=== PATIENT | female | born 1970 | race Caucasian/White ===

== ENCOUNTER 2023-02-16 10:48 | Outpatient (OUT) | payer OTHER, SELFPAY ==
--- NOTE | 2023-02-16 | XR_ITS ---
The [address] [address] Patient Name: MEGHANA KEY MRN: [id number] date: 1970 Sex: F Assigned Patient Location: [facility] Current Patient Location: [facility] Accession/Order Number: [id number] Exam Date: 02/16/2023 10:50 Report Date: 02/16/2023 23:48 At the request of: TAMI HODGE Procedure: XR foot LT min 3V PROCEDURE: XR foot LT min 3V HISTORY: LEFT FOOT PAIN COMPARISON: None. FINDINGS: BONES:Mild bone hypertrophy along medial aspect of head of first metatarsal. Mild narrowing of the first metatarsophalangeal joint. SOFT TISSUES:No visible soft tissue swelling. EFFUSION:None visible. OTHER: Negative. XR/XR foot LT min 3V IMPRESSION: 1. Mild bunion formation consistent with patient history. 2. Mild degenerative changes of the first metatarsophalangeal joint. Electronically authenticated by: MASOOD COOK Date: 02/16/2023 23:48
== END 2023-02-16 10:49 | disposition home or self-care (01) ==
PROVIDERS: PCP Personal Emergency Response Attendant; Visit Provider Podiatrist Foot & Ankle Surgery
DX: M21.612 Bunion of left foot (principal)
CPT/HCPCS: 73630

== ENCOUNTER 2023-02-18 07:13 | Outpatient (OUT) | payer OTHER, SELFPAY ==
--- NOTE | 2023-02-18 08:20 | CA_ITS ---
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 (Right MYLENE 1.22, Left MYLENE 1.07) Electronically Signed On 02-19-2023 7:06:57 EST by EVI GRIFFIN
== END 2023-02-18 07:14 | disposition home or self-care (01) ==
LOC: CARD 07:16
PROVIDERS: PCP Personal Emergency Response Attendant; Visit Provider Podiatrist Foot & Ankle Surgery
DX: R09.89 Other specified symptoms and signs involving the circulatory and respiratory systems (principal)
CPT/HCPCS: 93923

== ENCOUNTER 2023-03-05 13:24 | Outpatient (OUT) | payer OTHER, SELFPAY ==
--- NOTE | 2023-03-05 13:25 | XR_ITS ---
The [address] [address] Patient Name: MEGHANA KEY MRN: [id number] date: 1970 Sex: F Assigned Patient Location: [facility] Current Patient Location: [facility] Accession/Order Number: [id number] Exam Date: 03/05/2023 14:22 Report Date: 03/05/2023 15:58 At the request of: TAMI HODGE Procedure: XR chest 2V EXAM: XR chest 2V HISTORY: Preop exam COMPARISON: 06/17/2022 TECHNIQUE: Upright PA and lateral chest x-ray FINDINGS: Pleural] changes are seen at the right apex secondary to prior surgery. [place] or sutures are present. A small amount of pleural and parenchymal scarring is also seen at the right lung base. No acute infiltrate, effusion or pneumothorax is identified. The osseous structures are grossly intact. XR/XR chest 2V IMPRESSION: Remote postsurgical changes are seen at the right apex and chronic changes are noted at the right lung base. There is no evidence of a focal infiltrate or cardiac decompensation, and the overall appearance of the chest is essentially unchanged. Electronically authenticated by: TAMI CHIRINOS Date: 03/05/2023 15:58
--- NOTE | 2023-03-05 13:25 | ECG_ITS ---
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
--- NOTE | 2023-03-05 14:16 | P.GSHP_ITS ---
History of Present Illness History of Present Illness Chief complaint: halux valgus left foot, halux rigidous Narrative: Patient presents for preadmission testing. Please see HPI from Dr. Lopez dated 02/16/2023. Review of Systems ROS Narrative Please see ROS from Dr. Lopez dated 02/16/2023. [facility] Medical History (Updated 03/05/23 @ 13:50 by Harleen Holden NP) Admission for pleural drainage tube placement ?Z46.82 - Encounter for fitting and adjustment of non-vascular catheter (ICD- 10) Anemia ?D64.9 - Anemia, unspecified (ICD-10) Anxiety ?F41.9 - Anxiety disorder, unspecified (ICD-10) Arthritis ?M19.90 - Unspecified osteoarthritis, unspecified site (ICD-10) Back pain ?M54.9 - Dorsalgia, unspecified (ICD-10) Chronic obstructive pulmonary disease ?J44.9 - Chronic obstructive pulmonary disease, unspecified (ICD-10) Coronary artery disease ?I25.10 - Atherosclerotic heart disease of [place] coronary artery without angina pectoris (ICD-10) Coronary vasospasm ?I20.1 - Angina pectoris with documented spasm (ICD-10) Costochondritis ?M94.0 - Chondrocostal junction syndrome [[place]] (ICD-10) COVID-19 ?U07.1 - COVID-19 (ICD-10) Depression ?F32.A - Depression, unspecified (ICD-10) Dyspnea on exertion ?R06.09 - Other forms of dyspnea (ICD-10) Electronic cigarette use ?Z78.9 - Other specified health status (ICD-10) GERD (gastroesophageal reflux disease) ?K21.9 - Gastro-esophageal reflux disease without esophagitis (ICD-10) Hallux rigidus ?M20.20 - Hallux rigidus, unspecified foot (ICD-10) Hallux valgus ?M20.10 - Hallux valgus (acquired), unspecified foot (ICD-10) Hypertension ?I10 - Essential (primary) hypertension (ICD-10) Irregular heart beat ?I49.9 - Cardiac arrhythmia, unspecified (ICD-10) Palpitation ?R00.2 - Palpitations (ICD-10) Spontaneous pneumothorax (03/2021) ?J93.83 - Other pneumothorax (ICD-10) Surgical History (Updated 03/05/23 @ 13:50 by Harleen Holden NP) History of cardiac catheterization ?Z98.890 - Other specified postprocedural states (ICD-10) History of foot surgery ?Z98.890 - Other specified postprocedural states (ICD-10) History of hysterectomy ?Z90.710 - Acquired absence of both cervix and uterus (ICD-10) History of spinal surgery ?Z98.890 - Other specified postprocedural states (ICD-10) Family History (Updated 03/05/23 @ 13:50 by Harleen Holden NP) Other Family history of DVT Family history of hypertension Family history of liver cancer Family history of myocardial infarction Family history of stroke Social History (Updated 03/05/23 @ 13:43 by Harleen Holden NP) Within the past year, how often did you have a drink containing alcohol: 2-3 times a week Smoking status: Current every day smoker What tobacco products do you use: cigarettes Pack-years instructions: Please document either packs per day or cigarettes per day in order for pack years to calculate correctly. If using both packs per day and cigarettes per day, please make sure that they denote the same thing. If they differ, pack- years will calculate based on packs per day. Packs Per Day Cigarettes Per Day 1/4 of a pack 5 1/2 a pack 10 3/4 of a pack 15 1 pack 20 1.5 pack 30 2 packs 40 2.5 packs 50 3 packs 60 Packs per day: 1 Years smoked: 18 Smoking pack-years: 18.00 Do you use any of these nicotine containing products: e-cigarettes and vaping products Non-prescribed substance use: cannabis (any form) Highest level of school completed/degree received: high school graduate Meds Home Medications and Allergies Home Medications Medication Instructions Recorded Confirmed Type clonazepam 0.5 mg tablet (Klonopin) 0.5 mg PO BID 03/05/23 03/05/23 History sertraline 25 mg tablet (Zoloft) 25 mg PO DAILY 03/05/23 03/05/23 History Allergies Allergy/AdvReac Type Severity Reaction Status Date / Time codeine Allergy Hives Verified 03/05/23 13:41 Exam Narrative Exam Narrative: Constitutional: Awake, alert, comfortable, well-appearing, nontoxic, interactive, vital signs as charted Head: Normocephalic, atraumatic Neck: Supple, normal appearance, normal range of motion, no meningeal signs, no lymphadenopathy Respiratory: No respiratory distress, breath sounds clear Cardiovascular: Regular rate and rhythm, strong and regular heart tones Neuro: No neurological deficits, normal sensation Psychiatric: Oriented ?3, normal affect Assessment and Plan Assessment and Plan (1) Hallux rigidus: (2) Hallux valgus: Plan Left 1st MPJ fusion, bone graft scheduled with Dr. Lopez 03/15/2023.
[2023-03-05 14:29] LABS: BUN Creatinine Ratio 16.7; Carbon Dioxide 26.7 mmol/L (21.0-32.0); Chloride 101 mmol/L (98-107); Estimated GFR (African America >60 (>=60); Estimated GFR (Non-African Ame >60 (>=60); Glucose 100 mg/dL (74-106); Potassium 3.7 mmol/L (3.5-5.1); Sodium 137 mmol/L (136-145)
[2023-03-05 14:34] LABS: Basophils Absolute Auto 0.1 10^3/uL (0.0-0.1); Basophils Percent Auto 0.7 % (0.2-2.0); Eosinophils Absolute Auto 0.1 10^3/uL (0.0-0.7); Eosinophils Percent Auto 1.3 % (0.9-7.0); Immature Granulocytes Abs Auto 0.03 10^3/uL (0.00-0.03); Immature Granulocytes Pct Auto 0.4 % (0.0-0.5); Lymphocytes Absolute Auto 2.5 10^3/uL (1.2-3.8); Lymphocytes Percent Auto 29.7 % (20.5-60.0); Mean Corpuscular HGB Conc 33.3 g/dL (29.9-35.2); Mean Corpuscular Hemoglobin 32.7 pg (26.7-34.0); Mean Corpuscular Volume 98.1 fL (81.0-99.0); Mean Platelet Volume 9.8 fL (9.5-13.5); Monocytes Percent Auto 11.7 % (1.7-12.0); Neutrophils Absolute Auto 4.7 10^3/uL (1.4-6.5); Neutrophils Percent Auto 56.2 % (43.0-75.0); Platelet Count 337 10^3/uL (150-450); Red Blood Count 4.28 10^6/uL (4.20-5.40); Red Cell Distribution Width 13.7 % (11.0-15.0); White Blood Count 8.4 10^3/uL (4.0-11.0)
[2023-03-05 14:42] LABS: INR 0.93; Partial Thromboplastin Time 29.5 sec (22.3-36.2); Prothrombin Time 9.9 sec (9.0-11.6)
== END 2023-03-05 13:25 | disposition home or self-care (01) ==
LOC: PST 13:24
PROVIDERS: Visit Provider Podiatrist Foot & Ankle Surgery
DX: Z01.810 Encounter for preprocedural cardiovascular examination (principal); Z01.812 Encounter for preprocedural laboratory examination; M20.12 Hallux valgus (acquired), left foot; M20.22 Hallux rigidus, left foot
CPT/HCPCS: 71046; 80048; 85025; 85610; 85730; 93005; G0463

== ENCOUNTER 2023-03-16 09:58 | Emergency (ER) | payer OTHER, SELFPAY ==
[2023-03-16 10:01] VITALS: BP 145/95; PULSE 100; RESP 18; TEMP 36.9; O2SAT 100; BMI 23.3
--- NOTE | 2023-03-16 10:46 | ED.EYEPROB1 ---
HPI - Eye Problem General Chief complaint: Eye Problems Stated complaint: EYE PAIN Time Seen by Provider: 03/16/23 10:01 Source: patient Mode of arrival: walk-in Limitations: no limitations History of Present Illness HPI Narrative: developed pain, redness and tearing in both eyes yesterday. No URI symptoms such as ear pain, nasal congestion or sore throat. No fever or chills. She wears glasses but does not wear contact lenses. Related Data Home Medications Medication Instructions Recorded Confirmed clonazepam 0.5 mg tablet (Klonopin) 0.5 mg PO BID 03/05/23 03/05/23 sertraline 25 mg tablet (Zoloft) 25 mg PO DAILY 03/05/23 03/05/23 Previous Rx's Medication Instructions Recorded tobramycin 0.3 %-dexamethasone 0.1 1 drp ophthalmic (eye) Q4H 7 days 03/16/23 % eye drops,suspension #5 mL Allergies Allergy/AdvReac Type Severity Reaction Status Date / Time codeine Allergy Hives Verified 03/16/23 10:01 [facility] Medical History (Updated 03/16/23 @ 10:45 by Demetrio Chris) Arthritis ?M19.90 - Unspecified osteoarthritis, unspecified site (ICD-10) Back pain ?M54.9 - Dorsalgia, unspecified (ICD-10) Anemia ?D64.9 - Anemia, unspecified (ICD-10) Depression ?F32.A - Depression, unspecified (ICD-10) Anxiety ?F41.9 - Anxiety disorder, unspecified (ICD-10) COVID-19 ?U07.1 - COVID-19 (ICD-10) Electronic cigarette use ?Z78.9 - Other specified health status (ICD-10) Chronic obstructive pulmonary disease ?J44.9 - Chronic obstructive pulmonary disease, unspecified (ICD-10) GERD (gastroesophageal reflux disease) ?K21.9 - Gastro-esophageal reflux disease without esophagitis (ICD-10) Dyspnea on exertion ?R06.09 - Other forms of dyspnea (ICD-10) Irregular heart beat ?I49.9 - Cardiac arrhythmia, unspecified (ICD-10) Coronary artery disease ?I25.10 - Atherosclerotic heart disease of [place] coronary artery without angina pectoris (ICD-10) Hypertension ?I10 - Essential (primary) hypertension (ICD-10) Hallux rigidus ?M20.20 - Hallux rigidus, unspecified foot (ICD-10) Hallux valgus ?M20.10 - Hallux valgus (acquired), unspecified foot (ICD-10) Palpitation ?R00.2 - Palpitations (ICD-10) Costochondritis ?M94.0 - Chondrocostal junction syndrome [[place]] (ICD-10) Coronary vasospasm ?I20.1 - Angina pectoris with documented spasm (ICD-10) Spontaneous pneumothorax (03/2021) ?J93.83 - Other pneumothorax (ICD-10) Admission for pleural drainage tube placement ?Z46.82 - Encounter for fitting and adjustment of non-vascular catheter (ICD-10) Surgical History (Updated 03/05/23 @ 13:50 by Harleen Holden NP) History of cardiac catheterization ?Z98.890 - Other specified postprocedural states (ICD-10) History of foot surgery ?Z98.890 - Other specified postprocedural states (ICD-10) History of spinal surgery ?Z98.890 - Other specified postprocedural states (ICD-10) History of hysterectomy ?Z90.710 - Acquired absence of both cervix and uterus (ICD-10) Family History (Updated 03/05/23 @ 13:50 by Harleen Holden NP) Other Family history of DVT Family history of hypertension Family history of liver cancer Family history of myocardial infarction Family history of stroke Social History (Updated 03/05/23 @ 13:43 by Harleen Holden NP) Within the past year, how often did you have a drink containing alcohol: 2-3 times a week Smoking status: Current every day smoker What tobacco products do you use: cigarettes Packs per day: 1 Years smoked: 18 Smoking pack-years: 18.00 Do you use any of these nicotine containing products: e-cigarettes and vaping products Non-prescribed substance use: cannabis (any form) Highest level of school completed/degree received: high school graduate Exam Narrative Exam Narrative: General: The patient appears well and in no apparent distress. Patient is resting comfortably on cart. Skin: Warm, dry, no pallor noted. Head: Normocephalic, atraumatic Neck: Supple, trachea mid-line, no tenderness, no lymphadenopathy Eye: Normal extraocular motion without associated pain. Pupils equal, round and reactive to light. Conjunctival injection noted bilaterally. No swelling of the upper/lower eyelid. tearing is clear - non-purulent. No evidence of hyphema, preseptal cellulitis or orbital cellulitis. Ears, Nose, Mouth, and Throat: oral mucosa is moist, ears clear, no nasal mucosal hyperthrophy Respiratory: Patient is in no distress Neurological: A&O x4, normal speech Psychiatric: Cooperative and interactive. Constitutional Vital Signs, click to edit/add: Last Vital Signs Temp 98.5 F 03/16/23 10:01 Pulse 100 H 03/16/23 10:01 Resp 18 03/16/23 10:01 BP 145/95 H 03/16/23 10:01 Pulse Ox 100 03/16/23 10:01 Course Vital Signs Vital signs: Vital Signs Temperature 98.5 F 03/16/23 10:01 Pulse Rate 100 H 03/16/23 10:01 Respiratory Rate 18 03/16/23 10:01 Blood Pressure 145/95 H 03/16/23 10:01 Pulse Oximetry 100 03/16/23 10:01 Temperature 98.5 F 03/16/23 10:01 Pulse Rate 100 H 03/16/23 10:01 Respiratory Rate 18 03/16/23 10:01 Blood Pressure 145/95 H 03/16/23 10:01 Pulse Oximetry 100 03/16/23 10:01 MDM - Eye Problem MDM Narrative Medical decision making narrative: Patient discharged home with prescription for tobradex solution - instructed to see her eye physician for follow up Discharge Plan Discharge Chief Complaint: Eye Problems Clinical Impression: Bacterial conjunctivitis Patient Disposition: Home, Self-Care Time of Disposition Decision: 10:45 Prescriptions / Home Meds: New tobramycin-dexamethasone 0.3-0.1 % drops,suspension 1 drp ophthalmic (eye) Q4H 7 Days Qty: 5 0RF Rx Instructions: apply to both eyes No Action clonazepam [Klonopin] 0.5 mg tablet 0.5 mg PO BID sertraline [Zoloft] 25 mg tablet 25 mg PO DAILY Instructions: Conjunctivitis (ED) Stand Alone Forms: Portal Instructions Referrals: BJORN CALDWELL [Physician] - As soon as possible BJORN GRAFF [Physician] - As soon as possible
== END 2023-03-16 10:55 | disposition home or self-care (01) ==
PROVIDERS: Emergency Provider Emergency Medicine
DX: H10.9 Unspecified conjunctivitis (principal); Z79.899 Other long term (current) drug therapy; M19.90 Unspecified osteoarthritis, unspecified site; F32.A Depression, unspecified; F41.9 Anxiety disorder, unspecified; Z86.16 Personal history of COVID-19; F17.290 Nicotine dependence, other tobacco product, uncomplicated; J44.9 Chronic obstructive pulmonary disease, unspecified; K21.9 Gastro-esophageal reflux disease without esophagitis; I25.10 Atherosclerotic heart disease of native coronary artery without angina pectoris; I10 Essential (primary) hypertension; Z90.710 Acquired absence of both cervix and uterus; Z98.890 Other specified postprocedural states; F12.90 Cannabis use, unspecified, uncomplicated
CPT/HCPCS: 99283

== ENCOUNTER 2023-04-28 08:59 | Outpatient (OUT) | payer OTHER, SELFPAY ==
--- OUTSIDE RECORDS SUMMARY | 2023-04-28 09:05 | XMS_ITS | CCD ---
Author Name Unknown Address [address] [facility] [address] [place] [address] Organization [facility] Care Team Providers Care Residential Specialist Name Role Phone None, No PCP Unavailable Unavailable Unavailable Unavailable NO FAMILY, PHYSICIAN Primary Care Provider RADHA YuenC Jes Kaur Attending Pr ovider RIVER GIMENEZ Admitting Unavailable RIVER GIMENEZ Attending Unavailable DR ROCÍO NONE LISTED Primary Care UnavailRIVER Cason Consulting Unavailable NICK MARIE Consulting Unavailable [place], MsShyanne Lainez Attending Curtis Peter, Ms. Nadia Lainez Referring Curtis Vasquez, Ms. Jes Kaur Primary Care Unavailable Rome, Ms. Nadia Lainez Attending Curtis Vasquez, Ms. Jes Kaur Primary Care Unavailable [place], Nadia Tanvi Lainez Attending Tanya Colby Unavailable Loretta Javier Unavailable JES VASQUEZ Primary Care Physician Ramone Garcia Attending UnavailRamone Mendez Admitting Unavaila JES Ramesh Referring Unavailab le Jes Vasquez Admitting U Jes Belcher Attending U navashlie NO FAMILY, PHYSICIAN Primary Care Unavailable Jes Vasquez Attending U navailmadeleine NO FAMILY, PHYSICIAN Primary Care Unavailable Jes Vasquez Admitting U navailmadeleine Unavailable Unavailable Unavailable Allergies Allergy Classification Reported Allergen(s) Allergy Type Date of Onset Reaction(s) Facility (14 sources) Norm; Translations: [codeine] Drug Allergy 09-16-2012 hives, Eruption of skin present [facility] Medications Current Medications Medication Drug Class(es) Dates Sig (Normalized) Sig (Original) aspirin 81 mg delayed release oral tablet (10 sources) Platelet Aggregation Inhibitor, Nonsteroidal Anti-inflammatory Drug Start: 03-22-2023 take 1 tablet by mouth once daily aspirin 81 mg Oral EC Tab 81 mg = 1 tab(s), Oral, Daily, Refills(s) 0 Start Date: 03/22/23 Status: Ordered Start: 04-04-2021 take 81 mg by mouth once daily Aspirin Active 81 MG PO Daily April 04, 2021 1:00am take 1 tablet by mouth once brandi y Aspirin Low Dose 81 MG CHEW ONE TABLET BY MOUTH ONCE DAILY Oral for 30 Days Not-Taking atorvastatin 40 mg oral tablet (10 sources) HMG-CoA Reductase Inhibitor Start: 03-22-2023 take 1 tablet by mouth once daily atorvastatin 40 mg Tab 40 mg = 1 tab(s), Oral, Daily, # 30 tab(s), Refills(s) 3, Pharmacy: [facility] 1155, 164, cm, 03/22/23 13:24:00 EST, Height/Length Dosing, 64.7, kg, 03/22/23 13:24:00 EST, Weight Dosing Start Date: 03/22/23 Status: Ordered Start: 04-04-2021 take 20 mg by mouth once daily in the evening Atorvastatin Active 20 MG PO Every evening April 04, 2021 1:00am busPIRone hydrochloride 15 mg oral tablet (6 sources) Start: 01-17-2020 take 1 mg by mouth twice daily busPIRone 15 mg Tab mg tab(s), Oral, BID, Refills(s) 0 Start Date: 01/17/20 Status: Ordered Start: 10-19-2019 End: 03-24-2021 take 15 mg by mouth three times daily Buspirone Discontinued 15 MG PO Three times daily October 19, 2019 12:57pm March 24, 2021 4:09pm Start: 01-09-2019 End: 10-19-2019 take 10 mg by mouth three times daily Buspirone Discontinued 10 MG PO Three times daily January 09, 2019 12:00am October 19, 2019 12:57pm Travon gracia clonazePAM 0.5 mg oral tablet (2 sources) Benzodiazepine Start: 03-22-2023 take 0.25 mg by mouth twice daily Klonopin 0.5 mg Tab 0.25 mg = 0.5 tab(s), Oral, BID, Refills(s) 0 Start Date: 03/22/23 Status: Ordered cyclobenzaprine hydrochloride 5 mg oral tablet (5 sources) Muscle Relaxant Start: 10-19-2019 End: 03-24-2021 take 1 mg by mouth three times daily cyclobenzaprine 5 mg Tab mg tab(s), Oral, TID, Refills(s) 0 Start Date: 01/17/20 Status: Ordered Flexeril Not-Aguila ing dicyclomine hydrochloride 20 mg oral tablet (2 sources) Anticholinergic Start: 01-30-2020 take 1 tablet by mouth every eight hours Dicyclomine HCl 20 MG 1 tablet Orally Three times a day for 30 day(s) Jan, Active doxycycline monohydrate 100 mg oral capsule (1 source) Tetracycline-class Drug Start: 12-15-2022 take 1 capsule by mouth every twelve hours Doxycycline Monohydrate 100 MG 1 capsule Orally every 12 hrs for 10 days Dec, Active ferrous sulfate 324 mg delayed release oral tablet (1 source) Start: 04-04-2021 take 324 mg by mouth twice daily Ferrous Sulfate Active 324 MG PO Twice daily 60 April 04, 2021 1:00am gabapentin 300 mg oral capsule (8 sources) Anti-epileptic Agent Start: 05-26-2021 take 1 capsule by mouth once daily Gabapentin (Neurontin) 300 mg capsule Active 300 MG PO Daily 1 May 26, 2021 1:00am Day one of therapy Start: 05-26-2021 take 2 capsules by m outh twice daily Gabapentin (Neurontin) 300 mg capsule Active 300 MG PO Twice daily 2 May 26, 2021 1:00am Day two of therapy Start: 05-26-2021 take 3 capsules by m outh three times daily Gabapentin (Neurontin) 300 mg capsule Active 300 MG PO Three times daily 60 May 26, 2021 1:00am Start TID dosing on day three Start: 06-24-2020 take 1 capsule by mo uth three times daily Gabapentin 300 MG Oral Capsule TAKE 1 CAPSULE BY ORAL ROUTE 3 TIMES EVERY DAY Quantity: 60 Refills: 0 Ordered: 02-Aug-2020 DO Start : 24-Jun-2020 Active Start: 01-17-2020 take 1 mg by mouth t hree times daily gabapentin 100 mg Cap mg cap(s), Oral, TID, Refills(s) 0 Start Date: 01/17/20 Status: Ordered Start: 01-09-2019 End: 10-19-2019 take 300 mg by mouth three times daily Gabapentin Discontinued 300 MG PO Three times daily 90 January 09, 2019 12:00am October 19, 2019 12:57pm Motrin (5 sources) Nonsteroidal Anti-inflammatory Drug Start: 01-17-2020 take 1 mg by mouth every six hours Motrin IB mg, Oral, q6hr, Refills(s) 0 Start Date: 01/17/20 Status: Ordered Start: 10-19-2019 End: 03-24-2021 take 800 mg by mouth every six hours Ibuprofen Discontinued 800 MG PO Q6H October 19, 2019 12:00am March 24, 2021 4:09pm Motrin Not-Takin g 24 hr isosorbide mononitrate 30 mg extended release oral tablet (10 sources) Nitrate Vasodilator Start: 03-22-2023 take 1 tablet by mouth once daily in the morning isosorbide mononitrate 30 mg ER Tab 30 mg = 1 tab(s), Oral, qAM, # 30 tab(s), Refills(s) 3, Pharmacy: [facility] 115[facility], 164, cm, 03/22/23 13:24:00 EST, Height/Length Dosing, 64.7, kg, 03/22/23 13:24:00 EST, Weight Dosing Start Date: 03/22/23 Status: Ordered Start: 04-04-2021 take 60 mg by mouth once daily Isosorbide Mononitrate Active 60 MG PO Daily April 04, 2021 1:00am lamoTRIgine 25 mg chewable tablet (5 sources) Mood Stabilizer, Anti-epileptic Agent Start: 01-17-2020 take 1 mg by mouth twice daily lamotrigine 25 mg oral tablet, dispersible mg tab(s), Oral, BID, Refills(s) 0 Start Date: 01/17/20 Status: Ordered Start: 10-19-2019 End: 03-24-2021 take 1 tablet by mouth once daily Lamotrigine (Lamictal) 100 mg Tablet Discontinued 100 MG PO Daily October 19, 2019 12:00am March 24, 2021 4:09pm LaMICtal Not-Aguila ing methylPREDNISolone 4 mg oral tablet (1 source) Corticosteroid Start: 12-15-2022 methylPREDNISolone 4 MG as directed Orally for daily dose take half with breakfast, half with dinner for 6 days Dec, Active nitroglycerin 0.4 mg sublingual tablet (6 sources) Nitrate Vasodilator Start: 04-04-2021 Nitroglycerin (Nitrostat) 0.4 mg tablet, sublingual Active 0.4 MG SUBLINGUAL Q5M April 04, 2021 1:00am do not exceed 3 doses per episode olanzapine (5 sources) Atypical Antipsychotic Start: 01-17-2020 olanzapine Refills(s) 0 Start Date: 01/17/20 Status: Ordered Start: 01-09-2019 End: 03-24-2021 take 10 mg by mouth once daily at bedtime Olanzapine Discontinued 10 MG PO Daily at bedtime January 09, 2019 12:00am March 24, 2021 4:09pm OLANZapine Not-T aking oxybutynin chloride 5 mg oral tablet (2 sources) Cholinergic Muscarinic Antagonist Start: 02-08-2020 take 2 tablets by mouth at bedtime as needed oxybutynin 5 mg Tab 10 mg = 2 tab(s), Oral, Bedtime, PRN Other (see comment), Nocturia, # 60 tab(s), Refills(s) 3, Pharmacy: [facility] 1155, 165, cm, 01/17/20 11:18:00 EDT, Height/Length Dosing, 88, kg, 01/17/20 11:18:00 EDT, Weight Dosing Start Date: 02/08/20 Status: Ordered pantoprazole 40 mg extended release oral tablet (2 sources) Proton Pump Inhibitor Start: 01-17-2020 take 1 mg by mouth once daily pantoprazole 40 mg Oral EC Tab mg tab(s), Oral, Daily, Refills(s) 0 Start Date: 01/17/20 Status: Ordered Prazosin (3 sources) alpha-Adrenergic Malinda Start: 01-17-2020 prazosin Oral, TID, Refills(s) 0 Start Date: 01/17/20 Status: Ordered Start: 10-19-2019 End: 12-20-2021 Prazosin Discontinued 1 MG P O As Directed October 19, 2019 12:00am March 24, 2021 4:09pm sertraline 100 mg oral tablet (2 sources) Serotonin Reuptake Inhibitor Start: 03-22-2023 take 1 tablet by mouth once daily Zoloft 100 mg Tab 100 mg = 1 tab(s), Oral, Daily, # 30 tab(s), Refills(s) 0 Start Date: 03/22/23 Status: Ordered Completed/Discontinued Medications Medication Drug Class(es) Dates Sig (Normalized) Sig (Original) [id number] actuat albuterol 0.09 mg/actuat metered dose inhaler (4 sources) beta2-Adrenergic Agonist Start: 10-14-2022 take 2 puff(s) by inhalation four times daily as needed Albuterol Sulfate HFA 108 (90 Base) MCG/ACT 2 puffs Inhalation 4 times a day prn Oct, Not-Taking Start: 06-24-2020 take 2 puff(s) by in halation every four to six hours as needed Albuterol Sulfate HFA 108 (90 Base) MCG/ACT Inhalation Aerosol Solution INHALE 2 PUFF BY INHALATION ROUTE EVERY 4 - 6 HOURS NEEDED Quantity: 18 Refills: 0 Ordered: 24-Jun-2020 DO Start : 24-Jun-2020 Active Start: 06-24-2020 take 2 puff(s) by in halation every four to six hours as needed Albuterol Sulfate HFA 108 (90 Base) MCG/ACT Inhalation Aerosol Solution INHALE 2 PUFF BY INHALATION ROUTE EVERY 4 - 6 HOURS NEEDED Quantity: 18 Refills: 0 Ordered: 24-Jun-2020 DO Start : 24-Jun-2020 Active amoxicillin 875 mg / clavulanate 125 mg oral tablet (2 sources) Penicillin-class Antibacterial Start: 10-14-2022 take 1 tablet by mouth every twelve hours Amoxicillin-Pot Clavulanate 875-125 MG 1 tablet Orally every 12 hrs for 10 day(s) Oct, Not-Taking 24 hr dilTIAZem hydrochloride 180 mg extended release oral capsule (5 sources) Calcium Channel Malinda Start: 06-24-2022 take 1 capsule by mouth once daily dilTIAZem HCl ER 180 MG Oral Capsule Extended Release 24 Hour TAKE 1 CAPSULE ONCE DAILY. Quantity: 90 Refills: 3 Ordered: 24-Jun-2022 Nadia Mancuso Start : 24-Jun-2022 Active Start: 06-02-2021 take 1 capsule by [facility] once daily dilTIAZem HCl ER Coated Beads 120 MG Oral Capsule Extended Release 24 Hour TAKE 1 CAPSULE ONCE DAILY. Quantity: 30 Refills: 3 Ordered: 02-Jun-2021 LainezNadia Desai Start : 02-Jun-2021 Active esomeprazole 40 mg delayed release oral capsule (4 sources) Proton Pump Inhibitor Start: 06-24-2022 take 1 capsule by mouth once daily Esomeprazole Magnesium 40 MG Oral Capsule Delayed Release Take one capsule daily Quantity: 30 Refills: 0 Ordered: 13-Aug-2022 Nadia Mancuso Start : 24-Jun-2022 Active lisinopril 10 mg oral tablet (4 sources) Angiotensin Converting Enzyme Inhibitor Lisinopril 10 MG Oral for 30 Days Not-Taking loratadine 10 mg oral tablet (1 source) Start: 01-09-2019 End: 10-19-2019 take 10 mg by mouth once daily in the morning Loratadine Discontinued 10 MG PO Every morning January 09, 2019 12:00am October 19, 2019 12:57pm 24 hr nicotine 0.875 mg/hr transdermal system (3 sources) Cholinergic Nicotinic Agonist Start: 06-02-2021 apply 1 dose transdermal route once daily EQ Nicotine 21 MG/24HR Transdermal Patch 24 Hour APPLY 1 PATCH DAILY DIRECTED. Quantity: 30 Refills: 1 Ordered: 02-Jun-2021 LainezNadia Desai Start : 02-Jun-2021 Active Start: 01-09-2019 End: 10-19-2019 Nicotine Discontinued 1 EACH TRANSDERML Daily 10 09January 09, 2019 12:00am October 19, 2019 12:57pm predniSONE 20 mg oral tablet (2 sources) Start: 10-14-2022 take 1 tablet by mouth every twelve hours predniSONE 20 MG 1 tablet Orally bid for 5 day(s) Oct, Not-Taking Problems Active Problems Problem Classification Problem Date Documented Da te Episodic/Chronic Abdominal pain (4 sources) Abdominal pain; Translations: [Unspecified abdominal pain] 01-17-2020 Episodic Adjustment disorders (1 source) Complicated grieving; Translations: [Adjustment disorder with depressed mood] 01-06-2019 Chronic Adjustment disorders (1 source) Complicated grieving; Translations: [Complicated bereavement] Episodic Anxiety disorders (2 sources) Anxiety 03-18-2023 Chronic Cardiac dysrhythmias (5 sources) Palpitations; Translations: [Palpitations] Episodic Chronic obstructive pulmonary disease and bronchiectasis (1 source) Chronic obstructive lung disease; Translations: [Chronic obstructive pulmonary disease, unspecified] 03-25-2021 Chronic Chronic obstructive pulmonary disease and bronchiectasis (1 source) Bronchitis, not specified as acute or chronic Episodic Complications of surgical procedures or medical care (1 source) Subcutaneous emphysema resulting from a procedure; Translations: [Emphysema (subcutaneous) resulting from a procedure, initial encounter] 03-25-2021 Episodic Coronary atherosclerosis and other heart disease (9 sources) Coronary atherosclerosis; Translations: [Coronary atherosclerosis of [place] coronary artery] 04-03-2021 Chronic Disorders of lipid metabolism (5 sources) Mixed hyperlipidemia; Translations: [Mixed hyperlipidemia] Chronic Essential hypertension (8 sources) Benign hypertension; Translations: [Benign essential hypertension] Onset: 06-19-2022 03-18-2023 Chronic Genitourinary symptoms and ill-defined conditions (4 sources) Incontinence; Translations: [Urge incontinence of urine] 01-17-2020 Chronic Genitourinary symptoms and ill-defined conditions (11 sources) Blood in urine; Translations: [Microscopic hematuria] Onset: 04-01-2023 01-17-2020 Episodic Mood disorders (5 sources) Major depressive disorder; Translations: [Major depressive disorder, single episode, unspecified] 01-06-2019 Chronic Other bone disease and musculoskeletal deformities (3 sources) Costal chondritis; Translations: [Tietze's disease] Episodic Other circulatory disease (5 sources) Cardiac function test normal; Translations: [Normal cardiac ejection fraction] Episodic Other gastrointestinal disorders (2 sources) Diarrhea; Translations: [Diarrhea, unspecified] Episodic Other nutritional; endocrine; and metabolic disorders (5 sources) Overweight in adulthood with body mass index of 25 or more but less than 30; Translations: [Overweight] Episodic Other upper respiratory infections (1 source) Sinusitis; Translations: [Chronic sinusitis, unspecified] 01-06-2019 Chronic Other upper respiratory infections (5 sources) Sinusitis; Translations: [Acute pharyngitis, unspecified] Episodic Pleurisy; pneumothorax; pulmonary collapse (6 sources) Pneumothorax; Translations: [Other pneumothorax] 03-24-2021 Episodic Residual codes; unclassified (1 source) Tobacco user; Translations: [Tobacco use] 03-24-2021 Episodic Residual codes; unclassified (3 sources) Body mass index 20-24 - normal; Translations: [Body Mass Index between 19-24, adult] Episodic Residual codes; unclassified (1 source) Acquired absence of both cervix and uterus; Translations: [ACQUIRED ABSENCE BOTH CERVIX AND UTERUS] Onset: 06-19-2022 Episodic Spondylosis; intervertebral disc disorders; other back problems (2 sources) Low back pain 02-08-2020 Episodic Substance-related disorders (11 sources) Polysubstance abuse ; Translations: [Smoker] 01-06-2019 Chronic Comment on above: 1 pack per daily.; Added secondary to d ocumentation in Social History. Suicide and intentional self-inflicted injury (2 sources) Suicidal thoughts; Translations: [Suicidal ideations] 01-05-2019 Episodic Unclassified (2 sources) Finding of sensation of bladder 02-08-2020 Urinary tract infections (2 sources) Chronic interstitial cystitis 02-08-2020 Chronic Past or Other Problems Problem Classification Problem Date Documented Date Episodic/Chronic Chronic obstructive pulmonary disease and bronchiectasis (2 sources) Chronic obstructive pulmonary disease and bronchiectasis 03-18-2023 Nonspecific chest pain (6 sources) Chest wall pain; Translations: [Other chest pain] Onset: 06-17-2022 05-26-2021 Episodic Unclassified (1 source) Contact with and (suspected) exposure to covid-19 Z20.822 Unclassified (2 sources) Bipolar (qualifier value) 03-18-2023 Results Test Name Value Interpretation Reference Range Facility Heart and Vascular Office/Cl inic Noteon 04-11-2023 Heart and Vascular Office/Clinic Note Chief Complaint new pt est care - cardiac clearance History of Present Illness Meghana Craig is a 52-year-old female who presents today for a preoperative evaluation. The patient is scheduled for foot surgery on 03/15/2023 and is seeking medical clearance due to a history of a collapsed lung and cardiac issues. She was prescribed nitroglycerin but discontinued it in 2021. She denies experiencing chest pain but does report occasional dyspnea, which she attributes to her COPD. This episode of dyspnea is noticeable even during short walks, such as from the office to the mailbox. She is a smoker. She has a significant family history of CAD. Her mother from a heart attack at the age of 51, and her father five years later. Her recently in 11/2022. Review of Systems PHQ Score Initial Depression Screen Score: 0 SCORE Constitutional: no fever, no sweats, no weakness Skin: no rash, no lesions, no bruising/petechiae ENMT: no sore throat, no congestion, no hoarseness Respiratory: positive for shortness of breath, no cough, no orthopnea, no wheezing Cardiovascular: no chest pain, no palpitations, no edema Gastrointestinal: no nausea, no vomiting, no diarrhea, no GI bleeding Genitourinary: no anuria/oliguria no hematuria Musculoskeletal: no back pain, no trauma Neurologic: no headache, no dizziness, no numbness, no weakness Psychiatric: no sleeping problems, no irritability, no anxiety/depression. Heme/Lymph: no bleeding tendency, no bruising tendency Allergy/Immunologic: no recurrent infections, no impaired immunity Additional ROS info: Except as noted in the above Review of Systems and in the History of Present Illness all other systems have been reviewed and are negative or noncontributory Physical Exam Vitals & Measurements HR: 90(Peripheral) BP: 126/85 SpO2: 99% HT: 65 in HT: 164 cm WT: 64.7 kg WT: 142.34 lb BMI: 24.06 General: alert, no acute distress Skin: warm, dry intact Head: atraumatic, normocephalic Neck: trachea midline, no JVD, no bruit Eye: normal conjunctiva, sclera clear ENMT: oral mucosa moist Cardiovascular: regular rate and rhythm, no murmur, normal peripheral perfusion Respiratory: lungs CTA, respirations non labored Chest wall: no deformity. Gastrointestinal: soft, non-distended, no tenderness, no guarding. Back: no tenderness, normal ROM, normal alignment. Extremities: no edema, no deformity, no trauma Neurological: oriented x 4, LOC appropriate for age, sensation equal & normal bilaterally, speech normal Psychiatric: cooperative, affect appropriate for age, normal judgement, normal psychiatric thoughts. Assessment/Plan Meghana Craig is a 52-year-old female with significant family history of CAD, also with personal history of CAD, moderate right coronary artery stenosis, history of coronary artery spasm, hypertension, and hyperlipidemia. Pre-op exam (Z01.818: Encounter for other preprocedural examination) She has surgery coming up. She has been having some shortness of breath with exertion which she relates to COPD. I am going to add back statin and Imdur for now. We will get a nuclear stress test on the treadmill and a transthoracic echocardiogram. Follow Up: We will see her back in follow-up. Portions of this record may have been created with voice recognition artificial intelligence software, specifically [employer]is, [employer] and or [employer]. Substitutions may have occurred with voice recognition and artificial intelligence software. Documentation services were performed after patient or guardian consented to allow [employer] to record this visit. ANDERSON manpower development specialist and provider reviewed before signing. ANDERSON: Janie Villarreal. Follow-up No qualifying data available Problem List/Past Medical History Ongoing Bipolar depression Feeling of incomplete bladder emptying Flank pain Hematuria Interstitial cystitis Lower back pain Microscopic hematuria Mixed incontinence Nocturia Poor urinary stream Smoker Urge incontinence Urgency of urination Historical Anxiety Bipolar COPD (Chronic Obstructive Pulmonary Disease) Assessment Test scale Coronary spasm Hypertension Substance abuse Procedure/Surgical History Cardiac catheter, Colonoscopy, Hysterectomy, Procedure on back. Medications aspirin 81 mg Oral EC Tab, 81 mg= 1 tab(s), Oral, Daily atorvastatin 40 mg Tab, 40 mg= 1 tab(s), Oral, Daily, 3 refills busPIRone 15 mg Tab, Oral, BID, Not taking cyclobenzaprine 5 mg Tab, Oral, TID, Not taking gabapentin 100 mg Cap, Oral, TID, Not taking isosorbide mononitrate 30 mg ER Tab, 30 mg= 1 tab(s), Oral, qAM, 3 refills Klonopin 0.5 mg Tab, 0.25 mg= 0.5 tab(s), Oral, BID lamotrigine 25 mg oral tablet, dispersible, Oral, BID, Not taking Motrin IB, Oral, q6hr, Not taking olanzapine, Not taking oxybutynin 5 mg Tab, 10 mg= 2 tab(s), Oral, Bedtime, PRN, 3 refi (more content not included)... 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 Bilateral flank pain. COMPARISON: None Estimation of renal size is approximately 9.03 cm on the right and 9.02 cm on the left. No contour deforming mass, shadowing stone or hydronephrosis. Small cyst left kidney. The urinary bladder is partially distended with a volume of 73.24 ml. No shadowing stone or focal lesion. No significant postvoid residual. US/US renal BI IMPRESSION: No acute findings. 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 Supine views of the abdomen and pelvis were obtained. A small amount of air is present within the stomach. There is air and stool at the ascending and rectosigmoid colon. There are nondistended air-containing small bowel loops on the left. The kidneys are partially obscured, greater on the left. No obvious radiopaque renal or ureteral stones are identified. No soft tissue masses are seen. There are postoperative and degenerative changes at the spine. XR/XR KUB IMPRESSION: NO DEFINITE RADIOPAQUE STONES. Impression dictated by: Shae Guzman M.D.04/01/2023 3:38 PM Dictation Location: [facility]- Transcribed By: [facility] 04/01/23 1538 Dictated By: Shae Guzman MD 04/01/23 1536 Signed By: 04/01/23 1538 [facility] Insurance Correspondenceon 05-24-2022 Insurance Correspondence [id number] [id number] [facility] Consent for Treatmenton 03-05 Consent for Treatment [id number]#1 .00TIFF [facility] Physician Orderon 03-22-2023 Physician Order [id number] #1.00TIFF [facility] Referrals Officeon Referrals Office [id number] #1.00TIFF [facility] COVID Quick Testingon 2022 Result Negative [employer] Other Quick Strepon 12-15-2022 S. pyogenes Org specific cx Ql (Throat) Negative MMIS Other Quick Strep [employer] Other COVID + FLU Quick Testingon 10-14-2022 SARS-CoV-2 (COVID-19) RNA AISSATOU+probe Ql (Unsp spec) Negative [employer] Other COVID + FLU Quick Testing Negative [employer] Other Quick Strepon 10-14-2022 S. pyogenes Org specific cx Ql (Throat) Negative MMIS Other Quick Strep [employer] Other Office Visit (Cardiology)on 06-24-2022 Follow-up visit Diagnoses/Problems Assessed Costochondritis (733.6) (M94.0) Palpitations (785.1) (R00.2) For the most part brief and fleeting, seem most consistent with PVC. Coronary artery disease involving [place] coronary artery of [place] heart without angina pectoris (414.01) (I25.10) Mar 2021 Cardiac Cath mRCA (IFR neg @ 0.94) 50% MLAD 20% Cx 10% Hypertension, benign (401.1) (I10) optimal in office Reports elevated at home In ER systolic blood pressure greater than 140 Mixed hyperlipidemia (272.2) (E78.2) Low intensity statin Normal cardiac ejection fraction 03/2021 Cath LVEF 60% Current smoker (305.1) (F17.200) 1 pack per daily. 1/2 pack per day No benefit from patches Body mass index (BMI) of 24.0 to 24.9 in adult (V85.1) (Z68.24) Orders Costochondritis Start: Esomeprazole Magnesium 40 MG Oral Capsule Delayed Release (NexIUM); TAKE 1 CAPSULE ONCE DAILY Hypertension, benign, Palpitations Start: dilTIAZem HCl ER 180 MG Oral Capsule Extended Release 24 Hour; TAKE 1 CAPSULE ONCE DAILY SocHx: Current smoker Tobacco Use Screening; Status:Complete; Done: 24Jun2022 Patient Instructions Please bring all medicines, vitamins, and herbal supplements with you when you come to the office. Prescriptions will not be filled unless you are compliant with your follow up appointments or have a follow up appointment scheduled as per instruction of your physician. Refills should be requested at the time of your visit. PLAN: Through informed decision making process incorporating patients unique circumstances, the following treatment plan will be initiated: 1. Prescription drug management of cardiovascular medication for efficacy, adherence to treatment, side effect assessment and polypharmacy. Current treatment clinically warranted and to continue with following modifications: - Try to use motrin around the clock - Nexium 40mg po daily for one month - Diltiazem 180mg daily (palpitations and blood pressure) 2. Return for follow-up; in the interim, contact the office if new symptoms arise. [employer] 6 weeks Chief Complaint Add on d/t chest pain: 'more chest pain and fluttering' MEGHANA CRAIG is being seen for chest pain and palpitations. Patient presents to the office ambulatory with steady gait. Last evaluated in clinic by myself May 2021. She has been no-show for subsequent follow-up. She is seen today at the request of PCP due to recent emergency department evaluation. Last week she presented to [facility] due to chest pain and dizziness. Initial troponins negative, EKG unremarkable. Patient reports a 1 week history of constant left-sided chest pain that is clearly worse with palpation and movement. It is consistent with costochondritis, she denies any muscle overuse. Not consistent with unstable angina. When I saw her in the office in May 2021 I added diltiazem due to atypical palpitations and blood pressure control. She has now been off of the medication and reports elevated blood pressures at home and fluttering . 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 She has been under increased psychosocial stress due to recent diagnosis of lung cancer and her , her cousin was accidentally killed in a car accident 2 nights ago. She feels like the stress is contributing to her concerns. Reviewed in detail that presenting chest pain symptoms are not consistent with unstable angina. Most consistent with costochondritis versus musculoskeletal discomfort. We will add PPI and short course of [id number] Motrin. Due to blood pressure and palpitations will resume prior dose of diltiazem, symptoms have been quiescent with that treatment. She is in agreement to proceed with treatment plan as outlined. Surgical History Problems History of Back surgery History of Cardiac catheterization History of Foot surgery Current Meds Medication NameInstruction Aspirin EC 81 MG Oral Tablet Delayed ReleaseTake 1 tablet daily Atorvastatin Calcium 20 MG Oral TabletTAKE 1 TABLET AT BEDTIME Isosorbide Mononitrate ER 60 MG Oral Tablet Extended Release 24 HourTake 1 tablet daily Nitrostat 0.4 MG Sublingual Tablet SublingualPLACE 1 TABLET UNDER THE TONGUE EVERY 5 MINUTES FOR UP TO 3 DOSES NEEDED FOR CHEST PAIN.CALL 911 IF PAIN PERSISTS. Patient did not bring medication list or bottles. Updated verbally with patient Allergies Medication codeine Adverse Reaction; Rash; Recorded By: Yasemin Saeed; 05/30/2021 1:05:52 PM Social History Problems Current smoker (305.1) (F17.200) 1 pack per daily. 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 Cardiovascular: chest pain and palpitations, but no lower extremity edema. Respiratory: no shortness of breath during exertion, no orthopnea and no PND. Vitals Vital Signs Recorded: 24Jun2022 09:32AM Heart Rate88, R Radial [id number], RUE, Si (more content not included)... Normal [employer] Tobacco Screening.on 023 Adult depression screening assessment No -[facility] [employer] DO Work Phone: Tobacco use status CPHS a) Yes M -[facility] [employer] DO Work Phone: Tobacco Screening. Yes [facility] [employer] DO Work Phone: Alanine aminotransferase [En zymatic activity/volume] in Serum or PlasmaOrdered By: Jes Vasquez on 06-19-2022 ALT [Catalytic activity/Vol] 11 U/L 7-52 [facility] Albumin [Mass/volume] in Ser um or Plasma by Bromocresol green (BCG) dye binding methoOrdered By: Jes Vasquez on 06-19-2022 Albumin BCG dye [Mass/Vol] 4.0 g/dL 3.5-5.7 [facility] Alkaline phosphatase [Enzyma tic activity/volume] in Serum or PlasmaOrdered By: Jes Vasquez on 06-19-2022 ALP [Catalytic activity/Vol] 70 U/L 34-104 [facility] Aspartate aminotransferase [ Enzymatic activity/volume] in Serum or PlasmaOrdered By: Jes Vaqsuez on 06-19-2022 AST [Catalytic activity/Vol] 11 U/L 13-39 [facility] B-Type Natriuretic Peptideon 06-19-2022 Natriuretic peptide B (Bld) [Mass/Vol] 87.0 pg/mL Normal 5-100 [facility] Comment on above: Order Comment: Reaso n for Exam Other chest pain;Primary hypertension Result Comment: PERF ORMED BY: [place] [address] PATHOLOGIST [employer] PAL[employer]O WESLEY M.D. Performed By: #### T HYROID SC, BNP, HSCRP, CK, CMP, LIPID, CKMB, CBC #### [address] Basophils Auto (Bld) [#/Vol] Ordered By: Jes Vasquez on 06-19-2022 Basophils (Bld) [#/Vol] 0.1 10*3/uL 0.0-0.2 [facility] Basophils/100 WBC Auto (Bld) Ordered By: Jes Vasquez on 06-19-2022 Basophils/100 WBC (Bld) 1.2 % . [facility] Bilirubin.total [Mass/volume ] in Serum or PlasmaOrdered By: Jes Vasquez on 06-19-2022 Bilirubin [Mass/Vol] 0.2 mg/dL 0.3-1.0 [facility] C reactive protein [Mass/vol ume] in Serum or Plasma by High sensitivity methodOrdered By: Jes Vasquez on 06-19-2022 CRP High sensitivity method [Mass/Vol] 0.4 mg/L 0.0-0.9 [facility] Comment on above: Cardiovascular Risk Classification (AHA/CDC)hsCRP < 1.0 mg/l low relative risk for CVDhsCRP 1.0-3.0 mg/l average relative risk for CVDhsCRP > 3.0 mg/l high relative risk for CVDhsCRP > 7.5 mg/l active inflammation*Two results two weeks apart and averaged provide a morestable estimate of hsCRP level.*hsCRP levels > 7.5 mg/l may suggest infection that canlimit the use of this marker for estimation of CVD risk. Calcium [Mass/volume] in Ser um or PlasmaOrdered By: Jes Vasquez on 06-19-2022 Calcium [Mass/Vol] 9.1 mg/dL 8.6-10.3 [facility] Carbon dioxide, total [Moles /volume] in Serum or PlasmaOrdered By: Jes Vasquez on 06-19-2022 CO2 [Moles/Vol] 24.4 mmol/L 21.0-31.0 [facility] Chloride [Moles/volume] in S shanna or PlasmaOrdered By: Jes Vasquez on 06-19-2022 Chloride [Moles/Vol] 108 mmol/L 98-107 [facility] Cholesterol [Mass/volume] in Serum or PlasmaOrdered By: Jes Vasquez on 06-19-2022 Cholesterol [Mass/Vol] 190 mg/dL 140-200 [facility] Comment on above: Chol less than 200 m g/dl low riskChol 201-239 mg/dl borderline riskChol 240 mg/dl and greater high risk Cholesterol in LDL Calc [Mas s/Vol]Ordered By: Jes Vasquez on 06-19-2022 Cholesterol in LDL [Mass/Vol] 74 mg/dL 0-100 [facility] Comment on above: LDL ATP III CLASSIFI CATIONLDL less than 100 mg/dL OptimalLDL 100-129 mg/dL Near or above optimalLDL 130-159 mg/dL Borderline highLDL 160-189 mg/dL HighLDL greater than 189 mg/dL Very high Cholesterol in VLDL Calc [Ma ss/Vol]Ordered By: Jes Vasquez on 06-19-2022 Cholesterol in VLDL [Mass/Vol] 48 mg/dL [facility] Complete Blood Count Auto Di ffon 06-19-2022 Basophils (Bld) [#/Vol] 0.1 10*3/uL Normal 0.0-0.2 [facility] Comment on above: Order Comment: Reaso n for Exam Other chest pain;Primary hypertension Result Comment: PERF ORMED BY: [place] [address] PATHOLOGIST [employer] WESLEY M.D. Performed By: #### T HYROID SC, BNP, HSCRP, CK, CMP, LIPID, CKMB, CBC #### [facility] [address] Basophils/100 WBC (Bld) 1.2 % Normal . [facility] Comment on above: Order Comment: Reaso n for Exam Other chest pain;Primary hypertension Performed By: #### T HYROID SC, BNP, HSCRP, CK, CMP, LIPID, CKMB, CBC #### [facility] [address] Eosinophils (Bld) [#/Vol] 0.2 10*3/uL Normal 0.0-0.45 [facility] Comment on above: Order Comment: Reaso n for Exam Other chest pain;Primary hypertension Performed By: #### T HYROID SC, BNP, HSCRP, CK, CMP, LIPID, CKMB, CBC #### [facility] [address] Eosinophils/100 WBC (Bld) 2.5 % Normal . [facility] Comment on above: Order Comment: Reaso n for Exam Other chest pain;Primary hypertension Performed By: #### T HYROID SC, BNP, HSCRP, CK, CMP, LIPID, CKMB, CBC #### [facility] [address] [place] [address] Erythrocyte distribution width (RBC) [Ratio] 13.2 % Normal 11.9-15.3 [facility] Comment on above: Order Comment: Reaso n for Exam Other chest pain;Primary hypertension Performed By: #### T HYROID SC, BNP, HSCRP, CK, CMP, LIPID, CKMB, CBC #### [facility] [address] Hematocrit (Bld) [Volume fraction] 39.3 % Normal 34.0-46.4 [facility] Comment on above: Order Comment: Reaso n for Exam Other chest pain;Primary hypertension Performed By: #### T HYROID SC, BNP, HSCRP, CK, CMP, LIPID, CKMB, CBC #### [address] Hemoglobin (Bld) [Mass/Vol] 13.1 g/dL Normal 11.8-15.4 [facility] Comment on above: Order Comment: Reaso n for Exam Other chest pain;Primary hypertension Performed By: #### T HYROID SC, BNP, HSCRP, CK, CMP, LIPID, CKMB, CBC #### [address] Lymphocytes (Bld) [#/Vol] 2.5 10*3/uL Normal 1.00-4.8 [facility] Comment on above: Order Comment: Reaso n for Exam Other chest pain;Primary hypertension Performed By: #### T HYROID SC, BNP, HSCRP, CK, CMP, LIPID, CKMB, CBC #### [address] Lymphocytes/100 WBC (Bld) 30.3 % Normal . [facility] Comment on above: Order Comment: Reaso n for Exam Other chest pain;Primary hypertension Performed By: #### T HYROID SC, BNP, HSCRP, CK, CMP, LIPID, CKMB, CBC #### [address] MCH (RBC) [Entitic mass] 33.2 pg Normal 24.7-34.3 [facility] Comment on above: Order Comment: Reaso n for Exam Other chest pain;Primary hypertension Performed By: #### T HYROID SC, BNP, HSCRP, CK, CMP, LIPID, CKMB, CBC #### [address] MCV (RBC) [Entitic vol] 99.5 fL Normal 80-100 [facility] Comment on above: Order Comment: Reaso n for Exam Other chest pain;Primary hypertension Performed By: #### T HYROID SC, BNP, HSCRP, CK, CMP, LIPID, CKMB, CBC #### [address] Mean Corpuscular HGB Conc 33.4 g/dL Normal 32.0-35.0 [facility] Comment on above: Order Comment: Reaso n for Exam Other chest pain;Primary hypertension Performed By: #### T HYROID SC, BNP, HSCRP, CK, CMP, LIPID, CKMB, CBC #### [facility] [address] Monocytes (Bld) [#/Vol] 1.0 10*3/uL High 0.0-0.8 [facility] Comment on above: Order Comment: Reaso n for Exam Other chest pain;Primary hypertension Performed By: #### T HYROID SC, BNP, HSCRP, CK, CMP, LIPID, CKMB, CBC #### [facility] [address] [place] [address] [place] Monocytes/100 WBC (Bld) 11.6 % Normal . [facility] Comment on above: Order Comment: Reaso n for Exam Other chest pain;Primary hypertension Performed By: #### T HYROID SC, BNP, HSCRP, CK, CMP, LIPID, CKMB, CBC #### [facility] [address] [place] [address] [place] Neutrophils (Bld) [#/Vol] 4.5 10*3/uL Normal 1.8-7.7 [facility] Comment on above: Order Comment: Reaso n for Exam Other chest pain;Primary hypertension Performed By: #### T HYROID SC, BNP, HSCRP, CK, CMP, LIPID, CKMB, CBC #### [facility] [address] [place] [address] [place] Neutrophils/100 WBC (Bld) 54.4 % Normal . [facility] Comment on above: Order Comment: Reaso n for Exam Other chest pain;Primary hypertension Performed By: #### T HYROID SC, BNP, HSCRP, CK, CMP, LIPID, CKMB, CBC #### [facility] [address] [place] [address] [place] NRBC% 0.2 /100{WBC} Normal 0-0.5 [facility] Comment on above: Order Comment: Reaso n for Exam Other chest pain;Primary hypertension Performed By: #### T HYROID SC, BNP, HSCRP, CK, CMP, LIPID, CKMB, CBC #### [facility] [address] Platelet mean volume (Bld) [Entitic vol] 10.2 fL Normal 6.3-10.7 [facility] Comment on above: Order Comment: Reaso n for Exam Other chest pain;Primary hypertension Performed By: #### T HYROID SC, BNP, HSCRP, CK, CMP, LIPID, CKMB, CBC #### [facility] [address] Platelets (Bld) [#/Vol] 297 10*3/uL Normal 150-450 [facility] Comment on above: Order Comment: Reaso n for Exam Other chest pain;Primary hypertension Performed By: #### T HYROID SC, BNP, HSCRP, CK, CMP, LIPID, CKMB, CBC #### [address] RBC (Bld) [#/Vol] 3.95 10*6/uL Normal 3.60-5.00 [facility] Comment on above: Order Comment: Reaso n for Exam Other chest pain;Primary hypertension Performed By: #### T HYROID SC, BNP, HSCRP, CK, CMP, LIPID, CKMB, CBC #### [address] WBC (Bld) [#/Vol] 8.2 10*3/uL Normal 3.8-11.6 [facility] Comment on above: Order Comment: Reaso n for Exam Other chest pain;Primary hypertension Performed By: #### T HYROID SC, BNP, HSCRP, CK, CMP, LIPID, CKMB, CBC #### [facility] [address] Comprehensive Metabolic Pane bryon 06-19-2022 Albumin [Mass/Vol] 4.0 g/dL Normal 3.5-5.7 [facility] Comment on above: Order Comment: Reaso n for Exam Other chest pain;Primary hypertension Performed By: #### T HYROID SC, BNP, HSCRP, CK, CMP, LIPID, CKMB, CBC #### [facility] [address] Albumin/Globulin [Mass ratio] 1.7 {ratio} Normal [facility] Comment on above: Order Comment: Reaso n for Exam Other chest pain;Primary hypertension Performed By: #### T HYROID SC, BNP, HSCRP, CK, CMP, LIPID, CKMB, CBC #### [facility] [address] ALP [Catalytic activity/Vol] 70 U/L Normal 34-104 [facility] Comment on above: Order Comment: Reaso n for Exam Other chest pain;Primary hypertension Performed By: #### T HYROID SC, BNP, HSCRP, CK, CMP, LIPID, CKMB, CBC #### [facility] [address] ALT [Catalytic activity/Vol] 11 U/L Normal 7-52 [facility] Comment on above: Order Comment: Reaso n for Exam Other chest pain;Primary hypertension Performed By: #### T HYROID SC, BNP, HSCRP, CK, CMP, LIPID, CKMB, CBC #### [facility] [address] [place] [address] Anion gap [Moles/Vol] 10.9 mmol/L Normal 6.0-15.0 [facility] Comment on above: Order Comment: Reaso n for Exam Other chest pain;Primary hypertension Performed By: #### T HYROID SC, BNP, HSCRP, CK, CMP, LIPID, CKMB, CBC #### [facility] [address] [place] [address] AST [Catalytic activity/Vol] 11 U/L Low 13-39 [facility] Comment on above: Order Comment: Reaso n for Exam Other chest pain;Primary hypertension Performed By: #### T HYROID SC, BNP, HSCRP, CK, CMP, LIPID, CKMB, CBC #### [facility] [address] [place] [address] Bilirubin [Mass/Vol] 0.2 mg/dL Low 0.3-1.0 [facility] Comment on above: Order Comment: Reaso n for Exam Other chest pain;Primary hypertension Performed By: #### T HYROID SC, BNP, HSCRP, CK, CMP, LIPID, CKMB, CBC #### [facility] [address] Calcium [Mass/Vol] 9.1 mg/dL Normal 8.6-10.3 [facility] Comment on above: Order Comment: Reaso n for Exam Other chest pain;Primary hypertension Performed By: #### T HYROID SC, BNP, HSCRP, CK, CMP, LIPID, CKMB, CBC #### [facility] [address] Chloride [Moles/Vol] 108 mmol/L High 98-107 [facility] Comment on above: Order Comment: Reaso n for Exam Other chest pain;Primary hypertension Performed By: #### T HYROID SC, BNP, HSCRP, CK, CMP, LIPID, CKMB, CBC #### [facility] [address] CO2 [Moles/Vol] 24.4 mmol/L Normal 21.0-31.0 [facility] Comment on above: Order Comment: Reaso n for Exam Other chest pain;Primary hypertension Performed By: #### T HYROID SC, BNP, HSCRP, CK, CMP, LIPID, CKMB, CBC #### [facility] [address] [place] [address] Creatinine [Mass/Vol] 0.79 mg/dL Normal 0.60-1.20 [facility] Comment on above: Order Comment: Reaso n for Exam Other chest pain;Primary hypertension Performed By: #### T HYROID SC, BNP, HSCRP, CK, CMP, LIPID, CKMB, CBC #### [facility] [address] [place] [address] [place] GFR/1.73 sq M.predicted MDRD (S/P/Bld) [Vol rate/Area] mL/min/{1.73_m2} [facility] Comment on above: Order Comment: Reaso n for Exam Other chest pain;Primary hypertension Performed By: #### T HYROID SC, BNP, HSCRP, CK, CMP, LIPID, CKMB, CBC #### [facility] [address] Globulin (S) [Mass/Vol] 2.3 g/dL Normal F [facility] Comment on above: Order Comment: Reaso n for Exam Other chest pain;Primary hypertension Performed By: #### T HYROID SC, BNP, HSCRP, CK, CMP, LIPID, CKMB, CBC #### [facility] [address] Glucose [Mass/Vol] 94 mg/dL Normal 74-109 [facility] Comment on above: Order Comment: Reaso n for Exam Other chest pain;Primary hypertension Result Comment: [facility] Glucose Reference Range is dependent on time and content of last meal. Glucose of more than 200 mg/dL in a nonstressed, ambulatory subject supports the diagnosis of Diabetes Mellitus. ADA recommended reference range Performed By: #### T HYROID SC, BNP, HSCRP, CK, CMP, LIPID, CKMB, CBC #### [facility] [address] Potassium [Moles/Vol] 4.3 mmol/L Normal 3.5-5.1 [facility] Comment on above: Order Comment: Reaso n for Exam Other chest pain;Primary hypertension Performed By: #### T HYROID SC, BNP, HSCRP, CK, CMP, LIPID, CKMB, CBC #### [facility] [address] Protein [Mass/Vol] 6.3 g/dL Low 6.4-8.9 [facility] Comment on above: Order Comment: Reaso n for Exam Other chest pain;Primary hypertension Performed By: #### T HYROID SC, BNP, HSCRP, CK, CMP, LIPID, CKMB, CBC #### [facility] [address] [place] [address] [place] Sodium [Moles/Vol] 139 mmol/L Normal 136-145 [facility] Comment on above: Order Comment: Reaso n for Exam Other chest pain;Primary hypertension Performed By: #### T HYROID SC, BNP, HSCRP, CK, CMP, LIPID, CKMB, CBC #### [facility] [address] [place] [address] [place] Urea nitrogen [Mass/Vol] 9 mg/dL Normal 7-25 [facility] Comment on above: Order Comment: Reaso n for Exam Other chest pain;Primary hypertension Performed By: #### T HYROID SC, BNP, HSCRP, CK, CMP, LIPID, CKMB, CBC #### [facility] [address] [place] [id number] [place] Creatine Kinaseon 06-19-2022 CK [Catalytic activity/Vol] 35 U/L Normal 30-223 [facility] Comment on above: Order Comment: Reaso n for Exam Other chest pain Performed By: #### T HYROID SC, BNP, HSCRP, CK, CMP, LIPID, CKMB, CBC #### [facility] [address] Creatine kinase [Enzymatic a ctivity/volume] in Serum or PlasmaOrdered By: Jes Vasquez on 06-19-2022 CK [Catalytic activity/Vol] 35 U/L 30-223 [facility] Creatine kinase.MB [Mass/vol ume] in Serum or PlasmaOrdered By: Jes Vasquez on 06-19-2022 CK.MB [Mass/Vol] 2.3 ng/mL 0.6-6.3 [facility] Creatinine Kinase MBon 06-19 CK.MB [Mass/Vol] 2.3 ng/mL Normal 0.6-6.3 [facility] Comment on above: Order Comment: Reaso n for Exam Other chest pain Performed By: #### T HYROID SC, BNP, HSCRP, CK, CMP, LIPID, CKMB, CBC #### [facility] [address] CKMB Relative Index 6.5 % High 0.00-2.50 [facility] Comment on above: Order Comment: Reaso n for Exam Other chest pain Result Comment: PERF ORMED BY: [place] [address] PATHOLOGIST [employer] WESLEY M.D. Performed By: #### T HYROID SC, BNP, HSCRP, CK, CMP, LIPID, CKMB, CBC #### [facility] [address] [place] [address] [place] Creatinine [Mass/volume] in Serum or PlasmaOrdered By: Jes Vasquez on 06-19-2022 Creatinine [Mass/Vol] 0.79 mg/dL 0.60-1.20 [facility] Eosinophils Auto (Bld) [#/Vo l]Ordered By: Jes Vasquez on 06-19-2022 Eosinophils (Bld) [#/Vol] 0.2 10*3/uL 0.0-0.45 [facility] Eosinophils/100 WBC Auto (Bl d)Ordered By: Jes Vasquez on 06-19-2022 Eosinophils/100 WBC (Bld) 2.5 % . [facility] Erythrocyte distribution wid th Auto (RBC) [Ratio]Ordered By: Jes Vasquez on 06-19-2022 Erythrocyte distribution width (RBC) [Ratio] 13.2 % 11.9-15.3 [facility] Globulin Calc (S) [Mass/Vol] Ordered By: Jes Vasquez on 06-19-2022 Globulin (S) [Mass/Vol] 2.3 g/dL [facility] Glucose [Mass/volume] in Ser um or PlasmaOrdered By: Jes Vasquez on 06-19-2022 Glucose [Mass/Vol] 94 mg/dL 74-109 [facility] Comment on above: ADA recommended refe rence rangeRandom Glucose Reference Range is dependent on time and content of last meal. Glucose of more than 200 mg/dL in a nonstressed, ambulatory subject supports the diagnosis of Diabetes Mellitus. Hematocrit Auto (Bld) [Volum e fraction]Ordered By: Jes Vasquez on 06-19-2022 Hematocrit (Bld) [Volume fraction] 39.3 % 34.0-46.4 [facility] Hemoglobin [Mass/volume] in BloodOrdered By: Jes Vasquez on 06-19-2022 Hemoglobin (Bld) [Mass/Vol] 13.1 g/dL 11.8-15.4 [facility] High Sensitive CRPon 023 High Sensitive CRP 0.4 mg/L Normal 0.0-0.9 [facility] Comment on above: Order Comment: Reaso n for Exam Other chest pain;Primary hypertension Result Comment: Card iovascular Risk Classification (AHA/CDC) hsCRP < 1.0 mg/l low relative risk for CVD hsCRP 1.0-3.0 mg/l average relative risk for CVD hsCRP > 3.0 mg/l high relative risk for CVD hsCRP > 7.5 mg/l active inflammation* Two results two weeks apart and averaged provide a more stable estimate of hsCRP level. *hsCRP levels > 7.5 mg/l may suggest infection that can limit the use of this marker for estimation of CVD risk. PERFORMED BY: [place] [address] PATHOLOGIST [employer] WESLEY M.D. Performed By: #### T HYROID SC, BNP, HSCRP, CK, CMP, LIPID, CKMB, CBC #### [facility] [address] [place] [address] Laboratory - Chemistry and C hemistry - challengeOrdered By: Jes Vasquez on 06-19-2022 GFR/1.73 sq M.predicted MDRD (S/P/Bld) [Vol rate/Area] mL/min/{1.73_m2} [facility] Leukocytes [#/volume] correc ricardo for nucleated erythrocytes in Blood by Automated counOrdered By: Jes Vasquez on 06-19-2022 WBC corrected for nucl RBC Auto (Bld) [#/Vol] 8.2 10*3/uL 3.8-11.6 [facility] Lipid Panelon 06-19-2022 Cholesterol [Mass/Vol] 190 mg/dL Normal 140-200 [facility] Comment on above: Order Comment: Reaso n for Exam Other chest pain;Primary hypertension Result Comment: Chol less than 200 mg/dl low risk Chol 201-239 mg/dl borderline risk Chol 240 mg/dl and greater high risk Performed By: #### T HYROID SC, BNP, HSCRP, CK, CMP, LIPID, CKMB, CBC #### [facility] [address] [place] [address] Cholesterol in HDL [Mass/Vol] 68 mg/dL Normal 35-85 [facility] Comment on above: Order Comment: Reaso n for Exam Other chest pain;Primary hypertension Result Comment: HDL CHOL ATP-III CLASSIFICATION Cardiovascular Risk HDL > or equal to 60 mg/dL LOW HDL < 40 mg/dL HIGH Performed By: #### T HYROID SC, BNP, HSCRP, CK, CMP, LIPID, CKMB, CBC #### [facility] [address] Cholesterol.total/Adela sterol in HDL [Mass ratio] 2.8 {ratio} Normal <5.0 [facility] Comment on above: Order Comment: Reaso n for Exam Other chest pain;Primary hypertension Performed By: #### T HYROID SC, BNP, HSCRP, CK, CMP, LIPID, CKMB, CBC #### [facility] [address] LDL Cholesterol,Calculated 74 mg/dL Normal 0-100 [facility] Comment on above: Order Comment: Reaso n for Exam Other chest pain;Primary hypertension Result Comment: LDL ATP III CLASSIFICATION LDL less than 100 mg/dL Optimal LDL 100-129 mg/dL Near or above optimal LDL 130-159 mg/dL Borderline high LDL 160-189 mg/dL High LDL greater than 189 mg/dL Very high Performed By: #### T HYROID SC, BNP, HSCRP, CK, CMP, LIPID, CKMB, CBC #### [facility] [address] Triglyceride w/Reflex 241 mg/dL High 0-149 [facility] Comment on above: Order Comment: Reaso n for Exam Other chest pain;Primary hypertension Result Comment: TRIG ATP III CLASSIFICATION TRIG less than 150 mg/dL Normal TRIG 150-199 mg/dL Borderline high TRIG 200-500 mg/dL High TRIG greater than 500 mg/dL Very high Standard traceable to the Center for Disease Conrtrol and Prevention (CDC) test method. Performed By: #### T HYROID SC, BNP, HSCRP, CK, CMP, LIPID, CKMB, CBC #### [facility] [address] VLDL CHOLESTEROL 48 mg/dL Normal [facility] Comment on above: Order Comment: Reaso n for Exam Other chest pain;Primary hypertension Performed By: #### T HYROID SC, BNP, HSCRP, CK, CMP, LIPID, CKMB, CBC #### [facility] [address] [id number] [facility] Lymphocytes Auto (Bld) [#/Vo l]Ordered By: Jes Vasquez on 06-19-2022 Lymphocytes (Bld) [#/Vol] 2.5 10*3/uL 1.00-4.8 [facility] Lymphocytes/100 WBC Auto (Bl d)Ordered By: Jes Vasquez on 06-19-2022 Lymphocytes/100 WBC (Bld) 30.3 % . [facility] MCH Auto (RBC) [Entitic mass ]Ordered By: Jes Vasquez on 06-19-2022 MCH (RBC) [Entitic mass] 33.2 pg 24.7-34.3 [facility] MCHC Auto (RBC) [Mass/Vol]Or dered By: Jes Vasquez on 06-19-2022 MCHC (RBC) [Mass/Vol] 33.4 g/dL 32.0-35.0 [facility] MCV Auto (RBC) [Entitic vol] Ordered By: Jes Vasquez on 06-19-2022 MCV (RBC) [Entitic vol] 99.5 fL 80-100 [facility] Monocytes Auto (Bld) [#/Vol] Ordered By: Jes Vasquez on 06-19-2022 Monocytes (Bld) [#/Vol] 1.0 10*3/uL 0.0-0.8 [facility] Monocytes/100 WBC Auto (Bld) Ordered By: Jes Vasquez on 06-19-2022 Monocytes/100 WBC (Bld) 11.6 % . [facility] Natriuretic peptide B [Mass/ Vol]Ordered By: Jes Vasquez on 06-19-2022 Natriuretic peptide B (Bld) [Mass/Vol] 87.0 pg/mL 5-100 [facility] Neutrophils Auto (Bld) [#/Vo l]Ordered By: Jes Vasquez on 06-19-2022 Neutrophils (Bld) [#/Vol] 4.5 10*3/uL 1.8-7.7 [facility] Neutrophils/100 WBC Auto (Bl d)Ordered By: Jes Vasquez on 03-17-2023 Neutrophils/100 WBC (Bld) 54.4 % . [facility] No Panel InformationOrdered By: Jes Vasquez on 06-19-2022 Pharmacy Creatinine Clearance (Chem N/A [facility] Nucleated erythrocytes [Pres ence] in Blood by Automated countOrdered By: Jes Vasquez on 06-19-2022 Nucleated RBC Auto Ql (Bld) 0.2 /100{WBC} 0-0.5 [facility] Platelet mean volume Auto (B ld) [Entitic vol]Ordered By: Jes Vasquez on 06-19-2022 Platelet mean volume (Bld) [Entitic vol] 10.2 fL 6.3-10.7 [facility] Platelets Auto (Bld) [#/Vol] Ordered By: Jes Vasquez on 06-19-2022 Platelets (Bld) [#/Vol] 297 10*3/uL 150-450 [facility] Potassium [Moles/volume] in Serum or PlasmaOrdered By: Jes Vasquez on 06-19-2022 Potassium [Moles/Vol] 4.3 mmol/L 3.5-5.1 [facility] Protein [Mass/volume] in Ser um or PlasmaOrdered By: Jes Vasquez on 06-19-2022 Protein [Mass/Vol] 6.3 g/dL 6.4-8.9 [facility] RBC Auto (Bld) [#/Vol]Ordere d By: Jes Vasquez on 06-19-2022 RBC (Bld) [#/Vol] 3.95 10*6/uL 3.60-5.00 [facility] Serum or plasma albumin/glob ulin mass ratioOrdered By: Jes Vasquez on 06-19-2022 Albumin/Globulin [Mass ratio] 1.7 {ratio} [facility] Serum or plasma anion gap de terminationOrdered By: Jes Vasquez on 06-19-2022 Anion gap [Moles/Vol] 10.9 mmol/L 6.0-15.0 [facility] Serum or plasma creatine kin ase MB (CKMB)/total creatine kinase (CK) ratio by calculaOrdered By: Jes Vasquez on 06-19-2022 CK.MB Calc [Catalytic fraction] 6.5 % 0.00-2.50 [facility] Serum or plasma high density lipoprotein (HDL) cholesterol measurementOrdered By: Jes Vasquez on 06-19-2022 Cholesterol in HDL [Mass/Vol] 68 mg/dL 35-85 [facility] Comment on above: HDL CHOL ATP-III CLA SSIFICATION Cardiovascular RiskHDL > or equal to 60 mg/dL LOWHDL < 40 mg/dL HIGH Serum or plasma total choles terol/high density lipoprotein (HDL) cholesterol mass ratOrdered By: Jes Vasquez on 06-19-2022 Cholesterol.total/Adela sterol in HDL [Mass ratio] 2.8 {ratio} <5.0 [facility] Sodium [Moles/volume] in Ser um or PlasmaOrdered By: Jes Vasquez on 06-19-2022 Sodium [Moles/Vol] 139 mmol/L 136-145 [facility] THYROID SCREENon 06-19-2022 Free T4 [Mass/Vol] 0.63 ng/dL Normal 0.61-1.12 [facility] Comment on above: Order Comment: Reaso n for Exam Other chest pain;Primary hypertension Performed By: #### T HYROID SC, BNP, HSCRP, CK, CMP, LIPID, CKMB, CBC #### [facility] [address] TSH Qn 2.33 m[IU]/L Normal 0.45-5.33 [facility] Comment on above: Order Comment: Reaso n for Exam Other chest pain;Primary hypertension Result Comment: PERF ORMED BY: [place] [address] PATHOLOGIST [employer] WESLEY M.D. Performed By: #### T HYROID SC, BNP, HSCRP, CK, CMP, LIPID, CKMB, CBC #### [facility] [address] Thyrotropin [Units/volume] i n Serum or PlasmaOrdered By: Jes Vasquez on 06-19-2022 TSH Qn 2.33 m[IU]/L 0.45-5.33 [facility] Thyroxine (T4) free [Mass/vo lume] in Serum or PlasmaOrdered By: Jes Vasquez on 06-19-2022 Free T4 [Mass/Vol] 0.63 ng/dL 0.61-1.12 [facility] Triglyceride [Mass/volume] i n Serum or PlasmaOrdered By: Jes Vasquez on 06-19-2022 Triglyceride [Mass/Vol] 241 mg/dL 0-149 [facility] Comment on above: TRIG ATP III CLASSIF ICATIONTRIG less than 150 mg/dL NormalTRIG 150-199 mg/dL Borderline highTRIG 200-500 mg/dL High TRIG greater than 500 mg/dL Very highStandard traceable to the Center for Disease Conrtrol and Prevention (CDC) test method. Urea nitrogen [Mass/volume] in Serum or PlasmaOrdered By: Jes Vasquez on 06-19-2022 Urea nitrogen [Mass/Vol] 9 mg/dL 7-25 [facility] WBC Auto (Bld) [#/Vol]Ordere d By: Jes Vasquez on 06-19-2022 WBC (Bld) [#/Vol] 8.2 10*3/uL 3.8-11.6 [facility] CARDIAC BJORN ADMITon 023 CK [Catalytic activity/Vol] 54 U/L Normal 26-192 [facility] Comment on above: Performed By: #### C MADM, CMP #### [facility] [address] [address] [address] Howard Guthrie CK.MB [Mass/Vol] 1.70 ng/mL Normal <=3.60 [facility] Comment on above: Performed By: #### C MADM, CMP #### [facility] [address] [address] [address] Howard Guthrie HSTROP <4.0 Normal 4.0-51.3 [facility] Comment on above: Result Comment: CUT- OFF POINTS HAVE BEEN ESTABLISHED BASED ON THE FOURTH UNIVERSAL DEFINITIONS OF MYOCARDIAL INFARCTION. THE UPPER REFERENCE LIMIT (URL) OF TROPONIN, DEFINED THE 99TH PERCENTILE OF cTnI DISTRIBUTION IN A REFERENCE POPULATION, HAS BEEN CONFIRMED THE DECISION THRESHOLD FOR [place] DIAGNOSIS. Performed By: #### C MADM, CMP #### [facility] [address] [address] [address] Howard Guthrie NYA 23 ng/mL Normal 9-82 [facility] Comment on above: Performed By: #### C MADM, CMP #### [facility] [address] [address] [address] Howard Guthrie CBC AUTO DIFFon 06-17-2022 BASO # 0.1 103/ul Normal 0.0-0.1 [facility] Comment on above: Performed By: #### C BC #### [facility] [address] [address] [address] Howard Guthrie Basophils/100 WBC (Bld) 1.0 % Normal 0.2-2.0 [facility] Comment on above: Performed By: #### C BC #### [facility] [address] [place] [address] Dr. Howard Guthrie EO # 0.2 103/ul Normal 0.0-0.7 [facility] Comment on above: Performed By: #### C BC #### [facility] [address] [address] [address] Howard Guthrie Eosinophils/100 WBC (Bld) 2.9 % Normal 0.9-7.0 [facility] Comment on above: Performed By: #### C BC #### [facility] [address] [place] [address] Dr. Howard Guthrie Erythrocyte distribution width (RBC) [Ratio] 12.7 % Normal 11.0-15.0 [facility] Comment on above: Performed By: #### C BC #### [facility] [address] [place] [address] Dr. Howard Guthrie Hematocrit (Bld) [Volume fraction] 42.5 % Normal 36.0-48.0 [facility] Comment on above: Performed By: #### C BC #### [facility] [address] [place] [address] Dr. Howard Guthrie Hemoglobin (Bld) [Mass/Vol] 14.7 g/dL Normal 12.0-16.0 [facility] Comment on above: Performed By: #### C BC #### [facility] [address] [place] [address] Dr. Howard Guthrie IG # 0.02 10e3/ul Normal 0.00-0.03 [facility] Comment on above: Performed By: #### C BC #### [facility] [address] [place] [address] Dr. Howard Guthrie IG % 0.3 % Normal 0.0-0.5 [facility] Comment on above: Performed By: #### C BC #### [facility] [address] [place] [address] Dr. Howard Guthrie LYMPH # 2.1 103/ul Normal 1.2-3.8 [facility] Comment on above: Performed By: #### C BC #### [facility] [address] [place] [address] Dr. Howard Guthrie Lymphocytes/100 WBC (Bld) 28.4 % Normal 20.5-60.0 [facility] Comment on above: Performed By: #### C BC #### [facility] [address] [place] [address] Dr. Howard Guthrie MANUAL DIFF REQ NO Normal [facility] Comment on above: Performed By: #### C BC #### [facility] [address] [place] [address] Dr. Howard Guthrie MCH (RBC) [Entitic mass] 33.1 pg Normal 26.7-34.0 [facility] Comment on above: Performed By: #### C BC #### [facility] [address] [place] [address] Dr. Howard Guthrie MCHC (RBC) [Mass/Vol] 34.6 g/dL Normal 29.9-35.2 [facility] Comment on above: Performed By: #### C BC #### [facility] [address] [place] [address] Dr. Howard Guthrie MCV (RBC) [Entitic vol] 95.7 fL Normal 81.0-99.0 [facility] Comment on above: Performed By: #### C BC #### [facility] [address] [place] [address] Dr. Howard Guthrie MONO # 1.0 103/ul Critically high 0.3-0.8 [facility] Comment on above: Performed By: #### C BC #### [facility] [address] [place] [address] Dr. Howard Guthrie Monocytes/100 WBC (Bld) 13.1 % Critically high 1.7-12. 0 [facility] Comment on above: Performed By: #### C BC #### [facility] [address] [place] [address] Dr. Howard Guthrie NEUT # 4.0 103/ul Normal 1.4-6.5 [facility] Comment on above: Performed By: #### C BC #### [facility] [address] [place] [address] Dr. Howard Guthrie Neutrophils/100 WBC (Bld) 54.3 % Normal 43.0-75.0 [facility] Comment on above: Performed By: #### C BC #### [facility] [address] [place] [address] Dr. Howard Guthrie Platelet mean volume (Bld) [Entitic vol] 10.0 fL Normal 9.5-13.5 [facility] Comment on above: Performed By: #### C BC #### [facility] [address] [place] [address] Dr. Howard Guthrie PLT 343 103/ul Normal 150-450 [facility] Comment on above: Performed By: #### C BC #### [facility] [address] [place] [address] Dr. Howard Guthrie RBC 4.44 106/ul Normal 4.20-5.40 [facility] Comment on above: Performed By: #### C BC #### [facility] [address] [place] [address] Dr. Howard Guthrie WBC 7.4 103/ul Normal 4.0-11.0 [facility] Comment on above: Performed By: #### C BC #### [facility] [address] [place] [address] Dr. Howard Guthrie D-DIMERon 06-17-2022 D-DIMER 0.43 mg/L FEU Normal <=0.59 [facility] Comment on above: Performed By: #### D DIM #### [facility] [address] [place] [address] Dr. Howard Guthrie D-DIMER COMMENTS SEE BELOW Normal [facility] Comment on above: Result Comment: Incr eases in D-Dimer concentration observed with thromboembolic events can be variable due to localization, size, and age of the thrombus. Therefore, a thromboembolic event cannot be diagnosed with certainty on the basis of the reference range. D-Dimers may also be elevated for a variety of disorders including: advanced age, , coronary disease, cancer, liver disease, infection, inflammation, hematoma, DIC, trauma, post-surgery, diabetes, thrombolytic or anticoagulant therapy, stress, and generalized hospitalization. Performed By: #### D DIM #### [facility] [address] [place] [address] Dr. Howard Guthrie ER URINE PROFILEon 3 Bilirubin Ql (U) Negative Normal NEGATIVE [facility] Comment on above: Performed By: #### U MICRO, ERUR #### [facility] [address] [place] [address] Dr. Howard Guthrie Clarity (U) CLEAR Normal CLEAR [facility] Comment on above: Performed By: #### U MICRO, ERUR #### [facility] [address] [place] [address] Dr. Howard Guthrie Color (U) LT. YELLOW Normal YELLOW [facility] Comment on above: Performed By: #### U MICRO, ERUR #### [facility] [address] [place] [address] Dr. Howard Guthrie ERUAHD A micrscopic examination will be performed if indicated. Normal [facility] Comment on above: Performed By: #### U MICRO, ERUR #### [facility] [address] [place] [address] Dr. Howard Guthrie Glucose Ql (U) Negative Normal NEGATIVE [facility] Comment on above: Performed By: #### U MICRO, ERUR #### [facility] [address] [address] [address] Howard Guthrie Hemoglobin Ql (U) SMALL Abnormal NEGATIVE [facility] Comment on above: Performed By: #### U MICRO, ERUR #### [facility] [address] [place] [address] Dr. Howard Guthrie Ketones Ql (U) Negative Normal NEGATIVE [facility] Comment on above: Performed By: #### U MICRO, ERUR #### [facility] [address] [address] [address] Howard Guthrie LEUKOCYTES Negative Normal NEGATIVE [facility] Comment on above: Performed By: #### U MICRO, ERUR #### [facility] [address] [place] [address] Dr. Howard Guthrie Nitrite Ql (U) Negative Normal NEGATIVE [facility] Comment on above: Performed By: #### U MICRO, ERUR #### [facility] [address] [place] [address] Dr. Howard Guthrie pH (U) 7.0 [pH] Normal 5-9 [facility] Comment on above: Performed By: #### U MICRO, ERUR #### [facility] [address] [place] [address] Dr. Howard Guthrie SPEC GRAVITY 1.015 Normal 1.005-<=1.0 25 [facility] Comment on above: Performed By: #### U MICRO, ERUR #### [facility] [address] [address] [address] Howard Guthrie UA PROTEIN Negative Normal NEGATIVE/ TRACE [facility] Comment on above: Performed By: #### U MICRO, ERUR #### [facility] [address] [address] [address] Howard Guthrie UR MICRO IND INDICATED Normal [facility] Comment on above: Performed By: #### U MICRO, ERUR #### [facility] [address] [place] [address] Dr. Howard Guthrie Urobilinogen Qn (U) 0.2 {Abdiaziz'U}/dL Normal 0.2 - 1. 0 [facility] Comment on above: Performed By: #### U MICRO, ERUR #### [facility] [address] [address] [address] Howard Guthrie PROF 14(COMP METB)on 023 Albumin [Mass/Vol] 3.8 g/dL Normal 3.4-5.0 [facility] Comment on above: Performed By: #### C MADM, CMP #### [facility] [address] [address] [address] Howard Guthrie Albumin/Globulin [Mass ratio] 1.1 {ratio} Normal [facility] Comment on above: Performed By: #### C MADM, CMP #### [facility] [address] [address] [address] Howard Guthrie ALP [Catalytic activity/Vol] 96 U/L Normal 46-116 [facility] Comment on above: Performed By: #### C MADM, CMP #### [facility] [address] [address] [address] Howard Guthrie ALT [Catalytic activity/Vol] 19 U/L Normal 14-59 [facility] Comment on above: Performed By: #### C MADM, CMP #### [facility] [address] [address] [address] Howard Guthrie Anion gap [Moles/Vol] 11.2 mmol/L Normal [facility] Comment on above: Performed By: #### C MADM, CMP #### [facility] [address] [address] [address] Howard Guthrie AST [Catalytic activity/Vol] 19 U/L Normal 15-37 [facility] Comment on above: Performed By: #### C MADM, CMP #### [facility] [address] [address] [address] Howard Guthrie Bilirubin [Mass/Vol] 0.5 mg/dL Normal 0.2-1.0 [facility] Comment on above: Performed By: #### C MADM, CMP #### [facility] [address] [address] [address] Howard Guthrie Calcium [Mass/Vol] 8.8 mg/dL Normal 8.5-10.1 [facility] Comment on above: Performed By: #### C MICHAELM, CMP #### [facility] [address] [place] [address] Dr. Howard Guthrie Chloride [Moles/Vol] 104 mmol/L Normal 98-107 [facility] Comment on above: Performed By: #### C MICHAELM, CMP #### [facility] [address] [place] [address] Dr. Howard Guthrie CO2 [Moles/Vol] 24.1 mmol/L Normal 21.0-32.0 [facility] Comment on above: Performed By: #### C JORDAN, CMP #### [facility] [address] [place] [address] Dr. Howard Guthrie Creatinine [Mass/Vol] 0.73 mg/dL Normal 0.55-1.02 [facility] Comment on above: Performed By: #### C JORDAN, CMP #### [facility] [address] [place] [address] Dr. Howard Guthrie EGFR-AF BENINESE >60 Normal >=60 [facility] Comment on above: Performed By: #### C JORDAN, CMP #### [facility] [address] [place] [address] Dr. Howard Gtuhrie EGFR-NON AF BENINESE >60 Normal >=60 [facility] Comment on above: Performed By: #### C JORDAN, CMP #### [facility] [address] [place] [address] Dr. Howard Guthrie Globulin (S) [Mass/Vol] 3.6 g/dL Normal [facility] Comment on above: Performed By: #### C MICHAELM, CMP #### [facility] [address] [place] [address] Dr. Howard Guthrie Glucose [Mass/Vol] 112 mg/dL Critically high 74-106 [facility] Comment on above: Performed By: #### C MICHAELM, CMP #### [facility] [address] [place] [address] Dr. Howard Guthrie Potassium [Moles/Vol] 3.3 mmol/L Critically low 3.5-5.1 [facility] Comment on above: Performed By: #### C JORDAN, CMP #### [facility] [address] [place] [address] Dr. Howard Guthrie Protein [Mass/Vol] 7.4 g/dL Normal 6.4-8.2 [facility] Comment on above: Performed By: #### C JORDAN, CMP #### [facility] [address] [place] [address] Dr. Howard Guthrie Sodium [Moles/Vol] 136 mmol/L Normal 136-145 [facility] Comment on above: Performed By: #### C JORDAN, CMP #### [facility] [address] [place] [address] Dr. Howard Guthrie Urea nitrogen [Mass/Vol] 6.0 mg/dL Critically low 7.0-18.0 [facility] Comment on above: Performed By: #### Terrie ORTEGA, CMP #### [facility] [address] [place] [address] Dr. Howard Guthrie Urea nitrogen/Creatinine [Mass ratio] 8.2 mg/mg Normal [facility] Comment on above: Performed By: #### C JORDAN, CMP #### [facility] [address] [place] [address] Dr. Howard Guthrie TROPONIN, HIGH SENSITIVITYon 06-17-2022 HSTROP 4.6 pg/mL Normal 4.0-51.3 [facility] Comment on above: Result Comment: CUT- OFF POINTS HAVE BEEN ESTABLISHED BASED ON THE FOURTH UNIVERSAL DEFINITIONS OF MYOCARDIAL INFARCTION. THE UPPER REFERENCE LIMIT (URL) OF TROPONIN, DEFINED THE 99TH PERCENTILE OF cTnI DISTRIBUTION IN A REFERENCE POPULATION, HAS BEEN CONFIRMED THE DECISION THRESHOLD FOR [place] DIAGNOSIS. Performed By: #### H STROPN #### [facility] [address] [place] [address] Dr. Howard Guthrie URINE MICROSCOPIC ONLYon BACTERIA TRACE Abnormal NONE SEEN The [facility] Comment on above: Performed By: #### U MICRO, ERUR #### [facility] [address] [place] [address] Dr. Howard Guthrie Bacteria identified Cx Nom (U) NOT INDICATED Normal [facility] Comment on above: Performed By: #### U MICRO, ERUR #### [facility] [address] [place] [address] Dr. Howard Guthrie CAST NONE SEEN Normal NONE SEEN [facility] Comment on above: Performed By: #### U MICRO, ERUR #### [facility] [address] [place] [address] Dr. Howard Guthrie Crystals LM Nom (Urine sed) NONE SEEN Normal NONE SEEN The [facility] Comment on above: Performed By: #### U MICRO, ERUR #### [facility] [address] [place] [address] Dr. Howard Guthrie Epithelial cells LM Ql (Urine sed) FEW Abnormal NONE SEEN /RARE The [facility] Comment on above: Performed By: #### U MICRO, ERUR #### [facility] [address] [place] [address] Dr. Howard Guthrie MUCOUS TRACE Abnormal NONE SEEN The [facility] Comment on above: Performed By: #### U MICRO, ERUR #### [facility] [address] [place] [address] Dr. Howard Guthrie RBC 2-5 Abnormal 0-2 [facility] Comment on above: Performed By: #### U MICRO, ERUR #### [facility] [address] [place] [address] Dr. Howard Guthrie WBC NONE SEEN Normal NONE SEEN The [facility] Comment on above: Performed By: #### U MICRO, ERUR #### [facility] [address] [place] [address] Dr. Howard Guthrie XR CHEST 1 Von 06-17-2022 XR CHEST 1 V EXAM: XR CHEST 1 V HISTORY: SHORTNESS OF BREATH chest pain. Congestion. Dizziness. COMPARISON: 03/24/2021. TECHNIQUE: Chest X-ray AP, 1 view FINDINGS: Support devices: None. Lungs/pleura: Lungs again appear hyperexpanded. Findings of the right upper lung which are new since prior examination have appearance most suggestive of postsurgical change-please correlate with surgical history. There is new blunting of the right costophrenic angle. No focal infiltrate. No evidence of pneumothorax. Heart and mediastinum: Normal contours. Bones: No acute abnormality identified. IMPRESSION: 1. Blunting of the right costophrenic angle may represent postsurgical changes/scarring. Small effusion is possible. 2. No evidence of edema or consolidation. Electronically authenticated by: NICK MARIE Date: 2022-06-17 12:26 Normal The [facility] Tobacco Screening.on 022 Adult depression screening assessment No -[facility] 250 DO Work Phone: Tobacco use status CPHS a) Yes M -[facility] 250 DO Work Phone: Tobacco Screening. Yes [facility] 250 DO Work Phone: Vital Signs Date Time Vital Sign Value Performing Clinician Faci lity 03-22-2023 13:16-0500 Blood Pressure [facility] 03-22-2023 13:16-0500 Diastolic blood pressure 85 mm[Hg] [facility] 03-22-2023 13:16-0500 Heart rate 90 /min [facility] 03-22-2023 13:16-0500 SaO2% (BldA) [Mass fraction] 99 % [facility] 03-22-2023 13:16-0500 Systolic blood pressure 126 mm[Hg] [facility] 12-15-2022 13:20-0400 Body height 165.1 cm Loretta Javier Other [facility] Other 12-15-2022 13:20-0400 Body mass index (BMI) [Ratio] 23.13 kg/m2 Loretta Javier Other [facility] Other 12-15-2022 13:20-0400 Body temperature 98.1 [degF] Loretta Yaya Other [facility] Other 12-15-2022 13:20-0400 Body weight 63.05 kg Loretta Javier Other [facility] Other 12-15-2022 13:20-0400 Diastolic blood pressure 76 mm[Hg] Loretta Javier Other [facility] Other 12-15-2022 13:20-0400 Respiratory rate 18 /min Loretta Javier Other [facility] Other 12-15-2022 13:20-0400 SaO2% (BldA) [Mass fraction] 98 % Loretta Javier Other [facility] Other 12-15-2022 13:20-0400 Systolic blood pressure 128 mm[Hg] Loretta Yaya Other [facility] Other 10-14-2022 11:10-0400 Body height 165.1 cm Tanya Belen Other [facility] Other 10-14-2022 11:10-0400 Body mass index (BMI) [Ratio] 23.39 kg/m2 Tanya Belen Other [facility] Other 10-14-2022 11:10-0400 Body temperature 97.8 [degF] Tanya Belen Other [facility] Other 10-14-2022 11:10-0400 Body weight 63.78 kg Tanya Belen Other [facility] Other 10-14-2022 11:10-0400 Diastolic blood pressure 85 mm[Hg] Tanya lGover Other [facility] Other 10-14-2022 11:10-0400 Respiratory rate 18 /min Tanya Glover Other [facility] Other 10-14-2022 11:10-0400 SaO2% (BldA) [Mass fraction] 99 % Tanya Glover Other [facility] Other 10-14-2022 11:10-0400 Systolic blood pressure 143 mm[Hg] Tanya Glover Other [facility] Other 06-24-2022 09:32-0400 Body height 165.1 cm No PCP None [facility] 250 DO Work Phone: 06-24-2022 09:32-0400 Body mass index (BMI) [Ratio] 24.63 kg/m2 No PCP None [facility] 250 DO Work Phone: 06-24-2022 09:32-0400 Body surface area Derived from formula 1.74 m2 No PCP None [facility] [place] 250 DO Work Phone: 06-24-2022 09:32-0400 Body weight 67.13 kg No PCP [facility] DO Work Phone: 06-24-2022 09:32-0400 Diastolic blood pressure 82 mm[Hg] No PCP [facility] DO Work Phone: 06-24-2022 09:32-0400 Heart rate 88 /min No PCP None [facility] 250 DO Work Phone: 06-24-2022 09:32-0400 Systolic blood pressure 124 mm[Hg] No PCP None [facility] 250 DO Work Phone: 06-02-2021 15:09-0500 Diastolic blood pressure 98 mm[Hg] No PCP None [facility] 250 DO Work Phone: 06-02-2021 15:09-0500 Systolic blood pressure 142 mm[Hg] No PCP None [facility] 250 DO Work Phone: 06-02-2021 15:03-0500 Body height 165.1 cm No PCP None [facility] 250 DO Work Phone: 06-02-2021 15:03-0500 Body mass index (BMI) [Ratio] 28.29 kg/m2 No PCP None [facility] 250 DO Work Phone: 06-02-2021 15:03-0500 Body surface area Derived from formula 1.85 m2 No PCP None [facility] 250 DO Work Phone: 06-02-2021 15:03-0500 Body weight 77.11 kg No PCP None [facility] 250 DO Work Phone: 06-02-2021 15:03-0500 Diastolic blood pressure 90 mm[Hg] No PCP None [facility] 250 DO Work Phone: 06-02-2021 15:03-0500 Heart rate 92 /min No PCP None [facility] 250 DO Work Phone: 06-02-2021 15:03-0500 Systolic blood pressure 142 mm[Hg] No PCP None [facility] 250 DO Work Phone: Encounters Encounter Date Encounter Type Care Provider Facility Start: 04-16-2023 End: 04-16-2023 Patient encounter procedure Ramone Garcia [facility] Start: 04-01-2023 End: 04-01-2023 ambulatory Jes Vasquez Facility:[facility] Start: 03-22-2023 End: 03-23-2023 ambulatory Ramone Garcia Facility:[facility] Start: 03-22-2023 End: 03-22-2023 Patient encounter procedure Ramone Garcia [facility] Start: 12-15-2022 End: 12-15-2022 ambulatory Loretta Javier Other [facility] Other Start: 12-15-2022 Office outpatient visit 25 minutes Loretta Javier [facility] Start: 10-14-2022 End: 10-14-2022 ambulatory Tanya Glover Other [facility] Other Start: 10-14-2022 Office outpatient visit 15 minutes Tanyahai Glover [facility] Start: 08-14-2022 ambulatory Ms. Jes Vasquez Facility: Start: 08-14-2022 FUV, Provider: Nadia Franks, Status: Pen, Time: 1:00 PM No PCP None [facility] 250 DO Work Phone: Start: 08-06-2022 Rx Renewal No PCP None [facility] 250 DO Work Phone: Start: 06-24-2022 Office outpatient visit 15 minutes No PCP None [facility] 250 DO Work Phone: Start: 06-24-2022 ambulatory Ms. Nadia Tinajero Migel mendoza Facility: Start: 06-19-2022 End: 06-19-2022 ambulatory Jes Natasha Vasquez Facility:[facility] Start: 06-19-2022 End: 06-19-2022 ambulatory PHYSICIAN NO [facility] Work Phone: Start: 06-19-2022 End: 06-19-2022 Departed Referred PHYSICIAN NO [facility] Start: 06-17-2022 End: 06-17-2022 ambulatory RIVER MARTE . Facility:[facility] Start: 11-10-2021 ambulatory Ms. Nadia mendoza Facility: Start: 10-27-2021 Rx Renewal No PCP None [facility] 250 DO Work Phone: Start: 06-02-2021 Office outpatient visit 25 minutes No PCP None [facility] 250 DO Work Phone: Procedures Date Procedure Procedure Detail Performing Clinician Cardiac catheter (physical object) Ramone Garcia Cardiac catheterization No P CP None Colonoscopy Ramone Chase rson Hysterectomy Ramone Chase rson Operative procedure on foot No PCP None Procedure on back No PCP Non e Procedure on back Ramone salomon Plan of Treatment Date Care Activity Detail Author Start: 08-14-2022 FUV, Provider: Nadia Franks, Status: Pen, Time: 1:00 PM FUV, Provider: Nadia Franks, Status: Pen, Time: 1:00 PM [facility] 250 DO Work Phone: Start: 11-10-2021 FUV, Provider: Nadia Franks, Status: Pen, Time: 3:00 PM FUV, Provider: Nadia Franks, Status: Pen, Time: 3:00 PM [facility] 250 DO Work Phone: Start: 06-30-2021 FUV, Provider: Nadia Franks, Status: Pen, Time: 8:00 AM [facility]UV, Provider: Nadia Franks, Status: Pen, Time: 8:00 AM [facility] 250 DO Work Phone: Immunizations Immunization Date Immunization Notes Care Provider [facility] 03-25-2021 influenza, injectabl e, quadrivalent, preservative free No PCP None [facility] 01-05-2020 influenza, injectabl e, quadrivalent, preservative free No PCP None -[facility] 250 DO Work Phone: 01-06-2019 influenza, injectabl e, quadrivalent, preservative free [facility] Payers Date Payer Category Payer Self-pay [id number] 1970 Unknown [id number] 1970 Unknown [id number] 1971 Unknown [id number] 1971 Unknown [id number] 1971 Unknown [id number] 1959 Medicaid [id number] Private Health Insurance [id number] Unknown [id number] Unknown [facility] Unknown [id number] Unknown [id number] Unknown [id number] Social History Date Type Detail Facility [facility] Start: 1970 Sex Assigned At Female F [facility] Illicit drug use Illicit drug use [facility] DO Work Phone: Comment on above: 1 pack per daily.; Start: 05-26-2021 Tobacco smoking stat us NHIS Ex-smoker (finding) [facility] Sex Assigned At [facility] Start: 03-22-2023 Tobacco smoking status Light t obacco smoker (finding) [facility] Tobacco smoking status Never [facility] Medical Equipment Procedure Code Equipment Code Equipment Origin al Text Equipment Identifier Dates Thoracotomy Staple line-reinforcement strip [id number] FDA Start: 03-26-2021 Thoracotomy Surgical adhesive/sealant, human-derived [id number] FDA Start: 03-26-2021 Goals Date Patient Goal Desired Activity /State Functional Status Date Assessment Result Facility 03-22-2023 Functional Status No [facility] Evaluation note 12-15-2022 Note Date & Type Note Facility 12-15-2022 Evaluation note Encounter Date Diagnosis Assessment Notes Dec, Sore throat (ICD-10 - J02.9) Dec, Acute maxillary sinusitis, recurrence not specified (ICD-10 - J01.00) Advised patient that rapid COVID and rapid strep test were negative today in office. Discussed diagnosis with patient. Will today for bacterial sinusitis based on physical exam and duration of symptoms. Take antibiotic as prescribed, complete entire course of therapy even if symptoms resolve. Reviewed allergies and recent antibiotic use with patient. Advised patient to take rx of prednisone as directed, reviewed side effects of medication. Supportive care as directed, push fluids and rest, Tylenol as directed for discomfort/fev er, warm moist compress over sinuses several times a day, cool mist humidification , nasal saline spray as directed. Symptoms should improve in the next 3 days, if symptoms persist follow up with PCP. Immediate eval for warning s/sx as discussed. Patient verbalizes understanding and is agreeable to treatment plan [facility] Other Evaluation note 10-14-2022 Note Date & Type Note Facility 10-14-2022 Evaluation note Encounter Date Diagnosis Assessment Notes Oct, Sore throat (ICD-10 - J02.9) Oct, Acute sinusitis, recurrence not specified, unspecified location (ICD-10 - J01.90) Sinusitis home care material was printed Drink plenty fluids, get plenty of rest. Take the amoxicillin with clavulanate and prednisone as prescribed until gone. Use the albuterol inhaler as prescribed as needed for cough or shortness of breath. Take Tylenol or Motrin for aches pains or fevers. Follow-up with your family physician if no improvement in 2 to 3 days Oct, Contact with and (suspected) exposure to covid-19 (ICD-10 - Z20.822) Oct, Bronchitis (ICD-10 - J40) [facility] Other Evaluation + Plan note Radiology Note Date & Type Note Facility Evaluation + Plan note Future Appointments Appointment Date:05/13/2023 03:45:00 PM Scheduled Provider:Ramone Garcia MD Location:[facility]iology [facility] Appointment Type:Cardiology Follow Up ([facility]) Future Scheduled TestsNM Myocardial Spect Rest/Stress 1 Day 03/22/23Echo Transthoracic Complete 03/22/23 [facility] Evaluation + Plan note Note Date & Type Note Facility Evaluation + Plan note Future Appointments Appointment Date:05/13/2023 03:45:00 PM Scheduled Provider:Ramone Garcia MD Location:[facility]Cardiology Clinic Appointment Type:Cardiology Follow Up ([facility]) [facility] Evaluation note Note Date & Type Note Facility Evaluation note [facility]: History general Narrative - Reported Note Date & Type Note Facility History general Narrative - Reported Type Surgical History hysterectomy Surgical History lumbar [facility] Other History of Present illness Narrative Note Date & Type Note Facility History of Present illness Narrative The patient states she has been generally doing well since the last visit. Comorbid Illnesses: hyperlipidemia.Symptoms: denies chest pain at rest, denies exertional chest pain, improved dyspnea, denies fatigue, denies exercise intolerance, stable palpitations, denies edema, denies orthopnea, denies dizziness and denies orthostatic dizziness.Associated symptoms: no syncope.Her symptoms do not limit her activities.Disease Monitoring:Medications: the patient is adherent with her medication regimen. She denies medication side effects. -[facility] Lopez DO Work Phone: Hospital course Narrative Note Date & Type Note Facility Hospital course Narrative No data available for this section [facility] Discharge instructions Note Date & Type Note Facility Hospital Discharge instructions No data available for this section [facility] Progress note Note Date & Type Note Facility Progress note No data available for this section [facility] Assessments No Assessments Information Available Family History Relationship Condition Age at Onset Recorded Date/T kari father Hepatic cirrhosis Unknown Posttraumatic stress disorder Unknown Not Specified Myocardial infarction Unknown Unknown Family Member Name Dates Details Family history of hepatic ci rrhosis: Father(V18.59, Z83.79) Status:Active Family history of myocardial infarction: Mother(V17.3, Z82.49) Status:Active Unknown Family Member Name Dates Details Family history of myocardial infarction: Mother(V17.3, Z82.49) Status:Active Family history of hepatic ci rrhosis: Father(V18.59, Z83.79) Status:Active Unknown Family Member Name Dates Details Family history of myocardial infarction: Mother(V17.3, Z82.49) Status:Active Family history of hepatic ci rrhosis: Father(V18.59, Z83.79) Status:Active Unknown Family Member Name Dates Details Family history of myocardial infarction: Mother(V17.3, Z82.49) Status:Active Family history of hepatic ci rrhosis: Father(V18.59, Z83.79) Status:Active Unknown Family Member Name Dates Details Family history of myocardial infarction: Mother(V17.3, Z82.49) Status:Active Family history of hepatic ci rrhosis: Father(V18.59, Z83.79) Status:Active Chief Complaint * I am doing ok * MEGHANA CRAIG is being seen for follow-up of a hospitalization for dyspnea. * Patient was recently hospitalized at [facility]. The patient was seen in Cardiology consult with subsequent cardiovascular management by [facility]. Hospitalization records have been reviewed. * Reason for Cardiology Consultation: chest pain (presented with spontaneous PTX) * Consulting Right Of Way Worker: Dr. Lopez * Cardiovascular testing: cardiac cath * Changes to cardiovascular medical regimen at time of discharge: ASA, lipitor, imdur * Discharge disposition: Home. Has returned to work. * Right radial cath site healed. * 'Flutter ' sometimes (similar to how she felt in the hospital) ?if r/t palpitations, is always in the same spot. * Add on d/t chest pain: 'more chest pain and fluttering' * MEGHANA CRAIG is being seen for chest pain and palpitations. * Patient presents to the office ambulatory with steady gait. Last evaluated in clinic by myself May 2021. She has been no-show for subsequent follow-up. * She is seen today at the request of PCP due to recent emergency department evaluation. * Last week she presented to [facility] due to chest pain and dizziness. Initial troponins negative, EKG unremarkable. * Patient reports a 1 week history of constant left-sided chest pain that is clearly worse with palpation and movement. It is consistent with costochondritis, she denies any muscle overuse. Not consistent with unstable angina. When I saw her in the office in May 2021 I added diltiazem due to atypical palpitations and blood pressure control. She has now been off of the medication and reports elevated blood pressures at home and fluttering . 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 * She has been under increased psychosocial stress due to recent diagnosis of lung cancer and her , her cousin was accidentally killed in a car accident 2 nights ago. She feels like the stress is contributing to her concerns. * Reviewed in detail that presenting chest pain symptoms are not consistent with unstable angina. Most consistent with costochondritis versus musculoskeletal discomfort. We will add PPI and short course of [id number] Motrin. Due to blood pressure and palpitations will resume prior dose of diltiazem, symptoms have been quiescent with that treatment. She is in agreement to proceed with treatment plan as outlined. Chief Complaint and Reason for Visit Chief Complaint Other chest pain Oth er chest pain;Primary hyperten Advance Directives Advance Directive Response Recorded Date/ Time Advance Directives No January 05, 2019 3:54pm Summary Purpose Additional Source Comments Care Teams (unrecognized sec tion and content) Personnel Name: JES VASQUEZ CNP Address: Address: [address] [place] [id number] Team Status: Active Member Role Status Dates PHYSICIAN NO FAMILY Primary Care Provider Active Team Status: Inactive Member Role Status Dates PHYSICIAN NO FAMILY Primary Care Provider Active Jes Vasquez , [employer]TER-C Attending Provide r Active Goals (unrecognized section and content) Goals may be documented in a n alternate sectionNo InformationNo Information No data available for this section No data available for this section INFORMATION SOURCE (unrecogn ized section and content) DATE CREATED AUTHOR 06/24/2022 [employer] DATE CREATED AUTHOR AUTHOR'S ORGANIZ ATION 07/29/2022 [facility] DATE CREATED AUTHOR AUTHOR'S ORGANIZ ATION 08/16/2022 [facility] DATE CREATED AUTHOR AUTHOR'S ORGANIZ ATION 04/12/2023 [facility] DATE CREATED AUTHOR AUTHOR'S ORGANIZ ATION 04/15/2023 [facility] REASON FOR VISIT (unrecogniz ed section and content) EARACHE BOTH, SORE THROAT, N OSE BLISTERSSINUS INFECTION FOR RECORDS PERTAINING TO PATIENTS WHO ARE OR HAVE BEEN ENROLLED IN A CHEMICAL DEPENDENCY/SUBSTANCEABUSE PROGRAM, SOME INFORMATION MAY BE OMITTED. This clinical summary was aggregated from multiple sources. Caution should be exercised in using it in the provision of clinical care. This summary normalizes information from multiple sources, and as a consequence, information in this document may materially change the coding, format and clinical context of patient data. In addition, data may be omitted in some cases. CLINICAL DECISIONS SHOULD BE BASED ON THE PRIMARY CLINICAL RECORDS. [facility]. provides no warranty or guarantee of the accuracy or completeness of information in this document.
[2023-04-28 09:47] LABS: Basophils Absolute Auto 0.1 10^3/uL (0.0-0.1); Basophils Percent Auto 0.9 % (0.2-2.0); Eosinophils Absolute Auto 0.1 10^3/uL (0.0-0.7); Eosinophils Percent Auto 1.5 % (0.9-7.0); Hematocrit 37.9 % (36.0-48.0); Hemoglobin 12.7 g/dL (12.0-16.0); Immature Granulocytes Abs Auto 0.03 10^3/uL (0.00-0.03); Immature Granulocytes Pct Auto 0.4 % (0.0-0.5); Lymphocytes Absolute Auto 2.1 10^3/uL (1.2-3.8); Lymphocytes Percent Auto 28.7 % (20.5-60.0); Mean Corpuscular HGB Conc 33.5 g/dL (29.9-35.2); Mean Corpuscular Hemoglobin 33.6 pg (26.7-34.0); Mean Corpuscular Volume 100.3 fL (81.0-99.0); Mean Platelet Volume 9.8 fL (9.5-13.5); Monocytes Absolute Auto 0.9 10^3/uL (0.3-0.8); Monocytes Percent Auto 12.4 % (1.7-12.0); Neutrophils Absolute Auto 4.1 10^3/uL (1.4-6.5); Neutrophils Percent Auto 56.1 % (43.0-75.0); Platelet Count 300 10^3/uL (150-450); Red Blood Count 3.78 10^6/uL (4.20-5.40); Red Cell Distribution Width 14.4 % (11.0-15.0); White Blood Count 7.4 10^3/uL (4.0-11.0)
--- NOTE | 2023-04-28 09:48 | P.GSHP_ITS ---
History of Present Illness History of Present Illness Chief complaint: left hallux valgus Narrative: Patient presents for preadmission testing. The patient is scheduled for left foot surgery for a bunion deformity and foot pain that she's had for more than one year, she previously had surgery on this foot for the same. The patient's surgery was postponed due to the need for cardiac clearance which we have now received. The patient denies any new trauma or injury, numbness, tingling, weakness, or any other complaints. Review of Systems ROS Narrative REVIEW OF SYSTEMS: Negative except as stated in HPI, ten or more systems reviewed. Constitutional: No fever , chills, weakness ENT: No sore throat or epistaxis Cardiovascular: No edema, chest pain, palpitations, or activity intolerance Respiratory: Chronic shortness of breath And wheezing, No acute cough Gastrointestinal: No abdominal pain, constipation, diarrhea, or vomiting Genitourinary: No dysuria or hematuria Neurological: No numbness, tingling, weakness, or headache Psychiatric: No mood changes PFSH PFS Medical History (Updated 03/16/23 @ 10:45 by Demetrio Chris) Arthritis ?M19.90 - Unspecified osteoarthritis, unspecified site (ICD-10) Back pain ?M54.9 - Dorsalgia, unspecified (ICD-10) Anemia ?D64.9 - Anemia, unspecified (ICD-10) Depression ?F32.A - Depression, unspecified (ICD-10) Anxiety ?F41.9 - Anxiety disorder, unspecified (ICD-10) COVID-19 ?U07.1 - COVID-19 (ICD-10) Electronic cigarette use ?Z78.9 - Other specified health status (ICD-10) Chronic obstructive pulmonary disease ?J44.9 - Chronic obstructive pulmonary disease, unspecified (ICD-10) GERD (gastroesophageal reflux disease) ?K21.9 - Gastro-esophageal reflux disease without esophagitis (ICD-10) Dyspnea on exertion ?R06.09 - Other forms of dyspnea (ICD-10) Irregular heart beat ?I49.9 - Cardiac arrhythmia, unspecified (ICD-10) Coronary artery disease ?I25.10 - Atherosclerotic heart disease of [place] coronary artery without angina pectoris (ICD-10) Hypertension ?I10 - Essential (primary) hypertension (ICD-10) Hallux rigidus ?M20.20 - Hallux rigidus, unspecified foot (ICD-10) Hallux valgus ?M20.10 - Hallux valgus (acquired), unspecified foot (ICD-10) Palpitation ?R00.2 - Palpitations (ICD-10) Costochondritis ?M94.0 - Chondrocostal junction syndrome [[place]] (ICD-10) Coronary vasospasm ?I20.1 - Angina pectoris with documented spasm (ICD-10) Spontaneous pneumothorax (03/2021) ?J93.83 - Other pneumothorax (ICD-10) Admission for pleural drainage tube placement ?Z46.82 - Encounter for fitting and adjustment of non-vascular catheter (ICD-10) Surgical History (Updated 03/05/23 @ 13:50 by Harleen Holden NP) History of cardiac catheterization ?Z98.890 - Other specified postprocedural states (ICD-10) History of foot surgery ?Z98.890 - Other specified postprocedural states (ICD-10) History of spinal surgery ?Z98.890 - Other specified postprocedural states (ICD-10) History of hysterectomy ?Z90.710 - Acquired absence of both cervix and uterus (ICD-10) Family History (Updated 03/05/23 @ 13:50 by Harleen Holden NP) Other Family history of DVT Family history of hypertension Family history of liver cancer Family history of myocardial infarction Family history of stroke Social History (Updated 03/05/23 @ 13:43 by Harleen Holden NP) Within the past year, how often did you have a drink containing alcohol: 2-3 times a week Smoking status: Current every day smoker What tobacco products do you use: cigarettes Packs per day: 1 Years smoked: 18 Smoking pack-years: 18.00 Do you use any of these nicotine containing products: e-cigarettes and vaping products Non-prescribed substance use: cannabis (any form) Highest level of school completed/degree received: high school graduate Meds Home Medications and Allergies Home Medications Medication Instructions Recorded Confirmed Type clonazepam 0.5 mg tablet (Klonopin) 0.5 mg PO BID 03/05/23 04/28/23 History albuterol sulfate 90 mcg/actuation 2 inh inhalation Q4H PRN 04/28/23 04/28/23 History aerosol inhaler bronchospasm atorvastatin 20 mg tablet 20 mg PO DAILY 04/28/23 04/28/23 History isosorbide mononitrate 30 mg 30 mg PO DAILY 04/28/23 04/28/23 History tablet,extended release 24 hr quetiapine 50 mg tablet 50 mg PO QPM 04/28/23 04/28/23 History sertraline 100 mg tablet 100 mg PO DAILY 04/28/23 04/28/23 History Allergies Allergy/AdvReac Type Severity Reaction Status Date / Time codeine Allergy Hives Verified 03/16/23 10:01 Exam Narrative Exam Narrative: Constitutional: Awake, alert, comfortable, well-appearing, nontoxic, interactive, vital signs as charted Head: Normocephalic, atraumatic Neck: Supple, normal appearance, normal range of motion, no meningeal signs, no lymphadenopathy Respiratory: No respiratory distress, breath sounds Diminished throughout Cardiovascular: Regular rate and rhythm, strong and regular heart tones Musculoskeletal: Left foot with obvious hallux valgus deformity, limited range of motion of the 1st MPJ, good capillary refill, sensation intact Skin: No rashes or induration, no lesions, only visible skin inspected Neuro: No neurological deficits, normal sensation Psychiatric: Oriented ?3, normal affect Assessment and Plan Assessment and Plan (1) Hallux rigidus: (2) Hallux valgus: Plan Left 1st MPJ fusion, bone graft scheduled with Dr. Lopez 05/03/2023.
[2023-04-28 10:06] LABS: Partial Thromboplastin Time 26.1 sec (22.3-36.2); Prothrombin Time 9.6 sec (9.0-11.6)
[2023-04-28 10:11] LABS: Anion Gap 14.4; BUN Creatinine Ratio 18.1; Calcium 8.6 mg/dL (8.5-10.1); Carbon Dioxide 24.9 mmol/L (21.0-32.0); Chloride 105 mmol/L (98-107); Estimated GFR (African America >60 (>=60); Estimated GFR (Non-African Ame >60 (>=60); Glucose 104 mg/dL (74-106); Potassium 3.3 mmol/L (3.5-5.1); Sodium 141 mmol/L (136-145)
[2023-04-28 10:55] LABS: INR <0.93
== END 2023-04-28 09:00 | disposition home or self-care (01) ==
LOC: PST 09:00
PROVIDERS: Visit Provider Podiatrist Foot & Ankle Surgery
DX: Z01.812 Encounter for preprocedural laboratory examination (principal); M20.12 Hallux valgus (acquired), left foot; M20.22 Hallux rigidus, left foot; I25.10 Atherosclerotic heart disease of native coronary artery without angina pectoris
CPT/HCPCS: 80048; 85025; 85610; 85730; G0463

== ENCOUNTER 2023-05-03 07:09 | Day surgery (SDC) | payer OTHER, SELFPAY ==
[2023-04-28 09:41] VITALS: BP 148/83; PULSE 88; RESP 20; TEMP 36.2; O2SAT 97; BMI 22.9
[2023-05-03] VITALS (10 sets, daily range): BP systolic 124–154; BP diastolic 76–100; PULSE 77–85; RESP 15–20; TEMP 36.2–36.6; O2SAT 94–99; BMI 23.4
--- NOTE | 2023-05-03 | FL_ITS ---
[address] [address] Patient Name: MEGHANA KEY MRN: [id number] date: 1970 Sex: F Assigned Patient Location: [facility] Current Patient Location: [facility] Accession/Order Number: [id number] Exam Date: 05/03/2023 10:00 Report Date: 05/03/2023 13:57 At the request of: TAMI HOGDE Procedure: FL fluoroscopy <1hr NON-READ EXAM: FL fluoroscopy <1hr NON-READ HISTORY: TECHNIQUE: FINDINGS: Please see Operative Report. Electronically authenticated by: RADIOLOGIST NO Date: 05/03/2023 13:57
--- OUTSIDE RECORDS SUMMARY | 2023-05-03 07:12 | XMS_ITS | CCD ---
Author Name Unknown Address [address] [facility] [address] [place] [address] Organization [facility] Care Team Providers Care Rn Transitional Care Name Role Phone None, No PCP Unavailable [...] Javier Unavailable JES VASQUEZ Primary Care Physician [phone] Ramone Garcia Attending UnavailRamone Mendez Admitting Unavaila [...] Allergy 09-16-2012 hives, Eruption of skin present [facility] Medications Current Medications Medication Drug Class(es) [...] Daily, # 30 tab(s), Refills(s) 3, Pharmacy: [facility], 164, cm, 03/22/23 13:24:00 EST, [...] qAM, # 30 tab(s), Refills(s) 3, Pharmacy: [facility]5, 164, cm, 03/22/23 13:24:00 EST, [...] Nocturia, # 60 tab(s), Refills(s) 3, Pharmacy: [facility], 165, cm, 01/17/20 11:18:00 EDT, [...] Drug Class(es) Dates Sig (Normalized) Sig (Original) [id number] 200 actuat albuterol 0.09 mg/actuat metered dose [...] Active Start: 06-02-2021 [facility] dilTIAZem HCl ER Coated Beads [...] sources) Coronary atherosclerosis; Translations: [Coronary atherosclerosis of [place] coronary artery] 04-03-2021 Chronic Disorders of lipid [...] with voice recognition artificial intelligence software, specifically [employer], [employer] and or Telik. Substitutions may have occurred with voice recognition and artificial intelligence software. Documentation services were performed after patient or guardian consented to allow [facility] to record this visit. ANDERSON rfid specialist and provider reviewed before signing. ANDERSON: [...] 3 refi (more content not included)... Normal [facility] Comment on above: Result Comment: Elec tronically Signed By: Ramone Garcia MD\.br\Date and Time Signed: 04/11/23 19:52 EST\.br\Electronically Co-Signed By: Janie Villarreal\.br\Date and Time Co-Signed: 03/22/23 14:46 EST US renal BIon 04-01-2023 US renal BI [facility] [address] [address] Ultrasound Report Signed Patient: Meghana Craig MR#: [id number] : 1970 Acct:[id number] Age/Sex: 52 / F ADM Date: 04/01/23 Loc: Room: Type: [facility] Attending Dr: Jes Vasquez SLACKMAN-C Ordering Provider: Jes Vasquez Date of Service: 04/01/23 US/US renal BI: R31.9 ([id number]) US/US bladder: R31.9 Copies to: Jes Vasquez [...] Johns Jr., D.OShyanne04/01/2023 3:16 PM Dictation Location: [place] [address] Tech: Chloe Delcid Transcribed By: FLORES 04/01/23 151 Dictated By: Freddy Johns Jr, DO 04/01/23 151 Signed By: 04/01/23 151 Normal [facility] XR KUBon 04-01-2023 XR KUB [facility] [address] [address] XRay Report Signed Patient: Meghana Craig MR#: [id number] : 1970 Acct:[id number] Age/Sex: 52 / F ADM Date: 04/01/23 Loc: Room: Type: [facility] Attending Dr: Jes Vasquez SLACKMAN-C Copies to: Jes Vasquez Ordering Provider: Jes [...] Shae Guzman M.D.04/01/2023 3:38 PM Dictation Location: [facility]- Transcribed By: [facility] 04/01/23 1538 Dictated By: Shae Guzman MD 04/01/23 1536 Signed By: 04/01/23 1538 [facility] Insurance Correspondenceon 05-24-2022 Insurance Correspondence [id number]#1 .00TIFF [facility] Consent for Treatmenton 03-05 Consent for Treatment [id number]#1 .00TIFF [facility] Physician Orderon 03-22-2023 Physician Order [id number] #1.00TIFF [facility] Referrals Officeon Referrals Office [id number] #1.00TIFF [facility] COVID Quick Testingon 2022 Result Negative [facility] Other Quick Strepon 12-15-2022 S. pyogenes Org specific cx Ql (Throat) Negative [employer] Other Quick Strep [facility] Other COVID + FLU Quick Testingon 10-14-2022 SARS-CoV-2 (COVID-19) RNA AISSATOU+probe Ql (Unsp spec) Negative [facility] Other COVID + FLU Quick Testing Negative [facility] Other Quick Strepon 10-14-2022 S. pyogenes Org specific cx Ql (Throat) Negative [employer] Other Quick Strep [facility] Other Office Visit (Cardiology)on 06-24-2022 Follow-up visit Diagnoses/Problems Assessed Costochondritis (733.6) (M94.0) Palpitations (785.1) (R00.2) For the most part brief and fleeting, seem most consistent with PVC. Coronary artery disease involving [place] coronary artery of [place] heart without angina pectoris (414.01) (I25.10) Mar [...] contact the office if new symptoms arise. SLACKMAN 6 weeks Chief Complaint Add on d/t [...] department evaluation. Last week she presented to [facility] due to chest pain and dizziness. [...] and fluttering . 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 Due to blood pressure and palpitations [...] Recorded: 24Jun2022 09:32AM Heart Rate88, R Radial Cysyjhhj113, RUE, Si (more content not included)... Normal [facility] Tobacco Screening.on 023 Adult depression screening assessment No -[facility] MD-IT 250 DO Work Phone: Tobacco use status CPHS a) Yes M -[facility] MD-IT 250 DO Work Phone: Tobacco Screening. Yes [facility] [employer] 250 DO Work Phone: Alanine aminotransferase [En zymatic activity/volume] in Serum or PlasmaOrdered By: Jes Vasquez on 06-19-2022 ALT [Catalytic activity/Vol] 11 U/L 7-52 [facility] Albumin [Mass/volume] in Ser um or Plasma by Bromocresol green (BCG) dye binding methoOrdered By: Jes Vasquez on 06-19-2022 Albumin BCG dye [Mass/Vol] 4.0 g/dL 3.5-5.7 [facility] Alkaline phosphatase [Enzyma tic activity/volume] in Serum or PlasmaOrdered By: Jes Vasquez on 06-19-2022 ALP [Catalytic activity/Vol] 70 U/L 34-104 [facility] Aspartate aminotransferase [ Enzymatic activity/volume] in Serum or PlasmaOrdered By: Jes Vasquez on 06-19-2022 AST [Catalytic activity/Vol] 11 U/L 13-39 [facility] B-Type Natriuretic Peptideon 06-19-2022 Natriuretic peptide B (Bld) [Mass/Vol] 87.0 pg/mL Normal 5-100 [facility] Comment on above: Order Comment: Reaso n for Exam Other chest pain;Primary hypertension Result Comment: PERF ORMED BY: [place] [address] PATHOLOGIST SENIOR NET DEVELOPER PALOMO WESLEY M.D. Performed By: #### T HYROID SC, BNP, HSCRP, CK, CMP, LIPID, CKMB, CBC #### [address] Basophils Auto (Bld) [#/Vol] Ordered By: Jes Vasquez on 06-19-2022 Basophils (Bld) [#/Vol] 0.1 10*3/uL 0.0-0.2 [facility] Basophils/100 WBC Auto (Bld) Ordered By: Jes Vasquez on 06-19-2022 Basophils/100 WBC (Bld) 1.2 % . [facility] Bilirubin.total [Mass/volume ] in Serum or PlasmaOrdered By: Jes Vasquez on 06-19-2022 Bilirubin [Mass/Vol] 0.2 mg/dL 0.3-1.0 [facility] C reactive protein [Mass/vol ume] in Serum or Plasma by High sensitivity methodOrdered By: Jes Vasquez on 06-19-2022 CRP High sensitivity method [Mass/Vol] 0.4 mg/L 0.0-0.9 [facility] Comment on above: Cardiovascular Risk Classification [...] on 06-19-2022 Calcium [Mass/Vol] 9.1 mg/dL 8.6-10.3 [facility] Carbon dioxide, total [Moles /volume] in Serum or PlasmaOrdered By: Jes Vasquez on 06-19-2022 CO2 [Moles/Vol] 24.4 mmol/L 21.0-31.0 [facility] Chloride [Moles/volume] in S shanna or PlasmaOrdered By: Jes Vasquez on 06-19-2022 Chloride [Moles/Vol] 108 mmol/L 98-107 [facility] Cholesterol [Mass/volume] in Serum or PlasmaOrdered By: Jes Vasquez on 06-19-2022 Cholesterol [Mass/Vol] 190 mg/dL 140-200 [facility] Comment on above: Chol less than 200 m g/dl low riskChol 201-239 mg/dl borderline riskChol 240 mg/dl and greater high risk Cholesterol in LDL Calc [Mas s/Vol]Ordered By: Jes Vasquez on 06-19-2022 Cholesterol in LDL [Mass/Vol] 74 mg/dL 0-100 [facility] Comment on above: LDL ATP III CLASSIFI CATIONLDL less than 100 mg/dL OptimalLDL 100-129 mg/dL Near or above optimalLDL 130-159 mg/dL Borderline highLDL 160-189 mg/dL HighLDL greater than 189 mg/dL Very high Cholesterol in VLDL Calc [Ma ss/Vol]Ordered By: Jes Vasquez on 06-19-2022 Cholesterol in VLDL [Mass/Vol] 48 mg/dL [facility] Complete Blood Count Auto Di ffon 06-19-2022 Basophils (Bld) [#/Vol] 0.1 10*3/uL Normal 0.0-0.2 [facility] Comment on above: Order Comment: Reaso n for Exam Other chest pain;Primary hypertension Result Comment: PERF ORMED BY: [place] [address] PATHOLOGIST SENIOR NET DEVELOPER PALOMO WESLEY M.D. Performed By: #### T HYROID SC, BNP, HSCRP, CK, CMP, LIPID, CKMB, CBC #### [facility] [address] Basophils/100 WBC (Bld) 1.2 % Normal . [facility] Comment on above: Order Comment: Reaso n for Exam Other chest pain;Primary hypertension Performed By: #### T HYROID SC, BNP, HSCRP, CK, CMP, LIPID, CKMB, CBC #### [facility] [address] Eosinophils (Bld) [#/Vol] 0.2 10*3/uL Normal 0.0-0.45 [facility] Comment on above: Order Comment: Reaso n for Exam Other chest pain;Primary hypertension Performed By: #### T HYROID SC, BNP, HSCRP, CK, CMP, LIPID, CKMB, CBC #### [facility] [address] Eosinophils/100 WBC (Bld) 2.5 % Normal . [facility] Comment on above: Order Comment: Reaso n for Exam Other chest pain;Primary hypertension Performed By: #### T HYROID SC, BNP, HSCRP, CK, CMP, LIPID, CKMB, CBC #### [facility] [address] [place] [address] Erythrocyte distribution width (RBC) [Ratio] 13.2 % Normal 11.9-15.3 [facility] Comment on above: Order Comment: Reaso n for Exam Other chest pain;Primary hypertension Performed By: #### T HYROID SC, BNP, HSCRP, CK, CMP, LIPID, CKMB, CBC #### [facility] [address] Hematocrit (Bld) [Volume fraction] 39.3 % Normal 34.0-46.4 [facility] Comment on above: Order Comment: Reaso n for Exam Other chest pain;Primary hypertension Performed By: #### T HYROID SC, BNP, HSCRP, CK, CMP, LIPID, CKMB, CBC #### [address] Hemoglobin (Bld) [Mass/Vol] 13.1 g/dL Normal 11.8-15.4 [facility] Comment on above: Order Comment: Reaso n for Exam Other chest pain;Primary hypertension Performed By: #### T HYROID SC, BNP, HSCRP, CK, CMP, LIPID, CKMB, CBC #### [address] Lymphocytes (Bld) [#/Vol] 2.5 10*3/uL Normal 1.00-4.8 [facility] Comment on above: Order Comment: Reaso n for Exam Other chest pain;Primary hypertension Performed By: #### T HYROID SC, BNP, HSCRP, CK, CMP, LIPID, CKMB, CBC #### [address] Lymphocytes/100 WBC (Bld) 30.3 % Normal . [facility] Comment on above: Order Comment: Reaso n for Exam Other chest pain;Primary hypertension Performed By: #### T HYROID SC, BNP, HSCRP, CK, CMP, LIPID, CKMB, CBC #### [address] MCH (RBC) [Entitic mass] 33.2 pg Normal 24.7-34.3 [facility] Comment on above: Order Comment: Reaso n for Exam Other chest pain;Primary hypertension Performed By: #### T HYROID SC, BNP, HSCRP, CK, CMP, LIPID, CKMB, CBC #### [address] MCV (RBC) [Entitic vol] 99.5 fL Normal 80-100 [facility] Comment on above: Order Comment: Reaso n for Exam Other chest pain;Primary hypertension Performed By: #### T HYROID SC, BNP, HSCRP, CK, CMP, LIPID, CKMB, CBC #### [address] Mean Corpuscular HGB Conc 33.4 g/dL Normal 32.0-35.0 [facility] Comment on above: Order Comment: Reaso n for Exam Other chest pain;Primary hypertension Performed By: #### T HYROID SC, BNP, HSCRP, CK, CMP, LIPID, CKMB, CBC #### [facility] [address] Monocytes (Bld) [#/Vol] 1.0 10*3/uL High 0.0-0.8 [facility] Comment on above: Order Comment: Reaso n for Exam Other chest pain;Primary hypertension Performed By: #### T HYROID SC, BNP, HSCRP, CK, CMP, LIPID, CKMB, CBC #### [facility] [address] [place] [address] [place] Monocytes/100 WBC (Bld) 11.6 % Normal . [facility] Comment on above: Order Comment: Reaso n for Exam Other chest pain;Primary hypertension Performed By: #### T HYROID SC, BNP, HSCRP, CK, CMP, LIPID, CKMB, CBC #### [facility] [address] [place] [address] [place] Neutrophils (Bld) [#/Vol] 4.5 10*3/uL Normal 1.8-7.7 [facility] Comment on above: Order Comment: Reaso n for Exam Other chest pain;Primary hypertension Performed By: #### T HYROID SC, BNP, HSCRP, CK, CMP, LIPID, CKMB, CBC #### [facility] [address] [place] [address] [place] Neutrophils/100 WBC (Bld) 54.4 % Normal . [facility] Comment on above: Order Comment: Reaso n for Exam Other chest pain;Primary hypertension Performed By: #### T HYROID SC, BNP, HSCRP, CK, CMP, LIPID, CKMB, CBC #### [facility] [address] [place] [address] [place] NRBC% 0.2 /100{WBC} Normal 0-0.5 [facility] Comment on above: Order Comment: Reaso n for Exam Other chest pain;Primary hypertension Performed By: #### T HYROID SC, BNP, HSCRP, CK, CMP, LIPID, CKMB, CBC #### [facility] [address] Platelet mean volume (Bld) [Entitic vol] 10.2 fL Normal 6.3-10.7 [facility] Comment on above: Order Comment: Reaso n for Exam Other chest pain;Primary hypertension Performed By: #### T HYROID SC, BNP, HSCRP, CK, CMP, LIPID, CKMB, CBC #### [facility] [address] Platelets (Bld) [#/Vol] 297 10*3/uL Normal 150-450 [facility] Comment on above: Order Comment: Reaso n for Exam Other chest pain;Primary hypertension Performed By: #### T HYROID SC, BNP, HSCRP, CK, CMP, LIPID, CKMB, CBC #### [address] RBC (Bld) [#/Vol] 3.95 10*6/uL Normal 3.60-5.00 [facility] Comment on above: Order Comment: Reaso n for Exam Other chest pain;Primary hypertension Performed By: #### T HYROID SC, BNP, HSCRP, CK, CMP, LIPID, CKMB, CBC #### [address] WBC (Bld) [#/Vol] 8.2 10*3/uL Normal 3.8-11.6 [facility] Comment on above: Order Comment: Reaso n for Exam Other chest pain;Primary hypertension Performed By: #### T HYROID SC, BNP, HSCRP, CK, CMP, LIPID, CKMB, CBC #### [facility] [address] Comprehensive Metabolic Pane bryno 06-19-2022 Albumin [Mass/Vol] 4.0 g/dL Normal 3.5-5.7 [facility] Comment on above: Order Comment: Reaso n for Exam Other chest pain;Primary hypertension Performed By: #### T HYROID SC, BNP, HSCRP, CK, CMP, LIPID, CKMB, CBC #### [facility] [address] Albumin/Globulin [Mass ratio] 1.7 {ratio} Normal [facility] Comment on above: Order Comment: Reaso n for Exam Other chest pain;Primary hypertension Performed By: #### T HYROID SC, BNP, HSCRP, CK, CMP, LIPID, CKMB, CBC #### [facility] [address] ALP [Catalytic activity/Vol] 70 U/L Normal 34-104 [facility] Comment on above: Order Comment: Reaso n for Exam Other chest pain;Primary hypertension Performed By: #### T HYROID SC, BNP, HSCRP, CK, CMP, LIPID, CKMB, CBC #### [facility] [address] ALT [Catalytic activity/Vol] 11 U/L Normal 7-52 [facility] Comment on above: Order Comment: Reaso n for Exam Other chest pain;Primary hypertension Performed By: #### T HYROID SC, BNP, HSCRP, CK, CMP, LIPID, CKMB, CBC #### [facility] [address] [place] [address] Anion gap [Moles/Vol] 10.9 mmol/L Normal 6.0-15.0 [facility] Comment on above: Order Comment: Reaso n for Exam Other chest pain;Primary hypertension Performed By: #### T HYROID SC, BNP, HSCRP, CK, CMP, LIPID, CKMB, CBC #### [facility] [address] [place] [address] AST [Catalytic activity/Vol] 11 U/L Low 13-39 [facility] Comment on above: Order Comment: Reaso n for Exam Other chest pain;Primary hypertension Performed By: #### T HYROID SC, BNP, HSCRP, CK, CMP, LIPID, CKMB, CBC #### [facility] [address] [place] [address] Bilirubin [Mass/Vol] 0.2 mg/dL Low 0.3-1.0 [facility] Comment on above: Order Comment: Reaso n for Exam Other chest pain;Primary hypertension Performed By: #### T HYROID SC, BNP, HSCRP, CK, CMP, LIPID, CKMB, CBC #### [facility] [address] Calcium [Mass/Vol] 9.1 mg/dL Normal 8.6-10.3 [facility] Comment on above: Order Comment: Reaso n for Exam Other chest pain;Primary hypertension Performed By: #### T HYROID SC, BNP, HSCRP, CK, CMP, LIPID, CKMB, CBC #### [facility] [address] Chloride [Moles/Vol] 108 mmol/L High 98-107 [facility] Comment on above: Order Comment: Reaso n for Exam Other chest pain;Primary hypertension Performed By: #### T HYROID SC, BNP, HSCRP, CK, CMP, LIPID, CKMB, CBC #### [facility] [address] CO2 [Moles/Vol] 24.4 mmol/L Normal 21.0-31.0 [facility] Comment on above: Order Comment: Reaso n for Exam Other chest pain;Primary hypertension Performed By: #### T HYROID SC, BNP, HSCRP, CK, CMP, LIPID, CKMB, CBC #### [facility] [address] [place] [address] Creatinine [Mass/Vol] 0.79 mg/dL Normal 0.60-1.20 [facility] Comment on above: Order Comment: Reaso n for Exam Other chest pain;Primary hypertension Performed By: #### T HYROID SC, BNP, HSCRP, CK, CMP, LIPID, CKMB, CBC #### [facility] [address] [place] [address] [place] GFR/1.73 sq M.predicted MDRD (S/P/Bld) [Vol rate/Area] mL/min/{1.73_m2} [facility] Comment on above: Order Comment: Reaso n for Exam Other chest pain;Primary hypertension Performed By: #### T HYROID SC, BNP, HSCRP, CK, CMP, LIPID, CKMB, CBC #### [facility] [address] Globulin (S) [Mass/Vol] 2.3 g/dL Normal [facility] Comment on above: Order Comment: Reaso n for Exam Other chest pain;Primary hypertension Performed By: #### T HYROID SC, BNP, HSCRP, CK, CMP, LIPID, CKMB, CBC #### [facility] [address] Glucose [Mass/Vol] 94 mg/dL Normal 74-109 [facility] Comment on above: Order Comment: Reaso n for Exam Other chest pain;Primary hypertension Result Comment: [facility] Glucose Reference Range is dependent on time and content of last meal. Glucose of more than 200 mg/dL in a nonstressed, ambulatory subject supports the diagnosis of Diabetes Mellitus. ADA recommended reference range Performed By: #### T HYROID SC, BNP, HSCRP, CK, CMP, LIPID, CKMB, CBC #### [facility] [address] Potassium [Moles/Vol] 4.3 mmol/L Normal 3.5-5.1 [facility] Comment on above: Order Comment: Reaso n for Exam Other chest pain;Primary hypertension Performed By: #### T HYROID SC, BNP, HSCRP, CK, CMP, LIPID, CKMB, CBC #### [facility] [address] Protein [Mass/Vol] 6.3 g/dL Low 6.4-8.9 [facility] Comment on above: Order Comment: Reaso n for Exam Other chest pain;Primary hypertension Performed By: #### T HYROID SC, BNP, HSCRP, CK, CMP, LIPID, CKMB, CBC #### [facility] [address] [place] [address] [place] Sodium [Moles/Vol] 139 mmol/L Normal 136-145 [facility] Comment on above: Order Comment: Reaso n for Exam Other chest pain;Primary hypertension Performed By: #### T HYROID SC, BNP, HSCRP, CK, CMP, LIPID, CKMB, CBC #### [facility] [address] [place] [address] [place] Urea nitrogen [Mass/Vol] 9 mg/dL Normal 7-25 [facility] Comment on above: Order Comment: Reaso n for Exam Other chest pain;Primary hypertension Performed By: #### T HYROID SC, BNP, HSCRP, CK, CMP, LIPID, CKMB, CBC #### [facility] [address] [place] [id number] [place] Creatine Kinaseon 06-19-2022 CK [Catalytic activity/Vol] 35 U/L Normal 30-223 [facility] Comment on above: Order Comment: Reaso n for Exam Other chest pain Performed By: #### T HYROID SC, BNP, HSCRP, CK, CMP, LIPID, CKMB, CBC #### [facility] [address] Creatine kinase [Enzymatic a ctivity/volume] in Serum or PlasmaOrdered By: Jes Vasquez on 06-19-2022 CK [Catalytic activity/Vol] 35 U/L 30-223 [facility] Creatine kinase.MB [Mass/vol ume] in Serum or PlasmaOrdered By: Jes Vasquez on 06-19-2022 CK.MB [Mass/Vol] 2.3 ng/mL 0.6-6.3 [facility] Creatinine Kinase MBon 06-19 CK.MB [Mass/Vol] 2.3 ng/mL Normal 0.6-6.3 [facility] Comment on above: Order Comment: Reaso n for Exam Other chest pain Performed By: #### T HYROID SC, BNP, HSCRP, CK, CMP, LIPID, CKMB, CBC #### [facility] [address] CKMB Relative Index 6.5 % High 0.00-2.50 [facility] Comment on above: Order Comment: Reaso n for Exam Other chest pain Result Comment: PERF ORMED BY: [place] [address] PATHOLOGIST SENIOR NET DEVELOPER PALOMO WESLEY M.D. Performed By: #### T HYROID SC, BNP, HSCRP, CK, CMP, LIPID, CKMB, CBC #### [facility] [address] [place] [address] [place] Creatinine [Mass/volume] in Serum or PlasmaOrdered By: Jes Vasquez on 06-19-2022 Creatinine [Mass/Vol] 0.79 mg/dL 0.60-1.20 [facility] Eosinophils Auto (Bld) [#/Vo l]Ordered By: Jes Vasquez on 06-19-2022 Eosinophils (Bld) [#/Vol] 0.2 10*3/uL 0.0-0.45 [facility] Eosinophils/100 WBC Auto (Bl d)Ordered By: Jes Vasquez on 06-19-2022 Eosinophils/100 WBC (Bld) 2.5 % . [facility] Erythrocyte distribution wid th Auto (RBC) [Ratio]Ordered By: Jes Vasquez on 06-19-2022 Erythrocyte distribution width (RBC) [Ratio] 13.2 % 11.9-15.3 [facility] Globulin Calc (S) [Mass/Vol] Ordered By: Jes Vasquez on 06-19-2022 Globulin (S) [Mass/Vol] 2.3 g/dL [facility] Glucose [Mass/volume] in Ser um or PlasmaOrdered By: Jes Vasquez on 06-19-2022 Glucose [Mass/Vol] 94 mg/dL 74-109 [facility] Comment on above: ADA recommended refe rence rangeRandom Glucose Reference Range is dependent on time and content of last meal. Glucose of more than 200 mg/dL in a nonstressed, ambulatory subject supports the diagnosis of Diabetes Mellitus. Hematocrit Auto (Bld) [Volum e fraction]Ordered By: Jes Vasquez on 06-19-2022 Hematocrit (Bld) [Volume fraction] 39.3 % 34.0-46.4 [facility] Hemoglobin [Mass/volume] in BloodOrdered By: Jes Vasquez on 06-19-2022 Hemoglobin (Bld) [Mass/Vol] 13.1 g/dL 11.8-15.4 [facility] High Sensitive CRPon 023 High Sensitive CRP 0.4 mg/L Normal 0.0-0.9 [facility] Comment on above: Order Comment: Reaso n [...] for estimation of CVD risk. PERFORMED BY: [place] [address] PATHOLOGIST SENIOR NET DEVELOPER PAOLMO WESLEY M.D. Performed By: #### T HYROID SC, BNP, HSCRP, CK, CMP, LIPID, CKMB, CBC #### [facility] [address] [place] [address] Laboratory - Chemistry and C hemistry - challengeOrdered By: Jes Vasquez on 06-19-2022 GFR/1.73 sq M.predicted MDRD (S/P/Bld) [Vol rate/Area] mL/min/{1.73_m2} [facility] Leukocytes [#/volume] correc ricardo for nucleated erythrocytes in Blood by Automated counOrdered By: Jes Vasquez on 06-19-2022 WBC corrected for nucl RBC Auto (Bld) [#/Vol] 8.2 10*3/uL 3.8-11.6 [facility] Lipid Panelon 06-19-2022 Cholesterol [Mass/Vol] 190 mg/dL Normal 140-200 [facility] Comment on above: Order Comment: Reaso n for Exam Other chest pain;Primary hypertension Result Comment: Chol less than 200 mg/dl low risk Chol 201-239 mg/dl borderline risk Chol 240 mg/dl and greater high risk Performed By: #### T HYROID SC, BNP, HSCRP, CK, CMP, LIPID, CKMB, CBC #### [facility] [address] [place] [address] Cholesterol in HDL [Mass/Vol] 68 mg/dL Normal 35-85 [facility] Comment on above: Order Comment: Reaso n for Exam Other chest pain;Primary hypertension Result Comment: HDL CHOL ATP-III CLASSIFICATION Cardiovascular Risk HDL > or equal to 60 mg/dL LOW HDL < 40 mg/dL HIGH Performed By: #### T HYROID SC, BNP, HSCRP, CK, CMP, LIPID, CKMB, CBC #### [facility] [address] Cholesterol.total/Adela sterol in HDL [Mass ratio] 2.8 {ratio} Normal <5.0 [facility] Comment on above: Order Comment: Reaso n for Exam Other chest pain;Primary hypertension Performed By: #### T HYROID SC, BNP, HSCRP, CK, CMP, LIPID, CKMB, CBC #### [facility] [address] LDL Cholesterol,Calculated 74 mg/dL Normal 0-100 [facility] Comment on above: Order Comment: Reaso n for Exam Other chest pain;Primary hypertension Result Comment: LDL ATP III CLASSIFICATION LDL less than 100 mg/dL Optimal LDL 100-129 mg/dL Near or above optimal LDL 130-159 mg/dL Borderline high LDL 160-189 mg/dL High LDL greater than 189 mg/dL Very high Performed By: #### T HYROID SC, BNP, HSCRP, CK, CMP, LIPID, CKMB, CBC #### [facility] [address] Triglyceride w/Reflex 241 mg/dL High 0-149 [facility] Comment on above: Order Comment: Reaso n [...] HSCRP, CK, CMP, LIPID, CKMB, CBC #### [facility] [address] VLDL CHOLESTEROL 48 mg/dL Normal [facility] Comment on above: Order Comment: Reaso n for Exam Other chest pain;Primary hypertension Performed By: #### T HYROID SC, BNP, HSCRP, CK, CMP, LIPID, CKMB, CBC #### [facility] [address] [id number] [facility] Lymphocytes Auto (Bld) [#/Vo l]Ordered By: Jes Vasquez on 06-19-2022 Lymphocytes (Bld) [#/Vol] 2.5 10*3/uL 1.00-4.8 [facility] Lymphocytes/100 WBC Auto (Bl d)Ordered By: Jes Vasquez on 06-19-2022 Lymphocytes/100 WBC (Bld) 30.3 % . [facility] MCH Auto (RBC) [Entitic mass ]Ordered By: Jes Vasquez on 06-19-2022 MCH (RBC) [Entitic mass] 33.2 pg 24.7-34.3 [facility] MCHC Auto (RBC) [Mass/Vol]Or dered By: Jes Vasquez on 06-19-2022 MCHC (RBC) [Mass/Vol] 33.4 g/dL 32.0-35.0 [facility] MCV Auto (RBC) [Entitic vol] Ordered By: Jes Vasquez on 06-19-2022 MCV (RBC) [Entitic vol] 99.5 fL 80-100 [facility] Monocytes Auto (Bld) [#/Vol] Ordered By: Jes Vasquez on 06-19-2022 Monocytes (Bld) [#/Vol] 1.0 10*3/uL 0.0-0.8 [facility] Monocytes/100 WBC Auto (Bld) Ordered By: Jes Vasquez on 06-19-2022 Monocytes/100 WBC (Bld) 11.6 % . [facility] Natriuretic peptide B [Mass/ Vol]Ordered By: Jes Vasquez on 06-19-2022 Natriuretic peptide B (Bld) [Mass/Vol] 87.0 pg/mL 5-100 [facility] Neutrophils Auto (Bld) [#/Vo l]Ordered By: Jes Vasquez on 06-19-2022 Neutrophils (Bld) [#/Vol] 4.5 10*3/uL 1.8-7.7 [facility] Neutrophils/100 WBC Auto (Bl d)Ordered By: Jes Vasquez on 03-17-2023 Neutrophils/100 WBC (Bld) 54.4 % . [facility] No Panel InformationOrdered By: Jes Vasquez on 06-19-2022 Pharmacy Creatinine Clearance (Chem N/A [facility] Nucleated erythrocytes [Pres ence] in Blood by Automated countOrdered By: Jes Vasquez on 06-19-2022 Nucleated RBC Auto Ql (Bld) 0.2 /100{WBC} 0-0.5 [facility] Platelet mean volume Auto (B ld) [Entitic vol]Ordered By: Jes Vasquez on 06-19-2022 Platelet mean volume (Bld) [Entitic vol] 10.2 fL 6.3-10.7 [facility] Platelets Auto (Bld) [#/Vol] Ordered By: Jes Vasquez on 06-19-2022 Platelets (Bld) [#/Vol] 297 10*3/uL 150-450 [facility] Potassium [Moles/volume] in Serum or PlasmaOrdered By: Jes Vasquez on 06-19-2022 Potassium [Moles/Vol] 4.3 mmol/L 3.5-5.1 [facility] Protein [Mass/volume] in Ser um or PlasmaOrdered By: Jes Vasquez on 06-19-2022 Protein [Mass/Vol] 6.3 g/dL 6.4-8.9 [facility] RBC Auto (Bld) [#/Vol]Ordere d By: Jes Vasquez on 06-19-2022 RBC (Bld) [#/Vol] 3.95 10*6/uL 3.60-5.00 [facility] Serum or plasma albumin/glob ulin mass ratioOrdered By: Jes Vasquez on 06-19-2022 Albumin/Globulin [Mass ratio] 1.7 {ratio} [facility] Serum or plasma anion gap de terminationOrdered By: Jes Vasquez on 06-19-2022 Anion gap [Moles/Vol] 10.9 mmol/L 6.0-15.0 [facility] Serum or plasma creatine kin ase MB (CKMB)/total creatine kinase (CK) ratio by calculaOrdered By: Jes Vasquez on 06-19-2022 CK.MB Calc [Catalytic fraction] 6.5 % 0.00-2.50 [facility] Serum or plasma high density lipoprotein (HDL) cholesterol measurementOrdered By: Jes Vasquez on 06-19-2022 Cholesterol in HDL [Mass/Vol] 68 mg/dL 35-85 [facility] Comment on above: HDL CHOL ATP-III CLA SSIFICATION Cardiovascular RiskHDL > or equal to 60 mg/dL LOWHDL < 40 mg/dL HIGH Serum or plasma total choles terol/high density lipoprotein (HDL) cholesterol mass ratOrdered By: Jes Vasquez on 06-19-2022 Cholesterol.total/Adela sterol in HDL [Mass ratio] 2.8 {ratio} <5.0 [facility] Sodium [Moles/volume] in Ser um or PlasmaOrdered By: Jes Vasquez on 06-19-2022 Sodium [Moles/Vol] 139 mmol/L 136-145 [facility] THYROID SCREENon 06-19-2022 Free T4 [Mass/Vol] 0.63 ng/dL Normal 0.61-1.12 [facility] Comment on above: Order Comment: Reaso n for Exam Other chest pain;Primary hypertension Performed By: #### T HYROID SC, BNP, HSCRP, CK, CMP, LIPID, CKMB, CBC #### [facility] [address] TSH Qn 2.33 m[IU]/L Normal 0.45-5.33 [facility] Comment on above: Order Comment: Reaso n for Exam Other chest pain;Primary hypertension Result Comment: PERF ORMED BY: [place] [address] PATHOLOGIST [employer] PALOMO WESLEY M.D. Performed By: #### T HYROID SC, BNP, HSCRP, CK, CMP, LIPID, CKMB, CBC #### [facility] [address] Thyrotropin [Units/volume] i n Serum or PlasmaOrdered By: Jes Vasquez on 06-19-2022 TSH Qn 2.33 m[IU]/L 0.45-5.33 [facility] Thyroxine (T4) free [Mass/vo lume] in Serum or PlasmaOrdered By: Jes Vasquez on 06-19-2022 Free T4 [Mass/Vol] 0.63 ng/dL 0.61-1.12 [facility] Triglyceride [Mass/volume] i n Serum or PlasmaOrdered By: Jes Vasquez on 06-19-2022 Triglyceride [Mass/Vol] 241 mg/dL 0-149 [facility] Comment on above: TRIG ATP III CLASSIF ICATIONTRIG less than 150 mg/dL NormalTRIG 150-199 mg/dL Borderline highTRIG 200-500 mg/dL High TRIG greater than 500 mg/dL Very highStandard traceable to the Center for Disease Conrtrol and Prevention (CDC) test method. Urea nitrogen [Mass/volume] in Serum or PlasmaOrdered By: Jes Vasquez on 06-19-2022 Urea nitrogen [Mass/Vol] 9 mg/dL 7-25 [facility] WBC Auto (Bld) [#/Vol]Ordere d By: Jes Vasquez on 06-19-2022 WBC (Bld) [#/Vol] 8.2 10*3/uL 3.8-11.6 [facility] CARDIAC BJORN ADMITon 023 CK [Catalytic activity/Vol] 54 U/L Normal 26-192 [facility] Comment on above: Performed By: #### C MADM, CMP #### [facility] [address] [address] [address] Howard Guthrie CK.MB [Mass/Vol] 1.70 ng/mL Normal <=3.60 [facility] Comment on above: Performed By: #### C MADM, CMP #### [facility] [address] [address] [address] Howard Guthrie HSTROP <4.0 Normal 4.0-51.3 [facility] Comment on above: Result Comment: CUT- OFF POINTS HAVE BEEN ESTABLISHED BASED ON THE FOURTH UNIVERSAL DEFINITIONS OF MYOCARDIAL INFARCTION. THE UPPER REFERENCE LIMIT (URL) OF TROPONIN, DEFINED THE 99TH PERCENTILE OF cTnI DISTRIBUTION IN A REFERENCE POPULATION, HAS BEEN CONFIRMED THE DECISION THRESHOLD FOR NM DIAGNOSIS. Performed By: #### C MADM, CMP #### [facility] [address] [address] [address] Howard Guthrie NYA 23 ng/mL Normal 9-82 [facility] Comment on above: Performed By: #### C MADM, CMP #### [facility] [address] [address] [address] Howard Guthrie CBC AUTO DIFFon 06-17-2022 BASO # 0.1 103/ul Normal 0.0-0.1 [facility] Comment on above: Performed By: #### C BC #### [facility] [address] [address] [address] Howard Guthrie Basophils/100 WBC (Bld) 1.0 % Normal 0.2-2.0 [facility] Comment on above: Performed By: #### C BC #### [facility] [address] [place] [address] Dr. Howard Guthrie EO # 0.2 103/ul Normal 0.0-0.7 [facility] Comment on above: Performed By: #### C BC #### [facility] [address] [address] [address] Howard Guthrie Eosinophils/100 WBC (Bld) 2.9 % Normal 0.9-7.0 [facility] Comment on above: Performed By: #### C BC #### [facility] [address] [place] [address] Dr. Howard Guthrie Erythrocyte distribution width (RBC) [Ratio] 12.7 % Normal 11.0-15.0 [facility] Comment on above: Performed By: #### C BC #### [facility] [address] [place] [address] Dr. Howard Guthrie Hematocrit (Bld) [Volume fraction] 42.5 % Normal 36.0-48.0 [facility] Comment on above: Performed By: #### C BC #### [facility] [address] [place] [address] Dr. Howard Guthrie Hemoglobin (Bld) [Mass/Vol] 14.7 g/dL Normal 12.0-16.0 [facility] Comment on above: Performed By: #### C BC #### [facility] [address] [place] [address] Dr. Howard Guthrie IG # 0.02 10e3/ul Normal 0.00-0.03 [facility] Comment on above: Performed By: #### C BC #### [facility] [address] [place] [address] Dr. Howard Guthrie IG % 0.3 % Normal 0.0-0.5 [facility] Comment on above: Performed By: #### C BC #### [facility] [address] [place] [address] Dr. Howard Guthrie LYMPH # 2.1 103/ul Normal 1.2-3.8 [facility] Comment on above: Performed By: #### C BC #### [facility] [address] [place] [address] Dr. Howard Guthrie Lymphocytes/100 WBC (Bld) 28.4 % Normal 20.5-60.0 [facility] Comment on above: Performed By: #### C BC #### [facility] [address] [place] [address] Dr. Howard Guthrie MANUAL DIFF REQ NO Normal [facility] Comment on above: Performed By: #### C BC #### [facility] [address] [place] [address] Dr. Howard Guthrie MCH (RBC) [Entitic mass] 33.1 pg Normal 26.7-34.0 [facility] Comment on above: Performed By: #### C BC #### [facility] [address] [place] [address] Dr. Howard Guthrie MCHC (RBC) [Mass/Vol] 34.6 g/dL Normal 29.9-35.2 [facility] Comment on above: Performed By: #### C BC #### [facility] [address] [place] [address] Dr. Howard Guthrie MCV (RBC) [Entitic vol] 95.7 fL Normal 81.0-99.0 [facility] Comment on above: Performed By: #### C BC #### [facility] [address] [place] [address] Dr. Howard Guthrie MONO # 1.0 103/ul Critically high 0.3-0.8 [facility] Comment on above: Performed By: #### C BC #### [facility] [address] [place] [address] Dr. Howard Guthrie Monocytes/100 WBC (Bld) 13.1 % Critically high 1.7-12. 0 [facility] Comment on above: Performed By: #### C BC #### [facility] [address] [place] [address] Dr. Howard Guthrie NEUT # 4.0 103/ul Normal 1.4-6.5 [facility] Comment on above: Performed By: #### C BC #### [facility] [address] [place] [address] Dr. Howard Guthrie Neutrophils/100 WBC (Bld) 54.3 % Normal 43.0-75.0 [facility] Comment on above: Performed By: #### C BC #### [facility] [address] [place] [address] Dr. Howard Guthrie Platelet mean volume (Bld) [Entitic vol] 10.0 fL Normal 9.5-13.5 [facility] Comment on above: Performed By: #### C BC #### [facility] [address] [place] [address] Dr. Howard Guthrie PLT 343 103/ul Normal 150-450 [facility] Comment on above: Performed By: #### C BC #### [facility] [address] [place] [address] Dr. Howard Guthrie RBC 4.44 106/ul Normal 4.20-5.40 [facility] Comment on above: Performed By: #### C BC #### [facility] [address] [place] [address] Dr. Howard Guthrie WBC 7.4 103/ul Normal 4.0-11.0 [facility] Comment on above: Performed By: #### C BC #### [facility] [address] [place] [address] Dr. Howard Guthrie D-DIMERon 06-17-2022 D-DIMER 0.43 mg/L FEU Normal <=0.59 [facility] Comment on above: Performed By: #### D DIM #### [facility] [address] [place] [address] Dr. Howard Guthrie D-DIMER COMMENTS SEE BELOW Normal [facility] Comment on above: Result Comment: Incr [...] By: #### D DIM #### [facility] [address] [place] [address] Dr. Howard Guthrie ER URINE PROFILEon 3 Bilirubin Ql (U) Negative Normal NEGATIVE [facility] Comment on above: Performed By: #### U MICRO, ERUR #### [facility] [address] [place] [address] Dr. Howard Guthrie Clarity (U) CLEAR Normal CLEAR [facility] Comment on above: Performed By: #### U MICRO, ERUR #### [facility] [address] [place] [address] Dr. Howard Guthrie Color (U) LT. YELLOW Normal YELLOW [facility] Comment on above: Performed By: #### U MICRO, ERUR #### [facility] [address] [place] [address] Dr. Howard Guthrie ERUAHD A micrscopic examination will be performed if indicated. Normal [facility] Comment on above: Performed By: #### U MICRO, ERUR #### [facility] [address] [place] [address] Dr. Howard Guthrie Glucose Ql (U) Negative Normal NEGATIVE [facility] Comment on above: Performed By: #### U MICRO, ERUR #### [facility] [address] [address] [address] Howard Guthrie Hemoglobin Ql (U) SMALL Abnormal NEGATIVE [facility] Comment on above: Performed By: #### U MICRO, ERUR #### [facility] [address] [place] [address] Dr. Howard Guthrie Ketones Ql (U) Negative Normal NEGATIVE [facility] Comment on above: Performed By: #### U MICRO, ERUR #### [facility] [address] [address] [address] Howard Guthrie LEUKOCYTES Negative Normal NEGATIVE [facility] Comment on above: Performed By: #### U MICRO, ERUR #### [facility] [address] [place] [address] Dr. Howard Guthrie Nitrite Ql (U) Negative Normal NEGATIVE [facility] Comment on above: Performed By: #### U MICRO, ERUR #### [facility] [address] [place] [address] Dr. Howard Guthrie pH (U) 7.0 [pH] Normal 5-9 [facility] Comment on above: Performed By: #### U MICRO, ERUR #### [facility] [address] [place] [address] Dr. Howard Guthrie SPEC GRAVITY 1.015 Normal 1.005-<=1.0 25 [facility] Comment on above: Performed By: #### U MICRO, ERUR #### [facility] [address] [address] [address] Howard Guthrie UA PROTEIN Negative Normal NEGATIVE/ TRACE [facility] Comment on above: Performed By: #### U MICRO, ERUR #### [facility] [address] [address] [address] Howard Guthrie UR MICRO IND INDICATED Normal [facility] Comment on above: Performed By: #### U MICRO, ERUR #### [facility] [address] [place] [address] Dr. Howard Guthrie Urobilinogen Qn (U) 0.2 {Abdiaziz'U}/dL Normal 0.2 - 1. 0 [facility] Comment on above: Performed By: #### U MICRO, ERUR #### [facility] [address] [address] [address] Howard Guthrie PROF 14(COMP METB)on 023 Albumin [Mass/Vol] 3.8 g/dL Normal 3.4-5.0 [facility] Comment on above: Performed By: #### C MADM, CMP #### [facility] [address] [address] [address] Howard Guthrie Albumin/Globulin [Mass ratio] 1.1 {ratio} Normal [facility] Comment on above: Performed By: #### C MADM, CMP #### [facility] [address] [address] [address] Howard Guthrie ALP [Catalytic activity/Vol] 96 U/L Normal 46-116 [facility] Comment on above: Performed By: #### C MADM, CMP #### [facility] [address] [address] [address] Howard Guthrie ALT [Catalytic activity/Vol] 19 U/L Normal 14-59 [facility] Comment on above: Performed By: #### C MADM, CMP #### [facility] [address] [address] [address] Howard Guthrie Anion gap [Moles/Vol] 11.2 mmol/L Normal [facility] Comment on above: Performed By: #### C MADM, CMP #### [facility] [address] [address] [address] Howard Guthrie AST [Catalytic activity/Vol] 19 U/L Normal 15-37 [facility] Comment on above: Performed By: #### C MADM, CMP #### [facility] [address] [address] [address] Howard Guthrie Bilirubin [Mass/Vol] 0.5 mg/dL Normal 0.2-1.0 [facility] Comment on above: Performed By: #### C MADM, CMP #### [facility] [address] [address] [address] Howard Guthrie Calcium [Mass/Vol] 8.8 mg/dL Normal 8.5-10.1 [facility] Comment on above: Performed By: #### C MICHAELM, CMP #### [facility] [address] [place] [address] Dr. Howard Guthrie Chloride [Moles/Vol] 104 mmol/L Normal 98-107 [facility] Comment on above: Performed By: #### C MICHAELM, CMP #### [facility] [address] [place] [address] Dr. Howard Guthrie CO2 [Moles/Vol] 24.1 mmol/L Normal 21.0-32.0 [facility] Comment on above: Performed By: #### C JORDAN, CMP #### [facility] [address] [place] [address] Dr. Howard Guthrie Creatinine [Mass/Vol] 0.73 mg/dL Normal 0.55-1.02 [facility] Comment on above: Performed By: #### C JORDAN, CMP #### [facility] [address] [place] [address] Dr. Howard Guthrie EGFR-AF SAMOAN >60 Normal >=60 [facility] Comment on above: Performed By: #### C JORDAN, CMP #### [facility] [address] [place] [address] Dr. Howard Guthrie EGFR-NON AF SAMOAN >60 Normal >=60 [facility] Comment on above: Performed By: #### C JORDAN, CMP #### [facility] [address] [place] [address] Dr. Howard Guthrie Globulin (S) [Mass/Vol] 3.6 g/dL Normal [facility] Comment on above: Performed By: #### C MICHAELM, CMP #### [facility] [address] [place] [address] Dr. Howard Guthrie Glucose [Mass/Vol] 112 mg/dL Critically high 74-106 [facility] Comment on above: Performed By: #### C MICHAELM, CMP #### [facility] [address] [place] [address] Dr. Howard Guthrie Potassium [Moles/Vol] 3.3 mmol/L Critically low 3.5-5.1 [facility] Comment on above: Performed By: #### C JORDAN, CMP #### [facility] [address] [place] [address] Dr. Howard Guthrie Protein [Mass/Vol] 7.4 g/dL Normal 6.4-8.2 [facility] Comment on above: Performed By: #### C JORDAN, CMP #### [facility] [address] [place] [address] Dr. Howard Guthrie Sodium [Moles/Vol] 136 mmol/L Normal 136-145 [facility] Comment on above: Performed By: #### C JORDAN, CMP #### [facility] [address] [place] [address] Dr. Howard Guthrie Urea nitrogen [Mass/Vol] 6.0 mg/dL Critically low 7.0-18.0 [facility] Comment on above: Performed By: #### Terrie ORTEGA, CMP #### [facility] [address] [place] [address] Dr. Howard Guthrie Urea nitrogen/Creatinine [Mass ratio] 8.2 mg/mg Normal [facility] Comment on above: Performed By: #### C JORDAN, CMP #### [facility] [address] [place] [address] Dr. Howard Guthrie TROPONIN, HIGH SENSITIVITYon 06-17-2022 HSTROP 4.6 pg/mL Normal 4.0-51.3 [facility] Comment on above: Result Comment: CUT- OFF POINTS HAVE BEEN ESTABLISHED BASED ON THE FOURTH UNIVERSAL DEFINITIONS OF MYOCARDIAL INFARCTION. THE UPPER REFERENCE LIMIT (URL) OF TROPONIN, DEFINED THE 99TH PERCENTILE OF cTnI DISTRIBUTION IN A REFERENCE POPULATION, HAS BEEN CONFIRMED THE DECISION THRESHOLD FOR NM DIAGNOSIS. Performed By: #### H STROPN #### [facility] [address] [place] [address] Dr. Howard Guthrie URINE MICROSCOPIC ONLYon BACTERIA TRACE Abnormal NONE SEEN The [facility] Comment on above: Performed By: #### U MICRO, ERUR #### [facility] [address] [place] [address] Dr. Howard Guthrie Bacteria identified Cx Nom (U) NOT INDICATED Normal The [facility] Comment on above: Performed By: #### U MICRO, ERUR #### [facility] [address] [place] [address] Dr. Howard Guthrie CAST NONE SEEN Normal NONE SEEN [facility] Comment on above: Performed By: #### U MICRO, ERUR #### [facility] [address] [place] [address] Dr. Howard Guthrie Crystals LM Nom (Urine sed) NONE SEEN Normal NONE SEEN The [facility] Comment on above: Performed By: #### U MICRO, ERUR #### [facility] [address] [place] [address] Dr. Howard Guthrie Epithelial cells LM Ql (Urine sed) FEW Abnormal NONE SEEN /RARE The [facility] Comment on above: Performed By: #### U MICRO, ERUR #### [facility] [address] [place] [address] Dr. Howard Guthrie MUCOUS TRACE Abnormal NONE SEEN The [facility] Comment on above: Performed By: #### U MICRO, ERUR #### [facility] [address] [place] [address] Dr. Howard Guthrie RBC 2-5 Abnormal 0-2 The [facility] Comment on above: Performed By: #### U MICRO, ERUR #### [facility] [address] [place] [address] Dr. Howard Guthrie WBC NONE SEEN Normal NONE SEEN The [facility] Comment on above: Performed By: #### U MICRO, ERUR #### [facility] [address] [place] [address] Dr. Howard Guthrie XR CHEST 1 Von [...] Date: 2022-06-17 12:26 Normal The [facility] Tobacco Screening.on 022 Adult depression screening assessment No -[facility] 250 DO Work Phone: Tobacco use status [facility]PHS a) Yes M -[facility] 250 DO Work Phone: Tobacco Screening. Yes [facility] DO Work Phone: Vital Signs Date Time Vital Sign Value Performing Clinician Faci lity 03-22-2023 13:16-0500 Blood Pressure Location [facility] 03-22-2023 13:16-0500 Diastolic blood pressure 85 mm[Hg] [facility] 03-22-2023 13:16-0500 Heart rate 90 /min [facility] 03-22-2023 13:16-0500 SaO2% (BldA) [Mass fraction] 99 % Ram[facility] 03-22-2023 13:16-0500 Systolic blood pressure 126 mm[Hg] [facility] 12-15-2022 13:20-0400 Body height 165.1 cm Loretta Javier Other [facility] Other 12-15-2022 13:20-0400 Body mass index (BMI) [Ratio] 23.13 kg/m2 Loretta Javier Other [facility] Other 12-15-2022 13:20-0400 Body temperature 98.1 [degF] Loretta Yaya Other [facility] Other 12-15-2022 13:20-0400 Body weight 63.05 kg Loretta Javier Other [facility] Other 12-15-2022 13:20-0400 Diastolic blood pressure 76 mm[Hg] Loretta Javier Other [facility] Other 12-15-2022 13:20-0400 Respiratory rate 18 /min Loretta Javier Other [facility] Other 12-15-2022 13:20-0400 SaO2% (BldA) [Mass fraction] 98 % Loretta Javier Other [facility] Other 12-15-2022 13:20-0400 Systolic blood pressure 128 mm[Hg] Loretta Yaya Other [facility] Other 10-14-2022 11:10-0400 Body height 165.1 cm Tanya Belen Other [facility] Other 10-14-2022 11:10-0400 Body mass index (BMI) [Ratio] 23.39 kg/m2 Tanya Belen Other [facility] Other 10-14-2022 11:10-0400 Body temperature 97.8 [degF] Tanya Belen Other [facility] Other 10-14-2022 11:10-0400 Body weight 63.78 kg Tanya Belen Other [facility] Other 10-14-2022 11:10-0400 Diastolic blood pressure 85 mm[Hg] Tanya Glover Other [facility] Other 10-14-2022 11:10-0400 Respiratory rate 18 /min Tanya Glover Other [facility] Other 10-14-2022 11:10-0400 SaO2% (BldA) [Mass fraction] 99 % Tanya Glover Other [facility] Other 10-14-2022 11:10-0400 Systolic blood pressure 143 mm[Hg] Tanya Glover Other [facility] Other 06-24-2022 09:32-0400 Body height 165.1 cm No PCP None [facility] [employer] 250 DO Work Phone: 06-24-2022 09:32-0400 Body mass index (BMI) [Ratio] 24.63 kg/m2 No PCP None [facility] [employer] 250 DO Work Phone: 06-24-2022 09:32-0400 Body surface area Derived from formula 1.74 m2 No PCP None [facility] [employer] 250 DO Work Phone: 06-24-2022 09:32-0400 Body weight 67.13 kg No PCP None [facility] [employer] 250 DO Work Phone: 06-24-2022 09:32-0400 Diastolic blood pressure 82 mm[Hg] No PCP None [employer] [facility] [employer] 250 DO Work Phone: 06-24-2022 09:32-0400 Heart rate 88 /min No PCP None [facility] 250 DO Work Phone: 06-24-2022 09:32-0400 Systolic blood pressure 124 mm[Hg] No PCP None [facility] 250 DO Work Phone: 06-02-2021 15:09-0500 Diastolic blood pressure 98 mm[Hg] No PCP None [facility] 250 DO Work Phone: 06-02-2021 15:09-0500 Systolic blood pressure 142 mm[Hg] No PCP None [facility] 250 DO Work Phone: 06-02-2021 15:03-0500 Body height 165.1 cm No PCP None [facility] 250 DO Work Phone: 06-02-2021 15:03-0500 Body mass index (BMI) [Ratio] 28.29 kg/m2 No PCP None [facility] 250 DO Work Phone: 06-02-2021 15:03-0500 Body surface area Derived from formula 1.85 m2 No PCP None [facility] 250 DO Work Phone: 06-02-2021 15:03-0500 Body weight 77.11 kg No PCP None [facility] 250 DO Work Phone: 06-02-2021 15:03-0500 Diastolic blood pressure 90 mm[Hg] No PCP None [facility] 250 DO Work Phone: 06-02-2021 15:03-0500 Heart rate 92 /min No PCP None [facility] 250 DO Work Phone: 06-02-2021 15:03-0500 Systolic blood pressure 142 mm[Hg] No PCP None [facility] 250 DO Work Phone: Encounters Encounter Date Encounter Type Care Provider Facility Start: 04-16-2023 End: 04-16-2023 Patient encounter procedure Ramone Garcia [facility] Start: 04-01-2023 End: 04-01-2023 ambulatory Jes Vasquez Facility:[facility] Start: 03-22-2023 End: 03-23-2023 ambulatory Ramone Garcia Facility:[facility] Start: 03-22-2023 End: 03-22-2023 Patient encounter procedure Ramone Garcia [facility] Start: 12-15-2022 End: 12-15-2022 ambulatory Loretta Javier Other [facility] Other Start: 12-15-2022 Office outpatient visit 25 minutes Loretta Javier [facility] Start: 10-14-2022 End: 10-14-2022 ambulatory Tanya Glover Other [facility] Other Start: 10-14-2022 Office outpatient visit 15 minutes Tanyahai Glover [facility] Start: 08-14-2022 ambulatory Ms. Jes Vasquez Facility: Start: 08-14-2022 [facility]UV, Provider: Nadia Franks, Status: Pen, Time: 1:00 PM No PCP None [facility] 250 DO Work Phone: Start: 08-06-2022 Rx Renewal No PCP None [employer] [facility] 250 DO Work Phone: Start: 06-24-2022 Office outpatient visit 15 minutes No PCP None [facility] 250 DO Work Phone: Start: 06-24-2022 ambulatory Ms. Nadia Tinajero Migel mendoza Facility: Start: 06-19-2022 End: 06-19-2022 ambulatory Jes Natasha Vasquez Facility:[facility] Start: 06-19-2022 End: 06-19-2022 ambulatory PHYSICIAN NO [facility] Work Phone: Start: 06-19-2022 End: 06-19-2022 Departed Referred PHYSICIAN NO [facility] Start: 06-17-2022 End: 06-17-2022 ambulatory RIVER MARTE . Facility:[facility] Start: 11-10-2021 ambulatory Ms. Nadia mendoza Facility: Start: 10-27-2021 Rx Renewal No PCP None [employer] [facility] 250 DO Work Phone: Start: 06-02-2021 Office outpatient visit 25 minutes No PCP None [facility] 250 DO Work Phone: Procedures Date Procedure Procedure Detail Performing Clinician Cardiac catheter (physical object) Ramone Garica Cardiac catheterization No P CP None Colonoscopy Ramone Chase rson Hysterectomy Ramone Chase rson Operative procedure on foot No PCP None Procedure on back No PCP Non e Procedure on back Ramone salomon Plan of Treatment Date Care Activity Detail Author Start: 08-14-2022 FUV, Provider: Nadia Franks, Status: Pen, Time: 1:00 PM [facility]UV, Provider: Nadia Franks, Status: Pen, Time: 1:00 PM [facility] 250 DO Work Phone: Start: 11-10-2021 FUV, Provider: Nadia Franks, Status: Pen, Time: 3:00 PM [facility]UV, Provider: Nadia Franks, Status: Pen, Time: 3:00 PM [facility] 250 DO Work Phone: Start: 06-30-2021 FUV, Provider: Nadia Franks, Status: Pen, Time: 8:00 AM [facility]UV, Provider: Nadia Franks, Status: Pen, Time: 8:00 AM [facility] 250 DO Work Phone: Immunizations Immunization Date Immunization Notes Care Provider Fa [facility] 03-25-2021 influenza, injectabl e, quadrivalent, preservative free No PCP None [facility] 01-05-2020 influenza, injectabl e, quadrivalent, preservative free No PCP None -[facility] 250 DO Work Phone: 01-06-2019 influenza, injectabl e, quadrivalent, preservative free [facility] Payers Date Payer Category Payer Self-pay [id number] 1970 Unknown [id number] 1970 Unknown [id number] 1970 Unknown [id number] 1970 Unknown [id number] 1970 Unknown [id number] 1958 Medicaid [id number] Private Health Insurance [id number] Unknown [id number] Unknown [facility] [employer] [facility] Unknown [id number] Unknown [id number] Unknown [id number] Social History Date Type Detail Facility [facility] Start: 1970 Sex Assigned At Female [facility] Illicit drug use Illicit drug use [facility] 250 DO Work Phone: Comment on above: 1 pack per daily.; Start: 05-26-2021 Tobacco smoking stat us NHIS Ex-smoker (finding) [facility] Sex Assigned At [facility] Start: 03-22-2023 Tobacco smoking status Light t obacco smoker (finding) [facility] Tobacco smoking status Never [facility] Medical Equipment Procedure Code Equipment Code Equipment Origin al Text Equipment Identifier Dates Thoracotomy Staple line-reinforcement strip [id number] FDA Start: 03-26-2021 Thoracotomy Surgical adhesive/sealant, human-derived ()[id number] FDA Start: 03-26-2021 Goals Date Patient Goal Desired Activity /State Functional Status Date Assessment Result Facility 03-22-2023 Functional Status No [facility] Evaluation note 12-15-2022 Note Date & Type [...] understanding and is agreeable to treatment plan [facility] Other Evaluation note 10-14-2022 Note Date & [...] - Z20.822) Oct, Bronchitis (ICD-10 - J40) [facility] Other Evaluation + Plan note Radiology Note Date & Type Note Facility Evaluation + Plan note Future Appointments Appointment Date:05/13/2023 03:45:00 PM Scheduled Provider:Ramone Garcia MD Location:[facility] Appointment Type:Cardiology Follow Up ([facility]) Future Scheduled TestsNM Myocardial Spect Rest/Stress 1 Day 03/22/23Echo Transthoracic Complete 03/22/23 [facility] Evaluation + Plan note Note Date & Type Note Facility Evaluation + Plan note Future Appointments Appointment Date:05/13/2023 03:45:00 PM Scheduled Provider:Ramone Garcia MD Location:[facility] Appointment Type:Cardiology Follow Up ([facility]) [facility] Evaluation note Note Date & Type Note Facility [facility] History general Narrative - Reported Note Date & Type Note Facility History general Narrative - Reported Type Surgical History hysterectomy Surgical History lumbar [facility] Other History of Present illness Narrative Note [...] medication regimen. She denies medication side effects. -[facility] Lopez DO Work Phone: Hospital course Narrative Note Date & Type Note Facility Hospital course Narrative No data available for this section [facility] Hospital Discharge instructions Note Date & Type Note Facility Hospital Discharge instructions No data available for this section [facility] Progress note Note Date & Type Note Facility Progress note No data available for this section [facility] Assessments No Assessments Information Available Family History [...] dyspnea. * Patient was recently hospitalized at [facility]. The patient was seen in Cardiology consult with subsequent cardiovascular management by [facility]. Hospitalization records have been reviewed. * Reason for Cardiology Consultation: chest pain (presented with spontaneous PTX) * Consulting Motor Operator: Dr. Lopez * Cardiovascular testing: cardiac cath [...] evaluation. * Last week she presented to [facility] due to chest pain and dizziness. [...] and fluttering . 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 Due to blood pressure and palpitations [...] Personnel Name: JES VASQUEZ CNP Address: Address: [address] [place] [id number] Team Status: Active Member Role Status Dates PHYSICIAN NO FAMILY Primary Care Provider Active Team Status: Inactive Member Role Status Dates PHYSICIAN NO FAMILY Primary Care Provider Active Jes Vasquez , SLACKMAN-C Attending Provide r Active Goals (unrecognized section and content) Goals may be documented in a n alternate sectionNo InformationNo Information No data available for this section No data available for this section INFORMATION SOURCE (unrecogn ized section and content) DATE CREATED AUTHOR 06/24/2022 [employer] DATE CREATED AUTHOR AUTHOR'S ORGANIZ ATION 07/29/2022 [facility] DATE CREATED AUTHOR AUTHOR'S ORGANIZ ATION 08/16/2022 [facility] DATE CREATED AUTHOR AUTHOR'S ORGANIZ ATION 04/12/2023 [facility] DATE CREATED AUTHOR AUTHOR'S ORGANIZ ATION 04/15/2023 [facility] REASON FOR VISIT (unrecogniz ed section and [...] BE BASED ON THE PRIMARY CLINICAL RECORDS. [facility]. provides no warranty or guarantee of the accuracy or completeness of information in this document.
[2023-05-03 07:17] LABS: Basophils Absolute Auto 0.1 10^3/uL (0.0-0.1); Basophils Percent Auto 0.6 % (0.2-2.0); Eosinophils Absolute Auto 0.2 10^3/uL (0.0-0.7); Eosinophils Percent Auto 2.1 % (0.9-7.0); Hematocrit 40.2 % (36.0-48.0); Hemoglobin 13.3 g/dL (12.0-16.0); Immature Granulocytes Abs Auto 0.04 10^3/uL (0.00-0.03); Immature Granulocytes Pct Auto 0.4 % (0.0-0.5); Lymphocytes Absolute Auto 2.8 10^3/uL (1.2-3.8); Mean Corpuscular HGB Conc 33.1 g/dL (29.9-35.2); Mean Corpuscular Hemoglobin 33.6 pg (26.7-34.0); Mean Corpuscular Volume 101.5 fL (81.0-99.0); Mean Platelet Volume 9.1 fL (9.5-13.5); Monocytes Absolute Auto 1.2 10^3/uL (0.3-0.8); Monocytes Percent Auto 12.9 % (1.7-12.0); Neutrophils Absolute Auto 5.1 10^3/uL (1.4-6.5); Platelet Count 336 10^3/uL (150-450); Red Blood Count 3.96 10^6/uL (4.20-5.40); Red Cell Distribution Width 13.9 % (11.0-15.0); White Blood Count 9.5 10^3/uL (4.0-11.0)
[2023-05-03 07:38] LABS: Glucometer 126 mg/dL (74-106)
[2023-05-03] MEDS: PREGABALIN 75 MG CAPSULE PO (07:45)
[2023-05-03] MEDS: FAMOTIDINE 20 MG TABLET PO (07:45)
[2023-05-03] MEDS: ACETAMINOPHEN 500 MG TABLET 1000 MG PO (07:45)
[2023-05-03] MEDS: CELECOXIB 200 MG CAPSULE PO (07:46)
[2023-05-03] MEDS: LACTATED RINGER'S SOLUTION 1,000 ML 50 ML IV ×2 (07:46→10:13)
[2023-05-03] MEDS: CEFAZOLIN SODIUM/DEXTROSE,ISO 2 GM/50 ML PIGGYBACK IV (09:27)
--- NOTE | 2023-05-03 09:37 | PC.NURSE ---
Patient was consented at [address] Rosenberg for Block in the presence of this senior medical writer. Patient voiced no concerns or questions. O2 cannula with 2 lpm flow applied to patient as well as monitors. Patient was positioned in a side-lying fashion. Dr. Rosenberg medicated patient with Versed and Zofran at this time. Dr. Rosenberg used the bedside ultrasound to locate area for block. Block procedure started at 912 and was complete at 920. Patient tolerated the procedure well. Patient remained on the monitors and O2 until [employer] Daquan Solis RN retrieved patient to go to the OR.
--- NOTE | 2023-05-03 09:57 | PM.ORONB ---
Brief Operative Note Date of procedure: 05/03/23 Pre-op diagnosis: left hallux valgus/rigidus Post-op diagnosis: same as pre-op Procedure: PROCEDURE(S) PERFORMED: 1. First metatarsal phalangeal joint fusion 2. Application of short leg splint 3. Intraoperative fluoroscopy examination *All procedures were performed on the left foot INDICATION FOR PROCEDURE: patient is a 52-year-old female who underwent bunion surgery approximately twenty years ago but over the last year she has noticed increasing pain in her left 1st MPJ as well as recurrence of her bunion. Despite OTC pain medicine including Tylenol and ibuprofen, shoe and activity modification her symptoms of only worsened. I discussed potential risks and benefits of surgical intervention and recommended 1st MPJ fusion for revision bunionectomy. In addition I believe this is the procedure of choice due to asymmetrically narrowed 1st MPJ joint space with cystic formation. All questions were answered to her satisfaction and consent was obtained to undergo the above procedure INTRAOPERATIVE FINDINGS: full-thickness cartilage erosion noted on the lateral aspect of the 1st met head. Residual hallux valgus with the great toe abutting the 2nd toe. Bone quality was soft consistent with osteopenia PROCEDURE IN DETAIL: Patient was identified in pre op and consent was reviewed. Correct side and site were identified and marked. Pre-op antibiotics were started. Patient was brought to OR suite and place on table in a supine position. General anesthesia was administered. A tourniquet was applied. Operative extremity was prepped and draped in usual sterile fashion. Formal time-out was performed and the foot/ankle were exsanguinated and tourniquet inflated. Incision created over dorsal aspect of the 1st MPJ. Bleeders coagulated. EHL protected throughout the procedure. Capsulotomy performed and McGlammry elevator inserted into 1st MPJ. Guide Pin place in 1st metatarsal head. Conical reamers used on 1st metatarsal head to remove cartilage and subchondral bone. Guide pin removed. Conical reamers used on proximal phalanx in a similar manner. 2.0 mm drill used to on each side of the joint. The site was irrigated. 1cc of sparc bone allograft was then packed into the fusion site. A stab incision was placed on the medial aspect of the hallux and blunt dissection down to the proximal phalanx base was performed. A guide wire was then used to pin the MPJ in a rectus position under fluoroscopic guidance. Position was checked both on the table and under fluoroscopy. A saw was used to contour the dorsal aspect of the 1st metatarsal and proximal phalanx to accommodate plate fixation. A 3.[address] over the fusion site and temporarily fixed. Then bar pilot holes were drilled for locking 3.5 mm screws which were measured and placed according to the manufactor's standard directions. Again position was checked under fluoroscopy as well as on the table. Temporary fixation was removed and additional screws were placed. A 4.0 mm cannulated headed screw was inserted over the previously placed guide wire accordingly. Again position of the great toe and hardware placement were checked on the table and under fluoroscopy. The surgical site was irrigated with copious amounts of sterile saline. The incision was then closed in layers. The tourniquet was deflated and a prompt hyperemic response was noted. A dry sterile dressing consisting of Xeroform on the incisions followed by 4 x 4 gauze, ABDs, and Kerlix were applied. Multiple layers of cast padding were then applied to ensure all bony prominences were well-padded. A plaster posterior splint was then applied which was held in place by Darion wraps. Capillary refill time to all digits was evaluated and had appropriate response. POSTOPERATIVE PLAN: Discharge home under family's care Post op instructions provided verbally and written prescription(s) were placed in chart NWB operative foot/ankle x1 wk Follow-up in 1 week Implants: Vilex 3.5 mm plate with 4.0 mm cannulated screw Anesthesia: regional and General-LMA Surgeon: Alok Lopez Mat Cleaning Machine Operator: Samuel Rossi Estimated blood loss (mL): 10 Pathology: none sent Condition: stable Disposition: PACU
[2023-05-03] MEDS: BUPIVACAINE HCL 0.5% PF 50 MG/10 ML VIAL INJ (11:02)
[2023-05-03 11:22] LABS: Glucometer 110 mg/dL (74-106)
--- NOTE | 2023-05-03 11:23 | XR_ITS ---
The [address] [address] Patient Name: MEGHANA KEY MRN: [id number] date: 1970 Sex: F Assigned Patient Location: [facility] Current Patient Location: [facility] Accession/Order Number: [id number] Exam Date: 05/03/2023 11:35 Report Date: 05/03/2023 11:58 At the request of: JUSTINO BHATIA Procedure: XR foot LT min 3V PROCEDURE: XR foot LT min 3V COMPARISON: 02/16/2023 HISTORY: Postop.xr PACU FINDINGS: BONES:Interval fusion of the first metatarsal-phalangeal joint with dorsal plate and screws. No acute fracture, dislocation or mechanical failure. SOFT TISSUES:Forefoot soft tissue swelling and subcutaneous emphysema, postsurgical EFFUSION:None visible. OTHER: Negative. XR/XR foot LT min 3V IMPRESSION: Fusion first metatarsal-phalangeal joint Electronically authenticated by: TYE SUBRAMANIAN Date: 05/03/2023 11:58
== END 2023-05-03 12:30 | disposition home or self-care (01) ==
PROVIDERS: Visit Provider Podiatrist Foot & Ankle Surgery
PROC: (CPT 1480; principal; 2023-05-03 09:00)
DX: M20.12 Hallux valgus (acquired), left foot (principal); M20.22 Hallux rigidus, left foot; I25.10 Atherosclerotic heart disease of native coronary artery without angina pectoris; M85.872 Other specified disorders of bone density and structure, left ankle and foot; Z86.16 Personal history of COVID-19; F32.A Depression, unspecified; F41.9 Anxiety disorder, unspecified; J44.9 Chronic obstructive pulmonary disease, unspecified; K21.9 Gastro-esophageal reflux disease without esophagitis; I10 Essential (primary) hypertension; Z90.710 Acquired absence of both cervix and uterus; F17.290 Nicotine dependence, other tobacco product, uncomplicated
CPT/HCPCS: 28750; 36415; 64445; 73630; 76000; 82948; 85025; C1713; J0665; J0690; J1100; J1885; J2250; J2371; J2704; J2795; J3010

== ENCOUNTER 2023-05-13 11:32 | Outpatient (OUT) | payer OTHER, SELFPAY ==
--- NOTE | 2023-05-13 | XR_ITS ---
The [address] [address] Patient Name: MEGHANA KEY MRN: [id number] date: 1970 Sex: F Assigned Patient Location: [facility] Current Patient Location: [facility] Accession/Order Number: [id number] Exam Date: 05/13/2023 11:34 Report Date: 05/13/2023 13:57 At the request of: KY GRAHAM Procedure: XR foot LT min 3V PROCEDURE: XR foot LT min 3V COMPARISON: 05/03/2023 HISTORY: LEFT FOOT PAIN FINDINGS: BONES:Stable fusion the first metatarsal-phalangeal joint with a dorsal plate and multiple screws. No acute fracture or dislocation or mechanical failure. SOFT TISSUES:Negative. No visible soft tissue swelling. EFFUSION:None visible. OTHER: Negative. XR/XR foot LT min 3V IMPRESSION: Stable first metatarsal-phalangeal joint fusion Electronically authenticated by: TYE SUBRAMANIAN Date: 05/13/2023 13:57
--- OUTSIDE RECORDS SUMMARY | 2023-05-13 11:48 | XMS_ITS | CCD ---
Author Name Unknown Address [address] [place] [address] Organization [facility] Care Team Providers Care Energy Analyst Name Role Phone None, No PCP Unavailable [...] Allergy 09-16-2012 hives, Eruption of skin present [facility] Medications Current Medications Medication Drug Class(es) Dates [...] Daily, # 30 tab(s), Refills(s) 3, Pharmacy: [facility] 1155, 164, cm, 03/22/23 13:24:00 EST, Height/Length [...] qAM, # 30 tab(s), Refills(s) 3, Pharmacy: [facility] 1155, 164, cm, 03/22/23 13:24:00 EST, Height/Length [...] Nocturia, # 60 tab(s), Refills(s) 3, Pharmacy: [facility] 1155, 165, cm, 01/17/20 11:18:00 EDT, Height/Length [...] Drug Class(es) Dates Sig (Normalized) Sig (Original) [id number] 200 actuat albuterol 0.09 mg/actuat metered dose [...] Active Start: 06-02-2021 take 1 capsule by [facility] once daily dilTIAZem HCl ER Coated [...] sources) Coronary atherosclerosis; Translations: [Coronary atherosclerosis of [place] coronary artery] 04-03-2021 Chronic Disorders of lipid [...] with voice recognition artificial intelligence software, specifically [employer], [employer] and or M[employer]. Substitutions may have occurred with voice recognition and artificial intelligence software. Documentation services were performed after patient or guardian consented to allow [employer] to record this visit. ANDERSON speech and language specialist and provider reviewed before signing. ANDERSON: [...] 3 refi (more content not included)... 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 Ordering Provider: Jes Vasquez Date of Service: 04/01/23 US/US renal BI: R31.9 ([id number]) US/US bladder: R31.9 Copies to: Jes Vasquez [...] Johns Jr., D.OShyanne04/01/2023 3:16 PM Dictation Location: [place] [address] Tech: Chloe Delcid Transcribed By: FLORES 04/01/23 151 Dictated By: Freddy Johns Jr, DO 04/01/23 151 Signed By: 04/01/23 151 Normal [facility] XR KUBon 04-01-2023 XR KUB [facility] [address] [address] XRay Report Signed Patient: Meghana Craig MR#: [id number] : 1970 Acct:[id number] Age/Sex: 52 / F ADM Date: 04/01/23 Loc: Room: Type: [facility] Attending 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#1 .00TIFF [facility] Physician Orderon 03-22-2023 Physician Order [id number] #1.00TIFF [facility] Referrals Officeon Referrals Office [id number] #1.00TIFF [facility] COVID Quick Testingon 2022 Result Negative Mundi Other Quick Strepon 12-15-2022 S. pyogenes Org specific cx Ql (Throat) Negative [employer] Other Quick Strep Mundi Other COVID + FLU Quick Testingon 10-14-2022 SARS-CoV-2 (COVID-19) RNA AISSATOU+probe Ql (Unsp spec) Negative Mundi Other COVID + FLU Quick Testing Negative Mundi Other Quick Strepon 10-14-2022 S. pyogenes Org specific cx Ql (Throat) Negative [employer] Other Quick Strep Mundi Other Office Visit (Cardiology)on 06-24-2022 Follow-up visit Diagnoses/Problems Assessed Costochondritis (733.6) (M94.0) Palpitations (785.1) (R00.2) For the most part brief and fleeting, seem most consistent with PVC. Coronary artery disease involving [place] coronary artery of [place] heart without angina pectoris (414.01) (I25.10) Mar [...] contact the office if new symptoms arise. 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 Last week she presented to [facility] due to chest pain and dizziness. [...] and fluttering . 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 Due to blood pressure and palpitations [...] Recorded: 24Jun2022 09:32AM Heart Rate88, R Radial Exoptmhy841, RUE, Si (more content not included)... Normal [employer] Tobacco Screening.on 023 Adult depression screening assessment No -[facility] [employer] 250 DO Work Phone: Tobacco use status CPHS a) Yes M -[facility] [employer] 250 DO Work Phone: Tobacco Screening. Yes [facility] [employer] 250 DO Work Phone: Alanine aminotransferase [En zymatic activity/volume] in Serum or PlasmaOrdered By: Jes Vasquez on 06-19-2022 ALT [Catalytic activity/Vol] 11 U/L 7-52 [facility] Albumin [Mass/volume] in Ser um or Plasma by Bromocresol green (BCG) dye binding methoOrdered By: Jes Vasquez on 06-19-2022 Albumin BCG dye [Mass/Vol] 4.0 g/dL 3.5-5.7 [facility] Alkaline phosphatase [Enzyma tic activity/volume] in Serum or PlasmaOrdered By: Jes Vasquez on 06-19-2022 ALP [Catalytic activity/Vol] 70 U/L 34-104 [facility] Aspartate aminotransferase [ Enzymatic activity/volume] in Serum or PlasmaOrdered By: Jes Vasquez on 06-19-2022 AST [Catalytic activity/Vol] 11 U/L 13-39 [facility] B-Type Natriuretic Peptideon 06-19-2022 Natriuretic peptide B (Bld) [Mass/Vol] 87.0 pg/mL Normal 5-100 [facility] Comment on above: Order Comment: Reaso n for Exam Other chest pain;Primary hypertension Result Comment: PERF ORMED BY: [place] [address] PATHOLOGIST HEPATOLOGIST PALOMO WESLEY M.D. Performed By: #### T HYROID SC, BNP, HSCRP, CK, CMP, LIPID, CKMB, CBC #### [address] Basophils Auto (Bld) [#/Vol] Ordered By: Jes Vasquez on 06-19-2022 Basophils (Bld) [#/Vol] 0.1 10*3/uL 0.0-0.2 [facility] Basophils/100 WBC Auto (Bld) Ordered By: Jes Vasquez on 06-19-2022 Basophils/100 WBC (Bld) 1.2 % . [facility] Bilirubin.total [Mass/volume ] in Serum or PlasmaOrdered By: Jes Vasquez on 06-19-2022 Bilirubin [Mass/Vol] 0.2 mg/dL 0.3-1.0 [facility] C reactive protein [Mass/vol ume] in Serum or Plasma by High sensitivity methodOrdered By: Jes Vasquez on 06-19-2022 CRP High sensitivity method [Mass/Vol] 0.4 mg/L 0.0-0.9 [facility] Comment on above: Cardiovascular Risk Classification (AHA/CDC)hsCRP [...] on 06-19-2022 Calcium [Mass/Vol] 9.1 mg/dL 8.6-10.3 [facility] Carbon dioxide, total [Moles /volume] in Serum or PlasmaOrdered By: Jes Vasquez on 06-19-2022 CO2 [Moles/Vol] 24.4 mmol/L 21.0-31.0 [facility] Chloride [Moles/volume] in S shanna or PlasmaOrdered By: Jes Vasquez on 06-19-2022 Chloride [Moles/Vol] 108 mmol/L 98-107 [facility] Cholesterol [Mass/volume] in Serum or PlasmaOrdered By: Jes Vasuqez on 06-19-2022 Cholesterol [Mass/Vol] 190 mg/dL 140-200 [facility] Comment on above: Chol less than 200 m g/dl low riskChol 201-239 mg/dl borderline riskChol 240 mg/dl and greater high risk Cholesterol in LDL Calc [Mas s/Vol]Ordered By: Jes Vasquez on 06-19-2022 Cholesterol in LDL [Mass/Vol] 74 mg/dL 0-100 [facility] Comment on above: LDL ATP III CLASSIFI CATIONLDL less than 100 mg/dL OptimalLDL 100-129 mg/dL Near or above optimalLDL 130-159 mg/dL Borderline highLDL 160-189 mg/dL HighLDL greater than 189 mg/dL Very high Cholesterol in VLDL Calc [Ma ss/Vol]Ordered By: Jes Vasquez on 06-19-2022 Cholesterol in VLDL [Mass/Vol] 48 mg/dL [facility] Complete Blood Count Auto Di ffon 06-19-2022 Basophils (Bld) [#/Vol] 0.1 10*3/uL Normal 0.0-0.2 [facility] Comment on above: Order Comment: Reaso n for Exam Other chest pain;Primary hypertension Result Comment: PERF ORMED BY: [place] [address] PATHOLOGIST HEPATOLOGIST PALOMO WESLEY M.D. Performed By: #### T HYROID SC, BNP, HSCRP, CK, CMP, LIPID, CKMB, CBC #### [facility] [address] Basophils/100 WBC (Bld) 1.2 % Normal . [facility] Comment on above: Order Comment: Reaso n for Exam Other chest pain;Primary hypertension Performed By: #### T HYROID SC, BNP, HSCRP, CK, CMP, LIPID, CKMB, CBC #### [facility] [address] Eosinophils (Bld) [#/Vol] 0.2 10*3/uL Normal 0.0-0.45 [facility] Comment on above: Order Comment: Reaso n for Exam Other chest pain;Primary hypertension Performed By: #### T HYROID SC, BNP, HSCRP, CK, CMP, LIPID, CKMB, CBC #### [facility] [address] Eosinophils/100 WBC (Bld) 2.5 % Normal . [facility] Comment on above: Order Comment: Reaso n for Exam Other chest pain;Primary hypertension Performed By: #### T HYROID SC, BNP, HSCRP, CK, CMP, LIPID, CKMB, CBC #### [facility] [address] [place] [address] Erythrocyte distribution width (RBC) [Ratio] 13.2 % Normal 11.9-15.3 [facility] Comment on above: Order Comment: Reaso n for Exam Other chest pain;Primary hypertension Performed By: #### T HYROID SC, BNP, HSCRP, CK, CMP, LIPID, CKMB, CBC #### [facility] [address] Hematocrit (Bld) [Volume fraction] 39.3 % Normal 34.0-46.4 [facility] Comment on above: Order Comment: Reaso n for Exam Other chest pain;Primary hypertension Performed By: #### T HYROID SC, BNP, HSCRP, CK, CMP, LIPID, CKMB, CBC #### [address] Hemoglobin (Bld) [Mass/Vol] 13.1 g/dL Normal 11.8-15.4 [facility] Comment on above: Order Comment: Reaso n for Exam Other chest pain;Primary hypertension Performed By: #### T HYROID SC, BNP, HSCRP, CK, CMP, LIPID, CKMB, CBC #### [address] Lymphocytes (Bld) [#/Vol] 2.5 10*3/uL Normal 1.00-4.8 [facility] Comment on above: Order Comment: Reaso n for Exam Other chest pain;Primary hypertension Performed By: #### T HYROID SC, BNP, HSCRP, CK, CMP, LIPID, CKMB, CBC #### [address] Lymphocytes/100 WBC (Bld) 30.3 % Normal . [facility] Comment on above: Order Comment: Reaso n for Exam Other chest pain;Primary hypertension Performed By: #### T HYROID SC, BNP, HSCRP, CK, CMP, LIPID, CKMB, CBC #### [address] MCH (RBC) [Entitic mass] 33.2 pg Normal 24.7-34.3 [facility] Comment on above: Order Comment: Reaso n for Exam Other chest pain;Primary hypertension Performed By: #### T HYROID SC, BNP, HSCRP, CK, CMP, LIPID, CKMB, CBC #### [address] MCV (RBC) [Entitic vol] 99.5 fL Normal 80-100 [facility] Comment on above: Order Comment: Reaso n for Exam Other chest pain;Primary hypertension Performed By: #### T HYROID SC, BNP, HSCRP, CK, CMP, LIPID, CKMB, CBC #### [address] Mean Corpuscular HGB Conc 33.4 g/dL Normal 32.0-35.0 [facility] Comment on above: Order Comment: Reaso n for Exam Other chest pain;Primary hypertension Performed By: #### T HYROID SC, BNP, HSCRP, CK, CMP, LIPID, CKMB, CBC #### [facility] [address] Monocytes (Bld) [#/Vol] 1.0 10*3/uL High 0.0-0.8 [facility] Comment on above: Order Comment: Reaso n for Exam Other chest pain;Primary hypertension Performed By: #### T HYROID SC, BNP, HSCRP, CK, CMP, LIPID, CKMB, CBC #### [facility] [address] [place] [address] [place] Monocytes/100 WBC (Bld) 11.6 % Normal . [facility] Comment on above: Order Comment: Reaso n for Exam Other chest pain;Primary hypertension Performed By: #### T HYROID SC, BNP, HSCRP, CK, CMP, LIPID, CKMB, CBC #### [facility] [address] [place] [address] [place] Neutrophils (Bld) [#/Vol] 4.5 10*3/uL Normal 1.8-7.7 [facility] Comment on above: Order Comment: Reaso n for Exam Other chest pain;Primary hypertension Performed By: #### T HYROID SC, BNP, HSCRP, CK, CMP, LIPID, CKMB, CBC #### [facility] [address] [place] [address] [place] Neutrophils/100 WBC (Bld) 54.4 % Normal . [facility] Comment on above: Order Comment: Reaso n for Exam Other chest pain;Primary hypertension Performed By: #### T HYROID SC, BNP, HSCRP, CK, CMP, LIPID, CKMB, CBC #### [facility] [address] [place] [address] [place] NRBC% 0.2 /100{WBC} Normal 0-0.5 [facility] Comment on above: Order Comment: Reaso n for Exam Other chest pain;Primary hypertension Performed By: #### T HYROID SC, BNP, HSCRP, CK, CMP, LIPID, CKMB, CBC #### [facility] [address] Platelet mean volume (Bld) [Entitic vol] 10.2 fL Normal 6.3-10.7 [facility] Comment on above: Order Comment: Reaso n for Exam Other chest pain;Primary hypertension Performed By: #### T HYROID SC, BNP, HSCRP, CK, CMP, LIPID, CKMB, CBC #### [facility] [address] Platelets (Bld) [#/Vol] 297 10*3/uL Normal 150-450 [facility] Comment on above: Order Comment: Reaso n for Exam Other chest pain;Primary hypertension Performed By: #### T HYROID SC, BNP, HSCRP, CK, CMP, LIPID, CKMB, CBC #### [address] RBC (Bld) [#/Vol] 3.95 10*6/uL Normal 3.60-5.00 [facility] Comment on above: Order Comment: Reaso n for Exam Other chest pain;Primary hypertension Performed By: #### T HYROID SC, BNP, HSCRP, CK, CMP, LIPID, CKMB, CBC #### [address] WBC (Bld) [#/Vol] 8.2 10*3/uL Normal 3.8-11.6 [facility] Comment on above: Order Comment: Reaso n for Exam Other chest pain;Primary hypertension Performed By: #### T HYROID SC, BNP, HSCRP, CK, CMP, LIPID, CKMB, CBC #### [facility] [address] Comprehensive Metabolic Pane bryon 06-19-2022 Albumin [Mass/Vol] 4.0 g/dL Normal 3.5-5.7 [facility] Comment on above: Order Comment: Reaso n for Exam Other chest pain;Primary hypertension Performed By: #### T HYROID SC, BNP, HSCRP, CK, CMP, LIPID, CKMB, CBC #### [facility] [address] Albumin/Globulin [Mass ratio] 1.7 {ratio} Normal [facility] Comment on above: Order Comment: Reaso n for Exam Other chest pain;Primary hypertension Performed By: #### T HYROID SC, BNP, HSCRP, CK, CMP, LIPID, CKMB, CBC #### [facility] [address] ALP [Catalytic activity/Vol] 70 U/L Normal 34-104 [facility] Comment on above: Order Comment: Reaso n for Exam Other chest pain;Primary hypertension Performed By: #### T HYROID SC, BNP, HSCRP, CK, CMP, LIPID, CKMB, CBC #### [facility] [address] ALT [Catalytic activity/Vol] 11 U/L Normal 7-52 [facility] Comment on above: Order Comment: Reaso n for Exam Other chest pain;Primary hypertension Performed By: #### T HYROID SC, BNP, HSCRP, CK, CMP, LIPID, CKMB, CBC #### [facility] [address] [place] [address] Anion gap [Moles/Vol] 10.9 mmol/L Normal 6.0-15.0 [facility] Comment on above: Order Comment: Reaso n for Exam Other chest pain;Primary hypertension Performed By: #### T HYROID SC, BNP, HSCRP, CK, CMP, LIPID, CKMB, CBC #### [facility] [address] [place] [address] AST [Catalytic activity/Vol] 11 U/L Low 13-39 [facility] Comment on above: Order Comment: Reaso n for Exam Other chest pain;Primary hypertension Performed By: #### T HYROID SC, BNP, HSCRP, CK, CMP, LIPID, CKMB, CBC #### [facility] [address] [place] [address] Bilirubin [Mass/Vol] 0.2 mg/dL Low 0.3-1.0 [facility] Comment on above: Order Comment: Reaso n for Exam Other chest pain;Primary hypertension Performed By: #### T HYROID SC, BNP, HSCRP, CK, CMP, LIPID, CKMB, CBC #### [facility] [address] Calcium [Mass/Vol] 9.1 mg/dL Normal 8.6-10.3 [facility] Comment on above: Order Comment: Reaso n for Exam Other chest pain;Primary hypertension Performed By: #### T HYROID SC, BNP, HSCRP, CK, CMP, LIPID, CKMB, CBC #### [facility] [address] Chloride [Moles/Vol] 108 mmol/L High 98-107 [facility] Comment on above: Order Comment: Reaso n for Exam Other chest pain;Primary hypertension Performed By: #### T HYROID SC, BNP, HSCRP, CK, CMP, LIPID, CKMB, CBC #### [facility] [address] CO2 [Moles/Vol] 24.4 mmol/L Normal 21.0-31.0 [facility] Comment on above: Order Comment: Reaso n for Exam Other chest pain;Primary hypertension Performed By: #### T HYROID SC, BNP, HSCRP, CK, CMP, LIPID, CKMB, CBC #### [facility] [address] [place] [address] Creatinine [Mass/Vol] 0.79 mg/dL Normal 0.60-1.20 [facility] Comment on above: Order Comment: Reaso n for Exam Other chest pain;Primary hypertension Performed By: #### T HYROID SC, BNP, HSCRP, CK, CMP, LIPID, CKMB, CBC #### [facility] [address] [place] [address] [place] GFR/1.73 sq M.predicted MDRD (S/P/Bld) [Vol rate/Area] mL/min/{1.73_m2} [facility] Comment on above: Order Comment: Reaso n for Exam Other chest pain;Primary hypertension Performed By: #### T HYROID SC, BNP, HSCRP, CK, CMP, LIPID, CKMB, CBC #### [facility] [address] Globulin (S) [Mass/Vol] 2.3 g/dL Normal F [facility] Comment on above: Order Comment: Reaso n for Exam Other chest pain;Primary hypertension Performed By: #### T HYROID SC, BNP, HSCRP, CK, CMP, LIPID, CKMB, CBC #### [facility] [address] Glucose [Mass/Vol] 94 mg/dL Normal 74-109 [facility] Comment on above: Order Comment: Reaso n for Exam Other chest pain;Primary hypertension Result Comment: [facility] Glucose Reference Range is dependent on time and content of last meal. Glucose of more than 200 mg/dL in a nonstressed, ambulatory subject supports the diagnosis of Diabetes Mellitus. ADA recommended reference range Performed By: #### T HYROID SC, BNP, HSCRP, CK, CMP, LIPID, CKMB, CBC #### [facility] [address] Potassium [Moles/Vol] 4.3 mmol/L Normal 3.5-5.1 [facility] Comment on above: Order Comment: Reaso n for Exam Other chest pain;Primary hypertension Performed By: #### T HYROID SC, BNP, HSCRP, CK, CMP, LIPID, CKMB, CBC #### [facility] [address] Protein [Mass/Vol] 6.3 g/dL Low 6.4-8.9 [facility] Comment on above: Order Comment: Reaso n for Exam Other chest pain;Primary hypertension Performed By: #### T HYROID SC, BNP, HSCRP, CK, CMP, LIPID, CKMB, CBC #### [facility] [address] [place] [address] [place] Sodium [Moles/Vol] 139 mmol/L Normal 136-145 [facility] Comment on above: Order Comment: Reaso n for Exam Other chest pain;Primary hypertension Performed By: #### T HYROID SC, BNP, HSCRP, CK, CMP, LIPID, CKMB, CBC #### [facility] [address] [place] [address] [place] Urea nitrogen [Mass/Vol] 9 mg/dL Normal 7-25 [facility] Comment on above: Order Comment: Reaso n for Exam Other chest pain;Primary hypertension Performed By: #### T HYROID SC, BNP, HSCRP, CK, CMP, LIPID, CKMB, CBC #### [facility] [address] [place] [id number] [place] Creatine Kinaseon 06-19-2022 CK [Catalytic activity/Vol] 35 U/L Normal 30-223 [facility] Comment on above: Order Comment: Reaso n for Exam Other chest pain Performed By: #### T HYROID SC, BNP, HSCRP, CK, CMP, LIPID, CKMB, CBC #### [facility] [address] Creatine kinase [Enzymatic a ctivity/volume] in Serum or PlasmaOrdered By: Jes Vasquez on 06-19-2022 CK [Catalytic activity/Vol] 35 U/L 30-223 [facility] Creatine kinase.MB [Mass/vol ume] in Serum or PlasmaOrdered By: Jes Vasquez on 06-19-2022 CK.MB [Mass/Vol] 2.3 ng/mL 0.6-6.3 [facility] Creatinine Kinase MBon 06-19 CK.MB [Mass/Vol] 2.3 ng/mL Normal 0.6-6.3 [facility] Comment on above: Order Comment: Reaso n for Exam Other chest pain Performed By: #### T HYROID SC, BNP, HSCRP, CK, CMP, LIPID, CKMB, CBC #### [facility] [address] CKMB Relative Index 6.5 % High 0.00-2.50 [facility] Comment on above: Order Comment: Reaso n for Exam Other chest pain Result Comment: PERF ORMED BY: [place] [address] PATHOLOGIST HEPATOLOGIST PALOMO WESLEY M.D. Performed By: #### T HYROID SC, BNP, HSCRP, CK, CMP, LIPID, CKMB, CBC #### [facility] [address] [place] [address] [place] Creatinine [Mass/volume] in Serum or PlasmaOrdered By: Jes Vasquez on 06-19-2022 Creatinine [Mass/Vol] 0.79 mg/dL 0.60-1.20 [facility] Eosinophils Auto (Bld) [#/Vo l]Ordered By: Jes Vasquez on 06-19-2022 Eosinophils (Bld) [#/Vol] 0.2 10*3/uL 0.0-0.45 [facility] Eosinophils/100 WBC Auto (Bl d)Ordered By: Jes Vasquez on 06-19-2022 Eosinophils/100 WBC (Bld) 2.5 % . [facility] Erythrocyte distribution wid th Auto (RBC) [Ratio]Ordered By: Jes Vasquez on 06-19-2022 Erythrocyte distribution width (RBC) [Ratio] 13.2 % 11.9-15.3 [facility] Globulin Calc (S) [Mass/Vol] Ordered By: Jes Vasquez on 06-19-2022 Globulin (S) [Mass/Vol] 2.3 g/dL [facility] Glucose [Mass/volume] in Ser um or PlasmaOrdered By: Jes Vasquez on 06-19-2022 Glucose [Mass/Vol] 94 mg/dL 74-109 [facility] Comment on above: ADA recommended refe rence rangeRandom Glucose Reference Range is dependent on time and content of last meal. Glucose of more than 200 mg/dL in a nonstressed, ambulatory subject supports the diagnosis of Diabetes Mellitus. Hematocrit Auto (Bld) [Volum e fraction]Ordered By: Jes Vasquez on 06-19-2022 Hematocrit (Bld) [Volume fraction] 39.3 % 34.0-46.4 [facility] Hemoglobin [Mass/volume] in BloodOrdered By: Jes Vasquez on 06-19-2022 Hemoglobin (Bld) [Mass/Vol] 13.1 g/dL 11.8-15.4 [facility] High Sensitive CRPon 023 High Sensitive CRP 0.4 mg/L Normal 0.0-0.9 [facility] Comment on above: [...] for estimation of CVD risk. PERFORMED BY: [place] [address] PATHOLOGIST HEPATOLOGIST PALOMO WESLEY M.D. Performed By: #### T HYROID SC, BNP, HSCRP, CK, CMP, LIPID, CKMB, CBC #### [facility] [address] [place] [address] Laboratory - Chemistry and C hemistry - challengeOrdered By: Jes Vasquez on 06-19-2022 GFR/1.73 sq M.predicted MDRD (S/P/Bld) [Vol rate/Area] mL/min/{1.73_m2} [facility] Leukocytes [#/volume] correc ricardo for nucleated erythrocytes in Blood by Automated counOrdered By: Jes Vasquez on 06-19-2022 WBC corrected for nucl RBC Auto (Bld) [#/Vol] 8.2 10*3/uL 3.8-11.6 [facility] Lipid Panelon 06-19-2022 Cholesterol [Mass/Vol] 190 mg/dL Normal 140-200 [facility] Comment on above: Order Comment: Reaso n for Exam Other chest pain;Primary hypertension Result Comment: Chol less than 200 mg/dl low risk Chol 201-239 mg/dl borderline risk Chol 240 mg/dl and greater high risk Performed By: #### T HYROID SC, BNP, HSCRP, CK, CMP, LIPID, CKMB, CBC #### [facility] [address] [place] [address] Cholesterol in HDL [Mass/Vol] 68 mg/dL Normal 35-85 [facility] Comment on above: Order Comment: Reaso n for Exam Other chest pain;Primary hypertension Result Comment: HDL CHOL ATP-III CLASSIFICATION Cardiovascular Risk HDL > or equal to 60 mg/dL LOW HDL < 40 mg/dL HIGH Performed By: #### T HYROID SC, BNP, HSCRP, CK, CMP, LIPID, CKMB, CBC #### [facility] [address] Cholesterol.total/Adela sterol in HDL [Mass ratio] 2.8 {ratio} Normal <5.0 [facility] Comment on above: Order Comment: Reaso n for Exam Other chest pain;Primary hypertension Performed By: #### T HYROID SC, BNP, HSCRP, CK, CMP, LIPID, CKMB, CBC #### [facility] [address] LDL Cholesterol,Calculated 74 mg/dL Normal 0-100 [facility] Comment on above: Order Comment: Reaso n for Exam Other chest pain;Primary hypertension Result Comment: LDL ATP III CLASSIFICATION LDL less than 100 mg/dL Optimal LDL 100-129 mg/dL Near or above optimal LDL 130-159 mg/dL Borderline high LDL 160-189 mg/dL High LDL greater than 189 mg/dL Very high Performed By: #### T HYROID SC, BNP, HSCRP, CK, CMP, LIPID, CKMB, CBC #### [facility] [address] Triglyceride w/Reflex 241 mg/dL High 0-149 [facility] Comment on above: Order Comment: Reaso [...] HSCRP, CK, CMP, LIPID, CKMB, CBC #### [facility] [address] VLDL CHOLESTEROL 48 mg/dL Normal [facility] Comment on above: Order Comment: Reaso n for Exam Other chest pain;Primary hypertension Performed By: #### T HYROID SC, BNP, HSCRP, CK, CMP, LIPID, CKMB, CBC #### [facility] [address] [id number] [facility] Lymphocytes Auto (Bld) [#/Vo l]Ordered By: Jes Vasquez on 06-19-2022 Lymphocytes (Bld) [#/Vol] 2.5 10*3/uL 1.00-4.8 [facility] Lymphocytes/100 WBC Auto (Bl d)Ordered By: Jes Vasquez on 06-19-2022 Lymphocytes/100 WBC (Bld) 30.3 % . [facility] MCH Auto (RBC) [Entitic mass ]Ordered By: Jes Vasquez on 06-19-2022 MCH (RBC) [Entitic mass] 33.2 pg 24.7-34.3 [facility] MCHC Auto (RBC) [Mass/Vol]Or dered By: Jes Vasquez on 06-19-2022 MCHC (RBC) [Mass/Vol] 33.4 g/dL 32.0-35.0 [facility] MCV Auto (RBC) [Entitic vol] Ordered By: Jes Vasquez on 06-19-2022 MCV (RBC) [Entitic vol] 99.5 fL 80-100 [facility] Monocytes Auto (Bld) [#/Vol] Ordered By: Jes Vasquez on 06-19-2022 Monocytes (Bld) [#/Vol] 1.0 10*3/uL 0.0-0.8 [facility] Monocytes/100 WBC Auto (Bld) Ordered By: Jes Vasquez on 06-19-2022 Monocytes/100 WBC (Bld) 11.6 % . [facility] Natriuretic peptide B [Mass/ Vol]Ordered By: Jes Vasquez on 06-19-2022 Natriuretic peptide B (Bld) [Mass/Vol] 87.0 pg/mL 5-100 [facility] Neutrophils Auto (Bld) [#/Vo l]Ordered By: Jes Vasquez on 06-19-2022 Neutrophils (Bld) [#/Vol] 4.5 10*3/uL 1.8-7.7 [facility] Neutrophils/100 WBC Auto (Bl d)Ordered By: Jes Vasquez on 03-17-2023 Neutrophils/100 WBC (Bld) 54.4 % . [facility] No Panel InformationOrdered By: Jes Vasquez on 06-19-2022 Pharmacy Creatinine Clearance (Chem N/A [facility] Nucleated erythrocytes [Pres ence] in Blood by Automated countOrdered By: Jes Vasquez on 06-19-2022 Nucleated RBC Auto Ql (Bld) 0.2 /100{WBC} 0-0.5 [facility] Platelet mean volume Auto (B ld) [Entitic vol]Ordered By: Jes Vasquez on 06-19-2022 Platelet mean volume (Bld) [Entitic vol] 10.2 fL 6.3-10.7 [facility] Platelets Auto (Bld) [#/Vol] Ordered By: Jes Vasquez on 06-19-2022 Platelets (Bld) [#/Vol] 297 10*3/uL 150-450 [facility] Potassium [Moles/volume] in Serum or PlasmaOrdered By: Jes Vasquez on 06-19-2022 Potassium [Moles/Vol] 4.3 mmol/L 3.5-5.1 [facility] Protein [Mass/volume] in Ser um or PlasmaOrdered By: Jes Vasquez on 06-19-2022 Protein [Mass/Vol] 6.3 g/dL 6.4-8.9 [facility] RBC Auto (Bld) [#/Vol]Ordere d By: Jes Vasquez on 06-19-2022 RBC (Bld) [#/Vol] 3.95 10*6/uL 3.60-5.00 [facility] Serum or plasma albumin/glob ulin mass ratioOrdered By: Jes Vasquez on 06-19-2022 Albumin/Globulin [Mass ratio] 1.7 {ratio} [facility] Serum or plasma anion gap de terminationOrdered By: Jes Vasquez on 06-19-2022 Anion gap [Moles/Vol] 10.9 mmol/L 6.0-15.0 [facility] Serum or plasma creatine kin ase MB (CKMB)/total creatine kinase (CK) ratio by calculaOrdered By: Jes Vasquez on 06-19-2022 CK.MB Calc [Catalytic fraction] 6.5 % 0.00-2.50 [facility] Serum or plasma high density lipoprotein (HDL) cholesterol measurementOrdered By: Jes Vasquez on 06-19-2022 Cholesterol in HDL [Mass/Vol] 68 mg/dL 35-85 [facility] Comment on above: HDL CHOL ATP-III CLA SSIFICATION Cardiovascular RiskHDL > or equal to 60 mg/dL LOWHDL < 40 mg/dL HIGH Serum or plasma total choles terol/high density lipoprotein (HDL) cholesterol mass ratOrdered By: Jes Vasquez on 06-19-2022 Cholesterol.total/Adela sterol in HDL [Mass ratio] 2.8 {ratio} <5.0 [facility] Sodium [Moles/volume] in Ser um or PlasmaOrdered By: Jes Vasquez on 06-19-2022 Sodium [Moles/Vol] 139 mmol/L 136-145 [facility] THYROID SCREENon 06-19-2022 Free T4 [Mass/Vol] 0.63 ng/dL Normal 0.61-1.12 [facility] Comment on above: Order Comment: Reaso n for Exam Other chest pain;Primary hypertension Performed By: #### T HYROID SC, BNP, HSCRP, CK, CMP, LIPID, CKMB, CBC #### [facility] [address] TSH Qn 2.33 m[IU]/L Normal 0.45-5.33 [facility] Comment on above: Order Comment: Reaso n for Exam Other chest pain;Primary hypertension Result Comment: PERF ORMED BY: [place] [address] PATHOLOGIST HEPATOLOGIST PALOMO WESLEY M.D. Performed By: #### T HYROID SC, BNP, HSCRP, CK, CMP, LIPID, CKMB, CBC #### [facility] [address] Thyrotropin [Units/volume] i n Serum or PlasmaOrdered By: Jes Vasquez on 06-19-2022 TSH Qn 2.33 m[IU]/L 0.45-5.33 [facility] Thyroxine (T4) free [Mass/vo lume] in Serum or PlasmaOrdered By: Jes Vasquez on 06-19-2022 Free T4 [Mass/Vol] 0.63 ng/dL 0.61-1.12 [facility] Triglyceride [Mass/volume] i n Serum or PlasmaOrdered By: Jes Vasquez on 06-19-2022 Triglyceride [Mass/Vol] 241 mg/dL 0-149 [facility] Comment on above: TRIG ATP III CLASSIF ICATIONTRIG less than 150 mg/dL NormalTRIG 150-199 mg/dL Borderline highTRIG 200-500 mg/dL High TRIG greater than 500 mg/dL Very highStandard traceable to the Center for Disease Conrtrol and Prevention (CDC) test method. Urea nitrogen [Mass/volume] in Serum or PlasmaOrdered By: Jes Vasquez on 06-19-2022 Urea nitrogen [Mass/Vol] 9 mg/dL 7-25 [facility] WBC Auto (Bld) [#/Vol]Ordere d By: Jes Vasquez on 06-19-2022 WBC (Bld) [#/Vol] 8.2 10*3/uL 3.8-11.6 [facility] CARDIAC BJORN ADMITon 023 CK [Catalytic activity/Vol] 54 U/L Normal 26-192 [facility] Comment on above: Performed By: #### C MADM, CMP #### [facility] [address] [address] [address] Howard Guthrie CK.MB [Mass/Vol] 1.70 ng/mL Normal <=3.60 [facility] Comment on above: Performed By: #### C MADM, CMP #### [facility] [address] [address] [address] Howard Guthrie HSTROP <4.0 Normal 4.0-51.3 [facility] Comment on above: Result Comment: CUT- OFF POINTS HAVE BEEN ESTABLISHED BASED ON THE FOURTH UNIVERSAL DEFINITIONS OF MYOCARDIAL INFARCTION. THE UPPER REFERENCE LIMIT (URL) OF TROPONIN, DEFINED THE 99TH PERCENTILE OF cTnI DISTRIBUTION IN A REFERENCE POPULATION, HAS BEEN CONFIRMED THE DECISION THRESHOLD FOR ND DIAGNOSIS. Performed By: #### C MADM, CMP #### [facility] [address] [address] [address] Howard Guthrie NYA 23 ng/mL Normal 9-82 [facility] Comment on above: Performed By: #### C MADM, CMP #### [facility] [address] [address] [address] Howard Guthrie CBC AUTO DIFFon 06-17-2022 BASO # 0.1 103/ul Normal 0.0-0.1 [facility] Comment on above: Performed By: #### C BC #### [facility] [address] [address] [address] Howard Guthrie Basophils/100 WBC (Bld) 1.0 % Normal 0.2-2.0 [facility] Comment on above: Performed By: #### C BC #### [facility] [address] [place] [address] Dr. Howard Guthrie EO # 0.2 103/ul Normal 0.0-0.7 [facility] Comment on above: Performed By: #### C BC #### [facility] [address] [address] [address] Howard Guthrie Eosinophils/100 WBC (Bld) 2.9 % Normal 0.9-7.0 [facility] Comment on above: Performed By: #### C BC #### [facility] [address] [place] [address] Dr. Howard Guthrie Erythrocyte distribution width (RBC) [Ratio] 12.7 % Normal 11.0-15.0 [facility] Comment on above: Performed By: #### C BC #### [facility] [address] [place] [address] Dr. Howard Guthrie Hematocrit (Bld) [Volume fraction] 42.5 % Normal 36.0-48.0 [facility] Comment on above: Performed By: #### C BC #### [facility] [address] [place] [address] Dr. Howard Guthrie Hemoglobin (Bld) [Mass/Vol] 14.7 g/dL Normal 12.0-16.0 [facility] Comment on above: Performed By: #### C BC #### [facility] [address] [place] [address] Dr. Howard Guthrie IG # 0.02 10e3/ul Normal 0.00-0.03 [facility] Comment on above: Performed By: #### C BC #### [facility] [address] [place] [address] Dr. Howard Guthrie IG % 0.3 % Normal 0.0-0.5 [facility] Comment on above: Performed By: #### C BC #### [facility] [address] [place] [address] Dr. Howard Guthrie LYMPH # 2.1 103/ul Normal 1.2-3.8 [facility] Comment on above: Performed By: #### C BC #### [facility] [address] [place] [address] Dr. Howard Guthrie Lymphocytes/100 WBC (Bld) 28.4 % Normal 20.5-60.0 [facility] Comment on above: Performed By: #### C BC #### [facility] [address] [place] [address] Dr. Howard Guthrie MANUAL DIFF REQ NO Normal [facility] Comment on above: Performed By: #### C BC #### [facility] [address] [place] [address] Dr. Howard Guthrie MCH (RBC) [Entitic mass] 33.1 pg Normal 26.7-34.0 [facility] Comment on above: Performed By: #### C BC #### [facility] [address] [place] [address] Dr. Howard Guthrie MCHC (RBC) [Mass/Vol] 34.6 g/dL Normal 29.9-35.2 [facility] Comment on above: Performed By: #### C BC #### [facility] [address] [place] [address] Dr. Howard Guthrie MCV (RBC) [Entitic vol] 95.7 fL Normal 81.0-99.0 [facility] Comment on above: Performed By: #### C BC #### [facility] [address] [place] [address] Dr. Howard Guthrie MONO # 1.0 103/ul Critically high 0.3-0.8 [facility] Comment on above: Performed By: #### C BC #### [facility] [address] [place] [address] Dr. Howard Guthrie Monocytes/100 WBC (Bld) 13.1 % Critically high 1.7-12. 0 [facility] Comment on above: Performed By: #### C BC #### [facility] [address] [place] [address] Dr. Howard Guthrie NEUT # 4.0 103/ul Normal 1.4-6.5 [facility] Comment on above: Performed By: #### C BC #### [facility] [address] [place] [address] Dr. Howard Guthrie Neutrophils/100 WBC (Bld) 54.3 % Normal 43.0-75.0 [facility] Comment on above: Performed By: #### C BC #### [facility] [address] [place] [address] Dr. Howard Guthrie Platelet mean volume (Bld) [Entitic vol] 10.0 fL Normal 9.5-13.5 [facility] Comment on above: Performed By: #### C BC #### [facility] [address] [place] [address] Dr. Howard Guthrie PLT 343 103/ul Normal 150-450 [facility] Comment on above: Performed By: #### C BC #### [facility] [address] [place] [address] Dr. Howard Guthrie RBC 4.44 106/ul Normal 4.20-5.40 [facility] Comment on above: Performed By: #### C BC #### [facility] [address] [place] [address] Dr. Howard Guthrie WBC 7.4 103/ul Normal 4.0-11.0 [facility] Comment on above: Performed By: #### C BC #### [facility] [address] [place] [address] Dr. Howard Guthrie D-DIMERon 06-17-2022 D-DIMER 0.43 mg/L FEU Normal <=0.59 [facility] Comment on above: Performed By: #### D DIM #### [facility] [address] [place] [address] Dr. Howard Guthrie D-DIMER COMMENTS SEE BELOW Normal [facility] Comment on above: Result Comment: Incr eases [...] hospitalization. Performed By: #### D DIM #### [facility] [address] [place] [address] Dr. Howard Guthrie ER URINE PROFILEon 3 Bilirubin Ql (U) Negative Normal NEGATIVE [facility] Comment on above: Performed By: #### U MICRO, ERUR #### [facility] [address] [place] [address] Dr. Howard Guthrie Clarity (U) CLEAR Normal CLEAR [facility] Comment on above: Performed By: #### U MICRO, ERUR #### [facility] [address] [place] [address] Dr. Howard Guthrie Color (U) LT. YELLOW Normal YELLOW [facility] Comment on above: Performed By: #### U MICRO, ERUR #### [facility] [address] [place] [address] Dr. Howard Guthrie ERUAHD A micrscopic examination will be performed if indicated. Normal [facility] Comment on above: Performed By: #### U MICRO, ERUR #### [facility] [address] [place] [address] Dr. Howard Guthrie Glucose Ql (U) Negative Normal NEGATIVE [facility] Comment on above: Performed By: #### U MICRO, ERUR #### [facility] [address] [address] [address] Howard Guthrie Hemoglobin Ql (U) SMALL Abnormal NEGATIVE [facility] Comment on above: Performed By: #### U MICRO, ERUR #### [facility] [address] [place] [address] Dr. Howard Guthrie Ketones Ql (U) Negative Normal NEGATIVE [facility] Comment on above: Performed By: #### U MICRO, ERUR #### [facility] [address] [address] [address] Howard Guthrie LEUKOCYTES Negative Normal NEGATIVE [facility] Comment on above: Performed By: #### U MICRO, ERUR #### [facility] [address] [place] [address] Dr. Howard Guthrie Nitrite Ql (U) Negative Normal NEGATIVE [facility] Comment on above: Performed By: #### U MICRO, ERUR #### [facility] [address] [place] [address] Dr. Howard Guthrie pH (U) 7.0 [pH] Normal 5-9 [facility] Comment on above: Performed By: #### U MICRO, ERUR #### [facility] [address] [place] [address] Dr. Howard Guthrie SPEC GRAVITY 1.015 Normal 1.005-<=1.0 25 [facility] Comment on above: Performed By: #### U MICRO, ERUR #### [facility] [address] [address] [address] Howard Guthrie UA PROTEIN Negative Normal NEGATIVE/ TRACE [facility] Comment on above: Performed By: #### U MICRO, ERUR #### [facility] [address] [address] [address] oHward Guthrie UR MICRO IND INDICATED Normal [facility] Comment on above: Performed By: #### U MICRO, ERUR #### [facility] [address] [place] [address] Dr. Howard Guthrie Urobilinogen Qn (U) 0.2 {Abdiaziz'U}/dL Normal 0.2 - 1. 0 [facility] Comment on above: Performed By: #### U MICRO, ERUR #### [facility] [address] [address] [address] Howard Guthrie PROF 14(COMP METB)on 023 Albumin [Mass/Vol] 3.8 g/dL Normal 3.4-5.0 [facility] Comment on above: Performed By: #### C MADM, CMP #### [facility] [address] [address] [address] Howard Guthrie Albumin/Globulin [Mass ratio] 1.1 {ratio} Normal [facility] Comment on above: Performed By: #### C MADM, CMP #### [facility] [address] [address] [address] Howard Guthrie ALP [Catalytic activity/Vol] 96 U/L Normal 46-116 [facility] Comment on above: Performed By: #### C MADM, CMP #### [facility] [address] [address] [address] Howard Guthrie ALT [Catalytic activity/Vol] 19 U/L Normal 14-59 [facility] Comment on above: Performed By: #### C MADM, CMP #### [facility] [address] [address] [address] Howard Guthrie Anion gap [Moles/Vol] 11.2 mmol/L Normal [facility] Comment on above: Performed By: #### C MADM, CMP #### [facility] [address] [address] [address] Howard Guthrie AST [Catalytic activity/Vol] 19 U/L Normal 15-37 [facility] Comment on above: Performed By: #### C MADM, CMP #### [facility] [address] [address] [address] Howard Guthrie Bilirubin [Mass/Vol] 0.5 mg/dL Normal 0.2-1.0 [facility] Comment on above: Performed By: #### C MADM, CMP #### [facility] [address] [address] [address] Howard Guthrie Calcium [Mass/Vol] 8.8 mg/dL Normal 8.5-10.1 [facility] Comment on above: Performed By: #### C MICHAELM, CMP #### [facility] [address] [place] [address] Dr. Howard Guthrie Chloride [Moles/Vol] 104 mmol/L Normal 98-107 [facility] Comment on above: Performed By: #### C MICHAELM, CMP #### [facility] [address] [place] [address] Dr. Howard Guthrie CO2 [Moles/Vol] 24.1 mmol/L Normal 21.0-32.0 [facility] Comment on above: Performed By: #### C JORDAN, CMP #### [facility] [address] [place] [address] Dr. Howard Guthrie Creatinine [Mass/Vol] 0.73 mg/dL Normal 0.55-1.02 [facility] Comment on above: Performed By: #### C JORDAN, CMP #### [facility] [address] [place] [address] Dr. Howard Guthrie EGFR-AF BARBADIAN >60 Normal >=60 [facility] Comment on above: Performed By: #### C JORDAN, CMP #### [facility] [address] [place] [address] Dr. Howard Guthrie EGFR-NON AF BARBADIAN >60 Normal >=60 [facility] Comment on above: Performed By: #### C JORDAN, CMP #### [facility] [address] [place] [address] Dr. Howard Guthrie Globulin (S) [Mass/Vol] 3.6 g/dL Normal [facility] Comment on above: Performed By: #### C MICHAELM, CMP #### [facility] [address] [place] [address] Dr. Howard Guthrie Glucose [Mass/Vol] 112 mg/dL Critically high 74-106 [facility] Comment on above: Performed By: #### C MICHAELM, CMP #### [facility] [address] [place] [address] Dr. Howard Guthrie Potassium [Moles/Vol] 3.3 mmol/L Critically low 3.5-5.1 [facility] Comment on above: Performed By: #### C JORDAN, CMP #### [facility] [address] [place] [address] Dr. Howard Guthrie Protein [Mass/Vol] 7.4 g/dL Normal 6.4-8.2 [facility] Comment on above: Performed By: #### C JORDAN, CMP #### [facility] [address] [place] [address] Dr. Howard Guthrie Sodium [Moles/Vol] 136 mmol/L Normal 136-145 [facility] Comment on above: Performed By: #### C JORDAN, CMP #### [facility] [address] [place] [address] Dr. Howard Guthrie Urea nitrogen [Mass/Vol] 6.0 mg/dL Critically low 7.0-18.0 [facility] Comment on above: Performed By: #### Terrie ORTEGA, CMP #### [facility] [address] [place] [address] Dr. Howard Guthrie Urea nitrogen/Creatinine [Mass ratio] 8.2 mg/mg Normal [facility] Comment on above: Performed By: #### C JORDAN, CMP #### [facility] [address] [place] [address] Dr. Howard Guthrie TROPONIN, HIGH SENSITIVITYon 06-17-2022 HSTROP 4.6 pg/mL Normal 4.0-51.3 [facility] Comment on above: Result Comment: CUT- OFF POINTS HAVE BEEN ESTABLISHED BASED ON THE FOURTH UNIVERSAL DEFINITIONS OF MYOCARDIAL INFARCTION. THE UPPER REFERENCE LIMIT (URL) OF TROPONIN, DEFINED THE 99TH PERCENTILE OF cTnI DISTRIBUTION IN A REFERENCE POPULATION, HAS BEEN CONFIRMED THE DECISION THRESHOLD FOR ND DIAGNOSIS. Performed By: #### H STROPN #### [facility] [address] [place] [address] Dr. Howard Guthrie URINE MICROSCOPIC ONLYon BACTERIA TRACE Abnormal NONE SEEN [facility] Comment on above: Performed By: #### U MICRO, ERUR #### [facility] [address] [place] [address] Dr. Howard Guthrie Bacteria identified Cx Nom (U) NOT INDICATED Normal [facility] Comment on above: Performed By: #### U MICRO, ERUR #### [facility] [address] [place] [address] Dr. Howard Guthrie CAST NONE SEEN Normal NONE SEEN [facility] Comment on above: Performed By: #### U MICRO, ERUR #### [facility] [address] [place] [address] Dr. Howard Guthrie Crystals LM Nom (Urine sed) NONE SEEN Normal NONE SEEN [facility] Comment on above: Performed By: #### U MICRO, ERUR #### [facility] [address] [place] [address] Dr. Howard Guthrie Epithelial cells LM Ql (Urine sed) FEW Abnormal NONE SEEN /RARE [facility] Comment on above: Performed By: #### U MICRO, ERUR #### [facility] [address] [place] [address] Dr. Howard Guthrie MUCOUS TRACE Abnormal NONE SEEN [facility] Comment on above: Performed By: #### U MICRO, ERUR #### [facility] [address] [place] [address] Dr. Howard Guthrie RBC 2-5 Abnormal 0-2 [facility] Comment on above: Performed By: #### U MICRO, ERUR #### [facility] [address] [place] [address] Dr. Howard Guthrie WBC NONE SEEN Normal NONE SEEN [facility] Comment on above: Performed By: #### U MICRO, ERUR #### [facility] [address] [place] [address] Dr. Howard Guthrie XR CHEST 1 Von [...] NICK MARIE Date: 2022-06-17 12:26 Normal [facility] Tobacco Screening.on 022 Adult depression screening assessment No -[facility] 250 DO Work Phone: Tobacco use status CPHS a) Yes M -[facility] 250 DO Work Phone: Tobacco Screening. Yes [facility] 250 DO Work Phone: Vital Signs Date Time Vital Sign Value Performing Clinician Faci lity 03-22-2023 13:16-0500 [facility] 03-22-2023 13:16-0500 Diastolic blood pressure 85 mm[Hg] [facility] 03-22-2023 13:16-0500 Heart rate 90 /min [facility] 03-22-2023 13:16-0500 SaO2% (BldA) [Mass fraction] 99 % [facility] 03-22-2023 13:16-0500 Systolic blood pressure 126 mm[Hg] [facility] 12-15-2022 13:20-0400 Body height 165.1 cm Loretta Javier Other [facility] 12-15-2022 13:20-0400 Body mass index (BMI) [Ratio] 23.13 kg/m2 Loretta Javier Other [facility] 12-15-2022 13:20-0400 Body temperature 98.1 [degF] Loretta Yaya Other [facility] Other 12-15-2022 13:20-0400 Body weight 63.05 kg Loretta Javier Other [facility] Other 12-15-2022 13:20-0400 Diastolic blood pressure 76 mm[Hg] Loretta Javier Other [facility] Other 12-15-2022 13:20-0400 Respiratory rate 18 /min Loretta Javier Other [facility] Other 12-15-2022 13:20-0400 SaO2% (BldA) [Mass fraction] 98 % Loretta Javier Other [facility] Other 12-15-2022 13:20-0400 Systolic blood pressure 128 mm[Hg] Loretta Yaya Other [facility] Other 10-14-2022 11:10-0400 Body height 165.1 cm Tanya Belen Other [facility] Other 10-14-2022 11:10-0400 Body mass index (BMI) [Ratio] 23.39 kg/m2 Tanya Belen Other [facility] 10-14-2022 11:10-0400 Body temperature 97.8 [degF] Tanya Belen Other [facility] Other 10-14-2022 11:10-0400 Body weight 63.78 kg Tanya Belen Other [facility] Other 10-14-2022 11:10-0400 Diastolic blood pressure 85 mm[Hg] Tanya Glover Other [facility] Other 10-14-2022 11:10-0400 Respiratory rate 18 /min Tanya Glover Other [facility] Other 10-14-2022 11:10-0400 SaO2% (BldA) [Mass fraction] 99 % Tanya Glover Other [facility] Other 10-14-2022 11:10-0400 Systolic blood pressure 143 mm[Hg] Tanya Glover Other [facility] Other 06-24-2022 09:32-0400 Body height 165.1 cm No PCP None [facility] 250 DO Work Phone: 06-24-2022 09:32-0400 Body mass index (BMI) [Ratio] 24.63 kg/m2 No PCP None [facility] 250 DO Work Phone: 06-24-2022 09:32-0400 Body surface area Derived from formula 1.74 m2 No PCP None [facility] 250 DO Work Phone: 06-24-2022 09:32-0400 Body weight 67.13 kg No PCP [facility] DO Work Phone: 06-24-2022 09:32-0400 Diastolic blood pressure 82 mm[Hg] No PCP [facility] 250 DO Work Phone: 06-24-2022 09:32-0400 Heart rate 88 /min No PCP None [facility] 250 DO Work Phone: 06-24-2022 09:32-0400 Systolic blood pressure 124 mm[Hg] No PCP None [facility] 250 DO Work Phone: 06-02-2021 15:09-0500 Diastolic blood pressure 98 mm[Hg] No PCP None [facility] 250 DO Work Phone: 06-02-2021 15:09-0500 Systolic blood pressure 142 mm[Hg] No PCP None [facility] 250 DO Work Phone: 06-02-2021 15:03-0500 Body height 165.1 cm No PCP None [facility] 250 DO Work Phone: 06-02-2021 15:03-0500 Body mass index (BMI) [Ratio] 28.29 kg/m2 No PCP None [facility] 250 DO Work Phone: 06-02-2021 15:03-0500 Body surface area Derived from formula 1.85 m2 No PCP None [facility] 250 DO Work Phone: 06-02-2021 15:03-0500 Body weight 77.11 kg No PCP None [facility] 250 DO Work Phone: 06-02-2021 15:03-0500 Diastolic blood pressure 90 mm[Hg] No PCP None [facility] 250 DO Work Phone: 06-02-2021 15:03-0500 Heart rate 92 /min No PCP None [facility] 250 DO Work Phone: 06-02-2021 15:03-0500 Systolic blood pressure 142 mm[Hg] No PCP None [facility] 250 DO Work Phone: Encounters Encounter Date Encounter Type Care Provider Facility Start: 04-16-2023 End: 04-16-2023 Patient encounter procedure Ramone Garcia [facility] Start: 04-01-2023 End: 04-01-2023 ambulatory Jes Vasquez Facility:[facility] Start: 03-22-2023 End: 03-23-2023 ambulatory Ramone Garcia Facility:[facility] Start: 03-22-2023 End: 03-22-2023 Patient encounter procedure Ramone Garcia [facility] Start: 12-15-2022 End: 12-15-2022 ambulatory Loretta Javier Other [facility] Start: 12-15-2022 Office outpatient visit 25 minutes Loretta Javier [facility] Start: 10-14-2022 End: 10-14-2022 ambulatory Tanya Glover Other [facility] Other Start: 10-14-2022 Office outpatient visit 15 minutes Tanyahai Glover [facility] Start: 08-14-2022 ambulatory Ms. Jes Vasquez Facility: Start: 08-14-2022 [facility]UV, Provider: Nadia Franks, Status: Pen, Time: 1:00 PM No PCP None [facility] 250 DO Work Phone: Start: 08-06-2022 Rx Renewal No PCP None [facility] 250 DO Work Phone: Start: 06-24-2022 Office outpatient visit 15 minutes No PCP None [facility] 250 DO Work Phone: Start: 06-24-2022 ambulatory Ms. Nadia Tinajero Migel mendoza Facility: Start: 06-19-2022 End: 06-19-2022 ambulatory Jes Natasha Vasquez Facility:[facility] Start: 06-19-2022 End: 06-19-2022 ambulatory PHYSICIAN NO [facility] Work Phone: Start: 06-19-2022 End: 06-19-2022 Departed Referred PHYSICIAN NO [facility] Start: 06-17-2022 End: 06-17-2022 ambulatory RIVER MARTE . Facility:[facility] Start: 11-10-2021 ambulatory Ms. Nadia mendoza Facility: Start: 10-27-2021 Rx Renewal No PCP None [facility] 250 DO Work Phone: Start: 06-02-2021 Office outpatient visit 25 minutes No PCP None [facility] 250 DO Work Phone: Procedures Date [...] Nadia Franks, Status: Pen, Time: 1:00 PM [facility] 250 DO Work Phone: Start: 11-10-2021 FUV, Provider: Nadia Franks, Status: Pen, Time: 3:00 PM [facility], Provider: Nadia Franks, Status: Pen, Time: 3:00 PM [facility] 250 DO Work Phone: Start: 06-30-2021 [facility]UV, Provider: Nadia Franks, Status: Pen, Time: 8:00 AM [facility], Provider: Nadia Franks, Status: Pen, Time: 8:00 AM [facility] 250 DO Work Phone: Immunizations Immunization Date Immunization Notes Care Provider [facility] 03-25-2021 influenza, injectabl e, quadrivalent, preservative free No PCP None [facility] 01-05-2020 influenza, injectabl e, quadrivalent, preservative free No PCP None -[facility] 250 DO Work Phone: 01-06-2019 influenza, injectabl e, quadrivalent, preservative free [facility] Payers Date Payer Category Payer Self-pay [id number] 1970 Unknown [id number] 1970 Unknown [id number] 1971 Unknown [id number] 1971 Unknown [id number] 1970 Unknown [id number] 1958 Medicaid [id number] Private Health Insurance [id number] Unknown [id number] Unknown [facility] [employer] [facility] Unknown [id number] Unknown [id number] Unknown [id number] Social History Date Type Detail [facility] Start: 1970 Sex Assigned At Female F [facility] Illicit drug use Illicit drug use [facility] 250 DO Work Phone: Comment on above: 1 pack per daily.; Start: 05-26-2021 Tobacco smoking stat us NHIS Ex-smoker (finding) [facility] Sex Assigned At [facility] Start: 03-22-2023 Tobacco smoking status Light t obacco smoker (finding) [facility] Tobacco smoking status Never [facility] Medical Equipment Procedure Code Equipment Code Equipment Origin al Text Equipment Identifier Dates Thoracotomy Staple line-reinforcement strip [id number] FDA Start: 03-26-2021 Thoracotomy Surgical adhesive/sealant, human-derived ()[id number] FDA Start: 03-26-2021 Goals Date Patient Goal Desired Activity /State Functional Status Date Assessment Result Facility 03-22-2023 Functional Status No [facility] Evaluation note 12-15-2022 Note Date & [...] understanding and is agreeable to treatment plan [facility] Other Evaluation note 10-14-2022 Note Date & [...] - Z20.822) Oct, Bronchitis (ICD-10 - J40) [facility] Other Evaluation + Plan note Radiology Note Date & Type Note Facility Evaluation + Plan note Future Appointments Appointment Date:05/13/2023 03:45:00 PM Scheduled Provider:Ramone Garcia MD Location:[facility] Appointment Type:Cardiology Follow Up ([facility]) Future Scheduled TestsNM Myocardial Spect Rest/Stress 1 Day 03/22/23Echo Transthoracic Complete 03/22/23 [facility] Evaluation + Plan note Note Date & Type Note Facility Evaluation + Plan note Future Appointments Appointment Date:05/13/2023 03:45:00 PM Scheduled Provider:Ramone Garcia MD Location:[facility] Appointment Type:Cardiology Follow Up ([facility]) [facility] Evaluation note Note Date & Type Note Facility Evaluation note No assessment [facility] Work Phone: History general Narrative - Reported Note Date & Type Note Facility History general Narrative - Reported Type Surgical History hysterectomy Surgical History lumbar [facility] Other History of Present illness Narrative Note [...] medication regimen. She denies medication side effects. -[facility] Lopez DO Work Phone: Hospital course Narrative Note Date & Type Note Facility Hospital course Narrative No data available for this section [facility] Hospital Discharge instructions Note Date & Type Note Facility Hospital Discharge instructions No data available for this section [facility] Progress note Note Date & Type Note Facility Progress note No data available for this section [facility] Assessments No Assessments Information Available Family [...] dyspnea. * Patient was recently hospitalized at [facility]. The patient was seen in Cardiology consult with subsequent cardiovascular management by [facility]. Hospitalization records have been reviewed. * Reason for Cardiology Consultation: chest pain (presented with spontaneous PTX) * Consulting Wire Turning Machine Operator: Dr. Lopez * Cardiovascular testing: cardiac [...] evaluation. * Last week she presented to [facility] due to chest pain and dizziness. [...] and fluttering . 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 Attending Provide r Active Goals (unrecognized section and content) Goals may be documented in a n alternate sectionNo InformationNo Information No data available for this section No data available for this section INFORMATION SOURCE (unrecogn ized section and content) DATE CREATED AUTHOR 06/24/2022 [employer] DATE CREATED AUTHOR AUTHOR'S ORGANIZ ATION 07/29/2022 [facility] DATE CREATED AUTHOR AUTHOR'S ORGANIZ ATION 08/16/2022 [facility] DATE CREATED AUTHOR AUTHOR'S ORGANIZ ATION 04/12/2023 [facility] DATE CREATED AUTHOR AUTHOR'S ORGANIZ ATION 04/15/2023 [facility] REASON FOR VISIT (unrecogniz ed section [...] BE BASED ON THE PRIMARY CLINICAL RECORDS. [employer] [facility]. provides no warranty or guarantee of the accuracy or completeness of information in this document.
== END 2023-05-13 11:33 | disposition home or self-care (01) ==
LOC: RAD 11:33
PROVIDERS: Visit Provider Physician Assistant
DX: M20.22 Hallux rigidus, left foot (principal)
CPT/HCPCS: 73630

== ENCOUNTER 2023-05-27 13:10 | Outpatient (OUT) | payer OTHER, SELFPAY ==
--- NOTE | 2023-05-27 | XR_ITS ---
The [address] [address] Patient Name: MEGHANA KEY MRN: [id number] date: 1970 Sex: F Assigned Patient Location: Current Patient Location: Accession/Order Number: [id number] Exam Date: 05/27/2023 13:15 Report Date: 05/29/2023 07:24 At the request of: KY GRAHAM Procedure: XR ankle LT min 3V PROCEDURE: XR foot LT min 3V, XR ankle LT min 3V HISTORY: LEFT FOOT PAIN , left ankle pain, twisting injury while falling COMPARISON: XR foot left 05/13/2023 FINDINGS: BONES: Normal appearance of the ankle joint. Prior fusion of first metatarsophalangeal joint via dorsal plate and screws; no hardware fracture loosening. No bone fracture dislocation. SOFT TISSUES:No visible soft tissue swelling. EFFUSION:None visible. OTHER: Negative. XR/XR ankle LT min 3V IMPRESSION: 1. No acute bone abnormality. 2. Stable surgical changes Electronically authenticated by: MASOOD COOK Date: 05/29/2023 07:24
--- NOTE | 2023-05-27 | XR_ITS ---
The [address] [address] Patient Name: MEGHANA KEY MRN: [id number] date: 1970 Sex: F Assigned Patient Location: Current Patient Location: Accession/Order Number: [id number] Exam Date: 05/27/2023 13:15 Report Date: 05/29/2023 07:24 At the request of: KY GRAHAM Procedure: XR foot LT min 3V PROCEDURE: XR foot LT min 3V, XR ankle LT min 3V HISTORY: LEFT FOOT PAIN , left ankle pain, twisting injury while falling COMPARISON: XR foot left 05/13/2023 FINDINGS: BONES: Normal appearance of the ankle joint. Prior fusion of first metatarsophalangeal joint via dorsal plate and screws; no hardware fracture loosening. No bone fracture dislocation. SOFT TISSUES:No visible soft tissue swelling. EFFUSION:None visible. OTHER: Negative. XR/XR foot LT min 3V IMPRESSION: 1. No acute bone abnormality. 2. Stable surgical changes Electronically authenticated by: MASOOD COOK Date: 05/29/2023 07:24
== END 2023-05-27 13:11 | disposition home or self-care (01) ==
LOC: EC 13:10
PROVIDERS: Visit Provider Physician Assistant
DX: M20.22 Hallux rigidus, left foot (principal); M25.572 Pain in left ankle and joints of left foot; Z98.890 Other specified postprocedural states
CPT/HCPCS: 73610; 73630

== ENCOUNTER 2023-06-17 13:04 | Outpatient (OUT) | payer OTHER, SELFPAY ==
--- NOTE | 2023-06-17 | XR_ITS ---
The [address] [address] Patient Name: MEGHANA KEY MRN: [id number] date: 1970 Sex: F Assigned Patient Location: Current Patient Location: Accession/Order Number: [id number] Exam Date: 06/17/2023 13:09 Report Date: 06/19/2023 09:01 At the request of: KY GRAHAM Procedure: XR foot LT min 3V PROCEDURE: XR foot LT min 3V HISTORY: LEFT FOOT PAIN COMPARISON: XR foot left 05/27/2023 FINDINGS: BONES:Mechanical fusion of first metatarsophalangeal joint via dorsal plate and screws; no hardware fracture or loosening. No bone fracture or dislocation. SOFT TISSUES:No visible soft tissue swelling. EFFUSION:None visible. OTHER: Negative. XR/XR foot LT min 3V IMPRESSION: 1. Stable surgical changes without hardware failure or change in alignment. Electronically authenticated by: MASOOD COOK Date: 06/19/2023 09:01
== END 2023-06-17 13:05 | disposition home or self-care (01) ==
LOC: EC 13:04
PROVIDERS: Visit Provider Physician Assistant
DX: M20.22 Hallux rigidus, left foot (principal); Z98.890 Other specified postprocedural states
CPT/HCPCS: 73630

== ENCOUNTER 2023-07-20 09:01 | Outpatient (OUT) | payer OTHER, SELFPAY ==
--- NOTE | 2023-07-20 | XR_ITS ---
The [address] [address] Patient Name: MEGHANA KEY MRN: [id number] date: 1970 Sex: F Assigned Patient Location: Current Patient Location: Accession/Order Number: [id number] Exam Date: 07/20/2023 09:03 Report Date: 07/20/2023 09:25 At the request of: TAMI HODGE Procedure: XR foot LT min 3V PROCEDURE: XR foot LT min 3V COMPARISON: 06/17/2023 HISTORY: LEFT FOOT PAIN FINDINGS: BONES:Stable fusion first metatarsal-phalangeal joint with a dorsal plate and screws. No acute fracture, dislocation or mechanical failure. No significant degenerative changes SOFT TISSUES:Negative. No visible soft tissue swelling. EFFUSION:None visible. OTHER: Negative. XR/XR foot LT min 3V IMPRESSION: Stable fusion first metatarsal-phalangeal joint Electronically authenticated by: TYE SUBRAMANIAN Date: 07/20/2023 09:25
--- OUTSIDE RECORDS SUMMARY | 2023-07-20 09:22 | XMS_ITS | CCD ---
Author Organization [facility] Care Team Providers Care Band Salvager Name Role Phone None, No PCP Unavailable Unavailable Unavailable Unavailable NO FAMILY, PHYSICIAN Primary Care Provider LEIGHANN Yuen Attending Pr emily RIVER GIMENEZ Admitting Unavailable RIVER GIMENEZ Attending Unavailable REQUEST, NONE LISTED Primary Care UnavailRIVER Cason Consulting Unavailable NICK MARIE Consulting Unavailable [place], Ms. Nadia Tanvi Lainez Attending Curtis Peter, Shyanne Nadiaindra Lainez Referring Curtis Vasquez, MsShyanne Kaur Primary Care Unavailable [place], Shyanne Nadia Tanvi Lainez Attending Curtis Vasquez, MsShyanne Jes Natasha Primary Care Unavailable [place], Shyanne Nadia Liconamelony Lainez Attending Tanya Colby Unavailable Loretta Javier Unavailable JES VASQUEZ Primary Care Physician Ramone Garcia Attending Unavaila Ramone Hart Admitting Unavaila JES Ramesh Referring Unavailab le PRETTY FAMILY, PHYSICIAN Primary Care Unavailable Jes Vasquez Admitting U navJes Rolon Attending U Jes Belcher Admitting U Jes Belcher Primary Care U Jes Belcher Attending U navailable PRETTY FAMILY, PHYSICIAN Primary Care Unavailable Jes Vasquez Admitting Jes Buck Attending U bharti Unavailable Unavailable Unavailable Allergies Allergy Classification Reported Allergen(s) Allergy Type Date of Onset Reaction(s) Facility (14 sources) Norm; Translations: [codeine] Drug Allergy 09-16-2012 hives, Eruption of skin present [facility] Medications Current Medications Medication Drug Class(es) Dates [...] Daily, # 30 tab(s), Refills(s) 3, Pharmacy: [facility] 1155, 164, cm, 03/22/23 13:24:00 [...] 09, 2019 12:00am October 19, 2019 12:57pm BuSpar Not-Takin g clonazePAM 0.5 mg oral tablet (2 sources) [...] qAM, # 30 tab(s), Refills(s) 3, Pharmacy: [facility] 1155, 164, cm, 03/22/23 13:24:00 [...] Nocturia, # 60 tab(s), Refills(s) 3, Pharmacy: [facility] 1155, 165, cm, 01/17/20 11:18:00 [...] 01/17/20 Status: Ordered Start: 10-19-2019 End: 03-24-2021 Prazosin Discontinued 1 MG P O As [...] Drug Class(es) Dates Sig (Normalized) Sig (Original) [id number] 200 actuat albuterol 0.09 mg/actuat metered dose [...] Active Start: 06-02-2021 take 1 capsule by mo [facility] once daily dilTIAZem HCl ER Coated Beads 120 MG Oral Capsule Extended Release 24 Hour TAKE 1 CAPSULE ONCE DAILY. Quantity: 30 Refills: 3 Ordered: 02-Jun-2021 Nadia Mancuso Start : 02-Jun-2021 Active esomeprazole 40 mg [...] DIRECTED. Quantity: 30 Refills: 1 Ordered: 02-Jun-2021 Nadia Mancuso Start : 02-Jun-2021 Active Start: 01-09-2019 End: [...] grieving; Translations: [Complicated bereavement] Episodic Anxiety disorders (3 sources) Anxiety; Translations: [Anxiety disorder, unspecified] Onset: 06-09-2023 03-18-2023 Chronic Cardiac dysrhythmias (5 sources) Palpitations; [...] sources) Coronary atherosclerosis; Translations: [Coronary atherosclerosis of [place] coronary artery] 04-03-2021 Chronic Disorders of lipid metabolism (5 sources) Mixed hyperlipidemia; Translations: [Mixed hyperlipidemia] Chronic Essential hypertension (8 sources) Benign hypertension; Translations: [Benign essential hypertension] Onset: 06-19-2022 03-18-2023 Chronic Genitourinary symptoms and ill-defined conditions (4 sources) Incontinence; Translations: [Urge incontinence of urine] 01-17-2020 Chronic Genitourinary symptoms and ill-defined conditions (13 sources) Blood in urine; Translations: [Microscopic hematuria] Onset: 04-01-2023 01-17-2020 Episodic Mood disorders (6 sources) Major depressive disorder; Translations: [Major depressive disorder, single episode, unspecified] Onset: 06-09-2023 01-06-2019 Chronic Nutritional deficiencies (1 source) Vitamin D deficiency, unspecified; Translations: [Vitamin D deficiency, unspecified] Onset: 06-09-2023 Chronic Nutritional deficiencies (1 source) Iron deficiency; Translations: [Iron deficiency] Onset: 06-09-2023 Episodic Other aftercare (1 source) Other skilled nursing (current) drug therapy; Translations: [Other skilled nursing (current) drug therapy] Onset: 06-09-2023 Episodic Other bone disease and musculoskeletal deformities (3 [...] Low back pain 02-08-2020 Episodic Substance-related disorders (12 sources) Polysubstance abuse ; Translations: [Smoker] Onset: 06-09-2023 01-06-2019 Chronic Comment on above: 1 pack [...] Test Name Value Interpretation Reference Range Facility Complete Blood Count Auto Di ffon 06-09-2023 Basophils (Bld) [#/Vol] 0.0 10*3/uL Normal 0.0-0.2 [facility] Comment on above: Order Comment: Reaso n for Exam Other chest pain;Primary hypertension Result Comment: PERF ORMED BY: [place] [address] PATHOLOGIST DRIER PALOMO WESLEY M.D. Performed By: #### C KMB, LIPID, CMP, CK, HSCRP, BNP, THYROID SC, CBC #### [address] Basophils/100 WBC (Bld) 0.3 % Normal . [facility] Comment on above: Order Comment: Reaso n for Exam Other chest pain;Primary hypertension Performed By: #### C KMB, LIPID, CMP, CK, HSCRP, BNP, THYROID SC, CBC #### [place] [address] [place] Eosinophils (Bld) [#/Vol] 0.1 10*3/uL Normal 0.0-0.45 [facility] Comment on above: Order Comment: Reaso n for Exam Other chest pain;Primary hypertension Performed By: #### C KMB, LIPID, CMP, CK, HSCRP, BNP, THYROID SC, CBC #### [place] [address] [place] Eosinophils/100 WBC (Bld) 1.7 % Normal . [facility] Comment on above: Order Comment: Reaso n for Exam Other chest pain;Primary hypertension Performed By: #### C KMB, LIPID, CMP, CK, HSCRP, BNP, THYROID SC, CBC #### [address] Erythrocyte distribution width (RBC) [Ratio] 13.2 % Normal 11.9-15.3 [facility] Comment on above: Order Comment: Reaso n for Exam Other chest pain;Primary hypertension Performed By: #### C KMB, LIPID, CMP, CK, HSCRP, BNP, THYROID SC, CBC #### [address] Hematocrit (Bld) [Volume fraction] 41.9 % Normal 34.0-46.4 [facility] Comment on above: Order Comment: Reaso n for Exam Other chest pain;Primary hypertension Performed By: #### C KMB, LIPID, CMP, CK, HSCRP, BNP, THYROID SC, CBC #### [address] Hemoglobin (Bld) [Mass/Vol] 14.0 g/dL Normal 11.8-15.4 [facility] Comment on above: Order Comment: Reaso n for Exam Other chest pain;Primary hypertension Performed By: #### C KMB, LIPID, CMP, CK, HSCRP, BNP, THYROID SC, CBC #### [address] Lymphocytes (Bld) [#/Vol] 2.2 10*3/uL Normal 1.00-4.8 [facility] Comment on above: Order Comment: Reaso n for Exam Other chest pain;Primary hypertension Performed By: #### C KMB, LIPID, CMP, CK, HSCRP, BNP, THYROID SC, CBC #### [address] Lymphocytes/100 WBC (Bld) 30.2 % Normal . [facility] Comment on above: Order Comment: Reaso n for Exam Other chest pain;Primary hypertension Performed By: #### C KMB, LIPID, CMP, CK, HSCRP, BNP, THYROID SC, CBC #### [address] MCH (RBC) [Entitic mass] 32.8 pg Normal 24.7-34.3 [facility] Comment on above: Order Comment: Reaso n for Exam Other chest pain;Primary hypertension Performed By: #### C KMB, LIPID, CMP, CK, HSCRP, BNP, THYROID SC, CBC #### [facility] [address] MCV (RBC) [Entitic vol] 98.5 fL Normal 80-100 [facility] Comment on above: Order Comment: Reaso n for Exam Other chest pain;Primary hypertension Performed By: #### C KMB, LIPID, CMP, CK, HSCRP, BNP, THYROID SC, CBC #### [facility] [address] Mean Corpuscular HGB Conc 33.3 g/dL Normal 32.0-35.0 [facility] Comment on above: Order Comment: Reaso n for Exam Other chest pain;Primary hypertension Performed By: #### C KMB, LIPID, CMP, CK, HSCRP, BNP, THYROID SC, CBC #### [address] Monocytes (Bld) [#/Vol] 0.8 10*3/uL Normal 0.0-0.8 [facility] Comment on above: Order Comment: Reaso n for Exam Other chest pain;Primary hypertension Performed By: #### C KMB, LIPID, CMP, CK, HSCRP, BNP, THYROID SC, CBC #### [address] Monocytes/100 WBC (Bld) 10.9 % Normal . [facility] Comment on above: Order Comment: Reaso n for Exam Other chest pain;Primary hypertension Performed By: #### C KMB, LIPID, CMP, CK, HSCRP, BNP, THYROID SC, CBC #### [place] [address] [place] Neutrophils (Bld) [#/Vol] 4.1 10*3/uL Normal 1.8-7.7 [facility] Comment on above: Order Comment: Reaso n for Exam Other chest pain;Primary hypertension Performed By: #### C KMB, LIPID, CMP, CK, HSCRP, BNP, THYROID SC, CBC #### [address] Neutrophils/100 WBC (Bld) 56.9 % Normal . [facility] Comment on above: Order Comment: Reaso n for Exam Other chest pain;Primary hypertension Performed By: #### C KMB, LIPID, CMP, CK, HSCRP, BNP, THYROID SC, CBC #### [facility] [address] [place] [address] NRBC% 0.1 /100{WBC} Normal 0-0.5 [facility] Comment on above: Order Comment: Reaso n for Exam Other chest pain;Primary hypertension Performed By: #### C KMB, LIPID, CMP, CK, HSCRP, BNP, THYROID SC, CBC #### [address] Platelet mean volume (Bld) [Entitic vol] 9.0 fL Normal 6.3-10.7 [facility] Comment on above: Order Comment: Reaso n for Exam Other chest pain;Primary hypertension Performed By: #### C KMB, LIPID, CMP, CK, HSCRP, BNP, THYROID SC, CBC #### [address] Platelets (Bld) [#/Vol] 314 10*3/uL Normal 150-450 [facility] Comment on above: Order Comment: Reaso n for Exam Other chest pain;Primary hypertension Performed By: #### C KMB, LIPID, CMP, CK, HSCRP, BNP, THYROID SC, CBC #### [address] RBC (Bld) [#/Vol] 4.26 10*6/uL Normal 3.60-5.00 [facility] Comment on above: Order Comment: Reaso n for Exam Other chest pain;Primary hypertension Performed By: #### C KMB, LIPID, CMP, CK, HSCRP, BNP, THYROID SC, CBC #### [address] WBC (Bld) [#/Vol] 7.2 10*3/uL Normal 3.8-11.6 [facility] Comment on above: Order Comment: Reaso n for Exam Other chest pain;Primary hypertension Performed By: #### C KMB, LIPID, CMP, CK, HSCRP, BNP, THYROID SC, CBC #### [address] [place] [address] [facility] Comprehensive Metabolic Pane bryon 06-09-2023 Albumin [Mass/Vol] 4.2 g/dL Normal 3.5-5.7 [facility] Comment on above: Order Comment: Reaso n for Exam Other chest pain;Primary hypertension Performed By: #### C KMB, LIPID, CMP, CK, HSCRP, BNP, THYROID SC, CBC #### [facility] [address] Albumin/Globulin [Mass ratio] 1.4 {ratio} Normal [facility] Comment on above: Order Comment: Reaso n for Exam Other chest pain;Primary hypertension Performed By: #### C KMB, LIPID, CMP, CK, HSCRP, BNP, THYROID SC, CBC #### [facility] [address] ALP [Catalytic activity/Vol] 87 U/L Normal 34-104 [facility] Comment on above: Order Comment: Reaso n for Exam Other chest pain;Primary hypertension Performed By: #### C KMB, LIPID, CMP, CK, HSCRP, BNP, THYROID SC, CBC #### [facility] [address] ALT [Catalytic activity/Vol] 10 U/L Normal 7-52 [facility] Comment on above: Order Comment: Reaso n for Exam Other chest pain;Primary hypertension Performed By: #### C KMB, LIPID, CMP, CK, HSCRP, BNP, THYROID SC, CBC #### [facility] [address] Anion gap [Moles/Vol] 12.9 mmol/L Normal 6.0-15.0 [facility] Comment on above: Order Comment: Reaso n for Exam Other chest pain;Primary hypertension Performed By: #### C KMB, LIPID, CMP, CK, HSCRP, BNP, THYROID SC, CBC #### [facility] [address] [place] [id number] [facility] AST [Catalytic activity/Vol] 12 U/L Low 13-39 [facility] Comment on above: Order Comment: Reaso n for Exam Other chest pain;Primary hypertension Performed By: #### C KMB, LIPID, CMP, CK, HSCRP, BNP, THYROID SC, CBC #### [facility] [address] Bilirubin [Mass/Vol] 0.2 mg/dL Low 0.3-1.0 [place] Comment on above: Order Comment: Reaso n for Exam Other chest pain;Primary hypertension Performed By: #### C KMB, LIPID, CMP, CK, HSCRP, BNP, THYROID SC, CBC #### [facility] [address] Calcium [Mass/Vol] 9.5 mg/dL Normal 8.6-10.3 [facility] Comment on above: Order Comment: Reaso n for Exam Other chest pain;Primary hypertension Performed By: #### C KMB, LIPID, CMP, CK, HSCRP, BNP, THYROID SC, CBC #### [facility] [address] Chloride [Moles/Vol] 105 mmol/L Normal 98-107 [place] Comment on above: Order Comment: Reaso n for Exam Other chest pain;Primary hypertension Performed By: #### C KMB, LIPID, CMP, CK, HSCRP, BNP, THYROID SC, CBC #### [facility] [address] CO2 [Moles/Vol] 25.0 mmol/L Normal 21.0-31.0 [facility] Comment on above: Order Comment: Reaso n for Exam Other chest pain;Primary hypertension Performed By: #### C KMB, LIPID, CMP, CK, HSCRP, BNP, THYROID SC, CBC #### [facility] [address] Creatinine [Mass/Vol] 0.63 mg/dL Normal 0.60-1.20 [facility] Comment on above: Order Comment: Reaso n for Exam Other chest pain;Primary hypertension Performed By: #### C KMB, LIPID, CMP, CK, HSCRP, BNP, THYROID SC, CBC #### [facility] [address] GFR/1.73 sq M.predicted MDRD (S/P/Bld) [Vol rate/Area] mL/min/{1.73_m2} [facility] Comment on above: Order Comment: Reaso n for Exam Other chest pain;Primary hypertension Performed By: #### C KMB, LIPID, CMP, CK, HSCRP, BNP, THYROID SC, CBC #### [facility] [address] Globulin (S) [Mass/Vol] 2.9 g/dL [facility] Comment on above: Order Comment: Reaso n for Exam Other chest pain;Primary hypertension Performed By: #### C KMB, LIPID, CMP, CK, HSCRP, BNP, THYROID SC, CBC #### [facility] [address] Glucose [Mass/Vol] 90 mg/dL Normal 70-100 [facility] Comment on above: Order Comment: Reaso n for Exam Other chest pain;Primary hypertension Result Comment: [facility] Glucose Reference Range is dependent on time and content of last meal. Glucose of more than 200 mg/dL in a nonstressed, ambulatory subject supports the diagnosis of Diabetes Mellitus. ADA recommended reference range Performed By: #### C KMB, LIPID, CMP, CK, HSCRP, BNP, THYROID SC, CBC #### [address] Potassium [Moles/Vol] 3.9 mmol/L Normal 3.5-5.1 [facility] Comment on above: Order Comment: Reaso n for Exam Other chest pain;Primary hypertension Performed By: #### C KMB, LIPID, CMP, CK, HSCRP, BNP, THYROID SC, CBC #### [facility] [address] Protein [Mass/Vol] 7.1 g/dL Normal 6.4-8.9 [facility] Comment on above: Order Comment: Reaso n for Exam Other chest pain;Primary hypertension Performed By: #### C KMB, LIPID, CMP, CK, HSCRP, BNP, THYROID SC, CBC #### [facility] [address] Sodium [Moles/Vol] 139 mmol/L Normal 136-145 [facility] Comment on above: Order Comment: Reaso n for Exam Other chest pain;Primary hypertension Performed By: #### C KMB, LIPID, CMP, CK, HSCRP, BNP, THYROID SC, CBC #### [facility] [address] Urea nitrogen [Mass/Vol] 14 mg/dL Normal 7-25 [facility] Comment on above: Order Comment: Reaso n for Exam Other chest pain;Primary hypertension Performed By: #### C KMB, LIPID, CMP, CK, HSCRP, BNP, THYROID SC, CBC #### [facility] [address] Ferritinon 06-09-2023 Ferritin [Mass/Vol] 78.9 ng/mL Normal 11.0-306.8 [facility] Comment on above: Order Comment: Reaso n for Exam Other chest pain;Primary hypertension Performed By: #### C KMB, LIPID, CMP, CK, HSCRP, BNP, THYROID SC, CBC #### [facility] [address] [place] [address] HIV 1/O/2 Antigen/Antibodyon 06-09-2023 HIV Screen 4th Generation Non-Reactive Normal Non Reactive [facility] Comment on above: Order Comment: Reaso n for Exam Other chest pain;Primary hypertension Result Comment: HIV Negative HIV-1/HIV-2 antibodies and HIV-1 p24 antigen were NOT detected. There is no laboratory evidence of HIV infection. Performed at: - [address] [id number] [employer] Caretaker: Kurtis Gallegos PhD, Phone: [phone] PERFORMED BY: [place] [address] PATHOLOGIST DRIER PALOMO WESLEY M.D. Performed By: #### C KMB, LIPID, CMP, CK, HSCRP, BNP, THYROID SC, CBC #### [address] Iron and TIBC Profileon % Iron Saturation 22.1 % Normal 20-50 [facility] Comment on above: Order Comment: Reaso n for Exam Other chest pain;Primary hypertension Performed By: #### C KMB, LIPID, CMP, CK, HSCRP, BNP, THYROID SC, CBC #### [facility] [address] Iron [Mass/Vol] 93 ug/dL Normal 50-212 [facility] Comment on above: Order Comment: Reaso n for Exam Other chest pain;Primary hypertension Performed By: #### C KMB, LIPID, CMP, CK, HSCRP, BNP, THYROID SC, CBC #### [facility] [address] Total Iron Binding Capacity 420 ug/dL Normal 255-450 [facility] Comment on above: Order Comment: Reaso n for Exam Other chest pain;Primary hypertension Performed By: #### C KMB, LIPID, CMP, CK, HSCRP, BNP, THYROID SC, CBC #### [facility] [address] Transferrin [Mass/Vol] 300 mg/dL Normal 203-362 [facility] Comment on above: Order Comment: Reaso n for Exam Other chest pain;Primary hypertension Performed By: #### C KMB, LIPID, CMP, CK, HSCRP, BNP, THYROID SC, CBC #### [facility] [address] LDL Cholesterol Measuredon 0 06-09-2023 LDL Cholesterol Measured 122 mg/dL High 0-100 [facility] Comment on above: Order Comment: Reaso n for Exam Other chest pain;Primary hypertension Result Comment: LDL ATP III CLASSIFICATION LDL less than 100 mg/dL Optimal LDL 100-129 mg/dL Near or above optimal LDL 130-159 mg/dL Borderline high LDL 160-189 mg/dL High LDL greater than 189 mg/dL Very high Performed By: #### C KMB, LIPID, CMP, CK, HSCRP, BNP, THYROID SC, CBC #### [facility] [address] [place] [id number] [facility] Lipid Panelon 06-09-2023 Cholesterol [Mass/Vol] 216 mg/dL High 140-200 [facility] Comment on above: Order Comment: Reaso n for Exam Other chest pain;Primary hypertension Result Comment: Chol less than 200 mg/dl low risk Chol 201-239 mg/dl borderline risk Chol 240 mg/dl and greater high risk Performed By: #### C KMB, LIPID, CMP, CK, HSCRP, BNP, THYROID SC, CBC #### [facility] [address] Cholesterol in HDL [Mass/Vol] 69 mg/dL Normal 23-92 [facility] Comment on above: Order Comment: Reaso n for Exam Other chest pain;Primary hypertension Result Comment: HDL CHOL ATP-III CLASSIFICATION Cardiovascular Risk HDL > or equal to 60 mg/dL LOW HDL < 40 mg/dL HIGH Performed By: #### C KMB, LIPID, CMP, CK, HSCRP, BNP, THYROID SC, CBC #### [facility] [address] Cholesterol.total/Chol esterol in HDL [Mass ratio] 3.1 {ratio} Normal <5.0 [facility] Comment on above: Order Comment: Reaso n for Exam Other chest pain;Primary hypertension Performed By: #### C KMB, LIPID, CMP, CK, HSCRP, BNP, THYROID SC, CBC #### [facility] [address] [place] [address] [place] LDL Cholesterol,Calculated Not performed Normal 0-100 [facility] Comment on above: Order Comment: Reaso n for Exam Other chest pain;Primary hypertension Performed By: #### C KMB, LIPID, CMP, CK, HSCRP, BNP, THYROID SC, CBC #### [facility] [address] [place] [address] [place] Triglyceride w/Reflex 443 mg/dL High 0-149 [facility] Comment on above: Order Comment: Reaso n for Exam Other chest pain;Primary hypertension Result Comment: TRIG ATP III CLASSIFICATION TRIG less than 150 mg/dL Normal TRIG 150-199 mg/dL Borderline high TRIG 200-500 mg/dL High TRIG greater than 500 mg/dL Very high Standard traceable to the Center for Disease Conrtrol and Prevention (CDC) test method. If the triglyceride result is greater than 400, LDLC and related calculations cannot be calculated and resulted. Performed By: #### C KMB, LIPID, CMP, CK, HSCRP, BNP, THYROID SC, CBC #### [facility] [address] VLDL CHOLESTEROL 88 mg/dL Normal [facility] Comment on above: Order Comment: Reaso n for Exam Other chest pain;Primary hypertension Performed By: #### C KMB, LIPID, CMP, CK, HSCRP, BNP, THYROID SC, CBC #### [facility] [address] MicroAlb Creat Ratio,Uon Albumin DL <= 20 mg/L (U) [Mass/Vol] 2.1 mg/dL High 0.0-1.8 [facility] Comment on above: Order Comment: Reaso n for Exam Other chest pain;Primary hypertension Performed By: #### C KMB, LIPID, CMP, CK, HSCRP, BNP, THYROID SC, CBC #### [address] Creatinine, Urine (Random) 66.0 mg/dL High 11.0-20.0 [facility] Comment on above: Order Comment: Reaso n for Exam Other chest pain;Primary hypertension Performed By: #### C KMB, LIPID, CMP, CK, HSCRP, BNP, THYROID SC, CBC #### [address] Microalbumin/Creatinin e Ratio 31.0 mg/g High 0.0-30.0 [facility] Comment on above: Order Comment: Reaso n for Exam Other chest pain;Primary hypertension Result Comment: 30-3 00 mg/g indicates an increased risk for diabetic nephropathy. Greater than 300 mg/g is consistent with clinical nephropathy. (Am. J. Kidney Disease 1995, 25:107) PERFORMED BY: [place] [address] PATHOLOGIST DRIER PALOMO WESLEY M.D. Performed By: #### C KMB, LIPID, CMP, CK, HSCRP, BNP, THYROID SC, CBC #### [address] THYROID SCREENon 06-09-2023 Free T4 [Mass/Vol] 0.68 ng/dL Normal 0.61-1.12 [facility] Comment on above: Order Comment: Reaso n for Exam Other chest pain;Primary hypertension Performed By: #### C KMB, LIPID, CMP, CK, HSCRP, BNP, THYROID SC, CBC #### [facility] [address] TSH Qn 2.09 m[IU]/L Normal 0.45-5.33 [facility] Comment on above: Order Comment: Reaso n for Exam Other chest pain;Primary hypertension Performed By: #### C KMB, LIPID, CMP, CK, HSCRP, BNP, THYROID SC, CBC #### [facility] [address] Toxassure, Urineon Toxassure, Urine Summary FINAL Normal . [facility] Comment on above: Order Comment: Reaso n for Exam Other chest pain;Primary hypertension Result Comment: ===== TOXASSURE COMP DRUG ANALYSIS,UR ===== Test Result Flag Units Drug Present Benzoylecgonine >7937 ng/mg creat Benzoylecgonine is a metabolite of cocaine; its presence indicates use of this drug. Source is most commonly illicit, but cocaine is present in some topical anesthetic solutions. Alcohol, Ethyl 0.070 g/dL Sources of ethyl alcohol include alcoholic beverages or as a fermentation product of glucose; glucose was not detected in this specimen. Ethyl alcohol result should be interpreted in the context of all available clinical and behavioral information. Carboxy-THC 263 ng/mg creat Carboxy-THC is a metabolite of tetrahydrocannabinol (THC). Source of THC is most commonly herbal marijuana or marijuana-based products, but THC is also present in a scheduled prescription medication. Trace amounts of THC can be present in hemp and cannabidiol (CBD) products. This test is not intended to distinguish between nausn-2-muqqjpymdktvhkkvkvso, the predominant form of THC in most herbal or marijuana-based products, and kbjup-0-rfqgzvraeqhwmglwruic. Gabapentin PRESENT Cyclobenzaprine PRESENT Desmethylcyclobenzaprine PRESENT Desmethylcyclobenzaprine is an expected metabolite of cyclobenzaprine. Naproxen PRESENT ===== Test Result Flag Units Ref Range Creatinine 63 mg/dL >=20 ===== Declared Medications: Medication list was not provided. ===== For clinical consultation, please call . ===== Performed at: [facility] [address] [id number] [employer] Animal Caretaker: Ana Martin, Phone: [phone] PERFORMED BY: [facility] [place] [address] PATHOLOGIST DRIER PALOMO WESLEY M.D. Performed By: #### C KMB, LIPID, CMP, CK, HSCRP, BNP, THYROID SC, CBC #### [facility] [address] [place] [id number] [facility] Vitamin D 25 Hydroxy Totalon 06-09-2023 Vitamin D 25 Hydroxy Total 19.8 ng/mL Low 30-100 [facility] Comment on above: Order Comment: Reaso n for Exam Other chest pain;Primary hypertension Result Comment: IDRIS MIN D STATUS 25(OH)VITAMIN D RANGE (ng/mL) Deficient <20 Insufficient 20 to <30 Sufficient 30 to 100 Reference: Baron MF,Suze DONOVAN, Abdiel MAXWELL, et al. Evaluation,treatment, and prevention of vitamin D deficiency; an Endocrine Society clinical practice guideline. JCEM. 2010; 96(7):1911-30. PERFORMED BY: [place] [address] PATHOLOGIST DRIER PALOMO WESLEY M.D. Performed By: #### C KMB, LIPID, CMP, CK, HSCRP, BNP, THYROID SC, CBC #### [facility] [address] [place] [address] [facility] Heart and Vascular Office/Cl inic Noteon 04-11-2023 Heart and Vascular Office/Clinic Note Chief Complaint new pt est care - cardiac clearance History of Present Illness Isela Craig is a 52-year-old female who presents [...] age, normal judgement, normal psychiatric thoughts. Assessment/Plan Isela Craig is a 52-year-old female with significant [...] with voice recognition artificial intelligence software, specifically Agent Ace, JJ PHARMA and or Corengi. Substitutions may have occurred with voice recognition and artificial intelligence software. Documentation services were performed after patient or guardian consented to allow [employer] to record this visit. ANDERSON mapping specialist and provider reviewed before signing. ANDERSON: [...] 3 refi (more content not included)... Normal [facility] Comment on above: Result Comment: Elec tronically Signed By: Jose PATRICK, Ramone Butt\.br\Date and Time Signed: 04/11/23 19:52 EST\.br\Electronically Co-Signed By: Janie Villarreal\.br\Date and Time Co-Signed: 03/22/23 14:46 EST US renal BIon 04-01-2023 US renal BI [facility] [place] [address] Ultrasound Report Signed Patient: Isela Craig MR#: [id number] : 1970 Acct:[id number] Age/Sex: 52 / F ADM Date: 04/01/23 Loc: Room: [facility]: Jes Vasquez FORESTRY ADVISERBethC Ordering Provider: Jes Vasquez Date of Service: 04/01/23 US/US renal BI: R31.9 ([id number]) US/US bladder: R31.9 Copies to: Jes Vasquez [...] findings. Impression dictated by: Freddy Johns Jr., D.O.04/01/2023 3:16 PM Dictation Location: [place] [address] Tech: Chloe Delcid Transcribed By: [facility] 04/01/23 151 Dictated By: Freddy Johns Jr, DO 04/01/23 151 Signed By: 04/01/23 1516 Normal [facility] XR KUBon 04-01-2023 XR KUB [facility] [place] [address] XRay Report Signed Patient: Isela Craig MR#: [id number] : 1970 Acct:[id number] Age/Sex: 52 / F ADM Date: 04/01/23 Loc: Room: Type: [facility] Attending Dr: Jes GARCIAC Copies to: Jes Vasquez Ordering Provider: Jes [...] Shae Guzman M.D.04/01/2023 3:38 PM Dictation Location: RADIO-PC-10 Transcribed By: [facility] 04/01/23 1538 Dictated By: Shae Guzman MD 04/01/23 1536 Signed By: 04/01/23 1538 [facility] Insurance Correspondenceon 1 05-24-2022 Insurance Correspondence [id number] 0TIFF [facility] Consent for Treatmenton 03-05 Consent for Treatment [id number] 0TIFF [facility] Physician Orderon 03-22-2023 Physician Order [id number]#1 .00TIFF [facility] Referrals Officeon 3 Referrals Office [id number] 20 [id number] .00TIFF [facility] COVID Quick Testingon 2022 Result Negative [employer] Other Quick Strepon 12-15-2022 S. pyogenes Org specific cx Ql (Throat) Negative [employer] Other Quick Strep [employer] Other COVID + FLU Quick Testingon 10-14-2022 SARS-CoV-2 (COVID-19) RNA AISSATOU+probe Ql (Unsp spec) Negative [employer] Other COVID + FLU Quick Testing Negative [employer] Other Quick Strepon 10-14-2022 S. pyogenes Org specific cx Ql (Throat) Negative [employer] Other Quick Strep [employer] Other Office Visit (Cardiology)on 06-24-2022 Follow-up visit Diagnoses/Problems Assessed Costochondritis (733.6) (M94.0) Palpitations (785.1) (R00.2) For the most part brief and fleeting, seem most consistent with PVC. Coronary artery disease involving [place] coronary artery of [place] heart without angina pectoris (414.01) (I25.10) Mar [...] contact the office if new symptoms arise. 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 Patient presents to the office ambulatory with steady gait. Last evaluated in clinic by myself May 2021. She has been no-show for subsequent follow-up. She is seen today at the request of PCP due to recent emergency department evaluation. Last week she presented to [facility] due to chest pain and dizziness. [...] and fluttering . 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 Due to blood pressure and palpitations [...] Recorded: 24Jun2022 09:32AM Heart Rate88, R Radial Mplluakg052, RUE, Si (more content not included)... Normal [employer] Tobacco Screening.on 023 Adult depression screening assessment No [facility] 250 DO Work Phone: Tobacco use status CPHS a) Yes [facility] 250 DO Work Phone: Tobacco Screening. Yes [facility] 250 DO Work Phone: Alanine aminotransferase [En zymatic activity/volume] in Serum or PlasmaOrdered By: Jes Vasquez on 06-19-2022 ALT [Catalytic activity/Vol] 11 U/L 7-52 [facility] Albumin [Mass/volume] in Ser um or Plasma by Bromocresol green (BCG) dye binding methoOrdered By: Jes Vasquez on 06-19-2022 Albumin BCG dye [Mass/Vol] 4.0 g/dL 3.5-5.7 [facility] Alkaline phosphatase [Enzyma tic activity/volume] in Serum or PlasmaOrdered By: Jes Vasquez on 06-19-2022 ALP [Catalytic activity/Vol] 70 U/L 34-104 [facility] Aspartate aminotransferase [ Enzymatic activity/volume] in Serum or PlasmaOrdered By: Jes Vasquez on 06-19-2022 AST [Catalytic activity/Vol] 11 U/L 13-39 [facility] B-Type Natriuretic Peptideon 06-19-2022 Natriuretic peptide B (Bld) [Mass/Vol] 87.0 pg/mL Normal 5-100 [facility] Comment on above: Order Comment: Reaso n for Exam Other chest pain;Primary hypertension Result Comment: PERF ORMED BY: [facility] [address] [place] [address] PATHOLOGIST DRIER PALOMO WESLEY M.D. Performed By: #### C KMB, LIPID, CMP, CK, HSCRP, BNP, THYROID SC, CBC #### [facility] [address] Basophils Auto (Bld) [#/Vol] Ordered By: Jes Vasquez on 06-19-2022 Basophils (Bld) [#/Vol] 0.1 10*3/uL 0.0-0.2 [facility] Basophils/100 WBC Auto (Bld) Ordered By: Jes Vasquez on 06-19-2022 Basophils/100 WBC (Bld) 1.2 % . [facility] Bilirubin.total [Mass/volume ] in Serum or PlasmaOrdered By: Jes Vasquez on 06-19-2022 Bilirubin [Mass/Vol] 0.2 mg/dL 0.3-1.0 [place] C reactive protein [Mass/vol ume] in Serum or Plasma by High sensitivity methodOrdered By: Jes Vasquez on 06-19-2022 CRP High sensitivity method [Mass/Vol] 0.4 mg/L 0.0-0.9 [facility] Comment on above: Cardiovascular Risk Classification (AHA/CDC)hsCRP [...] on 06-19-2022 Calcium [Mass/Vol] 9.1 mg/dL 8.6-10.3 [facility] Carbon dioxide, total [Moles /volume] in Serum or PlasmaOrdered By: Jes Vasquez on 06-19-2022 CO2 [Moles/Vol] 24.4 mmol/L 21.0-31.0 [facility] Chloride [Moles/volume] in S shanna or PlasmaOrdered By: Jes Vasquez on 06-19-2022 Chloride [Moles/Vol] 108 mmol/L 98-107 [place] Cholesterol [Mass/volume] in Serum or PlasmaOrdered By: Jes Vasquez on 06-19-2022 Cholesterol [Mass/Vol] 190 mg/dL 140-200 [facility] Comment on above: Chol less than 200 m g/dl low riskChol 201-239 mg/dl borderline riskChol 240 mg/dl and greater high risk Cholesterol in LDL Calc [Mas s/Vol]Ordered By: Jes Vasquez on 06-19-2022 Cholesterol in LDL [Mass/Vol] 74 mg/dL 0-100 [facility] Comment on above: LDL ATP III CLASSIFI CATIONLDL less than 100 mg/dL OptimalLDL 100-129 mg/dL Near or above optimalLDL 130-159 mg/dL Borderline highLDL 160-189 mg/dL HighLDL greater than 189 mg/dL Very high Cholesterol in VLDL Calc [Ma ss/Vol]Ordered By: Jes Vasquez on 06-19-2022 Cholesterol in VLDL [Mass/Vol] 48 mg/dL [facility] Complete Blood Count Auto Di ffon 06-19-2022 Basophils (Bld) [#/Vol] 0.1 10*3/uL Normal 0.0-0.2 [facility] Comment on above: Order Comment: Reaso n for Exam Other chest pain;Primary hypertension Result Comment: PERF ORMED BY: [place] [address] PATHOLOGIST DRIER PALOMO WESLEY M.D. Performed By: #### C KMB, LIPID, CMP, CK, HSCRP, BNP, THYROID SC, CBC #### [address] Basophils/100 WBC (Bld) 1.2 % Normal . [facility] Comment on above: Order Comment: Reaso n for Exam Other chest pain;Primary hypertension Performed By: #### C KMB, LIPID, CMP, CK, HSCRP, BNP, THYROID SC, CBC #### [address] Eosinophils (Bld) [#/Vol] 0.2 10*3/uL Normal 0.0-0.45 [facility] Comment on above: Order Comment: Reaso n for Exam Other chest pain;Primary hypertension Performed By: #### C KMB, LIPID, CMP, CK, HSCRP, BNP, THYROID SC, CBC #### [address] Eosinophils/100 WBC (Bld) 2.5 % Normal . [facility] Comment on above: Order Comment: Reaso n for Exam Other chest pain;Primary hypertension Performed By: #### C KMB, LIPID, CMP, CK, HSCRP, BNP, THYROID SC, CBC #### [address] Erythrocyte distribution width (RBC) [Ratio] 13.2 % Normal 11.9-15.3 [facility] Comment on above: Order Comment: Reaso n for Exam Other chest pain;Primary hypertension Performed By: #### C KMB, LIPID, CMP, CK, HSCRP, BNP, THYROID SC, CBC #### [address] Hematocrit (Bld) [Volume fraction] 39.3 % Normal 34.0-46.4 [facility] Comment on above: Order Comment: Reaso n for Exam Other chest pain;Primary hypertension Performed By: #### C KMB, LIPID, CMP, CK, HSCRP, BNP, THYROID SC, CBC #### [address] Hemoglobin (Bld) [Mass/Vol] 13.1 g/dL Normal 11.8-15.4 [facility] Comment on above: Order Comment: Reaso n for Exam Other chest pain;Primary hypertension Performed By: #### C KMB, LIPID, CMP, CK, HSCRP, BNP, THYROID SC, CBC #### [place] [address] [place] Lymphocytes (Bld) [#/Vol] 2.5 10*3/uL Normal 1.00-4.8 [facility] Comment on above: Order Comment: Reaso n for Exam Other chest pain;Primary hypertension Performed By: #### C KMB, LIPID, CMP, CK, HSCRP, BNP, THYROID SC, CBC #### [address] Lymphocytes/100 WBC (Bld) 30.3 % Normal . [facility] Comment on above: Order Comment: Reaso n for Exam Other chest pain;Primary hypertension Performed By: #### C KMB, LIPID, CMP, CK, HSCRP, BNP, THYROID SC, CBC #### [address] MCH (RBC) [Entitic mass] 33.2 pg Normal 24.7-34.3 [facility] Comment on above: Order Comment: Reaso n for Exam Other chest pain;Primary hypertension Performed By: #### C KMB, LIPID, CMP, CK, HSCRP, BNP, THYROID SC, CBC #### [address] MCV (RBC) [Entitic vol] 99.5 fL Normal 80-100 [facility] Comment on above: Order Comment: Reaso n for Exam Other chest pain;Primary hypertension Performed By: #### C KMB, LIPID, CMP, CK, HSCRP, BNP, THYROID SC, CBC #### [address] Mean Corpuscular HGB Conc 33.4 g/dL Normal 32.0-35.0 [facility] Comment on above: Order Comment: Reaso n for Exam Other chest pain;Primary hypertension Performed By: #### C KMB, LIPID, CMP, CK, HSCRP, BNP, THYROID SC, CBC #### [address] Monocytes (Bld) [#/Vol] 1.0 10*3/uL High 0.0-0.8 [facility] Comment on above: Order Comment: Reaso n for Exam Other chest pain;Primary hypertension Performed By: #### C KMB, LIPID, CMP, CK, HSCRP, BNP, THYROID SC, CBC #### [facility] [address] [place] [address] [place] Monocytes/100 WBC (Bld) 11.6 % Normal . [facility] Comment on above: Order Comment: Reaso n for Exam Other chest pain;Primary hypertension Performed By: #### C KMB, LIPID, CMP, CK, HSCRP, BNP, THYROID SC, CBC #### [facility] [address] Neutrophils (Bld) [#/Vol] 4.5 10*3/uL Normal 1.8-7.7 [facility] Comment on above: Order Comment: Reaso n for Exam Other chest pain;Primary hypertension Performed By: #### C KMB, LIPID, CMP, CK, HSCRP, BNP, THYROID SC, CBC #### [facility] [address] Neutrophils/100 WBC (Bld) 54.4 % Normal . [facility] Comment on above: Order Comment: Reaso n for Exam Other chest pain;Primary hypertension Performed By: #### C KMB, LIPID, CMP, CK, HSCRP, BNP, THYROID SC, CBC #### [place] [address] [place] NRBC% 0.2 /100{WBC} Normal 0-0.5 [facility] Comment on above: Order Comment: Reaso n for Exam Other chest pain;Primary hypertension Performed By: #### C KMB, LIPID, CMP, CK, HSCRP, BNP, THYROID SC, CBC #### [place] [address] [place] Platelet mean volume (Bld) [Entitic vol] 10.2 fL Normal 6.3-10.7 [facility] Comment on above: Order Comment: Reaso n for Exam Other chest pain;Primary hypertension Performed By: #### C KMB, LIPID, CMP, CK, HSCRP, BNP, THYROID SC, CBC #### [place] [address] [place] Platelets (Bld) [#/Vol] 297 10*3/uL Normal 150-450 [facility] Comment on above: Order Comment: Reaso n for Exam Other chest pain;Primary hypertension Performed By: #### C KMB, LIPID, CMP, CK, HSCRP, BNP, THYROID SC, CBC #### [facility] [address] RBC (Bld) [#/Vol] 3.95 10*6/uL Normal 3.60-5.00 [facility] Comment on above: Order Comment: Reaso n for Exam Other chest pain;Primary hypertension Performed By: #### C KMB, LIPID, CMP, CK, HSCRP, BNP, THYROID SC, CBC #### [facility] [address] WBC (Bld) [#/Vol] 8.2 10*3/uL Normal 3.8-11.6 [facility] Comment on above: Order Comment: Reaso n for Exam Other chest pain;Primary hypertension Performed By: #### C KMB, LIPID, CMP, CK, HSCRP, BNP, THYROID SC, CBC #### [facility] [address] Comprehensive Metabolic Pane bryon 06-19-2022 Albumin [Mass/Vol] 4.0 g/dL Normal 3.5-5.7 [facility] Comment on above: Order Comment: Reaso n for Exam Other chest pain;Primary hypertension Performed By: #### C KMB, LIPID, CMP, CK, HSCRP, BNP, THYROID SC, CBC #### [facility] [address] [place] [address] Albumin/Globulin [Mass ratio] 1.7 {ratio} Normal [facility] Comment on above: Order Comment: Reaso n for Exam Other chest pain;Primary hypertension Performed By: #### C KMB, LIPID, CMP, CK, HSCRP, BNP, THYROID SC, CBC #### [facility] [address] [place] [address] ALP [Catalytic activity/Vol] 70 U/L Normal 34-104 [facility] Comment on above: Order Comment: Reaso n for Exam Other chest pain;Primary hypertension Performed By: #### C KMB, LIPID, CMP, CK, HSCRP, BNP, THYROID SC, CBC #### [facility] [address] [place] [id number] [facility] ALT [Catalytic activity/Vol] 11 U/L Normal 7-52 [facility] Comment on above: Order Comment: Reaso n for Exam Other chest pain;Primary hypertension Performed By: #### C KMB, LIPID, CMP, CK, HSCRP, BNP, THYROID SC, CBC #### [facility] [address] Anion gap [Moles/Vol] 10.9 mmol/L Normal 6.0-15.0 [facility] Comment on above: Order Comment: Reaso n for Exam Other chest pain;Primary hypertension Performed By: #### C KMB, LIPID, CMP, CK, HSCRP, BNP, THYROID SC, CBC #### [facility] [address] AST [Catalytic activity/Vol] 11 U/L Low 13-39 [facility] Comment on above: Order Comment: Reaso n for Exam Other chest pain;Primary hypertension Performed By: #### C KMB, LIPID, CMP, CK, HSCRP, BNP, THYROID SC, CBC #### [address] Bilirubin [Mass/Vol] 0.2 mg/dL Low 0.3-1.0 [place] Comment on above: Order Comment: Reaso n for Exam Other chest pain;Primary hypertension Performed By: #### C KMB, LIPID, CMP, CK, HSCRP, BNP, THYROID SC, CBC #### [address] Calcium [Mass/Vol] 9.1 mg/dL Normal 8.6-10.3 [facility] Comment on above: Order Comment: Reaso n for Exam Other chest pain;Primary hypertension Performed By: #### C KMB, LIPID, CMP, CK, HSCRP, BNP, THYROID SC, CBC #### [place] [id number] [facility] Chloride [Moles/Vol] 108 mmol/L High 98-107 [place] Comment on above: Order Comment: Reaso n for Exam Other chest pain;Primary hypertension Performed By: #### C KMB, LIPID, CMP, CK, HSCRP, BNP, THYROID SC, CBC #### [facility] [address] CO2 [Moles/Vol] 24.4 mmol/L Normal 21.0-31.0 [facility] Comment on above: Order Comment: Reaso n for Exam Other chest pain;Primary hypertension Performed By: #### C KMB, LIPID, CMP, CK, HSCRP, BNP, THYROID SC, CBC #### [facility] [address] Creatinine [Mass/Vol] 0.79 mg/dL Normal 0.60-1.20 [facility] Comment on above: Order Comment: Reaso n for Exam Other chest pain;Primary hypertension Performed By: #### C KMB, LIPID, CMP, CK, HSCRP, BNP, THYROID SC, CBC #### [facility] [address] GFR/1.73 sq M.predicted MDRD (S/P/Bld) [Vol rate/Area] mL/min/{1.73_m2} [facility] Comment on above: Order Comment: Reaso n for Exam Other chest pain;Primary hypertension Performed By: #### C KMB, LIPID, CMP, CK, HSCRP, BNP, THYROID SC, CBC #### [facility] [address] Globulin (S) [Mass/Vol] 2.3 g/dL [facility] Comment on above: Order Comment: Reaso n for Exam Other chest pain;Primary hypertension Performed By: #### C KMB, LIPID, CMP, CK, HSCRP, BNP, THYROID SC, CBC #### [facility] [address] Glucose [Mass/Vol] 94 mg/dL Normal 74-109 [facility] Comment on above: Order Comment: Reaso n for Exam Other chest pain;Primary hypertension Result Comment: [facility] Glucose Reference Range is dependent on time and content of last meal. Glucose of more than 200 mg/dL in a nonstressed, ambulatory subject supports the diagnosis of Diabetes Mellitus. ADA recommended reference range Performed By: #### C KMB, LIPID, CMP, CK, HSCRP, BNP, THYROID SC, CBC #### [facility] [address] Potassium [Moles/Vol] 4.3 mmol/L Normal 3.5-5.1 [facility] Comment on above: Order Comment: Reaso n for Exam Other chest pain;Primary hypertension Performed By: #### C KMB, LIPID, CMP, CK, HSCRP, BNP, THYROID SC, CBC #### [facility] [address] Protein [Mass/Vol] 6.3 g/dL Low 6.4-8.9 [facility] Comment on above: Order Comment: Reaso n for Exam Other chest pain;Primary hypertension Performed By: #### C KMB, LIPID, CMP, CK, HSCRP, BNP, THYROID SC, CBC #### [facility] [address] Sodium [Moles/Vol] 139 mmol/L Normal 136-145 [facility] Comment on above: Order Comment: Reaso n for Exam Other chest pain;Primary hypertension Performed By: #### C KMB, LIPID, CMP, CK, HSCRP, BNP, THYROID SC, CBC #### [facility] [address] Urea nitrogen [Mass/Vol] 9 mg/dL Normal 7-25 [facility] Comment on above: Order Comment: Reaso n for Exam Other chest pain;Primary hypertension Performed By: #### C KMB, LIPID, CMP, CK, HSCRP, BNP, THYROID SC, CBC #### [facility] [address] [place] [phone] [place] Creatine Kinaseon 06-19-2022 CK [Catalytic activity/Vol] 35 U/L Normal 30-223 [facility] Comment on above: Order Comment: Reaso n for Exam Other chest pain Performed By: #### C KMB, LIPID, CMP, CK, HSCRP, BNP, THYROID SC, CBC #### [facility] [address] [place] [id number] [place] Creatine kinase [Enzymatic a ctivity/volume] in Serum or PlasmaOrdered By: Jes Vasquez on 06-19-2022 CK [Catalytic activity/Vol] 35 U/L 30-223 [facility] Creatine kinase.MB [Mass/vol ume] in Serum or PlasmaOrdered By: Jes Vasquez on 06-19-2022 CK.MB [Mass/Vol] 2.3 ng/mL 0.6-6.3 [facility] Creatinine Kinase MBon 06-19 CK.MB [Mass/Vol] 2.3 ng/mL Normal 0.6-6.3 [facility] Comment on above: Order Comment: Reaso n for Exam Other chest pain Performed By: #### C KMB, LIPID, CMP, CK, HSCRP, BNP, THYROID SC, CBC #### [facility] [address] CKMB Relative Index 6.5 % High 0.00-2.50 [facility] Comment on above: Order Comment: Reaso n for Exam Other chest pain Result Comment: PERF ORMED BY: [facility] [address] [facility] [address] PATHOLOGIST DRIER PALOMO WESLEY M.D. Performed By: #### C KMB, LIPID, CMP, CK, HSCRP, BNP, THYROID SC, CBC #### [facility] [address] Creatinine [Mass/volume] in Serum or PlasmaOrdered By: Jes Vasquez on 06-19-2022 Creatinine [Mass/Vol] 0.79 mg/dL 0.60-1.20 [facility] Eosinophils Auto (Bld) [#/Vo l]Ordered By: Jes Vasquez on 06-19-2022 Eosinophils (Bld) [#/Vol] 0.2 10*3/uL 0.0-0.45 [facility] Eosinophils/100 WBC Auto (Bl d)Ordered By: Jes Vasquez on 06-19-2022 Eosinophils/100 WBC (Bld) 2.5 % . [facility] Erythrocyte distribution wid th Auto (RBC) [Ratio]Ordered By: Jes Vasquez on 06-19-2022 Erythrocyte distribution width (RBC) [Ratio] 13.2 % 11.9-15.3 [facility] Globulin Calc (S) [Mass/Vol] Ordered By: Jes Vasquez on 06-19-2022 Globulin (S) [Mass/Vol] 2.3 g/dL [facility] Glucose [Mass/volume] in Ser um or PlasmaOrdered By: Jes Vasquez on 06-19-2022 Glucose [Mass/Vol] 94 mg/dL 74-109 [facility] Comment on above: ADA recommended refe rence rangeRandom Glucose Reference Range is dependent on time and content of last meal. Glucose of more than 200 mg/dL in a nonstressed, ambulatory subject supports the diagnosis of Diabetes Mellitus. Hematocrit Auto (Bld) [Volum e fraction]Ordered By: Jes Vasquez on 06-19-2022 Hematocrit (Bld) [Volume fraction] 39.3 % 34.0-46.4 [facility] Hemoglobin [Mass/volume] in BloodOrdered By: Jes Vasquez on 06-19-2022 Hemoglobin (Bld) [Mass/Vol] 13.1 g/dL 11.8-15.4 [facility] High Sensitive CRPon 023 High Sensitive CRP 0.4 mg/L Normal 0.0-0.9 [facility] Comment on above: Order Comment: [...] for estimation of CVD risk. PERFORMED BY: [facility] Cyndee [place] [address] PATHOLOGIST DRIER PALOMO WESLEY M.D. Performed By: #### C KMB, LIPID, CMP, CK, HSCRP, BNP, THYROID SC, CBC #### [facility] [address] Laboratory - Chemistry and C hemistry - challengeOrdered By: Jes Vasquez on 06-19-2022 GFR/1.73 sq M.predicted MDRD (S/P/Bld) [Vol rate/Area] mL/min/{1.73_m2} [facility] Leukocytes [#/volume] correc ricardo for nucleated erythrocytes in Blood by Automated counOrdered By: Jes Vasquez on 06-19-2022 WBC corrected for nucl RBC Auto (Bld) [#/Vol] 8.2 10*3/uL 3.8-11.6 [facility] Lipid Panelon 06-19-2022 Cholesterol [Mass/Vol] 190 mg/dL Normal 140-200 [facility] Comment on above: Order Comment: Reaso n for Exam Other chest pain;Primary hypertension Result Comment: Chol less than 200 mg/dl low risk Chol 201-239 mg/dl borderline risk Chol 240 mg/dl and greater high risk Performed By: #### C KMB, LIPID, CMP, CK, HSCRP, BNP, THYROID SC, CBC #### [facility] [address] [place] [address] [place] Cholesterol in HDL [Mass/Vol] 68 mg/dL Normal 35-85 [facility] Comment on above: Order Comment: Reaso n for Exam Other chest pain;Primary hypertension Result Comment: HDL CHOL ATP-III CLASSIFICATION Cardiovascular Risk HDL > or equal to 60 mg/dL LOW HDL < 40 mg/dL HIGH Performed By: #### C KMB, LIPID, CMP, CK, HSCRP, BNP, THYROID SC, CBC #### [facility] [address] [place] [address] [place] Cholesterol.total/Chol esterol in HDL [Mass ratio] 2.8 {ratio} Normal <5.0 [facility] Comment on above: Order Comment: Reaso n for Exam Other chest pain;Primary hypertension Performed By: #### C KMB, LIPID, CMP, CK, HSCRP, BNP, THYROID SC, CBC #### [facility] [address] [place] [id number] [place] LDL Cholesterol,Calculated 74 mg/dL Normal 0-100 [facility] Comment on above: Order Comment: Reaso n for Exam Other chest pain;Primary hypertension Result Comment: LDL ATP III CLASSIFICATION LDL less than 100 mg/dL Optimal LDL 100-129 mg/dL Near or above optimal LDL 130-159 mg/dL Borderline high LDL 160-189 mg/dL High LDL greater than 189 mg/dL Very high Performed By: #### C KMB, LIPID, CMP, CK, HSCRP, BNP, THYROID SC, CBC #### [facility] [address] Triglyceride w/Reflex 241 mg/dL High 0-149 [facility] Comment on above: Order Comment: Reaso n for Exam Other chest pain;Primary hypertension Result Comment: TRIG ATP III CLASSIFICATION TRIG less than 150 mg/dL Normal TRIG 150-199 mg/dL Borderline high TRIG 200-500 mg/dL High TRIG greater than 500 mg/dL Very high Standard traceable to the Center for Disease Conrtrol and Prevention (CDC) test method. Performed By: #### C KMB, LIPID, CMP, CK, HSCRP, BNP, THYROID SC, CBC #### [facility] [address] VLDL CHOLESTEROL 48 mg/dL Normal [facility] Comment on above: Order Comment: Reaso n for Exam Other chest pain;Primary hypertension Performed By: #### C KMB, LIPID, CMP, CK, HSCRP, BNP, THYROID SC, CBC #### [facility] [address] Lymphocytes Auto (Bld) [#/Vo l]Ordered By: Jes Vasquez on 06-19-2022 Lymphocytes (Bld) [#/Vol] 2.5 10*3/uL 1.00-4.8 [facility] Lymphocytes/100 WBC Auto (Bl d)Ordered By: Jes Vasquez on 06-19-2022 Lymphocytes/100 WBC (Bld) 30.3 % . [facility] MCH Auto (RBC) [Entitic mass ]Ordered By: Jes Vasquez on 06-19-2022 MCH (RBC) [Entitic mass] 33.2 pg 24.7-34.3 [facility] MCHC Auto (RBC) [Mass/Vol]Or dered By: Jes Vasquez on 06-19-2022 MCHC (RBC) [Mass/Vol] 33.4 g/dL 32.0-35.0 [facility] MCV Auto (RBC) [Entitic vol] Ordered By: Jes Vasquez on 06-19-2022 MCV (RBC) [Entitic vol] 99.5 fL 80-100 [facility] Monocytes Auto (Bld) [#/Vol] Ordered By: Jes Vasquez on 06-19-2022 Monocytes (Bld) [#/Vol] 1.0 10*3/uL 0.0-0.8 [facility] Monocytes/100 WBC Auto (Bld) Ordered By: Jes Vasquez on 06-19-2022 Monocytes/100 WBC (Bld) 11.6 % . [facility] Natriuretic peptide B [Mass/ Vol]Ordered By: Jes Vasquez on 06-19-2022 Natriuretic peptide B (Bld) [Mass/Vol] 87.0 pg/mL 5-100 [facility] Neutrophils Auto (Bld) [#/Vo l]Ordered By: Jes Vasquez on 06-19-2022 Neutrophils (Bld) [#/Vol] 4.5 10*3/uL 1.8-7.7 [facility] Neutrophils/100 WBC Auto (Bl d)Ordered By: Jes Vasquez on 06-19-2022 Neutrophils/100 WBC (Bld) 54.4 % . [facility] No Panel InformationOrdered By: Jes Vasquez on 06-19-2022 Pharmacy Creatinine Clearance (Chem N/A [facility] Nucleated erythrocytes [Pres ence] in Blood by Automated countOrdered By: Jes Vasquez on 06-19-2022 Nucleated RBC Auto Ql (Bld) 0.2 /100{WBC} 0-0.5 [facility] Platelet mean volume Auto (B ld) [Entitic vol]Ordered By: Jes Vasquez on 06-19-2022 Platelet mean volume (Bld) [Entitic vol] 10.2 fL 6.3-10.7 [facility] Platelets Auto (Bld) [#/Vol] Ordered By: Jes Vasquez on 06-19-2022 Platelets (Bld) [#/Vol] 297 10*3/uL 150-450 [facility] Potassium [Moles/volume] in Serum or PlasmaOrdered By: Jes Vasquez on 06-19-2022 Potassium [Moles/Vol] 4.3 mmol/L 3.5-5.1 [facility] Protein [Mass/volume] in Ser um or PlasmaOrdered By: Jes Vasquez on 06-19-2022 Protein [Mass/Vol] 6.3 g/dL 6.4-8.9 [facility] RBC Auto (Bld) [#/Vol]Ordere d By: Jes Vasquez on 06-19-2022 RBC (Bld) [#/Vol] 3.95 10*6/uL 3.60-5.00 [facility] Serum or plasma albumin/glob ulin mass ratioOrdered By: Jes Vasquez on 06-19-2022 Albumin/Globulin [Mass ratio] 1.7 {ratio} [facility] Serum or plasma anion gap de terminationOrdered By: Jes Vasquez on 06-19-2022 Anion gap [Moles/Vol] 10.9 mmol/L 6.0-15.0 [facility] Serum or plasma creatine kin ase MB (CKMB)/total creatine kinase (CK) ratio by calculaOrdered By: Jes Vasquez on 06-19-2022 CK.MB Calc [Catalytic fraction] 6.5 % 0.00-2.50 [facility] Serum or plasma high density lipoprotein (HDL) cholesterol measurementOrdered By: Jes Vasquez on 06-19-2022 Cholesterol in HDL [Mass/Vol] 68 mg/dL 35-85 [facility] Comment on above: HDL CHOL ATP-III CLA SSIFICATION Cardiovascular RiskHDL > or equal to 60 mg/dL LOWHDL < 40 mg/dL HIGH Serum or plasma total choles terol/high density lipoprotein (HDL) cholesterol mass ratOrdered By: Jes Vasquez on 06-19-2022 Cholesterol.total/Chol esterol in HDL [Mass ratio] 2.8 {ratio} <5.0 [facility] Sodium [Moles/volume] in Ser um or PlasmaOrdered By: Jes Vasquez on 06-19-2022 Sodium [Moles/Vol] 139 mmol/L 136-145 [facility] THYROID SCREENon 06-19-2022 Free T4 [Mass/Vol] 0.63 ng/dL Normal 0.61-1.12 [facility] Comment on above: Order Comment: Reaso n for Exam Other chest pain;Primary hypertension Performed By: #### C KMB, LIPID, CMP, CK, HSCRP, BNP, THYROID SC, CBC #### [facility] [address] TSH Qn 2.33 m[IU]/L Normal 0.45-5.33 [facility] Comment on above: Order Comment: Reaso n for Exam Other chest pain;Primary hypertension Result Comment: PERF ORMED BY: [facility] [address] [place] [address] PATHOLOGIST DRIER PALOMO WESLEY M.D. Performed By: #### C KMB, LIPID, CMP, CK, HSCRP, BNP, THYROID SC, CBC #### [facility] [address] Thyrotropin [Units/volume] i n Serum or PlasmaOrdered By: Jes Vasquez on 06-19-2022 TSH Qn 2.33 m[IU]/L 0.45-5.33 [facility] Thyroxine (T4) free [Mass/vo lume] in Serum or PlasmaOrdered By: Jes Vasquez on 06-19-2022 Free T4 [Mass/Vol] 0.63 ng/dL 0.61-1.12 [facility] Triglyceride [Mass/volume] i n Serum or PlasmaOrdered By: Jes Vasquez on 06-19-2022 Triglyceride [Mass/Vol] 241 mg/dL 0-149 [facility] Comment on above: TRIG ATP III CLASSIF ICATIONTRIG less than 150 mg/dL NormalTRIG 150-199 mg/dL Borderline highTRIG 200-500 mg/dL High TRIG greater than 500 mg/dL Very highStandard traceable to the Center for Disease Conrtrol and Prevention (CDC) test method. Urea nitrogen [Mass/volume] in Serum or PlasmaOrdered By: Jes Anthony on 06-19-2022 Urea nitrogen [Mass/Vol] 9 mg/dL 7-25 [facility] WBC Auto (Bld) [#/Vol]Ordere d By: Jes Anthony on 06-19-2022 WBC (Bld) [#/Vol] 8.2 10*3/uL 3.8-11.6 [facility] CARDIAC BJORN ADMITon 023 CK [Catalytic activity/Vol] 54 U/L Normal 26-192 [facility] Comment on above: Performed By: #### C JORDAN, CMP #### [facility] [address] [place] [address] [address] Howard Guthrie CK.MB [Mass/Vol] 1.70 ng/mL Normal <=3.60 [facility] Comment on above: Performed By: #### C MICHAELM, CMP #### [facility] [address] [place] [address] [address] Howard Guthrie HSTROP <4.0 Normal 4.0-51.3 [facility] Comment on above: Result Comment: CUT- OFF POINTS HAVE BEEN ESTABLISHED BASED ON THE FOURTH UNIVERSAL DEFINITIONS OF MYOCARDIAL INFARCTION. THE UPPER REFERENCE LIMIT (URL) OF TROPONIN, DEFINED THE 99TH PERCENTILE OF cTnI DISTRIBUTION IN A REFERENCE POPULATION, HAS BEEN CONFIRMED THE DECISION THRESHOLD FOR IA DIAGNOSIS. Performed By: #### C MICHAELM, CMP #### [facility] [address] [place] [address] [address] Howard Guthrie NYA 23 ng/mL Normal 9-82 [facility] Comment on above: Performed By: #### C MICHAELM, CMP #### [facility] [address] [place] [address] [address] Howard Guthrie CBC AUTO DIFFon 06-17-2022 BASO # 0.1 103/ul Normal 0.0-0.1 [facility] Comment on above: Performed By: #### C BC #### [facility] [address] [place] [address] [address] Howard Guthrie Basophils/100 WBC (Bld) 1.0 % Normal 0.2-2.0 [facility] Comment on above: Performed By: #### C BC #### [facility] [address] [place] [address] Dr. Howard Guthrie EO # 0.2 103/ul Normal 0.0-0.7 [facility] Comment on above: Performed By: #### C BC #### [facility] [address] [place] [address] Dr. Howard Guthrie Eosinophils/100 WBC (Bld) 2.9 % Normal 0.9-7.0 [facility] Comment on above: Performed By: #### C BC #### [facility] [address] [place] [address] Dr. Howard Guthrie Erythrocyte distribution width (RBC) [Ratio] 12.7 % Normal 11.0-15.0 [facility] Comment on above: Performed By: #### C BC #### [facility] [address] [place] [address] Dr. Howard Guthrie Hematocrit (Bld) [Volume fraction] 42.5 % Normal 36.0-48.0 [facility] Comment on above: Performed By: #### C BC #### [facility] [address] [place] [address] Dr. Howard Guthrie Hemoglobin (Bld) [Mass/Vol] 14.7 g/dL Normal 12.0-16.0 [facility] Comment on above: Performed By: #### C BC #### [facility] [address] [place] [address] Dr. Hwoard Guthrie IG # 0.02 10e3/ul Normal 0.00-0.03 [facility] Comment on above: Performed By: #### C BC #### [facility] [address] [place] [address] Dr. Howard Guthrie IG % 0.3 % Normal 0.0-0.5 [facility] Comment on above: Performed By: #### C BC #### [facility] [address] [place] [address] Dr. Howard Guthrie LYMPH # 2.1 103/ul Normal 1.2-3.8 [facility] Comment on above: Performed By: #### C BC #### [facility] [address] [place] [address] Dr. Howard Guthrie Lymphocytes/100 WBC (Bld) 28.4 % Normal 20.5-60.0 [facility] Comment on above: Performed By: #### C BC #### [facility] [address] [place] [address] Dr. Howard Guthrie MANUAL DIFF REQ NO Normal [facility] Comment on above: Performed By: #### C BC #### [facility] [address] [place] [address] Dr. Howard Guthrie MCH (RBC) [Entitic mass] 33.1 pg Normal 26.7-34.0 [facility] Comment on above: Performed By: #### C BC #### [facility] [address] [place] [address] Dr. Howard Guthrie MCHC (RBC) [Mass/Vol] 34.6 g/dL Normal 29.9-35.2 [facility] Comment on above: Performed By: #### C BC #### [facility] [address] [place] [address] Dr. Howard Guthrie MCV (RBC) [Entitic vol] 95.7 fL Normal 81.0-99.0 [facility] Comment on above: Performed By: #### C BC #### [facility] [address] [place] [address] Dr. Howard Guthrie MONO # 1.0 103/ul Critically high 0.3-0.8 [facility] Comment on above: Performed By: #### C BC #### [facility] [address] [place] [address] Dr. Howard Guthrie Monocytes/100 WBC (Bld) 13.1 % Critically high 1.7-12.0 [facility] Comment on above: Performed By: #### C BC #### [facility] [address] [place] [address] Dr. Howard Guthrie NEUT # 4.0 103/ul Normal 1.4-6.5 [facility] Comment on above: Performed By: #### C BC #### [facility] [address] [place] [address] [address] Howard Guthrie Neutrophils/100 WBC (Bld) 54.3 % Normal 43.0-75.0 [facility] Comment on above: Performed By: #### C BC #### [facility] [address] [place] [address] [address] Howard Guthrie Platelet mean volume (Bld) [Entitic vol] 10.0 fL Normal 9.5-13.5 [facility] Comment on above: Performed By: #### C BC #### [facility] [address] [place] [address] Dr. Howard Guthrie PLT 343 103/ul Normal 150-450 [facility] Comment on above: Performed By: #### C BC #### [facility] [address] [place] [address] Dr. Howard Guthrie RBC 4.44 106/ul Normal 4.20-5.40 [facility] Comment on above: Performed By: #### C BC #### [facility] [address] [place] [address] Dr. Howard Guthrie WBC 7.4 103/ul Normal 4.0-11.0 [facility] Comment on above: Performed By: #### C BC #### [facility] [address] [place] [address] Dr. Howard Guthrie D-DIMERon 06-17-2022 D-DIMER 0.43 mg/L FEU Normal <=0.59 [facility] Comment on above: Performed By: #### D DIM #### [facility] [address] [place] [address] Dr. Howard Guthrie D-DIMER COMMENTS SEE BELOW Normal [facility] Comment on above: Result Comment: Incr [...] hospitalization. Performed By: #### D DIM #### [facility] [address] [place] [address] Dr. Howard Guthrie ER URINE PROFILEon 3 Bilirubin Ql (U) Negative Normal NEGATIVE [facility] Comment on above: Performed By: #### U MICRO, ERUR #### [facility] [address] [address] [address] Howard Guthrie Clarity (U) CLEAR Normal CLEAR [facility] Comment on above: Performed By: #### U MICRO, ERUR #### [facility] [address] [place] [address] Dr. Howard Guthrie Color (U) LT. YELLOW Normal YELLOW [facility] Comment on above: Performed By: #### U MICRO, ERUR #### [facility] [address] [place] [address] Dr. Howard Guthrie ERUAHD A micrscopic examination will be performed if indicated. Normal [facility] Comment on above: Performed By: #### U MICRO, ERUR #### [facility] [address] [place] [address] Dr. Howard Guthrie Glucose Ql (U) Negative Normal NEGATIVE [facility] Comment on above: Performed By: #### U MICRO, ERUR #### [facility] [address] [place] [address] Dr. Howard Guthrie Hemoglobin Ql (U) SMALL Abnormal NEGATIVE [facility] Comment on above: Performed By: #### U MICRO, ERUR #### [facility] [address] [place] [address] Dr. Howard Guthrie Ketones Ql (U) Negative Normal NEGATIVE [facility] Comment on above: Performed By: #### U MICRO, ERUR #### [facility] [address] [place] [address] Dr. Howard Guthrie LEUKOCYTES Negative Normal NEGATIVE [facility] Comment on above: Performed By: #### U MICRO, ERUR #### [facility] [address] [address] [address] Howard Guthrie Nitrite Ql (U) Negative Normal NEGATIVE [facility] Comment on above: Performed By: #### U MICRO, ERUR #### [facility] [address] [place] [address] Dr. Howard Guthrie pH (U) 7.0 [pH] Normal 5-9 [facility] Comment on above: Performed By: #### U MICRO, ERUR #### [facility] [address] [place] [address] Dr. Howard Guthrie SPEC GRAVITY 1.015 Normal 1.005-<=1.0 25 [facility] Comment on above: Performed By: #### U MICRO, ERUR #### [facility] [address] [place] [address] Dr. Howard Guthrie UA PROTEIN Negative Normal NEGATIVE/ TRACE [facility] Comment on above: Performed By: #### U MICRO, ERUR #### [facility] [address] [place] [address] Dr. Howard Guthrie UR MICRO IND INDICATED Normal [facility] Comment on above: Performed By: #### U MICRO, ERUR #### [facility] [address] [place] [address] Dr. Howard Guthrie Urobilinogen Qn (U) 0.2 {Abdiaziz'U}/dL Normal 0.2 - 1. 0 [facility] Comment on above: Performed By: #### U MICRO, ERUR #### [facility] [address] [place] [address] Dr. Howard Guthrie PROF 14(COMP METB)on 023 Albumin [Mass/Vol] 3.8 g/dL Normal 3.4-5.0 [facility] Comment on above: Performed By: #### C JORDAN CMP #### [facility] [address] [place] [address] Dr. Howard Guthrie Albumin/Globulin [Mass ratio] 1.1 {ratio} Normal [facility] Comment on above: Performed By: #### C JORDAN, CMP #### [facility] [address] [place] [address] Dr. Howard Guthrie ALP [Catalytic activity/Vol] 96 U/L Normal 46-116 [facility] Comment on above: Performed By: #### C JORDAN, CMP #### [facility] [address] [address] [address] Howard Guthrie ALT [Catalytic activity/Vol] 19 U/L Normal 14-59 [facility] Comment on above: Performed By: #### C JORDAN, CMP #### [facility] [address] [address] [address] Howard Guthrie Anion gap [Moles/Vol] 11.2 mmol/L Normal [facility] Comment on above: Performed By: #### C JORDAN, CMP #### [facility] [address] [place] [address] Dr. Howard Guthrie AST [Catalytic activity/Vol] 19 U/L Normal 15-37 [facility] Comment on above: Performed By: #### C JORDAN, CMP #### [facility] [address] [place] [address] Dr. Howard Guthrie Bilirubin [Mass/Vol] 0.5 mg/dL Normal 0.2-1.0 [facility] Comment on above: Performed By: #### C JORDAN, CMP #### [facility] [address] [place] [address] Dr. Howard Guthrie Calcium [Mass/Vol] 8.8 mg/dL Normal 8.5-10.1 [facility] Comment on above: Performed By: #### C JORDAN, CMP #### [facility] [address] [place] [address] Dr. Howard Guthrie Chloride [Moles/Vol] 104 mmol/L Normal 98-107 [facility] Comment on above: Performed By: #### C JORDAN, CMP #### [facility] [address] [place] [address] Dr. Howard Guthrie CO2 [Moles/Vol] 24.1 mmol/L Normal 21.0-32.0 [facility] Comment on above: Performed By: #### Terrie ORTEGA, CMP #### [facility] [address] [address] [address] Howard Guthrie Creatinine [Mass/Vol] 0.73 mg/dL Normal 0.55-1.02 [facility] Comment on above: Performed By: #### C JORDAN, CMP #### [facility] [address] [address] [address] Howard Guthrie EGFR-AF MONEGASQUE >60 Normal >=60 [facility] Comment on above: Performed By: #### C JORDAN, CMP #### [facility] [address] [address] [address] Howard Guthrie EGFR-NON AF MONEGASQUE >60 Normal >=60 [facility] Comment on above: Performed By: #### C JORDAN, CMP #### [facility] [address] [address] [address] Howard Guthrie Globulin (S) [Mass/Vol] 3.6 g/dL Normal [facility] Comment on above: Performed By: #### C JORDAN, CMP #### [facility] [address] [address] [address] Howard Guthrie Glucose [Mass/Vol] 112 mg/dL Critically high 74-106 [facility] Comment on above: Performed By: #### C JORDAN, CMP #### [facility] [address] [address] [address] Howard Gtuhrie Potassium [Moles/Vol] 3.3 mmol/L Critically low 3.5-5.1 [facility] Comment on above: Performed By: #### C JORDAN, CMP #### [facility] [address] [place] [address] Dr. Howard Guthrie Protein [Mass/Vol] 7.4 g/dL Normal 6.4-8.2 [facility] Comment on above: Performed By: #### C JORDAN, CMP #### [facility] [address] [address] [address] Howard Guthrie Sodium [Moles/Vol] 136 mmol/L Normal 136-145 [facility] Comment on above: Performed By: #### C JORDAN, CMP #### [facility] [address] [address] [address] Howard Guthrie Urea nitrogen [Mass/Vol] 6.0 mg/dL Critically low 7.0-18.0 [facility] Comment on above: Performed By: #### C JORDAN, CMP #### [facility] [address] [place] [address] Dr. Howard Guthrie Urea nitrogen/Creatinine [Mass ratio] 8.2 mg/mg Normal [facility] Comment on above: Performed By: #### C JORDAN, CMP #### [facility] [address] [place] [address] Dr. Howard Guthrie TROPONIN, HIGH SENSITIVITYon 06-17-2022 HSTROP 4.6 pg/mL Normal 4.0-51.3 [facility] Comment on above: Result Comment: CUT- OFF POINTS HAVE BEEN ESTABLISHED BASED ON THE FOURTH UNIVERSAL DEFINITIONS OF MYOCARDIAL INFARCTION. THE UPPER REFERENCE LIMIT (URL) OF TROPONIN, DEFINED THE 99TH PERCENTILE OF cTnI DISTRIBUTION IN A REFERENCE POPULATION, HAS BEEN CONFIRMED THE DECISION THRESHOLD FOR IA DIAGNOSIS. Performed By: #### H STROPN #### [facility] [facility] [address] [place] [address] Dr. Howard Guthrie URINE MICROSCOPIC ONLYon BACTERIA TRACE Abnormal NONE SEEN [facility] Comment on above: Performed By: #### U MICRO, ERUR #### [facility] [address] [place] [address] Dr. Howard Guthrie Bacteria identified Cx Nom (U) NOT INDICATED Normal [facility] Comment on above: Performed By: #### U MICRO, ERUR #### [facility] [address] [place] [address] Dr. Howard Guthrie CAST NONE SEEN Normal NONE SEEN [facility] Comment on above: Performed By: #### U MICRO, ERUR #### [facility] [address] [place] [address] Dr. Howard Guthrie Crystals LM Nom (Urine sed) NONE SEEN Normal NONE SEEN [facility] Comment on above: Performed By: #### U MICRO, ERUR #### [facility] [address] [place] [address] Dr. Howard Guthrie Epithelial cells LM Ql (Urine sed) FEW Abnormal NONE SEEN /RARE [facility] Comment on above: Performed By: #### U MICRO, ERUR #### [facility] [address] [address] [address] Howard Guthrie MUCOUS TRACE Abnormal NONE SEEN [facility] Comment on above: Performed By: #### U MICRO, ERUR #### [facility] [address] [address] [address] Howard Guthrie RBC 2-5 Abnormal 0-2 [facility] Comment on above: Performed By: #### U MICRO, ERUR #### [facility] [address] [address] [address] Hoawrd Guthrie WBC NONE SEEN Normal NONE SEEN [facility] Comment on above: Performed By: #### U MICRO, ERUR #### [facility] [address] [address] [address] Howard Guthrie XR CHEST 1 Von [...] NICK MARIE Date: 2022-06-17 12:26 Normal [facility] Tobacco Screening.on 022 Adult depression screening assessment No [facility] 250 DO Work Phone: Tobacco use status [facility] a) Yes [facility] 250 DO Work Phone: Tobacco Screening. Yes [facility] 250 DO Work Phone: Vital Signs Date Time Vital Sign Value Performing Clinician Tonja figueroa 03-22-2023 13:16-0500 Blood Pressure Location Ramone Garcia [facility] 03-22-2023 13:16-0500 Diastolic blood pressure 85 mm[Hg] Ramone Garcia [facility] 03-22-2023 13:16-0500 Heart rate 90 /min Ramone Garcia [facility] 03-22-2023 13:16-0500 SaO2% (BldA) [Mass fraction] 99 % Ramone Garcia [facility] 03-22-2023 13:16-0500 Systolic blood pressure 126 mm[Hg] Ramone Garcia [facility] 12-15-2022 13:20-0400 Body height 165.1 cm Loretta Javier Other [facility] Other 12-15-2022 13:20-0400 Body mass index (BMI) [Ratio] 23.13 kg/m2 Loretta Javier Other [facility] Other 12-15-2022 13:20-0400 Body temperature 98.1 [degF] Loretta Javier Other [facility] Other 12-15-2022 13:20-0400 Body weight 63.05 kg Loretta Javier Other [facility] Other 12-15-2022 13:20-0400 Diastolic blood pressure 76 mm[Hg] Loretta Javier Other [facility] Other 12-15-2022 13:20-0400 Respiratory rate 18 /min Loretta Javier Other [facility] Other 12-15-2022 13:20-0400 SaO2% (BldA) [Mass fraction] 98 % Loretta Javier Other [facility] Other 12-15-2022 13:20-0400 Systolic blood pressure 128 mm[Hg] Loretta Javier Other [facility] Other 10-14-2022 11:10-0400 Body height 165.1 cm Tanya Pangmond Other [facility] Other 10-14-2022 11:10-0400 Body mass index (BMI) [Ratio] 23.39 kg/m2 Tanya Belen Other [facility] Other 10-14-2022 11:10-0400 Body temperature 97.8 [degF] Tanya Belen Other [facility] Other 10-14-2022 11:10-0400 Body weight 63.78 kg Tanya Belen Other [facility] Other 10-14-2022 11:10-0400 Diastolic blood pressure 85 mm[Hg] Tanya Belen Other [facility] Other 10-14-2022 11:10-0400 Respiratory rate 18 /min Tanya Belen Other [facility] Other 10-14-2022 11:10-0400 SaO2% (BldA) [Mass fraction] 99 % Tanya Belen Other [facility] Other 10-14-2022 11:10-0400 Systolic blood pressure 143 mm[Hg] Tanya Belen Other [facility] Other 06-24-2022 09:32-0400 Body height 165.1 cm No PCP None [facility] 250 DO Work Phone: 06-24-2022 09:32-0400 Body mass index (BMI) [Ratio] 24.63 kg/m2 No PCP None [facility] 250 DO Work Phone: 06-24-2022 09:32-0400 Body surface area Derived from formula 1.74 m2 No PCP None [facility] 250 DO Work Phone: 06-24-2022 09:32-0400 Body weight 67.13 kg No PCP None [facility] 250 DO Work Phone: 06-24-2022 09:32-0400 Diastolic blood pressure 82 mm[Hg] No PCP None [facility] 250 DO Work Phone: 06-24-2022 09:32-0400 Heart rate 88 /min No PCP None [facility] 250 DO Work Phone: 06-24-2022 09:32-0400 Systolic blood pressure 124 mm[Hg] No PCP None [facility] 250 DO Work Phone: 06-02-2021 15:09-0500 Diastolic blood pressure 98 mm[Hg] No PCP None [facility] 250 DO Work Phone: 06-02-2021 15:09-0500 Systolic blood pressure 142 mm[Hg] No PCP None [facility] 250 DO Work Phone: 06-02-2021 15:03-0500 Body height 165.1 cm No PCP None [facility] 250 DO Work Phone: 06-02-2021 15:03-0500 Body mass index (BMI) [Ratio] 28.29 kg/m2 No PCP None [facility] 250 DO Work Phone: 06-02-2021 15:03-0500 Body surface area Derived from formula 1.85 m2 No PCP None [facility] 250 DO Work Phone: 06-02-2021 15:03-0500 Body weight 77.11 kg No PCP None [facility] 250 DO Work Phone: 06-02-2021 15:03-0500 Diastolic blood pressure 90 mm[Hg] No PCP None [facility] 250 DO Work Phone: 06-02-2021 15:03-0500 Heart rate 92 /min No PCP None [facility] 250 DO Work Phone: 06-02-2021 15:03-0500 Systolic blood pressure 142 mm[Hg] No PCP None [facility] 250 DO Work Phone: Encounters Encounter Date Encounter Type Care Provider Facility Start: 06-09-2023 End: 06-09-2023 ambulatory Jes Vasquez Facility:[facility] Start: 04-16-2023 End: 04-16-2023 Patient encounter procedure Ramone Garcia [facility] Start: 04-01-2023 End: 04-01-2023 ambulatory PHYSICIAN NO FAMILY Facility:[facility] Start: 03-22-2023 End: 03-23-2023 ambulatory Ramone Garcia Facility:[facility] Start: 03-22-2023 End: 03-22-2023 Patient encounter procedure Ramone Garcia [facility] Start: 12-15-2022 End: 12-15-2022 ambulatory Loretta Javier Other [facility] Other Start: 12-15-2022 Office outpatient visit 25 minutes Loretta Javier [facility] Start: 10-14-2022 End: 10-14-2022 ambulatory Tanya Glover Other [facility] Other Start: 10-14-2022 Office outpatient visit 15 minutes Tanya Belen [facility] Start: 08-14-2022 ambulatory Ms. Jes Vasquez Facility: Start: 08-14-2022 FUV, Provider: Nadia Franks, Status: Pen, Time: 1:00 PM No PCP None [facility] 250 DO Work Phone: Start: 08-06-2022 Rx Renewal No PCP None [facility] 250 DO Work Phone: Start: 06-24-2022 Office outpatient visit 15 minutes No PCP None [facility] 250 DO Work Phone: Start: 06-24-2022 ambulatory Ms. Nadia Lainez Andrew h Facility: Start: 06-19-2022 End: 06-19-2022 ambulatory PHYSICIAN NO FAMILY Facility:[facility] Start: 06-19-2022 End: 06-19-2022 ambulatory PHYSICIAN NO [facility] Work Phone: Start: 06-19-2022 End: 06-19-2022 Departed Referred PHYSICIAN NO [facility] Start: 06-17-2022 End: 06-17-2022 ambulatory RIVER MARTE . Facility: Start: 11-10-2021 ambulatory Ms. Nadia Lainez Andrew h Facility: Start: 10-27-2021 Rx Renewal No PCP None [facility] 250 DO Work Phone: Start: 06-02-2021 Office outpatient visit 25 minutes No PCP None [facility] 250 DO Work Phone: Procedures Date Procedure [...] Nadia Franks, Status: Pen, Time: 1:00 PM [facility] Work Phone: Start: 11-10-2021 FUV, Provider: Nadia Franks, Status: Pen, Time: 3:00 PM [facility], Provider: Nadia Franks, Status: Pen, Time: 3:[address] [facility] 250 DO Work Phone: Start: 06-30-2021 FUV, Provider: Nadia Franks, Status: Pen, Time: 8:00 AM [facility], Provider: Nadia Franks, Status: Pen, Time: 8:00 AM [facility] 250 DO Work Phone: Immunizations Immunization Date Immunization Notes Care Provider Jennifer lacy 03-25-2021 influenza, injectabl e, quadrivalent, preservative free No PCP None [facility] 01-05-2020 influenza, injectabl e, quadrivalent, preservative free No PCP None [facility] 250 DO Work Phone: 01-06-2019 influenza, injectabl e, quadrivalent, preservative free [facility] Payers Date Payer Category Payer Self-pay [id number] 1970 Unknown [id number] 1970 Unknown [id number] 1970 Unknown [id number] 1970 Unknown [id number] 1970 Unknown [id number] 1958 Medicaid [id number] Private Health Insurance [id number] Unknown [id number] Unknown [employer] Unknown [id number] Unknown [id number] Unknown [id number] Unknown [id number] Social History Date Type Detail Facility Tobacco smoking stat [facility] Unknown if ever smoked [facility] Start: 1970 Sex Assigned At Female F [facility] Illicit drug use Illicit drug use [facility] 250 DO Work Phone: Comment on above: 1 pack per daily.; Start: 05-26-2021 [facility] Sex Assigned At [facility] Start: 03-22-2023 Tobacco smoking status Light t obacco smoker (finding) [facility] Tobacco smoking status Never [facility] Medical Equipment Procedure Code Equipment Code Equipment Origin al Text Equipment Identifier Dates Thoracotomy Staple line-reinforcement strip [id number] FDA Start: 03-26-2021 Thoracotomy Surgical adhesive/sealant, human-derived [id number] FDA Start: 03-26-2021 Goals Date Patient Goal Desired Activity /State Functional Status Date Assessment Result Facility 03-22-2023 Functional Status No [facility] Evaluation note 12-15-2022 Note Date & Type [...] understanding and is agreeable to treatment plan [facility] [facility] Other Evaluation note 10-14-2022 Note Date & [...] - Z20.822) Oct, Bronchitis (ICD-10 - J40) [facility] Other Evaluation + Plan note Radiology Note Date & Type Note Facility Evaluation + Plan note Future Appointments Appointment Date:05/13/2023 03:45:00 PM Scheduled Provider:Ramone Garcia MD Location:[facility]Cardiology Clinic Appointment Type:Cardiology Follow Up ([facility]) Future Scheduled TestsNM Myocardial Spect Rest/Stress 1 Day 03/22/23Echo Transthoracic Complete 03/22/23 [facility] Evaluation + Plan note Note Date & Type Note Facility Evaluation + Plan note Future Appointments Appointment Date:05/13/2023 03:45:00 PM Scheduled Provider:Ramone Garcia MD Location:[facility]Cardiology Clinic Appointment Type:Cardiology Follow Up (FT) [facility] Evaluation note Note Date & Type Note Facility Evaluation note [facility]: History general Narrative - Reported Note Date & Type Note Facility History general Narrative - Reported Type Surgical History hysterectomy Surgical History lumbar [facility] Other History of Present illness Narrative Note [...] medication regimen. She denies medication side effects. [facility] 250 DO Work Phone: Hospital course Narrative Note Date & Type Note Facility Hospital course Narrative No data available for this section [facility] Hospital Discharge instructions Note Date & Type Note Facility Hospital Discharge instructions No data available for this section [facility] Progress note Note Date & Type Note Facility Progress note No data available for this section [facility] Assessments No Assessments Information Available Family History No Family History Records Found Relationship Condition Age at Onset Recorded Date/T [...] Complaint * I am doing ok * ISELA CRAIG is being seen for follow-up of a hospitalization for dyspnea. * Patient was recently hospitalized at [facility]. The patient was seen in Cardiology consult with subsequent cardiovascular management by [facility]. Hospitalization records have been reviewed. * Reason for Cardiology Consultation: chest pain (presented with spontaneous PTX) * Consulting Garage Mechanic: Dr. Lopez * Cardiovascular testing: cardiac cath [...] pain: 'more chest pain and fluttering' * ISELA CRAIG is being seen for chest pain and palpitations. * Patient presents to the office ambulatory with steady gait. Last evaluated in clinic by myself May 2021. She has been no-show for subsequent follow-up. * She is seen today at the request of PCP due to recent emergency department evaluation. * Last week she presented to [facility] due to chest pain and dizziness. [...] and fluttering . 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 Due to blood pressure and palpitations will resume prior dose of diltiazem, symptoms have been quiescent with that treatment. She is in agreement to proceed with treatment plan as outlined. Chief Complaint and Reason for Visit Chief Complaint Other chest pain Oth er chest pain;Primary hyperten Advance Directives No Advanced Directives Records Found Advance Directive Response Recorded Date/ Time Advance Directives No January 05, 2019 3:54pm Summary Purpose Additional Source Comments Care Teams (unrecognized sec tion and content) Team Status: Active Member Role Status Dates PHYSICIAN NO FAMILY Primary Care Provider Active Team Status: Inactive Member Role Status Dates PHYSICIAN NO FAMILY Primary Care Provider Active Jes Vasquez , ALAYNA-C Attending Provide r Active Goals (unrecognized section and content) Goals may be documented in a n alternate sectionNo InformationNo Information No data available for this section No data available for this section INFORMATION SOURCE (unrecogn ized section and content) DATE CREATED AUTHOR 06/24/2022 [email or web address] DATE CREATED AUTHOR AUTHOR'S ORGANIZ ATION 07/29/2022 [facility] DATE CREATED AUTHOR AUTHOR'S ORGANIZ ATION 08/16/2022 [facility] DATE CREATED AUTHOR AUTHOR'S ORGANIZ ATION 04/12/2023 [facility] DATE CREATED AUTHOR AUTHOR'S ROHINI ATION 06/18/2023 [facility] REASON FOR VISIT (unrecogniz ed section and [...] BE BASED ON THE PRIMARY CLINICAL RECORDS. [employer] provides no warranty or guarantee of the accuracy or completeness of information in this document.
== END 2023-07-20 09:02 | disposition home or self-care (01) ==
LOC: EC 09:02
PROVIDERS: Visit Provider Podiatrist Foot & Ankle Surgery
DX: M20.12 Hallux valgus (acquired), left foot (principal)
CPT/HCPCS: 73630

== ENCOUNTER 2023-07-28 14:05 | Outpatient (OUT) | payer OTHER, SELFPAY ==
--- NOTE | 2023-07-28 | XR_ITS ---
The [address] [address] Patient Name: MEGHANA KEY MRN: [id number] date: 1970 Sex: F Assigned Patient Location: Current Patient Location: Accession/Order Number: [id number] Exam Date: 07/28/2023 14:10 Report Date: 07/30/2023 04:53 At the request of: TAMI HODGE Procedure: XR foot LT min 3V PROCEDURE: XR foot LT min 3V HISTORY: LEFT FOOT PAIN ; pain to first and second metatarsals. COMPARISON: XR foot left 07/20/2023 FINDINGS: BONES:Mechanical fusion of the first metatarsophalangeal joint via dorsal plate and screws; no appreciable hardware fracture or loosening. No bone fracture or dislocation. No significant degenerative joint disease of the remaining joints. SOFT TISSUES:No visible soft tissue swelling. EFFUSION:None visible. OTHER: Negative. XR/XR foot LT min 3V IMPRESSION: 1. Stable surgical changes without evidence of hardware failure or change in alignment. 2. No appreciable additional findings to account for patient's symptoms. Electronically authenticated by: MASOOD COOK Date: 07/30/2023 04:53
== END 2023-07-28 14:06 | disposition home or self-care (01) ==
LOC: EC 14:05
PROVIDERS: Visit Provider Podiatrist Foot & Ankle Surgery
DX: M20.22 Hallux rigidus, left foot (principal); Z98.890 Other specified postprocedural states
CPT/HCPCS: 73630

== ENCOUNTER 2023-08-02 10:02 | Outpatient (OUT) | payer OTHER, SELFPAY ==
--- NOTE | 2023-08-02 10:06 | XR_ITS ---
The [address] [address] Patient Name: MEGHANA KEY MRN: [id number] date: 1970 Sex: F Assigned Patient Location: Current Patient Location: Accession/Order Number: [id number] Exam Date: 08/02/2023 10:22 Report Date: 08/03/2023 06:37 At the request of: NON-STAFF PHYSICIAN Procedure: XR abdomen 1V EXAMINATION: XR abdomen 1V HISTORY: Hematuria R31.9 COMPARISON: No relevant comparison available. FINDINGS: KIDNEY/URETER - RIGHT: No visible renal or ureteral calcifications. KIDNEY/URETER - LEFT: No visible renal or ureteral calcifications. PELVIS: No visible ureteral calcifications. Any visible calcifications favor phleboliths. BOWEL: No abnormal dilation or deviation. BONES: Mechanical fusion of L4-L5-S1 via bilateral pedicle screws and rods. Posterior decompression of L5. OTHER: Negative. No abnormal gaseous collections. XR/XR abdomen 1V IMPRESSION: 1. No appreciable urinary tract calculi. Electronically authenticated by: MASOOD COOK Date: 08/03/2023 06:37
--- NOTE | 2023-08-02 10:06 | US_ITS ---
The [address] [address] Patient Name: MEGHANA KEY MRN: [id number] date: 1970 Sex: F Assigned Patient Location: US Current Patient Location: US Accession/Order Number: [id number] Exam Date: 08/02/2023 10:07 Report Date: 08/02/2023 12:37 At the request of: NON-STAFF PHYSICIAN Procedure: US renal BI US renal BI, 08/02/2023 10:07 AM EDT INDICATION: Hematuria COMPARISON: There is no appropriate prior study for comparison. FINDINGS: The kidneys measure 9.2 x 5 x 4.1 cm on the right and 10.3 x 5.2 x 5 cm on the left side. No hydronephrosis is noted. Normal vascularity of kidneys. No nephrolithiasis. The visualized portion of the urinary bladder is unremarkable. No ureteral jet is noted. The prevoid volume of urinary bladder is 72 mL. US/US renal BI IMPRESSION: No definite radiological finding to explain patient's symptoms. Electronically authenticated by: GABRIELLE ADKINS Date: 08/02/2023 12:37
== END 2023-08-02 10:03 | disposition home or self-care (01) ==
LOC: US 10:02
DX: R31.9 Hematuria, unspecified (principal)
CPT/HCPCS: 74018; 76775

== ENCOUNTER 2023-08-24 11:00 | Outpatient (OUT) | payer OTHER, SELFPAY ==
--- NOTE | 2023-08-24 | XR_ITS ---
The [address] [address] Patient Name: MEGHANA KEY MRN: [id number] date: 1970 Sex: F Assigned Patient Location: Current Patient Location: Accession/Order Number: [id number] Exam Date: 08/24/2023 11:05 Report Date: 08/25/2023 06:31 At the request of: TAMI HODGE Procedure: XR foot LT min 3V PROCEDURE: XR foot LT min 3V HISTORY: LEFT FOOT PAIN COMPARISON: XR foot left 07/28/2023 FINDINGS: BONES:Mechanical fusion of first metatarsophalangeal joint via dorsal plate and screws; no appreciable hardware fracture or bone fracture. SOFT TISSUES:No visible soft tissue swelling. EFFUSION:None visible. OTHER: Negative. XR/XR foot LT min 3V IMPRESSION: 1. Stable surgical changes without evidence of hardware failure or change in alignment. 2. No acute or suspicious bone abnormality. Electronically authenticated by: MASOOD COOK Date: 08/25/2023 06:31
== END 2023-08-24 11:01 | disposition home or self-care (01) ==
LOC: EC 11:00
PROVIDERS: Visit Provider Podiatrist Foot & Ankle Surgery
DX: M20.22 Hallux rigidus, left foot (principal); Z98.890 Other specified postprocedural states
CPT/HCPCS: 73630

== ENCOUNTER 2023-08-28 09:50 | Outpatient (OUT) | payer OTHER, SELFPAY ==
--- NOTE | 2023-08-28 | CT_ITS ---
[address] [address] Patient Name: MEGHANA KEY MRN: [id number] date: 1970 Sex: F Assigned Patient Location: CT Current Patient Location: Accession/Order Number: [id number] Exam Date: 08/28/2023 10:15 Report Date: 08/31/2023 07:57 At the request of: RACHEL HUNTER Procedure: CT abdomen pelvis wo/w con EXAMINATION: CT abdomen pelvis wo/w con HISTORY: Flank pain , hematuria COMPARISON: CT abdomen pelvis 09/28/2020 TECHNIQUE: Axial, Coronal, and Sagittal images were obtained without and/or with IV contrast as indicated by examination type. Dose reduction techniques were achieved by using automated exposure control and/or adjustment of mA and/or kV according to patient size and/or use of iterative reconstruction technique. FINDINGS: LUNG BASES: No visible pulmonary or pleural disease. LIVER: No enlargement, atrophy, suspicious density, or significant focal lesion. BILIARY: No dilatation or calcification. PANCREAS: No lesion, fluid collection, or abnormal duct dilatation. SPLEEN: No enlargement or focal lesion. ADRENALS: No mass or enlargement. KIDNEYS: Calcium deposition within the renal periods bilaterally with only a few definable tiny stones. No dilated renal pelvis, calyces, ureters. BOWEL/MESENTERY: Scattered small diverticula along the distal colon without acute inflammatory changes. No visible mass, obstruction, or bowel wall thickening. AORTA/VASCULAR: No aneurysm or dissection. RETROPERITONEUM: No mass or adenopathy. LYMPH NODES: No adenopathy. URINARY BLADDER: No visible focal wall thickening, lesion, or calculus. PELVIC ORGANS: No visible mass. Pelvic organs appropriate for patient age. ABDOMINAL WALL: No mass or hernia. BONES: Posterior mechanical fusion L4-5-S1 via bilateral pedicle screws and rods. Posterior decompression of L5. OTHER: Negative. CT/CT abdomen pelvis wo/w con IMPRESSION: 1. Bilateral nephrocalcinosis without appreciable obstructive uropathy, mass, ureteral stones, or bladder abnormality. 2. Mild colonic diverticulosis. Electronically authenticated by: MASOOD COOK Date: 08/31/2023 07:57
--- OUTSIDE RECORDS SUMMARY | 2023-08-28 09:53 | XMS_ITS | CCD ---
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 Nadia Lainez Referring Curtis Vasquez, Ms. Jes Kaur Primary Care Unavailable Rome, Ms. Nadia Lainez Attending Curtis Vasquez, Ms. Jes Kaur Primary Care Unavailable Rome, Ms. Nadia Lainez Attending Tanya Cloby Unavailable Loretta Javier Unavailable JES VASQUEZ Primary Care Physician NO FAMILY, PHYSICIAN Primary Care Unavailable Jes Vasquez Admitting U Jes Belcher Attending U Jes Belcher Admitting U Jes Belcher Primary Care U Jes Belcher Attending U bharti NO FAMILY, PHYSICIAN Primary Care Unavailable Jes Vasquez Admitting U Jes Belcher Attending U Ramone Aceves Attending Unavaila JES Ramesh Referring Ramone Kasper Admitting Ramone Xiao Attending Ramone Xiao Referring Ramone Xiao Admitting Ramone Xiao Consulting Ramone Xiao Consulting Ramone Xiao Consulting JOSUÉ Lucero Admitting JOSUÉ Gaffney Attending JOSUÉ Gaffney Attending UnavailJES Lewis Referring Unavailab le Unavailable Unavailable Unavailable Allergies Allergy Classification Reported Allergen(s) Allergy Type Date of Onset Reaction(s) Facility (16 sources) Codeine; Translations: [codeine] Drug Allergy 09-16-2012 hives, Eruption of skin present [facility] Medications Current Medications Medication Drug Class(es) Dates Sig (Normalized) Sig (Original) aspirin 81 mg delayed release oral tablet (12 sources) Platelet Aggregation Inhibitor, Nonsteroidal Anti-inflammatory Drug [...] Days Not-Taking atorvastatin 40 mg oral tablet (12 sources) HMG-CoA Reductase Inhibitor Start: 03-22-2023 take 1 tablet by mouth once daily atorvastatin 40 mg Tab 40 mg = 1 tab(s), Oral, Daily, # 30 tab(s), Refills(s) 3, Pharmacy: [id number], 164, cm, 03/22/23 13:24:00 EST, Height/Length Dosing, 64.7, kg, 03/22/23 13:24:00 EST, Weight Dosing Start Date: 03/22/23 Status: Ordered Start: 04-04-2021 take 20 mg by mouth once daily in the evening Atorvastatin Active 20 MG PO Every evening April 04, 2021 1:00am busPIRone hydrochloride 15 mg oral tablet (8 sources) Start: 01-17-2020 take 1 mg by [...] Not-Takin g clonazePAM 0.5 mg oral tablet (4 sources) Benzodiazepine Start: 03-22-2023 take 0.25 mg by mouth twice daily Klonopin 0.5 mg Tab 0.25 mg = 0.5 tab(s), Oral, BID, Refills(s) 0 Start Date: 03/22/23 Status: Ordered cyclobenzaprine hydrochloride 5 mg oral tablet (7 sources) Muscle Relaxant Start: 10-19-2019 End: 03-24-2021 [...] 2021 1:00am gabapentin 300 mg oral capsule (10 sources) Anti-epileptic Agent Start: 05-26-2021 take 1 [...] 2019 12:00am October 19, 2019 12:57pm Motrin (7 sources) Nonsteroidal Anti-inflammatory Drug Start: 01-17-2020 take [...] mononitrate 30 mg extended release oral tablet (12 sources) Nitrate Vasodilator Start: 03-22-2023 take 1 tablet by mouth once daily in the morning isosorbide mononitrate 30 mg ER Tab 30 mg = 1 tab(s), Oral, qAM, # 30 tab(s), Refills(s) 3, Pharmacy: [facility], 164, cm, 03/22/23 13:24:00 EST, Height/Length Dosing, 64.7, kg, 03/22/23 13:24:00 EST, Weight Dosing Start Date: 03/22/23 Status: Ordered Start: 04-04-2021 take 60 mg by mouth once daily Isosorbide Mononitrate Active 60 MG PO Daily April 04, 2021 1:00am lamoTRIgine 25 mg chewable tablet (7 sources) Mood Stabilizer, Anti-epileptic Agent Start: 01-17-2020 [...] not exceed 3 doses per episode olanzapine (7 sources) Atypical Antipsychotic Start: 01-17-2020 olanzapine Refills(s) 0 Start Date: 01/17/20 Status: Ordered Start: 01-09-2019 End: 03-24-2021 take 10 mg by mouth once daily at bedtime Olanzapine Discontinued 10 MG PO Daily at bedtime January 09, 2019 12:00am March 24, 2021 4:09pm OLANZapine Not-T aking oxybutynin chloride 5 mg oral tablet (4 sources) Cholinergic Muscarinic Antagonist Start: 02-08-2020 take 2 tablets by mouth at bedtime as needed oxybutynin 5 mg Tab 10 mg = 2 tab(s), Oral, Bedtime, PRN Other (see comment), Nocturia, # 60 tab(s), Refills(s) 3, Pharmacy: [facility], 165, cm, 01/17/20 11:18:00 EDT, Height/Length Dosing, 88, kg, 01/17/20 11:18:00 EDT, Weight Dosing Start Date: 02/08/20 Status: Ordered pantoprazole 40 mg extended release oral tablet (4 sources) Proton Pump Inhibitor Start: 01-17-2020 take 1 mg by mouth once daily pantoprazole 40 mg Oral EC Tab mg tab(s), Oral, Daily, Refills(s) 0 Start Date: 01/17/20 Status: Ordered Prazosin (5 sources) alpha-Adrenergic Malinda Start: 01-17-2020 prazosin Oral, TID, Refills(s) 0 Start Date: 01/17/20 Status: Ordered Start: 10-19-2019 End: 03-24-2021 Prazosin Discontinued 1 MG P O As Directed October 19, 2019 12:00am March 24, 2021 4:09pm sertraline 100 mg oral tablet (4 sources) Serotonin Reuptake Inhibitor Start: 03-22-2023 take 1 tablet by mouth once daily Zoloft 100 mg Tab 100 mg = 1 tab(s), Oral, Daily, # 30 tab(s), Refills(s) 0 Start Date: 03/22/23 Status: Ordered Vitamin D3 50,000 intl units oral capsule (2 sources) Start: 08-10-2023 Vitamin D3 50, 000 intl units oral capsule 1,250 mcg = 1 cap(s) Start Date: 08/10/23 Status: Ordered Completed/Discontinued Medications Medication Drug Class(es) Dates Sig (Normalized) Sig (Original) [id number] 200 actuat albuterol 0.09 mg/actuat metered dose [...] Active Start: 06-02-20[address] [facility] once daily dilTIAZem HCl ER Coated [...] DIRECTED. Quantity: 30 Refills: 1 Ordered: 02-Jun-2021 Migel Peter APRN-GOLD FRAME ASSEMBLERNadia Start : 02-Jun-2021 Active Start: 01-09-2019 End: [...] Date Documented Da te Episodic/Chronic Abdominal pain (7 sources) Abdominal pain; Translations: [Unspecified abdominal pain] Onset: 08-10-2023 01-17-2020 Episodic Adjustment disorders (1 source) Complicated grieving; Translations: [Adjustment disorder with depressed mood] 01-06-2019 Chronic Adjustment disorders (1 source) Complicated grieving; Translations: [Complicated bereavement] Episodic Anxiety disorders (5 sources) Anxiety; Translations: [Anxiety disorder, unspecified] Onset: 06-09-2023 03-18-2023 Chronic Calculus of urinary tract (3 sources) History of calculus of kidney; Translations: [Personal history of urinary calculi] Onset: 08-10-2023 Episodic Cardiac dysrhythmias (5 sources) Palpitations; Translations: [Palpitations] [...] Episodic Coronary atherosclerosis and other heart disease (11 sources) Coronary atherosclerosis; Translations: [Coronary atherosclerosis of jena coronary artery] 04-03-2021 Chronic Disorders of lipid metabolism (5 sources) Mixed hyperlipidemia; Translations: [Mixed hyperlipidemia] Chronic Essential hypertension (10 sources) Benign hypertension; Translations: [Benign essential hypertension] Onset: 06-19-2022 03-18-2023 Chronic Genitourinary symptoms and ill-defined conditions (9 sources) Incontinence; Translations: [Urge incontinence of urine] Onset: 08-10-2023 01-17-2020 Chronic Genitourinary symptoms and ill-defined conditions (20 sources) Blood in urine; Translations: [Microscopic hematuria] Onset: 04-01-2023 01-17-2020 Episodic Mood disorders (8 sources) Major depressive disorder; Translations: [Major depressive disorder, single episode, unspecified] Onset: 06-09-2023 01-06-2019 Chronic Nutritional deficiencies (1 source) Vitamin D deficiency, unspecified; Translations: [Vitamin D deficiency, unspecified] Onset: 06-09-2023 Chronic Nutritional deficiencies (1 source) Iron deficiency; Translations: [Iron deficiency] Onset: 06-09-2023 Episodic Other aftercare (1 source) Other care home (current) drug therapy; Translations: [Other care home (current) drug therapy] Onset: 06-09-2023 Episodic Other bone disease and musculoskeletal deformities (3 sources) Costal chondritis; Translations: [Tietze's disease] Episodic Other circulatory disease (5 sources) Cardiac function test normal; Translations: [Normal cardiac ejection fraction] Episodic Other diseases of kidney and ureters (1 source) Acquired renal cyst without neoplastic change; Translations: [Cyst of kidney, acquired] Onset: 08-10-2023 Episodic Other diseases of kidney and ureters (2 sources) Cyst of kidney 08-10-2023 Episodic Other gastrointestinal disorders (2 sources) Diarrhea; [...] Spondylosis; intervertebral disc disorders; other back problems (4 sources) Low back pain 02-08-2020 Episodic Substance-related disorders (17 sources) Polysubstance abuse ; Translations: [Smoker] Onset: 06-09-2023 01-06-2019 Chronic Comment on above: 1 pack per daily.; Added secondary to d ocumentation in Social History. Suicide and intentional self-inflicted injury (2 sources) Suicidal thoughts; Translations: [Suicidal ideations] 01-05-2019 Episodic Unclassified (4 sources) Finding of sensation of bladder 02-08-2020 Urinary tract infections (4 sources) Chronic interstitial cystitis 02-08-2020 Chronic Past or Other Problems Problem Classification Problem Date Documented Date Episodic/Chronic Chronic obstructive pulmonary disease and bronchiectasis (4 sources) Chronic obstructive pulmonary disease and bronchiectasis 03-18-2023 Nonspecific chest pain (6 sources) Chest wall pain; Translations: [Other chest pain] Onset: 06-17-2022 05-26-2021 Episodic Unclassified (1 source) Contact with and (suspected) exposure to covid-19 Z20.822 Unclassified (4 sources) Bipolar (qualifier value) 03-18-2023 Results Test Name Value Interpretation Reference Range Facility [facility] 08-17-2023 Lab Reports [id number]#1.0 0TIFF [facility] Urine Cytology ([facility])on 0 08-17-2023 Microscopic exam Cytology (U) [Interp] Diagnosis Info Invalid Interpretation Code [facility] Comment on above: Result Comment: A:Ur ine,Urine:Voided Interpretation - MicroScopic Description - Adequacy - Gross Description Site ID:A color Light Yellow fixative Alcohol Specimen designated Urine received in alcohol preservative and labeled with the patient?s name, consists of 60ml clear light yellow fluid. Electronically signed by : on: 08/17/2023 14:12:20 Performed By: #### 1 [id number] ####[facility] [address] [place] [address] [facility] 08-11-2023 Lab Reports [id number]#1.00 TIFF [facility] Physician Referralon 024 Physician Referral [id number]#1.0 0TIFF [facility] RAD - MISCon 08-11-2023 RAD - MISC [id number] 03 [id number]#1.0 0TIFF [facility] RAD - MISC [id number] 50 [id number] 0TIFF [facility] RAD - Ultrasound Reporton RAD - Ultrasound Report [id number] 0TIFF [facility] RAD - Ultrasound Report [id number]#1.0 0TIFF [facility] Screenson 08-11-2023 Screens [id number]#1.0 0TIFF [facility] Ambulatory Visit Summaryon 0 08-10-2023 Ambulatory Visit Summary MEGHANA CRAIG :1970 Visit Date:08/10/2023 Ambulatory Visit Instructions Your Diagnosis Microscopic hematuria Flank pain History of kidney stones Renal cyst Smoker Mixed incontinence Tests Performed CT Urogram -- Results Pending -- Please visit your patient portal for your results or contact your primary care physician. Your Care Team Attending Physician - JES HUNTER PA-C Primary Care Physician - JES VASQUEZ CNP Referring Physician - JES VASQUEZ CNP This Is Your Medications List Contact prescribing physician if questions or concerns aspirin (aspirin 81 mg Oral EC Tab) atorvastatin (atorvastatin 40 mg Tab) busPIRone (busPIRone 15 mg Tab) cholecalciferol (Vitamin D3 50,000 intl units oral capsule) clonazepam (Klonopin 0.5 mg Tab) cyclobenzaprine (cyclobenzaprine 5 mg Tab) gabapentin (gabapentin 100 mg Cap) ibuprofen (Motrin IB) isosorbide mononitrate (isosorbide mononitrate 30 mg ER Tab) lamotrigine (lamotrigine 25 mg oral tablet, dispersible) olanzapine oxybutynin (oxybutynin 5 mg Tab) pantoprazole (pantoprazole 40 mg Oral EC Tab) prazosin sertraline (Zoloft 100 mg Tab) Procedures Performed Cardiac catheter, Colonoscopy, Hysterectomy, Procedure on back. Discharge Vitals Temperature (Temporal Artery) 36.8 ?C Heart Rate (Peripheral) 80 Respiratory Rate 19 Blood Pressure 136/78 Height 164 cm Height 65 in Weight 66 kg Weight 145.2 lb BMI 24.54 What to do next You Need to Schedule the Following Appointments Follow Up with JES HUNTER PA-C, URL When: Where: [address] [facility] [place] [address] [id number] Medications What How Much When Instructions Unchanged aspirin (aspirin 81 mg Oral EC Tab) 1 Tablets By Mouth Every day Contact prescribing physician if questions or concerns Unchanged atorvastatin (atorvastatin 40 mg Tab) 1 Tablets By Mouth Every day Contact prescribing physician if questions or concerns Unchanged busPIRone (busPIRone 15 mg Tab) By Mouth 2 times a day Contact prescribing physician if questions or concerns Unchanged cholecalciferol (Vitamin D3 50,000 intl units oral capsule) 1 Capsules Contact prescribing physician if questions or concerns Unchanged clonazepam (Klonopin 0.5 mg Tab) 0.5 Tablets By Mouth 2 times a day Contact prescribing physician if questions or concerns Unchanged cyclobenzaprine (cyclobenzaprine 5 mg Tab) By Mouth 3 times a day Contact prescribing physician if questions or concerns Unchanged gabapentin (gabapentin 100 mg Cap) By Mouth 3 times a day Contact prescribing physician if questions or concerns Unchanged ibuprofen (Motrin IB) By Mouth Every 6 hours Contact prescribing physician if questions or concerns Unchanged isosorbide mononitrate (isosorbide mononitrate 30 mg ER Tab) 1 Tablets By Mouth Once a day (in the morning) Contact prescribing physician if questions or concerns Unchanged lamotrigine (lamotrigine 25 mg oral tablet, dispersible) By Mouth 2 times a day Contact prescribing physician if questions or concerns Unchanged olanzapine Contact prescribing physician if questions or concerns Unchanged oxybutynin (oxybutynin 5 mg Tab) 2 Tablets By Mouth At bedtime as needed for Other (see comment) Nocturia Contact prescribing physician if questions or concerns Unchanged pantoprazole (pantoprazole 40 mg Oral EC Tab) By Mouth Every day Contact prescribing physician if questions or concerns Unchanged prazosin By Mouth 3 times a day Contact prescribing physician if questions or concerns Unchanged sertraline (Zoloft 100 mg Tab) 1 Tablets By Mouth Every day Contact prescribing physician if questions or concerns Allergies codeine (Rash present) Problems Ongoing - Any problem that you are currently receiving treatment for. Bipolar depression Feeling of incomplete bladder emptying Flank pain Hematuria History of kidney stones Interstitial cystitis Lower back pain Microscopic hematuria Mixed incontinence Nocturia Poor urinary stream Renal cyst Smoker Urge incontinence Urgency of urination Historical - Any problem that you are no longer receiving treatment for. Anxiety Bipolar COPD (Chronic Obstructive Pulmonary Disease) Assessment Test scale Coronary spasm Hypertension Substance abuse Patient Survey You may receive a survey via text or e-mail asking about your office visit. Please share your experience with us by completing your survey. We appreciate your feedback and thank you for choosing us for your care. Education Materials Steps to Quit Smoking Smoking tobacco is the leading cause of preventable . It can affect almost every organ in the body. Smoking puts you and those around you at risk for developing many serious chronic diseases. Quitting smoking can be very challenging. Do not get discouraged if you are not successful the first time. Some people need to make many (more content not included)... [facility] Patient Educationon 08-10-19 24 Patient Education Pulmonary Medicine Steps to Quit Smoking Smoking tobacco is the leading cause of preventable . It can affect almost every organ in the body. Smoking puts you and those around you at risk for developing many serious chronic diseases. Quitting smoking can be very challenging. Do not get discouraged if you are not successful the first time. Some people need to make many attempts to quit before they achieve long-term success. Do your best to stick to your quit plan, and talk with your health care provider if you have any questions or concerns. How do I get ready to quit? When you decide to quit smoking, create a plan to help you succeed. Before you quit: ? Pick a date to quit. Set a date within the next 2 weeks to give you time to prepare. ? Write down the reasons why you are quitting. Keep this list in places where you will see it often. ? Tell your family, friends, and co-workers that you are quitting. Support from people you are close to can make quitting easier. ? Talk with your health care provider about your options for quitting smoking. ? Find out what treatment options are covered by your health insurance. ? Identify people, places, things, and activities that make you want to smoke (triggers). Avoid them. What first steps can I take to quit smoking? ? Throw away all cigarettes at home, at work, and in your car. ? Throw away smoking accessories, such as ashtrays and lighters. ? Clean your car. Make sure to empty the ashtray. ? Clean your home, including curtains and carpets. What strategies can I use to quit smoking? Talk with your health care provider about combining strategies, such as taking medicines while you are also receiving in-person counseling. Using these two strategies together makes you more likely to succeed in quitting than if you used either strategy on its own. If you are or , talk with your health care provider about finding counseling or other support strategies to quit smoking. Do not take medicine to help you quit smoking unless your health care provider tells you to. Quit right away ? Quit smoking completely, instead of gradually reducing how much you smoke over a period of time. Stopping smoking right away may be more successful than gradually quitting. ? Attend in-person counseling to help you build problem-solving skills. You are more likely to succeed in quitting if you attend counseling sessions regularly. Even short sessions of 10 minutes can be effective. Take medicine You may take medicines to help you quit smoking. Some medicines require a prescription. You can also purchase muhq-lam-[id number] medicines. Medicines may have nicotine in them to replace the nicotine in cigarettes. Medicines may: ? Help to stop cravings. ? Help to relieve withdrawal symptoms. Your health care provider may recommend: ? Nicotine patches, gum, or lozenges. ? Nicotine inhalers or sprays. ? Non-nicotine medicine that you take by mouth. Find resources Find resources and support systems that can help you quit smoking and remain smoke-free after you quit. These resources are most helpful when you use them often. They include: ? Online chats with a counselor. ? Telephone quitlines. ? Printed self-help materials. ? Support groups or group counseling. ? Text messaging programs. ? Mobile phone apps or applications. Use apps that can help you stick to your quit plan by providing reminders, tips, and encouragement. Examples of free services include Quit Guide from the CDC and smokefree.gov What can I do to make it easier to quit? ? Reach out to your family and friends for support and encouragement. Call telephone quitlines, such as 6-212-ACCF-NOW, reach out to support groups, or work with a counselor for support. ? Ask people who smoke to avoid smoking around you. ? Avoid places that trigger you to smoke, such as bars, parties, or smoke-break areas at work. ? Spend time with people who do not smoke. ? Lessen the stress in your life. Stress can be a smoking trigger for some people. To lessen stress, try: ? Exercising regularly. ? Doing deep-breathing exercises. ? Doing yoga. ? Meditating. What benefits will I see if I quit smoking? Over time, you should start to see positive results, such as: ? Improved sense of smell and taste. ? Decreased coughing and sore throat. ? Slower heart rate. ? Lower blood pressure. ? Clearer and healthier skin. ? The ability to breathe more easily. ? Fewer sick days. Summary ? Quitting smoking can be very challenging. Do not get discouraged if you are not successful the first time. Some people need to make many attempts to quit before they achieve long-term success. ? When you decide to quit smoking, create a plan to help you succeed. ? Quit smoking right away, not slowly over a period of time. ? Find resources and support systems that can help you quit smoki (more content not included)... Normal [facility] Urine Cytology ([facility])on 08-10-2023 Method of Extraction Voided [facility] Comment on above: Performed By: #### 1 [id number] ####[facility] [address] [place] [address] Number of Jars 1 Invalid Interpretation Code [facility] Comment on above: Performed By: #### 1 [id number] ####[facility] [address] [place] [address] UC Specimen Urine Normal [facility] Comment on above: Performed By: #### 1 [id number] ####[facility] [address] [place] [address] Type of Service Technical Only Normal [facility] Comment on above: Performed By: #### 1 [id number] ####[facility] [address] [place] [address] Complete Blood Count Auto Di ffon 06-09-2023 Basophils (Bld) [#/Vol] 0.0 10*3/uL Normal 0.0-0.2 [facility] Comment on above: Order Comment: Reaso n for Exam Other chest pain;Primary hypertension Result Comment: PERF ORMED BY: [place] [address] PATHOLOGIST LANDSCAPE SUPERVISOR PALOMO WESLEY M.D. Performed By: #### C KMB, LIPID, CMP, CK, HSCRP, BNP, THYROID SC, CBC #### [facility] [address] [place] [address] Basophils/100 WBC (Bld) 0.3 % Normal . [facility] Comment on above: Order Comment: Reaso n for Exam Other chest pain;Primary hypertension Performed By: #### C KMB, LIPID, CMP, CK, HSCRP, BNP, THYROID SC, CBC #### [facility] [address] [place] [address] [place] Eosinophils (Bld) [#/Vol] 0.1 10*3/uL Normal 0.0-0.45 [facility] Comment on above: Order Comment: Reaso n for Exam Other chest pain;Primary hypertension Performed By: #### C KMB, LIPID, CMP, CK, HSCRP, BNP, THYROID SC, CBC #### [facility] [address] [place] [address] Eosinophils/100 WBC (Bld) 1.7 % Normal . [facility] Comment on above: Order Comment: Reaso n for Exam Other chest pain;Primary hypertension Performed By: #### C KMB, LIPID, CMP, CK, HSCRP, BNP, THYROID SC, CBC #### [address] Erythrocyte distribution width (RBC) [Ratio] 13.2 % Normal 11.9-15.3 [facility] Comment on above: Order Comment: Reaso n for Exam Other chest pain;Primary hypertension Performed By: #### C KMB, LIPID, CMP, CK, HSCRP, BNP, THYROID SC, CBC #### [address] Hematocrit (Bld) [Volume fraction] 41.9 % Normal 34.0-46.4 [facility] Comment on above: Order Comment: Reaso n for Exam Other chest pain;Primary hypertension Performed By: #### C KMB, LIPID, CMP, CK, HSCRP, BNP, THYROID SC, CBC #### [address] Hemoglobin (Bld) [Mass/Vol] 14.0 g/dL Normal 11.8-15.4 [facility] Comment on above: Order Comment: Reaso n for Exam Other chest pain;Primary hypertension Performed By: #### C KMB, LIPID, CMP, CK, HSCRP, BNP, THYROID SC, CBC #### [address] Lymphocytes (Bld) [#/Vol] 2.2 10*3/uL Normal 1.00-4.8 [facility] Comment on above: Order Comment: Reaso n for Exam Other chest pain;Primary hypertension Performed By: #### C KMB, LIPID, CMP, CK, HSCRP, BNP, THYROID SC, CBC #### [address] Lymphocytes/100 WBC (Bld) 30.2 % Normal . [facility] Comment on above: Order Comment: Reaso n for Exam Other chest pain;Primary hypertension Performed By: #### C KMB, LIPID, CMP, CK, HSCRP, BNP, THYROID SC, CBC #### [address] MCH (RBC) [Entitic mass] 32.8 pg Normal 24.7-34.3 [facility] Comment on above: Order Comment: Reaso n for Exam Other chest pain;Primary hypertension Performed By: #### C KMB, LIPID, CMP, CK, HSCRP, BNP, THYROID SC, CBC #### [address] MCV (RBC) [Entitic vol] 98.5 fL Normal 80-100 [facility] Comment on above: Order Comment: Reaso n for Exam Other chest pain;Primary hypertension Performed By: #### C KMB, LIPID, CMP, CK, HSCRP, BNP, THYROID SC, CBC #### [address] Mean Corpuscular HGB Conc 33.3 g/dL Normal 32.0-35.0 [facility] Comment on above: Order Comment: Reaso n for Exam Other chest pain;Primary hypertension Performed By: #### C KMB, LIPID, CMP, CK, HSCRP, BNP, THYROID SC, CBC #### [address] Monocytes (Bld) [#/Vol] 0.8 10*3/uL Normal 0.0-0.8 [facility] Comment on above: Order Comment: Reaso n for Exam Other chest pain;Primary hypertension Performed By: #### C KMB, LIPID, CMP, CK, HSCRP, BNP, THYROID SC, CBC #### [address] Monocytes/100 WBC (Bld) 10.9 % Normal . [facility] Comment on above: Order Comment: Reaso n for Exam Other chest pain;Primary hypertension Performed By: #### C KMB, LIPID, CMP, CK, HSCRP, BNP, THYROID SC, CBC #### [address] Neutrophils (Bld) [#/Vol] 4.1 10*3/uL Normal 1.8-7.7 [facility] Comment on above: Order Comment: Reaso n for Exam Other chest pain;Primary hypertension Performed By: #### C KMB, LIPID, CMP, CK, HSCRP, BNP, THYROID SC, CBC #### [facility] [address] Neutrophils/100 WBC (Bld) 56.9 % Normal . [facility] Comment on above: Order Comment: Reaso n for Exam Other chest pain;Primary hypertension Performed By: #### C KMB, LIPID, CMP, CK, HSCRP, BNP, THYROID SC, CBC #### [facility] [address] NRBC% 0.1 /100{WBC} Normal 0-0.5 [facility] Comment on above: Order Comment: Reaso n for Exam Other chest pain;Primary hypertension Performed By: #### C KMB, LIPID, CMP, CK, HSCRP, BNP, THYROID SC, CBC #### [address] Platelet mean volume (Bld) [Entitic vol] 9.0 fL Normal 6.3-10.7 [facility] Comment on above: Order Comment: Reaso n for Exam Other chest pain;Primary hypertension Performed By: #### C KMB, LIPID, CMP, CK, HSCRP, BNP, THYROID SC, CBC #### [address] Platelets (Bld) [#/Vol] 314 10*3/uL Normal 150-450 [facility] Comment on above: Order Comment: Reaso n for Exam Other chest pain;Primary hypertension Performed By: #### C KMB, LIPID, CMP, CK, HSCRP, BNP, THYROID SC, CBC #### [address] RBC (Bld) [#/Vol] 4.26 10*6/uL Normal 3.60-5.00 [facility] Comment on above: Order Comment: Reaso n for Exam Other chest pain;Primary hypertension Performed By: #### C KMB, LIPID, CMP, CK, HSCRP, BNP, THYROID SC, CBC #### [place] [address] [place] WBC (Bld) [#/Vol] 7.2 10*3/uL Normal 3.8-11.6 [facility] Comment on above: Order Comment: Reaso n for Exam Other chest pain;Primary hypertension Performed By: #### C KMB, LIPID, CMP, CK, HSCRP, BNP, THYROID SC, CBC #### [facility] [address] Comprehensive Metabolic Pane bryon 06-09-2023 Albumin [Mass/Vol] 4.2 g/dL Normal 3.5-5.7 [facility] Comment on above: Order Comment: Reaso n for Exam Other chest pain;Primary hypertension Performed By: #### C KMB, LIPID, CMP, CK, HSCRP, BNP, THYROID SC, CBC #### [address] Albumin/Globulin [Mass ratio] 1.4 {ratio} Normal [facility] Comment on above: Order Comment: Reaso n for Exam Other chest pain;Primary hypertension Performed By: #### C KMB, LIPID, CMP, CK, HSCRP, BNP, THYROID SC, CBC #### [facility] [address] ALP [Catalytic activity/Vol] 87 U/L Normal 34-104 [facility] Comment on above: Order Comment: Reaso n for Exam Other chest pain;Primary hypertension Performed By: #### C KMB, LIPID, CMP, CK, HSCRP, BNP, THYROID SC, CBC #### [facility] [address] [place] [address] ALT [Catalytic activity/Vol] 10 U/L Normal 7-52 [facility] Comment on above: Order Comment: Reaso n for Exam Other chest pain;Primary hypertension Performed By: #### C KMB, LIPID, CMP, CK, HSCRP, BNP, THYROID SC, CBC #### [facility] [address] Anion gap [Moles/Vol] 12.9 mmol/L Normal 6.0-15.0 [facility] Comment on above: Order Comment: Reaso n for Exam Other chest pain;Primary hypertension Performed By: #### C KMB, LIPID, CMP, CK, HSCRP, BNP, THYROID SC, CBC #### [facility] [address] AST [Catalytic activity/Vol] 12 U/L Low 13-39 [facility] Comment on above: Order Comment: Reaso n for Exam Other chest pain;Primary hypertension Performed By: #### C KMB, LIPID, CMP, CK, HSCRP, BNP, THYROID SC, CBC #### [facility] [address] Bilirubin [Mass/Vol] 0.2 mg/dL Low 0.3-1.0 [facility] Comment on above: Order Comment: Reaso n for Exam Other chest pain;Primary hypertension Performed By: #### C KMB, LIPID, CMP, CK, HSCRP, BNP, THYROID SC, CBC #### [facility] [address] Calcium [Mass/Vol] 9.5 mg/dL Normal 8.6-10.3 [facility] Comment on above: Order Comment: Reaso n for Exam Other chest pain;Primary hypertension Performed By: #### C KMB, LIPID, CMP, CK, HSCRP, BNP, THYROID SC, CBC #### [facility] [address] Chloride [Moles/Vol] 105 mmol/L Normal 98-107 [facility] Comment on above: Order Comment: Reaso n for Exam Other chest pain;Primary hypertension Performed By: #### C KMB, LIPID, CMP, CK, HSCRP, BNP, THYROID SC, CBC #### [facility] [address] CO2 [Moles/Vol] 25.0 mmol/L Normal 21.0-31.0 [facility] Comment on above: Order Comment: Reaso n for Exam Other chest pain;Primary hypertension Performed By: #### C KMB, LIPID, CMP, CK, HSCRP, BNP, THYROID SC, CBC #### [facility] [address] Creatinine [Mass/Vol] 0.63 mg/dL Normal 0.60-1.20 [facility] Comment on above: Order Comment: Reaso n for Exam Other chest pain;Primary hypertension Performed By: #### C KMB, LIPID, CMP, CK, HSCRP, BNP, THYROID SC, CBC #### [facility] [address] GFR/1.73 sq M.predicted MDRD (S/P/Bld) [Vol rate/Area] mL/min/{1.73_m2} [facility] Comment on above: Order Comment: Reaso n for Exam Other chest pain;Primary hypertension Performed By: #### C KMB, LIPID, CMP, CK, HSCRP, BNP, THYROID SC, CBC #### [facility] [address] Globulin (S) [Mass/Vol] 2.9 g/dL [facility] Comment on above: Order Comment: Reaso n for Exam Other chest pain;Primary hypertension Performed By: #### C KMB, LIPID, CMP, CK, HSCRP, BNP, THYROID SC, CBC #### [facility] [address] Glucose [Mass/Vol] 90 mg/dL Normal 70-100 [facility] Comment on above: Order Comment: Reaso n for Exam Other chest pain;Primary hypertension Result Comment: [place] Glucose Reference Range is dependent on time and content of last meal. Glucose of more than 200 mg/dL in a nonstressed, ambulatory subject supports the diagnosis of Diabetes Mellitus. ADA recommended reference range Performed By: #### C KMB, LIPID, CMP, CK, HSCRP, BNP, THYROID SC, CBC #### [facility] [address] Potassium [Moles/Vol] 3.9 mmol/L Normal 3.5-5.1 [facility] Comment on above: Order Comment: Reaso n for Exam Other chest pain;Primary hypertension Performed By: #### C KMB, LIPID, CMP, CK, HSCRP, BNP, THYROID SC, CBC #### [facility] [address] Protein [Mass/Vol] 7.1 g/dL Normal 6.4-8.9 [facility] Comment on above: Order Comment: Reaso n for Exam Other chest pain;Primary hypertension Performed By: #### C KMB, LIPID, CMP, CK, HSCRP, BNP, THYROID SC, CBC #### [facility] [address] [place] [address] Sodium [Moles/Vol] 139 mmol/L Normal 136-145 [facility] Comment on above: Order Comment: Reaso n for Exam Other chest pain;Primary hypertension Performed By: #### C KMB, LIPID, CMP, CK, HSCRP, BNP, THYROID SC, CBC #### [facility] [address] [place] [address] Urea nitrogen [Mass/Vol] 14 mg/dL Normal 7-25 [facility] Comment on above: Order Comment: Reaso n for Exam Other chest pain;Primary hypertension Performed By: #### C KMB, LIPID, CMP, CK, HSCRP, BNP, THYROID SC, CBC #### [facility] [address] [place] [address] Ferritinon 06-09-2023 Ferritin [Mass/Vol] 78.9 ng/mL Normal 11.0-306.8 [facility] Comment on above: Order Comment: Reaso n for Exam Other chest pain;Primary hypertension Performed By: #### C KMB, LIPID, CMP, CK, HSCRP, BNP, THYROID SC, CBC #### [facility] [address] [place] [address] HIV 1/O/2 Antigen/Antibodyon 06-09-2023 HIV Screen 4th Generation Non-Reactive Normal Non Reactive [facility] Comment on above: Order Comment: Reaso n for Exam Other chest pain;Primary hypertension Result Comment: HIV Negative HIV-1/HIV-2 antibodies and HIV-1 p24 antigen were NOT detected. There is no laboratory evidence of HIV infection. Performed at: [facility] [id number] Proofreader: Kurtis Gallegos PhD, Phone: [phone] PERFORMED BY: [place] [address] PATHOLOGIST LANDSCAPE SUPERVISOR PALOMO WESLEY M.D. Performed By: #### C KMB, LIPID, CMP, CK, HSCRP, BNP, THYROID SC, CBC #### [facility] [address] Iron and TIBC Profileon % Iron Saturation 22.1 % Normal 20-50 [facility] Comment on above: Order Comment: Reaso n for Exam Other chest pain;Primary hypertension Performed By: #### C KMB, LIPID, CMP, CK, HSCRP, BNP, THYROID SC, CBC #### [facility] [address] Iron [Mass/Vol] 93 ug/dL Normal 50-212 [facility] Comment on above: Order Comment: Reaso n for Exam Other chest pain;Primary hypertension Performed By: #### C KMB, LIPID, CMP, CK, HSCRP, BNP, THYROID SC, CBC #### [facility] [address] Total Iron Binding Capacity 420 ug/dL Normal 255-450 [facility] Comment on above: Order Comment: Reaso n for Exam Other chest pain;Primary hypertension Performed By: #### C KMB, LIPID, CMP, CK, HSCRP, BNP, THYROID SC, CBC #### [facility] [address] Transferrin [Mass/Vol] 300 mg/dL Normal 203-362 [facility] Comment on above: Order Comment: Reaso n for Exam Other chest pain;Primary hypertension Performed By: #### C KMB, LIPID, CMP, CK, HSCRP, BNP, THYROID SC, CBC #### [facility] [address] [place] [id number] [facility] LDL Cholesterol Measuredon 0 06-09-2023 LDL Cholesterol Measured 122 mg/dL High 0-100 [facility] Comment on above: Order Comment: [...] BNP, THYROID SC, CBC #### [facility] [address] [place] [address] [facility] Lipid Panelon 06-09-2023 Cholesterol [Mass/Vol] 216 mg/dL High 140-200 [facility] Comment on above: Order Comment: Reaso n for Exam Other chest pain;Primary hypertension Result Comment: Chol less than 200 mg/dl low risk Chol 201-239 mg/dl borderline risk Chol 240 mg/dl and greater high risk Performed By: #### C KMB, LIPID, CMP, CK, HSCRP, BNP, THYROID SC, CBC #### [facility] [address] [place] [id number] [facility] Cholesterol in HDL [Mass/Vol] 69 mg/dL Normal 23-92 [facility] Comment on above: Order Comment: Reaso n for Exam Other chest pain;Primary hypertension Result Comment: HDL CHOL ATP-III CLASSIFICATION Cardiovascular Risk HDL > or equal to 60 mg/dL LOW HDL < 40 mg/dL HIGH Performed By: #### C KMB, LIPID, CMP, CK, HSCRP, BNP, THYROID SC, CBC #### [facility] [address] [place] [id number] [facility] Cholesterol.total/Chol esterol in HDL [Mass ratio] 3.1 {ratio} Normal <5.0 [facility] Comment on above: Order Comment: Reaso n for Exam Other chest pain;Primary hypertension Performed By: #### C KMB, LIPID, CMP, CK, HSCRP, BNP, THYROID SC, CBC #### [facility] [address] [place] [address] [place] LDL Cholesterol,Calculated Not performed Normal 0-100 [facility] Comment on above: Order Comment: Reaso n for Exam Other chest pain;Primary hypertension Performed By: #### C KMB, LIPID, CMP, CK, HSCRP, BNP, THYROID SC, CBC #### [facility] [address] [place] [address] [place] Triglyceride w/Reflex 443 mg/dL High 0-149 [facility] Comment on above: Order Comment: Reaso [...] CK, HSCRP, BNP, THYROID SC, CBC #### [facility] [address] VLDL CHOLESTEROL 88 mg/dL Normal [facility] Comment on above: Order Comment: Reaso n for Exam Other chest pain;Primary hypertension Performed By: #### C KMB, LIPID, CMP, CK, HSCRP, BNP, THYROID SC, CBC #### [address] MicroAlb Creat Ratio,Uon Albumin DL <= 20 mg/L (U) [Mass/Vol] 2.1 mg/dL High 0.0-1.8 [facility] Comment on above: Order Comment: Reaso n for Exam Other chest pain;Primary hypertension Performed By: #### C KMB, LIPID, CMP, CK, HSCRP, BNP, THYROID SC, CBC #### [address] Creatinine, Urine (Random) 66.0 mg/dL High 11.0-20.0 [facility] Comment on above: Order Comment: Reaso n for Exam Other chest pain;Primary hypertension Performed By: #### C KMB, LIPID, CMP, CK, HSCRP, BNP, THYROID SC, CBC #### [facility] [address] Microalbumin/Creatinin e Ratio 31.0 mg/g High 0.0-30.0 [facility] Comment on above: Order Comment: Reaso n for Exam Other chest pain;Primary hypertension Result Comment: 30-3 00 mg/g indicates an increased risk for diabetic nephropathy. Greater than 300 mg/g is consistent with clinical nephropathy. (Am. J. Kidney Disease 1995, 25:107) PERFORMED BY: [place] [address] PATHOLOGIST LANDSCAPE SUPERVISOR PALOMO WESLEY M.D. Performed By: #### C KMB, LIPID, CMP, CK, HSCRP, BNP, THYROID SC, CBC #### [facility] [address] THYROID SCREENon 06-09-2023 Free T4 [Mass/Vol] 0.68 ng/dL Normal 0.61-1.12 [facility] Comment on above: Order Comment: Reaso n for Exam Other chest pain;Primary hypertension Performed By: #### C KMB, LIPID, CMP, CK, HSCRP, BNP, THYROID SC, CBC #### [facility] [address] TSH Qn 2.09 m[IU]/L Normal 0.45-5.33 [facility] Comment on above: Order Comment: Reaso n for Exam Other chest pain;Primary hypertension Performed By: #### C KMB, LIPID, CMP, CK, HSCRP, BNP, THYROID SC, CBC #### [facility] [address] Toxassure, Urineon Toxassure, Urine Summary FINAL Normal . [facility] Comment on above: Order Comment: [...] test is not intended to distinguish between yfezt-4-tlvqudjazqocipayhrih, the predominant form of THC in most herbal or marijuana-based products, and owqrp-3-fijglsdjjdclufipsgff. Gabapentin PRESENT Cyclobenzaprine PRESENT Desmethylcyclobenzaprine PRESENT Desmethylcyclobenzaprine is an expected metabolite of cyclobenzaprine. Naproxen PRESENT ===== Test Result Flag Units Ref Range Creatinine 63 mg/dL >=20 ===== Declared Medications: Medication list was not provided. ===== For clinical consultation, please call . ===== Performed at: [facility] [address] [id number] Proofreader: Ana Munoz [facility], Phone: [phone] PERFORMED BY: [address] [place] [address] PATHOLOGIST LANDSCAPE SUPERVISOR PALOMO WESLEY M.D. Performed By: #### C KMB, LIPID, CMP, CK, HSCRP, BNP, THYROID SC, CBC #### [address] [address] [facility] Vitamin D 25 Hydroxy Totalon 06-09-2023 Vitamin D 25 Hydroxy Total 19.8 ng/mL Low 30-100 [facility] Comment on above: Order Comment: Reaso n for Exam Other chest pain;Primary hypertension Result Comment: IDRIS MIN D STATUS 25(OH)VITAMIN D RANGE (ng/mL) Deficient <20 Insufficient 20 to <30 Sufficient 30 to 100 Reference: Baron MF,Suze NC, Abdiel MAXWELL, et al. Evaluation,treatment, and prevention of vitamin D deficiency; an Endocrine Society clinical practice guideline. JCEM. 2010; 96(7):1911-30. PERFORMED BY: [address] [place] [address] PATHOLOGIST LANDSCAPE SUPERVISOR PALOMO WESLEY M.D. Performed By: #### C KMB, LIPID, CMP, CK, HSCRP, BNP, THYROID SC, CBC #### [address] [address] [facility] Formson 04-26-2023 Forms [id number]. 00TIFF Normal [facility] NM Myocardial Spect Rest/Str ess 1 Dayon 04-20-2023 NM Myocardial Spect Rest/Stress 1 Day Exam Date/Time: 04/16/2023 11:41 EST Reason for Exam: I25.10;CAD Coronary artery disease Report PROCEDURE: Treadmill nuclear stress test. INDICATION: Chest pain. PROCEDURE DETAILS: The patient was stressed according to the Savage Protocol. Exercised for 6 minutes 41 seconds achieving a heart rate of 150 beats per minute which was 88% maximal age predicted heart rate and 7.6 METS. The patient's baseline electrocardiogram was sinus rhythm with normal electrocardiogram. During deep stress there were no significant electrocardiogram changes. Page 4 had significant artifact. Recovery phase was notable for premature ventricular contractions initially. These resolved after the first minute of recovery. Heart rate and blood pressure response were normal. The patient received 9.6 millicuries of Cardiolite for rest images and 28.9 millicuries of Cardiolite for stress images. Review of raw images did not demonstrate significant motion or attenuation artifact. FINDINGS: Uptake of the tracer was homogeneous with no identifiable ischemia or infarction. The TID ratio was 0.94. The ejection fraction was 79%, end diastolic volume was 66 mL. CONCLUSIONS: Negative treadmill nuclear stress test, overall low risk stress. FINAL REPORT Signed (Electronic Signature): 04/20/2023 10:54 am Signed by: Ramone Garcia MD Transcribed by: bethany Technologist: BRITTNY Technical Comments Rest Dose (mCi Tc99m Cardiolite): 9.6 Stress Dose (mCi Tc99M Cardiolite): 28.9 Normal [facility] Stress EKG Tracingson 2023 Stress EKG Tracings [id number]. 00TIFF Normal [facility] Consent for Treatmenton 04-05 Consent for Treatment [id number]#1.0 0TIFF Normal [facility] Heart and Vascular Office/Cl inic Noteon 04-11-2023 Heart and Vascular Office/Clinic Note Chief Complaint [facility] - cardiac clearance History of Present Illness [...] with voice recognition artificial intelligence software, specifically [employer], [employer] and or [employer]. Substitutions may have occurred with voice recognition and artificial intelligence software. Documentation services were performed after patient or guardian consented to allow [employer] to record this visit. ANDERSON air cargo specialist and provider reviewed before signing. ANDERSON: [...] 3 refi (more content not included)... Normal [facility] Comment on above: Result Comment: Elec tronically Signed By: Jose PATRICK, Ramone Butt\.br\Date and Time Signed: 04/11/23 19:52 EST\.br\Electronically Co-Signed By: Guangco, Janie B\.br\Date and Time Co-Signed: 03/22/23 14:46 EST US renal BIon 04-01-2023 US renal BI [facility] Main [address] [address] Ultrasound Report Signed Patient: Meghana Craig MR#: [id number] : 1970 Acct:[id number] Age/Sex: 52 / F ADM Date: 04/01/23 Loc: UL Room: Type: [facility] CLI Attending Dr: Jes Vasquez SIMULATION SOFTWARE ENGINEER-C Ordering Provider: Jes Vasquez Date of Service: 04/01/23 US/US renal BI: R31.9 ([id number]) US/US bladder: R31.9 Copies to: Jes Vasquez [...] Johns Jr., D.O.04/01/2023 3:16 PM Dictation Location: [place] [address] Tech: Chloe Delcid Transcribed By: [facility] 04/01/23 151 Dictated By: Freddy Johns Jr, DO 04/01/23 1512 Signed By: 04/01/23 1516 Normal [facility] XR KUBon 04-01-2023 XR KUB [facility] Main [address] [address] XRay Report Signed Patient: Meghana Craig MR#: [id number] : 1970 Acct:[id number] Age/Sex: 52 / F ADM Date: 04/01/23 Loc: Room: Type: [facility] CLI Attending Dr: Jes Vasquez SIMULATION SOFTWARE ENGINEERBethC Copies to: Jes Vasquez Ordering Provider: Jes [...] Shae Guzman M.D.04/01/2023 3:38 PM Dictation Location: [place] [address] Transcribed By: [facility] 04/01/23 1538 Dictated By: Shae Guzman MD 04/01/23 1536 Signed By: 04/01/23 1538 [facility] Insurance Correspondenceon 05-24-2022 Insurance Correspondence [id number] 0TIFF [facility] Consent for Treatmenton 03-05 Consent for Treatment [id number] 0TIFF [facility] Physician Orderon 03-22-2023 Physician Order [id number] .00TIFF [facility] Referrals Officeon 3 Referrals Office [id number] .00TIFF Normal [facility] COVID Quick Testingon 2022 Result Negative [facility] Other Quick Strepon 12-15-2022 S. pyogenes Org specific cx Ql (Throat) Negative [facility] Other Quick Strep [facility] Other COVID + FLU Quick Testingon 10-14-2022 SARS-CoV-2 (COVID-19) RNA AISSATOU+probe Ql (Unsp spec) Negative [facility] Other COVID + FLU Quick Testing Negative [facility] Other Quick Strepon 10-14-2022 S. pyogenes Org specific cx Ql (Throat) Negative [facility] Other Quick Strep [facility] Other Office Visit (Cardiology)on 06-24-2022 Follow-up visit Diagnoses/Problems Assessed Costochondritis (733.6) (M94.0) Palpitations (785.1) (R00.2) For the most part brief and fleeting, seem most consistent with PVC. Coronary artery disease involving jena coronary artery of jena heart without angina pectoris (414.01) (I25.10) Mar [...] contact the office if new symptoms arise. 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 Last week she presented to [facility] due to chest pain and dizziness. [...] and fluttering . 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 Due to blood pressure and palpitations [...] Recorded: 24Jun2022 09:32AM Heart Rate88, R Radial Vfvizlis439, RUE, Si (more content not included)... Normal [facility] Tobacco Screening.on 023 Adult depression screening assessment No [facility] 250 DO Work Phone: Tobacco use status CPHS a) Yes [facility] 250 DO Work Phone: Tobacco Screening. Yes [facility] 250 DO Work Phone: Alanine aminotransferase [En zymatic activity/volume] in Serum or PlasmaOrdered By: Jes Vasquez on 06-19-2022 ALT [Catalytic activity/Vol] 11 U/L 7-52 [facility] Albumin [Mass/volume] in Ser um or Plasma by Bromocresol green (BCG) dye binding methoOrdered By: Jes Vasquez on 06-19-2022 Albumin BCG dye [Mass/Vol] 4.0 g/dL 3.5-5.7 [facility] Alkaline phosphatase [Enzyma tic activity/volume] in Serum or PlasmaOrdered By: Jes Vasquez on 06-19-2022 ALP [Catalytic activity/Vol] 70 U/L 34-104 [facility] Aspartate aminotransferase [ Enzymatic activity/volume] in Serum or PlasmaOrdered By: Jes Vasquez on 06-19-2022 AST [Catalytic activity/Vol] 11 U/L 13-39 [facility] B-Type Natriuretic Peptideon 06-19-2022 Natriuretic peptide B (Bld) [Mass/Vol] 87.0 pg/mL Normal 5-100 [facility] Comment on above: Order Comment: Reaso n for Exam Other chest pain;Primary hypertension Result Comment: PERF ORMED BY: [facility] [address] [place] [address] PATHOLOGIST LANDSCAPE SUPERVISOR PALOMO WESLEY M.D. Performed By: #### C KMB, LIPID, CMP, CK, HSCRP, BNP, THYROID SC, CBC #### [facility] [address] Basophils Auto (Bld) [#/Vol] Ordered By: Jes Vasquez on 06-19-2022 Basophils (Bld) [#/Vol] 0.1 10*3/uL 0.0-0.2 [facility] Basophils/100 WBC Auto (Bld) Ordered By: Jes Vasquez on 06-19-2022 Basophils/100 WBC (Bld) 1.2 % . [facility] Bilirubin.total [Mass/volume ] in Serum or PlasmaOrdered By: Jes Vasquez on 06-19-2022 Bilirubin [Mass/Vol] 0.2 mg/dL 0.3-1.0 [facility] C reactive protein [Mass/vol ume] in Serum or Plasma by High sensitivity methodOrdered By: Jes Vasquez on 06-19-2022 CRP High sensitivity method [Mass/Vol] 0.4 mg/L 0.0-0.9 [facility] Comment on above: Cardiovascular Risk Classification [...] on 06-19-2022 Calcium [Mass/Vol] 9.1 mg/dL 8.6-10.3 [facility] Carbon dioxide, total [Moles /volume] in Serum or PlasmaOrdered By: Jes Vasquez on 06-19-2022 CO2 [Moles/Vol] 24.4 mmol/L 21.0-31.0 [facility] Chloride [Moles/volume] in S shanna or PlasmaOrdered By: Jes Vasquez on 06-19-2022 Chloride [Moles/Vol] 108 mmol/L 98-107 [facility] Cholesterol [Mass/volume] in Serum or PlasmaOrdered By: Jes Vasquez on 06-19-2022 Cholesterol [Mass/Vol] 190 mg/dL 140-200 [facility] Comment on above: Chol less than 200 m g/dl low riskChol 201-239 mg/dl borderline riskChol 240 mg/dl and greater high risk Cholesterol in LDL Calc [Mas s/Vol]Ordered By: Jes Vasquez on 06-19-2022 Cholesterol in LDL [Mass/Vol] 74 mg/dL 0-100 [facility] Comment on above: LDL ATP III CLASSIFI CATIONLDL less than 100 mg/dL OptimalLDL 100-129 mg/dL Near or above optimalLDL 130-159 mg/dL Borderline highLDL 160-189 mg/dL HighLDL greater than 189 mg/dL Very high Cholesterol in VLDL Calc [Ma ss/Vol]Ordered By: Jes Vasquez on 06-19-2022 Cholesterol in VLDL [Mass/Vol] 48 mg/dL [facility] Complete Blood Count Auto Di ffon 06-19-2022 Basophils (Bld) [#/Vol] 0.1 10*3/uL Normal 0.0-0.2 [facility] Comment on above: Order Comment: Reaso n for Exam Other chest pain;Primary hypertension Result Comment: PERF ORMED BY: [facility] [address] [place] [address] PATHOLOGIST LANDSCAPE SUPERVISOR PALOMO WESLEY M.D. Performed By: #### C KMB, LIPID, CMP, CK, HSCRP, BNP, THYROID SC, CBC #### [facility] [address] Basophils/100 WBC (Bld) 1.2 % Normal . [facility] Comment on above: Order Comment: Reaso n for Exam Other chest pain;Primary hypertension Performed By: #### C KMB, LIPID, CMP, CK, HSCRP, BNP, THYROID SC, CBC #### [address] Eosinophils (Bld) [#/Vol] 0.2 10*3/uL Normal 0.0-0.45 [facility] Comment on above: Order Comment: Reaso n for Exam Other chest pain;Primary hypertension Performed By: #### C KMB, LIPID, CMP, CK, HSCRP, BNP, THYROID SC, CBC #### [address] Eosinophils/100 WBC (Bld) 2.5 % Normal . [facility] Comment on above: Order Comment: Reaso n for Exam Other chest pain;Primary hypertension Performed By: #### C KMB, LIPID, CMP, CK, HSCRP, BNP, THYROID SC, CBC #### [address] Erythrocyte distribution width (RBC) [Ratio] 13.2 % Normal 11.9-15.3 [facility] Comment on above: Order Comment: Reaso n for Exam Other chest pain;Primary hypertension Performed By: #### C KMB, LIPID, CMP, CK, HSCRP, BNP, THYROID SC, CBC #### [address] Hematocrit (Bld) [Volume fraction] 39.3 % Normal 34.0-46.4 [facility] Comment on above: Order Comment: Reaso n for Exam Other chest pain;Primary hypertension Performed By: #### C KMB, LIPID, CMP, CK, HSCRP, BNP, THYROID SC, CBC #### [address] Hemoglobin (Bld) [Mass/Vol] 13.1 g/dL Normal 11.8-15.4 [facility] Comment on above: Order Comment: Reaso n for Exam Other chest pain;Primary hypertension Performed By: #### C KMB, LIPID, CMP, CK, HSCRP, BNP, THYROID SC, CBC #### [address] Lymphocytes (Bld) [#/Vol] 2.5 10*3/uL Normal 1.00-4.8 [facility] Comment on above: Order Comment: Reaso n for Exam Other chest pain;Primary hypertension Performed By: #### C KMB, LIPID, CMP, CK, HSCRP, BNP, THYROID SC, CBC #### [address] Lymphocytes/100 WBC (Bld) 30.3 % Normal . [facility] Comment on above: Order Comment: Reaso n for Exam Other chest pain;Primary hypertension Performed By: #### C KMB, LIPID, CMP, CK, HSCRP, BNP, THYROID SC, CBC #### [address] MCH (RBC) [Entitic mass] 33.2 pg Normal 24.7-34.3 [facility] Comment on above: Order Comment: Reaso n for Exam Other chest pain;Primary hypertension Performed By: #### C KMB, LIPID, CMP, CK, HSCRP, BNP, THYROID SC, CBC #### [address] MCV (RBC) [Entitic vol] 99.5 fL Normal 80-100 [facility] Comment on above: Order Comment: Reaso n for Exam Other chest pain;Primary hypertension Performed By: #### C KMB, LIPID, CMP, CK, HSCRP, BNP, THYROID SC, CBC #### [address] Mean Corpuscular HGB Conc 33.4 g/dL Normal 32.0-35.0 [facility] Comment on above: Order Comment: Reaso n for Exam Other chest pain;Primary hypertension Performed By: #### C KMB, LIPID, CMP, CK, HSCRP, BNP, THYROID SC, CBC #### [address] [place] [address] [place] Monocytes (Bld) [#/Vol] 1.0 10*3/uL High 0.0-0.8 [facility] Comment on above: Order Comment: Reaso n for Exam Other chest pain;Primary hypertension Performed By: #### C KMB, LIPID, CMP, CK, HSCRP, BNP, THYROID SC, CBC #### [address] Monocytes/100 WBC (Bld) 11.6 % Normal . [facility] Comment on above: Order Comment: Reaso n for Exam Other chest pain;Primary hypertension Performed By: #### C KMB, LIPID, CMP, CK, HSCRP, BNP, THYROID SC, CBC #### [address] Neutrophils (Bld) [#/Vol] 4.5 10*3/uL Normal 1.8-7.7 [facility] Comment on above: Order Comment: Reaso n for Exam Other chest pain;Primary hypertension Performed By: #### C KMB, LIPID, CMP, CK, HSCRP, BNP, THYROID SC, CBC #### [address] Neutrophils/100 WBC (Bld) 54.4 % Normal . [facility] Comment on above: Order Comment: Reaso n for Exam Other chest pain;Primary hypertension Performed By: #### C KMB, LIPID, CMP, CK, HSCRP, BNP, THYROID SC, CBC #### [facility] [address] [place] [address] NRBC% 0.2 /100{WBC} Normal 0-0.5 [facility] Comment on above: Order Comment: Reaso n for Exam Other chest pain;Primary hypertension Performed By: #### C KMB, LIPID, CMP, CK, HSCRP, BNP, THYROID SC, CBC #### [address] Platelet mean volume (Bld) [Entitic vol] 10.2 fL Normal 6.3-10.7 [facility] Comment on above: Order Comment: Reaso n for Exam Other chest pain;Primary hypertension Performed By: #### C KMB, LIPID, CMP, CK, HSCRP, BNP, THYROID SC, CBC #### [facility] [address] Platelets (Bld) [#/Vol] 297 10*3/uL Normal 150-450 [facility] Comment on above: Order Comment: Reaso n for Exam Other chest pain;Primary hypertension Performed By: #### C KMB, LIPID, CMP, CK, HSCRP, BNP, THYROID SC, CBC #### [facility] [address] RBC (Bld) [#/Vol] 3.95 10*6/uL Normal 3.60-5.00 [facility] Comment on above: Order Comment: Reaso n for Exam Other chest pain;Primary hypertension Performed By: #### C KMB, LIPID, CMP, CK, HSCRP, BNP, THYROID SC, CBC #### [address] WBC (Bld) [#/Vol] 8.2 10*3/uL Normal 3.8-11.6 [facility] Comment on above: Order Comment: Reaso n for Exam Other chest pain;Primary hypertension Performed By: #### C KMB, LIPID, CMP, CK, HSCRP, BNP, THYROID SC, CBC #### [address] Comprehensive Metabolic Pane bryon 06-19-2022 Albumin [Mass/Vol] 4.0 g/dL Normal 3.5-5.7 [facility] Comment on above: Order Comment: Reaso n for Exam Other chest pain;Primary hypertension Performed By: #### C KMB, LIPID, CMP, CK, HSCRP, BNP, THYROID SC, CBC #### [address] Albumin/Globulin [Mass ratio] 1.7 {ratio} Normal [facility] Comment on above: Order Comment: Reaso n for Exam Other chest pain;Primary hypertension Performed By: #### C KMB, LIPID, CMP, CK, HSCRP, BNP, THYROID SC, CBC #### [facility] [address] ALP [Catalytic activity/Vol] 70 U/L Normal 34-104 [facility] Comment on above: Order Comment: Reaso n for Exam Other chest pain;Primary hypertension Performed By: #### C KMB, LIPID, CMP, CK, HSCRP, BNP, THYROID SC, CBC #### [facility] [address] [place] [id number] [facility] ALT [Catalytic activity/Vol] 11 U/L Normal 7-52 [facility] Comment on above: Order Comment: Reaso n for Exam Other chest pain;Primary hypertension Performed By: #### C KMB, LIPID, CMP, CK, HSCRP, BNP, THYROID SC, CBC #### [address] Anion gap [Moles/Vol] 10.9 mmol/L Normal 6.0-15.0 [facility] Comment on above: Order Comment: Reaso n for Exam Other chest pain;Primary hypertension Performed By: #### C KMB, LIPID, CMP, CK, HSCRP, BNP, THYROID SC, CBC #### [facility] [address] [place] [address] AST [Catalytic activity/Vol] 11 U/L Low 13-39 [facility] Comment on above: Order Comment: Reaso n for Exam Other chest pain;Primary hypertension Performed By: #### C KMB, LIPID, CMP, CK, HSCRP, BNP, THYROID SC, CBC #### [facility] [address] [place] [address] Bilirubin [Mass/Vol] 0.2 mg/dL Low 0.3-1.0 [facility] Comment on above: Order Comment: Reaso n for Exam Other chest pain;Primary hypertension Performed By: #### C KMB, LIPID, CMP, CK, HSCRP, BNP, THYROID SC, CBC #### [address] Calcium [Mass/Vol] 9.1 mg/dL Normal 8.6-10.3 [facility] Comment on above: Order Comment: Reaso n for Exam Other chest pain;Primary hypertension Performed By: #### C KMB, LIPID, CMP, CK, HSCRP, BNP, THYROID SC, CBC #### [facility] [address] Chloride [Moles/Vol] 108 mmol/L High 98-107 [facility] Comment on above: Order Comment: Reaso n for Exam Other chest pain;Primary hypertension Performed By: #### C KMB, LIPID, CMP, CK, HSCRP, BNP, THYROID SC, CBC #### [facility] [address] CO2 [Moles/Vol] 24.4 mmol/L Normal 21.0-31.0 [facility] Comment on above: Order Comment: Reaso n for Exam Other chest pain;Primary hypertension Performed By: #### C KMB, LIPID, CMP, CK, HSCRP, BNP, THYROID SC, CBC #### [address] Creatinine [Mass/Vol] 0.79 mg/dL Normal 0.60-1.20 [facility] Comment on above: Order Comment: Reaso n for Exam Other chest pain;Primary hypertension Performed By: #### C KMB, LIPID, CMP, CK, HSCRP, BNP, THYROID SC, CBC #### [address] GFR/1.73 sq M.predicted MDRD (S/P/Bld) [Vol rate/Area] mL/min/{1.73_m2} [facility] Comment on above: Order Comment: Reaso n for Exam Other chest pain;Primary hypertension Performed By: #### C KMB, LIPID, CMP, CK, HSCRP, BNP, THYROID SC, CBC #### [facility] [address] Globulin (S) [Mass/Vol] 2.3 g/dL [facility] Comment on above: Order Comment: Reaso n for Exam Other chest pain;Primary hypertension Performed By: #### C KMB, LIPID, CMP, CK, HSCRP, BNP, THYROID SC, CBC #### [address] Glucose [Mass/Vol] 94 mg/dL Normal 74-109 [facility] Comment on above: Order Comment: Reaso n for Exam Other chest pain;Primary hypertension Result Comment: [facility] Glucose Reference Range is dependent on time and content of last meal. Glucose of more than 200 mg/dL in a nonstressed, ambulatory subject supports the diagnosis of Diabetes Mellitus. ADA recommended reference range Performed By: #### C KMB, LIPID, CMP, CK, HSCRP, BNP, THYROID SC, CBC #### [facility] [address] Potassium [Moles/Vol] 4.3 mmol/L Normal 3.5-5.1 [facility] Comment on above: Order Comment: Reaso n for Exam Other chest pain;Primary hypertension Performed By: #### C KMB, LIPID, CMP, CK, HSCRP, BNP, THYROID SC, CBC #### [facility] [address] Protein [Mass/Vol] 6.3 g/dL Low 6.4-8.9 [facility] Comment on above: Order Comment: Reaso n for Exam Other chest pain;Primary hypertension Performed By: #### C KMB, LIPID, CMP, CK, HSCRP, BNP, THYROID SC, CBC #### [facility] [address] [place] [address] [place] Sodium [Moles/Vol] 139 mmol/L Normal 136-145 [facility] Comment on above: Order Comment: Reaso n for Exam Other chest pain;Primary hypertension Performed By: #### C KMB, LIPID, CMP, CK, HSCRP, BNP, THYROID SC, CBC #### [facility] [address] [place] [id number] [place] Urea nitrogen [Mass/Vol] 9 mg/dL Normal 7-25 [facility] Comment on above: Order Comment: Reaso n for Exam Other chest pain;Primary hypertension Performed By: #### C KMB, LIPID, CMP, CK, HSCRP, BNP, THYROID SC, CBC #### [facility] [address] [place] [id number] [place] Creatine Kinaseon 06-19-2022 CK [Catalytic activity/Vol] 35 U/L Normal 30-223 [facility] Comment on above: Order Comment: Reaso n for Exam Other chest pain Performed By: #### C KMB, LIPID, CMP, CK, HSCRP, BNP, THYROID SC, CBC #### [facility] [address] Creatine kinase [Enzymatic a ctivity/volume] in Serum or PlasmaOrdered By: Jes Vasquez on 06-19-2022 CK [Catalytic activity/Vol] 35 U/L [facility] Creatine kinase.MB [Mass/vol ume] in Serum or PlasmaOrdered By: Jes Vasquez on 06-19-2022 CK.MB [Mass/Vol] 2.3 ng/mL 0.6-6.3 [facility] Creatinine Kinase MBon 06-19 CK.MB [Mass/Vol] 2.3 ng/mL Normal 0.6-6.3 [facility] Comment on above: Order Comment: Reaso n for Exam Other chest pain Performed By: #### C KMB, LIPID, CMP, CK, HSCRP, BNP, THYROID SC, CBC #### [facility] [address] CKMB Relative Index 6.5 % High 0.00-2.50 [facility] Comment on above: Order Comment: Reaso n for Exam Other chest pain Result Comment: PERF ORMED BY: [place] [address] PATHOLOGIST LANDSCAPE SUPERVISOR PALOMO WESLEY M.D. Performed By: #### C KMB, LIPID, CMP, CK, HSCRP, BNP, THYROID SC, CBC #### [facility] [address] Creatinine [Mass/volume] in Serum or PlasmaOrdered By: Jes Vasquez on 06-19-2022 Creatinine [Mass/Vol] 0.79 mg/dL 0.60-1.20 [facility] Eosinophils Auto (Bld) [#/Vo l]Ordered By: Jes Vasquez on 06-19-2022 Eosinophils (Bld) [#/Vol] 0.2 10*3/uL 0.0-0.45 [facility] Eosinophils/100 WBC Auto (Bl d)Ordered By: Jes Vasquez on 06-19-2022 Eosinophils/100 WBC (Bld) 2.5 % . [facility] Erythrocyte distribution wid th Auto (RBC) [Ratio]Ordered By: Jes Vasquez on 06-19-2022 Erythrocyte distribution width (RBC) [Ratio] 13.2 % 11.9-15.3 [facility] Globulin Calc (S) [Mass/Vol] Ordered By: Jes Vasquez on 06-19-2022 Globulin (S) [Mass/Vol] 2.3 g/dL [facility] Glucose [Mass/volume] in Ser um or PlasmaOrdered By: Jes Vasquez on 06-19-2022 Glucose [Mass/Vol] 94 mg/dL 74-109 [facility] Comment on above: ADA recommended refe rence rangeRandom Glucose Reference Range is dependent on time and content of last meal. Glucose of more than 200 mg/dL in a nonstressed, ambulatory subject supports the diagnosis of Diabetes Mellitus. Hematocrit Auto (Bld) [Volum e fraction]Ordered By: Jes Vasquez on 06-19-2022 Hematocrit (Bld) [Volume fraction] 39.3 % 34.0-46.4 [facility] Hemoglobin [Mass/volume] in BloodOrdered By: Jes Vasquez on 06-19-2022 Hemoglobin (Bld) [Mass/Vol] 13.1 g/dL 11.8-15.4 [facility] High Sensitive CRPon 023 High Sensitive CRP 0.4 mg/L Normal 0.0-0.9 [facility] Comment on above: Order Comment: Reaso [...] for estimation of CVD risk. PERFORMED BY: [place] [address] PATHOLOGIST LANDSCAPE SUPERVISOR PALOMO WESLEY M.D. Performed By: #### C KMB, LIPID, CMP, CK, HSCRP, BNP, THYROID SC, CBC #### [facility] [address] Laboratory - Chemistry and C hemistry - challengeOrdered By: Jes Vasquez on 06-19-2022 GFR/1.73 sq M.predicted MDRD (S/P/Bld) [Vol rate/Area] mL/min/{1.73_m2} [facility] Leukocytes [#/volume] correc ricardo for nucleated erythrocytes in Blood by Automated counOrdered By: Jes Vasquez on 06-19-2022 WBC corrected for nucl RBC Auto (Bld) [#/Vol] 8.2 10*3/uL 3.8-11.6 [facility] Lipid Panelon 06-19-2022 Cholesterol [Mass/Vol] 190 mg/dL Normal 140-200 [facility] Comment on above: Order Comment: Reaso n for Exam Other chest pain;Primary hypertension Result Comment: Chol less than 200 mg/dl low risk Chol 201-239 mg/dl borderline risk Chol 240 mg/dl and greater high risk Performed By: #### C KMB, LIPID, CMP, CK, HSCRP, BNP, THYROID SC, CBC #### [address] Cholesterol in HDL [Mass/Vol] 68 mg/dL Normal 35-85 [facility] Comment on above: Order Comment: Reaso n for Exam Other chest pain;Primary hypertension Result Comment: HDL CHOL ATP-III CLASSIFICATION Cardiovascular Risk HDL > or equal to 60 mg/dL LOW HDL < 40 mg/dL HIGH Performed By: #### C KMB, LIPID, CMP, CK, HSCRP, BNP, THYROID SC, CBC #### [address] Cholesterol.total/Chol esterol in HDL [Mass ratio] 2.8 {ratio} Normal <5.0 [facility] Comment on above: Order Comment: Reaso n for Exam Other chest pain;Primary hypertension Performed By: #### C KMB, LIPID, CMP, CK, HSCRP, BNP, THYROID SC, CBC #### [facility] [address] LDL Cholesterol,Calculated 74 mg/dL Normal 0-100 [facility] Comment on above: Order Comment: [...] CK, HSCRP, BNP, THYROID SC, CBC #### [address] Triglyceride w/Reflex 241 mg/dL High 0-149 [facility] Comment on above: Order Comment: Reaso [...] CK, HSCRP, BNP, THYROID SC, CBC #### [facility] [address] VLDL CHOLESTEROL 48 mg/dL Normal [facility] Comment on above: Order Comment: Reaso n for Exam Other chest pain;Primary hypertension Performed By: #### C KMB, LIPID, CMP, CK, HSCRP, BNP, THYROID SC, CBC #### [facility] [address] Lymphocytes Auto (Bld) [#/Vo l]Ordered By: Jes Vasquez on 06-19-2022 Lymphocytes (Bld) [#/Vol] 2.5 10*3/uL 1.00-4.8 [facility] Lymphocytes/100 WBC Auto (Bl d)Ordered By: Jes Vasquez on 06-19-2022 Lymphocytes/100 WBC (Bld) 30.3 % . [facility] MCH Auto (RBC) [Entitic mass ]Ordered By: Jes Vasquez on 06-19-2022 MCH (RBC) [Entitic mass] 33.2 pg 24.7-34.3 [facility] MCHC Auto (RBC) [Mass/Vol]Or dered By: Jes Vasquez on 06-19-2022 MCHC (RBC) [Mass/Vol] 33.4 g/dL 32.0-35.0 [facility] MCV Auto (RBC) [Entitic vol] Ordered By: Jes Vasquez on 06-19-2022 MCV (RBC) [Entitic vol] 99.5 fL 80-100 [facility] Monocytes Auto (Bld) [#/Vol] Ordered By: Jes Vasquez on 06-19-2022 Monocytes (Bld) [#/Vol] 1.0 10*3/uL 0.0-0.8 [facility] Monocytes/100 WBC Auto (Bld) Ordered By: Jes Vasquez on 06-19-2022 Monocytes/100 WBC (Bld) 11.6 % . [facility] Natriuretic peptide B [Mass/ Vol]Ordered By: Jes Vasquez on 06-19-2022 Natriuretic peptide B (Bld) [Mass/Vol] 87.0 pg/mL 5-100 [facility] Neutrophils Auto (Bld) [#/Vo l]Ordered By: Jes Vasquez on 06-19-2022 Neutrophils (Bld) [#/Vol] 4.5 10*3/uL 1.8-7.7 [facility] Neutrophils/100 WBC Auto (Bl d)Ordered By: Jes Vasquez on 06-19-2022 Neutrophils/100 WBC (Bld) 54.4 % . [facility] No Panel InformationOrdered By: Jes Vasquez on 06-19-2022 Pharmacy Creatinine Clearance (Chem N/A [facility] Nucleated erythrocytes [Pres ence] in Blood by Automated countOrdered By: Jes Vasquez on 06-19-2022 Nucleated RBC Auto Ql (Bld) 0.2 /100{WBC} 0-0.5 [facility] Platelet mean volume Auto (B ld) [Entitic vol]Ordered By: Jes Vasquez on 06-19-2022 Platelet mean volume (Bld) [Entitic vol] 10.2 fL 6.3-10.7 [facility] Platelets Auto (Bld) [#/Vol] Ordered By: Jes Vasquez on 06-19-2022 Platelets (Bld) [#/Vol] 297 10*3/uL 150-450 [facility] Potassium [Moles/volume] in Serum or PlasmaOrdered By: Jes Vasquez on 06-19-2022 Potassium [Moles/Vol] 4.3 mmol/L 3.5-5.1 [facility] Protein [Mass/volume] in Ser um or PlasmaOrdered By: Jes Vasquez on 06-19-2022 Protein [Mass/Vol] 6.3 g/dL 6.4-8.9 [facility] RBC Auto (Bld) [#/Vol]Ordere d By: Jes Vasquez on 06-19-2022 RBC (Bld) [#/Vol] 3.95 10*6/uL 3.60-5.00 [facility] Serum or plasma albumin/glob ulin mass ratioOrdered By: Jes Vasquez on 06-19-2022 Albumin/Globulin [Mass ratio] 1.7 {ratio} [facility] Serum or plasma anion gap de terminationOrdered By: Jes Vasquez on 06-19-2022 Anion gap [Moles/Vol] 10.9 mmol/L 6.0-15.0 [facility] Serum or plasma creatine kin ase MB (CKMB)/total creatine kinase (CK) ratio by calculaOrdered By: Jes Vasquez on 06-19-2022 CK.MB Calc [Catalytic fraction] 6.5 % 0.00-2.50 [facility] Serum or plasma high density lipoprotein (HDL) cholesterol measurementOrdered By: Jes Vasquez on 06-19-2022 Cholesterol in HDL [Mass/Vol] 68 mg/dL 35-85 [facility] Comment on above: HDL CHOL ATP-III CLA SSIFICATION Cardiovascular RiskHDL > or equal to 60 mg/dL LOWHDL < 40 mg/dL HIGH Serum or plasma total choles terol/high density lipoprotein (HDL) cholesterol mass ratOrdered By: Jes Vasquez on 06-19-2022 Cholesterol.total/Chol esterol in HDL [Mass ratio] 2.8 {ratio} <5.0 [facility] Sodium [Moles/volume] in Ser um or PlasmaOrdered By: Jes Vasquez on 06-19-2022 Sodium [Moles/Vol] 139 mmol/L 136-145 [facility] THYROID SCREENon 06-19-2022 Free T4 [Mass/Vol] 0.63 ng/dL Normal 0.61-1.12 [facility] Comment on above: Order Comment: Reaso n for Exam Other chest pain;Primary hypertension Performed By: #### C KMB, LIPID, CMP, CK, HSCRP, BNP, THYROID SC, CBC #### [facility] [address] TSH Qn 2.33 m[IU]/L Normal 0.45-5.33 [facility] Comment on above: Order Comment: Reaso n for Exam Other chest pain;Primary hypertension Result Comment: PERF ORMED BY: [place] [address] PATHOLOGIST [employer]ANDSCAPE SUPERVISOR PALOMO WESLEY M.D. Performed By: #### C KMB, LIPID, CMP, CK, HSCRP, BNP, THYROID SC, CBC #### [facility] [address] Thyrotropin [Units/volume] i n Serum or PlasmaOrdered By: Jes Vasquez on 06-19-2022 TSH Qn 2.33 m[IU]/L 0.45-5.33 [facility] Thyroxine (T4) free [Mass/vo lume] in Serum or PlasmaOrdered By: Jes Vasquez on 06-19-2022 Free T4 [Mass/Vol] 0.63 ng/dL 0.61-1.12 [facility] Triglyceride [Mass/volume] i n Serum or PlasmaOrdered By: Jes Vasquez on 06-19-2022 Triglyceride [Mass/Vol] 241 mg/dL 0-149 [facility] Comment on above: TRIG ATP III CLASSIF ICATIONTRIG less than 150 mg/dL NormalTRIG 150-199 mg/dL Borderline highTRIG 200-500 mg/dL High TRIG greater than 500 mg/dL Very highStandard traceable to the Center for Disease Conrtrol and Prevention (CDC) test method. Urea nitrogen [Mass/volume] in Serum or PlasmaOrdered By: Jes Vasquez on 06-19-2022 Urea nitrogen [Mass/Vol] 9 mg/dL 7- [facility] WBC Auto (Bld) [#/Vol]Ordere d By: Jes Vasquez on 06-19-2022 WBC (Bld) [#/Vol] 8.2 10*3/uL 3.8-11.6 [facility] CARDIAC BJORN ADMITon 023 CK [Catalytic activity/Vol] 54 U/L Normal 26-192 [facility] Comment on above: Performed By: #### C JORDAN CMP #### [facility] [address] [address] [address] [place] Guthrie CK.MB [Mass/Vol] 1.70 ng/mL Normal <=3.60 [facility] Comment on above: Performed By: #### C JORDAN, CMP #### [facility] [address] [address] [address] [place] Guthrie HSTROP <4.0 Normal 4.0-51.3 [facility] Comment on above: Result Comment: CUT- OFF POINTS HAVE BEEN ESTABLISHED BASED ON THE FOURTH UNIVERSAL DEFINITIONS OF MYOCARDIAL INFARCTION. THE UPPER REFERENCE LIMIT (URL) OF TROPONIN, DEFINED THE 99TH PERCENTILE OF cTnI DISTRIBUTION IN A REFERENCE POPULATION, HAS BEEN CONFIRMED THE DECISION THRESHOLD FOR [place] DIAGNOSIS. Performed By: #### C JORDAN, CMP #### [facility] [address] [address] [address] [place] Guthrie NYA 23 ng/mL Normal 9-82 [facility] Comment on above: Performed By: #### C MICHAELM, CMP #### [facility] [address] [address] [address] [place] Guthrie CBC AUTO DIFFon 06-17-2022 BASO # 0.1 103/ul Normal 0.0-0.1 [facility] Comment on above: Performed By: #### C BC #### [facility] [address] [place] [address] Dr. [place] Guthrie Basophils/100 WBC (Bld) 1.0 % Normal 0.2-2.0 [facility] Comment on above: Performed By: #### C BC #### [facility] [address] [place] [address] Dr. [place] Guthrie EO # 0.2 103/ul Normal 0.0-0.7 [facility] Comment on above: Performed By: #### C BC #### [facility] [address] [place] [address] Dr. [place] Guthrie Eosinophils/100 WBC (Bld) 2.9 % Normal 0.9-7.0 [facility] Comment on above: Performed By: #### C BC #### [facility] [address] [place] [address] Dr. [place] Guthrie Erythrocyte distribution width (RBC) [Ratio] 12.7 % Normal 11.0-15.0 [facility] Comment on above: Performed By: #### C BC #### [facility] [address] [place] [address] Dr. [place] Guthrie Hematocrit (Bld) [Volume fraction] 42.5 % Normal 36.0-48.0 [facility] Comment on above: Performed By: #### C BC #### [facility] [address] [place] [address] Dr. [place] Guthrie Hemoglobin (Bld) [Mass/Vol] 14.7 g/dL Normal 12.0-16.0 [facility] Comment on above: Performed By: #### C BC #### [facility] [address] [place] [address] Dr. [place] Guthrie IG # 0.02 10e3/ul Normal 0.00-0.03 [facility] Comment on above: Performed By: #### C BC #### [facility] [address] [place] [address] Dr. [place] Guthrie IG % 0.3 % Normal 0.0-0.5 [facility] Comment on above: Performed By: #### C BC #### [facility] [address] [place] [address] Dr. [place] Guthrie LYMPH # 2.1 103/ul Normal 1.2-3.8 [facility] Comment on above: Performed By: #### C BC #### [facility] [address] [place] [address] Dr. [place] Guthrie Lymphocytes/100 WBC (Bld) 28.4 % Normal 20.5-60.0 [facility] Comment on above: Performed By: #### C BC #### [facility] [address] [place] [address] Dr. [place] Guthrie MANUAL DIFF REQ NO Normal [facility] Comment on above: Performed By: #### C BC #### [facility] [address] [place] [address] Dr. [place] Guthrie MCH (RBC) [Entitic mass] 33.1 pg Normal 26.7-34.0 [facility] Comment on above: Performed By: #### C BC #### [facility] [address] [place] [address] Dr. [place] Guthrie MCHC (RBC) [Mass/Vol] 34.6 g/dL Normal 29.9-35.2 [facility] Comment on above: Performed By: #### C BC #### [facility] [address] [place] [address] Dr. [place] Guthrie MCV (RBC) [Entitic vol] 95.7 fL Normal 81.0-99.0 [facility] Comment on above: Performed By: #### C BC #### [facility] [address] [place] [address] Dr. [place] Guthrie MONO # 1.0 103/ul Critically high 0.3-0.8 [facility] Comment on above: Performed By: #### C BC #### [facility] [address] [place] [address] Dr. [place] Guthrie Monocytes/100 WBC (Bld) 13.1 % Critically high 1.7-12.0 [facility] Comment on above: Performed By: #### C BC #### [facility] [address] [address] [address] [place] Guthrie NEUT # 4.0 103/ul Normal 1.4-6.5 [facility] Comment on above: Performed By: #### C BC #### [facility] [address] [address] [address] [place] Guthrie Neutrophils/100 WBC (Bld) 54.3 % Normal 43.0-75.0 [facility] Comment on above: Performed By: #### C BC #### [facility] [address] [place] [address] Dr. [place] Guthrie Platelet mean volume (Bld) [Entitic vol] 10.0 fL Normal 9.5-13.5 [facility] Comment on above: Performed By: #### C BC #### [facility] [address] [place] [address] Dr. [place] Guthrie PLT 343 103/ul Normal 150-450 [facility] Comment on above: Performed By: #### C BC #### [facility] [address] [place] [address] Dr. [place] Guthrie RBC 4.44 106/ul Normal 4.20-5.40 [facility] Comment on above: Performed By: #### C BC #### [facility] [address] [place] [address] Dr. [place] Guthrie WBC 7.4 103/ul Normal 4.0-11.0 [facility] Comment on above: Performed By: #### C BC #### [facility] [address] [place] [address] Dr. [place] Guthrie D-DIMERon 06-17-2022 D-DIMER 0.43 mg/L FEU Normal <=0.59 [facility] Comment on above: Performed By: #### D DIM #### [facility] [address] [place] [address] Dr. [place] Guthrie D-DIMER COMMENTS SEE BELOW Normal [facility] Comment on above: Result Comment: Incr [...] hospitalization. Performed By: #### D DIM #### [facility] [address] [place] [address] Dr. [place] Guthrie ER URINE PROFILEon 3 Bilirubin Ql (U) Negative Normal NEGATIVE [facility] Comment on above: Performed By: #### U MICRO, ERUR #### [facility] [address] [place] [address] Dr. [place] Guthrie Clarity (U) CLEAR Normal CLEAR [facility] Comment on above: Performed By: #### U MICRO, ERUR #### [facility] [address] [place] [address] Dr. [place] Guthrie Color (U) LT. YELLOW Normal YELLOW [facility] Comment on above: Performed By: #### U MICRO, ERUR #### [facility] [address] [place] [address] Dr. [place] NICHOLSOND A micrscopic examination will be performed if indicated. Normal [facility] Comment on above: Performed By: #### U MICRO, ERUR #### [facility] [address] [place] [address] Dr. [place] Guthrie Glucose Ql (U) Negative Normal NEGATIVE [facility] Comment on above: Performed By: #### U MICRO, ERUR #### [facility] [address] [place] [address] Dr. [place] Guthrie Hemoglobin Ql (U) SMALL Abnormal NEGATIVE [facility] Comment on above: Performed By: #### U MICRO, ERUR #### [facility] [address] [place] [address] Dr. [place] Guthrie Ketones Ql (U) Negative Normal NEGATIVE [facility] Comment on above: Performed By: #### U MICRO, ERUR #### [facility] [address] [place] [address] Dr. [place] Guthrie LEUKOCYTES Negative Normal NEGATIVE [facility] Comment on above: Performed By: #### U MICRO, ERUR #### [facility] [address] [place] [address] Dr. [place] Guthrie Nitrite Ql (U) Negative Normal NEGATIVE [facility] Comment on above: Performed By: #### U MICRO, ERUR #### [facility] [address] [place] [address] Dr. [place] Guthrie pH (U) 7.0 [pH] Normal 5-9 [facility] Comment on above: Performed By: #### U MICRO, ERUR #### [facility] [address] [place] [address] Dr. [place] Guthrie SPEC GRAVITY 1.015 Normal 1.005-<=1.0 25 [facility] Comment on above: Performed By: #### U MICRO, ERUR #### [facility] [address] [place] [address] Dr. [place] Guthrie UA PROTEIN Negative Normal NEGATIVE/ TRACE [facility] Comment on above: Performed By: #### U MICRO, ERUR #### [facility] [address] [place] [address] Dr. [place] Guthrie UR MICRO IND INDICATED Normal [facility] Comment on above: Performed By: #### U MICRO, ERUR #### [facility] [address] [place] [address] Dr. [place] Guthrie Urobilinogen Qn (U) 0.2 {Abdiaziz'U}/dL Normal 0.2 - 1. 0 [facility] Comment on above: Performed By: #### U MICRO, ERUR #### [facility] [address] [place] [address] Dr. [place] Guthrie PROF 14(COMP METB)on 023 Albumin [Mass/Vol] 3.8 g/dL Normal 3.4-5.0 [facility] Comment on above: Performed By: #### C MADM, CMP #### [facility] [address] [place], [place] [id number] Dr. [place] Guthrie Albumin/Globulin [Mass ratio] 1.1 {ratio} Normal [facility] Comment on above: Performed By: #### C JORDAN, CMP #### [facility] [address] [address] [address] [place] Guthrie ALP [Catalytic activity/Vol] 96 U/L Normal 46-116 [facility] Comment on above: Performed By: #### C JORDAN, CMP #### [facility] [address] [address] [address] [place] Guthrie ALT [Catalytic activity/Vol] 19 U/L Normal 14-59 [facility] Comment on above: Performed By: #### C JORDAN, CMP #### [facility] [address] [address] [address] [place] Guthrie Anion gap [Moles/Vol] 11.2 mmol/L Normal [facility] Comment on above: Performed By: #### C JORDAN, CMP #### [facility] [address] [place] [address] Dr. [place] Guthrie AST [Catalytic activity/Vol] 19 U/L Normal 15-37 [facility] Comment on above: Performed By: #### C JORDAN, CMP #### [facility] [address] [address] [address] [place] Guthrie Bilirubin [Mass/Vol] 0.5 mg/dL Normal 0.2-1.0 [facility] Comment on above: Performed By: #### C JORDAN, CMP #### [facility] [address] [place] [address] Dr. [place] Guthrie Calcium [Mass/Vol] 8.8 mg/dL Normal 8.5-10.1 [facility] Comment on above: Performed By: #### C JORDAN, CMP #### [facility] [address] [address] [address] [place] Guthrie Chloride [Moles/Vol] 104 mmol/L Normal 98-107 [facility] Comment on above: Performed By: #### C JORDAN, CMP #### [facility] [address] [place] [address] Dr. [place] Guthrie CO2 [Moles/Vol] 24.1 mmol/L Normal 21.0-32.0 [facility] Comment on above: Performed By: #### C JORDAN, CMP #### [facility] [address] [address] [address] [place] Guthrie Creatinine [Mass/Vol] 0.73 mg/dL Normal 0.55-1.02 [facility] Comment on above: Performed By: #### C JORDAN, CMP #### [facility] [address] [address] [address] [place] Guthrie EGFR-AF TRISTANIAN >60 Normal >=60 [facility] Comment on above: Performed By: #### C JORDAN, CMP #### [facility] [address] [address] [address] [place] Guthrie EGFR-NON AF TRISTANIAN >60 Normal >=60 [facility] Comment on above: Performed By: #### C JORDAN, CMP #### [facility] [address] [address] [address] [place] G[place]rie Globulin (S) [Mass/Vol] 3.6 g/dL Normal [facility] Comment on above: Performed By: #### C JORDAN, CMP #### [facility] [address] [address] [address] [place] G[place] Glucose [Mass/Vol] 112 mg/dL Critically high 74-106 [facility] Comment on above: Performed By: #### C JORDAN, CMP #### [facility] [address] [address] [address] [place] G[place]rie Potassium [Moles/Vol] 3.3 mmol/L Critically low 3.5-5.1 [facility] Comment on above: Performed By: #### C JORDAN, CMP #### [facility] [address] [address] [address] [place] Guthrie Protein [Mass/Vol] 7.4 g/dL Normal 6.4-8.2 [facility] Comment on above: Performed By: #### C JORDAN, CMP #### [facility] [address] [address] [address] [place] Guthrie Sodium [Moles/Vol] 136 mmol/L Normal 136-145 [facility] Comment on above: Performed By: #### C JORDAN, CMP #### [facility] [address] [place] [address] Dr. [place] Guthrie Urea nitrogen [Mass/Vol] 6.0 mg/dL Critically low 7.0-18.0 [facility] Comment on above: Performed By: #### C JORDAN, CMP #### [facility] [address] [place] [address] Dr. [place] Guthrie Urea nitrogen/Creatinine [Mass ratio] 8.2 mg/mg Normal [facility] Comment on above: Performed By: #### C JORDAN, CMP #### [facility] [address] [place] [address] Dr. [place] Guthrie TROPONIN, HIGH SENSITIVITYon 06-17-2022 HSTROP 4.6 pg/mL Normal 4.0-51.3 [facility] Comment on above: Result Comment: CUT- OFF POINTS HAVE BEEN ESTABLISHED BASED ON THE FOURTH UNIVERSAL DEFINITIONS OF MYOCARDIAL INFARCTION. THE UPPER REFERENCE LIMIT (URL) OF TROPONIN, DEFINED THE 99TH PERCENTILE OF cTnI DISTRIBUTION IN A REFERENCE POPULATION, HAS BEEN CONFIRMED THE DECISION THRESHOLD FOR [place] DIAGNOSIS. Performed By: #### H STROPN #### [facility] [address] [place] [address] Dr. [place] Guthrie URINE MICROSCOPIC ONLYon BACTERIA TRACE Abnormal NONE SEEN [facility] Comment on above: Performed By: #### U MICRO, ERUR #### [facility] [address] [place] [address] Dr. [place] Guthrie Bacteria identified Cx Nom (U) NOT INDICATED Normal [facility] Comment on above: Performed By: #### U MICRO, ERUR #### [facility] [address] [place] [address] Dr. [place] Guthrie CAST NONE SEEN Normal NONE SEEN [facility] Comment on above: Performed By: #### U MICRO, ERUR #### [facility] [address] [place] [address] Dr. [place] Guthrie Crystals LM Nom (Urine sed) NONE SEEN Normal NONE SEEN [facility] Comment on above: Performed By: #### U MICRO, ERUR #### [facility] [address] [address] [address] [place] Guthrie Epithelial cells LM Ql (Urine sed) FEW Abnormal NONE SEEN /RARE [facility] Comment on above: Performed By: #### U MICRO, ERUR #### [facility] [address] [address] [address] [place] G[place]rie MUCOUS TRACE Abnormal NONE SEEN [facility] Comment on above: Performed By: #### U MICRO, ERUR #### [facility] [address] [address] [address] [place] G[place] RBC 2-5 Abnormal 0-2 [facility] Comment on above: Performed By: #### U MICRO, ERUR #### [facility] [address] [place] [address] Dr. [place] Guthrie WBC NONE SEEN Normal NONE SEEN [facility] Comment on above: Performed By: #### U MICRO, ERUR #### [facility] [address] [place] [address] Dr. [place] Guthrie XR CHEST 1 Von [...] NICK MARIE Date: 2022-06-17 12:26 Normal [facility] Tobacco Screening.on 022 Adult depression screening assessment No [facility] [address] DO Work Phone: Tobacco use status [facility] a) Yes -[facility] [address] DO Work Phone: Tobacco Screening. Yes [facility] [facility] DO Work Phone: Vital Signs Date Time Vital Sign Value Performing Clinician Tonja figueroa 08-10-2023 09:19-0400 Blood Pressure Location JES HUNTER [facility] 08-10-2023 09:19-0400 Body temperature 98.24 [degF] JES ELSA [facility] 08-10-2023 09:19-0400 Diastolic blood pressure 78 mm[Hg] JES ELSA [facility] 08-10-2023 09:19-0400 Heart rate 80 /min JES ELSA [facility] 08-10-2023 09:19-0400 Respiratory rate 19 /min JES ELSA [facility] 08-10-2023 09:19-0400 Systolic blood pressure 136 mm[Hg] JES ELSA [facility] 03-22-2023 13:16-0500 Blood Pressure Location Ramone Garcia [facility] 03-22-2023 13:16-0500 Diastolic blood pressure 85 mm[Hg] Ramone Garcia [facility] 03-22-2023 13:16-0500 Heart rate 90 /min Ramone Garcia [facility] 03-22-2023 13:16-0500 SaO2% (BldA) [Mass fraction] 99 % Ramone Garcia [facility] 03-22-2023 13:16-0500 Systolic blood pressure 126 mm[Hg] Ramone Garcia [facility] 12-15-2022 13:20-0400 Body height 165.1 cm Loretta Javier Other [facility] Other 12-15-2022 13:20-0400 Body mass index (BMI) [Ratio] 23.13 kg/m2 Loretta Javier Other [facility] Other 12-15-2022 13:20-0400 Body temperature 98.1 [degF] Loretta Javier Other [facility] Other 12-15-2022 13:20-0400 Body weight 63.05 kg Loretta Javier Other [facility] Other 12-15-2022 13:20-0400 Diastolic blood pressure 76 mm[Hg] Loretta Javier Other [facility] Other 12-15-2022 13:20-0400 Respiratory rate 18 /min Loretta Javier Other [facility] Other 12-15-2022 13:20-0400 SaO2% (BldA) [Mass fraction] 98 % Loretta Javier Other [facility] Other 12-15-2022 13:20-0400 Systolic blood pressure 128 mm[Hg] Loretta Javier Other [facility] Other 10-14-2022 11:10-0400 Body height 165.1 cm Tanya Glover Other [facility] Other 10-14-2022 11:10-0400 Body mass index (BMI) [Ratio] 23.39 kg/m2 Tanya Glover Other [facility] Other 10-14-2022 11:10-0400 Body temperature 97.8 [degF] Tanya Glover Other [facility] Other 10-14-2022 11:10-0400 Body weight 63.78 kg Tanya Glover Other [facility] Other 10-14-2022 11:10-0400 Diastolic blood pressure 85 mm[Hg] Tanya Glover Other [facility] Other 10-14-2022 11:10-0400 Respiratory rate 18 /min Tanya Glover Other [facility] Other 10-14-2022 11:10-0400 SaO2% (BldA) [Mass fraction] 99 % Tanya Glover Other [facility] Other 10-14-2022 11:10-0400 Systolic blood pressure 143 mm[Hg] Tanya Glover Other [facility] Other 06-24-2022 09:32-0400 Body height 165.1 cm No PCP None [facility] 250 DO Work Phone: 06-24-2022 09:32-0400 Body mass index (BMI) [Ratio] 24.63 kg/m2 No PCP None [facility] 250 DO Work Phone: 06-24-2022 09:32-0400 Body surface area Derived from formula 1.74 m2 No PCP None [facility] 250 DO Work Phone: 06-24-2022 09:32-0400 Body weight 67.13 kg No PCP None [facility] 250 DO Work Phone: 06-24-2022 09:32-0400 Diastolic blood pressure 82 mm[Hg] No PCP None [facility] 250 DO Work Phone: 06-24-2022 09:32-0400 Heart rate 88 /min No PCP None [facility] 250 DO Work Phone: 06-24-2022 09:32-0400 Systolic blood pressure 124 mm[Hg] No PCP None [facility] 250 DO Work Phone: 06-02-2021 15:09-0500 Diastolic blood pressure 98 mm[Hg] No PCP None [facility] 250 DO Work Phone: 06-02-2021 15:09-0500 Systolic blood pressure 142 mm[Hg] No PCP None [facility] 250 DO Work Phone: 06-02-2021 15:03-0500 Body height 165.1 cm No PCP None [facility] 250 DO Work Phone: 06-02-2021 15:03-0500 Body mass index (BMI) [Ratio] 28.29 kg/m2 No PCP None [facility] 250 DO Work Phone: 06-02-2021 15:03-0500 Body surface area Derived from formula 1.85 m2 No PCP None [facility] 250 DO Work Phone: 06-02-2021 15:03-0500 Body weight 77.11 kg No PCP None [facility] 250 DO Work Phone: 06-02-2021 15:03-0500 Diastolic blood pressure 90 mm[Hg] No PCP None [facility] 250 DO Work Phone: 06-02-2021 15:03-0500 Heart rate 92 /min No PCP None [facility] 250 DO Work Phone: 06-02-2021 15:03-0500 Systolic blood pressure 142 mm[Hg] No PCP None [facility] 250 DO Work Phone: Encounters Encounter Date Encounter Type Care Provider Facility Start: 08-10-2023 End: 08-11-2023 ambulatory PA-C JES HUNTER [place] [place] Start: 08-10-2023 End: 08-11-2023 ambulatory PA-C JES HUNTER Facility:[facility] Start: 08-10-2023 End: 08-10-2023 Lab Drop off JES HUNTER [facility] Start: 08-10-2023 End: 08-10-2023 Patient encounter procedure JES HUNTER [facility] [place] Start: 06-09-2023 End: 06-09-2023 ambulatory Jes Vasquez Facility:[facility] Start: 04-27-2023 ambulatory Ramone Molina ility:[facility] Start: 04-16-2023 End: 04-17-2023 ambulatory Ramone Garcia [place] [place] Start: 04-16-2023 End: 04-16-2023 Patient encounter procedure Ramone Garcia [facility] Start: 04-01-2023 End: 04-01-2023 ambulatory PHYSICIAN NO FAMILY Facility:[facility] Start: 03-22-2023 End: 03-23-2023 ambulatory Ramone Garcia [place] [facility] [place]: 03-22-2023 End: 03-22-2023 Patient encounter procedure Ramone Garcia [facility] Start: 12-15-2022 End: 12-15-2022 ambulatory Loretta Javier Other [employer] Other Start: 12-15-2022 Office outpatient visit 25 minutes Loretta Javier [facility] Start: 10-14-2022 End: 10-14-2022 ambulatory Tanya Glover Other [employer] Other Start: 10-14-2022 Office outpatient visit 15 minutes Tanya Glover [facility] Start: 08-14-2022 ambulatory Ms. Jes Vasquez Facility: Start: 08-14-2022 FUV, Provider: Nadia Franks, Status: Pen, Time: 1:00 PM No PCP None [facility] 250 DO Work Phone: Start: 08-06-2022 Rx Renewal No [facility] [facility] DO Work Phone: Start: 06-24-2022 Office outpatient visit 15 minutes No PCP None [facility] 250 DO Work Phone: Start: 06-24-2022 ambulatory Ms. Nadia Laienz Andrew h Facility: Start: 06-19-2022 End: 06-19-2022 ambulatory PHYSICIAN NO FAMILY Facility:[facility] Start: 06-19-2022 End: 06-19-2022 ambulatory PHYSICIAN NO [facility] Work Phone: Start: 06-19-2022 End: 06-19-2022 Departed Referred PHYSICIAN NO [facility] Start: 06-17-2022 End: 06-17-2022 ambulatory [place] . Facility: Start: 11-10-2021 ambulatory Ms. Nadia Lainez Andrew h Facility: Start: 10-27-2021 Rx Renewal No PCP None -[facility] 250 DO Work Phone: Start: 06-02-2021 Office outpatient visit 25 minutes No PCP None [place] [address] DO Work Phone: Procedures Date Procedure Procedure Detail Performing Clinician Cardiac catheter (physical object) Ramone Garcia Cardiac catheterization No P CP None Colonoscopy Ramone Chase rson Hysterectomy Ramone Chase rson Operative procedure on foot No PCP None Procedure on back No PCP Non e Procedure on back Ramone Gera salomon Plan of Treatment Date Care Activity Detail Author Start: 08-14-2022 FUV, Provider: Nadia Franks, Status: Pen, Time: 1:00 PM [facility]UV, Provider: Nadia Franks, Status: Pen, Time: 1:00 PM [place] [address] DO Work Phone: Start: 11-10-2021 FUV, Provider: Nadia Franks, Status: Pen, Time: 3:00 PM FUV, Provider: Nadia Franks, Status: Pen, Time: 3:00 PM [facility] 250 DO Work Phone: Start: 06-30-2021 FUV, Provider: Nadia Franks, Status: Pen, Time: 8:00 AM [facility]UV, Provider: Nadia Franks, Status: Pen, Time: 8:00 AM [place] [address] DO Work Phone: Immunizations Immunization Date Immunization Notes Care Provider Jennifer lacy 03-25-2021 influenza, injectabl e, quadrivalent, preservative free No PCP None [facility] 01-05-2020 influenza, injectabl e, quadrivalent, preservative free No PCP None [facility] 250 DO Work Phone: 01-06-2019 influenza, injectabl e, quadrivalent, preservative free [facility] Payers Date Payer Category Payer Self-pay [id number] 1970 Unknown [id number] 1970 Unknown [id number] 356 1971 Unknown [id number] 356 1971 Unknown [id number]. 356 1971 Unknown [id number]. 727 1971 Unknown [id number]. 727 1971 Unknown [id number] [id number]. 727 1971 Unknown [id number]. 727 1958 Medicaid [id number] Private Health Insurance [id number] Unknown [id number] Unknown [facility] Unknown [id number] Unknown [id number] 531 Unknown [id number]. 531 Unknown [id number] 531 Social History Date Type Detail Facility Tobacco smoking stat [facility] Unknown if ever smoked [facility] Start: 1970 Sex Assigned At Female F [facility] Illicit drug use Illicit drug use [facility] 250 DO Work Phone: Comment on above: 1 pack per daily.; Start: 05-26-2021 Tobacco smoking stat NHIS Ex-smoker (finding) [facility] Sex Assigned At [facility] Start: 03-22-2023 End: 08-10-2023 Tobacco smoking status Light tobacco smoker (finding) [facility] Tobacco smoking status Never [facility] Medical Equipment Procedure Code Equipment Code Equipment Origin al Text Equipment Identifier Dates Thoracotomy Staple line-reinforcement strip [id number] FDA Start: 03-26-2021 Thoracotomy Surgical adhesive/sealant, human-derived ()[id number] FDA Start: 03-26-2021 Goals Date Patient Goal Desired Activity /State Functional Status Date Assessment Result Facility 08-10-2023 Functional Status N/A [facility] 03-22-2023 Functional Status No [facility] Clinical Notes 10-14-2022 to 08-10-2023 Note Date & Type Note Facility 08-10-2023 Evaluation + Plan note Diagnostic Tests PendingUrine Cytology ([facility]) 08/10/23 [facility] 08-10-2023 Note Chief Complaint Jes Gomes CNP referral HPI Staff Evaluation requested by Jes Vasquez CNP due to Microscopic Hematuria & Renal Cyst. PT is a new pt. Last seen in our office by DDM 01/17/20 due to flank pain, hematuria, nocturia, mixed incontinence & poor urinary stream AMOL 04/01/23 *Small Lt Kidney Cyst and 08/02/23 KUB 04/01/23 *NEGATIVE and 08/02/23 CMP 06/09/23 *BUN 14 Crea 0.63 eGFR>60.0 Dysuria: no Incomplete bladder emptying: yes, PVR 0mL Hematuria: UA showed moderate today. Pt. states she has had dark urine in the past Frequency: Pt. states couple times all day Urgency: no Nocturia: no Stream: slow stream Post void dripping: no Wearing pads/ Depends: no Urge incontinence: occasionally Stress incontinence: most of the time Incontinence without Sensory Awareness: occasionally Abdominal pain: Pt. states mostly on the Rt side Flank pain: Rt. side pain. Pt. states by the end of the day pain is very back History of Present Illness staff HPI reviewed and agree. Review of Systems no fever, chills, malaise, myalgia. no rash/lesions. no chest pain, palpitations, or SOB. no abdominal pain, nausea, vomiting. no unilateral calf swelling, redness, pain Physical Exam Vitals & Measurements T: 36.8 ?C(Temporal Artery) HR: 80(Peripheral) RR: 19 BP: 136/78 HT: 65 in HT: 164 cm WT: 66 kg WT: 145.2 lb BMI: 24.54 General: nontoxic, NAD Mouth: moist mucosa Lungs: normal respiratory effort Cardio: regular rate, good distal perfusion Abdomen: nondistended, no suprapubic distention or tenderness, no CVA tenderness Neurologic: Grossly normal Skin: No rashes or suspicious lesions Assessment/Plan Meghana is a 53 yo female new pt, prior Dr. Moreau pt, referred by Jes Vasquez CNP for microscopic hematuria and renal cyst. Son age 27 (a few years ago), just passed last fall, daughter just passed in May (age 28). 1. Microscopic hematuria (R31.29: Other microscopic hematuria) Hysterectomy 30 yrs ago. Family hx of uterine cancer but not personal hx. Had microscopic hematuria in 01/2020. Was following w/ DDM. Pt was recommended to have a cysto but did not show for an appt. Micro UA 06/17/22 - 2-5 RBC. no cx available for review. Pt states she has had significant blood on many UA in the past. Has never had work-up previously. we called PCP office to request UA/Cx. They did not send any UA but did send 2 negative cx from 03/04/23 and 05/28/23. I would assume pt had microhematuria on IO UA at these times based on notes sent by PCP and pt's verbal history. IO UA today shows moderate blood. Has never seen visible blood, only has had dark urine. Bladder/renal US 04/01/23 [facility] [place] No renal mass, stone or hydro. Unremarkable bladder. KUB 04/01/23 [facility] [place] - No obvious urinary tract calculi. AMOL 08/02/23 [facility] - No renal stones or hydro. Unremarkable bladder. KUB 08/02/23 [facility] - No urinary tract calculi. Educated pt on possible etiologies of hematuria. Will initiate hematuria workup to include upper urinary tract imaging, as well as evaluation of the urinary cells with urine cytology and possible a FISH test. A cystoscopy will be scheduled to rule out lower urinary tract pathology. The rationale for this workup has been discussed, and all questions have been answered. Pt aware that a distinct etiology of the hematuria may not be clear upon conclusion of the workup. -CTU at [facility] now -Urine sample to be sent for cytology IO today -Will schedule cystoscopy. The risks and benefits for cystoscopy have been discussed. The risks include bleeding, infection, and irritation of the bladder and urinary channel, among others. The patient, after being informed of procedural details and after questions have been answered, wishes to proceed. Full informed consent has been obtained. Will order Local anesthesia. Ordered: CT Urogram Urine Cytology ([facility]) 2. Flank pain (R10.9: Unspecified abdominal pain) AMOL/KUB 08/02/23 [facility] - neg. States pain is in her right mid/lower back and is unbearable by the end of the day. Aching pain. Improves with lying down. No change w full bladder or voiding. No change w palpation. Denies constipation. Denies gross hematuria. Denies frequent UTI. Discussed additional imaging to better evaluate upper urinary tract to r/o kidneys as cause of pain (see #1). -Does not sound highly suspicious urologic in nature, likely will need to see PCP to explore other etiologies of pain. Ordered: CT Urogram 3. History of kidney stones (Z87.442: Personal history of urinary calculi) Has passed multiple stones. Most recent 5yrs ago. no stones on recent KUB/AMOL. -stone prevention diet encouraged Ordered: CT Urogram 4. Renal cyst (N28.1: Cyst of kidney, acquired) Bladder/renal US 04/01/23 [facility] [place] Small L renal cyst. 06/09/23 - BUN 14. Cr 0.63. GFR >60. -Simple cysts do not require follow-up Ordered: CT Urogram 5. Smoker (F17.200: Nicotine dependence, unspec (more content not included)... [facility] Comment on above: Result Comment: Elec tronically Signed By: JES HUNTER PA-C\.br\Date and Time Signed: 08/10/23 10:56 EDT\.br\Electronically Co-Signed By: Mirela Lozoya\.br\Date and Time Co-Signed: 08/10/23 10:16 EDT 08-10-2023 Hospital Discharg e instructions Patient Education 08/10/2023 10:50:02 Steps to Quit Smoking Steps to Quit Smoking Smoking tobacco is the leading cause of preventable . It can affect almost every organ in the body. Smoking puts you and those around you at risk for developing many serious chronic diseases. Quitting smoking can be very challenging. Do not get discouraged if you are not successful the first time. Some people need to make many attempts to quit before they achieve long-term success. Do your best to stick to your quit plan, and talk with your health care provider if you have any questions or concerns. How do I get ready to quit? When you decide to quit smoking, create a plan to help you succeed. Before you quit: Pick a date to quit. Set a date within the next 2 weeks to give you time to prepare. Write down the reasons why you are quitting. Keep this list in places where you will see it often. Tell your family, friends, and co-workers that you are quitting. Support from people you are close to can make quitting easier. Talk with your health care provider about your options for quitting smoking. Find out what treatment options are covered by your health insurance. Identify people, places, things, and activities that make you want to smoke (triggers). Avoid them. What first steps can I take to quit smoking? Throw away all cigarettes at home, at work, and in your car. Throw away smoking accessories, such as ashtrays and lighters. Clean your car. Make sure to empty the ashtray. Clean your home, including curtains and carpets. What strategies can I use to quit smoking? Talk with your health care provider about combining strategies, such as taking medicines while you are also receiving in-person counseling. Using these two strategies together makes you more likely to succeed in quitting than if you used either strategy on its own. If you are or , talk with your health care provider about finding counseling or other support strategies to quit smoking. Do not take medicine to help you quit smoking unless your health care provider tells you to. Quit right away Quit smoking completely, instead of gradually reducing how much you smoke over a period of time. Stopping smoking right away may be more successful than gradually quitting. Attend in-person counseling to help you build problem-solving skills. You are more likely to succeed in quitting if you attend counseling sessions regularly. Even short sessions of 10 minutes can be effective. Take medicine You may take medicines to help you quit smoking. Some medicines require a prescription. You can also purchase bdln-zdu-tbdwtav medicines. Medicines may have nicotine in them to replace the nicotine in cigarettes. Medicines may: Help to stop cravings. Help to relieve withdrawal symptoms. Your health care provider may recommend: Nicotine patches, gum, or lozenges. Nicotine inhalers or sprays. Non-nicotine medicine that you take by mouth. Find resources Find resources and support systems that can help you quit smoking and remain smoke-free after you quit. These resources are most helpful when you use them often. They include: Online chats with a counselor. Telephone quitlines. Printed self-help materials. Support groups or group counseling. Text messaging programs. Mobile phone apps or applications. Use apps that can help you stick to your quit plan by providing reminders, tips, and encouragement. Examples of free services include Quit Guide from the CDC and smokefree.gov What can I do to make it easier to quit? Reach out to your family and friends for support and encouragement. Call telephone quitlines, such as 7-729-KPQF-NOW, reach out to support groups, or work with a counselor for support. Ask people who smoke to avoid smoking around you. Avoid places that trigger you to smoke, such as bars, parties, or smoke-break areas at work. Spend time with people who do not smoke. Lessen the stress in your life. Stress can be a smoking trigger for some people. To lessen stress, try: ?Exercising regularly. ?Doing deep-breathing exercises. ?Doing yoga. ?Meditating. What benefits will I see if I quit smoking? Over time, you should start to see positive results, such as: Improved sense of smell and taste. Decreased coughing and sore throat. Slower heart rate. Lower blood pressure. Clearer and healthier skin. The ability to breathe more easily. Fewer sick days. Summary Quitting smoking can be very challenging. Do not get discouraged if you are not successful the first time. Some people need to make many attempts to quit before they achieve long-term success. When you decide to quit smoking, create a plan to help you succeed. Quit smoking right away, not slowly over a period of time. Find resources and support systems that can help you quit smoking and remain smoke-free after you quit. This information is not intended to replace advice given to you by your health care provider. Make sure you discuss any questions you have with your health care provider. Document Revised: 03/13/2022 Document Reviewed: 03/13/2022 [employer] Patient Education 2022 [employer] 08/10/2023 10:11:31 Cystoscopy Cystoscopy Cystoscopy is a procedure that is used to help diagnose and sometimes treat conditions that affect the lower urinary tract. The lower urinary tract includes the bladder and the urethra. The urethra is the tube that drains urine from the bladder. Cystoscopy is done using a thin, tube-shaped instrument with a light and camera at the end (cystoscope). The cystoscope may be hard or flexible, depending on the goal of the procedure. The cystoscope is inserted through the urethra, into the bladder. Cystoscopy may be recommended if you have: Urinary tract infections that keep coming back. Blood in the urine (hematuria). An inability to control when you urinate (urinary incontinence) or an overactive bladder. Unusual cells found in a urine sample. A blockage in the urethra, such as a urinary stone. Painful urination. An abnormality in the bladder found during an intravenous pyelogram (IVP) or CT scan. Cystoscopy may also be done to remove a sample of tissue to be examined under a microscope (biopsy). Tell a health care provider about: Any allergies you have. All medicines you are taking, including vitamins, herbs, eye drops, creams, and oixm-ouq-fxstzxq medicines. Any problems you or family members have had with anesthetic medicines. Any blood disorders you have. Any surgeries you have had. Any medical conditions you have. Whether you are or may be . What are the risks? Generally, this is a safe procedure. However, problems may occur, including: Infection. Bleeding. Allergic reactions to medicines. Damage to other structures or organs. What happens before the procedure? Medicines Ask your health care provider about: Changing or stopping your regular medicines. This is especially important if you are taking diabetes medicines or blood thinners. Taking medicines such as aspirin and ibuprofen. These medicines can thin your blood. Do not take these medicines unless your health care provider tells you to take them. Taking ctsb-iet-sufkdxk medicines, vitamins, herbs, and supplements. Tests You may have an exam or testing, such as: X-rays of the bladder, urethra, or kidneys. CT scan of the abdomen or pelvis. Urine tests to check for signs of infection. General instructions Follow instructions from your health care provider about eating or drinking restrictions. Ask your health care provider what steps will be taken to help prevent infection. These steps may include: ?Washing skin with a germ-killing soap. ?Taking antibiotic medicine. Plan to have a responsible adult take you home from the hospital or clinic. What happens during the procedure? You will be given one or more of the following: ?A medicine to help you relax (sedative). ?A medicine to numb the area (local anesthetic). The area around the opening of your urethra will be cleaned. The cystoscope will be passed through your urethra into your bladder. Germ-free (sterile) fluid will flow through the cystoscope to fill your bladder. The fluid will stretch your bladder so that your health care provider can clearly examine your bladder hoffman. Your doctor will look at the urethra and bladder. Your doctor may take a biopsy or remove stones. The cystoscope will be removed, and your bladder will be emptied. The procedure may vary among health care providers and hospitals. What can I expect after the procedure? After the procedure, it is common to have: Some soreness or pain in your abdomen and urethra. Urinary symptoms. These include: ?Mild pain or burning when you urinate. Pain should stop within a few minutes after you urinate. This may last for up to 1 week. ?A small amount of blood in your urine for several days. ?Feeling like you need to urinate but producing only a small amount of urine. Follow these instructions at home: Medicines Take czsx-gnk-jpkeuip and prescription medicines only as told by your health care provider. If you were prescribed an antibiotic medicine, take it as told by your health care provider. Do not stop taking the antibiotic even if you start to feel better. General instructions Return to your normal activities as told by your health care provider. Ask your health care provider what activities are safe for you. If you were given a sedative during the procedure, it can affect you for several hours. Do not drive or operate machinery until your health care provider says that it is safe. Watch for any blood in your urine. If the amount of blood in your urine increases, call your health care provider. Follow instructions from your health care provider about eating or drinking restrictions. If a tissue sample was removed for testing (biopsy) during your procedure, it is up to you to get your test results. Ask your health care provider, or the department that is doing the test, when your results will be ready. Drink enough fluid to keep your urine pale yellow. Keep all follow-up visits. This is important. Contact a health care provider if: You have pain that gets worse or does not get better with medicine, especially pain when you urinate. You have trouble urinating. You have more blood in your urine. Get help right away if: You have blood clots in your urine. You have abdominal pain. You have a fever or chills. You are unable to urinate. Summary Cystoscopy is a procedure that is used to help diagnose and sometimes treat conditions that affect the lower urinary tract. Cystoscopy is done using a thin, tube-shaped instrument with a light and camera at the end. After the procedure, it is common to have some soreness or pain in your abdomen and urethra. Watch for any blood in your urine. If the amount of blood in your urine increases, call your health care provider. If you were prescribed an antibiotic medicine, take it as told by your health care provider. Do not stop taking the antibiotic even if you start to feel better. This information is not intended to replace advice given to you by your health care provider. Make sure you discuss any questions you have with your health care provider. Document Revised: 12/03/2021 Document Reviewed: 11/01/2020 [employer] Patient Education 2022 [employer] Follow Up Care 04/30/2023 12:48:57 With:JES HUNTER PA-C, URL Address: [address] [place] [address] [id number] When: Unknown [facility] Note Echocardiology Procedure Exam Date/Time Accession # Ordering Dr. De La Vega Transthoracic 04/16/2023 14:37 [facility] [id number] Jose PATRICK, Ramone Butt CPT code 47441 [id number] Reason for Exam (Echo Transthoracic Complete) I25.10;CAD Coronary artery disease Report Version: 1 Study ID: [id number] [facility] [address] [place] [address] Adult Echocardiogram Report Name: MEGHANA CRAIG Study Date: 04/16/2023, 1: 10 PM Patient Location: [facility] : 1970 (MM/DD/YYYY) Gender: Female Age: 52 Years Height: 165.1 cm BP: 137 / 74 mmHg Weight: 63.504 kg HR: 95 bpm BSA: 1.70 m? Ordering Physician: Ramone Garcia Referring Physician: Ramone Garcia Performed By: Shama Maldonado RDCS Reason For Study: CAD Coronary artery disease History: HTN, Smoker-Yes, COPD Interpretation Summary Ejection Fraction = 60-65%. Normal LV and RV. No significant valve disease. Normal estimated PA pressure. Normal diastolic filling pattern. Procedure A complete two-dimensional transthoracic echocardiogram was performed (2D, M-mode, spectral and color flow Doppler). Study quality is good. Left Ventricle The left ventricle is normal in size. There is normal left ventricular wall thickness. Ejection Fraction = 60-65%. The left ventricular wall motion is normal. Normal diastolic function. Left Atrium The left atrial size is normal. Echocardiology Report Right Atrium Right atrial size is normal. Right Ventricle The right ventricular systolic function is normal. The right ventricle is normal size. The right ventricular wall motion is normal. Aortic Valve The aortic valve is trileaflet. No aortic regurgitation. There is no aortic stenosis. Mitral Valve The mitral valve is normal in structure and function. There is no mitral regurgitation noted. No mitral valve stenosis. Tricuspid Valve Structurally normal tricuspid valve. No evidence of tricuspid regurgitation. Mean PA pressure estimate is normal. Pulmonic Valve No evidence of stenosis. There is no pulmonic valve regurgitation. Arteries The aortic root is normal in size. Normal ascending aorta. Pulmonary artery diameter is normal. Venous The inferior vena cava is normal in size, and collapses normally with respiration. Effusion There is no pericardial effusion. Left Ventricle IVSd: 1.13 cm LVIDd: 3.4 cm LVPWd: 1.00 cm LVIDs: 2.6 cm EDV(MOD-sp4): 71.1 ml LVLd ap4: 7.6 cm ESV(MOD-sp4): 21.4 ml LVLs ap4: 5.9 cm EDV(MOD-sp2): 73.0 ml LVLd ap2: 8.0 cm ESV(MOD-sp2): 27.1 ml LVLs ap2: 6.9 cm Right Ventricle TAPSE: 2.6 cm Aortic Valve LVOT diam: 1.96 cm LV V1 max: 124.2 cm/sec LV V1 max P.2 mmHg Ao max P.6 mmHg Ao V2 max: 146.6 cm/sec Aorta Ao root diam: 2.7 cm Atria LA dimension: 2.5 cm Diastolic funtion Med Peak E' Roge: 8.1 cm/sec Lat Peak E' Roge: 10.0 cm/sec MV dec time: 0.24 sec MV E max roge: 74.1 cm/sec MV A max roge: 68.9 cm/sec Ao max P.6 mmHg Ao root area: 5.7 cm? Ao root diam: 2.7 cm Ao V2 max: 146.6 cm/sec AV VR: 0.84 NOLA(V,D): 2.6 cm? Echocardiology Report EDV(MOD-sp4): 71.1 ml EDV(Teich): 47.8 ml EF(MOD-sp4): 69.9 % EF(Teich): 47.5 % ESV(MOD-sp4): 21.4 ml ESV(Teich): 25.1 ml FS: 23.2 % IVC Diam: 1.25 cm IVSd: 1.13 cm LA dimension: 2.5 cm LV V1 max: 124.2 cm/sec LV V1 max P.2 mmHg LVIDd: 3.4 cm LVIDs: 2.6 cm LVLd ap4: 7.6 cm LVLs ap4: 5.9 cm LVOT area: 3.0 cm? LVOT diam: 1.96 cm LVPWd: 1.00 cm MV A max roge: 68.9 cm/sec MV dec time: 0.24 sec MV E max roge: 74.1 cm/sec MV E/A: 1.08 RAP systole: 3.0 mmHg RVDd: 2.8 cm RVIDd/LVIDd: 0.83 SV(MOD-sp4): 49.7 ml TAPSE: 2.6 cm E/E' Lat: 7.4 E/E' Med: 9.2 EDV(MOD-sp2): 73.0 ml EF (MOD-bp): 64.7 % EF(MOD-sp2): 62.9 % ESV(MOD-sp2): 27.1 ml LA Vol Index: 17.4 ml/m? Lat Peak E' Roge: 10.0 cm/sec LVLd ap2: 8.0 cm LVLs ap2: 6.9 cm Med Peak E' Roge: 8.1 cm/sec Electronically signed by: Ramone Garcia MD 04/17/2023, 9: 54 PM FINAL REPORT Dictated: 04/16/2023 1:10 pm Ramone Garcia MD Signed (Electronic Signature): 04/17/2023 9:54 pm Signed by: Ramone Garcia MD Transcribed by: [facility] Technologist: GARRY Bravo [facility] 12-15-2022 Evaluation note Encounter Date Diagnosis Assessment [...] understanding and is agreeable to treatment plan [facility] [facility] Other 07-12-2023 Evaluation note* Encounter Date Diagnosis Assessment Notes Treatment Notes Treatment Clinical Notes Oct, Sore throat (ICD-10 - J02.9) [...] - Z20.822) Oct, Bronchitis (ICD-10 - J40) [employer] Other Evaluation + Plan note Future Appointments Appointment Date:05/13/2023 03:45:00 PM Scheduled Provider:Ramone Garcia MD Location:[facility] Appointment Type:Cardiology Follow Up ([facility]) Future Scheduled Tests Radiology* NM Myocardial Spect Rest/Stress 1 Day 03/22/23 * Echo Transthoracic [facility] [place] [facility] Plan note Future Appointments Appointment Date:05/13/2023 03:45:00 PM Scheduled Provider:Ramone Garcia MD Location:[facility] Appointment Type:[facility] Follow Up ([facility]) [facility] note[facility] assessment information available [facility] Work Phone: [employer] [facility] Narrative - Reported* Type Description Date Surgical History hysterectomy Surgical History lumbar [employer] Other History of Present illness Narrative* The patient states she has been generally doing well since the last visit. Comorbid Illnesses: hyperlipidemia. * Symptoms: denies chest pain at rest, denies exertional chest pain, improved dyspnea, denies fatigue, denies exercise intolerance, stable palpitations, denies edema, denies orthopnea, denies dizzinessand denies orthostatic dizziness. * Associated symptoms: no syncope. * Her symptoms do not limit her activities. * Disease Monitoring: * Medications: the patient is adherent with her medication regimen. She denies medication side effects. [facility] DO Work Phone: Hospital course Narrative No data available for this section [facility] No data available for this section [facility] No data available for this section [facility] Assessments No Assessments Information Available Family History [...] dyspnea. * Patient was recently hospitalized at [facility]. The patient was seen in Cardiology consult with subsequent cardiovascular management by [facility]. Hospitalization records have been reviewed. * Reason for Cardiology Consultation: chest pain (presented with spontaneous PTX) * Consulting Staff Development Nurse: Dr. Lopez * Cardiovascular testing: cardiac cath [...] evaluation. * Last week she presented to [facility] due to chest pain and dizziness. [...] and fluttering . 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 Due to blood pressure and palpitations [...] Primary Care Provider Active Jes Vasquez , [facility] Attending Provide r Active Goals (unrecognized section and content) Goals may be documented in a n alternate sectionNo InformationNo Information No data available for this section No data available for this section No data available for this section No data available for this section INFORMATION SOURCE (unrecogn ized section and content) DATE CREATED AUTHOR 06/24/2022 [employer] DATE CREATED AUTHOR AUTHOR'S ORGANIZ ATION 07/29/2022 [facility] DATE CREATED AUTHOR AUTHOR'S ORGANIZ ATION 08/16/2022 [facility] DATE CREATED AUTHOR AUTHOR'S ORGANIZ ATION 06/18/2023 [facility] DATE CREATED AUTHOR AUTHOR'S ORGANIZ ATION 08/19/2023 [facility] [place] REASON FOR VISIT (unrecogniz ed section and [...] BE BASED ON THE PRIMARY CLINICAL RECORDS. [employer] provides no warranty or guarantee of the accuracy or completeness of information in this document.
== END 2023-08-28 09:51 | disposition home or self-care (01) ==
LOC: CT 09:50
PROVIDERS: Visit Provider Physician Assistant
DX: R31.29 Other microscopic hematuria (principal); R10.9 Unspecified abdominal pain; Z87.442 Personal history of urinary calculi; N28.1 Cyst of kidney, acquired; K57.90 Diverticulosis of intestine, part unspecified, without perforation or abscess without bleeding
CPT/HCPCS: 74178; Q9967

== ENCOUNTER 2023-09-09 06:36 | Outpatient (OUT) | payer OTHER, SELFPAY ==
--- OUTSIDE RECORDS SUMMARY | 2023-09-09 06:39 | XMS_ITS | CCD ---
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 Nadia Lainez Attending Tanya Colby Unavailable Loretta Javier [...] Consulting Ramone Xiao Consulting Ramone Xiao Consulting JES Lucero Admitting JES Fall Attending JES Fall Attending JES Mcmanus Referring Unavailab le Unavailable Unavailable Unavailable Allergies Allergy Classification Reported Allergen(s) Allergy Type Date of Onset Reaction(s) Facility Opioid Agonists (1 source) Codeine; Translations: [codeine] Drug Allergy [facility] Repository (15 sources) Codeine; Translations: [codeine] Drug Allergy 3 hives, Eruption of skin present [facility] Medications Current Medications Medication Drug Class(es) [...] Sulfate Active 324 MG PO Twice daily April 04, 2021 1:00am gabapentin 300 mg [...] Nocturia, # 60 tab(s), Refills(s) 3, Pharmacy: [facility], 165, cm, 01/17/20 11:18:00 EDT, Height/Length [...] Drug Class(es) Dates Sig (Normalized) Sig (Original) [id number] 200 actuat albuterol 0.09 mg/actuat metered dose [...] Active Start: 06-02-2021 take 1 capsule by [facility] once daily dilTIAZem HCl ER Coated Beads [...] 30 Refills: 1 Ordered: 02-Jun-2021 Migel Peter APRN-Nadia BANEGAS Start : 02-Jun-2021 Active Start: 01-09-2019 End: [...] sources) Coronary atherosclerosis; Translations: [Coronary atherosclerosis of [place] coronary artery] 12-30-2021 Chronic Disorders of lipid metabolism (5 sources) [...] 06-09-2023 Episodic Other aftercare (1 source) 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; Translations: [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] Onset: 06-09-2023 Episodic Other [...] Test Name Value Interpretation Reference Range Facility RAD - CT Reporton 08-31-2023 RAD - CT Report [id number]#1.00 TIFF Normal [facility] Lab Reportson 08-17-2023 Lab Reports [id number]#1.0 0TIFF Normal [facility] Urine Cytology ([facility])on 0 08-17-2023 Microscopic exam Cytology (U) [Interp] Diagnosis Info Invalid Interpretation Code [facility] Comment on above: Result Comment: A:Ur ine,Urine:Voided Interpretation - MicroScopic Description - Adequacy - Gross Description Site ID:A color Light Yellow fixative Alcohol Specimen designated Urine received in alcohol preservative and labeled with the patient?s name, consists of 60ml clear light yellow fluid. Electronically signed by : on: 08/17/2023 14:12:20 Performed By: #### 1 [id number] ####[facility] [address] [place] [address] Lab Reportson 08-11-2023 Lab Reports [id number]#1.00 TIFF Normal [facility] Physician Referralon 024 Physician Referral [id number]#1.0 0TIFF Normal [facility] RAD - MISCon 08-11-2023 RAD - MISC [id number]#1.0 0TIFF Normal [facility] RAD - MISC [id number]#1.0 0TIFF Normal [facility] RAD - Ultrasound Reporton RAD - Ultrasound Report [id number]#1.0 0TIFF Normal [facility] RAD - Ultrasound Report [id number]#1.0 0TIFF Normal [facility] Screenson 08-11-2023 Screens [id number]#1.0 0TIFF Normal [facility] Ambulatory Visit Summaryon 0 08-10-2023 Ambulatory Visit [...] JES HUNTER PA-C, URL When: Where: [address] [place] [address] [id number] Medications What How Much When Instructions Unchanged [...] make many (more content not included)... Normal [facility] Patient Educationon 08-10-19 Patient Education Pulmonary Medicine Steps to Quit [...] require a prescription. You can also purchase vmbs-wqm-dqhdwsi medicines. Medicines may have nicotine in them [...] and encouragement. Call telephone quitlines, such as 5-336-NYPQ-NOW, reach out to support groups, or work [...] quit smoki (more content not included)... Normal [facility] Urine Cytology ([facility])on 08-10-2023 Method of Extraction Voided Normal [facility] Comment on above: Performed By: #### 1 [id number] ####[facility] [address] [place] [address] Number of Jars 1 Invalid Interpretation Code [facility] Comment on above: Performed By: #### 1 [id number] ####[facility] [address] [place] [address] Specimen Urine Normal [facility] Comment on above: Performed By: #### 1 [id number] ####[facility] [address] [place] [address] Type of Service Technical Only Normal Fi [facility] Comment on above: Performed By: #### 1 [id number] ####[facility] [address] [place] [address] Complete Blood Count Auto Di ffon 06-09-2023 Basophils (Bld) [#/Vol] 0.0 10*3/uL Normal 0.0-0.2 [facility] Comment on above: Order Comment: Reaso n for Exam Other chest pain;Primary hypertension Result Comment: PERF ORMED BY: [place] [address] PATHOLOGIST SOLAR PHOTOVOLTAIC CREW LEAD PALOMO WESLEY M.D. Performed By: #### C KMB, LIPID, CMP, CK, HSCRP, BNP, THYROID SC, CBC #### [facility] [address] Basophils/100 WBC (Bld) 0.3 % Normal . [facility] Comment on above: Order Comment: Reaso n for Exam Other chest pain;Primary hypertension Performed By: #### C KMB, LIPID, CMP, CK, HSCRP, BNP, THYROID SC, CBC #### [facility] [address] [place] [address] [place] Eosinophils (Bld) [#/Vol] 0.1 10*3/uL Normal 0.0-0.45 [facility] Comment on above: Order Comment: Reaso n for Exam Other chest pain;Primary hypertension Performed By: #### C KMB, LIPID, CMP, CK, HSCRP, BNP, THYROID SC, CBC #### [address] Eosinophils/100 WBC (Bld) 1.7 % Normal . [facility] Comment on above: Order Comment: Reaso n for Exam Other chest pain;Primary hypertension Performed By: #### C KMB, LIPID, CMP, CK, HSCRP, BNP, THYROID SC, CBC #### [address] Erythrocyte distribution width (RBC) [Ratio] 13.2 % Normal 11.9-15.3 [facility] Comment on above: Order Comment: Reaso n for Exam Other chest pain;Primary hypertension Performed By: #### C KMB, LIPID, CMP, CK, HSCRP, BNP, THYROID SC, CBC #### [address] Hematocrit (Bld) [Volume fraction] 41.9 % Normal 34.0-46.4 [facility] Comment on above: Order Comment: Reaso n for Exam Other chest pain;Primary hypertension Performed By: #### C KMB, LIPID, CMP, CK, HSCRP, BNP, THYROID SC, CBC #### [address] Hemoglobin (Bld) [Mass/Vol] 14.0 g/dL Normal 11.8-15.4 [facility] Comment on above: Order Comment: Reaso n for Exam Other chest pain;Primary hypertension Performed By: #### C KMB, LIPID, CMP, CK, HSCRP, BNP, THYROID SC, CBC #### [address] Lymphocytes (Bld) [#/Vol] 2.2 10*3/uL Normal 1.00-4.8 [facility] Comment on above: Order Comment: Reaso n for Exam Other chest pain;Primary hypertension Performed By: #### C KMB, LIPID, CMP, CK, HSCRP, BNP, THYROID SC, CBC #### [address] Lymphocytes/100 WBC (Bld) 30.2 % Normal . [facility] Comment on above: Order Comment: Reaso n for Exam Other chest pain;Primary hypertension Performed By: #### C KMB, LIPID, CMP, CK, HSCRP, BNP, THYROID SC, CBC #### [address] MCH (RBC) [Entitic mass] 32.8 pg Normal 24.7-34.3 [facility] Comment on above: Order Comment: Reaso n for Exam Other chest pain;Primary hypertension Performed By: #### C KMB, LIPID, CMP, CK, HSCRP, BNP, THYROID SC, CBC #### [address] MCV (RBC) [Entitic vol] 98.5 fL Normal 80-100 [facility] Comment on above: Order Comment: Reaso n for Exam Other chest pain;Primary hypertension Performed By: #### C KMB, LIPID, CMP, CK, HSCRP, BNP, THYROID SC, CBC #### [address] Mean Corpuscular HGB Conc 33.3 g/dL Normal 32.0-35.0 [facility] Comment on above: Order Comment: Reaso n for Exam Other chest pain;Primary hypertension Performed By: #### C KMB, LIPID, CMP, CK, HSCRP, BNP, THYROID SC, CBC #### [address] Monocytes (Bld) [#/Vol] 0.8 10*3/uL Normal 0.0-0.8 [facility] Comment on above: Order Comment: Reaso n for Exam Other chest pain;Primary hypertension Performed By: #### C KMB, LIPID, CMP, CK, HSCRP, BNP, THYROID SC, CBC #### [address] Monocytes/100 WBC (Bld) 10.9 % Normal . [facility] Comment on above: Order Comment: Reaso n for Exam Other chest pain;Primary hypertension Performed By: #### C KMB, LIPID, CMP, CK, HSCRP, BNP, THYROID SC, CBC #### [place] [id number] [place] Neutrophils (Bld) [#/Vol] 4.1 10*3/uL Normal 1.8-7.7 [facility] Comment on above: Order Comment: Reaso n for Exam Other chest pain;Primary hypertension Performed By: #### C KMB, LIPID, CMP, CK, HSCRP, BNP, THYROID SC, CBC #### [facility] [address] Neutrophils/100 WBC (Bld) 56.9 % Normal . [facility] Comment on above: Order Comment: Reaso n for Exam Other chest pain;Primary hypertension Performed By: #### C KMB, LIPID, CMP, CK, HSCRP, BNP, THYROID SC, CBC #### [address] NRBC% 0.1 /100{WBC} Normal 0-0.5 [facility] Comment on above: Order Comment: Reaso n for Exam Other chest pain;Primary hypertension Performed By: #### C KMB, LIPID, CMP, CK, HSCRP, BNP, THYROID SC, CBC #### [address] Platelet mean volume (Bld) [Entitic vol] 9.0 fL Normal 6.3-10.7 [facility] Comment on above: Order Comment: Reaso n for Exam Other chest pain;Primary hypertension Performed By: #### C KMB, LIPID, CMP, CK, HSCRP, BNP, THYROID SC, CBC #### [place] [address] [place] Platelets (Bld) [#/Vol] 314 10*3/uL Normal 150-450 [facility] Comment on above: Order Comment: Reaso n for Exam Other chest pain;Primary hypertension Performed By: #### C KMB, LIPID, CMP, CK, HSCRP, BNP, THYROID SC, CBC #### [address] RBC (Bld) [#/Vol] 4.26 10*6/uL Normal 3.60-5.00 [facility] Comment on above: Order Comment: Reaso n for Exam Other chest pain;Primary hypertension Performed By: #### C KMB, LIPID, CMP, CK, HSCRP, BNP, THYROID SC, CBC #### [facility] [address] WBC (Bld) [#/Vol] 7.2 10*3/uL Normal 3.8-11.6 [facility] Comment on above: Order Comment: Reaso n for Exam Other chest pain;Primary hypertension Performed By: #### C KMB, LIPID, CMP, CK, HSCRP, BNP, THYROID SC, CBC #### [facility] [address] Comprehensive Metabolic Pane bryon 06-09-2023 Albumin [Mass/Vol] 4.2 g/dL Normal 3.5-5.7 [facility] Comment on above: Order Comment: Reaso n for Exam Other chest pain;Primary hypertension Performed By: #### C KMB, LIPID, CMP, CK, HSCRP, BNP, THYROID SC, CBC #### [address] Albumin/Globulin [Mass ratio] 1.4 {ratio} Normal [facility] Comment on above: Order Comment: Reaso n for Exam Other chest pain;Primary hypertension Performed By: #### C KMB, LIPID, CMP, CK, HSCRP, BNP, THYROID SC, CBC #### [address] ALP [Catalytic activity/Vol] 87 U/L Normal 34-104 [facility] Comment on above: Order Comment: Reaso n for Exam Other chest pain;Primary hypertension Performed By: #### C KMB, LIPID, CMP, CK, HSCRP, BNP, THYROID SC, CBC #### [facility] [address] ALT [Catalytic activity/Vol] 10 U/L Normal 7-52 [facility] Comment on above: Order Comment: Reaso n for Exam Other chest pain;Primary hypertension Performed By: #### C KMB, LIPID, CMP, CK, HSCRP, BNP, THYROID SC, CBC #### [facility] [address] Anion gap [Moles/Vol] 12.9 mmol/L Normal 6.0-15.0 [facility] Comment on above: Order Comment: Reaso n for Exam Other chest pain;Primary hypertension Performed By: #### C KMB, LIPID, CMP, CK, HSCRP, BNP, THYROID SC, CBC #### [facility] [address] AST [Catalytic activity/Vol] 12 U/L Low 13-39 [facility] Comment on above: Order Comment: Reaso n for Exam Other chest pain;Primary hypertension Performed By: #### C KMB, LIPID, CMP, CK, HSCRP, BNP, THYROID SC, CBC #### [facility] [address] Bilirubin [Mass/Vol] 0.2 mg/dL Low 0.3-1.0 [facility] Comment on above: Order Comment: Reaso n for Exam Other chest pain;Primary hypertension Performed By: #### C KMB, LIPID, CMP, CK, HSCRP, BNP, THYROID SC, CBC #### [facility] [address] Calcium [Mass/Vol] 9.5 mg/dL Normal 8.6-10.3 [facility] Comment on above: Order Comment: Reaso n for Exam Other chest pain;Primary hypertension Performed By: #### C KMB, LIPID, CMP, CK, HSCRP, BNP, THYROID SC, CBC #### [facility] [address] Chloride [Moles/Vol] 105 mmol/L Normal 98-107 [facility] Comment on above: Order Comment: Reaso n for Exam Other chest pain;Primary hypertension Performed By: #### C KMB, LIPID, CMP, CK, HSCRP, BNP, THYROID SC, CBC #### [facility] [address] CO2 [Moles/Vol] 25.0 mmol/L Normal 21.0-31.0 [facility] Comment on above: Order Comment: Reaso n for Exam Other chest pain;Primary hypertension Performed By: #### C KMB, LIPID, CMP, CK, HSCRP, BNP, THYROID SC, CBC #### [facility] [address] Creatinine [Mass/Vol] 0.63 mg/dL Normal 0.60-1.20 [facility] Comment on above: Order Comment: Reaso n for Exam Other chest pain;Primary hypertension Performed By: #### C KMB, LIPID, CMP, CK, HSCRP, BNP, THYROID SC, CBC #### [facility] [address] GFR/1.73 sq M.predicted MDRD (S/P/Bld) [Vol rate/Area] mL/min/{1.73_m2} [facility] Comment on above: Order Comment: Reaso n for Exam Other chest pain;Primary hypertension Performed By: #### C KMB, LIPID, CMP, CK, HSCRP, BNP, THYROID SC, CBC #### [address] Globulin (S) [Mass/Vol] 2.9 g/dL [facility] Comment on above: Order Comment: Reaso n for Exam Other chest pain;Primary hypertension Performed By: #### C KMB, LIPID, CMP, CK, HSCRP, BNP, THYROID SC, CBC #### [address] Glucose [Mass/Vol] 90 mg/dL Normal 70-100 [facility] Comment on above: Order Comment: Reaso n for Exam Other chest pain;Primary hypertension Result Comment: [place] Glucose Reference Range is dependent on time and content of last meal. Glucose of more than 200 mg/dL in a nonstressed, ambulatory subject supports the diagnosis of Diabetes Mellitus. ADA recommended reference range Performed By: #### C KMB, LIPID, CMP, CK, HSCRP, BNP, THYROID SC, CBC #### [address] Potassium [Moles/Vol] 3.9 mmol/L Normal 3.5-5.1 [facility] Comment on above: Order Comment: Reaso n for Exam Other chest pain;Primary hypertension Performed By: #### C KMB, LIPID, CMP, CK, HSCRP, BNP, THYROID SC, CBC #### [address] Protein [Mass/Vol] 7.1 g/dL Normal 6.4-8.9 [facility] Comment on above: Order Comment: Reaso n for Exam Other chest pain;Primary hypertension Performed By: #### C KMB, LIPID, CMP, CK, HSCRP, BNP, THYROID SC, CBC #### [address] Sodium [Moles/Vol] 139 mmol/L Normal 136-145 [facility] Comment on above: Order Comment: Reaso n for Exam Other chest pain;Primary hypertension Performed By: #### C KMB, LIPID, CMP, CK, HSCRP, BNP, THYROID SC, CBC #### [address] Urea nitrogen [Mass/Vol] 14 mg/dL Normal 7-25 [facility] Comment on above: Order Comment: Reaso n for Exam Other chest pain;Primary hypertension Performed By: #### C KMB, LIPID, CMP, CK, HSCRP, BNP, THYROID SC, CBC #### [address] Ferritinon 06-09-2023 Ferritin [Mass/Vol] 78.9 ng/mL Normal 11.0-306.8 [facility] Comment on above: Order Comment: Reaso n for Exam Other chest pain;Primary hypertension Performed By: #### C KMB, LIPID, CMP, CK, HSCRP, BNP, THYROID SC, CBC #### [address] HIV 1/O/2 Antigen/Antibodyon 06-09-2023 HIV Screen 4th Generation Non-Reactive Normal Non Reactive [facility] Comment on above: Order Comment: Reaso n for Exam Other chest pain;Primary hypertension Result Comment: HIV Negative HIV-1/HIV-2 antibodies and HIV-1 p24 antigen were NOT detected. There is no laboratory evidence of HIV infection. Performed at: [address] [id number] Senior Business Manager: Kurtis Gallegos PhD, Phone: [phone] PERFORMED BY: [place] [address] PATHOLOGIST SOLAR PHOTOVOLTAIC CREW LEAD PALOMO WESLEY M.D. Performed By: #### C KMB, LIPID, CMP, CK, HSCRP, BNP, THYROID SC, CBC #### [address] Iron and TIBC Profileon 03- % Iron Saturation 22.1 % Normal 20-50 [facility] Comment on above: Order Comment: Reaso n for Exam Other chest pain;Primary hypertension Performed By: #### C KMB, LIPID, CMP, CK, HSCRP, BNP, THYROID SC, CBC #### [address] Iron [Mass/Vol] 93 ug/dL Normal 50-212 [facility] Comment on above: Order Comment: Reaso n for Exam Other chest pain;Primary hypertension Performed By: #### C KMB, LIPID, CMP, CK, HSCRP, BNP, THYROID SC, CBC #### [address] Total Iron Binding Capacity 420 ug/dL Normal 255-450 [facility] Comment on above: Order Comment: Reaso n for Exam Other chest pain;Primary hypertension Performed By: #### C KMB, LIPID, CMP, CK, HSCRP, BNP, THYROID SC, CBC #### [facility] [address] [place] [address] Transferrin [Mass/Vol] 300 mg/dL Normal 203-362 [facility] Comment on above: Order Comment: Reaso n for Exam Other chest pain;Primary hypertension Performed By: #### C KMB, LIPID, CMP, CK, HSCRP, BNP, THYROID SC, CBC #### [address] LDL Cholesterol Measuredon 0 06-09-2023 LDL Cholesterol Measured 122 mg/dL High 0-100 [facility] Comment on above: Order Comment: Reaso n for Exam Other chest pain;Primary hypertension Result Comment: LDL ATP III CLASSIFICATION LDL less than 100 mg/dL Optimal LDL 100-129 mg/dL Near or above optimal LDL 130-159 mg/dL Borderline high LDL 160-189 mg/dL High LDL greater than 189 mg/dL Very high Performed By: #### C KMB, LIPID, CMP, CK, HSCRP, BNP, THYROID SC, CBC #### [facility] [address] Lipid Panelon 06-09-2023 Cholesterol [Mass/Vol] 216 mg/dL High 140-200 [facility] Comment on above: Order Comment: Reaso n for Exam Other chest pain;Primary hypertension Result Comment: Chol less than 200 mg/dl low risk Chol 201-239 mg/dl borderline risk Chol 240 mg/dl and greater high risk Performed By: #### C KMB, LIPID, CMP, CK, HSCRP, BNP, THYROID SC, CBC #### [facility] [address] Cholesterol in HDL [Mass/Vol] 69 mg/dL Normal 23-92 [facility] Comment on above: Order Comment: Reaso n for Exam Other chest pain;Primary hypertension Result Comment: HDL CHOL ATP-III CLASSIFICATION Cardiovascular Risk HDL > or equal to 60 mg/dL LOW HDL < 40 mg/dL HIGH Performed By: #### C KMB, LIPID, CMP, CK, HSCRP, BNP, THYROID SC, CBC #### [facility] [address] Cholesterol.total/Chol esterol in HDL [Mass ratio] 3.1 {ratio} Normal <5.0 [facility] Comment on above: Order Comment: Reaso n for Exam Other chest pain;Primary hypertension Performed By: #### C KMB, LIPID, CMP, CK, HSCRP, BNP, THYROID SC, CBC #### [facility] [address] [place] [id number] [place] LDL Cholesterol,Calculated Not performed Normal 0-100 [facility] Comment on above: Order Comment: Reaso n for Exam Other chest pain;Primary hypertension Performed By: #### C KMB, LIPID, CMP, CK, HSCRP, BNP, THYROID SC, CBC #### [facility] [address] [place] [id number] [place] Triglyceride w/Reflex 443 mg/dL High 0-149 [facility] Comment on above: Order Comment: Reaso [...] CK, HSCRP, BNP, THYROID SC, CBC #### [facility] [address] VLDL CHOLESTEROL 88 mg/dL Normal [facility] Comment on above: Order Comment: Reaso n for Exam Other chest pain;Primary hypertension Performed By: #### C KMB, LIPID, CMP, CK, HSCRP, BNP, THYROID SC, CBC #### [facility] [address] MicroAlb Creat Ratio,Uon Albumin DL <= 20 mg/L (U) [Mass/Vol] 2.1 mg/dL High 0.0-1.8 [facility] Comment on above: Order Comment: Reaso n for Exam Other chest pain;Primary hypertension Performed By: #### C KMB, LIPID, CMP, CK, HSCRP, BNP, THYROID SC, CBC #### [facility] [address] Creatinine, Urine (Random) 66.0 mg/dL High 11.0-20.0 [facility] Comment on above: Order Comment: Reaso n for Exam Other chest pain;Primary hypertension Performed By: #### C KMB, LIPID, CMP, CK, HSCRP, BNP, THYROID SC, CBC #### [facility] [address] Microalbumin/Creatinin e Ratio 31.0 mg/g High 0.0-30.0 [facility] Comment on above: Order Comment: Reaso n for Exam Other chest pain;Primary hypertension Result Comment: 30-3 00 mg/g indicates an increased risk for diabetic nephropathy. Greater than 300 mg/g is consistent with clinical nephropathy. (Am. J. Kidney Disease 1995, 25:107) PERFORMED BY: [place] [address] PATHOLOGIST SOLAR PHOTOVOLTAIC CREW LEAD PALOMO WESLEY M.D. Performed By: #### C KMB, LIPID, CMP, CK, HSCRP, BNP, THYROID SC, CBC #### [facility] [address] THYROID SCREENon 06-09-2023 Free T4 [Mass/Vol] 0.68 ng/dL Normal 0.61-1.12 [facility] Comment on above: Order Comment: Reaso n for Exam Other chest pain;Primary hypertension Performed By: #### C KMB, LIPID, CMP, CK, HSCRP, BNP, THYROID SC, CBC #### [facility] [address] TSH Qn 2.09 m[IU]/L Normal 0.45-5.33 [facility] Comment on above: Order Comment: Reaso n for Exam Other chest pain;Primary hypertension Performed By: #### C KMB, LIPID, CMP, CK, HSCRP, BNP, THYROID SC, CBC #### [facility] [address] Toxassure, Urineon Toxassure, Urine Summary FINAL Normal . [facility] Comment on above: Order Comment: Reaso [...] test is not intended to distinguish between tutor-9-slbmsxbxippauybgtgmf, the predominant form of THC in most herbal or marijuana-based products, and ghrvh-9-wgisjujiadggexrbggou. Gabapentin PRESENT Cyclobenzaprine PRESENT Desmethylcyclobenzaprine PRESENT Desmethylcyclobenzaprine is an expected metabolite of cyclobenzaprine. Naproxen PRESENT ===== Test Result Flag Units Ref Range Creatinine 63 mg/dL >=20 ===== Declared Medications: Medication list was not provided. ===== For clinical consultation, please call . ===== Performed at: [employer] [address] [id number] Senior Business Manager: Ana Munoz [facility], Phone: [phone] PERFORMED BY: [address] [place] [address] PATHOLOGIST SOLAR PHOTOVOLTAIC CREW LEAD PALOMO WESLEY M.D. Performed By: #### C KMB, LIPID, CMP, CK, HSCRP, BNP, THYROID SC, CBC #### [address] [address] [facility] Vitamin D 25 Hydroxy Totalon 06-09-2023 Vitamin D 25 Hydroxy Total 19.8 ng/mL Low 30-100 [facility] Comment on above: Order Comment: Reaso n for Exam Other chest pain;Primary hypertension Result Comment: IDRIS MIN D STATUS 25(OH)VITAMIN D RANGE (ng/mL) Deficient <20 Insufficient 20 to <30 Sufficient 30 to 100 Reference: Baron MF,Suze NC, Khushi-Jeffy MAXWELL, et al. Evaluation,treatment, and prevention of vitamin D deficiency; an Endocrine Society clinical practice guideline. JCEM. 2010; 96(7):1911-30. PERFORMED BY: [address] [place] [address] PATHOLOGIST SOLAR PHOTOVOLTAIC CREW LEAD PALOMO WESLEY M.D. Performed By: #### C KMB, LIPID, CMP, CK, HSCRP, BNP, THYROID SC, CBC #### [address] [address] [facility] Formson 04-26-2023 Forms [id number] 01 [id number]. 00TIFF Normal [facility] [place] Myocardial Spect Rest/Str ess 1 Dayon [...] (Electronic Signature): 04/20/2023 10:54 am Signed by: Jose PATRICK, Ramone Butt Transcribed by: bethany Technologist: BRITTNY Technical Comments Rest Dose (mCi Tc99m Cardiolite): 9.6 Stress Dose (mCi Tc99M Cardiolite): 28.9 Normal [facility] Stress EKG Tracingson 2023 Stress EKG Tracings [id number] 02 [id number]. 00TIFF Normal [facility] Consent for Treatmenton 04-05 Consent for Treatment [id number] 0TIFF Normal [facility] Heart and Vascular Office/Cl inic Noteon 04-11-2023 [...] with voice recognition artificial intelligence software, specifically [employer], [employer] and or [employer]. Substitutions may have occurred with voice recognition and artificial intelligence software. Documentation services were performed after patient or guardian consented to allow [employer] to record this visit. ANDERSON um specialist and provider reviewed before signing. ANDERSON: [...] 3 refi (more content not included)... Normal [facility] Comment on above: Result Comment: Elec tronically Signed By: Jose PATRICK, Ramone Butt\.br\Date and Time Signed: 04/11/23 19:52 EST\.br\Electronically Co-Signed By: Janie Villarreal\.br\Date and Time Co-Signed: 03/22/23 14:46 EST US renal BIon 04-01-2023 US renal BI [facility] Main [address] [address] Ultrasound Report Signed Patient: Meghana Craig MR#: [id number] : 1970 Acct:[id number] Age/Sex: 52 / F ADM Date: 04/01/23 Loc: Room: Type: [facility] Attending Dr: Jes Vasquez FOR[employer]ANGER-C Ordering Provider: Jes Vasquez Date of Service: 04/01/23 US/US renal BI: R31.9 ([id number]) US/US bladder: R31.9 Copies to: Jes Vasquez [...] Johns Jr., D.O.04/01/2023 3:16 PM Dictation Location: [place] [address] Tech: Chloe Delcid Transcribed By: FLORES 04/01/23 151 Dictated By: Freddy Johns Jr, DO 04/01/23 151 Signed By: 04/01/23 151 Normal [facility] XR KUBon 04-01-2023 XR KUB [facility] Main [address] [address] XRay Report Signed Patient: Meghana Craig MR#: [id number] : 1970 Acct:[id number] Age/Sex: 52 / F ADM Date: 04/01/23 Loc: Room: Type: [facility] Attending Dr: Jes Vasquez FOREST RANGER-C Copies to: Jes Vasquez Ordering Provider: Jes [...] Shae Guzman M.D.04/01/2023 3:38 PM Dictation Location: RADIO--10 Transcribed By: [facility] 04/01/23 1538 Dictated By: Shae Guzman MD 04/01/23 1536 Signed By: 04/01/23 1538 [facility] Insurance Correspondenceon 1 05-24-2022 Insurance Correspondence [id number]#1.0 0TIFF [facility] Consent for Treatmenton 03-05 Consent for Treatment [id number] 0TIFF [facility] Physician Orderon 03-22-2023 Physician Order [id number] .00TIFF [facility] Referrals Officeon Referrals Office [id number] 20 [id number] .00TIFF [facility] COVID Quick Testingon 2022 Result Negative Care Thread Other Quick Strepon 12-15-2022 S. pyogenes Org specific cx Ql (Throat) Negative Care Thread Other Quick Strep Care Thread Other COVID + FLU Quick Testingon 10-14-2022 SARS-CoV-2 (COVID-19) RNA AISSATOU+probe Ql (Unsp spec) Negative Care Thread Other COVID + FLU Quick Testing Negative Care Thread Other Quick Strepon 10-14-2022 S. pyogenes Org specific cx Ql (Throat) Negative Care Thread Other Quick Strep Care Thread Other Office Visit (Cardiology)on 06-24-2022 Follow-up visit Diagnoses/Problems Assessed Costochondritis (733.6) (M94.0) Palpitations (785.1) (R00.2) For the most part brief and fleeting, seem most consistent with PVC. 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 Last week she presented to [facility] due to chest pain and dizziness. [...] and fluttering . 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 Due to blood pressure and palpitations [...] Recorded: 24Jun2022 09:32AM Heart Rate88, R Radial Thmuxeop342, RUE, Si (more content not included)... Normal [facility] Tobacco Screening.on 023 Adult depression screening assessment No [facility] [address] DO Work Phone: Tobacco use status CPHS a) Yes [facility] [address] DO Work Phone: Tobacco Screening. Yes [facility] [address] DO Work Phone: Alanine aminotransferase [En zymatic activity/volume] in Serum or PlasmaOrdered By: Jes Vasquez on 06-19-2022 ALT [Catalytic activity/Vol] 11 U/L 7-52 [facility] Albumin [Mass/volume] in Ser um or Plasma by Bromocresol green (BCG) dye binding methoOrdered By: Jes Vasquez on 06-19-2022 Albumin BCG dye [Mass/Vol] 4.0 g/dL 3.5-5.7 [facility] Alkaline phosphatase [Enzyma tic activity/volume] in Serum or PlasmaOrdered By: Jes Vasquez on 06-19-2022 ALP [Catalytic activity/Vol] 70 U/L 34-104 [facility] Aspartate aminotransferase [ Enzymatic activity/volume] in Serum or PlasmaOrdered By: Jes Vasquez on 06-19-2022 AST [Catalytic activity/Vol] 11 U/L 13-39 [facility] B-Type Natriuretic Peptideon 06-19-2022 Natriuretic peptide B (Bld) [Mass/Vol] 87.0 pg/mL Normal 5-100 [facility] Comment on above: Order Comment: Reaso n for Exam Other chest pain;Primary hypertension Result Comment: PERF ORMED BY: [facility] [address] [place] [address] PATHOLOGIST SOLAR PHOTOVOLTAIC CREW LEAD PALOMO WESLEY M.D. Performed By: #### C KMB, LIPID, CMP, CK, HSCRP, BNP, THYROID SC, CBC #### [facility] [address] Basophils Auto (Bld) [#/Vol] Ordered By: Jes Vasquez on 06-19-2022 Basophils (Bld) [#/Vol] 0.1 10*3/uL 0.0-0.2 [facility] Basophils/100 WBC Auto (Bld) Ordered By: Jes Vasquez on 06-19-2022 Basophils/100 WBC (Bld) 1.2 % . [facility] Bilirubin.total [Mass/volume ] in Serum or PlasmaOrdered By: Jes Vasquez on 06-19-2022 Bilirubin [Mass/Vol] 0.2 mg/dL 0.3-1.0 [facility] C reactive protein [Mass/vol ume] in Serum or Plasma by High sensitivity methodOrdered By: Jes Vasquez on 06-19-2022 CRP High sensitivity method [Mass/Vol] 0.4 mg/L 0.0-0.9 [facility] Comment on above: Cardiovascular Risk Classification [...] on 06-19-2022 CO2 [Moles/Vol] 24.4 mmol/L 21.0-31.0 [facility] Chloride [Moles/volume] in S shanna or PlasmaOrdered By: Jes Vasquez on 06-19-2022 Chloride [Moles/Vol] 108 mmol/L 98-107 [facility] Cholesterol [Mass/volume] in Serum or PlasmaOrdered By: Jes Vasquez on 06-19-2022 Cholesterol [Mass/Vol] 190 mg/dL 140-200 [facility] Comment on above: Chol less than 200 m g/dl low riskChol 201-239 mg/dl borderline riskChol 240 mg/dl and greater high risk Cholesterol in LDL Calc [Mas s/Vol]Ordered By: Jes Vasquez on 06-19-2022 Cholesterol in LDL [Mass/Vol] 74 mg/dL 0-100 [facility] Comment on above: LDL ATP III CLASSIFI CATIONLDL less than 100 mg/dL OptimalLDL 100-129 mg/dL Near or above optimalLDL 130-159 mg/dL Borderline highLDL 160-189 mg/dL HighLDL greater than 189 mg/dL Very high Cholesterol in VLDL Calc [Ma ss/Vol]Ordered By: Jes Vasquez on 06-19-2022 Cholesterol in VLDL [Mass/Vol] 48 mg/dL [facility] Complete Blood Count Auto Di ffon 06-19-2022 Basophils (Bld) [#/Vol] 0.1 10*3/uL Normal 0.0-0.2 [facility] Comment on above: Order Comment: Reaso n for Exam Other chest pain;Primary hypertension Result Comment: PERF ORMED BY: [place] [address] PATHOLOGIST SOLAR PHOTOVOLTAIC CREW LEAD PALOMO WESLEY M.D. Performed By: #### C KMB, LIPID, CMP, CK, HSCRP, BNP, THYROID SC, CBC #### [address] Basophils/100 WBC (Bld) 1.2 % Normal . [facility] Comment on above: Order Comment: Reaso n for Exam Other chest pain;Primary hypertension Performed By: #### C KMB, LIPID, CMP, CK, HSCRP, BNP, THYROID SC, CBC #### [address] Eosinophils (Bld) [#/Vol] 0.2 10*3/uL Normal 0.0-0.45 [facility] Comment on above: Order Comment: Reaso n for Exam Other chest pain;Primary hypertension Performed By: #### C KMB, LIPID, CMP, CK, HSCRP, BNP, THYROID SC, CBC #### [address] Eosinophils/100 WBC (Bld) 2.5 % Normal . [facility] Comment on above: Order Comment: Reaso n for Exam Other chest pain;Primary hypertension Performed By: #### C KMB, LIPID, CMP, CK, HSCRP, BNP, THYROID SC, CBC #### [address] Erythrocyte distribution width (RBC) [Ratio] 13.2 % Normal 11.9-15.3 [facility] Comment on above: Order Comment: Reaso n for Exam Other chest pain;Primary hypertension Performed By: #### C KMB, LIPID, CMP, CK, HSCRP, BNP, THYROID SC, CBC #### [address] Hematocrit (Bld) [Volume fraction] 39.3 % Normal 34.0-46.4 [facility] Comment on above: Order Comment: Reaso n for Exam Other chest pain;Primary hypertension Performed By: #### C KMB, LIPID, CMP, CK, HSCRP, BNP, THYROID SC, CBC #### [address] Hemoglobin (Bld) [Mass/Vol] 13.1 g/dL Normal 11.8-15.4 [facility] Comment on above: Order Comment: Reaso n for Exam Other chest pain;Primary hypertension Performed By: #### C KMB, LIPID, CMP, CK, HSCRP, BNP, THYROID SC, CBC #### [address] Lymphocytes (Bld) [#/Vol] 2.5 10*3/uL Normal 1.00-4.8 [facility] Comment on above: Order Comment: Reaso n for Exam Other chest pain;Primary hypertension Performed By: #### C KMB, LIPID, CMP, CK, HSCRP, BNP, THYROID SC, CBC #### [address] Lymphocytes/100 WBC (Bld) 30.3 % Normal . [facility] Comment on above: Order Comment: Reaso n for Exam Other chest pain;Primary hypertension Performed By: #### C KMB, LIPID, CMP, CK, HSCRP, BNP, THYROID SC, CBC #### [address] MCH (RBC) [Entitic mass] 33.2 pg Normal 24.7-34.3 [facility] Comment on above: Order Comment: Reaso n for Exam Other chest pain;Primary hypertension Performed By: #### C KMB, LIPID, CMP, CK, HSCRP, BNP, THYROID SC, CBC #### [address] MCV (RBC) [Entitic vol] 99.5 fL Normal 80-100 [facility] Comment on above: Order Comment: Reaso n for Exam Other chest pain;Primary hypertension Performed By: #### C KMB, LIPID, CMP, CK, HSCRP, BNP, THYROID SC, CBC #### [address] Mean Corpuscular HGB Conc 33.4 g/dL Normal 32.0-35.0 [facility] Comment on above: Order Comment: Reaso n for Exam Other chest pain;Primary hypertension Performed By: #### C KMB, LIPID, CMP, CK, HSCRP, BNP, THYROID SC, CBC #### [facility] [address] Monocytes (Bld) [#/Vol] 1.0 10*3/uL High 0.0-0.8 [facility] Comment on above: Order Comment: Reaso n for Exam Other chest pain;Primary hypertension Performed By: #### C KMB, LIPID, CMP, CK, HSCRP, BNP, THYROID SC, CBC #### [facility] [address] Monocytes/100 WBC (Bld) 11.6 % Normal . [facility] Comment on above: Order Comment: Reaso n for Exam Other chest pain;Primary hypertension Performed By: #### C KMB, LIPID, CMP, CK, HSCRP, BNP, THYROID SC, CBC #### [place] [address] [place] Neutrophils (Bld) [#/Vol] 4.5 10*3/uL Normal 1.8-7.7 [facility] Comment on above: Order Comment: Reaso n for Exam Other chest pain;Primary hypertension Performed By: #### C KMB, LIPID, CMP, CK, HSCRP, BNP, THYROID SC, CBC #### [address] Neutrophils/100 WBC (Bld) 54.4 % Normal . [facility] Comment on above: Order Comment: Reaso n for Exam Other chest pain;Primary hypertension Performed By: #### C KMB, LIPID, CMP, CK, HSCRP, BNP, THYROID SC, CBC #### [place] [address] [place] NRBC% 0.2 /100{WBC} Normal 0-0.5 [facility] Comment on above: Order Comment: Reaso n for Exam Other chest pain;Primary hypertension Performed By: #### C KMB, LIPID, CMP, CK, HSCRP, BNP, THYROID SC, CBC #### [facility] [address] Platelet mean volume (Bld) [Entitic vol] 10.2 fL Normal 6.3-10.7 [facility] Comment on above: Order Comment: Reaso n for Exam Other chest pain;Primary hypertension Performed By: #### C KMB, LIPID, CMP, CK, HSCRP, BNP, THYROID SC, CBC #### [facility] [address] Platelets (Bld) [#/Vol] 297 10*3/uL Normal 150-450 [facility] Comment on above: Order Comment: Reaso n for Exam Other chest pain;Primary hypertension Performed By: #### C KMB, LIPID, CMP, CK, HSCRP, BNP, THYROID SC, CBC #### [facility] [address] [place] [address] RBC (Bld) [#/Vol] 3.95 10*6/uL Normal 3.60-5.00 [facility] Comment on above: Order Comment: Reaso n for Exam Other chest pain;Primary hypertension Performed By: #### C KMB, LIPID, CMP, CK, HSCRP, BNP, THYROID SC, CBC #### [facility] [address] [place] [address] WBC (Bld) [#/Vol] 8.2 10*3/uL Normal 3.8-11.6 [facility] Comment on above: Order Comment: Reaso n for Exam Other chest pain;Primary hypertension Performed By: #### C KMB, LIPID, CMP, CK, HSCRP, BNP, THYROID SC, CBC #### [facility] [address] [place] [address] Comprehensive Metabolic Pane bryon 06-19-2022 Albumin [Mass/Vol] 4.0 g/dL Normal 3.5-5.7 [facility] Comment on above: Order Comment: Reaso n for Exam Other chest pain;Primary hypertension Performed By: #### C KMB, LIPID, CMP, CK, HSCRP, BNP, THYROID SC, CBC #### [facility] [address] [place] [address] Albumin/Globulin [Mass ratio] 1.7 {ratio} Normal [facility] Comment on above: Order Comment: Reaso n for Exam Other chest pain;Primary hypertension Performed By: #### C KMB, LIPID, CMP, CK, HSCRP, BNP, THYROID SC, CBC #### [facility] [address] ALP [Catalytic activity/Vol] 70 U/L Normal 34-104 [facility] Comment on above: Order Comment: Reaso n for Exam Other chest pain;Primary hypertension Performed By: #### C KMB, LIPID, CMP, CK, HSCRP, BNP, THYROID SC, CBC #### [facility] [address] ALT [Catalytic activity/Vol] 11 U/L Normal 7-52 [facility] Comment on above: Order Comment: Reaso n for Exam Other chest pain;Primary hypertension Performed By: #### C KMB, LIPID, CMP, CK, HSCRP, BNP, THYROID SC, CBC #### [facility] [address] Anion gap [Moles/Vol] 10.9 mmol/L Normal 6.0-15.0 [facility] Comment on above: Order Comment: Reaso n for Exam Other chest pain;Primary hypertension Performed By: #### C KMB, LIPID, CMP, CK, HSCRP, BNP, THYROID SC, CBC #### [facility] [address] AST [Catalytic activity/Vol] 11 U/L Low 13-39 [facility] Comment on above: Order Comment: Reaso n for Exam Other chest pain;Primary hypertension Performed By: #### C KMB, LIPID, CMP, CK, HSCRP, BNP, THYROID SC, CBC #### [facility] [address] Bilirubin [Mass/Vol] 0.2 mg/dL Low 0.3-1.0 [facility] Comment on above: Order Comment: Reaso n for Exam Other chest pain;Primary hypertension Performed By: #### C KMB, LIPID, CMP, CK, HSCRP, BNP, THYROID SC, CBC #### [facility] [address] Calcium [Mass/Vol] 9.1 mg/dL Normal 8.6-10.3 [facility] Comment on above: Order Comment: Reaso n for Exam Other chest pain;Primary hypertension Performed By: #### C KMB, LIPID, CMP, CK, HSCRP, BNP, THYROID SC, CBC #### [facility] [address] Chloride [Moles/Vol] 108 mmol/L High 98-107 [facility] Comment on above: Order Comment: Reaso n for Exam Other chest pain;Primary hypertension Performed By: #### C KMB, LIPID, CMP, CK, HSCRP, BNP, THYROID SC, CBC #### [facility] [address] CO2 [Moles/Vol] 24.4 mmol/L Normal 21.0-31.0 [facility] Comment on above: Order Comment: Reaso n for Exam Other chest pain;Primary hypertension Performed By: #### C KMB, LIPID, CMP, CK, HSCRP, BNP, THYROID SC, CBC #### [facility] [address] Creatinine [Mass/Vol] 0.79 mg/dL Normal 0.60-1.20 [facility] Comment on above: Order Comment: Reaso n for Exam Other chest pain;Primary hypertension Performed By: #### C KMB, LIPID, CMP, CK, HSCRP, BNP, THYROID SC, CBC #### [facility] [address] GFR/1.73 sq M.predicted MDRD (S/P/Bld) [Vol rate/Area] mL/min/{1.73_m2} [facility] Comment on above: Order Comment: Reaso n for Exam Other chest pain;Primary hypertension Performed By: #### C KMB, LIPID, CMP, CK, HSCRP, BNP, THYROID SC, CBC #### [facility] [address] Globulin (S) [Mass/Vol] 2.3 g/dL [facility] Comment on above: Order Comment: Reaso n for Exam Other chest pain;Primary hypertension Performed By: #### C KMB, LIPID, CMP, CK, HSCRP, BNP, THYROID SC, CBC #### [facility] [address] Glucose [Mass/Vol] 94 mg/dL Normal 74-109 [facility] Comment on above: Order Comment: Reaso n for Exam Other chest pain;Primary hypertension Result Comment: [facility] Glucose Reference Range is dependent on time and content of last meal. Glucose of more than 200 mg/dL in a nonstressed, ambulatory subject supports the diagnosis of Diabetes Mellitus. ADA recommended reference range Performed By: #### C KMB, LIPID, CMP, CK, HSCRP, BNP, THYROID SC, CBC #### [facility] [address] Potassium [Moles/Vol] 4.3 mmol/L Normal 3.5-5.1 [facility] Comment on above: Order Comment: Reaso n for Exam Other chest pain;Primary hypertension Performed By: #### C KMB, LIPID, CMP, CK, HSCRP, BNP, THYROID SC, CBC #### [facility] [address] Protein [Mass/Vol] 6.3 g/dL Low 6.4-8.9 [facility] Comment on above: Order Comment: Reaso n for Exam Other chest pain;Primary hypertension Performed By: #### C KMB, LIPID, CMP, CK, HSCRP, BNP, THYROID SC, CBC #### [facility] [address] [place] [address] [place] Sodium [Moles/Vol] 139 mmol/L Normal 136-145 [facility] Comment on above: Order Comment: Reaso n for Exam Other chest pain;Primary hypertension Performed By: #### C KMB, LIPID, CMP, CK, HSCRP, BNP, THYROID SC, CBC #### [address] Urea nitrogen [Mass/Vol] 9 mg/dL Normal 7-25 [facility] Comment on above: Order Comment: Reaso n for Exam Other chest pain;Primary hypertension Performed By: #### C KMB, LIPID, CMP, CK, HSCRP, BNP, THYROID SC, CBC #### [facility] [address] [place] [id number] [place] Creatine Kinaseon 06-19-2022 CK [Catalytic activity/Vol] 35 U/L Normal 30- [facility] Comment on above: Order Comment: Reaso n for Exam Other chest pain Performed By: #### C KMB, LIPID, CMP, CK, HSCRP, BNP, THYROID SC, CBC #### [facility] [address] [place] [address] [place] Creatine kinase [Enzymatic a ctivity/volume] in Serum or PlasmaOrdered By: Jes Vasquez on 06-19-2022 CK [Catalytic activity/Vol] 35 U/L [facility] Creatine kinase.MB [Mass/vol ume] in Serum or PlasmaOrdered By: Jes Vasquez on 06-19-2022 CK.MB [Mass/Vol] 2.3 ng/mL 0.6-6.3 [facility] Creatinine Kinase MBon 06-19 CK.MB [Mass/Vol] 2.3 ng/mL Normal 0.6-6.3 [facility] Comment on above: Order Comment: Reaso n for Exam Other chest pain Performed By: #### C KMB, LIPID, CMP, CK, HSCRP, BNP, THYROID SC, CBC #### [address] CKMB Relative Index 6.5 % High 0.00-2.50 [facility] Comment on above: Order Comment: Reaso n for Exam Other chest pain Result Comment: PERF ORMED BY: [place] [address] PATHOLOGIST SOLAR PHOTOVOLTAIC CREW LEAD PALOMO WESLEY M.D. Performed By: #### C KMB, LIPID, CMP, CK, HSCRP, BNP, THYROID SC, CBC #### [place] [address] [place] Creatinine [Mass/volume] in Serum or PlasmaOrdered By: Jes Vasquez on 06-19-2022 Creatinine [Mass/Vol] 0.79 mg/dL 0.60-1.20 [facility] Eosinophils Auto (Bld) [#/Vo l]Ordered By: Jes Vasquez on 06-19-2022 Eosinophils (Bld) [#/Vol] 0.2 10*3/uL 0.0-0.45 [facility] Eosinophils/100 WBC Auto (Bl d)Ordered By: Jes Vasquez on 06-19-2022 Eosinophils/100 WBC (Bld) 2.5 % . [facility] Erythrocyte distribution wid th Auto (RBC) [Ratio]Ordered By: Jes Vasquez on 06-19-2022 Erythrocyte distribution width (RBC) [Ratio] 13.2 % 11.9-15.3 [facility] Globulin Calc (S) [Mass/Vol] Ordered By: Jes Vasquez on 06-19-2022 Globulin (S) [Mass/Vol] 2.3 g/dL [facility] Glucose [Mass/volume] in Ser um or [...] Hematocrit (Bld) [Volume fraction] 39.3 % 34.0-46.4 [facility] Hemoglobin [Mass/volume] in BloodOrdered By: Jes Vasquez on 06-19-2022 Hemoglobin (Bld) [Mass/Vol] 13.1 g/dL 11.8-15.4 [facility] High Sensitive CRPon 023 High Sensitive [...] for estimation of CVD risk. PERFORMED BY: [place] [address] PATHOLOGIST SOLAR PHOTOVOLTA[employer] CREW LEAD PALOMO WESLEY M.D. Performed By: #### C KMB, LIPID, CMP, CK, HSCRP, BNP, THYROID SC, CBC #### [address] Laboratory - Chemistry and C hemistry - challengeOrdered By: Jes Vasquez on 06-19-2022 GFR/1.73 sq M.predicted MDRD (S/P/Bld) [Vol rate/Area] mL/min/{1.73_m2} [facility] Leukocytes [#/volume] correc ricardo for nucleated erythrocytes in Blood by Automated counOrdered By: Jes Vasquez on 06-19-2022 WBC corrected for nucl RBC Auto (Bld) [#/Vol] 8.2 10*3/uL 3.8-11.6 [facility] Lipid Panelon 06-19-2022 Cholesterol [Mass/Vol] 190 mg/dL Normal 140-200 [facility] Comment on above: Order Comment: Reaso n for Exam Other chest pain;Primary hypertension Result Comment: Chol less than 200 mg/dl low risk Chol 201-239 mg/dl borderline risk Chol 240 mg/dl and greater high risk Performed By: #### C KMB, LIPID, CMP, CK, HSCRP, BNP, THYROID SC, CBC #### [address] Cholesterol in HDL [Mass/Vol] 68 mg/dL Normal 35-85 [facility] Comment on above: Order Comment: Reaso n for Exam Other chest pain;Primary hypertension Result Comment: HDL CHOL ATP-III CLASSIFICATION Cardiovascular Risk HDL > or equal to 60 mg/dL LOW HDL < 40 mg/dL HIGH Performed By: #### C KMB, LIPID, CMP, CK, HSCRP, BNP, THYROID SC, CBC #### [facility] [address] Cholesterol.total/Chol esterol in HDL [Mass ratio] 2.8 {ratio} Normal <5.0 [facility] Comment on above: Order Comment: Reaso n for Exam Other chest pain;Primary hypertension Performed By: #### C KMB, LIPID, CMP, CK, HSCRP, BNP, THYROID SC, CBC #### [facility] [address] LDL Cholesterol,Calculated 74 mg/dL Normal 0-100 [facility] Comment on above: Order Comment: Reaso n for Exam Other chest pain;Primary hypertension Result Comment: LDL ATP III CLASSIFICATION LDL less than 100 mg/dL Optimal LDL 100-129 mg/dL Near or above optimal LDL 130-159 mg/dL Borderline high LDL 160-189 mg/dL High LDL greater than 189 mg/dL Very high Performed By: #### C KMB, LIPID, CMP, CK, HSCRP, BNP, THYROID SC, CBC #### [facility] [facility] [address] Triglyceride w/Reflex 241 mg/dL High 0-149 [facility] Comment on above: Order Comment: Reaso [...] CK, HSCRP, BNP, THYROID SC, CBC #### [facility] [address] VLDL CHOLESTEROL 48 mg/dL [facility] Comment on above: Order Comment: Reaso n for Exam Other chest pain;Primary hypertension Performed By: #### C KMB, LIPID, CMP, CK, HSCRP, BNP, THYROID SC, CBC #### [facility] [address] Lymphocytes Auto (Bld) [#/Vo l]Ordered By: Jes Vasquez on 06-19-2022 Lymphocytes (Bld) [#/Vol] 2.5 10*3/uL 1.00-4.8 [facility] Lymphocytes/100 WBC Auto (Bl d)Ordered By: Jes Vasquez on 06-19-2022 Lymphocytes/100 WBC (Bld) 30.3 % . [facility] MCH Auto (RBC) [Entitic mass ]Ordered By: Jes Vasquez on 06-19-2022 MCH (RBC) [Entitic mass] 33.2 pg 24.7-34.3 [facility] MCHC Auto (RBC) [Mass/Vol]Or dered By: eJs Vasquez on 06-19-2022 MCHC (RBC) [Mass/Vol] 33.4 g/dL 32.0-35.0 [facility] MCV Auto (RBC) [Entitic vol] Ordered By: Jes Vasquez on 06-19-2022 MCV (RBC) [Entitic vol] 99.5 fL 80-100 [facility] Monocytes Auto (Bld) [#/Vol] Ordered By: Jes Vasquez on 06-19-2022 Monocytes (Bld) [#/Vol] 1.0 10*3/uL 0.0-0.8 [facility] Monocytes/100 WBC Auto (Bld) Ordered By: Jes Vasquez on 06-19-2022 Monocytes/100 WBC (Bld) 11.6 % . [facility] Natriuretic peptide B [Mass/ Vol]Ordered By: Jes Vasquez on 06-19-2022 Natriuretic peptide B (Bld) [Mass/Vol] 87.0 pg/mL 5-100 [facility] Neutrophils Auto (Bld) [#/Vo l]Ordered By: Jes Vasquez on 06-19-2022 Neutrophils (Bld) [#/Vol] 4.5 10*3/uL 1.8-7.7 [facility] Neutrophils/100 WBC Auto (Bl d)Ordered By: Jes Vasquez on 06-19-2022 Neutrophils/100 WBC (Bld) 54.4 % . [facility] No Panel InformationOrdered By: Jes Vasquez on 06-19-2022 Pharmacy Creatinine Clearance (Chem N/A [facility] Nucleated erythrocytes [Pres ence] in Blood by Automated countOrdered By: Jes Vasquez on 06-19-2022 Nucleated RBC Auto Ql (Bld) 0.2 /100{WBC} 0-0.5 [facility] Platelet mean volume Auto (B ld) [Entitic vol]Ordered By: Jes Vasquez on 06-19-2022 Platelet mean volume (Bld) [Entitic vol] 10.2 fL 6.3-10.7 [facility] Platelets Auto (Bld) [#/Vol] Ordered By: Jes Vasquez on 06-19-2022 Platelets (Bld) [#/Vol] 297 10*3/uL 150-450 [facility] Potassium [Moles/volume] in Serum or PlasmaOrdered By: Jes Vasquez on 06-19-2022 Potassium [Moles/Vol] 4.3 mmol/L 3.5-5.1 [facility] Protein [Mass/volume] in Ser um or PlasmaOrdered By: Jes Vasquez on 06-19-2022 Protein [Mass/Vol] 6.3 g/dL 6.4-8.9 [facility] RBC Auto (Bld) [#/Vol]Ordere d By: Jes Vasquez on 06-19-2022 RBC (Bld) [#/Vol] 3.95 10*6/uL 3.60-5.00 [facility] Serum or plasma albumin/glob ulin mass ratioOrdered By: Jes Vasquez on 06-19-2022 Albumin/Globulin [Mass ratio] 1.7 {ratio} [facility] Serum or plasma anion gap de terminationOrdered By: Jes Vasquez on 06-19-2022 Anion gap [Moles/Vol] 10.9 mmol/L 6.0-15.0 [facility] Serum or plasma creatine kin ase MB (CKMB)/total creatine kinase (CK) ratio by calculaOrdered By: Jes Vasquez on 06-19-2022 CK.MB Calc [Catalytic fraction] 6.5 % 0.00-2.50 [facility] Serum or plasma high density lipoprotein (HDL) cholesterol measurementOrdered By: Jes Vasquez on 06-19-2022 Cholesterol in HDL [Mass/Vol] 68 mg/dL 35-85 [facility] Comment on above: HDL CHOL ATP-III CLA SSIFICATION Cardiovascular RiskHDL > or equal to 60 mg/dL LOWHDL < 40 mg/dL HIGH Serum or plasma total choles terol/high density lipoprotein (HDL) cholesterol mass ratOrdered By: Jes Vasquez on 06-19-2022 Cholesterol.total/Chol esterol in HDL [Mass ratio] 2.8 {ratio} <5.0 [facility] Sodium [Moles/volume] in Ser um or PlasmaOrdered By: Jes Vasquez on 06-19-2022 Sodium [Moles/Vol] 139 mmol/L 136-145 [facility] THYROID SCREENon 06-19-2022 Free T4 [Mass/Vol] 0.63 ng/dL Normal 0.61-1.12 [facility] Comment on above: Order Comment: Reaso n for Exam Other chest pain;Primary hypertension Performed By: #### C KMB, LIPID, CMP, CK, HSCRP, BNP, THYROID SC, CBC #### [facility] [address] TSH Qn 2.33 m[IU]/L Normal 0.45-5.33 [facility] Comment on above: Order Comment: Reaso n for Exam Other chest pain;Primary hypertension Result Comment: PERF ORMED BY: [facility] [address] [place] [address] PATHOLOGIST [employer]AR PHOTOVOLTAIC [employer]W LEAD PALOMO WESLEY M.D. Performed By: #### C KMB, LIPID, CMP, CK, HSCRP, BNP, THYROID SC, CBC #### [facility] [address] Thyrotropin [Units/volume] i n Serum or PlasmaOrdered By: Jes Vasquez on 06-19-2022 TSH Qn 2.33 m[IU]/L 0.45-5.33 [facility] Thyroxine (T4) free [Mass/vo lume] in Serum or PlasmaOrdered By: Jes Vasquez on 06-19-2022 Free T4 [Mass/Vol] 0.63 ng/dL 0.61-1.12 [facility] Triglyceride [Mass/volume] i n Serum or PlasmaOrdered By: Jes Vasquez on 06-19-2022 Triglyceride [Mass/Vol] 241 mg/dL 0-149 [facility] Comment on above: TRIG ATP III CLASSIF ICATIONTRIG less than 150 mg/dL NormalTRIG 150-199 mg/dL Borderline highTRIG 200-500 mg/dL High TRIG greater than 500 mg/dL Very highStandard traceable to the Center for Disease Conrtrol and Prevention (CDC) test method. Urea nitrogen [Mass/volume] in Serum or PlasmaOrdered By: Jes Vasquez on 06-19-2022 Urea nitrogen [Mass/Vol] 9 mg/dL 7-25 [facility] WBC Auto (Bld) [#/Vol]Ordere d By: Jes Vasquez on 06-19-2022 WBC (Bld) [#/Vol] 8.2 10*3/uL 3.8-11.6 [facility] CARDIAC BJORN ADMITon 023 CK [Catalytic activity/Vol] 54 U/L Normal 26-192 [facility] Comment on above: Performed By: #### C JORDAN CMP #### [facility] [address] [address] [address] Howard Guthrie CK.MB [Mass/Vol] 1.70 ng/mL Normal <=3.60 [facility] Comment on above: Performed By: #### C JORDAN, CMP #### [facility] [address] [address] [address] Howard Guthrie HSTROP <4.0 Normal 4.0-51.3 [facility] Comment on above: Result Comment: CUT- OFF POINTS HAVE BEEN ESTABLISHED BASED ON THE FOURTH UNIVERSAL DEFINITIONS OF MYOCARDIAL INFARCTION. THE UPPER REFERENCE LIMIT (URL) OF TROPONIN, DEFINED THE 99TH PERCENTILE OF cTnI DISTRIBUTION IN A REFERENCE POPULATION, HAS BEEN CONFIRMED THE DECISION THRESHOLD FOR AR DIAGNOSIS. Performed By: #### C MADM, CMP #### [facility] [address] [place], [place] [address] Dr. Howard Guthrie NYA 23 ng/mL Normal 9-82 [facility] Comment on above: Performed By: #### C MADM, CMP #### [facility] [address] [address] [address] Howard Guthrie CBC AUTO DIFFon 06-17-2022 BASO # 0.1 103/ul Normal 0.0-0.1 [facility] Comment on above: Performed By: #### C BC #### [facility] [address] [address] [address] Howard Guthrie Basophils/100 WBC (Bld) 1.0 % Normal 0.2-2.0 [facility] Comment on above: Performed By: #### C BC #### [facility] [address] [place] [address] Dr. Howard Guthrie EO # 0.2 103/ul Normal 0.0-0.7 [facility] Comment on above: Performed By: #### C BC #### [facility] [address] [place] [address] Dr. Howard Guthrie Eosinophils/100 WBC (Bld) 2.9 % Normal 0.9-7.0 [facility] Comment on above: Performed By: #### C BC #### [facility] [address] [place] [address] Dr. Howard Guthrie Erythrocyte distribution width (RBC) [Ratio] 12.7 % Normal 11.0-15.0 [facility] Comment on above: Performed By: #### C BC #### [facility] [address] [place] [address] Dr. Howard Guthrie Hematocrit (Bld) [Volume fraction] 42.5 % Normal 36.0-48.0 [facility] Comment on above: Performed By: #### C BC #### [facility] [address] [place] [address] Dr. Howard Guthrie Hemoglobin (Bld) [Mass/Vol] 14.7 g/dL Normal 12.0-16.0 [facility] Comment on above: Performed By: #### C BC #### [facility] [address] [place] [address] Dr. Howard Guthrie IG # 0.02 10e3/ul Normal 0.00-0.03 [facility] Comment on above: Performed By: #### C BC #### [facility] [address] [place] [address] Dr. Howard Guthrie IG % 0.3 % Normal 0.0-0.5 [facility] Comment on above: Performed By: #### C BC #### [facility] [address] [place] [address] Dr. Howard Guthrie LYMPH # 2.1 103/ul Normal 1.2-3.8 [facility] Comment on above: Performed By: #### C BC #### [facility] [address] [place] [address] Dr. Howard Guthrie Lymphocytes/100 WBC (Bld) 28.4 % Normal 20.5-60.0 [facility] Comment on above: Performed By: #### C BC #### [facility] [address] [place] [address] Dr. Howard Guthrie MANUAL DIFF REQ NO Normal [facility] Comment on above: Performed By: #### C BC #### [facility] [address] [place] [address] Dr. Howard Guthrie MCH (RBC) [Entitic mass] 33.1 pg Normal 26.7-34.0 [facility] Comment on above: Performed By: #### C BC #### [facility] [address] [place] [address] Dr. Howard Guthrie MCHC (RBC) [Mass/Vol] 34.6 g/dL Normal 29.9-35.2 [facility] Comment on above: Performed By: #### C BC #### [facility] [address] [place] [address] Dr. Howard Guthrie MCV (RBC) [Entitic vol] 95.7 fL Normal 81.0-99.0 [facility] Comment on above: Performed By: #### C BC #### [facility] [address] [place] [address] Dr. Howard Guthrie MONO # 1.0 103/ul Critically high 0.3-0.8 [facility] Comment on above: Performed By: #### C BC #### [facility] [address] [address] [address] Howard Guthrie Monocytes/100 WBC (Bld) 13.1 % Critically high 1.7-12.0 [facility] Comment on above: Performed By: #### C BC #### [facility] [address] [place] [address] Dr. Howard Guthrie NEUT # 4.0 103/ul Normal 1.4-6.5 [facility] Comment on above: Performed By: #### C BC #### [facility] [address] [place] [address] Dr. Howard Guthrie Neutrophils/100 WBC (Bld) 54.3 % Normal 43.0-75.0 [facility] Comment on above: Performed By: #### C BC #### [facility] [address] [place] [address] Dr. Howard Guthrie Platelet mean volume (Bld) [Entitic vol] 10.0 fL Normal 9.5-13.5 [facility] Comment on above: Performed By: #### C BC #### [facility] [address] [place] [address] Dr. Howard Guthrie PLT 343 103/ul Normal 150-450 [facility] Comment on above: Performed By: #### C BC #### [facility] [address] [place] [address] Dr. Howard Guthrie RBC 4.44 106/ul Normal 4.20-5.40 [facility] Comment on above: Performed By: #### C BC #### [facility] [address] [place] [address] Dr. Howard Guthrie WBC 7.4 103/ul Normal 4.0-11.0 [facility] Comment on above: Performed By: #### C BC #### [facility] [address] [place] [address] Dr. Howard Guthrie D-DIMERon 06-17-2022 D-DIMER 0.43 mg/L FEU Normal <=0.59 [facility] Comment on above: Performed By: #### D DIM #### [facility] [address] [place] [address] Dr. Howard Guthrie D-DIMER COMMENTS SEE BELOW Normal [facility] Comment on above: Result Comment: Incr [...] hospitalization. Performed By: #### D DIM #### [facility] [address] [place] [address] Dr. Howard Guthrie ER URINE PROFILEon 3 Bilirubin Ql (U) Negative Normal NEGATIVE [facility] Comment on above: Performed By: #### U MICRO, ERUR #### [facility] [address] [place] [address] Dr. Howard Guthrie Clarity (U) CLEAR Normal CLEAR [facility] Comment on above: Performed By: #### U MICRO, ERUR #### [facility] [address] [place] [address] Dr. Howard Guthrie Color (U) LT. YELLOW Normal YELLOW [facility] Comment on above: Performed By: #### U MICRO, ERUR #### [facility] [address] [place] [address] Dr. Howard Guthrie ERUAHD A micrscopic examination will be performed if indicated. Normal [facility] Comment on above: Performed By: #### U MICRO, ERUR #### [facility] [address] [place] [address] Dr. Howard Guthrie Glucose Ql (U) Negative Normal NEGATIVE [facility] Comment on above: Performed By: #### U MICRO, ERUR #### [facility] [address] [place] [address] Dr. Howard Guthrie Hemoglobin Ql (U) SMALL Abnormal NEGATIVE [facility] Comment on above: Performed By: #### U MICRO, ERUR #### [facility] [address] [address] [address] Howard Guthrie Ketones Ql (U) Negative Normal NEGATIVE [facility] Comment on above: Performed By: #### U MICRO, ERUR #### [facility] [address] [place] [address] Dr. Howard Guthrie LEUKOCYTES Negative Normal NEGATIVE [facility] Comment on above: Performed By: #### U MICRO, ERUR #### [facility] [address] [address] [address] Howard Guthrie Nitrite Ql (U) Negative Normal NEGATIVE [facility] Comment on above: Performed By: #### U MICRO, ERUR #### [facility] [address] [place] [address] Dr. Howard Guthrie pH (U) 7.0 [pH] Normal 5-9 [facility] Comment on above: Performed By: #### U MICRO, ERUR #### [facility] [address] [address] [address] Howard Guthrie SPEC GRAVITY 1.015 Normal 1.005-<=1.0 25 [facility] Comment on above: Performed By: #### U MICRO, ERUR #### [facility] [address] [place] [address] Dr. Howard Guthrie UA PROTEIN Negative Normal NEGATIVE/ TRACE [facility] Comment on above: Performed By: #### U MICRO, ERUR #### [facility] [address] [address] [address] Howard Guthrie UR MICRO IND INDICATED Normal [facility] Comment on above: Performed By: #### U MICRO, ERUR #### [facility] [address] [address] [address] Howard Guthrie Urobilinogen Qn (U) 0.2 {Abdiaziz'U}/dL Normal 0.2 - 1. 0 [facility] Comment on above: Performed By: #### U MICRO, ERUR #### [facility] [address] [place] [address] Dr. Howard Guthrie PROF 14(COMP METB)on 03-15-2 023 Albumin [Mass/Vol] 3.8 g/dL Normal 3.4-5.0 [facility] Comment on above: Performed By: #### C JORDAN, CMP #### [facility] [address] [address] [address] Howard Guthrie Albumin/Globulin [Mass ratio] 1.1 {ratio} Normal [facility] Comment on above: Performed By: #### C JORDAN, CMP #### [facility] [address] [address] [address] Howard Guthrie ALP [Catalytic activity/Vol] 96 U/L Normal 46-116 [facility] Comment on above: Performed By: #### C JORDAN, CMP #### [facility] [address] [address] [address] Howard Guthrie ALT [Catalytic activity/Vol] 19 U/L Normal 14-59 [facility] Comment on above: Performed By: #### C JORDAN, CMP #### [facility] [address] [address] [address] Howard Guthrie Anion gap [Moles/Vol] 11.2 mmol/L Normal [facility] Comment on above: Performed By: #### C JORDAN, CMP #### [facility] [address] [address] [address] Howard Guthrie AST [Catalytic activity/Vol] 19 U/L Normal 15-37 [facility] Comment on above: Performed By: #### Terrie ORTEGA, CMP #### [facility] [address] [address] [address] Howard Guthrie Bilirubin [Mass/Vol] 0.5 mg/dL Normal 0.2-1.0 [facility] Comment on above: Performed By: #### C JORDAN, CMP #### [facility] [address] [address] [address] Howard Guthrie Calcium [Mass/Vol] 8.8 mg/dL Normal 8.5-10.1 [facility] Comment on above: Performed By: #### Terrie ORTEGA, CMP #### [facility] [address] [address] [address] Howard Guthrie Chloride [Moles/Vol] 104 mmol/L Normal 98-107 [facility] Comment on above: Performed By: #### C JORDAN, CMP #### [facility] [address] [address] [address] Howard Guthrie CO2 [Moles/Vol] 24.1 mmol/L Normal 21.0-32.0 [facility] Comment on above: Performed By: #### C JORDAN, CMP #### [facility] [address] [place] [address] Dr. Howard Guthrie Creatinine [Mass/Vol] 0.73 mg/dL Normal 0.55-1.02 [facility] Comment on above: Performed By: #### C JORDAN, CMP #### [facility] [address] [place] [address] Dr. Howard Guthrie EGFR-AF UGANDAN >60 Normal >=60 [facility] Comment on above: Performed By: #### C JORDAN, CMP #### [facility] [address] [place] [address] Dr. Howard Guthrie EGFR-NON AF UGANDAN >60 Normal >=60 [facility] Comment on above: Performed By: #### C JORDAN, CMP #### [facility] [address] [place] [address] Dr. Howard Guthrie Globulin (S) [Mass/Vol] 3.6 g/dL Normal [facility] Comment on above: Performed By: #### C JORDAN, CMP #### [facility] [address] [place] [address] Dr. Howard Guthrie Glucose [Mass/Vol] 112 mg/dL Critically high 74-106 [facility] Comment on above: Performed By: #### C JORDAN, CMP #### [facility] [address] [place] [address] Dr. Howard Guthrie Potassium [Moles/Vol] 3.3 mmol/L Critically low 3.5-5.1 [facility] Comment on above: Performed By: #### C JORDAN, CMP #### [facility] [address] [place] [address] Dr. Howard Guthrie Protein [Mass/Vol] 7.4 g/dL Normal 6.4-8.2 [facility] Comment on above: Performed By: #### C JORDAN, CMP #### [facility] [address] [place] [address] Dr. Howard Guthrie Sodium [Moles/Vol] 136 mmol/L Normal 136-145 [facility] Comment on above: Performed By: #### C JORDAN, CMP #### [facility] [address] [place] [address] Dr. Howard Guthrie Urea nitrogen [Mass/Vol] 6.0 mg/dL Critically low 7.0-18.0 [facility] Comment on above: Performed By: #### C JORDAN, CMP #### [facility] [address] [place] [address] Dr. Howard Guthrie Urea nitrogen/Creatinine [Mass ratio] 8.2 mg/mg Normal [facility] Comment on above: Performed By: #### C JORDAN, CMP #### [facility] [address] [place] [address] Dr. Howard Guthrie TROPONIN, HIGH SENSITIVITYon 06-17-2022 HSTROP 4.6 pg/mL Normal 4.0-51.3 [facility] Comment on above: Result Comment: CUT- OFF POINTS HAVE BEEN ESTABLISHED BASED ON THE FOURTH UNIVERSAL DEFINITIONS OF MYOCARDIAL INFARCTION. THE UPPER REFERENCE LIMIT (URL) OF TROPONIN, DEFINED THE 99TH PERCENTILE OF cTnI DISTRIBUTION IN A REFERENCE POPULATION, HAS BEEN CONFIRMED THE DECISION THRESHOLD FOR AR DIAGNOSIS. Performed By: #### H STROPN #### [facility] [address] [place] [address] Dr. Howard Guthrie URINE MICROSCOPIC ONLYon BACTERIA TRACE Abnormal NONE SEEN [facility] Comment on above: Performed By: #### U MICRO, ERUR #### [facility] [address] [place] [address] Dr. Howard Guthrie Bacteria identified Cx Nom (U) NOT INDICATED Normal [facility] Comment on above: Performed By: #### U MICRO, ERUR #### [facility] [address] [place] [address] Dr. Howard Guthrie CAST NONE SEEN Normal NONE SEEN [facility] Comment on above: Performed By: #### U MICRO, ERUR #### [facility] [address] [place] [address] Dr. Howard Guthrie Crystals LM Nom (Urine sed) NONE SEEN Normal NONE SEEN [facility] Comment on above: Performed By: #### U MICRO, ERUR #### [facility] [address] [place] [address] Dr. Howard Guthrie Epithelial cells LM Ql (Urine sed) FEW Abnormal NONE SEEN /RARE [facility] Comment on above: Performed By: #### U MICRO, ERUR #### [facility] [address] [place] [address] Dr. Howard Guthrie MUCOUS TRACE Abnormal NONE SEEN [facility] Comment on above: Performed By: #### U MICRO, ERUR #### [facility] [address] [place] [address] Dr. Howard Guthrie RBC 2-5 Abnormal 0-2 [facility] Comment on above: Performed By: #### U MICRO, ERUR #### [facility] [address] [place] [address] Dr. Howard Guthrie WBC NONE SEEN Normal NONE SEEN [facility] Comment on above: Performed By: #### U MICRO, ERUR #### [facility] [address] [place] [address] Dr. Howard Guthrie XR CHEST 1 Von [...] NICK MARIE Date: 2022-06-17 12:26 Normal [facility] Tobacco Screening.on 022 Adult depression screening assessment No [facility] [address] DO Work Phone: Tobacco use status [facility]PH[facility] a) Yes [facility] 250 DO Work Phone: Tobacco Screening. Yes [facility] 250 DO Work Phone: Vital Signs Date Time Vital Sign Value Performing Clinician Tonja figueroa 08-10-2023 09:19-0400 Blood Pressure Location JESSHAMA HUNTER [facility] 08-10-2023 09:19-0400 Body temperature 98.24 [degF] JES ELSA [facility] 08-10-2023 09:19-0400 Diastolic blood pressure 78 mm[Hg] JES ELSA [facility] 08-10-2023 09:19-0400 Heart rate 80 /min JES ELSA [facility] 08-10-2023 09:19-0400 Respiratory rate 19 /min JES ELSA [facility] 08-10-2023 09:19-0400 Systolic blood pressure 136 mm[Hg] JES ELSA [facility] 03-22-2023 13:16-0500 Blood Pressure Location Ramone Garcia [facility] 03-22-2023 13:16-0500 Diastolic blood pressure 85 mm[Hg] Ramone Garcia [facility] 03-22-2023 13:16-0500 Heart rate 90 /min Ramone Garcia [facility] 03-22-2023 13:16-0500 SaO2% (BldA) [Mass fraction] 99 % Ramone Garcia [facility] 03-22-2023 13:16-0500 Systolic blood pressure 126 mm[Hg] Ramone Garcia [facility] 12-15-2022 13:20-0400 Body height 165.1 cm Loretta Javier Other Care Thread Other 12-15-2022 13:20-0400 Body mass index (BMI) [Ratio] 23.13 kg/m2 Loretta Javier Other Care Thread Other 12-15-2022 13:20-0400 Body temperature 98.1 [degF] Loretta Javier Other Care Thread Other 12-15-2022 13:20-0400 Body weight 63.05 kg Loretta Javier Other Care Thread Other 12-15-2022 13:20-0400 Diastolic blood pressure 76 mm[Hg] Loretta Javier Other Care Thread Other 12-15-2022 13:20-0400 Respiratory rate 18 /min Loretta Javier Other Care Thread Other 12-15-2022 13:20-0400 SaO2% (BldA) [Mass fraction] 98 % Loretta Javier Other Care Thread Other 12-15-2022 13:20-0400 Systolic blood pressure 128 mm[Hg] Loretta Javier Other Care Thread Other 10-14-2022 11:10-0400 Body height 165.1 cm Tanya Glover Other Care Thread Other 10-14-2022 11:10-0400 Body mass index (BMI) [Ratio] 23.39 kg/m2 Tanya Glover Other Care Thread Other 10-14-2022 11:10-0400 Body temperature 97.8 [degF] Tanya Glover Other Care Thread Other 10-14-2022 11:10-0400 Body weight 63.78 kg Tanya Glover Other Care Thread Other 10-14-2022 11:10-0400 Diastolic blood pressure 85 mm[Hg] Tanya Glover Other Care Thread Other 10-14-2022 11:10-0400 Respiratory rate 18 /min Tanya Glover Other Care Thread Other 10-14-2022 11:10-0400 SaO2% (BldA) [Mass fraction] 99 % Tanya Glover Other Care Thread Other 10-14-2022 11:10-0400 Systolic blood pressure 143 mm[Hg] Tanya Glover Other Care Thread Other 06-24-2022 09:32-0400 Body height 165.1 cm No PCP None [facility] DO Work Phone: 06-24-2022 09:32-0400 Body mass index (BMI) [Ratio] 24.63 kg/m2 No PCP None [facility] 250 DO Work Phone: 06-24-2022 09:32-0400 Body surface area Derived from formula 1.74 m2 No PCP None [facility] 250 DO Work Phone: 06-24-2022 09:32-0400 Body weight 67.13 kg No PCP None [facility] DO Work Phone: 06-24-2022 09:32-0400 Diastolic blood pressure 82 mm[Hg] No PCP None [facility] DO Work Phone: 06-24-2022 09:32-0400 Heart rate 88 /min No PCP None [facility] DO Work Phone: 06-24-2022 09:32-0400 Systolic blood pressure 124 mm[Hg] No PCP None [facility] DO Work Phone: 06-02-2021 15:09-0500 Diastolic blood pressure 98 mm[Hg] No PCP None [facility] DO Work Phone: 06-02-2021 15:09-0500 Systolic blood pressure 142 mm[Hg] No PCP None [facility] DO Work Phone: 06-02-2021 15:03-0500 Body height 165.1 cm No PCP None [facility] DO Work Phone: 06-02-2021 15:03-0500 Body mass index (BMI) [Ratio] 28.29 kg/m2 No PCP None [facility] 250 DO Work Phone: 06-02-2021 15:03-0500 Body surface area Derived from formula 1.85 m2 No PCP None [facility] 250 DO Work Phone: 06-02-2021 15:03-0500 Body weight 77.11 kg No PCP None [facility] DO Work Phone: 06-02-2021 15:03-0500 Diastolic blood pressure 90 mm[Hg] No PCP None [facility] DO Work Phone: 06-02-2021 15:03-0500 Heart rate 92 /min No PCP None [facility] DO Work Phone: 06-02-2021 15:03-0500 Systolic blood pressure 142 mm[Hg] No PCP None [facility] DO Work Phone: Encounters Encounter Date Encounter Type Care Provider Facility Start: 08-10-2023 End: 08-11-2023 ambulatory JES HUNTER [place] [place]: 08-10-2023 End: 08-11-2023 ambulatory JES HUNTER [place]: [place] Start: 08-10-2023 End: 08-10-2023 Lab Drop off JES HUNTER [facility] Start: 08-10-2023 End: 08-10-2023 Patient encounter procedure [facility]UN[facility] Start: 06-09-2023 End: 06-09-2023 ambulatory Jes Vasquez Facility:[facility] Start: 04-27-2023 ambulatory Ramone Garcia Fac ility:[facility] Start: 04-16-2023 End: 04-17-2023 ambulatory Ramone Garcia [place] Start: 04-16-2023 End: 04-16-2023 Patient encounter procedure Ramone Garcia [facility] Start: 04-01-2023 End: 04-01-2023 ambulatory PHYSICIAN NO FAMILY Facility:[facility] Start: 03-22-2023 End: 03-23-2023 ambulatory Ramone Garcia [place] Start: 03-22-2023 End: 03-22-2023 Patient encounter procedure Ramone Garcia [facility] Start: 12-15-2022 End: 12-15-2022 ambulatory Loretta Javier Other Care Thread Other Start: 12-15-2022 Office outpatient visit 25 minutes Loretta Javier [facility] Start: 10-14-2022 End: 10-14-2022 ambulatory Tanya Belen Other Care Thread Other Start: 10-14-2022 Office outpatient visit 15 minutes Tanya Belen [facility] Start: 08-14-2022 ambulatory Ms. Jes Vasquez Facility: Start: 08-14-2022 [facility], Provider: Nadia Franks, Status: Pen, Time: 1:00 PM No PCP None [facility] DO Work Phone: Start: 08-06-2022 Rx Renewal No PCP None [facility] DO Work Phone: Start: 06-24-2022 Office outpatient visit 15 minutes No PCP None [facility] DO Work Phone: Start: 06-24-2022 ambulatory Ms. Nadia Tinajero Migel Morales h Facility: Start: 06-19-2022 End: 06-19-2022 ambulatory PHYSICIAN NO FAMILY Facility:[facility] Start: 06-19-2022 End: 06-19-2022 ambulatory PHYSICIAN NO [facility] Work Phone: Start: 06-19-2022 End: 06-19-2022 Departed Referred PHYSICIAN NO [facility] Start: 06-17-2022 End: 06-17-2022 ambulatory RIVER MARTE . Facility:[facility] Start: 11-10-2021 ambulatory Ms. Nadia Lainez Anrdew h Facility: Start: 10-27-2021 Rx Renewal No PCP None [facility] 250 DO Work Phone: Start: 06-02-2021 Office outpatient visit 25 minutes No PCP None [facility] 250 DO Work Phone: Procedures Date [...] Nadia Franks, Status: Pen, Time: 1:00 PM [facility] 250 DO Work Phone: Start: 11-10-2021 [facility], Provider: Nadia Franks, Status: Pen, Time: 3:00 PM [facility], Provider: Nadia Franks, Status: Pen, Time: 3:00 PM [facility] Work Phone: Start: 06-30-2021 [facility], Provider: Nadia Franks, Status: Pen, Time: 8:00 AM [facility], Provider: Nadia Franks, Status: Pen, Time: 8:00 AM [facility] DO Work Phone: Immunizations Immunization Date Immunization Notes Care Provider Jennifer lacy 03-25-2021 influenza, injectabl e, quadrivalent, preservative free No PCP None [facility] 01-05-2020 influenza, injectabl e, quadrivalent, preservative free No PCP None [facility] DO Work Phone: 01-06-2019 influenza, injectabl e, quadrivalent, preservative free [facility] Payers Date Payer Category Payer Self-pay [id number] 1970 Unknown [id number] 1970 Unknown [id number] 356 1971 Unknown [id number]. 356 1971 Unknown [id number]. 356 1971 Unknown [id number]. 727 1971 Unknown [id number]. 727 1971 Unknown [id number] [id number]. 727 1971 Unknown [id number] [id number]. 727 1958 Medicaid [id number] Private Health Insurance [id number] Unknown [id number] Unknown [facility] PL[facility] Unknown [id number] Unknown [id number] [id number]. 531 Unknown [id number]. 531 Unknown [id number]. 531 Social History Date Type Detail Facility Tobacco smoking stat [facility] Unknown if ever smoked [facility] Start: 1970 Sex Assigned At Female F [facility] Illicit drug use Illicit drug use [facility] DO Work Phone: Comment on above: 1 pack per daily.; Start: 05-26-2021 Tobacco smoking stat [facility] Ex-smoker (finding) [facility] Sex Assigned At [facility] Start: 03-22-2023 End: 08-10-2023 Tobacco smoking status Light tobacco smoker (finding) [facility] Tobacco smoking status Never [facility] Medical Equipment Procedure Code Equipment Code Equipment Origin al Text Equipment Identifier Dates Thoracotomy Staple line-reinforcement strip [id number] FDA Start: 03-26-2021 Thoracotomy Surgical adhesive/sealant, human-derived ()[id number] FDA Start: 03-26-2021 Goals Date Patient Goal Desired Activity /State Functional Status Date Assessment Result Facility 08-10-2023 Functional Status N/A [facility] 03-22-2023 Functional Status No [facility] Clinical Notes 10-14-2022 to 08-10-2023 Note Date & Type Note Facility 08-10-2023 Evaluation + Plan note Diagnostic Tests PendingUrine Cytology ([facility]) 08/10/23 [facility] 08-10-2023 Note Chief Complaint Jes Gomes CNP referral HPI Staff Evaluation requested by Jes Vasquez CNP due to Microscopic Hematuria & Renal Cyst. PT is a new pt. Last seen in our office by LATISHA 01/17/20 due to flank pain, hematuria, nocturia, [...] has had dark urine. Bladder/renal US 04/01/23 [facility] - No renal mass, stone or hydro. Unremarkable bladder. KUB 04/01/23 [facility] - No obvious urinary tract calculi. AMOL 08/02/23 [facility] - No renal stones or hydro. Unremarkable bladder. KUB 08/02/23 [facility] - No urinary tract calculi. Educated [...] upon conclusion of the workup. -CTU at [facility] now -Urine sample to be sent [...] pain (R10.9: Unspecified abdominal pain) AMOL/KUB 08/02/23 [facility] - neg. States pain is in her [...] Cyst of kidney, acquired) Bladder/renal US 04/01/23 [facility] - Small L renal cyst. 06/09/23 - BUN 14. Cr 0.63. GFR >60. -Simple cysts do not require follow-up Ordered: CT Urogram 5. Smoker (F17.200: Nicotine dependence, unspec (more content not included)... [facility] Comment on above: Result Comment: Elec tronically [...] require a prescription. You can also purchase lxsi-ozu-mvlarng medicines. Medicines may have nicotine in them [...] and encouragement. Call telephone quitlines, such as 6-441-ZVSN-NOW, reach out to support groups, or work [...] provider. Document Revised: 03/13/2022 Document Reviewed: 03/13/2022 [employer] Patient Education 2022 [employer]. 08/10/2023 10:11:31 Cystoscopy Cystoscopy Cystoscopy is a [...] including vitamins, herbs, eye drops, creams, and ztac-jrp-ovfpuzn medicines. Any problems you or family members [...] provider tells you to take them. Taking aook-ouw-mipnsat medicines, vitamins, herbs, and supplements. Tests You [...] Follow these instructions at home: Medicines Take mwgf-zss-wvolhtk and prescription medicines only as told by [...] provider. Document Revised: 12/03/2021 Document Reviewed: 11/01/2020 [employer] Patient Education 2022 [employer]. Follow Up Care 04/30/2023 12:48:57 With:JES HUNTER PA-C, URL Address: [address] [place] [place] [address] [phone] When: Unknown [facility] 04-17-2023 Note Echocardiology Procedure Exam Date/Time Accession # Ordering Echo Transthoracic 04/16/2023 14:37 EST [id number] Jose PATRICK, Ramone Butt CPT code 61715 [id number] Reason for Exam (Echo Transthoracic Complete) I25.10;CAD Coronary artery disease Report Version: 1 Study ID: [id number] [facility] [address] [place] [address] Adult Echocardiogram Report Name: MEGHANA CRAIG Study Date: 04/16/2023, 1: 10 PM Patient Location: [facility] : 1970 (MM/DD/YYYY) Gender: Female Age: 52 [...] Signed by: Ramone Garcia MD Transcribed by: [facility] Technologist: GARRY Bravo [facility] 12-15-2022 Evaluation note Encounter Date Diagnosis Assessment [...] understanding and is agreeable to treatment plan Care Thread Other 07-12-2023 Evaluation note* Encounter Date Diagnosis [...] - Z20.822) Oct, Bronchitis (ICD-10 - J40) Care Thread Other Evaluation + Plan note Future Appointments Appointment Date:05/13/2023 03:45:00 PM Scheduled Provider:Ramone Garcia MD Location:[facility]iology [facility] Appointment Type:Cardiology Follow Up ([facility]) Future Scheduled Tests Radiology* NM Myocardial Spect Rest/Stress 1 Day 03/22/23 * Echo Transthoracic [facility] Future Appointments Appointment Date:05/13/2023 03:45:00 PM Scheduled Provider:Ramone Garcia MD Location:[facility]Cardiology Clinic Appointment Type:Cardiology Follow Up ([facility]) [facility] note[facility] assessment information available [facility] Work Phone: Hisxxmo general Narrative - Reported* Type Description Date Surgical History hysterectomy Surgical History lumbar Care Thread Other History of Present illness Narrative* The [...] medication regimen. She denies medication side effects. [facility] DO Work Phone: Hospital course Narrative No data available for this section [facility] No data available for this section [facility] No data available for this section [facility] Assessments No Assessments Information Available [...] dyspnea. * Patient was recently hospitalized at [facility]. The patient was seen in Cardiology consult with subsequent cardiovascular management by [facility]. Hospitalization records have been reviewed. * Reason for Cardiology Consultation: chest pain (presented with spontaneous PTX) * Consulting [employer] Machine Feeder: Dr. Lopez * Cardiovascular testing: cardiac cath [...] evaluation. * Last week she presented to [facility] due to chest pain and dizziness. [...] and fluttering . 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 Due to blood pressure and palpitations [...] Primary Care Provider Active Jes Vasquez , FOREST RANGER-C Attending Provide r Active Goals (unrecognized section [...] CREATED AUTHOR AUTHOR'S ORGANIZ ATION 07/29/2022 [facility] DATE CREATED AUTHOR AUTHOR'S ORGANIZ ATION 08/16/2022 [facility] DATE CREATED AUTHOR AUTHOR'S ORGANIZ ATION 06/18/2023 [facility] DATE CREATED AUTHOR AUTHOR'S ORGANIZ ATION 08/31/2023 [facility] REASON FOR VISIT (unrecogniz ed [...] BE BASED ON THE PRIMARY CLINICAL RECORDS. [facility] [employer] provides no warranty or guarantee of the accuracy or completeness of information in this document.
[2023-09-09 07:04] LABS: Basophils Absolute Auto 0.1 10^3/uL (0.0-0.1); Basophils Percent Auto 0.6 % (0.2-2.0); Eosinophils Absolute Auto 0.2 10^3/uL (0.0-0.7); Eosinophils Percent Auto 1.9 % (0.9-7.0); Hematocrit 39.3 % (36.0-48.0); Hemoglobin 12.9 g/dL (12.0-16.0); Immature Granulocytes Abs Auto 0.03 10^3/uL (0.00-0.03); Immature Granulocytes Pct Auto 0.4 % (0.0-0.5); Lymphocytes Absolute Auto 2.5 10^3/uL (1.2-3.8); Lymphocytes Percent Auto 29.6 % (20.5-60.0); Mean Corpuscular HGB Conc 32.8 g/dL (29.9-35.2); Mean Corpuscular Hemoglobin 32.6 pg (26.7-34.0); Mean Corpuscular Volume 99.2 fL (81.0-99.0); Monocytes Absolute Auto 1.2 10^3/uL (0.3-0.8); Monocytes Percent Auto 14.3 % (1.7-12.0); Neutrophils Absolute Auto 4.4 10^3/uL (1.4-6.5); Neutrophils Percent Auto 53.2 % (43.0-75.0); Platelet Count 331 10^3/uL (150-450); Red Blood Count 3.96 10^6/uL (4.20-5.40); Red Cell Distribution Width 13.7 % (11.0-15.0); White Blood Count 8.3 10^3/uL (4.0-11.0)
[2023-09-09 07:05] LABS: Bilirubin Urine NEGATIVE (NEGATIVE); Blood Urine SMALL (NEGATIVE); Clarity Urine CLEAR (CLEAR); Color Urine LT. YELLOW (YELLOW); Glucose Urine UA NEGATIVE (NEGATIVE); Ketones Urine NEGATIVE (NEGATIVE); Leukocyte Esterase Urine NEGATIVE (NEGATIVE); Nitrite Urine NEGATIVE (NEGATIVE); Protein Urine NEGATIVE (NEG/TRACE); Urobilinogen Urine 0.2 EU/dL (0.2-1.0)
[2023-09-09 07:23] LABS: Percent Iron Saturation 18.6 %
[2023-09-09 07:34] LABS: Alanine Aminotransferase 41 U/L (14-59); Albumin Globulin Ratio 0.8; Albumin Level 3.3 g/dL (3.4-5.0); Alkaline Phosphatase 85 U/L (46-116); Anion Gap 13.4; Aspartate Amino Transferase 18 U/L (15-37); BUN Creatinine Ratio 22.8; Bilirubin Total 0.3 mg/dL (0.2-1.0); Calcium 8.6 mg/dL (8.5-10.1); Carbon Dioxide 27.6 mmol/L (21.0-32.0); Chloride 104 mmol/L (98-107); Chol HDL Ratio 3.2; Cholesterol 181 mg/dL (<=200); Estimated GFR (African America >60 (>=60); Estimated GFR (Non-African Ame >60 (>=60); Globulin 3.9 g/dL; Glucose 102 mg/dL (74-106); HDL Cholesterol 57 mg/dL (40-60); Sodium 141 mmol/L (136-145); Total Protein 7.2 g/dL (6.4-8.2); Triglycerides 135 mg/dL (<=150)
[2023-09-10 08:11] LABS: Estradiol 8.6 pg/mL (.); FSH 51.6 mIU/mL (.); Luteinizing Hormone(LH) 37.3 mIU/mL (.)
== END 2023-09-09 06:37 | disposition home or self-care (01) ==
LOC: LAB 06:36
PROVIDERS: Visit Provider Nurse Practitioner Family
DX: E61.1 Iron deficiency (principal); R23.2 Flushing; I10 Essential (primary) hypertension; E78.1 Pure hyperglyceridemia; R31.29 Other microscopic hematuria; E55.9 Vitamin D deficiency, unspecified
CPT/HCPCS: 36415; 80053; 80061; 81003; 82306; 82670; 82728; 83001; 83002; 83540; 83550; 84443; 84481; 85025; 87086

== ENCOUNTER 2023-09-10 20:33 | Emergency (ER) | payer OTHER, SELFPAY ==
[2023-09-10] VITALS (10 sets, daily range): BP systolic 113–143; BP diastolic 60–96; PULSE 75–84; TEMP 37.1; O2SAT 95–98; BMI 23.3
--- OUTSIDE RECORDS SUMMARY | 2023-09-10 20:45 | XMS_ITS | CCD ---
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 Name Role Phone None, No PCP Unavailable [...] Javier Unavailable JES VASQUEZ Primary Care Physician [phone] NO FAMILY, PHYSICIAN Primary Care Unavailable Jes Vasquez Admitting U Jes Belcher Attending U Jes Belcher Admitting U Jes Belcher Primary Care U Jes Belcher Attending U bharti NO FAMILY, PHYSICIAN Primary Care Unavailable Jes Vasquez Admitting U Jes Belcher Attending U Ramone Aceves Attending Unavaila JES Ramesh Referring Ramone Kasper Admitting Ramone Xiao Attending Ramone Xiao Referring Ramone Xiao Admitting aRmone Xiao Consulting Ramone Xiao Consulting Ramone Xiao Consulting JES Lucero Admitting JES Fall Attending JES Fall Attending JES Mcmanus Referring Unavailab le Unavailable Unavailable Unavailable Allergies Allergy Classification Reported Allergen(s) Allergy Type Date of Onset Reaction(s) Facility Opioid Agonists (1 source) Codeine; Translations: [codeine] Drug Allergy [facility] Repository (15 sources) Codeine; Translations: [codeine] Drug Allergy 3 hives, Eruption of skin present [facility] Medications Current Medications Medication Drug Class(es) Dates [...] Nocturia, # 60 tab(s), Refills(s) 3, Pharmacy: [facility], 165, cm, 01/17/20 11:18:00 [...] Drug Class(es) Dates Sig (Normalized) Sig (Original) [id number] 200 actuat albuterol 0.09 mg/actuat metered dose [...] sources) Coronary atherosclerosis; Translations: [Coronary atherosclerosis of tolowa dee-ni' coronary artery] 12-30-2021 Chronic Disorders of lipid [...] 06-09-2023 Episodic Other aftercare (1 source) Other meterman (current) drug therapy; Translations: [Other meterman (current) drug therapy] Onset: 06-09-2023 Episodic Other [...] CT Reporton 08-31-2023 RAD - CT Report [id number]#1.00 TIFF Normal [facility] Lab Reportson 08-17-2023 Lab Reports [id number] 03 [id number]#1.0 0TIFF Normal [facility] Urine Cytology ([facility])on 0 08-17-2023 Microscopic exam Cytology (U) [Interp] Diagnosis Info Invalid Interpretation Code [facility] Comment on above: Result Comment: A:Ur ine,Urine:Voided Interpretation - MicroScopic Description - Adequacy - Gross Description Site ID:A color Light Yellow fixative Alcohol Specimen designated Urine received in alcohol preservative and labeled with the patient?s name, consists of 60ml clear light yellow fluid. Electronically signed by : on: 08/17/2023 14:12:20 Performed By: #### 1 [id number] ####[facility] [id number] [place] [address] Lab Reportson 08-11-2023 Lab Reports [id number] 03 [id number]#1.00 TIFF Normal [facility] Physician Referralon 024 Physician Referral [id number] 03 [id number]#1.0 0TIFF Normal [facility] RAD - MISCon 08-11-2023 RAD - MISC [id number] 03 [id number]#1.0 0TIFF Normal [facility] RAD - MISC [id number]#1.0 0TIFF Normal [facility] RAD - Ultrasound Reporton RAD - Ultrasound Report [id number] 0TIFF Normal [facility] RAD - Ultrasound Report [id number]#1.0 0TIFF Normal [facility] Screenson 08-11-2023 Screens [id number]#1.0 0TIFF Normal [facility] Ambulatory Visit Summaryon 0 08-10-2023 Ambulatory Visit [...] JES HUNTER PA-C, URL When: Where: [address] [place] [address] [id number] Medications What How Much When Instructions Unchanged [...] make many (more content not included)... Normal [facility] Patient Educationon 08-10-19 Patient Education Pulmonary Medicine [...] require a prescription. You can also purchase cfrm-uoy-twtdjvk medicines. Medicines may have nicotine in them [...] and encouragement. Call telephone quitlines, such as 3-368-JPCD-NOW, reach out to support groups, or work [...] quit smoki (more content not included)... Normal [facility] Urine Cytology ([facility])on 08-10-2023 Method of Extraction Voided Normal [facility] Comment on above: Performed By: #### 1 [id number] ####[facility] [id number] [place] [address] Number of Jars 1 Invalid Interpretation Code [facility] Comment on above: Performed By: #### 1 [id number] ####[facility] [id number] [place] [address] Specimen Urine Normal [facility] Comment on above: Performed By: #### 1 [id number] ####[facility] [address] [place] [address] Type of Service Technical Only Normal [facility] Comment on above: Performed By: #### 1 [id number] ####[facility] [id number] [place] [address] Complete Blood Count Auto Di ffon 06-09-2023 Basophils (Bld) [#/Vol] 0.0 10*3/uL Normal 0.0-0.2 [facility] Comment on above: Order Comment: Reaso n for Exam Other chest pain;Primary hypertension Result Comment: PERF ORMED BY: [place] [address] PATHOLOGIST SEQUINS SPOOLER PALOMO WESLEY M.D. Performed By: #### C KMB, LIPID, CMP, CK, HSCRP, BNP, THYROID SC, CBC #### [facility] [address] Basophils/100 WBC (Bld) 0.3 % Normal . [facility] Comment on above: Order Comment: Reaso n for Exam Other chest pain;Primary hypertension Performed By: #### C KMB, LIPID, CMP, CK, HSCRP, BNP, THYROID SC, CBC #### [facility] [address] [place] [address] [place] Eosinophils (Bld) [#/Vol] 0.1 10*3/uL Normal 0.0-0.45 [facility] Comment on above: Order Comment: Reaso n for Exam Other chest pain;Primary hypertension Performed By: #### C KMB, LIPID, CMP, CK, HSCRP, BNP, THYROID SC, CBC #### [address] Eosinophils/100 WBC (Bld) 1.7 % Normal . [facility] Comment on above: Order Comment: Reaso n for Exam Other chest pain;Primary hypertension Performed By: #### C KMB, LIPID, CMP, CK, HSCRP, BNP, THYROID SC, CBC #### [address] Erythrocyte distribution width (RBC) [Ratio] 13.2 % Normal 11.9-15.3 [facility] Comment on above: Order Comment: Reaso n for Exam Other chest pain;Primary hypertension Performed By: #### C KMB, LIPID, CMP, CK, HSCRP, BNP, THYROID SC, CBC #### [address] Hematocrit (Bld) [Volume fraction] 41.9 % Normal 34.0-46.4 [facility] Comment on above: Order Comment: Reaso n for Exam Other chest pain;Primary hypertension Performed By: #### C KMB, LIPID, CMP, CK, HSCRP, BNP, THYROID SC, CBC #### [address] Hemoglobin (Bld) [Mass/Vol] 14.0 g/dL Normal 11.8-15.4 [facility] Comment on above: Order Comment: Reaso n for Exam Other chest pain;Primary hypertension Performed By: #### C KMB, LIPID, CMP, CK, HSCRP, BNP, THYROID SC, CBC #### [address] Lymphocytes (Bld) [#/Vol] 2.2 10*3/uL Normal 1.00-4.8 [facility] Comment on above: Order Comment: Reaso n for Exam Other chest pain;Primary hypertension Performed By: #### C KMB, LIPID, CMP, CK, HSCRP, BNP, THYROID SC, CBC #### [address] Lymphocytes/100 WBC (Bld) 30.2 % Normal . [facility] Comment on above: Order Comment: Reaso n for Exam Other chest pain;Primary hypertension Performed By: #### C KMB, LIPID, CMP, CK, HSCRP, BNP, THYROID SC, CBC #### [address] MCH (RBC) [Entitic mass] 32.8 pg Normal 24.7-34.3 [facility] Comment on above: Order Comment: Reaso n for Exam Other chest pain;Primary hypertension Performed By: #### C KMB, LIPID, CMP, CK, HSCRP, BNP, THYROID SC, CBC #### [address] MCV (RBC) [Entitic vol] 98.5 fL Normal 80-100 [facility] Comment on above: Order Comment: Reaso n for Exam Other chest pain;Primary hypertension Performed By: #### C KMB, LIPID, CMP, CK, HSCRP, BNP, THYROID SC, CBC #### [address] Mean Corpuscular HGB Conc 33.3 g/dL Normal 32.0-35.0 [facility] Comment on above: Order Comment: Reaso n for Exam Other chest pain;Primary hypertension Performed By: #### C KMB, LIPID, CMP, CK, HSCRP, BNP, THYROID SC, CBC #### [address] Monocytes (Bld) [#/Vol] 0.8 10*3/uL Normal 0.0-0.8 [facility] Comment on above: Order Comment: Reaso n for Exam Other chest pain;Primary hypertension Performed By: #### C KMB, LIPID, CMP, CK, HSCRP, BNP, THYROID SC, CBC #### [address] Monocytes/100 WBC (Bld) 10.9 % Normal . [facility] Comment on above: Order Comment: Reaso n for Exam Other chest pain;Primary hypertension Performed By: #### C KMB, LIPID, CMP, CK, HSCRP, BNP, THYROID SC, CBC #### [place] [id number] [place] Neutrophils (Bld) [#/Vol] 4.1 10*3/uL Normal 1.8-7.7 [facility] Comment on above: Order Comment: Reaso n for Exam Other chest pain;Primary hypertension Performed By: #### C KMB, LIPID, CMP, CK, HSCRP, BNP, THYROID SC, CBC #### [facility] [address] Neutrophils/100 WBC (Bld) 56.9 % Normal . [facility] Comment on above: Order Comment: Reaso n for Exam Other chest pain;Primary hypertension Performed By: #### C KMB, LIPID, CMP, CK, HSCRP, BNP, THYROID SC, CBC #### [address] NRBC% 0.1 /100{WBC} Normal 0-0.5 [facility] Comment on above: Order Comment: Reaso n for Exam Other chest pain;Primary hypertension Performed By: #### C KMB, LIPID, CMP, CK, HSCRP, BNP, THYROID SC, CBC #### [address] Platelet mean volume (Bld) [Entitic vol] 9.0 fL Normal 6.3-10.7 [facility] Comment on above: Order Comment: Reaso n for Exam Other chest pain;Primary hypertension Performed By: #### C KMB, LIPID, CMP, CK, HSCRP, BNP, THYROID SC, CBC #### [place] [address] [place] Platelets (Bld) [#/Vol] 314 10*3/uL Normal 150-450 [facility] Comment on above: Order Comment: Reaso n for Exam Other chest pain;Primary hypertension Performed By: #### C KMB, LIPID, CMP, CK, HSCRP, BNP, THYROID SC, CBC #### [address] RBC (Bld) [#/Vol] 4.26 10*6/uL Normal 3.60-5.00 [facility] Comment on above: Order Comment: Reaso n for Exam Other chest pain;Primary hypertension Performed By: #### C KMB, LIPID, CMP, CK, HSCRP, BNP, THYROID SC, CBC #### [facility] [address] WBC (Bld) [#/Vol] 7.2 10*3/uL Normal 3.8-11.6 [facility] Comment on above: Order Comment: Reaso n for Exam Other chest pain;Primary hypertension Performed By: #### C KMB, LIPID, CMP, CK, HSCRP, BNP, THYROID SC, CBC #### [facility] [address] Comprehensive Metabolic Pane bryon 06-09-2023 Albumin [Mass/Vol] 4.2 g/dL Normal 3.5-5.7 [facility] Comment on above: Order Comment: Reaso n for Exam Other chest pain;Primary hypertension Performed By: #### C KMB, LIPID, CMP, CK, HSCRP, BNP, THYROID SC, CBC #### [address] Albumin/Globulin [Mass ratio] 1.4 {ratio} Normal [facility] Comment on above: Order Comment: Reaso n for Exam Other chest pain;Primary hypertension Performed By: #### C KMB, LIPID, CMP, CK, HSCRP, BNP, THYROID SC, CBC #### [address] ALP [Catalytic activity/Vol] 87 U/L Normal 34-104 [facility] Comment on above: Order Comment: Reaso n for Exam Other chest pain;Primary hypertension Performed By: #### C KMB, LIPID, CMP, CK, HSCRP, BNP, THYROID SC, CBC #### [facility] [address] ALT [Catalytic activity/Vol] 10 U/L Normal 7-52 [facility] Comment on above: Order Comment: Reaso n for Exam Other chest pain;Primary hypertension Performed By: #### C KMB, LIPID, CMP, CK, HSCRP, BNP, THYROID SC, CBC #### [facility] [address] Anion gap [Moles/Vol] 12.9 mmol/L Normal 6.0-15.0 [facility] Comment on above: Order Comment: Reaso n for Exam Other chest pain;Primary hypertension Performed By: #### C KMB, LIPID, CMP, CK, HSCRP, BNP, THYROID SC, CBC #### [facility] [address] AST [Catalytic activity/Vol] 12 U/L Low 13-39 [facility] Comment on above: Order Comment: Reaso n for Exam Other chest pain;Primary hypertension Performed By: #### C KMB, LIPID, CMP, CK, HSCRP, BNP, THYROID SC, CBC #### [facility] [address] Bilirubin [Mass/Vol] 0.2 mg/dL Low 0.3-1.0 [facility] Comment on above: Order Comment: Reaso n for Exam Other chest pain;Primary hypertension Performed By: #### C KMB, LIPID, CMP, CK, HSCRP, BNP, THYROID SC, CBC #### [facility] [address] Calcium [Mass/Vol] 9.5 mg/dL Normal 8.6-10.3 [facility] Comment on above: Order Comment: Reaso n for Exam Other chest pain;Primary hypertension Performed By: #### C KMB, LIPID, CMP, CK, HSCRP, BNP, THYROID SC, CBC #### [facility] [address] Chloride [Moles/Vol] 105 mmol/L Normal 98-107 [facility] Comment on above: Order Comment: Reaso n for Exam Other chest pain;Primary hypertension Performed By: #### C KMB, LIPID, CMP, CK, HSCRP, BNP, THYROID SC, CBC #### [facility] [address] CO2 [Moles/Vol] 25.0 mmol/L Normal 21.0-31.0 [facility] Comment on above: Order Comment: Reaso n for Exam Other chest pain;Primary hypertension Performed By: #### C KMB, LIPID, CMP, CK, HSCRP, BNP, THYROID SC, CBC #### [facility] [address] Creatinine [Mass/Vol] 0.63 mg/dL Normal 0.60-1.20 [facility] Comment on above: Order Comment: Reaso n for Exam Other chest pain;Primary hypertension Performed By: #### C KMB, LIPID, CMP, CK, HSCRP, BNP, THYROID SC, CBC #### [facility] [address] GFR/1.73 sq M.predicted MDRD (S/P/Bld) [Vol rate/Area] mL/min/{1.73_m2} [facility] Comment on above: Order Comment: Reaso n for Exam Other chest pain;Primary hypertension Performed By: #### C KMB, LIPID, CMP, CK, HSCRP, BNP, THYROID SC, CBC #### [address] Globulin (S) [Mass/Vol] 2.9 g/dL [facility] Comment on above: Order Comment: Reaso n for Exam Other chest pain;Primary hypertension Performed By: #### C KMB, LIPID, CMP, CK, HSCRP, BNP, THYROID SC, CBC #### [address] Glucose [Mass/Vol] 90 mg/dL Normal 70-100 [facility] Comment on above: Order Comment: Reaso n for Exam Other chest pain;Primary hypertension Result Comment: [place] Glucose Reference Range is dependent on time and content of last meal. Glucose of more than 200 mg/dL in a nonstressed, ambulatory subject supports the diagnosis of Diabetes Mellitus. ADA recommended reference range Performed By: #### C KMB, LIPID, CMP, CK, HSCRP, BNP, THYROID SC, CBC #### [address] Potassium [Moles/Vol] 3.9 mmol/L Normal 3.5-5.1 [facility] Comment on above: Order Comment: Reaso n for Exam Other chest pain;Primary hypertension Performed By: #### C KMB, LIPID, CMP, CK, HSCRP, BNP, THYROID SC, CBC #### [address] Protein [Mass/Vol] 7.1 g/dL Normal 6.4-8.9 [facility] Comment on above: Order Comment: Reaso n for Exam Other chest pain;Primary hypertension Performed By: #### C KMB, LIPID, CMP, CK, HSCRP, BNP, THYROID SC, CBC #### [address] Sodium [Moles/Vol] 139 mmol/L Normal 136-145 [facility] Comment on above: Order Comment: Reaso n for Exam Other chest pain;Primary hypertension Performed By: #### C KMB, LIPID, CMP, CK, HSCRP, BNP, THYROID SC, CBC #### [address] Urea nitrogen [Mass/Vol] 14 mg/dL Normal 7-25 [facility] Comment on above: Order Comment: Reaso n for Exam Other chest pain;Primary hypertension Performed By: #### C KMB, LIPID, CMP, CK, HSCRP, BNP, THYROID SC, CBC #### [address] Ferritinon 06-09-2023 Ferritin [Mass/Vol] 78.9 ng/mL Normal 11.0-306.8 [facility] Comment on above: Order Comment: Reaso n for Exam Other chest pain;Primary hypertension Performed By: #### C KMB, LIPID, CMP, CK, HSCRP, BNP, THYROID SC, CBC #### [address] HIV 1/O/2 Antigen/Antibodyon 06-09-2023 HIV Screen 4th Generation Non-Reactive Normal Non Reactive [facility] Comment on above: Order Comment: Reaso n for Exam Other chest pain;Primary hypertension Result Comment: HIV Negative HIV-1/HIV-2 antibodies and HIV-1 p24 antigen were NOT detected. There is no laboratory evidence of HIV infection. Performed at: [address] [id number] Band Saw Runner: Kurtis Gallegos PhD, Phone: [phone] PERFORMED BY: [place] [address] PATHOLOGIST SEQUINS SPOOLER PALOMO WESLEY M.D. Performed By: #### C KMB, LIPID, CMP, CK, HSCRP, BNP, THYROID SC, CBC #### [address] Iron and TIBC Profileon 03- % Iron Saturation 22.1 % Normal 20-50 [facility] Comment on above: Order Comment: Reaso n for Exam Other chest pain;Primary hypertension Performed By: #### C KMB, LIPID, CMP, CK, HSCRP, BNP, THYROID SC, CBC #### [address] Iron [Mass/Vol] 93 ug/dL Normal 50-212 [facility] Comment on above: Order Comment: Reaso n for Exam Other chest pain;Primary hypertension Performed By: #### C KMB, LIPID, CMP, CK, HSCRP, BNP, THYROID SC, CBC #### [address] Total Iron Binding Capacity 420 ug/dL Normal 255-450 [facility] Comment on above: Order Comment: Reaso n for Exam Other chest pain;Primary hypertension Performed By: #### C KMB, LIPID, CMP, CK, HSCRP, BNP, THYROID SC, CBC #### [facility] [address] [place] [address] Transferrin [Mass/Vol] 300 mg/dL Normal 203-362 [facility] Comment on above: Order Comment: Reaso n for Exam Other chest pain;Primary hypertension Performed By: #### C KMB, LIPID, CMP, CK, HSCRP, BNP, THYROID SC, CBC #### [address] LDL Cholesterol Measuredon 0 06-09-2023 LDL Cholesterol Measured 122 mg/dL High 0-100 [facility] Comment on above: Order Comment: Reaso n for Exam Other chest pain;Primary hypertension Result Comment: LDL ATP III CLASSIFICATION LDL less than 100 mg/dL Optimal LDL 100-129 mg/dL Near or above optimal LDL 130-159 mg/dL Borderline high LDL 160-189 mg/dL High LDL greater than 189 mg/dL Very high Performed By: #### C KMB, LIPID, CMP, CK, HSCRP, BNP, THYROID SC, CBC #### [facility] [address] Lipid Panelon 06-09-2023 Cholesterol [Mass/Vol] 216 mg/dL High 140-200 [facility] Comment on above: Order Comment: Reaso n for Exam Other chest pain;Primary hypertension Result Comment: Chol less than 200 mg/dl low risk Chol 201-239 mg/dl borderline risk Chol 240 mg/dl and greater high risk Performed By: #### C KMB, LIPID, CMP, CK, HSCRP, BNP, THYROID SC, CBC #### [facility] [address] Cholesterol in HDL [Mass/Vol] 69 mg/dL Normal 23-92 [facility] Comment on above: Order Comment: Reaso n for Exam Other chest pain;Primary hypertension Result Comment: HDL CHOL ATP-III CLASSIFICATION Cardiovascular Risk HDL > or equal to 60 mg/dL LOW HDL < 40 mg/dL HIGH Performed By: #### C KMB, LIPID, CMP, CK, HSCRP, BNP, THYROID SC, CBC #### [facility] [address] Cholesterol.total/Chol esterol in HDL [Mass ratio] 3.1 {ratio} Normal <5.0 [facility] Comment on above: Order Comment: Reaso n for Exam Other chest pain;Primary hypertension Performed By: #### C KMB, LIPID, CMP, CK, HSCRP, BNP, THYROID SC, CBC #### [facility] [address] [place] [id number] [place] LDL Cholesterol,Calculated Not performed Normal 0-100 [facility] Comment on above: Order Comment: Reaso n for Exam Other chest pain;Primary hypertension Performed By: #### C KMB, LIPID, CMP, CK, HSCRP, BNP, THYROID SC, CBC #### [facility] [address] [place] [id number] [place] Triglyceride w/Reflex 443 mg/dL High 0-149 [facility] Comment on above: Order Comment: Reaso [...] BNP, THYROID SC, CBC #### [facility] [address] VLDL CHOLESTEROL 88 mg/dL Normal [facility] Comment on above: Order Comment: Reaso n for Exam Other chest pain;Primary hypertension Performed By: #### C KMB, LIPID, CMP, CK, HSCRP, BNP, THYROID SC, CBC #### [facility] [address] MicroAlb Creat Ratio,Uon Albumin DL <= 20 mg/L (U) [Mass/Vol] 2.1 mg/dL High 0.0-1.8 [facility] Comment on above: Order Comment: Reaso n for Exam Other chest pain;Primary hypertension Performed By: #### C KMB, LIPID, CMP, CK, HSCRP, BNP, THYROID SC, CBC #### [facility] [address] Creatinine, Urine (Random) 66.0 mg/dL High 11.0-20.0 [facility] Comment on above: Order Comment: Reaso n for Exam Other chest pain;Primary hypertension Performed By: #### C KMB, LIPID, CMP, CK, HSCRP, BNP, THYROID SC, CBC #### [facility] [address] Microalbumin/Creatinin e Ratio 31.0 mg/g High 0.0-30.0 [facility] Comment on above: Order Comment: Reaso n for Exam Other chest pain;Primary hypertension Result Comment: 30-3 00 mg/g indicates an increased risk for diabetic nephropathy. Greater than 300 mg/g is consistent with clinical nephropathy. (Am. J. Kidney Disease 1995, 25:107) PERFORMED BY: [place] [address] PATHOLOGIST SEQUINS SPOOLER PALOMO WESLEY M.D. Performed By: #### C KMB, LIPID, CMP, CK, HSCRP, BNP, THYROID SC, CBC #### [facility] [address] THYROID SCREENon 06-09-2023 Free T4 [Mass/Vol] 0.68 ng/dL Normal 0.61-1.12 [facility] Comment on above: Order Comment: Reaso n for Exam Other chest pain;Primary hypertension Performed By: #### C KMB, LIPID, CMP, CK, HSCRP, BNP, THYROID SC, CBC #### [facility] [address] TSH Qn 2.09 m[IU]/L Normal 0.45-5.33 [facility] Comment on above: Order Comment: Reaso n for Exam Other chest pain;Primary hypertension Performed By: #### C KMB, LIPID, CMP, CK, HSCRP, BNP, THYROID SC, CBC #### [facility] [address] Toxassure, Urineon Toxassure, Urine Summary FINAL Normal . [facility] Comment on above: Order Comment: Reaso n [...] test is not intended to distinguish between arfpu-2-dymzuieogykdblfssthl, the predominant form of THC in most herbal or marijuana-based products, and ygoyv-4-btyoztwxozwxxmyzpslo. Gabapentin PRESENT Cyclobenzaprine PRESENT Desmethylcyclobenzaprine PRESENT Desmethylcyclobenzaprine is an expected metabolite of cyclobenzaprine. Naproxen PRESENT ===== Test Result Flag Units Ref Range Creatinine 63 mg/dL >=20 ===== Declared Medications: Medication list was not provided. ===== For clinical consultation, please call . ===== Performed at: [facility] [address] [id number] Band Saw Runner: Ana Munoz [facility], Phone: [phone] PERFORMED BY: [address] [place] [address] PATHOLOGIST SEQUINS SPOOLER PALOMO WESLEY M.D. Performed By: #### C KMB, LIPID, CMP, CK, HSCRP, BNP, THYROID SC, CBC #### [address] [address] [facility] Vitamin D 25 Hydroxy Totalon 06-09-2023 Vitamin D 25 Hydroxy Total 19.8 ng/mL Low 30-100 [facility] Comment on above: Order Comment: Reaso n for Exam Other chest pain;Primary hypertension Result Comment: IDRIS MIN D STATUS 25(OH)VITAMIN D RANGE (ng/mL) Deficient <20 Insufficient 20 to <30 Sufficient 30 to 100 Reference: Baron MF,Suze NC, Khushi-Jeffy MAXWELL, et al. Evaluation,treatment, and prevention of vitamin D deficiency; an Endocrine Society clinical practice guideline. JCEM. 2010; 96(7):1911-30. PERFORMED BY: [address] [place] [address] PATHOLOGIST SEQUINS SPOOLER PALOMO WESLEY M.D. Performed By: #### C KMB, LIPID, CMP, CK, HSCRP, BNP, THYROID SC, CBC #### [address] [address] [facility] Formson 04-26-2023 Forms [id number]. 00TIFF Normal [facility] NM Myocardial Spect Rest/Str ess 1 Dayon [...] Signature): 04/20/2023 10:54 am Signed by: Jose APTRICK, Ramone Butt Transcribed by: bethany Technologist: BRITTNY Technical Comments Rest Dose (mCi Tc99m Cardiolite): 9.6 Stress Dose (mCi Tc99M Cardiolite): 28.9 Normal [facility] Stress EKG Tracingson 2023 Stress EKG Tracings [id number] 02 [id number]. 00TIFF Normal [facility] Consent for Treatmenton 04-05 Consent for Treatment [id number] 0TIFF Normal [facility] Heart and Vascular Office/Cl inic Noteon 04-11-2023 [...] with voice recognition artificial intelligence software, specifically [employer], [employer] and or [employer]. Substitutions may have occurred with voice recognition and artificial intelligence software. Documentation services were performed after patient or guardian consented to allow farmhopping to record this visit. ANDERSON affirmative action specialist and provider reviewed before signing. ANDERSON: [...] 3 refi (more content not included)... Normal [facility] Comment on above: Result Comment: Elec tronically Signed By: Jose PATRICK, Ramone Butt\.br\Date and Time Signed: 04/11/23 19:52 EST\.br\Electronically Co-Signed By: Janie Villarreal\.br\Date and Time Co-Signed: 03/22/23 14:46 EST US renal BIon 04-01-2023 US renal BI [facility] Main [address] [address] Ultrasound Report Signed Patient: Meghana Craig MR#: [id number] : 1970 Acct:[id number] Age/Sex: 52 / F ADM Date: 04/01/23 Loc: Room: Type: [facility] Attending Dr: Jes Vasquez GENERAL MAGISTRATE-C Ordering Provider: Jes Vasquez Date of Service: 04/01/23 US/US renal BI: R31.9 ([id number]) US/US bladder: R31.9 Copies to: Jes Vasquez [...] Johns Jr., D.O.04/01/2023 3:16 PM Dictation Location: [place] [address] Tech: Chloe Delcid Transcribed By: FLORES 04/01/23 151 Dictated By: Freddy Johns Jr, DO 04/01/23 151 Signed By: 04/01/23 151 Normal [facility] XR KUBon 04-01-2023 XR KUB [facility] Main [address] [address] XRay Report Signed Patient: Meghana Craig MR#: [id number] : 1970 Acct:[id number] Age/Sex: 52 / F ADM Date: 04/01/23 Loc: Room: Type: [facility] Attending Dr: Jes Vasquez GENERAL MAGISTRATE-C Copies to: Jes Vasquez Ordering Provider: Jes [...] 3:38 PM Dictation Location: RADIO--10 Transcribed By: [facility] 04/01/23 1538 Dictated By: Shae Guzman MD 04/01/23 1536 Signed By: 04/01/23 1538 [facility] Insurance Correspondenceon 1 05-24-2022 Insurance Correspondence [id number] 0TIFF [facility] Consent for Treatmenton 03-05 Consent for Treatment [id number] 0TIFF [facility] Physician Orderon 03-22-2023 Physician Order [id number] .00TIFF [facility] Referrals Officeon Referrals Office [id number] .00TIFF [facility] COVID Quick Testingon 2022 Result Negative [facility] Other Quick Strepon 12-15-2022 S. pyogenes Org specific cx Ql (Throat) Negative [facility] Other Quick Strep [facility] Other COVID + FLU Quick Testingon 10-14-2022 SARS-CoV-2 (COVID-19) RNA AISSATOU+probe Ql (Unsp spec) Negative [facility] Other COVID + FLU Quick Testing Negative [facility] Other Quick Strepon 10-14-2022 S. pyogenes Org specific cx Ql (Throat) Negative [facility] Other Quick Strep [facility] Other Office Visit (Cardiology)on 06-24-2022 Follow-up visit Diagnoses/Problems Assessed Costochondritis (733.6) (M94.0) Palpitations (785.1) (R00.2) For the most part brief and fleeting, seem most consistent with PVC. Coronary artery disease involving tolowa dee-ni' coronary artery of tolowa dee-ni' heart without angina pectoris (414.01) (I25.10) Mar [...] contact the office if new symptoms arise. GENERAL MAGISTRATE 6 weeks Chief Complaint Add on d/t [...] department evaluation. Last week she presented to [facility] due to chest pain and dizziness. Initial [...] and fluttering . 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 Due to blood pressure and palpitations [...] Recorded: 24Jun2022 09:32AM Heart Rate88, R Radial Fclnfhjl532, RUE, Si (more content not included)... Normal PPI Tobacco Screening.on 023 Adult depression screening assessment No [facility] [employer] 250 DO Work Phone: Tobacco use status CPHS a) Yes [facility] [employer] 250 DO Work Phone: Tobacco Screening. Yes [facility] [employer] 250 DO Work Phone: Alanine aminotransferase [En zymatic activity/volume] in Serum or PlasmaOrdered By: Jes Vasquez on 06-19-2022 ALT [Catalytic activity/Vol] 11 U/L 7-52 [facility] Albumin [Mass/volume] in Ser um or Plasma by Bromocresol green (BCG) dye binding methoOrdered By: Jes Vasquez on 06-19-2022 Albumin BCG dye [Mass/Vol] 4.0 g/dL 3.5-5.7 [facility] Alkaline phosphatase [Enzyma tic activity/volume] in Serum or PlasmaOrdered By: Jes Vasquez on 06-19-2022 ALP [Catalytic activity/Vol] 70 U/L 34-104 [facility] Aspartate aminotransferase [ Enzymatic activity/volume] in Serum or PlasmaOrdered By: Jes Vasquez on 06-19-2022 AST [Catalytic activity/Vol] 11 U/L 13-39 [facility] B-Type Natriuretic Peptideon 06-19-2022 Natriuretic peptide B (Bld) [Mass/Vol] 87.0 pg/mL Normal 5-100 [facility] Comment on above: Order Comment: Reaso n for Exam Other chest pain;Primary hypertension Result Comment: PERF ORMED BY: [facility] [address] [place] [address] PATHOLOGIST SEQUINS SPOOLER PALOMO WESLEY M.D. Performed By: #### C KMB, LIPID, CMP, CK, HSCRP, BNP, THYROID SC, CBC #### [facility] [address] Basophils Auto (Bld) [#/Vol] Ordered By: Jes Vasquez on 06-19-2022 Basophils (Bld) [#/Vol] 0.1 10*3/uL 0.0-0.2 [facility] Basophils/100 WBC Auto (Bld) Ordered By: Jes Vasquez on 06-19-2022 Basophils/100 WBC (Bld) 1.2 % . [facility] Bilirubin.total [Mass/volume ] in Serum or PlasmaOrdered By: Jes Vasquez on 06-19-2022 Bilirubin [Mass/Vol] 0.2 mg/dL 0.3-1.0 [facility] C reactive protein [Mass/vol ume] in Serum or Plasma by High sensitivity methodOrdered By: Jes Vasquez on 06-19-2022 CRP High sensitivity method [Mass/Vol] 0.4 mg/L 0.0-0.9 [facility] Comment on above: Cardiovascular Risk Classification (AHA/CDC)hsCRP [...] on 06-19-2022 Calcium [Mass/Vol] 9.1 mg/dL 8.6-10.3 [facility] Carbon dioxide, total [Moles /volume] in Serum or PlasmaOrdered By: Jes Vasquez on 06-19-2022 CO2 [Moles/Vol] 24.4 mmol/L 21.0-31.0 [facility] Chloride [Moles/volume] in S shanna or PlasmaOrdered By: Jes Vasquez on 06-19-2022 Chloride [Moles/Vol] 108 mmol/L 98-107 [facility] Cholesterol [Mass/volume] in Serum or PlasmaOrdered By: Jes Vasquez on 06-19-2022 Cholesterol [Mass/Vol] 190 mg/dL 140-200 [facility] Comment on above: Chol less than 200 m g/dl low riskChol 201-239 mg/dl borderline riskChol 240 mg/dl and greater high risk Cholesterol in LDL Calc [Mas s/Vol]Ordered By: Jes Vasquez on 06-19-2022 Cholesterol in LDL [Mass/Vol] 74 mg/dL 0-100 [facility] Comment on above: LDL ATP III CLASSIFI CATIONLDL less than 100 mg/dL OptimalLDL 100-129 mg/dL Near or above optimalLDL 130-159 mg/dL Borderline highLDL 160-189 mg/dL HighLDL greater than 189 mg/dL Very high Cholesterol in VLDL Calc [Ma ss/Vol]Ordered By: Jes Vasquez on 06-19-2022 Cholesterol in VLDL [Mass/Vol] 48 mg/dL [facility] Complete Blood Count Auto Di ffon 06-19-2022 Basophils (Bld) [#/Vol] 0.1 10*3/uL Normal 0.0-0.2 [facility] Comment on above: Order Comment: Reaso n for Exam Other chest pain;Primary hypertension Result Comment: PERF ORMED BY: [place] [address] PATHOLOGIST SEQUINS SPOOLER PALOMO WESLEY M.D. Performed By: #### C KMB, LIPID, CMP, CK, HSCRP, BNP, THYROID SC, CBC #### [address] Basophils/100 WBC (Bld) 1.2 % Normal . [facility] Comment on above: Order Comment: Reaso n for Exam Other chest pain;Primary hypertension Performed By: #### C KMB, LIPID, CMP, CK, HSCRP, BNP, THYROID SC, CBC #### [address] Eosinophils (Bld) [#/Vol] 0.2 10*3/uL Normal 0.0-0.45 [facility] Comment on above: Order Comment: Reaso n for Exam Other chest pain;Primary hypertension Performed By: #### C KMB, LIPID, CMP, CK, HSCRP, BNP, THYROID SC, CBC #### [address] Eosinophils/100 WBC (Bld) 2.5 % Normal . [facility] Comment on above: Order Comment: Reaso n for Exam Other chest pain;Primary hypertension Performed By: #### C KMB, LIPID, CMP, CK, HSCRP, BNP, THYROID SC, CBC #### [address] Erythrocyte distribution width (RBC) [Ratio] 13.2 % Normal 11.9-15.3 [facility] Comment on above: Order Comment: Reaso n for Exam Other chest pain;Primary hypertension Performed By: #### C KMB, LIPID, CMP, CK, HSCRP, BNP, THYROID SC, CBC #### [address] Hematocrit (Bld) [Volume fraction] 39.3 % Normal 34.0-46.4 [facility] Comment on above: Order Comment: Reaso n for Exam Other chest pain;Primary hypertension Performed By: #### C KMB, LIPID, CMP, CK, HSCRP, BNP, THYROID SC, CBC #### [address] Hemoglobin (Bld) [Mass/Vol] 13.1 g/dL Normal 11.8-15.4 [facility] Comment on above: Order Comment: Reaso n for Exam Other chest pain;Primary hypertension Performed By: #### C KMB, LIPID, CMP, CK, HSCRP, BNP, THYROID SC, CBC #### [address] Lymphocytes (Bld) [#/Vol] 2.5 10*3/uL Normal 1.00-4.8 [facility] Comment on above: Order Comment: Reaso n for Exam Other chest pain;Primary hypertension Performed By: #### C KMB, LIPID, CMP, CK, HSCRP, BNP, THYROID SC, CBC #### [address] Lymphocytes/100 WBC (Bld) 30.3 % Normal . [facility] Comment on above: Order Comment: Reaso n for Exam Other chest pain;Primary hypertension Performed By: #### C KMB, LIPID, CMP, CK, HSCRP, BNP, THYROID SC, CBC #### [address] MCH (RBC) [Entitic mass] 33.2 pg Normal 24.7-34.3 [facility] Comment on above: Order Comment: Reaso n for Exam Other chest pain;Primary hypertension Performed By: #### C KMB, LIPID, CMP, CK, HSCRP, BNP, THYROID SC, CBC #### [address] MCV (RBC) [Entitic vol] 99.5 fL Normal 80-100 [facility] Comment on above: Order Comment: Reaso n for Exam Other chest pain;Primary hypertension Performed By: #### C KMB, LIPID, CMP, CK, HSCRP, BNP, THYROID SC, CBC #### [address] Mean Corpuscular HGB Conc 33.4 g/dL Normal 32.0-35.0 [facility] Comment on above: Order Comment: Reaso n for Exam Other chest pain;Primary hypertension Performed By: #### C KMB, LIPID, CMP, CK, HSCRP, BNP, THYROID SC, CBC #### [facility] [address] Monocytes (Bld) [#/Vol] 1.0 10*3/uL High 0.0-0.8 [facility] Comment on above: Order Comment: Reaso n for Exam Other chest pain;Primary hypertension Performed By: #### C KMB, LIPID, CMP, CK, HSCRP, BNP, THYROID SC, CBC #### [facility] [address] Monocytes/100 WBC (Bld) 11.6 % Normal . [facility] Comment on above: Order Comment: Reaso n for Exam Other chest pain;Primary hypertension Performed By: #### C KMB, LIPID, CMP, CK, HSCRP, BNP, THYROID SC, CBC #### [place] [address] [place] Neutrophils (Bld) [#/Vol] 4.5 10*3/uL Normal 1.8-7.7 [facility] Comment on above: Order Comment: Reaso n for Exam Other chest pain;Primary hypertension Performed By: #### C KMB, LIPID, CMP, CK, HSCRP, BNP, THYROID SC, CBC #### [address] Neutrophils/100 WBC (Bld) 54.4 % Normal . [facility] Comment on above: Order Comment: Reaso n for Exam Other chest pain;Primary hypertension Performed By: #### C KMB, LIPID, CMP, CK, HSCRP, BNP, THYROID SC, CBC #### [place] [address] [place] NRBC% 0.2 /100{WBC} Normal 0-0.5 [facility] Comment on above: Order Comment: Reaso n for Exam Other chest pain;Primary hypertension Performed By: #### C KMB, LIPID, CMP, CK, HSCRP, BNP, THYROID SC, CBC #### [facility] [address] Platelet mean volume (Bld) [Entitic vol] 10.2 fL Normal 6.3-10.7 [facility] Comment on above: Order Comment: Reaso n for Exam Other chest pain;Primary hypertension Performed By: #### C KMB, LIPID, CMP, CK, HSCRP, BNP, THYROID SC, CBC #### [facility] [address] Platelets (Bld) [#/Vol] 297 10*3/uL Normal 150-450 [facility] Comment on above: Order Comment: Reaso n for Exam Other chest pain;Primary hypertension Performed By: #### C KMB, LIPID, CMP, CK, HSCRP, BNP, THYROID SC, CBC #### [facility] [address] [place] [address] RBC (Bld) [#/Vol] 3.95 10*6/uL Normal 3.60-5.00 [facility] Comment on above: Order Comment: Reaso n for Exam Other chest pain;Primary hypertension Performed By: #### C KMB, LIPID, CMP, CK, HSCRP, BNP, THYROID SC, CBC #### [facility] [address] [place] [address] WBC (Bld) [#/Vol] 8.2 10*3/uL Normal 3.8-11.6 [facility] Comment on above: Order Comment: Reaso n for Exam Other chest pain;Primary hypertension Performed By: #### C KMB, LIPID, CMP, CK, HSCRP, BNP, THYROID SC, CBC #### [facility] [address] [place] [address] Comprehensive Metabolic Pane bryon 06-19-2022 Albumin [Mass/Vol] 4.0 g/dL Normal 3.5-5.7 [facility] Comment on above: Order Comment: Reaso n for Exam Other chest pain;Primary hypertension Performed By: #### C KMB, LIPID, CMP, CK, HSCRP, BNP, THYROID SC, CBC #### [facility] [address] [place] [address] Albumin/Globulin [Mass ratio] 1.7 {ratio} Normal [facility] Comment on above: Order Comment: Reaso n for Exam Other chest pain;Primary hypertension Performed By: #### C KMB, LIPID, CMP, CK, HSCRP, BNP, THYROID SC, CBC #### [facility] [address] ALP [Catalytic activity/Vol] 70 U/L Normal 34-104 [facility] Comment on above: Order Comment: Reaso n for Exam Other chest pain;Primary hypertension Performed By: #### C KMB, LIPID, CMP, CK, HSCRP, BNP, THYROID SC, CBC #### [facility] [address] ALT [Catalytic activity/Vol] 11 U/L Normal 7-52 [facility] Comment on above: Order Comment: Reaso n for Exam Other chest pain;Primary hypertension Performed By: #### C KMB, LIPID, CMP, CK, HSCRP, BNP, THYROID SC, CBC #### [facility] [address] Anion gap [Moles/Vol] 10.9 mmol/L Normal 6.0-15.0 [facility] Comment on above: Order Comment: Reaso n for Exam Other chest pain;Primary hypertension Performed By: #### C KMB, LIPID, CMP, CK, HSCRP, BNP, THYROID SC, CBC #### [facility] [address] AST [Catalytic activity/Vol] 11 U/L Low 13-39 [facility] Comment on above: Order Comment: Reaso n for Exam Other chest pain;Primary hypertension Performed By: #### C KMB, LIPID, CMP, CK, HSCRP, BNP, THYROID SC, CBC #### [facility] [address] Bilirubin [Mass/Vol] 0.2 mg/dL Low 0.3-1.0 [facility] Comment on above: Order Comment: Reaso n for Exam Other chest pain;Primary hypertension Performed By: #### C KMB, LIPID, CMP, CK, HSCRP, BNP, THYROID SC, CBC #### [facility] [address] Calcium [Mass/Vol] 9.1 mg/dL Normal 8.6-10.3 [facility] Comment on above: Order Comment: Reaso n for Exam Other chest pain;Primary hypertension Performed By: #### C KMB, LIPID, CMP, CK, HSCRP, BNP, THYROID SC, CBC #### [facility] [address] Chloride [Moles/Vol] 108 mmol/L High 98-107 [facility] Comment on above: Order Comment: Reaso n for Exam Other chest pain;Primary hypertension Performed By: #### C KMB, LIPID, CMP, CK, HSCRP, BNP, THYROID SC, CBC #### [facility] [address] CO2 [Moles/Vol] 24.4 mmol/L Normal 21.0-31.0 [facility] Comment on above: Order Comment: Reaso n for Exam Other chest pain;Primary hypertension Performed By: #### C KMB, LIPID, CMP, CK, HSCRP, BNP, THYROID SC, CBC #### [facility] [address] Creatinine [Mass/Vol] 0.79 mg/dL Normal 0.60-1.20 [facility] Comment on above: Order Comment: Reaso n for Exam Other chest pain;Primary hypertension Performed By: #### C KMB, LIPID, CMP, CK, HSCRP, BNP, THYROID SC, CBC #### [facility] [address] GFR/1.73 sq M.predicted MDRD (S/P/Bld) [Vol rate/Area] mL/min/{1.73_m2} [facility] Comment on above: Order Comment: Reaso n for Exam Other chest pain;Primary hypertension Performed By: #### C KMB, LIPID, CMP, CK, HSCRP, BNP, THYROID SC, CBC #### [facility] [address] Globulin (S) [Mass/Vol] 2.3 g/dL [facility] Comment on above: Order Comment: Reaso n for Exam Other chest pain;Primary hypertension Performed By: #### C KMB, LIPID, CMP, CK, HSCRP, BNP, THYROID SC, CBC #### [facility] [address] Glucose [Mass/Vol] 94 mg/dL Normal 74-109 [facility] Comment on above: Order Comment: Reaso n for Exam Other chest pain;Primary hypertension Result Comment: [facility] [place][note 2] Glucose Reference Range is dependent on time and content of last meal. Glucose of more than 200 mg/dL in a nonstressed, ambulatory subject supports the diagnosis of Diabetes Mellitus. ADA recommended reference range Performed By: #### C KMB, LIPID, CMP, CK, HSCRP, BNP, THYROID SC, CBC #### [facility] [address] Potassium [Moles/Vol] 4.3 mmol/L Normal 3.5-5.1 [facility] Comment on above: Order Comment: Reaso n for Exam Other chest pain;Primary hypertension Performed By: #### C KMB, LIPID, CMP, CK, HSCRP, BNP, THYROID SC, CBC #### [facility] [address] Protein [Mass/Vol] 6.3 g/dL Low 6.4-8.9 [facility] Comment on above: Order Comment: Reaso n for Exam Other chest pain;Primary hypertension Performed By: #### C KMB, LIPID, CMP, CK, HSCRP, BNP, THYROID SC, CBC #### [facility] [address] [place] [address] [place] Sodium [Moles/Vol] 139 mmol/L Normal 136-145 [facility] Comment on above: Order Comment: Reaso n for Exam Other chest pain;Primary hypertension Performed By: #### C KMB, LIPID, CMP, CK, HSCRP, BNP, THYROID SC, CBC #### [address] Urea nitrogen [Mass/Vol] 9 mg/dL Normal 7-25 [facility] Comment on above: Order Comment: Reaso n for Exam Other chest pain;Primary hypertension Performed By: #### C KMB, LIPID, CMP, CK, HSCRP, BNP, THYROID SC, CBC #### [facility] [address] [place] [id number] [place] Creatine Kinaseon 06-19-2022 CK [Catalytic activity/Vol] 35 U/L Normal 30- [facility] Comment on above: Order Comment: Reaso n for Exam Other chest pain Performed By: #### C KMB, LIPID, CMP, CK, HSCRP, BNP, THYROID SC, CBC #### [facility] [address] [place] [address] [place] Creatine kinase [Enzymatic a ctivity/volume] in Serum or PlasmaOrdered By: Jes Vasquez on 06-19-2022 CK [Catalytic activity/Vol] 35 U/L [facility] Creatine kinase.MB [Mass/vol ume] in Serum or PlasmaOrdered By: Jes Vasquez on 06-19-2022 CK.MB [Mass/Vol] 2.3 ng/mL 0.6-6.3 [facility] Creatinine Kinase MBon 06-19 CK.MB [Mass/Vol] 2.3 ng/mL Normal 0.6-6.3 [facility] Comment on above: Order Comment: Reaso n for Exam Other chest pain Performed By: #### C KMB, LIPID, CMP, CK, HSCRP, BNP, THYROID SC, CBC #### [address] CKMB Relative Index 6.5 % High 0.00-2.50 [facility] Comment on above: Order Comment: Reaso n for Exam Other chest pain Result Comment: PERF ORMED BY: [place] [address] PATHOLOGIST SEQUINS SPOOLER PALOMO WESLEY M.D. Performed By: #### C KMB, LIPID, CMP, CK, HSCRP, BNP, THYROID SC, CBC #### [place] [address] [place] Creatinine [Mass/volume] in Serum or PlasmaOrdered By: Jes Vasquez on 06-19-2022 Creatinine [Mass/Vol] 0.79 mg/dL 0.60-1.20 [facility] Eosinophils Auto (Bld) [#/Vo l]Ordered By: Jes Vasquez on 06-19-2022 Eosinophils (Bld) [#/Vol] 0.2 10*3/uL 0.0-0.45 [facility] Eosinophils/100 WBC Auto (Bl d)Ordered By: Jes Vasquez on 06-19-2022 Eosinophils/100 WBC (Bld) 2.5 % . [facility] Erythrocyte distribution wid th Auto (RBC) [Ratio]Ordered By: Jes Vasquez on 06-19-2022 Erythrocyte distribution width (RBC) [Ratio] 13.2 % 11.9-15.3 [facility] Globulin Calc (S) [Mass/Vol] Ordered By: Jes Vasquez on 06-19-2022 Globulin (S) [Mass/Vol] 2.3 g/dL [facility] Glucose [Mass/volume] in Ser um or PlasmaOrdered By: Jes Vasquez on 06-19-2022 Glucose [Mass/Vol] 94 mg/dL 74-109 [facility] Comment on above: ADA recommended refe rence rangeRandom Glucose Reference Range is dependent on time and content of last meal. Glucose of more than 200 mg/dL in a nonstressed, ambulatory subject supports the diagnosis of Diabetes Mellitus. Hematocrit Auto (Bld) [Volum e fraction]Ordered By: Jes Vasquez on 06-19-2022 Hematocrit (Bld) [Volume fraction] 39.3 % 34.0-46.4 [facility] Hemoglobin [Mass/volume] in BloodOrdered By: Jes Vasquez on 06-19-2022 Hemoglobin (Bld) [Mass/Vol] 13.1 g/dL 11.8-15.4 [facility] High Sensitive CRPon 023 High Sensitive CRP 0.4 mg/L Normal 0.0-0.9 [facility] Comment on above: Order Comment: Reaso n [...] for estimation of CVD risk. PERFORMED BY: [place] [address] PATHOLOGIST SEQUINS SPOOLER PALMOO WESLEY M.D. Performed By: #### C KMB, LIPID, CMP, CK, HSCRP, BNP, THYROID SC, CBC #### [address] Laboratory - Chemistry and C hemistry - challengeOrdered By: Jes Vasquez on 06-19-2022 GFR/1.73 sq M.predicted MDRD (S/P/Bld) [Vol rate/Area] mL/min/{1.73_m2} [facility] Leukocytes [#/volume] correc ricardo for nucleated erythrocytes in Blood by Automated counOrdered By: Jes Vasquez on 06-19-2022 WBC corrected for nucl RBC Auto (Bld) [#/Vol] 8.2 10*3/uL 3.8-11.6 [facility] Lipid Panelon 06-19-2022 Cholesterol [Mass/Vol] 190 mg/dL Normal 140-200 [facility] Comment on above: Order Comment: Reaso n for Exam Other chest pain;Primary hypertension Result Comment: Chol less than 200 mg/dl low risk Chol 201-239 mg/dl borderline risk Chol 240 mg/dl and greater high risk Performed By: #### C KMB, LIPID, CMP, CK, HSCRP, BNP, THYROID SC, CBC #### [address] Cholesterol in HDL [Mass/Vol] 68 mg/dL Normal 35-85 [facility] Comment on above: Order Comment: Reaso n for Exam Other chest pain;Primary hypertension Result Comment: HDL CHOL ATP-III CLASSIFICATION Cardiovascular Risk HDL > or equal to 60 mg/dL LOW HDL < 40 mg/dL HIGH Performed By: #### C KMB, LIPID, CMP, CK, HSCRP, BNP, THYROID SC, CBC #### [facility] [address] Cholesterol.total/Chol esterol in HDL [Mass ratio] 2.8 {ratio} Normal <5.0 [facility] Comment on above: Order Comment: Reaso n for Exam Other chest pain;Primary hypertension Performed By: #### C KMB, LIPID, CMP, CK, HSCRP, BNP, THYROID SC, CBC #### [facility] [address] LDL Cholesterol,Calculated 74 mg/dL Normal 0-100 [facility] Comment on above: Order Comment: Reaso n for Exam Other chest pain;Primary hypertension Result Comment: LDL ATP III CLASSIFICATION LDL less than 100 mg/dL Optimal LDL 100-129 mg/dL Near or above optimal LDL 130-159 mg/dL Borderline high LDL 160-189 mg/dL High LDL greater than 189 mg/dL Very high Performed By: #### C KMB, LIPID, CMP, CK, HSCRP, BNP, THYROID SC, CBC #### [facility] [address] Triglyceride w/Reflex 241 mg/dL High 0-149 [facility] Comment on above: Order Comment: Reaso [...] CK, HSCRP, BNP, THYROID SC, CBC #### [facility] [address] VLDL CHOLESTEROL 48 mg/dL Normal [facility] Comment on above: Order Comment: Reaso n for Exam Other chest pain;Primary hypertension Performed By: #### C KMB, LIPID, CMP, CK, HSCRP, BNP, THYROID SC, CBC #### [facility] [address] Lymphocytes Auto (Bld) [#/Vo l]Ordered By: Jes Vasquez on 06-19-2022 Lymphocytes (Bld) [#/Vol] 2.5 10*3/uL 1.00-4.8 [facility] Lymphocytes/100 WBC Auto (Bl d)Ordered By: Jes Vasquez on 06-19-2022 Lymphocytes/100 WBC (Bld) 30.3 % . [facility] MCH Auto (RBC) [Entitic mass ]Ordered By: Jes Vasquez on 06-19-2022 MCH (RBC) [Entitic mass] 33.2 pg 24.7-34.3 [facility] MCHC Auto (RBC) [Mass/Vol]Or dered By: Jes Vasquez on 06-19-2022 MCHC (RBC) [Mass/Vol] 33.4 g/dL 32.0-35.0 [facility] MCV Auto (RBC) [Entitic vol] Ordered By: Jes Vasquez on 06-19-2022 MCV (RBC) [Entitic vol] 99.5 fL 80-100 [facility] Monocytes Auto (Bld) [#/Vol] Ordered By: Jes Vasquez on 06-19-2022 Monocytes (Bld) [#/Vol] 1.0 10*3/uL 0.0-0.8 [facility] Monocytes/100 WBC Auto (Bld) Ordered By: Jes Vasquez on 06-19-2022 Monocytes/100 WBC (Bld) 11.6 % . [facility] Natriuretic peptide B [Mass/ Vol]Ordered By: Jes Vasquez on 06-19-2022 Natriuretic peptide B (Bld) [Mass/Vol] 87.0 pg/mL 5-100 [facility] Neutrophils Auto (Bld) [#/Vo l]Ordered By: Jes Vasquez on 06-19-2022 Neutrophils (Bld) [#/Vol] 4.5 10*3/uL 1.8-7.7 [facility] Neutrophils/100 WBC Auto (Bl d)Ordered By: Jes Vasquez on 06-19-2022 Neutrophils/100 WBC (Bld) 54.4 % . [facility] No Panel InformationOrdered By: Jes Vasquez on 06-19-2022 Pharmacy Creatinine Clearance (Chem N/A [facility] Nucleated erythrocytes [Pres ence] in Blood by Automated countOrdered By: Jes Vasquez on 06-19-2022 Nucleated RBC Auto Ql (Bld) 0.2 /100{WBC} 0-0.5 [facility] Platelet mean volume Auto (B ld) [Entitic vol]Ordered By: Jes Vasquez on 06-19-2022 Platelet mean volume (Bld) [Entitic vol] 10.2 fL 6.3-10.7 [facility] Platelets Auto (Bld) [#/Vol] Ordered By: Jes Vasquez on 06-19-2022 Platelets (Bld) [#/Vol] 297 10*3/uL 150-450 [facility] Potassium [Moles/volume] in Serum or PlasmaOrdered By: Jes Vasquez on 06-19-2022 Potassium [Moles/Vol] 4.3 mmol/L 3.5-5.1 [facility] Protein [Mass/volume] in Ser um or PlasmaOrdered By: Jes Vasquez on 06-19-2022 Protein [Mass/Vol] 6.3 g/dL 6.4-8.9 [facility] RBC Auto (Bld) [#/Vol]Ordere d By: Jes Vasquez on 06-19-2022 RBC (Bld) [#/Vol] 3.95 10*6/uL 3.60-5.00 [facility] Serum or plasma albumin/glob ulin mass ratioOrdered By: Jes Vasquez on 06-19-2022 Albumin/Globulin [Mass ratio] 1.7 {ratio} [facility] Serum or plasma anion gap de terminationOrdered By: Jes Vasquez on 06-19-2022 Anion gap [Moles/Vol] 10.9 mmol/L 6.0-15.0 [facility] Serum or plasma creatine kin ase MB (CKMB)/total creatine kinase (CK) ratio by calculaOrdered By: Jes Vasquez on 06-19-2022 CK.MB Calc [Catalytic fraction] 6.5 % 0.00-2.50 [facility] Serum or plasma high density lipoprotein (HDL) cholesterol measurementOrdered By: Jes Vasquez on 06-19-2022 Cholesterol in HDL [Mass/Vol] 68 mg/dL 35-85 [facility] Comment on above: HDL CHOL ATP-III CLA SSIFICATION Cardiovascular RiskHDL > or equal to 60 mg/dL LOWHDL < 40 mg/dL HIGH Serum or plasma total choles terol/high density lipoprotein (HDL) cholesterol mass ratOrdered By: Jes Vasquez on 06-19-2022 Cholesterol.total/Chol esterol in HDL [Mass ratio] 2.8 {ratio} <5.0 [facility] Sodium [Moles/volume] in Ser um or PlasmaOrdered By: Jes Vasquez on 06-19-2022 Sodium [Moles/Vol] 139 mmol/L 136-145 [facility] THYROID SCREENon 06-19-2022 Free T4 [Mass/Vol] 0.63 ng/dL Normal 0.61-1.12 [facility] Comment on above: Order Comment: Reaso n for Exam Other chest pain;Primary hypertension Performed By: #### C KMB, LIPID, CMP, CK, HSCRP, BNP, THYROID SC, CBC #### [facility] [address] TSH Qn 2.33 m[IU]/L Normal 0.45-5.33 [facility] Comment on above: Order Comment: Reaso n for Exam Other chest pain;Primary hypertension Result Comment: PERF ORMED BY: [facility] [address] [place] [address] PATHOLOGIST SEQUINS SPOOLER PALOMO WESLEY M.D. Performed By: #### C KMB, LIPID, CMP, CK, HSCRP, BNP, THYROID SC, CBC #### [facility] [address] Thyrotropin [Units/volume] i n Serum or PlasmaOrdered By: Jes Vasquez on 06-19-2022 TSH Qn 2.33 m[IU]/L 0.45-5.33 [facility] Thyroxine (T4) free [Mass/vo lume] in Serum or PlasmaOrdered By: Jes Vasquez on 06-19-2022 Free T4 [Mass/Vol] 0.63 ng/dL 0.61-1.12 [facility] Triglyceride [Mass/volume] i n Serum or PlasmaOrdered By: Jes Vasquez on 06-19-2022 Triglyceride [Mass/Vol] 241 mg/dL 0-149 [facility] Comment on above: TRIG ATP III CLASSIF ICATIONTRIG less than 150 mg/dL NormalTRIG 150-199 mg/dL Borderline highTRIG 200-500 mg/dL High TRIG greater than 500 mg/dL Very highStandard traceable to the Center for Disease Conrtrol and Prevention (CDC) test method. Urea nitrogen [Mass/volume] in Serum or PlasmaOrdered By: Jes Vasquez on 06-19-2022 Urea nitrogen [Mass/Vol] 9 mg/dL 7-25 [facility] WBC Auto (Bld) [#/Vol]Ordere d By: Jes Vasquez on 06-19-2022 WBC (Bld) [#/Vol] 8.2 10*3/uL 3.8-11.6 [facility] CARDIAC BJORN ADMITon 023 CK [Catalytic activity/Vol] 54 U/L Normal 26-192 [facility] Comment on above: Performed By: #### C JORDAN CMP #### [facility] [address] [address] [address] Howard Guthrie CK.MB [Mass/Vol] 1.70 ng/mL Normal <=3.60 [facility] Comment on above: Performed By: #### C JORDAN, CMP #### [facility] [address] [address] [address] Howard Guthrie HSTROP <4.0 Normal 4.0-51.3 [facility] Comment on above: Result Comment: CUT- OFF POINTS HAVE BEEN ESTABLISHED BASED ON THE FOURTH UNIVERSAL DEFINITIONS OF MYOCARDIAL INFARCTION. THE UPPER REFERENCE LIMIT (URL) OF TROPONIN, DEFINED THE 99TH PERCENTILE OF cTnI DISTRIBUTION IN A REFERENCE POPULATION, HAS BEEN CONFIRMED THE DECISION THRESHOLD FOR AR DIAGNOSIS. Performed By: #### C MADM, CMP #### [facility] [address] [place], [place] [address] Dr. Howard Guthrie NYA 23 ng/mL Normal 9-82 [facility] Comment on above: Performed By: #### C MADM, CMP #### [facility] [address] [address] [address] Howard Guthrie CBC AUTO DIFFon 06-17-2022 BASO # 0.1 103/ul Normal 0.0-0.1 [facility] Comment on above: Performed By: #### C BC #### [facility] [address] [address] [address] Howard Guthrie Basophils/100 WBC (Bld) 1.0 % Normal 0.2-2.0 [facility] Comment on above: Performed By: #### C BC #### [facility] [address] [place] [address] Dr. Howard Guthrie EO # 0.2 103/ul Normal 0.0-0.7 [facility] Comment on above: Performed By: #### C BC #### [facility] [address] [place] [address] Dr. Howard Guthrie Eosinophils/100 WBC (Bld) 2.9 % Normal 0.9-7.0 [facility] Comment on above: Performed By: #### C BC #### [facility] [address] [place] [address] Dr. Howard Guthrie Erythrocyte distribution width (RBC) [Ratio] 12.7 % Normal 11.0-15.0 [facility] Comment on above: Performed By: #### C BC #### [facility] [address] [place] [address] Dr. Howard Guthrie Hematocrit (Bld) [Volume fraction] 42.5 % Normal 36.0-48.0 [facility] Comment on above: Performed By: #### C BC #### [facility] [address] [place] [address] Dr. Howard Guthrie Hemoglobin (Bld) [Mass/Vol] 14.7 g/dL Normal 12.0-16.0 [facility] Comment on above: Performed By: #### C BC #### [facility] [address] [place] [address] Dr. Howard Guthrie IG # 0.02 10e3/ul Normal 0.00-0.03 [facility] Comment on above: Performed By: #### C BC #### [facility] [address] [place] [address] Dr. Howard Guthrie IG % 0.3 % Normal 0.0-0.5 [facility] Comment on above: Performed By: #### C BC #### [facility] [address] [place] [address] Dr. Howard Guthrie LYMPH # 2.1 103/ul Normal 1.2-3.8 [facility] Comment on above: Performed By: #### C BC #### [facility] [address] [place] [address] Dr. Howard Guthrie Lymphocytes/100 WBC (Bld) 28.4 % Normal 20.5-60.0 [facility] Comment on above: Performed By: #### C BC #### [facility] [address] [place] [address] Dr. Howard Guthrie MANUAL DIFF REQ NO Normal [facility] Comment on above: Performed By: #### C BC #### [facility] [address] [place] [address] Dr. Howard Guthrie MCH (RBC) [Entitic mass] 33.1 pg Normal 26.7-34.0 [facility] Comment on above: Performed By: #### C BC #### [facility] [address] [place] [address] Dr. Howard Guthrie MCHC (RBC) [Mass/Vol] 34.6 g/dL Normal 29.9-35.2 [facility] Comment on above: Performed By: #### C BC #### [facility] [address] [place] [address] Dr. Howard Guthrie MCV (RBC) [Entitic vol] 95.7 fL Normal 81.0-99.0 [facility] Comment on above: Performed By: #### C BC #### [facility] [address] [place] [address] Dr. Howard Guthrie MONO # 1.0 103/ul Critically high 0.3-0.[address] [facility] Comment on above: Performed By: #### C BC #### [facility] [address] [address] [address] Howard Guthrie Monocytes/100 WBC (Bld) 13.1 % Critically high 1.7-12.0 [facility] Comment on above: Performed By: #### C BC #### [facility] [address] [place] [address] Dr. Howard Guthrie NEUT # 4.0 103/ul Normal 1.4-6.5 [facility] Comment on above: Performed By: #### C BC #### [facility] [address] [place] [address] Dr. Howard Guthrie Neutrophils/100 WBC (Bld) 54.3 % Normal 43.0-75.0 [facility] Comment on above: Performed By: #### C BC #### [facility] [address] [place] [address] Dr. Howard Guthrie Platelet mean volume (Bld) [Entitic vol] 10.0 fL Normal 9.5-13.5 [facility] Comment on above: Performed By: #### C BC #### [facility] [address] [place] [address] Dr. Howard Guthrie PLT 343 103/ul Normal 150-450 [facility] Comment on above: Performed By: #### C BC #### [facility] [address] [place] [address] Dr. Howard Guthrie RBC 4.44 106/ul Normal 4.20-5.40 [facility] Comment on above: Performed By: #### C BC #### [facility] [address] [place] [address] Dr. Howard Guthrie WBC 7.4 103/ul Normal 4.0-11.0 [facility] Comment on above: Performed By: #### C BC #### [facility] [address] [place] [address] Dr. Howard Guthrie D-DIMERon 06-17-2022 D-DIMER 0.43 mg/L FEU Normal <=0.59 [facility] Comment on above: Performed By: #### D DIM #### [facility] [address] [place] [address] Dr. Howard Guthrie D-DIMER COMMENTS SEE BELOW Normal [facility] Comment on above: Result Comment: Incr eases [...] hospitalization. Performed By: #### D DIM #### [facility] [address] [place] [address] Dr. Howard Guthrie ER URINE PROFILEon 3 Bilirubin Ql (U) Negative Normal NEGATIVE [facility] Comment on above: Performed By: #### U MICRO, ERUR #### [facility] [address] [place] [address] Dr. Howard Guthrie Clarity (U) CLEAR Normal CLEAR [facility] Comment on above: Performed By: #### U MICRO, ERUR #### [facility] [address] [place] [address] Dr. Howard Guthrie Color (U) LT. YELLOW Normal YELLOW [facility] Comment on above: Performed By: #### U MICRO, ERUR #### [facility] [address] [place] [address] Dr. Howard Guthrie ERUAHD A micrscopic examination will be performed if indicated. Normal [facility] Comment on above: Performed By: #### U MICRO, ERUR #### [facility] [address] [place] [address] Dr. Howard Guthrie Glucose Ql (U) Negative Normal NEGATIVE [facility] Comment on above: Performed By: #### U MICRO, ERUR #### [facility] [address] [place] [address] Dr. Howard Guthrie Hemoglobin Ql (U) SMALL Abnormal NEGATIVE [facility] Comment on above: Performed By: #### U MICRO, ERUR #### [facility] [address] [address] [address] Howard Guthrie Ketones Ql (U) Negative Normal NEGATIVE [facility] Comment on above: Performed By: #### U MICRO, ERUR #### [facility] [address] [place] [address] Dr. Howard Guthrie LEUKOCYTES Negative Normal NEGATIVE [facility] Comment on above: Performed By: #### U MICRO, ERUR #### [facility] [address] [address] [address] Howard Guthrie Nitrite Ql (U) Negative Normal NEGATIVE [facility] Comment on above: Performed By: #### U MICRO, ERUR #### [facility] [address] [place] [address] Dr. Howard Guthrie pH (U) 7.0 [pH] Normal 5-9 [facility] Comment on above: Performed By: #### U MICRO, ERUR #### [facility] [address] [address] [address] Howard Guthrie SPEC GRAVITY 1.015 Normal 1.005-<=1.0 25 [facility] Comment on above: Performed By: #### U MICRO, ERUR #### [facility] [address] [place] [address] Dr. Howard Guthrie UA PROTEIN Negative Normal NEGATIVE/ TRACE [facility] Comment on above: Performed By: #### U MICRO, ERUR #### [facility] [address] [address] [address] Howard Guthrie UR MICRO IND INDICATED Normal [facility] Comment on above: Performed By: #### U MICRO, ERUR #### [facility] [address] [address] [address] Howard Guthrie Urobilinogen Qn (U) 0.2 {Abdiaziz'U}/dL Normal 0.2 - 1. 0 [facility] Comment on above: Performed By: #### U MICRO, ERUR #### [facility] [address] [place] [address] Dr. Howard Guthrie PROF 14(COMP METB)on 03-15-2 023 Albumin [Mass/Vol] 3.8 g/dL Normal 3.4-5.0 [facility] Comment on above: Performed By: #### C JORDAN, CMP #### [facility] [address] [address] [address] Howard Guthrie Albumin/Globulin [Mass ratio] 1.1 {ratio} Normal [facility] Comment on above: Performed By: #### C JORDAN, CMP #### [facility] [address] [address] [address] Howard Guthrie ALP [Catalytic activity/Vol] 96 U/L Normal 46-116 [facility] Comment on above: Performed By: #### C JORDAN, CMP #### [facility] [address] [address] [address] Howard Guthrie ALT [Catalytic activity/Vol] 19 U/L Normal 14-59 [facility] Comment on above: Performed By: #### C JORDAN, CMP #### [facility] [address] [address] [address] Howard Guthrie Anion gap [Moles/Vol] 11.2 mmol/L Normal [facility] Comment on above: Performed By: #### C JORDAN, CMP #### [facility] [address] [address] [address] Howard Guthrie AST [Catalytic activity/Vol] 19 U/L Normal 15-37 [facility] Comment on above: Performed By: #### Terrie ORTEGA, CMP #### [facility] [address] [address] [address] Howard Guthrie Bilirubin [Mass/Vol] 0.5 mg/dL Normal 0.2-1.0 [facility] Comment on above: Performed By: #### C JORDAN, CMP #### [facility] [address] [address] [address] Howard Guthrie Calcium [Mass/Vol] 8.8 mg/dL Normal 8.5-10.1 [facility] Comment on above: Performed By: #### Terrie ORTEGA, CMP #### [facility] [address] [address] [address] Howard Guthrie Chloride [Moles/Vol] 104 mmol/L Normal 98-107 [facility] Comment on above: Performed By: #### C JORDAN, CMP #### [facility] [address] [address] [address] Howard Guthrie CO2 [Moles/Vol] 24.1 mmol/L Normal 21.0-32.0 [facility] Comment on above: Performed By: #### C JORDAN, CMP #### [facility] [address] [place] [address] Dr. Howard Guthrie Creatinine [Mass/Vol] 0.73 mg/dL Normal 0.55-1.02 [facility] Comment on above: Performed By: #### C JORDAN, CMP #### [facility] [address] [place] [address] Dr. Howard Guthrie EGFR-AF NORWEGIAN >60 Normal >=60 [facility] Comment on above: Performed By: #### C JORDAN, CMP #### [facility] [address] [place] [address] Dr. Howard Guthrie EGFR-NON AF NORWEGIAN >60 Normal >=60 [facility] Comment on above: Performed By: #### C JORDAN, CMP #### [facility] [address] [place] [address] Dr. Howard Guthrie Globulin (S) [Mass/Vol] 3.6 g/dL Normal [facility] Comment on above: Performed By: #### C JORDAN, CMP #### [facility] [address] [place] [address] Dr. Howard Guthrie Glucose [Mass/Vol] 112 mg/dL Critically high 74-106 [facility] Comment on above: Performed By: #### C JORDAN, CMP #### [facility] [address] [place] [address] Dr. Howard Guthrie Potassium [Moles/Vol] 3.3 mmol/L Critically low 3.5-5.1 [facility] Comment on above: Performed By: #### C JORDAN, CMP #### [facility] [address] [place] [address] Dr. Howard Guthrie Protein [Mass/Vol] 7.4 g/dL Normal 6.4-8.2 [facility] Comment on above: Performed By: #### C JORDAN, CMP #### [facility] [address] [place] [address] Dr. Howard Guthrie Sodium [Moles/Vol] 136 mmol/L Normal 136-145 [facility] Comment on above: Performed By: #### C JORDAN, CMP #### [facility] [address] [place] [address] Dr. Howard Guthrie Urea nitrogen [Mass/Vol] 6.0 mg/dL Critically low 7.0-18.0 [facility] Comment on above: Performed By: #### C JORDAN, CMP #### [facility] [address] [place] [address] Dr. Howard Guthrie Urea nitrogen/Creatinine [Mass ratio] 8.2 mg/mg Normal [facility] Comment on above: Performed By: #### C JORDAN, CMP #### [facility] [address] [place] [address] Dr. Howard Guthrie TROPONIN, HIGH SENSITIVITYon 06-17-2022 HSTROP 4.6 pg/mL Normal 4.0-51.3 [facility] Comment on above: Result Comment: CUT- OFF POINTS HAVE BEEN ESTABLISHED BASED ON THE FOURTH UNIVERSAL DEFINITIONS OF MYOCARDIAL INFARCTION. THE UPPER REFERENCE LIMIT (URL) OF TROPONIN, DEFINED THE 99TH PERCENTILE OF cTnI DISTRIBUTION IN A REFERENCE POPULATION, HAS BEEN CONFIRMED THE DECISION THRESHOLD FOR AR DIAGNOSIS. Performed By: #### H STROPN #### [facility] [address] [place] [address] Dr. Howard Guthrie URINE MICROSCOPIC ONLYon BACTERIA TRACE Abnormal NONE SEEN [facility] Comment on above: Performed By: #### U MICRO, ERUR #### [facility] [address] [place] [address] Dr. Howard Guthrie Bacteria identified Cx Nom (U) NOT INDICATED Normal [facility] Comment on above: Performed By: #### U MICRO, ERUR #### [facility] [address] [place] [address] Dr. Howard Guthrie CAST NONE SEEN Normal NONE SEEN [facility] Comment on above: Performed By: #### U MICRO, ERUR #### [facility] [address] [place] [address] Dr. Howard Guthrie Crystals LM Nom (Urine sed) NONE SEEN Normal NONE SEEN [facility] Comment on above: Performed By: #### U MICRO, ERUR #### [facility] [address] [place] [address] Dr. Howard Guthrie Epithelial cells LM Ql (Urine sed) FEW Abnormal NONE SEEN /RARE [facility] Comment on above: Performed By: #### U MICRO, ERUR #### [facility] [address] [place] [address] Dr. Howard Guthrie MUCOUS TRACE Abnormal NONE SEEN [facility] Comment on above: Performed By: #### U MICRO, ERUR #### [facility] [address] [place] [address] Dr. Howard Guthrie RBC 2-5 Abnormal 0-2 [facility] Comment on above: Performed By: #### U MICRO, ERUR #### [facility] [address] [place] [address] Dr. Howard Guthrie WBC NONE SEEN Normal NONE SEEN [facility] Comment on above: Performed By: #### U MICRO, ERUR #### [facility] [facility] [address] [place] [address] Dr. Howard Guthrie XR CHEST 1 Von [...] NICK MARIE Date: 2022-06-17 12:26 Normal [facility] Tobacco Screening.on 022 Adult depression screening assessment No [facility] 250 DO Work Phone: Tobacco use status CPHS a) Yes [facility] 250 DO Work Phone: Tobacco Screening. Yes [facility] 250 DO Work Phone: Vital Signs Date Time Vital Sign Value Performing Clinician Tonja figueroa 08-10-2023 09:19-0400 Blood Pressure Location JESSHAMA HUNTER [facility] 08-10-2023 09:19-0400 Body temperature 98.24 [degF] JES ELSA [facility] 08-10-2023 09:19-0400 Diastolic blood pressure 78 mm[Hg] JES ELSA [facility] 08-10-2023 09:19-0400 Heart rate 80 /min JES ELSA [facility] 08-10-2023 09:19-0400 Respiratory rate 19 /min JES ELSA [facility] 08-10-2023 09:19-0400 Systolic blood pressure 136 mm[Hg] JES ELSA [facility] 03-22-2023 13:16-0500 Blood Pressure Location Ramone Garcia [facility] 03-22-2023 13:16-0500 Diastolic blood pressure 85 mm[Hg] Ramone Garcia [facility] 03-22-2023 13:16-0500 Heart rate 90 /min Ramone Garcia [facility] 03-22-2023 13:16-0500 SaO2% (BldA) [Mass fraction] 99 % Ramone Garcia [facility] 03-22-2023 13:16-0500 Systolic blood pressure 126 mm[Hg] Ramone Garcia [facility] 12-15-2022 13:20-0400 Body height 165.1 cm Loretta Javier Other [facility] Other 12-15-2022 13:20-0400 Body mass index (BMI) [Ratio] 23.13 kg/m2 Loretta Javier Other [facility] Other 12-15-2022 13:20-0400 Body temperature 98.1 [degF] Loretta Javier Other [facility] Other 12-15-2022 13:20-0400 Body weight 63.05 kg Loretta Javier Other [facility] Other 12-15-2022 13:20-0400 Diastolic blood pressure 76 mm[Hg] Loretta Javier Other [facility] Other 12-15-2022 13:20-0400 Respiratory rate 18 /min Loretta Javier Other [facility] Other 12-15-2022 13:20-0400 SaO2% (BldA) [Mass fraction] 98 % Loretta Javier Other [facility] Other 12-15-2022 13:20-0400 Systolic blood pressure 128 mm[Hg] Loretta Javier Other [facility] Other 10-14-2022 11:10-0400 Body height 165.1 cm Tanya Glover Other [facility] Other 10-14-2022 11:10-0400 Body mass index (BMI) [Ratio] 23.39 kg/m2 Tanya Glover Other [facility] Other 10-14-2022 11:10-0400 Body temperature 97.8 [degF] Tanya Glover Other [facility] Other 10-14-2022 11:10-0400 Body weight 63.78 kg Tanya Glover Other [facility] Other 10-14-2022 11:10-0400 Diastolic blood pressure 85 mm[Hg] Tanya Glover Other [facility] Other 10-14-2022 11:10-0400 Respiratory rate 18 /min Tanya Glover Other [facility] Other 10-14-2022 11:10-0400 SaO2% (BldA) [Mass fraction] 99 % Tanya Glover Other [facility] Other 10-14-2022 11:10-0400 Systolic blood pressure 143 mm[Hg] Tanya Glover Other [facility] Other 06-24-2022 09:32-0400 Body height 165.1 cm No PCP None [facility] 250 DO Work Phone: 06-24-2022 09:32-0400 Body mass index (BMI) [Ratio] 24.63 kg/m2 No PCP None [facility] 250 DO Work Phone: 06-24-2022 09:32-0400 Body surface area Derived from formula 1.74 m2 No PCP None [facility] 250 DO Work Phone: 06-24-2022 09:32-0400 Body weight 67.13 kg No PCP None [facility] 250 DO Work Phone: 06-24-2022 09:32-0400 Diastolic blood pressure 82 mm[Hg] No PCP None [facility] 250 DO Work Phone: 06-24-2022 09:32-0400 Heart rate 88 /min No PCP None [facility] 250 DO Work Phone: 06-24-2022 09:32-0400 Systolic blood pressure 124 mm[Hg] No PCP None [facility] 250 DO Work Phone: 06-02-2021 15:09-0500 Diastolic blood pressure 98 mm[Hg] No PCP None [facility] 250 DO Work Phone: 06-02-2021 15:09-0500 Systolic blood pressure 142 mm[Hg] No PCP None [facility] 250 DO Work Phone: 06-02-2021 15:03-0500 Body height 165.1 cm No PCP None [facility] 250 DO Work Phone: 06-02-2021 15:03-0500 Body mass index (BMI) [Ratio] 28.29 kg/m2 No PCP None [facility] 250 DO Work Phone: 06-02-2021 15:03-0500 Body surface area Derived from formula 1.85 m2 No PCP None [facility] 250 DO Work Phone: 06-02-2021 15:03-0500 Body weight 77.11 kg No PCP None [facility] 250 DO Work Phone: 06-02-2021 15:03-0500 Diastolic blood pressure 90 mm[Hg] No PCP None [facility] 250 DO Work Phone: 06-02-2021 15:03-0500 Heart rate 92 /min No PCP None [facility] 250 DO Work Phone: 06-02-2021 15:03-0500 Systolic blood pressure 142 mm[Hg] No PCP None [facility] 250 DO Work Phone: Encounters Encounter Date Encounter Type Care Provider Facility Start: 08-10-2023 End: 08-11-2023 ambulatory JES HUNTER Facility:[facility] Start: 08-10-2023 End: 08-11-2023 ambulatory JES HUNTER Facility: [facility] Start: 08-10-2023 End: 08-10-2023 Lab Drop off JES HUNTER [facility] Start: 08-10-2023 End: 08-10-2023 Patient encounter procedure [facility]ES HUNTER [facility] Start: 06-09-2023 End: 06-09-2023 ambulatory Jes Vasquez Facility:[facility] Start: 04-27-2023 ambulatory Ramone Garcia Fac ility:[facility] Start: 04-16-2023 End: 04-17-2023 ambulatory Ramone Garcia Facility:[facility] [place] Start: 04-16-2023 End: 04-16-2023 Patient encounter procedure Ramone Garcia [facility] Start: 04-01-2023 End: 04-01-2023 ambulatory PHYSICIAN NO FAMILY Facility:[facility] Start: 03-22-2023 End: 03-23-2023 ambulatory Ramone Garcia Facility:[facility] [place] Start: 03-22-2023 End: 03-22-2023 Patient encounter procedure Ramone Garcia [facility] Start: 12-15-2022 End: 12-15-2022 ambulatory Loretta Javier Other [facility] Other Start: 12-15-2022 Office outpatient visit 25 minutes Loretta Javier [facility] Start: 10-14-2022 End: 10-14-2022 ambulatory Tanya Belen Other [facility] Other Start: 10-14-2022 Office outpatient visit 15 minutes Tanya Belen [facility] Start: 08-14-2022 ambulatory Ms. Jes Vasquez Facility: Start: 08-14-2022 [facility], Provider: Nadia Franks, Status: Pen, Time: 1:00 PM No PCP None [facility] 250 DO Work Phone: Start: 08-06-2022 Rx Renewal No PCP None [facility] 250 DO Work Phone: Start: 06-24-2022 Office outpatient visit 15 minutes No PCP None [facility] 250 DO Work Phone: Start: 06-24-2022 ambulatory Ms. Nadia Tinajero Migel Morales h Facility: Start: 06-19-2022 End: 06-19-2022 ambulatory PHYSICIAN NO FAMILY Facility:[facility] Start: 06-19-2022 End: 06-19-2022 ambulatory PHYSICIAN NO [facility] Work Phone: Start: 06-19-2022 End: 06-19-2022 Departed Referred PHYSICIAN NO [facility] Start: 06-17-2022 End: 06-17-2022 ambulatory RIVER MARTE . Facility:[facility] Start: 11-10-2021 ambulatory Ms. Nadia Lainez Andrew h Facility: Start: 10-27-2021 Rx Renewal No PCP None [facility] 250 DO Work Phone: Start: 06-02-2021 Office outpatient visit 25 minutes No PCP None [facility] 250 DO Work Phone: Procedures Date [...] Nadia Franks, Status: Pen, Time: 1:00 PM [facility] 250 DO Work Phone: Start: 11-10-2021 [facility], Provider: Nadia Franks, Status: Pen, Time: 3:00 PM [facility], Provider: Nadia Franks, Status: Pen, Time: 3:00 PM [facility] 250 DO Work Phone: Start: 06-30-2021 [facility], Provider: Nadia Franks, Status: Pen, Time: 8:00 AM [facility], Provider: Nadia Franks, Status: Pen, Time: 8:00 AM [facility] 250 DO Work Phone: Immunizations Immunization Date Immunization Notes Care Provider Jennifer lacy 03-25-2021 influenza, injectabl e, quadrivalent, preservative free No PCP None [facility] 01-05-2020 influenza, injectabl e, quadrivalent, preservative free No PCP None [facility] 250 DO Work Phone: 01-06-2019 influenza, injectabl e, quadrivalent, preservative free [facility] Payers Date Payer Category Payer Self-pay [id number] 1970 Unknown [id number] 1970 Unknown [id number] 356 1971 Unknown [id number]. 356 1971 Unknown [id number]. 356 1971 Unknown [id number]. 727 1971 Unknown [id number]. 727 1971 Unknown [id number] [id number]. 727 1971 Unknown [id number]. 727 1958 Medicaid [id number] Private Health Insurance [id number] Unknown [id number] Unknown [facility] Unknown [id number] Unknown [id number]. 531 Unknown [id number] [id number]. 531 Unknown [id number]. 531 Social History Date Type Detail Facility Tobacco smoking stat [facility] Unknown if ever smoked [facility] Start: 1970 Sex Assigned At Female F [facility] Illicit drug use Illicit drug use [facility] 250 DO Work Phone: Comment on above: 1 pack per daily.; Start: 05-26-2021 Tobacco smoking stat [facility] Ex-smoker (finding) [facility] Sex Assigned At [facility] Start: 03-22-2023 End: 08-10-2023 Tobacco smoking status Light tobacco smoker (finding) [facility] Tobacco smoking status Never [facility] Medical Equipment Procedure Code Equipment Code Equipment Origin al Text Equipment Identifier Dates Thoracotomy Staple line-reinforcement strip [id number] FDA Start: 03-26-2021 Thoracotomy Surgical adhesive/sealant, human-derived ()[id number] FDA Start: 03-26-2021 Goals Date Patient Goal Desired Activity /State Functional Status Date Assessment Result Facility 08-10-2023 Functional Status N/A [facility] 03-22-2023 Functional Status No [facility] Clinical Notes 10-14-2022 to 08-10-2023 Note Date & Type Note Facility 08-10-2023 Evaluation + Plan note Diagnostic Tests PendingUrine Cytology ([facility]) 08/10/23 [facility] 08-10-2023 Note Chief Complaint Jes Gomes [...] has had dark urine. Bladder/renal US 04/01/23 [facility] - No renal mass, stone or hydro. Unremarkable bladder. KUB 04/01/23 [facility] - No obvious urinary tract calculi. AMOL 08/02/23 [facility] - No renal stones or hydro. Unremarkable bladder. KUB 08/02/23 [facility] - No urinary tract calculi. Educated pt [...] upon conclusion of the workup. -CTU at [facility] now -Urine sample to be sent for [...] Cyst of kidney, acquired) Bladder/renal US 04/01/23 [facility] - Small L renal cyst. 06/09/23 - BUN 14. Cr 0.63. GFR >60. -Simple cysts do not require follow-up Ordered: CT Urogram 5. Smoker (F17.200: Nicotine dependence, unspec (more content not included)... [facility] Comment on above: Result Comment: Elec tronically [...] require a prescription. You can also purchase ntad-pnp-gltakeg medicines. Medicines may have nicotine in them [...] and encouragement. Call telephone quitlines, such as 7-121-UDQD-NOW, reach out to support groups, or work [...] provider. Document Revised: 03/13/2022 Document Reviewed: 03/13/2022 [employer]integrated Patient Education 2022 [employer]. 08/10/2023 10:11:31 Cystoscopy Cystoscopy Cystoscopy is a [...] including vitamins, herbs, eye drops, creams, and wyue-qko-mtnglri medicines. Any problems you or family members [...] provider tells you to take them. Taking tekd-cmf-jajdfbd medicines, vitamins, herbs, and supplements. Tests You [...] Follow these instructions at home: Medicines Take qusu-qut-bbfknzk and prescription medicines only as told by [...] provider. Document Revised: 12/03/2021 Document Reviewed: 11/01/2020 [employer]2integrated Patient Education 2022 [employer]. Follow Up Care 04/30/2023 12:48:57 With:JES HUNTER PA-C, URL Address: [address] [place] [id number] When: Unknown [facility] [place] 04-17-2023 Note Echocardiology Procedure Exam Date/Time Accession # Ordering Echo Transthoracic 04/16/2023 14:37 EST [id number] Jose PATRICK, Ramone Butt CPT code 22015 49734 Reason for Exam (Echo Transthoracic Complete) I25.10;CAD Coronary artery disease Report Version: 1 Study ID: [id number] [facility] [address] [place] [address] Adult Echocardiogram Report Name: MEGHANA CRAIG Study Date: 04/16/2023, 1: 10 PM Patient Location: [facility] : 1970 (MM/DD/YYYY) Gender: Female Age: 52 [...] Signed by: Ramone Garcia MD Transcribed by: [facility] Technologist: GARRY Bravo [facility] [...] understanding and is agreeable to treatment plan [facility] Other 07-12-2023 Evaluation note* Encounter Date Diagnosis [...] - Z20.822) Oct, Bronchitis (ICD-10 - J40) [facility] Other Evaluation + Plan note Future Appointments Appointment Date:05/13/2023 03:45:00 PM Scheduled Provider:Ramone Garcia MD Location:[facility]iology Clinic Appointment Type:Cardiology Follow Up (FT) Future Scheduled Tests Radiology* NM Myocardial Spect Rest/Stress 1 Day 03/22/23 * Echo Transthoracic [facility] Future Appointments Appointment Date:05/13/2023 03:45:00 PM Scheduled Provider:Ramone Garcia MD Location:[facility]Cardiology Clinic Appointment Type:Cardiology Follow Up ([facility]) [facility] assessment information available [facility] Work Phone: Hislaeu general Narrative - Reported* Type Description Date Surgical History hysterectomy Surgical History lumbar [facility] Other History of Present illness Narrative* The [...] medication regimen. She denies medication side effects. [facility] 250 DO Work Phone: Hospital course Narrative No data available for this section [facility] No data available for this section [facility] No data available for this section [facility] Assessments No Assessments Information Available Family [...] dyspnea. * Patient was recently hospitalized at [facility]. The patient was seen in Cardiology consult with subsequent cardiovascular management by [facility]. Hospitalization records have been reviewed. * Reason for Cardiology Consultation: chest pain (presented with spontaneous PTX) * Consulting Fur Trimming Machine Operator: Dr. Lopez * Cardiovascular testing: [...] evaluation. * Last week she presented to [facility] due to chest pain and dizziness. Initial [...] and fluttering . 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 Due to blood pressure and palpitations [...] Primary Care Provider Active Jes Vasquez , GENERAL MAGISTRATE-C Attending Provide r Active Goals (unrecognized section [...] CREATED AUTHOR AUTHOR'S ORGANIZ ATION 07/29/2022 [facility] DATE CREATED AUTHOR AUTHOR'S ORGANIZ ATION 08/16/2022 [facility] DATE CREATED AUTHOR AUTHOR'S ORGANIZ ATION 06/18/2023 [facility] DATE CREATED AUTHOR AUTHOR'S ORGANIZ ATION 08/31/2023 [facility] REASON FOR VISIT (unrecogniz ed [...] BE BASED ON THE PRIMARY CLINICAL RECORDS. [facility] [employer] provides no warranty or guarantee of the accuracy or completeness of information in this document.
--- NOTE | 2023-09-10 20:52 | ECG_ITS ---
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
--- NOTE | 2023-09-10 21:11 | CT_ITS ---
The [address] [address] Patient Name: MEGHANA KEY MRN: [id number] date: 1970 Sex: F Assigned Patient Location: ER Current Patient Location: ER Accession/Order Number: [id number] Exam Date: 09/10/2023 21:54 Report Date: 09/10/2023 22:21 At the request of: SELINA HALE Procedure: CT thoracic spine wo con EXAM: CT thoracic spine wo con HISTORY: trauma COMPARISON: CT abdomen pelvis 08/28/2023 TECHNIQUE: Unenhanced axial CT of the thoracic spine was performed with coronal and sagittal reformats provided. FINDINGS: Vertebral body heights and alignment are preserved. No acute fracture or aggressive osseous abnormalities. Paraspinal soft tissues are within normal limits. No significant degenerative disc disease of the thoracic spine. Sequelae of centrilobular and paraseptal emphysematous disease. Right apical scarring is noted. CT/CT thoracic spine wo con IMPRESSION: No acute osseous abnormality of the thoracic spine. Sequelae of centrilobular and paraseptal emphysematous disease. Electronically authenticated by: MITCH BLAKE Date: 09/10/2023 22:21
--- NOTE | 2023-09-10 21:11 | CT_ITS ---
[address] [address] Patient Name: MEGHANA KEY MRN: [id number] date: 1970 Sex: F Assigned Patient Location: ER Current Patient Location: Accession/Order Number: [id number] Exam Date: 09/10/2023 21:49 Report Date: 09/10/2023 22:07 At the request of: SELINA HALE Procedure: CT cervical spine wo con INDICATION: 53 years old; Female. Syncope yesterday. Complaining of headache and neck pain today with dizziness. TECHNIQUE: CT Head (ax/cor/sag reformats). Ionizing radiation dose reduced via iterative reconstruction/FBP blend and body size kV/mA adjustment. Comparison: None A portion examination is degraded by motion artifacts. FINDINGS: POSTOPERATIVE CHANGES: None. BRAIN PARENCHYMA: No intraparenchymal or extra-axial hemorrhage. No mass effect. No midline shift or herniation. Normal melendez/white differentiation. VENTRICLES/EXTRA-AXIAL SPACES: Normal for patient's age. SINUSES/MASTOIDS: Sinuses are clear although the paranasal sinuses are not completely included. Mastoids and middle ears are clear. MSK: No displaced or depressed calvarial fracture. OTHER: No hyperdense intraluminal thrombus. TECHNIQUE: CT imaging of the cervical spine was performed. IV contrast: None. Dose reduction techniques were achieved by using automated exposure control and/or adjustment of mA and/or kV according to patient size and/or use of iterative reconstruction technique. COMPARISON: None available. FINDINGS: POSTOPERATIVE CHANGES: None. ALIGNMENT: Nonspecific straightening of the normal cervical curve. COMPRESSION FRACTURES: Generalized bony demineralization. No fracture or vertebral body collapse. No bone displacement. No asymmetric widening of the facets. PREVERTEBRAL SOFT TISSUES: Normal. CRANIOCERVICAL JUNCTION: There is a normal relationship of the occipital condyles, lateral masses of C1, and articular surfaces of C2. The base of the dens and body of C2 are intact. There is a well-corticated bony density noted adjacent to the medial aspect of the atlantoaxial joint on the right. This is consistent with a ligamentous calcification. There is normal predental space. Osteophyte formation is seen arising from the undersurface of the anterior arch of C1. POSTERIOR FOSSA: The cerebellar tonsils are above the foramen magnum. Disc levels: C2-C3: No disc herniation. No spinal canal or foraminal narrowing. C3-C4: No disc herniation. No spinal canal or foraminal narrowing. C4-C5: No disc herniation. No spinal canal or foraminal narrowing. C5-C6: No disc herniation. No spinal canal or foraminal narrowing. C6-C7: Disc space narrowing. Allowing for Beam hardening artifacts, there is disc bulging and endplate osteophyte formation. Uncovertebral joint degeneration present on the left. Central canal patent. Mild left foraminal stenosis. C7-T1: The morning artifacts. Central canal and neural foramina patent. UPPER THORACIC SPINE: Not included in the examination. OTHER: No thyroid nodule or adenopathy. CT/CT cervical spine wo con IMPRESSION: 1. A portion of the brain images are degraded by patient motion. 2. Allowing for artifact, no acute intracranial abnormality. No hemorrhage or mass effect. 3. No cervical fracture. No disc herniation or bony stenosis. Electronically authenticated by: SAMIA MARIE Date: 09/10/2023 22:07
--- NOTE | 2023-09-10 21:11 | CT_ITS ---
[address] [address] Patient Name: MEGHANA KEY MRN: [id number] date: 1970 Sex: F Assigned Patient Location: ER Current Patient Location: Accession/Order Number: [id number] Exam Date: 09/10/2023 21:45 Report Date: 09/10/2023 22:07 At the request of: SELINA HALE Procedure: CT head/brain wo con INDICATION: 53 years old; Female. Syncope yesterday. Complaining of headache and neck pain today with dizziness. TECHNIQUE: CT Head (ax/cor/sag reformats). Ionizing radiation dose reduced via iterative reconstruction/FBP blend and body size kV/mA adjustment. Comparison: None A portion examination is degraded by motion artifacts. FINDINGS: POSTOPERATIVE CHANGES: None. BRAIN PARENCHYMA: No intraparenchymal or extra-axial hemorrhage. No mass effect. No midline shift or herniation. Normal melendez/white differentiation. VENTRICLES/EXTRA-AXIAL SPACES: Normal for patient's age. SINUSES/MASTOIDS: Sinuses are clear although the paranasal sinuses are not completely included. Mastoids and middle ears are clear. MSK: No displaced or depressed calvarial fracture. OTHER: No hyperdense intraluminal thrombus. TECHNIQUE: CT imaging of the cervical spine was performed. IV contrast: None. Dose reduction techniques were achieved by using automated exposure control and/or adjustment of mA and/or kV according to patient size and/or use of iterative reconstruction technique. COMPARISON: None available. FINDINGS: POSTOPERATIVE CHANGES: None. ALIGNMENT: Nonspecific straightening of the normal cervical curve. COMPRESSION FRACTURES: Generalized bony demineralization. No fracture or vertebral body collapse. No bone displacement. No asymmetric widening of the facets. PREVERTEBRAL SOFT TISSUES: Normal. CRANIOCERVICAL JUNCTION: There is a normal relationship of the occipital condyles, lateral masses of C1, and articular surfaces of C2. The base of the dens and body of C2 are intact. There is a well-corticated bony density noted adjacent to the medial aspect of the atlantoaxial joint on the right. This is consistent with a ligamentous calcification. There is normal predental space. Osteophyte formation is seen arising from the undersurface of the anterior arch of C1. POSTERIOR FOSSA: The cerebellar tonsils are above the foramen magnum. Disc levels: C2-C3: No disc herniation. No spinal canal or foraminal narrowing. C3-C4: No disc herniation. No spinal canal or foraminal narrowing. C4-C5: No disc herniation. No spinal canal or foraminal narrowing. C5-C6: No disc herniation. No spinal canal or foraminal narrowing. C6-C7: Disc space narrowing. Allowing for Beam hardening artifacts, there is disc bulging and endplate osteophyte formation. Uncovertebral joint degeneration present on the left. Central canal patent. Mild left foraminal stenosis. C7-T1: The morning artifacts. Central canal and neural foramina patent. UPPER THORACIC SPINE: Not included in the examination. OTHER: No thyroid nodule or adenopathy. CT/CT head/brain wo con IMPRESSION: 1. A portion of the brain images are degraded by patient motion. 2. Allowing for artifact, no acute intracranial abnormality. No hemorrhage or mass effect. 3. No cervical fracture. No disc herniation or bony stenosis. Electronically authenticated by: SAMIA MARIE Date: 09/10/2023 22:07
--- NOTE | 2023-09-10 21:14 | ED.DIZZY1 ---
HPI - Dizziness General Chief Complaint: Dizziness Stated Complaint: Dizziness, Headache Time Seen by Provider: 09/10/23 20:40 Source: patient Mode of arrival: Wheelchair Limitations: no limitations History of Present Illness HPI Narrative: past history of substance abuse and alcohol abuse. States both of her adult children from overdose. She was able to stop using drugs. states her recently and she has been drinking up to 1/2 5th alcohol daily. Stop drinking heavily about one week ago. Would still occ drink a couple of shots of alcohol. States last drink alcohol yesterday. history of mental health. States she had not taken any of her mental health medications for several months but starting taking them again yesterday. Took Seroquel, Effexor and Neurontin yesterday and today. 2 days ago while at work she became light headed. Sounds became muffled and she passed out at work. States her boss told her she was only unresponsive for a short time. She has since been experiencing left frontal headache and dizziness. Vertiginous dizziness. She continued to work but tonight was sent to the ER boss. Demonstrates while lying in the bed if she tilts her head forward and then extends it back up she becomes dizzy . She has neck pain since her fall. No numbness or her extremities or weakness. No nausea or vomiting. Denies pain of her back, chest or abdomen. No fever or chest pain Related Data Home Medications ?Medication ?Instructions ?Recorded ?Confirmed clonazepam 0.5 mg tablet (Klonopin) 0.5 mg PO BID 03/05/23 05/03/23 albuterol sulfate 90 mcg/actuation 2 inh inhalation Q4H PRN 04/28/23 05/03/23 aerosol inhaler bronchospasm atorvastatin 20 mg tablet 20 mg PO DAILY 04/28/23 05/03/23 isosorbide mononitrate 30 mg 30 mg PO DAILY 04/28/23 05/03/23 tablet,extended release 24 hr sertraline 100 mg tablet 100 mg PO DAILY 04/28/23 05/03/23 quetiapine 50 mg tablet (Seroquel) 50 mg PO DAILY 05/03/23 05/03/23 Previous Rx's ?Medication ?Instructions ?Recorded alendronate 70 mg tablet (Fosamax) 70 mg PO QWEEK 12 weeks #12 tabs 05/03/23 aspirin 81 mg tablet,delayed 81 mg PO BID 30 days #60 tabs 05/03/23 release (Adult Low Dose Aspirin) cefadroxil 500 mg capsule 500 mg PO BID 7 days #14 caps 05/03/23 cholecalciferol (vitamin D3) 125 125 mcg PO DAILY 90 days #90 caps 05/03/23 mcg (5,000 unit) capsule docusate sodium 100 mg capsule 100 mg PO BID PRN constipation 7 05/03/23 (Colace) days #14 caps ondansetron 4 mg disintegrating 4 mg PO Q8H PRN nausea and 05/03/23 tablet vomiting 5 days #15 tabs oxycodone-acetaminophen 5 mg-325 1 tab PO Q6H PRN pain 7 days #28 05/03/23 mg tablet (Percocet) tabs tizanidine 2 mg tablet 2 mg PO TID PRN muscle spasticity 05/03/23 7 days #21 tabs Allergies Allergy/AdvReac Type Severity Reaction Status Date / Time codeine Allergy Hives Verified 09/10/23 20:44 Review of Systems ROS Status of ROS 10 or more systems reviewed and unremarkable except as noted in history and below [facility] Medical History (Updated 09/10/23 @ 23:18 by Jose Mills MD) Arthritis ?M19.90 - Unspecified osteoarthritis, unspecified site (ICD-10) Back pain ?M54.9 - Dorsalgia, unspecified (ICD-10) Anemia ?D64.9 - Anemia, unspecified (ICD-10) Depression ?F32.A - Depression, unspecified (ICD-10) Anxiety ?F41.9 - Anxiety disorder, unspecified (ICD-10) COVID-19 ?U07.1 - COVID-19 (ICD-10) Electronic cigarette use ?Z78.9 - Other specified health status (ICD-10) Chronic obstructive pulmonary disease ?J44.9 - Chronic obstructive pulmonary disease, unspecified (ICD-10) GERD (gastroesophageal reflux disease) ?K21.9 - Gastro-esophageal reflux disease without esophagitis (ICD-10) Dyspnea on exertion ?R06.09 - Other forms of dyspnea (ICD-10) Irregular heart beat ?I49.9 - Cardiac arrhythmia, unspecified (ICD-10) Coronary artery disease ?I25.10 - Atherosclerotic heart disease of havas[place]ai coronary artery without angina pectoris (ICD-10) Hypertension ?I10 - Essential (primary) hypertension (ICD-10) Hallux rigidus ?M20.20 - Hallux rigidus, unspecified foot (ICD-10) Hallux valgus ?M20.10 - Hallux valgus (acquired), unspecified foot (ICD-10) Palpitation ?R00.2 - Palpitations (ICD-10) Costochondritis ?M94.0 - Chondrocostal junction syndrome [Tietze] (ICD-10) Coronary vasospasm ?I20.1 - Angina pectoris with documented spasm (ICD-10) Spontaneous pneumothorax (03/2021) ?J93.83 - Other pneumothorax (ICD-10) Admission for pleural drainage tube placement ?Z46.82 - Encounter for fitting and adjustment of non-vascular catheter (ICD-10) Surgical History (Updated 03/05/23 @ 13:50 by Harleen Holden NP) History of cardiac catheterization ?Z98.890 - Other specified postprocedural states (ICD-10) History of foot surgery ?Z98.890 - Other specified postprocedural states (ICD-10) History of spinal surgery ?Z98.890 - Other specified postprocedural states (ICD-10) History of hysterectomy ?Z90.710 - Acquired absence of both cervix and uterus (ICD-10) Family History (Updated 03/05/23 @ 13:50 by Harleen Holden NP) Other Family history of DVT Family history of hypertension Family history of liver cancer Family history of myocardial infarction Family history of stroke Social History (Updated 03/05/23 @ 13:43 by Harleen Holden NP) Within the past year, how often did you have a drink containing alcohol: 2-3 times a week Smoking status: Current every day smoker What tobacco products do you use: cigarettes Packs per day: 1 Years smoked: 18 Smoking pack-years: 18.00 Do you use any of these nicotine containing products: e-cigarettes and vaping products Non-prescribed substance use: cannabis (any form) Highest level of school completed/degree received: high school graduate Exam Constitutional Vital Signs, click to edit/add: Last Vital Signs Temp 98.8 F 09/10/23 20:44 Pulse 75 09/10/23 22:26 Resp 16 09/10/23 22:25 BP 135/60 06/07/24 22:28 Pulse Ox 95 09/10/23 22:25 O2 Del Method Room Air 09/10/23 20:44 Common normals: no apparent distress, average body habitus, oriented x3, no limitations, healthy appearing, alert and well nourished [facility] Common normals: normocephalic and head/scalp atraumatic Tympanic membrane: TMs normal bilaterally Eye Common normals: PERRL and EOMs intact bilaterally Neck & C-Spine Other: C-spine nontender. Mild tenderness upper T-spine. left paracervical Cervical tenderness. no swelling Chest Common normals: inspection of chest normal Respiratory Common normals: normal respiratory effort, no retractions, no use of accessory muscles and clear to auscultation bilaterally Cardio Common normals: regular rate, regular rhythm, S1 normal heart sound and S2 normal heart sound GI Common normals: Normal to inspection, nondistended, normoactive bowel sounds present, soft to palpation and non-tender Extremity Common normals: normal to inspection and full ROM Neuro Common normals: oriented x3, CN's II-XII intact bilaterally, moves all extremities and no focal motor deficits Psych Appearance: grossly normal Course Vital Signs Vital signs: Vital Signs Temperature 98.8 F 09/10/23 20:44 Pulse Rate 84 09/10/23 20:44 Respiratory Rate 16 09/10/23 20:44 Blood Pressure 143/96 H 09/10/23 20:44 Pulse Oximetry 96 09/10/23 20:44 Oxygen Delivery Method Room Air 09/10/23 20:44 Temperature 98.8 F 09/10/23 20:44 Pulse Rate 75 09/10/23 22:26 Respiratory Rate 16 09/10/23 22:25 Blood Pressure 135/60 09/10/23 22:28 Pulse Oximetry 95 09/10/23 22:25 Oxygen Delivery Method Room Air 09/10/23 20:44 MDM - Dizziness MDM Narrative Medical decision making narrative: patient presents after either a syncopal episode a couple of days ago. She had also restarted her mental health medications the same day after not taking them for several months. She was at work when she passed out and states her boss who witnessed the episode stated she was unresponsive for very short time. she has continued to work these past coupe of days but because of dizziness her boss advised her to come to the ER. She has vertiginous dizziness that is reproducible with change in position of her head. CT brain and C-spine without acute findings. Labs unremarkable except urine drug screen positive for marijuana. Patient also has history of substance abuse including alcohol abuse. Has stop using street drugs and has significantly reduced her intake of alcohol in the past week. Her BAL is 16 and she has no outward signs of withdrawal. Her dizziness improved significantly with combination of antivert and ativan. She is dischrged home with a prescription for both and advised to follow up with her doctor Lab Data Labs: Lab Results 09/10/23 09/10/23 09/10/23 Range/Units 20:56 21:35 22:39 WBC 7.9 (4.0-11.0) 10^3/uL RBC 3.59 L (4.20-5.40) 10^6/uL Hgb 11.8 L (12.0-16.0) g/dL Hct 35.7 L (36.0-48.0) % MCV 99.4 H (81.0-99.0) fL MCH 32.9 (26.7-34.0) pg MCHC 33.1 (29.9-35.2) g/dL RDW 13.5 (11.0-15.0) % Plt Count 331 (150-450) 10^3/uL MPV 10.4 (9.5-13.5) fL Neut % (Auto) 47.7 (43.0-75.0) % Lymph % (Auto) 36.4 (20.5-60.0) % [place] % (Auto) 12.2 H (1.7-12.0) % Eos % (Auto) 2.4 (0.9-7.0) % Baso % (Auto) 1.0 (0.2-2.0) % Neut # (Auto) 3.7 (1.4-6.5) 10^3/uL Lymph # (Auto) 2.9 (1.2-3.8) 10^3/uL [place] # (Auto) 1.0 H (0.3-0.8) 10^3/uL Eos # (Auto) 0.2 (0.0-0.7) 10^3/uL Baso # (Auto) 0.1 (0.0-0.1) 10^3/uL Abs Immat Gran (auto) 0.02 (0.00-0.03) 10^3/uL Imm/Tot Granulo (auto) 0.3 (0.0-0.5) % Sodium 140 (136-145) mmol/L Potassium 3.9 (3.5-5.1) mmol/L Chloride 105 (98-107) mmol/L Carbon Dioxide 23.4 (21.0-32.0) mmol/L Anion Gap 15.5 BUN 20.0 H (7.0-18.0) mg/dL Creatinine 1.06 H (0.55-1.02) mg/dL Est GFR ( Amer) >60 (>=60) Est GFR (Non-Af Amer) 54 L (>=60) BUN/Creatinine Ratio 18.9 Glucose 97 (74-106) mg/dL Lactate 1.2 (0.4-2.0) mmol/L Calcium 9.0 (8.5-10.1) mg/dL Total Bilirubin 0.1 L (0.2-1.0) mg/dL AST 14 L (15-37) U/L ALT 28 (14-59) U/L Alkaline Phosphatase 93 (46-116) U/L Troponin I High Sens 4.8 4.5 (4.0-51.3) pg/mL Total Protein 6.9 (6.4-8.2) g/dL Albumin 3.4 (3.4-5.0) g/dL Globulin 3.5 g/dL Albumin/Globulin Ratio 1.0 Urine Color Lt. yellow (YELLOW) Urine Clarity Clear (CLEAR) Urine pH 6.0 (5.0-9.0) Ur Specific [place] >=1.030 A (1.005-1.025) Urine Protein Negative (NEG/TRACE) mg/dL Urine Glucose (UA) Negative (NEGATIVE) mg/dL Urine Ketones Negative (NEGATIVE) mg/dL Urine Occult Blood Moderate A (NEGATIVE) Urine Nitrite Negative (NEGATIVE) Urine Bilirubin Negative (NEGATIVE) Urine Urobilinogen 0.2 (0.2-1.0) EU/dL Ur Leukocyte Esterase Negative (NEGATIVE) Urine RBC 5-10 A (0-2) #/HPF Urine WBC 0-2 A (NONE SEEN) #/HPF Ur Squamous Epith Cells Few A (NONE/RARE) #/LPF Urine Crystals None seen (None Seen) #/HPF Urine Bacteria None seen (NONE SEEN) #/HPF Urine Casts None seen (NONE SEEN) #/LPF Urine Mucus None seen (NONE SEEN) Ur Culture Indicated? No Urine Opiates Screen Negative (NEGATIVE) Ur Buprenorphine Scrn Negative (NEGATIVE) Ur Oxycodone Screen Negative (NEGATIVE) Urine Methadone Screen Negative (NEGATIVE) Ur Barbiturates Screen Negative (NEGATIVE) U Tricyclic Antidepress Negative (NEGATIVE) Ur Phencyclidine Scrn Negative (NEGATIVE) Ur Amphetamines Screen Negative (NEGATIVE) U Methamphetamines Scrn Negative (NEGATIVE) U Benzodiazepines Scrn Negative (NEGATIVE) Urine Cocaine Screen Negative (NEGATIVE) U Cannabinoids Screen Positive A (NEGATIVE) Ethanol Quant 16 mg/dL Discharge Plan Discharge Stand Alone Forms: Portal Instructions Chief Complaint: Dizziness Clinical Impression: Concussion, Cervical muscle strain, Vertigo Patient Disposition: Home, Self-Care Prescriptions / Home Meds: No Action clonazepam [Klonopin] 0.5 mg tablet 0.5 mg PO BID albuterol sulfate 90 mcg/actuation HFA aerosol inhaler 2 inh INHALATION Q4H PRN (Reason: bronchospasm) atorvastatin 20 mg tablet 20 mg PO DAILY isosorbide mononitrate 30 mg tablet extended release 24 hr 30 mg PO DAILY sertraline 100 mg tablet 100 mg PO DAILY quetiapine [Seroquel] 50 mg tablet 50 mg PO DAILY Patient Comments: will increase dose to 100 mg after 5 days of the 50 mg. alendronate [Fosamax] 70 mg tablet 70 mg PO QWEEK 84 Days Qty: 12 0RF aspirin [Adult Low Dose Aspirin] 81 mg tablet,delayed release (DR/EC) 81 mg PO BID 30 Days Qty: 60 0RF cefadroxil 500 mg capsule 500 mg PO BID 7 Days Qty: 14 0RF oxycodone-acetaminophen [Percocet] 5-325 mg tablet 1 tab PO Q6H PRN (Reason: pain) 7 Days Qty: 28 0RF Rx Instructions: Previously tolerated docusate sodium [Colace] 100 mg capsule 100 mg PO BID PRN (Reason: constipation) 7 Days Qty: 14 0RF ondansetron 4 mg tablet,disintegrating 4 mg PO Q8H PRN (Reason: nausea and vomiting) 5 Days Qty: 15 0RF cholecalciferol (vitamin D3) 125 mcg (5,000 unit) capsule 125 mcg PO DAILY 90 Days Qty: 90 0RF tizanidine 2 mg tablet 2 mg PO TID PRN (Reason: muscle spasticity) 7 Days Qty: 21 0RF Print Language: [place]ian Instructions: Cervical Strain (ED), Vertigo (ED), Concussion (ED) Additional Instructions: drink plenty of fluids and follow up with your doctor in 2-[address] Shane Referrals: Physician,Non-Staff, MD [Primary Care Provider] - 1 week
[2023-09-10 21:20] LABS: Basophils Absolute Auto 0.1 10^3/uL (0.0-0.1); Eosinophils Absolute Auto 0.2 10^3/uL (0.0-0.7); Eosinophils Percent Auto 2.4 % (0.9-7.0); Hematocrit 35.7 % (36.0-48.0); Hemoglobin 11.8 g/dL (12.0-16.0); Immature Granulocytes Abs Auto 0.02 10^3/uL (0.00-0.03); Immature Granulocytes Pct Auto 0.3 % (0.0-0.5); Lymphocytes Absolute Auto 2.9 10^3/uL (1.2-3.8); Lymphocytes Percent Auto 36.4 % (20.5-60.0); Mean Corpuscular HGB Conc 33.1 g/dL (29.9-35.2); Mean Corpuscular Hemoglobin 32.9 pg (26.7-34.0); Mean Corpuscular Volume 99.4 fL (81.0-99.0); Mean Platelet Volume 10.4 fL (9.5-13.5); Monocytes Percent Auto 12.2 % (1.7-12.0); Neutrophils Absolute Auto 3.7 10^3/uL (1.4-6.5); Neutrophils Percent Auto 47.7 % (43.0-75.0); Platelet Count 331 10^3/uL (150-450); Red Blood Count 3.59 10^6/uL (4.20-5.40); Red Cell Distribution Width 13.5 % (11.0-15.0); White Blood Count 7.9 10^3/uL (4.0-11.0)
[2023-09-10] MEDS: MECLIZINE HCL 12.5 MG TABLET 25 MG PO (21:23)
[2023-09-10] MEDS: LORAZEPAM 2 MG/ML VIAL 0.5 MG IV (21:23)
[2023-09-10] MEDS: 0.9 % SODIUM CHLORIDE 1,000 ML 999 ML IV (21:23)
[2023-09-10 21:32] LABS: Alanine Aminotransferase 28 U/L (14-59); Albumin Level 3.4 g/dL (3.4-5.0); Alkaline Phosphatase 93 U/L (46-116); Anion Gap 15.5; Aspartate Amino Transferase 14 U/L (15-37); BUN Creatinine Ratio 18.9; Bilirubin Total 0.1 mg/dL (0.2-1.0); Carbon Dioxide 23.4 mmol/L (21.0-32.0); Chloride 105 mmol/L (98-107); Estimated GFR (African America >60 (>=60); Estimated GFR (Non-African Ame 54 (>=60); Globulin 3.5 g/dL; Glucose 97 mg/dL (74-106); Potassium 3.9 mmol/L (3.5-5.1); Sodium 140 mmol/L (136-145); Total Protein 6.9 g/dL (6.4-8.2)
[2023-09-10 21:34] LABS: Ethanol 16 mg/dL; Lactate/Lactic Acid 1.2 mmol/L (0.4-2.0); Troponin I High Sensitivity 4.8 pg/mL (4.0-51.3)
[2023-09-10] MEDS: PROMETHAZINE HCL 12.5 MG in 0.9 % SODIUM CHLORIDE 50 ML 202 MG IV (21:36)
[2023-09-10 21:44] LABS: Bilirubin Urine NEGATIVE (NEGATIVE); Blood Urine MODERATE (NEGATIVE); Clarity Urine CLEAR (CLEAR); Color Urine LT. YELLOW (YELLOW); Glucose Urine UA NEGATIVE (NEGATIVE); Ketones Urine NEGATIVE (NEGATIVE); Leukocyte Esterase Urine NEGATIVE (NEGATIVE); Nitrite Urine NEGATIVE (NEGATIVE); Protein Urine NEGATIVE (NEG/TRACE); Specific Gravity Urine >=1.030 (1.005-1.025); Urobilinogen Urine 0.2 EU/dL (0.2-1.0)
[2023-09-10 21:46] LABS: Urine Microscopic Indicated YES
[2023-09-10 21:53] LABS: Bacteria Urine NONE SEEN #/HPF (NONE SEEN); Cast Seen? NONE SEEN #/LPF (NONE SEEN); Crystals Seen? None Seen #/HPF (None Seen); Mucus Urine NONE SEEN (NONE SEEN); Squamous Epithelial Cell Urine FEW #/LPF (NONE/RARE); WBC Urine 0-2 #/HPF (NONE SEEN)
[2023-09-10 21:54] LABS: Urine Culture Indicated NO
[2023-09-10 21:56] LABS: Amphetamine Screen Urine NEGATIVE (NEGATIVE); Barbiturates Screen Urine NEGATIVE (NEGATIVE); Benzodiazepines Screen Urine NEGATIVE (NEGATIVE); Buprenorphine Screen Urine NEGATIVE (NEGATIVE); Cannabinoid Screen Urine POSITIVE (NEGATIVE); Cocaine Screen Urine NEGATIVE (NEGATIVE); Methadone Screen Urine NEGATIVE (NEGATIVE); Methamphetamines Screen Urine NEGATIVE (NEGATIVE); Opiate Screen Urine NEGATIVE (NEGATIVE); Oxycodone Screen Urine NEGATIVE (NEGATIVE); Phencyclidine Screen Urine NEGATIVE (NEGATIVE); Tricyclic Antidepressant Urine NEGATIVE (NEGATIVE)
[2023-09-10 23:03] LABS: Troponin I High Sensitivity 4.5 pg/mL (4.0-51.3)
== END 2023-09-10 23:31 | disposition home or self-care (01) ==
PROVIDERS: Emergency Provider Internal Medicine
DX: S06.0X0A Concussion without loss of consciousness, initial encounter (principal); S16.1XXA Strain of muscle, fascia and tendon at neck level, initial encounter; R42 Dizziness and giddiness; W19.XXXA Unspecified fall, initial encounter; F17.210 Nicotine dependence, cigarettes, uncomplicated; F12.10 Cannabis abuse, uncomplicated; F10.10 Alcohol abuse, uncomplicated
CPT/HCPCS: 36415; 70450; 72125; 72128; 80053; 80307; 80320; 81001; 83605; 84484; 85025; 93005; 96361; 96374; 96375; 99285

== ENCOUNTER 2023-09-26 18:17 | Emergency (ER) | payer OTHER, SELFPAY ==
[2023-09-26 18:21] VITALS: BP 146/82; PULSE 89; TEMP 36.7; O2SAT 98; BMI 23.1
--- OUTSIDE RECORDS SUMMARY | 2023-09-26 18:27 | XMS_ITS ---
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 Nadia Lainez Referring Curtis Vasquez, MsShyanne Jeskvng Kaur Primary Care Unavailable Rome, Shyanne Nadia Tanvi Lainez Attending Curtis Vasquez, MsShyanne Jes Natasha Primary Care Unavailable Rome, Shyanne Nadia Tanvi Lainez Attending Tanya Colby Unavailable Loretta Javier Unavailable JES VASQUEZ Primary Care Physician [phone] NO FAMILY, PHYSICIAN Primary Care Unavailable Jes Vasquez Admitting U Jes Belcher Attending U Jes Belcher Admitting U Jes Belcher Primary Care U navJes Rolon Attending U bharti NO FAMILY, PHYSICIAN Primary Care Unavailable Jes Vasquez Admitting U navailJes Baez Attending U CUATE Eugene Attending Unavailable JES VASQUEZ Primary Care Unavailab CUATE Olson Attending CUATE Jones Referring Unavailable JES VASQUEZ Primary Care Unavailab JES Henderson Attending Unavailable JES VASQUEZ Referring Unavailab Roosevelt Plummer Attending Unavailable NONE, XXXX Referring Unavailable JES VASQUEZ Referring Unavailab Ramone Willson Admitting Unavaila Ramone Hart Attending UnavailRamone Mendez Referring Unavaila Ramone Hart Admitting Unavaila Ramone Hart Consulting Unavaila Ramone Hart Attending MD Ramone Xiao Consulting Unava ilRamone Franz Consulting UnavailJES Rich Admitting Unavailable JES HUNTER Attending Unavailable Unavailable Unavailable Unavailable Allergies Allergy Classification Reported Allergen(s) Allergy Type Date of Onset Reaction(s) Facility (18 sources) Codeine; Translations: [codeine] Drug Allergy 09-03-2012 hives, Eruption of skin present [facility] Encounters Encounter Date Encounter Type Care Provider Facility Start: 09-18-2023 End: 09-19-2023 Emergency department patient visit CUATE KELLY [facility] Start: 09-13-2023 End: 09-13-2023 ambulatory Roosevelt Sotelo Facility:[facility] Start: 09-13-2023 End: 09-13-2023 Patient encounter procedure Roosevelt Sotelo [facility] Start: 08-10-2023 End: 08-10-2023 ambulatory JES HUNTER Facility:[facility] Start: 08-10-2023 End: 08-10-2023 Lab Drop off JES HALERY [facility] Start: 08-10-2023 End: 08-10-2023 ambulatory JES Akhtar ELSA Facility: [facility] Start: 08-10-2023 End: 08-10-2023 Patient encounter procedure JES HALERY [facility] Start: 06-09-2023 End: 06-09-2023 ambulatory Jes Natasha Anthony Facility:[facility] Start: 04-27-2023 ambulatory JESKVNG HUNTER Facility :[facility] Start: 04-16-2023 End: 04-16-2023 ambulatory Ramone Garcia Facility:[facility] Start: 04-16-2023 End: 04-16-2023 Patient encounter procedure Ramone Garcia [facility] Start: 04-01-2023 End: 04-01-2023 ambulatory PHYSICIAN NO FAMILY Facility:[facility] Start: 03-22-2023 End: 03-22-2023 ambulatory EJS Terrie VASQUEZ Facility:[facility] Start: 03-22-2023 End: 03-22-2023 Patient encounter procedure Ramone Garcia [facility] Start: 12-15-2022 End: 12-15-2022 ambulatory Loretta Javier Other [facility] Other Start: 12-15-2022 Office outpatient visit 25 minutes Loretta Javier [facility] Start: 10-14-2022 End: 10-14-2022 ambulatory Tanya Glover Other [facility] Other Start: 10-14-2022 Office outpatient visit 15 minutes Tanya Glover [facility] Start: 08-14-2022 ambulatory Ms. Jes Vasquez Facility: Start: 08-14-2022 FUV, Provider: Nadia Franks, Status: Pen, Time: 1:00 PM No PCP None [facility] 250 DO Work Phone: Start: 08-06-2022 Rx Renewal No PCP None [facility] 250 DO Work Phone: Start: 06-24-2022 Office outpatient visit 15 minutes No PCP None [facility] 250 DO Work Phone: Start: 06-24-2022 ambulatory Ms. Nadia mendoza Facility: Start: 06-19-2022 End: 06-19-2022 ambulatory PHYSICIAN NO FAMILY Facility:[facility] Start: 06-19-2022 End: 06-19-2022 ambulatory PHYSICIAN NO [facility] Work Phone: Start: 06-19-2022 End: 06-19-2022 Departed Referred PHYSICIAN NO [facility] Start: 06-17-2022 End: 06-17-2022 ambulatory RIVER MARTE . Facility: Start: 11-10-2021 ambulatory Ms. Nadia mendoza Facility: Start: 10-27-2021 Rx Renewal No PCP None [facility] 250 DO Work Phone: Start: 06-02-2021 Office outpatient visit 25 minutes No PCP None [facility] 250 DO Work Phone: Medical Equipment Procedure Code Equipment Code Equipment Origin al Text Equipment Identifier Dates Thoracotomy Staple line-reinforcement strip [id number] FDA Start: 03-26-2021 Thoracotomy Surgical adhesive/sealant, human-derived ()[id number] FDA Start: 03-26-2021 Goals Date Patient Goal Desired Activity /State Immunizations Immunization Date Immunization Notes Care Provider Fa regino 03-25-2021 influenza, injectabl e, quadrivalent, preservative free No PCP None [facility] 01-05-2020 influenza, injectabl e, quadrivalent, preservative free No PCP None [facility] 250 DO Work Phone: 01-06-2019 influenza, injectabl e, quadrivalent, preservative free [facility] Medications Current Medications Medication Drug Class(es) Dates Sig (Normalized) Sig (Original) aspirin 81 mg delayed release oral tablet (13 sources) Platelet Aggregation Inhibitor, Nonsteroidal Anti-inflammatory Drug [...] Days Not-Taking atorvastatin 40 mg oral tablet (13 sources) HMG-CoA Reductase Inhibitor Start: 03-22-2023 take 1 tablet by mouth once daily atorvastatin 40 mg Tab 40 mg = 1 tab(s), Oral, Daily, # 30 tab(s), Refills(s) 3, Pharmacy: [facility], 164, cm, 03/22/23 13:24:00 EST, Height/Length Dosing, 64.7, kg, 03/22/23 13:24:00 EST, Weight Dosing Start Date: 03/22/23 Status: Ordered Start: 04-04-2021 take 20 mg by mouth once daily in the evening Atorvastatin Active 20 MG PO Every evening April 04, 2021 1:00am busPIRone hydrochloride 15 mg oral tablet (9 sources) Start: 01-17-2020 take 1 mg by [...] Not-Takin g clonazePAM 0.5 mg oral tablet (5 sources) Benzodiazepine Start: 03-22-2023 take 0.25 mg by mouth twice daily Klonopin 0.5 mg Tab 0.25 mg = 0.5 tab(s), Oral, BID, Refills(s) 0 Start Date: 03/22/23 Status: Ordered cyclobenzaprine hydrochloride 5 mg oral tablet (8 sources) Muscle Relaxant Start: 10-19-2019 End: 03-24-2021 [...] 2021 1:00am gabapentin 300 mg oral capsule (11 sources) Anti-epileptic Agent Start: 05-26-2021 take 1 [...] 2019 12:00am October 19, 2019 12:57pm Motrin (8 sources) Nonsteroidal Anti-inflammatory Drug Start: 01-17-2020 take [...] mononitrate 30 mg extended release oral tablet (13 sources) Nitrate Vasodilator Start: 03-22-2023 take 1 tablet by mouth once daily in the morning isosorbide mononitrate 30 mg ER Tab 30 mg = 1 tab(s), Oral, qAM, # 30 tab(s), Refills(s) 3, Pharmacy: [facility], 164, cm, 03/22/23 13:24:00 EST, Height/Length Dosing, 64.7, kg, 03/22/23 13:24:00 EST, Weight Dosing Start Date: 03/22/23 Status: Ordered Start: 04-04-2021 take 60 mg by mouth once daily Isosorbide Mononitrate Active 60 MG PO Daily April 04, 2021 1:00am lamoTRIgine 25 mg chewable tablet (8 sources) Mood Stabilizer, Anti-epileptic Agent Start: 01-17-2020 [...] not exceed 3 doses per episode olanzapine (8 sources) Atypical Antipsychotic Start: 01-17-2020 olanzapine Refills(s) 0 Start Date: 01/17/20 Status: Ordered Start: 01-09-2019 End: 03-24-2021 take 10 mg by mouth once daily at bedtime Olanzapine Discontinued 10 MG PO Daily at bedtime January 09, 2019 12:00am March 24, 2021 4:09pm OLANZapine Not-T aking oxybutynin chloride 5 mg oral tablet (5 sources) Cholinergic Muscarinic Antagonist Start: 02-08-2020 take 2 tablets by mouth at bedtime as needed oxybutynin 5 mg Tab 10 mg = 2 tab(s), Oral, Bedtime, PRN Other (see comment), Nocturia, # 60 tab(s), Refills(s) 3, Pharmacy: [facility], 165, cm, 01/17/20 11:18:00 EDT, Height/Length Dosing, 88, kg, 01/17/20 11:18:00 EDT, Weight Dosing Start Date: 02/08/20 Status: Ordered pantoprazole 40 mg extended release oral tablet (5 sources) Proton Pump Inhibitor Start: 01-17-2020 take 1 mg by mouth once daily pantoprazole 40 mg Oral EC Tab mg tab(s), Oral, Daily, Refills(s) 0 Start Date: 01/17/20 Status: Ordered Prazosin (6 sources) alpha-Adrenergic Malinda Start: 01-17-2020 prazosin Oral, TID, Refills(s) 0 Start Date: 01/17/20 Status: Ordered Start: 10-19-2019 End: 03-24-2021 Prazosin Discontinued 1 MG P O As Directed October 19, 2019 12:00am Delta 20th, 2021 4:09pm sertraline 100 mg oral tablet (5 sources) Serotonin Reuptake Inhibitor Start: 03-22-2023 take 1 tablet by mouth once daily Zoloft 100 mg Tab 100 mg = 1 tab(s), Oral, Daily, # 30 tab(s), Refills(s) 0 Start Date: 03/22/23 Status: Ordered Vitamin D3 50,000 intl units oral capsule (3 sources) Start: 08-10-2023 Vitamin D3 50, 000 intl units oral capsule 1,250 mcg = 1 cap(s) Start Date: 08/10/23 Status: Ordered Completed/Discontinued Medications Medication Drug Class(es) Dates Sig (Normalized) Sig (Original) [id number] 200 actuat albuterol 0.09 mg/actuat metered dose [...] 12 hrs for 10 day(s) Oct, Not-Taking ciprofloxacin 500 mg oral tablet (1 source) Quinolone Antimicrobial Start: 08-20-2023 take 1 tablet by mouth once daily Cipro 500 mg Tab 500 mg = 1 tab(s), Oral, Daily, Take 1 tablet the day before the procedure and 1 tablet after the procedure, # 2 tab(s), Refills(s) 0, Pharmacy: [facility], 164, cm, 08/10/23 9:37:00 EDT, Height/Length Dosing, 66, kg, 08/10/23 9:37:00 EDT, Weight Dosing Start Date: 08/20/23 Status: Ordered 24 hr dilTIAZem hydrochloride 180 mg extended release oral capsule (5 sources) Calcium Channel Malinda Start: 06-24-2022 take 1 capsule by mouth once daily dilTIAZem HCl ER 180 MG Oral Capsule Extended Release 24 Hour TAKE 1 CAPSULE ONCE DAILY. Quantity: 90 Refills: 3 Ordered: 24-Jun-2022 Nadia Mancuso Start : 24-Jun-2022 Active Start: 06-02-2021 take 1 capsule by mo [facility] once daily dilTIAZem HCl ER [...] 30 Refills: 1 Ordered: 02-Jun-2021 Migel Peter [employer] Start : 02-Jun-2021 Active Start: 01-09-2019 End: 10-19-2019 Nicotine Discontinued 1 EACH TRANSDERML Daily 7 January 09, 2019 12:00am October 19, 2019 12:57pm predniSONE 20 mg oral tablet (2 sources) Start: 10-14-2022 take 1 tablet by mouth every twelve hours predniSONE 20 MG 1 tablet Orally bid for 5 day(s) Oct, Not-Taking Payers Date Payer Category Payer Self-pay [id number] 1970 Unknown [id number] [id number]. 593 1970 Unknown [id number] 2.16.840.1.267376.3.579.2. 356 1970 Unknown [id number] 2.16.840.1.340659.3.579.2. 356 1970 Unknown [id number] 2.16.840.1.975790.3.579.2. 356 1970 Unknown [id number] 2.16.840.1.922063.3.579.2. 1286 1970 Unknown [id number] 2.16.840.1.544975.3.579.2. 1286 1970 Unknown [id number] 2.16.840.1.111924.3.579.2. 727 1970 Unknown [id number] 2.16.840.1.651059.3.579.2. 727 1970 Unknown [id number] 2.16.840.1.376721.3.579.2. 727 1970 Unknown [id number] 2.16.840.1.217161.3.579.2. 727 1970 Unknown [id number] 2.16.840.1.141345.3.579.2. 727 1958 Medicaid [id number] Private Health Insurance [id number] Unknown [id number] Unknown [facility] Unknown [id number] Unknown [id number] 2.16.840.1.259255.3.579.2. 531 Unknown [id number] 2.16.840.1.408454.3.579.2. 531 Unknown [id number] [id number]. 531 Plan of Treatment Date Care Activity Detail Author Start: 08-14-2022 FUV, Provider: Nadia Franks, Status: Pen, Time: 1:00 PM [facility]UV, Provider: Nadia Franks, Status: Pen, Time: 1:[address] [facility] 250 DO Work Phone: Start: 11-10-2021 FUV, Provider: Nadia rFanks, Status: Pen, Time: 3:00 PM FUV, Provider: Nadia Franks, Status: Pen, Time: 3:[address] [facility] 250 DO Work Phone: Start: 06-30-2021 FUV, Provider: Nadia Franks, Status: Pen, Time: 8:00 AM [facility]UV, Provider: Nadia Franks, Status: Pen, Time: 8:[address] [facility] 250 DO Work Phone: Problems Active Problems Problem Classification Problem Date Documented Da te Episodic/Chronic Abdominal pain (8 sources) Abdominal pain; Translations: [Unspecified abdominal pain] Onset: 08-10-2023 01-17-2020 Episodic Adjustment disorders (1 source) Complicated grieving; Translations: [Adjustment disorder with depressed mood] 01-06-2019 Chronic Adjustment disorders (1 source) Complicated grieving; Translations: [Complicated bereavement] Episodic Anxiety disorders (6 sources) Anxiety; Translations: [Anxiety disorder, unspecified] Onset: 06-09-2023 03-18-2023 Chronic Calculus of urinary tract (4 sources) History of calculus of kidney; Translations: [Personal history of urinary calculi] Onset: 08-10-2023 Episodic Cardiac dysrhythmias (6 sources) Palpitations; Translations: [Palpitations] Onset: 09-13-2023 Episodic Chronic obstructive pulmonary disease and bronchiectasis [...] Episodic Coronary atherosclerosis and other heart disease (12 sources) Coronary atherosclerosis; Translations: [Coronary atherosclerosis of [place] coronary artery] 04-03-2021 Chronic Disorders of lipid metabolism (5 sources) Mixed hyperlipidemia; Translations: [Mixed hyperlipidemia] Chronic Essential hypertension (11 sources) Benign hypertension; Translations: [Benign essential hypertension] Onset: 06-19-2022 03-18-2023 Chronic Genitourinary symptoms and ill-defined conditions (11 sources) Incontinence; Translations: [Urge incontinence of urine] Onset: 08-10-2023 01-17-2020 Chronic Genitourinary symptoms and ill-defined conditions (20 sources) Blood in urine; Translations: [Microscopic hematuria] Onset: 04-01-2023 01-17-2020 Episodic Headache; including migraine (1 source) Headache; including migraine; Translations: [Headache, unspecified] Onset: 09-18-2023 Mood disorders (9 sources) Major depressive disorder; Translations: [Major depressive [...] Episodic Other diseases of kidney and ureters (3 sources) Cyst of kidney 08-10-2023 Episodic Other [...] BOTH CERVIX AND UTERUS] Onset: 06-19-2022 Episodic Residual codes; unclassified (1 source) Hallucinations Onset: 09-18-2023 Episodic Spondylosis; intervertebral disc disorders; other back problems (5 sources) Low back pain 02-08-2020 Episodic Substance-related disorders (19 sources) Polysubstance abuse ; Translations: [Smoker] Onset: 06-09-2023 01-06-2019 Chronic Comment on above: 1 pack per daily.; Added secondary to d ocumentation in Social History. Suicide and intentional self-inflicted injury (2 sources) Suicidal thoughts; Translations: [Suicidal ideations] 01-05-2019 Episodic Syncope (1 source) Syncope and collapse; Translations: [Syncope and collapse] Onset: 09-13-2023 Episodic Unclassified (5 sources) Finding of sensation of bladder 02-08-2020 Unclassified (1 source) EMS Onset: 09-18-2023 Urinary tract infections (5 sources) Chronic interstitial cystitis 02-08-2020 Chronic Past or Other Problems Problem Classification Problem Date Documented Date Episodic/Chronic Chronic obstructive pulmonary disease and bronchiectasis (5 sources) Chronic obstructive pulmonary disease and bronchiectasis 03-18-2023 Nonspecific chest pain (6 sources) Chest wall pain; Translations: [Other chest pain] Onset: 06-17-2022 05-26-2021 Episodic Unclassified (1 source) Contact with and (suspected) exposure to covid-19 Z20.822 Unclassified (5 sources) Bipolar (qualifier value) 03-18-2023 Procedures Date Procedure Procedure Detail Performing Clinician Cardiac catheter (physical object) Ramone Garcia Cardiac catheterization No P CP None Colonoscopy Ramone Chase [employer] Hysterectomy Ramone Chase [employer] Operative procedure on foot No PCP None Procedure on back No PCP Non e Procedure on back Ramone salomon Results Test Name Value Interpretation Reference Range Facility Coding Summary.on 09-23-2023 Coding Summary. BPQATchq00QNk6hPl+PG hl YWQ+IB6WPVSnG96doCAulP 5mY6CHKDhUBxfrHRPCVEeJ OqQorjEgXI0syINzNQTh IC8+OD1cBVTaBpseoNLqn2 J7rYS6C05fdg3eTBpxbVE7 SPWtOwJzsamkj5tinVr3KG cuNmluOyBt LWQibW29EHC0pC15Xg34aX UrlCXvz2xejEr3VgHlIVTv FEQ1rSyaQHidw1LhNFWcY4 1laZPqc1K0 ITQswYcwgBAmGcGdgWB5pX 9nMRnwxmpdl9ytpcvaNya6 rt93vBFay6U3vYR1T9Eqhw H5IBRxxXCh NmxlhFHVrM0uluann1dhho kqOsDdRQEcFLc0XSl5HURf wInqDqMsXN66NIP1XEPwqn StL7BlZJWu mJasMxM9y6M2Zz0LX2ZPSf ppP7VHWKOFAKrheTN+PC90 xh08Y9CoJsxqBij3IHVmVC H2wCO7qT5f MTPhTWzzo3L5fQM1X1Cavy Wkot9oj2afSLXbQNffD85a zCNzg9I1UUKmhTV0MUUqwG bvEpBzwH55 Oyc+GACloAqlp7AuClpfe4 jbi4juvOh1ZhczHHErmdBa rHisCZF9p8BjYj6cRRIafV K6mQT3wY9g YkPvEvV0NIdnC990NwZnoW RzOgraA12eX5EqgWZ+PHRy Ivy0QKUssQgpTV6gD0UkSR RpbmctbGVm lBvhTJ2zHBRkgmveBVWdmL 9jRBXzH0f5KpRsQpM0JXkm T0FhMIHghrdnFm10kX3eQv IeHlF2LStu B3VjhiM2VUTboNPzUIbyIP H2Z91rw2M7OTJrWSPoYDL2 dAS7oD7azXuwqztfbCMjhY sgdmVydGlj TPjpSQzbG801XSJfzScbIi NvZGluZyBEYXRlOiAgMDYv MjAvMjAyNDwvdGQ+PHRkIH F9eSlhXSWm rGNrMVsyMl6ooRztjPdtUV 0bNXUelupsZSPobW2jOCQm jSZocKelIP7wKJKbjfaga2 38IpIpPIN6 NJYyzAFzB6UzaB6vRpNqNJ VxUGCqH8XfdLAmSRoiV406 TPmgEuX8FMRjtmFkG4UdKQ FsaWduOiB0 g0K0Bw3Zp4HfrjhsE9KbtX JlVdMlHcxqIBl5B1KoBoit dHI+PU91JYPlBJ34OAo0XL S0fKdiMAkh MRAgR8GmhO0qHuMnKXTiEW RkOyc+PHRhYmxlIHdpZHRo YWqvHYPlPhLeoLoyNW5rIk 9yZGVyLWNv vIsfsWZzVeCbc9zpWARsZD ynAN9jwJolD0OcrLL7ZOJd y7c0Lt55Q70vV3MehJW+PG YwuVF2nWU1 nT9nZlBiCmZ3EYvlB810Qd ZnqEAeUelzq2plc0jerXo0 JmB6GDNbviOviKnmFPD9e9 DzEy92F61p IHdpZHRoPSIxNSUiIHZhbG ijvz4kcK8mIo9+PGNvbCB3 xPV0lA6cTjGuIoF5AJfvJ1 49InRvcCIv Jpend9cik4gwyYp3QpHkIJ WtsrCarMyjRDD9g1ElRq72 U2ImoNsbd2NzQei9fy69iY Azk2W2lUH0 J9MbJYQkttpojZFcnPrfDF 4tBIDreyvaFIUdgK7iBIOg H3r9QpCvTpY7WXpgH1Vdki T1AZAsmFWq JWSrzKCBbZ4iwevtw8mmxw amDqUlVFPkYSv1FDj9OTBt rDdiFjDhLMG2UnX9LEZ7mK GrnB4zrNaf phkznM2vMld+KZD6sSQcnI CKCE8oSeawbVP+PHRkIHN0 iOppMWexBSQbhL6xAZLvS4 p3DzZdRoS9 FZaxD3NmzrP4UDEdlBSsCW ZjyGMTlV3fritib5yanlna NaVfGNFvBBx1VHk9MXYusE duOiBsZWZ0 AoG1KBU1sMFeoX1qzUagsx ptuD9iZdo+QmlydGggRGF0 SBk9P4PoEso1VFSpiVlsEH 0ncGFkZGlu Md1ozLacyXixYF6hDSRnio lez510CyWbj8ruDNLmxHIn KBgtFKU8F12xg6V9PFQiDE OnAMD2yST6 cG6yrKvurpwxtMZqcDwcgb VsdKekNSgtGVxmR041MQMn vFdtVzLdUPz3C8ZsLms8FJ YxiQblQM9e sIMaKYejWd0dbSpljSscJH 3oPYGflrscp426UtYei8vt GIHjbUJdBLtdGKK5L06od6 P6QUAfZFRn JQY5vZZ3fX9owYvcudnteI VmdDsgdmVydGljYWwtYWxp D149HVTpfIptAvHjrHa6P5 MyFpv7UGDi gCrhBO8bfVGhTCtfLp2aoN hjvIfmHK2kOKJyfjzat815 GlSyn9kwSBXqnXUoWRrbLC M2M50fm4I0 VERsPTIxFOD0wQY6iZ8cnD lnbjogbGVmdDsgdmVydGlj JSjpAJpcD368SOPtmOmnXv BhdGllbnQg CDcqHHw8K9WjAvrctCO+PC 54MBJlUQ95cFSdrDJhv0uy zOd0AcXpYFWeRWT3wPgbDD ann2PcAEHu S53ddJSfb0G0GGFqzRpkhY OvXlCvtZT5yN1oWVohvjyt a9gikicvPjwlb6cntm26yN 80A73tAVrl ZHRoPSIzMCUiIHZhbGlnbj 6otF0zKc1+WWEqbRU1kHL0 sW3sTPOoYuE1DYbvB722Xe RvcCIvPjxj a1gcj4prcIs2FzK2BBApkm XaqCtsYNT8l2JpTd24B12r IHdpZHRoPSIyMCUiIHZhbG znbk2ebT0i Ii8+LFEmfFU1kGG1eG8gDm QlCqC5CEkaT187EvAesXHf UzipN96mJ3AjmSA+PHRyPj p5JIJijEuq PQ3tmAZwXLdzJt7bNKD6Vu IuIzHiANibH3JbYLSpwtad vxugmFE3IVKkBMFqlF13Km 9udDogMTBw zAUByK2queygd4wwkeubPa VhKUKkUZa0DNa3IRXblYrp HfJnFCV1QqG9PUD6mBHidT 1hbGlnbjog xX5zX8SpMUXiapzzHy36jW 4dInRjSsB4UTkdRgy+Q09S QklOLCBDSEVOTkkgSzwvdG Q+PHRkIHN0 cCbjPKmeXHGljJ3bDAOdJ8 m6BeZoCvL3LUijD6NtPOZp xnebFj35zD4jPxNbJhJ7AP mfG6KkpsA9 UWRijZDkQYmyPMO7R81mf2 F8FIAxGZWsMKF3uDI3fA6d bGlnbjogbGVmdDsgdmVydG ljYWwtYWxp V079GWQdsMpfLfHpWxMkDw P8XuJ9B4HqKra2XITnuTta OU7mjXDsUPkfPq4hhGsytW tmCV5lCVOp ylyaXXHkaC8uOGUmuPSoxS nfME5qOLVgnfwfa458IkKu WDK1TOAqcYYrU9JmyN4rLh AjMDAwMDAw F6KuhAUvIDpvG450LTwkHp L8FZOhjyCsB4XdGBIuxTys RgS6u5E3Uy17UrVUARKsdg wvdGQ+PHRk ZRZ9qTmjGLqlUVRmcW5aPS PhZ7h8OjQcGpQ0NZafE1Ea HKOeooryPs99yN9lHoPvNy D4TRzuZ7Jx nbC5WAOfmDXyLHgyKAK2L8 3ss4F7HASnUHThMMZ9aTF4 bN8rrTfjogfqgSRbzNxida VydGljYWwt YJyiR666IFHisOupVwMsqJ FsZTwvdGQ+NKSuTIA3uUso LQncNGXtrS9zOYFjE8w6Pr PdQcH8GLcl Q0CxIEKmmlpdQu09oL0bWd CrQhQ7WKedO4QqoxO2RBUr hDOvDRrnIRK3U70kn1F0WW MwMDAwMDA7 jBO1mY8vwEnpbkzooKGzqK zeymSvcGhsMIjjFFwlJ517 LOBeyThcZr59uZDwiAjegl M2A3FaUasd dHI+WO50YGQcVK51aRTjeC Kuf3yqtNe6JvLvFLHoHYN6 gErsYWgfo1UoXWDqU22qjD Mjr8Q4SFRr iCcmsBAmKiBkgKY4lY2fSI fzeavjh4wxiaoiTwwks4jq vr64fH55O72yQYttKGEqAO IzMCUiIHZh qEtsdk8npZ8qYz4+PGNvbC T3mZT9rV4fHtNiUbA8NTnd N005PeNmpUBxLiznu4zdc4 vabSj4HcTw NPDtxcLkyCjfOXR6k5EhNo 02B12oSLsoEBWmMHHfSZBg AEElbFfawo8okE3xTw6+PC 4qq1bwqa48 lU48fQJ+FAGeONF9nAahOG ueEKMdjS6pNLalHrB5QTDe OxKjnU10xFVtVGnaCu8hxR sbeEqtID0j FYHgzcrww608VaLxq4mtUM KgeQRdKXjlQTQ9H33uu2R2 GSLjWNCrUMC6iXV1yX0orC lnbjogbGVm dDsgdmVydGljYWwtYWxpZ2 85LJWeuJdkXgSslXVkP2af jnKBCF2fLuexaGB+PHRkIH N6dNavZBqq BWHcyQ2gVEFjU3a0HiMhQt M2NIaoO0EritI1CKSboCIq SQTaiODOxV3bqihqq4agho ogIzAwMDAw EEm3HEj9PNCwdTceXiJbXB N3OhF2DWO1kGJkyL3uaKat fnncnE1bZbc+RklOOjwvdG Q+PHRkIHN0 fLqbPPsiYUSfuH2iMPXvT1 a3XuQkGhD0NOrhZ0TsgoY8 TAAgtAQnZEKizEZOtA6iqu dwc7goqsci DbYhJRMbOZx3BVr0OLXuoN trBqLnMJA5WdN0LLH1kXYy rI2qiDgdmjsufD2vGhr+TV JOOjwvdGQ+ UBTnOZE4uOgnFIblDUSlpR 7bLMNvY9s6BvDjMeS8IKww V5OavwE6EGFqgXMfHGIgaK WMkE6lpnpv g6thmrpjTbZqSIFiQWq0PT y4AWBtbZciAnVfXIN9LkX9 KOO7wNEmnF5slUyttwzpyD 9wOyc+UGF5 GHU0WH23KK97I1QyKmngrS FibGU+PHRhYmxlIHdpZHRo LCrsCQPcLkKqbAbfOD1uFu 9yZGVyLWNv bGxhcHNlOiBjb (more content not included)... Normal [facility] CBC AND AUTO DIFFon 09-18-19 24 ABSOLUTE BASOPHIL 0.0 X10E9/L Normal 0.0-0.2 [facility] Comment on above: Performed By: #### C BCA, CMP, 3040-3 #### [facility] ([id number]) [address] [place] [address] ABSOLUTE NEUTROPHIL 3.2 X10E9/L Normal 1.5-6.6 [facility] Comment on above: Performed By: #### Terrie KIRKPATRICK CMP, 3 #### [facility] ([id number]) [address] [place] [address] Basophils/100 WBC (Bld) 0.7 % Normal [facility] Comment on above: Performed By: #### Terrie KIRKPATRICK CMP, 3039-06 #### [facility] ([id number]) [address] [place] [address] 48[address] Eosinophils (Bld) [#/Vol] 0.1 10*3/uL Normal 0.0-0.4 [facility] Comment on above: Performed By: #### Terrie KIRKPATRICK CMP, 3039-06 #### [facility] ([id number]) [address] [place] [address] 03371 Eosinophils/100 WBC (Bld) 2.4 % Normal [facility] Comment on above: Performed By: #### Terrie KIRKPATRICK CMP, 3039-06 #### [facility] ([id number]) [address] [place] [address] 34182 Erythrocyte distribution width (RBC) [Ratio] 13.6 % Normal 11.5-15.0 [facility] Comment on above: Performed By: #### Terrie KIRKPATRICK CMP, 3039-06 #### [facility] ([id number]) [address] [place] [address] 399[address] Hematocrit (Bld) [Volume fraction] 34.5 % Low 35-47 [facility] Comment on above: Performed By: #### Terrie KIRKPATRICK CMP, 3 #### [facility] ([id number]) [address] [place] [address] 89966 Hemoglobin (Bld) [Mass/Vol] 11.6 g/dL Low 11.7-15.5 [facility] Comment on above: Performed By: #### C KAYA CMP, 3039-06 #### [facility] ([id number]) [address] [place] [address] 60185 Lymphocytes (Bld) [#/Vol] 1.9 10*3/uL Normal 1.0-3.5 [facility] Comment on above: Performed By: #### Terrie KIRKPATRICK CMP, 3039-06 #### [facility] ([id number]) [address] [place] [address] 01239 Lymphocytes/100 WBC (Bld) 30.9 % Normal [facility] [facility] Comment on above: Performed By: #### Terrie KIRKPATRICK CMP, 3039-06 #### [facility] ([id number]) [address] [place] [address] 83596 MCH (RBC) [Entitic mass] 33.1 pg Normal 27-34 [facility] Comment on above: Performed By: #### Terrie KIRKPATRICK CMP, 3039-06 #### [facility] ([id number]) [address] [place] [address] 49028 MCHC (RBC) [Mass/Vol] 33.6 g/dL Normal 32-36 [facility] Comment on above: Performed By: #### Terrie KIRKPATRICK CMP, 3039-06 #### [facility] ([id number]) [address] [place] [address] 54500 MCV (RBC) [Entitic vol] 99 fL Normal 80-100 [facility] Comment on above: Performed By: #### Terrie KIRKPATRICK CMP, 3039-06 #### [facility] ([id number]) [address] [place] [address] 92811 Monocytes (Bld) [#/Vol] 0.9 10*3/uL Normal 0-0.9 [facility] Comment on above: Performed By: #### Terrie KIRKPATRICK CMP, 3040-3 #### [facility] ([id number]) [address] [place] [address] 91050 Monocytes/100 WBC (Bld) 13.8 % Normal [facility] Comment on above: Performed By: #### Terrie KIRKPATRICK, CMP, 3040-3 #### [facility] ([id number]) [address] [place] [address] 96450 Neutrophils/100 WBC (Bld) 52.2 % Normal [facility] Comment on above: Performed By: #### Terrie KIRKPATRICK, CMP, 3039-3 #### [facility] ([id number]) [address] [place] [address] 17130 Platelet mean volume (Bld) [Entitic vol] 9.1 fL Normal 7-12 [facility] Comment on above: Performed By: #### Terrie KIRKPATRICK CMP, 3 #### [facility] ([id number]) [address] [place] [address] 56326 Platelets (Bld) [#/Vol] 291 10*3/uL Normal 150-450 [facility] Comment on above: Performed By: #### Terrie KIRKPATRICK, CMP, 3 #### [facility] ([id number]) [address] [place] [address] 17459 RBC COUNT 3.50 X10E12/L Low 3.80-5.20 [facility] Comment on above: Performed By: #### Terrie KIRKPATRICK, CMP, 3039-3 #### [facility] ([id number]) [address] [place] [address] 29495 WBC (Bld) [#/Vol] 6.2 10*3/uL Normal 4.0-11.0 [facility] Comment on above: Performed By: #### Terrie KIRKPATRICK, CMP, 3039-3 #### [facility] ([id number]) [address] [place] [address] 28064 COMPREHENSIVE METABOLIC PANE Hema 09-18-2023 Albumin [Mass/Vol] 3.8 g/dL Normal 3.2-5.3 [facility] Comment on above: Performed By: #### C KEYSHAWN KIRKPATRICK, 3039-3 #### [facility] ([id number]) [address] [place] [address] 45280 ALP [Catalytic activity/Vol] 64 U/L Normal 39-130 [facility] Comment on above: Performed By: #### C BCA, CMP, 3039-3 #### [facility] ([id number]) [address] [place] [address] 56541 ALT [Catalytic activity/Vol] 18 U/L Normal 0-31 [facility] Comment on above: Performed By: #### C KAYA CMP, 3039-3 #### [facility] ([id number]) [address] [place] [address] 88936 Anion gap [Moles/Vol] 7 mmol/L Normal 5-15 [facility] Comment on above: Performed By: #### C KAYA [facility], 3039-3 #### [facility] ([id number]) [address] [place] [address] 80301 AST [Catalytic activity/Vol] 19 U/L Normal 0-41 [facility] Comment on above: Performed By: #### C BCA, CMP, 3039-3 #### [facility] ([id number]) [address] [place] [address] 61053 Bilirubin [Mass/Vol] 0.6 mg/dL Normal 0.3-1.2 [facility] Comment on above: Performed By: #### C BCA, CMP, 3039-3 #### [facility] ([id number]) [address] [place] [address] 69313 Calcium [Mass/Vol] 8.4 mg/dL Low 8.5-10.5 [facility] Comment on above: Performed By: #### C KAYA [facility], 3039-3 #### [facility] ([id number]) [address] [place] [address] 31428 Chloride [Moles/Vol] 105 mmol/L Normal 98-109 [facility] Comment on above: Performed By: #### C KAYA [facility], 3039-3 #### [facility] ([id number]) [address] [place] [address] 17797 CO2 [Moles/Vol] 26 mmol/L Normal 22-32 [facility] Comment on above: Performed By: #### Terrie KIRKPATRICK [facility], 3039-3 #### [facility] ([id number]) [address] [place] [address] 39544 Creatinine [Mass/Vol] 1.03 mg/dL High 0.40-1.00 [facility] Comment on above: Result Comment: METH OD TRACEABLE TO IDMS STANDARD Performed By: #### C KAYA [facility], 3 #### [facility] ([id number]) [address] [place] [address] 78473 GFR/1.73 sq M.predicted among non-blacks MDRD (S/P/Bld) [Vol rate/Area] 65 mL/min/{1.73_m2} Normal >59 [facility] Comment on above: Result Comment: Reported eGFR is based on the CKD-EPI 1 equation that does not use a race coefficient. Performed By: #### C KEYSHAWN KIRKPATRICK, 3039-3 #### [facility] ([id number]) [address] [place] [address] 23681 Glucose [Mass/Vol] 99 mg/dL Normal 65-99 [facility] Comment on above: Performed By: #### Terrie KIRKPATRICK CMP, 3039-3 #### [facility] ([id number]) [address] [place] [address] 44938 Potassium [Moles/Vol] 3.4 mmol/L Low 3.5-5.0 [facility] Comment on above: Performed By: #### C KAYA [facility], 3040-3 #### [facility] ([id number]) [address] [place] [address] 97209 Protein [Mass/Vol] 6.9 g/dL Normal 6.0-8.0 [facility] Comment on above: Performed By: #### C KAYA [facility], 3040-3 #### [facility] ([id number]) [address] [place] [address] 25471 Sodium [Moles/Vol] 138 mmol/L Normal 134-146 [facility] Comment on above: Performed By: #### C KAYA [facility], 3040-3 #### [facility] ([id number]) [address] [place] [address] 07673 Urea nitrogen [Mass/Vol] 10 mg/dL Normal 5-23 [facility] Comment on above: Performed By: #### C KAYA [facility], 3040-3 #### [facility] ([id number]) [address] [place] [address] BRAIN WO CONTon 4 CT BRAIN WO CONT CT BRAIN WO CONT STUDY: CT BRAIN WO CONT INDICATION: Head trauma, repeat vomiting (Age 18-64y). TECHNIQUE: * CT head was performed without intravenous contrast using the standard protocol. Automated exposure control was utilized. * All CT scans at this facility use dose modulation, iterative reconstruction, and/or weight based dosing when appropriate to reduce radiation dose to as low as reasonably achievable. FINDINGS: No evidence of acute intracranial hemorrhage, territorial infarct, mass effect, midline shift, or extra-axial fluid collection. Ventricles, sulci and cistern are unremarkable. Brain volume is age appropriate. Orbits and globes appear unremarkable. Soft tissues are unremarkable. Intracranial atherosclerosis. Paranasal sinuses are broadly clear. Mastoid air cells are broadly clear. No evidence of aggressive osseous lesion. IMPRESSION: * No acute intracranial abnormality, by CT. Finalized by Johny Frances on 09/18/2023 9:21 PM Normal [facility] LIPASEon 09-18-2023 Lipase [Catalytic activity/Vol] 36 U/L Normal 17-40 [facility] Comment on above: Performed By: #### C BCA, CMP, 3040-3 #### [facility] ([id number]) [address] [place] [address] 92088 URN MACROSCOPIC NURon 2023 BILIRUBIN SHADY Negative Normal NEG [facility] Comment on above: Performed By: #### N UM #### [facility] ([id number]) [address] [place] [address] 21253 BLOOD/HGB SHADY Trace Abnormal NEG [facility] Comment on above: Performed By: #### N UM #### [facility] ([id number]) [address] [place] [address] 51320 GLUCOSE SHADY Negative Normal NEG [facility] Comment on above: Performed By: #### N UM #### [facility] ([id number]) [address] [place] [address] 38521 KETONES SHADY Negative Normal NEG [facility] Comment on above: Performed By: #### N UM #### [facility] ([id number]) [address] [place] [address] 75132 LEUKOCYTE ESTERASE SHADY Negative Normal NEG [facility] Comment on above: Performed By: #### N UM #### [facility] ([id number]) [address] [place] [address] 08883 NITRITE SHADY Negative Normal NEG [facility] Comment on above: Performed By: #### N UM #### [facility] ([id number]) [address] [place] [address] 56896 PH SHADY 6.0 Normal 5.0-8.5 [facility] Comment on above: Performed By: #### N UM #### [facility] ([id number]) [address] [place] [address] PROTEIN SHADY Negative Normal NEG [facility] Comment on above: Performed By: #### N UM #### [facility] ([id number]) [address] [place] [address] SPECIFIC GRAVITY SHADY 1.010 Normal 1.003-1.035 [facility] Comment on above: Performed By: #### N UM #### [facility] ([id number]) [address] [place] [address] 87037 UROBILINOGEN SHADY 0.2 eu/dL Normal <1.1 [facility] Comment on above: Performed By: #### N UM #### [facility] ([id number]) [address] [place] [address] 77657 Consent for Treatmenton 09-03 Consent for Treatment [id number]#1.0 0TIFF Normal [facility] Heart and Vascular Office/Cl [facility] Noteon 09-13-2023 Heart and Vascular Office/Clinic Note Chief Complaint TESTING RESULTS History of Present Illness Patient is a 53-year-old female with past medical history of bipolar depression, genitourinary issues, history of smoking cigarettes and family history of CAD. Patient comes to office for 6-month follow-up At last visit, saw Dr. Garcia at which time he ordered a stress test and echo prior to procedure patient needed to have done. Stress test came back with no identified ischemia or infarction was considered a low risk study. Echo came back grossly normal. Patient was cleared for need to procedure. Today in office, patient reports that she had syncopal episode 2 days ago. She was at work and it was hot and she passed out. Went to the ER the following day and their workup was unremarkable for any acute findings. Patient reports that she has not passed out since that time and has not really had much lightheadedness or dizziness since then. Patient reports that she has also been cutting down on her alcohol use. She states she was drinking a half a gallon of liquor a day previously. Has been cutting down to only a few shots a night the last week or so. She has plans to go into detox in the next few days. Patient also reports she has had heart palpitations in the recent past. She does admit to losing her in November and her daughter in May and that has been very hard for her. She does wonder if some of her palpitations are related to anxiety, but sometimes will get them at unexplained times. They are only coming on a few times a month and she describes them as heart fluttering's. They do not usually last more than 30 to 45 minutes. Patient denies chest pain, shortness of breath, and swelling in lower legs. Review of Systems PHQ Score Initial Depression Screen Score: 0 SCORE ROS - Provider Constitutional: no fever, no chills, no sweats, no weakness Respiratory: no shortness of breath, no cough Cardiovascular: no chest pain, positive for heart palpitations Neuro: yes dizziness. no loss of consciousness Physical Exam Vitals & Measurements HR: 90(Peripheral) BP: 125/85 SpO2: 99% HT: 65 in HT: 164 cm WT: 65.4 kg WT: 143.88 lb BMI: 24.32 General: alert, no acute distress Cardiovascular: regular rate and rhythm, no murmur normal peripheral perfusion Respiratory: Lungs CTAB, respirations non labored Extremities: no edema left lower extremity. no edema right lower extremity Neurological: oriented x 4, LOC appropriate for age, speech normal Skin: Warm, dry, intact- no rash or concerning lesions Cardiac Diagnostics (04/16/2023 11:41 EST NM Myocardial Spect Rest/Stress 1 Day) FINDINGS: Uptake of the tracer was homogeneous with no identifiable ischemia or infarction. The TID ratio was 0.94. The ejection fraction was 79%, end diastolic volume was 66 mL. CONCLUSIONS: Negative treadmill nuclear stress test, overall low risk stress. [1] (04/16/2023 14:37 EST Echo Transthoracic Complete) Interpretation Summary Ejection Fraction = 60-65%. Normal LV and RV. No significant valve disease. Normal estimated PA pressure. Normal diastolic filling pattern. [2] Assessment/Plan 1. Syncope (R55: Syncope and collapse) Patient had syncopal episode a couple days ago at work. Was seen in the ER the following day and no acute findings at that time. Had grossly normal echo and stress test in 04/2023. So want to get ultrasound of carotid arteries to rule that out as cause of syncope. Patient is also going to be going into alcohol detox in near future and has been cutting down here recently and that could have related to her syncopal episode as well. Ordered: Event Monitor US Carotid Duplex Bilateral 2. Heart palpitations (R00.2: Palpitations) Patient complains of heart palpitations at times. Seems to come on randomly. Only occurring a few times a month. So want to get an event monitor to rule out arrhythmia. Want to make sure arrhythmia is not the reason patient had syncopal episode as well Ordered: Event Monitor US Carotid Duplex Bilateral Follow-up with me in 3 months or sooner if testing results are back Portions of this record may have been created with voice recognition artificial intelligence software, specifically [employer] and or [employer]. Substitutions may have occurred due to the inherent limitations of voice recognition and artificial intelligence software. Follow-up No qualifying data available Problem List/Past Medical History Ongoing Bipolar depression Feeling of incomplete bladder emptying Flank pain Hematuria History of kidney stones Interstitial cystitis Lower back pain Microscopic hematuria Mixed incontinence Nocturia Poor urinary stream Renal cyst Smoker Urge incontinence Urgency of urination Historical Anxiety Bipolar COPD (Chronic Obstructive Pulmonary Disease) Assessment Test scale Coronary spasm Hypertension Substance abuse Procedure/Surgical History Ca (more content not included)... Normal [facility] Comment on above: Result Comment: Elec tronically Signed By: Deepak MOSES, Roosevelt Remy\.br\Date and Time Signed: 09/13/23 13:41 EDT Insurance Correspondenceon 0 09-13-2023 Insurance Correspondence [id number]#1.0 0TIFF Normal [facility] Outside Labson 09-13-2023 Outside Labs [id number]#1. 00TIFF Normal [facility] Outside Recordson 09-13-2023 Outside Records [id number]#1. 00TIFF Normal [facility] Outside Records [id number]#1. 00TIFF Normal [facility] Physician Orderon 09-13-2023 Physician Order [id number]#1. 00TIFF Normal [facility] RAD - CT Reporton 08-31-20[address] - [address] Report [id number]#1.00 TIFF Normal [facility] Lab Reportson 08-17-2023 Lab Reports [id number]#1.0 0TIFF Normal [facility] Urine Cytology ([facility])on 08-17-2023 Microscopic exam Cytology (U) [Interp] Diagnosis Info Invalid Interpretation Code [facility] Comment on above: Result Comment: A:Ur ine,Urine:Voided Interpretation - MicroScopic Description - Adequacy - Gross Description Site ID:A color Light Yellow fixative Alcohol Specimen designated Urine received in alcohol preservative and labeled with the patient?s name, consists of 60ml clear light yellow fluid. Electronically signed by : on: 08/17/2023 14:12:20 Performed By: #### 1 [id number] ####[facility] [address] [place] [address] Lab Reportson 08-11-2023 Lab Reports [id number]#1.00 TIFF Normal [facility] Physician Referralon 024 Physician Referral [id number]#1.0 0TIFF Normal [facility] RAD - MISCon 08-11-2023 RAD - MISC [id number]#1.0 0TIFF Normal [facility] RAD - MISC [id number]#1.0 0TIFF Normal [facility] RAD - Ultrasound Reporton RAD - Ultrasound Report [id number]#1.0 0TIFF Normal [facility] RAD - Ultrasound Report [id number]#1.0 0TIFF Normal [facility] Screenson 08-11-2023 Screens [id number]#1.0 0TIFF Normal [facility] Ambulatory Visit Summaryon 0 08-10-2023 Ambulatory Visit Summary ISELA CRAIG :1970 Visit Date:08/10/2023 Ambulatory Visit Instructions [...] JES HUNTER PA-C, URL When: Where: [address] [place] [id number] Medications What How Much When Instructions Unchanged [...] make many (more content not included)... Normal [facility] Patient Educationon 08-10-19 24 Patient Education Pulmonary [...] require a prescription. You can also purchase ohrd-azc-zjwuztg medicines. Medicines may have nicotine in them [...] and encouragement. Call telephone quitlines, such as 2-336-WHHV-NOW, reach out to support groups, or work [...] quit smoki (more content not included)... Normal [facility] Urine Cytology ([facility])on 08-10-2023 Method of Extraction Voided Normal [facility] Comment on above: Performed By: #### 1 [id number] ####[facility] [address] [place] [address] Number of Jars 1 Invalid Interpretation Code [facility] Comment on above: Performed By: #### 1 [id number] ####[facility] [address] [place] [address] Specimen Urine Normal [facility] Comment on above: Performed By: #### 1 [id number] ####[facility] [address] [place] [address] Type of Service Technical Only Normal Fi [facility] Comment on above: Performed By: #### 1 [id number] ####[facility] [address] [place] [address] Complete Blood Count Auto Di ffon 06-09-2023 Basophils (Bld) [#/Vol] 0.0 10*3/uL Normal 0.0-0.2 [facility] Comment on above: Order Comment: Reaso n for Exam Other chest pain;Primary hypertension Result Comment: PERF ORMED BY: [facility] [address] [place] [address] PATHOLOGIST LEASE ANALYST PALOMO WESLEY M.D. Performed By: #### C KMB, LIPID, CMP, CK, HSCRP, BNP, THYROID SC, CBC #### [facility] [address] Basophils/100 WBC (Bld) 0.3 % Normal . [facility] Comment on above: Order Comment: Reaso n for Exam Other chest pain;Primary hypertension Performed By: #### C KMB, LIPID, CMP, CK, HSCRP, BNP, THYROID SC, CBC #### [facility] [address] Eosinophils (Bld) [#/Vol] 0.1 10*3/uL Normal 0.0-0.45 [facility] Comment on above: Order Comment: Reaso n for Exam Other chest pain;Primary hypertension Performed By: #### C KMB, LIPID, CMP, CK, HSCRP, BNP, THYROID SC, CBC #### [address] Eosinophils/100 WBC (Bld) 1.7 % Normal . [facility] Comment on above: Order Comment: Reaso n for Exam Other chest pain;Primary hypertension Performed By: #### C KMB, LIPID, CMP, CK, HSCRP, BNP, THYROID SC, CBC #### [address] Erythrocyte distribution width (RBC) [Ratio] 13.2 % Normal 11.9-15.3 [facility] Comment on above: Order Comment: Reaso n for Exam Other chest pain;Primary hypertension Performed By: #### C KMB, LIPID, CMP, CK, HSCRP, BNP, THYROID SC, CBC #### [address] Hematocrit (Bld) [Volume fraction] 41.9 % Normal 34.0-46.4 [facility] Comment on above: Order Comment: Reaso n for Exam Other chest pain;Primary hypertension Performed By: #### C KMB, LIPID, CMP, CK, HSCRP, BNP, THYROID SC, CBC #### [address] Hemoglobin (Bld) [Mass/Vol] 14.0 g/dL Normal 11.8-15.4 [facility] Comment on above: Order Comment: Reaso n for Exam Other chest pain;Primary hypertension Performed By: #### C KMB, LIPID, CMP, CK, HSCRP, BNP, THYROID SC, CBC #### [address] Lymphocytes (Bld) [#/Vol] 2.2 10*3/uL Normal 1.00-4.8 [facility] Comment on above: Order Comment: Reaso n for Exam Other chest pain;Primary hypertension Performed By: #### C KMB, LIPID, CMP, CK, HSCRP, BNP, THYROID SC, CBC #### [address] Lymphocytes/100 WBC (Bld) 30.2 % Normal . [facility] Comment on above: Order Comment: Reaso n for Exam Other chest pain;Primary hypertension Performed By: #### C KMB, LIPID, CMP, CK, HSCRP, BNP, THYROID SC, CBC #### [address] MCH (RBC) [Entitic mass] 32.8 pg Normal 24.7-34.3 [facility] Comment on above: Order Comment: Reaso n for Exam Other chest pain;Primary hypertension Performed By: #### C KMB, LIPID, CMP, CK, HSCRP, BNP, THYROID SC, CBC #### [address] MCV (RBC) [Entitic vol] 98.5 fL Normal 80-100 [facility] Comment on above: Order Comment: Reaso n for Exam Other chest pain;Primary hypertension Performed By: #### C KMB, LIPID, CMP, CK, HSCRP, BNP, THYROID SC, CBC #### [address] Mean Corpuscular HGB Conc 33.3 g/dL Normal 32.0-35.0 [facility] Comment on above: Order Comment: Reaso n for Exam Other chest pain;Primary hypertension Performed By: #### C KMB, LIPID, CMP, CK, HSCRP, BNP, THYROID SC, CBC #### [facility] [address] Monocytes (Bld) [#/Vol] 0.8 10*3/uL Normal 0.0-0.8 [facility] Comment on above: Order Comment: Reaso n for Exam Other chest pain;Primary hypertension Performed By: #### C KMB, LIPID, CMP, CK, HSCRP, BNP, THYROID SC, CBC #### [facility] [address] [place] [address] [place] Monocytes/100 WBC (Bld) 10.9 % Normal . [facility] Comment on above: Order Comment: Reaso n for Exam Other chest pain;Primary hypertension Performed By: #### C KMB, LIPID, CMP, CK, HSCRP, BNP, THYROID SC, CBC #### [place] [address] [place] Neutrophils (Bld) [#/Vol] 4.1 10*3/uL Normal 1.8-7.7 [facility] Comment on above: Order Comment: Reaso n for Exam Other chest pain;Primary hypertension Performed By: #### C KMB, LIPID, CMP, CK, HSCRP, BNP, THYROID SC, CBC #### [place] [address] [place] Neutrophils/100 WBC (Bld) 56.9 % Normal . [facility] Comment on above: Order Comment: Reaso n for Exam Other chest pain;Primary hypertension Performed By: #### C KMB, LIPID, CMP, CK, HSCRP, BNP, THYROID SC, CBC #### [place] [address] [place] NRBC% 0.1 /100{WBC} Normal 0-0.5 [facility] Comment on above: Order Comment: Reaso n for Exam Other chest pain;Primary hypertension Performed By: #### C KMB, LIPID, CMP, CK, HSCRP, BNP, THYROID SC, CBC #### [address] Platelet mean volume (Bld) [Entitic vol] 9.0 fL Normal 6.3-10.7 [facility] Comment on above: Order Comment: Reaso n for Exam Other chest pain;Primary hypertension Performed By: #### C KMB, LIPID, CMP, CK, HSCRP, BNP, THYROID SC, CBC #### [facility] [address] Platelets (Bld) [#/Vol] 314 10*3/uL Normal 150-450 [facility] Comment on above: Order Comment: Reaso n for Exam Other chest pain;Primary hypertension Performed By: #### C KMB, LIPID, CMP, CK, HSCRP, BNP, THYROID SC, CBC #### [facility] [address] RBC (Bld) [#/Vol] 4.26 10*6/uL Normal 3.60-5.00 [facility] Comment on above: Order Comment: Reaso n for Exam Other chest pain;Primary hypertension Performed By: #### C KMB, LIPID, CMP, CK, HSCRP, BNP, THYROID SC, CBC #### [facility] [address] [place] [address] WBC (Bld) [#/Vol] 7.2 10*3/uL Normal 3.8-11.6 [facility] Comment on above: Order Comment: Reaso n for Exam Other chest pain;Primary hypertension Performed By: #### C KMB, LIPID, CMP, CK, HSCRP, BNP, THYROID SC, CBC #### [facility] [address] [place] [address] Comprehensive Metabolic Pane hema 06-09-2023 Albumin [Mass/Vol] 4.2 g/dL Normal 3.5-5.7 [facility] Comment on above: Order Comment: Reaso n for Exam Other chest pain;Primary hypertension Performed By: #### C KMB, LIPID, CMP, CK, HSCRP, BNP, THYROID SC, CBC #### [address] Albumin/Globulin [Mass ratio] 1.4 {ratio} Normal [facility] Comment on above: Order Comment: Reaso n for Exam Other chest pain;Primary hypertension Performed By: #### C KMB, LIPID, CMP, CK, HSCRP, BNP, THYROID SC, CBC #### [facility] [address] [place] [id number] [facility] ALP [Catalytic activity/Vol] 87 U/L Normal 34-104 [facility] Comment on above: Order Comment: Reaso n for Exam Other chest pain;Primary hypertension Performed By: #### C KMB, LIPID, CMP, CK, HSCRP, BNP, THYROID SC, CBC #### [facility] [address] ALT [Catalytic activity/Vol] 10 U/L Normal 7-52 [facility] Comment on above: Order Comment: Reaso n for Exam Other chest pain;Primary hypertension Performed By: #### C KMB, LIPID, CMP, CK, HSCRP, BNP, THYROID SC, CBC #### [facility] [address] Anion gap [Moles/Vol] 12.9 mmol/L Normal 6.0-15.0 [facility] Comment on above: Order Comment: Reaso n for Exam Other chest pain;Primary hypertension Performed By: #### C KMB, LIPID, CMP, CK, HSCRP, BNP, THYROID SC, CBC #### [facility] [address] AST [Catalytic activity/Vol] 12 U/L Low 13-39 [facility] Comment on above: Order Comment: Reaso n for Exam Other chest pain;Primary hypertension Performed By: #### C KMB, LIPID, CMP, CK, HSCRP, BNP, THYROID SC, CBC #### [facility] [address] Bilirubin [Mass/Vol] 0.2 mg/dL Low 0.3-1.0 [facility] Comment on above: Order Comment: Reaso n for Exam Other chest pain;Primary hypertension Performed By: #### C KMB, LIPID, CMP, CK, HSCRP, BNP, THYROID SC, CBC #### [facility] [address] Calcium [Mass/Vol] 9.5 mg/dL Normal 8.6-10.3 [facility] Comment on above: Order Comment: Reaso n for Exam Other chest pain;Primary hypertension Performed By: #### C KMB, LIPID, CMP, CK, HSCRP, BNP, THYROID SC, CBC #### [facility] [address] Chloride [Moles/Vol] 105 mmol/L Normal 98-107 [facility] Comment on above: Order Comment: Reaso n for Exam Other chest pain;Primary hypertension Performed By: #### C KMB, LIPID, CMP, CK, HSCRP, BNP, THYROID SC, CBC #### [facility] [address] CO2 [Moles/Vol] 25.0 mmol/L Normal 21.0-31.0 [facility] Comment on above: Order Comment: Reaso n for Exam Other chest pain;Primary hypertension Performed By: #### C KMB, LIPID, CMP, CK, HSCRP, BNP, THYROID SC, CBC #### [address] Creatinine [Mass/Vol] 0.63 mg/dL Normal 0.60-1.20 [facility] Comment on above: Order Comment: Reaso n for Exam Other chest pain;Primary hypertension Performed By: #### C KMB, LIPID, CMP, CK, HSCRP, BNP, THYROID SC, CBC #### [address] GFR/1.73 sq M.predicted MDRD (S/P/Bld) [Vol rate/Area] mL/min/{1.73_m2} [facility] Comment on above: Order Comment: Reaso n for Exam Other chest pain;Primary hypertension Performed By: #### C KMB, LIPID, CMP, CK, HSCRP, BNP, THYROID SC, CBC #### [facility] [address] Globulin (S) [Mass/Vol] 2.9 g/dL [facility] Comment on above: Order Comment: Reaso n for Exam Other chest pain;Primary hypertension Performed By: #### C KMB, LIPID, CMP, CK, HSCRP, BNP, THYROID SC, CBC #### [address] Glucose [Mass/Vol] 90 mg/dL Normal 70-100 [facility] Comment on above: Order Comment: Reaso n for Exam Other chest pain;Primary hypertension Result Comment: [facility] Glucose Reference Range is dependent on time and content of last meal. Glucose of more than 200 mg/dL in a nonstressed, ambulatory subject supports the diagnosis of Diabetes Mellitus. ADA recommended reference range Performed By: #### C KMB, LIPID, CMP, CK, HSCRP, BNP, THYROID SC, CBC #### [facility] [address] Potassium [Moles/Vol] 3.9 mmol/L Normal 3.5-5.1 [facility] Comment on above: Order Comment: Reaso n for Exam Other chest pain;Primary hypertension Performed By: #### C KMB, LIPID, CMP, CK, HSCRP, BNP, THYROID SC, CBC #### [address] Protein [Mass/Vol] 7.1 g/dL Normal 6.4-8.9 [facility] Comment on above: Order Comment: Reaso n for Exam Other chest pain;Primary hypertension Performed By: #### C KMB, LIPID, CMP, CK, HSCRP, BNP, THYROID SC, CBC #### [address] Sodium [Moles/Vol] 139 mmol/L Normal 136-145 [facility] Comment on above: Order Comment: Reaso n for Exam Other chest pain;Primary hypertension Performed By: #### C KMB, LIPID, CMP, CK, HSCRP, BNP, THYROID SC, CBC #### [place] [id number] [facility] Urea nitrogen [Mass/Vol] 14 mg/dL Normal 7-25 [facility] Comment on above: Order Comment: Reaso n for Exam Other chest pain;Primary hypertension Performed By: #### C KMB, LIPID, CMP, CK, HSCRP, BNP, THYROID SC, CBC #### [place] [address] [place] Ferritinon 06-09-2023 Ferritin [Mass/Vol] 78.9 ng/mL Normal 11.0-306.8 [facility] Comment on above: Order Comment: Reaso n for Exam Other chest pain;Primary hypertension Performed By: #### C KMB, LIPID, CMP, CK, HSCRP, BNP, THYROID SC, CBC #### [facility] [address] [place] [address] HIV 1/O/2 Antigen/Antibodyon 06-09-2023 HIV Screen 4th Generation Non-Reactive Normal Non Reactive [facility] Comment on above: Order Comment: Reaso n for Exam Other chest pain;Primary hypertension Result Comment: HIV Negative HIV-1/HIV-2 antibodies and HIV-1 p24 antigen were NOT detected. There is no laboratory evidence of HIV infection. Performed at: [address] [id number] Card Painter: Kurtis Gallegos PhD, Phone: [phone] PERFORMED BY: [place] [address] PATHOLOGIST LEASE ANALYST PALOMO WESLEY M.D. Performed By: #### C KMB, LIPID, CMP, CK, HSCRP, BNP, THYROID SC, CBC #### [facility] [address] [place] [address] Iron and TIBC Profileon % Iron Saturation 22.1 % Normal 20-50 [facility] Comment on above: Order Comment: Reaso n for Exam Other chest pain;Primary hypertension Performed By: #### C KMB, LIPID, CMP, CK, HSCRP, BNP, THYROID SC, CBC #### [facility] [address] [place] [address] Iron [Mass/Vol] 93 ug/dL Normal 50-212 [facility] Comment on above: Order Comment: Reaso n for Exam Other chest pain;Primary hypertension Performed By: #### C KMB, LIPID, CMP, CK, HSCRP, BNP, THYROID SC, CBC #### [facility] [address] [place], [place] [id number] [facility] Total Iron Binding Capacity 420 ug/dL Normal 255-450 [facility] Comment on above: Order Comment: Reaso n for Exam Other chest pain;Primary hypertension Performed By: #### C KMB, LIPID, CMP, CK, HSCRP, BNP, THYROID SC, CBC #### [facility] [address] [place] [id number] [facility] Transferrin [Mass/Vol] 300 mg/dL Normal 203-362 [facility] Comment on above: Order Comment: Reaso n for Exam Other chest pain;Primary hypertension Performed By: #### C KMB, LIPID, CMP, CK, HSCRP, BNP, THYROID SC, CBC #### [facility] [address] [place] [id number] [facility] LDL Cholesterol Measuredon 0 06-09-2023 LDL Cholesterol Measured 122 mg/dL High 0-100 [facility] Comment on above: Order Comment: Reaso n for Exam Other chest pain;Primary hypertension Result Comment: LDL ATP III CLASSIFICATION LDL less than 100 mg/dL Optimal LDL 100-129 mg/dL Near or above optimal LDL 130-159 mg/dL Borderline high LDL 160-189 mg/dL High LDL greater than 189 mg/dL Very high Performed By: #### C KMB, LIPID, CMP, CK, HSCRP, BNP, THYROID SC, CBC #### [facility] [address] Lipid Panelon 06-09-2023 Cholesterol [Mass/Vol] 216 mg/dL High 140-200 [facility] Comment on above: Order Comment: Reaso n for Exam Other chest pain;Primary hypertension Result Comment: Chol less than 200 mg/dl low risk Chol 201-239 mg/dl borderline risk Chol 240 mg/dl and greater high risk Performed By: #### C KMB, LIPID, CMP, CK, HSCRP, BNP, THYROID SC, CBC #### [facility] [address] [place] [id number] [facility] Cholesterol in HDL [Mass/Vol] 69 mg/dL Normal 23-92 [facility] Comment on above: Order Comment: Reaso n for Exam Other chest pain;Primary hypertension Result Comment: HDL CHOL ATP-III CLASSIFICATION Cardiovascular Risk HDL > or equal to 60 mg/dL LOW HDL < 40 mg/dL HIGH Performed By: #### C KMB, LIPID, CMP, CK, HSCRP, BNP, THYROID SC, CBC #### [facility] [address] [place] [address] [facility] Cholesterol.total/Chol esterol in HDL [Mass ratio] 3.1 {ratio} Normal <5.0 [facility] Comment on above: Order Comment: Reaso n for Exam Other chest pain;Primary hypertension Performed By: #### C KMB, LIPID, CMP, CK, HSCRP, BNP, THYROID SC, CBC #### [facility] [address] LDL Cholesterol,Calculated Not performed Normal 0-100 [facility] Comment on above: Order Comment: Reaso n for Exam Other chest pain;Primary hypertension Performed By: #### C KMB, LIPID, CMP, CK, HSCRP, BNP, THYROID SC, CBC #### [facility] [address] [place] [id number] [facility] Triglyceride w/Reflex 443 mg/dL High 0-149 [facility] Comment on above: Order Comment: [...] CK, HSCRP, BNP, THYROID SC, CBC #### [facility] [address] [place] [id number] [facility] VLDL CHOLESTEROL 88 mg/dL Normal [facility] Comment on above: Order Comment: Reaso n for Exam Other chest pain;Primary hypertension Performed By: #### C KMB, LIPID, CMP, CK, HSCRP, BNP, THYROID SC, CBC #### [facility] [address] [place] [id number] [facility] MicroAlb Creat Ratio,Uon Albumin DL <= 20 mg/L (U) [Mass/Vol] 2.1 mg/dL High 0.0-1.8 [facility] Comment on above: Order Comment: Reaso n for Exam Other chest pain;Primary hypertension Performed By: #### C KMB, LIPID, CMP, CK, HSCRP, BNP, THYROID SC, CBC #### [address] Creatinine, Urine (Random) 66.0 mg/dL High 11.0-20.0 [facility] Comment on above: Order Comment: Reaso n for Exam Other chest pain;Primary hypertension Performed By: #### C KMB, LIPID, CMP, CK, HSCRP, BNP, THYROID SC, CBC #### [address] Microalbumin/Creatinin e Ratio 31.0 mg/g High 0.0-30.0 [facility] Comment on above: Order Comment: Reaso n for Exam Other chest pain;Primary hypertension Result Comment: 30-3 00 mg/g indicates an increased risk for diabetic nephropathy. Greater than 300 mg/g is consistent with clinical nephropathy. (Am. J. Kidney Disease 1995, 25:107) PERFORMED BY: [place] [address] PATHOLOGIST LEASE ANALYST PALOMO WESLEY M.D. Performed By: #### C KMB, LIPID, CMP, CK, HSCRP, BNP, THYROID SC, CBC #### [address] THYROID SCREENon 06-09-2023 Free T4 [Mass/Vol] 0.68 ng/dL Normal 0.61-1.12 [facility] Comment on above: Order Comment: Reaso n for Exam Other chest pain;Primary hypertension Performed By: #### C KMB, LIPID, CMP, CK, HSCRP, BNP, THYROID SC, CBC #### [address] TSH Qn 2.09 m[IU]/L Normal 0.45-5.33 [facility] Comment on above: Order Comment: Reaso n for Exam Other chest pain;Primary hypertension Performed By: #### C KMB, LIPID, CMP, CK, HSCRP, BNP, THYROID SC, CBC #### [address] Toxassure, Urineon 4 Toxassure, Urine Summary FINAL Normal . [facility] Comment on above: Order Comment: Reaso n [...] test is not intended to distinguish between dtspl-0-immtlppotvzcsdwpltjy, the predominant form of THC in most herbal or marijuana-based products, and zmakt-1-yichmepnpvqmquclmygy. Gabapentin PRESENT Cyclobenzaprine PRESENT Desmethylcyclobenzaprine PRESENT Desmethylcyclobenzaprine is an expected metabolite of cyclobenzaprine. Naproxen PRESENT ===== Test Result Flag Units Ref Range Creatinine 63 mg/dL >=20 ===== Declared Medications: Medication list was not provided. ===== For clinical consultation, please call . ===== Performed at: [employer] [address] [place] [id number] Card Painter: Ana Munoz [facility], Phone: [phone] PERFORMED BY: [place] [address] PATHOLOGIST LEASE ANALYST PALOMO WESLEY M.D. Performed By: #### C KMB, LIPID, CMP, CK, HSCRP, BNP, THYROID SC, CBC #### [facility] [address] [place] [address] Vitamin D 25 Hydroxy Totalon 06-09-2023 Vitamin D 25 Hydroxy Total 19.8 ng/mL Low 30-100 [facility] Comment on above: Order Comment: Reaso n for Exam Other chest pain;Primary hypertension Result Comment: IDRIS MIN D STATUS 25(OH)VITAMIN D RANGE (ng/mL) Deficient <20 Insufficient 20 to <30 Sufficient 30 to 100 Reference: Baron MF,Suze NC, Abdiel MAXWELL, et al. Evaluation,treatment, and prevention of vitamin D deficiency; an Endocrine Society clinical practice guideline. JCEM. 2011 [place]; 96(7):1911-30. PERFORMED BY: [facility] [address] [place] [id number] PATHOLOGIST LEASE ANALYST PALOMO WESLEY M.D. Performed By: #### C KMB, LIPID, CMP, CK, HSCRP, BNP, THYROID SC, CBC #### [facility] [address] [place] [address] [facility] Formson 04-26-2023 Forms [id number]. 00TIFF Normal [facility] NM Myocardial Spect Rest/Str ess 1 Dayon [...] Stress Dose (mCi Tc99M Cardiolite): 28.9 Normal [facility] Stress EKG Tracingson 2023 Stress EKG Tracings [id number]#1. 00TIFF Normal [facility] Consent for Treatmenton 04-05 Consent for Treatment [id number]#1.0 0TIFF Normal [facility] Heart and Vascular Office/Cl inic Noteon 04-11-2023 [...] with voice recognition artificial intelligence software, specifically [employer] and or [employer]. Substitutions may have occurred with voice recognition and artificial intelligence software. Documentation services were performed after patient or guardian consented to allow [employer] to record this visit. ANDERSON brownfield redevelopment specialist and provider reviewed before signing. ANDERSON: [...] 3 refi (more content not included)... Normal [facility] Comment on above: Result Comment: Elec tronically Signed By: Jose PATRICK, Ramone Butt\.br\Date and Time Signed: 04/11/23 19:52 EST\.br\Electronically Co-Signed By: Janie Villarreal\.br\Date and Time Co-Signed: 03/22/23 14:46 EST US renal BIon 04-01-2023 US renal BI [facility] [place] [address] Ultrasound Report Signed Patient: Isela Craig MR#: [id number] : 1970 Acct:[id number] Age/Sex: 52 / F ADM Date: 04/01/23 Loc: Room: Type: [facility] Attending Dr: Jes Vasquez RN DIABETES-C Ordering Provider: Jes Vasquez Date of Service: 04/01/23 US/US renal BI: R31.9 ([id number]) US/US bladder: R31.9 Copies to: Jes Vasquez [...] Johns Jr., D.O.04/01/2023 3:16 PM Dictation Location: [facility] Tech: Chloe Rothman; Jes Delcid Transcribed By: FLORES 04/01/23 151 Dictated By: Freddy Johns Jr DO 04/01/23 151 Signed By: 04/01/23 1516 Normal [facility] XR KUBon 04-01-2023 XR KUB [facility] [place] [address] XRay Report Signed Patient: Isela Craig MR#: [id number] : 1970 Acct:[id number] Age/Sex: 52 / F ADM Date: 04/01/23 Loc: Room: Type: [facility] Attending Dr: Jes Vasquez RN DIABETES-C Copies to: Jes Vasquez Ordering Provider: Jes [...] Shae Guzman M.D.04/01/2023 3:38 PM Dictation Location: [place] [address] Transcribed By: [facility] 04/01/23 1538 Dictated By: Shae Guzman MD 04/01/23 153 Signed By: 04/01/23 1538 [facility] Insurance Correspondenceon 05-24-2022 Insurance Correspondence [id number] 0TIFF [facility] Consent for Treatmenton 03-05 Consent for Treatment [id number] 0TIFF [facility] Physician Orderon 03-22-2023 Physician Order [id number] .00TIFF [facility] Referrals Officeon 3 Referrals Office [id number] .00TIFF [facility] COVID Quick Testingon 2022 Result Negative [facility] Other Quick Strepon 12-15-2022 S. pyogenes Org specific cx Ql (Throat) Negative [facility] Other Quick Strep [facility] Other COVID + FLU Quick Testingon 10-14-2022 SARS-CoV-2 (COVID-19) RNA AISSATOU+probe Ql (Unsp spec) Negative [facility] Other COVID + FLU Quick Testing Negative [facility] Other Quick Strepon 10-14-2022 S. pyogenes Org specific cx Ql (Throat) Negative [facility] Other Quick Strep [facility] Other Office Visit (Cardiology)on 06-24-2022 Follow-up visit Diagnoses/Problems Assessed Costochondritis (733.6) (M94.0) Palpitations (785.1) (R00.2) For the most part brief and fleeting, seem most consistent with PVC. Coronary artery disease involving [place] coronary artery of [place] heart without angina pectoris (414.01) (I25.10) Mar [...] contact the office if new symptoms arise. RN DIABETES 6 weeks Chief Complaint Add on d/t [...] department evaluation. Last week she presented to [facility] due to chest pain and dizziness. [...] and fluttering . 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 Due to blood pressure and palpitations [...] Recorded: 24Jun2022 09:32AM Heart Rate88, R Radial Dbjbtqwg251, RUE, Si (more content not included)... Normal [facility] Tobacco Screening.on 023 Adult depression screening assessment No [facility]-[place] 250 DO Work Phone: Tobacco use status [facility] a) Yes -[facility]-[place] 250 DO Work Phone: Tobacco Screening. Yes -[facility] Heart-[place] 250 DO Work Phone: Alanine aminotransferase [En zymatic activity/volume] in Serum or PlasmaOrdered By: Jes Vasquez on 06-19-2022 ALT [Catalytic activity/Vol] 11 U/L 7-52 [facility] Albumin [Mass/volume] in Ser um or Plasma by Bromocresol green (BCG) dye binding methoOrdered By: Jes Vasquez on 06-19-2022 Albumin BCG dye [Mass/Vol] 4.0 g/dL 3.5-5.7 [facility] Alkaline phosphatase [Enzyma tic activity/volume] in Serum or PlasmaOrdered By: Jes Vasquez on 06-19-2022 ALP [Catalytic activity/Vol] 70 U/L 34-104 [facility] Aspartate aminotransferase [ Enzymatic activity/volume] in Serum or PlasmaOrdered By: Jes Vasquez on 06-19-2022 AST [Catalytic activity/Vol] 11 U/L 13-39 [facility] B-Type Natriuretic Peptideon 06-19-2022 Natriuretic peptide B (Bld) [Mass/Vol] 87.0 pg/mL Normal 5-100 [facility] Comment on above: Order Comment: Reaso n for Exam Other chest pain;Primary hypertension Result Comment: PERF ORMED BY: [place] [address] PATHOLOGIST LEASE ANALYST PALOMO WESLEY M.D. Performed By: #### C KMB, LIPID, CMP, CK, HSCRP, BNP, THYROID SC, CBC #### [address] Basophils Auto (Bld) [#/Vol] Ordered By: Jes Vasquez on 06-19-2022 Basophils (Bld) [#/Vol] 0.1 10*3/uL 0.0-0.2 [facility] Basophils/100 WBC Auto (Bld) Ordered By: Jes Vasquez on 06-19-2022 Basophils/100 WBC (Bld) 1.2 % . [facility] Bilirubin.total [Mass/volume ] in Serum or PlasmaOrdered By: Jes Vasquez on 06-19-2022 Bilirubin [Mass/Vol] 0.2 mg/dL 0.3-1.0 [facility] C reactive protein [Mass/vol ume] in Serum or Plasma by High sensitivity methodOrdered By: Jes Vasquez on 06-19-2022 CRP High sensitivity method [Mass/Vol] 0.4 mg/L 0.0-0.9 [facility] Comment on above: Cardiovascular Risk Classification (AHA/CDC)hsCRP [...] on 06-19-2022 Calcium [Mass/Vol] 9.1 mg/dL 8.6-10.3 [facility] Carbon dioxide, total [Moles /volume] in Serum or PlasmaOrdered By: Jes Vasquez on 06-19-2022 CO2 [Moles/Vol] 24.4 mmol/L 21.0-31.0 [facility] Chloride [Moles/volume] in S shanna or PlasmaOrdered By: Jes Vasquez on 06-19-2022 Chloride [Moles/Vol] 108 mmol/L 98-107 [facility] Cholesterol [Mass/volume] in Serum or PlasmaOrdered By: Jes Vasquez on 06-19-2022 Cholesterol [Mass/Vol] 190 mg/dL 140-200 [facility] Comment on above: Chol less than 200 m g/dl low riskChol 201-239 mg/dl borderline riskChol 240 mg/dl and greater high risk Cholesterol in LDL Calc [Mas s/Vol]Ordered By: Jes Vasquez on 06-19-2022 Cholesterol in LDL [Mass/Vol] 74 mg/dL 0-100 [facility] Comment on above: LDL ATP III CLASSIFI CATIONLDL less than 100 mg/dL OptimalLDL 100-129 mg/dL Near or above optimalLDL 130-159 mg/dL Borderline highLDL 160-189 mg/dL HighLDL greater than 189 mg/dL Very high Cholesterol in VLDL Calc [Ma ss/Vol]Ordered By: Jes Vasquez on 06-19-2022 Cholesterol in VLDL [Mass/Vol] 48 mg/dL [facility] Complete Blood Count Auto Di ffon 06-19-2022 Basophils (Bld) [#/Vol] 0.1 10*3/uL Normal 0.0-0.2 [facility] Comment on above: Order Comment: Reaso n for Exam Other chest pain;Primary hypertension Result Comment: PERF ORMED BY: [place] [address] PATHOLOGIST LEASE ANALYST PALOMO WESLEY M.D. Performed By: #### C KMB, LIPID, CMP, CK, HSCRP, BNP, THYROID SC, CBC #### [facility] [address] [place] [address] [place] Basophils/100 WBC (Bld) 1.2 % Normal . [facility] Comment on above: Order Comment: Reaso n for Exam Other chest pain;Primary hypertension Performed By: #### C KMB, LIPID, CMP, CK, HSCRP, BNP, THYROID SC, CBC #### [facility] [address] [place] [address] [place] Eosinophils (Bld) [#/Vol] 0.2 10*3/uL Normal 0.0-0.45 [facility] Comment on above: Order Comment: Reaso n for Exam Other chest pain;Primary hypertension Performed By: #### C KMB, LIPID, CMP, CK, HSCRP, BNP, THYROID SC, CBC #### [facility] [address] [place] [address] [place] Eosinophils/100 WBC (Bld) 2.5 % Normal . [facility] Comment on above: Order Comment: Reaso n for Exam Other chest pain;Primary hypertension Performed By: #### C KMB, LIPID, CMP, CK, HSCRP, BNP, THYROID SC, CBC #### [address] Erythrocyte distribution width (RBC) [Ratio] 13.2 % Normal 11.9-15.3 [facility] Comment on above: Order Comment: Reaso n for Exam Other chest pain;Primary hypertension Performed By: #### C KMB, LIPID, CMP, CK, HSCRP, BNP, THYROID SC, CBC #### [address] Hematocrit (Bld) [Volume fraction] 39.3 % Normal 34.0-46.4 [facility] Comment on above: Order Comment: Reaso n for Exam Other chest pain;Primary hypertension Performed By: #### C KMB, LIPID, CMP, CK, HSCRP, BNP, THYROID SC, CBC #### [address] Hemoglobin (Bld) [Mass/Vol] 13.1 g/dL Normal 11.8-15.4 [facility] Comment on above: Order Comment: Reaso n for Exam Other chest pain;Primary hypertension Performed By: #### C KMB, LIPID, CMP, CK, HSCRP, BNP, THYROID SC, CBC #### [address] Lymphocytes (Bld) [#/Vol] 2.5 10*3/uL Normal 1.00-4.8 [facility] Comment on above: Order Comment: Reaso n for Exam Other chest pain;Primary hypertension Performed By: #### C KMB, LIPID, CMP, CK, HSCRP, BNP, THYROID SC, CBC #### [address] Lymphocytes/100 WBC (Bld) 30.3 % Normal . [facility] Comment on above: Order Comment: Reaso n for Exam Other chest pain;Primary hypertension Performed By: #### C KMB, LIPID, CMP, CK, HSCRP, BNP, THYROID SC, CBC #### [address] MCH (RBC) [Entitic mass] 33.2 pg Normal 24.7-34.3 [facility] Comment on above: Order Comment: Reaso n for Exam Other chest pain;Primary hypertension Performed By: #### C KMB, LIPID, CMP, CK, HSCRP, BNP, THYROID SC, CBC #### [address] MCV (RBC) [Entitic vol] 99.5 fL Normal 80-100 [facility] Comment on above: Order Comment: Reaso n for Exam Other chest pain;Primary hypertension Performed By: #### C KMB, LIPID, CMP, CK, HSCRP, BNP, THYROID SC, CBC #### [address] Mean Corpuscular HGB Conc 33.4 g/dL Normal 32.0-35.0 [facility] Comment on above: Order Comment: Reaso n for Exam Other chest pain;Primary hypertension Performed By: #### C KMB, LIPID, CMP, CK, HSCRP, BNP, THYROID SC, CBC #### [address] Monocytes (Bld) [#/Vol] 1.0 10*3/uL High 0.0-0.8 [facility] Comment on above: Order Comment: Reaso n for Exam Other chest pain;Primary hypertension Performed By: #### C KMB, LIPID, CMP, CK, HSCRP, BNP, THYROID SC, CBC #### [address] Monocytes/100 WBC (Bld) 11.6 % Normal . [facility] Comment on above: Order Comment: Reaso n for Exam Other chest pain;Primary hypertension Performed By: #### C KMB, LIPID, CMP, CK, HSCRP, BNP, THYROID SC, CBC #### [place] [address] [place] Neutrophils (Bld) [#/Vol] 4.5 10*3/uL Normal 1.8-7.7 [facility] Comment on above: Order Comment: Reaso n for Exam Other chest pain;Primary hypertension Performed By: #### C KMB, LIPID, CMP, CK, HSCRP, BNP, THYROID SC, CBC #### [facility] [address] Neutrophils/100 WBC (Bld) 54.4 % Normal . [facility] Comment on above: Order Comment: Reaso n for Exam Other chest pain;Primary hypertension Performed By: #### C KMB, LIPID, CMP, CK, HSCRP, BNP, THYROID SC, CBC #### [facility] [address] NRBC% 0.2 /100{WBC} Normal 0-0.5 [facility] Comment on above: Order Comment: Reaso n for Exam Other chest pain;Primary hypertension Performed By: #### C KMB, LIPID, CMP, CK, HSCRP, BNP, THYROID SC, CBC #### [facility] [address] Platelet mean volume (Bld) [Entitic vol] 10.2 fL Normal 6.3-10.7 [facility] Comment on above: Order Comment: Reaso n for Exam Other chest pain;Primary hypertension Performed By: #### C KMB, LIPID, CMP, CK, HSCRP, BNP, THYROID SC, CBC #### [place] [address] [place] Platelets (Bld) [#/Vol] 297 10*3/uL Normal 150-450 [facility] Comment on above: Order Comment: Reaso n for Exam Other chest pain;Primary hypertension Performed By: #### C KMB, LIPID, CMP, CK, HSCRP, BNP, THYROID SC, CBC #### [place] [address] [place] RBC (Bld) [#/Vol] 3.95 10*6/uL Normal 3.60-5.00 [facility] Comment on above: Order Comment: Reaso n for Exam Other chest pain;Primary hypertension Performed By: #### C KMB, LIPID, CMP, CK, HSCRP, BNP, THYROID SC, CBC #### [address] WBC (Bld) [#/Vol] 8.2 10*3/uL Normal 3.8-11.6 [facility] Comment on above: Order Comment: Reaso n for Exam Other chest pain;Primary hypertension Performed By: #### C KMB, LIPID, CMP, CK, HSCRP, BNP, THYROID SC, CBC #### [facility] [address] Comprehensive Metabolic Pane hema 06-19-2022 Albumin [Mass/Vol] 4.0 g/dL Normal 3.5-5.7 [facility] Comment on above: Order Comment: Reaso n for Exam Other chest pain;Primary hypertension Performed By: #### C KMB, LIPID, CMP, CK, HSCRP, BNP, THYROID SC, CBC #### [facility] [address] Albumin/Globulin [Mass ratio] 1.7 {ratio} Normal [facility] Comment on above: Order Comment: Reaso n for Exam Other chest pain;Primary hypertension Performed By: #### C KMB, LIPID, CMP, CK, HSCRP, BNP, THYROID SC, CBC #### [facility] [address] ALP [Catalytic activity/Vol] 70 U/L Normal 34-104 [facility] Comment on above: Order Comment: Reaso n for Exam Other chest pain;Primary hypertension Performed By: #### C KMB, LIPID, CMP, CK, HSCRP, BNP, THYROID SC, CBC #### [facility] [address] [place] [address] ALT [Catalytic activity/Vol] 11 U/L Normal 7-52 [facility] Comment on above: Order Comment: Reaso n for Exam Other chest pain;Primary hypertension Performed By: #### C KMB, LIPID, CMP, CK, HSCRP, BNP, THYROID SC, CBC #### [facility] [address] Anion gap [Moles/Vol] 10.9 mmol/L Normal 6.0-15.0 [facility] Comment on above: Order Comment: Reaso n for Exam Other chest pain;Primary hypertension Performed By: #### C KMB, LIPID, CMP, CK, HSCRP, BNP, THYROID SC, CBC #### [facility] [address] AST [Catalytic activity/Vol] 11 U/L Low 13-39 [facility] Comment on above: Order Comment: Reaso n for Exam Other chest pain;Primary hypertension Performed By: #### C KMB, LIPID, CMP, CK, HSCRP, BNP, THYROID SC, CBC #### [facility] [address] Bilirubin [Mass/Vol] 0.2 mg/dL Low 0.3-1.0 [facility] Comment on above: Order Comment: Reaso n for Exam Other chest pain;Primary hypertension Performed By: #### C KMB, LIPID, CMP, CK, HSCRP, BNP, THYROID SC, CBC #### [facility] [address] Calcium [Mass/Vol] 9.1 mg/dL Normal 8.6-10.3 [facility] Comment on above: Order Comment: Reaso n for Exam Other chest pain;Primary hypertension Performed By: #### C KMB, LIPID, CMP, CK, HSCRP, BNP, THYROID SC, CBC #### [facility] [address] Chloride [Moles/Vol] 108 mmol/L High 98-107 [facility] Comment on above: Order Comment: Reaso n for Exam Other chest pain;Primary hypertension Performed By: #### C KMB, LIPID, CMP, CK, HSCRP, BNP, THYROID SC, CBC #### [facility] [address] CO2 [Moles/Vol] 24.4 mmol/L Normal 21.0-31.0 [facility] Comment on above: Order Comment: Reaso n for Exam Other chest pain;Primary hypertension Performed By: #### C KMB, LIPID, CMP, CK, HSCRP, BNP, THYROID SC, CBC #### [facility] [address] Creatinine [Mass/Vol] 0.79 mg/dL Normal 0.60-1.20 [facility] Comment on above: Order Comment: Reaso n for Exam Other chest pain;Primary hypertension Performed By: #### C KMB, LIPID, CMP, CK, HSCRP, BNP, THYROID SC, CBC #### [facility] [address] GFR/1.73 sq M.predicted MDRD (S/P/Bld) [Vol rate/Area] mL/min/{1.73_m2} [facility] Comment on above: Order Comment: Reaso n for Exam Other chest pain;Primary hypertension Performed By: #### C KMB, LIPID, CMP, CK, HSCRP, BNP, THYROID SC, CBC #### [facility] [address] Globulin (S) [Mass/Vol] 2.3 g/dL [facility] Comment on above: Order Comment: Reaso n for Exam Other chest pain;Primary hypertension Performed By: #### C KMB, LIPID, CMP, CK, HSCRP, BNP, THYROID SC, CBC #### [facility] [address] Glucose [Mass/Vol] 94 mg/dL Normal 74-109 [facility] Comment on above: Order Comment: Reaso n for Exam Other chest pain;Primary hypertension Result Comment: [facility] Glucose Reference Range is dependent on time and content of last meal. Glucose of more than 200 mg/dL in a nonstressed, ambulatory subject supports the diagnosis of Diabetes Mellitus. ADA recommended reference range Performed By: #### C KMB, LIPID, CMP, CK, HSCRP, BNP, THYROID SC, CBC #### [facility] [address] Potassium [Moles/Vol] 4.3 mmol/L Normal 3.5-5.1 [facility] Comment on above: Order Comment: Reaso n for Exam Other chest pain;Primary hypertension Performed By: #### C KMB, LIPID, CMP, CK, HSCRP, BNP, THYROID SC, CBC #### [facility] [address] Protein [Mass/Vol] 6.3 g/dL Low 6.4-8.9 [facility] Comment on above: Order Comment: Reaso n for Exam Other chest pain;Primary hypertension Performed By: #### C KMB, LIPID, CMP, CK, HSCRP, BNP, THYROID SC, CBC #### [facility] [address] Sodium [Moles/Vol] 139 mmol/L Normal 136-145 [facility] Comment on above: Order Comment: Reaso n for Exam Other chest pain;Primary hypertension Performed By: #### C KMB, LIPID, CMP, CK, HSCRP, BNP, THYROID SC, CBC #### [facility] [address] [place] [address] [place] Urea nitrogen [Mass/Vol] 9 mg/dL Normal 7-25 [facility] Comment on above: Order Comment: Reaso n for Exam Other chest pain;Primary hypertension Performed By: #### C KMB, LIPID, CMP, CK, HSCRP, BNP, THYROID SC, CBC #### [facility] [address] [place] [address] [place] Creatine Kinaseon 06-19-2022 CK [Catalytic activity/Vol] 35 U/L Normal 30- [facility] Comment on above: Order Comment: Reaso n for Exam Other chest pain Performed By: #### C KMB, LIPID, CMP, CK, HSCRP, BNP, THYROID SC, CBC #### [facility] [address] [place] [address] [place] Creatine kinase [Enzymatic a ctivity/volume] in Serum or PlasmaOrdered By: Jes Vasquez on 06-19-2022 CK [Catalytic activity/Vol] 35 U/L 30 [facility] Creatine kinase.MB [Mass/vol ume] in Serum or PlasmaOrdered By: Jes Vasquez on 06-19-2022 CK.MB [Mass/Vol] 2.3 ng/mL 0.6-6.3 [facility] Creatinine Kinase MBon 06-19 CK.MB [Mass/Vol] 2.3 ng/mL Normal 0.6-6.3 [facility] Comment on above: Order Comment: Reaso n for Exam Other chest pain Performed By: #### C KMB, LIPID, CMP, CK, HSCRP, BNP, THYROID SC, CBC #### [facility] [address] [place] [id number] [facility] CKMB Relative Index 6.5 % High 0.00-2.50 [facility] Comment on above: Order Comment: Reaso n for Exam Other chest pain Result Comment: PERF ORMED BY: [facility] [address] [facility] [place] [address] PATHOLOGIST LEASE ANALYST PALOMO WESLEY M.D. Performed By: #### C KMB, LIPID, CMP, CK, HSCRP, BNP, THYROID SC, CBC #### [facility] [address] [place] [id number] [facility] Creatinine [Mass/volume] in Serum or PlasmaOrdered By: Jes Vasquez on 06-19-2022 Creatinine [Mass/Vol] 0.79 mg/dL 0.60-1.20 [facility] Eosinophils Auto (Bld) [#/Vo l]Ordered By: Jes Vasquez on 06-19-2022 Eosinophils (Bld) [#/Vol] 0.2 10*3/uL 0.0-0.45 [facility] Eosinophils/100 WBC Auto (Bl d)Ordered By: Jes Vasquez on 06-19-2022 Eosinophils/100 WBC (Bld) 2.5 % . [facility] Erythrocyte distribution wid th Auto (RBC) [Ratio]Ordered By: Jes Vasquez on 06-19-2022 Erythrocyte distribution width (RBC) [Ratio] 13.2 % 11.9-15.3 [facility] Globulin Calc (S) [Mass/Vol] Ordered By: Jes Vasquez on 06-19-2022 Globulin (S) [Mass/Vol] 2.3 g/dL [facility] Glucose [Mass/volume] in Ser um or PlasmaOrdered By: Jes Vasquez on 06-19-2022 Glucose [Mass/Vol] 94 mg/dL 74-109 [facility] Comment on above: ADA recommended refe rence rangeRandom Glucose Reference Range is dependent on time and content of last meal. Glucose of more than 200 mg/dL in a nonstressed, ambulatory subject supports the diagnosis of Diabetes Mellitus. Hematocrit Auto (Bld) [Volum e fraction]Ordered By: Jes Vasquez on 06-19-2022 Hematocrit (Bld) [Volume fraction] 39.3 % 34.0-46.4 [facility] Hemoglobin [Mass/volume] in BloodOrdered By: Jes Vasquez on 06-19-2022 Hemoglobin (Bld) [Mass/Vol] 13.1 g/dL 11.8-15.4 [facility] High Sensitive CRPon 023 High Sensitive CRP 0.4 mg/L Normal 0.0-0.9 [facility] Comment on above: Order Comment: Reaso [...] for estimation of CVD risk. PERFORMED BY: [place] [address] PATHOLOGIST LEASE ANALYST PALOMO WESLEY M.D. Performed By: #### C KMB, LIPID, CMP, CK, HSCRP, BNP, THYROID SC, CBC #### [address] Laboratory - Chemistry and C hemistry - challengeOrdered By: Jes Vasquez on 06-19-2022 GFR/1.73 sq M.predicted MDRD (S/P/Bld) [Vol rate/Area] mL/min/{1.73_m2} [facility] Leukocytes [#/volume] correc ricardo for nucleated erythrocytes in Blood by Automated counOrdered By: Jes Vasquez on 06-19-2022 WBC corrected for nucl RBC Auto (Bld) [#/Vol] 8.2 10*3/uL 3.8-11.6 [facility] Lipid Panelon 06-19-2022 Cholesterol [Mass/Vol] 190 mg/dL Normal 140-200 [facility] Comment on above: Order Comment: Reaso n for Exam Other chest pain;Primary hypertension Result Comment: Chol less than 200 mg/dl low risk Chol 201-239 mg/dl borderline risk Chol 240 mg/dl and greater high risk Performed By: #### C KMB, LIPID, CMP, CK, HSCRP, BNP, THYROID SC, CBC #### [facility] [address] [place] [address] [place] Cholesterol in HDL [Mass/Vol] 68 mg/dL Normal 35-85 [facility] Comment on above: Order Comment: Reaso n for Exam Other chest pain;Primary hypertension Result Comment: HDL CHOL ATP-III CLASSIFICATION Cardiovascular Risk HDL > or equal to 60 mg/dL LOW HDL < 40 mg/dL HIGH Performed By: #### C KMB, LIPID, CMP, CK, HSCRP, BNP, THYROID SC, CBC #### [facility] [address] Cholesterol.total/Chol esterol in HDL [Mass ratio] 2.8 {ratio} Normal <5.0 [facility] Comment on above: Order Comment: Reaso n for Exam Other chest pain;Primary hypertension Performed By: #### C KMB, LIPID, CMP, CK, HSCRP, BNP, THYROID SC, CBC #### [facility] [address] LDL Cholesterol,Calculated 74 mg/dL Normal 0-100 [facility] Comment on above: Order Comment: Reaso n for Exam Other chest pain;Primary hypertension Result Comment: LDL ATP III CLASSIFICATION LDL less than 100 mg/dL Optimal LDL 100-129 mg/dL Near or above optimal LDL 130-159 mg/dL Borderline high LDL 160-189 mg/dL High LDL greater than 189 mg/dL Very high Performed By: #### C KMB, LIPID, CMP, CK, HSCRP, BNP, THYROID SC, CBC #### [facility] [address] [place] [address] [place] Triglyceride w/Reflex 241 mg/dL High 0-149 [facility] Comment on above: Order Comment: [...] CK, HSCRP, BNP, THYROID SC, CBC #### [facility] [address] VLDL CHOLESTEROL 48 mg/dL Normal [facility] Comment on above: Order Comment: Reaso n for Exam Other chest pain;Primary hypertension Performed By: #### C KMB, LIPID, CMP, CK, HSCRP, BNP, THYROID SC, CBC #### [facility] [address] Lymphocytes Auto (Bld) [#/Vo l]Ordered By: Jes Vasquez on 06-19-2022 Lymphocytes (Bld) [#/Vol] 2.5 10*3/uL 1.00-4.8 [facility] Lymphocytes/100 WBC Auto (Bl d)Ordered By: Jes Vasquez on 06-19-2022 Lymphocytes/100 WBC (Bld) 30.3 % . [facility] MCH Auto (RBC) [Entitic mass ]Ordered By: Jes Vasquez on 06-19-2022 MCH (RBC) [Entitic mass] 33.2 pg 24.7-34.3 [facility] MCHC Auto (RBC) [Mass/Vol]Or dered By: Jes Vasquez on 06-19-2022 MCHC (RBC) [Mass/Vol] 33.4 g/dL 32.0-35.0 [facility] MCV Auto (RBC) [Entitic vol] Ordered By: Jes Vasquez on 06-19-2022 MCV (RBC) [Entitic vol] 99.5 fL 80-100 [facility] Monocytes Auto (Bld) [#/Vol] Ordered By: Jes Vasquez on 06-19-2022 Monocytes (Bld) [#/Vol] 1.0 10*3/uL 0.0-0.8 [facility] Monocytes/100 WBC Auto (Bld) Ordered By: Jes Vasquez on 06-19-2022 Monocytes/100 WBC (Bld) 11.6 % . [facility] Natriuretic peptide B [Mass/ Vol]Ordered By: Jes Vasquez on 06-19-2022 Natriuretic peptide B (Bld) [Mass/Vol] 87.0 pg/mL 5-100 [facility] Neutrophils Auto (Bld) [#/Vo l]Ordered By: Jes Vasquez on 06-19-2022 Neutrophils (Bld) [#/Vol] 4.5 10*3/uL 1.8-7.7 [facility] Neutrophils/100 WBC Auto (Bl d)Ordered By: Jes Vasquez on 06-19-2022 Neutrophils/100 WBC (Bld) 54.4 % . [facility] No Panel InformationOrdered By: Jes Vasquez on 06-19-2022 Pharmacy Creatinine Clearance (Chem N/A [facility] Nucleated erythrocytes [Pres ence] in Blood by Automated countOrdered By: Jes Vasquez on 06-19-2022 Nucleated RBC Auto Ql (Bld) 0.2 /100{WBC} 0-0.5 [facility] Platelet mean volume Auto (B ld) [Entitic vol]Ordered By: Jes Vasquez on 06-19-2022 Platelet mean volume (Bld) [Entitic vol] 10.2 fL 6.3-10.7 [facility] Platelets Auto (Bld) [#/Vol] Ordered By: Jes Vasquez on 06-19-2022 Platelets (Bld) [#/Vol] 297 10*3/uL 150-450 [facility] Potassium [Moles/volume] in Serum or PlasmaOrdered By: Jes Vasquez on 06-19-2022 Potassium [Moles/Vol] 4.3 mmol/L 3.5-5.1 [facility] Protein [Mass/volume] in Ser um or PlasmaOrdered By: Jes Vasquez on 06-19-2022 Protein [Mass/Vol] 6.3 g/dL 6.4-8.9 [facility] RBC Auto (Bld) [#/Vol]Ordere d By: Jes Vasquez on 06-19-2022 RBC (Bld) [#/Vol] 3.95 10*6/uL 3.60-5.00 [facility] Serum or plasma albumin/glob ulin mass ratioOrdered By: Jes Vasquez on 06-19-2022 Albumin/Globulin [Mass ratio] 1.7 {ratio} [facility] Serum or plasma anion gap de terminationOrdered By: Jes Vasquez on 06-19-2022 Anion gap [Moles/Vol] 10.9 mmol/L 6.0-15.0 [facility] Serum or plasma creatine kin ase MB (CKMB)/total creatine kinase (CK) ratio by calculaOrdered By: Jes Vasquez on 06-19-2022 CK.MB Calc [Catalytic fraction] 6.5 % 0.00-2.50 [facility] Serum or plasma high density lipoprotein (HDL) cholesterol measurementOrdered By: Jes Vasquez on 06-19-2022 Cholesterol in HDL [Mass/Vol] 68 mg/dL 35-85 [facility] Comment on above: HDL CHOL ATP-III CLA SSIFICATION Cardiovascular RiskHDL > or equal to 60 mg/dL LOWHDL < 40 mg/dL HIGH Serum or plasma total choles terol/high density lipoprotein (HDL) cholesterol mass ratOrdered By: Jes Vasquez on 06-19-2022 Cholesterol.total/Chol esterol in HDL [Mass ratio] 2.8 {ratio} <5.0 [facility] Sodium [Moles/volume] in Ser um or PlasmaOrdered By: Jes Vasquez on 06-19-2022 Sodium [Moles/Vol] 139 mmol/L 136-145 [facility] THYROID SCREENon 06-19-2022 Free T4 [Mass/Vol] 0.63 ng/dL Normal 0.61-1.12 [facility] Comment on above: Order Comment: Reaso n for Exam Other chest pain;Primary hypertension Performed By: #### C KMB, LIPID, CMP, CK, HSCRP, BNP, THYROID SC, CBC #### [facility] [address] [place] [address] TSH Qn 2.33 m[IU]/L Normal 0.45-5.33 [facility] Comment on above: Order Comment: Reaso n for Exam Other chest pain;Primary hypertension Result Comment: PERF ORMED BY: [facility] [address] [place] [address] PATHOLOGIST LEASE ANALYST PALOMO WESLEY M.D. Performed By: #### C KMB, LIPID, CMP, CK, HSCRP, BNP, THYROID SC, CBC #### [facility] [address] Thyrotropin [Units/volume] i n Serum or PlasmaOrdered By: Jes Vasquez on 06-19-2022 TSH Qn 2.33 m[IU]/L 0.45-5.33 [facility] Thyroxine (T4) free [Mass/vo lume] in Serum or PlasmaOrdered By: Jes Vasquez on 06-19-2022 Free T4 [Mass/Vol] 0.63 ng/dL 0.61-1.12 [facility] Triglyceride [Mass/volume] i n Serum or PlasmaOrdered By: Jes Vasquez on 06-19-2022 Triglyceride [Mass/Vol] 241 mg/dL 0-149 [facility] Comment on above: TRIG ATP III CLASSIF ICATIONTRIG less than 150 mg/dL NormalTRIG 150-199 mg/dL Borderline highTRIG 200-500 mg/dL High TRIG greater than 500 mg/dL Very highStandard traceable to the Center for Disease Conrtrol and Prevention (CDC) test method. Urea nitrogen [Mass/volume] in Serum or PlasmaOrdered By: Jes Vasquez on 06-19-2022 Urea nitrogen [Mass/Vol] 9 mg/dL 7-25 [facility] WBC Auto (Bld) [#/Vol]Ordere d By: Jes Vasquez on 06-19-2022 WBC (Bld) [#/Vol] 8.2 10*3/uL 3.8-11.6 [facility] CARDIAC BJORN ADMITon 023 CK [Catalytic activity/Vol] 54 U/L Normal 26-192 [facility] Comment on above: Performed By: #### C MADM, CMP #### [facility] [address] [place] [address] Dr. Howard Guthrie CK.MB [Mass/Vol] 1.70 ng/mL Normal <=3.[address] [facility] Comment on above: Performed By: #### C JORDAN, CMP #### [facility] [address] [place] [address] Dr. Howard Guthrie HSTROP <4.0 Normal 4.0-51.3 [facility] Comment on above: Result Comment: CUT- OFF POINTS HAVE BEEN ESTABLISHED BASED ON THE FOURTH UNIVERSAL DEFINITIONS OF MYOCARDIAL INFARCTION. THE UPPER REFERENCE LIMIT (URL) OF TROPONIN, DEFINED THE 99TH PERCENTILE OF cTnI DISTRIBUTION IN A REFERENCE POPULATION, HAS BEEN CONFIRMED THE DECISION THRESHOLD FOR [place] DIAGNOSIS. Performed By: #### C JORDAN, CMP #### [facility] [address] [place] [address] Dr. Howard Guthrie NYA 23 ng/mL Normal 9-82 [facility] Comment on above: Performed By: #### C JORDAN CMP #### [facility] [address] [place] [address] Dr. Howard Guthrie CBC AUTO DIFFon 06-17-2022 BASO # 0.1 103/ul Normal 0.0-0.1 [facility] Comment on above: Performed By: #### C BC #### [facility] [address] [place] [address] Dr. Howard Guthrie Basophils/100 WBC (Bld) 1.0 % Normal 0.2-2.0 [facility] Comment on above: Performed By: #### C BC #### [facility] [address] [place] [address] Dr. Howard Guthrie EO # 0.2 103/ul Normal 0.0-0.7 [facility] Comment on above: Performed By: #### C BC #### [facility] [address] [place] [address] Dr. Howard Guthrie Eosinophils/100 WBC (Bld) 2.9 % Normal 0.9-7.0 [facility] Comment on above: Performed By: #### C BC #### [facility] [address] [place] [address] Dr. Howard Guthrie Erythrocyte distribution width (RBC) [Ratio] 12.7 % Normal 11.0-15.0 [facility] Comment on above: Performed By: #### C BC #### [facility] [address] [place] [address] Dr. Howard Guthrie Hematocrit (Bld) [Volume fraction] 42.5 % Normal 36.0-48.0 [facility] Comment on above: Performed By: #### C BC #### [facility] [address] [place] [address] Dr. Howard Guthrie Hemoglobin (Bld) [Mass/Vol] 14.7 g/dL Normal 12.0-16.0 [facility] Comment on above: Performed By: #### C BC #### [facility] [address] [place] [address] Dr. Howard Guthrie IG # 0.02 10e3/ul Normal 0.00-0.03 [facility] Comment on above: Performed By: #### C BC #### [facility] [address] [place] [address] Dr. Howard Guthrie IG % 0.3 % Normal 0.0-0.5 [facility] Comment on above: Performed By: #### C BC #### [facility] [address] [place] [address] Dr. Howard Guthrie LYMPH # 2.1 103/ul Normal 1.2-3.8 [facility] Comment on above: Performed By: #### C BC #### [facility] [address] [place] [address] Dr. Howard Guthrie Lymphocytes/100 WBC (Bld) 28.4 % Normal 20.5-60.0 [facility] Comment on above: Performed By: #### C BC #### [facility] [address] [place] [address] Dr. Howard Guthrie MANUAL DIFF REQ NO Normal [facility] Comment on above: Performed By: #### C BC #### [facility] [address] [place] [address] Dr. Howrad Guthrie MCH (RBC) [Entitic mass] 33.1 pg Normal 26.7-34.0 [facility] Comment on above: Performed By: #### C BC #### [facility] [address] [address] [address] Howard Guthrie MCHC (RBC) [Mass/Vol] 34.6 g/dL Normal 29.9-35.2 [facility] Comment on above: Performed By: #### C BC #### [facility] [address] [address] [address] Howard Guthrie MCV (RBC) [Entitic vol] 95.7 fL Normal 81.0-99.0 [facility] Comment on above: Performed By: #### C BC #### [facility] [address] [address] [address] Howard Guthrie MONO # 1.0 103/ul Critically high 0.3-0.[address] [facility] Comment on above: Performed By: #### C BC #### [facility] [address] [address] [address] Howard Guthrie Monocytes/100 WBC (Bld) 13.1 % Critically high 1.7-12.0 [facility] Comment on above: Performed By: #### C BC #### [facility] [address] [place] [address] Dr. Howard Guthrie NEUT # 4.0 103/ul Normal 1.4-6.5 [facility] Comment on above: Performed By: #### C BC #### [facility] [address] [address] [address] Howard Guthrie Neutrophils/100 WBC (Bld) 54.3 % Normal 43.0-75.0 [facility] Comment on above: Performed By: #### C BC #### [facility] [address] [address] [address] Howard Guthrie Platelet mean volume (Bld) [Entitic vol] 10.0 fL Normal 9.5-13.5 [facility] Comment on above: Performed By: #### C BC #### [facility] [address] [address] [address] Howard Guthrie PLT 343 103/ul Normal 150-450 [facility] Comment on above: Performed By: #### C BC #### [facility] [address] [place] [address] Dr. Howard Guthrie RBC 4.44 106/ul Normal 4.20-5.40 [facility] Comment on above: Performed By: #### C BC #### [facility] [address] [place] [address] Dr. Howard Guthrie WBC 7.4 103/ul Normal 4.0-11.0 [facility] Comment on above: Performed By: #### C BC #### [facility] [address] [place] [address] Dr. Howard Guthrie D-DIMERon 06-17-2022 D-DIMER 0.43 mg/L FEU Normal <=0.59 [facility] Comment on above: Performed By: #### D DIM #### [facility] [address] [place] [address] Dr. Howard Guthrie D-DIMER COMMENTS SEE BELOW Normal [facility] Comment on above: Result Comment: [...] hospitalization. Performed By: #### D DIM #### [facility] [address] [place] [address] Dr. Howard Guthrie ER URINE PROFILEon 3 Bilirubin Ql (U) Negative Normal NEGATIVE [facility] Comment on above: Performed By: #### U MICRO, ERUR #### [facility] [address] [place] [address] Dr. Howard Guthrie Clarity (U) CLEAR Normal CLEAR [facility] Comment on above: Performed By: #### U MICRO, ERUR #### [facility] [address] [place] [address] Dr. Howard Guthrie Color (U) LT. YELLOW Normal YELLOW [facility] Comment on above: Performed By: #### U MICRO, ERUR #### [facility] [address] [address] [address] Howard MILLS A micrscopic examination will be performed if indicated. Normal [facility] Comment on above: Performed By: #### U MICRO, ERUR #### [facility] [address] [place] [address] Dr. Howard Guthrie Glucose Ql (U) Negative Normal NEGATIVE [facility] Comment on above: Performed By: #### U MICRO, ERUR #### [facility] [address] [address] [address] Howard Guthrie Hemoglobin Ql (U) SMALL Abnormal NEGATIVE [facility] Comment on above: Performed By: #### U MICRO, ERUR #### [facility] [address] [place] [address] Dr. Howard Guthrie Ketones Ql (U) Negative Normal NEGATIVE [facility] Comment on above: Performed By: #### U MICRO, ERUR #### [facility] [address] [place] [address] Dr. Howard Guthrie LEUKOCYTES Negative Normal NEGATIVE [facility] Comment on above: Performed By: #### U MICRO, ERUR #### [facility] [address] [place] [address] Dr. Howard Guthrie Nitrite Ql (U) Negative Normal NEGATIVE [facility] Comment on above: Performed By: #### U MICRO, ERUR #### [facility] [address] [place] [address] Dr. Howard Guthrie pH (U) 7.0 [pH] Normal 5-9 [facility] Comment on above: Performed By: #### U MICRO, ERUR #### [facility] [address] [place] [address] Dr. Howard Guthrie SPEC GRAVITY 1.015 Normal 1.005-<=1.0 25 [facility] Comment on above: Performed By: #### U MICRO, ERUR #### [facility] [address] [place] [address] Dr. Howard Guthrie UA PROTEIN Negative Normal NEGATIVE/ TRACE [facility] Comment on above: Performed By: #### U MICRO, ERUR #### [facility] [address] [place] [address] Dr. Howard Guthrie UR MICRO IND INDICATED Normal [facility] Comment on above: Performed By: #### U MICRO, ERUR #### [facility] [address] [place] [address] Dr. Howard Guthrie Urobilinogen Qn (U) 0.2 {Abdiaziz'U}/dL Normal 0.2 - 1. 0 [facility] Comment on above: Performed By: #### U MICRO, ERUR #### [facility] [address] [place] [address] Dr. Howard Guthrie PROF 14(COMP METB)on 023 Albumin [Mass/Vol] 3.8 g/dL Normal 3.4-5.0 [facility] Comment on above: Performed By: #### C JORDAN, CMP #### [facility] [address] [place] [address] Dr. Howard Guthrie Albumin/Globulin [Mass ratio] 1.1 {ratio} Normal [facility] Comment on above: Performed By: #### C JORDAN, CMP #### [facility] [address] [place] [address] Dr. Howard Guthrie ALP [Catalytic activity/Vol] 96 U/L Normal 46-116 [facility] Comment on above: Performed By: #### C JORDAN, CMP #### [facility] [address] [place] [address] Dr. Howard Guthrie ALT [Catalytic activity/Vol] 19 U/L Normal 14-59 [facility] Comment on above: Performed By: #### C JORDAN, CMP #### [facility] [address] [place] [address] Dr. Howard Guthrie Anion gap [Moles/Vol] 11.2 mmol/L Normal [facility] Comment on above: Performed By: #### C JORDAN, CMP #### [facility] [address] [place] [address] Dr. Howard Guthrie AST [Catalytic activity/Vol] 19 U/L Normal 15-37 [facility] Comment on above: Performed By: #### C JORDAN, CMP #### [facility] [address] [address] [address] Howard Guthrie Bilirubin [Mass/Vol] 0.5 mg/dL Normal 0.2-1.0 [facility] Comment on above: Performed By: #### C MICHAELM, CMP #### [facility] [address] [address] [address] Howard Guthrie Calcium [Mass/Vol] 8.8 mg/dL Normal 8.5-10.1 [facility] Comment on above: Performed By: #### C JORDAN, CMP #### [facility] [address] [place] [address] Dr. Howard Guthrie Chloride [Moles/Vol] 104 mmol/L Normal 98-107 [facility] Comment on above: Performed By: #### C JORDAN, CMP #### [facility] [address] [place] [address] Dr. Howard Guthrie CO2 [Moles/Vol] 24.1 mmol/L Normal 21.0-32.[address] [facility] Comment on above: Performed By: #### C JORDAN, CMP #### [facility] [address] [place] [address] Dr. Howard Guthrie Creatinine [Mass/Vol] 0.73 mg/dL Normal 0.55-1.02 [facility] Comment on above: Performed By: #### C JORDAN, CMP #### [facility] [address] [address] [address] Howard Guthrie EGFR-AF BULGARIAN >60 Normal >=[address] [facility] Comment on above: Performed By: #### C JORDAN, CMP #### [facility] [address] [place] [address] Dr. Howard Guthrie EGFR-NON AF BULGARIAN >60 Normal >=60 [facility] Comment on above: Performed By: #### C JORDAN, CMP #### [facility] [address] [address] [address] Howard Guthrie Globulin (S) [Mass/Vol] 3.6 g/dL Normal [facility] Comment on above: Performed By: #### C JORDAN, CMP #### [facility] [address] [place] [address] Dr. Howard Guthrie Glucose [Mass/Vol] 112 mg/dL Critically high 74-106 [facility] Comment on above: Performed By: #### C JORDAN, CMP #### [facility] [address] [place] [address] Dr. Howard Guthrie Potassium [Moles/Vol] 3.3 mmol/L Critically low 3.5-5.1 [facility] Comment on above: Performed By: #### C JORDAN, CMP #### [facility] [address] [place] [address] Dr. Howard Guthrie Protein [Mass/Vol] 7.4 g/dL Normal 6.4-8.2 [facility] Comment on above: Performed By: #### C JORDAN, CMP #### [facility] [address] [place] [address] Dr. Howard Guthrie Sodium [Moles/Vol] 136 mmol/L Normal 136-145 [facility] Comment on above: Performed By: #### C JORDAN, CMP #### [facility] [address] [place] [address] Dr. Howard Guthrie Urea nitrogen [Mass/Vol] 6.0 mg/dL Critically low 7.0-18.0 [facility] Comment on above: Performed By: #### C JORDAN, CMP #### [facility] [address] [place] [address] Dr. Howard Guthrie Urea nitrogen/Creatinine [Mass ratio] 8.2 mg/mg Normal [facility] Comment on above: Performed By: #### C JORDAN, CMP #### [facility] [address] [place] [address] Dr. Howard Guthrie TROPONIN, HIGH SENSITIVITYon 06-17-2022 HSTROP 4.6 pg/mL Normal 4.0-51.3 [facility] Comment on above: Result Comment: CUT- OFF POINTS HAVE BEEN ESTABLISHED BASED ON THE FOURTH UNIVERSAL DEFINITIONS OF MYOCARDIAL INFARCTION. THE UPPER REFERENCE LIMIT (URL) OF TROPONIN, DEFINED THE 99TH PERCENTILE OF cTnI DISTRIBUTION IN A REFERENCE POPULATION, HAS BEEN CONFIRMED THE DECISION THRESHOLD FOR OK DIAGNOSIS. Performed By: #### H STROPN #### [facility] [address] [place] [address] Dr. Howard Guthrie URINE MICROSCOPIC ONLYon BACTERIA TRACE Abnormal NONE SEEN [facility] Comment on above: Performed By: #### U MICRO, ERUR #### [facility] [address] [place] [address] Dr. Howard Guthrie Bacteria identified Cx Nom (U) NOT INDICATED Normal [facility] Comment on above: Performed By: #### U MICRO, ERUR #### [facility] [address] [place] [address] Dr. Howard Guthrie CAST NONE SEEN Normal NONE SEEN [facility] Comment on above: Performed By: #### U MICRO, ERUR #### [facility] [address] [place] [address] Dr. Howard Guthrie Crystals LM Nom (Urine sed) NONE SEEN Normal NONE SEEN [facility] Comment on above: Performed By: #### U MICRO, ERUR #### [facility] [address] [place] [address] Dr. Howard Guthrie Epithelial cells LM Ql (Urine sed) FEW Abnormal NONE SEEN /RARE [facility] Comment on above: Performed By: #### U MICRO, ERUR #### [facility] [address] [place] [address] Dr. Howard Guthrie MUCOUS TRACE Abnormal NONE SEEN [facility] Comment on above: Performed By: #### U MICRO, ERUR #### [facility] [address] [place] [address] Dr. Howard Guthrie RBC 2-5 Abnormal 0-2 [facility] Comment on above: Performed By: #### U MICRO, ERUR #### [facility] [address] [place] [address] Dr. Howard Guthrie WBC NONE SEEN Normal NONE SEEN [facility] Comment on above: Performed By: #### U MICRO, ERUR #### [facility] [address] [address] [address] Howard Guthrie XR CHEST 1 Von [...] NICK MARIE Date: 2022-06-17 12:26 Normal [facility] Tobacco Screening.on 022 Adult depression screening assessment No [facility] DO Work Phone: Tobacco use status [facility] a) Yes [facility] DO Work Phone: Tobacco Screening. Yes [facility] DO Work Phone: Social History Date Type Detail Facility Start: 03-22-2023 End: 08-10-2023 Tobacco smoking status Light tobacco smoker (finding) [facility] Start: 05-26-2021 [facility] Start: 1970 Sex Assigned At [facility] smoked [facility] Illicit drug use Illicit drug use [facility] DO Work Phone: Comment on above: 1 pack per daily.; Sex Assigned At [facility] Tobacco smoking status Never [facility] Vital Signs Date Time Vital Sign Value Performing Clinician Faci lity 09-13-2023 13:06-0400 Blood Pressure Location Roosevelt Sotelo [facility] 09-13-2023 13:06-0400 Diastolic blood pressure 85 mm[Hg] Roosevelt Sotelo [facility] 09-13-2023 13:06-0400 Heart rate 90 /min Roosevelt Sotelo [facility] 09-13-2023 13:06-0400 SaO2% (BldA) [Mass fraction] 99 % Roosevelt Sotelo [facility] 09-13-2023 13:06-0400 Systolic blood pressure 125 mm[Hg] Roosevelt Sotelo [facility] 08-10-2023 09:19-0400 Blood Pressure Location JESSHAMA HUNTER [facility] 08-10-2023 09:19-0400 Body temperature 98.24 [degF] JES ELSA [facility] 08-10-2023 09:19-0400 Diastolic blood pressure 78 mm[Hg] JES ELSA [facility] 08-10-2023 09:19-0400 Heart rate 80 /min JES ELSA [facility] 08-10-2023 09:19-0400 Respiratory rate 19 /min JES ELSA [facility] 08-10-2023 09:19-0400 Systolic blood pressure 136 mm[Hg] JES ELSA [facility] 03-22-2023 13:16-0500 Blood Pressure Location Ramone Garcia [facility] 03-22-2023 13:16-0500 Diastolic blood pressure 85 mm[Hg] Ramone Garcia [facility] 03-22-2023 13:16-0500 Heart rate 90 /min Ramone Garcia [facility] 03-22-2023 13:16-0500 SaO2% (BldA) [Mass fraction] 99 % Ramone Garcia [facility] 03-22-2023 13:16-0500 Systolic blood pressure 126 mm[Hg] Ramone Garcia [facility] 12-15-2022 13:20-0400 Body height 165.1 cm Loretta Javier Other [facility] Other 12-15-2022 13:20-0400 Body mass index (BMI) [Ratio] 23.13 kg/m2 Loretta Javier Other [facility] Other 12-15-2022 13:20-0400 Body temperature 98.1 [degF] Loretta Javier Other [facility] Other 12-15-2022 13:20-0400 Body weight 63.05 kg Loretta Javier Other [facility] Other 12-15-2022 13:20-0400 Diastolic blood pressure 76 mm[Hg] Loretta Javier Other [facility] Other 12-15-2022 13:20-0400 Respiratory rate 18 /min Loretta Chenler Other [facility] Other 12-15-2022 13:20-0400 SaO2% (BldA) [Mass fraction] 98 % Loretta Javier Other [facility] Other 12-15-2022 13:20-0400 Systolic blood pressure 128 mm[Hg] Loretta Javier Other [facility] Other 10-14-2022 11:10-0400 Body height 165.1 cm Tanya Glover Other [facility] Other 10-14-2022 11:10-0400 Body mass index (BMI) [Ratio] 23.39 kg/m2 Tanya Glover Other [facility] Other 10-14-2022 11:10-0400 Body temperature 97.8 [degF] Tanya Glover Other [facility] Other 10-14-2022 11:10-0400 Body weight 63.78 kg Tanya Glover Other [facility] Other 10-14-2022 11:10-0400 Diastolic blood pressure 85 mm[Hg] Tanya Glover Other [facility] Other 10-14-2022 11:10-0400 Respiratory rate 18 /min Tanya Glover Other [facility] Other 10-14-2022 11:10-0400 SaO2% (BldA) [Mass fraction] 99 % Tanya Glover Other [facility] Other 10-14-2022 11:10-0400 Systolic blood pressure 143 mm[Hg] Tanya Pangmond Other [facility] Other 06-24-2022 09:32-0400 Body height 165.1 cm No PCP None [facility] DO Work Phone: 06-24-2022 09:32-0400 Body mass index (BMI) [Ratio] 24.63 kg/m2 No PCP None [facility] DO Work Phone: 06-24-2022 09:32-0400 Body surface area Derived from formula 1.74 m2 No PCP None [facility] DO Work Phone: 06-24-2022 09:32-0400 Body weight 67.13 kg No PCP None [facility] DO Work Phone: 06-24-2022 09:32-0400 Diastolic blood pressure 82 mm[Hg] No PCP None [facility] DO Work Phone: 06-24-2022 09:32-0400 Heart rate 88 /min No PCP None [facility] DO Work Phone: 06-24-2022 09:32-0400 Systolic blood pressure 124 mm[Hg] No PCP None [facility] DO Work Phone: 06-02-2021 15:09-0500 Diastolic blood pressure 98 mm[Hg] No PCP None [facility] DO Work Phone: 06-02-2021 15:09-0500 Systolic blood pressure 142 mm[Hg] No PCP None [facility] DO Work Phone: 06-02-2021 15:03-0500 Body height 165.1 cm No PCP None [facility] DO Work Phone: 06-02-2021 15:03-0500 Body mass index (BMI) [Ratio] 28.29 kg/m2 No PCP None [facility] DO Work Phone: 06-02-2021 15:03-0500 Body surface area Derived from formula 1.85 m2 No PCP None [facility] DO Work Phone: 06-02-2021 15:03-0500 Body weight 77.11 kg [facility] 06-02-2021 15:03-0500 Diastolic blood pressure 90 mm[Hg] No PCP None [facility] 250 DO Work Phone: 06-02-2021 15:03-0500 Heart rate 92 /min [facility]: Functional Status Date Assessment Result Facility 09-13-2023 Functional Status No [facility] 08-10-2023 Functional Status N/A [facility] 03-22-2023 Functional Status No [facility] Clinical Notes 10-14-2022 to 08-10-2023 Note Date & Type Note Facility 08-10-2023 Evaluation + Plan note Diagnostic Tests PendingUrine Cytology ([facility]) 08/10/23 [facility] 08-10-2023 Hospital Discharg e instructions Patient Education [...] require a prescription. You can also purchase fcvr-txi-gxzdsgx medicines. Medicines may have nicotine in them [...] and encouragement. Call telephone quitlines, such as 7-350-YZCM-NOW, reach out to support groups, or work [...] provider. Document Revised: 03/13/2022 Document Reviewed: 03/13/2022 [employer] Patient Education 2022 [place] [employer]. 08/10/2023 10:11:31 Cystoscopy Cystoscopy Cystoscopy is a [...] including vitamins, herbs, eye drops, creams, and lons-iwd-ctmsjel medicines. Any problems you or family members [...] provider tells you to take them. Taking dccj-xox-yvtviqa medicines, vitamins, herbs, and supplements. Tests You [...] Follow these instructions at home: Medicines Take ngao-nxs-ajhahat and prescription medicines only as told by [...] provider. Document Revised: 12/03/2021 Document Reviewed: 11/01/2020 [employer] Patient Education 2022 [place] [employer]. Follow Up Care 04/30/2023 12:48:57 With:ELSA MOSES, JES Akhtar, URL Address: [address] [place] [address] [phone] When: Unknown [facility] 08-10-2023 Note Chief Complaint Jes Gomes, MAKENZIE referral HPI Staff Evaluation requested by Jes [...] Skin: No rashes or suspicious lesions Assessment/Plan Isela is a 53 yo female new pt, [...] has had dark urine. [place]adder[place] [facility] renal mass, stone or hydro. Unremarkable bladder. KUB 04[place]01[place]23 [facility] [place] obvious urinary tract calculi. AMOL 08/02/23 [facility] - No renal stones or hydro. Unremarkable bladder. KUB 08/02/23 [facility] - No urinary tract calculi. Educated [...] upon conclusion of the workup. -CTU at [facility] now -Urine sample to be sent [...] pain (R10.9: Unspecified abdominal pain) AMOL/KUB 08/02/23 [facility] - neg. States pain is in her [...] Cyst of kidney, acquired) Bladder/[place]al [place] 04[place]01[place]23 [facility] [place] Small L renal cyst. 06/09/23 - BUN 14. Cr 0.63. GFR >60. -Simple cysts do not require follow-up Ordered: CT Urogram 5. Smoker (F17.200: Nicotine dependence, unspec (more content not included)... [facility] Comment on above: Result Comment: Elec tronically Signed By: JES HUNTER PA-C\.br\Date and Time Signed: 08/10/23 10:56 EDT\.br\Electronically Co-Signed By: Mirela Lozoya.br\Date and Time Co-Signed: 08/10/23 10:16 EDT 04-17-2023 Note Echocardiology Procedure Exam Date/Time Accession # Ordering Echo Transthoracic 04/16/2023 14:37 EST [id number] Jose PATRICK, Ramone Clinton. CPT code 61921 [id number] Reason for Exam (Echo Transthoracic Complete) I25.10;CAD Coronary artery disease Report Version: 1 Study ID: [id number] [facility] [address] [place] [address] Adult Echocardiogram Report Name: ISELA CRAIG Study Date: 04/16/2023, 1: 10 PM Patient [place] [facility] [place] 1970 (MM/DD/YYYY) Gender: Female Age: 52 [...] 2.5 cm Diastolic funtion Med Peak E' Jake: 8.1 cm/sec Lat Peak E' Jake: 10.0 cm/sec MV dec time: 0.24 sec MV E max jake: 74.1 cm/sec MV A max jake: 68.9 cm/sec Ao max P.6 mmHg Ao [...] cm LVPWd: 1.00 cm MV A max jake: 68.9 cm/sec MV dec time: 0.24 sec MV E max jake: 74.1 cm/sec MV E/A: 1.08 RAP systole: 3.0 mmHg RVDd: 2.8 cm RVIDd/LVIDd: 0.83 SV(MOD-sp4): 49.7 ml TAPSE: 2.6 cm E/E' Lat: 7.4 E/E' Med: 9.2 EDV(MOD-sp2): 73.0 ml EF (MOD-bp): 64.7 % EF(MOD-sp2): 62.9 % ESV(MOD-sp2): 27.1 ml LA Vol Index: 17.4 ml/m? Lat Peak E' Jake: 10.0 cm/sec LVLd ap2: 8.0 cm LVLs ap2: 6.9 cm Med Peak E' Jake: 8.1 cm/sec Electronically signed by: Ramone Garcia MD 04/17/2023, 9: 54 PM FINAL REPORT Dictated: 04/16/2023 1:10 pm Ramnoe Garcia MD Signed (Electronic Signature): 04/17/2023 9:54 pm Signed by: Ramone Garcia MD Transcribed by: [facility] Technologist: GARRY Bravo [facility] 12-15-2022 Evaluation note Encounter Date Diagnosis [...] understanding and is agreeable to treatment plan [facility] Other 07-12-2023 Evaluation note* Encounter Date Diagnosis [...] - Z20.822) Oct, Bronchitis (ICD-10 - J40) [facility] Other Evaluation + Plan note Future Appointments Appointment Date:05/13/2023 03:45:00 PM Scheduled Provider:Ramone Garcia MD Location:[facility] Appointment Type:Cardiology Follow Up (FT) Future Scheduled Tests Radiology* NM Myocardial Spect Rest/Stress 1 Day 03/22/23 * Echo Transthoracic [facility] Future App[facility]ments Appointment Date:05/13/2023 03:45:00 PM Scheduled Provider:Ramone Garcia MD Location:[facility]iology [facility] Appointment Type:[facility] Future Appointments Appointment Date:09/27/2023 09:30:00 AM Scheduled Provider: Location:[facility] Appointment Type:Urology CALL PAT FT Appointment Date:10/05/2023 09:00:00 AM Scheduled Provider: Location:[facility] Appointment Type:Urology FT Appointment Date:12/13/2023 01:00:00 PM Scheduled Provider:Roosevelt Sotelo PA-C Location:[facility]Cardiology Clinic Appointment Type:Cardiology Follow Up (FT) Future Scheduled Tests Radiology* US Carotid Duplex Bilateral 09/14/23 [facility] assessment information available [facility] Work Phone: History general Narrative - Reported* Type Description Date Surgical History hysterectomy Surgical History lumbar [facility] Other History of Present illness Narrative* The [...] medication regimen. She denies medication side effects. [facility] 250 DO Work Phone: Hospital course Narrative No data available for this section [facility] No data available for this section [facility] No data available for this section [facility] Assessments No Assessments Information Available Family [...] dyspnea. * Patient was recently hospitalized at [facility]. The patient was seen in Cardiology consult with subsequent cardiovascular management by [facility]. Hospitalization records have been reviewed. * Reason for Cardiology Consultation: chest pain (presented with spontaneous PTX) * Consulting Flue Tile Press Operator: Dr. Lopez * Cardiovascular testing: cardiac [...] evaluation. * Last week she presented to [facility] due to chest pain and dizziness. [...] and fluttering . 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 Due to blood pressure and palpitations [...] Primary Care Provider Active Jes Vasquez , RN DIABETESBethC Attending Provide r Active Goals (unrecognized section [...] CREATED AUTHOR AUTHOR'S ORGANIZ ATION 08/16/2022 [facility] DATE CREATED AUTHOR AUTHOR'S ORGANIZ ATION 06/18/2023 [facility] DATE CREATED AUTHOR AUTHOR'S ORGANIZ ATION 09/19/[address] [facility] DATE CREATED AUTHOR AUTHOR'S ORGANIZ ATION 09/25/2023 [facility] REASON FOR VISIT (unrecogniz ed section [...] BE BASED ON THE PRIMARY CLINICAL RECORDS. [facility] [employer] provides no warranty or guarantee of the accuracy or completeness of information in this document.
[2023-09-26 18:56] LABS: Bilirubin Urine NEGATIVE (NEGATIVE); Blood Urine TRACE-I (NEGATIVE); Clarity Urine CLEAR (CLEAR); Color Urine LT. YELLOW (YELLOW); Glucose Urine UA NEGATIVE (NEGATIVE); Ketones Urine NEGATIVE (NEGATIVE); Leukocyte Esterase Urine TRACE (NEGATIVE); Nitrite Urine NEGATIVE (NEGATIVE); Protein Urine NEGATIVE (NEG/TRACE); Specific Gravity Urine <=1.005 (1.005-1.025); Urobilinogen Urine 0.2 EU/dL (0.2-1.0)
[2023-09-26 18:57] LABS: Urine Microscopic Indicated YES
[2023-09-26 19:05] LABS: Bacteria Urine NONE SEEN #/HPF (NONE SEEN); Cast Seen? NONE SEEN #/LPF (NONE SEEN); Crystals Seen? None Seen #/HPF (None Seen); Mucus Urine NONE SEEN (NONE SEEN); RBC Urine NONE SEEN #/HPF (0-2); Squamous Epithelial Cell Urine FEW #/LPF (NONE/RARE); Urine Culture Indicated NO; WBC Urine 0-2 #/HPF (NONE SEEN)
[2023-09-26 19:26] VITALS: BP 143/97; PULSE 89; O2SAT 98
--- NOTE | 2023-09-26 19:36 | CT_ITS ---
[address] [address] Patient Name: MEGHANA KEY MRN: [id number] date: 1970 Sex: F Assigned Patient Location: ER Current Patient Location: ER Accession/Order Number: [id number] Exam Date: 09/26/2023 20:48 Report Date: 09/26/2023 21:25 At the request of: SELINA HALE Procedure: CT abdomen pelvis wo con EXAMINATION: CT abdomen pelvis wo con, 09/26/2023 8:48 PM EDT HISTORY: right flank pain COMPARISON: 08/28/2023 TECHNIQUE: CT scan of the abdomen and pelvis was performed without IV contrast. CT dose reduction technique was used, including Automated Exposure Control. FINDINGS: LOWER CHEST: Stable area of density in the right middle lobe which represent scarring. LIVER: There is a prominent Jose's lobe. GALLBLADDER AND BILIARY SYSTEM: The gallbladder is contracted. There is no intra or extrahepatic biliary ductal dilatation. SPLEEN: Unremarkable. PANCREAS: Unremarkable. ADRENAL GLANDS: There is a 9 mm left adrenal nodule which likely represents an adenoma. There is a 1.1 x 0.8 cm right adrenal nodule which measures less than 10 Hounsfield units and likely represents an adenoma. KIDNEYS AND URETERS: 2 punctate nonobstructing calculi in the midpole the right kidney. No left-sided nephrolithiasis. No ureteral calculus or hydronephrosis. No perinephric stranding. BLADDER: Unremarkable. GASTROINTESTINAL TRACT: No evidence of bowel obstruction or colitis. There is colonic diverticulosis without evidence of diverticulitis. Moderate amount of stool in the colon. A normal appendix is visualized. VASCULATURE: The abdominal aorta is normal in caliber. RETROPERITONEUM: No lymphadenopathy. PERITONEUM/MESENTERY: No abdominal ascites. No free air. PELVIS: No pelvic ascites or lymphadenopathy. BODY WALL: Unremarkable. BONES: Posterior spinal fusion hardware noted at L4-S1. CT/CT abdomen pelvis wo con IMPRESSION: 1. Punctate nonobstructing calculi in the right kidney. No hydronephrosis. 2. Constipation. Colonic diverticulosis without evidence of diverticulitis. 3. Bilateral adrenal adenomas. Electronically authenticated by: LETICIA VUONG Date: 09/26/2023 21:25
--- NOTE | 2023-09-26 19:37 | ED_ITS ---
HPI - Female Genitourinary General Chief complaint: Urogenital-Female Stated complaint: Abdominal Pain Time Seen by Provider: 09/26/23 19:33 Source: patient Mode of arrival: walk-in History of Present Illness HPI Narrative: past substance use disorder. States past kidney stones. Presents complaining of right CVA pain that radiates to her groin. Started 2 days ago. Also has dysuria. No hematuria or fever. past hysterectomy Related Data Home Medications ?Medication ?Instructions ?Recorded ?Confirmed clonazepam 0.5 mg tablet (Klonopin) 0.5 mg PO BID 03/05/23 05/03/23 albuterol sulfate 90 mcg/actuation 2 inh inhalation Q4H PRN 04/28/23 05/03/23 aerosol inhaler bronchospasm atorvastatin 20 mg tablet 20 mg PO DAILY 04/28/23 05/03/23 isosorbide mononitrate 30 mg 30 mg PO DAILY 04/28/23 05/03/23 tablet,extended release 24 hr sertraline 100 mg tablet 100 mg PO DAILY 04/28/23 05/03/23 quetiapine 50 mg tablet (Seroquel) 50 mg PO DAILY 05/03/23 05/03/23 Previous Rx's ?Medication ?Instructions ?Recorded alendronate 70 mg tablet (Fosamax) 70 mg PO QWEEK 12 weeks #12 tabs 05/03/23 aspirin 81 mg tablet,delayed 81 mg PO BID 30 days #60 tabs 05/03/23 release (Adult Low Dose Aspirin) cefadroxil 500 mg capsule 500 mg PO BID 7 days #14 caps 05/03/23 cholecalciferol (vitamin D3) 125 125 mcg PO DAILY 90 days #90 caps 05/03/23 mcg (5,000 unit) capsule docusate sodium 100 mg capsule 100 mg PO BID PRN constipation 7 05/03/23 (Colace) days #14 caps ondansetron 4 mg disintegrating 4 mg PO Q8H PRN nausea and 05/03/23 tablet vomiting 5 days #15 tabs oxycodone-acetaminophen 5 mg-325 1 tab PO Q6H PRN pain 7 days #28 05/03/23 mg tablet (Percocet) tabs tizanidine 2 mg tablet 2 mg PO TID PRN muscle spasticity 05/03/23 7 days #21 tabs Allergies Allergy/AdvReac Type Severity Reaction Status Date / Time codeine Allergy Hives Verified 09/10/23 20:44 Review of Systems ROS Status of ROS 10 or more systems reviewed and unremark able except as noted in history and below [facility] Medical History (Updated 09/26/23 @ 21:54 by Jose Mills MD) Arthritis ?M19.90 - Unspecified osteoarthritis, unspecified site (ICD-10) Back pain ?M54.9 - Dorsalgia, unspecified (ICD-10) Anemia ?D64.9 - Anemia, unspecified (ICD-10) Depression ?F32.A - Depression, unspecified (ICD-10) Anxiety ?F41.9 - Anxiety disorder, unspecified (ICD-10) COVID-19 ?U07.1 - COVID-19 (ICD-10) Electronic cigarette use ?Z78.9 - Other specified health status (ICD-10) Chronic obstructive pulmonary disease ?J44.9 - Chronic obstructive pulmonary disease, unspecified (ICD-10) GERD (gastroesophageal reflux disease) ?K21.9 - Gastro-esophageal reflux disease without esophagitis (ICD-10) Dyspnea on exertion ?R06.09 - Other forms of dyspnea (ICD-10) Irregular heart beat ?I49.9 - Cardiac arrhythmia, unspecified (ICD-10) Coronary artery disease ?I25.10 - Atherosclerotic heart disease of [place] coronary artery without angina pectoris (ICD-10) Hypertension ?I10 - Essential (primary) hypertension (ICD-10) Hallux rigidus ?M20.20 - Hallux rigidus, unspecified foot (ICD-10) Hallux valgus ?M20.10 - Hallux valgus (acquired), unspecified foot (ICD-10) Palpitation ?R00.2 - Palpitations (ICD-10) Costochondritis ?M94.0 - Chondrocostal junction syndrome [Tietze] (ICD-10) Coronary vasospasm ?I20.1 - Angina pectoris with documented spasm (ICD-10) Spontaneous pneumothorax (03/2021) ?J93.83 - Other pneumothorax (ICD-10) Admission for pleural drainage tube placement ?Z46.82 - Encounter for fitting and adjustment of non-vascular catheter (ICD- 10) Surgical History (Updated 03/05/23 @ 13:50 by Harleen Holden NP) History of cardiac catheterization ?Z98.890 - Other specified postprocedural states (ICD-10) History of foot surgery ?Z98.890 - Other specified postprocedural states (ICD-10) History of spinal surgery ?Z98.890 - Other specified postprocedural states (ICD-10) History of hysterectomy ?Z90.710 - Acquired absence of both cervix and uterus (ICD-10) Family History (Updated 03/05/23 @ 13:50 by Harleen Holden NP) Other Family history of DVT Family history of hypertension Family history of liver cancer Family history of myocardial infarction Family history of stroke Social History (Updated 03/05/23 @ 13:43 by Harleen Holden NP) Within the past year, how often did you have a drink containing alcohol: 2-3 times a week Smoking status: Current every day smoker What tobacco products do you use: cigarettes Packs per day: 1 Years smoked: 18 Smoking pack-years: 18.00 Do you use any of these nicotine containing products: e-cigarettes and vaping products Non-prescribed substance use: cannabis (any form) Highest level of school completed/degree received: high school graduate Exam Constitutional Vital Signs, click to edit/add: Last Vital Signs Temp 98.1 F 09/26/23 18:21 Pulse 89 09/26/23 19:26 Resp 18 09/26/23 19:26 BP 143/97 H 09/26/23 22:09 Pulse Ox 98 09/26/23 19:26 O2 Del Method Room Air 09/26/23 19:26 Common normals: no apparent distress, average body habitus, oriented x3, no limitations, healthy appearing, alert and well nourished [facility] Common normals: normocephalic and head/scalp atraumatic Eye Common normals: EOMs intact bilaterally and conjunctivae normal Respiratory Common normals: normal respiratory effort, no retractions, no use of accessory muscles and clear to auscultation bilaterally Cardio Common normals: regular rate, regular rhythm, S1 normal heart sound and S2 normal heart sound GI Common normals: Normal to inspection, nondistended, normoactive bowel sounds present, soft to palpation and non-tender Back & Pelvis General back: CVA tenderness CVA tenderness: right Extremity Common normals: normal to inspection and full ROM Neuro Common normals: oriented x3, CN's II-XII intact bilaterally, moves all extremities and no focal motor deficits Psych Appearance: grossly normal Course Vital Signs Vital signs: Vital Signs Temperature 98.1 F 09/26/23 18:21 Pulse Rate 89 09/26/23 18:21 Respiratory Rate 16 09/26/23 18:21 Blood Pressure 146/82 H 09/26/23 18:21 Pulse Oximetry 98 09/26/23 18:21 Oxygen Delivery Method Room Air 09/26/23 18:21 Temperature 98.1 F 09/26/23 18:21 Pulse Rate 89 09/26/23 19:26 Respiratory Rate 18 09/26/23 19:26 Blood Pressure 143/97 H 09/26/23 22:09 Pulse Oximetry 98 09/26/23 19:26 Oxygen Delivery Method Room Air 09/26/23 19:26 MDM - Female Genitourinary MDM Narrative Medical decision making narrative: patient presents complaining of dysuria and right flank pain. Believes she may have a kidney stone. States past history of stones. exam with mil rightCVA tenderness. CT with findings of constipation and adrenal adenoma 9mm. UA clear. Not clear why she has dysuria. She denies any irritation or redness in the genital area. will provide macrobid for her complaint of dysuria and recommend she follow up with urology also advised to use a laxative and followup with her PCP regarding her adenomas Lab Data Labs: Lab Results 09/26/23 Range/Units 18:25 Urine Color Lt. yellow (YELLOW) Urine Clarity Clear (CLEAR) Urine pH 7.0 (5.0-9.0) Ur Specific [place] <=1.005 A (1.005-1.025) Urine Protein Negative (NEG/TRACE) mg/dL Urine Glucose (UA) Negative (NEGATIVE) mg/dL Urine Ketones Negative (NEGATIVE) mg/dL Urine Occult Blood Trace-i (NEGATIVE) Urine Nitrite Negative (NEGATIVE) Urine Bilirubin Negative (NEGATIVE) Urine Urobilinogen 0.2 (0.2-1.0) EU/dL Ur Leukocyte Esterase Trace A (NEGATIVE) Urine RBC None seen (0-2) #/HPF Urine WBC 0-2 A (NONE SEEN) #/HPF Ur Squamous Epith Cells Few A (NONE/RARE) #/LPF Urine Crystals None seen (None Seen) #/HPF Urine Bacteria None seen (NONE SEEN) #/HPF Urine Casts None seen (NONE SEEN) #/LPF Urine Mucus None seen (NONE SEEN) Ur Culture Indicated? No Imaging Data Abdominal x-ray: Radiologist's impression: ITS Impressions Abdomen/Pelvis CT 09/26/23 19:36 IMPRESSION: 1. Punctate nonobstructing calculi in the right kidney. No hydronephrosis. 2. Constipation. Colonic diverticulosis without evidence of diverticulitis. 3. Bilateral adrenal adenomas. Electronically authenticated by: LETICIA VUONG Date: 09/26/2023 21:25 Discharge Plan Discharge Stand Alone Forms: Portal Instructions Chief Complaint: Urogenital-Female Clinical Impression: Acute flank pain, Dysuria Patient Disposition: Home, Self-Care Prescriptions / Home Meds: No Action clonazepam [Klonopin] 0.5 mg tablet 0.5 mg PO BID albuterol sulfate 90 mcg/actuation HFA aerosol inhaler 2 inh INHALATION Q4H PRN (Reason: bronchospasm) atorvastatin 20 mg tablet 20 mg PO DAILY isosorbide mononitrate 30 mg tablet extended release 24 hr 30 mg PO DAILY sertraline 100 mg tablet 100 mg PO DAILY quetiapine [Seroquel] 50 mg tablet 50 mg PO DAILY Patient Comments: will increase dose to 100 mg after 5 days of the 50 mg. alendronate [Fosamax] 70 mg tablet 70 mg PO QWEEK 84 Days Qty: 12 0RF aspirin [Adult Low Dose Aspirin] 81 mg tablet,delayed release (DR/EC) 81 mg PO BID 30 Days Qty: 60 0RF cefadroxil 500 mg capsule 500 mg PO BID 7 Days Qty: 14 0RF oxycodone-acetaminophen [Percocet] 5-325 mg tablet 1 tab PO Q6H PRN (Reason: pain) 7 Days Qty: 28 0RF Rx Instructions: Previously tolerated docusate sodium [Colace] 100 mg capsule 100 mg PO BID PRN (Reason: constipation) 7 Days Qty: 14 0RF ondansetron 4 mg tablet,disintegrating 4 mg PO Q8H PRN (Reason: nausea and vomiting) 5 Days Qty: 15 0RF cholecalciferol (vitamin D3) 125 mcg (5,000 unit) capsule 125 mcg PO DAILY 90 Days Qty: 90 0RF tizanidine 2 mg tablet 2 mg PO TID PRN (Reason: muscle spasticity) 7 Days Qty: 21 0RF Print Language: Irish Instructions: Dysuria (ED), Flank Pain (ED) Additional Instructions: Use ibuprofen for pain. Follow up with your doctor for recheck. Macrobid twice daily for 7 days for UTI symptoms. Referrals: Physician,Non-Staff, MD [Primary Care Provider] - 1 week Discharge Date/Time: 09/26/23 22:13
[2023-09-26 22:09] VITALS: BP 143/97
== END 2023-09-26 22:13 | disposition home or self-care (01) ==
PROVIDERS: Emergency Medicine Emergency Medical Services; Emergency Provider Internal Medicine
DX: R10.9 Unspecified abdominal pain (principal); R30.0 Dysuria; Z87.442 Personal history of urinary calculi; Z90.710 Acquired absence of both cervix and uterus; F17.290 Nicotine dependence, other tobacco product, uncomplicated
CPT/HCPCS: 74176; 81001; 99284

== ENCOUNTER 2023-10-12 16:31 | Emergency (ER) | payer OTHER, SELFPAY ==
[2023-10-12] VITALS (15 sets, daily range): BP systolic 107–132; BP diastolic 70–101; PULSE 70–93; TEMP 36.5; O2SAT 94–99; BMI 21.6
--- NOTE | 2023-10-12 16:35 | ECG_ITS ---
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
--- NOTE | 2023-10-12 16:35 | XR_ITS ---
The [address] [address] Patient Name: MEGHANA KEY MRN: [id number] date: 1970 Sex: F Assigned Patient Location: ER Current Patient Location: ED.[facility] Accession/Order Number: [id number] Exam Date: 10/12/2023 17:30 Report Date: 10/12/2023 18:47 At the request of: DEVORA DUMAS Procedure: XR chest 1V EXAM: XR chest 1V at 1725 hours HISTORY: cp COMPARISON: 03/05/2023 TECHNIQUE: AP upright portable chest x-ray FINDINGS: Pleural and parenchymal scarring is again seen at the right apex. The right lower and left lung are clear. Slight blunting of the right costophrenic angle is probably due to pleural thickening. There is no evidence of a pneumothorax. The heart is not enlarged and the vasculature is not distended. The osseous structures are grossly intact. XR/XR chest 1V IMPRESSION: Chronic changes with evidence of prior surgery is noted at the right apex. There is no evidence of an acute infiltrate or cardiac decompensation, the overall appearance of the chest is otherwise unchanged. Electronically authenticated by: TAMI CHIRINOS Date: 10/12/2023 18:47
[2023-10-12 16:48] LABS: Basophils Absolute Auto 0.1 10^3/uL (0.0-0.1); Basophils Percent Auto 1.2 % (0.2-2.0); Eosinophils Absolute Auto 0.3 10^3/uL (0.0-0.7); Eosinophils Percent Auto 3.2 % (0.9-7.0); Hemoglobin 13.5 g/dL (12.0-16.0); Immature Granulocytes Abs Auto 0.04 10^3/uL (0.00-0.03); Immature Granulocytes Pct Auto 0.4 % (0.0-0.5); Lymphocytes Absolute Auto 2.7 10^3/uL (1.2-3.8); Lymphocytes Percent Auto 28.5 % (20.5-60.0); Mean Corpuscular HGB Conc 33.8 g/dL (29.9-35.2); Mean Corpuscular Hemoglobin 32.7 pg (26.7-34.0); Mean Corpuscular Volume 96.9 fL (81.0-99.0); Mean Platelet Volume 9.6 fL (9.5-13.5); Monocytes Absolute Auto 1.2 10^3/uL (0.3-0.8); Monocytes Percent Auto 12.8 % (1.7-12.0); Neutrophils Absolute Auto 5.1 10^3/uL (1.4-6.5); Neutrophils Percent Auto 53.9 % (43.0-75.0); Platelet Count 347 10^3/uL (150-450); Red Blood Count 4.13 10^6/uL (4.20-5.40); Red Cell Distribution Width 12.7 % (11.0-15.0); White Blood Count 9.4 10^3/uL (4.0-11.0)
--- NOTE | 2023-10-12 17:01 | ED.GENADUL1 ---
HPI HPI - General Adult General Chief complaint: Chest Pain Stated complaint: Chest Pain Time Seen by Provider: 10/12/23 16:34 Source: patient Mode of arrival: ambulance History of Present Illness HPI narrative: Patient presents ED complaining of left-sided chest pain. She said it started around 330 today. She had left-sided chest pain that radiated into the left armpit and stated that her left fingers were tingling. She did feel a little nauseous with it. She said she was lightheaded as well. She said she started a new medication at the facility where she is being treated, [facility], and the medication can cause low blood pressure. She said her blood pressure is normally high but it was down to 105/70 something. She said she was feeling a little lightheaded with that so the nurse told her to lay down and then she also started having some chest pain with that. They called EMS and brought her in for further evaluation. EKG and route was normal. EKG on arrival here is negative for acute CT. Patient states her pain is still there although slightly better. She denies any abdominal pain or leg pain. She does have a history of something abnormal with her heart in the past and she was prescribed nitro in the past but she is not quite sure exactly what for. No history of stents or open heart surgery. She does have a history of a collapsed lung on the right that happened last year. She said this does not feel like that pain. Related Data Home Medications ?Medication ?Instructions ?Recorded ?Confirmed clonazepam 0.5 mg tablet (Klonopin) 0.5 mg PO BID 03/05/23 05/03/23 albuterol sulfate 90 mcg/actuation 2 inh inhalation Q4H PRN 04/28/23 05/03/23 aerosol inhaler bronchospasm atorvastatin 20 mg tablet 20 mg PO DAILY 04/28/23 05/03/23 isosorbide mononitrate 30 mg 30 mg PO DAILY 04/28/23 05/03/23 tablet,extended release 24 hr sertraline 100 mg tablet 100 mg PO DAILY 04/28/23 05/03/23 quetiapine 50 mg tablet (Seroquel) 50 mg PO DAILY 05/03/23 05/03/23 Previous Rx's ?Medication ?Instructions ?Recorded alendronate 70 mg tablet (Fosamax) 70 mg PO QWEEK 12 weeks #12 tabs 05/03/23 aspirin 81 mg tablet,delayed 81 mg PO BID 30 days #60 tabs 05/03/23 release (Adult Low Dose Aspirin) cefadroxil 500 mg capsule 500 mg PO BID 7 days #14 caps 05/03/23 cholecalciferol (vitamin D3) 125 125 mcg PO DAILY 90 days #90 caps 05/03/23 mcg (5,000 unit) capsule docusate sodium 100 mg capsule 100 mg PO BID PRN constipation 7 05/03/23 (Colace) days #14 caps ondansetron 4 mg disintegrating 4 mg PO Q8H PRN nausea and 05/03/23 tablet vomiting 5 days #15 tabs oxycodone-acetaminophen 5 mg-325 1 tab PO Q6H PRN pain 7 days #28 05/03/23 mg tablet (Percocet) tabs tizanidine 2 mg tablet 2 mg PO TID PRN muscle spasticity 05/03/23 7 days #21 tabs Allergies Allergy/AdvReac Type Severity Reaction Status Date / Time codeine Allergy Hives Verified 09/10/23 20:44 Opioid HPI Opioid Management Most Recent Opioid Data: Last Pain Scale 8 09/26/23 19:27 Last MAR Pain Assessment 10/12/23 17:19 Ur Phencyclidine Scrn Negative (NEGATIVE) 09/10/23 21:35 Review of Systems ROS Status of ROS 10 or more systems reviewed and unremarkable except as noted in history and below [facility] Medical History (Updated 10/12/23 @ 18:34 by Nahomi Alejandre DO) Arthritis ?M19.90 - Unspecified osteoarthritis, unspecified site (ICD-10) Back pain ?M54.9 - Dorsalgia, unspecified (ICD-10) Anemia ?D64.9 - Anemia, unspecified (ICD-10) Depression ?F32.A - Depression, unspecified (ICD-10) Anxiety ?F41.9 - Anxiety disorder, unspecified (ICD-10) COVID-19 ?U07.1 - COVID-19 (ICD-10) Electronic cigarette use ?Z78.9 - Other specified health status (ICD-10) Chronic obstructive pulmonary disease ?J44.9 - Chronic obstructive pulmonary disease, unspecified (ICD-10) GERD (gastroesophageal reflux disease) ?K21.9 - Gastro-esophageal reflux disease without esophagitis (ICD-10) Dyspnea on exertion ?R06.09 - Other forms of dyspnea (ICD-10) Irregular heart beat ?I49.9 - Cardiac arrhythmia, unspecified (ICD-10) Coronary artery disease ?I25.10 - Atherosclerotic heart disease of [place] coronary artery without angina pectoris (ICD-10) Hypertension ?I10 - Essential (primary) hypertension (ICD-10) Hallux rigidus ?M20.20 - Hallux rigidus, unspecified foot (ICD-10) Hallux valgus ?M20.10 - Hallux valgus (acquired), unspecified foot (ICD-10) Palpitation ?R00.2 - Palpitations (ICD-10) Costochondritis ?M94.0 - Chondrocostal junction syndrome [[place]] (ICD-10) Coronary vasospasm ?I20.1 - Angina pectoris with documented spasm (ICD-10) Spontaneous pneumothorax (03/2021) ?J93.83 - Other pneumothorax (ICD-10) Admission for pleural drainage tube placement ?Z46.82 - Encounter for fitting and adjustment of non-vascular catheter (ICD-10) Surgical History (Updated 03/05/23 @ 13:50 by Harleen Holden NP) History of cardiac catheterization ?Z98.890 - Other specified postprocedural states (ICD-10) History of foot surgery ?Z98.890 - Other specified postprocedural states (ICD-10) History of spinal surgery ?Z98.890 - Other specified postprocedural states (ICD-10) History of hysterectomy ?Z90.710 - Acquired absence of both cervix and uterus (ICD-10) Family History (Updated 03/05/23 @ 13:50 by Harleen Holden NP) Other Family history of DVT Family history of hypertension Family history of liver cancer Family history of myocardial infarction Family history of stroke Social History (Updated 03/05/23 @ 13:43 by Harleen Holden NP) Within the past year, how often did you have a drink containing alcohol: 2-3 times a week Smoking status: Current every day smoker What tobacco products do you use: cigarettes Packs per day: 1 Years smoked: 18 Smoking pack-years: 18.00 Do you use any of these nicotine containing products: e-cigarettes and vaping products Non-prescribed substance use: cannabis (any form) Highest level of school completed/degree received: high school graduate Exam Narrative Exam Narrative: Time Seen: [] Vital Signs: [Per nurse's notes.] General: [Alert] Skin: [Warm, dry, no rash.] Head: [Normocephalic, atraumatic.] Neck: [Supple, trachea midline.] Eye: [Pupils are equal, round and reactive to light, extraocular movements are intact, normal conjunctiva.] Ears, nose, mouth and throat: oral mucosa moist. Cardiovascular: [Regular rate and rhythm, no murmur.] Respiratory: [Lungs are clear to auscultation, respirations are non-labored, breath sounds are equal.] Chest wall: [No tenderness, no deformity.] Gastrointestinal: [Soft, nontender, non distended, normal bowel sounds.] MSK: 5 out of 5 muscle strength x 4 extremities no calf pain or edema Lymphatics: [No lymphadenopathy.] Psychiatric: [Cooperative, appropriate mood & affect.] Neurological: [Alert and oriented to person, place, time, and situation, no focal neurological deficit observed.] Constitutional Vital Signs, click to edit/add: Last Vital Signs Temp 97.7 F 10/12/23 16:33 Pulse 72 10/12/23 18:00 Resp 14 10/12/23 18:00 BP 132/101 H 10/12/23 19:10 Pulse Ox 98 10/12/23 19:10 O2 Del Method Room Air 10/12/23 16:33 Course Vital Signs Vital signs: Vital Signs Temperature 97.7 F 10/12/23 16:33 Pulse Rate 70 10/12/23 16:33 Respiratory Rate 24 H 10/12/23 16:33 Blood Pressure 125/73 10/12/23 16:33 Pulse Oximetry 99 10/12/23 16:33 Oxygen Delivery Method Room Air 10/12/23 16:33 Temperature 97.7 F 10/12/23 16:33 Pulse Rate 72 10/12/23 18:00 Respiratory Rate 14 10/12/23 18:00 Blood Pressure 132/101 H 10/12/23 19:10 Pulse Oximetry 98 10/12/23 19:10 Oxygen Delivery Method Room Air 10/12/23 16:33 Medical Decision Making [facility] Narrative Medical decision making narrative: Patient's labs including troponin x 2 were negative. Patient will be discharged home but please return if worsening symptoms or concerns occur. Patient comfortable care plan for home Differential Diagnosis Differential Diagnosis: Acute CT, angina, anxiety, medication reaction, Pneumothorax Medical Records Medical records reviewed: Yes I reviewed the patient's medical records Lab Data Lab results reviewed: Yes I reviewed the patient's lab results Labs: Lab Results 10/12/23 10/12/23 Range/Units 16:42 18:01 WBC 9.4 (4.0-11.0) 10^3/uL RBC 4.13 L (4.20-5.40) 10^6/uL Hgb 13.5 (12.0-16.0) g/dL Hct 40.0 (36.0-48.0) % MCV 96.9 (81.0-99.0) fL MCH 32.7 (26.7-34.0) pg MCHC 33.8 (29.9-35.2) g/dL RDW 12.7 (11.0-15.0) % Plt Count 347 (150-450) 10^3/uL MPV 9.6 (9.5-13.5) fL Neut % (Auto) 53.9 (43.0-75.0) % Lymph % (Auto) 28.5 (20.5-60.0) % [place] % (Auto) 12.8 H (1.7-12.0) % Eos % (Auto) 3.2 (0.9-7.0) % Baso % (Auto) 1.2 (0.2-2.0) % Neut # (Auto) 5.1 (1.4-6.5) 10^3/uL Lymph # (Auto) 2.7 (1.2-3.8) 10^3/uL [place] # (Auto) 1.2 H (0.3-0.8) 10^3/uL Eos # (Auto) 0.3 (0.0-0.7) 10^3/uL Baso # (Auto) 0.1 (0.0-0.1) 10^3/uL Abs Immat Gran (auto) 0.04 H (0.00-0.03) 10^3/uL Imm/Tot Granulo (auto) 0.4 (0.0-0.5) % Sodium 139 (136-145) mmol/L Potassium 3.8 (3.5-5.1) mmol/L Chloride 105 (98-107) mmol/L Carbon Dioxide 25.4 (21.0-32.0) mmol/L Anion Gap 12.4 BUN 18.0 (7.0-18.0) mg/dL Creatinine 1.01 (0.55-1.02) mg/dL Est GFR ( Amer) >60 (>=60) Est GFR (Non-Af Amer) 58 L (>=60) BUN/Creatinine Ratio 17.8 Glucose 107 H (74-106) mg/dL Calcium 9.2 (8.5-10.1) mg/dL Total Bilirubin 0.2 (0.2-1.0) mg/dL AST 19 (15-37) U/L ALT 45 (14-59) U/L Alkaline Phosphatase 100 (46-116) U/L Troponin I High Sens <4.0 L 4.4 (4.0-51.3) pg/mL Total Protein 7.5 (6.4-8.2) g/dL Albumin 3.5 (3.4-5.0) g/dL Globulin 4.0 g/dL Albumin/Globulin Ratio 0.9 Imaging Data Chest x-ray: Radiologist's impression: ITS Impressions Chest X-Ray 10/12/23 16:35 IMPRESSION: Chronic changes with evidence of prior surgery is noted at the right apex. There is no evidence of an acute infiltrate or cardiac decompensation, the overall appearance of the chest is otherwise unchanged. Electronically authenticated by: TAMI CHIRINOS Date: 10/12/2023 18:47 ECG Data Attestation: I personally reviewed and interpreted this ECG as follows: Interpretation: EKG INTERPRETATION Time: []1634 Rate: []74 Rhythm: _ []Normal sinus rhythm ST segments: _ []No acute ST elevation or depression T waves: _ [] Ectopy: _ [] P wave/VA interval: _ [] QRS interval: _ [] QT interval: _ [] Comparison: _ [] Comparison EKG date: [] Performed by: [self] Discharge Plan Discharge Stand Alone Forms: Portal Instructions Chief Complaint: Chest Pain Clinical Impression: Chest pain Patient Disposition: Home, Self-Care Time of Disposition Decision: 18:34 Condition: Good Mode of Transportation: Private Vehicle Prescriptions / Home Meds: No Action clonazepam [Klonopin] 0.5 mg tablet 0.5 mg PO BID albuterol sulfate 90 mcg/actuation HFA aerosol inhaler 2 inh INHALATION Q4H PRN (Reason: bronchospasm) atorvastatin 20 mg tablet 20 mg PO DAILY isosorbide mononitrate 30 mg tablet extended release 24 hr 30 mg PO DAILY sertraline 100 mg tablet 100 mg PO DAILY quetiapine [Seroquel] 50 mg tablet 50 mg PO DAILY Patient Comments: will increase dose to 100 mg after 5 days of the 50 mg. alendronate [Fosamax] 70 mg tablet 70 mg PO QWEEK 84 Days Qty: 12 0RF aspirin [Adult Low Dose Aspirin] 81 mg tablet,delayed release (DR/EC) 81 mg PO BID 30 Days Qty: 60 0RF cefadroxil 500 mg capsule 500 mg PO BID 7 Days Qty: 14 0RF oxycodone-acetaminophen [Percocet] 5-325 mg tablet 1 tab PO Q6H PRN (Reason: pain) 7 Days Qty: 28 0RF Rx Instructions: Previously tolerated docusate sodium [Colace] 100 mg capsule 100 mg PO BID PRN (Reason: constipation) 7 Days Qty: 14 0RF ondansetron 4 mg tablet,disintegrating 4 mg PO Q8H PRN (Reason: nausea and vomiting) 5 Days Qty: 15 0RF cholecalciferol (vitamin D3) 125 mcg (5,000 unit) capsule 125 mcg PO DAILY 90 Days Qty: 90 0RF tizanidine 2 mg tablet 2 mg PO TID PRN (Reason: muscle spasticity) 7 Days Qty: 21 0RF Print Language: [place] Instructions: Chest Pain (ED) Referrals: Physician,Non-Staff, MD [Primary Care Provider] - 1 week Discharge Date/Time: 10/12/23 19:46
[2023-10-12 17:11] LABS: Alanine Aminotransferase 45 U/L (14-59); Albumin Globulin Ratio 0.9; Albumin Level 3.5 g/dL (3.4-5.0); Alkaline Phosphatase 100 U/L (46-116); Anion Gap 12.4; Aspartate Amino Transferase 19 U/L (15-37); BUN Creatinine Ratio 17.8; Bilirubin Total 0.2 mg/dL (0.2-1.0); Calcium 9.2 mg/dL (8.5-10.1); Carbon Dioxide 25.4 mmol/L (21.0-32.0); Chloride 105 mmol/L (98-107); Estimated GFR (African America >60 (>=60); Estimated GFR (Non-African Ame 58 (>=60); Glucose 107 mg/dL (74-106); Potassium 3.8 mmol/L (3.5-5.1); Sodium 139 mmol/L (136-145); Total Protein 7.5 g/dL (6.4-8.2); Troponin I High Sensitivity <4.0 pg/mL (4.0-51.3)
[2023-10-12] MEDS: KETOROLAC TROMETHAMINE 30 MG/ML VIAL 15 MG IVP (17:19)
[2023-10-12] MEDS: 0.9 % SODIUM CHLORIDE 1,000 ML 1000 ML IV (17:19)
[2023-10-12 18:27] LABS: Troponin I High Sensitivity 4.4 pg/mL (4.0-51.3)
== END 2023-10-12 19:46 | disposition home or self-care (01) ==
PROVIDERS: Emergency Provider Emergency Medicine
DX: R07.9 Chest pain, unspecified (principal); F17.210 Nicotine dependence, cigarettes, uncomplicated
CPT/HCPCS: 36415; 71045; 80053; 84484; 85025; 93005; 96374; 99285; J1885

== ENCOUNTER 2023-11-02 14:40 | Outpatient (OUT) | payer OTHER, SELFPAY ==
--- NOTE | 2023-11-02 | XR_ITS ---
The [address] [address] Patient Name: MEGHANA KEY MRN: [id number] date: 1970 Sex: F Assigned Patient Location: Current Patient Location: Accession/Order Number: [id number] Exam Date: 11/02/2023 14:40 Report Date: 11/04/2023 05:09 At the request of: TAMI HODGE Procedure: XR foot LT min 3V PROCEDURE: XR foot LT min 3V HISTORY: LEFT FOOT PAIN COMPARISON: XR foot left 08/24/2023 FINDINGS: BONES:Mechanical fusion of the first metatarsophalangeal joint via dorsal plate and screws; no appreciable hardware fracture or loosening. No bone fracture dislocation. SOFT TISSUES:No visible soft tissue swelling. EFFUSION:None visible. OTHER: Negative. XR/XR foot LT min 3V IMPRESSION: 1. Stable surgical changes without evidence of hardware failure change in alignment. 2. No acute bone abnormality or significant degenerative joint disease. Electronically authenticated by: MASOOD COOK Date: 11/04/2023 05:09
--- OUTSIDE RECORDS SUMMARY | 2023-11-02 14:51 | XMS_ITS | CCD ---
Author Organization [facility] Care Team Providers Care Water Meter Installer Name Role Phone None, No PCP Unavailable Unavailable Unavailable Unavailable NO FAMILY, PHYSICIAN Primary Care Provider Sandra Cruz NP-C Jes Kaur Attending Pr ovider RIVER GIMENEZ Admitting Unavailable RIVER GIMENEZ Attending Unavailable ROCÍO, NONE LISTED Primary Care Unavaila ble RIVER GIMENEZ Consulting Unavailable NICK MARIE Consulting Unavailable Rome, Ms. Nadia Lainez Attending Curtis Peter, Ms. Nadia Lainez Referring Curtis Cruz, Ms. Jes Kaur Primary Care Unavailable Rome, Ms. Nadia Lainez Attending Curtis Cruz, Ms. Jes Kaur Primary Care Unavailable Rome, Ms. Nadia Lainez Attending Tanya Colby Unavailable Loretta Javier Unavailable JES CRUZ Primary Care Physician NO FAMILY, PHYSICIAN Primary Care Unavailable Jes Cruz Admitting U navailJes Baez Attending U navailable Jes Cruz Admitting U navailable Jes Cruz Primary Care U navailable Jes Cruz Attending U navashlie NO FAMILY, PHYSICIAN Primary Care Unavailable Jes Cruz Admitting U navailable Jes Cruz Attending U navCUATE Mckeon Attending Unavailable JES CRUZ Primary Care Unavailab CUATE Olson Attending Unavailable CUATE KELLY Referring Unavailable JES CRUZ Primary Care Unavailab Alexandro Cardoso Attending Alexandro Vee Attending JES Mcmanus Referring Unavailab JOSUÉ Henderson Attending Unavailab JOSUÉ Henderson Attending Unavailab JES Dunham Referring Unavailab Ramone Willson Admitting Unavaila Ramone Hart Attending Unavaila ble NONE, XXXX Referring Unavailable Roosevelt Sotelo Attending Unavailable Alexandro PARTIDA Admitting Unavailable Alexandro PARTIDA Attending Unavailable Alexandro PARTIDA Referring Unavailable Ramone Garcia Admitting Unavaila Ramone Hart Consulting Unavaila Ramone Hart Attending Unavaila Ramone Hart Referring Unavaila Ramone Hart Consulting Unavaila Ramone Hart Consulting Unavaila JOSUÉ Pop Admitting UnavailJOSUÉ Granados Attending UnavailJacquelyn Tucker Primary Care Physician [phone] JES ROLLE Attending LEIGHANN Mcmanus Primary Care Provider LEIGHANN Cruz Attending Pr ovider Unavailable Unavailable Gladys Allergies Allergy Classification Reported Allergen(s) Allergy Type Date of Onset Reaction(s) Facility Opioid Agonists (1 source) Codeine; Translations: [codeine] Drug Allergy Eruption of skin present [facility] (19 sources) Codeine; Translations: [codeine] Drug Allergy 09-03-2012 hives, Eruption of skin present [facility] Medications Current Medications Medication Drug Class(es) Dates Sig (Normalized) Sig (Original) aspirin 81 mg delayed release oral tablet (16 sources) Platelet Aggregation Inhibitor, Nonsteroidal Anti-inflammatory Drug Start: 04-04-2021 take 1 tablet by mouth once daily aspirin 81 mg Oral EC Tab 81 mg = 1 tab(s), Oral, Daily, Refills(s) 0 Start Date: 03/22/23 Status: Ordered take 1 tablet by mouth once brandi y Aspirin Low Dose 81 MG CHEW ONE TABLET BY MOUTH ONCE DAILY Oral for 30 Days Not-Taking atorvastatin 40 mg oral tablet (16 sources) HMG-CoA Reductase Inhibitor Start: 03-22-2023 take 1 tablet by mouth once daily atorvastatin 40 mg Tab 40 mg = 1 tab(s), Oral, Daily, # 30 tab(s), Refills(s) 3, Pharmacy: [facility] 1155, 164, cm, 03/22/23 13:24:00 EST, Height/Length Dosing, 64.7, kg, 03/22/23 13:24:00 EST, Weight Dosing Start Date: 03/22/23 Status: Ordered Start: 04-04-2021 take 20 mg by mouth once daily in the evening Atorvastatin Active 20 MG PO Every evening April 04, 2021 1:00am busPIRone hydrochloride 15 mg oral tablet (13 sources) Start: 01-17-2020 take 1 mg by [...] 09, 2019 12:00am October 19, 2019 12:57pm BuSsaadia gracia clonazePAM 0.5 mg oral tablet (7 sources) Benzodiazepine Start: 03-22-2023 take 0.25 mg by mouth twice daily Klonopin 0.5 mg Tab 0.25 mg = 0.5 tab(s), Oral, BID, Refills(s) 0 Start Date: 03/22/23 Status: Ordered dicyclomine hydrochloride 20 mg oral tablet (2 [...] sulfate 324 mg delayed release oral tablet (2 sources) Start: 04-04-2021 take 324 mg by mouth twice daily Ferrous Sulfate Active 324 MG PO Twice daily 60 April 04, 2021 1:00am gabapentin 300 mg oral capsule (17 sources) Anti-epileptic Agent Start: 05-26-2021 take 1 [...] 2019 12:00am October 19, 2019 12:57pm Motrin (11 sources) Nonsteroidal Anti-inflammatory Drug Start: 01-17-2020 take [...] mononitrate 30 mg extended release oral tablet (16 sources) Nitrate Vasodilator Start: 03-22-2023 take 1 tablet by mouth once daily in the morning isosorbide mononitrate 30 mg ER Tab 30 mg = 1 tab(s), Oral, qAM, # 30 tab(s), Refills(s) 3, Pharmacy: [facility] 1155, 164, cm, 03/22/23 13:24:00 EST, Height/Length Dosing, 64.7, kg, 03/22/23 13:24:00 EST, Weight Dosing Start Date: 03/22/23 Status: Ordered Start: 04-04-2021 take 60 mg by mouth once daily Isosorbide Mononitrate Active 60 MG PO Daily April 04, 2021 1:00am lamoTRIgine 25 mg chewable tablet (11 sources) Mood Stabilizer, Anti-epileptic Agent Start: 01-17-2020 [...] with dinner for 6 days Dec, Active mirtazapine 7.5 mg oral tablet (1 source) Start: 10-14-2023 take 1 tablet by mouth once daily mirtazapine 7.5 mg oral tablet 7.5 mg = 1 tab(s), Oral, Daily, Refills(s) 0 Start Date: 10/14/23 Status: Ordered naltrexone 380 mg injection (1 source) Opioid Antagonist Start: 10-14-2023 Vivitrol 380 mg intramuscular injection, extended release Refills(s) 0 Start Date: 10/14/23 Status: Ordered nicotine 2 mg chewing gum (5 sources) Cholinergic Nicotinic Agonist Start: 10-14-2023 nicotine 2 mg Oral transmucosal Gum Refills(s) 0 Start Date: 10/14/23 Status: Ordered Start: 06-02-2021 apply 1 dose transde rmal route once daily EQ Nicotine 21 MG/24HR Transdermal Patch 24 Hour APPLY 1 PATCH DAILY DIRECTED. Quantity: 30 Refills: 1 Ordered: 02-Jun-2021 Migel Peter APRNBethMAKENZIENadia Start : 02-Jun-2021 Active Start: 01-09-2019 End: 10-19-2019 Nicotine Discontinued 1 EACH TRANSDERML Daily 10 09January 09, 2019 12:00am October 19, 2019 12:57pm nitroglycerin 0.4 mg sublingual tablet (7 sources) Nitrate Vasodilator Start: 04-04-2021 Nitroglyce rin (Nitrostat) 0.4 mg tablet, sublingual Active 0.4 MG SUBLINGUAL Q5M April 04, 2021 1:00am do not exceed 3 doses per episode olanzapine (11 sources) Atypical Antipsychotic Start: 01-17-2020 olanzap ine Refills(s) 0 Start Date: 01/17/20 Status: Ordered Start: 01-09-2019 End: 03-24-2021 take 10 mg by mouth once daily at bedtime Olanzapine Discontinued 10 MG PO Daily at bedtime January 09, 2019 12:00am March 24, 2021 4:09pm OLANZapine Not-T aking oxybutynin chloride 5 mg oral tablet (6 sources) Cholinergic Muscarinic Antagonist Start: 02-08-2020 take [...] pantoprazole 40 mg extended release oral tablet (7 sources) Proton Pump Inhibitor Start: 01-17-2020 take 1 mg by mouth once daily pantoprazole 40 mg Oral EC Tab mg tab(s), Oral, Daily, Refills(s) 0 Start Date: 01/17/20 Status: Ordered Prazosin (9 sources) alpha-Adrenergic Malinda Start: 01-17-2020 prazosin Oral, TID, Refills(s) 0 Start Date: 01/17/20 Status: Ordered Start: 10-19-2019 End: 03-24-2021 Prazosin Discontinued 1 MG P O As Directed October 19, 2019 12:00am March 24, 2021 4:09pm propranolol hydrochloride 10 mg oral tablet (1 source) beta-Adrenergic Malinda Start: 10-14-2023 propranolol 10 mg Tab Refills(s) 0 Start Date: 10/14/23 Status: Ordered sertraline 100 mg oral tablet (7 sources) Serotonin Reuptake Inhibitor Start: 03-22-2023 take 1 tablet by mouth once daily Zoloft 100 mg Tab 100 mg = 1 tab(s), Oral, Daily, # 30 tab(s), Refills(s) 0 Start Date: 03/22/23 Status: Ordered Vitamin D3 50,000 intl units oral capsule (5 sources) Start: 08-10-2023 Vitamin D3 50,000 intl units oral capsule 1,250 mcg = 1 cap(s) Start Date: 08/10/23 Status: Ordered Completed/Discontinued Medications Medication Drug Class(es) Dates Sig (Normalized) Sig (Original) [id number] 200 actuat albuterol 0.09 mg/actuat metered dose [...] Oct, Not-Taking ciprofloxacin 500 mg oral tablet (2 sources) Quinolone Antimicrobial Start: 08-20-2023 take 1 tablet by mouth once daily Cipro 500 mg Tab 500 mg = 1 tab(s), Oral, Daily, Take 1 tablet the day before the procedure and 1 tablet after the procedure, # 2 tab(s), Refills(s) 0, Pharmacy: [facility] 1155, 164, cm, 08/10/23 9:37:00 EDT, Height/Length Dosing, 66, kg, 08/10/23 9:37:00 EDT, Weight Dosing Start Date: 08/20/23 Status: Ordered cyclobenzaprine hydrochloride 5 mg oral tablet (11 sources) Muscle Relaxant Start: 10-19-2019 End: 03-24-2021 take 5 mg by mouth three times daily Cyclobenzaprine Discontinued 5 MG PO Three times daily October 19, 2019 12:00am March 24, 2021 4:09pm Flexeril Not-Aguila ing 24 hr dilTIAZem hydrochloride 180 mg extended release oral capsule (5 sources) Calcium Channel Malinda Start: 06-24-2022 take 1 capsule by mouth once daily dilTIAZem HCl ER 180 MG Oral Capsule Extended Release 24 Hour TAKE 1 CAPSULE ONCE DAILY. Quantity: 90 Refills: 3 Ordered: 24-Jun-2022 Nadia Mancuso Start : 24-Jun-2022 Active Start: 06-02-2021 take 1 capsule by [facility] once daily dilTIAZem HCl ER Coated [...] Days Not-Taking loratadine 10 mg oral tablet (2 sources) Start: 01-09-2019 End: 10-19-2019 take 10 mg [...] Date Documented Da te Episodic/Chronic Abdominal pain (10 sources) Abdominal pain; Translations: [Unspecified abdominal pain] Onset: 08-10-2023 01-17-2020 Episodic Adjustment disorders (2 sources) Complicated grieving; Translations: [Adjustment disorder with depressed mood] 01-06-2019 Chronic Adjustment disorders (1 source) Complicated grieving; Translations: [Complicated bereavement] Episodic Anxiety disorders (8 sources) Anxiety; Translations: [Anxiety disorder, unspecified] Onset: 06-09-2023 03-18-2023 Chronic Calculus of urinary tract (7 sources) History of calculus of kidney; Translations: [Personal history of urinary calculi] Onset: 08-10-2023 Episodic Cardiac dysrhythmias (6 sources) Palpitations; Translations: [Palpitations] Onset: 09-13-2023 Episodic Chronic obstructive pulmonary disease and bronchiectasis (2 sources) Chronic obstructive lung disease; Translations: [Chronic obstructive pulmonary disease, unspecified] 03-25-2021 Chronic Chronic obstructive pulmonary disease and bronchiectasis (1 source) Bronchitis, not specified as acute or chronic Episodic Complications of surgical procedures or medical care (2 sources) Subcutaneous emphysema resulting from a procedure; Translations: [Emphysema (subcutaneous) resulting from a procedure, initial encounter] 03-25-2021 Episodic Coronary atherosclerosis and other heart disease (16 sources) Coronary atherosclerosis; Translations: [Coronary atherosclerosis of [place] coronary artery] 04-03-2021 Chronic Disorders of lipid metabolism (5 sources) Mixed hyperlipidemia; Translations: [Mixed hyperlipidemia] Chronic Essential hypertension (13 sources) Benign hypertension; Translations: [Benign essential hypertension] Onset: 06-19-2022 03-18-2023 Chronic Genitourinary symptoms and ill-defined conditions (17 sources) Incontinence; Translations: [Urge incontinence of urine] Onset: 08-10-2023 01-17-2020 Chronic Genitourinary symptoms and ill-defined conditions (20 sources) Blood in urine; Translations: [Microscopic hematuria] Onset: 04-01-2023 01-17-2020 Episodic Headache; including migraine (1 source) Headache; including migraine; Translations: [Headache, unspecified] Onset: 09-18-2023 Mood disorders (13 sources) Major depressive disorder; Translations: [Major depressive disorder, single episode, unspecified] Onset: 06-09-2023 01-06-2019 Chronic Nonspecific chest pain (7 sources) Chest wall pain; Translations: [Other chest pain] Onset: 06-17-2022 05-26-2021 Episodic Nutritional deficiencies (1 source) Vitamin D deficiency, unspecified; Translations: [Vitamin D deficiency, unspecified] Onset: 06-09-2023 Chronic Nutritional deficiencies (1 source) Iron deficiency; Translations: [Iron deficiency] Onset: 06-09-2023 Episodic Other aftercare (1 source) Other care home (current) drug therapy; Translations: [Other local [employer] (current) drug therapy] Onset: 06-09-2023 Episodic Other bone disease and musculoskeletal deformities (3 sources) Costal chondritis; Translations: [Tietze's disease] Episodic Other circulatory disease (5 sources) Cardiac function test normal; Translations: [Normal cardiac ejection fraction] Episodic Other diseases of bladder and urethra (1 source) Detrusor overactivity; Translations: [Overactive bladder] Onset: 10-14-2023 Chronic Other diseases of bladder and urethra (1 source) Overactive bladder 10-14-2023 Chronic Other diseases of kidney and ureters (1 source) Acquired renal cyst without neoplastic change; Translations: [Cyst of kidney, acquired] Onset: 08-10-2023 Episodic Other diseases of kidney and ureters (5 sources) Cyst of kidney 08-10-2023 Episodic Other gastrointestinal disorders (2 sources) Diarrhea; Translations: [Diarrhea, unspecified] Episodic Other nutritional; endocrine; and metabolic disorders (5 sources) Overweight in adulthood with body mass index of 25 or more but less than 30; Translations: [Overweight] Episodic Other upper respiratory infections (2 sources) Sinusitis; Translations: [Chronic sinusitis, unspecified] 01-06-2019 Chronic Other upper respiratory infections (5 sources) Sinusitis; Translations: [Acute pharyngitis, unspecified] Episodic Pleurisy; pneumothorax; pulmonary collapse (7 sources) Pneumothorax; Translations: [Other pneumothorax] 03-24-2021 Episodic Residual codes; unclassified (2 sources) Tobacco user; Translations: [Tobacco use] 03-24-2021 Episodic [...] Spondylosis; intervertebral disc disorders; other back problems (7 sources) Low back pain 02-08-2020 Episodic Substance-related disorders (20 sources) Polysubstance abuse ; Translations: [Smoker] Onset: 06-09-2023 01-06-2019 Chronic Comment on above: 1 pack per daily.; Added secondary to d ocumentation in Social History. Suicide and intentional self-inflicted injury (3 sources) Suicidal thoughts; Translations: [Suicidal ideations] 01-05-2019 Episodic Syncope (1 source) Syncope and collapse; Translations: [Syncope and collapse] Onset: 09-13-2023 Episodic Unclassified (7 sources) Finding of sensation of bladder 02-08-2020 Unclassified (1 source) EMS Onset: 09-18-2023 Urinary tract infections (7 sources) Chronic interstitial cystitis 02-08-2020 Chronic Past or Other Problems Problem Classification Problem Date Documented Da te Episodic/Chronic Chronic obstructive pulmonary disease and bronchiectasis (7 sources) Chronic obstructive pulmonary disease and bronchiectasis 03-18-2023 Unclassified (1 source) Contact with and (suspected) exposure to covid-19 Z20.822 Unclassified (7 sources) Bipolar (qualifier value) 03-18-2023 Results Test Name Value Interpretation Reference Range Facility Alanine aminotransferase [En zymatic activity/volume] in Serum or PlasmaOrdered By: Jes Cruz on 11-01-2023 ALT [Catalytic activity/Vol] 17 U/L 7-52 [facility] Albumin [Mass/volume] in Ser um or Plasma by Bromocresol green (BCG) dye binding methoOrdered By: Jes Cruz on 11-01-2023 Albumin BCG dye [Mass/Vol] 4.3 g/dL 3.5-5.7 [facility] Alkaline phosphatase [Enzyma tic activity/volume] in Serum or PlasmaOrdered By: Jes Cruz on 11-01-2023 ALP [Catalytic activity/Vol] 87 U/L 34-104 [facility] Aspartate aminotransferase [ Enzymatic activity/volume] in Serum or PlasmaOrdered By: Jes Cruz on 11-01-2023 AST [Catalytic activity/Vol] 13 U/L 13-39 [facility] Basophils Auto (Bld) [#/Vol] Ordered By: Jes Cruz on 11-01-2023 Basophils (Bld) [#/Vol] 0.1 10*3/uL 0.0-0.2 [facility] Basophils/100 WBC Auto (Bld) Ordered By: Jes Cruz on 11-01-2023 Basophils/100 WBC (Bld) 1.1 % . [facility] Bilirubin Test strip Ql (U)O rdered By: Jes Cruz on 11-01-2023 Bilirubin Ql (U) Negative Negative [facility] Bilirubin.total [Mass/volume ] in Serum or PlasmaOrdered By: Jes Cruz on 11-01-2023 Bilirubin [Mass/Vol] 0.4 mg/dL 0.3-1.0 [facility] Calcium [Mass/volume] in Ser um or PlasmaOrdered By: Jes Cruz on 11-01-2023 Calcium [Mass/Vol] 9.4 mg/dL 8.6-10.3 [facility] Carbon dioxide, total [Moles /volume] in Serum or PlasmaOrdered By: Jes Cruz on 11-01-2023 CO2 [Moles/Vol] 28.5 mmol/L 21.0-31.0 [facility] Chloride [Moles/volume] in S shanna or PlasmaOrdered By: Jes Cruz on 11-01-2023 Chloride [Moles/Vol] 105 mmol/L 98-107 [facility] Cholesterol [Mass/volume] in Serum or PlasmaOrdered By: Jes Cruz on 11-01-2023 Cholesterol [Mass/Vol] 285 mg/dL High 140-200 [facility] Comment on above: Chol less than 200 m g/dl low riskChol 201-239 mg/dl borderline riskChol 240 mg/dl and greater high risk Cholesterol in LDL Calc [Mas s/Vol]Ordered By: Jes Cruz on 11-01-2023 Cholesterol in LDL [Mass/Vol] 198 mg/dL High 0-100 [facility] Comment on above: LDL ATP III CLASSIFI CATIONLDL less than 100 mg/dL OptimalLDL 100-129 mg/dL Near or above optimalLDL 130-159 mg/dL Borderline highLDL 160-189 mg/dL HighLDL greater than 189 mg/dL Very high Cholesterol in VLDL Calc [Ma ss/Vol]Ordered By: Jes Cruz on 11-01-2023 Cholesterol in VLDL [Mass/Vol] 29 mg/dL [facility] Color Auto (U)Ordered By: Adriano Cruz on 11-01-2023 Color (U) Light-yellow Yellow [facility] Creatinine [Mass/volume] in Serum or PlasmaOrdered By: Jes Cruz on 11-01-2023 Creatinine [Mass/Vol] 0.75 mg/dL 0.60-1.[address] [facility] Eosinophils Auto (Bld) [#/Vo l]Ordered By: Jes Cruz on 11-01-2023 Eosinophils (Bld) [#/Vol] 0.1 10*3/uL 0.0-0.45 [facility] Eosinophils/100 WBC Auto (Bl d)Ordered By: Jes Cruz on 11-01-2023 Eosinophils/100 WBC (Bld) 1.5 % . [facility] Erythrocyte distribution wid th Auto (RBC) [Ratio]Ordered By: Jes Cruz on 11-01-2023 Erythrocyte distribution width (RBC) [Ratio] 13.1 % 11.9-15.3 [facility] Ferritin [Mass/volume] in Se rum or PlasmaOrdered By: Jes Cruz on 11-01-2023 Ferritin [Mass/Vol] 42.8 ng/mL 11.0-306.8 [facility] Folate [Mass/volume] in Seru m or PlasmaOrdered By: Jes Cruz on 11-01-2023 Folate [Mass/Vol] 10.3 ng/mL >5.9 [facility] Comment on above: Folate reference ran ge: >5.9 ng/mlThe WHO technical consultation on folate and vitamin [id number] has determined that folate concentrations lessthan 4 ng/ml are considered deficient. Follitropin [Units/volume] i n Serum or PlasmaOrdered By: Jes Cruz on 11-01-2023 Follitropin Qn 32.3 m[IU]/mL [facility] Comment on above: FEMALE NORMALS (KEVEN ENOPAUSE) MID-FOLLICULAR PHASE: 3.9-8.8 mIU/mL MID-CYCLE PEAK: 4.5-22.5 mIU/mL MID-LUTEAL PHASE: 1.8-5.1 mIU/mLFEMALE NORMALS (POSTMENOPAUSE): 16.7-113.6 mIU/mLMALE NORMALS: 1.3-19.3 mIU/mL Globulin Calc (S) [Mass/Vol] Ordered By: Jes Cruz on 11-01-2023 Globulin (S) [Mass/Vol] 2.6 g/dL [facility] Glucose [Mass/volume] in Ser um or PlasmaOrdered By: Jes Cruz on 11-01-2023 Glucose [Mass/Vol] 95 mg/dL 70-100 [facility] Comment on above: ADA recommended refe rence rangeRandom Glucose Reference Range is dependent on time and content of last meal. Glucose of more than 200 mg/dL in a nonstressed, ambulatory subject supports the diagnosis of Diabetes Mellitus. Glucose [Mass/volume] in Uri ne by Test stripOrdered By: Jes Cruz on 11-01-2023 Glucose Test strip (U) [Mass/Vol] Normal mg/dL Normal [facility] Hematocrit Auto (Bld) [Volum e fraction]Ordered By: Jes Cruz on 11-01-2023 Hematocrit (Bld) [Volume fraction] 39.6 % 34.0-46.4 [facility] Hemoglobin Test strip Ql (U) Ordered By: Jes Cruz on 11-01-2023 Hemoglobin Ql (U) Negative Negative [facility] Hemoglobin [Mass/volume] in BloodOrdered By: Jes Cruz on 11-01-2023 Hemoglobin (Bld) [Mass/Vol] 13.3 g/dL 11.8-15.4 [facility] Iron [Mass/volume] in Serum or PlasmaOrdered By: Jes Cruz on 11-01-2023 Iron [Mass/Vol] 106 ug/dL 50-212 [facility] Iron binding capacity [Mass/ volume] in Serum or PlasmaOrdered By: Jes Cruz on 11-01-2023 Iron binding capacity [Mass/Vol] 423 ug/dL 255-450 [facility] Iron saturation [Mass Fracti on] in Serum or PlasmaOrdered By: Jes Cruz on 11-01-2023 Iron saturation [Mass fraction] 25.1 % 20-50 [facility] Ketones Test strip Ql (U)Ord ered By: Jes Cruz on 11-01-2023 Ketones Ql (U) Negative Negative [facility] Leukocyte esterase [Presence ] in Urine by Test stripOrdered By: Jes Cruz on 11-01-2023 Leukocyte esterase Test strip Ql (U) Negative Negative [facility] Leukocytes [#/volume] correc ricardo for nucleated erythrocytes in Blood by Automated counOrdered By: Jes Cruz on 11-01-2023 WBC corrected for nucl RBC Auto (Bld) [#/Vol] 7.3 10*3/uL 3.8-11.6 [facility] Lymphocytes Auto (Bld) [#/Vo l]Ordered By: Jes Cruz on 11-01-2023 Lymphocytes (Bld) [#/Vol] 2.0 10*3/uL 1.00-4.8 [facility] Lymphocytes/100 WBC Auto (Bl d)Ordered By: Jes Cruz on 11-01-2023 Lymphocytes/100 WBC (Bld) 28.0 % . [facility] MCH Auto (RBC) [Entitic mass ]Ordered By: Jes Cruz on 11-01-2023 MCH (RBC) [Entitic mass] 32.3 pg 24.7-34.3 [facility] MCHC Auto (RBC) [Mass/Vol]Or dered By: Jes Cruz on 11-01-2023 MCHC (RBC) [Mass/Vol] 33.6 g/dL 32.0-35.[address] [facility] MCV Auto (RBC) [Entitic vol] Ordered By: Jes Cruz on 11-01-2023 MCV (RBC) [Entitic vol] 96.0 fL 80-100 [facility] Monocytes Auto (Bld) [#/Vol] Ordered By: Jes Cruz on 11-01-2023 Monocytes (Bld) [#/Vol] 0.8 10*3/uL 0.0-0.8 [facility] Monocytes/100 WBC Auto (Bld) Ordered By: Jes Cruz on 11-01-2023 Monocytes/100 WBC (Bld) 10.8 % . [facility] Neutrophils Auto (Bld) [#/Vo l]Ordered By: Jes Cruz on 11-01-2023 Neutrophils (Bld) [#/Vol] 4.3 10*3/uL 1.8-7.7 [facility] Neutrophils/100 WBC Auto (Bl d)Ordered By: Jes Cruz on 11-01-2023 Neutrophils/100 WBC (Bld) 58.6 % . [facility] Nitrite Test strip Ql (U)Ord ered By: Jes Cruz on 11-01-2023 Nitrite Ql (U) Negative Negative [facility] No Panel InformationOrdered By: Jes Cruz on 11-01-2023 Estimated GFR (CKD-EPI) > 60.0 mL/Min [facility] Creatinine Clearance (Chem N/A [facility] Nucleated erythrocytes [Pres ence] in Blood by Automated countOrdered By: Jes Cruz on 11-01-2023 Nucleated RBC Auto Ql (Bld) 0.1 /100{WBC} 0-0.5 [facility] Platelet mean volume Auto (B ld) [Entitic vol]Ordered By: Jes Cruz on 11-01-2023 Platelet mean volume (Bld) [Entitic vol] 8.3 fL 6.3-10.7 [facility] Platelets Auto (Bld) [#/Vol] Ordered By: Jes Curz on 11-01-2023 Platelets (Bld) [#/Vol] 384 10*3/uL 150-450 [facility] Potassium [Moles/volume] in Serum or PlasmaOrdered By: Jes Cruz on 11-01-2023 Potassium [Moles/Vol] 4.3 mmol/L 3.5-5.[address] [facility] Protein Test strip (U) [Mass /Vol]Ordered By: Jes Cruz on 11-01-2023 Protein (U) [Mass/Vol] Negative Negative [facility] Protein [Mass/volume] in Ser um or PlasmaOrdered By: Jes Cruz on 11-01-2023 Protein [Mass/Vol] 6.9 g/dL 6.4-8.9 [facility] RBC Auto (Bld) [#/Vol]Ordere d By: Jes Cruz on 11-01-2023 RBC (Bld) [#/Vol] 4.13 10*6/uL 3.60-5.00 [facility] Serum or plasma albumin/glob ulin mass ratioOrdered By: Jes Cruz on 11-01-2023 Albumin/Globulin [Mass ratio] 1.7 {ratio} [facility] Serum or plasma anion gap de terminationOrdered By: Jes Cruz on 11-01-2023 Anion gap [Moles/Vol] 10.8 mmol/L 6.0-15.0 [facility] Serum or plasma high density lipoprotein (HDL) cholesterol measurementOrdered By: Jes rCuz on 11-01-2023 Cholesterol in HDL [Mass/Vol] 58 mg/dL 23-92 [facility] Comment on above: HDL CHOL ATP-III CLA SSIFICATION Cardiovascular RiskHDL > or equal to 60 mg/dL LOWHDL < 40 mg/dL HIGH Serum or plasma total choles terol/high density lipoprotein (HDL) cholesterol mass ratOrdered By: Jes Cruz on 11-01-2023 Cholesterol.total/Chol esterol in HDL [Mass ratio] 4.9 {ratio} <5.0 [facility] Sodium [Moles/volume] in Ser um or PlasmaOrdered By: Jes Cruz on 11-01-2023 Sodium [Moles/Vol] 140 mmol/L 136-145 [facility] Specific gravity Test strip (U) [Rel density]Ordered By: Jes Cruz on 11-01-2023 Specific gravity (U) [Rel density] 1.014 1.001-1.030 [facility] Thyrotropin [Units/volume] i n Serum or PlasmaOrdered By: Jes Cruz on 11-01-2023 TSH Qn 1.49 m[IU]/L 0.45-5.33 [facility] Transferrin [Mass/volume] in Serum or PlasmaOrdered By: Jes Cruz on 11-01-2023 Transferrin [Mass/Vol] 302 mg/dL 203-362 [facility] Triglyceride [Mass/volume] i n Serum or PlasmaOrdered By: Jes Cruz on 11-01-2023 Triglyceride [Mass/Vol] 145 mg/dL 0-149 [facility] Comment on above: TRIG ATP III CLASSIF ICATIONTRIG less than 150 mg/dL NormalTRIG 150-199 mg/dL Borderline highTRIG 200-500 mg/dL High TRIG greater than 500 mg/dL Very highStandard traceable to the Center for Disease Conrtrol and Prevention (CDC) test method. Triiodothyronine (T3) Free [ Mass/volume] in Serum or PlasmaOrdered By: Jes Cruz on 11-01-2023 Free T3 [Mass/Vol] 2.86 pg/mL 2.50-3.90 [facility] Urea nitrogen [Mass/volume] in Serum or PlasmaOrdered By: Jes Cruz on 11-01-2023 Urea nitrogen [Mass/Vol] 17 mg/dL 7-25 [facility] Urine appearanceOrdered By: Jes Cruz on 11-01-2023 Appearance (U) Clear Clear [facility] Urobilinogen Test strip (U) [Mass/Vol]Ordered By: Jes Cruz on 11-01-2023 Urobilinogen (U) [Mass/Vol] Normal mg/dL Normal [facility] Vitamin B12 ser/plasOrdered By: Jes Cruz on 11-01-2023 Cobalamin (Vitamin B12) [Mass/Vol] 208 pg/mL 180-914 [facility] Vitamin D+Metabolites [Mass/ volume] in Serum or PlasmaOrdered By: Jes Cruz on 11-01-2023 Vitamin D+Metabolites [Mass/Vol] 34.2 ng/mL 30-100 [facility] Comment on above: VITAMIN D STATUS 25( [place])VITAMIN D RANGE (ng/mL) Deficient <20 Insufficient 20 to <30Sufficient 30 to 100Reference: Baron MF,Suze DONOVAN, Abdiel MAXWELL, et al. Evaluation,treatment, and prevention of vitamin D deficiency; an Endocrine Society clinical practice guideline. JCEM. 2010; 96(7):1911-30. WBC Auto (Bld) [#/Vol]Ordere d By: Jes Cruz on 11-01-2023 WBC (Bld) [#/Vol] 7.3 10*3/uL 3.8-11.6 [facility] pH Test strip (U)Ordered By: Jes Cruz on 11-01-2023 pH (U) 6.5 [pH] 5.0-9.0 [facility] Ambulatory Visit Summaryon 0 10-14-2023 Ambulatory Visit Summary Ambulatory Visit Summary ISELA CRAIG :1970 Visit Date:10/14/2023 Ambulatory Visit Instructions Your Diagnosis Microscopic hematuria Your Care Team Attending Physician - JES ROLLE PA-C Primary Care Physician - JES CRUZ CNP This Is Your Medications List aspirin (aspirin 81 mg Oral EC Tab) atorvastatin (atorvastatin 40 mg Tab) busPIRone (busPIRone 15 mg Tab) cholecalciferol (Vitamin D3 50,000 intl units oral capsule) clonazepam (Klonopin 0.5 mg Tab) cyclobenzaprine (cyclobenzaprine 5 mg Tab) gabapentin (gabapentin 100 mg Cap) ibuprofen (Motrin IB) isosorbide mononitrate (isosorbide mononitrate 30 mg ER Tab) lamotrigine (lamotrigine 25 mg oral tablet, dispersible) mirtazapine (mirtazapine 7.5 mg oral tablet) naltrexone (Vivitrol 380 mg intramuscular injection, extended release) nicotine (nicotine 2 mg Oral transmucosal Gum) olanzapine pantoprazole (pantoprazole 40 mg Oral EC Tab) prazosin propranolol (propranolol 10 mg Tab) sertraline (Zoloft 100 mg Tab) Procedures Performed Cystourethroscopy with dilation of urethral stricture (10/05/2023), Cardiac catheter, Colonoscopy, Hysterectomy, Procedure on back. Discharge Vitals Height 164 cm Height 65 in Weight 66 kg Weight 145.2 lb BMI 24.54 What to do next Scheduled Follow-Up Appointments Wednesday 1:00 PM EDT With: Deepak MOSES, Roosevelt Remy Where: [facility] Medications What How Much When Instructions Unchanged aspirin (aspirin 81 mg Oral EC Tab) 1 Tablets By Mouth Every day Unchanged atorvastatin (atorvastatin 40 mg Tab) 1 Tablets By Mouth Every day Unchanged busPIRone (busPIRone 15 mg Tab) By Mouth 2 times a day Unchanged cholecalciferol (Vitamin D3 50,000 intl units oral capsule) 1 Capsules Unchanged clonazepam (Klonopin 0.5 mg Tab) 0.5 Tablets By Mouth 2 times a day Unchanged cyclobenzaprine (cyclobenzaprine 5 mg Tab) By Mouth 3 times a day Unchanged gabapentin (gabapentin 100 mg Cap) By Mouth 3 times a day Unchanged ibuprofen (Motrin IB) By Mouth Every 6 hours Unchanged isosorbide mononitrate (isosorbide mononitrate 30 mg ER Tab) 1 Tablets By Mouth Once a day (in the morning) Unchanged lamotrigine (lamotrigine 25 mg oral tablet, dispersible) By Mouth 2 times a day Unchanged mirtazapine (mirtazapine 7.5 mg oral tablet) 1 Tablets By Mouth Every day Unchanged naltrexone (Vivitrol 380 mg intramuscular injection, extended release) Unchanged nicotine (nicotine 2 mg Oral transmucosal Gum) Unchanged olanzapine Unchanged pantoprazole (pantoprazole 40 mg Oral EC Tab) By Mouth Every day Unchanged prazosin By Mouth 3 times a day Unchanged propranolol (propranolol 10 mg Tab) Unchanged sertraline (Zoloft 100 mg Tab) 1 Tablets By Mouth Every day Allergies codeine (Rash present) Problems Ongoing - [...] you for choosing us for your care. [facility] Provider Letteron 10-14-2023 Provider Letter Provider Letter October 14, 2023 ISELA CRAIG [address] [place] [id number] : 1970 To Whom It May Concern, Please excuse above patient from work. Date of Illness: From: 10/14/23 To: 10/14/23 May Return to Work On: Patient had an appointment on 10/14/23 with SHABNAM Bowens Restrictions: None Comments: Patient had an appointment with SHABNAM Bowens on 10/14/23 Sincerely, [facility] [place] [facility] Urology Office/Clinic Noteon 10-14-2023 Urology Office/Clinic Note Urology Office/Clinic Note Chief Complaint follow up HPI Staff S/P Cysto/UD 10/05/23 Previous Dx: microhematuria, mixed urinary incontinence, urgency incontinence, JOSE ROBERTO, incomplete bladder emptying, flank pain, hx of renal stones, renal cyst, smoker. Cytology neg. CT AP w/wo con 08/28/23. Cysto by Dr. Partida 10/05/23 - Discussed midurethral vaginal sling, bladder control meds, metabolic workup. Pt states she has thought about it and would like to move forward with the sling. Review of Systems PHQ Score Initial Depression Screen Score: 0 SCORE no fever, chills, malaise, myalgia. no rash/lesions. no chest pain, palpitations, or SOB. no abdominal pain, nausea, vomiting. no unilateral calf swelling, redness, pain Physical Exam Vitals & Measurements HT: 65 in HT: 164 cm WT: 66 kg WT: 145.2 lb BMI: 24.54 General: nontoxic, NAD Mouth: moist mucosa Lungs: normal respiratory effort Cardio: regular rate, good distal perfusion Abdomen: nondistended, no suprapubic distention or tenderness, no CVA tenderness Neurologic: Grossly normal Skin: No rashes or suspicious lesions Assessment/Plan 1. Stress incontinence (N39.3: Stress incontinence (female) (male)) Specific risks of mid-urethral sling were discussed including: urinary retention, continued urinary leakage, fistula formation between the vagina and the bladder, and injury to the bladder or blood vessels in the pelvis. We also discussed the risk of chronic pelvic pain, erosion of the mesh requiring partial excision of the eroded part. There is a risk of infection of the mesh, despite the usage of IV antibiotics and antibiotic solution used for irrigation during the procedure. Pt aware that she may void differently after the procedure. We discussed the existing controversy about vaginal mesh procedures at length and pt is aware that MUS mesh is currently considered safe and effective. Results and experiences may vary and are unique to each patient. The efficacy of the procedure may diminish over time and no promise or guarantee is made about specific results or experiences. Details of procedure went over at length including post-op expectations. All questions answered. Ordered: E&M of Est. Patient Moderate 30-39 Min 63982 2. History of kidney stones (Z87.442: Personal history of urinary calculi) Has passed multiple stones. Most recent 5yrs ago. no stones on recent KUB/AMOL. Will complete metabolic work-up in future following sling procedure. 3. OAB (overactive bladder) (N32.81: Overactive bladder) Will reassess frequency/urgency/UUI after sling procedure. May benefit from concurrent OAB med (anticholinergic vs beta 3). Offered to try this now. Pt wants to focus on the sling first. Orders: Urnls Dip Stick Auto w/o Microscopy POC 80588 Follow-up With When Contact Information [facility] [address] [address] Business (1) Additional Instructions: for procedure as scheduled Patient Education Urethral Vaginal Sling Problem List/Past Medical History Ongoing Bipolar depression Feeling of incomplete bladder emptying Flank pain Hematuria History of kidney stones Interstitial cystitis Lower back pain Microscopic hematuria Mixed incontinence Nocturia OAB (overactive bladder) Poor urinary stream Renal cyst Smoker Stress incontinence Urge incontinence Urgency of urination Historical Anxiety Bipolar COPD (Chronic Obstructive Pulmonary Disease) Assessment Test scale Coronary spasm Hypertension Substance abuse Procedure/Surgical History Cystourethroscopy with dilation of urethral stricture (10/05/2023), Cardiac catheter, Colonoscopy, Hysterectomy, Procedure on back. Medications aspirin 81 mg Oral EC Tab, 81 mg= 1 tab(s), Oral, Daily atorvastatin 40 mg Tab, 40 mg= 1 tab(s), Oral, Daily, 3 refills busPIRone 15 mg Tab, Oral, BID cyclobenzaprine 5 mg Tab, Oral, TID gabapentin 100 mg Cap, Oral, TID isosorbide mononitrate 30 mg ER Tab, 30 mg= 1 tab(s), Oral, qAM, 3 refills Klonopin 0.5 mg Tab, 0.25 mg= 0.5 tab(s), Oral, BID lamotrigine 25 mg oral tablet, dispersible, Oral, BID mirtazapine 7.5 mg oral tablet, 7.5 mg= 1 tab(s), Oral, Daily Motrin IB, Oral, q6hr nicotine 2 mg Oral transmucosal Gum olanzapine pantoprazole 40 mg Oral EC Tab, Oral, Daily prazosin, Oral, TID propranolol 10 mg Tab Vitamin D3 50,000 intl units oral capsule, 1250 mcg= 1 cap(s) Vivitrol 380 mg intramuscular injection, extended release Zoloft 100 mg Tab, 100 mg= 1 tab(s), Oral, Daily Allergies codeine (Rash present) Social History Alcohol Beer, Wine, Liquor, 03/18/2023 Tobacco 5-9 cigarettes (between 1/4 to 1/2 pack)/day in last 30 days Tobacco Use:. Never Smokeless Tobacco Use:. Cigarettes, Yes, 08/10/2023 Smoker, current status unknown Tobacco Use:. Yes, 01/17/2020 Family History Alcoholism: Father. Heart disease: Mother. (more content not included)... [facility] Comment on above: Result Comment: Elec tronically Signed By: ELSA MOSES, JES E\.br\Date and Time Signed: 10/14/23 13:24 EDT Main OR Intraoperative Recor don 10-05-2023 Main OR Intraoperative Record Main OR Intraoperative Record IntraOp Document Type FTURO Summary Primary Physician: Alexandro PARTIDA MD Finalized Date/Time: 10/05/23 09:45:46 Pt. Name: ISELA CRAIG Benjamín StarksB./Sex: 1970 Female Med Rec #: [id number] Physician: Alexandro PARTIDA MD Financial #: [id number] Pt. Type: O Room/Bed: / Admit/Disch: 10/05/23 08:22:58 - Institution: Case Times FTURO Entry 1 Patient Times In Room 10/05/23 09:24:00 Out Room 10/05/23 09:42:00 Procedure Times Start 10/05/23 09:30:00 Stop 10/05/23 09:34:00 Anesthesia Times Last Modified By: Estrella Aguirre 10/05/23 09:42:45 Case Attendance FTURO Entry 1 Entry 2 Entry 3 Case Attendee Alexandro PARTIDA MD, Kelsie E Troike, Kendall R Role Performed Surgeon - Primary Estimator Project Manager - Primary Scrub - Primary Time In 10/05/23 09:24:00 10/05/23 09:24:00 10/05/23 09:24:00 Time Out 10/05/23 09:42:00 10/05/23 09:42:00 10/05/23 09:42:00 Procedure CYSTOSCOPY LOCAL(.) CYSTOSCOPY LOCAL(.) CYSTOSCOPY LOCAL(.) Comments Last Modified By: Estrella Aguirre Kelsie E Burgderfer, Kelsie E 10/05/23 09:42:46 10/05/23 09:42:46 10/05/23 09:42:46 Surgical Procedures FTURO Entry 1 Procedure Description Procedure CYSTOSCOPY LOCAL Modifiers . Surgeon Description CYSTO LOCAL Primary Procedure Yes Primary Surgeon Alexandro PARTIDA MD Start 10/05/23 09:30:00 Stop 10/05/23 09:34:00 Anesthesia Type Local Surgical Service Urology Wound Class 2 - Clean-Contaminated Last Modified By: Estrella Aguirre 10/05/23 09:42:47 General Case Data FTURO Pre-Care Text: Classifies surgical wound, implements aseptic technique, initiates traffic control Entry 1 Case Information OR URO 1 FT Case Level None Wound Class 2 - Clean-Contaminated Specialty Urology Preop Diagnosis HEMATURIA, FLANK PAIN, Postop Same As Preop Yes MIXED INCONTINENCE Postop Diagnosis HEMATURIA, FLANK PAIN, Outcomes Met? Yes MIXED INCONTINENCE Last Modified By: Estrella Aguirre 10/05/23 09:23:07 Post-Care Text: The patient is free from signs and symptoms of infection EU IntraOp - FTURO Pre-Care Text: Implements protective measures prior to operative or invasive procedure, confirms identity before the operative or invasive procedure, verifies operative procedure, surgical site, and laterality Entry 1 EU Perioperative Protocols Procedure(s) CYSTOSCOPY LOCAL(.) Patient Identity Birthday, ID Band Verified (select at Check, Patient least 2): Participation Consents / H and P HandP, Surgery/Procedure Operative Site N/A Verified Consent Marking Verified Surgical Site Yes Laterality Verified n/a Verified Procedure Verified Yes Correct Patient Yes Position Verified Availability Equipment, Medication Time Out JAQUAN PATRICK, Alexandro Hernandez, Verified (If Participants Estrella Aguirre, Applicable) Solo Gibson Time Out Complete 10/05/23 09:28:00 Allergies Reviewed? Yes Allergies Reviewed Self/Patient With Body Position Frog Legged Prep Area VAGINA Prep Agents Betadine Solution Skin. Condition Unable to Visualize Description N/A Additional None Specimens Comment N/A Specimens Collected Vitals - EU Blood Pressure 126/72 Pulse 92 bpm Respirations 14 br/min SPO2 99 % EBL 0 IandO - EU Total Intake 0 mL Total Output 0 mL Outcomes Met? Yes Last Modified By: Estrella Aguirre 10/05/23 09:28:38 Post-Care Text: The patient is free from signs and symptoms of injury caused by extraneous objects Sign Out FTURO Entry 1 Before Patient Leaves OR Nurse verbally Yes Nurse verbally n/a confirms with the confirms with the team the name of team that the procedure(s) instrument, sponge, recorded and needle counts are correct (or N/A) Nurse verbally n/a Nurse verbally Yes confirms with the confirms with the team how the team whether there specimen is labeled are any equipment (including patient problems to be name), if applicable addressed Sign Out Complete 10/05/23 09:34:00 Last Modified By: Estrella Aguirre 10/05/23 09:34:38 Case Comments Finalized By: Estrella Aguirre Document Signatures Signed By: Estrella Aguirre 10/05/23 09:45 Estrella Aguirre 10/05/23 09:42 Estrella Aguirre 10/05/23 09:42 Estrella Aguirre 10/05/23 09:45 [facility] Main OR Preoperative Recordo n 10-05-2023 Main OR Preoperative Record Main OR Preoperative Record Holding Area Document Type FTURO Summary Primary Physician: Alexandro PARTIDA MD Finalized Date/Time: 10/05/23 08:57:00 Pt. Name: YESIISELA/Sex: 1970 Female Med Rec #: [id number] Physician: Alexandro PARTIDA MD Financial #: [id number] Pt. Type: O Room/Bed: / Admit/Disch: 10/05/23 08:22:58 - Institution: Case Times Holding FTURO Pre-Care Text: Verifies consent for planned procedure, identifies individual values and wishes concerning care, includes family members in perioperative teaching Secures patient's records' belongings, and valuables, maintains patient's dignity and privacy, and maintains patient confidentiality Entry 1 In Holding 10/05/23 08:50:00 Outcomes Met? Yes Last Modified By: SEAN Pagan RN, Ruthann 10/05/23 08:50:05 Post-Care Text: The patient participates in decisions affecting his or her perioperative plan of care The patient's right to privacy is maintained Surgery Checklist FTURO Entry 1 Patient Birthday, ID Band Procedure History and Physical, Identification: Check, Patient Verification: Surgical Consent, With Participation Patient NPO after Midnight: n/a Date/Time: 10/05/23 08:50:00 Personal Items: Jewelry Personal Items clothes Comment: Limitations: none Complaints of Pain: No Skin Integrity Unable to Visualize Vitals - EU Blood Pressure 126/72 Pulse 92 bpm Respirations SPO2 Additional None RN Reviewed Yes Specimens Collected Last Modified By: SEAN Pagan RN, Ruthann 10/05/23 08:51:06 Finalized By: SEAN Pagan RN, Ruthann Document Signatures Signed By: SEAN Pagan RN, Ruthann 10/05/23 08:51 SEAN Pagan RN, Ruthann 10/05/23 08:57 [facility] Operative Reporton Operative Report Operative Report Patient: ISELA CRAIG Age: 53 years Sex: Female : 1970 Associated Diagnoses: None Author: Alexandro PARTIDA MD Procedure Operative Information Details: Date/ Time: 10/05/2023 09:41:00. Pre-Op Dx: Micro Hematuria - With Symptoms - R31.29, Mixed Urinary Incontinence - N39.46, Urgency Incontinence - N39.41, Stress Incontinence - N39.3, Incomplete Bladder Emptying - R39.14. Post-Op Dx: Same. Anesthesia Type: Local. Procedure: Local Cystoscopy. Complications: None. Risks/Benefits/Informe d Consent: Surgical risks, benefits, details of the procedure have been explained to the patient, Full informed consent has been obtained. Intraoperative Information Prepped: Patient is brought back to the endoscopy suite, Patient is placed in modified dorso/lithotomy position, Patient prepped in the usual fashion with Betadine solution, 2% Xylocaine Jelly is placed per Urethra, After waiting several minutes the Cystoscope is introduced. The Urethra is: Hypermobile urethra.. The Bladder is: Normal, Significant stress incontinence with Valsalva. No prolapse. Minimal atrophic vaginitis. The ureteral orifices: Show efflux of clear urine. Devices Implanted: None. Removal: Cystoscope is removed, The patient tolerated it well. Postoperative Information Discharge: Patient is discharged home with antibiotic coverage, Follow up arranged. We discussed doing a mid urethral vaginal sling since she has significant stress incontinence and this is the majority of her bother. We also discussed potentially needing concomitant bladder control meds. We also discussed the likely etiology of her microhematuria is from her nephrocalcinosis seen on her CT scan. She will need a full stone metabolic workup to cover all of her bases with stone prevention. She will think about these options and follow-up with Kim Rolle in a month or 2.. [facility] Comment on above: Result Comment: Elec tronically Signed By: JAQUAN PATRICK, Alexandro Clark.[email or web address]\Date and Time Signed: 10/05/23 09:46 EDT Provider Letteron 10-05-2023 Provider Letter Provider Letter October 05, 2023 To Whom It May Concern, Please excuse above patient from work. Date of Illness: From: 10/05/2023 To: 10/05/2023 May Return On:10/05/2023 Sincerely, [facility] [address], [address] [place] [address] [facility] Insurance Correspondenceon 0 09-28-2023 Insurance Correspondence [id number]#1. [id number] [facility] Coding Summary.on 09-23-2023 Coding Summary. OZRRSkos66QYk0hVq+PG hl YWQ+GD0NSVJpK10kjXElaA 3zS8AGYTiGGcxuQGBLZWlO HlMleaCfZG5hyVXvOJCq IC8+IZ4uFMOsZrcqyBGdj2 I9sDA0F91uka5wOWhsfQW6 KKImVnPjmjqzf8gugCr4IX cuNmluOyBt RLTozV18ZJV6kH29Fk17bG WkpMSmv0iecDw0AjUwIETr FUX8jCzjHVeqv8UhLQZjH5 5cuXDvg2Y1 ERHriXrmqWGeDpNfaAJ4cW 7xYMtxiwfeu5prmgwcDyb2 hd16zJOgx5D6zZN9K6Jodd M1PZUhaPMo OimviRTTpH0wcndvs2bxyf rfHvCcBCUrBKs5VEa4PYGc mKxzOjRgNP74DCO1DNQdif TjO6JsVHIm yRtwVdK4i1Y9Of2UJ5VSLa dhA8SMKPXRDJpagFW+PC90 no26Z2DyIccmJza2NGDnHF G8aXE3aC3s VIWtJNjew3U8qJS5I4Wpjo Tkxg9bg4xyMYXyJKkaM31y eTObk8Q0NKDaxMJ9KRJwhR dnCgLxkP66 Oyc+HEHsrOvlm5HjIzwtd2 yjs9eodYl0TjgrIMCeulXs gKyqUVS8i6QhRp9kWJIjrM A7xIV9oV2b OrIdKiN2GNvzQ696GyDkvU TsQfobQ66lS2KvgAO+PHRy Ncp9RCSnrMfeNA5wM5MbDO RpbmctbGVm bCzdNO5fKWQdqaaqFPOmvZ 3eVZJjX8j9IxQkMcI7RMoe Y2IaOXWccdsrAv76wT6tRp GyVqO4KLto E0KuciM4RXHtdSLlQNogUK T4F65ww7S7HFKgTHPsESV3 rQC7uA8whHutxarqyUOcyL sgdmVydGlj DIhhEBjfE426TVDlrXtsBm NvZGluZyBEYXRlOiAgMDYv MjAvMjAyNDwvdGQ+PHRkIH W3tLqnZGTi fJWtWSsgVr2ziOevpHitIL 3bMKLdzocjVORgsC7lASEw yPNqpOujFS7xNXIzrgfuz5 56KkQsFLH2 BZUgdQEaO2VmhQ9uIhXoAI MoCTMjX7IrgRPfUBbeM378 TFhbWrE8XEVykqYrM2AbSU FsaWduOiB0 c9T5Cu0Zl3MjybntA6DflM TsNxSrOqyvYNf7U1CcRuqw dHI+ZV57XIMvBB54QLr9TR N7vFllUIbp ECNjZ8RpxB3aTtOgEPYpOG RkOyc+PHRhYmxlIHdpZHRo OSozGYNvCgUljXsxCS0vUe 9yZGVyLWNv cXavkWKnHpEol2meFCRpIT wiAP7muAfzG4TphBR7FNLr v5r5Rr36T14oM2PwaQH+PG SvrJF1xIT3 fM8lOnFjYhE9JCdoV406Cd FugVJjRyozy2mgl8wbeDt6 ZtF2VIEusjBraBftUOW5y0 ImGz78V17b IHdpZHRoPSIxNSUiIHZhbG fefi1duW0pRt0+PGNvbCB3 jXD5pK8yNxVmQpO8NDrlU1 49InRvcCIv Awnun8lbp0swiXt8GxHyPN ZkeeJcxNeqETG7y2PtSv58 U9OdxVjnm9IcQbx9dk25iI Rwd9V4xZQ1 Q0FzTJUcuzezkZBicHaiXW 0xDUNfvahgMRPcsW8fXSTj B5x2QxRvWcO5JUfyZ8Kbve N1BWMarFPt QNXquWGGbY5zzvqda2rujx meCaMaPEUjJEc6COw4SQBz jWvvQqZzTXX6RvX9AIF2uJ CdjS5bmGsw nxlhkW1rMct+FSF2rEZjdX RWHZ8yLuzgkRJ+PHRkIHN0 vNddZSwlZTWmpN3vDDYnU5 d9UnGvUeX1 QYlvN0VwotN3AMIjfIJpQG RoyHKNrS4xpbtyi9lwsxix SjZnAFNwMVx5CJw5ZTUfdT duOiBsZWZ0 JnK3VKR7dHNelB6flJkuch lqoA1tAhh+QmlydGggRGF0 HSv0H2WqWgf2EISliFaeYH 0ncGFkZGlu Lf1foHvrlStoQD7cMUDjcc tyd330PcBxd6pwKYPooPVy LDvpXLV0N79re3V8DLKaVS JaCUH0mNK0 pV0coGebefadnPEokQpfom SnfTouJXvdOXeuB472EEFt nBsqPwVxGKv4N3DoRmc2TT DcaHdpKG3x eAXpEBwsMy6qgKwxpGgdGR 5tQUGahkvqc211EiBxp7eu NNJgwBRtQYerCWD6B41re2 S2RVDtKZXf MIT2qLI6yD9eqNhgnzqnhC VmdDsgdmVydGljYWwtYWxp J907CRZlpJdpJhHdgEd0V7 ZqKwn8IJSy bUgkGH4voYEwJDbzNz5bhV resXmvHR8tGDTimqqlw160 FcMob6ymNLQmzGItXQfwCW I8U74ri4L3 XJDrBBSbUQM8eKW3oO4vbU lnbjogbGVmdDsgdmVydGlj RHxxMLusT042HINanVriCr BhdGllbnQg JUukFCc0E5AlGoparRM+PC 16XEGeSX96aZHdqEWum8dl hWq5OlVwJIVyWXK3cXwwRS oba4WlMFXy T95wuEGlr3M0IWOqvEeqdH LqTtVdxWH5jH9aSWsaymcn b5idrymgSprof3loef73aK 23G63wIBdp ZHRoPSIzMCUiIHZhbGlnbj 6wbK9wFw3+HBTpeXV7yHT4 kK3zDCWkRkT3ZHcuJ471Nb RvcCIvPjxj n7qrv9vymGs9NaJ1NVDqol DsdGnrPLN8y3TgCz71C87p IHdpZHRoPSIyMCUiIHZhbG kpop5oiN4c Ii8+NCIacPI6iRN7tJ5lCt KrSpN7FUijL800TrFnqBHt WqdlU98bP8MdrCN+PHRyPj l5BMJnzRpu PW0ieUDcFOvdWh5uWEI4Ps OqFxJjJFqdT8ZfRXMrijpi vvuovCB7VMXfMSVhaJ97At 9udDogMTBw hUJWbV8kuvtpc0ldcliyIt XcOLEqDJu0NHb7WMRdoQvv GwYiYOM6QzN2NXD7qPOudE 1hbGlnbjog gO4zG3LdONJxhbkaYv33kB 0dZpHjCuO6NXutKny+Q09S QklOLCBDSEVOTkkgSzwvdG Q+PHRkIHN0 vFooCDsgSZTwvT2fQZIvH5 z4BbNfOcN5SJfvR6LsYMCw xwjnAr65eW1uQcLpLzY7ZQ gsF5FzgmP0 IHOcxBRzSQsfTUB4I74ii9 D1LWHkDBXnIXH7hGL9wH6b bGlnbjogbGVmdDsgdmVydG ljYWwtYWxp X728YZAhkGvaHpNuDkSgNw X5SlO0P5CrQvx5FGQdpKuf PB3euVHjGFweWn5psEoxmB yvEX2aNOSr xnafLCYbiP0jJDXzeXQgrV tkAC2iWNXdrnldr841AcIr INL8YONtuUTaP7KyoZ3fEf AjMDAwMDAw G5TemQQxUFiqW194UEglZt P6BRQyvcIyX7WrOMOvzMjr GlM7j7D1Nf79GtAMPWUnjv wvdGQ+PHRk RZZ2gCopNHysHICudY3cNP GxR9n0FsKeMqA5HWcpP1Xx OXXdzlgaZp71bY3rAsBhJk P8YXwiC6Ft ovO8NJZqnJYuMGcsZIF6Y3 6fd2N5CYLzFKOyUAM4bMG4 zP7srGzlqddhwQFdgBnokq VydGljYWwt JCfwD604DOKyiYneAbPrgZ FsZTwvdGQ+ULWgLML9aHns RScbYSRsaQ5iEPPxQ8g0Zi YtWkS7VNdw P1BkQVLvtrxhHm03tO5vKt YkOnN4WCqlL2SwbbQ8NODc iXRiDGviDAF3H80mr8H7ZC MwMDAwMDA7 zKD2hZ6soCarouisfQUuxP ctoyQeqOcvQGgoSIerH925 ZRPwxHfrGo97gHUijQawhr E0P5FpOfur dHI+UX85HOEsLM30hLAdeH Lbx4gbaOe4TrLsEWZpSFR8 rExqLGqjy1SkEGHqK45hkO Owk6K8DSUb qKmfuMElFiCsgTU0pG1cJF buppqzf2vzqojoLrqpm7zt wf33eU85A59eFIgkJYYwBG IzMCUiIHZh kWavkz0acD6wIr6+PGNvbC O0sLC3oG8bSxYmGvH0PObb R813XnObeKVcZeikx0gsc3 tdeMe9AsCe EADwdcOqhRndQQY0s8VnFw 97E14gDYpnKYQxITHiRPAu XSRylYklbn3ikT4gRh5+PC 7as3sici65 xZ57jAW+NJUmBIY2eNuqCX etVXOpsQ1mEIyrLfY7ESIr KlUsdY37mKWwGNzpBc2guV gwbRxqHU7i OZYnviltf818QoPmn2abIW DczTFnFLmdOQF5B50uj3S5 ECTqAJZcUFT5eZT7bY9lwL lnbjogbGVm dDsgdmVydGljYWwtYWxpZ2 11VIAizGwwPrXygHVfT2fs enGMZD6xQurlbXY+PHRkIH C6qQmaSRtk XTWpwQ6xGMNtW6q6HsNcWw V2VSniR7ErwdU9TGYktVQp NPAztCRSdP7rzwygc2jqmt ogIzAwMDAw ZSn7ZJm2MQWgjGvyYqBhCD J8KaF0ECL4tQKriE0dvJmy mltakO7uUrl+RklOOjwvdG Q+PHRkIHN0 zYhrWDmiVZUvaE6hOEZqC1 l8YqCkOqS9NVkoJ9AmacW3 AOWlzNFjOSBdgMRKzL2ugi vtq8lkzcmi KbCsTHYtNAf8MDz7ERBppY npEyJsBXO1XhU3CNC9zZOf dK8pbNuhalwyyH8eUgi+TV JOOjwvdGQ+ QBJwNTO8mBgnBFawUEJueD 8tWJUpR3p3PpLsOcS1UGbw Q4BrjzG9JIWmsKFdYGXspS WKmQ9tasyq o7ijpvmkCfAuHPPvUKx3UP x3XJVswGqxJgFbMZU1PpN1 GOP2rPUkbX8kbZoayropyJ 9wOyc+UGF5 SBE2SI56EJ03C2SyGxiydT FibGU+PHRhYmxlIHdpZHRo AWfkAEMxBhNmnGfsUM6vGr 9yZGVyLWNv bGxhcHNlOiBjb (more content not included)... Normal [facility] CBC AND AUTO DIFFon 09-18-19 24 ABSOLUTE BASOPHIL 0.0 X10E9/L Normal 0.0-0.2 [facility] Comment on above: Performed By: #### C KAYA CMP, 3040-3 #### [facility] ([id number]) [address] [place] [address] 80396 ABSOLUTE NEUTROPHIL 3.2 X10E9/L Normal 1.5-6.6 [facility] Comment on above: Performed By: #### C KAYA CMP, 3040-3 #### [facility] ([id number]) [address] [place] [address] 14675 Basophils/100 WBC (Bld) 0.7 % Normal [facility] Comment on above: Performed By: #### Terrie KIRKPATRICK CMP, 3039-06 #### [facility] ([id number]) [address] [place] [address] 20696 Eosinophils (Bld) [#/Vol] 0.1 10*3/uL Normal 0.0-0.4 [facility] Comment on above: Performed By: #### Terrie KIRKPATRICK CMP, 3039-06 #### [facility] ([id number]) [address] [place] [address] 77964 Eosinophils/100 WBC (Bld) 2.4 % Normal [facility] Comment on above: Performed By: #### Terrie KIRKPATRICK CMP, 3039-06 #### [facility] ([id number]) [address] [place] [address] 75179 Erythrocyte distribution width (RBC) [Ratio] 13.6 % Normal 11.5-15.0 [facility] Comment on above: Performed By: #### Terrie KIRKPATRICK [facility], 3039-06 #### [facility] ([id number]) [address] [place] [address] 81498 Hematocrit (Bld) [Volume fraction] 34.5 % Low 35-47 [facility] Comment on above: Performed By: #### Terrie KIRKPATRICK CMP, 3039-06 #### [facility] ([id number]) [address] [place] [address] 49519 Hemoglobin (Bld) [Mass/Vol] 11.6 g/dL Low 11.7-15.5 [facility] Comment on above: Performed By: #### Terrie KIRKPATRICK CMP, 3 #### [facility] ([id number]) [address] [place] [address] 82435 Lymphocytes (Bld) [#/Vol] 1.9 10*3/uL Normal 1.0-3.5 [facility] Comment on above: Performed By: #### Terrie KIRKPATRICK CMP, 3040-3 #### [facility] ([id number]) [address] [place] [address] 70186 Lymphocytes/100 WBC (Bld) 30.9 % Normal [facility] Comment on above: Performed By: #### Terrie KIRKPATRICK CMP, 3039-06 #### [facility] ([id number]) [address] [place] [address] 23512 MCH (RBC) [Entitic mass] 33.1 pg Normal 27-34 [facility] Comment on above: Performed By: #### Terrie KIRKPATRICK CMP, 3039-06 #### [facility] ([id number]) [address] [place] [address] 86334 MCHC (RBC) [Mass/Vol] 33.6 g/dL Normal 32-36 [facility] Comment on above: Performed By: #### Terrie KIRKPATRICK [facility], 3039-06 #### [facility] ([id number]) [address] [place] [address] 33360 MCV (RBC) [Entitic vol] 99 fL Normal 80-100 [facility] Comment on above: Performed By: #### Terrie KIRKPATRICK [facility], 3039-06 #### [facility] ([id number]) [address] [place] [address] 25339 Monocytes (Bld) [#/Vol] 0.9 10*3/uL Normal 0-0.9 [facility] Comment on above: Performed By: #### Terrie KIRKPATRICK CMP, 3039-06 #### [facility] ([id number]) [address] [place] [address] 40801 Monocytes/100 WBC (Bld) 13.8 % Normal [facility] Comment on above: Performed By: #### Terrie KIRKPATRICK CMP, 3039-06 #### [facility] ([id number]) [address] [place] [address] 43572 Neutrophils/100 WBC (Bld) 52.2 % Normal [facility] Comment on above: Performed By: #### Terrie KIRKPATRICK CMP, 0-3 #### [facility] ([id number]) [address] [place] [address] 02517 Platelet mean volume (Bld) [Entitic vol] 9.1 fL Normal 7-12 [facility] Comment on above: Performed By: #### Terrie KIRKPATRICK CMP, 3039-3 #### [facility] ([id number]) [address] [place] [address] 45448 Platelets (Bld) [#/Vol] 291 10*3/uL Normal 150-450 [facility] Comment on above: Performed By: #### Terrie KIRKPATRICK CMP, 3039-3 #### [facility] ([id number]) [address] [place] [address] 77724 RBC COUNT 3.50 X10E12/L Low 3.80-5.20 [facility] Comment on above: Performed By: #### Terrie KIRKPATRICK CMP, 3 #### [facility] ([id number]) [address] [place] [address] 83779 WBC (Bld) [#/Vol] 6.2 10*3/uL Normal 4.0-11.0 [facility] Comment on above: Performed By: #### Terrie KIRKPATRICK CMP, 3039-3 #### [facility] ([id number]) [address] [place] [address] 96095 COMPREHENSIVE METABOLIC PANE Hema 09-18-2023 Albumin [Mass/Vol] 3.8 g/dL Normal 3.2-5.3 [facility] Comment on above: Performed By: #### Terrie BCA, CMP, 3039-3 #### [facility] ([id number]) [address] [place] [address] 91962 ALP [Catalytic activity/Vol] 64 U/L Normal 39-130 [facility] Comment on above: Performed By: #### C BCA, CMP, 3039-3 #### [facility] ([id number]) [address] [place] [address] 21322 ALT [Catalytic activity/Vol] 18 U/L Normal 0-31 [facility] Comment on above: Performed By: #### C BCA, CMP, 3039-3 #### [facility] ([id number]) [address] [place] [address] 87145 Anion gap [Moles/Vol] 7 mmol/L Normal 5-15 [facility] Comment on above: Performed By: #### C BCA, CMP, 3039-3 #### [facility] ([id number]) [address] [place] [address] 98678 AST [Catalytic activity/Vol] 19 U/L Normal 0-41 [facility] Comment on above: Performed By: #### C BCA, CMP, 3039-3 #### [facility] ([id number]) [address] [place] [address] 62365 Bilirubin [Mass/Vol] 0.6 mg/dL Normal 0.3-1.2 [facility] Comment on above: Performed By: #### C BCA, CMP, 3039-3 #### [facility] ([id number]) [address] [place] [address] 94908 Calcium [Mass/Vol] 8.4 mg/dL Low 8.5-10.5 [facility] Comment on above: Performed By: #### C BCA, CMP, 3039-3 #### [facility] ([id number]) [address] [place] [address] 44275 Chloride [Moles/Vol] 105 mmol/L Normal 98-109 [facility] Comment on above: Performed By: #### C BCA, CMP, 3039-3 #### [facility] ([id number]) [address] [place] [address] 98472 CO2 [Moles/Vol] 26 mmol/L Normal 22-32 [facility] Comment on above: Performed By: #### Terrie KIRKPATRICK CMP, 3040-3 #### [facility] ([id number]) [address] [place] [address] 02453 Creatinine [Mass/Vol] 1.03 mg/dL High 0.40-1.00 [facility] Comment on above: Result Comment: METH OD TRACEABLE TO IDMS STANDARD Performed By: #### C KEYSHAWN KIRKPATRICK, 3040-3 #### [facility] ([id number]) [address] [place] [address] 14199 GFR/1.73 sq M.predicted among non-blacks MDRD (S/P/Bld) [Vol rate/Area] 65 mL/min/{1.73_m2} Normal >59 [facility] Comment on above: Result Comment: Reported eGFR is based on the CKD-EPI 2020 equation that does not use a race coefficient. Performed By: #### C KEYSHAWN KIRKPATRICK, 3039-3 #### [facility] ([id number]) [address] [place] [address] 12267 Glucose [Mass/Vol] 99 mg/dL Normal 65-99 [facility] Comment on above: Performed By: #### Terrie KIRKPATRICK CMP, 3040-3 #### [facility] ([id number]) [address] [place] [address] 39800 Potassium [Moles/Vol] 3.4 mmol/L Low 3.5-5.0 [facility] Comment on above: Performed By: #### Terrie KIRKPATRICK CMP, 3040- #### [facility] ([id number]) [address] [place] [address] 48529 Protein [Mass/Vol] 6.9 g/dL Normal 6.0-8.0 [facility] Comment on above: Performed By: #### C KAYA CMP, 3040-3 #### [facility] ([id number]) [address] [place] [address] 58484 Sodium [Moles/Vol] 138 mmol/L Normal 134-146 [facility] Comment on above: Performed By: #### C KAYA, CMP, 3040-3 #### [facility] ([id number]) [address] [place] [address] 72061 Urea nitrogen [Mass/Vol] 10 mg/dL Normal 5-23 [facility] Comment on above: Performed By: #### C KEYSHAWN KIRKPATRICK, 3040-3 #### [facility] ([id number]) [address] [place] [address] BRAIN WO CONTon CT BRAIN WO CONT CT BRAIN WO [...] Johny Frances on 09/18/2023 9:21 PM Normal [facility] LIPASEon 09-18-2023 Lipase [Catalytic activity/Vol] 36 U/L Normal 17-40 [facility] Comment on above: Performed By: #### C KAYA, CMP, 3040-3 #### [facility] ([id number]) [address] [place] [address] 03053 URN MACROSCOPIC NURon 2023 BILIRUBIN SHADY Negative Normal NEG [facility] Comment on above: Performed By: #### N UM #### [facility] ([id number]) [address] [place] [address] 42122 BLOOD/HGB SHADY Trace Abnormal NEG [facility] Comment on above: Performed By: #### N UM #### [facility] ([id number]) [address] [place] [address] 09372 GLUCOSE SHADY Negative Normal NEG [facility] Comment on above: Performed By: #### N UM #### [facility] ([id number]) [address] [place] [address] 10474 KETONES SHADY Negative Normal NEG [facility] Comment on above: Performed By: #### N UM #### [facility] ([id number]) [address] [place] [address] 72047 LEUKOCYTE ESTERASE SHADY Negative Normal NEG [facility] Comment on above: Performed By: #### N UM #### [facility] ([id number]) [address] [place] [address] 88457 NITRITE SHADY Negative Normal NEG [facility] Comment on above: Performed By: #### N UM #### [facility] ([id number]) [address] [place] [address] 11283 PH SHADY 6.0 Normal 5.0-8.5 [facility] Comment on above: Performed By: #### N UM #### [facility] ([id number]) [address] [place] [address] 94036 PROTEIN SHADY Negative Normal NEG [facility] Comment on above: Performed By: #### N UM #### [facility] ([id number]) [address] [place] [address] 03038 SPECIFIC GRAVITY SHADY 1.010 Normal 1.003-1.035 [facility] Comment on above: Performed By: #### N UM #### [facility] ([id number]) [address] [place] [address] 56717 UROBILINOGEN SHADY 0.2 eu/dL Normal <1.1 [facility] Comment on above: Performed By: #### N UM #### [facility] ([id number]) [address] [place] [address] 17827 Consent for Treatmenton 09-03 Consent for Treatment [id number]#1.0 0TIFF Normal [facility] Heart and Vascular Office/Cl in Noteon 09-13-2023 Heart and Vascular Office/Clinic Note [...] with voice recognition artificial intelligence software, specifically [employer], [employer] and or Medication Review. Substitutions may have occurred due to the [...] Procedure/Surgical History Ca (more content not included)... [facility] Comment on above: Result Comment: Elec tronically Signed By: Deepak MOSES, Roosevelt Remy\.br\Date and Time Signed: 09/13/23 13:41 EDT Insurance Correspondenceon 0 09-13-2023 Insurance Correspondence [id number]#1.0 0TIFF [facility] Outside Labson 09-13-2023 Outside Labs [id number]#1. 00TIFF [facility] Outside Recordson 09-13-2023 Outside Records [id number]#1. 00TIFF [facility] Outside Records [id number]#1. 00TIFF [facility] Physician Orderon 09-13-2023 Physician Order [id number]#1. 00TIFF [facility] RAD - CT Reporton 08-31-20[address] RAD - CT Report [id number]#1.00 TIFF [facility] Lab Reportson 08-17-2023 Lab Reports [id number]#1.0 0TIFF Normal [facility] Urine Cytology ([facility])on 08-17-2023 Microscopic exam Cytology (U) [Interp] Diagnosis Info Invalid Interpretation Code [facility] Comment on above: Result Comment: A:Ur ine,Urine:Voided Interpretation - MicroScopic Description - Adequacy - Gross Description Site ID:A color Light Yellow fixative Alcohol Specimen designated Urine received in alcohol preservative and labeled with the patient?s name, consists of 60ml clear light yellow fluid. Electronically signed by : on: 08/17/2023 14:12:20 Performed By: #### 1 [id number] ####[facility] [address] [place] [address] Lab Reportson 08-11-2023 Lab Reports [id number]#1.00 TIFF Normal [facility] Physician Referralon 024 Physician Referral [id number]#1.0 0TIFF Normal [facility] RAD - MISCon 08-11-2023 RAD - MISC [id number]#1.0 0TIFF Normal [facility] RAD - MISC [id number]#1.0 0TIFF Normal [facility] RAD - Ultrasound Reporton RAD - Ultrasound Report [id number]#1.0 0TIFF Normal [facility] RAD - Ultrasound Report [id number]#1.0 0TIFF Normal [facility] Screenson 08-11-2023 Screens [id number]#1.0 0TIFF Normal [facility] Ambulatory Visit Summaryon 08-10-2023 Ambulatory Visit Summary SIELA CRAIG :1970 Visit Date:08/10/2023 Ambulatory Visit Instructions Your Diagnosis Microscopic hematuria Flank pain History of kidney stones Renal cyst Smoker Mixed incontinence Tests Performed CT Urogram -- Results Pending -- Please visit your patient portal for your results or contact your primary care physician. Your Care Team Attending Physician - JES ROLLE PA-C Primary Care Physician - JES CRUZ CNP Referring Physician - JES CRUZ CNP This Is Your Medications List Contact [...] the Following Appointments Follow Up with JES ROLLE PA-C, URRonald When: Where: [address] [place] [address] [phone] Medications What How Much When Instructions Unchanged [...] (more content not included)... Normal [facility] Patient Educationon 08-10-19 24 Patient Education Pulmonary [...] require a prescription. You can also purchase enpy-rsk-jxehlee medicines. Medicines may have nicotine in them [...] and encouragement. Call telephone quitlines, such as 0-760-HPPE-NOW, reach out to support groups, or work [...] (more content not included)... Normal [facility] Urine Cytology ([facility])on 0 08-10-2023 Method of Extraction Voided Normal [facility] Comment on above: Performed By: #### 1 [id number] ####[facility] [address] [place] [address] UC Number of Jars 1 Invalid Interpretation Code [facility] Comment on above: Performed By: #### 1 [id number] ####[facility] [address] [place] [address] Specimen Urine Normal [facility] Comment on above: Performed By: #### 1 [id number] ####[facility] [address] [place] [address] Type of Service Technical Only Normal [facility] Comment on above: Performed By: #### 1 [id number] ####[facility] [address] [place] [address] Complete Blood Count Auto Di ffon 06-09-2023 Basophils (Bld) [#/Vol] 0.0 10*3/uL Normal 0.0-0.2 [facility] Comment on above: Order Comment: Reaso n for Exam Other chest pain;Primary hypertension Result Comment: PERF ORMED BY: [place] [address] PATHOLOGIST [employer] PALOMO WELSEY M.D. Performed By: #### C KMB, LIPID, CMP, CK, HSCRP, BNP, THYROID SC, CBC #### [address] Basophils/100 WBC (Bld) 0.3 % Normal . [facility] Comment on above: Order Comment: Reaso n for Exam Other chest pain;Primary hypertension Performed By: #### C KMB, LIPID, CMP, CK, HSCRP, BNP, THYROID SC, CBC #### [address] Eosinophils (Bld) [#/Vol] 0.1 10*3/uL Normal 0.0-0.45 [facility] Comment on above: Order Comment: Reaso n for Exam Other chest pain;Primary hypertension Performed By: #### C KMB, LIPID, CMP, CK, HSCRP, BNP, THYROID SC, CBC #### [address] Eosinophils/100 WBC (Bld) 1.7 % Normal . [facility] Comment on above: Order Comment: Reaso n for Exam Other chest pain;Primary hypertension Performed By: #### C KMB, LIPID, CMP, CK, HSCRP, BNP, THYROID SC, CBC #### [address] Erythrocyte distribution width (RBC) [Ratio] 13.2 % Normal 11.9-15.3 [facility] Comment on above: Order Comment: Reaso n for Exam Other chest pain;Primary hypertension Performed By: #### C KMB, LIPID, CMP, CK, HSCRP, BNP, THYROID SC, CBC #### [address] Hematocrit (Bld) [Volume fraction] 41.9 % Normal 34.0-46.4 [facility] Comment on above: Order Comment: Reaso n for Exam Other chest pain;Primary hypertension Performed By: #### C KMB, LIPID, CMP, CK, HSCRP, BNP, THYROID SC, CBC #### [address] Hemoglobin (Bld) [Mass/Vol] 14.0 g/dL Normal 11.8-15.4 [facility] Comment on above: Order Comment: Reaso n for Exam Other chest pain;Primary hypertension Performed By: #### C KMB, LIPID, CMP, CK, HSCRP, BNP, THYROID SC, CBC #### [address] Lymphocytes (Bld) [#/Vol] 2.2 10*3/uL Normal 1.00-4.8 [facility] Comment on above: Order Comment: Reaso n for Exam Other chest pain;Primary hypertension Performed By: #### C KMB, LIPID, CMP, CK, HSCRP, BNP, THYROID SC, CBC #### [address] Lymphocytes/100 WBC (Bld) 30.2 % Normal . [facility] Comment on above: Order Comment: Reaso n for Exam Other chest pain;Primary hypertension Performed By: #### C KMB, LIPID, CMP, CK, HSCRP, BNP, THYROID SC, CBC #### [address] MCH (RBC) [Entitic mass] 32.8 pg Normal 24.7-34.3 [facility] Comment on above: Order Comment: Reaso n for Exam Other chest pain;Primary hypertension Performed By: #### C KMB, LIPID, CMP, CK, HSCRP, BNP, THYROID SC, CBC #### [address] MCV (RBC) [Entitic vol] 98.5 fL Normal 80-100 [facility] Comment on above: Order Comment: Reaso n for Exam Other chest pain;Primary hypertension Performed By: #### C KMB, LIPID, CMP, CK, HSCRP, BNP, THYROID SC, CBC #### [address] Mean Corpuscular HGB Conc 33.3 g/dL Normal 32.0-35.0 [facility] Comment on above: Order Comment: Reaso n for Exam Other chest pain;Primary hypertension Performed By: #### C KMB, LIPID, CMP, CK, HSCRP, BNP, THYROID SC, CBC #### [address] Monocytes (Bld) [#/Vol] 0.8 10*3/uL Normal 0.0-0.8 [facility] Comment on above: Order Comment: Reaso n for Exam Other chest pain;Primary hypertension Performed By: #### C KMB, LIPID, CMP, CK, HSCRP, BNP, THYROID SC, CBC #### [address] [place] [address] [place] Monocytes/100 WBC (Bld) 10.9 % Normal . [facility] Comment on above: Order Comment: Reaso n for Exam Other chest pain;Primary hypertension Performed By: #### C KMB, LIPID, CMP, CK, HSCRP, BNP, THYROID SC, CBC #### [facility] [address] Neutrophils (Bld) [#/Vol] 4.1 10*3/uL Normal 1.8-7.7 [facility] Comment on above: Order Comment: Reaso n for Exam Other chest pain;Primary hypertension Performed By: #### C KMB, LIPID, CMP, CK, HSCRP, BNP, THYROID SC, CBC #### [facility] [address] Neutrophils/100 WBC (Bld) 56.9 % Normal . [facility] Comment on above: Order Comment: Reaso n for Exam Other chest pain;Primary hypertension Performed By: #### C KMB, LIPID, CMP, CK, HSCRP, BNP, THYROID SC, CBC #### [facility] [address] [place] [address] [place] NRBC% 0.1 /100{WBC} Normal 0-0.5 [facility] Comment on above: Order Comment: Reaso n for Exam Other chest pain;Primary hypertension Performed By: #### C KMB, LIPID, CMP, CK, HSCRP, BNP, THYROID SC, CBC #### [place] [address] [place] Platelet mean volume (Bld) [Entitic vol] 9.0 fL Normal 6.3-10.7 [facility] Comment on above: Order Comment: Reaso n for Exam Other chest pain;Primary hypertension Performed By: #### C KMB, LIPID, CMP, CK, HSCRP, BNP, THYROID SC, CBC #### [place] [address] [place] Platelets (Bld) [#/Vol] 314 10*3/uL Normal 150-450 [facility] Comment on above: Order Comment: Reaso n for Exam Other chest pain;Primary hypertension Performed By: #### C KMB, LIPID, CMP, CK, HSCRP, BNP, THYROID SC, CBC #### [facility] [address] RBC (Bld) [#/Vol] 4.26 10*6/uL Normal 3.60-5.00 [facility] Comment on above: Order Comment: Reaso n for Exam Other chest pain;Primary hypertension Performed By: #### C KMB, LIPID, CMP, CK, HSCRP, BNP, THYROID SC, CBC #### [facility] [address] WBC (Bld) [#/Vol] 7.2 10*3/uL Normal 3.8-11.6 [facility] Comment on above: Order Comment: Reaso n for Exam Other chest pain;Primary hypertension Performed By: #### C KMB, LIPID, CMP, CK, HSCRP, BNP, THYROID SC, CBC #### [address] Comprehensive Metabolic Pane hema 06-09-2023 Albumin [Mass/Vol] 4.2 g/dL Normal 3.5-5.7 [facility] Comment on above: Order Comment: Reaso n for Exam Other chest pain;Primary hypertension Performed By: #### C KMB, LIPID, CMP, CK, HSCRP, BNP, THYROID SC, CBC #### [address] Albumin/Globulin [Mass ratio] 1.4 {ratio} Normal [facility] Comment on above: Order Comment: Reaso n for Exam Other chest pain;Primary hypertension Performed By: #### C KMB, LIPID, CMP, CK, HSCRP, BNP, THYROID SC, CBC #### [address] ALP [Catalytic activity/Vol] 87 U/L Normal 34-104 [facility] Comment on above: Order Comment: Reaso n for Exam Other chest pain;Primary hypertension Performed By: #### C KMB, LIPID, CMP, CK, HSCRP, BNP, THYROID SC, CBC #### [place] [id number] [place] ALT [Catalytic activity/Vol] 10 U/L Normal 7-52 [facility] Comment on above: Order Comment: Reaso n for Exam Other chest pain;Primary hypertension Performed By: #### C KMB, LIPID, CMP, CK, HSCRP, BNP, THYROID SC, CBC #### [facility] [address] Anion gap [Moles/Vol] 12.9 mmol/L Normal 6.0-15.0 [facility] Comment on above: Order Comment: Reaso n for Exam Other chest pain;Primary hypertension Performed By: #### C KMB, LIPID, CMP, CK, HSCRP, BNP, THYROID SC, CBC #### [facility] [address] AST [Catalytic activity/Vol] 12 U/L Low 13-39 [facility] Comment on above: Order Comment: Reaso n for Exam Other chest pain;Primary hypertension Performed By: #### C KMB, LIPID, CMP, CK, HSCRP, BNP, THYROID SC, CBC #### [facility] [address] Bilirubin [Mass/Vol] 0.2 mg/dL Low 0.3-1.0 [facility] Comment on above: Order Comment: Reaso n for Exam Other chest pain;Primary hypertension Performed By: #### C KMB, LIPID, CMP, CK, HSCRP, BNP, THYROID SC, CBC #### [facility] [address] [place] [address] Calcium [Mass/Vol] 9.5 mg/dL Normal 8.6-10.3 [facility] Comment on above: Order Comment: Reaso n for Exam Other chest pain;Primary hypertension Performed By: #### C KMB, LIPID, CMP, CK, HSCRP, BNP, THYROID SC, CBC #### [facility] [address] [place] [address] Chloride [Moles/Vol] 105 mmol/L Normal 98-107 [facility] Comment on above: Order Comment: Reaso n for Exam Other chest pain;Primary hypertension Performed By: #### C KMB, LIPID, CMP, CK, HSCRP, BNP, THYROID SC, CBC #### [facility] [address] CO2 [Moles/Vol] 25.0 mmol/L Normal 21.0-31.0 [facility] Comment on above: Order Comment: Reaso n for Exam Other chest pain;Primary hypertension Performed By: #### C KMB, LIPID, CMP, CK, HSCRP, BNP, THYROID SC, CBC #### [facility] [address] Creatinine [Mass/Vol] 0.63 mg/dL Normal 0.60-1.[address] [facility] Comment on above: Order Comment: Reaso n for Exam Other chest pain;Primary hypertension Performed By: #### C KMB, LIPID, CMP, CK, HSCRP, BNP, THYROID SC, CBC #### [address] GFR/1.73 sq M.predicted MDRD (S/P/Bld) [Vol rate/Area] mL/min/{1.73_m2} [facility] Comment on above: Order Comment: Reaso n for Exam Other chest pain;Primary hypertension Performed By: #### C KMB, LIPID, CMP, CK, HSCRP, BNP, THYROID SC, CBC #### [address] Globulin (S) [Mass/Vol] 2.9 g/dL [facility] Comment on above: Order Comment: Reaso n for Exam Other chest pain;Primary hypertension Performed By: #### C KMB, LIPID, CMP, CK, HSCRP, BNP, THYROID SC, CBC #### [address] Glucose [Mass/Vol] 90 mg/dL Normal 70-100 [facility] Comment on above: Order Comment: Reaso n for Exam Other chest pain;Primary hypertension Result Comment: [facility] Glucose Reference Range is dependent on time and content of last meal. Glucose of more than 200 mg/dL in a nonstressed, ambulatory subject supports the diagnosis of Diabetes Mellitus. ADA recommended reference range Performed By: #### C KMB, LIPID, CMP, CK, HSCRP, BNP, THYROID SC, CBC #### [address] Potassium [Moles/Vol] 3.9 mmol/L Normal 3.5-5.[address] [facility] Comment on above: Order Comment: Reaso n for Exam Other chest pain;Primary hypertension Performed By: #### C KMB, LIPID, CMP, CK, HSCRP, BNP, THYROID SC, CBC #### [address] Protein [Mass/Vol] 7.1 g/dL Normal 6.4-8.9 [facility] Comment on above: Order Comment: Reaso n for Exam Other chest pain;Primary hypertension Performed By: #### C KMB, LIPID, CMP, CK, HSCRP, BNP, THYROID SC, CBC #### [address] Sodium [Moles/Vol] 139 mmol/L Normal 136-145 [facility] Comment on above: Order Comment: Reaso n for Exam Other chest pain;Primary hypertension Performed By: #### C KMB, LIPID, CMP, CK, HSCRP, BNP, THYROID SC, CBC #### [facility] [address] [place] [address] Urea nitrogen [Mass/Vol] 14 mg/dL Normal 7-25 [facility] Comment on above: Order Comment: Reaso n for Exam Other chest pain;Primary hypertension Performed By: #### C KMB, LIPID, CMP, CK, HSCRP, BNP, THYROID SC, CBC #### [facility] [address] [place] [address] Ferritinon 06-09-2023 Ferritin [Mass/Vol] 78.9 ng/mL Normal 11.0-306.8 [facility] Comment on above: Order Comment: Reaso n for Exam Other chest pain;Primary hypertension Performed By: #### C KMB, LIPID, CMP, CK, HSCRP, BNP, THYROID SC, CBC #### [address] HIV 1/O/2 Antigen/Antibodyon 06-09-2023 HIV Screen 4th Generation Non-Reactive Normal Non Reactive [facility] Comment on above: Order Comment: Reaso n for Exam Other chest pain;Primary hypertension Result Comment: HIV Negative HIV-1/HIV-2 antibodies and HIV-1 p24 antigen were NOT detected. There is no laboratory evidence of HIV infection. Performed at: - [facility] [id number] Refinery Operator Helper: Kurtis Gallegos PhD, Phone: [phone] PERFORMED BY: [place] [address] PATHOLOGIST FORESTRY CONSERVATION WORKER PALOMO WESLEY M.D. Performed By: #### C KMB, LIPID, CMP, CK, HSCRP, BNP, THYROID SC, CBC #### [address] Iron and TIBC Profileon % Iron Saturation 22.1 % Normal 20-50 [facility] Comment on above: Order Comment: Reaso n for Exam Other chest pain;Primary hypertension Performed By: #### C KMB, LIPID, CMP, CK, HSCRP, BNP, THYROID SC, CBC #### [facility] [address] [place] [address] Iron [Mass/Vol] 93 ug/dL Normal 50-212 [facility] Comment on above: Order Comment: Reaso n for Exam Other chest pain;Primary hypertension Performed By: #### C KMB, LIPID, CMP, CK, HSCRP, BNP, THYROID SC, CBC #### [facility] [address] [place] [address] Total Iron Binding Capacity 420 ug/dL Normal 255-450 [facility] Comment on above: Order Comment: Reaso n for Exam Other chest pain;Primary hypertension Performed By: #### C KMB, LIPID, CMP, CK, HSCRP, BNP, THYROID SC, CBC #### [facility] [address] [place] [address] Transferrin [Mass/Vol] 300 mg/dL Normal 203-362 [facility] Comment on above: Order Comment: Reaso n for Exam Other chest pain;Primary hypertension Performed By: #### C KMB, LIPID, CMP, CK, HSCRP, BNP, THYROID SC, CBC #### [facility] [address] LDL Cholesterol Measuredon 0 06-09-2023 LDL Cholesterol Measured 122 mg/dL High 0-100 [facility] Comment on above: Order Comment: Reaso [...] BNP, THYROID SC, CBC #### [facility] [address] Lipid Panelon 06-09-2023 Cholesterol [Mass/Vol] 216 mg/dL High 140-200 [facility] Comment on above: Order Comment: Reaso n for Exam Other chest pain;Primary hypertension Result Comment: Chol less than 200 mg/dl low risk Chol 201-239 mg/dl borderline risk Chol 240 mg/dl and greater high risk Performed By: #### C KMB, LIPID, CMP, CK, HSCRP, BNP, THYROID SC, CBC #### [facility] [address] [place] [address] [place] Cholesterol in HDL [Mass/Vol] 69 mg/dL Normal 23-92 [facility] Comment on above: Order Comment: Reaso n for Exam Other chest pain;Primary hypertension Result Comment: HDL CHOL ATP-III CLASSIFICATION Cardiovascular Risk HDL > or equal to 60 mg/dL LOW HDL < 40 mg/dL HIGH Performed By: #### C KMB, LIPID, CMP, CK, HSCRP, BNP, THYROID SC, CBC #### [facility] [address] Cholesterol.total/Chol esterol in HDL [Mass ratio] 3.1 {ratio} Normal <5.0 [facility] Comment on above: Order Comment: Reaso n for Exam Other chest pain;Primary hypertension Performed By: #### C KMB, LIPID, CMP, CK, HSCRP, BNP, THYROID SC, CBC #### [facility] [address] LDL Cholesterol,Calculated Not performed Normal 0-100 [facility] Comment on above: Order Comment: Reaso n for Exam Other chest pain;Primary hypertension Performed By: #### C KMB, LIPID, CMP, CK, HSCRP, BNP, THYROID SC, CBC #### [facility] [address] Triglyceride w/Reflex 443 mg/dL High 0-[address] [facility] Comment on above: Order Comment: Reaso [...] BNP, THYROID SC, CBC #### [facility] [address] VLDL CHOLESTEROL 88 mg/dL Normal [facility] Comment on above: Order Comment: Reaso n for Exam Other chest pain;Primary hypertension Performed By: #### C KMB, LIPID, CMP, CK, HSCRP, BNP, THYROID SC, CBC #### [facility] [address] MicroAlb Creat Ratio,Uon Albumin DL <= 20 mg/L (U) [Mass/Vol] 2.1 mg/dL High 0.0-1.8 [facility] Comment on above: Order Comment: Reaso n for Exam Other chest pain;Primary hypertension Performed By: #### C KMB, LIPID, CMP, CK, HSCRP, BNP, THYROID SC, CBC #### [facility] [address] Creatinine, Urine (Random) 66.0 mg/dL High 11.0-20.0 [facility] Comment on above: Order Comment: Reaso n for Exam Other chest pain;Primary hypertension Performed By: #### C KMB, LIPID, CMP, CK, HSCRP, BNP, THYROID SC, CBC #### [facility] [address] Microalbumin/Creatinin e Ratio 31.0 mg/g High 0.0-30.0 [facility] Comment on above: Order Comment: Reaso n for Exam Other chest pain;Primary hypertension Result Comment: 30-3 00 mg/g indicates an increased risk for diabetic nephropathy. Greater than 300 mg/g is consistent with clinical nephropathy. (Am. J. Kidney Disease 1995, 25:107) PERFORMED BY: [place] [address] PATHOLOGIST FORESTRY CONSERVATION WORKER PALOMO WESLEY M.D. Performed By: #### C KMB, LIPID, CMP, CK, HSCRP, BNP, THYROID SC, CBC #### [address] THYROID SCREENon 06-09-2023 Free T4 [Mass/Vol] 0.68 ng/dL Normal 0.61-1.12 [facility] Comment on above: Order Comment: Reaso n for Exam Other chest pain;Primary hypertension Performed By: #### C KMB, LIPID, CMP, CK, HSCRP, BNP, THYROID SC, CBC #### [facility] [address] [place] [address] TSH Qn 2.09 m[IU]/L Normal 0.45-5.33 [facility] Comment on above: Order Comment: Reaso n for Exam Other chest pain;Primary hypertension Performed By: #### C KMB, LIPID, CMP, CK, HSCRP, BNP, THYROID SC, CBC #### [address] Toxassure, Urineon Toxassure, Urine Summary FINAL Normal . [facility] Comment on above: Order Comment: Reaso [...] test is not intended to distinguish between nqfji-4-abgqbddetcgfydfubxnh, the predominant form of THC in most herbal or marijuana-based products, and odiky-5-qxjocewopdsrzwamrthy. Gabapentin PRESENT Cyclobenzaprine PRESENT Desmethylcyclobenzaprine PRESENT Desmethylcyclobenzaprine is an expected metabolite of cyclobenzaprine. Naproxen PRESENT ===== Test Result Flag Units Ref Range Creatinine 63 mg/dL >=20 ===== Declared Medications: Medication list was not provided. ===== For clinical consultation, please call . ===== Performed at: [facility] [address] [place] [id number] Refinery Operator Helper: Ana Martin, Phone: [phone] PERFORMED BY: [address] [place] [address] PATHOLOGIST FORESTRY CONSERVATION WORKER PALOMO WESLEY M.D. Performed By: #### C KMB, LIPID, CMP, CK, HSCRP, BNP, THYROID SC, CBC #### [address] [address] [facility] Vitamin D 25 Hydroxy Totalon 06-09-2023 Vitamin D 25 Hydroxy Total 19.8 ng/mL Low 30-100 [facility] Comment on above: Order Comment: Reaso n for Exam Other chest pain;Primary hypertension Result Comment: IDRIS MIN D STATUS 25(OH)VITAMIN D RANGE (ng/mL) Deficient <20 Insufficient 20 to <30 Sufficient 30 to 100 Reference: Baron MF,Suze NC, Abdiel MAXWELL, et al. Evaluation,treatment, and prevention of vitamin D deficiency; an Endocrine Society clinical practice guideline. JCEM. 2010; 96(7):1911-30. PERFORMED BY: [facility] [address] [place] [address] PATHOLOGIST FORESTRY CONSERVATION WORKER PALOMO WESLEY M.D. Performed By: #### C KMB, LIPID, CMP, CK, HSCRP, BNP, THYROID SC, CBC #### [place] [id number] [place] [employer] 04-26-2023 Forms [id number] 01 [id number]#1. 00TIFF Normal [facility] NM Myocardial Spect Rest/Str ess 1 Dayon [...] (mCi Tc99M Cardiolite): 28.9 Normal [facility] Stress EKG Tracingson 2023 Stress EKG Tracings [id number]#1. 00TIFF Normal [facility] Consent for Treatmenton 04-05 Consent for Treatment [id number]#1.0 0TIFF Normal [facility] Heart and Vascular Office/Cl inic Noteon 04-11-2023 [...] with voice recognition artificial intelligence software, specifically [employer], MPV and or Medication Review. Substitutions may have occurred with voice recognition and artificial intelligence software. Documentation services were performed after patient or guardian consented to allow [employer] to record this visit. ANDERSON teacher selection specialist and provider reviewed before signing. ANDERSON: [...] (more content not included)... 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 Impression dictated by: Daquan Wade Jr.OShyanne04/01/2023 3:16 PM Dictation Location: [place] [address] Tech: Chloe Delcid Transcribed By: FLORES 04/01/23 1516 Dictated By: Freddy Johns Jr, DO 04/01/23 1512 Signed By: 04/01/23 1516 [facility] XR KUBon 04-01-2023 XR KUB [facility] [address] [address] XRay Report Signed Patient: Isela Craig MR#: [id number] : 1970 Acct:[id number] Age/Sex: 52 / F ADM Date: 04/01/23 Loc: Room: Type: [facility] Attending Dr: Jes Cruz WASH TANK TENDER-C Copies to: Jes Cruz Ordering Provider: Jes Cruz Date of Service: 04/01/23 XR/XR KUB: R31.9 [...] Shae Guzman M.D.04/01/2023 3:38 PM Dictation Location: [facility]- Transcribed By: [facility] 04/01/23 1538 Dictated By: Shae Guzman MD 04/01/23 1536 Signed By: 04/01/23 1538 [facility] Insurance Correspondenceon 05-24-2022 Insurance Correspondence [id number] 0TIFF [facility] Consent for Treatmenton 03-05 Consent for Treatment [id number] 0TIFF [facility] Physician Orderon 03-22-2023 Physician Order [id number] .00TIFF Normal [facility] Referrals Officeon 3 Referrals Office [id number] .00TIFF Normal [facility] COVID Quick Testingon 2022 Result Negative [facility] Shogether Other Quick Strepon 12-15-2022 S. pyogenes Org specific cx Ql (Throat) Negative [facility] Other Quick Strep [facility] Other COVID + FLU Quick Testingon 10-14-2022 SARS-CoV-2 (COVID-19) RNA AISSATOU+probe Ql (Unsp spec) Negative [facility] Other COVID + FLU Quick Testing Negative [facility] Other Quick Strepon 10-14-2022 S. pyogenes Org specific cx Ql (Throat) Negative [facility] Other Quick Strep [facility] Other Office Visit (Cardiology)on 06-24-2022 Follow-up visit Diagnoses/Problems Assessed Costochondritis (733.6) (M94.0) Palpitations (785.1) (R00.2) For the most part brief and fleeting, seem most consistent with PVC. Coronary artery disease involving [place] coronary artery of [place] heart without angina pectoris (414.01) (I25.10) Mar [...] contact the office if new symptoms arise. 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 Last week she presented to [facility] due to chest pain and dizziness. [...] and fluttering . 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 Due to blood pressure and palpitations [...] Recorded: 24Jun2022 09:32AM Heart Rate88, R Radial Dbnorbky783, RUE, Si (more content not included)... Normal [facility] Tobacco Screening.on 023 Adult depression screening assessment No [facility] 250 DO Work Phone: Tobacco use status CPHS a) Yes [facility] 250 DO Work Phone: Tobacco Screening. Yes [facility] Heart-[place] 250 DO Work Phone: Alanine aminotransferase [En zymatic activity/volume] in Serum or PlasmaOrdered By: Jes Cruz on 06-19-2022 ALT [Catalytic activity/Vol] 11 U/L 7-52 [facility] Albumin [Mass/volume] in Ser um or Plasma by Bromocresol green (BCG) dye binding methoOrdered By: Jes Cruz on 06-19-2022 Albumin BCG dye [Mass/Vol] 4.0 g/dL 3.5-5.7 [facility] Alkaline phosphatase [Enzyma tic activity/volume] in Serum or PlasmaOrdered By: Jes Cruz on 06-19-2022 ALP [Catalytic activity/Vol] 70 U/L 34-104 [facility] Aspartate aminotransferase [ Enzymatic activity/volume] in Serum or PlasmaOrdered By: Jes Cruz on 06-19-2022 AST [Catalytic activity/Vol] 11 U/L 13-39 [facility] B-Type Natriuretic Peptideon 06-19-2022 Natriuretic peptide B (Bld) [Mass/Vol] 87.0 pg/mL Normal 5-100 [facility] Comment on above: Order Comment: Reaso n for Exam Other chest pain;Primary hypertension Result Comment: PERF ORMED BY: [place] [address] PATHOLOGIST FORESTRY CONSERVATION WORKER PALOMO WESLEY M.D. Performed By: #### C KMB, LIPID, CMP, CK, HSCRP, BNP, THYROID SC, CBC #### [address] Basophils Auto (Bld) [#/Vol] Ordered By: Jes Cruz on 06-19-2022 Basophils (Bld) [#/Vol] 0.1 10*3/uL 0.0-0.2 [facility] Basophils/100 WBC Auto (Bld) Ordered By: Jes Cruz on 06-19-2022 Basophils/100 WBC (Bld) 1.2 % . [facility] Bilirubin.total [Mass/volume ] in Serum or PlasmaOrdered By: Jes Cruz on 06-19-2022 Bilirubin [Mass/Vol] 0.2 mg/dL 0.3-1.0 [facility] C reactive protein [Mass/vol ume] in Serum or Plasma by High sensitivity methodOrdered By: Jes Cruz on 06-19-2022 CRP High sensitivity method [Mass/Vol] 0.4 mg/L 0.0-0.9 [facility] Comment on above: Cardiovascular Risk Classification [...] in Ser um or PlasmaOrdered By: Jes Cruz on 06-19-2022 Calcium [Mass/Vol] 9.1 mg/dL 8.6-10.3 [facility] Carbon dioxide, total [Moles /volume] in Serum or PlasmaOrdered By: Jes Cruz on 06-19-2022 CO2 [Moles/Vol] 24.4 mmol/L 21.0-31.0 [facility] Chloride [Moles/volume] in S shanna or PlasmaOrdered By: Jes Cruz on 06-19-2022 Chloride [Moles/Vol] 108 mmol/L 98-107 [facility] Cholesterol [Mass/volume] in Serum or PlasmaOrdered By: Jes Cruz on 06-19-2022 Cholesterol [Mass/Vol] 190 mg/dL 140-200 [facility] Comment on above: Chol less than 200 m g/dl low riskChol 201-239 mg/dl borderline riskChol 240 mg/dl and greater high risk Cholesterol in LDL Calc [Mas s/Vol]Ordered By: Jes Cruz on 06-19-2022 Cholesterol in LDL [Mass/Vol] 74 mg/dL 0-100 [facility] Comment on above: LDL ATP III CLASSIFI CATIONLDL less than 100 mg/dL OptimalLDL 100-129 mg/dL Near or above optimalLDL 130-159 mg/dL Borderline highLDL 160-189 mg/dL HighLDL greater than 189 mg/dL Very high Cholesterol in VLDL Calc [Ma ss/Vol]Ordered By: Jes Cruz on 06-19-2022 Cholesterol in VLDL [Mass/Vol] 48 mg/dL [facility] Complete Blood Count Auto Di ffon 06-19-2022 Basophils (Bld) [#/Vol] 0.1 10*3/uL Normal 0.0-0.2 [facility] Comment on above: Order Comment: Reaso n for Exam Other chest pain;Primary hypertension Result Comment: PERF ORMED BY: [place] [address] PATHOLOGIST FORESTRY CONSERVATION WORKER PALOMO WESLEY M.D. Performed By: #### C KMB, LIPID, CMP, CK, HSCRP, BNP, THYROID SC, CBC #### [address] Basophils/100 WBC (Bld) 1.2 % Normal . [facility] Comment on above: Order Comment: Reaso n for Exam Other chest pain;Primary hypertension Performed By: #### C KMB, LIPID, CMP, CK, HSCRP, BNP, THYROID SC, CBC #### [place] [address] [place] Eosinophils (Bld) [#/Vol] 0.2 10*3/uL Normal 0.0-0.45 [facility] Comment on above: Order Comment: Reaso n for Exam Other chest pain;Primary hypertension Performed By: #### C KMB, LIPID, CMP, CK, HSCRP, BNP, THYROID SC, CBC #### [address] Eosinophils/100 WBC (Bld) 2.5 % Normal . [facility] Comment on above: Order Comment: Reaso n for Exam Other chest pain;Primary hypertension Performed By: #### C KMB, LIPID, CMP, CK, HSCRP, BNP, THYROID SC, CBC #### [address] Erythrocyte distribution width (RBC) [Ratio] 13.2 % Normal 11.9-15.3 [facility] Comment on above: Order Comment: Reaso n for Exam Other chest pain;Primary hypertension Performed By: #### C KMB, LIPID, CMP, CK, HSCRP, BNP, THYROID SC, CBC #### [facility] [address] Hematocrit (Bld) [Volume fraction] 39.3 % Normal 34.0-46.4 [facility] Comment on above: Order Comment: Reaso n for Exam Other chest pain;Primary hypertension Performed By: #### C KMB, LIPID, CMP, CK, HSCRP, BNP, THYROID SC, CBC #### [address] Hemoglobin (Bld) [Mass/Vol] 13.1 g/dL Normal 11.8-15.4 [facility] Comment on above: Order Comment: Reaso n for Exam Other chest pain;Primary hypertension Performed By: #### C KMB, LIPID, CMP, CK, HSCRP, BNP, THYROID SC, CBC #### [address] Lymphocytes (Bld) [#/Vol] 2.5 10*3/uL Normal 1.00-4.8 [facility] Comment on above: Order Comment: Reaso n for Exam Other chest pain;Primary hypertension Performed By: #### C KMB, LIPID, CMP, CK, HSCRP, BNP, THYROID SC, CBC #### [address] Lymphocytes/100 WBC (Bld) 30.3 % Normal . [facility] Comment on above: Order Comment: Reaso n for Exam Other chest pain;Primary hypertension Performed By: #### C KMB, LIPID, CMP, CK, HSCRP, BNP, THYROID SC, CBC #### [address] MCH (RBC) [Entitic mass] 33.2 pg Normal 24.7-34.3 [facility] Comment on above: Order Comment: Reaso n for Exam Other chest pain;Primary hypertension Performed By: #### C KMB, LIPID, CMP, CK, HSCRP, BNP, THYROID SC, CBC #### [address] MCV (RBC) [Entitic vol] 99.5 fL Normal 80-100 [facility] Comment on above: Order Comment: Reaso n for Exam Other chest pain;Primary hypertension Performed By: #### C KMB, LIPID, CMP, CK, HSCRP, BNP, THYROID SC, CBC #### [address] Mean Corpuscular HGB Conc 33.4 g/dL Normal 32.0-35.0 [facility] Comment on above: Order Comment: Reaso n for Exam Other chest pain;Primary hypertension Performed By: #### C KMB, LIPID, CMP, CK, HSCRP, BNP, THYROID SC, CBC #### [address] Monocytes (Bld) [#/Vol] 1.0 10*3/uL High 0.0-0.8 [facility] Comment on above: Order Comment: Reaso n for Exam Other chest pain;Primary hypertension Performed By: #### C KMB, LIPID, CMP, CK, HSCRP, BNP, THYROID SC, CBC #### [address] Monocytes/100 WBC (Bld) 11.6 % Normal . [facility] Comment on above: Order Comment: Reaso n for Exam Other chest pain;Primary hypertension Performed By: #### C KMB, LIPID, CMP, CK, HSCRP, BNP, THYROID SC, CBC #### [address] Neutrophils (Bld) [#/Vol] 4.5 10*3/uL Normal 1.8-7.7 [facility] Comment on above: Order Comment: Reaso n for Exam Other chest pain;Primary hypertension Performed By: #### C KMB, LIPID, CMP, CK, HSCRP, BNP, THYROID SC, CBC #### [place] [address] [place] Neutrophils/100 WBC (Bld) 54.4 % Normal . [facility] Comment on above: Order Comment: Reaso n for Exam Other chest pain;Primary hypertension Performed By: #### C KMB, LIPID, CMP, CK, HSCRP, BNP, THYROID SC, CBC #### [address] [place] [address] [place] NRBC% 0.2 /100{WBC} Normal 0-0.5 [facility] Comment on above: Order Comment: Reaso n for Exam Other chest pain;Primary hypertension Performed By: #### C KMB, LIPID, CMP, CK, HSCRP, BNP, THYROID SC, CBC #### [facility] [address] Platelet mean volume (Bld) [Entitic vol] 10.2 fL Normal 6.3-10.7 [facility] Comment on above: Order Comment: Reaso n for Exam Other chest pain;Primary hypertension Performed By: #### C KMB, LIPID, CMP, CK, HSCRP, BNP, THYROID SC, CBC #### [facility] [address] Platelets (Bld) [#/Vol] 297 10*3/uL Normal 150-450 [facility] Comment on above: Order Comment: Reaso n for Exam Other chest pain;Primary hypertension Performed By: #### C KMB, LIPID, CMP, CK, HSCRP, BNP, THYROID SC, CBC #### [facility] [address] RBC (Bld) [#/Vol] 3.95 10*6/uL Normal 3.60-5.00 [facility] Comment on above: Order Comment: Reaso n for Exam Other chest pain;Primary hypertension Performed By: #### C KMB, LIPID, CMP, CK, HSCRP, BNP, THYROID SC, CBC #### [facility] [address] WBC (Bld) [#/Vol] 8.2 10*3/uL Normal 3.8-11.6 [facility] Comment on above: Order Comment: Reaso n for Exam Other chest pain;Primary hypertension Performed By: #### C KMB, LIPID, CMP, CK, HSCRP, BNP, THYROID SC, CBC #### [facility] [address] Comprehensive Metabolic Pane hema 06-19-2022 Albumin [Mass/Vol] 4.0 g/dL Normal 3.5-5.7 [facility] Comment on above: Order Comment: Reaso n for Exam Other chest pain;Primary hypertension Performed By: #### C KMB, LIPID, CMP, CK, HSCRP, BNP, THYROID SC, CBC #### [facility] [address] Albumin/Globulin [Mass ratio] 1.7 {ratio} Normal [facility] Comment on above: Order Comment: Reaso n for Exam Other chest pain;Primary hypertension Performed By: #### C KMB, LIPID, CMP, CK, HSCRP, BNP, THYROID SC, CBC #### [facility] [address] ALP [Catalytic activity/Vol] 70 U/L Normal 34-104 [facility] Comment on above: Order Comment: Reaso n for Exam Other chest pain;Primary hypertension Performed By: #### C KMB, LIPID, CMP, CK, HSCRP, BNP, THYROID SC, CBC #### [facility] [address] ALT [Catalytic activity/Vol] 11 U/L Normal 7-52 [facility] Comment on above: Order Comment: Reaso n for Exam Other chest pain;Primary hypertension Performed By: #### C KMB, LIPID, CMP, CK, HSCRP, BNP, THYROID SC, CBC #### [address] Anion gap [Moles/Vol] 10.9 mmol/L Normal 6.0-15.0 [facility] Comment on above: Order Comment: Reaso n for Exam Other chest pain;Primary hypertension Performed By: #### C KMB, LIPID, CMP, CK, HSCRP, BNP, THYROID SC, CBC #### [facility] [address] AST [Catalytic activity/Vol] 11 U/L Low 13-39 [facility] Comment on above: Order Comment: Reaso n for Exam Other chest pain;Primary hypertension Performed By: #### C KMB, LIPID, CMP, CK, HSCRP, BNP, THYROID SC, CBC #### [facility] [address] Bilirubin [Mass/Vol] 0.2 mg/dL Low 0.3-1.0 [facility] Comment on above: Order Comment: Reaso n for Exam Other chest pain;Primary hypertension Performed By: #### C KMB, LIPID, CMP, CK, HSCRP, BNP, THYROID SC, CBC #### [facility] [address] Calcium [Mass/Vol] 9.1 mg/dL Normal 8.6-10.3 [facility] Comment on above: Order Comment: Reaso n for Exam Other chest pain;Primary hypertension Performed By: #### C KMB, LIPID, CMP, CK, HSCRP, BNP, THYROID SC, CBC #### [facility] [address] Chloride [Moles/Vol] 108 mmol/L High 98-107 [facility] Comment on above: Order Comment: Reaso n for Exam Other chest pain;Primary hypertension Performed By: #### C KMB, LIPID, CMP, CK, HSCRP, BNP, THYROID SC, CBC #### [facility] [address] CO2 [Moles/Vol] 24.4 mmol/L Normal 21.0-31.0 [facility] Comment on above: Order Comment: Reaso n for Exam Other chest pain;Primary hypertension Performed By: #### C KMB, LIPID, CMP, CK, HSCRP, BNP, THYROID SC, CBC #### [facility] [address] [place] [address] Creatinine [Mass/Vol] 0.79 mg/dL Normal 0.60-1.[address] [facility] Comment on above: Order Comment: Reaso n for Exam Other chest pain;Primary hypertension Performed By: #### C KMB, LIPID, CMP, CK, HSCRP, BNP, THYROID SC, CBC #### [facility] [address] [place] [address] GFR/1.73 sq M.predicted MDRD (S/P/Bld) [Vol rate/Area] mL/min/{1.73_m2} [facility] Comment on above: Order Comment: Reaso n for Exam Other chest pain;Primary hypertension Performed By: #### C KMB, LIPID, CMP, CK, HSCRP, BNP, THYROID SC, CBC #### [facility] [address] Globulin (S) [Mass/Vol] 2.3 g/dL Normal [facility] Comment on above: Order Comment: Reaso n for Exam Other chest pain;Primary hypertension Performed By: #### C KMB, LIPID, CMP, CK, HSCRP, BNP, THYROID SC, CBC #### [facility] [address] Glucose [Mass/Vol] 94 mg/dL Normal 74-109 [facility] Comment on above: Order Comment: Reaso n for Exam Other chest pain;Primary hypertension Result Comment: [facility] Glucose Reference Range is dependent on time and content of last meal. Glucose of more than 200 mg/dL in a nonstressed, ambulatory subject supports the diagnosis of Diabetes Mellitus. ADA recommended reference range Performed By: #### C KMB, LIPID, CMP, CK, HSCRP, BNP, THYROID SC, CBC #### [facility] [address] Potassium [Moles/Vol] 4.3 mmol/L Normal 3.5-5.[address] [facility] Comment on above: Order Comment: Reaso n for Exam Other chest pain;Primary hypertension Performed By: #### C KMB, LIPID, CMP, CK, HSCRP, BNP, THYROID SC, CBC #### [facility] [address] Protein [Mass/Vol] 6.3 g/dL Low 6.4-8.9 [facility] Comment on above: Order Comment: Reaso n for Exam Other chest pain;Primary hypertension Performed By: #### C KMB, LIPID, CMP, CK, HSCRP, BNP, THYROID SC, CBC #### [facility] [address] Sodium [Moles/Vol] 139 mmol/L Normal 136-145 [facility] Comment on above: Order Comment: Reaso n for Exam Other chest pain;Primary hypertension Performed By: #### C KMB, LIPID, CMP, CK, HSCRP, BNP, THYROID SC, CBC #### [facility] [address] [place] [address] [place] Urea nitrogen [Mass/Vol] 9 mg/dL Normal 7-25 [facility] Comment on above: Order Comment: Reaso n for Exam Other chest pain;Primary hypertension Performed By: #### C KMB, LIPID, CMP, CK, HSCRP, BNP, THYROID SC, CBC #### [facility] [address] [place] [id number] [place] Creatine Kinaseon 06-19-2022 CK [Catalytic activity/Vol] 35 U/L Normal 30 [facility] Comment on above: Order Comment: Reaso n for Exam Other chest pain Performed By: #### C KMB, LIPID, CMP, CK, HSCRP, BNP, THYROID SC, CBC #### [facility] [address] Creatine kinase [Enzymatic a ctivity/volume] in Serum or PlasmaOrdered By: Jes Cruz on 06-19-2022 CK [Catalytic activity/Vol] 35 U/L 30 [facility] Creatine kinase.MB [Mass/vol ume] in Serum or PlasmaOrdered By: Jes Cruz on 06-19-2022 CK.MB [Mass/Vol] 2.3 ng/mL 0.6-6.3 [facility] Creatinine Kinase MBon 06-19 CK.MB [Mass/Vol] 2.3 ng/mL Normal 0.6-6.3 [facility] Comment on above: Order Comment: Reaso n for Exam Other chest pain Performed By: #### C KMB, LIPID, CMP, CK, HSCRP, BNP, THYROID SC, CBC #### [facility] [address] CKMB Relative Index 6.5 % High 0.00-2.50 [facility] Comment on above: Order Comment: Reaso n for Exam Other chest pain Result Comment: PERF ORMED BY: [place] [address] PATHOLOGIST [employer] PALOMO WESLEY M.D. Performed By: #### C KMB, LIPID, CMP, CK, HSCRP, BNP, THYROID SC, CBC #### [facility] [address] Creatinine [Mass/volume] in Serum or PlasmaOrdered By: Jes Cruz on 06-19-2022 Creatinine [Mass/Vol] 0.79 mg/dL 0.60-1.[address] [facility] Eosinophils Auto (Bld) [#/Vo l]Ordered By: Jes Cruz on 06-19-2022 Eosinophils (Bld) [#/Vol] 0.2 10*3/uL 0.0-0.45 [facility] Eosinophils/100 WBC Auto (Bl d)Ordered By: Jes Cruz on 06-19-2022 Eosinophils/100 WBC (Bld) 2.5 % . [facility] Erythrocyte distribution wid th Auto (RBC) [Ratio]Ordered By: Jes Cruz on 06-19-2022 Erythrocyte distribution width (RBC) [Ratio] 13.2 % 11.9-15.3 [facility] Globulin Calc (S) [Mass/Vol] Ordered By: Jes Cruz on 06-19-2022 Globulin (S) [Mass/Vol] 2.3 g/dL [facility] Glucose [Mass/volume] in Ser um or PlasmaOrdered By: Jes Cruz on 06-19-2022 Glucose [Mass/Vol] 94 mg/dL 74-109 [facility] Comment on above: ADA recommended refe rence rangeRandom Glucose Reference Range is dependent on time and content of last meal. Glucose of more than 200 mg/dL in a nonstressed, ambulatory subject supports the diagnosis of Diabetes Mellitus. Hematocrit Auto (Bld) [Volum e fraction]Ordered By: Jes Cruz on 06-19-2022 Hematocrit (Bld) [Volume fraction] 39.3 % 34.0-46.4 [facility] Hemoglobin [Mass/volume] in BloodOrdered By: Jes Cruz on 06-19-2022 Hemoglobin (Bld) [Mass/Vol] 13.1 g/dL 11.8-15.4 [facility] High Sensitive CRPon 023 High Sensitive CRP 0.4 mg/L Normal 0.0-0.9 [facility] Comment on above: Order Comment: Reaso [...] for estimation of CVD risk. PERFORMED BY: [place] [address] PATHOLOGIST [employer] PALOMO WESLEY M.D. Performed By: #### C KMB, LIPID, CMP, CK, HSCRP, BNP, THYROID SC, CBC #### [facility] [address] [place] [address] Laboratory - Chemistry and C hemistry - challengeOrdered By: Jes Cruz on 06-19-2022 GFR/1.73 sq M.predicted MDRD (S/P/Bld) [Vol rate/Area] mL/min/{1.73_m2} [facility] Leukocytes [#/volume] correc ricardo for nucleated erythrocytes in Blood by Automated counOrdered By: Jes Cruz on 06-19-2022 WBC corrected for nucl RBC Auto (Bld) [#/Vol] 8.2 10*3/uL 3.8-11.6 [facility] Lipid Panelon 06-19-2022 Cholesterol [Mass/Vol] 190 mg/dL Normal 140-200 [facility] Comment on above: Order Comment: Reaso n for Exam Other chest pain;Primary hypertension Result Comment: Chol less than 200 mg/dl low risk Chol 201-239 mg/dl borderline risk Chol 240 mg/dl and greater high risk Performed By: #### C KMB, LIPID, CMP, CK, HSCRP, BNP, THYROID SC, CBC #### [facility] [address] [place] [address] Cholesterol in HDL [Mass/Vol] 68 mg/dL Normal 35-85 [facility] Comment on above: Order Comment: Reaso n for Exam Other chest pain;Primary hypertension Result Comment: HDL CHOL ATP-III CLASSIFICATION Cardiovascular Risk HDL > or equal to 60 mg/dL LOW HDL < 40 mg/dL HIGH Performed By: #### C KMB, LIPID, CMP, CK, HSCRP, BNP, THYROID SC, CBC #### [facility] [address] Cholesterol.total/Chol esterol in HDL [Mass ratio] 2.8 {ratio} Normal <5.0 [facility] Comment on above: Order Comment: Reaso n for Exam Other chest pain;Primary hypertension Performed By: #### C KMB, LIPID, CMP, CK, HSCRP, BNP, THYROID SC, CBC #### [facility] [address] LDL Cholesterol,Calculated 74 mg/dL Normal 0-100 [facility] Comment on above: Order Comment: Reaso n for Exam Other chest pain;Primary hypertension Result Comment: LDL ATP III CLASSIFICATION LDL less than 100 mg/dL Optimal LDL 100-129 mg/dL Near or above optimal LDL 130-159 mg/dL Borderline high LDL 160-189 mg/dL High LDL greater than 189 mg/dL Very high Performed By: #### C KMB, LIPID, CMP, CK, HSCRP, BNP, THYROID SC, CBC #### [facility] [address] [place] [id number] [facility] Triglyceride w/Reflex 241 mg/dL High 0-[address] [facility] Comment on above: Order Comment: Reaso [...] CK, HSCRP, BNP, THYROID SC, CBC #### [facility] [address] [place] [id number] [facility] VLDL CHOLESTEROL 48 mg/dL Normal [facility] Comment on above: Order Comment: Reaso n for Exam Other chest pain;Primary hypertension Performed By: #### C KMB, LIPID, CMP, CK, HSCRP, BNP, THYROID SC, CBC #### [facility] [address] Lymphocytes Auto (Bld) [#/Vo l]Ordered By: Jes Cruz on 06-19-2022 Lymphocytes (Bld) [#/Vol] 2.5 10*3/uL 1.00-4.8 [facility] Lymphocytes/100 WBC Auto (Bl d)Ordered By: Jes Cruz on 06-19-2022 Lymphocytes/100 WBC (Bld) 30.3 % . [facility] MCH Auto (RBC) [Entitic mass ]Ordered By: Jes Cruz on 06-19-2022 MCH (RBC) [Entitic mass] 33.2 pg 24.7-34.3 [facility] MCHC Auto (RBC) [Mass/Vol]Or dered By: Jes Cruz on 06-19-2022 MCHC (RBC) [Mass/Vol] 33.4 g/dL 32.0-35.[address] [facility] MCV Auto (RBC) [Entitic vol] Ordered By: Jes Cruz on 06-19-2022 MCV (RBC) [Entitic vol] 99.5 fL 80-100 [facility] Monocytes Auto (Bld) [#/Vol] Ordered By: Jes Cruz on 06-19-2022 Monocytes (Bld) [#/Vol] 1.0 10*3/uL 0.0-0.8 [facility] Monocytes/100 WBC Auto (Bld) Ordered By: Jes Cruz on 06-19-2022 Monocytes/100 WBC (Bld) 11.6 % . [facility] Natriuretic peptide B [Mass/ Vol]Ordered By: Jes Cruz on 06-19-2022 Natriuretic peptide B (Bld) [Mass/Vol] 87.0 pg/mL 5-100 [facility] Neutrophils Auto (Bld) [#/Vo l]Ordered By: Jes Cruz on 06-19-2022 Neutrophils (Bld) [#/Vol] 4.5 10*3/uL 1.8-7.7 [facility] Neutrophils/100 WBC Auto (Bl d)Ordered By: Jes Cruz on 06-19-2022 Neutrophils/100 WBC (Bld) 54.4 % . [facility] No Panel InformationOrdered By: Jes Cruz on 06-19-2022 Pharmacy Creatinine Clearance (Chem N/A [facility] Nucleated erythrocytes [Pres ence] in Blood by Automated countOrdered By: Jes Cruz on 06-19-2022 Nucleated RBC Auto Ql (Bld) 0.2 /100{WBC} 0-0.5 [facility] Platelet mean volume Auto (B ld) [Entitic vol]Ordered By: Jes Cruz on 06-19-2022 Platelet mean volume (Bld) [Entitic vol] 10.2 fL 6.3-10.7 [facility] Platelets Auto (Bld) [#/Vol] Ordered By: Jes Cruz on 06-19-2022 Platelets (Bld) [#/Vol] 297 10*3/uL 150-450 [facility] Potassium [Moles/volume] in Serum or PlasmaOrdered By: Jes Cruz on 06-19-2022 Potassium [Moles/Vol] 4.3 mmol/L 3.5-5.[address] [facility] Protein [Mass/volume] in Ser um or PlasmaOrdered By: Jes Cruz on 06-19-2022 Protein [Mass/Vol] 6.3 g/dL 6.4-8.9 [facility] RBC Auto (Bld) [#/Vol]Ordere d By: Jes Cruz on 06-19-2022 RBC (Bld) [#/Vol] 3.95 10*6/uL 3.60-5.00 [facility] Serum or plasma albumin/glob ulin mass ratioOrdered By: Jes Cruz on 06-19-2022 Albumin/Globulin [Mass ratio] 1.7 {ratio} [facility] Serum or plasma anion gap de terminationOrdered By: Jes Cruz on 06-19-2022 Anion gap [Moles/Vol] 10.9 mmol/L 6.0-15.0 [facility] Serum or plasma creatine kin ase MB (CKMB)/total creatine kinase (CK) ratio by calculaOrdered By: Jes Cruz on 06-19-2022 CK.MB Calc [Catalytic fraction] 6.5 % 0.00-2.50 [facility] Serum or plasma high density lipoprotein (HDL) cholesterol measurementOrdered By: Jes Cruz on 06-19-2022 Cholesterol in HDL [Mass/Vol] 68 mg/dL 35-85 [facility] Comment on above: HDL CHOL ATP-III CLA SSIFICATION Cardiovascular RiskHDL > or equal to 60 mg/dL LOWHDL < 40 mg/dL HIGH Serum or plasma total choles terol/high density lipoprotein (HDL) cholesterol mass ratOrdered By: Jes Cruz on 06-19-2022 Cholesterol.total/Chol esterol in HDL [Mass ratio] 2.8 {ratio} <5.0 [facility] Sodium [Moles/volume] in Ser um or PlasmaOrdered By: Jes Cruz on 06-19-2022 Sodium [Moles/Vol] 139 mmol/L 136-145 [facility] THYROID SCREENon 06-19-2022 Free T4 [Mass/Vol] 0.63 ng/dL Normal 0.61-1.12 [facility] Comment on above: Order Comment: Reaso n for Exam Other chest pain;Primary hypertension Performed By: #### C KMB, LIPID, CMP, CK, HSCRP, BNP, THYROID SC, CBC #### [facility] [address] TSH Qn 2.33 m[IU]/L Normal 0.45-5.33 [facility] Comment on above: Order Comment: Reaso n for Exam Other chest pain;Primary hypertension Result Comment: PERF ORMED BY: [facility] [address] [place] [address] PATHOLOGIST [employer] PALOMO WESLEY M.D. Performed By: #### C KMB, LIPID, CMP, CK, HSCRP, BNP, THYROID SC, CBC #### [facility] [address] [place] [address] Thyrotropin [Units/volume] i n Serum or PlasmaOrdered By: Jes Cruz on 06-19-2022 TSH Qn 2.33 m[IU]/L 0.45-5.33 [facility] Thyroxine (T4) free [Mass/vo lume] in Serum or PlasmaOrdered By: Jes Cruz on 06-19-2022 Free T4 [Mass/Vol] 0.63 ng/dL 0.61-1.12 [facility] Triglyceride [Mass/volume] i n Serum or PlasmaOrdered By: Jes Cruz on 06-19-2022 Triglyceride [Mass/Vol] 241 mg/dL 0-149 [facility] Comment on above: TRIG ATP III CLASSIF ICATIONTRIG less than 150 mg/dL NormalTRIG 150-199 mg/dL Borderline highTRIG 200-500 mg/dL High TRIG greater than 500 mg/dL Very highStandard traceable to the Center for Disease Conrtrol and Prevention (CDC) test method. Urea nitrogen [Mass/volume] in Serum or PlasmaOrdered By: Jes Cruz on 06-19-2022 Urea nitrogen [Mass/Vol] 9 mg/dL 7-25 [facility] WBC Auto (Bld) [#/Vol]Ordere d By: Jes Cruz on 06-19-2022 WBC (Bld) [#/Vol] 8.2 10*3/uL 3.8-11.6 [facility] CARDIAC BJORN ADMITon 023 CK [Catalytic activity/Vol] 54 U/L Normal 26-192 [facility] Comment on above: Performed By: #### C KEYSHAWN ORTEGA #### [facility] [address] [place], [place] [address] Dr. Howard Guthrie CK.MB [Mass/Vol] 1.70 ng/mL Normal <=3.60 [facility] Comment on above: Performed By: #### C KEYSHAWN ORTEGA #### [facility] [address] [place], [place] [address] Dr. Howard Guthrie HSTROP <4.0 Normal 4.0-51.3 [facility] Comment on above: Result Comment: CUT- OFF POINTS HAVE BEEN ESTABLISHED BASED ON THE FOURTH UNIVERSAL DEFINITIONS OF MYOCARDIAL INFARCTION. THE UPPER REFERENCE LIMIT (URL) OF TROPONIN, DEFINED THE 99TH PERCENTILE OF cTnI DISTRIBUTION IN A REFERENCE POPULATION, HAS BEEN CONFIRMED THE DECISION THRESHOLD FOR DC DIAGNOSIS. Performed By: #### C JORDAN, CMP #### [facility] [address] [place] [address] Dr. Howard Guthrie NYA 23 ng/mL Normal 9-82 [facility] Comment on above: Performed By: #### C JORDAN, CMP #### [facility] [address] [place] [address] [address] Howard Guthrie CBC AUTO DIFFon 06-17-2022 BASO # 0.1 103/ul Normal 0.0-0.1 [facility] Comment on above: Performed By: #### C BC #### [facility] [address] [place] [address] Dr. Howard Guthrie Basophils/100 WBC (Bld) 1.0 % Normal 0.2-2.0 [facility] Comment on above: Performed By: #### C BC #### [facility] [address] [place] [address] Dr. Howard Guthrie EO # 0.2 103/ul Normal 0.0-0.7 [facility] Comment on above: Performed By: #### C BC #### [facility] [address] [place] [address] Dr. Howard Guthrie Eosinophils/100 WBC (Bld) 2.9 % Normal 0.9-7.0 [facility] Comment on above: Performed By: #### C BC #### [facility] [address] [place] [address] Dr. Howard Guthrie Erythrocyte distribution width (RBC) [Ratio] 12.7 % Normal 11.0-15.0 [facility] Comment on above: Performed By: #### C BC #### [facility] [address] [place] [address] Dr. Howard Guthrie Hematocrit (Bld) [Volume fraction] 42.5 % Normal 36.0-48.0 [facility] Comment on above: Performed By: #### C BC #### [facility] [address] [place] [address] Dr. Howadr Guthrie Hemoglobin (Bld) [Mass/Vol] 14.7 g/dL Normal 12.0-16.0 [facility] Comment on above: Performed By: #### C BC #### [facility] [address] [place] [address] Dr. Howard Guthrie IG # 0.02 10e3/ul Normal 0.00-0.03 [facility] Comment on above: Performed By: #### C BC #### [facility] [address] [place] [address] Dr. Howard Guthrie IG % 0.3 % Normal 0.0-0.5 [facility] Comment on above: Performed By: #### C BC #### [facility] [address] [place] [address] Dr. Howard Guthrie LYMPH # 2.1 103/ul Normal 1.2-3.8 [facility] Comment on above: Performed By: #### C BC #### [facility] [address] [place] [address] Dr. Howard Guthrie Lymphocytes/100 WBC (Bld) 28.4 % Normal 20.5-60.0 [facility] Comment on above: Performed By: #### C BC #### [facility] [address] [place] [address] Dr. Howard Guthrie MANUAL DIFF REQ NO Normal [facility] Comment on above: Performed By: #### C BC #### [facility] [address] [place] [address] Dr. Howard Guthrie MCH (RBC) [Entitic mass] 33.1 pg Normal 26.7-34.0 [facility] Comment on above: Performed By: #### C BC #### [facility] [address] [place] [address] Dr. Howard Guthrie MCHC (RBC) [Mass/Vol] 34.6 g/dL Normal 29.9-35.2 [facility] Comment on above: Performed By: #### C BC #### [facility] [address] [place] [address] Dr. Howard Guthrie MCV (RBC) [Entitic vol] 95.7 fL Normal 81.0-99.0 [facility] Comment on above: Performed By: #### C BC #### [facility] [address] [place] [address] [address] Howard Guthrie MONO # 1.0 103/ul Critically high 0.3-0.8 [facility] Comment on above: Performed By: #### C BC #### [facility] [address] [place] [address] [address] Howard Guthrie Monocytes/100 WBC (Bld) 13.1 % Critically high 1.7-12.0 [facility] Comment on above: Performed By: #### C BC #### [facility] [address] [place] [address] Dr. Howard Guthrie NEUT # 4.0 103/ul Normal 1.4-6.5 [facility] Comment on above: Performed By: #### C BC #### [facility] [address] [place] [address] Dr. Howard Guthrie Neutrophils/100 WBC (Bld) 54.3 % Normal 43.0-75.0 [facility] Comment on above: Performed By: #### C BC #### [facility] [address] [place] [address] Dr. Howard Guthrie Platelet mean volume (Bld) [Entitic vol] 10.0 fL Normal 9.5-13.5 [facility] Comment on above: Performed By: #### C BC #### [facility] [address] [place] [address] Dr. Howard Guthrie PLT 343 103/ul Normal 150-450 [facility] Comment on above: Performed By: #### C BC #### [facility] [address] [place] [address] Dr. Howard Guthrie RBC 4.44 106/ul Normal 4.20-5.40 [facility] Comment on above: Performed By: #### C BC #### [facility] [address] [place] [address] Dr. Howard Guthrie WBC 7.4 103/ul Normal 4.0-11.0 [facility] Comment on above: Performed By: #### C BC #### [facility] [address] [place] [address] Dr. Howard Guthrie D-DIMERon 06-17-2022 D-DIMER 0.43 mg/L FEU Normal <=0.59 [facility] Comment on above: Performed By: #### D DIM #### [facility] [address] [place] [address] Dr. Howard Guthrie D-DIMER COMMENTS SEE BELOW Normal [facility] Comment on above: Result Comment: Incr eases [...] By: #### D DIM #### [facility] [address] [place] [address] Dr. Howard Guthrie ER URINE PROFILEon Bilirubin Ql (U) Negative Normal NEGATIVE [facility] Comment on above: Performed By: #### U MICRO, ERUR #### [facility] [address] [place] [address] Dr. Howard Guthrie Clarity (U) CLEAR Normal CLEAR [facility] Comment on above: Performed By: #### U MICRO, ERUR #### [facility] [address] [place] [address] Dr. Howard Guthrie Color (U) LT. YELLOW Normal YELLOW [facility] Comment on above: Performed By: #### U MICRO, ERUR #### [facility] [address] [place] [address] Dr. Howard Guthrie ERUAHD A micrscopic examination will be performed if indicated. Normal [facility] Comment on above: Performed By: #### U MICRO, ERUR #### [facility] [address] [place] [address] Dr. Howard Guthrie Glucose Ql (U) Negative Normal NEGATIVE [facility] Comment on above: Performed By: #### U MICRO, ERUR #### [facility] [address] [address] [address] Howard Guthrie Hemoglobin Ql (U) SMALL Abnormal NEGATIVE [facility] Comment on above: Performed By: #### U MICRO, ERUR #### [facility] [address] [address] [address] Howard Guthrie Ketones Ql (U) Negative Normal NEGATIVE [facility] Comment on above: Performed By: #### U MICRO, ERUR #### [facility] [address] [address] [address] Howard Guthrie LEUKOCYTES Negative Normal NEGATIVE [facility] Comment on above: Performed By: #### U MICRO, ERUR #### [facility] [address] [place] [address] Dr. Howard Guthrie Nitrite Ql (U) Negative Normal NEGATIVE [facility] Comment on above: Performed By: #### U MICRO, ERUR #### [facility] [address] [place] [address] Dr. Howard Guthrie pH (U) 7.0 [pH] Normal 5-9 [facility] Comment on above: Performed By: #### U MICRO, ERUR #### [facility] [address] [place] [address] Dr. Howard Guthrie SPEC GRAVITY 1.015 Normal 1.005-<=1.0 25 [facility] Comment on above: Performed By: #### U MICRO, ERUR #### [facility] [address] [place] [address] Dr. Howard Guthrie UA PROTEIN Negative Normal NEGATIVE/ TRACE [facility] Comment on above: Performed By: #### U MICRO, ERUR #### [facility] [address] [place] [address] Dr. Howard Guthrie UR MICRO IND INDICATED Normal [facility] Comment on above: Performed By: #### U MICRO, ERUR #### [facility] [address] [place] [address] Dr. Howard Guthrie Urobilinogen Qn (U) 0.2 {Abdiaziz'U}/dL Normal 0.2 - 1. 0 [facility] Comment on above: Performed By: #### U MICRO, ERUR #### [facility] [address] [place] [address] Dr. Howard Guthrie PROF 14(COMP METB)on 023 Albumin [Mass/Vol] 3.8 g/dL Normal 3.4-5.[address] [facility] Comment on above: Performed By: #### C MADM, CMP #### [facility] [address] [place] [address] Dr. Howard Guthrie Albumin/Globulin [Mass ratio] 1.1 {ratio} Normal [facility] Comment on above: Performed By: #### C MADM, CMP #### [facility] [address] [place] [address] Dr. Howard Guthrie ALP [Catalytic activity/Vol] 96 U/L Normal 46-116 [facility] Comment on above: Performed By: #### C MADM, CMP #### [facility] [address] [place] [address] Dr. Howard Guthrie ALT [Catalytic activity/Vol] 19 U/L Normal 14-59 [facility] Comment on above: Performed By: #### C MADM, CMP #### [facility] [address] [place] [address] Dr. Howard Guthrie Anion gap [Moles/Vol] 11.2 mmol/L Normal [facility] Comment on above: Performed By: #### C MADM, CMP #### [facility] [address] [place] [address] Dr. Howard Guthrie AST [Catalytic activity/Vol] 19 U/L Normal 15-37 [facility] Comment on above: Performed By: #### C MADM, CMP #### [facility] [address] [place] [address] Dr. Howard Guthrie Bilirubin [Mass/Vol] 0.5 mg/dL Normal 0.2-1.0 [facility] Comment on above: Performed By: #### C MADM, CMP #### [facility] [address] [address] [address] Howard Guthrie Calcium [Mass/Vol] 8.8 mg/dL Normal 8.5-10.[address] [facility] Comment on above: Performed By: #### C MADM, CMP #### [facility] [address] [address] [address] Howard Guthrie Chloride [Moles/Vol] 104 mmol/L Normal 98-107 [facility] Comment on above: Performed By: #### C MADM, CMP #### [facility] [address] [address] [address] Howard Guthrie CO2 [Moles/Vol] 24.1 mmol/L Normal 21.0-32.0 [facility] Comment on above: Performed By: #### C MADM, CMP #### [facility] [address] [place] [address] Dr. Howard Guthrie Creatinine [Mass/Vol] 0.73 mg/dL Normal 0.55-1.02 [facility] Comment on above: Performed By: #### C MADM, CMP #### [facility] [address] [place] [address] Dr. Howard Guthrie EGFR-AF WALLISIAN >60 Normal >=60 [facility] Comment on above: Performed By: #### C MADM, CMP #### [facility] [address] [place] [address] Dr. Howard Guthrie EGFR-NON AF WALLISIAN >60 Normal >=60 [facility] Comment on above: Performed By: #### C MADM, CMP #### [facility] [address] [address] [address] Howard Guthrie Globulin (S) [Mass/Vol] 3.6 g/dL Normal [facility] Comment on above: Performed By: #### C MADM, CMP #### [facility] [address] [address] [address] Howard Guthrie Glucose [Mass/Vol] 112 mg/dL Critically high 74-106 [facility] Comment on above: Performed By: #### C MADM, CMP #### [facility] [address] [address] [address] Howard Guthrie Potassium [Moles/Vol] 3.3 mmol/L Critically low 3.5-5.1 [facility] Comment on above: Performed By: #### C MADM, CMP #### [facility] [address] [address] [address] Howard Guthrie Protein [Mass/Vol] 7.4 g/dL Normal 6.4-8.2 [facility] Comment on above: Performed By: #### C MADM, CMP #### [facility] [address] [address] [address] Howard Guthrie Sodium [Moles/Vol] 136 mmol/L Normal 136-145 [facility] Comment on above: Performed By: #### C MICHAELM, CMP #### [facility] [address] [place] [address] Dr. Howard Guthrie Urea nitrogen [Mass/Vol] 6.0 mg/dL Critically low 7.0-18.0 [facility] Comment on above: Performed By: #### C MADM, CMP #### [facility] [address] [address] [address] Howard Guthrie Urea nitrogen/Creatinine [Mass ratio] 8.2 mg/mg Normal [facility] Comment on above: Performed By: #### C MICHAELM, CMP #### [facility] [address] [place] [address] Dr. Howard Guthrie TROPONIN, HIGH SENSITIVITYon 06-17-2022 HSTROP 4.6 pg/mL Normal 4.0-51.3 [facility] Comment on above: Result Comment: CUT- OFF POINTS HAVE BEEN ESTABLISHED BASED ON THE FOURTH UNIVERSAL DEFINITIONS OF MYOCARDIAL INFARCTION. THE UPPER REFERENCE LIMIT (URL) OF TROPONIN, DEFINED THE 99TH PERCENTILE OF cTnI DISTRIBUTION IN A REFERENCE POPULATION, HAS BEEN CONFIRMED THE DECISION THRESHOLD FOR DC DIAGNOSIS. Performed By: #### H STROPN #### [facility] [address] [address] [address] Howard Guthrie URINE MICROSCOPIC ONLYon BACTERIA TRACE Abnormal NONE SEEN The [facility] Comment on above: Performed By: #### U MICRO, ERUR #### [facility] [address] [address] [address] Howard Guthrie Bacteria identified Cx Nom (U) NOT INDICATED Normal [facility] Comment on above: Performed By: #### U MICRO, ERUR #### [facility] [address] [place] [address] Dr. Howard Guthrie CAST NONE SEEN Normal NONE SEEN The [facility] Comment on above: Performed By: #### U MICRO, ERUR #### [facility] [address] [place] [address] Dr. Howard Guthrie Crystals LM Nom (Urine sed) NONE SEEN Normal NONE SEEN [facility] Comment on above: Performed By: #### U MICRO, ERUR #### [facility] [address] [place] [address] Dr. Howard Guthrie Epithelial cells LM Ql (Urine sed) FEW Abnormal NONE SEEN /RARE [facility] Comment on above: Performed By: #### U MICRO, ERUR #### [facility] [address] [place] [address] Dr. Howard Guthrie MUCOUS TRACE Abnormal NONE SEEN The [facility] Comment on above: Performed By: #### U MICRO, ERUR #### [facility] [address] [place] [address] Dr. Howard Guthrie RBC 2-5 Abnormal 0-2 [facility] Comment on above: Performed By: #### U MICRO, ERUR #### [facility] [address] [place] [address] Dr. Howard Guthrie WBC NONE SEEN Normal NONE SEEN The [facility] Comment on above: Performed By: #### U MICRO, ERUR #### [facility] [address] [place] [address] Dr. Howard Guthrie XR CHEST 1 Von [...] Date: 2022-06-17 12:26 Normal [facility] Tobacco Screening.on 022 Adult depression screening assessment No [facility] 250 DO Work Phone: Tobacco use status CPHS a) Yes [facility] 250 DO Work Phone: Tobacco Screening. Yes [facility] 250 DO Work Phone: Vital Signs Date Time Vital Sign Value Performing Clinician Tonja figueroa 09-13-2023 13:06-0400 Blood Pressure Location [facility] 09-13-2023 13:06-0400 Diastolic blood pressure 85 mm[Hg] [facility] 09-13-2023 13:06-0400 Heart rate 90 /min [facility] 09-13-2023 13:06-0400 SaO2% (BldA) [Mass fraction] 99 % [facility] 09-13-2023 13:06-0400 Systolic blood pressure 125 mm[Hg] [facility] 08-10-2023 09:19-0400 Blood Pressure Location JES ROLLE [facility] 08-10-2023 09:19-0400 Body temperature 98.24 [degF] JES ROLLE [facility] 08-10-2023 09:19-0400 Diastolic blood pressure 78 mm[Hg] JES HALERY [facility] 08-10-2023 09:19-0400 Heart rate 80 /min JES ELSA [facility] 08-10-2023 09:19-0400 Respiratory rate 19 /min JESSHANELL ROLLE [facility] 08-10-2023 09:19-0400 Systolic blood pressure 136 mm[Hg] JSE ELSA [facility] 03-22-2023 13:16-0500 Blood Pressure Location [facility] 03-22-2023 13:16-0500 Diastolic blood pressure 85 mm[Hg] [facility]one [facility] 03-22-2023 13:16-0500 Heart rate 90 /min [facility] 03-22-2023 13:16-0500 SaO2% (BldA) [Mass fraction] 99 % [facility] 03-22-2023 13:16-0500 Systolic blood pressure 126 mm[Hg] [facility]one [facility] 12-15-2022 13:20-0400 Body height 165.1 cm Loretta Javier Other [facility] Other 12-15-2022 13:20-0400 Body mass index (BMI) [Ratio] 23.13 kg/m2 Loretta Javier Other [facility] Other 12-15-2022 13:20-0400 Body temperature 98.1 [degF] Loretta Javier Other [facility] Other 12-15-2022 13:20-0400 Body weight 63.05 kg Loretta Yaya Other [facility] Other 12-15-2022 13:20-0400 Diastolic blood pressure 76 mm[Hg] Loretta Javier Other [facility] Other 12-15-2022 13:20-0400 Respiratory rate 18 /min Loretta Javier Other [facility] Other 12-15-2022 13:20-0400 SaO2% (BldA) [Mass fraction] 98 % Loretta Javier Other [facility] Other 12-15-2022 13:20-0400 Systolic blood pressure 128 mm[Hg] Loretta Javier Other [facility] Other 10-14-2022 11:10-0400 Body height 165.1 cm Tanya Pangmond Other [facility] Other 10-14-2022 11:10-0400 Body mass index (BMI) [Ratio] 23.39 kg/m2 Tanya Belen Other [facility] Other 10-14-2022 11:10-0400 Body temperature 97.8 [degF] Tanya Belen Other [facility] Other 10-14-2022 11:10-0400 Body weight 63.78 kg Tanya Belen Other [facility] Other 10-14-2022 11:10-0400 Diastolic blood pressure 85 mm[Hg] Tanya Glover Other [facility] Other 10-14-2022 11:10-0400 Respiratory rate 18 /min Tanya Glover Other [facility] Other 10-14-2022 11:10-0400 SaO2% (BldA) [Mass fraction] 99 % Tanya Glover Other [facility] Other 10-14-2022 11:10-0400 Systolic blood pressure 143 mm[Hg] Tanya Glover Other [facility] Other 06-24-2022 09:32-0400 Body height 165.1 cm No PCP [facility] DO Work Phone: 06-24-2022 09:32-0400 Body mass index (BMI) [Ratio] 24.63 kg/m2 No PCP None [facility] 250 DO Work Phone: 06-24-2022 09:32-0400 Body surface area Derived from formula 1.74 m2 No PCP None [facility] 250 DO Work Phone: 06-24-2022 09:32-0400 Body weight 67.13 kg No PCP None [facility] DO Work Phone: 06-24-2022 09:32-0400 Diastolic blood pressure 82 mm[Hg] No PCP None [facility] 250 DO Work Phone: 06-24-2022 09:32-0400 Heart rate 88 /min No PCP None [facility] 250 DO Work Phone: 06-24-2022 09:32-0400 Systolic blood pressure 124 mm[Hg] No PCP None [facility] 250 DO Work Phone: 06-02-2021 15:09-0500 Diastolic blood pressure 98 mm[Hg] No PCP None [facility] 250 DO Work Phone: 06-02-2021 15:09-0500 Systolic blood pressure 142 mm[Hg] No PCP None [facility] 250 DO Work Phone: 06-02-2021 15:03-0500 Body height 165.1 cm No PCP None [facility] 250 DO Work Phone: 06-02-2021 15:03-0500 Body mass index (BMI) [Ratio] 28.29 kg/m2 No PCP None [facility] 250 DO Work Phone: 06-02-2021 15:03-0500 Body surface area Derived from formula 1.85 m2 No PCP None [facility] 250 DO Work Phone: 06-02-2021 15:03-0500 Body weight 77.11 kg No PCP None [facility] 250 DO Work Phone: 06-02-2021 15:03-0500 Diastolic blood pressure 90 mm[Hg] No PCP None [facility] 250 DO Work Phone: 06-02-2021 15:03-0500 Heart rate 92 /min No PCP None [facility] 250 DO Work Phone: 06-02-2021 15:03-0500 Systolic blood pressure 142 mm[Hg] No PCP None [facility] 250 DO Work Phone: Encounters Encounter Date Encounter Type Care Provider Facility Start: 12-13-2023 ambulatory Alexandro Pulido ty:NIVIA Reza Start: 11-26-2023 ambulatory Alexandro Pulido ty:NIVIA Reza Start: 11-01-2023 End: 11-01-2023 ambulatory WASH TANK TENDER-C Jes Cruz Work Phone: [facility] Work Phone: Start: 11-01-2023 End: 11-01-2023 Patient encounter procedure WASH TANK TENDER-C Jes Cruz Work Phone: [facility] [place] Work Phone: Start: 10-14-2023 End: 10-14-2023 ambulatory PA-C JES ROLLE Facility: [place] Start: 10-14-2023 End: 10-14-2023 Patient encounter procedure JES ROLLE [facility] Start: 10-05-2023 End: 10-05-2023 ambulatory Alexandro PARTIDA [facility] Start: 10-05-2023 End: 10-05-2023 Patient encounter procedure Alexandro PARTIDA [facility] Start: 09-18-2023 End: 09-19-2023 Emergency department patient visit [facility] Start: 09-13-2023 End: 09-13-2023 ambulatory XXXX NONE Facility[facility] Start: 09-13-2023 End: 09-13-2023 Patient encounter procedure [facility] Start: 08-10-2023 End: 08-10-2023 ambulatory PA-C JES ROLLE Facility[facility] Start: 08-10-2023 End: 08-10-2023 Lab Drop off JES ROLLE [facility] Start: 08-10-2023 End: 08-10-2023 ambulatory JES CRUZ Facility: [place] Start: 08-10-2023 End: 08-10-2023 Patient encounter procedure JES ROLLE [facility] Start: 06-09-2023 End: 06-09-2023 ambulatory Jes Cruz Facility:[facility] Start: 04-27-2023 ambulatory Alexandro PARTIDA Facility : [place] Start: 04-16-2023 End: 04-16-2023 ambulatory Ramone Garcia [facility] Start: 04-16-2023 End: 04-16-2023 Patient encounter procedure Ramone Garcia [facility] Start: 04-01-2023 End: 04-01-2023 ambulatory PHYSICIAN NO FAMILY Facility:[facility] Start: 03-22-2023 End: 03-22-2023 ambulatory JES Terrie CRUZ Facility:[facility] Start: 03-22-2023 End: 03-22-2023 Patient encounter procedure Ramone Garcia [facility] Start: 12-15-2022 End: 12-15-2022 ambulatory Loretta Javier Other [facility] Other Start: 12-15-2022 Office outpatient visit 25 minutes Loretta Javier [facility] Start: 10-14-2022 End: 10-14-2022 ambulatory Tanya Glover Other [facility] Other Start: 10-14-2022 Office outpatient visit 15 minutes Tanya Glover [facility] Start: 08-14-2022 ambulatory Ms. Jes Cruz Facility: Start: 08-14-2022 [facility]UV, Provider: Nadia Franks, Status: Pen, Time: 1:00 PM No PCP None [facility] 250 DO Work Phone: Start: 08-06-2022 Rx Renewal No PCP None [facility] 250 DO Work Phone: Start: 06-24-2022 Office outpatient visit 15 minutes No PCP None [facility] 250 DO Work Phone: Start: 06-24-2022 ambulatory Ms. Nadia Morales h Facility: Start: 06-19-2022 End: 06-19-2022 ambulatory PHYSICIAN NO [facility] Facility:[facility] Start: 06-19-2022 End: 06-19-2022 ambulatory PHYSICIAN NO [facility] Work Phone: Start: 06-19-2022 End: 06-19-2022 Departed Referred PHYSICIAN NO [facility] Start: 06-17-2022 End: 06-17-2022 ambulatory RIVER MARTE . Facility: Start: 11-10-2021 ambulatory Ms. Nadia Morales h Facility: Start: 10-27-2021 Rx Renewal No PCP None [facility] 250 DO Work Phone: Start: 06-02-2021 Office outpatient visit 25 minutes No PCP None [facility] 250 DO Work Phone: Procedures Date Procedure Procedure Detail Performing Clinician Start: 10-05-2023 Cystourethroscopy with dilation of urethral stricture JES ROLLE Cardiac catheter (ph ysical object) Ramone Garcia Cardiac catheterization No P CP None Colonoscopy Ramone Chase rson Hysterectomy Ramone Chase rson Operative procedure on foot No PCP None Procedure on back No PCP Non e Procedure on back Ramone salomon Plan of Treatment Date Care Activity Detail Author Start: 11-01-2023 Bacteria identified in Urine by Culture [facility] Start: 08-14-2022 [facility]UV, Provider: Nadia Franks, Status: Pen, Time: 1:00 PM [facility], Provider: Nadia Franks, Status: Pen, Time: 1:00 PM [facility] 250 DO Work Phone: Start: 11-10-2021 [facility]UV, Provider: Nadia Franks, Status: Pen, Time: 3:00 PM [facility], Provider: Nadia Franks, Status: Pen, Time: 3:00 PM [facility] 250 DO Work Phone: Start: 06-30-2021 [facility]UV, Provider: Nadia Franks, Status: Pen, Time: 8:00 AM [facility], Provider: Nadia Franks, Status: Pen, Time: 8:00 AM [facility] 250 DO Work Phone: Estradiol (E2) [Mass/volume] in Serum or Plasma [facility] Lutropin [Units/volu me] in Serum or Plasma [facility] Immunizations Immunization Date Immunization Notes Care Provider Jennifer lacy 03-25-2021 influenza, injectabl e, quadrivalent, preservative free No PCP None [facility] 01-05-2020 influenza, injectabl e, quadrivalent, preservative free No PCP None [facility] 250 DO Work Phone: 01-06-2019 influenza, injectabl e, quadrivalent, preservative free [facility] Payers Date Payer Category Payer Self-pay [id number] 1970 Unknown [id number] 2..[id number]. 593 1971 Unknown [id number] 2..840.1.039183.3.579.2. 356 1971 Unknown [id number] 2..840.1.174939.3.579.2. 356 1971 Unknown [id number] 2..840.1.642590.3.579.2. 356 1971 Unknown [id number] 2.16.840.1.722896.3.579.2. 6 1971 Unknown [id number] 2.16.840.1.899800.3.579.2. 6 1971 Unknown [id number] 2.16.840.1.547651.3.579.2. 1971 Unknown [id number] 2.16.840.1.214051.3.579.2. 1971 Unknown [id number] 2.16.840.1.475568.3.579.2. 1971 Unknown [id number] .840.1.376695.3.579.2 1971 Unknown [id number] 2.840.1.491360.3.579.2. 1971 Unknown [id number] 2.16840.1.211627.3.579.2 1971 Unknown [id number] 2.16.840.1.846701.3.579.2 1971 Unknown [id number] .16840.1.581016.3.579.2 1971 Unknown [id number] 2.16.840.1.791908.3.579.2. 1958 Medicaid [id number] Private Health Insurance [id number] Unknown [id number] Unknown [facility] Unknown [id number] Unknown [id number] 2.16.840.1.564503.3.579.2. 531 Unknown [id number] .16.840.1.698453.3.579.2. 531 Unknown [id number] 2.16.840.1.084263.3.579.2. 531 Social History Date Type Detail Facility Tobacco smoking stat [facility] Unknown if ever smoked [facility] Start: 1970 Sex Assigned At Female F [facility] Illicit drug use Illicit drug use -Nort h [facility] 250 DO Work Phone: Comment on above: 1 pack per daily.; Start: 05-26-2021 Tobacco smoking stat [facility] Ex-smoker (finding) [facility] Sex Assigned At [facility] Start: 03-22-2023 End: 08-10-2023 Tobacco smoking status Light tobacco smoker (finding) [facility] Tobacco smoking status Never [facility] Medical Equipment Procedure Code Equipment Code Equipment Origin al Text Equipment Identifier Dates Thoracotomy Staple line-reinforcement strip [id number] FDA Start: 03-26-2021 Thoracotomy Surgical adhesive/sealant, human-derived ()[id number] FDA Start: 03-26-2021 Goals Date Patient Goal Desired Activity /State Functional Status Date Assessment Result Facility 10-14-2023 Functional Status N/A [facility] 09-13-2023 Functional Status No [facility] 08-10-2023 Functional Status N/A [facility] 03-22-2023 Functional Status No [facility] Clinical Notes 10-14-2022 to 10-14-2023 Note Date & Type Note Facility 10-14-2023 Hospital Discharg e instructions Patient Education 10/14/2023 13:20:32 Urethral Vaginal Sling Urethral Vaginal Sling A urethral vaginal sling procedure is surgery to correct urinary incontinence. Urinary incontinence is passing urine without one's control. It is common in older women and in women who have had children. In this surgery, a strong piece of material is placed under the tube that drains the bladder (urethra). This sling is made of tension-free vaginal tape or nylon mesh. It fits under the urethra like a hammock. The sling is put in position to straighten, support, and hold the urethra in its normal position. Tell a health care provider about: Any allergies you have. All medicines you are taking, including vitamins, herbs, eye drops, creams, and uwxz-bjr-hyreixw medicines. Any problems you or family members have had with anesthetic medicines. Any blood disorders you have. Any surgeries you have had. Any medical conditions you have. Whether you are or may be . What are the risks? Generally, this is a safe procedure. However, problems may occur, including: Infection. Excessive bleeding. Allergic reactions to medicines. Damage to nearby structures or organs. Problems urinating for several days or weeks. Return of the urinary incontinence. Mesh failure. Be sure to talk with your health care provider about the options you have for sling material and the risks associated with each material. What happens before the procedure? Staying hydrated Follow instructions from your health care provider about hydration, which may include: Up to 2 hours before the procedure you may continue to drink clear liquids, such as water, clear fruit juice, black coffee, and plain tea. Eating and drinking restrictions Follow instructions from your health care provider about eating and drinking, which may include: 8 hours before the procedure stop eating heavy meals or foods, such as meat, fried foods, or fatty foods. 6 hours before the procedure stop eating light meals or foods, such as toast or cereal. 6 hours before the procedure stop drinking milk or drinks that contain milk. 2 hours before the procedure stop drinking clear liquids. Medicines Ask your health care provider about: Changing or stopping your regular medicines. This is especially important if you are taking diabetes medicines or blood thinners. Taking medicines such as aspirin and ibuprofen. These medicines can thin your blood. Do not take these medicines unless your health care provider tells you to take them. Taking hwtv-lll-sdinklg medicines, vitamins, herbs, and supplements. Surgery safety Ask your health care provider: How your surgery site will be marked. What steps will be taken to help prevent infection. These steps may include: ?Removing hair at the surgery site. ?Washing skin with a germ-killing soap. ?Taking antibiotic medicine. General instructions Do not use any products that contain nicotine or tobacco for at least 4 weeks before the procedure. These products include cigarettes, chewing tobacco, and vaping devices, such as e-cigarettes. If you need help quitting, ask your health care provider. Plan to have a responsible adult take you home from the hospital or clinic. What happens during the procedure? An IV will be inserted into one of your veins. You will be given one or both of the following: ?A medicine to make you fall asleep (general anesthetic). ?A medicine that is injected into your spine to numb the area below the injection site (spinal anesthetic). A catheter will be placed in your bladder to drain urine during the procedure. An incision will be made in your vagina and on the lower part of your abdomen. The sling material will be passed around your bladder neck and stitched (sutured) to the muscles to hold the urethra in its normal position. The incisions will then be closed with sutures. The procedure may vary among health care providers and hospitals. What happens after the procedure? Your blood pressure, heart rate, breathing rate, and blood oxygen level will be monitored until you leave the hospital or clinic. You will have a catheter in place to drain your bladder. This will stay in place until your bladder is working properly on its own. You may have a gauze packing in the vagina to prevent bleeding. This will be removed in 1 2 days. Summary A urethral vaginal sling procedure is surgery to treat urinary incontinence. In this surgery, a strong piece of material is placed under the urethra to hold it in its normal position. Follow instructions from your health care provider about eating and drinking before the procedure. After surgery, you will have a urinary catheter in place until your bladder works properly on its own again. This information is not intended to replace advice given to you by your health care provider. Make sure you discuss any questions you have with your health care provider. Document Revised: 10/25/2020 Document Reviewed: 10/25/2020 [employer] Patient Education 2022 [employer] Follow Up Care 10/05/2023 10:22:18 With:[facility] [place] Address: [address] [place] [address] Business (1) When: Unknown Comments:for procedure as scheduled [facility] [place] 10-14-2023 Note Patient Education Obstetrics and Gynecology Urethral Vaginal Sling A urethral vaginal sling procedure is surgery to correct urinary incontinence. Urinary incontinence is passing urine without one's control. It is common in older women and in women who have had children. In this surgery, a strong piece of material is placed under the tube that drains the bladder (urethra). This sling is made of tension-free vaginal tape or nylon mesh. It fits under the urethra like a hammock. The sling is put in position to straighten, support, and hold the urethra in its normal position. Tell a health care provider about: ? Any allergies you have. ? All medicines you are taking, including vitamins, herbs, eye drops, creams, and dqgm-egl-mkykghn medicines. ? Any problems you or family members have had with anesthetic medicines. ? Any blood disorders you have. ? Any surgeries you have had. ? Any medical conditions you have. ? Whether you are or may be . What are the risks? Generally, this is a safe procedure. However, problems may occur, including: ? Infection. ? Excessive bleeding. ? Allergic reactions to medicines. ? Damage to nearby structures or organs. ? Problems urinating for several days or weeks. ? Return of the urinary incontinence. ? Mesh failure. Be sure to talk with your health care provider about the options you have for sling material and the risks associated with each material. What happens before the procedure? Staying hydrated Follow instructions from your health care provider about hydration, which may include: ? Up to 2 hours before the procedure ? you may continue to drink clear liquids, such as water, clear fruit juice, black coffee, and plain tea. Eating and drinking restrictions Follow instructions from your health care provider about eating and drinking, which may include: ? 8 hours before the procedure ? stop eating heavy meals or foods, such as meat, fried foods, or fatty foods. ? 6 hours before the procedure ? stop eating light meals or foods, such as toast or cereal. ? 6 hours before the procedure ? stop drinking milk or drinks that contain milk. ? 2 hours before the procedure ? stop drinking clear liquids. Medicines Ask your health care provider about: ? Changing or stopping your regular medicines. This is especially important if you are taking diabetes medicines or blood thinners. ? Taking medicines such as aspirin and ibuprofen. These medicines can thin your blood. Do not take these medicines unless your health care provider tells you to take them. ? Taking dnti-eiz-rfpirrh medicines, vitamins, herbs, and supplements. Surgery safety Ask your health care provider: ? How your surgery site will be marked. ? What steps will be taken to help prevent infection. These steps may include: ? Removing hair at the surgery site. ? Washing skin with a germ-killing soap. ? Taking antibiotic medicine. General instructions ? Do not use any products that contain nicotine or tobacco for at least 4 weeks before the procedure. These products include cigarettes, chewing tobacco, and vaping devices, such as e-cigarettes. If you need help quitting, ask your health care provider. ? Plan to have a responsible adult take you home from the hospital or clinic. What happens during the procedure? ? An IV will be inserted into one of your veins. ? You will be given one or both of the following: ? A medicine to make you fall asleep (general anesthetic). ? A medicine that is injected into your spine to numb the area below the injection site (spinal anesthetic). ? A catheter will be placed in your bladder to drain urine during the procedure. ? An incision will be made in your vagina and on the lower part of your abdomen. ? The sling material will be passed around your bladder neck and stitched (sutured) to the muscles to hold the urethra in its normal position. ? The incisions will then be closed with sutures. The procedure may vary among health care providers and hospitals. What happens after the procedure? ? Your blood pressure, heart rate, breathing rate, and blood oxygen level will be monitored until you leave the hospital or clinic. ? You will have a catheter in place to drain your bladder. This will stay in place until your bladder is working properly on its own. ? You may have a gauze packing in the vagina to prevent bleeding. This will be removed in 1?2 days. Summary ? A urethral vaginal sling procedure is surgery to treat urinary incontinence. ? In this surgery, a strong piece of material is placed under the urethra to hold it in its normal position. ? Follow instructions from your health care provider about eating and drinking before the procedure. ? After surgery, you will have a urinary catheter in place until your bladder works properly on its own again. This information is not intended to replace (more content not included)... [facility] 08-10-2023 Evaluation + Plan note Diagnostic Tests PendingUrine Cytology ([facility]) 08/10/23 [facility] 08-10-2023 Hospital Discharg e instructions Patient [...] require a prescription. You can also purchase eljr-goc-oosqlni medicines. Medicines may have nicotine in them [...] and encouragement. Call telephone quitlines, such as 9-511-SAUU-NOW, reach out to support groups, or work [...] provider. Document Revised: 03/13/2022 Document Reviewed: 03/13/2022 [employer] Patient Education 2022 [employer]. 08/10/2023 10:11:31 Cystoscopy Cystoscopy Cystoscopy is a [...] including vitamins, herbs, eye drops, creams, and eqxo-bmt-qdlxtnu medicines. Any problems you or family members [...] provider tells you to take them. Taking gojq-gwi-wtyoxws medicines, vitamins, herbs, and supplements. Tests You [...] Follow these instructions at home: Medicines Take txwh-nwt-uegscbq and prescription medicines only as told by [...] provider. Document Revised: 12/03/2021 Document Reviewed: 11/01/2020 [employer] Patient Education 2022 [employer]. Follow Up Care 04/30/2023 12:48:57 With:JES ROLLE PA-C, URL Address: [address] [facility] [place] [id number] When: Unknown [facility] 08-10-2023 Note Chief Complaint Jes Gomes CNP referral HPI Staff Evaluation requested by Jes Cruz CNP due to Microscopic Hematuria & Renal [...] prior Dr. Moreau pt, referred by Jes Cruz CNP for microscopic hematuria and renal cyst. [...] has had dark urine. Bladder/renal US 04/01/23 [facility] - No renal mass, stone or hydro. Unremarkable bladder. KUB 04/01/23 [facility] - No obvious urinary tract calculi. AMOL 08/02/23 [facility] - No renal stones or hydro. Unremarkable bladder. KUB 08/02/23 [facility] - No urinary tract calculi. Educated [...] upon conclusion of the workup. -CTU at [facility] now -Urine sample to be sent [...] Cyst of kidney, acquired) Bladder/renal US 04/01/23 [facility] - Small L renal cyst. 06/09/23 - BUN 14. Cr 0.63. GFR >60. -Simple cysts do not require follow-up Ordered: CT Urogram 5. Smoker (F17.200: Nicotine dependence, unspec (more content not included)... [facility] Comment on above: Result Comment: Elec tronically Signed By: JES RLOLE PA-C\.br\Date and Time Signed: 08/10/23 10:56 EDT\.br\Electronically Co-Signed By: Mirela Lozoya\.br\Date and Time Co-Signed: 08/10/23 10:16 EDT 04-17-2023 Note Echocardiology Procedure Exam Date/Time Accession # Ordering Echo Transthoracic 04/16/2023 14:37 EST [id number] Ramone Garcia MD CPT code [id number] Reason for Exam (Echo Transthoracic Complete) I25.10;CAD Coronary artery disease Report Version: 1 Study ID: [id number] [facility] [address] [place] [address] Adult Echocardiogram Report Name: ISELA CRAIG Study Date: 04/16/2023, 1: 10 PM Patient Location: [facility] : 1970 (MM/DD/YYYY) Gender: Female Age: 52 [...] Signed by: Ramone Garcia MD Transcribed by: [facility] Technologist: GARRY Bravo [facility] 12-15-2022 Evaluation note Encounter Date [...] understanding and is agreeable to treatment plan [facility] Other 07-12-2023 Evaluation note* Encounter Date Diagnosis [...] - Z20.822) Oct, Bronchitis (ICD-10 - J40) [facility] Other Evaluation + Plan note Future Appointments Appointment Date:05/13/2023 03:45:00 PM Scheduled Provider:Ramone Garcia MD Location:[facility]iology Clinic Appointment Type:Cardiology Follow Up (FT) Future Scheduled Tests Radiology* NM Myocardial Spect Rest/Stress 1 Day 03/22/23 * Echo Transthoracic Complete 03/22/23 [facility] + Plan note Future Appointments Appointment Date:05/13/2023 03:45:00 PM Scheduled Provider:Ramone Garcia MD Location:[facility]Cardiology Clinic App[facility] App[facility]ments Appointment Date:09/27/2023 09:30:00 AM Scheduled Provider: Location:[facility] Appointment Type:Urology CALL PAT FT Appointment Date:10/05/2023 09:00:00 AM Scheduled Provider: Location:[facility] Appointment Type:Urology FT Appointment Date:12/13/2023 01:00:00 PM Scheduled Provider:Roosevelt Sotelo PA-C Location:.Cardiology Clinic Appointment Type:Cardiology Follow Up (FT) Future Scheduled Tests Radiology* US Carotid Duplex Bilateral 09/14/23 [facility] + Plan note Future Appointments Appointment Date:10/14/2023 12:40:00 PM Scheduled Provider:JES ROLLE PA-C Location:[facility] Appointment Type:URO Complex Office Visit Appointment Date:12/13/2023 01:00:00 PM Scheduled Provider:Roosevelt Sotelo PA-C [facility]:Cardiology Follow Up (FT) Future Scheduled Tests Radiology* US Carotid Duplex Bilateral 09/14/23 [facility] + Plan note Future Appointments Appointment Date:11/26/2023 09:30:00 AM Scheduled Provider: Location:[facility] Appointment Type:URO Nurse Visit Appointment Date:12/13/2023 01:00:00 PM Scheduled Provider:Roosevelt Sotelo PA-C [facility] Appointment Type:Cardiology Follow Up (FT) Appointment Date:12/13/2023 01:45:00 PM Scheduled Provider:Alexandro PARTIDA MD Location:[facility] Appointment Type:URO Office Visit Future Scheduled Tests Radiology* US Carotid Duplex Bilateral 09/14/23 [facility] evaluation noteNo assessment information available [facility] Work Phone: History general Narrative - Reported* Type Description Date Surgical History hysterectomy Surgical History [facility] Other History of Present illness Narrative* The [...] medication regimen. She denies medication side effects. [facility] [address] DO Work Phone: Hospital course Narrative No data available [facility] this section [facility] No data available [facility] this section [facility] No data available for this section [facility] Assessments No Assessments Information Available Family [...] of hepatic ci rrhosis: Father(V18.59, Z83.79) Status:Active Relationship Condition Age at Onset Recorded Date/T kari father Hepatic cirrhosis Unknown Posttraumatic stress disorder Unknown mother Myocardial infarction Unknown father Unknown Hypertension Unknown mother Heart disease Unknown Unknown Chief Complaint * I am doing ok * ISELA CRAIG is being seen for follow-up of a hospitalization for dyspnea. * Patient was recently hospitalized at [facility]. The patient was seen in Cardiology consult with subsequent cardiovascular management by [facility]. Hospitalization records have been reviewed. * Reason for Cardiology Consultation: chest pain (presented with spontaneous PTX) * Consulting Dry Roller: Dr. Lopez * Cardiovascular testing: cardiac cath [...] evaluation. * Last week she presented to [facility] due to chest pain and dizziness. [...] and fluttering . 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 Due to blood pressure and palpitations will resume prior dose of diltiazem, symptoms have been quiescent with that treatment. She is in agreement to proceed with treatment plan as outlined. Chief Complaint and Reason for Visit Chief Complaint Other chest pain Oth er chest pain;Primary hyperten Chief Complaint R23.2-pass Advance Directives Advance Directive Response Recorded Date/ Time Advance Directives No January 05, 2019 3:54pm Summary Purpose Additional Source Comments Care Teams (unrecognized sec tion and content) Team Status: Active Member Role Status Dates PHYSICIAN NO FAMILY Primary Care Provider Active Team Status: Inactive Member Role Status Dates PHYSICIAN NO FAMILY Primary Care Provider Active Jes Cruz NP-C Attending Provide r Active Team Status: Active Member Role Status Dates Jes Cruz NP-Terrie Primary Care Prov ider Active Team Status: Inactive Member Role Status Dates Jes Cruz WASH TANK TENDER-C Primary Care Provider, Attending Provider Active Start: November 01, 2023 End: November 01, 2023 Goals (unrecognized section and content) Goals may be documented in a n alternate sectionNo InformationNo Information No data available for this section No data available for this section No data available for this section No data available for this section No data available for this section No data available for this section No data available for this section No data available for this sectionGoals may be documented in an alternate section INFORMATION SOURCE (unrecogn ized section and content) DATE CREATED AUTHOR 06/24/2022 [facility] DATE CREATED AUTHOR AUTHOR'S ORGANIZ ATION 07/29/2022 [facility] DATE CREATED AUTHOR AUTHOR'S ORGANIZ ATION 08/16/2022 [facility] DATE CREATED AUTHOR AUTHOR'S ORGANIZ ATION 06/18/2023 [facility] DATE CREATED AUTHOR AUTHOR'S ORGANIZ ATION 09/19/2023 [facility] DATE CREATED AUTHOR AUTHOR'S ORGANIZ ATION 10/19/2023 [facility] DATE CREATED AUTHOR AUTHOR'S ORGANIZ ATION 10/21/2023 [facility] REASON FOR VISIT (unrecogniz ed section and [...] BE BASED ON THE PRIMARY CLINICAL RECORDS. [facility]. provides no warranty or guarantee of the accuracy or completeness of information in this document.
== END 2023-11-02 14:41 | disposition home or self-care (01) ==
LOC: EC 14:40
PROVIDERS: Visit Provider Podiatrist Foot & Ankle Surgery
DX: M20.12 Hallux valgus (acquired), left foot (principal); Z98.890 Other specified postprocedural states
CPT/HCPCS: 73630

== ENCOUNTER 2023-11-15 16:53 | Outpatient (OUT) | payer OTHER, SELFPAY ==
--- OUTSIDE RECORDS SUMMARY | 2023-11-15 17:01 | XMS_ITS | CCD ---
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 Nadia Lainez Referring Curtis Cruz, MsShyanne Kaur Primary Care Unavailable [place], Ms. Nadia Lainez Attending Curtis Cruz, MsShyanne BoudreauxJes Natasha Primary Care Unavailable [place], Ms. Nadia Lainez Attending Tanya Colby Unavailable Loretta Javier Unavailable JES CRUZ Primary Care Physician [phone] CUATE KELLY Attending Unavailable JES CRUZ Primary Care Unavailab CUATE Olson Attending Unavailable CUATE KELLY Referring Unavailable JES CRUZ Primary Care Unavailab Jacquelyn Azul Primary Care Physician JES ROLLE Attending Unavailable LEIGHANN Cruz Primary Care Provider LEIGHANN Cruz Attending Pr ovider Jes Cruz Primary Care U Jes Belcher Attending U Jes Belcher Admitting U Jes Belcher Admitting U chacortaJes Baez Primary Care U bharti Jes Cruz Attending U bharti PRETTY FAMILY, PHYSICIAN Primary Care Unavailable Jes Cruz Admitting U bharti Jes Cruz Attending U Alexandro Magana Attending JOSUÉ Fall Attending MAKENZIE Costa Referring Unava ilJOSUÉ Lrason Attending Ramone Kasper Admitting Unavaila Ramone Hart Attending Theodorea MAKENZIE Ramesh Referring Unava ilJOSUÉ Winston Attending Unavailable NONE, XXXX Referring Alexandro Vee Admitting Unavailable Alexandro PARTIDA Attending Alexandro Vee Referring Unavailable Ramone Garcia Admitting Unavaila Ramone Hart Attending Ramone Xiao Referring Unavaila Ramone Hart Consulting MD Ramone Xiao Consulting Ramone Starr Consulting Unavaila JOSUÉ Pop Admitting UnavailJOSUÉ Granados Attending Alexandro Sibley Attending Alexandro Vee Attending Unavailable Unavailable Unavailable Unavailable Allergies Allergy Classification Reported Allergen(s) Allergy Type Date of Onset Reaction(s) Facility Opioid Agonists (1 source) Codeine; Translations: [codeine] Drug Allergy Eruption of skin present [facility] (19 sources) Codeine; Translations: [codeine] Drug Allergy 09-03-2012 hives, Eruption of skin present [facility] Medications Current Medications Medication Drug Class(es) [...] Daily, # 30 tab(s), Refills(s) 3, Pharmacy: [facility] 1155, 164, cm, 03/22/23 13:24:00 [...] Not-Takin g clonazePAM 0.5 mg oral tablet (7 sources) [...] 2019 12:00am March 24, 2021 4:09pm Motrin Primo-Nat gracia 24 hr isosorbide mononitrate 30 mg extended release oral tablet (16 sources) Nitrate Vasodilator Start: 03-22-2023 take 1 tablet by mouth once daily in the morning isosorbide mononitrate 30 mg ER Tab 30 mg = 1 tab(s), Oral, qAM, # 30 tab(s), Refills(s) 3, Pharmacy: [facility] 1155, 164, cm, 03/22/23 13:24:00 [...] 30 Refills: 1 Ordered: 02-Jun-2021 Migel Peter APRSAMIRNadia Start : 02-Jun-2021 Active Start: 01-09-2019 End: [...] Drug Class(es) Dates Sig (Normalized) Sig (Original) [id number] 200 actuat albuterol 0.09 mg/actuat metered dose [...] procedure, # 2 tab(s), Refills(s) 0, Pharmacy: [facility] 1155, 164, cm, 08/10/23 9:37:00 EDT, [...] Start: 06-02-2021 take 1 capsule by mo [facility] once daily dilTIAZem HCl ER Coated Beads [...] daily Quantity: 30 Refills: 0 Ordered: 13-Aug-2022 Migel Peter APRNNadia CHRISTY Start : 24-Jun-2022 Active lisinopril 10 mg [...] sources) Coronary atherosclerosis; Translations: [Coronary atherosclerosis of [place] coronary artery] 04-03-2021 Chronic Disorders of lipid metabolism (6 sources) Mixed hyperlipidemia; Translations: [Mixed hyperlipidemia] Onset: 11-01-2023 Chronic Essential hypertension (13 sources) Benign hypertension; Translations: [Benign essential hypertension] Onset: 11-01-2023 03-18-2023 Chronic Genitourinary symptoms and ill-defined conditions [...] Onset: 06-09-2023 01-06-2019 Chronic Nonspecific chest pain (6 sources) Chest wall pain; Translations: [Other chest pain] Onset: 06-17-2022 05-26-2021 Episodic Nutritional deficiencies (1 source) Vitamin D deficiency, unspecified; Translations: [Vitamin D deficiency, unspecified] Onset: 11-01-2023 Chronic Nutritional deficiencies (1 source) Iron deficiency; Translations: [Iron deficiency] Onset: 11-01-2023 Episodic Other bone disease and musculoskeletal deformities [...] unclassified (1 source) Hallucinations Onset: 09-18-2023 Episodic Residual codes; unclassified (1 source) Flushing; Translations: [Flushing] Onset: 11-01-2023 Episodic Spondylosis; intervertebral disc disorders; other back [...] Chronic obstructive pulmonary disease and bronchiectasis 03-18-2023 Other aftercare (1 source) 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; Translations: [Other penitentiary (current) drug therapy] Onset: 06-09-2023 Episodic Unclassified (1 source) Contact with and (suspected) exposure to covid-19 Z20.822 Unclassified (7 sources) Bipolar (qualifier value) 03-18-2023 Results Test Name Value Interpretation Reference Range Facility Alanine aminotransferase [En zymatic activity/volume] in Serum or PlasmaOrdered By: Jes Cruz on 11-01-2023 ALT [Catalytic activity/Vol] 17 U/L Normal 7-52 [facility] Comment on above: Order Comment: Reaso n for Exam Primary hypertension Reason for Exam Low iron Reason for Exam Primary hypertension;Hypertriglyceridemia Reason for Exam Hot flashes Reason for Exam Vitamin D deficiency Performed By: #### C BC, UA, T3F, CMP, FE and TIBC, SHAMA, LIPID, [id number], TSH3, FSH, [id number], CUU #### [facility] [address] [place] [address] [place] #### LH, ESTRADIOL #### [facility] , Albumin [Mass/volume] in Ser um or Plasma by Bromocresol green (BCG) dye binding methoOrdered By: Jes Cruz on 11-01-2023 Albumin BCG dye [Mass/Vol] 4.3 g/dL 3.5-5.7 [facility] Alkaline phosphatase [Enzyma tic activity/volume] in Serum or PlasmaOrdered By: Jes Cruz on 11-01-2023 ALP [Catalytic activity/Vol] 87 U/L Normal 34-104 [facility] Comment on above: Order Comment: Reaso n for Exam Primary hypertension Reason for Exam Low iron Reason for Exam Primary hypertension;Hypertriglyceridemia Reason for Exam Hot flashes Reason for Exam Vitamin D deficiency Performed By: #### C BC, UA, T3F, CMP, FE and TIBC, SHAMA, LIPID, [id number], TSH3, FSH, [id number], CUU #### [facility] [address] [place] [address] [place] #### LH, ESTRADIOL #### [facility] , Aspartate aminotransferase [ Enzymatic activity/volume] in Serum or PlasmaOrdered By: Jes Cruz on 11-01-2023 AST [Catalytic activity/Vol] 13 U/L Normal 13-39 [facility] Comment on above: Order Comment: Reaso n for Exam Primary hypertension Reason for Exam Low iron Reason for Exam Primary hypertension;Hypertriglyceridemia Reason for Exam Hot flashes Reason for Exam Vitamin D deficiency Performed By: #### C BC, UA, T3F, CMP, FE and TIBC, SHAMA, LIPID, [id number], TSH3, FSH, [id number], CUU #### [address] #### LH, ESTRADIOL #### [facility] , Automated basophil %Ordered By: Jes Cruz on 11-01-2023 Basophils/100 WBC (Bld) 1.1 % Normal . [facility] Comment on above: Order Comment: Reaso n for Exam Primary hypertension Performed By: #### C BC, UA, T3F, CMP, FE and TIBC, SHAMA, LIPID, [id number], TSH3, FSH, [id number], CUU #### [facility] [address] [place] [address] #### LH, ESTRADIOL #### [facility] , Automated basophil countOrde red By: Jes Cruz on 11-01-2023 Basophils (Bld) [#/Vol] 0.1 10*3/uL Normal 0.0-0.2 [facility] Comment on above: Order Comment: Reaso n for Exam Primary hypertension Result Comment: PERF ORMED BY: [place] [address] PATHOLOGIST EFFICIENCY MINER PALOMO WESLEY M.D. Performed By: #### C BC, UA, T3F, CMP, FE and TIBC, SHAMA, LIPID, [id number], TSH3, FSH, [id number], CUU #### [facility] [address] [place] [address] #### LH, ESTRADIOL #### [facility] , Automated blood monocyte cou ntOrdered By: Jes Cruz on 11-01-2023 Monocytes (Bld) [#/Vol] 0.8 10*3/uL Normal 0.0-0.8 [facility] Comment on above: Order Comment: Reaso n for Exam Primary hypertension Performed By: #### C BC, UA, T3F, CMP, FE and TIBC, SHAMA, LIPID, [id number], TSH3, FSH, [id number], CUU #### [facility] [address] [place] [address] #### LH, ESTRADIOL #### [facility] , Automated eosinophil %Ordere d By: Jes Cruz on 11-01-2023 Eosinophils/100 WBC (Bld) 1.5 % Normal . [facility] Comment on above: Order Comment: Reaso n for Exam Primary hypertension Performed By: #### C BC, UA, T3F, CMP, FE and TIBC, SHAMA, LIPID, [id number], TSH3, FSH, [id number], CUU #### [address] #### LH, ESTRADIOL #### [facility] , Automated eosinophil countOr dered By: Jes Cruz on 11-01-2023 Eosinophils (Bld) [#/Vol] 0.1 10*3/uL Normal 0.0-0.45 [facility] Comment on above: Order Comment: Reaso n for Exam Primary hypertension Performed By: #### C BC, UA, T3F, CMP, FE and TIBC, SHAMA, LIPID, [id number], TSH3, FSH, [id number], CUU #### [facility] [address] [place] [address] [place] #### LH, ESTRADIOL #### [facility] , Automated monocyte %Ordered By: Jes Cruz on 11-01-2023 Monocytes/100 WBC (Bld) 10.8 % Normal . [facility] Comment on above: Order Comment: Reaso n for Exam Primary hypertension Performed By: #### C BC, UA, T3F, CMP, FE and TIBC, SHAAM, LIPID, [id number], TSH3, FSH, [id number], CUU #### [facility] [address] [place] [address] [place] #### LH, ESTRADIOL #### [facility] , Automated neutrophil %Ordere d By: Jes Cruz on 11-01-2023 Neutrophils/100 WBC (Bld) 58.6 % Normal . [facility] Comment on above: Order Comment: Reaso n for Exam Primary hypertension Performed By: #### C BC, UA, T3F, CMP, FE and TIBC, SHAMA, LIPID, [id number], TSH3, FSH, [id number], CUU #### [facility] [address] [place] [address] #### LH, ESTRADIOL #### [facility] , Bilirubin Test strip Ql (U)O rdered By: Jes Tamezson on 11-01-2023 Bilirubin Ql (U) Negative Negative [facility] Bilirubin.total [Mass/volume ] in Serum or PlasmaOrdered By: Jes Cruz on 11-01-2023 Bilirubin [Mass/Vol] 0.4 mg/dL Normal 0.3-1.0 [facility] Comment on above: Order Comment: Reaso n for Exam Primary hypertension Reason for Exam Low iron Reason for Exam Primary hypertension;Hypertriglyceridemia Reason for Exam Hot flashes Reason for Exam Vitamin D deficiency Performed By: #### C BC, UA, T3F, CMP, FE and TIBC, SHAMA, LIPID, [id number], TSH3, FSH, [id number], CUU #### [facility] [address] [place] [address] [place] #### LH, ESTRADIOL #### [facility] , Calcium [Mass/volume] in Ser um or PlasmaOrdered By: Jes Cruz on 11-01-2023 Calcium [Mass/Vol] 9.4 mg/dL Normal 8.6-10.3 [facility] Comment on above: Order Comment: Reaso n for Exam Primary hypertension Reason for Exam Low iron Reason for Exam Primary hypertension;Hypertriglyceridemia Reason for Exam Hot flashes Reason for Exam Vitamin D deficiency Performed By: #### C BC, UA, T3F, CMP, FE and TIBC, SHAMA, LIPID, [id number], TSH3, FSH, [id number], CUU #### [facility] [address] [place] [address] [place] #### LH, ESTRADIOL #### [facility] , Carbon dioxide, total [Moles /volume] in Serum or PlasmaOrdered By: Jes Anthony on 11-01-2023 CO2 [Moles/Vol] 28.5 mmol/L Normal 21.0-31.0 [facility] Comment on above: Order Comment: Reaso n for Exam Primary hypertension Reason for Exam Low iron Reason for Exam Primary hypertension;Hypertriglyceridemia Reason for Exam Hot flashes Reason for Exam Vitamin D deficiency Performed By: #### C BC, UA, T3F, CMP, FE and TIBC, SHAMA, LIPID, [id number], TSH3, FSH, [id number], CUU #### [facility] [address] [place] [address] [place] #### LH, ESTRADIOL #### [facility] , Chloride [Moles/volume] in S shanna or PlasmaOrdered By: Jes Cruz on 11-01-2023 Chloride [Moles/Vol] 105 mmol/L Normal 98-107 [facility] Comment on above: Order Comment: Reaso n for Exam Primary hypertension Reason for Exam Low iron Reason for Exam Primary hypertension;Hypertriglyceridemia Reason for Exam Hot flashes Reason for Exam Vitamin D deficiency Performed By: #### C BC, UA, T3F, CMP, FE and TIBC, SHAMA, LIPID, [id number], TSH3, FSH, [id number], CUU #### [facility] [address] [place] [address] [place] #### LH, ESTRADIOL #### [facility] , Cholesterol [Mass/volume] in Serum or PlasmaOrdered By: Jes Cruz on 11-01-2023 Cholesterol [Mass/Vol] 285 mg/dL High 140-200 [facility] Comment on above: Chol less than 200 m g/dl low riskChol 201-239 mg/dl borderline riskChol 240 mg/dl and greater high risk Order Comment: Reaso n for Exam Primary hypertension Reason for Exam Low iron Reason for Exam Primary hypertension;Hypertriglyceridemia Reason for Exam Hot flashes Reason for Exam Vitamin D deficiency Result Comment: Chol less than 200 mg/dl low risk Chol 201-239 mg/dl borderline risk Chol 240 mg/dl and greater high risk Performed By: #### C BC, UA, T3F, CMP, FE and TIBC, SHAMA, LIPID, [id number], TSH3, FSH, [id number], CUU #### [facility] [address] [place] [address] [place] #### LH, ESTRADIOL #### [facility] , Cholesterol in LDL Calc [Mas s/Vol]Ordered By: Jes Cruz on 11-01-2023 Cholesterol in LDL [Mass/Vol] 198 mg/dL High 0-100 [facility] Comment on above: LDL ATP III CLASSIFI CATIONLDL less than 100 mg/dL OptimalLDL 100-129 mg/dL Near or above optimalLDL 130-159 mg/dL Borderline highLDL 160-189 mg/dL HighLDL greater than 189 mg/dL Very high Cholesterol in VLDL Calc [Ma ss/Vol]Ordered By: Jes Cruz on 11-01-2023 Cholesterol in VLDL [Mass/Vol] 29 mg/dL [facility] Color of Urine by AutoOrdere d By: Jes Cruz on 11-01-2023 Color (U) Light-yellow Normal Yellow [facility] Comment on above: Order Comment: Reaso n for Exam Microscopic hematuria Name Collection Type:: Voided Performed By: #### C BC, UA, T3F, CMP, FE and TIBC, SHAMA, LIPID, [id number], TSH3, FSH, [id number], CUU #### [facility] [address] [place] [address] [place] #### LH, ESTRADIOL #### [facility] , Complete Blood Count Auto Di ffon 11-01-2023 Mean Corpuscular HGB Conc 33.6 g/dL Normal 32.0-35.0 [facility] Comment on above: Order Comment: Reaso n for Exam Primary hypertension Performed By: #### C BC, UA, T3F, CMP, FE and TIBC, SHAMA, LIPID, [id number], TSH3, FSH, [id number], CUU #### [facility] [address] [place] [address] [place] #### LH, ESTRADIOL #### [facility] , NRBC% 0.1 /100{WBC} Normal 0-0.5 [facility] Comment on above: Order Comment: Reaso n for Exam Primary hypertension Performed By: #### C BC, UA, T3F, CMP, FE and TIBC, SHAMA, LIPID, [id number], TSH3, FSH, [id number], CUU #### [place] [address] [place] #### LH, ESTRADIOL #### [facility] , Comprehensive Metabolic Pane hema 11-01-2023 Albumin [Mass/Vol] 4.3 g/dL Normal 3.5-5.7 [facility] Comment on above: Order Comment: Reaso n for Exam Primary hypertension Reason for Exam Low iron Reason for Exam Primary hypertension;Hypertriglyceridemia Reason for Exam Hot flashes Reason for Exam Vitamin D deficiency Performed By: #### C BC, UA, T3F, CMP, FE and TIBC, SHAMA, LIPID, [id number], TSH3, FSH, [id number], CUU #### [place] [address] [place] #### LH, ESTRADIOL #### [facility] , GFR/1.73 sq M.predicted MDRD (S/P/Bld) [Vol rate/Area] mL/min/{1.73_m2} Normal [facility] Comment on above: Order Comment: Reaso n for Exam Primary hypertension Reason for Exam Low iron Reason for Exam Primary hypertension;Hypertriglyceridemia Reason for Exam Hot flashes Reason for Exam Vitamin D deficiency Performed By: #### C BC, UA, T3F, CMP, FE and TIBC, SHAMA, LIPID, [id number], TSH3, FSH, [id number], CUU #### [place] [address] [place] #### LH, ESTRADIOL #### [facility] , Creatinine [Mass/volume] in Serum or PlasmaOrdered By: Jes Cruz on 11-01-2023 Creatinine [Mass/Vol] 0.75 mg/dL Normal 0.60-1.20 [facility] Comment on above: Order Comment: Reaso n for Exam Primary hypertension Reason for Exam Low iron Reason for Exam Primary hypertension;Hypertriglyceridemia Reason for Exam Hot flashes Reason for Exam Vitamin D deficiency Performed By: #### C BC, UA, T3F, CMP, FE and TIBC, SHAMA, LIPID, [id number], TSH3, FSH, [id number], CUU #### [facility] [address] [place] [address] [place] #### LH, ESTRADIOL #### [facility] , Erythrocyte distribution wid th [Ratio] by Automated countOrdered By: Jes Cruz on 11-01-2023 Erythrocyte distribution width (RBC) [Ratio] 13.1 % Normal 11.9-15.3 [facility] Comment on above: Order Comment: Reaso n for Exam Primary hypertension Performed By: #### C BC, UA, T3F, CMP, FE and TIBC, SHAMA, LIPID, [id number], TSH3, FSH, [id number], CUU #### [facility] [address] [place] [address] #### LH, ESTRADIOL #### [facility] , Erythrocytes [#/volume] in B lood by Automated countOrdered By: Jes Cruz on 11-01-2023 RBC (Bld) [#/Vol] 4.13 10*6/uL Normal 3.60-5.[address] [facility] Comment on above: Order Comment: Reaso n for Exam Primary hypertension Performed By: #### C BC, UA, T3F, CMP, FE and TIBC, SHAMA, LIPID, [id number], TSH3, FSH, [id number], CUU #### [facility] [address] [place] [address] [place] #### LH, ESTRADIOL #### [facility] , Estradiolon 11-01-2023 Estradiol <5.0 Normal . [facility] Comment on above: Order Comment: Reaso n for Exam Hot flashes Result Comment: Adul t Female Range Follicular phase 12.5 - 166.0 Ovulation phase 85.8 - 498.0 Luteal phase 43.8 - 211.0 Postmenopausal <6.0 - 54.7 1st trimester 215.0 - >4300.0 Mp ECLIA methodology Performed at: [facility] [id number] Tooth Cutter Pinion: Kurtis Gallegos PhD, Phone: [phone] PERFORMED BY: [place] [address] PATHOLOGIST EFFICIENCY MINER PALOMO WESLEY M.D. Performed By: #### C BC, UA, T3F, CMP, FE and TIBC, SHAMA, LIPID, [id number], TSH3, FSH, [id number], CUU ####[facility] [id number]#### LH, ESTRADIOL ####[facility] , Ferritin [Mass/volume] in Se rum or PlasmaOrdered By: Jes Cruz on 11-01-2023 Ferritin [Mass/Vol] 42.8 ng/mL Normal 11.0-306.[address] [facility] Comment on above: Order Comment: Reaso n for Exam Primary hypertension Reason for Exam Low iron Reason for Exam Primary hypertension;Hypertriglyceridemia Reason for Exam Hot flashes Reason for Exam Vitamin D deficiency Performed By: #### C BC, UA, T3F, CMP, FE and TIBC, SHAMA, LIPID, [id number], TSH3, FSH, [id number], CUU #### [facility] [address] [place] [address] [place] #### LH, ESTRADIOL #### [facility] , Folate [Mass/volume] in Seru m or PlasmaOrdered By: Jes Cruz on 11-01-2023 Folate [Mass/Vol] 10.3 ng/mL >5.9 [facility] Comment on above: Folate reference ran ge: >5.9 ng/mlThe WHO technical consultation on folate and vitamin [id number] has determined that folate concentrations lessthan 4 ng/ml are considered deficient. Follicle Stimulating Hormone on 11-01-2023 Follicle Stimulating Hormone 32.3 m[iU]/mL Normal [facility] Comment on above: Order Comment: Reaso n for Exam Primary hypertension Reason for Exam Low iron Reason for Exam Primary hypertension;Hypertriglyceridemia Reason for Exam Hot flashes Reason for Exam Vitamin D deficiency Result Comment: FEMA LE NORMALS (PREMENOPAUSE) MID-FOLLICULAR PHASE: 3.9-8.8 mIU/mL MID-CYCLE PEAK: 4.5-22.5 mIU/mL MID-LUTEAL PHASE: 1.8-5.1 mIU/mL FEMALE NORMALS (POSTMENOPAUSE): 16.7-113.6 mIU/mL MALE NORMALS: 1.3-19.3 mIU/mL Performed By: #### C BC, UA, T3F, CMP, FE and TIBC, SHAMA, LIPID, [id number], TSH3, FSH, [id number], CUU ####[facility] [id number]#### LH, ESTRADIOL ####[facility] , Follitropin [Units/volume] i n Serum or PlasmaOrdered By: Jes Cruz on 11-01-2023 Follitropin Qn 32.3 m[IU]/mL [facility] Comment on above: FEMALE NORMALS (KEVEN ENOPAUSE) MID-FOLLICULAR PHASE: 3.9-8.8 mIU/mL MID-CYCLE PEAK: 4.5-22.5 mIU/mL MID-LUTEAL PHASE: 1.8-5.1 mIU/mLFEMALE NORMALS (POSTMENOPAUSE): 16.7-113.6 mIU/mLMALE NORMALS: 1.3-19.3 mIU/mL Glucose [Mass/volume] in Ser um or PlasmaOrdered By: Jes Cruz on 11-01-2023 Glucose [Mass/Vol] 95 mg/dL Normal 70-100 [facility] Comment on above: ADA recommended refe rence rangeRandom Glucose Reference Range is dependent on time and content of last meal. Glucose of more than 200 mg/dL in a nonstressed, ambulatory subject supports the diagnosis of Diabetes Mellitus. Order Comment: Reaso n for Exam Primary hypertension Reason for Exam Low iron Reason for Exam Primary hypertension;Hypertriglyceridemia Reason for Exam Hot flashes Reason for Exam Vitamin D deficiency Result Comment: Grant om Glucose Reference Range is dependent on time and content of last meal. Glucose of more than 200 mg/dL in a nonstressed, ambulatory subject supports the diagnosis of Diabetes Mellitus. ADA recommended reference range Performed By: #### C BC, UA, T3F, CMP, FE and TIBC, SHAMA, LIPID, [id number], TSH3, FSH, [id number], CUU #### [facility] [address] [place] [address] #### LH, ESTRADIOL #### [facility] , Glucose [Mass/volume] in Uri ne by Test stripOrdered By: Jes Cruz on 11-01-2023 Glucose Test strip (U) [Mass/Vol] Normal mg/dL Normal [facility] Hematocrit [Volume Fraction] of Blood by Automated countOrdered By: Jes Cruz on 11-01-2023 Hematocrit (Bld) [Volume fraction] 39.6 % Normal 34.0-46.4 [facility] Comment on above: Order Comment: Reaso n for Exam Primary hypertension Performed By: #### C BC, UA, T3F, CMP, FE and TIBC, SHAMA, LIPID, [id number], TSH3, FSH, [id number], CUU #### [facility] [address] [place] [address] [place] #### LH, ESTRADIOL #### [facility] , Hemoglobin Test strip Ql (U) Ordered By: Jes Cruz on 11-01-2023 Hemoglobin Ql (U) Negative Negative [facility] Hemoglobin [Mass/volume] in BloodOrdered By: Jes Cruz on 11-01-2023 Hemoglobin (Bld) [Mass/Vol] 13.3 g/dL Normal 11.8-15.4 [facility] Comment on above: Order Comment: Reaso n for Exam Primary hypertension Performed By: #### C BC, UA, T3F, CMP, FE and TIBC, SHAMA, LIPID, [id number], TSH3, FSH, [id number], CUU #### [facility] [address] [place] [address] [place] #### LH, ESTRADIOL #### [facility] , Iron [Mass/volume] in Serum or PlasmaOrdered By: Jes Cruz on 11-01-2023 Iron [Mass/Vol] 106 ug/dL Normal 50-212 [facility] Comment on above: Order Comment: Reaso n for Exam Primary hypertension Reason for Exam Low iron Reason for Exam Primary hypertension;Hypertriglyceridemia Reason for Exam Hot flashes Reason for Exam Vitamin D deficiency Performed By: #### C BC, UA, T3F, CMP, FE and TIBC, SHAMA, LIPID, [id number], TSH3, FSH, [id number], CUU #### [facility] [address] [place] [address] [place] #### LH, ESTRADIOL #### [facility] , Iron and TIBC Profileon 10-04 % Iron Saturation 25.1 % Normal 20-50 [facility] Comment on above: Order Comment: Reaso n for Exam Primary hypertension Reason for Exam Low iron Reason for Exam Primary hypertension;Hypertriglyceridemia Reason for Exam Hot flashes Reason for Exam Vitamin D deficiency Performed By: #### C BC, UA, T3F, CMP, FE and TIBC, SHAMA, LIPID, [id number], TSH3, FSH, [id number], CUU #### [facility] [address] [place] [address] [place] #### LH, ESTRADIOL #### [facility] , Total Iron Binding Capacity 423 ug/dL Normal 255-450 [facility] Comment on above: Order Comment: Reaso n for Exam Primary hypertension Reason for Exam Low iron Reason for Exam Primary hypertension;Hypertriglyceridemia Reason for Exam Hot flashes Reason for Exam Vitamin D deficiency Performed By: #### C BC, UA, T3F, CMP, FE and TIBC, SHAMA, LIPID, [id number], TSH3, FSH, [id number], CUU #### [facility] [address] [place] [address] [place] #### LH, ESTRADIOL #### [facility] , Iron binding capacity [Mass/ volume] in Serum or PlasmaOrdered By: Jes Cruz on 11-01-2023 Iron binding capacity [Mass/Vol] 423 ug/dL 255-450 [facility] Iron saturation [Mass Fracti on] in Serum or PlasmaOrdered By: Jes Cruz on 11-01-2023 Iron saturation [Mass fraction] 25.1 % 20-50 [facility] Ketones [Presence] in Urine by Test stripOrdered By: Jes Cruz on 11-01-2023 Ketones Ql (U) Negative Normal Negative [facility] Comment on above: Order Comment: Reaso n for Exam Microscopic hematuria Name Collection Type:: Voided Performed By: #### C BC, UA, T3F, CMP, FE and TIBC, SHAMA, LIPID, [id number], TSH3, FSH, [id number], CUU #### [facility] [address] [place] [address] [place] #### LH, ESTRADIOL #### [facility] , Leukocyte esterase [Presence ] in Urine by Test stripOrdered By: Jes Cruz on 11-01-2023 Leukocyte esterase Test strip Ql (U) Negative Normal Negative [facility] Comment on above: Order Comment: Reaso n for Exam Microscopic hematuria Name Collection Type:: Voided Performed By: #### C BC, UA, T3F, CMP, FE and TIBC, SHAMA, LIPID, [id number], TSH3, FSH, [id number], CUU #### [facility] [address] [place] [address] [place] #### LH, ESTRADIOL #### [facility] , Leukocytes [#/volume] correc ricardo for nucleated erythrocytes in Blood by Automated counOrdered By: Jes Cruz on 11-01-2023 WBC corrected for nucl RBC Auto (Bld) [#/Vol] 7.3 10*3/uL 3.8-11.6 [facility] Leukocytes [#/volume] in Blo od by Automated countOrdered By: Jes Cruz on 11-01-2023 WBC (Bld) [#/Vol] 7.3 10*3/uL Normal 3.8-11.6 [facility] Comment on above: Order Comment: Reaso n for Exam Primary hypertension Performed By: #### C BC, UA, T3F, CMP, FE and TIBC, SHAMA, LIPID, [id number], TSH3, FSH, [id number], CUU #### [facility] [address] [place] [address] [place] #### LH, ESTRADIOL #### [facility] , Lipid Panelon 11-01-2023 LDL Cholesterol,Calculated 198 mg/dL High 0-100 [facility] Comment on above: Order Comment: Reaso n for Exam Primary hypertension Reason for Exam Low iron Reason for Exam Primary hypertension;Hypertriglyceridemia Reason for Exam Hot flashes Reason for Exam Vitamin D deficiency Result Comment: LDL ATP III CLASSIFICATION LDL less than 100 mg/dL Optimal LDL 100-129 mg/dL Near or above optimal LDL 130-159 mg/dL Borderline high LDL 160-189 mg/dL High LDL greater than 189 mg/dL Very high Performed By: #### C BC, UA, T3F, CMP, FE and TIBC, SHAMA, LIPID, [id number], TSH3, FSH, [id number], CUU #### [facility] [address] [place] [address] [place] #### LH, ESTRADIOL #### [facility] , Triglyceride w/Reflex 145 mg/dL Normal 0-149 [facility] Comment on above: Order Comment: Reaso n for Exam Primary hypertension Reason for Exam Low iron Reason for Exam Primary hypertension;Hypertriglyceridemia Reason for Exam Hot flashes Reason for Exam Vitamin D deficiency Result Comment: TRIG ATP III CLASSIFICATION TRIG less than 150 mg/dL Normal TRIG 150-199 mg/dL Borderline high TRIG 200-500 mg/dL High TRIG greater than 500 mg/dL Very high Standard traceable to the [place] for Disease Conrtrol and Prevention (CDC) test method. Performed By: #### C BC, UA, T3F, CMP, FE and TIBC, SHAMA, LIPID, [id number], TSH3, FSH, [id number], CUU #### [facility] [address] #### LH, ESTRADIOL #### [facility] , VLDL CHOLESTEROL 29 mg/dL Normal [facility] Comment on above: Order Comment: Reaso n for Exam Primary hypertension Reason for Exam Low iron Reason for Exam Primary hypertension;Hypertriglyceridemia Reason for Exam Hot flashes Reason for Exam Vitamin D deficiency Performed By: #### C BC, UA, T3F, CMP, FE and TIBC, SHAMA, LIPID, [id number], TSH3, FSH, [id number], CUU #### [facility] [address] #### LH, ESTRADIOL #### [facility] , Luteinizing Hormoneon 2023 Luteinizing Hormone 20.7 m[iU]/mL Normal . [facility] Comment on above: Order Comment: Reaso n for Exam Hot flashes Result Comment: Adul t Female Range Follicular phase 2.4 - 12.6 Ovulation phase 14.0 - 95.6 Luteal phase 1.0 - 11.4 Postmenopausal 7.7 - 58.5 Performed By: #### C BC, UA, T3F, CMP, FE and TIBC, SHAMA, LIPID, [id number], TSH3, FSH, [id number], CUU ####[facility] [id number]#### LH, ESTRADIOL ####[facility] , Lymphocytes [#/volume] in Bl ood by Automated countOrdered By: Jes Cruz on 11-01-2023 Lymphocytes (Bld) [#/Vol] 2.0 10*3/uL Normal 1.00-4.8 [facility] Comment on above: Order Comment: Reaso n for Exam Primary hypertension Performed By: #### C BC, UA, T3F, CMP, FE and TIBC, SHAMA, LIPID, [id number], TSH3, FSH, [id number], CUU #### [facility] [address] [place] [address] [place] #### LH, ESTRADIOL #### [facility] , Lymphocytes/100 leukocytes i n Blood by Automated countOrdered By: Jes Cruz on 11-01-2023 Lymphocytes/100 WBC (Bld) 28.0 % Normal . [facility] Comment on above: Order Comment: Reaso n for Exam Primary hypertension Performed By: #### C BC, UA, T3F, CMP, FE and TIBC, SHAMA, LIPID, [id number], TSH3, FSH, [id number], CUU #### [address] #### LH, ESTRADIOL #### [facility] , MCH [Entitic mass] by Automa ricardo countOrdered By: Jes Cruz on 11-01-2023 MCH (RBC) [Entitic mass] 32.3 pg Normal 24.7-34.3 [facility] Comment on above: Order Comment: Reaso n for Exam Primary hypertension Performed By: #### C BC, UA, T3F, CMP, FE and TIBC, SHAMA, LIPID, [id number], TSH3, FSH, [id number], CUU #### [place] [address] [place] #### LH, ESTRADIOL #### [facility] , MCHC Auto (RBC) [Mass/Vol]Or dered By: Jes Cruz on 11-01-2023 MCHC (RBC) [Mass/Vol] 33.6 g/dL 32.0-35.0 [facility] MCV [Entitic volume] by Auto mated countOrdered By: Jes Cruz on 11-01-2023 MCV (RBC) [Entitic vol] 96.0 fL Normal 80-100 [facility] Comment on above: Order Comment: Reaso n for Exam Primary hypertension Performed By: #### C BC, UA, T3F, CMP, FE and TIBC, SHAMA, LIPID, [id number], TSH3, FSH, [id number], CUU #### [facility] [address] #### LH, ESTRADIOL #### [facility] , Neutrophils [#/volume] in Bl ood by Automated countOrdered By: Jes Cruz on 11-01-2023 Neutrophils (Bld) [#/Vol] 4.3 10*3/uL Normal 1.8-7.7 [facility] Comment on above: Order Comment: Reaso n for Exam Primary hypertension Performed By: #### C BC, UA, T3F, CMP, FE and TIBC, SHAMA, LIPID, [id number], TSH3, FSH, [id number], CUU #### [facility] [address] [place] [address] #### LH, ESTRADIOL #### [facility] , Nitrite Test strip Ql (U)Ord ered By: Jes Cruz on 11-01-2023 Nitrite Ql (U) Negative Negative [facility] No Panel InformationOrdered By: Jes Cruz on 11-01-2023 Estimated GFR (CKD-EPI) > 60.0 mL/Min [facility] Creatinine Clearance (Chem N/A [facility] Nucleated erythrocytes [Pres ence] in Blood by Automated countOrdered By: Jes Cruz on 11-01-2023 Nucleated RBC Auto Ql (Bld) 0.1 /100{WBC} 0-0.5 [facility] Platelet mean volume [Entiti c volume] in Blood by Automated countOrdered By: Jes Cruz on 11-01-2023 Platelet mean volume (Bld) [Entitic vol] 8.3 fL Normal 6.3-10.7 [facility] Comment on above: Order Comment: Reaso n for Exam Primary hypertension Performed By: #### C BC, UA, T3F, CMP, FE and TIBC, SHAMA, LIPID, [id number], TSH3, FSH, [id number], CUU #### [facility] [address] [place] [address] [place] #### LH, ESTRADIOL #### [facility] , Platelets [#/volume] in Bloo d by Automated countOrdered By: Jes Cruz on 11-01-2023 Platelets (Bld) [#/Vol] 384 10*3/uL Normal 150-450 [facility] Comment on above: Order Comment: Reaso n for Exam Primary hypertension Performed By: #### C BC, UA, T3F, CMP, FE and TIBC, SHAMA, LIPID, [id number], TSH3, FSH, [id number], CUU #### [facility] [address] [place] [address] [place] #### LH, ESTRADIOL #### [facility] , Potassium [Moles/volume] in Serum or PlasmaOrdered By: Jes Cruz on 11-01-2023 Potassium [Moles/Vol] 4.3 mmol/L Normal 3.5-5.1 [facility] Comment on above: Order Comment: Reaso n for Exam Primary hypertension Reason for Exam Low iron Reason for Exam Primary hypertension;Hypertriglyceridemia Reason for Exam Hot flashes Reason for Exam Vitamin D deficiency Performed By: #### C BC, UA, T3F, CMP, FE and TIBC, SHAMA, LIPID, [id number], TSH3, FSH, [id number], CUU #### [facility] [address] [place] [address] [place] #### LH, ESTRADIOL #### [facility] , Protein Test strip (U) [Mass /Vol]Ordered By: Jes Cruz on 11-01-2023 Protein (U) [Mass/Vol] Negative Negative [facility] Protein [Mass/volume] in Ser um or PlasmaOrdered By: Jes Cruz on 11-01-2023 Protein [Mass/Vol] 6.9 g/dL Normal 6.4-8.9 [facility] Comment on above: Order Comment: Reaso n for Exam Primary hypertension Reason for Exam Low iron Reason for Exam Primary hypertension;Hypertriglyceridemia Reason for Exam Hot flashes Reason for Exam Vitamin D deficiency Performed By: #### C BC, UA, T3F, CMP, FE and TIBC, SHAMA, LIPID, [id number], TSH3, FSH, [id number], CUU #### [facility] [address] [place] [address] #### LH, ESTRADIOL #### [facility] , Serum globulin measurement b y calculation (mass/volume)Ordered By: Jes Cruz on 11-01-2023 Globulin (S) [Mass/Vol] 2.6 g/dL [facility] Comment on above: Order Comment: Reaso n for Exam Primary hypertension Reason for Exam Low iron Reason for Exam Primary hypertension;Hypertriglyceridemia Reason for Exam Hot flashes Reason for Exam Vitamin D deficiency Performed By: #### C BC, UA, T3F, CMP, FE and TIBC, SHAMA, LIPID, [id number], TSH3, FSH, [id number], CUU #### [facility] [address] [place] [address] [place] #### LH, ESTRADIOL #### [facility] , Serum or plasma albumin/glob ulin mass ratioOrdered By: Jes Cruz on 11-01-2023 Albumin/Globulin [Mass ratio] 1.7 {ratio} [facility] Comment on above: Order Comment: Reaso n for Exam Primary hypertension Reason for Exam Low iron Reason for Exam Primary hypertension;Hypertriglyceridemia Reason for Exam Hot flashes Reason for Exam Vitamin D deficiency Performed By: #### C BC, UA, T3F, CMP, FE and TIBC, SHAMA, LIPID, [id number], TSH3, FSH, [id number], CUU #### [facility] [address] [place] [address] [place] #### LH, ESTRADIOL #### [facility] , Serum or plasma anion gap de terminationOrdered By: Jes Cruz on 11-01-2023 Anion gap [Moles/Vol] 10.8 mmol/L Normal 6.0-15.0 [facility] Comment on above: Order Comment: Reaso n for Exam Primary hypertension Reason for Exam Low iron Reason for Exam Primary hypertension;Hypertriglyceridemia Reason for Exam Hot flashes Reason for Exam Vitamin D deficiency Performed By: #### C BC, UA, T3F, CMP, FE and TIBC, SHAMA, LIPID, [id number], TSH3, FSH, [id number], CUU #### [facility] [address] [place] [address] #### LH, ESTRADIOL #### [facility] , Serum or plasma high density lipoprotein (HDL) cholesterol measurementOrdered By: Jes Cruz on 11-01-2023 Cholesterol in HDL [Mass/Vol] 58 mg/dL Normal 23-92 [facility] Comment on above: HDL CHOL ATP-III CLA SSIFICATION Cardiovascular RiskHDL > or equal to 60 mg/dL LOWHDL < 40 mg/dL HIGH Order Comment: Reaso n for Exam Primary hypertension Reason for Exam Low iron Reason for Exam Primary hypertension;Hypertriglyceridemia Reason for Exam Hot flashes Reason for Exam Vitamin D deficiency Result Comment: HDL CHOL ATP-III CLASSIFICATION Cardiovascular Risk HDL > or equal to 60 mg/dL LOW HDL < 40 mg/dL HIGH Performed By: #### C BC, UA, T3F, CMP, FE and TIBC, SHAMA, LIPID, [id number], TSH3, FSH, [id number], CUU #### [address] #### LH, ESTRADIOL #### [facility] , Serum or plasma total choles terol/high density lipoprotein (HDL) cholesterol mass ratOrdered By: Jes Cruz on 11-01-2023 Cholesterol.total/Chol esterol in HDL [Mass ratio] 4.9 {ratio} Normal <5.0 [facility] Comment on above: Order Comment: Reaso n for Exam Primary hypertension Reason for Exam Low iron Reason for Exam Primary hypertension;Hypertriglyceridemia Reason for Exam Hot flashes Reason for Exam Vitamin D deficiency Performed By: #### C BC, UA, T3F, CMP, FE and TIBC, SHAMA, LIPID, [id number], TSH3, FSH, [id number], CUU #### [facility] [address] #### LH, ESTRADIOL #### [facility] , Sodium [Moles/volume] in Ser um or PlasmaOrdered By: Jes Anthony on 11-01-2023 Sodium [Moles/Vol] 140 mmol/L Normal 136-145 [facility] Comment on above: Order Comment: Reaso n for Exam Primary hypertension Reason for Exam Low iron Reason for Exam Primary hypertension;Hypertriglyceridemia Reason for Exam Hot flashes Reason for Exam Vitamin D deficiency Performed By: #### C BC, UA, T3F, CMP, FE and TIBC, SHAMA, LIPID, [id number], TSH3, FSH, [id number], CUU #### [facility] [address] #### LH, ESTRADIOL #### [facility] , Specific gravity Test strip (U) [Rel density]Ordered By: Jes Cruz on 11-01-2023 Specific gravity (U) [Rel density] 1.014 1.001-1.030 [facility] Thyrotropin [Units/volume] i n Serum or PlasmaOrdered By: Jes Cruz on 11-01-2023 TSH Qn 1.49 m[IU]/L Normal 0.45-5.33 [facility] Comment on above: Order Comment: Reaso n for Exam Primary hypertension Reason for Exam Low iron Reason for Exam Primary hypertension;Hypertriglyceridemia Reason for Exam Hot flashes Reason for Exam Vitamin D deficiency Performed By: #### C BC, UA, T3F, CMP, FE and TIBC, SHAMA, LIPID, [id number], TSH3, FSH, [id number], CUU ####[facility] [id number] [place] [address] [place]#### LH, ESTRADIOL ####[facility] , Transferrin [Mass/volume] in Serum or PlasmaOrdered By: Jes Cruz on 11-01-2023 Transferrin [Mass/Vol] 302 mg/dL Normal 203-362 [facility] Comment on above: Order Comment: Reaso n for Exam Primary hypertension Reason for Exam Low iron Reason for Exam Primary hypertension;Hypertriglyceridemia Reason for Exam Hot flashes Reason for Exam Vitamin D deficiency Performed By: #### C BC, UA, T3F, CMP, FE and TIBC, SHAMA, LIPID, [id number], TSH3, FSH, [id number], CUU #### [place] [address] [place] #### LH, ESTRADIOL #### [facility] , Triglyceride [Mass/volume] i n Serum or PlasmaOrdered By: Jes Cruz on 11-01-2023 Triglyceride [Mass/Vol] 145 mg/dL 0-149 [facility] Comment on above: TRIG ATP III CLASSIF ICATIONTRIG less than 150 mg/dL NormalTRIG 150-199 mg/dL Borderline highTRIG 200-500 mg/dL High TRIG greater than 500 mg/dL Very highStandard traceable to the Center for Disease Conrtrol and Prevention (CDC) test method. Triiodothyronine (T3) Freeon 11-01-2023 Triiodothyronine (T3) Free 2.86 pg/mL Normal 2.50-3.90 [facility] Comment on above: Order Comment: Reaso n for Exam Hot flashes Result Comment: PERF ORMED BY: [place] [address] PATHOLOGIST EFFIC[employer] MINER PALOMO WESLEY M.D. Performed By: #### C BC, UA, T3F, CMP, FE and TIBC, SHAMA, LIPID, [id number], TSH3, FSH, [id number], CUU #### [address] #### LH, ESTRADIOL #### [facility] , Triiodothyronine (T3) Free [ Mass/volume] in Serum or PlasmaOrdered By: Jes Cruz on 11-01-2023 Free T3 [Mass/Vol] 2.86 pg/mL 2.50-3.90 [facility] Urea nitrogen [Mass/volume] in Serum or PlasmaOrdered By: Jes Cruz on 11-01-2023 Urea nitrogen [Mass/Vol] 17 mg/dL Normal 7-25 [facility] Comment on above: Order Comment: Reaso n for Exam Primary hypertension Reason for Exam Low iron Reason for Exam Primary hypertension;Hypertriglyceridemia Reason for Exam Hot flashes Reason for Exam Vitamin D deficiency Performed By: #### C BC, UA, T3F, CMP, FE and TIBC, SHAMA, LIPID, [id number], TSH3, FSH, [id number], CUU #### [place] [address] [place] #### LH, ESTRADIOL #### [facility] , Urinalysison 11-01-2023 Bilirubin,Urine Negative Normal Negative [facility] Comment on above: Order Comment: Reaso n for Exam Microscopic hematuria Name Collection Type:: Voided Performed By: #### C BC, UA, T3F, CMP, FE and TIBC, SHAMA, LIPID, [id number], TSH3, FSH, [id number], CUU #### [place] [address] [place] #### LH, ESTRADIOL #### [facility] , Glucose Ql (U) Normal Normal Normal [facility] Comment on above: Order Comment: Reaso n for Exam Microscopic hematuria Name Collection Type:: Voided Performed By: #### C BC, UA, T3F, CMP, FE and TIBC, SHAMA, LIPID, [id number], TSH3, FSH, [id number], CUU #### [place] [address] [place] #### LH, ESTRADIOL #### [facility] , Nitrite,Urine Negative Normal Negative [facility] Comment on above: Order Comment: Reaso n for Exam Microscopic hematuria Name Collection Type:: Voided Performed By: #### C BC, UA, T3F, CMP, FE and TIBC, SHAMA, LIPID, [id number], TSH3, FSH, [id number], CUU #### [place] [address] [place] #### LH, ESTRADIOL #### [facility] , Occult Blood,Urine Negative Normal Negative [facility] Comment on above: Order Comment: Reaso n for Exam Microscopic hematuria Name Collection Type:: Voided Result Comment: PERF ORMED BY: [place] [address] PATHOLOGIST E[employer]IC[employer]ENC[employer] MINER PALOMO WESLEY M.D. Performed By: #### C BC, UA, T3F, CMP, FE and TIBC, SHAMA, LIPID, [id number], TSH3, FSH, [id number], CUU #### [address] #### LH, ESTRADIOL #### [facility] , Protein,Urine Negative Normal Negative [facility] Comment on above: Order Comment: Reaso n for Exam Microscopic hematuria Name Collection Type:: Voided Performed By: #### C BC, UA, T3F, CMP, FE and TIBC, SHAMA, LIPID, [id number], TSH3, FSH, [id number], CUU #### [address] #### LH, ESTRADIOL #### [facility] , Specificy [place],Urine 1.014 Normal 1.001-1.030 [facility] Comment on above: Order Comment: Reaso n for Exam Microscopic hematuria Name Collection Type:: Voided Performed By: #### C BC, UA, T3F, CMP, FE and TIBC, SHAMA, LIPID, [id number], TSH3, FSH, [id number], CUU #### [place] [address] [place] #### LH, ESTRADIOL #### [facility] , Urobilinogen,Urine Normal Normal Normal [facility] Comment on above: Order Comment: Reaso n for Exam Microscopic hematuria Name Collection Type:: Voided Performed By: #### C BC, UA, T3F, CMP, FE and TIBC, SHAMA, LIPID, [id number], TSH3, FSH, [id number], CUU #### [facility] [address] [place] [address] [place] #### LH, ESTRADIOL #### [facility] , Urine Cultureon 11-01-2023 Bacteria identified Cx Nom (U) Reason for Exam Microscopic hematuria Urine Reason for Exam: Microscopic hematuria : Urine <9,000 colonies/ml mixed bacterial skin contaminants 2 Days PERFORMED BY: [place] [address] PATHOLOGIST EFF[employer]ENC[employer] MINER PALOMO WESLEY M.D. Normal [facility] Comment on above: Performed By: #### C BC, UA, T3F, CMP, FE and TIBC, SHAMA, LIPID, [id number], TSH3, FSH, [id number], CUU ####[address]#### LH, ESTRADIOL ####[facility] , Urine appearanceOrdered By: Jes Cruz on 11-01-2023 Appearance (U) Clear Normal Clear [facility] Comment on above: Order Comment: Reaso n for Exam Microscopic hematuria Name Collection Type:: Voided Performed By: #### C BC, UA, T3F, CMP, FE and TIBC, SHAMA, LIPID, [id number], TSH3, FSH, [id number], CUU #### [address] #### LH, ESTRADIOL #### [facility] , Urobilinogen Test strip (U) [Mass/Vol]Ordered By: Jes Cruz on 11-01-2023 Urobilinogen (U) [Mass/Vol] Normal mg/dL Normal [facility] Vit. B12/Folate Profileon Folate 10.3 ng/mL Normal >5.9 [facility] Comment on above: Order Comment: Reaso n for Exam Primary hypertension Reason for Exam Low iron Reason for Exam Primary hypertension;Hypertriglyceridemia Reason for Exam Hot flashes Reason for Exam Vitamin D deficiency Result Comment: Amber te reference range: >5.9 ng/ml The WHO technical consultation on folate and vitamin b12 deficiencies has determined that folate concentrations less than 4 ng/ml are considered deficient. Performed By: #### C BC, UA, T3F, CMP, FE and TIBC, SHAMA, LIPID, [id number], TSH3, FSH, [id number], CUU #### [facility] [address] [place] [address] [place] #### LH, ESTRADIOL #### [facility] , Vitamin B12 ser/plasOrdered By: Jes Cruz on 11-01-2023 Cobalamin (Vitamin B12) [Mass/Vol] 208 pg/mL Normal 180-914 [facility] Comment on above: Order Comment: Reaso n for Exam Primary hypertension Reason for Exam Low iron Reason for Exam Primary hypertension;Hypertriglyceridemia Reason for Exam Hot flashes Reason for Exam Vitamin D deficiency Performed By: #### C BC, UA, T3F, CMP, FE and TIBC, SHAMA, LIPID, [id number], TSH3, FSH, [id number], CUU #### [facility] [address] [place] [address] [place] #### LH, ESTRADIOL #### [facility] , Vitamin D 25 Hydroxy Totalon 11-01-2023 Vitamin D 25 Hydroxy Total 34.2 ng/mL Normal 30-100 [facility] Comment on above: Order Comment: Reaso n for Exam Primary hypertension Reason for Exam Low iron Reason for Exam Primary hypertension;Hypertriglyceridemia Reason for Exam Hot flashes Reason for Exam Vitamin D deficiency Result Comment: IDRIS MIN D STATUS 25(OH)VITAMIN D RANGE (ng/mL) Deficient <20 Insufficient 20 to <30 Sufficient 30 to 100 Reference: Baron MF,Suze [place], Abdiel MAXWELL, et al. Evaluation,treatment, and prevention of vitamin D deficiency; an Endocrine Society clinical practice guideline. JCEM. 2010; 96(7):1911-30. PERFORMED BY: [place] [address] PATHOLOGIST EFFICIENCY MINER PALOMO WESLEY M.D. Performed By: #### C BC, UA, T3F, CMP, FE and TIBC, SHAMA, LIPID, [id number], TSH3, FSH, [id number], CUU ####[facility] [id number]#### LH, ESTRADIOL ####[facility] , Vitamin D+Metabolites [Mass/ volume] in Serum or PlasmaOrdered By: Jes Cruz on 11-01-2023 Vitamin D+Metabolites [Mass/Vol] 34.2 ng/mL 30-100 [facility] Comment on above: VITAMIN D STATUS 25( [place])VITAMIN D RANGE (ng/mL) Deficient <20 Insufficient 20 to <30Sufficient 30 to 100Reference: Baron MF,Suze [place], Abdiel MAXWELL, et al. Evaluation,treatment, and prevention of vitamin D deficiency; an Endocrine Society clinical practice guideline. JCEM. 2010; 96(7):1911-30. pH of Urine by Test stripOrd ered By: Jes Cruz on 11-01-2023 pH (U) 6.5 [pH] Normal 5.0-9.0 [facility] Comment on above: Order Comment: Reaso n for Exam Microscopic hematuria Name Collection Type:: Voided Performed By: #### C BC, UA, T3F, CMP, FE and TIBC, SHAMA, LIPID, [id number], TSH3, FSH, [id number], CUU #### [facility] [address] #### LH, ESTRADIOL #### [facility] , Ambulatory Visit Summaryon 0 10-14-2023 Ambulatory Visit [...] for choosing us for your care. Normal [facility] Provider Letteron 10-14-2023 Provider Letter Provider Letter October 14, 2023 [facility] [address] : 1970 To Whom It May Concern, Please excuse above patient from work. Date of Illness: From: 10/14/23 To: 10/14/23 May Return to Work On: Patient had an appointment on 10/14/23 with SHABNAM Bowens Restrictions: None Comments: Patient had an appointment with SHABNAM Bowens on 10/14/23 Sincerely, [facility] , option #3 Normal [facility] Urology Office/Clinic Noteon 10-14-2023 Urology Office/Clinic Note [...] E&M of Est. Patient Moderate 30-39 Min 36911 2. History of kidney stones (Z87.442: Personal [...] Urnls Dip Stick Auto w/o Microscopy POC 06987 Follow-up With When Contact Information [facility] [address] [place] [address] [facility] (1) Additional Instructions: for procedure as scheduled [...] disease: Mother. (more content not included)... Normal [facility] Comment on above: Result Comment: Elec tronically Signed By: JES ROLLE PA-C\Date and Time Signed: 10/14/23 13:24 EDT Main OR Intraoperative Recor don 10-05-2023 Main OR Intraoperative Record Main OR Intraoperative Record IntraOp Document Type FTURO Summary Primary Physician: Alexandro PARTIDA MD Finalized Date/Time: 10/05/23 09:45:46 Pt. Name: YESIISELA/Sex: 1970 Female Med Rec #: [id number] Physician: Alexandro PARTIDA MD Financial #: [id number] Pt. Type: O Room/Bed: / Admit/Disch: 10/05/23 [...] Kendall R Role Performed Surgeon - Primary Deoiling Machine Operator - Primary Scrub - Primary Time In [...] 10/05/23 09:42 Estrella Aguirre 10/05/23 09:45 Normal [facility] Main OR Preoperative Recordo n 10-05-2023 Main OR Preoperative Record Main OR Preoperative Record Holding Area Document Type FTURO Summary Primary Physician: Alexandro PARTIDA MD Finalized Date/Time: 10/05/23 08:57:00 Pt. Name: ISELA CRAIG/Sex: 1970 Female Med Rec #: [id number] Physician: Alexandro PARTIDA MD Financial #: [id number] Pt. Type: O Room/Bed: / Admit/Disch: 10/05/23 08:22:58 - Institution: Case Times Holding FTURO Pre-Care Text: Verifies consent for planned procedure, identifies individual values and wishes concerning care, includes family members in perioperative teaching Secures patient's records' belongings, and valuables, maintains patient's dignity and privacy, and maintains patient confidentiality Entry 1 In Holding 10/05/23 08:50:00 Outcomes Met? Yes Last Modified By: Ej QUINTANA, Glendy ESTRADA 10/05/23 08:50:05 Post-Care Text: The patient participates [...] SEAN Pagan RN, Ruthann 10/05/23 08:57 Normal [facility] Operative Reporton Operative Report Operative Report Patient: [...] Kim Rolle in a month or 2.. [place] Comment on above: Result Comment: Elec tronically Signed By: JAQUAN PATRICK, Alexandro Jewell\Date and Time Signed: 10/05/23 09:46 EDT Provider Letteron 10-05-2023 Provider Letter Provider Letter October 05, 2023 To Whom It May Concern, Please excuse above patient from work. Date of Illness: From: 10/05/2023 To: 10/05/2023 May Return On:10/05/2023 Sincerely, [facility] [address], [address] [place] [address] [place] Insurance Correspondenceon 0 09-28-2023 Insurance Correspondence [id number]#1. [email or web address] [place] Coding Summary.on 09-23-2023 Coding Summary. FHYIDgic82OCw2sGm+PG hl YWQ+LD1CSOPuW87qiYSdvP 8nO0HJQRrMQkixFSGETGdK BdPbflBmJS2ymVYrURTp IC8+NS1mRKNgSwbpfCOax2 F7pJG1P66paj8xVGdufCB8 SWBiHlIbfcxxd4bmaXg4IJ cuNmluOyBt ZBZwpF30MWN1lP90Fi16gH DmuKIsy4qyyUf0BkKaWQYb ZCS5gWmoECtku1LtFASjQ5 0zqNDmj2H4 JGObtAbhmRBkNnTgtYZ3yL 0mIEwowufht3ssuquxGbq8 fb99qYRpj5C3yPM3P2Yydm O9DGSlyUTr NiynpOMEbL2uqsqkv9dgie bdBcDaEENbXNb5CEn3KIPn tMqwQoSyFD11FKJ2UBHrlc XaL1DgLJCm uElyAoY2o9I7Wo5GH2CGEy otS4KBTDHJKMtszSO+PC90 rh88E2FrQwxwFsc0VXTuHN T7bLS5pY8b JXLaSTpjo3S5kAB1F5Vuyz Rfjo5zh6mwULPyUKukS30e fZNui8E7MWLgqAY6YKXnfG atVmPwmW53 Oyc+CVLnwKwif8EpFejlc6 spl2rtuVc6JtmcSRHfnfRf rZuvILS8x3LpBt6tVLOgjH Y7mWC5mE9b ExDqSkV4WEifU500QsYjfK MsYdpyS47dW0KjoJP+PHRy Axa1OXNknJlxTH6aW0ZcGL RpbmctbGVm wNsiXS6lXIPciixmOFKrpT 4bMXWfP1t6NcNgKcF0MXxs Z8RqNTErwykfIx20kO8nTm YrQqK4RJmy S1TajwK2MFYjbLWwLEafQS K2T66ss7L5XTFxEDDxKHK2 nHB7iQ9kcSxrdymmmQEqeO sgdmVydGlj CEzxHYrtU618DMOxsDbpPl NvZGluZyBEYXRlOiAgMDYv MjAvMjAyNDwvdGQ+PHRkIH U3cSgcCUYv oXGwDSirCd6wbKrnjFiuTS 1pYWWfbpmfWDPhqY1aPMBl qKEhlHjsTK4rYRAlcsgoa9 77EzNqQPC6 ZSAlvLClP0DdpX1dRkHfMW YaIJSxZ7HbbFRmTTszQ563 PEchBuM4GDIjuhWdD5KgPQ FsaWduOiB0 j2Q7Md0Yx1BdgfjpE8AtzG MlIsCoDkosOOn0I3GzUqdt dHI+TO66QKWlDC96EMu9GN L5aIvqFVvm FLTcD9QkkJ7uQcHdQRZhYV RkOyc+PHRhYmxlIHdpZHRo CUqiRXMpCoEoqXtyFT8nGj 9yZGVyLWNv wSjthNQzTmNcp7toKJZaEL zbFG9mbAmhS2JhyZE8XVTd y1p7Zw25J31vI4VbpLR+PG PunOW2bQX3 rT9pTzJwOuM8QFujU692Zz UieLVqOfvda0mfr0eydWv2 IiX4LOMuiwNuoJjuWIZ6a7 PvWi81A39a IHdpZHRoPSIxNSUiIHZhbG kjme5toU2vWz7+PGNvbCB3 bCY9uK0sMdLtFuL0IEinG1 49InRvcCIv Fjgqb5aeg5aacRr3RpRqEA AagzRnzYhyRQL6p6CcHi16 X2ZozLygy4ImXdc2ov32eL Ccn3S0vZC1 E6TyNQAkmbzfbJKaqKpaIC 8rTBEjobgdZIZypA7iPXNp M5d4VrKuWzU1XMdgD0Ychk T2EHQbkOZt RQOqrJPSiR0iccuzm9ocau ooMcUxTGSxPUq4QAd5IKHw zTjnQfGjFHE6ZgC4QJD0oG KqrM7upFck pxsniY9tYgk+GJF3yFJvgD OYLR4kSufvmQR+PHRkIHN0 qCsfQVzlEIIdgX5kZMWrQ4 t1YeUwYuE8 ZEviG5CiwaX7KGYewGCbWO NmxNCAfA0yrvamr2kwolwb HhOfFDJyGJr9KBr6NJEqeD duOiBsZWZ0 BfP7NES1sGKzbF4zhJpaus tpzJ7tQte+QmlydGggRGF0 FPs2C3JdYbb2FTFtxNiqVU 0ncGFkZGlu Gu7jkQqcbZiwHA4fPPSbxz ilc951YwPuh7gdWHSogUEi APyhHXK5Q16kg8H7BHPmOL ShPUE3bAR6 yO0yyNiqyznbxTEwmAnfuy JzcLlyEVetNPfwA039IBAl jVyxCsRjXAh5M3HgMny0MV YwcLwlPQ4z sLJxNNwoUr1smEewiYswZG 7sPZUisoolo594KiDrv8ww UDPpxJOsFIawEMH7D35qn8 P9PDMrRSTd EEE1cOZ3iV2kgMbehdvfbP VmdDsgdmVydGljYWwtYWxp A411OWXybLthXrZzzXo6S7 SfDus2BZBf qRkgQU7vtTByGVnuHq9ucG ysbFucHE9wQVFdrzgmw633 FzCeg5tkTVEiqFHhKQiyJW Y3R61wr9W1 ZBRfBTGiGDX4jKT2yI0qiP lnbjogbGVmdDsgdmVydGlj LCuwEZgxA581BWWuuBykSh BhdGllbnQg IZbcQZr7Z6HcSzljzFH+PC 86XMJkET58oYXpgXBho5ip pHp3FyUaUJLqBCG7vHfkWM zys2GmAEVq K33peNGtf5R6UZCbsVjpzV CuSeOfkEA6kP5xZRlyxfqz y9nfzxrtLkcvq0rzzk35cY 21S42bEVde ZHRoPSIzMCUiIHZhbGlnbj 3bzG4wCq4+BHTzeDE4nWP8 xJ9iICXxHmM0BCrwB353Uf RvcCIvPjxj w7vab8efaWq5QdQ8HCUoma XcpJcaFSL6v6ClBy43E18u IHdpZHRoPSIyMCUiIHZhbG ziif0gbA4n Ii8+PRCxoIF1kCS5oX9iAr QhTmP9ERhiW273EcGurJVl KbecC61sK6SacYU+PHRyPj t7OFQxcOkg NX4nqCXiPIpwSj5wATH3Ra EfVvEdHYcdT5ApXCCjnifd xpaalLE0FHOhSEYreQ37Fe 9udDogMTBw fAVEjG8umeccy5phukvvQm FuBBFdXTd0TVc9KFIgxDxw RmQqCKC8JjG7UWC0kUXzhO 1hbGlnbjog eZ3uU0FeYWEbdqzoAu22sI 6tRlIjSzZ7IRioVqx+Q09S QklOLCBDSEVOTkkgSzwvdG Q+PHRkIHN0 jNrbDNctJZAzqJ1kBUKvU2 x2UuDbJmP8ZXiyF8YhDMYl tmfqMj19kZ9bScEbFrY1TI wvD5WyhjQ3 TIBdfHIvIEkhOXC1Y36df7 J8OWEkPEQnULC8wGI3cP4u bGlnbjogbGVmdDsgdmVydG ljYWwtYWxp N095YEViaPkcRjOxQlPpFq K0NyX1P9LmKsa3OTYvjPqc XN5emODgLDwwZt1nzMjmtH dkZS5qSHYb iktoEHQxiZ7kCZIvjWWtyU jeUC8fRLVjtcxfq748LlYo CTM0AOFmaSSzH5ZpkH1qEk AjMDAwMDAw X7WogLXkXAieS375WMqvLe O8DSHebrSwO6YiDADghKes GdA9p2Q3Nc94XeIYFDQwjq wvdGQ+PHRk EZR4mDqjUSdqUALlxW6mVY WnW0g5MrUzBmO5NHiiV8Mg RCXcxsneHj93qU4pIjNxPl A0EExjB8Dh wuH1QYKawCDhZGthJJM1W2 1jg4R6YIRgHDPvCCY4zFV6 eA5ibWtphxflzBAymDwxjr VydGljYWwt SSqiK206GKBnpGgtInIylJ FsZTwvdGQ+ASRyRIK2pSnz YDbmJGVoiA1pGNRpB7f6Jf JpIvP9FDoj L4McWTMajvzaDy50lQ3dTs KiAmJ9UFfpK3TqhkM2JGVj gKZxVSqeNWL4U54wy9P6ON MwMDAwMDA7 qLA6hN6ttDmrmhgqtZIkfS lcdhSdhLpoZFuhOWizP451 TYVkjUhkXa88lZIxpLtfpj U6L9AuDzto dHI+JY39RMNmCT52jLXcnC Lnb8vxiXj7PlDvAGNqDPX5 iAmvNIgxu0NlVXUyU48jeG Gjd6Y2YRAq aGnzrQVuIgOofHP8gR1uML uisisbm5dktucgIpmco4gt fw76cG36Z52qTOkkWCWgBT IzMCUiIHZh pYwpux6kyJ5wZu5+PGNvbC D9ePC3xS6kNtNeVcB5PFds U872EuAhlILvFauye4utg9 qnoYj8NaWl DKAlfzHigScxAVC7j4SrKd 31H19gQRrtYMUjNVHkYYKd YRXmeVioxq5cfA2uKh0+PC 2ua4rwlx45 wW23uBF+JSBhKXE8gWwkEI klTPTtgL2pFCljGxB9GLQp YyRiyF47oOKuPOqbBe3udU cjsYfbWJ2q RQXqtsttm553KcGqx0fxLI GssRNhZEvcGDI9H50mt9B4 SVShQIKyVFB9xIG1gZ3jqZ lnbjogbGVm dDsgdmVydGljYWwtYWxpZ2 46XHIoeEmoVeHcxQBcZ4qr joGAKC5gZnotqNY+PHRkIH H4uQbgWWir LEIwvY7eFECvN5e7OyBcVq V5JPfoE0JzhaC9OJEmsUPi UPRzzWBXkG6uxfbwc5qnev ogIzAwMDAw USs1WTh7ARRndKppDrJpGB N3HaN2MOL1iTVjzC5idOyu qgkjuT4bOih+RklOOjwvdG Q+PHRkIHN0 bYiaKZozCXOewE1yKHJoH3 l6ToSxUcJ8WChaG3ZcqyT9 DJMsdMRtOGScjBULaP9gbm ljl0jqqnsq ErHjKYQiUVl9QTg2CLXvxU xwSgKvHBX1RyT7CRB3sIMl uZ0vsPodmhzxoY8hHsh+TV JOOjwvdGQ+ TNKcSVY9oVwcRDbkIMKazF 2xSCUiI1n3DmGvNjB0YIgd T2FctiA3PBZzrUNsUCVupA ZMkE0wqsai v8voulvdFcZoUERgSGa7BY h9LJTicXjwAcBiIUE3VrM6 UNG6cQHaiV4dzHmbpdqocR 9wOyc+UGF5 ZJA8SN78GB56N9NxMzzpuL FibGU+PHRhYmxlIHdpZHRo YDogBZEpQqQstFnoCT4fIy 9yZGVyLWNv bGxhcHNlOiBjb (more content not included)... Normal [facility] CBC AND AUTO DIFFon 09-18-19 24 ABSOLUTE BASOPHIL 0.0 X10E9/L Normal 0.0-0.2 [facility] Comment on above: Performed By: #### C BCA, CMP, 3040-3 #### [facility] ([id number]) [address] [place] [address] ABSOLUTE NEUTROPHIL 3.2 X10E9/L Normal 1.5-6.6 [facility] Comment on above: Performed By: #### C BCA, CMP, 3040-3 #### [facility] ([id number]) [address] [place] [address] 96959 Basophils/100 WBC (Bld) 0.7 % Normal [facility] Comment on above: Performed By: #### Terrie KIRKPATRICK CMP, 3 #### [facility] ([id number]) [address] [place] [address] 82447 Eosinophils (Bld) [#/Vol] 0.1 10*3/uL Normal 0.0-0.4 [facility] Comment on above: Performed By: #### Terrie KIRKPATRICK CMP, 3039-06 #### [facility] ([id number]) [address] [place] [address] 32812 Eosinophils/100 WBC (Bld) 2.4 % Normal [facility] Comment on above: Performed By: #### Terrie KIRKPATRICK CMP, 3039-06 #### [facility] ([id number]) [address] [place] [address] 59587 Erythrocyte distribution width (RBC) [Ratio] 13.6 % Normal 11.5-15.0 [facility] Comment on above: Performed By: #### Terrie KIRKPATRICK [facility], 3039-06 #### [facility] ([id number]) [address] [place] [address] 40843 Hematocrit (Bld) [Volume fraction] 34.5 % Low 35-47 [facility] Comment on above: Performed By: #### Terrie KIRKPATRICK CMP, 3039-06 #### [facility] ([id number]) [address] [place] [address] 68100 Hemoglobin (Bld) [Mass/Vol] 11.6 g/dL Low 11.7-15.5 [facility] Comment on above: Performed By: #### Terrie KIRKPATRICK CMP, 3039-06 #### [facility] ([id number]) [address] [place] [address] 81084 Lymphocytes (Bld) [#/Vol] 1.9 10*3/uL Normal 1.0-3.5 [facility] Comment on above: Performed By: #### Terrie KIRKPATRICK CMP, 3039-06 #### [facility] ([id number]) [address] [place] [address] 03994 Lymphocytes/100 WBC (Bld) 30.9 % Normal [facility] Comment on above: Performed By: #### Terrie KIRKPATRICK CMP, 3039-06 #### [facility] ([id number]) [address] [place] [address] 52789 MCH (RBC) [Entitic mass] 33.1 pg Normal 27-34 [facility] Comment on above: Performed By: #### Terrie KIRKPATRICK CMP, 3039-06 #### [facility] ([id number]) [address] [place] [address] 70526 MCHC (RBC) [Mass/Vol] 33.6 g/dL Normal 32-36 [facility] Comment on above: Performed By: #### Terrie KIRKPATRICK CMP, 3039-06 #### [facility] ([id number]) [address] [place] [address] 98362 MCV (RBC) [Entitic vol] 99 fL Normal 80-100 [facility] Comment on above: Performed By: #### Terrie KIRKPATRICK CMP, 3039-06 #### [facility] ([id number]) [address] [place] [address] 07679 Monocytes (Bld) [#/Vol] 0.9 10*3/uL Normal 0-0.9 [facility] Comment on above: Performed By: #### Terrie KIRKPATRICK CMP, 3039-06 #### [facility] ([id number]) [address] [place] [address] 96739 Monocytes/100 WBC (Bld) 13.8 % Normal [facility] Comment on above: Performed By: #### Terrie KIRKPATRICK CMP, 3040-3 #### [facility] ([id number]) [address] [place] [address] 80019 Neutrophils/100 WBC (Bld) 52.2 % Normal [facility] Comment on above: Performed By: #### Terrie KIRKPATRICK, CMP, 3039-3 #### [facility] ([id number]) [address] [place] [address] 13279 Platelet mean volume (Bld) [Entitic vol] 9.1 fL Normal 7-12 [facility] Comment on above: Performed By: #### Terrie KIRKPATRICK, CMP, 3039-3 #### [facility] ([id number]) [address] [place] [address] 62832 Platelets (Bld) [#/Vol] 291 10*3/uL Normal 150-450 [facility] Comment on above: Performed By: #### Terrie KIRKPATRICK, CMP, 3 #### [facility] ([id number]) [address] [place] [address] 59758 RBC COUNT 3.50 X10E12/L Low 3.80-5.20 [facility] Comment on above: Performed By: #### Terrie KIRKPATRICK, CMP, 3 #### [facility] ([id number]) [address] [place] [address] 34338 WBC (Bld) [#/Vol] 6.2 10*3/uL Normal 4.0-11.0 [facility] Comment on above: Performed By: #### Terrie KIRKPATRICK, CMP, 3039-3 #### [facility] ([id number]) [address] [place] [address] 03590 COMPREHENSIVE METABOLIC PANE Hema 09-18-2023 Albumin [Mass/Vol] 3.8 g/dL Normal 3.2-5.3 [facility] Comment on above: Performed By: #### Terrie KIRKPATRICK, CMP, 3039-3 #### [facility] ([id number]) [address] [place] [address] 24369 ALP [Catalytic activity/Vol] 64 U/L Normal 39-130 [facility] Comment on above: Performed By: #### C KAYA CMP, 0-3 #### [facility] ([id number]) [address] [place] [address] 48021 ALT [Catalytic activity/Vol] 18 U/L Normal 0-31 [facility] Comment on above: Performed By: #### Terrie KIRKPATRICK CMP, 3039-3 #### [facility] ([id number]) [address] [place] [address] 73645 Anion gap [Moles/Vol] 7 mmol/L Normal 5-15 [facility] Comment on above: Performed By: #### Terrie KIRKPATRICK CMP, 3039-3 #### [facility] ([id number]) [address] [place] [address] 67039 AST [Catalytic activity/Vol] 19 U/L Normal 0-41 [facility] Comment on above: Performed By: #### Terrie KIRKPATRICK CMP, 3039-3 #### [facility] ([id number]) [address] [place] [address] 37699 Bilirubin [Mass/Vol] 0.6 mg/dL Normal 0.3-1.2 [facility] Comment on above: Performed By: #### Terrie KIRKPATRICK CMP, 3 #### [facility] ([id number]) [address] [place] [address] 54600 Calcium [Mass/Vol] 8.4 mg/dL Low 8.5-10.5 [facility] Comment on above: Performed By: #### Terrie KIRKPATRICK CMP, 3039-3 #### [facility] ([id number]) [address] [place] [address] 64209 Chloride [Moles/Vol] 105 mmol/L Normal 98-109 [facility] Comment on above: Performed By: #### C KEYSHAWN KIRKPATRICK, 304-3 #### [facility] ([id number]) [address] [place] [address] 72538 CO2 [Moles/Vol] 26 mmol/L Normal 22-32 [facility] Comment on above: Performed By: #### C KEYSHAWN KIRKPATRICK, 3039-3 #### [facility] ([id number]) [address] [place] [address] 02833 Creatinine [Mass/Vol] 1.03 mg/dL High 0.40-1.00 [facility] Comment on above: Result Comment: METH OD TRACEABLE TO IDMS STANDARD Performed By: #### C KEYSHAWN KIRKPATRICK, 3 #### [facility] ([id number]) [address] [place] [address] 47167 GFR/1.73 sq M.predicted among non-blacks MDRD (S/P/Bld) [Vol rate/Area] 65 mL/min/{1.73_m2} Normal >59 [facility] Comment on above: Result Comment: Reported eGFR is based on the CKD-EPI 2020 equation that does not use a race coefficient. Performed By: #### C KEYSHAWN KIRKPATRICK, 3 #### [facility] ([id number]) [address] [place] [address] 77356 Glucose [Mass/Vol] 99 mg/dL Normal 65-99 [facility] Comment on above: Performed By: #### C KEYSHAWN KIRKPATRICK, 3039-3 #### [facility] ([id number]) [address] [place] [address] 41113 Potassium [Moles/Vol] 3.4 mmol/L Low 3.5-5.0 [facility] Comment on above: Performed By: #### C KEYSHAWN KIRKPATRICK, 3039-3 #### [facility] ([id number]) [address] [place] [address] [place] [address] Protein [Mass/Vol] 6.9 g/dL Normal 6.0-8.0 [facility] Comment on above: Performed By: #### C KAYA CMP, 3040-3 #### [facility] ([id number]) [address] [place] [address] 66179 Sodium [Moles/Vol] 138 mmol/L Normal 134-146 [facility] Comment on above: Performed By: #### C BCA, CMP, 3040-3 #### [facility] ([id number]) [address] [place] [address] 51657 Urea nitrogen [Mass/Vol] 10 mg/dL Normal 5-23 [facility] Comment on above: Performed By: #### C KEYSHAWN KIRKPATRICK, 3040-3 #### [facility] ([id number]) [address] [place], [place] [id number] CT BRAIN WO CONTon CT BRAIN WO [...] Johny Frances on 09/18/2023 9:21 PM Normal [facility] LIPASEon 09-18-2023 Lipase [Catalytic activity/Vol] 36 U/L Normal 17-40 [facility] Comment on above: Performed By: #### C BCA, CMP, 3040-3 #### [facility] ([id number]) [address] [place] [address] 77176 URN MACROSCOPIC NURon 2023 BILIRUBIN SHADY Negative Normal NEG [facility] Comment on above: Performed By: #### N UM #### [facility] ([id number]) [address] [place] [address] [place] [address] BLOOD/HGB SHADY Trace Abnormal NEG [facility] Comment on above: Performed By: #### N UM #### [facility] ([id number]) [address] [place] [address] GLUCOSE SHADY Negative Normal NEG [facility] Comment on above: Performed By: #### N UM #### [facility] ([id number]) [address] [place] [address] [place] [address] KETONES SHADY Negative Normal NEG [facility] Comment on above: Performed By: #### N UM #### [facility] ([id number]) [address] [place] [address] [place] [address] LEUKOCYTE ESTERASE SHADY Negative Normal NEG [facility] Comment on above: Performed By: #### N UM #### [facility] ([id number]) [address] [place] [address] [place] [address] NITRITE SHADY Negative Normal NEG [facility] Comment on above: Performed By: #### N UM #### [facility] ([id number]) [address] [place] [address] PH SHADY 6.0 Normal 5.0-8.5 [facility] Comment on above: Performed By: #### N UM #### [facility] ([id number]) [address] [place] [address] PROTEIN SHADY Negative Normal NEG [facility] Comment on above: Performed By: #### N UM #### [facility] ([id number]) [address] [facility] [place] [address] SPECIFIC GRAVITY SHADY 1.010 Normal 1.003-1.035 [facility] Comment on above: Performed By: #### N UM #### [facility] ([id number]) [address] [facility] [place] [address] UROBILINOGEN SHADY 0.2 eu/dL Normal <1.1 [facility] Comment on above: Performed By: #### N UM #### [facility] ([id number]) [address] [facility], [place] [address] Consent for Treatmenton 09-03 Consent for Treatment [id number]#1.0 0TIFF Normal [facility] Heart and Vascular Office/Cl inic Noteon 09-13-2023 Heart and Vascular Office/Clinic Note [...] with voice recognition artificial intelligence software, specifically [employer], [employer] and or [employer]. Substitutions may have occurred due to the [...] Procedure/Surgical History Ca (more content not included)... [place] Comment on above: Result Comment: Elec tronically Signed By: Deepak MOSES, Roosevelt Remy\.br\Date and Time Signed: 09/13/23 13:41 EDT Insurance Correspondenceon 0 09-13-2023 Insurance Correspondence [id number]#1.0 0TIFF [place] Outside Labson 09-13-2023 Outside Labs [id number]#1. 00TIFF [place] Outside Recordson 09-13-2023 Outside Records [id number]#1. 00TIFF [place] Outside Records [id number]#1. 00TIFF [place] Physician Orderon 09-13-2023 Physician Order [id number]#1. 00TIFF [place] RAD - CT Reporton 08-31-2023 RAD - CT Report [id number]#1.00 TIFF Normal [facility] Lab Reportson 08-17-2023 Lab Reports [id number]#1.0 0TIFF Normal [facility] Urine Cytology ([facility])on 0 08-17-2023 Microscopic exam Cytology (U) [Interp] Diagnosis Info Invalid Interpretation Code [facility] Comment on above: Result Comment: A:Ur ine,Urine:Voided Interpretation - MicroScopic Description - Adequacy - Gross Description Site ID:A color Light Yellow fixative Alcohol Specimen designated Urine received in alcohol preservative and labeled with the patient?s name, consists of 60ml clear light yellow fluid. Electronically signed by : on: 08/17/2023 14:12:20 Performed By: #### 1 [id number] ####[facility] [address] [place] [address] Lab Reportson 08-11-2023 Lab Reports [id number]#1.00 TIFF Normal [facility] Physician Referralon 024 Physician Referral [id number]#1.0 0TIFF Normal [facility] RAD - MISCon 08-11-2023 RAD - MISC [id number]#1.0 0TIFF Normal [facility] RAD - MISC [id number]#1.0 0TIFF Normal [facility] RAD - Ultrasound Reporton RAD - Ultrasound Report [id number]#1.0 0TIFF Normal [facility] RAD - Ultrasound Report [id number]#1.0 0TIFF Normal [facility] Screenson 08-11-2023 Screens [id number]#1.0 0TIFF Hannah Bravo [facility] Ambulatory Visit Summaryon 0 08-10-2023 Ambulatory [...] Appointments Follow Up with JES ROLLE PA-C, URL When: Where: [address] [place] [address] [id number] Medications What How Much When Instructions Unchanged [...] make many (more content not included)... Normal [facility] Patient Educationon 08-10-19 24 Patient Education Pulmonary [...] require a prescription. You can also purchase kjbg-yvi-sofvpga medicines. Medicines may have nicotine in them [...] and encouragement. Call telephone quitlines, such as 9-197-MAXI-NOW, reach out to support groups, or work [...] quit smoki (more content not included)... Normal [facility] Urine Cytology ([facility])on 0 08-10-2023 Method of Extraction Voided Normal [facility] Comment on above: Performed By: #### 1 [id number] ####[facility] [address] [place] [address] Number of Jars 1 Invalid Interpretation Code [facility] Comment on above: Performed By: #### 1 [id number] ####[facility] [address] [place] [address] Specimen Urine Normal [facility] Comment on above: Performed By: #### 1 [id number] ####[facility] [id number] [place] [address] Type of Service Technical Only Normal Fi [facility] Comment on above: Performed By: #### 1 [id number] ####[facility] [id number] [place] [address] Complete Blood Count Auto Di ffon 06-09-2023 Basophils (Bld) [#/Vol] 0.0 10*3/uL Normal 0.0-0.2 [facility] Comment on above: Order Comment: Reaso n for Exam Urinary frequency;Medication management;Anxiety;Microscopic Result Comment: PERF ORMED BY: [facility] [address] [place] [address] PATHOLOGIST EFFICIENCY MINER PALOMO WESLEY M.D. Performed By: #### T HYROID SC, [id number], CBC, URMACRERAT, CMP, FE and TIBC, SHAMA, LIPID, LDLD ####[facility] [id number] [place] [address] [place]#### HIV SCREEN, TOXASSURE ####[facility] , Basophils/100 WBC (Bld) 0.3 % Normal . [facility] Comment on above: Order Comment: Reaso n for Exam Urinary frequency;Medication management;Anxiety;Microscopic Performed By: #### T HYROID SC, [id number], CBC, URMACRERAT, CMP, FE and TIBC, SHAMA, LIPID, LDLD ####[address]#### HIV SCREEN, TOXASSURE ####[facility] , Eosinophils (Bld) [#/Vol] 0.1 10*3/uL Normal 0.0-0.45 [facility] Comment on above: Order Comment: Reaso n for Exam Urinary frequency;Medication management;Anxiety;Microscopic Performed By: #### T HYROID SC, [id number], CBC, URMACRERAT, CMP, FE and TIBC, SHAMA, LIPID, LDLD ####[address]#### HIV SCREEN, TOXASSURE ####[facility] , Eosinophils/100 WBC (Bld) 1.7 % Normal . [facility] Comment on above: Order Comment: Reaso n for Exam Urinary frequency;Medication management;Anxiety;Microscopic Performed By: #### T HYROID SC, [id number], CBC, URMACRERAT, CMP, FE and TIBC, SHAMA, LIPID, LDLD ####[address]#### HIV SCREEN, TOXASSURE ####[facility] , Erythrocyte distribution width (RBC) [Ratio] 13.2 % Normal 11.9-15.3 [facility] Comment on above: Order Comment: Reaso n for Exam Urinary frequency;Medication management;Anxiety;Microscopic Performed By: #### T HYROID SC, [id number], CBC, URMACRERAT, CMP, FE and TIBC, SHAMA, LIPID, LDLD ####[address]#### HIV SCREEN, TOXASSURE ####[facility] , Hematocrit (Bld) [Volume fraction] 41.9 % Normal 34.0-46.4 [facility] Comment on above: Order Comment: Reaso n for Exam Urinary frequency;Medication management;Anxiety;Microscopic Performed By: #### T HYROID SC, [id number], CBC, URMACRERAT, CMP, FE and TIBC, SHAMA, LIPID, LDLD ####[address]#### HIV SCREEN, TOXASSURE ####[facility] , Hemoglobin (Bld) [Mass/Vol] 14.0 g/dL Normal 11.8-15.4 [facility] Comment on above: Order Comment: Reaso n for Exam Urinary frequency;Medication management;Anxiety;Microscopic Performed By: #### T HYROID SC, [id number], CBC, URMACRERAT, CMP, FE and TIBC, SHAMA, LIPID, LDLD ####[address]#### HIV SCREEN, TOXASSURE ####[facility] , Lymphocytes (Bld) [#/Vol] 2.2 10*3/uL Normal 1.00-4.8 [facility] Comment on above: Order Comment: Reaso n for Exam Urinary frequency;Medication management;Anxiety;Microscopic Performed By: #### T HYROID SC, [id number], CBC, URMACRERAT, CMP, FE and TIBC, SHAMA, LIPID, LDLD ####[place] [address] [place]#### HIV SCREEN, TOXASSURE ####[facility] , Lymphocytes/100 WBC (Bld) 30.2 % Normal . [facility] Comment on above: Order Comment: Reaso n for Exam Urinary frequency;Medication management;Anxiety;Microscopic Performed By: #### T HYROID SC, [id number], CBC, URMACRERAT, CMP, FE and TIBC, SHAMA, LIPID, LDLD ####[place] [id number] [address]#### HIV SCREEN, TOXASSURE ####[facility] , MCH (RBC) [Entitic mass] 32.8 pg Normal 24.7-34.3 [facility] Comment on above: Order Comment: Reaso n for Exam Urinary frequency;Medication management;Anxiety;Microscopic Performed By: #### T HYROID SC, [id number], CBC, URMACRERAT, CMP, FE and TIBC, SHAMA, LIPID, LDLD ####[address]#### HIV SCREEN, TOXASSURE ####[facility] , MCV (RBC) [Entitic vol] 98.5 fL Normal 80-100 [facility] Comment on above: Order Comment: Reaso n for Exam Urinary frequency;Medication management;Anxiety;Microscopic Performed By: #### T HYROID SC, [id number], CBC, URMACRERAT, CMP, FE and TIBC, SHAMA, LIPID, LDLD ####[address]#### HIV SCREEN, TOXASSURE ####[facility] , Mean Corpuscular HGB Conc 33.3 g/dL Normal 32.0-35.0 [facility] Comment on above: Order Comment: Reaso n for Exam Urinary frequency;Medication management;Anxiety;Microscopic Performed By: #### T HYROID SC, [id number], CBC, URMACRERAT, CMP, FE and TIBC, SHAMA, LIPID, LDLD ####[address]#### HIV SCREEN, TOXASSURE ####[facility] , Monocytes (Bld) [#/Vol] 0.8 10*3/uL Normal 0.0-0.8 [facility] Comment on above: Order Comment: Reaso n for Exam Urinary frequency;Medication management;Anxiety;Microscopic Performed By: #### T HYROID SC, [id number], CBC, URMACRERAT, CMP, FE and TIBC, SHAMA, LIPID, LDLD ####[address]#### HIV SCREEN, TOXASSURE ####[facility] , Monocytes/100 WBC (Bld) 10.9 % Normal . [facility] Comment on above: Order Comment: Reaso n for Exam Urinary frequency;Medication management;Anxiety;Microscopic Performed By: #### T HYROID SC, [id number], CBC, URMACRERAT, CMP, FE and TIBC, SHAMA, LIPID, LDLD ####[address]#### HIV SCREEN, TOXASSURE ####[facility] , Neutrophils (Bld) [#/Vol] 4.1 10*3/uL Normal 1.8-7.7 [facility] Comment on above: Order Comment: Reaso n for Exam Urinary frequency;Medication management;Anxiety;Microscopic Performed By: #### T HYROID SC, [id number], CBC, URMACRERAT, CMP, FE and TIBC, SHAMA, LIPID, LDLD ####[address]#### HIV SCREEN, TOXASSURE ####[facility] , Neutrophils/100 WBC (Bld) 56.9 % Normal . [facility] Comment on above: Order Comment: Reaso n for Exam Urinary frequency;Medication management;Anxiety;Microscopic Performed By: #### T HYROID SC, [id number], CBC, URMACRERAT, CMP, FE and TIBC, SHAMA, LIPID, LDLD ####[address]#### HIV SCREEN, TOXASSURE ####[facility] , NRBC% 0.1 /100{WBC} Normal 0-0.5 [facility] Comment on above: Order Comment: Reaso n for Exam Urinary frequency;Medication management;Anxiety;Microscopic Performed By: #### T HYROID SC, [id number], CBC, URMACRERAT, CMP, FE and TIBC, SHAMA, LIPID, LDLD ####[address]#### HIV SCREEN, TOXASSURE ####[facility] , Platelet mean volume (Bld) [Entitic vol] 9.0 fL Normal 6.3-10.7 [facility] Comment on above: Order Comment: Reaso n for Exam Urinary frequency;Medication management;Anxiety;Microscopic Performed By: #### T HYROID SC, [id number], CBC, URMACRERAT, CMP, FE and TIBC, SHAMA, LIPID, LDLD ####[address]#### HIV SCREEN, TOXASSURE ####[facility] , Platelets (Bld) [#/Vol] 314 10*3/uL Normal 150-450 [facility] Comment on above: Order Comment: Reaso n for Exam Urinary frequency;Medication management;Anxiety;Microscopic Performed By: #### T HYROID SC, [id number], CBC, URMACRERAT, CMP, FE and TIBC, SHAMA, LIPID, LDLD ####[address]#### HIV SCREEN, TOXASSURE ####[facility] , RBC (Bld) [#/Vol] 4.26 10*6/uL Normal 3.60-5.00 [facility] Comment on above: Order Comment: Reaso n for Exam Urinary frequency;Medication management;Anxiety;Microscopic Performed By: #### T HYROID SC, [id number], CBC, URMACRERAT, CMP, FE and TIBC, SHAMA, LIPID, LDLD ####[address]#### HIV SCREEN, TOXASSURE ####[facility] , WBC (Bld) [#/Vol] 7.2 10*3/uL Normal 3.8-11.6 [facility] Comment on above: Order Comment: Reaso n for Exam Urinary frequency;Medication management;Anxiety;Microscopic Performed By: #### T HYROID SC, [id number], CBC, URMACRERAT, CMP, FE and TIBC, SHAMA, LIPID, LDLD ####[place] [id number] [address]#### HIV SCREEN, TOXASSURE ####[facility] , Comprehensive Metabolic Pane hema 06-09-2023 Albumin [Mass/Vol] 4.2 g/dL Normal 3.5-5.7 [facility] Comment on above: Order Comment: Reaso n for Exam Urinary frequency;Medication management;Anxiety;Microscopic Reason for Exam Microscopic hematuria;Low iron Reason for Exam Bipolar affective disorder, currently depressed, moderate Reason for Exam Vitamin D deficiency Performed By: #### T HYROID SC, [id number], CBC, URMACRERAT, CMP, FE and TIBC, SHAMA, LIPID, LDLD ####[address]#### HIV SCREEN, TOXASSURE ####[facility] , Albumin/Globulin [Mass ratio] 1.4 {ratio} Normal [facility] Comment on above: Order Comment: Reaso n for Exam Urinary frequency;Medication management;Anxiety;Microscopic Reason for Exam Microscopic hematuria;Low iron Reason for Exam Bipolar affective disorder, currently depressed, moderate Reason for Exam Vitamin D deficiency Performed By: #### T HYROID SC, [id number], CBC, URMACRERAT, CMP, FE and TIBC, SHAMA, LIPID, LDLD ####[place] [id number] [address]#### HIV SCREEN, TOXASSURE ####[facility] , ALP [Catalytic activity/Vol] 87 U/L Normal 34-104 [facility] Comment on above: Order Comment: Reaso n for Exam Urinary frequency;Medication management;Anxiety;Microscopic Reason for Exam Microscopic hematuria;Low iron Reason for Exam Bipolar affective disorder, currently depressed, moderate Reason for Exam Vitamin D deficiency Performed By: #### T HYROID SC, [id number], CBC, URMACRERAT, CMP, FE and TIBC, SHAMA, LIPID, LDLD ####[place] [id number]#### HIV SCREEN, TOXASSURE ####[facility] , ALT [Catalytic activity/Vol] 10 U/L Normal 7-52 [facility] Comment on above: Order Comment: Reaso n for Exam Urinary frequency;Medication management;Anxiety;Microscopic Reason for Exam Microscopic hematuria;Low iron Reason for Exam Bipolar affective disorder, currently depressed, moderate Reason for Exam Vitamin D deficiency Performed By: #### T HYROID SC, [id number], CBC, URMACRERAT, CMP, FE and TIBC, SHAMA, LIPID, LDLD ####[address]#### HIV SCREEN, TOXASSURE ####[facility] , Anion gap [Moles/Vol] 12.9 mmol/L Normal 6.0-15.0 [facility] Comment on above: Order Comment: Reaso n for Exam Urinary frequency;Medication management;Anxiety;Microscopic Reason for Exam Microscopic hematuria;Low iron Reason for Exam Bipolar affective disorder, currently depressed, moderate Reason for Exam Vitamin D deficiency Performed By: #### T HYROID SC, [id number], CBC, URMACRERAT, CMP, FE and TIBC, SHAMA, LIPID, LDLD ####[address]#### HIV SCREEN, TOXASSURE ####[facility] , AST [Catalytic activity/Vol] 12 U/L Low 13-39 [facility] Comment on above: Order Comment: Reaso n for Exam Urinary frequency;Medication management;Anxiety;Microscopic Reason for Exam Microscopic hematuria;Low iron Reason for Exam Bipolar affective disorder, currently depressed, moderate Reason for Exam Vitamin D deficiency Performed By: #### T HYROID SC, [id number], CBC, URMACRERAT, CMP, FE and TIBC, SHAMA, LIPID, LDLD ####[place] [id number]#### HIV SCREEN, TOXASSURE ####[facility] , Bilirubin [Mass/Vol] 0.2 mg/dL Low 0.3-1.0 [facility] Comment on above: Order Comment: Reaso n for Exam Urinary frequency;Medication management;Anxiety;Microscopic Reason for Exam Microscopic hematuria;Low iron Reason for Exam Bipolar affective disorder, currently depressed, moderate Reason for Exam Vitamin D deficiency Performed By: #### T HYROID SC, [id number], CBC, URMACRERAT, CMP, FE and TIBC, SHAMA, LIPID, LDLD ####[address]#### HIV SCREEN, TOXASSURE ####[facility] , Calcium [Mass/Vol] 9.5 mg/dL Normal 8.6-10.3 [facility] Comment on above: Order Comment: Reaso n for Exam Urinary frequency;Medication management;Anxiety;Microscopic Reason for Exam Microscopic hematuria;Low iron Reason for Exam Bipolar affective disorder, currently depressed, moderate Reason for Exam Vitamin D deficiency Performed By: #### T HYROID SC, [id number], CBC, URMACRERAT, CMP, FE and TIBC, SHAMA, LIPID, LDLD ####[place] [address] [place]#### HIV SCREEN, TOXASSURE ####[facility] , Chloride [Moles/Vol] 105 mmol/L Normal 98-107 [facility] Comment on above: Order Comment: Reaso n for Exam Urinary frequency;Medication management;Anxiety;Microscopic Reason for Exam Microscopic hematuria;Low iron Reason for Exam Bipolar affective disorder, currently depressed, moderate Reason for Exam Vitamin D deficiency Performed By: #### T HYROID SC, [id number], CBC, URMACRERAT, CMP, FE and TIBC, SHAMA, LIPID, LDLD ####[place] [address] [place]#### HIV SCREEN, TOXASSURE ####[facility] , CO2 [Moles/Vol] 25.0 mmol/L Normal 21.0-31.0 [facility] Comment on above: Order Comment: Reaso n for Exam Urinary frequency;Medication management;Anxiety;Microscopic Reason for Exam Microscopic hematuria;Low iron Reason for Exam Bipolar affective disorder, currently depressed, moderate Reason for Exam Vitamin D deficiency Performed By: #### T HYROID SC, [id number], CBC, URMACRERAT, CMP, FE and TIBC, SHAMA, LIPID, LDLD ####[address]#### HIV SCREEN, TOXASSURE ####[facility] , Creatinine [Mass/Vol] 0.63 mg/dL Normal 0.60-1.20 [facility] Comment on above: Order Comment: Reaso n for Exam Urinary frequency;Medication management;Anxiety;Microscopic Reason for Exam Microscopic hematuria;Low iron Reason for Exam Bipolar affective disorder, currently depressed, moderate Reason for Exam Vitamin D deficiency Performed By: #### T HYROID SC, [id number], CBC, URMACRERAT, CMP, FE and TIBC, SHAMA, LIPID, LDLD ####[address]#### HIV SCREEN, TOXASSURE ####[facility] , GFR/1.73 sq M.predicted MDRD (S/P/Bld) [Vol rate/Area] mL/min/{1.73_m2} Normal [facility] Comment on above: Order Comment: Reaso n for Exam Urinary frequency;Medication management;Anxiety;Microscopic Reason for Exam Microscopic hematuria;Low iron Reason for Exam Bipolar affective disorder, currently depressed, moderate Reason for Exam Vitamin D deficiency Performed By: #### T HYROID SC, [id number], CBC, URMACRERAT, CMP, FE and TIBC, SHAMA, LIPID, LDLD ####[place] [address] [place]#### HIV SCREEN, TOXASSURE ####[facility] , Globulin (S) [Mass/Vol] 2.9 g/dL Normal [facility] Comment on above: Order Comment: Reaso n for Exam Urinary frequency;Medication management;Anxiety;Microscopic Reason for Exam Microscopic hematuria;Low iron Reason for Exam Bipolar affective disorder, currently depressed, moderate Reason for Exam Vitamin D deficiency Performed By: #### T HYROID SC, [id number], CBC, URMACRERAT, CMP, FE and TIBC, SHAMA, LIPID, LDLD ####[place] [id number] [address]#### HIV SCREEN, TOXASSURE ####[facility] , Glucose [Mass/Vol] 90 mg/dL Normal 70-100 [facility] Comment on above: Order Comment: Reaso n for Exam Urinary frequency;Medication management;Anxiety;Microscopic Reason for Exam Microscopic hematuria;Low iron Reason for Exam Bipolar affective disorder, currently depressed, moderate Reason for Exam Vitamin D deficiency Result Comment: [facility] Glucose Reference Range is dependent on time and content of last meal. Glucose of more than 200 mg/dL in a nonstressed, ambulatory subject supports the diagnosis of Diabetes Mellitus. ADA recommended reference range Performed By: #### T HYROID SC, [id number], CBC, URMACRERAT, CMP, FE and TIBC, SHAMA, LIPID, LDLD ####[address]#### HIV SCREEN, TOXASSURE ####[facility] , Potassium [Moles/Vol] 3.9 mmol/L Normal 3.5-5.1 [facility] Comment on above: Order Comment: Reaso n for Exam Urinary frequency;Medication management;Anxiety;Microscopic Reason for Exam Microscopic hematuria;Low iron Reason for Exam Bipolar affective disorder, currently depressed, moderate Reason for Exam Vitamin D deficiency Performed By: #### T HYROID SC, [id number], CBC, URMACRERAT, CMP, FE and TIBC, SHAMA, LIPID, LDLD ####[place] [address] [place]#### HIV SCREEN, TOXASSURE ####[facility] , Protein [Mass/Vol] 7.1 g/dL Normal 6.4-8.9 [facility] Comment on above: Order Comment: Reaso n for Exam Urinary frequency;Medication management;Anxiety;Microscopic Reason for Exam Microscopic hematuria;Low iron Reason for Exam Bipolar affective disorder, currently depressed, moderate Reason for Exam Vitamin D deficiency Performed By: #### T HYROID SC, [id number], CBC, URMACRERAT, CMP, FE and TIBC, SHAMA, LIPID, LDLD ####[place] [id number] [address]#### HIV SCREEN, TOXASSURE ####[facility] , Sodium [Moles/Vol] 139 mmol/L Normal 136-145 [facility] Comment on above: Order Comment: Reaso n for Exam Urinary frequency;Medication management;Anxiety;Microscopic Reason for Exam Microscopic hematuria;Low iron Reason for Exam Bipolar affective disorder, currently depressed, moderate Reason for Exam Vitamin D deficiency Performed By: #### T HYROID SC, [id number], CBC, URMACRERAT, CMP, FE and TIBC, SHAMA, LIPID, LDLD ####[place] [id number] [address]#### HIV SCREEN, TOXASSURE ####[facility] , Urea nitrogen [Mass/Vol] 14 mg/dL Normal 7-25 [facility] Comment on above: Order Comment: Reaso n for Exam Urinary frequency;Medication management;Anxiety;Microscopic Reason for Exam Microscopic hematuria;Low iron Reason for Exam Bipolar affective disorder, currently depressed, moderate Reason for Exam Vitamin D deficiency Performed By: #### T HYROID SC, [id number], CBC, URMACRERAT, CMP, FE and TIBC, SHAMA, LIPID, LDLD ####[place] [address] [place]#### HIV SCREEN, TOXASSURE ####[facility] , Ferritinon 06-09-2023 Ferritin [Mass/Vol] 78.9 ng/mL Normal 11.0-306.8 [facility] Comment on above: Order Comment: Reaso n for Exam Primary hypertension Performed By: #### C BC, UA, T3F, CMP, FE and TIBC, SHAMA, LIPID, [id number], TSH3, FSH, [id number], CUU #### [facility] [address] #### LH, ESTRADIOL #### [facility] , HIV 1/O/2 Antigen/Antibodyon 06-09-2023 HIV Screen 4th Generation Non-Reactive Normal Non Reactive [facility] Comment on above: Order Comment: Reaso n for Exam Primary hypertension Result Comment: HIV Negative HIV-1/HIV-2 antibodies and HIV-1 p24 antigen were NOT detected. There is no laboratory evidence of HIV infection. Performed at: [facility] [id number] Tooth Cutter Pinion: Kurtis Gallegos PhD, Phone: [phone] PERFORMED BY: [place] [address] PATHOLOGIST EFFICIENCY MINER PALOMO WESLEY M.D. Performed By: #### C BC, UA, T3F, CMP, FE and TIBC, SHAMA, LIPID, [id number], TSH3, FSH, [id number], CUU #### [address] #### LH, ESTRADIOL #### [facility] , Iron and TIBC Profileon % Iron Saturation 22.1 % Normal 20-50 [facility] Comment on above: Order Comment: Reaso n for Exam Urinary frequency;Medication management;Anxiety;Microscopic Reason for Exam Microscopic hematuria;Low iron Reason for Exam Bipolar affective disorder, currently depressed, moderate Reason for Exam Vitamin D deficiency Performed By: #### T HYROID SC, [id number], CBC, URMACRERAT, CMP, FE and TIBC, SHAMA, LIPID, LDLD ####[facility]#### HIV SCREEN, TOXASSURE ####[facility] , Iron [Mass/Vol] 93 ug/dL Normal 50-212 [facility] Comment on above: Order Comment: Reaso n for Exam Urinary frequency;Medication management;Anxiety;Microscopic Reason for Exam Microscopic hematuria;Low iron Reason for Exam Bipolar affective disorder, currently depressed, moderate Reason for Exam Vitamin D deficiency Performed By: #### T HYROID SC, [id number], CBC, URMACRERAT, CMP, FE and TIBC, SHAMA, LIPID, LDLD ####[place] [id number] [address]#### HIV SCREEN, TOXASSURE ####[facility] , Total Iron Binding Capacity 420 ug/dL Normal 255-450 [facility] Comment on above: Order Comment: Reaso n for Exam Urinary frequency;Medication management;Anxiety;Microscopic Reason for Exam Microscopic hematuria;Low iron Reason for Exam Bipolar affective disorder, currently depressed, moderate Reason for Exam Vitamin D deficiency Performed By: #### T HYROID SC, [id number], CBC, URMACRERAT, CMP, FE and TIBC, SHAMA, LIPID, LDLD ####[address]#### HIV SCREEN, TOXASSURE ####[facility] , Transferrin [Mass/Vol] 300 mg/dL Normal 203-362 [facility] Comment on above: Order Comment: Reaso n for Exam Urinary frequency;Medication management;Anxiety;Microscopic Reason for Exam Microscopic hematuria;Low iron Reason for Exam Bipolar affective disorder, currently depressed, moderate Reason for Exam Vitamin D deficiency Performed By: #### T HYROID SC, [id number], CBC, URMACRERAT, CMP, FE and TIBC, SHAMA, LIPID, LDLD ####[address]#### HIV SCREEN, TOXASSURE ####[facility] , LDL Cholesterol Measuredon 0 06-09-2023 LDL Cholesterol Measured 122 mg/dL High 0-100 [facility] Comment on above: Order Comment: Reaso n for Exam Primary hypertension Result Comment: LDL ATP III CLASSIFICATION LDL less than 100 mg/dL Optimal LDL 100-129 mg/dL Near or above optimal LDL 130-159 mg/dL Borderline high LDL 160-189 mg/dL High LDL greater than 189 mg/dL Very high Performed By: #### C BC, UA, T3F, CMP, FE and TIBC, SHAMA, LIPID, [id number], TSH3, FSH, [id number], CUU #### [facility] [address] [place] [address] [place] #### LH, ESTRADIOL #### [facility] , Lipid Panelon 06-09-2023 Cholesterol [Mass/Vol] 216 mg/dL High 140-200 Th e [facility] Comment on above: Order Comment: Reaso n for Exam Primary hypertension Result Comment: Chol less than 200 mg/dl low risk Chol 201-239 mg/dl borderline risk Chol 240 mg/dl and greater high risk Performed By: #### C BC, UA, T3F, CMP, FE and TIBC, SHAMA, LIPID, [id number], TSH3, FSH, [id number], CUU #### [place] [address] [place] #### LH, ESTRADIOL #### [facility] , Cholesterol in HDL [Mass/Vol] 69 mg/dL Normal 23-92 [facility] Comment on above: Order Comment: Reaso n for Exam Primary hypertension Result Comment: HDL CHOL ATP-III CLASSIFICATION Cardiovascular Risk HDL > or equal to 60 mg/dL LOW HDL < 40 mg/dL HIGH Performed By: #### C BC, UA, T3F, CMP, FE and TIBC, SHAMA, LIPID, [id number], TSH3, FSH, [id number], CUU #### [facility] [address] [place] [address] [place] #### LH, ESTRADIOL #### [facility] , Cholesterol.total/Chol esterol in HDL [Mass ratio] 3.1 {ratio} Normal <5.0 [facility] Comment on above: Order Comment: Reaso n for Exam Primary hypertension Performed By: #### C BC, UA, T3F, CMP, FE and TIBC, SHAMA, LIPID, [id number], TSH3, FSH, [id number], CUU #### [facility] [address] [place] [address] [place] #### LH, ESTRADIOL #### [facility] , LDL Cholesterol,Calculated Not performed Normal 0-100 [facility] Comment on above: Order Comment: Reaso n for Exam Primary hypertension Performed By: #### C BC, UA, T3F, CMP, FE and TIBC, SHAMA, LIPID, [id number], TSH3, FSH, [id number], CUU #### [place] [address] [place] #### LH, ESTRADIOL #### [facility] , Triglyceride w/Reflex 443 mg/dL High 0-149 [facility] Comment on above: Order Comment: Reaso n for Exam Primary hypertension Result Comment: TRIG ATP III CLASSIFICATION TRIG less than 150 mg/dL Normal TRIG 150-199 mg/dL Borderline high TRIG 200-500 mg/dL High TRIG greater than 500 mg/dL Very high Standard traceable to the Center for Disease Conrtrol and Prevention (CDC) test method. If the triglyceride result is greater than 400, LDLC and related calculations cannot be calculated and resulted. Performed By: #### C BC, UA, T3F, CMP, FE and TIBC, SHAMA, LIPID, [id number], TSH3, FSH, [id number], CUU #### [facility] [address] [place] [address] [place] #### LH, ESTRADIOL #### [facility] , VLDL CHOLESTEROL 88 mg/dL Normal [facility] Comment on above: Order Comment: Reaso n for Exam Primary hypertension Performed By: #### C BC, UA, T3F, CMP, FE and TIBC, SHAMA, LIPID, [id number], TSH3, FSH, [id number], CUU #### [place] [address] [place] #### LH, ESTRADIOL #### [facility] , MicroAlb Creat Ratio,Uon Albumin DL <= 20 mg/L (U) [Mass/Vol] 2.1 mg/dL High 0.0-1.8 [facility] Comment on above: Order Comment: Reaso n for Exam Urinary frequency;Microscopic hematuria Performed By: #### T HYROID SC, [id number], CBC, URMACRERAT, CMP, FE and TIBC, SHMAA, LIPID, LDLD ####[place] [id number] [address]#### HIV SCREEN, TOXASSURE ####[facility] , Creatinine, Urine (Random) 66.0 mg/dL High 11.0-20.0 [facility] Comment on above: Order Comment: Reaso n for Exam Urinary frequency;Microscopic hematuria Performed By: #### T HYROID SC, [id number], CBC, URMACRERAT, CMP, FE and TIBC, SHAMA, LIPID, LDLD ####[place] [address] [address]#### HIV SCREEN, TOXASSURE ####[facility] , Microalbumin/Creatinin e Ratio 31.0 mg/g High 0.0-30.0 [facility] Comment on above: Order Comment: Reaso n for Exam Urinary frequency;Microscopic hematuria Result Comment: 30-3 00 mg/g indicates an increased risk for diabetic nephropathy. Greater than 300 mg/g is consistent with clinical nephropathy. (Am. J. Kidney Disease 1994, 25:107) PERFORMED BY: [facility] [address] [place] [id number] PATHOLOGIST EFFICIENCY MINER PALOMO WESLEY M.D. Performed By: #### T HYROID SC, [id number], CBC, URMACRERAT, CMP, FE and TIBC, SHAMA, LIPID, LDLD ####[place] [address] [address]#### HIV SCREEN, TOXASSURE ####[facility] , THYROID SCREENon 06-09-2023 Free T4 [Mass/Vol] 0.68 ng/dL Normal 0.61-1.12 [facility] Comment on above: Order Comment: Reaso n for Exam Primary hypertension Performed By: #### C BC, UA, T3F, CMP, FE and TIBC, SHAMA, LIPID, [id number], TSH3, FSH, [id number], CUU #### [facility] [address] [place] [address] [place] #### LH, ESTRADIOL #### [facility] , TSH Qn 2.09 m[IU]/L Normal 0.45-5.33 [facility] Comment on above: Order Comment: Reaso n for Exam Primary hypertension Performed By: #### C BC, UA, T3F, CMP, FE and TIBC, SHAMA, LIPID, [id number], TSH3, FSH, [id number], CUU #### [facility] [address] [place] [address] [place] #### LH, ESTRADIOL #### [facility] , Toxassure, Urineon 4 Toxassure, Urine Summary FINAL Normal . [facility] Comment on above: Order Comment: Reaso n for Exam Primary hypertension Result Comment: ===== TOXASSURE COMP DRUG [...] test is not intended to distinguish between widoz-1-kulhkwybrwddnepwzamf, the predominant form of THC in most herbal or marijuana-based products, and lnjsf-1-wmzafgkweupoggqwcueq. Gabapentin PRESENT Cyclobenzaprine PRESENT Desmethylcyclobenzaprine PRESENT Desmethylcyclobenzaprine is an expected metabolite of cyclobenzaprine. Naproxen PRESENT ===== Test Result Flag Units Ref Range Creatinine 63 mg/dL >=20 ===== Declared Medications: Medication list was not provided. ===== For clinical consultation, please call . ===== Performed at: [facility] [address] [id number] Tooth Cutter Pinion: Ana Munoz [facility], Phone: [phone] PERFORMED BY: [place] [address] PATHOLOGIST EFFICIENCY MINER PALOMO WESLEY M.D. Performed By: #### C BC, UA, T3F, CMP, FE and TIBC, SHAMA, LIPID, [id number], TSH3, FSH, [id number], CUU #### [address] #### LH, ESTRADIOL #### [facility] , Vitamin D 25 Hydroxy Totalon 06-09-2023 Vitamin D 25 Hydroxy Total 19.8 ng/mL Low 30-100 [facility] Comment on above: Order Comment: Reaso n for Exam Primary hypertension Result Comment: IDRIS MIN D STATUS 25(OH)VITAMIN D RANGE (ng/mL) Deficient <20 Insufficient 20 to <30 Sufficient 30 to 100 Reference: Baron MF,Suze NC, Abdiel MAXWELL, et al. Evaluation,treatment, and prevention of vitamin D deficiency; an Endocrine Society clinical practice guideline. JCEM. 2010; 96(7):1911-30. PERFORMED BY: [address] [address] PATHOLOGIST EFFICIENCY MINER PALOMO WESLEY M.D. Performed By: #### C BC, UA, T3F, CMP, FE and TIBC, SHAMA, LIPID, [id number], TSH3, FSH, [id number], CUU #### [place] [id number] [place] #### LH, ESTRADIOL #### [facility] , Formson 04-26-2023 Forms [id number]#1. 00TIFF Normal [facility] [place] Myocardial Spect Rest/Str ess 1 Dayon [...] Stress Dose (mCi Tc99M Cardiolite): 28.9 Normal [facility] Stress EKG Tracingson 2023 Stress EKG Tracings [id number] 02 [id number]#1. 00TIFF Normal [facility] Consent for Treatmenton 04-05 Consent for Treatment [id number]#1.0 0TIFF [facility]/Cl inic Noteon 04-11-2023 [...] with voice recognition artificial intelligence software, specifically [employer], [employer] and or [employer]of[employer]. Substitutions may have occurred with voice recognition and artificial intelligence software. Documentation services were performed after patient or guardian consented to allow [employer] to record this visit. ANDERSON health care marketing specialist and provider reviewed before signing. ANDERSON: [...] 3 refi (more content not included)... Normal [facility] Comment on above: Result Comment: Elec tronically Signed By: Jose PATRICK, Ramone Butt\.br\Date and Time Signed: 04/11/23 19:52 EST\.br\Electronically Co-Signed By: Janie Villarreal\.br\Date and Time Co-Signed: 03/22/23 14:46 EST US renal BIon 04-01-2023 US renal BI [facility] Main [address] [address] Ultrasound Report Signed Patient: Isela Craig MR#: [id number] : 1970 Acct:[id number] Age/Sex: 52 / F ADM Date: 04/01/23 Loc: Room: Type: [facility] Attending Dr: Jes Cruz WOOD HEEL CEMENTER-C Ordering Provider: Jes Cruz Date of Service: 04/01/23 US/US renal BI: R31.9 ([id number]) US/US bladder: R31.9 Copies to: Jes Cruz [...] Johns Jr., D.O.04/01/2023 3:16 PM Dictation Location: [place] [address] Tech: Chloe Delcid Transcribed By: FLORES 04/01/231515 Dictated By: Freddy Johns Jr, DO 04/01/231511 Signed By: 04/01/23 151 Normal [facility] XR KUBon 04-01-[address] [address] XRay Report Signed Patient: Isela Craig MR#: [id number] : 1970 Acct:[id number] Age/Sex: 52 / F ADM Date: 04/01/23 Loc: Room: Type: [facility] Attending Dr: Jes Cruz WOOD HEEL CEMENTER-C Copies to: Jes Cruz Ordering Provider: Jes [...] Shae Guzman M.D.04/01/2023 3:38 PM Dictation Location: [facility]- Transcribed By: [facility] 04/01/23 1538 Dictated By: Shae Guzman MD 04/01/23 1536 Signed By: 04/01/23 1538 Normal [facility] Insurance Correspondenceon 05-24-2022 Insurance Correspondence [id number]#1.0 0TIFF Normal [facility] Consent for Treatmenton 03-05 Consent for Treatment [id number]#1.0 0TIFF Normal [facility] Physician Orderon 03-22-2023 Physician Order [id number] .00TIFF Normal [facility] Referrals Officeon Referrals Office [id number]#1 .00TIFF Normal [facility] COVID Quick Testingon 2022 Result Negative [facility] Other Quick Strepon 12-15-2022 S. pyogenes Org specific cx Ql (Throat) Negative [facility] Other Quick Strep [facility] Other COVID + FLU Quick Testingon 10-14-2022 SARS-CoV-2 (COVID-19) RNA AISSATOU+probe Ql (Unsp spec) Negative [facility] Other COVID + FLU Quick Testing Negative [facility] Other Quick Strepon 10-14-2022 S. pyogenes Org specific cx Ql (Throat) Negative [facility] Other Quick Strep [facility] Other Office Visit (Cardiology)on 06-24-2022 Follow-up visit Diagnoses/Problems Assessed Costochondritis (733.6) (M94.0) Palpitations (785.1) (R00.2) For the most part brief and fleeting, seem most consistent with PVC. Coronary artery disease involving [place] coronary artery of [place] heart without angina pectoris (414.01) (I25.10) Mar [...] Current smoker Tobacco Use Screening; Status:Complete; Done: [id number] Patient Instructions Please bring all medicines, vitamins, [...] contact the office if new symptoms arise. 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 Last week she presented to [facility] due to chest pain and dizziness. [...] and fluttering . 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 Due to blood pressure and palpitations [...] Recorded: 24Jun2022 09:32AM Heart Rate88, R Radial Cwbzkbyp258, RUE, Si (more content not included)... Normal [facility] Tobacco Screening.on 023 Adult depression screening assessment No [facility] 250 DO Work Phone: Tobacco use status CPHS a) Yes [facility] 250 DO Work Phone: Tobacco Screening. Yes [facility] 250 DO Work Phone: Alanine aminotransferase [En zymatic activity/volume] in Serum or PlasmaOrdered By: Jes Cruz on 06-19-2022 ALT [Catalytic activity/Vol] 11 U/L [facility] Albumin [Mass/volume] in Ser um or Plasma by Bromocresol green (BCG) dye binding methoOrdered By: Jes Cruz on 06-19-2022 Albumin BCG dye [Mass/Vol] 4.0 g/dL 3.5-5.7 [facility] Alkaline phosphatase [Enzyma tic activity/volume] in Serum or PlasmaOrdered By: Jes Cruz on 06-19-2022 ALP [Catalytic activity/Vol] 70 U/L 34-104 [facility] Aspartate aminotransferase [ Enzymatic activity/volume] in Serum or PlasmaOrdered By: Jes Cruz on 06-19-2022 AST [Catalytic activity/Vol] 11 U/L 13-39 [facility] Basophils Auto (Bld) [#/Vol] Ordered By: Jes Cruz on 06-19-2022 Basophils (Bld) [#/Vol] 0.1 10*3/uL 0.0-0.2 [facility] Basophils/100 WBC Auto (Bld) Ordered By: Jes Cruz on 06-19-2022 Basophils/100 WBC (Bld) 1.2 % . [facility] Bilirubin.total [Mass/volume ] in Serum or PlasmaOrdered By: Jes Cruz on 06-19-2022 Bilirubin [Mass/Vol] 0.2 mg/dL 0.3-1.0 [facility] C reactive protein [Mass/vol ume] in Serum or Plasma by High sensitivity methodOrdered By: Jes Cruz on 06-19-2022 CRP High sensitivity method [Mass/Vol] 0.4 mg/L 0.0-0.9 [facility] Comment on above: Cardiovascular Risk Classification [...] on 06-19-2022 Calcium [Mass/Vol] 9.1 mg/dL 8.6-10.3 [facility] Carbon dioxide, total [Moles /volume] in Serum or PlasmaOrdered By: Jes Cruz on 06-19-2022 CO2 [Moles/Vol] 24.4 mmol/L 21.0-31.0 [facility] Chloride [Moles/volume] in S shanna or PlasmaOrdered By: Jes Cruz on 06-19-2022 Chloride [Moles/Vol] 108 mmol/L 98-107 [facility] Cholesterol [Mass/volume] in Serum or PlasmaOrdered By: Jes Cruz on 06-19-2022 Cholesterol [Mass/Vol] 190 mg/dL 140-200 [facility] Comment on above: Chol less than 200 m g/dl low riskChol 201-239 mg/dl borderline riskChol 240 mg/dl and greater high risk Cholesterol in LDL Calc [Mas s/Vol]Ordered By: Jes Cruz on 06-19-2022 Cholesterol in LDL [Mass/Vol] 74 mg/dL 0-100 [facility] Comment on above: LDL ATP III CLASSIFI CATIONLDL less than 100 mg/dL OptimalLDL 100-129 mg/dL Near or above optimalLDL 130-159 mg/dL Borderline highLDL 160-189 mg/dL HighLDL greater than 189 mg/dL Very high Cholesterol in VLDL Calc [Ma ss/Vol]Ordered By: Jes Cruz on 06-19-2022 Cholesterol in VLDL [Mass/Vol] 48 mg/dL [facility] Creatine kinase [Enzymatic a ctivity/volume] in Serum or PlasmaOrdered By: Jes Cruz on 06-19-2022 CK [Catalytic activity/Vol] 35 U/L 30-223 [facility] Creatine kinase.MB [Mass/vol ume] in Serum or PlasmaOrdered By: Jes Cruz on 06-19-2022 CK.MB [Mass/Vol] 2.3 ng/mL 0.6-6.3 [facility] Creatinine [Mass/volume] in Serum or PlasmaOrdered By: Jes Cruz on 06-19-2022 Creatinine [Mass/Vol] 0.79 mg/dL 0.60-1.20 [facility] Eosinophils Auto (Bld) [#/Vo l]Ordered By: Jes Cruz on 06-19-2022 Eosinophils (Bld) [#/Vol] 0.2 10*3/uL 0.0-0.45 [facility] Eosinophils/100 WBC Auto (Bl d)Ordered By: Jes Cruz on 06-19-2022 Eosinophils/100 WBC (Bld) 2.5 % . [facility] Erythrocyte distribution wid th Auto (RBC) [Ratio]Ordered By: Jes Cruz on 06-19-2022 Erythrocyte distribution width (RBC) [Ratio] 13.2 % 11.9-15.3 [facility] Globulin Calc (S) [Mass/Vol] Ordered By: Jes Cruz on 06-19-2022 Globulin (S) [Mass/Vol] 2.3 g/dL [facility] Glucose [Mass/volume] in Ser um or PlasmaOrdered By: Jes Cruz on 06-19-2022 Glucose [Mass/Vol] 94 mg/dL 74-109 [facility] Comment on above: ADA recommended refe rence rangeRandom Glucose Reference Range is dependent on time and content of last meal. Glucose of more than 200 mg/dL in a nonstressed, ambulatory subject supports the diagnosis of Diabetes Mellitus. Hematocrit Auto (Bld) [Volum e fraction]Ordered By: Jes Cruz on 06-19-2022 Hematocrit (Bld) [Volume fraction] 39.3 % 34.0-46.4 [facility] Hemoglobin [Mass/volume] in BloodOrdered By: Jes Cruz on 06-19-2022 Hemoglobin (Bld) [Mass/Vol] 13.1 g/dL 11.8-15.4 [facility] Laboratory - Chemistry and C hemistry - challengeOrdered By: Jes Cruz on 06-19-2022 GFR/1.73 sq M.predicted MDRD (S/P/Bld) [Vol rate/Area] mL/min/{1.73_m2} [facility] Leukocytes [#/volume] correc ricardo for nucleated erythrocytes in Blood by Automated counOrdered By: Jes Cruz on 06-19-2022 WBC corrected for nucl RBC Auto (Bld) [#/Vol] 8.2 10*3/uL 3.8-11.6 [facility] Lymphocytes Auto (Bld) [#/Vo l]Ordered By: Jes Cruz on 06-19-2022 Lymphocytes (Bld) [#/Vol] 2.5 10*3/uL 1.00-4.8 [facility] Lymphocytes/100 WBC Auto (Bl d)Ordered By: Jes Cruz on 06-19-2022 Lymphocytes/100 WBC (Bld) 30.3 % . [facility] MCH Auto (RBC) [Entitic mass ]Ordered By: Jes Cruz on 06-19-2022 MCH (RBC) [Entitic mass] 33.2 pg 24.7-34.3 [facility] MCHC Auto (RBC) [Mass/Vol]Or dered By: Jes Cruz on 06-19-2022 MCHC (RBC) [Mass/Vol] 33.4 g/dL 32.0-35.0 [facility] MCV Auto (RBC) [Entitic vol] Ordered By: Jes Cruz on 06-19-2022 MCV (RBC) [Entitic vol] 99.5 fL 80-100 [facility] Monocytes Auto (Bld) [#/Vol] Ordered By: Jes Cruz on 06-19-2022 Monocytes (Bld) [#/Vol] 1.0 10*3/uL 0.0-0.8 [facility] Monocytes/100 WBC Auto (Bld) Ordered By: Jes Cruz on 06-19-2022 Monocytes/100 WBC (Bld) 11.6 % . [facility] Natriuretic peptide B [Mass/ Vol]Ordered By: Jes Cruz on 06-19-2022 Natriuretic peptide B (Bld) [Mass/Vol] 87.0 pg/mL 5-100 [facility] Neutrophils Auto (Bld) [#/Vo l]Ordered By: Jes Cruz on 06-19-2022 Neutrophils (Bld) [#/Vol] 4.5 10*3/uL 1.8-7.7 [facility] Neutrophils/100 WBC Auto (Bl d)Ordered By: Jes Cruz on 06-19-2022 Neutrophils/100 WBC (Bld) 54.4 % . [facility] No Panel InformationOrdered By: Jes Cruz on 06-19-2022 Pharmacy Creatinine Clearance (Chem N/A [facility] Nucleated erythrocytes [Pres ence] in Blood by Automated countOrdered By: Jes Cruz on 06-19-2022 Nucleated RBC Auto Ql (Bld) 0.2 /100{WBC} 0-0.5 [facility] Platelet mean volume Auto (B ld) [Entitic vol]Ordered By: Jes Cruz on 06-19-2022 Platelet mean volume (Bld) [Entitic vol] 10.2 fL 6.3-10.7 [facility] Platelets Auto (Bld) [#/Vol] Ordered By: Jes Cruz on 06-19-2022 Platelets (Bld) [#/Vol] 297 10*3/uL 150-450 [facility] Potassium [Moles/volume] in Serum or PlasmaOrdered By: Jes Cruz on 06-19-2022 Potassium [Moles/Vol] 4.3 mmol/L 3.5-5.1 [facility] Protein [Mass/volume] in Ser um or PlasmaOrdered By: Jes Cruz on 06-19-2022 Protein [Mass/Vol] 6.3 g/dL 6.4-8.9 [facility] RBC Auto (Bld) [#/Vol]Ordere d By: Jes Cruz on 06-19-2022 RBC (Bld) [#/Vol] 3.95 10*6/uL 3.60-5.[address] [facility] Serum or plasma albumin/glob ulin mass ratioOrdered By: Jes Cruz on 06-19-2022 Albumin/Globulin [Mass ratio] 1.7 {ratio} [facility] Serum or plasma anion gap de terminationOrdered By: Jes Cruz on 06-19-2022 Anion gap [Moles/Vol] 10.9 mmol/L 6.0-15.0 [facility] Serum or plasma creatine kin ase MB (CKMB)/total creatine kinase (CK) ratio by calculaOrdered By: Jes Cruz on 06-19-2022 CK.MB Calc [Catalytic fraction] 6.5 % 0.00-2.50 [facility] Serum or plasma high density lipoprotein (HDL) cholesterol measurementOrdered By: Jes Cruz on 06-19-2022 Cholesterol in HDL [Mass/Vol] 68 mg/dL 35-85 [facility] Comment on above: HDL CHOL ATP-III CLA SSIFICATION Cardiovascular RiskHDL > or equal to 60 mg/dL LOWHDL < 40 mg/dL HIGH Serum or plasma total choles terol/high density lipoprotein (HDL) cholesterol mass ratOrdered By: Jes Cruz on 06-19-2022 Cholesterol.total/Chol esterol in HDL [Mass ratio] 2.8 {ratio} <5.0 [facility] Sodium [Moles/volume] in Ser um or PlasmaOrdered By: Jes Cruz on 06-19-2022 Sodium [Moles/Vol] 139 mmol/L 136-145 [facility] Thyrotropin [Units/volume] i n Serum or PlasmaOrdered By: Jes Cruz on 06-19-2022 TSH Qn 2.33 m[IU]/L 0.45-5.33 [facility] Thyroxine (T4) free [Mass/vo lume] in Serum or PlasmaOrdered By: Jes Cruz on 06-19-2022 Free T4 [Mass/Vol] 0.63 ng/dL 0.61-1.12 [facility] Triglyceride [Mass/volume] i n Serum or PlasmaOrdered By: Jes Cruz on 06-19-2022 Triglyceride [Mass/Vol] 241 mg/dL 0-149 [facility] Comment on above: TRIG ATP III CLASSIF ICATIONTRIG less than 150 mg/dL NormalTRIG 150-199 mg/dL Borderline highTRIG 200-500 mg/dL High TRIG greater than 500 mg/dL Very highStandard traceable to the Center for Disease Conrtrol and Prevention (CDC) test method. Urea nitrogen [Mass/volume] in Serum or PlasmaOrdered By: Jes Cruz on 06-19-2022 Urea nitrogen [Mass/Vol] 9 mg/dL 7-25 [facility] WBC Auto (Bld) [#/Vol]Ordere d By: Jes Cruz on 03-17-2023 WBC (Bld) [#/Vol] 8.2 10*3/uL 3.8-11.6 [facility] CARDIAC BJORN ADMITon 023 CK [Catalytic activity/Vol] 54 U/L Normal 26-192 [facility] Comment on above: Performed By: #### C MADM, CMP #### [facility] [address] [place] [address] Dr. Howard Guthrie CK.MB [Mass/Vol] 1.70 ng/mL Normal <=3.[address] [facility] Comment on above: Performed By: #### C MADM, CMP #### [facility] [address] [place] [address] Dr. Howard Guthrie HSTROP <4.0 Normal 4.0-51.3 [facility] Comment on above: Result Comment: CUT- OFF POINTS HAVE BEEN ESTABLISHED BASED ON THE FOURTH UNIVERSAL DEFINITIONS OF MYOCARDIAL INFARCTION. THE UPPER REFERENCE LIMIT (URL) OF TROPONIN, DEFINED THE 99TH PERCENTILE OF cTnI DISTRIBUTION IN A REFERENCE POPULATION, HAS BEEN CONFIRMED THE DECISION THRESHOLD FOR VT DIAGNOSIS. Performed By: #### C MADM, CMP #### [facility] [address] [place] [address] Dr. Howard Guthrie NYA 23 ng/mL Normal 9-82 [facility] Comment on above: Performed By: #### C MADM, CMP #### [facility] [address] [place] [address] Dr. Howard Guthrie CBC AUTO DIFFon 06-17-2022 BASO # 0.1 103/ul Normal 0.0-0.1 [facility] Comment on above: Performed By: #### C BC #### [facility] [address] [place] [address] Dr. Howard Guthrie Basophils/100 WBC (Bld) 1.0 % Normal 0.2-2.0 [facility] Comment on above: Performed By: #### C BC #### [facility] [address] [place] [address] Dr. Howard Guthrie EO # 0.2 103/ul Normal 0.0-0.7 [facility] Comment on above: Performed By: #### C BC #### [facility] [address] [place] [address] Dr. Howard Guthrie Eosinophils/100 WBC (Bld) 2.9 % Normal 0.9-7.0 [facility] Comment on above: Performed By: #### C BC #### [facility] [address] [place] [address] Dr. Howard Guthrie Erythrocyte distribution width (RBC) [Ratio] 12.7 % Normal 11.0-15.0 [facility] Comment on above: Performed By: #### C BC #### [facility] [address] [place] [address] Dr. Howard Guthrie Hematocrit (Bld) [Volume fraction] 42.5 % Normal 36.0-48.0 [facility] Comment on above: Performed By: #### C BC #### [facility] [address] [place] [address] Dr. Howard Guthrie Hemoglobin (Bld) [Mass/Vol] 14.7 g/dL Normal 12.0-16.0 [facility] Comment on above: Performed By: #### C BC #### [facility] [address] [place] [address] Dr. Howard Guthrie IG # 0.02 10e3/ul Normal 0.00-0.03 [facility] Comment on above: Performed By: #### C BC #### [facility] [address] [place] [address] Dr. Howard Guthrie IG % 0.3 % Normal 0.0-0.5 [facility] Comment on above: Performed By: #### C BC #### [facility] [address] [place] [address] Dr. Howard Guthrie LYMPH # 2.1 103/ul Normal 1.2-3.8 [facility] Comment on above: Performed By: #### C BC #### [facility] [address] [place] [address] Dr. Howard Guthrie Lymphocytes/100 WBC (Bld) 28.4 % Normal 20.5-60.0 [facility] Comment on above: Performed By: #### C BC #### [facility] [address] [place] [address] Dr. Howard Guthrie MANUAL DIFF REQ NO Normal [facility] Comment on above: Performed By: #### C BC #### [facility] [address] [place] [address] Dr. Howard Guthrie MCH (RBC) [Entitic mass] 33.1 pg Normal 26.7-34.0 [facility] Comment on above: Performed By: #### C BC #### [facility] [address] [place] [address] Dr. Howard Gutrhie MCHC (RBC) [Mass/Vol] 34.6 g/dL Normal 29.9-35.2 [facility] Comment on above: Performed By: #### C BC #### [facility] [address] [place] [address] Dr. Howard Guthrie MCV (RBC) [Entitic vol] 95.7 fL Normal 81.0-99.0 [facility] Comment on above: Performed By: #### C BC #### [facility] [address] [place] [address] Dr. Howard Guthrie MONO # 1.0 103/ul Critically high 0.3-0.8 [facility] Comment on above: Performed By: #### C BC #### [facility] [address] [place] [address] Dr. Howard Guthrie Monocytes/100 WBC (Bld) 13.1 % Critically high 1.7-12.0 [facility] Comment on above: Performed By: #### C BC #### [facility] [address] [place] [address] Dr. Howard Guthrie NEUT # 4.0 103/ul Normal 1.4-6.5 [facility] Comment on above: Performed By: #### C BC #### [facility] [address] [place] [address] Dr. Howard Guthrie Neutrophils/100 WBC (Bld) 54.3 % Normal 43.0-75.0 [facility] Comment on above: Performed By: #### C BC #### [facility] [address] [place] [address] [address] Howard Guthrie Platelet mean volume (Bld) [Entitic vol] 10.0 fL Normal 9.5-13.5 [facility] Comment on above: Performed By: #### C BC #### [facility] [address] [place] [address] [address] Howard Guthrie PLT 343 103/ul Normal 150-450 [facility] [facility] Comment on above: Performed By: #### C BC #### [facility] [address] [address] [address] Howard Guthrie RBC 4.44 106/ul Normal 4.20-5.40 [facility] Comment on above: Performed By: #### C BC #### [facility] [address] [place] [address] Dr. Howard Guthrie WBC 7.4 103/ul Normal 4.0-11.0 [facility] Comment on above: Performed By: #### C BC #### [facility] [address] [place] [address] Dr. Howard Guthrie D-DIMERon 06-17-2022 D-DIMER 0.43 mg/L FEU Normal <=0.59 The [facility] Comment on above: Performed By: #### D DIM #### [facility] [address] [place] [address] Dr. Howard Guthrie D-DIMER COMMENTS SEE BELOW Normal The [facility] Comment on above: Result Comment: [...] hospitalization. Performed By: #### D DIM #### [facility] [address] [place] [address] Dr. Howard Guthrie ER URINE PROFILEon 3 Bilirubin Ql (U) Negative Normal NEGATIVE The [facility] Comment on above: Performed By: #### U MICRO, ERUR #### [facility] [address] [address] [address] Howard Guthrie Clarity (U) CLEAR Normal CLEAR [facility] Comment on above: Performed By: #### U MICRO, ERUR #### [facility] [address] [address] [address] Howard Guthrie Color (U) LT. YELLOW Normal YELLOW [facility] Comment on above: Performed By: #### U MICRO, ERUR #### [facility] [address] [address] [address] Howard Guthrie ERUAHD A micrscopic examination will be performed if indicated. Normal [facility] Comment on above: Performed By: #### U MICRO, ERUR #### [facility] [address] [address] [address] Howard Guthrie Glucose Ql (U) Negative Normal NEGATIVE The [facility] Comment on above: Performed By: #### U MICRO, ERUR #### [facility] [address] [address] [address] Howard Guthrie Hemoglobin Ql (U) SMALL Abnormal NEGATIVE [facility] Comment on above: Performed By: #### U MICRO, ERUR #### [facility] [address] [address] [address] Howard Guthrie Ketones Ql (U) Negative Normal NEGATIVE The [facility] Comment on above: Performed By: #### U MICRO, ERUR #### [facility] [address] [address] [address] Howard Guthrie LEUKOCYTES Negative Normal NEGATIVE [facility] Comment on above: Performed By: #### U MICRO, ERUR #### [facility] [address] [address] [address] Howard Guthrie Nitrite Ql (U) Negative Normal NEGATIVE The [facility] Comment on above: Performed By: #### U MICRO, ERUR #### [facility] [address] [address] [address] Howard Guthrie pH (U) 7.0 [pH] Normal 5-9 [facility] Comment on above: Performed By: #### U MICRO, ERUR #### [facility] [address] [address] [address] Howard Guthrie SPEC GRAVITY 1.015 Normal 1.005-<=1.0 25 [facility] Comment on above: Performed By: #### U MICRO, ERUR #### [facility] [address] [place] [address] Dr. Howard Guthrie UA PROTEIN Negative Normal NEGATIVE/ TRACE [facility] Comment on above: Performed By: #### U MICRO, ERUR #### [facility] [address] [place] [address] Dr. Howard Guthrie UR MICRO IND INDICATED Normal [facility] Comment on above: Performed By: #### U MICRO, ERUR #### [facility] [address] [place] [address] Dr. Howard Guthrie Urobilinogen Qn (U) 0.2 {Abdiaziz'U}/dL Normal 0.2 - 1. 0 [facility] Comment on above: Performed By: #### U MICRO, ERUR #### [facility] [address] [place] [address] Dr. Howard Guthrie PROF 14(COMP METB)on 023 Albumin [Mass/Vol] 3.8 g/dL Normal 3.4-5.0 [facility] Comment on above: Performed By: #### C MADM, CMP #### [facility] [address] [place] [address] Dr. Howard Guthrie Albumin/Globulin [Mass ratio] 1.1 {ratio} Normal [facility] Comment on above: Performed By: #### C MADM, CMP #### [facility] [address] [place] [address] Dr. Howard Guthrie ALP [Catalytic activity/Vol] 96 U/L Normal 46-116 [facility] Comment on above: Performed By: #### C MADM, CMP #### [facility] [address] [place] [address] Dr. Howard Guthrie ALT [Catalytic activity/Vol] 19 U/L Normal 14-59 [facility] Comment on above: Performed By: #### C MADM, CMP #### [facility] [address] [address] [address] Howard Guthrie Anion gap [Moles/Vol] 11.2 mmol/L Normal [facility] Comment on above: Performed By: #### C MADM, CMP #### [facility] [address] [address] [address] Howard Guthrie AST [Catalytic activity/Vol] 19 U/L Normal 15-37 [facility] Comment on above: Performed By: #### C MADM, CMP #### [facility] [address] [address] [address] Howard Guthrie Bilirubin [Mass/Vol] 0.5 mg/dL Normal 0.2-1.0 [facility] Comment on above: Performed By: #### C MADM, CMP #### [facility] [address] [place] [address] Dr. Howard Guthrie Calcium [Mass/Vol] 8.8 mg/dL Normal 8.5-10.1 [facility] Comment on above: Performed By: #### C MADM, CMP #### [facility] [address] [place] [address] Dr. Howard Guthrie Chloride [Moles/Vol] 104 mmol/L Normal 98-107 [facility] Comment on above: Performed By: #### C MADM, CMP #### [facility] [address] [address] [address] Howard Guthrie CO2 [Moles/Vol] 24.1 mmol/L Normal 21.0-32.0 [facility] Comment on above: Performed By: #### C MADM, CMP #### [facility] [address] [place] [address] Dr. Howard Guthrie Creatinine [Mass/Vol] 0.73 mg/dL Normal 0.55-1.02 [facility] Comment on above: Performed By: #### C MADM, CMP #### [facility] [address] [address] [address] Howard Guthrie EGFR-AF DUTCH >60 Normal >=60 [facility] Comment on above: Performed By: #### C MADM, CMP #### [facility] [address] [address] [address] Howard Guthrie EGFR-NON AF DUTCH >60 Normal >=60 [facility] Comment on above: Performed By: #### C MADM, CMP #### [facility] [address] [address] [address] Howard Guthrie Globulin (S) [Mass/Vol] 3.6 g/dL Normal [facility] Comment on above: Performed By: #### C MADM, CMP #### [facility] [address] [place] [address] Dr. Howard Guthrie Glucose [Mass/Vol] 112 mg/dL Critically high 74-106 [facility] Comment on above: Performed By: #### C MADM, CMP #### [facility] [address] [place] [address] Dr. Howard Guthrie Potassium [Moles/Vol] 3.3 mmol/L Critically low 3.5-5.1 [facility] Comment on above: Performed By: #### C MADM, CMP #### [facility] [address] [place] [address] Dr. Howard Guthrie Protein [Mass/Vol] 7.4 g/dL Normal 6.4-8.2 [facility] Comment on above: Performed By: #### C MADM, CMP #### [facility] [address] [place] [address] Dr. Howard Guthrie Sodium [Moles/Vol] 136 mmol/L Normal 136-145 [facility] Comment on above: Performed By: #### C MADM, CMP #### [facility] [address] [place] [address] Dr. Howard Guthrie Urea nitrogen [Mass/Vol] 6.0 mg/dL Critically low 7.0-18.0 [facility] Comment on above: Performed By: #### C MADM, CMP #### [facility] [address] [place] [address] Dr. Howard Guthrie Urea nitrogen/Creatinine [Mass ratio] 8.2 mg/mg Normal [facility] Comment on above: Performed By: #### C MADM, CMP #### [facility] [address] [place] [address] Dr. Howard Guthrie TROPONIN, HIGH SENSITIVITYon 06-17-2022 HSTROP 4.6 pg/mL Normal 4.0-51.3 [facility] Comment on above: Result Comment: CUT- OFF POINTS HAVE BEEN ESTABLISHED BASED ON THE FOURTH UNIVERSAL DEFINITIONS OF MYOCARDIAL INFARCTION. THE UPPER REFERENCE LIMIT (URL) OF TROPONIN, DEFINED THE 99TH PERCENTILE OF cTnI DISTRIBUTION IN A REFERENCE POPULATION, HAS BEEN CONFIRMED THE DECISION THRESHOLD FOR [place] DIAGNOSIS. Performed By: #### H STROPN #### [facility] [address] [place] [address] Dr. Howard Guthrie URINE MICROSCOPIC ONLYon BACTERIA TRACE Abnormal NONE SEEN [facility] Comment on above: Performed By: #### U MICRO, ERUR #### [facility] [address] [place] [address] Dr. Howard Guthrie Bacteria identified Cx Nom (U) NOT INDICATED Normal [facility] Comment on above: Performed By: #### U MICRO, ERUR #### [facility] [address] [place] [address] Dr. Howard Guthrie CAST NONE SEEN Normal NONE SEEN [facility] Comment on above: Performed By: #### U MICRO, ERUR #### [facility] [address] [place] [address] Dr. Howard Guthrie Crystals LM Nom (Urine sed) NONE SEEN Normal NONE SEEN [facility] Comment on above: Performed By: #### U MICRO, ERUR #### [facility] [address] [place] [address] Dr. Howard Guthrie Epithelial cells LM Ql (Urine sed) FEW Abnormal NONE SEEN /RARE [facility] Comment on above: Performed By: #### U MICRO, ERUR #### [facility] [address] [place] [address] Dr. Howard Guthrie MUCOUS TRACE Abnormal NONE SEEN [facility] Comment on above: Performed By: #### U MICRO, ERUR #### [facility] [address] [address] [address] Howard Guthrie RBC 2-5 Abnormal 0-2 [facility] Comment on above: Performed By: #### U MICRO, ERUR #### [facility] [address] [address] [address] Howard Guthrie WBC NONE SEEN Normal NONE SEEN [facility] Comment on above: Performed By: #### U MICRO, ERUR #### [facility] [address] [address] [address] Howard Guthrie XR CHEST 1 Von [...] NICK MARIE Date: 2022-06-17 12:26 Normal [facility] Tobacco Screening.on 022 Adult depression screening assessment No [facility] 250 DO Work Phone: Tobacco use status CPHS a) Yes [facility] 250 DO Work Phone: Tobacco Screening. Yes [facility] 250 DO Work Phone: Vital Signs Date Time Vital Sign Value Performing Clinician Tonja figueroa 09-13-2023 13:06-0400 Blood Pressure Location Roosevelt Sotelo [facility] 09-13-2023 13:06-0400 Diastolic blood pressure 85 mm[Hg] Roosevelt Sotelo [facility] 09-13-2023 13:06-0400 Heart rate 90 /min Roosevelt Sotelo [facility] 09-13-2023 13:06-0400 SaO2% (BldA) [Mass fraction] 99 % Roosevelt Sotelo [facility] 09-13-2023 13:06-0400 Systolic blood pressure 125 mm[Hg] Roosevelt Sotelo [facility] 08-10-2023 09:19-0400 Blood Pressure Location JES ROLLE [facility] 08-10-2023 09:19-0400 Body temperature 98.24 [degF] JES ELSA [facility] 08-10-2023 09:19-0400 Diastolic blood pressure 78 mm[Hg] JES ELSA [facility] 08-10-2023 09:19-0400 Heart rate 80 /min JES ELSA [facility] 08-10-2023 09:19-0400 Respiratory rate 19 /min JES ELSA [facility] 08-10-2023 09:19-0400 Systolic blood pressure 136 mm[Hg] JES ELSA [facility] 03-22-2023 13:16-0500 Blood Pressure Location Ramone [...] Body height 165.1 cm Loretta Javier Other [facility] [employer] Other 12-15-2022 13:20-0400 Body mass index (BMI) [Ratio] 23.13 kg/m2 Loretta Javier Other [facility] Other 12-15-2022 13:20-0400 Body temperature 98.1 [degF] Loretta Javier Other [facility] Other 12-15-2022 13:20-0400 Body weight 63.05 kg Loretta Javier Other [facility] Other 12-15-2022 13:20-0400 Diastolic blood pressure 76 mm[Hg] Loretta Javier Other [facility] Other 12-15-2022 13:20-0400 Respiratory rate 18 /min Loretta Javier Other [facility] Other 12-15-2022 13:20-0400 SaO2% (BldA) [Mass fraction] 98 % Loretta Javier Other [facility] Other 12-15-2022 13:20-0400 Systolic blood pressure 128 mm[Hg] Loretta Javier Other [facility] Other 10-14-2022 11:10-0400 Body height 165.1 cm Tanya Glover Other [facility] Other 10-14-2022 11:10-0400 Body mass index (BMI) [Ratio] 23.39 kg/m2 Tanya Glover Other [facility] Other 10-14-2022 11:10-0400 Body temperature 97.8 [degF] Tanya Glover Other [facility] Other 10-14-2022 11:10-0400 Body weight 63.78 kg Tanya Glover Other [facility] Other 10-14-2022 11:10-0400 Diastolic blood pressure 85 mm[Hg] Tanya Pangmond Other [facility] Other 10-14-2022 11:10-0400 Respiratory rate 18 /min Tanya Glover Other [facility] Other 10-14-2022 11:10-0400 SaO2% (BldA) [Mass fraction] 99 % Tanya Glover Other [facility] Other 10-14-2022 11:10-0400 Systolic blood pressure 143 mm[Hg] Tanya Belen Other [facility] Other 06-24-2022 09:32-0400 Body height 165.1 cm No PCP None -[employer] [facility] 250 DO Work Phone: 06-24-2022 09:32-0400 Body mass index (BMI) [Ratio] 24.63 kg/m2 No PCP None -[facility] [employer] [facility] 250 DO Work Phone: 06-24-2022 09:32-0400 Body surface area Derived from formula 1.74 m2 No PCP None [facility] 250 DO Work Phone: 06-24-2022 09:32-0400 Body weight 67.13 kg No PCP None [facility] 250 DO Work Phone: 06-24-2022 09:32-0400 Diastolic blood pressure 82 mm[Hg] No PCP None [facility] 250 DO Work Phone: 06-24-2022 09:32-0400 Heart rate 88 /min No PCP None [facility] 250 DO Work Phone: 06-24-2022 09:32-0400 Systolic blood pressure 124 mm[Hg] No PCP None [facility] 250 DO Work Phone: 06-02-2021 15:09-0500 Diastolic blood pressure 98 mm[Hg] No PCP None [facility] 250 DO Work Phone: 06-02-2021 15:09-0500 Systolic blood pressure 142 mm[Hg] No PCP None [facility] 250 DO Work Phone: 06-02-2021 15:03-0500 Body height 165.1 cm No PCP None [facility] 250 DO Work Phone: 06-02-2021 15:03-0500 Body mass index (BMI) [Ratio] 28.29 kg/m2 No PCP None [facility] 250 DO Work Phone: 06-02-2021 15:03-0500 Body surface area Derived from formula 1.85 m2 No PCP None [facility] 250 DO Work Phone: 06-02-2021 15:03-0500 Body weight 77.11 kg No PCP None [facility] 250 DO Work Phone: 06-02-2021 15:03-0500 Diastolic blood pressure 90 mm[Hg] No PCP None [facility] 250 DO Work Phone: 06-02-2021 15:03-0500 Heart rate 92 /min No PCP None [facility] 250 DO Work Phone: 06-02-2021 15:03-0500 Systolic blood pressure 142 mm[Hg] No PCP None [facility] 250 DO Work Phone: Encounters Encounter Date Encounter Type Care Provider Facility Start: 12-17-2023 ambulatory Alexandro PARTIDA Facili ty:[facility] Start: 11-26-2023 ambulatory Alexandro PARTIDA Facili ty:[facility] Start: 11-25-2023 ambulatory Alexandro PARTIDA Facili ty:[id number] Start: 11-01-2023 End: 11-01-2023 Patient encounter procedure WOOD HEEL CEMENTER-C Jes Cruz Work Phone: [facility] [place] Work Phone: Start: 11-01-2023 End: 11-01-2023 ambulatory WOOD HEEL CEMENTER-C Jes Cruz Work Phone: [facility] Work Phone: Start: 10-14-2023 End: 10-14-2023 ambulatory JES ROLLE Facility: [facility] Start: 10-14-2023 End: 10-14-2023 Patient encounter procedure JES ROLLE [facility] Start: 10-05-2023 End: 10-05-2023 ambulatory Alexandro PARTIDA Facility:[facility] Start: 10-05-2023 End: 10-05-2023 Patient encounter procedure Alexandro PARTIDA [facility] Start: 09-18-2023 End: 09-19-2023 Emergency department patient visit CUATE KELLY [facility] Start: 09-13-2023 End: 09-13-2023 ambulatory PA-C Roosevelt Sotelo Facility:[facility] Start: 09-13-2023 End: 09-13-2023 Patient encounter procedure Roosevelt Sotelo [facility] Start: 08-10-2023 End: 08-10-2023 ambulatory PA-C JES ROLLE Facility:[facility] Start: 08-10-2023 End: 08-10-2023 Lab Drop off JES ROLLE [facility] Start: 08-10-2023 End: 08-10-2023 ambulatory PA-C JES ROLLE Facility:[facility] Start: 08-10-2023 End: 08-10-2023 Patient encounter procedure JES ROLLE [facility] Start: 06-09-2023 End: 06-09-2023 ambulatory Jes Cruz Facility:[facility] Start: 04-27-2023 ambulatory Alexandro PARTIDA Facility : [place] Start: 04-16-2023 End: 04-16-2023 ambulatory Ramone Garcia Facility:[facility] Start: 04-16-2023 End: 04-16-2023 Patient encounter procedure Ramone Garcia [facility] Start: 04-01-2023 End: 04-01-2023 ambulatory PHYSICIAN PRETTY HOLLEY Facility:[facility] Start: 03-22-2023 End: 03-22-2023 ambulatory Ramone Garcia Facility:[facility] Start: 03-22-2023 End: 03-22-2023 Patient encounter procedure Ramone Garcia [facility] Start: 12-15-2022 End: 12-15-2022 ambulatory Loretta Javier Other [facility] Other Start: 12-15-2022 Office outpatient visit 25 minutes Loretta Javier [facility] Start: 10-14-2022 End: 10-14-2022 ambulatory Tanya Glover Other [facility] Other Start: 10-14-2022 Office outpatient visit 15 minutes Tanya Glover [facility] Start: 08-14-2022 ambulatory Ms. Jes Cruz Facility: Start: 08-14-2022 FUV, Provider: Nadia Franks, Status: Pen, Time: 1:00 PM No PCP None -[facility] 250 DO Work Phone: Start: 08-06-2022 Rx Renewal No PCP None -[facility] 250 DO Work Phone: Start: 06-24-2022 Office outpatient visit 15 minutes No PCP None [facility] 250 DO Work Phone: Start: 06-24-2022 ambulatory Ms. Nadia Morales h Facility: Start: 06-19-2022 End: 06-19-2022 ambulatory PHYSICIAN NO [facility] Work Phone: Start: 06-19-2022 End: 06-19-2022 Departed Referred PHYSICIAN NO [facility] Start: 06-17-2022 End: 06-17-2022 ambulatory RIVER MARTE . Facility: Start: 11-10-2021 ambulatory Ms. Nadia mendoza Facility: Start: 10-27-2021 Rx Renewal No PCP None -[facility] 250 DO Work Phone: Start: 06-02-2021 Office outpatient visit 25 minutes No PCP None -[facility] 250 DO Work Phone: Procedures Date Procedure Procedure Detail Performing Clinician Start: 10-05-2023 Cystourethroscopy with dilation of urethral stricture JES ELSA Cardiac catheter (ph ysical object) Ramone Garcia Cardiac catheterization No P CP None Colonoscopy Ramone sanchez Hysterectomy Ramone sanchez Operative procedure on foot No PCP None Procedure on back No PCP Non e Procedure on back Ramone salomon Plan of Treatment Date Care Activity Detail Author Start: 11-01-2023 Bacteria identified in Urine by Culture [facility] Start: 08-14-2022 FUV, Provider: Nadia Franks, Status: Pen, Time: 1:00 PM [facility]UV, Provider: Nadia Franks, Status: Pen, Time: 1:00 PM [facility] 250 DO Work Phone: Start: 11-10-2021 FUV, Provider: Nadia Franks, Status: Pen, Time: 3:00 PM [facility]UV, Provider: Nadia Franks, Status: Pen, Time: 3:00 PM [facility] 250 DO Work Phone: Start: 06-30-2021 FUV, Provider: Nadia Franks, Status: Pen, Time: 8:00 AM [facility]UV, Provider: Nadia Franks, Status: Pen, Time: 8:00 AM [facility] 250 DO Work Phone: Estradiol (E2) [Mass/volume] in Serum or Plasma [facility] Lutropin [Units/volu me] in Serum or Plasma [facility] Immunizations Immunization Date Immunization Notes Care Provider Jennifer lacy 03-25-2021 influenza, injectabl e, quadrivalent, preservative free No PCP None [facility] 01-05-2020 influenza, injectabl e, quadrivalent, preservative free No PCP None [facility] 250 DO Work Phone: 01-06-2019 influenza, injectabl e, quadrivalent, preservative free [facility] Payers Date Payer Category Payer Self-pay [id number] 1970 Unknown [id number] [id number]. 593 1971 Unknown [id number] 2.16.840.1.085031.3.579.2. 356 1971 Unknown [id number] 2.16.840.1.772914.3.579.2. 356 1971 Unknown [id number] 2.16.840.1.879431.3.579.2. 356 1971 Unknown [id number] 2.16.840.1.203666.3.579.2. 1286 1971 Unknown [id number] 2.16.840.1.313047.3.579.2. 1286 1971 Unknown [id number] 2.16.840.1.990957.3.579.2. 727 1971 Unknown [id number] 2.16.840.1.997599.3.579.2. 727 1971 Unknown [id number] 2.16.840.1.294401.3.579.2. 727 1971 Unknown [id number] 2.16.840.1.401908.3.579.2. 727 1971 Unknown [id number] 2.16.840.1.026217.3.579.2. 727 1971 Unknown [id number] 2.16.840.1.803479.3.579.2. 727 1971 Unknown [id number] 2.16.840.1.467229.3.579.2. 727 1971 Unknown [id number] 2.16.840.1.172682.3.579.2. 727 1971 Unknown [id number] 2.16.840.1.560207.3.579.2. 727 1959 Medicaid [id number] Private Health Insurance [id number] Unknown [id number] Unknown [facility] Unknown [id number] Unknown [id number] 2.16.840.1.332889.3.579.2. 531 Unknown [id number] 2.16.840.1.123529.3.579.2. 531 Unknown [id number] 2.16.840.1.656974.3.579.2. 531 Social History Date Type Detail Facility Tobacco smoking stat [facility] Unknown if ever smoked [facility] Start: 1970 Sex Assigned At Female F [facility] Illicit drug use Illicit drug use Kar[facility] 250 DO Work Phone: Comment on above: 1 pack per daily.; Start: 05-26-2021 [facility] Sex Assigned At [facility] Start: 03-22-2023 End: 08-10-2023 Tobacco smoking status Light tobacco smoker (finding) [facility] Tobacco smoking status Never [facility] Medical Equipment Procedure Code Equipment Code Equipment Origin al Text Equipment Identifier Dates Thoracotomy Staple line-reinforcement strip [id number] FDA Start: 03-26-2021 Thoracotomy Surgical adhesive/sealant, human-derived ()[id number] FDA Start: 03-26-2021 Goals Date Patient Goal Desired Activity /State Functional Status Date Assessment Result Facility 10-14-2023 Functional Status N/A [facility] 09-13-2023 Functional Status No [facility] 08-10-2023 Functional Status N/A [facility] 03-22-2023 Functional Status No [facility] Clinical Notes 10-14-2022 to 10-14-2023 Note [...] including vitamins, herbs, eye drops, creams, and icnc-qmd-uhrrsob medicines. Any problems you or family members [...] provider tells you to take them. Taking impg-txm-xqlvlax medicines, vitamins, herbs, and supplements. Surgery safety [...] provider. Document Revised: 10/25/2020 Document Reviewed: 10/25/2020 [employer] Patient Education 2022 [employer]. Follow Up Care 10/05/2023 10:22:18 With:[facility] [place] Address: [address] [address] Business (1) When: Unknown Comments:for procedure as scheduled [facility] 10-14-2023 Note Patient Education Obstetrics and Gynecology [...] including vitamins, herbs, eye drops, creams, and jnzr-fiv-ytijvve medicines. ? Any problems you or family [...] tells you to take them. ? Taking ldti-xso-hollvls medicines, vitamins, herbs, and supplements. Surgery safety [...] intended to replace (more content not included)... [facility] 08-10-2023 Evaluation + Plan note Diagnostic Tests PendingUrine Cytology ([facility]) 08/10/23 [facility] 08-10-2023 Hospital Discharg e instructions Patient [...] require a prescription. You can also purchase eozi-hed-wqsjueq medicines. Medicines may have nicotine in them [...] and encouragement. Call telephone quitlines, such as 2-262-LGDD-NOW, reach out to support groups, or work [...] provider. Document Revised: 03/13/2022 Document Reviewed: 03/13/2022 [employer] Patient Education 2022 [employer]. 08/10/2023 10:11:31 Cystoscopy Cystoscopy Cystoscopy is [...] including vitamins, herbs, eye drops, creams, and fjoz-kji-iyjiyph medicines. Any problems you or family members [...] provider tells you to take them. Taking qxjg-uav-xqgvptj medicines, vitamins, herbs, and supplements. Tests You [...] Follow these instructions at home: Medicines Take wemz-uid-ortzvay and prescription medicines only as told by [...] provider. Document Revised: 12/03/2021 Document Reviewed: 11/01/2020 [employer] Patient Education 2022 [employer]. Follow Up Care 04/30/2023 12:48:57 With:ELSA MOSES, JES Akhtar, URL Address: [facility] [place] [address] [phone] When: Unknown [facility] 08-10-2023 Note Chief Complaint Jes Gomes [...] has had dark urine. Bladder/renal US 04/01/23 [facility] - No renal mass, stone or hydro. Unremarkable bladder. KUB 04/01/23 [facility] - No obvious urinary tract calculi. AMOL 08/02/23 [facility] - No renal stones or hydro. Unremarkable bladder. KUB 08/02/23 [facility] - No urinary tract calculi. Educated [...] upon conclusion of the workup. -CTU at [facility] now -Urine sample to be sent [...] Cyst of kidney, acquired) Bladder/renal US 04/01/23 [facility] - Small L renal cyst. 06/09/23 - BUN 14. Cr 0.63. GFR >60. -Simple cysts do not require follow-up Ordered: CT Urogram 5. Smoker (F17.200: Nicotine dependence, unspec (more content not included)... [facility] Comment on above: Result Comment: Elec tronically Signed By: JES ROLLE PA-C\.br\Date and Time Signed: 08/10/23 10:56 EDT\.br\Electronically Co-Signed By: Mirela Lozoya\.br\Date and Time Co-Signed: 08/10/23 10:16 EDT 04-17-2023 Note Echocardiology Procedure Exam Date/Time Accession # Ordering Dr. De La Vega Transthoracic 04/16/2023 14:37 EST [id number] Jose PATRICK, Ramone Clinton. CPT code 87882 [id number] Reason for Exam (Echo Transthoracic Complete) I25.10;CAD Coronary artery disease Report Version: 1 Study ID: [id number] [facility] [address] [place] [address] Adult Echocardiogram Report Name: ISELA CRAIG Study Date: 04/16/2023, 1: 10 PM Patient Location: [facility] : 1970 (MM/DD/YYYY) Gender: Female Age: 52 [...] Signed by: Ramone Garcia MD Transcribed by: [facility] Technologist: [facility] 12-15-2022 Evaluation note Encounter Date Diagnosis Assessment [...] understanding and is agreeable to treatment plan [facility] Other 07-12-2023 Evaluation note* Encounter Date Diagnosis [...] - Z20.822) Oct, Bronchitis (ICD-10 - J40) [facility] Other Evaluation + Plan note Future Appointments Appointment Date:05/13/2023 03:45:00 PM Scheduled Provider:Ramone Garcia MD Location[facility] Appointment Type:Cardiology Follow Up (FT) Future Scheduled Tests Radiology* NM Myocardial Spect Rest/Stress 1 Day 03/22/23 * Echo Transthoracic [facility] Future Appointments Appointment Date:05/13/2023 03:45:00 PM Scheduled Provider:Ramone Garcia MD [facility] ([facility]) [facility] Future Appointments Appointment Date:09/27/2023 09:30:00 AM Scheduled Provider: Location:[facility] Appointment Type:Urology CALL PAT FT Appointment Date:10/05/2023 09:00:00 AM Scheduled Provider: Location:[facility] Appointment Type:Urology FT Appointment Date:12/13/2023 01:00:00 PM Scheduled Provider:Roosevelt Sotelo PA-C [facility] Type:Cardiology Follow Up (FT) Future Scheduled Tests Radiology* US Carotid Duplex Bilateral [facility]/14/23 [facility] Future Appointments Appointment Date:10/14/2023 12:40:00 PM Scheduled Provider:JES ROLLE PA-C Location:[facility] Appointment Type:URO Complex Office Visit Appointment Date:12/13/2023 01:00:00 PM Scheduled Provider:Roosevelt Sotelo PA-C [facility] Type:Cardiology Follow Up (FT) Future Scheduled Tests Radiology* US Carotid Duplex Bilateral [facility]/14/23 [facility] Future Appointments Appointment Date:11/26/2023 09:30:00 AM Scheduled Provider: Location:[facility] Appointment Type:URO Nurse Visit Appointment Date:12/13/2023 01:00:00 PM Scheduled Provider:Roosevelt Sotelo PA-C [facility] Type:Cardiology Follow Up (FT) Appointment Date:12/13/2023 01:45:00 PM Scheduled Provider:Alexandro PARTIDA MD Location:[facility] Appointment Type:URO Office Visit Future Scheduled Tests Radiology* US Carotid Duplex Bilateral 09/14/23 [facility] evaluation noteNo assessment information available [facility] Work Phone: Hisblqu general Narrative - Reported* Type Description Date Surgical History hysterectomy Surgical History [facility] [employer] Other History of Present illness Narrative* The [...] medication regimen. She denies medication side effects. [facility] 250 DO Work Phone: Hospital course Narrative No data available for this section [facility] No data available for this section [facility] No data available for [...] dyspnea. * Patient was recently hospitalized at [facility]. The patient was seen in Cardiology consult with subsequent cardiovascular management by [facility]. Hospitalization records have been reviewed. * Reason for Cardiology Consultation: chest pain (presented with spontaneous PTX) * Consulting Slip Caster: Dr. Lopez * Cardiovascular testing: cardiac cath [...] evaluation. * Last week she presented to [facility] due to chest pain and dizziness. [...] and fluttering . 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 Due to blood pressure and palpitations will resume prior dose of diltiazem, symptoms have been quiescent with that treatment. She is in agreement to proceed with treatment plan as outlined. Chief Complaint and Reason for Visit Chief Complaint Other chest pain Oth er chest pain;Primary hyperten Chief Complaint R23.2-pass Advance Directives No Advanced Directives Records Found Advance Directive Response Recorded Date/ Time Advance Directives No January 05, 2019 3:54pm Summary Purpose Additional Source Comments Care Teams (unrecognized sec tion and content) Team Status: Active Member Role Status Dates PHYSICIAN NO FAMILY Primary Care Provider Active Team Status: Inactive Member Role Status Dates PHYSICIAN NO FAMILY Primary Care Provider Active LEIGHANN Escamilla Attending Provide r Active Team Status: Active Member Role Status Dates LEIGHANN Escamilla Primary Care Prov ider Active Team Status: Inactive Member Role Status Dates LEIGHANN Escamilla Primary Care Provider, Attending Provider Active Start: [...] CREATED AUTHOR AUTHOR'S ORGANIZ ATION 07/29/2022 [facility] DATE CREATED AUTHOR AUTHOR'S ORGANIZ ATION 08/16/2022 [facility] DATE CREATED AUTHOR AUTHOR'S ORGANIZ ATION 09/19/2023 [facility] DATE CREATED AUTHOR AUTHOR'S ORGANIZ ATION 10/21/2023 [facility] DATE CREATED AUTHOR AUTHOR'S ORGANIZ ATION 11/05/2023 [facility] DATE CREATED AUTHOR AUTHOR'S ORGANIZ ATION 11/08/2023 [facility] REASON FOR VISIT (unrecogniz ed section [...] BE BASED ON THE PRIMARY CLINICAL RECORDS. [facility] [employer] [facility]. provides no warranty or guarantee of the accuracy or completeness of information in this document.
--- NOTE | 2023-11-15 17:22 | XR_ITS ---
The [address] [address] Patient Name: MEGHANA KEY MRN: [id number] date: 1970 Sex: F Assigned Patient Location: [facility] Current Patient Location: Accession/Order Number: [id number] Exam Date: 11/15/2023 17:13 Report Date: 11/17/2023 07:38 At the request of: RACHEL VASQUEZ Procedure: XR lumbar spine 6V w bending EXAMINATION: XR lumbar spine 6V w bending HISTORY: Low back pain, M54.50 COMPARISON: No relevant comparison available. FINDINGS: BONES: Posterior decompression bilateral transpedicular fusion L4-S1. There is fracture of the right S1 pedicle screw. Minimal spondylosis. Rdul-js-hdkbzlex facet osteoarthropathy DISC SPACES: Moderate L5-S1 narrowing PARASPINOUS: Negative. No paraspinous abnormality is seen. OTHER: No transient spondylolisthesis with flexion or extension XR/XR lumbar spine 6V w bending IMPRESSION: Lumbosacral fusion with fracture of the right S1 pedicle screw Electronically authenticated by: TYE SUBRAMANIAN Date: 11/17/2023 07:38
== END 2023-11-15 16:54 | disposition home or self-care (01) ==
LOC: RAD 16:54
PROVIDERS: PCP Nurse Practitioner Family; Visit Provider Nurse Practitioner Family
DX: M54.50 Low back pain, unspecified (principal)
CPT/HCPCS: 72114

== ENCOUNTER 2023-12-15 12:50 | Outpatient (OUT) | payer OTHER, SELFPAY ==
--- NOTE | 2023-12-15 | US_ITS ---
[address] [address] Patient Name: MEGHANA KEY MRN: [id number] date: 1970 Sex: F Assigned Patient Location: [facility] Current Patient Location: [facility] Accession/Order Number: [id number] Exam Date: 12/15/2023 13:15 Report Date: 12/15/2023 15:54 At the request of: RACHEL VASQUEZ Procedure: US carotid duplex BI EXAMINATION: US carotid duplex BI HISTORY: syncope COMPARISON: No relevant comparison available. TECHNIQUE: Duplex Doppler ultrasound analysis of carotid and vertebral arteries. . Bilateral carotid arterial duplex examination was performed using B-mode, color flow and spectral analysis. Carotid stenosis is reported according to validated velocity parameters, similar to NASCET criteria. FINDINGS: RIGHT CAROTID ARTERY No atherosclerotic plaque Subclavian: 92.46 cm/s / 0 cm/s CCA: Prox: 87.23 cm/s / 22.04 cm/s Mid: 63.76 cm/s / 22.04 cm/s Distal: 55.94 cm/s / 20.73 cm/s BULB: 41.79 cm/s / 17.36 cm/s ICA: Prox: 80.13 cm/s / 26.27 cm/s Mid: 57.03 cm/s / 28.46 cm/s Distal: 64.73 cm/s / 33.96 cm/s ECA: 65.80 cm/s / 11.97 cm/s VERTEBRAL: 30.63 cm/s / 11.45 cm/s ICA/CCA ratio: 0.9 LEFT CAROTID ARTERY no arthrosclerotic plaque Subclavian: 109 images per second / 0 cm/s CCA: Prox: 87.04 cm/s / 25.68 cm/s Mid: 78.94 cm/s / 28.90 cm/s Distal: 62.80 cm/s / 22.44 cm/s BULB: 42.76 cm/s / 17.48 cm/s ICA: Prox: 60.34 cm/s / 21.87 cm/s Mid: 48.24 cm/s / 26.26 cm/s Distal: 54.84 cm/s / 28.46 cm/s ECA: 53.72 cm/s / 11.97 cm/s VERTEBRAL: 39.08 cm/s / 16.30 cm/s ICA/CCA ratio: 0.7 US/US carotid duplex BI IMPRESSION: 0-49% flow stenosis bilateral internal carotid arteries Spectral Doppler US Thresholds (Reference: Diego EG, et al. Radiology 2000; 214:247-252) Stenosis (%) PSV (cm/sec) VICA/VCCA 0-49 <150 <2.5 50-69 150-225 2.5-4.0 >70 >225 >4.0 Electronically authenticated by: TYE SUBRAMANIAN Date: 12/15/2023 15:54
--- NOTE | 2023-12-15 | MM_ITS ---
Patient Name: MEGHANA KEY MR#: [id number] : 1970 Exam Date: 12/15/2023 Ordering Doctor: Jes Cruz RADIOLOGY REPORT PROCEDURE: MM TOMOSYNTHESIS SCREENING BI COMPARISON: None. INDICATIONS: Screening for malignant neoplasm Calculator Name NCI Breast Cancer Risk Assessment Tool 5 Year Breast Cancer Risk 1.80% Lifetime Breast Cancer Risk 14.30% Personal Breast Cancer No Personal Ovarian Cancer No Treatments None Family Cancers Mother with breast cancer at age 52; Mother with ovarian cancer at age 25. LOCATION: The [facility] BREAST COMPOSITION: There are scattered areas of fibroglandular density. FINDINGS: DIAGNOSTIC CATEGORY 2--BENIGN FINDING. NO CHANGE FROM COMPARISON. Scattered benign-appearing lymph nodes are present. RIGHT BREAST: No significant suspicious finding. LEFT BREAST: No significant suspicious finding. RECOMMENDATIONS: ROUTINE MAMMOGRAM AND CLINICAL EVALUATION IN 12 MONTHS. PLEASE NOTE: A NORMAL MAMMOGRAM DOES NOT EXCLUDE THE POSSIBILITY OF BREAST CANCER. A CLINICALLY SUSPICIOUS PALPABLE LUMP SHOULD BE BIOPSIED. Dictated by: Valeriano Walsh MD on 12/15/2023 at 15:36 Approved by: Valeriano Walsh MD on 12/15/2023 at 15:37
--- NOTE | 2023-12-15 | ECG_ITS ---
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
== END 2023-12-15 12:51 | disposition home or self-care (01) ==
LOC: MAMMO 12:52
PROVIDERS: Visit Provider Nurse Practitioner Family
DX: Z12.31 Encounter for screening mammogram for malignant neoplasm of breast (principal); R55 Syncope and collapse; I10 Essential (primary) hypertension; E78.1 Pure hyperglyceridemia; F17.200 Nicotine dependence, unspecified, uncomplicated; M54.50 Low back pain, unspecified; Z80.3 Family history of malignant neoplasm of breast; Z80.41 Family history of malignant neoplasm of ovary
CPT/HCPCS: 77063; 77067; 93005; 93880

== ENCOUNTER 2024-01-05 08:23 | Outpatient (OUT) | payer OTHER, SELFPAY ==
--- NOTE | 2024-01-05 08:26 | CT_ITS ---
[address] [address] Patient Name: MEGHANA KEY MRN: [id number] date: 1970 Sex: F Assigned Patient Location: CT Current Patient Location: CT Accession/Order Number: [id number] Exam Date: 01/05/2024 08:35 Report Date: 01/05/2024 09:17 At the request of: MEGAN CEBALLOS Procedure: CT lumbar spine wo con EXAMINATION: CT lumbar spine wo con HISTORY: Loosening Of Hardware In Spine COMPARISON: 11/15/2023 TECHNIQUE: Axial, Coronal, and Sagittal CT images were created without I.V. contrast material. Dose reduction techniques were achieved by using automated exposure control and/or adjustment of mA and/or kV according to patient size and/or use of iterative reconstruction technique. FINDINGS: PARASPINAL AREA: Normal with no visible mass. BONES: Normal alignment of the lumbar spine with no acute fracture or spondylolisthesis. Posterior decompression and bilateral transpedicular fusion L4, L5 and S1. There is fracture of the right S1 pedicle screw stable from the plain x-ray. Mild to moderate anterior spondylosis L2-L3. Mild facet osteoarthropathy DISC LEVELS: 12-L1: No significant disc/facet abnormality, spinal stenosis, or foraminal stenosis. L1-L2: No significant disc/facet abnormality, spinal stenosis, or foraminal stenosis. L2-L3: Early degenerative disc disease is present without focal protrusion or neural impingement. L3-L4: Early degenerative disc disease is present without focal protrusion or neural impingement. L4-L5: Early degenerative disc disease is present without focal protrusion or neural impingement. L5-S1: Mild to moderate disc space narrowing. Mild diffuse disc/osteophyte complex and facet osteoarthropathy. No central canal stenosis. Minimal bilateral foraminal stenosis CT/CT lumbar spine wo con IMPRESSION: Lumbosacral fusion with fracture of the right S1 pedicle screw. No definite evidence of loosening Electronically authenticated by: TYE SUBRAMANIAN Date: 01/05/2024 09:17
--- OUTSIDE RECORDS SUMMARY | 2024-01-05 08:31 | XMS_ITS | CCD ---
Author Organization [facility]iniSy[facility] Care Team Providers Care Blocklayer Name Role Phone None, No PCP Unavailable [...] Ms. Jes Kaur Primary Care Unavailable Rome, Shyanne Nadiaindra Lainez Attending Curtis Cruz, Ms. Jes Kaur Primary Care Unavailable Rome, Shyanne Nadia Tanvi Lainez Attending Tanya Colby Unavailable Loretta Javier Unavailable JES CRUZ Primary Care Physician [phone] CUATE KELLY Attending Unavailable JES CRUZ Primary Care Unavailab CUATE Olson Attending Unavailable CUATE KELLY Referring Unavailable JES CRUZ Primary Care Unavailab Jacquelyn Azul Primary Care Physician JES ROLLE Attending Unavailable LEIGHANN Cruz Primary Care Provider LEIGHANN Cruz Attending Pr ovider Alexandro PARTIDA Attending Unavailable JES CRUZ Referring Unavailab JES Henderson Attending Unavailable JES ROLLE Attending Unavailable NONE, XXXX Referring Unavailable Roosevelt Sotelo Attending Unavailable JES CRUZ Referring Unavailab Ramone Willson Admitting Unavaila ble Ramone Garcia Attending Unavaila Alexandro Alexis Admitting Unavailable Alexandro PARTIDA Attending Unavailable Alexandro PARTIDA Referring Unavailable Ramone Garcia Admitting Unavaila ble Ramone Garcia Consulting Unavaila Ramone Hart Attending Unavaila ble Ramone Garcia Referring Unavaila ble Ramone Garcia Consulting Unavaila Ramone Hart Consulting Unavaila ble JES ROLLE Admitting Unavailable JES ROLLE Attending Unavailable Alexandro PARTIDA Attending Unavailable Alexandro PARTIDA Attending Unavailable NO FAMILY, PHYSICIAN Primary Care Unavailable Jes Cruz Attending U navailable Cruz, Jes Kaur Admitting U navailable Cruz, Jes Kaur Attending U navailable Cruz, Jes Kaur Admitting U navailable Cruz, Jes Kaur Primary Care U navailable Cruz, Jes Kaur Attending U navailable Cruz, Jes Kaur Admitting U navailable Cruz, Jes Kaur Primary Care U navailable Cruz, Jes Kaur Attending U navailable Cruz, Jes Kaur Admitting U navailable Cruz, Jes Kaur Primary Care U navailable OVITT, CHLOE Attending Unavailable CHLOE CEBALLOS Referring Unavailable Unavailable Unavailable Unavailable Allergies Allergy Classification Reported Allergen(s) Allergy Type Date of Onset Reaction(s) Facility Opioid Agonists (1 source) Codeine; Translations: [codeine] Drug Allergy Eruption of skin present [facility] (20 sources) Codeine; Translations: [codeine] Drug Allergy 09-03-2012 hives, Eruption of skin present [facility] Medications Current Medications Medication Drug Class(es) Dates Sig (Normalized) Sig (Original) aspirin 81 mg delayed release oral tablet (17 sources) Platelet Aggregation Inhibitor, Nonsteroidal Anti-inflammatory Drug Start: 04-04-2021 take 81 mg by mouth once daily Aspirin Active 81 MG PO Daily April 04, 2021 1:00am take 1 tablet by mouth once brandi y Aspirin Low Dose 81 MG CHEW ONE TABLET BY MOUTH ONCE DAILY Oral for 30 Days Not-Taking atorvastatin 40 mg oral tablet (17 sources) HMG-CoA Reductase Inhibitor Start: 03-22-2023 take 1 tablet by mouth once daily atorvastatin 40 mg Tab 40 mg = 1 tab(s), Oral, Daily, # 30 tab(s), Refills(s) 3, Pharmacy: [facility] 1155, 164, cm, 03/22/23 13:24:00 EST, Height/Length Dosing, 64.7, kg, 03/22/23 13:24:00 EST, Weight Dosing Start Date: 03/22/23 Status: Ordered Start: 04-04-2021 take 20 mg by mouth once daily in the evening Atorvastatin Active 20 MG PO Every evening April 04, 2021 1:00am busPIRone hydrochloride 15 mg oral tablet (15 sources) Start: 01-17-2020 take 1 mg by [...] 2019 12:00am October 19, 2019 12:57pm BuSpar Not-Nat g clonazePAM 0.5 mg oral tablet (7 [...] sulfate 324 mg delayed release oral tablet (3 sources) Start: 04-04-2021 take 324 mg by mouth twice daily Ferrous Sulfate Active 324 MG PO Twice daily 60 April 04, 2021 1:00am gabapentin 300 mg oral capsule (20 sources) Anti-epileptic Agent Start: 05-26-2021 take 1 [...] 2019 12:00am October 19, 2019 12:57pm Motrin (12 sources) Nonsteroidal Anti-inflammatory Drug Start: 01-17-2020 take [...] mononitrate 30 mg extended release oral tablet (17 sources) Nitrate Vasodilator Start: 03-22-2023 take 1 tablet by mouth once daily in the morning isosorbide mononitrate 30 mg ER Tab 30 mg = 1 tab(s), Oral, qAM, # 30 tab(s), Refills(s) 3, Pharmacy: [facility] 1155, 164, cm, 03/22/23 13:24:00 EST, Height/Length Dosing, 64.7, kg, 03/22/23 13:24:00 EST, Weight Dosing Start Date: 03/22/23 Status: Ordered Start: 04-04-2021 take 60 mg by mouth once daily Isosorbide Mononitrate Active 60 MG PO Daily April 04, 2021 1:00am lamoTRIgine 25 mg chewable tablet (12 sources) Mood Stabilizer, Anti-epileptic Agent Start: 01-17-2020 [...] mg injection (1 source) Opioid Antagonist Start: 07-11-2024 Vivitrol 380 mg intramuscular injection, extended release Refills(s) 0 Start Date: 10/14/23 Status: Ordered nicotine 2 mg chewing gum (6 sources) Cholinergic Nicotinic Agonist Start: 10-14-2023 nicotine 2 mg Oral transmucosal Gum Refills(s) 0 Start Date: 10/14/23 Status: Ordered Start: 06-02-2021 apply 1 dose transde rmal route once daily EQ Nicotine 21 MG/24HR Transdermal Patch 24 Hour APPLY 1 PATCH DAILY DIRECTED. Quantity: 30 Refills: 1 Ordered: 02-Jun-2021 Migel Peter ACTUARY MANAGER-[employer] SUPERVIS[employer]adia Start : 02-Jun-2021 Active Start: 01-09-2019 End: 10-19-2019 Nicotine Discontinued 1 EACH TRANSDERML Daily 10 09January 09, 2019 12:00am October 19, 2019 12:57pm nitroglycerin 0.4 mg sublingual tablet (8 sources) Nitrate Vasodilator Start: 04-04-2021 Nitroglyce rin (Nitrostat) 0.4 mg tablet, sublingual Active 0.4 MG SUBLINGUAL Q5M April 04, 2021 1:00am do not exceed 3 doses per episode olanzapine (12 sources) Atypical Antipsychotic Start: 01-17-2020 olanzap ine [...] 0 Start Date: 01/17/20 Status: Ordered Prazosin (10 sources) alpha-Adrenergic Malinda Start: 01-17-2020 prazosin Oral, [...] Drug Class(es) Dates Sig (Normalized) Sig (Original) [id number] 200 actuat albuterol 0.09 mg/actuat metered dose [...] procedure, # 2 tab(s), Refills(s) 0, Pharmacy: [facility] 1155, 164, cm, 08/10/23 9:37:00 EDT, Height/Length Dosing, 66, kg, 08/10/23 9:37:00 EDT, Weight Dosing Start Date: 08/20/23 Status: Ordered cyclobenzaprine hydrochloride 5 mg oral tablet (12 sources) Muscle Relaxant Start: 10-19-2019 End: 03-24-2021 [...] Start: 06-02-2021 take 1 capsule by mo [facility] once daily dilTIAZem HCl ER Coated [...] Days Not-Taking loratadine 10 mg oral tablet (3 sources) Start: 01-09-2019 End: 10-19-2019 take 10 [...] pain] Onset: 08-10-2023 01-17-2020 Episodic Adjustment disorders (3 sources) Complicated grieving; Translations: [Adjustment disorder with depressed mood] 01-06-2019 Chronic Adjustment disorders (1 source) Complicated grieving; Translations: [Complicated bereavement] Episodic Anxiety disorders (10 sources) Anxiety; Translations: [Anxiety disorder, unspecified] Onset: 06-09-2023 03-18-2023 Chronic Calculus of urinary tract (7 sources) History of calculus of kidney; Translations: [Personal history of urinary calculi] Onset: 08-10-2023 Episodic Cardiac dysrhythmias (6 sources) Palpitations; Translations: [Palpitations] Onset: 09-13-2023 Episodic Chronic obstructive pulmonary disease and bronchiectasis (3 sources) Chronic obstructive lung disease; Translations: [Chronic obstructive pulmonary disease, unspecified] 03-25-2021 Chronic Chronic obstructive pulmonary disease and bronchiectasis (1 source) Bronchitis, not specified as acute or chronic Episodic Complication of device; implant or graft (3 sources) Breakdown (mechanical) of internal fixation device of vertebrae, initial encounter; Translations: [Other mechanical complication of other internal orthopedic devices, implants and grafts, initial encounter] Onset: 12-02-2023 Episodic Complications of surgical procedures or medical care (3 sources) Subcutaneous emphysema resulting from a procedure; Translations: [Emphysema (subcutaneous) resulting from a procedure, initial encounter] 03-25-2021 Episodic Coronary atherosclerosis and other heart disease (18 sources) Coronary atherosclerosis; Translations: [Coronary atherosclerosis of [place] coronary artery] 04-03-2021 Chronic Disorders of lipid metabolism (6 sources) Mixed hyperlipidemia; Translations: [Mixed hyperlipidemia] Onset: 11-01-2023 Chronic Essential hypertension (13 sources) Benign hypertension; Translations: [Benign essential hypertension] Onset: 11-01-2023 03-18-2023 Chronic Genitourinary symptoms and ill-defined conditions (17 sources) Incontinence; Translations: [Urge incontinence of urine] Onset: 08-10-2023 01-17-2020 Chronic Headache; including migraine (1 source) Headache; including migraine; Translations: [Headache, unspecified] Onset: 09-18-2023 Mood disorders (15 sources) Major depressive disorder; Translations: [Major depressive disorder, single episode, unspecified] Onset: 06-09-2023 01-06-2019 Chronic Nonspecific chest pain (7 sources) Chest wall pain; Translations: [Other chest pain] Onset: 06-17-2022 05-26-2021 Episodic Nutritional deficiencies (1 source) Vitamin D deficiency, unspecified; Translations: [Vitamin D deficiency, unspecified] Onset: 06-09-2023 Chronic Other bone disease and musculoskeletal deformities [...] sources) Diarrhea; Translations: [Diarrhea, unspecified] Episodic Other nervous system disorders (1 source) Polyneuropathy, unspecified; Translations: [Polyneuropathy, unspecified] Onset: 12-02-2023 Chronic Other nervous system disorders (2 sources) Paresthesia of skin; Translations: [Paresthesia of skin] Onset: 12-14-2023 Episodic Other nutritional; endocrine; and metabolic disorders (5 sources) Overweight in adulthood with body mass index of 25 or more but less than 30; Translations: [Overweight] Episodic Other upper respiratory infections (3 sources) Sinusitis; Translations: [Chronic sinusitis, unspecified] 01-06-2019 Chronic Other upper respiratory infections (5 sources) Sinusitis; Translations: [Acute pharyngitis, unspecified] Episodic Pleurisy; pneumothorax; pulmonary collapse (8 sources) Pneumothorax; Translations: [Other pneumothorax] 03-24-2021 Episodic Residual codes; unclassified (3 sources) Tobacco user; Translations: [Tobacco use] 03-24-2021 [...] Spondylosis; intervertebral disc disorders; other back problems (1 source) Spondylosis without myelopathy or radiculopathy, lumbar region; Translations: [Spondylosis without myelopathy or radiculopathy, lumbar region] Onset: 12-02-2023 Chronic Spondylosis; intervertebral disc disorders; other back problems (13 sources) Low back pain; Translations: [Radiculopathy, lumbar region] Onset: 12-14-2023 02-08-2020 Episodic Substance-related disorders (20 sources) Polysubstance abuse ; Translations: [Smoker] Onset: 06-09-2023 01-06-2019 Chronic Comment on above: 1 pack per daily.; Added secondary to d ocumentation in Social History. Suicide and intentional self-inflicted injury (4 sources) Suicidal thoughts; Translations: [Suicidal ideations] 01-05-2019 Episodic Syncope (1 source) Syncope and collapse; Translations: [Syncope and collapse] Onset: 09-13-2023 Episodic Unclassified (7 sources) Finding of sensation of bladder 02-08-2020 Unclassified (1 source) EMS Onset: 09-18-2023 Unclassified (1 source) Low back pain, unspecified; Translations: [Low back pain, unspecified] Onset: 12-02-2023 Urinary tract infections (7 sources) Chronic interstitial cystitis 02-08-2020 Chronic Past or Other Problems Problem Classification Problem Date Documented Date Episodic/Chronic Chronic obstructive pulmonary disease and bronchiectasis (7 sources) Chronic obstructive pulmonary disease and bronchiectasis 03-18-2023 Genitourinary symptoms and ill-defined conditions (20 sources) Blood in urine; Translations: [Microscopic hematuria] Onset: 04-01-2023 01-17-2020 Episodic Nutritional deficiencies (1 source) Iron deficiency; Translations: [Iron deficiency] Onset: 06-09-2023 Episodic Other aftercare (1 source) Other senior care (current) drug therapy; Translations: [Other senior care (current) drug therapy] Onset: 06-09-2023 Episodic Unclassified (1 source) Contact with and (suspected) exposure to covid-19 Z20.822 Unclassified (7 sources) Bipolar (qualifier value) 03-18-2023 Results Test Name Value Interpretation Reference Range Facility 36on 12-22-2023 36 Pt called and LVM requesting CT and MRI orders be faxed to [facility]. Pt has existing CT and MRI scheduled here at [facility]. I called and LVM with pt to notify of orders faxed to [facility], that she will need to bring disc of imaging to her follow up visit with Chloe Ceballos CNP and to call [facility] radiology to cancel appointments. Follow up visit date and time and radiology scheduling number provided in VM. Normal [facility] Consulton 12-14-2023 Consult [id number] Julianne Craig 1970 F Date Provider Department Center 12/14/2023 CHLOE TOMLIN [facility] SURG [place] Family History Problem Relation Age of Onset Coronary artery disease Mother Hypertension Mother Other Father Hypertension Father Other Daughter Comments: 05/2023 drug overdose Family Status - Relation Status Age at Mother Father Daughter Level of Service:52079 PA OFFICE/OUTPATIENT NEW MODERATE MDM 45 MINUTES Reason for Visit and Comments: Consult [484] - broken screw from past surgery. Pt will bring disc of Xr and MRI with her. Normal [facility] MR lumbar spine wo conon MR lumbar spine wo con [facility] Main [place] [address] [place] [address] MRI Report Signed Patient: Isela Craig MR#: [id number] : 1970 Acct:[id number] Age/Sex: 53 / F ADM Date: 12/02/23 [facility] Room: Type: [facility] Attending Dr: Jes Cruz MEDICAL TYPIST-C Copies to: Jes Cruz Ordering Provider: Jes Cruz Date of Service: 12/02/23 MR/MR lumbar spine wo con: Neuropathy;Lumbar pain;Breakdown (mechanical) of internal fi MR lumbar spine wo con 12/02/2023 11:56 AM SIGNS AND SYMPTOMS: Back pain, bilateral lower lower extremity radiculopathy. Fracture of right S1 pedicle screw status post fall PROTOCOL: Multiplanar multisequence MR images of the lumbar spine were obtained without IV contrast. COMPARISON: 11/15/2023 FINDINGS: The bones of the lumbar spine are in anatomic alignment. There is preservation of vertebral body heights. There is disc desiccation and mild disc height loss at L5-S1 and L4-5 with posterior fusion and posterior decompression. The marrow signal is within normal limits. The conus terminates at the mid L1 vertebral body level. No epidural or paraspinous fluid collection is appreciated. At T12-L1: There is a normal disc, central canal, and neural foramen. At L1-L2: There is a normal disc, central canal, and neural foramen. At L2-L3: There is a normal disc, central canal, and neural foramen. At L3-L4: There is a normal disc, central canal, and neural foramen. At L4-L5: There is a normal disc, central canal, and neural foramen. At L5-S1: Facet degenerative changes are present bilaterally contributing to mild bilateral neural foraminal stenosis. There is an accompanying broad-based disc bulge without significant spinal canal narrowing. MR/MR lumbar spine wo con IMPRESSION: There is disc desiccation and mild disc height loss at L5-S1 and L4-5 with posterior fusion and posterior decompression. At L5-S1: Facet degenerative changes are present bilaterally contributing to mild bilateral neural foraminal stenosis. There is an accompanying broad-based disc bulge without significant spinal canal narrowing. Impression dictated by: Bjorn Rdz M.D.12/02/2023 3:22 PM Dictation Location: [place] [address] Transcribed By: [facility] 12/02/23 1522 Dictated By: Bjorn Rdz II, MD 12/02/23 1512 Signed By: 12/02/23 152 Normal [facility] Alanine aminotransferase [En zymatic activity/volume] in Serum or PlasmaOrdered By: Jes Cruz on 11-01-2023 ALT [Catalytic activity/Vol] 17 U/L Normal 7-52 [facility] Comment on above: Order Comment: Reaso n for Exam Primary hypertension Reason for Exam Low iron Reason for Exam Primary hypertension;Hypertriglyceridemia Reason for Exam Hot flashes Reason for Exam Vitamin D deficiency Performed By: #### C BC, TSH3, [id number], CMP, SHAMA, FE and TIBC, LIPID, FSH, T3F, CUU, [id number], UA #### [facility] [address] [place] [address] #### ESTRADIOL, LH #### [facility] , Albumin [Mass/volume] in Ser um or Plasma by Bromocresol green (BCG) dye binding methoOrdered By: Jes Cruz on 11-01-2023 Albumin BCG dye [Mass/Vol] 4.3 g/dL 3.5-5.7 [facility] Alkaline phosphatase [Enzyma tic activity/volume] in Serum or PlasmaOrdered By: Jes Cruz on 11-01-2023 ALP [Catalytic activity/Vol] 87 U/L Normal 34-104 [facility] Comment on above: Order Comment: Reaso n for Exam Primary hypertension Reason for Exam Low iron Reason for Exam Primary hypertension;Hypertriglyceridemia Reason for Exam Hot flashes Reason for Exam Vitamin D deficiency Performed By: #### C BC, TSH3, [id number], CMP, SHAMA, FE and TIBC, LIPID, FSH, T3F, CUU, [id number], UA #### [facility] [address] [place] [address] #### ESTRADIOL, LH #### [facility] , Aspartate aminotransferase [ Enzymatic activity/volume] in Serum or PlasmaOrdered By: Jes Cruz on 11-01-2023 AST [Catalytic activity/Vol] 13 U/L Normal 13-39 [facility] Comment on above: Order Comment: Reaso n for Exam Primary hypertension Reason for Exam Low iron Reason for Exam Primary hypertension;Hypertriglyceridemia Reason for Exam Hot flashes Reason for Exam Vitamin D deficiency Performed By: #### C BC, TSH3, [id number], CMP, SHAMA, FE and TIBC, LIPID, FSH, T3F, CUU, [id number], UA #### [facility] [address] [place] [address] #### ESTRADIOL, LH #### [facility] , Automated basophil %Ordered By: Jes Cruz on 11-01-2023 Basophils/100 WBC (Bld) 1.1 % Normal . [facility] Comment on above: Order Comment: Reaso n for Exam Primary hypertension Performed By: #### C BC, TSH3, [id number], CMP, SHAMA, FE and TIBC, LIPID, FSH, T3F, CUU, [id number], UA #### [address] #### ESTRADIOL, LH #### [facility] , Automated basophil countOrde red By: Jes Cruz on 11-01-2023 Basophils (Bld) [#/Vol] 0.1 10*3/uL Normal 0.0-0.2 [facility] Comment on above: Order Comment: Reaso n for Exam Primary hypertension Result Comment: PERF ORMED BY: [place] [address] PATHOLOGIST RAIL ASSEMBLER PALOMO WESLEY M.D. Performed By: #### C BC, TSH3, [id number], CMP, SHAMA, FE and TIBC, LIPID, FSH, T3F, CUU, [id number], UA #### [address] #### ESTRADIOL, LH #### [facility] , Automated blood monocyte cou ntOrdered By: Jes Cruz on 11-01-2023 Monocytes (Bld) [#/Vol] 0.8 10*3/uL Normal 0.0-0.8 [facility] Comment on above: Order Comment: Reaso n for Exam Primary hypertension Performed By: #### C BC, TSH3, [id number], CMP, SHAMA, FE and TIBC, LIPID, FSH, T3F, CUU, [id number], UA #### [address] #### ESTRADIOL, LH #### [facility] , Automated eosinophil %Ordere d By: Jes Cruz on 11-01-2023 Eosinophils/100 WBC (Bld) 1.5 % Normal . [facility] Comment on above: Order Comment: Reaso n for Exam Primary hypertension Performed By: #### C BC, TSH3, [id number], CMP, SHAMA, FE and TIBC, LIPID, FSH, T3F, CUU, [id number], UA #### [place] [address] [place] #### ESTRADIOL, LH #### [facility] , Automated eosinophil countOr dered By: Jes Cruz on 11-01-2023 Eosinophils (Bld) [#/Vol] 0.1 10*3/uL Normal 0.0-0.45 [facility] Comment on above: Order Comment: Reaso n for Exam Primary hypertension Performed By: #### C BC, TSH3, [id number], CMP, SHAMA, FE and TIBC, LIPID, FSH, T3F, CUU, [id number], UA #### [facility] [address] [place] [address] [place] #### ESTRADIOL, LH #### [facility] , Automated monocyte %Ordered By: Jes Anthony on 11-01-2023 Monocytes/100 WBC (Bld) 10.8 % Normal . [facility] Comment on above: Order Comment: Reaso n for Exam Primary hypertension Performed By: #### C BC, TSH3, [id number], CMP, SHAMA, FE and TIBC, LIPID, FSH, T3F, CUU, [id number], UA #### [facility] [address] [place] [address] [place] #### ESTRADIOL, LH #### [facility] , Automated neutrophil %Ordere d By: Jes Cruz on 11-01-2023 Neutrophils/100 WBC (Bld) 58.6 % Normal . [facility] Comment on above: Order Comment: Reaso n for Exam Primary hypertension Performed By: #### C BC, TSH3, [id number], CMP, SHAMA, FE and TIBC, LIPID, FSH, T3F, CUU, [id number], UA #### [facility] [address] [place] [address] [place] #### ESTRADIOL, LH #### [facility] , Bilirubin Test strip Ql (U)O rdered By: Jes Cruz on 11-01-2023 Bilirubin Ql (U) Negative Negative [facility] Bilirubin.total [Mass/volume ] in Serum or PlasmaOrdered By: Jes Cruz on 11-01-2023 Bilirubin [Mass/Vol] 0.4 mg/dL Normal 0.3-1.0 [facility] Comment on above: Order Comment: Reaso n for Exam Primary hypertension Reason for Exam Low iron Reason for Exam Primary hypertension;Hypertriglyceridemia Reason for Exam Hot flashes Reason for Exam Vitamin D deficiency Performed By: #### C BC, TSH3, [id number], CMP, SHAMA, FE and TIBC, LIPID, FSH, T3F, CUU, [id number], UA #### [facility] [address] #### ESTRADIOL, LH #### [facility] , Calcium [Mass/volume] in Ser um or PlasmaOrdered By: Jes Cruz on 11-01-2023 Calcium [Mass/Vol] 9.4 mg/dL Normal 8.6-10.3 [facility] Comment on above: Order Comment: Reaso n for Exam Primary hypertension Reason for Exam Low iron Reason for Exam Primary hypertension;Hypertriglyceridemia Reason for Exam Hot flashes Reason for Exam Vitamin D deficiency Performed By: #### C BC, TSH3, [id number], CMP, SHAMA, FE and TIBC, LIPID, FSH, T3F, CUU, [id number], UA #### [facility] [address] [place] [address] #### ESTRADIOL, LH #### [facility] , Carbon dioxide, total [Moles /volume] in Serum or PlasmaOrdered By: Jes Cruz on 11-01-2023 CO2 [Moles/Vol] 28.5 mmol/L Normal 21.0-31.0 [facility] Comment on above: Order Comment: Reaso n for Exam Primary hypertension Reason for Exam Low iron Reason for Exam Primary hypertension;Hypertriglyceridemia Reason for Exam Hot flashes Reason for Exam Vitamin D deficiency Performed By: #### C BC, TSH3, [id number], CMP, SHAMA, FE and TIBC, LIPID, FSH, T3F, CUU, [id number], UA #### [facility] [address] [place] [address] [place] #### ESTRADIOL, LH #### [facility] , Chloride [Moles/volume] in S shanna or PlasmaOrdered By: Jes Cruz on 11-01-2023 Chloride [Moles/Vol] 105 mmol/L Normal 98-107 [facility] Comment on above: Order Comment: Reaso n for Exam Primary hypertension Reason for Exam Low iron Reason for Exam Primary hypertension;Hypertriglyceridemia Reason for Exam Hot flashes Reason for Exam Vitamin D deficiency Performed By: #### C BC, TSH3, [id number], CMP, SHAMA, FE and TIBC, LIPID, FSH, T3F, CUU, [id number], UA #### [facility] [address] [place] [address] [place] #### ESTRADIOL, LH #### [facility] , Cholesterol [Mass/volume] in Serum or PlasmaOrdered By: Jes Cruz on 11-01-2023 Cholesterol [Mass/Vol] 285 mg/dL High 140-200 [facility] Comment on above: Chol less than [...] high risk Performed By: #### C BC, TSH3, [id number], CMP, SHAMA, FE and TIBC, LIPID, FSH, T3F, CUU, [id number], UA #### [facility] [address] [place] [address] [place] #### ESTRADIOL, LH #### [facility] , Cholesterol in LDL Calc [Mas s/Vol]Ordered By: Jes Cruz on 11-01-2023 Cholesterol in LDL [Mass/Vol] 198 mg/dL High 0-100 [facility] Comment on above: LDL ATP III CLASSIFI CATIONLDL less than 100 mg/dL OptimalLDL 100-129 mg/dL Near or above optimalLDL 130-159 mg/dL Borderline highLDL 160-189 mg/dL HighLDL greater than 189 mg/dL Very high Cholesterol in VLDL Calc [Ma ss/Vol]Ordered By: Jes Cruz on 11-01-2023 Cholesterol in VLDL [Mass/Vol] 29 mg/dL [facility] Color of Urine by AutoOrdere d By: Jes Cruz on 11-01-2023 Color (U) Light-yellow Normal Yellow [facility] Comment on above: Order Comment: Reaso n for Exam Microscopic hematuria Name Collection Type:: Voided Performed By: #### C BC, TSH3, [id number], CMP, SHAMA, FE and TIBC, LIPID, FSH, T3F, CUU, [id number], UA #### [place] [address] [place] #### ESTRADIOL, LH #### [facility] , Complete Blood Count Auto Di ffon 11-01-2023 Mean Corpuscular HGB Conc 33.6 g/dL Normal 32.0-35.0 [facility] Comment on above: Order Comment: Reaso n for Exam Primary hypertension Performed By: #### C BC, TSH3, [id number], CMP, SHAMA, FE and TIBC, LIPID, FSH, T3F, CUU, [id number], UA #### [place] [address] [place] #### ESTRADIOL, LH #### [facility] , NRBC% 0.1 /100{WBC} Normal 0-0.5 [facility] Comment on above: Order Comment: Reaso n for Exam Primary hypertension Performed By: #### C BC, TSH3, [id number], CMP, SHAMA, FE and TIBC, LIPID, FSH, T3F, CUU, [id number], UA #### [place] [address] [place] #### ESTRADIOL, LH #### [facility] , Comprehensive Metabolic Pane bryon 11-01-2023 Albumin [Mass/Vol] 4.3 g/dL Normal 3.5-5.7 [facility] Comment on above: Order Comment: Reaso n for Exam Primary hypertension Reason for Exam Low iron Reason for Exam Primary hypertension;Hypertriglyceridemia Reason for Exam Hot flashes Reason for Exam Vitamin D deficiency Performed By: #### C BC, TSH3, [id number], CMP, SHAMA, FE and TIBC, LIPID, FSH, T3F, CUU, [id number], UA #### [place] [address] [place] #### ESTRADIOL, LH #### [facility] , GFR/1.73 sq M.predicted MDRD (S/P/Bld) [Vol rate/Area] mL/min/{1.73_m2} Normal [facility] Comment on above: Order Comment: Reaso n for Exam Primary hypertension Reason for Exam Low iron Reason for Exam Primary hypertension;Hypertriglyceridemia Reason for Exam Hot flashes Reason for Exam Vitamin D deficiency Performed By: #### C BC, TSH3, [id number], CMP, SHAMA, FE and TIBC, LIPID, FSH, T3F, CUU, [id number], UA #### [address] #### ESTRADIOL, LH #### [facility] , Creatinine [Mass/volume] in Serum or PlasmaOrdered By: Jes Cruz on 11-01-2023 Creatinine [Mass/Vol] 0.75 mg/dL Normal 0.60-1.20 [facility] Comment on above: Order Comment: Reaso n for Exam Primary hypertension Reason for Exam Low iron Reason for Exam Primary hypertension;Hypertriglyceridemia Reason for Exam Hot flashes Reason for Exam Vitamin D deficiency Performed By: #### C BC, TSH3, [id number], CMP, SHAMA, FE and TIBC, LIPID, FSH, T3F, CUU, [id number], UA #### [place] [address] [place] #### ESTRADIOL, LH #### [facility] , Erythrocyte distribution wid th [Ratio] by Automated countOrdered By: Jes Cruz on 11-01-2023 Erythrocyte distribution width (RBC) [Ratio] 13.1 % Normal 11.9-15.3 [facility] Comment on above: Order Comment: Reaso n for Exam Primary hypertension Performed By: #### C BC, TSH3, [id number], CMP, SHAMA, FE and TIBC, LIPID, FSH, T3F, CUU, [id number], UA #### [place] [address] [place] #### ESTRADIOL, LH #### [facility] , Erythrocytes [#/volume] in B lood by Automated countOrdered By: Jes Cruz on 11-01-2023 RBC (Bld) [#/Vol] 4.13 10*6/uL Normal 3.60-5.00 [facility] Comment on above: Order Comment: Reaso n for Exam Primary hypertension Performed By: #### C BC, TSH3, [id number], CMP, SHAMA, FE and TIBC, LIPID, FSH, T3F, CUU, [id number], UA #### [facility] [address] #### ESTRADIOL, LH #### [facility] , Estradiolon 11-01-2023 Estradiol <5.0 Normal . [facility] Comment on above: Order Comment: Reaso n for Exam Hot flashes Result Comment: Adul t Female Range Follicular phase 12.5 - 166.0 Ovulation phase 85.8 - 498.0 Luteal phase 43.8 - 211.0 Postmenopausal <6.0 - 54.7 1st trimester 215.0 - >4300.0 Mp ECLIA methodology Performed at: [employer] [id number] Save [employer] Operator: Kurtis Gallegos PhD, Phone: [phone] PERFORMED BY: [place] [address] PATHOLOGIST RAIL ASSEMBLER PALOMO WESLEY M.D. Performed By: #### C BC, TSH3, [id number], CMP, SHAMA, FE and TIBC, LIPID, FSH, T3F, CUU, [id number], UA ####[facility] [address]#### ESTRADIOL, LH ####[facility] , Ferritin [Mass/volume] in Se rum or PlasmaOrdered By: Jes Cruz on 11-01-2023 Ferritin [Mass/Vol] 42.8 ng/mL Normal 11.0-306.8 [facility] Comment on above: Order Comment: Reaso n for Exam Primary hypertension Reason for Exam Low iron Reason for Exam Primary hypertension;Hypertriglyceridemia Reason for Exam Hot flashes Reason for Exam Vitamin D deficiency Performed By: #### C BC, TSH3, [id number], CMP, SHAMA, FE and TIBC, LIPID, FSH, T3F, CUU, [id number], UA #### [facility] [address] [place] [address] [place] #### ESTRADIOL, LH #### [facility] , Folate [Mass/volume] in Seru m or PlasmaOrdered By: Jes Cruz on 11-01-2023 Folate [Mass/Vol] 10.3 ng/mL >5.9 [facility] Comment on above: Folate reference ran ge: >5.9 ng/mlThe WHO technical consultation on folate and vitamin [id number] has determined that folate concentrations lessthan 4 ng/ml are considered deficient. Follicle Stimulating Hormone on 11-01-2023 Follicle Stimulating Hormone 32.3 m[iU]/mL Normal [facility] Comment on above: Order Comment: [...] 1.3-19.3 mIU/mL Performed By: #### C BC, TSH3, [id number], CMP, SHAMA, FE and TIBC, LIPID, FSH, T3F, CUU, [id number], UA ####[facility] [address] [place] [address] [place]#### ESTRADIOL, LH ####[facility] , Follitropin [Units/volume] i n Serum or PlasmaOrdered By: Jes Cruz on 11-01-2023 Follitropin Qn 32.3 m[IU]/mL [facility] Comment on above: FEMALE NORMALS (KEVEN ENOPAUSE) MID-FOLLICULAR PHASE: 3.9-8.8 mIU/mL MID-CYCLE PEAK: 4.5-22.5 mIU/mL MID-LUTEAL PHASE: 1.8-5.1 mIU/mLFEMALE NORMALS (POSTMENOPAUSE): 16.7-113.6 mIU/mLMALE NORMALS: 1.3-19.3 mIU/mL Glucose [Mass/volume] in Ser um or PlasmaOrdered By: Jes Cruz on 11-01-2023 Glucose [Mass/Vol] 95 mg/dL Normal 70-100 [facility] Comment on above: ADA recommended refe rence [...] for Exam Vitamin D deficiency Result Comment: Inman om Glucose Reference Range is dependent on time and content of last meal. Glucose of more than 200 mg/dL in a nonstressed, ambulatory subject supports the diagnosis of Diabetes Mellitus. ADA recommended reference range Performed By: #### C BC, TSH3, [id number], CMP, SHAMA, FE and TIBC, LIPID, FSH, T3F, CUU, [id number], UA #### [facility] [address] [place] [address] [place] #### ESTRADIOL, LH #### [facility] , Glucose [Mass/volume] in Uri ne by Test stripOrdered By: Jes Cruz on 11-01-2023 Glucose Test strip (U) [Mass/Vol] Normal mg/dL Normal [facility] Hematocrit [Volume Fraction] of Blood by Automated countOrdered By: Jes Cruz on 11-01-2023 Hematocrit (Bld) [Volume fraction] 39.6 % Normal 34.0-46.4 [facility] Comment on above: Order Comment: Reaso n for Exam Primary hypertension Performed By: #### C BC, TSH3, [id number], CMP, SHAMA, FE and TIBC, LIPID, FSH, T3F, CUU, [id number], UA #### [facility] [address] [place] [address] [place] #### ESTRADIOL, LH #### [facility] , Hemoglobin Test strip Ql (U) Ordered By: Jes Anthony on 11-01-2023 Hemoglobin Ql (U) Negative Negative [facility] Hemoglobin [Mass/volume] in BloodOrdered By: Jes Cruz on 11-01-2023 Hemoglobin (Bld) [Mass/Vol] 13.3 g/dL Normal 11.8-15.4 [facility] Comment on above: Order Comment: Reaso n for Exam Primary hypertension Performed By: #### C BC, TSH3, [id number], CMP, SHAMA, FE and TIBC, LIPID, FSH, T3F, CUU, [id number], UA #### [facility] [address] [place] [address] [place] #### ESTRADIOL, LH #### [facility] , Iron [Mass/volume] in Serum or PlasmaOrdered By: Jes Cruz on 11-01-2023 Iron [Mass/Vol] 106 ug/dL Normal 50-212 [facility] Comment on above: Order Comment: Reaso n for Exam Primary hypertension Reason for Exam Low iron Reason for Exam Primary hypertension;Hypertriglyceridemia Reason for Exam Hot flashes Reason for Exam Vitamin D deficiency Performed By: #### C BC, TSH3, [id number], CMP, SHAMA, FE and TIBC, LIPID, FSH, T3F, CUU, [id number], UA #### [facility] [address] [place] [address] [place] #### ESTRADIOL, LH #### [facility] , Iron and TIBC Profileon 10-04 % Iron Saturation 25.1 % Normal 20-50 [facility] Comment on above: Order Comment: Reaso n for Exam Primary hypertension Reason for Exam Low iron Reason for Exam Primary hypertension;Hypertriglyceridemia Reason for Exam Hot flashes Reason for Exam Vitamin D deficiency Performed By: #### C BC, TSH3, [id number], CMP, SHAMA, FE and TIBC, LIPID, FSH, T3F, CUU, [id number], UA #### [facility] [address] [place] [address] [place] #### ESTRADIOL, LH #### [facility] , Total Iron Binding Capacity 423 ug/dL Normal 255-450 [facility] Comment on above: Order Comment: Reaso n for Exam Primary hypertension Reason for Exam Low iron Reason for Exam Primary hypertension;Hypertriglyceridemia Reason for Exam Hot flashes Reason for Exam Vitamin D deficiency Performed By: #### C BC, TSH3, [id number], CMP, SHAMA, FE and TIBC, LIPID, FSH, T3F, CUU, [id number], UA #### [facility] [address] [place] [address] [place] #### ESTRADIOL, LH #### [facility] , Iron binding capacity [Mass/ volume] in Serum or PlasmaOrdered By: Jes Cruz on 11-01-2023 Iron binding capacity [Mass/Vol] 423 ug/dL 255-450 [facility] Iron saturation [Mass Fracti on] in Serum or PlasmaOrdered By: Jes Cruz on 11-01-2023 Iron saturation [Mass fraction] 25.1 % 20-50 [facility] Ketones [Presence] in Urine by Test stripOrdered By: Jes Cruz on 11-01-2023 Ketones Ql (U) Negative Normal Negative [facility] Comment on above: Order Comment: Reaso n for Exam Microscopic hematuria Name Collection Type:: Voided Performed By: #### C BC, TSH3, [id number], CMP, SHAMA, FE and TIBC, LIPID, FSH, T3F, CUU, [id number], UA #### [facility] [address] [place] [address] [place] #### ESTRADIOL, LH #### [facility] , Leukocyte esterase [Presence ] in Urine by Test stripOrdered By: Jes Cruz on 07-29-2024 Leukocyte esterase Test strip Ql (U) Negative Normal Negative [facility] Comment on above: Order Comment: Reaso n for Exam Microscopic hematuria Name Collection Type:: Voided Performed By: #### C BC, TSH3, [id number], CMP, SHAMA, FE and TIBC, LIPID, FSH, T3F, CUU, [id number], UA #### [facility] [address] #### ESTRADIOL, LH #### [facility] , Leukocytes [#/volume] correc ricardo for nucleated erythrocytes in Blood by Automated counOrdered By: Jes Cruz on 11-01-2023 WBC corrected for nucl RBC Auto (Bld) [#/Vol] 7.3 10*3/uL 3.8-11.6 [facility] Leukocytes [#/volume] in Blo od by Automated countOrdered By: Jes Cruz on 11-01-2023 WBC (Bld) [#/Vol] 7.3 10*3/uL Normal 3.8-11.6 [facility] Comment on above: Order Comment: Reaso n for Exam Primary hypertension Performed By: #### C BC, TSH3, [id number], CMP, SHAMA, FE and TIBC, LIPID, FSH, T3F, CUU, [id number], UA #### [address] #### ESTRADIOL, LH #### [facility] , Lipid Panelon 11-01-2023 LDL Cholesterol,Calculated 198 mg/dL High 0-100 [facility] Comment on above: Order Comment: [...] Very high Performed By: #### C BC, TSH3, [id number], CMP, SHAMA, FE and TIBC, LIPID, FSH, T3F, CUU, [id number], UA #### [facility] [address] [place] [address] [place] #### ESTRADIOL, LH #### [facility] , Triglyceride w/Reflex 145 mg/dL Normal 0-149 [facility] Comment on above: Order Comment: [...] test method. Performed By: #### C BC, TSH3, [id number], CMP, SHAMA, FE and TIBC, LIPID, FSH, T3F, CUU, [id number], UA #### [address] #### ESTRADIOL, LH #### [facility] , VLDL CHOLESTEROL 29 mg/dL Normal [facility] Comment on above: Order Comment: Reaso n for Exam Primary hypertension Reason for Exam Low iron Reason for Exam Primary hypertension;Hypertriglyceridemia Reason for Exam Hot flashes Reason for Exam Vitamin D deficiency Performed By: #### C BC, TSH3, [id number], CMP, SHAMA, FE and TIBC, LIPID, FSH, T3F, CUU, [id number], UA #### [place] [address] [place] #### ESTRADIOL, LH #### [facility] , Luteinizing Hormoneon 2023 Luteinizing Hormone 20.7 m[iU]/mL Normal . [facility] Comment on above: Order Comment: Reaso n for Exam Hot flashes Result Comment: Adul t Female Range Follicular phase 2.4 - 12.6 Ovulation phase 14.0 - 95.6 Luteal phase 1.0 - 11.4 Postmenopausal 7.7 - 58.5 Performed By: #### C BC, TSH3, [id number], CMP, SHAMA, FE and TIBC, LIPID, FSH, T3F, CUU, [id number], UA ####[facility] [address] [place] [address] [place]#### ESTRADIOL, LH ####[facility] , Lymphocytes [#/volume] in Bl ood by Automated countOrdered By: Jes Cruz on 11-01-2023 Lymphocytes (Bld) [#/Vol] 2.0 10*3/uL Normal 1.00-4.8 [facility] Comment on above: Order Comment: Reaso n for Exam Primary hypertension Performed By: #### C BC, TSH3, [id number], CMP, SHAMA, FE and TIBC, LIPID, FSH, T3F, CUU, [id number], UA #### [facility] [address] [place] [address] #### ESTRADIOL, LH #### [facility] , Lymphocytes/100 leukocytes i n Blood by Automated countOrdered By: Jes Cruz on 11-01-2023 Lymphocytes/100 WBC (Bld) 28.0 % Normal . [facility] Comment on above: Order Comment: Reaso n for Exam Primary hypertension Performed By: #### C BC, TSH3, [id number], CMP, SHAMA, FE and TIBC, LIPID, FSH, T3F, CUU, [id number], UA #### [facility] [address] [place] [address] [place] #### ESTRADIOL, LH #### [facility] , MCH [Entitic mass] by Automa ricardo countOrdered By: Jes Cruz on 11-01-2023 MCH (RBC) [Entitic mass] 32.3 pg Normal 24.7-34.3 [facility] Comment on above: Order Comment: Reaso n for Exam Primary hypertension Performed By: #### C BC, TSH3, [id number], CMP, SHAMA, FE and TIBC, LIPID, FSH, T3F, CUU, [id number], UA #### [facility] [address] [place] [address] [place] #### ESTRADIOL, LH #### [facility] , MCHC Auto (RBC) [Mass/Vol]Or dered By: Jes Cruz on 11-01-2023 MCHC (RBC) [Mass/Vol] 33.6 g/dL 32.0-35.0 [facility] MCV [Entitic volume] by Auto mated countOrdered By: Jes Cruz on 11-01-2023 MCV (RBC) [Entitic vol] 96.0 fL Normal 80-100 [facility] Comment on above: Order Comment: Reaso n for Exam Primary hypertension Performed By: #### C BC, TSH3, [id number], CMP, SHAMA, FE and TIBC, LIPID, FSH, T3F, CUU, [id number], UA #### [facility] [address] [place] [address] #### ESTRADIOL, LH #### [facility] , Neutrophils [#/volume] in Bl ood by Automated countOrdered By: Jes Cruz on 11-01-2023 Neutrophils (Bld) [#/Vol] 4.3 10*3/uL Normal 1.8-7.7 [facility] Comment on above: Order Comment: Reaso n for Exam Primary hypertension Performed By: #### C BC, TSH3, [id number], CMP, SHAMA, FE and TIBC, LIPID, FSH, T3F, CUU, [id number], UA #### [facility] [address] [place] [address] [place] #### ESTRADIOL, LH #### [facility] , Nitrite Test strip Ql (U)Ord ered By: Jes Cruz on 11-01-2023 Nitrite Ql (U) Negative Negative [facility] No Panel InformationOrdered By: Jes Cruz on 11-01-2023 Estimated GFR (CKD-EPI) > 60.0 mL/Min [facility] Creatinine Clearance (Chem N/A [facility] Nucleated erythrocytes [Pres ence] in Blood by Automated countOrdered By: Jes Cruz on 11-01-2023 Nucleated RBC Auto Ql (Bld) 0.1 /100{WBC} 0-0.5 [facility] Platelet mean volume [Entiti c volume] in Blood by Automated countOrdered By: Jes Cruz on 11-01-2023 Platelet mean volume (Bld) [Entitic vol] 8.3 fL Normal 6.3-10.7 [facility] Comment on above: Order Comment: Reaso n for Exam Primary hypertension Performed By: #### C BC, TSH3, [id number], CMP, SHAMA, FE and TIBC, LIPID, FSH, T3F, CUU, [id number], UA #### [facility] [address] [place] [address] [place] #### ESTRADIOL, LH #### [facility] , Platelets [#/volume] in Bloo d by Automated countOrdered By: Jes Anthony on 11-01-2023 Platelets (Bld) [#/Vol] 384 10*3/uL Normal 150-450 [facility] Comment on above: Order Comment: Reaso n for Exam Primary hypertension Performed By: #### C BC, TSH3, [id number], CMP, SHAMA, FE and TIBC, LIPID, FSH, T3F, CUU, [id number], UA #### [facility] [address] [place] [address] [place] #### ESTRADIOL, LH #### [facility] , Potassium [Moles/volume] in Serum or PlasmaOrdered By: Jes Anthony on 11-01-2023 Potassium [Moles/Vol] 4.3 mmol/L Normal 3.5-5.1 [facility] Comment on above: Order Comment: Reaso n for Exam Primary hypertension Reason for Exam Low iron Reason for Exam Primary hypertension;Hypertriglyceridemia Reason for Exam Hot flashes Reason for Exam Vitamin D deficiency Performed By: #### C BC, TSH3, [id number], CMP, SHAMA, FE and TIBC, LIPID, FSH, T3F, CUU, [id number], UA #### [facility] [address] [place] [address] [place] #### ESTRADIOL, LH #### [facility] , Protein Test strip (U) [Mass /Vol]Ordered By: Jes Cruz on 11-01-2023 Protein (U) [Mass/Vol] Negative Negative [facility] Protein [Mass/volume] in Ser um or PlasmaOrdered By: Jes Cruz on 11-01-2023 Protein [Mass/Vol] 6.9 g/dL Normal 6.4-8.9 [facility] Comment on above: Order Comment: Reaso n for Exam Primary hypertension Reason for Exam Low iron Reason for Exam Primary hypertension;Hypertriglyceridemia Reason for Exam Hot flashes Reason for Exam Vitamin D deficiency Performed By: #### C BC, TSH3, [id number], CMP, SHAMA, FE and TIBC, LIPID, FSH, T3F, CUU, [id number], UA #### [facility] [address] [place] [address] #### ESTRADIOL, LH #### [facility] , Serum globulin measurement b y calculation (mass/volume)Ordered By: Jes Cruz on 11-01-2023 Globulin (S) [Mass/Vol] 2.6 g/dL [facility] Comment on above: Order Comment: Reaso n for Exam Primary hypertension Reason for Exam Low iron Reason for Exam Primary hypertension;Hypertriglyceridemia Reason for Exam Hot flashes Reason for Exam Vitamin D deficiency Performed By: #### C BC, TSH3, [id number], CMP, SHAMA, FE and TIBC, LIPID, FSH, T3F, CUU, [id number], UA #### [facility] [address] [place] [address] [place] #### ESTRADIOL, LH #### [facility] , Serum or plasma albumin/glob ulin mass ratioOrdered By: Jes Cruz on 11-01-2023 Albumin/Globulin [Mass ratio] 1.7 {ratio} [facility] Comment on above: Order Comment: Reaso n for Exam Primary hypertension Reason for Exam Low iron Reason for Exam Primary hypertension;Hypertriglyceridemia Reason for Exam Hot flashes Reason for Exam Vitamin D deficiency Performed By: #### C BC, TSH3, [id number], CMP, SHAMA, FE and TIBC, LIPID, FSH, T3F, CUU, [id number], UA #### [facility] [address] [place] [address] [place] #### ESTRADIOL, LH #### [facility] , Serum or plasma anion gap de terminationOrdered By: Jes Cruz on 11-01-2023 Anion gap [Moles/Vol] 10.8 mmol/L Normal 6.0-15.0 [facility] Comment on above: Order Comment: Reaso n for Exam Primary hypertension Reason for Exam Low iron Reason for Exam Primary hypertension;Hypertriglyceridemia Reason for Exam Hot flashes Reason for Exam Vitamin D deficiency Performed By: #### C BC, TSH3, [id number], CMP, SHAMA, FE and TIBC, LIPID, FSH, T3F, CUU, [id number], UA #### [facility] [address] [place] [address] [place] #### ESTRADIOL, LH #### [facility] , Serum or plasma estradiol (E 2) measurement (mass/volume)Ordered By: Jes Cruz on 11-01-2023 E2 [Mass/Vol] pg/mL . [facility] Comment on above: Adult Female Range F ollicular phase 12.5 - 166.0 Ovulation phase 85.8 - 498.0 Luteal phase 43.8 - 211.0 Postmenopausal <6.0 - 54.7 1st trimester 215.0 - >4300.0Roche ECLIA methodologyPerformed at: - [facility] [address] [id number] Director: Kurtis Gallegos PhD, Phone: [phone] Serum or plasma high density lipoprotein (HDL) cholesterol measurementOrdered By: Jes Cruz on 11-01-2023 Cholesterol in HDL [Mass/Vol] 58 mg/dL Normal 23-92 [facility] Comment on above: HDL CHOL [...] mg/dL HIGH Performed By: #### C BC, TSH3, [id number], CMP, SHAMA, FE and TIBC, LIPID, FSH, T3F, CUU, [id number], UA #### [facility] [address] [place] [address] [place] #### ESTRADIOL, LH #### [facility] , Serum or plasma lutropin paramjit surement (units/volume)Ordered By: Jes Cruz on 11-01-2023 Lutropin Qn 20.7 m[IU]/mL . [facility] Comment on above: Adult Female Range F ollicular phase 2.4 - 12.6 Ovulation phase 14.0 - 95.6 Luteal phase 1.0 - 11.4 Postmenopausal 7.7 - 58.5 Serum or plasma total choles terol/high density lipoprotein (HDL) cholesterol mass ratOrdered By: Jes Cruz on 11-01-2023 Cholesterol.total/Chol esterol in HDL [Mass ratio] 4.9 {ratio} Normal <5.0 [facility] Comment on above: Order Comment: Reaso n for Exam Primary hypertension Reason for Exam Low iron Reason for Exam Primary hypertension;Hypertriglyceridemia Reason for Exam Hot flashes Reason for Exam Vitamin D deficiency Performed By: #### C BC, TSH3, [id number], CMP, SHAMA, FE and TIBC, LIPID, FSH, T3F, CUU, [id number], UA #### [facility] [address] [place] [address] [place] #### ESTRADIOL, LH #### [facility] , Sodium [Moles/volume] in Ser um or PlasmaOrdered By: Jes Cruz on 11-01-2023 Sodium [Moles/Vol] 140 mmol/L Normal 136-145 [facility] Comment on above: Order Comment: Reaso n for Exam Primary hypertension Reason for Exam Low iron Reason for Exam Primary hypertension;Hypertriglyceridemia Reason for Exam Hot flashes Reason for Exam Vitamin D deficiency Performed By: #### C BC, TSH3, [id number], CMP, SHAMA, FE and TIBC, LIPID, FSH, T3F, CUU, [id number], UA #### [facility] [address] #### ESTRADIOL, LH #### [facility] , Specific gravity Test strip (U) [Rel density]Ordered By: Jes Cruz on 11-01-2023 Specific gravity (U) [Rel density] 1.014 1.001-1.030 [facility] Thyrotropin [Units/volume] i n Serum or PlasmaOrdered By: Jes Cruz on 11-01-2023 TSH Qn 1.49 m[IU]/L Normal 0.45-5.33 [facility] Comment on above: Order Comment: Reaso n for Exam Primary hypertension Reason for Exam Low iron Reason for Exam Primary hypertension;Hypertriglyceridemia Reason for Exam Hot flashes Reason for Exam Vitamin D deficiency Performed By: #### C BC, TSH3, [id number], CMP, SHAMA, FE and TIBC, LIPID, FSH, T3F, CUU, [id number], UA ####[facility] [address] [place] [address] [place]#### ESTRADIOL, LH ####[facility] , Transferrin [Mass/volume] in Serum or PlasmaOrdered By: Jes Cruz on 11-01-2023 Transferrin [Mass/Vol] 302 mg/dL Normal 203-362 [facility] Comment on above: Order Comment: Reaso n for Exam Primary hypertension Reason for Exam Low iron Reason for Exam Primary hypertension;Hypertriglyceridemia Reason for Exam Hot flashes Reason for Exam Vitamin D deficiency Performed By: #### C BC, TSH3, [id number], CMP, SHAMA, FE and TIBC, LIPID, FSH, T3F, CUU, [id number], UA #### [facility] [address] [place] [address] [place] #### ESTRADIOL, LH #### [facility] , Triglyceride [Mass/volume] i n Serum or PlasmaOrdered By: Jes Cruz on 11-01-2023 Triglyceride [Mass/Vol] 145 mg/dL 0-149 [facility] Comment on above: TRIG ATP III CLASSIF ICATIONTRIG less than 150 mg/dL NormalTRIG 150-199 mg/dL Borderline highTRIG 200-500 mg/dL High TRIG greater than 500 mg/dL Very highStandard traceable to the Center for Disease Conrtrol and Prevention (CDC) test method. Triiodothyronine (T3) Freeon 11-01-2023 Triiodothyronine (T3) Free 2.86 pg/mL Normal 2.50-3.90 [facility] Comment on above: Order Comment: Reaso n for Exam Hot flashes Result Comment: PERF ORMED BY: [place] [address] PATHOLOGIST RAIL ASSEMBLER PALOMO WESLEY M.D. Performed By: #### C BC, TSH3, [id number], CMP, SHAMA, FE and TIBC, LIPID, FSH, T3F, CUU, [id number], UA #### [facility] [address] [place] [address] #### ESTRADIOL, LH #### [facility] , Triiodothyronine (T3) Free [ Mass/volume] in Serum or PlasmaOrdered By: Jes Cruz on 11-01-2023 Free T3 [Mass/Vol] 2.86 pg/mL 2.50-3.90 [facility] Urea nitrogen [Mass/volume] in Serum or PlasmaOrdered By: Jes Cruz on 11-01-2023 Urea nitrogen [Mass/Vol] 17 mg/dL Normal 7-25 [facility] Comment on above: Order Comment: Reaso n for Exam Primary hypertension Reason for Exam Low iron Reason for Exam Primary hypertension;Hypertriglyceridemia Reason for Exam Hot flashes Reason for Exam Vitamin D deficiency Performed By: #### C BC, TSH3, [id number], CMP, SHAMA, FE and TIBC, LIPID, FSH, T3F, CUU, [id number], UA #### [place] [address] [place] #### ESTRADIOL, LH #### [facility] , Urinalysison 11-01-2023 Bilirubin,Urine Negative Normal Negative [facility] Comment on above: Order Comment: Reaso n for Exam Microscopic hematuria Name Collection Type:: Voided Performed By: #### C BC, TSH3, [id number], CMP, SHAMA, FE and TIBC, LIPID, FSH, T3F, CUU, [id number], UA #### [place] [address] [place] #### ESTRADIOL, LH #### [facility] , Glucose Ql (U) Normal Normal Normal [facility] Comment on above: Order Comment: Reaso n for Exam Microscopic hematuria Name Collection Type:: Voided Performed By: #### C BC, TSH3, [id number], CMP, SHAMA, FE and TIBC, LIPID, FSH, T3F, CUU, [id number], UA #### [place] [address] [place] #### ESTRADIOL, LH #### [facility] , Nitrite,Urine Negative Normal Negative [facility] Comment on above: Order Comment: Reaso n for Exam Microscopic hematuria Name Collection Type:: Voided Performed By: #### C BC, TSH3, [id number], CMP, SHAMA, FE and TIBC, LIPID, FSH, T3F, CUU, [id number], UA #### [place] [address] [place] #### ESTRADIOL, LH #### [facility] , Occult Blood,Urine Negative Normal Negative [facility] Comment on above: Order Comment: Reaso n for Exam Microscopic hematuria Name Collection Type:: Voided Result Comment: PERF ORMED BY: [place] [address] PATHOLOGIST RAIL ASSEMBLER PALOMO WESLEY M.D. Performed By: #### C BC, TSH3, [id number], CMP, SHAMA, FE and TIBC, LIPID, FSH, T3F, CUU, [id number], UA #### [place] [address] [place] #### ESTRADIOL, LH #### [facility] , Protein,Urine Negative Normal Negative [facility] Comment on above: Order Comment: Reaso n for Exam Microscopic hematuria Name Collection Type:: Voided Performed By: #### C BC, TSH3, [id number], CMP, SHAMA, FE and TIBC, LIPID, FSH, T3F, CUU, [id number], UA #### [place] [address] [place] #### ESTRADIOL, LH #### [facility] , Specificy [place],Urine 1.014 Normal 1.001-1.030 [facility] Comment on above: Order Comment: Reaso n for Exam Microscopic hematuria Name Collection Type:: Voided Performed By: #### C BC, TSH3, [id number], CMP, SHAMA, FE and TIBC, LIPID, FSH, T3F, CUU, [id number], UA #### [place] [address] [place] #### ESTRADIOL, LH #### [facility] , Urobilinogen,Urine Normal Normal Normal [facility] Comment on above: Order Comment: Reaso n for Exam Microscopic hematuria Name Collection Type:: Voided Performed By: #### C BC, TSH3, [id number], CMP, SHAMA, FE and TIBC, LIPID, FSH, T3F, CUU, [id number], UA #### [place] [address] [place] #### ESTRADIOL, LH #### [facility] , Urine Cultureon 11-01-2023 Bacteria identified Cx Nom (U) Reason for Exam Microscopic hematuria Urine Reason for Exam: Microscopic hematuria : Urine <9,000 colonies/ml mixed bacterial skin contaminants 2 Days PERFORMED BY: [address] [place] [address] PATHOLOGIST RAIL ASSEMBLER PALOMO WESLEY M.D. Normal [facility] Comment on above: Performed By: #### C BC, TSH3, [id number], CMP, SHAMA, FE and TIBC, LIPID, FSH, T3F, CUU, [id number], UA ####[facility] [id number] [address]#### ESTRADIOL, LH ####[facility] , Urine appearanceOrdered By: Jes Cruz on 11-01-2023 Appearance (U) Clear Normal Clear [facility] Comment on above: Order Comment: Reaso n for Exam Microscopic hematuria Name Collection Type:: Voided Performed By: #### C BC, TSH3, [id number], CMP, SHAMA, FE and TIBC, LIPID, FSH, T3F, CUU, [id number], UA #### [facility] [address] #### ESTRADIOL, LH #### [facility] , Urine culture routineOrdered By: Jes Cruz on 11-01-2023 Bacteria identified Cx Nom (U) 2 Days [facility] Urobilinogen Test strip (U) [Mass/Vol]Ordered By: Jes Cruz on 11-01-2023 Urobilinogen (U) [Mass/Vol] Normal mg/dL Normal [facility] Vit. B12/Folate Profileon Folate 10.3 ng/mL Normal >5.9 [facility] Comment on above: Order Comment: [...] considered deficient. Performed By: #### C BC, TSH3, [id number], CMP, SHAMA, FE and TIBC, LIPID, FSH, T3F, CUU, [id number], UA ####[facility] [place] [address] [facility]#### ESTRADIOL, LH ####[facility] , Vitamin B12 ser/plasOrdered By: Jes Cruz on 11-01-2023 Cobalamin (Vitamin B12) [Mass/Vol] 208 pg/mL Normal 180-914 [facility] Comment on above: Order Comment: Reaso n for Exam Primary hypertension Reason for Exam Low iron Reason for Exam Primary hypertension;Hypertriglyceridemia Reason for Exam Hot flashes Reason for Exam Vitamin D deficiency Performed By: #### C BC, TSH3, [id number], CMP, SHAMA, FE and TIBC, LIPID, FSH, T3F, CUU, [id number], UA ####[facility] [place] [address] [facility]#### ESTRADIOL, LH ####[facility] , Vitamin D 25 Hydroxy Totalon 11-01-2023 Vitamin D 25 Hydroxy Total 34.2 ng/mL Normal 30-100 [facility] Comment on above: Order Comment: [...] practice guideline. JCEM. 2010; 96(7):1911-30. PERFORMED BY: [facility] [address] [place] [address] PATHOLOGIST RAIL ASSEMBLER PALOMO WESLEY M.D. Performed By: #### C BC, TSH3, [id number], CMP, SHAMA, FE and TIBC, LIPID, FSH, T3F, CUU, [id number], UA ####[place] [place] [address] [facility]#### ESTRADIOL, LH ####[facility] , Vitamin D+Metabolites [Mass/ volume] in Serum or PlasmaOrdered By: Jes Cruz on 11-01-2023 Vitamin D+Metabolites [Mass/Vol] 34.2 ng/mL 30-100 [facility] Comment on above: VITAMIN D STATUS 25( [place])VITAMIN D RANGE (ng/mL) Deficient <20 Insufficient 20 to <30Sufficient 30 to 100Reference: Baron MF,Suze NC, Abdiel MAXWELL, et al. Evaluation,treatment, and prevention of vitamin D deficiency; an Endocrine Society clinical practice guideline. JCEM. 2010; 96(7):1911-30. pH of Urine by Test stripOrd ered By: Jes Cruz on 11-01-2023 pH (U) 6.5 [pH] Normal 5.0-9.0 [facility] Comment on above: Order Comment: Reaso n for Exam Microscopic hematuria Name Collection Type:: Voided Performed By: #### C BC, TSH3, [id number], CMP, SHAMA, FE and TIBC, LIPID, FSH, T3F, CUU, [id number], UA #### [facility] [address] [place] [address] #### ESTRADIOL, LH #### [facility] , Ambulatory Visit Summaryon 0 [...] for choosing us for your care. Normal [facility] Provider Letteron 10-14-2023 Provider Letter Provider Letter October 14, 2023 ISELA CRAIG [address] [place] [id number] : 1970 To Whom It May Concern, Please excuse above patient from work. Date of Illness: From: 10/14/23 To: 10/14/23 May Return to Work On: Patient had an appointment on 10/14/23 with SHABNAM Bowens Restrictions: None Comments: Patient had an appointment with SHABNAM Bowens on 10/14/23 Sincerely, [facility] , option #[address] [facility] Urology Office/Clinic Noteon 10-14-2023 Urology Office/Clinic Note [...] E&M of Est. Patient Moderate 30-39 Min 34120 2. History of kidney stones (Z87.442: Personal [...] Urnls Dip Stick Auto w/o Microscopy POC 05389 Follow-up With When Contact Information [facility] [address] [address] Business (1) Additional Instructions: for [...] disease: Mother. (more content not included)... Normal [facility] Comment on above: Result Comment: Elec tronically Signed By: JES ROLLE PA-C.[email or web address]\Date and Time Signed: 10/14/23 13:24 EDT Main OR Intraoperative Recor don 10-05-2023 Main OR Intraoperative Record Main OR Intraoperative Record IntraOp Document Type FTURO Summary Primary Physician: Alexandro PARTIDA MD Finalized Date/Time: 10/05/23 09:45:46 Pt. Name: ISELA CRAIG Maya/Sex: 1970 Female Med Rec #: [id number] Physician: Alexandro PARTIDA MD Financial #: [id number] Pt. Type: O Room/Bed: / Admit/Disch: 10/05/23 [...] Kendall R Role Performed Surgeon - Primary Chip Separator - Primary Scrub - Primary Time In [...] 10/05/23 09:42 Estrella Aguirre 10/05/23 09:[address] [facility] Main OR Preoperative Recordo n 10-05-2023 Main OR Preoperative Record Main OR Preoperative Record Holding Area Document Type FTURO Summary Primary Physician: Alexandro PARTIDA MD Finalized Date/Time: 10/05/23 08:57:00 Pt. Name: ISELA CRAIG/Sex: 1970 Female Med Rec #: [id number] Physician: Alexanrdo PARTIDA MD Financial #: [id number] Pt. Type: O Room/Bed: / Admit/Disch: 10/05/23 [...] SEAN Pagan RN, Ruthann 10/05/23 08:[address] [facility] Operative Reporton Operative Report Operative Report Patient: [...] Kim Rolle in a month or 2.. [address] [facility] Comment on above: Result Comment: Elec tronically Signed By: Alexandro PARTIDA MD\.br\Date and Time Signed: 10/05/23 09:46 EDT Provider Letteron 10-05-2023 Provider Letter Provider Letter October 05, 2023 To Whom It May Concern, Please excuse above patient from work. Date of Illness: From: 10/05/2023 To: 10/05/2023 May Return On:10/05/2023 Sincerely, [facility] [address], [address] [place] [address] [facility] Insurance Correspondenceon 0 09-28-2023 Insurance Correspondence [id number]#1. 00TIFF [facility] Coding Summary.on 09-23-2023 Coding Summary. ZEIEKchu45BOx6mZg+PG hl YWQ+RR3PIFMeK78ueUXjuI 2hW1STZOaFKrlsISUORLaD MtNpgoIpZJ0iqAIjHRDt IC8+HJ7bEUZbPqycqLOwk6 N4yHF7R41kas2dSHrwdLO1 ZWBpMeRucxrly0wyoBy2IF cuNmluOyBt WYNbwF14PIR2hU90Vj47wW ZryNFdj4abyBt3KxJkDAZe OFY8rNowZXqpt8VzRWUfF7 2lgEUxj7Q5 TBCkdWkvpWBlNeFilAB7rJ 1eNRjhhilju2bllrrtQtc6 ww68eYSkp3B3qZM9N1Hhau F2VKRsjAKj MrsswKARoE1vchxdi8mggi poHfIxJELuNPk0RYa0BGGz yZfzEbPjSG04DUN0KDAksf PcU7ZxXZMt cWdjHkT2e0D5Qm8AU7CTKw rzM1GHFFHCFNablCD+PC90 bd70F5SvHdvqHfl0RKQvWN T6oZT9xB2f VUWkRNelk2C6qRT0T2Tgzz Fqga3mj4hgAONaCQdbE70m xJIhe7H6YSStxNH9DDHnwF mjWmYozU42 Oyc+RSMqdUxyl1WwRzmjk2 ofq7nbyHr9SuulWTZqjcBy oZcdZLO3e1SjBm2vOVDdsD V1bGW6nE7d IlKpKeM5NGemQ333CpIbpE NmXjjxX39xC9TmrSY+PHRy Dxi8XRApjBkbRB8gJ7YpMP RpbmctbGVm bJwgOM5bEZYfgwphQIXquH 0qQSJkW3m2LzAlCkS3PYov T9MmJJYtcubuPt02iG6wRe BzDlN5HLem F8GrrdM0RDAldMBaESxlDT V8D98mj3B5KFLqWJCwJLB3 wZI4iN9yoKblxcxydAJptF sgdmVydGlj XAirOXjsZ906SUXjyOawEk NvZGluZyBEYXRlOiAgMDYv MjAvMjAyNDwvdGQ+PHRkIH R6qOinGMMi qNPoROjhOw7ykEspiGkfRU 2oXHKopnmpHPWelX7yHNXc tSLmcOjoJS8jCCEwysgfw6 88ZdXyIXL4 WWWlsGZvX8IkjX9tJuDwVD XnYOHuS4AgxHMnJZsbE350 IMknChR4VVVzxrBcR2YgGG FsaWduOiB0 b4S2Rv4Rn8IrxvsgE4ZifQ QoHfPeGdquWJu6L5ShJxvl dHI+EK16RXRsJU44EVz1AC I2aByyWGyv WCPzJ3DshF2kDnLgLSRzPI RkOyc+PHRhYmxlIHdpZHRo UUmkNBNbOfSepIliFF3iAu 9yZGVyLWNv jZzwqKAxIdAah5kvFEYvKL wzHL8vnTktZ7KpnPO1FISs b9n4Xw36Q22mF6TpzSR+PG MduGA8hYU8 kD9jYhTlLlX0GSjhI498Vl PmcNMiHwabi5rkl4emaZy5 JvG3BDNzyoKaqQnpGXV0x8 XeSh22C96c IHdpZHRoPSIxNSUiIHZhbG xjdz7hcR9iUq8+PGNvbCB3 zKM6bR6aJzYrIuZ4BVijL6 49InRvcCIv Vfmox4ppk7iptLc5OjXbDE UoshOeyJxxRVY5c2IxPa34 C8WlnDucg1AdVll4yn76bL Tdq2B1uXD2 F4AxTCOajljzcBBwzHazCN 9jZFLtjfnvFNCtfD7nQLVz Q1y0OuXhDdW1FFhtI9Ptmc C5UDBafFUy GLSpxSKXtC3enasaj4rjxm dzMtGrHVEvRJn8NZa3DIDd wZsyBeKtHKR6PwZ6PPG7wY LbeB1suQhw nvjbgW3qQfw+LKL7dMZsuG XLOI0sAxkjhIW+PHRkIHN0 qCbxZNclLRAezP7wPNLeD1 a1SeMdZpB5 GPcfL2DhnuK7DLZeaSMqDY RuhRXLkB8xyrroq8ukniju RyBuBYRhLMw1VWp7VLAdcT duOiBsZWZ0 PmE9NXJ0fCMoxA0fgRubzo movV6bFdb+QmlydGggRGF0 RWc7K7RuXow2LFHloRneBP 0ncGFkZGlu Qq2rtKkslJxhUH2xDXJkrl ywe831WeDvn9ktGHYdcZEc QGlyMGA6R19zl3P6QGRbDY WzMQF3cOS9 bL1ebYocvxrdqCSohJpgso GwaQwvBXstNQnuK189GYWh mFqiVgLmYXb4T2WnDdg8IC ShsTkuQV2c lXNxTMszOq2fmDozgGxlNJ 1mMWSxapeal196PaOdf0yc GXPpkJKuPLatPAT2T24mu7 N3DGMdDHIa YFM1mNK4vO7kaRiarxbliD VmdDsgdmVydGljYWwtYWxp Q279NIPqhBnmXaPbwNw0Z5 JzSdn3WEKs iNltIB3xnUCrRTxqBu6xlY lazVcmFC9gZAVfmkjwk541 PyKrq5qlPBKlpLGbTRsxJY D6D50ix9R4 ANCvGGZxEJP1oSC7vR0zbS lnbjogbGVmdDsgdmVydGlj BXfuPHdcW752LOMgdIcwUg BhdGllbnQg DGbkOYd3O0KfJlarwNI+PC 97TIAbID76zNBveUAvz6ts cCg8GaCpPUBuEQZ6fXgiMP npy0AfMTYm K09vsEWio3S0FDOlcGdvjS EdCgBtwVQ2eW0aELtjhmlw e7fhkyizHbfdi6nsrh77fX 33N88wEBds ZHRoPSIzMCUiIHZhbGlnbj 0qxC4bFt2+SWZbqQQ5yGQ3 wY0yYUZaSqQ4YErfL402Zt RvcCIvPjxj q3fqg7yjnYg5OpQ8PBQmpb IupPhvELL5i6PcKj43R69t IHdpZHRoPSIyMCUiIHZhbG alfd0uiC4t Ii8+NHLqhFT9kAH7nI6wZl CyIoX6HEilN741GsFasDFw YbbfP74vY5IrsPJ+PHRyPj d0HKWhpHwi KX9tlSNmOSofWw2tAQR9Ok EyElHyUUrtK1GoYEDvhlra dlxmxTS6IVJjJKEygR34Bi 9udDogMTBw zICSzL4dfycxn2fbwroxCx YpCYThXEp4JJj3ECIftLde YuRqDFI1AoQ2JLK3xHIsqI 1hbGlnbjog zZ2yZ0NnHGVarbopKu21oS 3dGsTkOwC2QPdoDco+Q09S QklOLCBDSEVOTkkgSzwvdG Q+PHRkIHN0 gSdvHYzaWWZbxF1cCRWsY5 h9TgNtZxN7HSvmN7HqESMy fhxlYo36vY2mKbEcCzW0VL bvI7AdcyE2 GFJmeJHhUGgeVHH0Q54pv7 W2XVFoRTCmMNE0fRW8iQ2k bGlnbjogbGVmdDsgdmVydG ljYWwtYWxp W500FOFneCjfJkXsOzEaRh Z8BpC9B3RkEct6ULJkhKfm BP1vwSWmDLlxAy3eiSuhrR niDY9iDZPh sgncSZCynP7gPLCtfLGsiV kmKW4dOLSrkhwon379FuUe TSA0HOFhtQBzS4ZsyA0gJp AjMDAwMDAw M1PahUCqKMguS479GJlhIa T7HCPezeKpW5WnNKXktZhg GjF9i6P2Ek59UqCNODPggv wvdGQ+PHRk TXM5kFufCYsaOIHdhT3dXM YdF9x1RyDxJwX8MFzeF9Yk WUJegvojJq50aK9lMpFsLx Q8NMnuK8Od dtI4MZFxbKFuPCnpTRI2E4 8bi6B6GDIqZWUcSBO0oEF4 hH0paChlsmijpNTxgRddmk VydGljYWwt WGprT809TKSlgDhiEvNhsP FsZTwvdGQ+CCXmZWB1pDlw HHgiTYHioI4eQKPsE1a0We PaTyP7ZWos K1OdKURbusanLg21nR4uXi LbZeB4OHxdR1OdbsA4IVWq sGExHQytAQH8T16qd6D4KU MwMDAwMDA7 hLM4eM2pyJeokkyhnXYtmH jclwIlbOjrNUarZQcmQ335 FNWbbTvfDg69lBGtdAnfio B6G2HfCgtf dHI+WI13IYEaNG76xMJslX Mvl0axpZn9VpJbFLGjYFD5 dHymBVhjt0JgCVTkX52alJ Jgb9N3XKHu kLilyMTsRcNbxHN8xC0hJV nrvuijr6uqvtrnAxsab5md ni17dK88A47zMBplGXYfJD IzMCUiIHZh oWsnrz2xkM0mSu8+PGNvbC S2sRD2dX7dSuDcBeA2TLal X037YfFqpTXnFrmqr6qbm7 npyMb8UsDv OBCeeeXheVxuWPV7q3SqJl 47H13wILlhEHEpQZYoBGVa ILQyxXbyyz9hpP6jIb5+PC 8hu0iehm11 xE77iDK+DFEyNQX6jCccCD ajKFFtmR9oAKdwPtE4MDAi QnVpnH87bFLrCTqiUw6diU nxuNxaUB9r EMNcfober532VnZtk0qcCC XioDQnZLbpKVM0V00ae2H9 RVGoCFDyNNN3yHC5dJ8ynC lnbjogbGVm dDsgdmVydGljYWwtYWxpZ2 46TIPicIihFvIlbWTkD1wq qgAVXP4oDvjtfWI+PHRkIH A8pNxwUNse AOEvaD0cKUFtT9n4CnBaAh O7YMstR6MjcaF9FLHusXCz DNFelRWGaK0esgbdn6vfkz ogIzAwMDAw UPd5JAq8WNPrqJllDnHvDE E9ZcA4TIS9lMGiuB0oaFhe nljmuO0fUrk+RklOOjwvdG Q+PHRkIHN0 yDxoYVnnIQLbyB9iBYSaL2 z7GtGeHwJ3HVobH5WkpgC2 OCQemXKtYUCouAGYsE6rwt bjn1gxqebr LrMcFUSlZSo7BWc7SJMryO voKtZjRPD7QjA4VOV0tDPy sA2lfUcbdrdvsE2yDiw+TV JOOjwvdGQ+ NCTrXDF5aVueFGfpLJUwsC 6hGIWeQ4f7VzAlZyS0RQim W7QankI2VTItbFBiYYThlP NNaL0rmbje j7ykfotdWtMxFUWhENj1VR z5BUIzfOiiMlVeYTW2FrH4 RKK6bEDiyU8glTbpuimrfW 9wOyc+UGF5 KUS4UC38ID83Q9FuEekotL FibGU+PHRhYmxlIHdpZHRo IPcgNRKxXzFqiZhsGS8iOs 9yZGVyLWNv bGxhcHNlOiBjb (more content not included)... Normal [facility] CBC AND AUTO DIFFon 09-18-19 24 ABSOLUTE BASOPHIL 0.0 X10E9/L Normal 0.0-0.[address] [facility] Comment on above: Performed By: #### C KAYA CMP, 3040-3 #### [facility] ([id number]) [address] [place] [address] ABSOLUTE NEUTROPHIL 3.2 X10E9/L Normal 1.5-6.6 [facility] Comment on above: Performed By: #### C KAYA CMP, 3040-3 #### [facility] ([id number]) [address] [place] [address] Basophils/100 WBC (Bld) 0.7 % Normal [facility] Comment on above: Performed By: #### C BCA CMP, 3040-3 #### [facility] ([id number]) [address] [place] [address] Eosinophils (Bld) [#/Vol] 0.1 10*3/uL Normal 0.0-0.4 [facility] Comment on above: Performed By: #### Terrie KIRKPATRICK CMP, 3039-3 #### [facility] ([id number]) [address] [place] [address]75 Eosinophils/100 WBC (Bld) 2.4 % Normal [facility] Comment on above: Performed By: #### Terrie KIRKPATRICK [facility], 3 #### [facility] ([id number]) [address] [place] [address] Erythrocyte distribution width (RBC) [Ratio] 13.6 % Normal 11.5-15.0 [facility] Comment on above: Performed By: #### Terrie KIRKPATRICK [facility], 3 #### [facility] ([id number]) [address] [place] [address] Hematocrit (Bld) [Volume fraction] 34.5 % Low 35-47 [facility] Comment on above: Performed By: #### Terrie KIRKPATRICK [facility], 3 #### [facility] ([id number]) [address] [place] [address] Hemoglobin (Bld) [Mass/Vol] 11.6 g/dL Low 11.7-15.5 [facility] Comment on above: Performed By: #### Terrie KIRKPATRICK CMP, 3 #### [facility] ([id number]) [address] [place] [address] Lymphocytes (Bld) [#/Vol] 1.9 10*3/uL Normal 1.0-3.5 [facility] Comment on above: Performed By: #### Terrie KIRKPATRICK CMP, 3039-3 #### [facility] ([id number]) [address] [place] [address]349 Lymphocytes/100 WBC (Bld) 30.9 % Normal [facility] Comment on above: Performed By: #### Terrie KIRKPATRICK CMP, 3 #### [facility] ([id number]) [address] [place] [address]7769 MCH (RBC) [Entitic mass] 33.1 pg Normal 27-34 [facility] Comment on above: Performed By: #### Terrie KIRKPATRICK CMP, 3039-06 #### [facility] ([id number]) [address] [place] [address] MCHC (RBC) [Mass/Vol] 33.6 g/dL Normal 32-36 [facility] Comment on above: Performed By: #### Terrie KIRKPATRICK CMP, 3039-06 #### [facility] ([id number]) [address] [place] [address]953 MCV (RBC) [Entitic vol] 99 fL Normal 80-100 [facility] Comment on above: Performed By: #### Terrie KIRKPATRICK CMP, 3039-06 #### [facility] ([id number]) [address] [place] [address] 56342 Monocytes (Bld) [#/Vol] 0.9 10*3/uL Normal 0-0.9 [facility] Comment on above: Performed By: #### Terrie KIRKPATRICK CMP, 3039-06 #### [facility] ([id number]) [address] [place] [address] 75368 Monocytes/100 WBC (Bld) 13.8 % Normal [facility] Comment on above: Performed By: #### Terrie KIRKPATRICK CMP, 3039-06 #### [facility] ([id number]) [address] [place] [address] 01821 Neutrophils/100 WBC (Bld) 52.2 % Normal [facility] Comment on above: Performed By: #### C BCA, CMP, 3 #### [facility] ([id number]) [address] [place] [address] 24877 Platelet mean volume (Bld) [Entitic vol] 9.1 fL Normal 7-12 [facility] Comment on above: Performed By: #### Terrie KIRKPATRICK, CMP, 3 #### [facility] ([id number]) [address] [place] [address] 81137 Platelets (Bld) [#/Vol] 291 10*3/uL Normal 150-450 [facility] Comment on above: Performed By: #### Terrie KIRKPATRICK CMP, 3 #### [facility] ([id number]) [address] [place] [address] 96152 RBC COUNT 3.50 X10E12/L Low 3.80-5.20 [facility] Comment on above: Performed By: #### Terrie KIRKPATRICK, CMP, 3 #### [facility] ([id number]) [address] [place] [address] 17454 WBC (Bld) [#/Vol] 6.2 10*3/uL Normal 4.0-11.[address] [facility] Comment on above: Performed By: #### Terrie KIRKPATRICK, CMP, 3 #### [facility] ([id number]) [address] [place] [address]3815 COMPREHENSIVE METABOLIC PANE [facility] 09-18-2023 Albumin [Mass/Vol] 3.8 g/dL Normal 3.2-5.[address] [facility] Comment on above: Performed By: #### Terrie BCA, CMP, 3 #### [facility] ([id number]) [address] [place] [address] 38656 ALP [Catalytic activity/Vol] 64 U/L Normal 39-130 [facility] Comment on above: Performed By: #### Terrie BCA, CMP, 3039-3 #### [facility] ([id number]) [address] [place] [address] 20204 ALT [Catalytic activity/Vol] 18 U/L Normal 0-31 [facility] Comment on above: Performed By: #### C BCA, CMP, 3039-3 #### [facility] ([id number]) [address] [place] [address] [place] [address] Anion gap [Moles/Vol] 7 mmol/L Normal 5-15 [facility] Comment on above: Performed By: #### C BCA, [facility], 3039-3 #### [facility] ([id number]) [address] [place] [address] 21461 AST [Catalytic activity/Vol] 19 U/L Normal 0-41 [facility] Comment on above: Performed By: #### Terrie KIRKPATRICK, [facility], 3 #### [facility] ([id number]) [address] [place] [address] 10059 Bilirubin [Mass/Vol] 0.6 mg/dL Normal 0.3-1.2 [facility] Comment on above: Performed By: #### Terrie BCA, [facility], 3 #### [facility] ([id number]) [address] [place] [address] 51314 Calcium [Mass/Vol] 8.4 mg/dL Low 8.5-10.[address] [facility] Comment on above: Performed By: #### C BCA, CMP, 3039-3 #### [facility] ([id number]) [address] [place] [address] 64515 Chloride [Moles/Vol] 105 mmol/L Normal 98-109 [facility] Comment on above: Performed By: #### Terrie BCA, CMP, 3039-3 #### [facility] ([id number]) [address] [place] [address] 87035 CO2 [Moles/Vol] 26 mmol/L Normal 22-32 [facility] Comment on above: Performed By: #### C KEYSHAWN KIRKPATRICK, 3040-3 #### [facility] ([id number]) [address] [place] [address] 00319 Creatinine [Mass/Vol] 1.03 mg/dL High 0.40-1.00 [facility] Comment on above: Result Comment: METH OD TRACEABLE TO IDMS STANDARD Performed By: #### C KEYSHAWN KIRKPATRICK, 3 #### [facility] ([id number]) [address] [place] [address] 03685 GFR/1.73 sq M.predicted among non-blacks MDRD (S/P/Bld) [Vol rate/Area] 65 mL/min/{1.73_m2} Normal >59 [facility] Comment on above: Result Comment: Reported eGFR is based on the CKD-EPI 2020 equation that does not use a race coefficient. Performed By: #### C KEYSHAWN KIRKPATRICK, 3 #### [facility] ([id number]) [address] [place] [address] 27244 Glucose [Mass/Vol] 99 mg/dL Normal 65-[address] [facility] Comment on above: Performed By: #### C KEYSHAWN KIRKPATRICK, 3039-3 #### [facility] ([id number]) [address] [place] [address] 03191 Potassium [Moles/Vol] 3.4 mmol/L Low 3.5-5.0 [facility] Comment on above: Performed By: #### C KEYSHAWN KIRKPATRICK, 0-3 #### [facility] ([id number]) [address] [place] [address] 88479 Protein [Mass/Vol] 6.9 g/dL Normal 6.0-8.[address] [facility] Comment on above: Performed By: #### C KEYSHAWN KIRKPATRICK, 3039-3 #### [facility] ([id number]) [address] [place] [address] Sodium [Moles/Vol] 138 mmol/L Normal 134-[address] [facility] Comment on above: Performed By: #### C KEYSHAWN KIRKPATRICK, 3040-3 #### [facility] ([id number]) [address] [place] [address] Urea nitrogen [Mass/Vol] 10 mg/dL Normal 5-23 [facility] Comment on above: Performed By: #### C KEYSHAWN KIRKPATRICK, 3040-3 #### [facility] ([id number]) [address] [place] [address] BRAIN WO CONTon 4 CT BRAIN [...] Johny Frances on 09/18/2023 9:21 PM Normal [facility] LIPASEon 09-18-2023 Lipase [Catalytic activity/Vol] 36 U/L Normal 17-40 [facility] Comment on above: Performed By: #### C KEYSHAWN KIRKPATRICK, 3040-3 #### [facility] ([id number]) [address] [place] [address] URN MACROSCOPIC NURon 2023 BILIRUBIN SHADY Negative Normal NEG [facility] Comment on above: Performed By: #### N UM #### [facility] ([id number]) [address] [place] [address] [place] [address] BLOOD/HGB SHADY Trace Abnormal NEG [facility] Comment on above: Performed By: #### N UM #### [facility] ([id number]) [address] [place] [address], [place] [address] GLUCOSE SHADY Negative Normal NEG [facility] Comment on above: Performed By: #### N UM #### [facility] ([id number]) [address] [place] [address] [place] [address] KETONES SHADY Negative Normal NEG [facility] Comment on above: Performed By: #### N UM #### [facility] ([id number]) [address] [place] [address] [place] [address] LEUKOCYTE ESTERASE SHADY Negative Normal NEG [facility] Comment on above: Performed By: #### N UM #### [facility] ([id number]) [address] [place] [address] [place] [address] NITRITE SHADY Negative Normal NEG [facility] Comment on above: Performed By: #### N UM #### [facility] ([id number]) [address] [place] [address] [place] [address] PH SHADY 6.0 Normal 5.0-8.5 [facility] Comment on above: Performed By: #### N UM #### [facility] ([id number]) [address] [place] [address] [place] [address] PROTEIN SHADY Negative Normal NEG [facility] Comment on above: Performed By: #### N UM #### [facility] ([id number]) [address] [place] [address], [place] [address] SPECIFIC GRAVITY SHADY 1.010 Normal 1.003-1.035 [facility] Comment on above: Performed By: #### N UM #### [facility] ([id number]) [address] [facility] [place] [address] UROBILINOGEN SHADY 0.2 eu/dL Normal <1.1 [facility] Comment on above: Performed By: #### N #### [facility] ([id number]) [address] [facility], [place] [address] Consent for Treatmenton 09-03 Consent for Treatment [id number]#1.[address] [facility] Heart and Vascular Office/Cl inic Noteon 09-13-2023 [...] with voice recognition artificial intelligence software, specifically [employer], [employer] and or Enge[employer]. Substitutions may have occurred due to the [...] History Ca (more content not included)... Normal [facility] Comment on above: Result Comment: Elec tronically Signed By: Deepak MOSES, Roosevelt Remy\.br\Date and Time Signed: 09/13/23 13:41 EDT Insurance Correspondenceon 0 09-13-2023 Insurance Correspondence [id number]#1.0 0TIFF [facility] Outside Labson 09-13-2023 Outside Labs [id number] 01 [id number]#1. 00TIFF [facility] Outside Recordson 09-13-2023 Outside Records [id number] 01 [id number]#1. 00TIFF [facility] Outside Records [id number] 01 [id number]#1. 00TIFF [facility] Physician Orderon 09-13-2023 Physician Order [id number] 01 [id number]#1. 00TIFF [facility] RAD - CT Reporton 08-31-2023 RAD - CT Report [id number] 03 [id number]#1.00 TIFF [facility] Lab Reportson 08-17-2023 Lab Reports [id number] 03 [id number]#1.[address] [facility] Urine Cytology ([facility])on 08-17-2023 Microscopic exam Cytology (U) [Interp] Diagnosis Info Invalid Interpretation Code [facility] Comment on above: Result Comment: A:Ur ine,Urine:Voided Interpretation - MicroScopic Description - Adequacy - Gross Description Site ID:A color Light Yellow fixative Alcohol Specimen designated Urine received in alcohol preservative and labeled with the patient?s name, consists of 60ml clear light yellow fluid. Electronically signed by : on: 08/17/2023 14:12:20 Performed By: #### 1 [id number] ####[facility] [address] [place] [address] Lab Reportson 08-11-2023 Lab Reports [id number] 03 [id number]#1.[address] [facility] Physician Referralon 024 Physician Referral [id number] 03 [id number]#1.[address] [facility] RAD - MISCon 08-11-2023 RAD - MISC [id number] 03 [id number]#1.[address] [facility] RAD - MISC [id number] 50 [id number]#1.[address] [facility] RAD - Ultrasound Reporton RAD - Ultrasound Report [id number]#1.[address] [facility] RAD - Ultrasound Report [id number]#1.[address] [facility] Screenson 08-11-2023 Screens [id number] 03 [id number]#1.[address] [facility] Ambulatory Visit Summaryon 08-10-2023 Ambulatory Visit Summary ISELA CRAIG :1970 [...] Appointments Follow Up with JES ROLLE PA-C, [place] When: Where: [address] [facility] [place] [address] [phone] Medications What How Much When Instructions Unchanged [...] make many (more content not included)... Normal [facility] Patient Educationon 08-10-19 Patient Education Pulmonary Medicine [...] require a prescription. You can also purchase giho-sjl-cgowihr medicines. Medicines may have nicotine in them [...] and encouragement. Call telephone quitlines, such as 5-915-QBZM-NOW, reach out to support groups, or work [...] quit smoki (more content not included)... Normal [facility] Urine Cytology ([facility])on 08-10-2023 Method of Extraction Voided Normal [facility] Comment on above: Performed By: #### 1 [id number] ####[facility] [address] [place] [address] Number of Jars [address] [facility] Comment on above: Performed By: #### 1 [id number] ####[facility] [address] [facility] [place] [address] [facility] Comment on above: Performed By: #### 1 [id number] ####[facility] [address] [facility] [place] [address] Type of Service Technical Only Normal [facility] Comment on above: Performed By: #### 1 [id number] ####[facility] [address] [facility] [place] [address] Complete Blood Count Auto Di ffon 06-09-2023 Basophils (Bld) [#/Vol] 0.0 10*3/uL Normal 0.0-0.2 [facility] Comment on above: Order Comment: Reaso n for Exam Urinary frequency;Medication management;Anxiety;Microscopic Result Comment: PERF ORMED BY: [facility] [address] [place] [id number] PATHOLOGIST RAIL ASSEMBLER PALOMO WESLEY M.D. Performed By: #### C BC, [id number], THYROID SC, URMACRERAT, FE and TIBC, LIPID, SHAMA, LDLD, CMP ####[facility] [id number]#### TOXASSURE, HIV SCREEN ####[facility] , Basophils/100 WBC (Bld) 0.3 % Normal . [facility] Comment on above: Order Comment: Reaso n for Exam Urinary frequency;Medication management;Anxiety;Microscopic Performed By: #### C BC, [id number], THYROID SC, URMACRERAT, FE and TIBC, LIPID, SHAMA, LDLD, CMP ####[address]#### TOXASSURE, HIV SCREEN ####[facility] , Eosinophils (Bld) [#/Vol] 0.1 10*3/uL Normal 0.0-0.45 [facility] Comment on above: Order Comment: Reaso n for Exam Urinary frequency;Medication management;Anxiety;Microscopic Performed By: #### C BC, [id number], THYROID SC, URMACRERAT, FE and TIBC, LIPID, SHAMA, LDLD, CMP ####[address]#### TOXASSURE, HIV SCREEN ####[facility] , Eosinophils/100 WBC (Bld) 1.7 % Normal . [facility] Comment on above: Order Comment: Reaso n for Exam Urinary frequency;Medication management;Anxiety;Microscopic Performed By: #### C BC, [id number], THYROID SC, URMACRERAT, FE and TIBC, LIPID, SHAMA, LDLD, CMP ####[address]#### TOXASSURE, HIV SCREEN ####[facility] , Erythrocyte distribution width (RBC) [Ratio] 13.2 % Normal 11.9-15.3 [facility] Comment on above: Order Comment: Reaso n for Exam Urinary frequency;Medication management;Anxiety;Microscopic Performed By: #### C BC, [id number], THYROID SC, URMACRERAT, FE and TIBC, LIPID, SHAMA, LDLD, CMP ####[address]#### TOXASSURE, HIV SCREEN ####[facility] , Hematocrit (Bld) [Volume fraction] 41.9 % Normal 34.0-46.4 [facility] Comment on above: Order Comment: Reaso n for Exam Urinary frequency;Medication management;Anxiety;Microscopic Performed By: #### C BC, [id number], THYROID SC, URMACRERAT, FE and TIBC, LIPID, SHAMA, LDLD, CMP ####[address]#### TOXASSURE, HIV SCREEN ####[facility] , Hemoglobin (Bld) [Mass/Vol] 14.0 g/dL Normal 11.8-15.4 [facility] Comment on above: Order Comment: Reaso n for Exam Urinary frequency;Medication management;Anxiety;Microscopic Performed By: #### C BC, [id number], THYROID SC, URMACRERAT, FE and TIBC, LIPID, SHAMA, LDLD, CMP ####[address]#### TOXASSURE, HIV SCREEN ####[facility] , Lymphocytes (Bld) [#/Vol] 2.2 10*3/uL Normal 1.00-4.8 [facility] Comment on above: Order Comment: Reaso n for Exam Urinary frequency;Medication management;Anxiety;Microscopic Performed By: #### C BC, [id number], THYROID SC, URMACRERAT, FE and TIBC, LIPID, SHAMA, LDLD, CMP ####[address]#### TOXASSURE, HIV SCREEN ####[facility] , Lymphocytes/100 WBC (Bld) 30.2 % Normal . [facility] Comment on above: Order Comment: Reaso n for Exam Urinary frequency;Medication management;Anxiety;Microscopic Performed By: #### C BC, [id number], THYROID SC, URMACRERAT, FE and TIBC, LIPID, SHAMA, LDLD, CMP ####[address]#### TOXASSURE, HIV SCREEN ####[facility] , MCH (RBC) [Entitic mass] 32.8 pg Normal 24.7-34.3 [facility] Comment on above: Order Comment: Reaso n for Exam Urinary frequency;Medication management;Anxiety;Microscopic Performed By: #### C BC, [id number], THYROID SC, URMACRERAT, FE and TIBC, LIPID, SHAMA, LDLD, CMP ####[address]#### TOXASSURE, HIV SCREEN ####[facility] , MCV (RBC) [Entitic vol] 98.5 fL Normal 80-100 [facility] Comment on above: Order Comment: Reaso n for Exam Urinary frequency;Medication management;Anxiety;Microscopic Performed By: #### C BC, [id number], THYROID SC, URMACRERAT, FE and TIBC, LIPID, SHAMA, LDLD, CMP ####[address]#### TOXASSURE, HIV SCREEN ####[facility] , Mean Corpuscular HGB Conc 33.3 g/dL Normal 32.0-35.0 [facility] Comment on above: Order Comment: Reaso n for Exam Urinary frequency;Medication management;Anxiety;Microscopic Performed By: #### C BC, [id number], THYROID SC, URMACRERAT, FE and TIBC, LIPID, SHAMA, LDLD, CMP ####[address]#### TOXASSURE, HIV SCREEN ####[facility] , Monocytes (Bld) [#/Vol] 0.8 10*3/uL Normal 0.0-0.8 [facility] Comment on above: Order Comment: Reaso n for Exam Urinary frequency;Medication management;Anxiety;Microscopic Performed By: #### C BC, [id number], THYROID SC, URMACRERAT, FE and TIBC, LIPID, SHAMA, LDLD, CMP ####[address]#### TOXASSURE, HIV SCREEN ####[facility] , Monocytes/100 WBC (Bld) 10.9 % Normal . [facility] Comment on above: Order Comment: Reaso n for Exam Urinary frequency;Medication management;Anxiety;Microscopic Performed By: #### C BC, [id number], THYROID SC, URMACRERAT, FE and TIBC, LIPID, SHAMA, LDLD, CMP ####[address]#### TOXASSURE, HIV SCREEN ####[facility] , Neutrophils (Bld) [#/Vol] 4.1 10*3/uL Normal 1.8-7.7 [facility] Comment on above: Order Comment: Reaso n for Exam Urinary frequency;Medication management;Anxiety;Microscopic Performed By: #### C BC, [id number], THYROID SC, URMACRERAT, FE and TIBC, LIPID, SHAMA, LDLD, CMP ####[address]#### TOXASSURE, HIV SCREEN ####[facility] , Neutrophils/100 WBC (Bld) 56.9 % Normal . [facility] Comment on above: Order Comment: Reaso n for Exam Urinary frequency;Medication management;Anxiety;Microscopic Performed By: #### C BC, [id number], THYROID SC, URMACRERAT, FE and TIBC, LIPID, SHAMA, LDLD, CMP ####[address]#### TOXASSURE, HIV SCREEN ####[facility] , NRBC% 0.1 /100{WBC} Normal 0-0.5 [facility] Comment on above: Order Comment: Reaso n for Exam Urinary frequency;Medication management;Anxiety;Microscopic Performed By: #### C BC, [id number], THYROID SC, URMACRERAT, FE and TIBC, LIPID, SHAMA, LDLD, CMP ####[address]#### TOXASSURE, HIV SCREEN ####[facility] , Platelet mean volume (Bld) [Entitic vol] 9.0 fL Normal 6.3-10.[address] [facility] Comment on above: Order Comment: Reaso n for Exam Urinary frequency;Medication management;Anxiety;Microscopic Performed By: #### C BC, [id number], THYROID SC, URMACRERAT, FE and TIBC, LIPID, SHAMA, LDLD, CMP ####[address]#### TOXASSURE, HIV SCREEN ####[facility] , Platelets (Bld) [#/Vol] 314 10*3/uL Normal 150-450 [facility] Comment on above: Order Comment: Reaso n for Exam Urinary frequency;Medication management;Anxiety;Microscopic Performed By: #### C BC, [id number], THYROID SC, URMACRERAT, FE and TIBC, LIPID, SHAMA, LDLD, CMP ####[address]#### TOXASSURE, HIV SCREEN ####[facility] , RBC (Bld) [#/Vol] 4.26 10*6/uL Normal 3.60-5.00 [facility] Comment on above: Order Comment: Reaso n for Exam Urinary frequency;Medication management;Anxiety;Microscopic Performed By: #### C BC, [id number], THYROID SC, URMACRERAT, FE and TIBC, LIPID, SHAMA, LDLD, CMP ####[address]#### TOXASSURE, HIV SCREEN ####[facility] , WBC (Bld) [#/Vol] 7.2 10*3/uL Normal 3.8-11.6 [facility] Comment on above: Order Comment: Reaso n for Exam Urinary frequency;Medication management;Anxiety;Microscopic Performed By: #### C BC, [id number], THYROID SC, URMACRERAT, FE and TIBC, LIPID, SHAMA, LDLD, CMP ####[place] [id number] [address]#### TOXASSURE, HIV SCREEN ####[facility] , Comprehensive Metabolic Pane bryon 06-09-2023 Albumin [Mass/Vol] 4.2 g/dL Normal 3.5-5.7 [facility] Comment on above: Order Comment: Reaso n for Exam Urinary frequency;Medication management;Anxiety;Microscopic Reason for Exam Microscopic hematuria;Low iron Reason for Exam Bipolar affective disorder, currently depressed, moderate Reason for Exam Vitamin D deficiency Performed By: #### C BC, [id number], THYROID SC, URMACRERAT, FE and TIBC, LIPID, SHAMA, LDLD, CMP ####[address]#### TOXASSURE, HIV SCREEN ####[facility] , Albumin/Globulin [Mass ratio] 1.4 {ratio} Normal [facility] Comment on above: Order Comment: Reaso n for Exam Urinary frequency;Medication management;Anxiety;Microscopic Reason for Exam Microscopic hematuria;Low iron Reason for Exam Bipolar affective disorder, currently depressed, moderate Reason for Exam Vitamin D deficiency Performed By: #### C BC, [id number], THYROID SC, URMACRERAT, FE and TIBC, LIPID, SHAMA, LDLD, CMP ####[address]#### TOXASSURE, HIV SCREEN ####[facility] , ALP [Catalytic activity/Vol] 87 U/L Normal 34-104 [facility] Comment on above: Order Comment: Reaso n for Exam Urinary frequency;Medication management;Anxiety;Microscopic Reason for Exam Microscopic hematuria;Low iron Reason for Exam Bipolar affective disorder, currently depressed, moderate Reason for Exam Vitamin D deficiency Performed By: #### C BC, [id number], THYROID SC, URMACRERAT, FE and TIBC, LIPID, SHAMA, LDLD, CMP ####[address]#### TOXASSURE, HIV SCREEN ####[facility] , ALT [Catalytic activity/Vol] 10 U/L Normal 7-52 [facility] Comment on above: Order Comment: Reaso n for Exam Urinary frequency;Medication management;Anxiety;Microscopic Reason for Exam Microscopic hematuria;Low iron Reason for Exam Bipolar affective disorder, currently depressed, moderate Reason for Exam Vitamin D deficiency Performed By: #### C BC, [id number], THYROID SC, URMACRERAT, FE and TIBC, LIPID, SHAMA, LDLD, CMP ####[address]#### TOXASSURE, HIV SCREEN ####[facility] , Anion gap [Moles/Vol] 12.9 mmol/L Normal 6.0-15.0 [facility] Comment on above: Order Comment: Reaso n for Exam Urinary frequency;Medication management;Anxiety;Microscopic Reason for Exam Microscopic hematuria;Low iron Reason for Exam Bipolar affective disorder, currently depressed, moderate Reason for Exam Vitamin D deficiency Performed By: #### C BC, [id number], THYROID SC, URMACRERAT, FE and TIBC, LIPID, SHAMA, LDLD, CMP ####[address]#### TOXASSURE, HIV SCREEN ####[facility] , AST [Catalytic activity/Vol] 12 U/L Low 13-39 [facility] Comment on above: Order Comment: Reaso n for Exam Urinary frequency;Medication management;Anxiety;Microscopic Reason for Exam Microscopic hematuria;Low iron Reason for Exam Bipolar affective disorder, currently depressed, moderate Reason for Exam Vitamin D deficiency Performed By: #### C BC, [id number], THYROID SC, URMACRERAT, FE and TIBC, LIPID, SHAMA, LDLD, CMP ####[address]#### TOXASSURE, HIV SCREEN ####[facility] , Bilirubin [Mass/Vol] 0.2 mg/dL Low 0.3-1.0 [facility] Comment on above: Order Comment: Reaso n for Exam Urinary frequency;Medication management;Anxiety;Microscopic Reason for Exam Microscopic hematuria;Low iron Reason for Exam Bipolar affective disorder, currently depressed, moderate Reason for Exam Vitamin D deficiency Performed By: #### C BC, [id number], THYROID SC, URMACRERAT, FE and TIBC, LIPID, SHAMA, LDLD, CMP ####[address]#### TOXASSURE, HIV SCREEN ####[facility] , Calcium [Mass/Vol] 9.5 mg/dL Normal 8.6-10.3 [facility] Comment on above: Order Comment: Reaso n for Exam Urinary frequency;Medication management;Anxiety;Microscopic Reason for Exam Microscopic hematuria;Low iron Reason for Exam Bipolar affective disorder, currently depressed, moderate Reason for Exam Vitamin D deficiency Performed By: #### C BC, [id number], THYROID SC, URMACRERAT, FE and TIBC, LIPID, SHAMA, LDLD, CMP ####[address]#### TOXASSURE, HIV SCREEN ####[facility] , Chloride [Moles/Vol] 105 mmol/L Normal 98-107 [facility] Comment on above: Order Comment: Reaso n for Exam Urinary frequency;Medication management;Anxiety;Microscopic Reason for Exam Microscopic hematuria;Low iron Reason for Exam Bipolar affective disorder, currently depressed, moderate Reason for Exam Vitamin D deficiency Performed By: #### C BC, [id number], THYROID SC, URMACRERAT, FE and TIBC, LIPID, SHAMA, LDLD, CMP ####[address]#### TOXASSURE, HIV SCREEN ####[facility] , CO2 [Moles/Vol] 25.0 mmol/L Normal 21.0-31.0 [facility] Comment on above: Order Comment: Reaso n for Exam Urinary frequency;Medication management;Anxiety;Microscopic Reason for Exam Microscopic hematuria;Low iron Reason for Exam Bipolar affective disorder, currently depressed, moderate Reason for Exam Vitamin D deficiency Performed By: #### C BC, [id number], THYROID SC, URMACRERAT, FE and TIBC, LIPID, SHAMA, LDLD, CMP ####[address]#### TOXASSURE, HIV SCREEN ####[facility] , Creatinine [Mass/Vol] 0.63 mg/dL Normal 0.60-1.20 [facility] Comment on above: Order Comment: Reaso n for Exam Urinary frequency;Medication management;Anxiety;Microscopic Reason for Exam Microscopic hematuria;Low iron Reason for Exam Bipolar affective disorder, currently depressed, moderate Reason for Exam Vitamin D deficiency Performed By: #### C BC, [id number], THYROID SC, URMACRERAT, FE and TIBC, LIPID, SHAMA, LDLD, CMP ####[address]#### TOXASSURE, HIV SCREEN ####[facility] , GFR/1.73 sq M.predicted MDRD (S/P/Bld) [Vol rate/Area] mL/min/{1.73_m2} Normal [facility] Comment on above: Order Comment: Reaso n for Exam Urinary frequency;Medication management;Anxiety;Microscopic Reason for Exam Microscopic hematuria;Low iron Reason for Exam Bipolar affective disorder, currently depressed, moderate Reason for Exam Vitamin D deficiency Performed By: #### C BC, [id number], THYROID SC, URMACRERAT, FE and TIBC, LIPID, SHAMA, LDLD, CMP ####[address]#### TOXASSURE, HIV SCREEN ####[facility] , Globulin (S) [Mass/Vol] 2.9 g/dL Normal [facility] Comment on above: Order Comment: Reaso n for Exam Urinary frequency;Medication management;Anxiety;Microscopic Reason for Exam Microscopic hematuria;Low iron Reason for Exam Bipolar affective disorder, currently depressed, moderate Reason for Exam Vitamin D deficiency Performed By: #### C BC, [id number], THYROID SC, URMACRERAT, FE and TIBC, LIPID, SHAMA, LDLD, CMP ####[place] [address] [address]#### TOXASSURE, HIV SCREEN ####[facility] , Glucose [Mass/Vol] 90 mg/dL Normal 70-100 [facility] Comment on above: Order Comment: Reaso n for Exam Urinary frequency;Medication management;Anxiety;Microscopic Reason for Exam Microscopic hematuria;Low iron Reason for Exam Bipolar affective disorder, currently depressed, moderate Reason for Exam Vitamin D deficiency Result Comment: [facility] Glucose Reference Range is dependent on time and content of last meal. Glucose of more than 200 mg/dL in a nonstressed, ambulatory subject supports the diagnosis of Diabetes Mellitus. ADA recommended reference range Performed By: #### C BC, [id number], THYROID SC, URMACRERAT, FE and TIBC, LIPID, SHAMA, LDLD, CMP ####[place] [address] [address]#### TOXASSURE, HIV SCREEN ####[facility] , Potassium [Moles/Vol] 3.9 mmol/L Normal 3.5-5.1 [facility] Comment on above: Order Comment: Reaso n for Exam Urinary frequency;Medication management;Anxiety;Microscopic Reason for Exam Microscopic hematuria;Low iron Reason for Exam Bipolar affective disorder, currently depressed, moderate Reason for Exam Vitamin D deficiency Performed By: #### C BC, [id number], THYROID SC, URMACRERAT, FE and TIBC, LIPID, SHAMA, LDLD, CMP ####[place] [address] [address]#### TOXASSURE, HIV SCREEN ####[facility] , Protein [Mass/Vol] 7.1 g/dL Normal 6.4-8.9 [facility] Comment on above: Order Comment: Reaso n for Exam Urinary frequency;Medication management;Anxiety;Microscopic Reason for Exam Microscopic hematuria;Low iron Reason for Exam Bipolar affective disorder, currently depressed, moderate Reason for Exam Vitamin D deficiency Performed By: #### C BC, [id number], THYROID SC, URMACRERAT, FE and TIBC, LIPID, SHAMA, LDLD, CMP ####[place] [id number] [address]#### TOXASSURE, HIV SCREEN ####[facility] , Sodium [Moles/Vol] 139 mmol/L Normal 136-145 [facility] Comment on above: Order Comment: Reaso n for Exam Urinary frequency;Medication management;Anxiety;Microscopic Reason for Exam Microscopic hematuria;Low iron Reason for Exam Bipolar affective disorder, currently depressed, moderate Reason for Exam Vitamin D deficiency Performed By: #### C BC, [id number], THYROID SC, URMACRERAT, FE and TIBC, LIPID, SHAMA, LDLD, CMP ####[place] [address] [address]#### TOXASSURE, HIV SCREEN ####[facility] , Urea nitrogen [Mass/Vol] 14 mg/dL Normal 7-25 [facility] Comment on above: Order Comment: Reaso n for Exam Urinary frequency;Medication management;Anxiety;Microscopic Reason for Exam Microscopic hematuria;Low iron Reason for Exam Bipolar affective disorder, currently depressed, moderate Reason for Exam Vitamin D deficiency Performed By: #### C BC, [id number], THYROID SC, URMACRERAT, FE and TIBC, LIPID, SHAMA, LDLD, CMP ####[address]#### TOXASSURE, HIV SCREEN ####[facility] , Ferritinon 06-09-2023 Ferritin [Mass/Vol] 78.9 ng/mL Normal 11.0-306.8 [facility] Comment on above: Order Comment: Reaso n for Exam Urinary frequency;Medication management;Anxiety;Microscopic Reason for Exam Microscopic hematuria;Low iron Reason for Exam Bipolar affective disorder, currently depressed, moderate Reason for Exam Vitamin D deficiency Performed By: #### C BC, [id number], THYROID SC, URMACRERAT, FE and TIBC, LIPID, SHAMA, LDLD, CMP ####[place] [address] [place]#### TOXASSURE, HIV SCREEN ####[facility] , HIV 1/O/2 Antigen/Antibodyon 06-09-2023 HIV Screen 4th Generation Non-Reactive Normal Non Reactive [facility] Comment on above: Order Comment: Reaso n for Exam Polysubstance abuse Result Comment: HIV Negative HIV-1/HIV-2 antibodies and HIV-1 p24 antigen were NOT detected. There is no laboratory evidence of HIV infection. Performed at: [facility] [id number] Save All Operator: Kurtis Gallegos PhD, Phone: [phone] PERFORMED BY: [facility] [address] [place] [address] PATHOLOGIST RAIL ASSEMBLER PALOMO WESLEY M.D. Performed By: #### C BC, [id number], THYROID SC, URMACRERAT, FE and TIBC, LIPID, SHAMA, LDLD, CMP ####[address]#### TOXASSURE, HIV SCREEN ####[facility] , Iron and TIBC Profileon % Iron Saturation 22.1 % Normal 20-50 [facility] Comment on above: Order Comment: Reaso n for Exam Urinary frequency;Medication management;Anxiety;Microscopic Reason for Exam Microscopic hematuria;Low iron Reason for Exam Bipolar affective disorder, currently depressed, moderate Reason for Exam Vitamin D deficiency Performed By: #### C BC, [id number], THYROID SC, URMACRERAT, FE and TIBC, LIPID, SHAMA, LDLD, CMP ####[address]#### TOXASSURE, HIV SCREEN ####[facility] , Iron [Mass/Vol] 93 ug/dL Normal 50-212 [facility] Comment on above: Order Comment: Reaso n for Exam Urinary frequency;Medication management;Anxiety;Microscopic Reason for Exam Microscopic hematuria;Low iron Reason for Exam Bipolar affective disorder, currently depressed, moderate Reason for Exam Vitamin D deficiency Performed By: #### C BC, [id number], THYROID SC, URMACRERAT, FE and TIBC, LIPID, SHAMA, LDLD, CMP ####[place] [address] [address]#### TOXASSURE, HIV SCREEN ####[facility] , Total Iron Binding Capacity 420 ug/dL Normal 255-450 [facility] Comment on above: Order Comment: Reaso n for Exam Urinary frequency;Medication management;Anxiety;Microscopic Reason for Exam Microscopic hematuria;Low iron Reason for Exam Bipolar affective disorder, currently depressed, moderate Reason for Exam Vitamin D deficiency Performed By: #### C BC, [id number], THYROID SC, URMACRERAT, FE and TIBC, LIPID, SHAMA, LDLD, CMP ####[place] [address] [address]#### TOXASSURE, HIV SCREEN ####[facility] , Transferrin [Mass/Vol] 300 mg/dL Normal 203-362 [facility] Comment on above: Order Comment: Reaso n for Exam Urinary frequency;Medication management;Anxiety;Microscopic Reason for Exam Microscopic hematuria;Low iron Reason for Exam Bipolar affective disorder, currently depressed, moderate Reason for Exam Vitamin D deficiency Performed By: #### C BC, [id number], THYROID SC, URMACRERAT, FE and TIBC, LIPID, SHAMA, LDLD, CMP ####[address]#### TOXASSURE, HIV SCREEN ####[facility] , LDL Cholesterol Measuredon 0 - LDL Cholesterol Measured 122 mg/dL High 0-100 [facility] Comment on above: Order Comment: [...] Very high Performed By: #### C BC, [id number], THYROID SC, URMACRERAT, FE and TIBC, LIPID, SHAMA, LDLD, CMP ####[place] [address] [address]#### TOXASSURE, HIV SCREEN ####[facility] , Lipid Panelon 06-09-2023 Cholesterol [Mass/Vol] 216 mg/dL High 140-200 Th [facility] Comment on above: Order Comment: Reaso n for Exam Urinary frequency;Medication management;Anxiety;Microscopic Reason for Exam Microscopic hematuria;Low iron Reason for Exam Bipolar affective disorder, currently depressed, moderate Reason for Exam Vitamin D deficiency Result Comment: Chol less than 200 mg/dl low risk Chol 201-239 mg/dl borderline risk Chol 240 mg/dl and greater high risk Performed By: #### C BC, [id number], THYROID SC, URMACRERAT, FE and TIBC, LIPID, SHAMA, LDLD, CMP ####[address]#### TOXASSURE, HIV SCREEN ####[facility] , Cholesterol in HDL [Mass/Vol] 69 mg/dL Normal 23-92 [facility] Comment on above: Order Comment: Reaso n for Exam Urinary frequency;Medication management;Anxiety;Microscopic Reason for Exam Microscopic hematuria;Low iron Reason for Exam Bipolar affective disorder, currently depressed, moderate Reason for Exam Vitamin D deficiency Result Comment: HDL CHOL ATP-III CLASSIFICATION Cardiovascular Risk HDL > or equal to 60 mg/dL LOW HDL < 40 mg/dL HIGH Performed By: #### C BC, [id number], THYROID SC, URMACRERAT, FE and TIBC, LIPID, SHAMA, LDLD, CMP ####[address]#### TOXASSURE, HIV SCREEN ####[facility] , Cholesterol.total/Chol esterol in HDL [Mass ratio] 3.1 {ratio} Normal <5.0 [facility] Comment on above: Order Comment: Reaso n for Exam Urinary frequency;Medication management;Anxiety;Microscopic Reason for Exam Microscopic hematuria;Low iron Reason for Exam Bipolar affective disorder, currently depressed, moderate Reason for Exam Vitamin D deficiency Performed By: #### C BC, [id number], THYROID SC, URMACRERAT, FE and TIBC, LIPID, SHAMA, LDLD, CMP ####[facility]#### TOXASSURE, HIV SCREEN ####[facility] , LDL Cholesterol,Calculated Not performed Normal 0-100 [facility] Comment on above: Order Comment: Reaso n for Exam Urinary frequency;Medication management;Anxiety;Microscopic Reason for Exam Microscopic hematuria;Low iron Reason for Exam Bipolar affective disorder, currently depressed, moderate Reason for Exam Vitamin D deficiency Performed By: #### C BC, [id number], THYROID SC, URMACRERAT, FE and TIBC, LIPID, SHAMA, LDLD, CMP ####[place] [address] [address]#### TOXASSURE, HIV SCREEN ####[facility] , Triglyceride w/Reflex 443 mg/dL High 0-149 [facility] Comment on above: Order Comment: [...] and resulted. Performed By: #### C BC, [id number], THYROID SC, URMACRERAT, FE and TIBC, LIPID, SHAMA, LDLD, CMP ####[place] [address] [address]#### TOXASSURE, HIV SCREEN ####[facility] , VLDL CHOLESTEROL 88 mg/dL Normal [facility] Comment on above: Order Comment: Reaso n for Exam Urinary frequency;Medication management;Anxiety;Microscopic Reason for Exam Microscopic hematuria;Low iron Reason for Exam Bipolar affective disorder, currently depressed, moderate Reason for Exam Vitamin D deficiency Performed By: #### C BC, [id number], THYROID SC, URMACRERAT, FE and TIBC, LIPID, SHAMA, LDLD, CMP ####[place] [address] [address]#### TOXASSURE, HIV SCREEN ####[facility] , MicroAlb Creat Ratio,Uon Albumin DL <= 20 mg/L (U) [Mass/Vol] 2.1 mg/dL High 0.0-1.8 [facility] Comment on above: Order Comment: Reaso n for Exam Urinary frequency;Microscopic hematuria Performed By: #### C BC, [id number], THYROID SC, URMACRERAT, FE and TIBC, LIPID, SHAMA, LDLD, CMP ####[place] [address] [address]#### TOXASSURE, HIV SCREEN ####[facility] , Creatinine, Urine (Random) 66.0 mg/dL High 11.0-20.0 [facility] Comment on above: Order Comment: Reaso n for Exam Urinary frequency;Microscopic hematuria Performed By: #### C BC, [id number], THYROID SC, URMACRERAT, FE and TIBC, LIPID, SHAMA, LDLD, CMP ####[facility]#### TOXASSURE, HIV SCREEN ####[facility] , Microalbumin/Creatinin e Ratio 31.0 mg/g High 0.0-30.0 [facility] Comment on above: Order Comment: Reaso n for Exam Urinary frequency;Microscopic hematuria Result Comment: 30-3 00 mg/g indicates an increased risk for diabetic nephropathy. Greater than 300 mg/g is consistent with clinical nephropathy. (Am. J. Kidney Disease 1995, 25:107) PERFORMED BY: [facility] [address] [place] [address] PATHOLOGIST RAIL ASSEMBLER PALOMO WESLEY M.D. Performed By: #### C BC, [id number], THYROID SC, URMACRERAT, FE and TIBC, LIPID, SHAMA, LDLD, CMP ####[place] [address] [address]#### TOXASSURE, HIV SCREEN ####[facility] , THYROID SCREENon 06-09-2023 Free T4 [Mass/Vol] 0.68 ng/dL Normal 0.61-1.12 [facility] Comment on above: Order Comment: Reaso n for Exam Urinary frequency;Medication management;Anxiety;Microscopic Reason for Exam Microscopic hematuria;Low iron Reason for Exam Bipolar affective disorder, currently depressed, moderate Reason for Exam Vitamin D deficiency Performed By: #### C BC, [id number], THYROID SC, URMACRERAT, FE and TIBC, LIPID, SHAMA, LDLD, CMP ####[place] [address] [address]#### TOXASSURE, HIV SCREEN ####[facility] , TSH Qn 2.09 m[IU]/L Normal 0.45-5.[address] [facility] Comment on above: Order Comment: Reaso n for Exam Urinary frequency;Medication management;Anxiety;Microscopic Reason for Exam Microscopic hematuria;Low iron Reason for Exam Bipolar affective disorder, currently depressed, moderate Reason for Exam Vitamin D deficiency Performed By: #### C BC, [id number], THYROID SC, URMACRERAT, FE and TIBC, LIPID, SHAMA, LDLD, CMP ####[place] [address] [address]#### TOXASSURE, HIV SCREEN ####[facility] , Toxassure, Urineon Toxassure, Urine Summary FINAL Normal . [facility] Comment on above: Order Comment: Reaso n for Exam Medication management Result Comment: ===== TOXASSURE COMP DRUG ANALYSIS,UR [...] test is not intended to distinguish between ktggk-4-rycxwvhxjylqfqnnvbba, the predominant form of THC in most herbal or marijuana-based products, and fzuqi-4-gfimbkuxrwbxyhtxgwdz. Gabapentin PRESENT Cyclobenzaprine PRESENT Desmethylcyclobenzaprine PRESENT Desmethylcyclobenzaprine is an expected metabolite of cyclobenzaprine. Naproxen PRESENT ===== Test Result Flag Units Ref Range Creatinine 63 mg/dL >=20 ===== Declared Medications: Medication list was not provided. ===== For clinical consultation, please call . ===== Performed at: [facility] [address] [id number] Save All Operator: Ana Munoz [facility], Phone: [phone] PERFORMED BY: [facility] [address] [place] [address] PATHOLOGIST RAIL ASSEMBLER PALOMO WESLEY M.D. Performed By: #### C BC, [id number], THYROID SC, URMACRERAT, FE and TIBC, LIPID, SHAMA, LDLD, CMP ####[facility] [address]#### TOXASSURE, HIV SCREEN ####[facility] , Vitamin D 25 Hydroxy Totalon 06-09-2023 Vitamin D 25 Hydroxy Total 19.8 ng/mL Low 30-100 [facility] Comment on above: Order Comment: [...] Endocrine Society clinical practice guideline. JCEM. 2011 Oct; 96(7):1911-30. PERFORMED BY: [facility] [address] [address] PATHOLOGIST RAIL ASSEMBLER PALOMO WESLEY M.D. Performed By: #### C BC, [id number], THYROID SC, URMACRERAT, FE and TIBC, LIPID, SHAMA, LDLD, CMP ####[facility] [id number] [place] [id number] [facility] [place]#### TOXASSURE, HIV SCREEN ####[facility] , Formson 04-26-2023 Forms [id number]#1. 00TIFF Normal [facility] NM Myocardial Spect Rest/Str ess 1 [...] Stress Dose (mCi Tc99M Cardiolite): 28.[address] [facility] Stress EKG Tracingson 2023 Stress EKG Tracings [id number]#1. 00TIFF Normal [facility] Consent for Treatmenton 04-05 Consent for Treatment [id number]#1.[address] [facility] Heart and Vascular Office/Cl inic Noteon 04-11-2023 Heart and Vascular Office/Clinic Note Chief Complaint new pt est care - cardiac clearance History of Present Illness Iseal Craig is a 52-year-old female who presents [...] with voice recognition artificial intelligence software, specifically [employer], [employer] and or [employer]. Substitutions may have occurred with voice recognition and artificial intelligence software. Documentation services were performed after patient or guardian consented to allow [employer] to record this visit. ANDERSON application security specialist and provider reviewed before signing. ANDERSON: [...] refi (more content not included)... Normal [facility] Comment on above: Result Comment: Elec tronically Signed By: Jose PATRICK, Ramone Butt\.br\Date and Time Signed: 04/11/23 19:52 EST\.br\Electronically Co-Signed By: Janie Villarreal\.br\Date and Time Co-Signed: 03/22/23 14:46 EST US renal BIon 04-01-2023 US renal BI [facility] [place] [address] Ultrasound Report Signed Patient: Isela Craig MR#: [id number] : 1970 Acct:[id number] Age/Sex: 52 / F ADM Date: 04/01/23 Loc: Room: Type: [facility] Attending Dr: Jes Cruz MEDICAL TYPIST-C Ordering Provider: Jes Cruz Date of Service: 04/01/23 US/US renal BI: R31.9 ([id number]) US/US bladder: R31.9 Copies to: Jes Cruz [...] Johns Jr., D.O.04/01/2023 3:16 PM Dictation Location: [facility] Tech: Chloe Rothman; Jes Delcid Transcribed By: [facility] 04/01/23 1516 Dictated By: Freddy Johns Jr DO 04/01/23 1512 Signed By: 04/01/23 1516 Normal [facility] XR KUBon 04-01-2023 XR KUB [facility] [place] [address] XRay Report Signed Patient: Isela Craig MR#: [id number] : 1970 Acct:[id number] Age/Sex: 52 / F ADM Date: 04/01/23 Loc: Room: Type: [facility] Attending Dr: Jes Cruz MEDICAL TYPIST-C Copies to: Jes Cruz Ordering Provider: Jes [...] Shae Guzman M.D.04/01/2023 3:38 PM Dictation Location: [facility] Transcribed By: [facility] 04/01/23 1538 Dictated By: Shae Guzman MD 04/01/23 1536 Signed By: 04/01/23 1538 Normal [facility] Insurance Correspondenceon 05-24-2022 Insurance Correspondence [id number] [facility] Consent for Treatmenton 03-05 Consent for Treatment [id number]#1.[address] [facility] Physician Orderon 03-22-2023 Physician Order [id number]#1 .00TIFF [facility] [place] Referrals Officeon 3 Referrals Office [id number]#1 .00TIFF [facility] [place] COVID Quick Testingon 2022 Result Negative [facility] Other Quick Strepon 12-15-2022 S. pyogenes Org specific cx Ql (Throat) Negative [facility] Other Quick Strep [facility] Other COVID + FLU Quick Testingon 10-14-2022 SARS-CoV-2 (COVID-19) RNA AISSATOU+probe Ql (Unsp spec) Negative [facility] Other COVID + FLU Quick Testing Negative [facility] Other Quick Strepon 10-14-2022 S. pyogenes Org specific cx Ql (Throat) Negative [facility] Other Quick Strep [facility] Other Office Visit (Cardiology)on 06-24-2022 Follow-up visit Diagnoses/Problems Assessed Costochondritis (733.6) (M94.0) Palpitations (785.1) (R00.2) For the most part brief and fleeting, seem most consistent with PVC. Coronary artery disease involving [place] coronary artery of [place] heart without angina pectoris (414.01) (I25.10) Mar [...] contact the office if new symptoms arise. MEDICAL TYPIST 6 weeks Chief Complaint Add on d/t [...] department evaluation. Last week she presented to [facility] due to chest pain and dizziness. [...] and fluttering . 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 Due to blood pressure and palpitations [...] Recorded: 24Jun2022 09:32AM Heart Rate88, R Radial Pdscfooo325, RUE, Si (more content not included)... Normal [facility] Tobacco Screening.on 023 Adult depression screening assessment No [facility]Rodney 250 DO Work Phone: Tobacco use status CPHS a) Yes [facility]-Sandoval 250 DO Work Phone: Tobacco Screening. Yes [facility]-[place]oval 250 DO Work Phone: Alanine aminotransferase [En zymatic activity/volume] in Serum or PlasmaOrdered By: Jes Cruz on 06-19-2022 ALT [Catalytic activity/Vol] 11 U/L 7-52 [facility] Albumin [Mass/volume] in Ser um or Plasma by Bromocresol green (BCG) dye binding methoOrdered By: Jes Cruz on 06-19-2022 Albumin BCG dye [Mass/Vol] 4.0 g/dL 3.5-5.7 [facility] Alkaline phosphatase [Enzyma tic activity/volume] in Serum or PlasmaOrdered By: Jes Cruz on 06-19-2022 ALP [Catalytic activity/Vol] 70 U/L 34-104 [facility] Aspartate aminotransferase [ Enzymatic activity/volume] in Serum or PlasmaOrdered By: Jes Cruz on 06-19-2022 AST [Catalytic activity/Vol] 11 U/L 13-39 [facility] Basophils Auto (Bld) [#/Vol] Ordered By: Jes Cruz on 06-19-2022 Basophils (Bld) [#/Vol] 0.1 10*3/uL 0.0-0.2 [facility] Basophils/100 WBC Auto (Bld) Ordered By: Jes Cruz on 06-19-2022 Basophils/100 WBC (Bld) 1.2 % . [facility] Bilirubin.total [Mass/volume ] in Serum or PlasmaOrdered By: Jes Cruz on 06-19-2022 Bilirubin [Mass/Vol] 0.2 mg/dL 0.3-1.0 [facility] C reactive protein [Mass/vol ume] in Serum or Plasma by High sensitivity methodOrdered By: Jes Cruz on 06-19-2022 CRP High sensitivity method [Mass/Vol] 0.4 mg/L 0.0-0.9 [facility] Comment on above: Cardiovascular Risk [...] on 06-19-2022 Calcium [Mass/Vol] 9.1 mg/dL 8.6-10.3 [facility] Carbon dioxide, total [Moles /volume] in Serum or PlasmaOrdered By: Jes Cruz on 06-19-2022 CO2 [Moles/Vol] 24.4 mmol/L 21.0-31.0 [facility] Chloride [Moles/volume] in S shanna or PlasmaOrdered By: Jes Cruz on 06-19-2022 Chloride [Moles/Vol] 108 mmol/L 98-107 [facility] Cholesterol [Mass/volume] in Serum or PlasmaOrdered By: Jes Curz on 06-19-2022 Cholesterol [Mass/Vol] 190 mg/dL 140-200 [facility] Comment on above: Chol less than 200 m g/dl low riskChol 201-239 mg/dl borderline riskChol 240 mg/dl and greater high risk Cholesterol in LDL Calc [Mas s/Vol]Ordered By: Jes Cruz on 06-19-2022 Cholesterol in LDL [Mass/Vol] 74 mg/dL 0-100 [facility] Comment on above: LDL ATP III CLASSIFI CATIONLDL less than 100 mg/dL OptimalLDL 100-129 mg/dL Near or above optimalLDL 130-159 mg/dL Borderline highLDL 160-189 mg/dL HighLDL greater than 189 mg/dL Very high Cholesterol in VLDL Calc [Ma ss/Vol]Ordered By: Jes Cruz on 06-19-2022 Cholesterol in VLDL [Mass/Vol] 48 mg/dL [facility] Creatine kinase [Enzymatic a ctivity/volume] in Serum or PlasmaOrdered By: Jes Cruz on 06-19-2022 CK [Catalytic activity/Vol] 35 U/L 30-223 [facility] Creatine kinase.MB [Mass/vol ume] in Serum or PlasmaOrdered By: Jes Cruz on 06-19-2022 CK.MB [Mass/Vol] 2.3 ng/mL 0.6-6.3 [facility] Creatinine [Mass/volume] in Serum or PlasmaOrdered By: Jes Cruz on 06-19-2022 Creatinine [Mass/Vol] 0.79 mg/dL 0.60-1.20 [facility] Eosinophils Auto (Bld) [#/Vo l]Ordered By: Jes Cruz on 06-19-2022 Eosinophils (Bld) [#/Vol] 0.2 10*3/uL 0.0-0.45 [facility] Eosinophils/100 WBC Auto (Bl d)Ordered By: Jes Cruz on 06-19-2022 Eosinophils/100 WBC (Bld) 2.5 % . [facility] Erythrocyte distribution wid th Auto (RBC) [Ratio]Ordered By: Jes Cruz on 06-19-2022 Erythrocyte distribution width (RBC) [Ratio] 13.2 % 11.9-15.3 [facility] Globulin Calc (S) [Mass/Vol] Ordered By: Jes Cruz on 06-19-2022 Globulin (S) [Mass/Vol] 2.3 g/dL [facility] Glucose [Mass/volume] in Ser um or PlasmaOrdered By: Jes Cruz on 06-19-2022 Glucose [Mass/Vol] 94 mg/dL 74-109 [facility] Comment on above: ADA recommended refe rence rangeRandom Glucose Reference Range is dependent on time and content of last meal. Glucose of more than 200 mg/dL in a nonstressed, ambulatory subject supports the diagnosis of Diabetes Mellitus. Hematocrit Auto (Bld) [Volum e fraction]Ordered By: Jes Cruz on 06-19-2022 Hematocrit (Bld) [Volume fraction] 39.3 % 34.0-46.4 [facility] Hemoglobin [Mass/volume] in BloodOrdered By: Jes Cruz on 06-19-2022 Hemoglobin (Bld) [Mass/Vol] 13.1 g/dL 11.8-15.4 [facility] Laboratory - Chemistry and C hemistry - challengeOrdered By: Jes Cruz on 06-19-2022 GFR/1.73 sq M.predicted MDRD (S/P/Bld) [Vol rate/Area] mL/min/{1.73_m2} [facility] Leukocytes [#/volume] correc ricardo for nucleated erythrocytes in Blood by Automated counOrdered By: Jes Cruz on 06-19-2022 WBC corrected for nucl RBC Auto (Bld) [#/Vol] 8.2 10*3/uL 3.8-11.6 [facility] Lymphocytes Auto (Bld) [#/Vo l]Ordered By: Jes Cruz on 06-19-2022 Lymphocytes (Bld) [#/Vol] 2.5 10*3/uL 1.00-4.8 [facility] Lymphocytes/100 WBC Auto (Bl d)Ordered By: Jes Cruz on 06-19-2022 Lymphocytes/100 WBC (Bld) 30.3 % . [facility] MCH Auto (RBC) [Entitic mass ]Ordered By: Jes Cruz on 06-19-2022 MCH (RBC) [Entitic mass] 33.2 pg 24.7-34.3 [facility] MCHC Auto (RBC) [Mass/Vol]Or dered By: Jes Cruz on 06-19-2022 MCHC (RBC) [Mass/Vol] 33.4 g/dL 32.0-35.0 [facility] MCV Auto (RBC) [Entitic vol] Ordered By: Jes Cruz on 06-19-2022 MCV (RBC) [Entitic vol] 99.5 fL 80-100 [facility] Monocytes Auto (Bld) [#/Vol] Ordered By: Jes Cruz on 06-19-2022 Monocytes (Bld) [#/Vol] 1.0 10*3/uL 0.0-0.8 [facility] Monocytes/100 WBC Auto (Bld) Ordered By: Jes Cruz on 06-19-2022 Monocytes/100 WBC (Bld) 11.6 % . [facility] Natriuretic peptide B [Mass/ Vol]Ordered By: Jes Cruz on 06-19-2022 Natriuretic peptide B (Bld) [Mass/Vol] 87.0 pg/mL 5-100 [facility] Neutrophils Auto (Bld) [#/Vo l]Ordered By: Jes Cruz on 06-19-2022 Neutrophils (Bld) [#/Vol] 4.5 10*3/uL 1.8-7.7 [facility] Neutrophils/100 WBC Auto (Bl d)Ordered By: Jes Cruz on 06-19-2022 Neutrophils/100 WBC (Bld) 54.4 % . [facility] No Panel InformationOrdered By: Jes Cruz on 06-19-2022 Pharmacy Creatinine Clearance (Chem N/A [facility] Nucleated erythrocytes [Pres ence] in Blood by Automated countOrdered By: Jes Cruz on 06-19-2022 Nucleated RBC Auto Ql (Bld) 0.2 /100{WBC} 0-0.5 [facility] Platelet mean volume Auto (B ld) [Entitic vol]Ordered By: Jes Cruz on 06-19-2022 Platelet mean volume (Bld) [Entitic vol] 10.2 fL 6.3-10.7 [facility] Platelets Auto (Bld) [#/Vol] Ordered By: Jes Cruz on 06-19-2022 Platelets (Bld) [#/Vol] 297 10*3/uL 150-450 [facility] Potassium [Moles/volume] in Serum or PlasmaOrdered By: Jes Cruz on 06-19-2022 Potassium [Moles/Vol] 4.3 mmol/L 3.5-5.1 [facility] Protein [Mass/volume] in Ser um or PlasmaOrdered By: Jes Cruz on 06-19-2022 Protein [Mass/Vol] 6.3 g/dL 6.4-8.9 [facility] RBC Auto (Bld) [#/Vol]Ordere d By: Jes Cruz on 06-19-2022 RBC (Bld) [#/Vol] 3.95 10*6/uL 3.60-5.00 [facility] Serum or plasma albumin/glob ulin mass ratioOrdered By: Jes Cruz on 06-19-2022 Albumin/Globulin [Mass ratio] 1.7 {ratio} [facility] Serum or plasma anion gap de terminationOrdered By: Jes Cruz on 06-19-2022 Anion gap [Moles/Vol] 10.9 mmol/L 6.0-15.0 [facility] Serum or plasma creatine kin ase MB (CKMB)/total creatine kinase (CK) ratio by calculaOrdered By: Jes Cruz on 06-19-2022 CK.MB Calc [Catalytic fraction] 6.5 % 0.00-2.50 [facility] Serum or plasma high density lipoprotein (HDL) cholesterol measurementOrdered By: Jes Cruz on 06-19-2022 Cholesterol in HDL [Mass/Vol] 68 mg/dL 35-85 [facility] Comment on above: HDL CHOL ATP-III CLA SSIFICATION Cardiovascular RiskHDL > or equal to 60 mg/dL LOWHDL < 40 mg/dL HIGH Serum or plasma total choles terol/high density lipoprotein (HDL) cholesterol mass ratOrdered By: Jes Cruz on 06-19-2022 Cholesterol.total/Chol esterol in HDL [Mass ratio] 2.8 {ratio} <5.0 [facility] Sodium [Moles/volume] in Ser um or PlasmaOrdered By: Jes Cruz on 06-19-2022 Sodium [Moles/Vol] 139 mmol/L 136-145 [facility] Thyrotropin [Units/volume] i n Serum or PlasmaOrdered By: Jes Cruz on 06-19-2022 TSH Qn 2.33 m[IU]/L 0.45-5.33 [facility] Thyroxine (T4) free [Mass/vo lume] in Serum or PlasmaOrdered By: Jes Cruz on 06-19-2022 Free T4 [Mass/Vol] 0.63 ng/dL 0.61-1.12 [facility] Triglyceride [Mass/volume] i n Serum or PlasmaOrdered By: Jes Cruz on 06-19-2022 Triglyceride [Mass/Vol] 241 mg/dL 0-149 [facility] Comment on above: TRIG ATP III CLASSIF ICATIONTRIG less than 150 mg/dL NormalTRIG 150-199 mg/dL Borderline highTRIG 200-500 mg/dL High TRIG greater than 500 mg/dL Very highStandard traceable to the Center for Disease Conrtrol and Prevention (CDC) test method. Urea nitrogen [Mass/volume] in Serum or PlasmaOrdered By: Jes Cruz on 06-19-2022 Urea nitrogen [Mass/Vol] 9 mg/dL 7-25 [facility] WBC Auto (Bld) [#/Vol]Ordere d By: Jes Cruz on 06-19-2022 WBC (Bld) [#/Vol] 8.2 10*3/uL 3.8-11.6 [facility] CARDIAC BJORN ADMITon 023 CK [Catalytic activity/Vol] 54 U/L Normal 26-192 [facility] Comment on above: Performed By: #### C JORDAN, CMP #### [facility] [address] [address] [address] Howard Guthrie CK.MB [Mass/Vol] 1.70 ng/mL Normal <=3.60 [facility] Comment on above: Performed By: #### C MADM, CMP #### [facility] [address] [address] [address] Howard Guthrie HSTROP <4.0 Normal 4.0-51.3 [facility] Comment on above: Result Comment: CUT- OFF POINTS HAVE BEEN ESTABLISHED BASED ON THE FOURTH UNIVERSAL DEFINITIONS OF MYOCARDIAL INFARCTION. THE UPPER REFERENCE LIMIT (URL) OF TROPONIN, DEFINED THE 99TH PERCENTILE OF cTnI DISTRIBUTION IN A REFERENCE POPULATION, HAS BEEN CONFIRMED THE DECISION THRESHOLD FOR [place] DIAGNOSIS. Performed By: #### C MADM, CMP #### [facility] [address] [place], [place] [address] Dr. Howard Guthrie NYA 23 ng/mL Normal 9-82 [facility] Comment on above: Performed By: #### C MADM, CMP #### [facility] [address] [address] [address] Howard Guthrie CBC AUTO DIFFon 06-17-2022 BASO # 0.1 103/ul Normal 0.0-0.1 [facility] Comment on above: Performed By: #### C BC #### [facility] [address] [address] [address] Howard Guthrie Basophils/100 WBC (Bld) 1.0 % Normal 0.2-2.0 [facility] Comment on above: Performed By: #### C BC #### [facility] [address] [place] [address] Dr. Howard Guthrie EO # 0.2 103/ul Normal 0.0-0.7 [facility] Comment on above: Performed By: #### C BC #### [facility] [address] [place] [address] Dr. Howard Guthrie Eosinophils/100 WBC (Bld) 2.9 % Normal 0.9-7.0 [facility] Comment on above: Performed By: #### C BC #### [facility] [address] [place] [address] Dr. Howard Guthrie Erythrocyte distribution width (RBC) [Ratio] 12.7 % Normal 11.0-15.0 [facility] Comment on above: Performed By: #### C BC #### [facility] [address] [place] [address] Dr. Howard Guthrie Hematocrit (Bld) [Volume fraction] 42.5 % Normal 36.0-48.0 [facility] Comment on above: Performed By: #### C BC #### [facility] [address] [place] [address] Dr. Howard Guthrie Hemoglobin (Bld) [Mass/Vol] 14.7 g/dL Normal 12.0-16.0 [facility] Comment on above: Performed By: #### C BC #### [facility] [address] [place] [address] Dr. Howard Guthrie IG # 0.02 10e3/ul Normal 0.00-0.03 [facility] Comment on above: Performed By: #### C BC #### [facility] [address] [place] [address] Dr. Howard Guthrie IG % 0.3 % Normal 0.0-0.5 [facility] Comment on above: Performed By: #### C BC #### [facility] [address] [place] [address] Dr. Howard Guthrie LYMPH # 2.1 103/ul Normal 1.2-3.8 [facility] Comment on above: Performed By: #### C BC #### [facility] [address] [place] [address] Dr. Howard Guthrie Lymphocytes/100 WBC (Bld) 28.4 % Normal 20.5-60.0 [facility] Comment on above: Performed By: #### C BC #### [facility] [address] [place] [address] Dr. Howard Guthrie MANUAL DIFF REQ NO Normal [facility] Comment on above: Performed By: #### C BC #### [facility] [address] [place] [address] Dr. Howard Guthrie MCH (RBC) [Entitic mass] 33.1 pg Normal 26.7-34.0 [facility] Comment on above: Performed By: #### C BC #### [facility] [address] [place] [address] Dr. Howard Guthrie MCHC (RBC) [Mass/Vol] 34.6 g/dL Normal 29.9-35.2 [facility] Comment on above: Performed By: #### C BC #### [facility] [address] [place] [address] Dr. Howard Guthrie MCV (RBC) [Entitic vol] 95.7 fL Normal 81.0-99.0 [facility] Comment on above: Performed By: #### C BC #### [facility] [address] [place] [address] Dr. Howard Guthrie MONO # 1.0 103/ul Critically high 0.3-0.8 [facility] Comment on above: Performed By: #### C BC #### [facility] [address] [address] [address] Howard Guthrie Monocytes/100 WBC (Bld) 13.1 % Critically high 1.7-12.0 [facility] Comment on above: Performed By: #### C BC #### [facility] [address] [address] [address] Howard Guthrie NEUT # 4.0 103/ul Normal 1.4-6.5 [facility] Comment on above: Performed By: #### C BC #### [facility] [address] [place] [address] Dr. Howard Guthrie Neutrophils/100 WBC (Bld) 54.3 % Normal 43.0-75.0 [facility] Comment on above: Performed By: #### C BC #### [facility] [address] [place] [address] Dr. Howard Guthrie Platelet mean volume (Bld) [Entitic vol] 10.0 fL Normal 9.5-13.5 [facility] Comment on above: Performed By: #### C BC #### [facility] [address] [place] [address] Dr. Howard Guthrie PLT 343 103/ul Normal 150-450 [facility] Comment on above: Performed By: #### C BC #### [facility] [address] [place] [address] Dr. Howard Guthrie RBC 4.44 106/ul Normal 4.20-5.40 [facility] Comment on above: Performed By: #### C BC #### [facility] [address] [place] [address] Dr. Howard Guthrie WBC 7.4 103/ul Normal 4.0-11.0 [facility] Comment on above: Performed By: #### C BC #### [facility] [address] [place] [address] Dr. Howard Guthrie D-DIMERon 06-17-2022 D-DIMER 0.43 mg/L FEU Normal <=0.59 [facility] Comment on above: Performed By: #### D DIM #### [facility] [address] [place] [address] Dr. Howard Guthrie D-DIMER COMMENTS SEE BELOW Normal [facility] Comment on above: Result Comment: Incr [...] hospitalization. Performed By: #### D DIM #### [facility] [address] [place] [address] Dr. Howard Guthrie ER URINE PROFILEon 3 Bilirubin Ql (U) Negative Normal NEGATIVE [facility] Comment on above: Performed By: #### U MICRO, ERUR #### [facility] [address] [place] [address] Dr. Howard Guthrie Clarity (U) CLEAR Normal CLEAR [facility] Comment on above: Performed By: #### U MICRO, ERUR #### [facility] [address] [place] [address] Dr. Howard Guthrei Color (U) LT. YELLOW Normal YELLOW [facility] Comment on above: Performed By: #### U MICRO, ERUR #### [facility] [address] [place] [address] Dr. Howard JCAHD A micrscopic examination will be performed if indicated. Normal [facility] Comment on above: Performed By: #### U MICRO, ERUR #### [facility] [address] [place] [address] Dr. Howard Guthrie Glucose Ql (U) Negative Normal NEGATIVE [facility] Comment on above: Performed By: #### U MICRO, ERUR #### [facility] [address] [place] [address] Dr. Howard Guthrie Hemoglobin Ql (U) SMALL Abnormal NEGATIVE [facility] Comment on above: Performed By: #### U MICRO, ERUR #### [facility] [address] [address] [address] Howard Guthrie Ketones Ql (U) Negative Normal NEGATIVE [facility] Comment on above: Performed By: #### U MICRO, ERUR #### [facility] [address] [place] [address] Dr. Howard Guthrie LEUKOCYTES Negative Normal NEGATIVE [facility] Comment on above: Performed By: #### U MICRO, ERUR #### [facility] [address] [address] [address] Howard Guthrie Nitrite Ql (U) Negative Normal NEGATIVE [facility] Comment on above: Performed By: #### U MICRO, ERUR #### [facility] [address] [place] [address] Dr. Howard Guthrie pH (U) 7.0 [pH] Normal 5-9 [facility] Comment on above: Performed By: #### U MICRO, ERUR #### [facility] [address] [address] [address] Howard Guthrie SPEC GRAVITY 1.015 Normal 1.005-<=1.0 25 [facility] Comment on above: Performed By: #### U MICRO, ERUR #### [facility] [address] [place] [address] Dr. Howard Guthrie UA PROTEIN Negative Normal NEGATIVE/ TRACE [facility] Comment on above: Performed By: #### U MICRO, ERUR #### [facility] [address] [address] [address] Howard Guthrie UR MICRO IND INDICATED Normal [facility] Comment on above: Performed By: #### U MICRO, ERUR #### [facility] [address] [place] [address] Dr. Howard Guthrie Urobilinogen Qn (U) 0.2 {Abdiaziz'U}/dL Normal 0.2 - 1. 0 [facility] Comment on above: Performed By: #### U MICRO, ERUR #### [facility] [address] [place] [address] Dr. Howard Guthrie PROF 14(COMP METB)on 03-15-2 023 Albumin [Mass/Vol] 3.8 g/dL Normal 3.4-5.0 [facility] Comment on above: Performed By: #### C JORDAN, CMP #### [facility] [address] [address] [address] Howard Guthrie Albumin/Globulin [Mass ratio] 1.1 {ratio} Normal [facility] Comment on above: Performed By: #### C JORDAN, CMP #### [facility] [address] [address] [address] Howard Guthrie ALP [Catalytic activity/Vol] 96 U/L Normal 46-116 [facility] Comment on above: Performed By: #### C JORDAN, CMP #### [facility] [address] [address] [address] Howard Guthrie ALT [Catalytic activity/Vol] 19 U/L Normal 14-59 [facility] Comment on above: Performed By: #### C JORDAN, CMP #### [facility] [address] [address] [address] Howard Guthrie Anion gap [Moles/Vol] 11.2 mmol/L Normal [facility] Comment on above: Performed By: #### C JORDAN, CMP #### [facility] [address] [address] [address] Howard Guthrie AST [Catalytic activity/Vol] 19 U/L Normal 15-37 [facility] Comment on above: Performed By: #### Terrie ORTEGA, CMP #### [facility] [address] [address] [address] Howard Guthrie Bilirubin [Mass/Vol] 0.5 mg/dL Normal 0.2-1.0 [facility] Comment on above: Performed By: #### C JORDAN, CMP #### [facility] [address] [address] [address] Howard Guthrie Calcium [Mass/Vol] 8.8 mg/dL Normal 8.5-10.1 [facility] Comment on above: Performed By: #### C JORDAN, CMP #### [facility] [address] [address] [address] Howard Guthrie Chloride [Moles/Vol] 104 mmol/L Normal 98-107 [facility] Comment on above: Performed By: #### C JORDAN, CMP #### [facility] [address] [address] [address] Howard Guthrie CO2 [Moles/Vol] 24.1 mmol/L Normal 21.0-32.0 [facility] Comment on above: Performed By: #### C MICHAELM, CMP #### [facility] [address] [place] [address] Dr. Howard Guthrie Creatinine [Mass/Vol] 0.73 mg/dL Normal 0.55-1.02 [facility] Comment on above: Performed By: #### C JORDAN, CMP #### [facility] [address] [place] [address] Dr. Howard Guthrie EGFR-AF WALLISIAN >60 Normal >=60 [facility] Comment on above: Performed By: #### C JORDAN, CMP #### [facility] [address] [place] [address] Dr. Howard Guthrie EGFR-NON AF WALLISIAN >60 Normal >=60 [facility] Comment on above: Performed By: #### C JORDAN, CMP #### [facility] [address] [place] [address] Dr. Howard Guthrie Globulin (S) [Mass/Vol] 3.6 g/dL Normal [facility] Comment on above: Performed By: #### C JORDAN, CMP #### [facility] [address] [place] [address] Dr. Howard Guthrie Glucose [Mass/Vol] 112 mg/dL Critically high 74-106 [facility] Comment on above: Performed By: #### C JORDAN, CMP #### [facility] [address] [place] [address] Dr. Howard Guthrie Potassium [Moles/Vol] 3.3 mmol/L Critically low 3.5-5.1 [facility] Comment on above: Performed By: #### C JORDAN, CMP #### [facility] [address] [place] [address] Dr. Howard Guthrie Protein [Mass/Vol] 7.4 g/dL Normal 6.4-8.[address] [facility] Comment on above: Performed By: #### C JORDAN, CMP #### [facility] [address] [place] [address] Dr. Howard Guthrie Sodium [Moles/Vol] 136 mmol/L Normal 136-[address] [facility] Comment on above: Performed By: #### C JORDAN, CMP #### [facility] [address] [place] [address] Dr. Howard Guthrie Urea nitrogen [Mass/Vol] 6.0 mg/dL Critically low 7.0-18.0 [facility] Comment on above: Performed By: #### C JORDAN, CMP #### [facility] [address] [place] [address] Dr. Howard Guthrie Urea nitrogen/Creatinine [Mass ratio] 8.2 mg/mg Normal [facility] Comment on above: Performed By: #### C JORDAN, CMP #### [facility] [address] [place] [address] Dr. Howard Guthrie TROPONIN, HIGH SENSITIVITYon 06-17-2022 HSTROP 4.6 pg/mL Normal 4.0-51.3 [facility] Comment on above: Result Comment: CUT- OFF POINTS HAVE BEEN ESTABLISHED BASED ON THE FOURTH UNIVERSAL DEFINITIONS OF MYOCARDIAL INFARCTION. THE UPPER REFERENCE LIMIT (URL) OF TROPONIN, DEFINED THE 99TH PERCENTILE OF cTnI DISTRIBUTION IN A REFERENCE POPULATION, HAS BEEN CONFIRMED THE DECISION THRESHOLD FOR [place] DIAGNOSIS. Performed By: #### H STROPN #### [facility] [address] [place] [address] Dr. Howard Guthrie URINE MICROSCOPIC ONLYon BACTERIA TRACE Abnormal NONE SEEN [facility] Comment on above: Performed By: #### U MICRO, ERUR #### [facility] [address] [place] [address] Dr. Howard Guthrie Bacteria identified Cx Nom (U) NOT INDICATED Normal [facility] Comment on above: Performed By: #### U MICRO, ERUR #### [facility] [address] [place] [address] Dr. Howard Guthrie CAST NONE SEEN Normal NONE SEEN [facility] Comment on above: Performed By: #### U MICRO, ERUR #### [facility] [address] [address] [address] Howard Guthrie Crystals LM Nom (Urine sed) NONE SEEN Normal NONE SEEN [facility] Comment on above: Performed By: #### U MICRO, ERUR #### [facility] [address] [place] [address] Dr. Howard Guthrie Epithelial cells LM Ql (Urine sed) FEW Abnormal NONE SEEN /RARE [facility] Comment on above: Performed By: #### U MICRO, ERUR #### [facility] [address] [place] [address] Dr. Howard Guthrie MUCOUS TRACE Abnormal NONE SEEN [facility] Comment on above: Performed By: #### U MICRO, ERUR #### [facility] [address] [place] [address] Dr. Howard Guthrie RBC 2-5 Abnormal 0-2 [facility] Comment on above: Performed By: #### U MICRO, ERUR #### [facility] [address] [place] [address] Dr. Howard Guthrie WBC NONE SEEN Normal NONE SEEN [facility] Comment on above: Performed By: #### U MICRO, ERUR #### [facility] [address] [place] [address] Dr. Howard Guthrie XR CHEST 1 Von [...] NICK MARIE Date: 2022-06-17 12:26 Normal [facility] Tobacco Screening.on 022 Adult depression screening assessment No [facility] 250 DO Work Phone: Tobacco use status [facility] a) Yes [facility] 250 DO Work Phone: Tobacco Screening. Yes [facility] 250 DO Work Phone: Vital Signs Date Time Vital Sign Value Performing Clinician Tonja figueroa 09-13-2023 13:06-0400 Blood Pressure Location Roosevelt Sotelo [facility] 09-13-2023 13:06-0400 Diastolic blood pressure 85 mm[Hg] Roosevelt Sotelo [facility] 09-13-2023 13:06-0400 Heart rate 90 /min Roosevelt Sotelo [facility] 09-13-2023 13:06-0400 SaO2% (BldA) [Mass fraction] 99 % Roosevelt Sotelo [facility] 09-13-2023 13:06-0400 Systolic blood pressure 125 mm[Hg] Roosevelt Sotelo [facility] 08-10-2023 09:19-0400 Blood Pressure Location JES ROLLE [facility] 08-10-2023 09:19-0400 Body temperature 98.24 [degF] JES ROLLE [facility] 08-10-2023 09:19-0400 Diastolic blood pressure 78 mm[Hg] JES ROLLE [facility] 08-10-2023 09:19-0400 Heart rate 80 /min JES ROLLE [facility] 08-10-2023 09:19-0400 Respiratory rate 19 /min JES ROLLE [facility] 08-10-2023 09:19-0400 Systolic blood pressure 136 mm[Hg] JES ROLLE [facility] 03-22-2023 13:16-0500 Blood Pressure Location Ramone Garcia [facility] 03-22-2023 13:16-0500 Diastolic blood pressure 85 mm[Hg] Ramone Jose [facility] 03-22-2023 13:16-0500 Heart rate 90 /min Ramone Garcia [facility] 03-22-2023 13:16-0500 SaO2% (BldA) [Mass fraction] 99 % Ramone Garcia [facility] 03-22-2023 13:16-0500 Systolic blood pressure 126 mm[Hg] Ramone Jose [facility] 12-15-2022 13:20-0400 Body height 165.1 cm Loretta Javier Other [facility] Other 12-15-2022 13:20-0400 Body mass index (BMI) [Ratio] 23.13 kg/m2 Loretta Javier Other [facility] Other 12-15-2022 13:20-0400 Body temperature 98.1 [degF] Loretta Javier Other [facility] Other 12-15-2022 13:20-0400 Body weight 63.05 kg Loretta Javier Other [facility] Other 12-15-2022 13:20-0400 Diastolic blood pressure 76 mm[Hg] Loretta Javier Other [facility] Other 12-15-2022 13:20-0400 Respiratory rate 18 /min Loretta Javier Other [facility] Other 12-15-2022 13:20-0400 SaO2% (BldA) [Mass fraction] 98 % Loretta Javier Other [facility] Other 12-15-2022 13:20-0400 Systolic blood pressure 128 mm[Hg] Loretta Javier Other [facility] Other 10-14-2022 11:10-0400 Body height 165.1 cm Tanya Pangmond Other [facility] Other 10-14-2022 11:10-0400 Body mass index (BMI) [Ratio] 23.39 kg/m2 Tanya Pangmond Other [facility] Other 10-14-2022 11:10-0400 Body temperature 97.8 [degF] Tanya Pangmond Other [facility] Other 10-14-2022 11:10-0400 Body weight 63.78 kg Tanya Pangmond Other [facility] Other 10-14-2022 11:10-0400 Diastolic blood pressure 85 mm[Hg] Tanya Belen Other [facility] Other 10-14-2022 11:10-0400 Respiratory rate 18 /min Tanya Belen Other [facility] Other 10-14-2022 11:10-0400 SaO2% (BldA) [Mass fraction] 99 % Tanya Glover Other [facility] Other 10-14-2022 11:10-0400 Systolic blood pressure 143 mm[Hg] Tanya Glover Other [facility] Other 06-24-2022 09:32-0400 Body height 165.1 cm No PCP None [facility] 250 DO Work Phone: 06-24-2022 09:32-0400 Body mass index (BMI) [Ratio] 24.63 kg/m2 No PCP None [facility] 250 DO Work Phone: 06-24-2022 09:32-0400 Body surface area Derived from formula 1.74 m2 No PCP None [facility] 250 DO Work Phone: 06-24-2022 09:32-0400 Body weight 67.13 kg No PCP None [facility] 250 DO Work Phone: 06-24-2022 09:32-0400 Diastolic blood pressure 82 mm[Hg] No PCP None [facility] 250 DO Work Phone: 06-24-2022 09:32-0400 Heart rate 88 /min No PCP None [facility] 250 DO Work Phone: 06-24-2022 09:32-0400 Systolic blood pressure 124 mm[Hg] No PCP None [facility] 250 DO Work Phone: 06-02-2021 15:09-0500 Diastolic blood pressure 98 mm[Hg] No PCP None [facility] 250 DO Work Phone: 06-02-2021 15:09-0500 Systolic blood pressure 142 mm[Hg] No PCP None [facility] 250 DO Work Phone: 06-02-2021 15:03-0500 Body height 165.1 cm No PCP None [facility] 250 DO Work Phone: 06-02-2021 15:03-0500 Body mass index (BMI) [Ratio] 28.29 kg/m2 No PCP None [facility] 250 DO Work Phone: 06-02-2021 15:03-0500 Body surface area Derived from formula 1.85 m2 No PCP None [facility] 250 DO Work Phone: 06-02-2021 15:03-0500 Body weight 77.11 kg No PCP None [facility] 250 DO Work Phone: 06-02-2021 15:03-0500 Diastolic blood pressure 90 mm[Hg] No PCP None [facility] 250 DO Work Phone: 06-02-2021 15:03-0500 Heart rate 92 /min No PCP None [facility] 250 DO Work Phone: 06-02-2021 15:03-0500 Systolic blood pressure 142 mm[Hg] No PCP None [facility] 250 DO Work Phone: Encounters Encounter Date Encounter Type Care Provider Facility Start: 12-17-2023 End: 12-17-2023 ambulatory [facility] Start: 12-14-2023 End: 12-14-2023 ambulatory [facility] Start: 12-02-2023 End: 12-02-2023 Patient encounter procedure MEDICAL TYPIST-C Jes Cruz Work Phone: [facility] [address] Work Phone: Start: 12-02-2023 End: 12-02-2023 ambulatory MEDICAL TYPISTJagruti Cruz Work Phone: [facility] Work Phone: Start: 11-26-2023 ambulatory Alexandro PARTIDA Facili ty:[facility] Start: 11-25-2023 End: 11-25-2023 ambulatory Alexandro PARTIDA Facility:[id number] Start: 11-01-2023 End: 11-01-2023 Patient encounter procedure MEDICAL TYPIST-C Jes Cruz Work Phone: [facility] [address] [place] Work Phone: Start: 11-01-2023 End: 11-01-2023 ambulatory MEDICAL TYPIST-C Jes Cruz Work Phone: [facility] Work Phone: Start: 10-14-2023 End: 10-14-2023 ambulatory JES ROLLE Facility:[facility] Start: 10-14-2023 End: 10-14-2023 Patient encounter procedure JES ROLLE [facility] Start: 10-12-2023 Non-patient / Non-visit MEDICAL TYPIST-C Jes Cruz [facility] Phone[facility] Work Phone: Start: 10-05-2023 End: 10-05-2023 ambulatory Alexandro PARTIDA Facility:[facility] Start: 10-05-2023 End: 10-05-2023 Patient encounter procedure Alexandro PARTIDA [facility] Start: 09-18-2023 End: 09-19-2023 Emergency department patient visit [facility] Start: 09-13-2023 End: 09-13-2023 ambulatory XXXX NONE Facility:[facility] Start: 09-13-2023 End: 09-13-2023 Patient encounter procedure Roosevelt Sotelo [facility] Start: 09-11-2023 Non-patient / Non-visit MEDICAL TYPIST-C Jes Cruz Work Phone: [facility] Work Phone: Start: 08-10-2023 End: 08-10-2023 ambulatory JES ROLLE Facility:[facility] Start: 08-10-2023 End: 08-10-2023 Lab Drop off JES ROLLE [facility] Start: 08-10-2023 End: 08-10-2023 ambulatory JES CRUZ Facility:[facility] Start: 08-10-2023 End: 08-10-2023 Patient encounter procedure JES ROLLE [facility] Start: 06-09-2023 End: 06-09-2023 ambulatory Jes Cruz Facility:[facility] Start: 04-27-2023 ambulatory Alexandro PARTIDA Facility : [place] Start: 04-16-2023 End: 04-16-2023 ambulatory Ramone Garcia Facility:[facility] Start: 04-16-2023 End: 04-16-2023 Patient encounter procedure Ramone Garcia [facility] Start: 04-01-2023 End: 04-01-2023 ambulatory PHYSICIAN PRETTY HOLLEY Facility:[facility] Start: 03-22-2023 End: 03-22-2023 ambulatory JES CRUZ Facility:[facility] Start: 03-22-2023 End: 03-22-2023 Patient encounter procedure Ramone Garcia [facility] Start: 12-15-2022 End: 12-15-2022 ambulatory Loretta Javier Other [facility] [employer] Other Start: 12-15-2022 Office outpatient visit 25 minutes Loretta Javier [facility] Start: 10-14-2022 End: 10-14-2022 ambulatory Tanya Glover Other [employer] Other Start: 10-14-2022 Office outpatient visit 15 minutes Tanya Glover [facility] Start: 08-14-2022 ambulatory MsShyanne Andre Terrie Tamezson Facility: Start: 08-14-2022 FUV, Provider: Nadia Franks, Status: Pen, Time: 1:00 PM No PCP None -[facility] 250 DO Work Phone: Start: 08-06-2022 Rx Renewal No PCP None -[facility] 250 DO Work Phone: Start: 06-24-2022 Office outpatient visit 15 minutes No PCP None [facility] 250 DO Work Phone: Start: 06-24-2022 ambulatory Ms. Nadia Lainez Andrew h Facility: Start: 06-19-2022 End: 06-19-2022 ambulatory PHYSICIAN NO [facility] Work Phone: Start: 06-19-2022 End: 06-19-2022 Departed Referred PHYSICIAN NO [facility] Start: 06-17-2022 End: 06-17-2022 ambulatory RIVER MARTE . Facility: Start: 11-10-2021 ambulatory Ms. Nadia Morales h Facility: Start: 10-27-2021 Rx Renewal No PCP None -[facility] 250 DO Work Phone: Start: 06-02-2021 Office outpatient visit 25 minutes No PCP None [facility] 250 DO Work Phone: Procedures Date Procedure Procedure Detail Performing Clinician Start: 12-02-2023 MR lumbar spine wo con MEDICAL TYPISTJagruti paiz Work Phone: Start: 11-01-2023 Urine culture MEDICAL TYPIST-C Jes mcelroyshantell Work Phone: Start: 10-05-2023 Cystourethroscopy with dilation of urethral stricture JES ROLLE Cardiac catheter (ph ysical object) Ramone Garcia Cardiac catheterization No P CP None Colonoscopy Ramone Chase rson Hysterectomy Ramone sanchez Operative procedure on foot No PCP None Procedure on back No PCP Non e Procedure on back Ramone Boss umm Plan of Treatment Date Care Activity Detail Author Start: 12-17-2023 ambulatory Ambulatory Facility:[facility] Start: 11-01-2023 Bacteria identified in Urine by Culture [facility] Start: 08-14-2022 FUV, Provider: Nadia Franks, Status: Pen, Time: 1:00 PM FUV, Provider: Nadia Franks, Status: Pen, Time: 1:00 PM [facility] 250 DO Work Phone: Start: 11-10-2021 FUV, Provider: Nadia Franks, Status: Pen, Time: 3:00 PM FUV, Provider: Nadia Franks, Status: Pen, Time: 3:00 PM [facility] Work Phone: Start: 06-30-2021 FUV, Provider: Nadia Franks, Status: Pen, Time: 8:00 AM FUV, Provider: Nadia Franks, Status: Pen, Time: 8:00 AM [facility] 250 DO Work Phone: Estradiol (E2) [Mass/volume] in Serum or Plasma [facility] Lutropin [Units/volu me] in Serum or Plasma [facility] Immunizations Immunization Date Immunization Notes Care Provider Jennifer lacy 03-25-2021 influenza, injectabl e, quadrivalent, preservative free No PCP None [facility] 01-05-2020 influenza, injectabl e, quadrivalent, preservative free No PCP None [facility] 250 DO Work Phone: 01-06-2019 influenza, injectabl e, quadrivalent, preservative free [facility] Payers Date Payer Category Payer Self-pay [id number] 1970 Unknown [id number] 2.16.840.1.830969.3.579.2. 593 1970 Unknown [id number] 2.16.840.1.927336.3.579.2. 356 1971 Unknown [id number] 2.16.840.1.624833.3.579.2. 356 1971 Unknown [id number] 2.16.840.1.104061.3.579.2. 356 1971 Unknown [id number] 2.16.840.1.357842.3.579.2. 1286 1971 Unknown [id number] 2.16.840.1.543589.3.579.2. 1286 1971 Unknown [id number] 2.16.840.1.197071.3.579.2. 727 1971 Unknown [id number] 2.16.840.1.635077.3.579.2. 727 1971 Unknown [id number] 2.16.840.1.120282.3.579.2. 727 1971 Unknown [id number] 2.16.840.1.330230.3.579.2. 727 1971 Unknown [id number] 2.16.840.1.771771.3.579.2. 727 1971 Unknown [id number] 2.16.840.1.044094.3.579.2. 727 1971 Unknown [id number] 2.16.840.1.194943.3.579.2. 727 1971 Unknown [id number] 2.16.840.1.269579.3.579.2. 727 1971 Unknown [id number] 2.16.840.1.134848.3.579.2. 727 1971 Unknown [id number] 2.16.840.1.981334.3.579.2. 727 1959 Medicaid [id number] Private Health Insurance [id number] Unknown [id number] Unknown [employer] Unknown [id number] Unknown [id number] 2.16.840.1.645058.3.579.2. 531 Unknown [id number] 2.16.840.1.307856.3.579.2. 531 Unknown [id number] 2.16.840.1.145111.3.579.2. 531 Unknown [id number] 2.16.840.1.738599.3.579.2. 531 Social History Date Type Detail Facility Tobacco smoking stat [facility] Unknown if ever smoked [facility] Start: 1970 Sex Assigned At Female F [facility] Illicit drug use Illicit drug use [facility] 250 DO Work Phone: Comment on above: 1 pack per daily.; Start: 05-26-2021 Tobacco smoking stat [facility] Ex-smoker (finding) [facility] Sex Assigned At [facility] Start: 03-22-2023 End: 08-10-2023 Tobacco smoking status Light tobacco smoker (finding) [facility] Tobacco smoking status Never [facility] Medical Equipment Procedure Code Equipment Code Equipment Origin al Text Equipment Identifier Dates Thoracotomy Staple line-reinforcement strip [id number] FDA Start: 03-26-2021 Thoracotomy Surgical adhesive/sealant, human-derived ()[id number] FDA Start: 03-26-2021 Goals Date Patient Goal Desired Activity /State Functional Status Date Assessment Result Facility 10-14-2023 Functional Status N/A [facility] 09-13-2023 Functional Status No [facility] 08-10-2023 Functional Status N/A [facility] 03-22-2023 Functional Status No [facility] Clinical Notes 10-14-2022 to 12-14-2023 Note Date & Type Note Facility 12-14-2023 Note SUBJECTIVE: Chief complaint: Broken lumbar hardware. History of present illness: Consultation referred by primary care provider Jes Cruz NP, for broken lumbar hardware. Patient had a lumbar fusion by neurosurgeon Dr. Hernández about 20 years ago. States prior to surgery, she had been experiencing low back pain. Surgery did seem to help her back pain. However, a few months ago she was dragged across her yard by her dog. States since then, she has been having low back pain which is hurting on the right and burning on the left. Pain also radiates posteriorly down both legs. Not clear if it goes into her toes, though at least her ankles. Leg pain is more bothersome than back pain, primarily her left leg. No variation with time of day. Better lying supine. Worse with movement. She does also notice that both feet have been burning for the past 2 weeks. She does report imbalance and history of falls. She does report recent urinary urgency, though notes she was also supposed to have a bladder sling with urology and has not yet. She denies bowel incontinence. She has not had any recent physical therapy. Has not seen pain management or had recent injections. She was recently started on Vivitrol for history of alcohol dependence. She notes that this is limited her options as far as medications for her pain. 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 She does also note pain elsewhere, including neck, arms, hands. She reports generalized pain. Denies fever or chills. Review of systems: As in HPI. Past Medical History: Diagnosis Date Alcohol abuse Anxiety Bipolar disorder (CMS/HCC) Chronic sinusitis Cocaine use 05/2023 COPD (chronic obstructive pulmonary disease) (CMS/HCC) Coronary vasospasm (CMS/HCC) Diverticulosis per CT 08/2023 Dyslipidemia Endometriosis Hypertension Spontaneous pneumothorax Vitamin D deficiency Past Surgical History: Procedure Laterality Date CARDIAC CATHETERIZATION 2020 COLONOSCOPY 2019 FOOT SURGERY Right 2022 HYSTERECTOMY endometriosis, partial hysterectomy LUMBAR FUSION THORACOSCOPY W/ TALC PLEURODESIS for spontaneous pneumothorax 03/2021 Social History Tobacco Use Smoking status: Every Day Packs/day: 0.25 Years: 30.00 Additional pack years: 0.00 Total pack years: 7.50 Types: Cigarettes Passive exposure: Current Smokeless tobacco: Never Substance Use Topics Alcohol use: Never Comment: 89 days sober Drug use: Yes Types: Marijuana Comment: medical card Family History Problem Relation Name Age of Onset Coronary artery disease Mother Hypertension Mother Other (substance use) Father Hypertension Father Other (substance abuse) Daughter 05/2023 drug overdose OBJECTIVE: Medications: ARIPiprazole aspirin atorvastatin busPIRone cholecalciferol diazePAM gabapentin ibuprofen isosorbide mononitrate ER meclizine melatonin methylPREDNISolone mirtazapine naloxone nicotine nicotine polacrilex omeprazole ondansetron ODT prazosin propranolol propylene glycol liquid VivitroL suspension,extended rel recon Current Outpatient Medications: ARIPiprazole (Abilify) 10 mg tablet, Take 10 mg by mouth in the morning., Disp: , Rfl: aspirin 81 mg chewable tablet, Chew 81 mg in the morning., Disp: , Rfl: atorvastatin (Lipitor) 40 mg tablet, Take 40 mg by mouth in the morning., Disp: , Rfl: busPIRone (Buspar) 7.5 mg tablet, Take 7.5 mg by mouth in the morning, afternoon, and at bedtime., Disp: , Rfl: cholecalciferol (Vitamin D-3) 125 MCG (5000 UT) capsule, TAKE 1 CAPSULE BY MOUTH DAILY FOR 90 DAYS, Disp: , Rfl: gabapentin (Neurontin) 400 mg capsule, Take 400 mg by mouth in the morning, afternoon, and at bedtime., Disp: , Rfl: ibuprofen 800 mg tablet, every 8 (eight) hours., Disp: , Rfl: isosorbide mononitrate ER (Imdur) 30 mg 24 hr tablet, TAKE ONE TABLET BY MOUTH ONCE DAILY IN THE MORNING, Disp: , Rfl: meclizine (Antivert) 25 mg tablet, TAKE 1 TABLET BY MOUTH FOUR TIMES DAILY NEEDED For Dizziness, Disp: , Rfl: melatonin 10 mg tablet, Take 10 mg by mouth in the morning., Disp: , Rfl: mirtazapine (Remeron) 7.5 mg tablet, Take 7.5 mg by mouth in the morning., Disp: , Rfl: naloxone (Narcan) 4 mg/0.1 mL nasal spray, USE VIA NASAL ROUTE DIRECTED AND NEEDED FOR 1 DAY, Disp: , Rfl: nicotine (Nicoderm CQ) 14 mg/24 hr patch, APPLY ONE PATCH TO SKIN ONCE DAILY VIA TRANSDERMAL ROUTE, Disp: , Rfl: nicotine polacrilex (Nicorette) 2 mg gum, , Disp: , Rfl: omeprazole (PriLOSEC) [address] capsule, TAKE ONE CAPSULE BY MOUTH DAILY 30 MINUTES BEFORE MORNING MEAL, Disp: , Rfl: ondansetron ODT (Zofran-ODT) 4 mg disintegrating tablet, PLACE ONE TABLET ON THE TONGUE AND ALLOW TO DISSOLVE TWICE A DAY NEEDED FOR 20 DAYS, Disp: , Rfl: prazosin (Minipress) 2 mg capsule, TAKE ONE CAPSULE BY MOUTH DAILY AT BEDTIME, Disp: , (more content not included)... [facility] 10-14-2023 Hospital Discharge instructions Patient Education 10/14/2023 13:20:32 Urethral Vaginal [...] including vitamins, herbs, eye drops, creams, and ccvi-qla-gyroeuw medicines. Any problems you or family members [...] provider tells you to take them. Taking aiek-end-lwopbpo medicines, vitamins, herbs, and supplements. Surgery safety [...] provider. Document Revised: 10/25/2020 Document Reviewed: 10/25/2020 [employer] Patient Education 2022 [employer]. Follow Up Care 10/05/2023 10:22:18 With:[facility] Address: [address] [address] Business (1) When: Unknown Comments:for procedure as scheduled [facility] 10-14-2023 Note Patient Education Obstetrics and Gynecology [...] including vitamins, herbs, eye drops, creams, and dsgm-pzf-ugytlko medicines. ? Any problems you or family [...] tells you to take them. ? Taking gzig-fpu-xnghwat medicines, vitamins, herbs, and supplements. Surgery safety [...] intended to replace (more content not included)... [facility] 08-10-2023 Evaluation + Plan note Diagnostic Tests PendingUrine Cytology ([facility]) 08/10/23 [facility] 08-10-2023 Hospital Discharge instructions Patient Education 08/10/2023 10:50:02 Steps to [...] require a prescription. You can also purchase rbpv-zah-zlahidu medicines. Medicines may have nicotine in them [...] and encouragement. Call telephone quitlines, such as 6-687-FURM-NOW, reach out to support groups, or work [...] provider. Document Revised: 03/13/2022 Document Reviewed: 03/13/2022 [employer] Patient Education 2022 [employer]. 08/10/2023 10:11:31 Cystoscopy Cystoscopy Cystoscopy is a [...] including vitamins, herbs, eye drops, creams, and hree-wod-dgkjdfj medicines. Any problems you or family members [...] provider tells you to take them. Taking vnnc-mky-rvctznn medicines, vitamins, herbs, and supplements. Tests You [...] Follow these instructions at home: Medicines Take qqie-rfo-tjhesim and prescription medicines only as told by [...] provider. Document Revised: 12/03/2021 Document Reviewed: 11/01/2020 [employer] Patient Education 2022 [employer]. Follow Up Care 04/30/2023 12:48:57 With:JES ROLLE PA-C, URL Address: [address] [place] [address]. [place] [address] [phone] When: Unknown [facility] 08-10-2023 Note Chief Complaint Jes Gomes CNP referral [facility] Staff Evaluation requested by Jes Cruz CNP due to Microscopic Hematuria & Renal Cyst. PT is a new pt. Last seen in our office by DDSharon 01/17/20 due to flank pain, hematuria, nocturia, [...] has had dark urine. Bladder/renal [place] 04/01/23 [facility] [place] No renal mass, stone or hydro. Unremarkable bladder. KUB 04/01/23 [facility] - No obvious urinary tract calculi. AMOL 08/02/23 [facility] - No renal stones or hydro. Unremarkable bladder. KUB 08/02/23 [facility] - No urinary tract calculi. Educated [...] upon conclusion of the workup. -CTU at [facility] now -Urine sample to be sent [...] Cyst of kidney, acquired) Bladder/renal US 04/01/23 [facility] - Small L renal cyst. 06/09/23 - BUN 14. Cr 0.63. GFR >60. -Simple cysts do not require follow-up Ordered: CT Urogram 5. Smoker (F17.200: Nicotine dependence, unspec (more content not included)... [facility] Comment on above: Result Comment: Elec tronically Signed By: JES ROLLE PA-C\.br\Date and Time Signed: 08/10/23 10:56 EDT\.br\Electronically Co-Signed By: Mirela Lozoya\.br\Date and Time Co-Signed: 08/10/23 10:16 EDT 04-17-2023 Note Echocardiology Procedure Exam Date/Time Accession # Ordering Echo Transthoracic 04/16/2023 14:37 EST [id number] Jose PATRICK, Ramone Butt CPT code 82518 [id number] Reason for Exam (Echo Transthoracic Complete) I25.10;CAD Coronary artery disease Report Version: 1 Study ID: [id number] [facility] [address] [place] [address] Adult Echocardiogram Report Name: ISELA CRAIG Study Date: 04/16/2023, 1: 10 PM Patient Location: [facility] : 1970 (MM/DD/YYYY) Gender: Female Age: [...] Signed by: Ramone Garcia MD Transcribed by: [facility] Technologist: GARRY [facility] 12-15-2022 Evaluation note Encounter Date Diagnosis [...] understanding and is agreeable to treatment plan [facility] Other 07-12-2023 Evaluation note* Encounter Date Diagnosis [...] - Z20.822) Oct, Bronchitis (ICD-10 - J40) [facility] Other Evaluation + Plan note Future Appointments Appointment Date:05/13/2023 03:45:00 PM Scheduled Provider:Ramone Garcia MD Location:[facility]Cardiology Clinic Appointment Type:Cardiology Follow Up (FT) Future Scheduled Tests Radiology* NM Myocardial Spect Rest/Stress 1 Day 03/22/23 * Echo Transthoracic [facility] Future Appointments Appointment Date:05/13/2023 03:45:00 PM Scheduled Provider:Ramone Garcia MD Location:[facility]Cardiology Clinic Appointment Type:Cardiology Follow Up ([facility]) [facility] Future Appointments Appointment Date:09/27/2023 09:30:00 AM Scheduled Provider: Location:[facility] Appointment Type:Urology CALL PAT FT Appointment Date:10/05/2023 09:00:00 AM Scheduled Provider: Location:[facility] Appointment Type:Urology FT Appointment Date:12/13/2023 01:00:00 PM Scheduled Provider:Roosevelt Sotelo PA-C Location:.Cardiology Clinic Appointment Type:Cardiology Follow Up (FT) Future Scheduled Tests Radiology* US Carotid Duplex Bilateral [facility]14[facility]23 [facility] Future Appointments Appointment Date:10/14/2023 12:40:00 PM Scheduled Provider:JES ROLLE PA-C Location:[facility] Appointment Type:URO Complex Office Visit Appointment Date:12/13/2023 01:00:00 PM Scheduled Provider:Roosevelt Sotelo PA-C Location:.Cardiology Clinic Appointment Type:Cardiology Follow Up (FT) Future Scheduled Tests Radiology* US Carotid Duplex Bilateral 09/14/23 [facility] Future Appointments Appointment Date:11/26/2023 09:30:00 AM Scheduled Provider: Location:[facility] Appointment Type:URO Nurse Visit Appointment Date:12/13/2023 01:00:00 PM Scheduled Provider:Roosevelt Sotelo PA-C Location:.Cardiology Clinic Appointment Type:Cardiology Follow Up (FT) Appointment Date:12/13/2023 01:45:00 PM Scheduled Provider:Alexandro PARTIDA MD Location:[facility] Appointment Type:URO Office Visit Future Scheduled Tests Radiology* US Carotid Duplex Bilateral 09/14/23 [facility] evaluation noteNo assessment information available [facility] Work Phone: History general Narrative - Reported* Type Description Date Surgical History hysterectomy Surgical History lumbar [employer] Other History of Present illness Narrative* The [...] medication regimen. She denies medication side effects. [facility] 250 DO Work Phone: Hospital course Narrative No data available for this section [facility] No data available for this section [facility] No data available for this section [facility] Assessments No Assessments Information Available Family [...] dyspnea. * Patient was recently hospitalized at [facility]. The patient was seen in Cardiology consult with subsequent cardiovascular management by [facility]. Hospitalization records have been reviewed. * Reason for Cardiology Consultation: chest pain (presented with spontaneous PTX) * Consulting Regional Manager: Dr. Lopez * Cardiovascular testing: cardiac cath [...] evaluation. * Last week she presented to [facility] due to chest pain and dizziness. [...] and fluttering . 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 Due to blood pressure and palpitations will resume prior dose of diltiazem, symptoms have been quiescent with that treatment. She is in agreement to proceed with treatment plan as outlined. Chief Complaint and Reason for Visit Chief Complaint Other chest pain Oth er chest pain;Primary hyperten Chief Complaint R23.2-pass Chief Complaint R23.2-pass G62.9 M54.50 T84.216A M47.816 Advance Directives No Advanced Directives Records Found Advance Directive Response Recorded Date/ Time Advance Directives No January 05, 2019 3:54pm Summary Purpose Additional Source Comments Care Teams (unrecognized sec tion and content) Team Status: Active Member Role Status Dates PHYSICIAN NO FAMILY Primary Care Provider Active Team Status: Inactive Member Role Status Dates PHYSICIAN NO FAMILY Primary Care Provider Active Jes Cruz , MEDICAL TYPIST-C Attending Provide r Active Team Status: Active Member Role Status Dates Jes Cruz , MEDICAL TYPIST-C Primary Care Prov ider Active Team Status: Inactive Member Role Status Dates Jes Cruz , MEDICAL TYPIST-C Primary Care Provider, Attending Provider Active Start: November 01, 2023 End: November 01, 2023 Team Status: Active Member Role Status Dates Jes worrell , MEDICAL TYPIST-C Primary Care Provider Active Start: September 10, 024 Ronaldo Ty , DO Attending Provider Active Sta rt: September 11, 2023 Team Status: Active Member Role Status Dates Jes worrell , MEDICAL TYPIST-C Primary Care Provider Active Start: October 11, 024 Ronaldo Ty , DO Attending Provider Active Sta rt: October 12, 2023 Team Status: Inactive Member Role Status Dates Jes Cruz , MEDICAL TYPIST-C Primary Care Provider, Attending Provider Active Start: December 02, 2023 End: December 02, 2023 Goals (unrecognized section and content) Goals [...] sectionGoals may be documented in an alternate sectionGoals may be documented in an alternate section INFORMATION SOURCE (unrecogn ized section and content) DATE CREATED AUTHOR 06/24/2022 [facility] DATE CREATED AUTHOR AUTHOR'S ORGANIZ ATION 07/29/2022 [facility] DATE CREATED AUTHOR AUTHOR'S ORGANIZ ATION 08/16/2022 [facility] DATE CREATED AUTHOR AUTHOR'S ORGANIZ ATION 09/19/2023 [facility] DATE CREATED AUTHOR AUTHOR'S ORGANIZ ATION 10/21/2023 [facility] DATE CREATED AUTHOR AUTHOR'S ORGANIZ ATION [facility]2023 [facility] DATE CREATED AUTHOR AUTHOR'S ORGANIZ ATION 12/22/2023 [facility] DATE CREATED AUTHOR AUTHOR'S ORGANIZ ATION 12/24/2023 [facility] REASON FOR VISIT (unrecogniz ed section [...] BE BASED ON THE PRIMARY CLINICAL RECORDS. [facility] [employer] provides no warranty or guarantee of the accuracy or completeness of information in this document.
== END 2024-01-05 08:24 | disposition home or self-care (01) ==
LOC: CT 08:23
PROVIDERS: PCP Nurse Practitioner Family; Visit Provider Nurse Practitioner Family
DX: R20.2 Paresthesia of skin (principal); T84.498A Other mechanical complication of other internal orthopedic devices, implants and grafts, initial encounter; M43.27 Fusion of spine, lumbosacral region
CPT/HCPCS: 72131

== ENCOUNTER 2024-01-12 07:38 | Outpatient (OUT) | payer OTHER, SELFPAY ==
--- NOTE | 2024-01-12 07:40 | MR_ITS ---
[facility] [place] [id number] Patient Name: MEGHANA KEY MRN: [id number] date: 1970 Sex: F Assigned Patient Location: MRI Current Patient Location: Accession/Order Number: [id number] Exam Date: 01/12/2024 07:50 Report Date: 01/13/2024 05:44 At the request of: MEGAN CEBALLOS Procedure: MR thoracic spine wo con EXAMINATION: MR thoracic spine wo con HISTORY: Mid Back Pain, Paresthesia Of Lower Extremity COMPARISON: CT thoracic spine 09/10/2023 TECHNIQUE: Axial T2; Sagittal T1, T2, and Stir sequences. Images were performed without contrast. FINDINGS: CORD: Normal caliber, contour, and signal intensity. BONES: No fracture, pars defect, or osseous lesion. DISCS: No significant disc/facet abnormality, spinal stenosis, or foraminal stenosis. PARASPINAL AREA: No visible mass. OTHER: Moderate narrowing of the right T2-T3 neural foramen appears to be due to synovial thickening and mild bone hypertrophy of the right facet joint. MR/MR thoracic spine wo con IMPRESSION: 1. Suspect moderate narrowing of the right T2-T3 neural foramen secondary to synovial thickening and bone hypertrophy the right facet joint. Electronically authenticated by: MASOOD COOK Date: 01/13/2024 05:44
--- OUTSIDE RECORDS SUMMARY | 2024-01-12 07:41 | XMS_ITS | CCD ---
Author Organization [facility] Care Team Providers Care Product Manager E [employer] Name Role Phone None, No PCP Unavailable [...] Javier Unavailable JES CRUZ Primary Care Physician CUATE KELLY Attending Unavailable JES CRUZ Primary Care Unavailab CUATE Olson Attending Unavailable CUATE KELLY Referring Unavailable JES CRUZ Primary Care Unavailab Jacquelyn Azul Primary Care Physician JES ROLLE Attending Unavailable LEIGHANN Cruz Primary Care Provider LEIGHANN Cruz Attending Pr ovider NO FAMILY, PHYSICIAN Primary Care Unavailable Anthony, Jes Kaur Attending U navailable Cruz, Jes [...] Kaur Primary Care U navailable OVITT, CHLOE Referring Unavailable CHLOE CEBALLOS Attending Unavailable Alexandro PARTIDA Admitting Unavailable Alexandro PARTIDA Attending Unavailable Alexandro PARTIDA Referring Unavailable Ramone Garcia Admitting Unavaila Ramone Hart Consulting Unavaila Ramone Hart Attending Unavaila Ramone Hart Referring Unavaila Ramone Hart Consulting Unavaila Ramone Hart Consulting Unavaila Roosevelt Mcdermott Admitting Unavailable Roosevelt Sotelo Attending Unavailable Roosevelt Sotelo Referring Unavailable JES ROLLE Admitting Unavailable JES ROLLE Attending Unavailable NONE, XXXX Referring Unavailable Roosevelt Sotelo Attending Unavailable Alexandro PARTIDA Attending Unavailable Alexandro PARTIDA Attending Unavailable Alexandro PARTIDA Attending Unavailable JES ROLLE Attending Unavailable JES ROLLE Attending Unavailable JES CRUZ Referring Unavailab le Ramone Garcia Admitting Unavaila Ramone Hart Attending Unavaila JES Ramesh Referring Unavailab le Unavailable Unavailable Unavailable Allergies Allergy Classification Reported Allergen(s) Allergy Type Date of Onset Reaction(s) Facility Opioid Agonists (1 source) Codeine; Translations: [codeine] Drug Allergy Eruption of skin present [facility] (20 sources) Codeine; Translations: [codeine] Drug Allergy 09-03-2012 hives, Eruption of skin present [facility] Medications Current Medications Medication [...] Daily, # 30 tab(s), Refills(s) 3, Pharmacy: [facility], 164, cm, 03/22/23 13:24:00 EST, Height/Length [...] qAM, # 30 tab(s), Refills(s) 3, Pharmacy: [facility], 164, cm, 03/22/23 13:24:00 EST, Height/Length [...] 30 Refills: 1 Ordered: 02-Jun-2021 Migel Peter METAPHYSICIAN-RETAIL SOLAR ADVISORNadia Start : 02-Jun-2021 Active Start: 01-09-2019 End: [...] Drug Class(es) Dates Sig (Normalized) Sig (Original) [id number] 200 actuat albuterol 0.09 mg/actuat metered dose [...] procedure, # 2 tab(s), Refills(s) 0, Pharmacy: [facility], 164, cm, 08/10/23 9:37:00 EDT, Height/Length [...] Active Start: 06-02-2021 take 1 capsule by [facility] once daily dilTIAZem HCl ER Coated Beads 120 MG Oral Capsule Extended Release 24 Hour TAKE 1 CAPSULE ONCE DAILY. Quantity: 30 Refills: 3 Ordered: 02-Jun-2021 Migel Peter WELLINGTONBethMAKENZIENadia Start : 02-Jun-2021 Active esomeprazole 40 mg delayed release oral capsule (4 sources) Proton Pump Inhibitor Start: 06-24-2022 take 1 capsule by mouth once daily Esomeprazole Magnesium 40 MG Oral Capsule Delayed Release Take one capsule daily Quantity: 30 Refills: 0 Ordered: 13-Aug-2022 Migel Peter WELLINGTONBethMAKENZIENadia Start : 24-Jun-2022 Active lisinopril 10 mg [...] sources) Coronary atherosclerosis; Translations: [Coronary atherosclerosis of [place] coronary artery] 04-03-2021 Chronic Disorders of lipid [...] 06-09-2023 Episodic Other aftercare (1 source) Other terminologist (current) drug therapy; Translations: [Other mcfp (current) drug therapy] Onset: 06-09-2023 Episodic Unclassified (1 source) Contact with and (suspected) exposure to covid-19 Z20.822 Unclassified (7 sources) Bipolar (qualifier value) 03-18-2023 Results Test Name Value Interpretation Reference Range Facility 36on 01-06-2024 36 LVM for pt to notify. Normal [facility] Orders Onlyon 01-06-2024 Orders Only [id number] Booker Craig 1970 F Date Provider Department Center 01/06/2024 CHLOE TOMLIN [facility] SURG Second Fl Family History Problem Relation Age of Onset Coronary artery disease Mother Hypertension Mother Other Father Hypertension Father Other Daughter Comments: 05/2023 drug overdose Family Status - Relation Status Age at Mother Father Daughter Normal [facility] 36on 01-05-2024 36 Pt called back stati ng that she had taken the medication prior to her original MRI that was scheduled. Per pt, [facility] had a scheduling mix up. Pt was rescheduled for today. Pt states that she was going to try to do MRI without medication, but could not. Pt did say she had her CT done. [facility] Orders Onlyon 01-05-2024 Orders Only [id number] Booker Craig 1970 F Date Provider Department Center 01/05/2024 CHLOE TOMLIN [facility] SURG Second Fl Family History Problem Relation Age of Onset Coronary artery disease Mother Hypertension Mother Other Father Hypertension Father Other Daughter Comments: 05/2023 drug overdose Family Status - Relation Status Age at Mother Father Daughter [facility] 36on 12-22-2023 36 Pt called and LVM requesting CT and MRI orders be faxed to [facility]. Pt has existing CT and MRI scheduled here at [facility]. I called and LVM with pt to notify of orders faxed to [facility], that she will need to bring disc of imaging to her follow up visit with Chloe Ceballos CNP and to call [facility] radiology to cancel appointments. Follow up visit date and time and radiology scheduling number provided in VM. [facility] Consulton 12-14-2023 Consult [id number] RafaBooker Butts 1970 F Date Provider Department Center 12/14/2023 CHLOE TOMLIN [facility] SURG Second Fl Family History Problem Relation Age of Onset Coronary artery disease Mother Hypertension Mother Other Father Hypertension Father Other Daughter Comments: 05/2023 drug overdose Family Status - Relation Status Age at Mother Father Daughter Level of Service:04918 [place] OFFICE/OUTPATIENT NEW MODERATE MDM 45 MINUTES Reason for Visit and Comments: Consult [814] - broken screw from past surgery. Pt will bring disc of Xr and MRI with her. [facility] MR lumbar spine wo con MR lumbar spine wo con [facility] Main [place] [address] [place] [address] MRI Report Signed Patient: Isela Craig MR#: [id number] : 1970 Acct:[id number] Age/Sex: 53 / F ADM Date: 12/02/23 [facility]: [facility] Room: Type: [facility] Attending Dr: Jes Cruz SENIOR INFORMATION SECURITY ARCHITECT-C Copies to: Jes Cruz Ordering Provider: Jes [...] Bjorn Rdz M.D.12/02/2023 3:22 PM Dictation Location: [place] [address] Transcribed By: [facility] 12/02/23 1522 Dictated By: Bjorn Rdz II, MD 12/02/23 1512 Signed By: 12/02/23 1522 Normal [facility] Alanine aminotransferase [En zymatic activity/volume] in Serum or PlasmaOrdered By: Jes Cruz on 11-01-2023 ALT [Catalytic activity/Vol] 17 U/L Normal 7-52 [facility] Comment on above: Order Comment: Reaso n for Exam Primary hypertension Reason for Exam Low iron Reason for Exam Primary hypertension;Hypertriglyceridemia Reason for Exam Hot flashes Reason for Exam Vitamin D deficiency Performed By: #### C BC, TSH3, [id number], CMP, SHAMA, FE and TIBC, LIPID, FSH, T3F, CUU, [id number], UA #### [facility] [address] [place] [address] [place] #### ESTRADIOL, LH #### [facility] , Albumin [Mass/volume] in Ser um or Plasma by Bromocresol green (BCG) dye binding methoOrdered By: Jes Cruz on 11-01-2023 Albumin BCG dye [Mass/Vol] 4.3 g/dL 3.5-5.7 [facility] Alkaline phosphatase [Enzyma tic activity/volume] in Serum or PlasmaOrdered By: Jes Cruz on 11-01-2023 ALP [Catalytic activity/Vol] 87 U/L Normal 34-104 [facility] Comment on above: Order Comment: Reaso n for Exam Primary hypertension Reason for Exam Low iron Reason for Exam Primary hypertension;Hypertriglyceridemia Reason for Exam Hot flashes Reason for Exam Vitamin D deficiency Performed By: #### C BC, TSH3, [id number], CMP, SHAMA, FE and TIBC, LIPID, FSH, T3F, CUU, [id number], UA #### [facility] [address] [place] [address] [place] #### ESTRADIOL, LH #### [facility] , Aspartate aminotransferase [ Enzymatic activity/volume] in Serum or PlasmaOrdered By: Jes Cruz on 11-01-2023 AST [Catalytic activity/Vol] 13 U/L Normal 13-39 [facility] Comment on above: Order Comment: Reaso n for Exam Primary hypertension Reason for Exam Low iron Reason for Exam Primary hypertension;Hypertriglyceridemia Reason for Exam Hot flashes Reason for Exam Vitamin D deficiency Performed By: #### C BC, TSH3, [id number], CMP, SHAMA, FE and TIBC, LIPID, FSH, T3F, CUU, [id number], UA #### [address] #### ESTRADIOL, LH #### [facility] , Automated basophil %Ordered By: Jes Cruz on 11-01-2023 Basophils/100 WBC (Bld) 1.1 % Normal . [facility] Comment on above: Order Comment: Reaso n for Exam Primary hypertension Performed By: #### C BC, TSH3, [id number], CMP, SHAMA, FE and TIBC, LIPID, FSH, T3F, CUU, [id number], UA #### [address] #### ESTRADIOL, LH #### [facility] , Automated basophil countOrde red By: Jes Cruz on 11-01-2023 Basophils (Bld) [#/Vol] 0.1 10*3/uL Normal 0.0-0.2 [facility] Comment on above: Order Comment: Reaso n for Exam Primary hypertension Result Comment: PERF ORMED BY: [place] [address] PATHOLOGIST CARPORT ERECTOR PALMOO WESLEY M.D. Performed By: #### C BC, TSH3, [id number], CMP, SHAMA, FE and TIBC, LIPID, FSH, T3F, CUU, [id number], UA #### [address] #### ESTRADIOL, LH #### [facility] , Automated blood monocyte cou ntOrdered By: Jes Cruz on 11-01-2023 Monocytes (Bld) [#/Vol] 0.8 10*3/uL Normal 0.0-0.8 [facility] Comment on above: Order Comment: Reaso n for Exam Primary hypertension Performed By: #### C BC, TSH3, [id number], CMP, SHAMA, FE and TIBC, LIPID, FSH, T3F, CUU, [id number], UA #### [facility] [address] [place] [address] [place] #### ESTRADIOL, LH #### [facility] , Automated eosinophil %Ordere d By: Jes Cruz on 11-01-2023 Eosinophils/100 WBC (Bld) 1.5 % Normal . [facility] Comment on above: Order Comment: Reaso n for Exam Primary hypertension Performed By: #### C BC, TSH3, [id number], CMP, SHAMA, FE and TIBC, LIPID, FSH, T3F, CUU, [id number], UA #### [address] #### ESTRADIOL, LH #### [facility] , Automated eosinophil countOr dered By: Jes Cruz on 11-01-2023 Eosinophils (Bld) [#/Vol] 0.1 10*3/uL Normal 0.0-0.45 [facility] Comment on above: Order Comment: Reaso n for Exam Primary hypertension Performed By: #### C BC, TSH3, [id number], CMP, SHAMA, FE and TIBC, LIPID, FSH, T3F, CUU, [id number], UA #### [place] [address] [place] #### ESTRADIOL, LH #### [facility] , Automated monocyte %Ordered By: Jes Cruz on 11-01-2023 Monocytes/100 WBC (Bld) 10.8 % Normal . [facility] Comment on above: Order Comment: Reaso n for Exam Primary hypertension Performed By: #### C BC, TSH3, [id number], CMP, SHAMA, FE and TIBC, LIPID, FSH, T3F, CUU, [id number], UA #### [place] [address] [place] #### ESTRADIOL, LH #### [facility] , Automated neutrophil %Ordere d By: Jes Cruz on 11-01-2023 Neutrophils/100 WBC (Bld) 58.6 % Normal . [facility] Comment on above: Order Comment: Reaso n for Exam Primary hypertension Performed By: #### C BC, TSH3, [id number], CMP, SHAMA, FE and TIBC, LIPID, FSH, T3F, CUU, [id number], UA #### [facility] [address] [place] [address] #### ESTRADIOL, LH #### [facility] , Bilirubin Test strip Ql (U)O rdered By: Jes Cruz on 11-01-2023 Bilirubin Ql (U) Negative Negative [facility] Bilirubin.total [Mass/volume ] in Serum or PlasmaOrdered By: Jes Cruz on 11-01-2023 Bilirubin [Mass/Vol] 0.4 mg/dL Normal 0.3-1.0 [facility] Comment on above: Order Comment: Reaso n for Exam Primary hypertension Reason for Exam Low iron Reason for Exam Primary hypertension;Hypertriglyceridemia Reason for Exam Hot flashes Reason for Exam Vitamin D deficiency Performed By: #### C BC, TSH3, [id number], CMP, SHAMA, FE and TIBC, LIPID, FSH, T3F, CUU, [id number], UA #### [address] #### ESTRADIOL, LH #### [facility] , Calcium [Mass/volume] in Ser um or PlasmaOrdered By: Jes Cruz on 11-01-2023 Calcium [Mass/Vol] 9.4 mg/dL Normal 8.6-10.3 [facility] Comment on above: Order Comment: Reaso n for Exam Primary hypertension Reason for Exam Low iron Reason for Exam Primary hypertension;Hypertriglyceridemia Reason for Exam Hot flashes Reason for Exam Vitamin D deficiency Performed By: #### C BC, TSH3, [id number], CMP, SHAMA, FE and TIBC, LIPID, FSH, T3F, CUU, [id number], UA #### [facility] [address] [place] [address] [place] #### ESTRADIOL, LH #### [facility] , Carbon dioxide, total [Moles /volume] in Serum or PlasmaOrdered By: Jes Cruz on 11-01-2023 CO2 [Moles/Vol] 28.5 mmol/L Normal 21.0-31.0 [facility] Comment on above: Order Comment: Reaso n for Exam Primary hypertension Reason for Exam Low iron Reason for Exam Primary hypertension;Hypertriglyceridemia Reason for Exam Hot flashes Reason for Exam Vitamin D deficiency Performed By: #### C BC, TSH3, [id number], CMP, SHAMA, FE and TIBC, LIPID, FSH, T3F, CUU, [id number], UA #### [facility] [address] [place] [address] [place] #### ESTRADIOL, LH #### [facility] , Chloride [Moles/volume] in S shanna or PlasmaOrdered By: Jes Cruz on 11-01-2023 Chloride [Moles/Vol] 105 mmol/L Normal 98-107 [facility] Comment on above: Order Comment: Reaso n for Exam Primary hypertension Reason for Exam Low iron Reason for Exam Primary hypertension;Hypertriglyceridemia Reason for Exam Hot flashes Reason for Exam Vitamin D deficiency Performed By: #### C BC, TSH3, [id number], CMP, SHAMA, FE and TIBC, LIPID, FSH, T3F, CUU, [id number], UA #### [facility] [address] [place] [address] [place] #### ESTRADIOL, LH #### [facility] , Cholesterol [Mass/volume] in Serum or PlasmaOrdered By: Jes Cruz on 11-01-2023 Cholesterol [Mass/Vol] 285 mg/dL High 140-200 [facility] Comment on above: Chol less than 200 [...] risk Performed By: #### C BC, TSH3, [id number], CMP, SHAMA, FE and TIBC, LIPID, FSH, T3F, CUU, [id number], UA #### [facility] [address] [place] [address] [place] #### ESTRADIOL, LH #### [facility] , Cholesterol in LDL Calc [Mas s/Vol]Ordered By: Jes Cruz on 11-01-2023 Cholesterol in LDL [Mass/Vol] 198 mg/dL High 0-100 [facility] Comment on above: LDL ATP III CLASSIFI CATIONLDL less than 100 mg/dL OptimalLDL 100-129 mg/dL Near or above optimalLDL 130-159 mg/dL Borderline highLDL 160-189 mg/dL HighLDL greater than 189 mg/dL Very high Cholesterol in VLDL Calc [Ma ss/Vol]Ordered By: Jes Cruz on 11-01-2023 Cholesterol in VLDL [Mass/Vol] 29 mg/dL [facility] Color of Urine by AutoOrdere d By: Jes Cruz on 11-01-2023 Color (U) Light-yellow Normal Yellow [facility] Comment on above: Order Comment: Reaso n for Exam Microscopic hematuria Name Collection Type:: Voided Performed By: #### C BC, TSH3, [id number], CMP, SHAMA, FE and TIBC, LIPID, FSH, T3F, CUU, [id number], UA #### [facility] [address] [place] [address] [place] #### ESTRADIOL, LH #### [facility] , Complete Blood Count Auto Di ffon 11-01-2023 Mean Corpuscular HGB Conc 33.6 g/dL Normal 32.0-35.0 [facility] Comment on above: Order Comment: Reaso n for Exam Primary hypertension Performed By: #### C BC, TSH3, [id number], CMP, SHAMA, FE and TIBC, LIPID, FSH, T3F, CUU, [id number], UA #### [facility] [address] [place] [address] [place] #### ESTRADIOL, LH #### [facility] , NRBC% 0.1 /100{WBC} Normal 0-0.5 [facility] Comment on above: Order Comment: Reaso n for Exam Primary hypertension Performed By: #### C BC, TSH3, [id number], CMP, SHAMA, FE and TIBC, LIPID, FSH, T3F, CUU, [id number], UA #### [place] [address] [place] #### ESTRADIOL, LH #### [facility] , Comprehensive Metabolic Pane [facility] 11-01-2023 Albumin [Mass/Vol] 4.3 g/dL Normal 3.5-5.7 [facility] Comment on above: Order Comment: Reaso n for Exam Primary hypertension Reason for Exam Low iron Reason for Exam Primary hypertension;Hypertriglyceridemia Reason for Exam Hot flashes Reason for Exam Vitamin D deficiency Performed By: #### C BC, TSH3, [id number], CMP, SHAMA, FE and TIBC, LIPID, FSH, T3F, CUU, [id number], UA #### [place] [address] [place] #### ESTRADIOL, LH #### [facility] , GFR/1.73 sq M.predicted MDRD (S/P/Bld) [Vol rate/Area] mL/min/{1.73_m2} Normal [facility] Comment on above: Order Comment: Reaso n for Exam Primary hypertension Reason for Exam Low iron Reason for Exam Primary hypertension;Hypertriglyceridemia Reason for Exam Hot flashes Reason for Exam Vitamin D deficiency Performed By: #### C BC, TSH3, [id number], CMP, SHAMA, FE and TIBC, LIPID, FSH, T3F, CUU, [id number], UA #### [place] [address] [place] #### ESTRADIOL, LH #### [facility] , Creatinine [Mass/volume] in Serum or PlasmaOrdered By: Jes Tamezson on 11-01-2023 Creatinine [Mass/Vol] 0.75 mg/dL Normal 0.60-1.20 [facility] Comment on above: Order Comment: Reaso n for Exam Primary hypertension Reason for Exam Low iron Reason for Exam Primary hypertension;Hypertriglyceridemia Reason for Exam Hot flashes Reason for Exam Vitamin D deficiency Performed By: #### C BC, TSH3, [id number], CMP, SHAMA, FE and TIBC, LIPID, FSH, T3F, CUU, [id number], UA #### [facility] [address] [place] [address] #### ESTRADIOL, LH #### [facility] , Erythrocyte distribution wid th [Ratio] by Automated countOrdered By: Jes Cruz on 11-01-2023 Erythrocyte distribution width (RBC) [Ratio] 13.1 % Normal 11.9-15.3 [facility] Comment on above: Order Comment: Reaso n for Exam Primary hypertension Performed By: #### C BC, TSH3, [id number], CMP, SHAMA, FE and TIBC, LIPID, FSH, T3F, CUU, [id number], UA #### [facility] [address] [place] [address] #### ESTRADIOL, LH #### [facility] , Erythrocytes [#/volume] in B lood by Automated countOrdered By: Jes Cruz on 11-01-2023 RBC (Bld) [#/Vol] 4.13 10*6/uL Normal 3.60-5.00 [facility] Comment on above: Order Comment: Reaso n for Exam Primary hypertension Performed By: #### C BC, TSH3, [id number], CMP, SHAMA, FE and TIBC, LIPID, FSH, T3F, CUU, [id number], UA #### [facility] [address] [place] [address] [place] #### ESTRADIOL, LH #### [facility] , Estradiolon 11-01-2023 Estradiol <5.0 Normal . [facility] Comment on above: Order Comment: Reaso n for Exam Hot flashes Result Comment: Adul t Female Range Follicular phase 12.5 - 166.0 Ovulation phase 85.8 - 498.0 Luteal phase 43.8 - 211.0 Postmenopausal <6.0 - 54.7 1st trimester 215.0 - >4300.0 Mp ECLIA methodology Performed at: - [facility] [id number] Street Commissioner: Kurtis Gallegos PhD, Phone: [phone] PERFORMED BY: [facility] [address] [place] [address] PATHOLOGIST CARPORT ERECTOR PALOMO WESLEY M.D. Performed By: #### C BC, TSH3, [id number], CMP, SHAMA, FE and TIBC, LIPID, FSH, T3F, CUU, [id number], UA ####[facility] [address]#### ESTRADIOL, LH ####[facility] , Ferritin [Mass/volume] in Se rum or PlasmaOrdered By: Jes Cruz on 11-01-2023 Ferritin [Mass/Vol] 42.8 ng/mL Normal 11.0-306.8 [facility] Comment on above: Order Comment: Reaso n for Exam Primary hypertension Reason for Exam Low iron Reason for Exam Primary hypertension;Hypertriglyceridemia Reason for Exam Hot flashes Reason for Exam Vitamin D deficiency Performed By: #### C BC, TSH3, [id number], CMP, SHAMA, FE and TIBC, LIPID, FSH, T3F, CUU, [id number], UA #### [facility] [address] [place] [address] [place] #### ESTRADIOL, LH #### [facility] , Folate [Mass/volume] in Seru m or PlasmaOrdered By: Jes Cruz on 11-01-2023 Folate [Mass/Vol] 10.3 ng/mL >5.9 [facility] Comment on above: Folate reference ran ge: >5.9 ng/mlThe WHO technical consultation on folate and vitamin [id number] has determined that folate concentrations lessthan 4 ng/ml are considered deficient. Follicle Stimulating Hormone on 11-01-2023 Follicle Stimulating Hormone 32.3 m[iU]/mL Normal [facility] Comment on above: [...] mIU/mL Performed By: #### C BC, TSH3, [id number], CMP, SHAMA, FE and TIBC, LIPID, FSH, T3F, CUU, [id number], UA ####[facility] [id number] [place] [address] [facility]#### ESTRADIOL, LH ####[facility] , Follitropin [Units/volume] i n Serum or PlasmaOrdered By: Jes Cruz on 11-01-2023 Follitropin Qn 32.3 m[IU]/mL [facility] Comment on above: FEMALE NORMALS (KEVEN ENOPAUSE) MID-FOLLICULAR PHASE: 3.9-8.8 mIU/mL MID-CYCLE PEAK: 4.5-22.5 mIU/mL MID-LUTEAL PHASE: 1.8-5.1 mIU/mLFEMALE NORMALS (POSTMENOPAUSE): 16.7-113.6 mIU/mLMALE NORMALS: 1.3-19.3 mIU/mL Glucose [Mass/volume] in Ser um or PlasmaOrdered By: Jes Cruz on 11-01-2023 Glucose [Mass/Vol] 95 mg/dL Normal 70-100 [facility] Comment on above: ADA recommended refe [...] for Exam Vitamin D deficiency Result Comment: [facility] Glucose Reference Range is dependent on time and content of last meal. Glucose of more than 200 mg/dL in a nonstressed, ambulatory subject supports the diagnosis of Diabetes Mellitus. ADA recommended reference range Performed By: #### C BC, TSH3, [id number], CMP, SHAMA, FE and TIBC, LIPID, FSH, T3F, CUU, [id number], UA #### [facility] [address] [place] [address] #### ESTRADIOL, LH #### [facility] , Glucose [Mass/volume] in Uri ne by Test stripOrdered By: Jes Cruz on 11-01-2023 Glucose Test strip (U) [Mass/Vol] Normal mg/dL Normal [facility] Hematocrit [Volume Fraction] of Blood by Automated countOrdered By: Jes Cruz on 11-01-2023 Hematocrit (Bld) [Volume fraction] 39.6 % Normal 34.0-46.4 [facility] Comment on above: Order Comment: Shayleeo n for Exam Primary hypertension Performed By: #### C BC, TSH3, [id number], CMP, SHAMA, FE and TIBC, LIPID, FSH, T3F, CUU, [id number], UA #### [facility] [address] [place] [address] [place] #### ESTRADIOL, LH #### [facility] , Hemoglobin Test strip Ql (U) Ordered By: Jes Cruz on 11-01-2023 Hemoglobin Ql (U) Negative Negative [facility] Hemoglobin [Mass/volume] in BloodOrdered By: Jes Cruz on 11-01-2023 Hemoglobin (Bld) [Mass/Vol] 13.3 g/dL Normal 11.8-15.4 [facility] Comment on above: Order Comment: Reaso n for Exam Primary hypertension Performed By: #### C BC, TSH3, [id number], CMP, SHAMA, FE and TIBC, LIPID, FSH, T3F, CUU, [id number], UA #### [facility] [address] [place] [address] [place] #### ESTRADIOL, LH #### [facility] , Iron [Mass/volume] in Serum or PlasmaOrdered By: Jes Cruz on 11-01-2023 Iron [Mass/Vol] 106 ug/dL Normal 50-212 [facility] Comment on above: Order Comment: Reaso n for Exam Primary hypertension Reason for Exam Low iron Reason for Exam Primary hypertension;Hypertriglyceridemia Reason for Exam Hot flashes Reason for Exam Vitamin D deficiency Performed By: #### C BC, TSH3, [id number], CMP, SHAMA, FE and TIBC, LIPID, FSH, T3F, CUU, [id number], UA #### [facility] [address] [place] [address] [place] #### ESTRADIOL, LH #### [facility] , Iron and TIBC Profileon 10-04 % Iron Saturation 25.1 % Normal 20-50 [facility] Comment on above: Order Comment: Reaso n for Exam Primary hypertension Reason for Exam Low iron Reason for Exam Primary hypertension;Hypertriglyceridemia Reason for Exam Hot flashes Reason for Exam Vitamin D deficiency Performed By: #### C BC, TSH3, [id number], CMP, SHAMA, FE and TIBC, LIPID, FSH, T3F, CUU, [id number], UA #### [facility] [address] [place] [address] [place] #### ESTRADIOL, LH #### [facility] , Total Iron Binding Capacity 423 ug/dL Normal 255-450 [facility] Comment on above: Order Comment: Reaso n for Exam Primary hypertension Reason for Exam Low iron Reason for Exam Primary hypertension;Hypertriglyceridemia Reason for Exam Hot flashes Reason for Exam Vitamin D deficiency Performed By: #### C BC, TSH3, [id number], CMP, SHAMA, FE and TIBC, LIPID, FSH, T3F, CUU, [id number], UA #### [facility] [address] [place] [address] [place] #### ESTRADIOL, LH #### [facility] , Iron binding capacity [Mass/ volume] in Serum or PlasmaOrdered By: Jes Cruz on 11-01-2023 Iron binding capacity [Mass/Vol] 423 ug/dL 255-450 [facility] Iron saturation [Mass Fracti on] in Serum or PlasmaOrdered By: Jes Cruz on 11-01-2023 Iron saturation [Mass fraction] 25.1 % 20-50 [facility] Ketones [Presence] in Urine by Test stripOrdered By: Jes Cruz on 11-01-2023 Ketones Ql (U) Negative Normal Negative [facility] Comment on above: Order Comment: Reaso n for Exam Microscopic hematuria Name Collection Type:: Voided Performed By: #### C BC, TSH3, [id number], CMP, SHAMA, FE and TIBC, LIPID, FSH, T3F, CUU, [id number], UA #### [facility] [address] [place] [address] [place] #### ESTRADIOL, LH #### [facility] , Leukocyte esterase [Presence ] in Urine by Test stripOrdered By: Jes Cruz on 11-01-2023 Leukocyte esterase Test strip Ql (U) Negative Normal Negative [facility] Comment on above: Order Comment: Reaso n for Exam Microscopic hematuria Name Collection Type:: Voided Performed By: #### C BC, TSH3, [id number], CMP, SHAMA, FE and TIBC, LIPID, FSH, T3F, CUU, [id number], UA #### [facility] [address] [place] [address] [place] #### ESTRADIOL, LH #### [facility] , Leukocytes [#/volume] correc ricardo for nucleated erythrocytes in Blood by Automated counOrdered By: Jes Cruz on 11-01-2023 WBC corrected for nucl RBC Auto (Bld) [#/Vol] 7.3 10*3/uL 3.8-11.6 [facility] Leukocytes [#/volume] in Blo od by Automated countOrdered By: Jes Cruz on 11-01-2023 WBC (Bld) [#/Vol] 7.3 10*3/uL Normal 3.8-11.6 [facility] Comment on above: Order Comment: Reaso n for Exam Primary hypertension Performed By: #### C BC, TSH3, [id number], CMP, SHAMA, FE and TIBC, LIPID, FSH, T3F, CUU, [id number], UA #### [facility] [address] [place] [address] [place] #### ESTRADIOL, LH #### [facility] , Lipid Panelon 11-01-2023 LDL Cholesterol,Calculated 198 mg/dL High 0-100 [facility] Comment on above: Order Comment: [...] high Performed By: #### C BC, TSH3, [id number], CMP, SHAMA, FE and TIBC, LIPID, FSH, T3F, CUU, [id number], UA #### [facility] [address] [place] [address] [place] #### ESTRADIOL, LH #### [facility] , Triglyceride w/Reflex 145 mg/dL Normal 0-149 [facility] Comment on above: [...] method. Performed By: #### C BC, TSH3, [id number], CMP, SHAMA, FE and TIBC, LIPID, FSH, T3F, CUU, [id number], UA #### [facility] [address] #### ESTRADIOL, LH #### [facility] , VLDL CHOLESTEROL 29 mg/dL Normal [facility] Comment on above: Order Comment: Reaso n for Exam Primary hypertension Reason for Exam Low iron Reason for Exam Primary hypertension;Hypertriglyceridemia Reason for Exam Hot flashes Reason for Exam Vitamin D deficiency Performed By: #### C BC, TSH3, [id number], CMP, SHAMA, FE and TIBC, LIPID, FSH, T3F, CUU, [id number], UA #### [facility] [address] #### ESTRADIOL, LH #### [facility] , Luteinizing Hormoneon 2023 Luteinizing Hormone 20.7 m[iU]/mL Normal . Th e [facility] Comment on above: Order Comment: Reaso n for Exam Hot flashes Result Comment: Adul t Female Range Follicular phase 2.4 - 12.6 Ovulation phase 14.0 - 95.6 Luteal phase 1.0 - 11.4 Postmenopausal 7.7 - 58.5 Performed By: #### C BC, TSH3, [id number], CMP, SHAMA, FE and TIBC, LIPID, FSH, T3F, CUU, [id number], UA ####[facility] [address]#### ESTRADIOL, LH ####[facility] , Lymphocytes [#/volume] in Bl ood by Automated countOrdered By: Jes Cruz on 11-01-2023 Lymphocytes (Bld) [#/Vol] 2.0 10*3/uL Normal 1.00-4.8 [facility] Comment on above: Order Comment: Reaso n for Exam Primary hypertension Performed By: #### C BC, TSH3, [id number], CMP, SHAMA, FE and TIBC, LIPID, FSH, T3F, CUU, [id number], UA #### [facility] [address] [place] [address] [place] #### ESTRADIOL, LH #### [facility] , Lymphocytes/100 leukocytes i n Blood by Automated countOrdered By: Jes Cruz on 11-01-2023 Lymphocytes/100 WBC (Bld) 28.0 % Normal . [facility] Comment on above: Order Comment: Reaso n for Exam Primary hypertension Performed By: #### C BC, TSH3, [id number], CMP, SHAMA, FE and TIBC, LIPID, FSH, T3F, CUU, [id number], UA #### [facility] [address] [place] [address] [place] #### ESTRADIOL, LH #### [facility] , MCH [Entitic mass] by Automa ricardo countOrdered By: Jes Cruz on 11-01-2023 MCH (RBC) [Entitic mass] 32.3 pg Normal 24.7-34.3 [facility] Comment on above: Order Comment: Reaso n for Exam Primary hypertension Performed By: #### C BC, TSH3, [id number], CMP, SHAMA, FE and TIBC, LIPID, FSH, T3F, CUU, [id number], UA #### [address] #### ESTRADIOL, LH #### [facility] , MCHC Auto (RBC) [Mass/Vol]Or dered By: Jes Cruz on 11-01-2023 MCHC (RBC) [Mass/Vol] 33.6 g/dL 32.0-35.0 [facility] MCV [Entitic volume] by Auto mated countOrdered By: Jes Cruz on 11-01-2023 MCV (RBC) [Entitic vol] 96.0 fL Normal 80-100 [facility] Comment on above: Order Comment: Reaso n for Exam Primary hypertension Performed By: #### C BC, TSH3, [id number], CMP, SHAMA, FE and TIBC, LIPID, FSH, T3F, CUU, [id number], UA #### [facility] [address] [place] [address] [place] #### ESTRADIOL, LH #### [facility] , Neutrophils [#/volume] in Bl ood by Automated countOrdered By: Jes Cruz on 11-01-2023 Neutrophils (Bld) [#/Vol] 4.3 10*3/uL Normal 1.8-7.7 [facility] Comment on above: Order Comment: Reaso n for Exam Primary hypertension Performed By: #### C BC, TSH3, [id number], CMP, SHAMA, FE and TIBC, LIPID, FSH, T3F, CUU, [id number], UA #### [facility] [address] [place] [address] [place] #### ESTRADIOL, LH #### [facility] , Nitrite Test strip Ql (U)Ord ered By: Jes Cruz on 11-01-2023 Nitrite Ql (U) Negative Negative [facility] No Panel InformationOrdered By: Jes Cruz on 11-01-2023 Estimated GFR (CKD-EPI) > 60.0 mL/Min [facility] Creatinine Clearance (Chem N/A [facility] Nucleated erythrocytes [Pres ence] in Blood by Automated countOrdered By: Jes Cruz on 11-01-2023 Nucleated RBC Auto Ql (Bld) 0.1 /100{WBC} 0-0.5 [facility] Platelet mean volume [Entiti c volume] in Blood by Automated countOrdered By: Jes Cruz on 11-01-2023 Platelet mean volume (Bld) [Entitic vol] 8.3 fL Normal 6.3-10.7 [facility] Comment on above: Order Comment: Reaso n for Exam Primary hypertension Performed By: #### C BC, TSH3, [id number], CMP, SHAMA, FE and TIBC, LIPID, FSH, T3F, CUU, [id number], UA #### [facility] [address] [place] [address] [place] #### ESTRADIOL, LH #### [facility] , Platelets [#/volume] in Bloo d by Automated countOrdered By: Jes Cruz on 11-01-2023 Platelets (Bld) [#/Vol] 384 10*3/uL Normal 150-450 [facility] Comment on above: Order Comment: Reaso n for Exam Primary hypertension Performed By: #### C BC, TSH3, [id number], CMP, SHAMA, FE and TIBC, LIPID, FSH, T3F, CUU, [id number], UA #### [facility] [address] [place] [address] [place] #### ESTRADIOL, LH #### [facility] , Potassium [Moles/volume] in Serum or PlasmaOrdered By: Jes Cruz on 11-01-2023 Potassium [Moles/Vol] 4.3 mmol/L Normal 3.5-5.1 [facility] Comment on above: Order Comment: Reaso n for Exam Primary hypertension Reason for Exam Low iron Reason for Exam Primary hypertension;Hypertriglyceridemia Reason for Exam Hot flashes Reason for Exam Vitamin D deficiency Performed By: #### C BC, TSH3, [id number], CMP, SHAMA, FE and TIBC, LIPID, FSH, T3F, CUU, [id number], UA #### [facility] [address] [place] [address] [place] #### ESTRADIOL, LH #### [facility] , Protein Test strip (U) [Mass /Vol]Ordered By: Jes Cruz on 11-01-2023 Protein (U) [Mass/Vol] Negative Negative [facility] Protein [Mass/volume] in Ser um or PlasmaOrdered By: Jes Cruz on 11-01-2023 Protein [Mass/Vol] 6.9 g/dL Normal 6.4-8.9 [facility] Comment on above: Order Comment: Reaso n for Exam Primary hypertension Reason for Exam Low iron Reason for Exam Primary hypertension;Hypertriglyceridemia Reason for Exam Hot flashes Reason for Exam Vitamin D deficiency Performed By: #### C BC, TSH3, [id number], CMP, SHAMA, FE and TIBC, LIPID, FSH, T3F, CUU, [id number], UA #### [facility] [address] [place] [address] [place] #### ESTRADIOL, LH #### [facility] , Serum globulin measurement b y calculation (mass/volume)Ordered By: Jes Cruz on 11-01-2023 Globulin (S) [Mass/Vol] 2.6 g/dL [facility] Comment on above: Order Comment: Reaso n for Exam Primary hypertension Reason for Exam Low iron Reason for Exam Primary hypertension;Hypertriglyceridemia Reason for Exam Hot flashes Reason for Exam Vitamin D deficiency Performed By: #### C BC, TSH3, [id number], CMP, SHAMA, FE and TIBC, LIPID, FSH, T3F, CUU, [id number], UA #### [facility] [address] [place] [address] #### ESTRADIOL, LH #### [facility] , Serum or plasma albumin/glob ulin mass ratioOrdered By: Jes Cruz on 11-01-2023 Albumin/Globulin [Mass ratio] 1.7 {ratio} [facility] Comment on above: Order Comment: Reaso n for Exam Primary hypertension Reason for Exam Low iron Reason for Exam Primary hypertension;Hypertriglyceridemia Reason for Exam Hot flashes Reason for Exam Vitamin D deficiency Performed By: #### C BC, TSH3, [id number], CMP, SHAMA, FE and TIBC, LIPID, FSH, T3F, CUU, [id number], UA #### [facility] [address] [place] [address] [place] #### ESTRADIOL, LH #### [facility] , Serum or plasma anion gap de terminationOrdered By: Jes Cruz on 11-01-2023 Anion gap [Moles/Vol] 10.8 mmol/L Normal 6.0-15.0 [facility] Comment on above: Order Comment: Reaso n for Exam Primary hypertension Reason for Exam Low iron Reason for Exam Primary hypertension;Hypertriglyceridemia Reason for Exam Hot flashes Reason for Exam Vitamin D deficiency Performed By: #### C BC, TSH3, [id number], CMP, SHAMA, FE and TIBC, LIPID, FSH, T3F, CUU, [id number], UA #### [facility] [address] [place] [address] [place] #### ESTRADIOL, LH #### [facility] , Serum or plasma estradiol (E 2) measurement (mass/volume)Ordered By: Jes Cruz on 11-01-2023 E2 [Mass/Vol] pg/mL . [facility] Comment on above: Adult Female Range F ollicular phase 12.5 - 166.0 Ovulation phase 85.8 - 498.0 Luteal phase 43.8 - 211.0 Postmenopausal <6.0 - 54.7 1st trimester 215.0 - >4300.0Roche ECLIA methodologyPerformed at: [facility] [address] Director: Kurtis Gallegos PhD, Phone: [phone] Serum or plasma high density lipoprotein (HDL) cholesterol measurementOrdered By: Jes Cruz on 11-01-2023 Cholesterol in HDL [Mass/Vol] 58 mg/dL Normal 23-92 [facility] Comment on above: HDL [...] HIGH Performed By: #### C BC, TSH3, [id number], CMP, SHAMA, FE and TIBC, LIPID, FSH, T3F, CUU, [id number], UA #### [facility] [address] [place] [address] [place] #### ESTRADIOL, LH #### [facility] , Serum or plasma lutropin paramjit surement (units/volume)Ordered By: Jes Cruz on 11-01-2023 Lutropin Qn 20.7 m[IU]/mL . [facility] Comment on above: Adult Female Range F ollicular phase 2.4 - 12.6 Ovulation phase 14.0 - 95.6 Luteal phase 1.0 - 11.4 Postmenopausal 7.7 - 58.5 Serum or plasma total choles terol/high density lipoprotein (HDL) cholesterol mass ratOrdered By: Jes Cruz on 11-01-2023 Cholesterol.total/Chol esterol in HDL [Mass ratio] 4.9 {ratio} Normal <5.0 [facility] Comment on above: Order Comment: Reaso n for Exam Primary hypertension Reason for Exam Low iron Reason for Exam Primary hypertension;Hypertriglyceridemia Reason for Exam Hot flashes Reason for Exam Vitamin D deficiency Performed By: #### C BC, TSH3, [id number], CMP, SHAMA, FE and TIBC, LIPID, FSH, T3F, CUU, [id number], UA #### [facility] [address] [place] [address] [place] #### ESTRADIOL, LH #### [facility] , Sodium [Moles/volume] in Ser um or PlasmaOrdered By: Jes Cruz on 11-01-2023 Sodium [Moles/Vol] 140 mmol/L Normal 136-145 [facility] Comment on above: Order Comment: Reaso n for Exam Primary hypertension Reason for Exam Low iron Reason for Exam Primary hypertension;Hypertriglyceridemia Reason for Exam Hot flashes Reason for Exam Vitamin D deficiency Performed By: #### C BC, TSH3, [id number], CMP, SHAMA, FE and TIBC, LIPID, FSH, T3F, CUU, [id number], UA #### [facility] [address] [place] [address] [place] #### ESTRADIOL, LH #### [facility] , Specific gravity Test strip (U) [Rel density]Ordered By: Jes Cruz on 11-01-2023 Specific gravity (U) [Rel density] 1.014 1.001-1.030 [facility] Thyrotropin [Units/volume] i n Serum or PlasmaOrdered By: Jes Cruz on 11-01-2023 TSH Qn 1.49 m[IU]/L Normal 0.45-5.33 [facility] Comment on above: Order Comment: Reaso n for Exam Primary hypertension Reason for Exam Low iron Reason for Exam Primary hypertension;Hypertriglyceridemia Reason for Exam Hot flashes Reason for Exam Vitamin D deficiency Performed By: #### C BC, TSH3, [id number], CMP, SHAMA, FE and TIBC, LIPID, FSH, T3F, CUU, [id number], UA ####[facility] [address]#### ESTRADIOL, LH ####[facility] , Transferrin [Mass/volume] in Serum or PlasmaOrdered By: Jes Cruz on 11-01-2023 Transferrin [Mass/Vol] 302 mg/dL Normal 203-362 [facility] Comment on above: Order Comment: Reaso n for Exam Primary hypertension Reason for Exam Low iron Reason for Exam Primary hypertension;Hypertriglyceridemia Reason for Exam Hot flashes Reason for Exam Vitamin D deficiency Performed By: #### C BC, TSH3, [id number], CMP, SHAMA, FE and TIBC, LIPID, FSH, T3F, CUU, [id number], UA #### [facility] [address] [place] [address] [place] #### ESTRADIOL, LH #### [facility] , Triglyceride [Mass/volume] i n Serum or PlasmaOrdered By: Jes Cruz on 11-01-2023 Triglyceride [Mass/Vol] 145 mg/dL 0-149 [facility] Comment on above: TRIG ATP III CLASSIF ICATIONTRIG less than 150 mg/dL NormalTRIG 150-199 mg/dL Borderline highTRIG 200-500 mg/dL High TRIG greater than 500 mg/dL Very highStandard traceable to the Center for Disease Conrtrol and Prevention (CDC) test method. Triiodothyronine (T3) Freeon 11-01-2023 Triiodothyronine (T3) Free 2.86 pg/mL Normal 2.50-3.90 [facility] Comment on above: Order Comment: Reaso n for Exam Hot flashes Result Comment: PERF ORMED BY: [place] [address] PATHOLOGIST [employer] PALOMO WESLEY M.D. Performed By: #### C BC, TSH3, [id number], CMP, SHAMA, FE and TIBC, LIPID, FSH, T3F, CUU, [id number], UA #### [place] [address] [place] #### ESTRADIOL, LH #### [facility] , Triiodothyronine (T3) Free [ Mass/volume] in Serum or PlasmaOrdered By: Jes Cruz on 11-01-2023 Free T3 [Mass/Vol] 2.86 pg/mL 2.50-3.90 [facility] Urea nitrogen [Mass/volume] in Serum or PlasmaOrdered By: Jes Cruz on 11-01-2023 Urea nitrogen [Mass/Vol] 17 mg/dL Normal 7-25 [facility] Comment on above: Order Comment: Reaso n for Exam Primary hypertension Reason for Exam Low iron Reason for Exam Primary hypertension;Hypertriglyceridemia Reason for Exam Hot flashes Reason for Exam Vitamin D deficiency Performed By: #### C BC, TSH3, [id number], CMP, SHAMA, FE and TIBC, LIPID, FSH, T3F, CUU, [id number], UA #### [address] #### ESTRADIOL, LH #### [facility] , Urinalysison 11-01-2023 Bilirubin,Urine Negative Normal Negative [facility] Comment on above: Order Comment: Reaso n for Exam Microscopic hematuria Name Collection Type:: Voided Performed By: #### C BC, TSH3, [id number], CMP, SHAMA, FE and TIBC, LIPID, FSH, T3F, CUU, [id number], UA #### [place] [address] [place] #### ESTRADIOL, LH #### [facility] , Glucose Ql (U) Normal Normal Normal [facility] Comment on above: Order Comment: Reaso n for Exam Microscopic hematuria Name Collection Type:: Voided Performed By: #### C BC, TSH3, [id number], CMP, SHAMA, FE and TIBC, LIPID, FSH, T3F, CUU, [id number], UA #### [address] #### ESTRADIOL, LH #### [facility] , Nitrite,Urine Negative Normal Negative [facility] Comment on above: Order Comment: Reaso n for Exam Microscopic hematuria Name Collection Type:: Voided Performed By: #### C BC, TSH3, [id number], CMP, SHAMA, FE and TIBC, LIPID, FSH, T3F, CUU, [id number], UA #### [address] #### ESTRADIOL, LH #### [facility] , Occult Blood,Urine Negative Normal Negative [facility] Comment on above: Order Comment: Reaso n for Exam Microscopic hematuria Name Collection Type:: Voided Result Comment: PERF ORMED BY: [place] [address] PATHOLOGIST [employer] PALOMO WESLEY M.D. Performed By: #### C BC, TSH3, [id number], CMP, SHAMA, FE and TIBC, LIPID, FSH, T3F, CUU, [id number], UA #### [place] [address] [place] #### ESTRADIOL, LH #### [facility] , Protein,Urine Negative Normal Negative [facility] Comment on above: Order Comment: Reaso n for Exam Microscopic hematuria Name Collection Type:: Voided Performed By: #### C BC, TSH3, [id number], CMP, SHAMA, FE and TIBC, LIPID, FSH, T3F, CUU, [id number], UA #### [place] [address] [place] #### ESTRADIOL, LH #### [facility] , Specificy Pearce,Urine 1.014 Normal 1.001-1.030 [facility] Comment on above: Order Comment: Reaso n for Exam Microscopic hematuria Name Collection Type:: Voided Performed By: #### C BC, TSH3, [id number], CMP, SHAMA, FE and TIBC, LIPID, FSH, T3F, CUU, [id number], UA #### [facility] [address] [place] [address] [place] #### ESTRADIOL, LH #### [facility] , Urobilinogen,Urine Normal Normal Normal [facility] Comment on above: Order Comment: Reaso n for Exam Microscopic hematuria Name Collection Type:: Voided Performed By: #### C BC, TSH3, [id number], CMP, SHAMA, FE and TIBC, LIPID, FSH, T3F, CUU, [id number], UA #### [address] #### ESTRADIOL, LH #### [facility] , Urine Cultureon 11-01-2023 Bacteria identified Cx Nom (U) Reason for Exam Microscopic hematuria Urine Reason for Exam: Microscopic hematuria : Urine <9,000 colonies/ml mixed bacterial skin contaminants 2 Days PERFORMED BY: [place] [address] PATHOLOGIST [employer] PALOMO WESLEY M.D. Normal [facility] Comment on above: Performed By: #### C BC, TSH3, [id number], CMP, SHAMA, FE and TIBC, LIPID, FSH, T3F, CUU, [id number], UA ####[facility] [place] [address] [place]#### ESTRADIOL, LH ####[facility] , Urine appearanceOrdered By: Jes Cruz on 11-01-2023 Appearance (U) Clear Normal Clear [facility] Comment on above: Order Comment: Reaso n for Exam Microscopic hematuria Name Collection Type:: Voided Performed By: #### C BC, TSH3, [id number], CMP, SHAMA, FE and TIBC, LIPID, FSH, T3F, CUU, [id number], UA #### [facility] [address] #### ESTRADIOL, LH #### [facility] , Urine culture routineOrdered By: Jes Cruz on 11-01-2023 Bacteria identified Cx Nom (U) 2 Days [facility] Urobilinogen Test strip (U) [Mass/Vol]Ordered By: Jes Cruz on 11-01-2023 Urobilinogen (U) [Mass/Vol] Normal mg/dL Normal [facility] Vit. B12/Folate Profileon Folate 10.3 ng/mL Normal >5.9 [facility] Comment on above: [...] deficient. Performed By: #### C BC, TSH3, [id number], CMP, SHAMA, FE and TIBC, LIPID, FSH, T3F, CUU, [id number], UA ####[facility] [place] [address] [place]#### ESTRADIOL, LH ####[facility] , Vitamin B12 ser/plasOrdered By: Jes Cruz on 11-01-2023 Cobalamin (Vitamin B12) [Mass/Vol] 208 pg/mL Normal 180-914 [facility] Comment on above: Order Comment: Reaso n for Exam Primary hypertension Reason for Exam Low iron Reason for Exam Primary hypertension;Hypertriglyceridemia Reason for Exam Hot flashes Reason for Exam Vitamin D deficiency Performed By: #### C BC, TSH3, [id number], CMP, SHAMA, FE and TIBC, LIPID, FSH, T3F, CUU, [id number], UA ####[facility] [id number] [place] [address] [facility]#### ESTRADIOL, LH ####[facility] , Vitamin D 25 Hydroxy Totalon 11-01-2023 Vitamin D 25 Hydroxy Total 34.2 ng/mL Normal 30-100 [facility] Comment on above: Order Comment: Reaso n for Exam Primary hypertension Reason for Exam Low iron Reason for Exam Primary hypertension;Hypertriglyceridemia Reason for Exam Hot flashes Reason for Exam Vitamin D deficiency Result Comment: IDRIS MIN D STATUS 25(OH)VITAMIN D RANGE (ng/mL) Deficient <20 Insufficient 20 to <30 Sufficient 30 to 100 Reference: Suze Juarez, Abdiel MAXWELL, et al. Evaluation,treatment, and prevention of vitamin D deficiency; an Endocrine Society clinical practice guideline. JCEM. 2010; 96(7):1911-. PERFORMED BY: [facility] [address] [facility] [id number] PATHOLOGIST [employer] PALOMO WESLEY M.D. Performed By: #### C BC, TSH3, [id number], CMP, SHAMA, FE and TIBC, LIPID, FSH, T3F, CUU, [id number], UA ####[facility] [id number] [place] [address] [facility]#### ESTRADIOL, LH ####[facility] , Vitamin D+Metabolites [Mass/ volume] in Serum or PlasmaOrdered By: Jes Cruz on 11-01-2023 Vitamin D+Metabolites [Mass/Vol] 34.2 ng/mL 30-100 [facility] Comment on above: VITAMIN D STATUS 25( [place])VITAMIN D RANGE (ng/mL) Deficient <20 Insufficient 20 to <30Sufficient 30 to 100Reference: Suze Juarez, Abdiel MAXWELL, et al. Evaluation,treatment, and prevention of vitamin D deficiency; an Endocrine Society clinical practice guideline. JCEM. 2010; 96(7):1911-30. pH of Urine by Test stripOrd ered By: Jes Cruz on 11-01-2023 pH (U) 6.5 [pH] Normal 5.0-9.0 [facility] Comment on above: Order Comment: Reaso n for Exam Microscopic hematuria Name Collection Type:: Voided Performed By: #### C BC, TSH3, BYAV21MED, CMP, SHAMA, FE and TIBC, LIPID, FSH, T3F, CUU, [id number], UA #### [facility] [address] #### ESTRADIOL, LH #### [facility] , Ambulatory Visit Summaryon 0 10-14-2023 Ambulatory Visit Summary Ambulatory Visit Summary ISELA CRAIG :1970 Visit Date:10/14/2023 Ambulatory Visit Instructions Your Diagnosis Microscopic hematuria Your Care Team Attending Physician - JES ROLLE PA-C Primary Care Physician - JES CURZ CNP This Is Your Medications List aspirin [...] you for choosing us for your care. Hannah [facility] Provider Letteron 10-14-2023 Provider Letter Provider Letter October 14, 2023 ISELA CRAIG [address] [place] [id number] : 1970 To Whom It May Concern, Please excuse above patient from work. Date of Illness: From: 10/14/23 To: 10/14/23 May Return to Work On: Patient had an appointment on 10/14/23 with SHABNAM Bowens Restrictions: None Comments: Patient had an appointment with SHABNAM Bowens on 10/14/23 Sincerely, [facility] , option #3 Normal [facility] Urology Office/Clinic Noteon 10-14-2023 Urology Office/Clinic [...] E&M of Est. Patient Moderate 30-39 Min 09887 2. History of kidney stones (Z87.442: Personal [...] Urnls Dip Stick Auto w/o Microscopy POC 22682 Follow-up With When Contact Information [facility] [address] [place] [address] Business (1) Additional Instructions: for [...] disease: Mother. (more content not included)... Normal [facility] Comment on above: Result Comment: Elec tronically Signed By: JES ROLLE PA-C\.br\Date and Time Signed: 10/14/23 13:24 EDT Main OR Intraoperative Recor don 10-05-2023 Main OR Intraoperative Record Main OR Intraoperative Record IntraOp Document Type FTURO Summary Primary Physician: Alexandro PARTIDA MD Finalized Date/Time: 10/05/23 09:45:46 Pt. Name: ISELA CRAIG/Sex: 1970 Female Med Rec #: [id number] Physician: Alexandro PARTIDA MD Financial #: [id number] Pt. Type: O Room/Bed: / Admit/Disch: 10/05/23 [...] Kendall R Role Performed Surgeon - Primary Roll Trucker - Primary Scrub - Primary Time In [...] Procedure Yes Primary Surgeon Alexandro PARTIDA MD 10/05/23 09:30:00 Stop 10/05/23 09:34:00 Anesthesia Type [...] Position Verified Availability Equipment, Medication Time Out Alexandro PARTIDA MD, Verified (If Participants Estrella Aguirre, Applicable) Solo [...] 10/05/23 09:42 Estrella Aguirre 10/05/23 09:45 Normal [facility] Main OR Preoperative Recordo n 10-05-2023 Main OR Preoperative Record Main OR Preoperative Record Holding Area Document Type FTURO Summary Primary Physician: Alexandro PARTIDA MD Finalized Date/Time: 10/05/23 08:57:00 Pt. Name: ISELA CRAIG/Sex: 1970 Female Med Rec #: [id number] Physician: Alexandro PARTIDA MD Financial #: [id number] Pt. Type: O Room/Bed: / Admit/Disch: 10/05/23 [...] SEAN Pagan RN, Ruthann 10/05/23 08:57 Normal [facility] Operative Reporton Operative Report Operative Report [...] Kim Rolle in a month or 2.. [facility] Comment on above: Result Comment: Elec tronically Signed By: JAQUAN PATRICK, Alexandro Clark.guillermina\Date and Time Signed: 10/05/23 09:46 EDT Provider Letteron 10-05-2023 Provider Letter Provider Letter October 05, 2023 To Whom It May Concern, Please excuse above patient from work. Date of Illness: From: 10/05/2023 To: 10/05/2023 May Return On:10/05/2023 Sincerely, [facility] [address], [address] [place] [address] [facility] Insurance Correspondenceon 0 09-28-2023 Insurance Correspondence [id number]#1. [id number] [facility] Coding Summary.on 09-23-2023 Coding Summary. ZILLUhvf25TIe5nGf+PG hl YWQ+KG6XKHBsY69kqTGonE 8iW8PDTHzOMwvmOOLTXWjO BpFvbbZhIT6qrLPeNAHv IC8+XD5vFRTjUlsnnPRyj3 P7kKM4M24scj4uZIccmKV2 HRPzHjVdtnxsu5rdiMo7WM cuNmluOyBt ZPJqyD01GON6cU87Bw18iE YxbYPiu8jsdRq7BhIdKIAb NZX1bRzyWUkaa6GdNOZwB8 7ttHLol7D4 MGZpyInltFCeByXsqLB4mT 6qBSejgxnps4jqolgfVaz7 mo51bDSxl7Z2nSP4F9Nhdy H9BZSagRXq ZinfsXAUfQ8adgptp5ipov gzByIoATJpIAs2DRe5KIKy xGygAnHsUE48FMF9FUKfww YmK0BwCDJb jHhvTcT9s4M5Wg2QE2TBJz ylK5MVFCWGULixdJL+PC90 ry47P5ShVcdlNyz6YWDfDJ P3vRT1lE2c FKLcPSfjo6E0cPH2P0Kpxs Dolb4vs2acTFCeENuqL36z vLIjp7R6SZJjxZH8HBXhlZ uoObLzhF23 Oyc+DTBkbTmto6GgWxjad9 frj1xunYm9ZyvlLLNxyzYa eUcpMCA4u9RfQt9aPOWccG V8oCM6gX9e MhCcDaU2SInwY693LdThvB BsNvvwI80fT7ZpnZB+PHRy Psi9LVZxjSoeHR4zF8QtGY RpbmctbGVm dMmsEN9bXXCtlrmkSROpbW 1eLQYmL1a3HcIzHgO4QEfz U6AlJIWolbgoXn86uA2jHo UoHoC6YGjp T7AwbpK1DLWgiTRhDPktSU I0E73sh4P4CDPzBYOcYNX1 sXU7oD4abOmkfajdaRIfpD sgdmVydGlj KQqeOWrdV443WWDbiQgeGa NvZGluZyBEYXRlOiAgMDYv MjAvMjAyNDwvdGQ+PHRkIH K4jPzwKCDa iEUqBNfvRq9rzKtlxXzbTW 2pOVNtjbunYWHygP0xWXVi uBWedEnxBQ6kSQVontxdq7 39PxIkSYU7 BHSisJJhB4RqeD3dHcWxYB DbSVMmZ5VdkQWfSXhuA112 RKdlEwZ2NVIianFpA2FjYC FsaWduOiB0 n8B1Nv2Hc4TdgockL0IgmD McOnIwMebwHLs1E2OxIuzd dHI+SS66RFDrRU73MMz5ZB B5nUnqPJps QEIdQ0PlnF2yXgXjRKSuQV RkOyc+PHRhYmxlIHdpZHRo KXlhTLTyWbJqoWbtRO3kVi 9yZGVyLWNv eAokoAYvJfJmr0klSZGqOA nqFR8kfAgcK3AzePI1HOPv u7h9Qh20W22jB0CnrOE+PG SshKB3qGG2 gN1tFzHxVjX0TObqJ452Hx EcuWTnEhknz9kkr0okzXh1 QrE6HFPwsvXzeRunVCG9h4 KdGs19B53m IHdpZHRoPSIxNSUiIHZhbG shlp2whT5wGu8+PGNvbCB3 qUT1pC4dHvPpPfV2AApfD9 49InRvcCIv Uuexn1byd6sisBw1AbVbYG RkfuDxbQbmDAG9y6LxDv95 H8UgkXyck2ZhNya5rd51lB Spt1G3bPT2 L4SmTNDrmzwdxJXtqAolWH 7kPTXgmynpMRKojO3mRHNj T0m1NfAtVbP1DDliW5Jatc V1BVArwXPk XMUeiONCvM1voonyx9jutr kgXrKwTDWoWIa8PVz4WTVj cNmqKfRjQWU1EkJ9IZT6fW DdjJ9foDoi cndvxF8rXct+NRX9zYYwmJ JYXW0uDhqzsDJ+PHRkIHN0 sRxzWPcnVJLhzY4zOLRkU2 m1PjQgRiR3 VKyqD5JaswC3EIUyuAPuJR KmzRRGlG7hhjubu1iyhoyf ReJmNDDvULe3RKz3CZLdkO duOiBsZWZ0 WmC3HFS0oKImyJ7ixYzvtt aysD0pXro+QmlydGggRGF0 PUz1N5UwLgm2PHSgvPhtTM 0ncGFkZGlu Nq9tvBmaqIsnVT4pTSLatn wns678JgExa5ovDRJawBAp BVavRSV6A63te5J2RFXoYG VoWYU0oKP4 pC9wlOixyfakmWShgEefvu RbsXjbVLsjWZzsF130ZPOp nFmiYuGeOHx4V1ZtOyq4BE MssSthPR4r uTUfUCjkDd3eiCfoyEtwZH 7gTEWroeorw807NhSiu5tu QRZtbUEhNOuzIIG5S54xq9 E6QQEvQVDv FBL9fKA2cN6leSrdaqhfyX VmdDsgdmVydGljYWwtYWxp C373MRYvcTcsCuLhdLt1M0 OvMdz1IXLa bAauOH5rwTQpQTlwCg1jrD yitKfbNP6jCEXuswrmt679 RzZic8siNPAvyHGfCQxwIZ Z6A82il5A7 BYCwNCSuWMZ9cEJ8qO6wgW lnbjogbGVmdDsgdmVydGlj JGslOYndE778TWRrvSfqSk BhdGllbnQg EXavOQf9I8PyUluifHG+PC 41KWApQB05mRGplTPaw5fw qXx6KhXjRKDqHUF2tQdyGQ jmb2PkMLXy H85saWPjj4D6RYCuqPczhF KoOyZncWA2kK4cZVbiaxzh d9cazstlBjhrz0rugh08iA 98R13iEYln ZHRoPSIzMCUiIHZhbGlnbj 0dqX0gXo6+SWZdgKS1uBQ0 cY0iQYTgYpK7JEloI883Sy RvcCIvPjxj x1qkz6tceKg8UeX3HSIklc DskGzrZDY3p8QiHa46K71c IHdpZHRoPSIyMCUiIHZhbG grda9hvM8z Ii8+ENFegWO5tDW7mN5uRm ZeWkN0ZPhrF953UtEztYXm WellN22vD8FhxXF+PHRyPj e6SCWfoRip AX2pyZKkXKngIw2mTGR3Dc QiIfQeVNwmJ1UpDRShtwjc cejuiFC3CWKhRXMokK69Eq 9udDogMTBw xDGWiQ8vlhbvh6vpoizqRo LgHOFcFAq0BKy7ZRQmzArq XnVuYZN5WgA8ZUZ4pODbrP 1hbGlnbjog iW7wD1OrFAJmqfqoPs19zF 3qQaTqHhZ8RVkkEek+Q09S QklOLCBDSEVOTkkgSzwvdG Q+PHRkIHN0 aPynEEjqFVEwxY7cHWWcT8 j5SkYsUjS9NOovF5OmTIZq brzjSa66dM9aNuCzScE0LZ voW8CgmeM3 AWDsjLPkGEwhJBW7A59hp8 G0HWCsNYIuWVQ5xLE9sC8b bGlnbjogbGVmdDsgdmVydG ljYWwtYWxp H015INLvuKhiFeKiQnUlGy U8LqK7C8TkTvn1HYWspKrw IV8cpRBzUZgmQa0dzSpzcK xfQO5mWOHw bhnvWYJulH9xJBHjcRGxhZ qjRC2zUBDklytyq303UaOr BAO4ZRAsjXNvI0HmuI2kCe AjMDAwMDAw A7CdcLVqSYgzU714LVnoCo D4WWVybwSuI0RiJESfvVel GoF1s5C6Tx86NyLKISKkrq wvdGQ+PHRk IHO0nHzjVXjxYGGixJ0xRU FuW7s7TgAoEhP4WQtoV8Kl GWLkzundIf93xG6hCiFoCu M4ZMnaQ2Ga pkF8MBUmyPPgHXtcPMP1G3 2rb6J1JBTeFFElZFF8oTC4 mV1tlThuceqpvAOkpZqqzd VydGljYWwt RQvwU060NCXhhSuvIbYrpP FsZTwvdGQ+TGAaRSL4bChk OEjaKMWvaK9mSHFpP4o5Rx OuVwO8RUht Q4WeRTItkybiRa73pA4sGl XeApO9JGsyH2SvpuH5WHPa yBDoALgcHYB0M67ev1G5FY MwMDAwMDA7 nZB9pR3ctTchjzajbHRqaF ankvNseWewKBkuMVhiY811 UJNrqSvjLo19hPHqmIwjgb S4A3UjHswg dHI+TZ18WQFwQI29zQGfkE Rqu7weaSv9SlOuKZFfEUZ3 cTnfOSyfc3AgYODqH19nlN Iqx4Q6UWOz lZbxtKKcNuUrbJU7sD0dGS rppekyv1bxbibxSyxtp8za bf16bZ15T89dNHzsNQOnKX IzMCUiIHZh eQeabo2wnP4hHl2+PGNvbC N2fPC0bX5rNoZwLuQ7ZCmv B646WlLduCPeJgjkp3tzo5 sywQu3AnSp XHEsllCbtZmyOFF6i3BuJq 88U44uCUixZLLtWDDiJGEv XQPjsLjzne6dhO1iLl3+PC 7io4wlxz80 pZ58rRC+EQMwHCT0cAndIR mxFCTerN3vLGthEpE0MNUy BrRpyL67xORrAXjtMy8daV gdlWdfAO8u JWBtyscjg615MaDif3elRN HzxNGvLXmoXWD3R02pp6X6 LMOcFGXvSRX1oHH6uI3ciJ lnbjogbGVm dDsgdmVydGljYWwtYWxpZ2 80KWBynOhgEmWgqGAzR5gh ocVHBI6cMvngmYO+PHRkIH M2gDjnYZda XPSbmS6jIXMmC0a2FnKlQh D2HRupF6QxisH0FNRpiXRs FJNamEJIzP8fhrezu1oqjm ogIzAwMDAw BMb1YGr7WRKieXubDmLhLQ J8GjK8SJY5cHOtbH1uqUhv mgvhtX8yQnd+RklOOjwvdG Q+PHRkIHN0 vExwSJbgNSRlaJ6bLFBjQ0 l4JlBnZnN0JMyyO4SzbiH5 GAXchXTiPEXnlTYJbN6suy crl1rylrmu AkVwRNLfPLr9MYb9LHKhrQ nxKjTjANM4EfN1NWD2mTHn zE5diWtjvlnvsW8uDzs+TV JOOjwvdGQ+ JSMvZVU7dPpoCXmnEQPucZ 2cMJInF3t9ZaTfDkM7RQmb M5BxirM4VIVcwLZpLUPdpX ZDrW5jdzxf b2rpwpzbHeStDPJqGNc3HE t3DOSlyWwnCbWlLCV1PuJ8 ECT4uDBllG0ovTbzdikgdO 9wOyc+UGF5 UFZ2YV48MI36O2FeJizqkL FibGU+PHRhYmxlIHdpZHRo UMvdOILpOxPhvMneLO5rSe 9yZGVyLWNv bGxhcHNlOiBjb (more content not included)... Normal [facility] CBC AND AUTO DIFFon 09-18-19 24 ABSOLUTE BASOPHIL 0.0 X10E9/L Normal 0.0-0.2 [facility] Comment on above: Performed By: #### Terrie KIRKPATRICK CMP, 3040-3 #### [facility] ([id number]) [address] [place] [address] ABSOLUTE NEUTROPHIL 3.2 X10E9/L Normal 1.5-6.6 [facility] Comment on above: Performed By: #### Terrie KIRKPATRICK CMP, 0-3 #### [facility] ([id number]) [address] [place] [address] 01841 Basophils/100 WBC (Bld) 0.7 % Normal [facility] Comment on above: Performed By: #### Terrie KIRKPATRICK CMP, 3040-3 #### [facility] ([id number]) [address] [place] [address] 72836 Eosinophils (Bld) [#/Vol] 0.1 10*3/uL Normal 0.0-0.4 [facility] Comment on above: Performed By: #### Terrie KIRKPATRICK CMP, 3040-3 #### [facility] ([id number]) [address] [place] [address] 86693 Eosinophils/100 WBC (Bld) 2.4 % Normal [facility] Comment on above: Performed By: #### Terrie KIRKPATRICK, CMP, 3040-3 #### [facility] ([id number]) [address] [place] [address] 20243 Erythrocyte distribution width (RBC) [Ratio] 13.6 % Normal 11.5-15.0 [facility] Comment on above: Performed By: #### Terrie KIRKPATRICK [facility], 3040-3 #### [facility] ([id number]) [address] [place] [address]22 Hematocrit (Bld) [Volume fraction] 34.5 % Low 35-47 [facility] Comment on above: Performed By: #### Terrie KIRKPATRICK [facility], 3 #### [facility] ([id number]) [address] [place] [address] 80812 Hemoglobin (Bld) [Mass/Vol] 11.6 g/dL Low 11.7-15.5 [facility] Comment on above: Performed By: #### Terrie KIRKPATRICK [facility], 3 #### [facility] ([id number]) [address] [place] [address]234 Lymphocytes (Bld) [#/Vol] 1.9 10*3/uL Normal 1.0-3.5 [facility] Comment on above: Performed By: #### Terrie KIRKPATRICK [facility], 3 #### [facility] ([id number]) [address] [place] [address] 35522 Lymphocytes/100 WBC (Bld) 30.9 % Normal [facility] Comment on above: Performed By: #### Terrie KIRKPATRICK [facility], 3 #### [facility] ([id number]) [address] [place] [address] 71588 MCH (RBC) [Entitic mass] 33.1 pg Normal 27-34 [facility] Comment on above: Performed By: #### Terrie KIRKPATRICK CMP, 0-3 #### [facility] ([id number]) [address] [place] [address] 97778 MCHC (RBC) [Mass/Vol] 33.6 g/dL Normal 32-36 [facility] Comment on above: Performed By: #### Terrie KIRKPATRICK CMP, 3039-3 #### [facility] ([id number]) [address] [place] [address] 42672 MCV (RBC) [Entitic vol] 99 fL Normal 80-100 [facility] Comment on above: Performed By: #### Terrie KIRKPATRICK CMP, 3 #### [facility] ([id number]) [address] [place] [address] 02539 Monocytes (Bld) [#/Vol] 0.9 10*3/uL Normal 0-0.9 [facility] Comment on above: Performed By: #### Terrie KIRKPATRICK CMP, 3 #### [facility] ([id number]) [address] [place] [address] 54486 Monocytes/100 WBC (Bld) 13.8 % Normal [facility] Comment on above: Performed By: #### Terrie KIRKPATRICK, CMP, 3039-06 #### [facility] ([id number]) [address] [place] [address] 96640 Neutrophils/100 WBC (Bld) 52.2 % Normal [facility] Comment on above: Performed By: #### Terrie KIRKPATRICK, CMP, 3039-06 #### [facility] ([id number]) [address] [place] [address] 58562 Platelet mean volume (Bld) [Entitic vol] 9.1 fL Normal 7-12 [facility] Comment on above: Performed By: #### Terrie KIRKPATRICK CMP, 3039-3 #### [facility] ([id number]) [address] [place] [address] 08192 Platelets (Bld) [#/Vol] 291 10*3/uL Normal 150-450 [facility] Comment on above: Performed By: #### Terrie KIRKPATRICK, CMP, 3039-3 #### [facility] ([id number]) [address] [place] [address] 17411 RBC COUNT 3.50 X10E12/L Low 3.80-5.20 [facility] Comment on above: Performed By: #### C BCA, CMP, 3040-3 #### [facility] ([id number]) [address] [place] [address] 12539 WBC (Bld) [#/Vol] 6.2 10*3/uL Normal 4.0-11.0 [facility] Comment on above: Performed By: #### C BCA, CMP, 3040-3 #### [facility] ([id number]) [address] [place] [address] 64534 COMPREHENSIVE METABOLIC PANE Hema 09-18-2023 Albumin [Mass/Vol] 3.8 g/dL Normal 3.2-5.3 [facility] Comment on above: Performed By: #### C BCA, CMP, 3039-3 #### [facility] ([id number]) [address] [place] [address] 01772 ALP [Catalytic activity/Vol] 64 U/L Normal 39-130 [facility] Comment on above: Performed By: #### C BCA, CMP, 3040-3 #### [facility] ([id number]) [address] [place] [address] 93612 ALT [Catalytic activity/Vol] 18 U/L Normal 0-31 [facility] Comment on above: Performed By: #### C BCA, CMP, 3040-3 #### [facility] ([id number]) [address] [place] [address] 42853 Anion gap [Moles/Vol] 7 mmol/L Normal 5-15 [facility] Comment on above: Performed By: #### C BCA, CMP, 3040-3 #### [facility] ([id number]) [address] [place] [address] 33255 AST [Catalytic activity/Vol] 19 U/L Normal 0-41 [facility] Comment on above: Performed By: #### C KEYSHAWN KIRKPATRICK, 3039-3 #### [facility] ([id number]) [address] [place] [address] 59376 Bilirubin [Mass/Vol] 0.6 mg/dL Normal 0.3-1.2 [facility] Comment on above: Performed By: #### C KEYSHAWN KIRKPATRICK, 3 #### [facility] ([id number]) [address] [place] [address] 30435 Calcium [Mass/Vol] 8.4 mg/dL Low 8.5-10.5 [facility] Comment on above: Performed By: #### Terrie KIRKPATRICK CMP, 3 #### [facility] ([id number]) [address] [place] [address] 17871 Chloride [Moles/Vol] 105 mmol/L Normal 98-109 [facility] Comment on above: Performed By: #### C KEYSHAWN KIRKPATRICK, 3 #### [facility] ([id number]) [address] [place] [address] 96009 CO2 [Moles/Vol] 26 mmol/L Normal 22-32 [facility] Comment on above: Performed By: #### Terrie KIRKPATRICK CMP, 3 #### [facility] ([id number]) [address] [place] [address] 12457 Creatinine [Mass/Vol] 1.03 mg/dL High 0.40-1.00 [facility] Comment on above: Result Comment: METH OD TRACEABLE TO IDMS STANDARD Performed By: #### C KAYA CMP, 3039-3 #### [facility] ([id number]) [address] [place] [address] 33347 GFR/1.73 sq M.predicted among non-blacks MDRD (S/P/Bld) [Vol rate/Area] 65 mL/min/{1.73_m2} Normal >59 [facility] Comment on above: Result Comment: Reported eGFR is based on the CKD-EPI 2020 equation that does not use a race coefficient. Performed By: #### C KEYSHAWN KIRKPATRICK, 3040-3 #### [facility] ([id number]) [address] [place] [address] 47500 Glucose [Mass/Vol] 99 mg/dL Normal 65-99 [facility] Comment on above: Performed By: #### Terrie KIRKPATRIKC CMP, 3039-3 #### [facility] ([id number]) [address] [place] [address] 29794 Potassium [Moles/Vol] 3.4 mmol/L Low 3.5-5.0 [facility] Comment on above: Performed By: #### Terrie KIRKPATRICK [facility], 3 #### [facility] ([id number]) [address] [place] [address] 79592 Protein [Mass/Vol] 6.9 g/dL Normal 6.0-8.0 [facility] Comment on above: Performed By: #### Terrie KIRKPATRICK [facility], 0-3 #### [facility] ([id number]) [address] [place] [address] 33043 Sodium [Moles/Vol] 138 mmol/L Normal 134-146 [facility] Comment on above: Performed By: #### Terrie KIRKPATRICK CMP, 0-3 #### [facility] ([id number]) [address] [place] [address] 75601 Urea nitrogen [Mass/Vol] 10 mg/dL Normal 5-23 [facility] Comment on above: Performed By: #### Terrie KIRKPATRICK CMP, 0-3 #### [facility] ([id number]) [address] [place] [address] BRAIN WO CONTon 06-15-[address] BRAIN WO CONT CT BRAIN [...] on 09/18/2023 9:21 PM Normal [facility] LIPASEon 09-18-2023 Lipase [Catalytic activity/Vol] 36 U/L Normal 17-40 [facility] Comment on above: Performed By: #### C BCA, CMP, 3040-3 #### [facility] ([id number]) [address] [place] [address] URN MACROSCOPIC NURon 2023 BILIRUBIN SHADY Negative Normal NEG [facility] Comment on above: Performed By: #### N UM #### [facility] ([id number]) [address] [place] [address] BLOOD/HGB SHADY Trace Abnormal NEG [facility] Comment on above: Performed By: #### N UM #### [facility] ([id number]) [address] [place] [address]28 GLUCOSE SHADY Negative Normal NEG [facility] Comment on above: Performed By: #### N UM #### [facility] ([id number]) [address] [place] [address]17 KETONES SHADY Negative Normal NEG [facility] Comment on above: Performed By: #### N UM #### [facility] ([id number]) [address] [place] [address] 13674 LEUKOCYTE ESTERASE SHADY Negative Normal NEG Pr [facility] Comment on above: Performed By: #### N UM #### [facility] ([id number]) [address] [place] [address] NITRITE SHADY Negative Normal NEG [facility] Comment on above: Performed By: #### N UM #### [facility] ([id number]) [address] [place] [address]4063 PH SHADY 6.0 Normal 5.0-8.5 [facility] Comment on above: Performed By: #### N UM #### [facility] ([id number]) [address] [place] [address]41 PROTEIN SHADY Negative Normal NEG [facility] Comment on above: Performed By: #### N UM #### [facility] ([id number]) [address] [place] [address] 20338 SPECIFIC GRAVITY SHADY 1.010 Normal 1.003-1.035 [facility] Comment on above: Performed By: #### N UM #### [facility] ([id number]) [address] [place] [address] 35393 UROBILINOGEN SHADY 0.2 eu/dL Normal <1.1 [facility] Comment on above: Performed By: #### N UM #### [facility] ([id number]) [address] [place] [address] Consent for Treatmenton 09-03 Consent for Treatment [id number]#1.0 0TIFF Normal [facility] Heart and Vascular Office/Cl inic Noteon [...] with voice recognition artificial intelligence software, specifically [employer], [employer] and or [email or web address]. Substitutions may have occurred due to the [...] History Ca (more content not included)... Normal [facility] Comment on above: Result Comment: Elec tronically Signed By: Deepak MOSES, Roosevelt Remy\.br\Date and Time Signed: 09/13/23 13:41 EDT Insurance Correspondenceon 0 09-13-2023 Insurance Correspondence [id number]#1.0 0TIFF Normal [facility] Outside Labson 09-13-2023 Outside Labs [id number]#1. 00TIFF Normal [facility] Outside Recordson 09-13-2023 Outside Records [id number] 01 [id number]#1. 00TIFF Normal [facility] Outside Records [id number] 01 [id number]#1. 00TIFF [facility] Physician Orderon 09-13-2023 Physician Order [id number] 01 [id number]#1. 00TIFF [facility] RAD - CT Reporton 08-31-2023 RAD - CT Report [id number] 03 [id number]#1.00 TIFF Normal [facility] Lab Reportson 08-17-2023 Lab Reports [id number]#1.0 0TIFF [facility] Urine Cytology ([facility])on 08-17-2023 Microscopic exam Cytology (U) [Interp] Diagnosis Info Invalid Interpretation Code [facility] Comment on above: Result Comment: A:Ur ine,Urine:Voided Interpretation - MicroScopic Description - Adequacy - Gross Description Site ID:A color Light Yellow fixative Alcohol Specimen designated Urine received in alcohol preservative and labeled with the patient?s name, consists of 60ml clear light yellow fluid. Electronically signed by : on: 08/17/2023 14:12:20 Performed By: #### 1 [id number] ####[facility] [address] [place] [address] Lab Reportson 08-11-2023 Lab Reports [id number] 03 [id number]#1.00 TIFF [facility] Physician Referralon 024 Physician Referral [id number] 03 [id number]#1.0 0TIFF [facility] RAD - MISCon 08-11-2023 RAD - MISC [id number] 03 [id number]#1.0 0TIFF [facility] RAD - MISC [id number] 50 [id number]#1.0 0TIFF [facility] RAD - Ultrasound Reporton RAD - Ultrasound Report [id number]#1.0 0TIFF [facility] RAD - Ultrasound Report [id number]#1.0 0TIFF [facility] Screenson 08-11-2023 Screens [id number] 03 [id number]#1.0 0TIFF [facility] Ambulatory Visit Summaryon 0 08-10-2023 Ambulatory Visit Summary BOOKER CRAIGMEHRDAD Benjamín :1970 Visit Date:08/10/2023 Ambulatory Visit Instructions Your [...] Schedule the Following Appointments Follow Up with ELSA MOSES, ROSALES WOO When: Where: [address] [facility] [place] [address] [phone] Medications What How Much When Instructions Unchanged [...] make many (more content not included)... Normal [facility] Patient Educationon 08-10-19 24 Patient Education [...] require a prescription. You can also purchase [id number] medicines. Medicines may have nicotine in them [...] and encouragement. Call telephone quitlines, such as 0-943-SBFA-NOW, reach out to support groups, or work [...] quit smoki (more content not included)... Normal [facility] Urine Cytology ([facility])on 0 08-10-2023 Method of Extraction Voided Normal [facility] Comment on above: Performed By: #### 1 [id number] ####[facility] [id number] [place] [id number] Number of Jars 1 Invalid Interpretation Code [facility] Comment on above: Performed By: #### 1 [id number] ####[facility] [id number] [place] [id number] Specimen Urine Normal [facility] Comment on above: Performed By: #### 1 [id number] ####[facility] [address] [place] [address] Type of Service Technical Only Normal Fi [facility] Comment on above: Performed By: #### 1 [id number] ####[facility] [address] [place] [address] Complete Blood Count Auto Di ffon 06-09-2023 Basophils (Bld) [#/Vol] 0.0 10*3/uL Normal 0.0-0.2 [facility] Comment on above: Order Comment: Reaso n for Exam Urinary frequency;Medication management;Anxiety;Microscopic Result Comment: PERF ORMED BY: [address] [place] [address] PATHOLOGIST CARPORT ERECTOR PALOMO WESLEY M.D. Performed By: #### C BC, [id number], THYROID SC, URMACRERAT, FE and TIBC, LIPID, SHAMA, LDLD, CMP ####[address]#### TOXASSURE, HIV SCREEN ####[facility] , Basophils/100 WBC (Bld) 0.3 % Normal . [facility] Comment on above: Order Comment: Reaso n for Exam Urinary frequency;Medication management;Anxiety;Microscopic Performed By: #### C BC, [id number], THYROID SC, URMACRERAT, FE and TIBC, LIPID, SHAMA, LDLD, CMP ####[address]#### TOXASSURE, HIV SCREEN ####[facility] , Eosinophils (Bld) [#/Vol] 0.1 10*3/uL Normal 0.0-0.45 [facility] Comment on above: Order Comment: Reaso n for Exam Urinary frequency;Medication management;Anxiety;Microscopic Performed By: #### C BC, [id number], THYROID SC, URMACRERAT, FE and TIBC, LIPID, SHAMA, LDLD, CMP ####[address]#### TOXASSURE, HIV SCREEN ####[facility] , Eosinophils/100 WBC (Bld) 1.7 % Normal . [facility] Comment on above: Order Comment: Reaso n for Exam Urinary frequency;Medication management;Anxiety;Microscopic Performed By: #### C BC, [id number], THYROID SC, URMACRERAT, FE and TIBC, LIPID, SHAMA, LDLD, CMP ####[address]#### TOXASSURE, HIV SCREEN ####[facility] , Erythrocyte distribution width (RBC) [Ratio] 13.2 % Normal 11.9-15.3 [facility] Comment on above: Order Comment: Reaso n for Exam Urinary frequency;Medication management;Anxiety;Microscopic Performed By: #### C BC, [id number], THYROID SC, URMACRERAT, FE and TIBC, LIPID, SHAMA, LDLD, CMP ####[address]#### TOXASSURE, HIV SCREEN ####[facility] , Hematocrit (Bld) [Volume fraction] 41.9 % Normal 34.0-46.4 [facility] Comment on above: Order Comment: Reaso n for Exam Urinary frequency;Medication management;Anxiety;Microscopic Performed By: #### C BC, [id number], THYROID SC, URMACRERAT, FE and TIBC, LIPID, SHAMA, LDLD, CMP ####[place] [address] [place]#### TOXASSURE, HIV SCREEN ####[facility] , Hemoglobin (Bld) [Mass/Vol] 14.0 g/dL Normal 11.8-15.4 [facility] Comment on above: Order Comment: Reaso n for Exam Urinary frequency;Medication management;Anxiety;Microscopic Performed By: #### C BC, [id number], THYROID SC, URMACRERAT, FE and TIBC, LIPID, SHAMA, LDLD, CMP ####[place] [id number] [address]#### TOXASSURE, HIV SCREEN ####[facility] , Lymphocytes (Bld) [#/Vol] 2.2 10*3/uL Normal 1.00-4.8 [facility] Comment on above: Order Comment: Reaso n for Exam Urinary frequency;Medication management;Anxiety;Microscopic Performed By: #### C BC, [id number], THYROID SC, URMACRERAT, FE and TIBC, LIPID, SHAMA, LDLD, CMP ####[place] [phone] [address]#### TOXASSURE, HIV SCREEN ####[facility] , Lymphocytes/100 WBC (Bld) 30.2 % Normal . [facility] Comment on above: Order Comment: Reaso n for Exam Urinary frequency;Medication management;Anxiety;Microscopic Performed By: #### C BC, [id number], THYROID SC, URMACRERAT, FE and TIBC, LIPID, SHAMA, LDLD, CMP ####[place] [phone] [address]#### TOXASSURE, HIV SCREEN ####[facility] , MCH (RBC) [Entitic mass] 32.8 pg Normal 24.7-34.3 [facility] Comment on above: Order Comment: Reaso n for Exam Urinary frequency;Medication management;Anxiety;Microscopic Performed By: #### C BC, [id number], THYROID SC, URMACRERAT, FE and TIBC, LIPID, SHAMA, LDLD, CMP ####[address]#### TOXASSURE, HIV SCREEN ####[facility] , MCV (RBC) [Entitic vol] 98.5 fL Normal 80-100 [facility] Comment on above: Order Comment: Reaso n for Exam Urinary frequency;Medication management;Anxiety;Microscopic Performed By: #### C BC, [id number], THYROID SC, URMACRERAT, FE and TIBC, LIPID, SHAMA, LDLD, CMP ####[address]#### TOXASSURE, HIV SCREEN ####[facility] , Mean Corpuscular HGB Conc 33.3 g/dL Normal 32.0-35.0 [facility] Comment on above: Order Comment: Reaso n for Exam Urinary frequency;Medication management;Anxiety;Microscopic Performed By: #### C BC, [id number], THYROID SC, URMACRERAT, FE and TIBC, LIPID, SHAMA, LDLD, CMP ####[address]#### TOXASSURE, HIV SCREEN ####[facility] , Monocytes (Bld) [#/Vol] 0.8 10*3/uL Normal 0.0-0.8 [facility] Comment on above: Order Comment: Reaso n for Exam Urinary frequency;Medication management;Anxiety;Microscopic Performed By: #### C BC, [id number], THYROID SC, URMACRERAT, FE and TIBC, LIPID, SHAMA, LDLD, CMP ####[address]#### TOXASSURE, HIV SCREEN ####[facility] , Monocytes/100 WBC (Bld) 10.9 % Normal . [facility] Comment on above: Order Comment: Reaso n for Exam Urinary frequency;Medication management;Anxiety;Microscopic Performed By: #### C BC, [id number], THYROID SC, URMACRERAT, FE and TIBC, LIPID, SHAMA, LDLD, CMP ####[address]#### TOXASSURE, HIV SCREEN ####[facility] , Neutrophils (Bld) [#/Vol] 4.1 10*3/uL Normal 1.8-7.7 [facility] Comment on above: Order Comment: Reaso n for Exam Urinary frequency;Medication management;Anxiety;Microscopic Performed By: #### C BC, [id number], THYROID SC, URMACRERAT, FE and TIBC, LIPID, SHAMA, LDLD, CMP ####[address]#### TOXASSURE, HIV SCREEN ####[facility] , Neutrophils/100 WBC (Bld) 56.9 % Normal . [facility] Comment on above: Order Comment: Reaso n for Exam Urinary frequency;Medication management;Anxiety;Microscopic Performed By: #### C BC, [id number], THYROID SC, URMACRERAT, FE and TIBC, LIPID, SHAMA, LDLD, CMP ####[address]#### TOXASSURE, HIV SCREEN ####[facility] , NRBC% 0.1 /100{WBC} Normal 0-0.5 [facility] Comment on above: Order Comment: Reaso n for Exam Urinary frequency;Medication management;Anxiety;Microscopic Performed By: #### C BC, [id number], THYROID SC, URMACRERAT, FE and TIBC, LIPID, SHAMA, LDLD, CMP ####[address]#### TOXASSURE, HIV SCREEN ####[facility] , Platelet mean volume (Bld) [Entitic vol] 9.0 fL Normal 6.3-10.7 [facility] Comment on above: Order Comment: Reaso n for Exam Urinary frequency;Medication management;Anxiety;Microscopic Performed By: #### C BC, [id number], THYROID SC, URMACRERAT, FE and TIBC, LIPID, SHAMA, LDLD, CMP ####[address]#### TOXASSURE, HIV SCREEN ####[facility] , Platelets (Bld) [#/Vol] 314 10*3/uL Normal 150-450 [facility] Comment on above: Order Comment: Reaso n for Exam Urinary frequency;Medication management;Anxiety;Microscopic Performed By: #### C BC, [id number], THYROID SC, URMACRERAT, FE and TIBC, LIPID, SHAMA, LDLD, CMP ####[address]#### TOXASSURE, HIV SCREEN ####[facility] , RBC (Bld) [#/Vol] 4.26 10*6/uL Normal 3.60-5.00 [facility] Comment on above: Order Comment: Reaso n for Exam Urinary frequency;Medication management;Anxiety;Microscopic Performed By: #### C BC, [id number], THYROID SC, URMACRERAT, FE and TIBC, LIPID, SHAMA, LDLD, CMP ####[address]#### TOXASSURE, HIV SCREEN ####[facility] , WBC (Bld) [#/Vol] 7.2 10*3/uL Normal 3.8-11.6 [facility] Comment on above: Order Comment: Reaso n for Exam Urinary frequency;Medication management;Anxiety;Microscopic Performed By: #### C BC, [id number], THYROID SC, URMACRERAT, FE and TIBC, LIPID, SHAMA, LDLD, CMP ####[address]#### TOXASSURE, HIV SCREEN ####[facility] , Comprehensive Metabolic Pane hema 06-09-2023 Albumin [Mass/Vol] 4.2 g/dL Normal 3.5-5.7 [facility] Comment on above: Order Comment: Reaso n for Exam Urinary frequency;Medication management;Anxiety;Microscopic Reason for Exam Microscopic hematuria;Low iron Reason for Exam Bipolar affective disorder, currently depressed, moderate Reason for Exam Vitamin D deficiency Performed By: #### C BC, [id number], THYROID SC, URMACRERAT, FE and TIBC, LIPID, SHAMA, LDLD, CMP ####[place] [id number] [address]#### TOXASSURE, HIV SCREEN ####[facility] , Albumin/Globulin [Mass ratio] 1.4 {ratio} Normal [facility] Comment on above: Order Comment: Reaso n for Exam Urinary frequency;Medication management;Anxiety;Microscopic Reason for Exam Microscopic hematuria;Low iron Reason for Exam Bipolar affective disorder, currently depressed, moderate Reason for Exam Vitamin D deficiency Performed By: #### C BC, [id number], THYROID SC, URMACRERAT, FE and TIBC, LIPID, SHAMA, LDLD, CMP ####[address]#### TOXASSURE, HIV SCREEN ####[facility] , ALP [Catalytic activity/Vol] 87 U/L Normal 34-104 [facility] Comment on above: Order Comment: Reaso n for Exam Urinary frequency;Medication management;Anxiety;Microscopic Reason for Exam Microscopic hematuria;Low iron Reason for Exam Bipolar affective disorder, currently depressed, moderate Reason for Exam Vitamin D deficiency Performed By: #### C BC, [id number], THYROID SC, URMACRERAT, FE and TIBC, LIPID, SHAMA, LDLD, CMP ####[address]#### TOXASSURE, HIV SCREEN ####[facility] , ALT [Catalytic activity/Vol] 10 U/L Normal 7-52 [facility] Comment on above: Order Comment: Reaso n for Exam Urinary frequency;Medication management;Anxiety;Microscopic Reason for Exam Microscopic hematuria;Low iron Reason for Exam Bipolar affective disorder, currently depressed, moderate Reason for Exam Vitamin D deficiency Performed By: #### C BC, [id number], THYROID SC, URMACRERAT, FE and TIBC, LIPID, SHAMA, LDLD, CMP ####[address]#### TOXASSURE, HIV SCREEN ####[facility] , Anion gap [Moles/Vol] 12.9 mmol/L Normal 6.0-15.0 [facility] Comment on above: Order Comment: Reaso n for Exam Urinary frequency;Medication management;Anxiety;Microscopic Reason for Exam Microscopic hematuria;Low iron Reason for Exam Bipolar affective disorder, currently depressed, moderate Reason for Exam Vitamin D deficiency Performed By: #### C BC, [id number], THYROID SC, URMACRERAT, FE and TIBC, LIPID, SHAMA, LDLD, CMP ####[address]#### TOXASSURE, HIV SCREEN ####[facility] , AST [Catalytic activity/Vol] 12 U/L Low 13-39 [facility] Comment on above: Order Comment: Reaso n for Exam Urinary frequency;Medication management;Anxiety;Microscopic Reason for Exam Microscopic hematuria;Low iron Reason for Exam Bipolar affective disorder, currently depressed, moderate Reason for Exam Vitamin D deficiency Performed By: #### C BC, [id number], THYROID SC, URMACRERAT, FE and TIBC, LIPID, SHAMA, LDLD, CMP ####[address]#### TOXASSURE, HIV SCREEN ####[facility] , Bilirubin [Mass/Vol] 0.2 mg/dL Low 0.3-1.0 [facility] Comment on above: Order Comment: Reaso n for Exam Urinary frequency;Medication management;Anxiety;Microscopic Reason for Exam Microscopic hematuria;Low iron Reason for Exam Bipolar affective disorder, currently depressed, moderate Reason for Exam Vitamin D deficiency Performed By: #### C BC, [id number], THYROID SC, URMACRERAT, FE and TIBC, LIPID, SHAMA, LDLD, CMP ####[place] [address] [place]#### TOXASSURE, HIV SCREEN ####[facility] , Calcium [Mass/Vol] 9.5 mg/dL Normal 8.6-10.3 [facility] Comment on above: Order Comment: Reaso n for Exam Urinary frequency;Medication management;Anxiety;Microscopic Reason for Exam Microscopic hematuria;Low iron Reason for Exam Bipolar affective disorder, currently depressed, moderate Reason for Exam Vitamin D deficiency Performed By: #### C BC, [id number], THYROID SC, URMACRERAT, FE and TIBC, LIPID, SHAMA, LDLD, CMP ####[place] [phone] [address]#### TOXASSURE, HIV SCREEN ####[facility] , Chloride [Moles/Vol] 105 mmol/L Normal 98-107 [facility] Comment on above: Order Comment: Reaso n for Exam Urinary frequency;Medication management;Anxiety;Microscopic Reason for Exam Microscopic hematuria;Low iron Reason for Exam Bipolar affective disorder, currently depressed, moderate Reason for Exam Vitamin D deficiency Performed By: #### C BC, [id number], THYROID SC, URMACRERAT, FE and TIBC, LIPID, SHAMA, LDLD, CMP ####[address]#### TOXASSURE, HIV SCREEN ####[facility] , CO2 [Moles/Vol] 25.0 mmol/L Normal 21.0-31.0 [facility] Comment on above: Order Comment: Reaso n for Exam Urinary frequency;Medication management;Anxiety;Microscopic Reason for Exam Microscopic hematuria;Low iron Reason for Exam Bipolar affective disorder, currently depressed, moderate Reason for Exam Vitamin D deficiency Performed By: #### C BC, [id number], THYROID SC, URMACRERAT, FE and TIBC, LIPID, SHAMA, LDLD, CMP ####[address]#### TOXASSURE, HIV SCREEN ####[facility] , Creatinine [Mass/Vol] 0.63 mg/dL Normal 0.60-1.20 [facility] Comment on above: Order Comment: Reaso n for Exam Urinary frequency;Medication management;Anxiety;Microscopic Reason for Exam Microscopic hematuria;Low iron Reason for Exam Bipolar affective disorder, currently depressed, moderate Reason for Exam Vitamin D deficiency Performed By: #### C BC, [id number], THYROID SC, URMACRERAT, FE and TIBC, LIPID, SHAMA, LDLD, CMP ####[place] [phone] [address]#### TOXASSURE, HIV SCREEN ####[facility] , GFR/1.73 sq M.predicted MDRD (S/P/Bld) [Vol rate/Area] mL/min/{1.73_m2} Normal [facility] Comment on above: Order Comment: Reaso n for Exam Urinary frequency;Medication management;Anxiety;Microscopic Reason for Exam Microscopic hematuria;Low iron Reason for Exam Bipolar affective disorder, currently depressed, moderate Reason for Exam Vitamin D deficiency Performed By: #### C BC, [id number], THYROID SC, URMACRERAT, FE and TIBC, LIPID, SHAMA, LDLD, CMP ####[address]#### TOXASSURE, HIV SCREEN ####[facility] , Globulin (S) [Mass/Vol] 2.9 g/dL Normal [facility] Comment on above: Order Comment: Reaso n for Exam Urinary frequency;Medication management;Anxiety;Microscopic Reason for Exam Microscopic hematuria;Low iron Reason for Exam Bipolar affective disorder, currently depressed, moderate Reason for Exam Vitamin D deficiency Performed By: #### C BC, [id number], THYROID SC, URMACRERAT, FE and TIBC, LIPID, SHAMA, LDLD, CMP ####[address]#### TOXASSURE, HIV SCREEN ####[facility] , Glucose [Mass/Vol] 90 mg/dL Normal 70-100 [facility] Comment on above: Order Comment: Reaso n for Exam Urinary frequency;Medication management;Anxiety;Microscopic Reason for Exam Microscopic hematuria;Low iron Reason for Exam Bipolar affective disorder, currently depressed, moderate Reason for Exam Vitamin D deficiency Result Comment: [facility] Glucose Reference Range is dependent on time and content of last meal. Glucose of more than 200 mg/dL in a nonstressed, ambulatory subject supports the diagnosis of Diabetes Mellitus. ADA recommended reference range Performed By: #### C BC, [id number], THYROID SC, URMACRERAT, FE and TIBC, LIPID, SHAMA, LDLD, CMP ####[address]#### TOXASSURE, HIV SCREEN ####[facility] , Potassium [Moles/Vol] 3.9 mmol/L Normal 3.5-5.1 [facility] Comment on above: Order Comment: Reaso n for Exam Urinary frequency;Medication management;Anxiety;Microscopic Reason for Exam Microscopic hematuria;Low iron Reason for Exam Bipolar affective disorder, currently depressed, moderate Reason for Exam Vitamin D deficiency Performed By: #### C BC, [id number], THYROID SC, URMACRERAT, FE and TIBC, LIPID, SHAMA, LDLD, CMP ####[address]#### TOXASSURE, HIV SCREEN ####[facility] , Protein [Mass/Vol] 7.1 g/dL Normal 6.4-8.9 [facility] Comment on above: Order Comment: Reaso n for Exam Urinary frequency;Medication management;Anxiety;Microscopic Reason for Exam Microscopic hematuria;Low iron Reason for Exam Bipolar affective disorder, currently depressed, moderate Reason for Exam Vitamin D deficiency Performed By: #### C BC, [id number], THYROID SC, URMACRERAT, FE and TIBC, LIPID, SHAMA, LDLD, CMP ####[place] [address] [place]#### TOXASSURE, HIV SCREEN ####[facility] , Sodium [Moles/Vol] 139 mmol/L Normal 136-145 [facility] Comment on above: Order Comment: Reaso n for Exam Urinary frequency;Medication management;Anxiety;Microscopic Reason for Exam Microscopic hematuria;Low iron Reason for Exam Bipolar affective disorder, currently depressed, moderate Reason for Exam Vitamin D deficiency Performed By: #### C BC, [id number], THYROID SC, URMACRERAT, FE and TIBC, LIPID, SHAMA, LDLD, CMP ####[facility] [place] [id number] [facility]#### TOXASSURE, HIV SCREEN ####[facility] , Urea nitrogen [Mass/Vol] 14 mg/dL Normal 7-25 [facility] Comment on above: Order Comment: Reaso n for Exam Urinary frequency;Medication management;Anxiety;Microscopic Reason for Exam Microscopic hematuria;Low iron Reason for Exam Bipolar affective disorder, currently depressed, moderate Reason for Exam Vitamin D deficiency Performed By: #### C BC, [id number], THYROID SC, URMACRERAT, FE and TIBC, LIPID, SHAMA, LDLD, CMP ####[place] [phone] [address]#### TOXASSURE, HIV SCREEN ####[facility] , Ferritinon 06-09-2023 Ferritin [Mass/Vol] 78.9 ng/mL Normal 11.0-306.8 [facility] Comment on above: Order Comment: Reaso n for Exam Urinary frequency;Medication management;Anxiety;Microscopic Reason for Exam Microscopic hematuria;Low iron Reason for Exam Bipolar affective disorder, currently depressed, moderate Reason for Exam Vitamin D deficiency Performed By: #### C BC, [id number], THYROID SC, URMACRERAT, FE and TIBC, LIPID, SHAMA, LDLD, CMP ####[address]#### TOXASSURE, HIV SCREEN ####[facility] , HIV 1/O/2 Antigen/Antibodyon 06-09-2023 HIV Screen 4th Generation Non-Reactive Normal Non Reactive [facility] Comment on above: Order Comment: Reaso n for Exam Polysubstance abuse Result Comment: HIV Negative HIV-1/HIV-2 antibodies and HIV-1 p24 antigen were NOT detected. There is no laboratory evidence of HIV infection. Performed at: [id number] Street Commissioner: Kurtis Gallegos PhD, Phone: [phone] PERFORMED BY: [address] [place] [id number] PATHOLOGIST CARPORT ERECTOR PALOMO WESLEY M.D. Performed By: #### C BC, [id number], THYROID SC, URMACRERAT, FE and TIBC, LIPID, SHAMA, LDLD, CMP ####[place] [phone] [address]#### TOXASSURE, HIV SCREEN ####[facility] , Iron and TIBC Profileon 6-2023 % Iron Saturation 22.1 % Normal 20-50 The [facility] Comment on above: Order Comment: Reaso n for Exam Urinary frequency;Medication management;Anxiety;Microscopic Reason for Exam Microscopic hematuria;Low iron Reason for Exam Bipolar affective disorder, currently depressed, moderate Reason for Exam Vitamin D deficiency Performed By: #### C BC, [id number], THYROID SC, URMACRERAT, FE and TIBC, LIPID, SHAMA, LDLD, CMP ####[place] [phone] [address]#### TOXASSURE, HIV SCREEN ####[facility] , Iron [Mass/Vol] 93 ug/dL Normal 50-212 The [facility] Comment on above: Order Comment: Reaso n for Exam Urinary frequency;Medication management;Anxiety;Microscopic Reason for Exam Microscopic hematuria;Low iron Reason for Exam Bipolar affective disorder, currently depressed, moderate Reason for Exam Vitamin D deficiency Performed By: #### C BC, [id number], THYROID SC, URMACRERAT, FE and TIBC, LIPID, SHAMA, LDLD, CMP ####[place] [phone] [address]#### TOXASSURE, HIV SCREEN ####[facility] , Total Iron Binding Capacity 420 ug/dL Normal 255-450 [facility] Comment on above: Order Comment: Reaso n for Exam Urinary frequency;Medication management;Anxiety;Microscopic Reason for Exam Microscopic hematuria;Low iron Reason for Exam Bipolar affective disorder, currently depressed, moderate Reason for Exam Vitamin D deficiency Performed By: #### C BC, [id number], THYROID SC, URMACRERAT, FE and TIBC, LIPID, SHAMA, LDLD, CMP ####[facility] [place] [id number] [facility]#### TOXASSURE, HIV SCREEN ####[facility] , Transferrin [Mass/Vol] 300 mg/dL Normal 203-362 Th e [facility] Comment on above: Order Comment: Reaso n for Exam Urinary frequency;Medication management;Anxiety;Microscopic Reason for Exam Microscopic hematuria;Low iron Reason for Exam Bipolar affective disorder, currently depressed, moderate Reason for Exam Vitamin D deficiency Performed By: #### C BC, [id number], THYROID SC, URMACRERAT, FE and TIBC, LIPID, SHAMA, LDLD, CMP ####[place] [phone] [address]#### TOXASSURE, HIV SCREEN ####[facility] , LDL Cholesterol Measuredon 0 06-09-2023 LDL Cholesterol Measured 122 mg/dL High 0-100 [facility] Comment on above: [...] Very high Performed By: #### C BC, [id number], THYROID SC, URMACRERAT, FE and TIBC, LIPID, SHAMA, LDLD, CMP ####[place] [id number] [place] [id number] [place]#### TOXASSURE, HIV SCREEN ####[facility] , Lipid Panelon 06-09-2023 Cholesterol [Mass/Vol] 216 mg/dL High 140-200 Th [facility] Comment on above: Order Comment: Reaso n for Exam Urinary frequency;Medication management;Anxiety;Microscopic Reason for Exam Microscopic hematuria;Low iron Reason for Exam Bipolar affective disorder, currently depressed, moderate Reason for Exam Vitamin D deficiency Result Comment: Chol less than 200 mg/dl low risk Chol 201-239 mg/dl borderline risk Chol 240 mg/dl and greater high risk Performed By: #### C BC, [id number], THYROID SC, URMACRERAT, FE and TIBC, LIPID, SHAMA, LDLD, CMP ####[place] [id number] [address]#### TOXASSURE, HIV SCREEN ####[facility] , Cholesterol in HDL [Mass/Vol] 69 mg/dL Normal 23-92 [facility] Comment on above: Order Comment: Reaso n for Exam Urinary frequency;Medication management;Anxiety;Microscopic Reason for Exam Microscopic hematuria;Low iron Reason for Exam Bipolar affective disorder, currently depressed, moderate Reason for Exam Vitamin D deficiency Result Comment: HDL CHOL ATP-III CLASSIFICATION Cardiovascular Risk HDL > or equal to 60 mg/dL LOW HDL < 40 mg/dL HIGH Performed By: #### C BC, [id number], THYROID SC, URMACRERAT, FE and TIBC, LIPID, SHAMA, LDLD, CMP ####[place] [id number] [address]#### TOXASSURE, HIV SCREEN ####[facility] , Cholesterol.total/Chol esterol in HDL [Mass ratio] 3.1 {ratio} Normal <5.0 [facility] Comment on above: Order Comment: Reaso n for Exam Urinary frequency;Medication management;Anxiety;Microscopic Reason for Exam Microscopic hematuria;Low iron Reason for Exam Bipolar affective disorder, currently depressed, moderate Reason for Exam Vitamin D deficiency Performed By: #### C BC, [id number], THYROID SC, URMACRERAT, FE and TIBC, LIPID, SHAMA, LDLD, CMP ####[place] [phone] [address]#### TOXASSURE, HIV SCREEN ####[facility] , LDL Cholesterol,Calculated Not performed Normal 0-100 [facility] Comment on above: Order Comment: Reaso n for Exam Urinary frequency;Medication management;Anxiety;Microscopic Reason for Exam Microscopic hematuria;Low iron Reason for Exam Bipolar affective disorder, currently depressed, moderate Reason for Exam Vitamin D deficiency Performed By: #### C BC, [id number], THYROID SC, URMACRERAT, FE and TIBC, LIPID, SHAMA, LDLD, CMP ####[place] [phone] [address]#### TOXASSURE, HIV SCREEN ####[facility] , Triglyceride w/Reflex 443 mg/dL High 0-149 [facility] Comment on above: [...] and resulted. Performed By: #### C BC, [id number], THYROID SC, URMACRERAT, FE and TIBC, LIPID, SHAMA, LDLD, CMP ####[place] [phone] [address]#### TOXASSURE, HIV SCREEN ####[facility] , VLDL CHOLESTEROL 88 mg/dL Normal [facility] Comment on above: Order Comment: Reaso n for Exam Urinary frequency;Medication management;Anxiety;Microscopic Reason for Exam Microscopic hematuria;Low iron Reason for Exam Bipolar affective disorder, currently depressed, moderate Reason for Exam Vitamin D deficiency Performed By: #### C BC, [id number], THYROID SC, URMACRERAT, FE and TIBC, LIPID, SHAMA, LDLD, CMP ####[place] [phone] [place] [address] [place]#### TOXASSURE, HIV SCREEN ####[facility] , MicroAlb Creat Ratio,Uon Albumin DL <= 20 mg/L (U) [Mass/Vol] 2.1 mg/dL High 0.0-1.8 [facility] Comment on above: Order Comment: Reaso n for Exam Urinary frequency;Microscopic hematuria Performed By: #### C BC, [id number], THYROID SC, URMACRERAT, FE and TIBC, LIPID, SHAMA, LDLD, CMP ####[place] [phone] [address]#### TOXASSURE, HIV SCREEN ####[facility] , Creatinine, Urine (Random) 66.0 mg/dL High 11.0-20.0 [facility] Comment on above: Order Comment: Reaso n for Exam Urinary frequency;Microscopic hematuria Performed By: #### C BC, [id number], THYROID SC, URMACRERAT, FE and TIBC, LIPID, SHAMA, LDLD, CMP ####[place] [phone] [address]#### TOXASSURE, HIV SCREEN ####[facility] , Microalbumin/Creatinin e Ratio 31.0 mg/g High 0.0-30.0 [facility] Comment on above: Order Comment: Reaso n for Exam Urinary frequency;Microscopic hematuria Result Comment: 30-3 00 mg/g indicates an increased risk for diabetic nephropathy. Greater than 300 mg/g is consistent with clinical nephropathy. (Am. J. Kidney Disease 1995, 25:107) PERFORMED BY: [facility] [address] [place] [address] PATHOLOGIST CARPORT ERECTOR PALOMO WESLEY M.D. Performed By: #### C BC, [id number], THYROID SC, URMACRERAT, FE and TIBC, LIPID, SHAMA, LDLD, CMP ####[address]#### TOXASSURE, HIV SCREEN ####[facility] , THYROID SCREENon 06-09-2023 Free T4 [Mass/Vol] 0.68 ng/dL Normal 0.61-1.12 [facility] Comment on above: Order Comment: Reaso n for Exam Urinary frequency;Medication management;Anxiety;Microscopic Reason for Exam Microscopic hematuria;Low iron Reason for Exam Bipolar affective disorder, currently depressed, moderate Reason for Exam Vitamin D deficiency Performed By: #### C BC, [id number], THYROID SC, URMACRERAT, FE and TIBC, LIPID, SHAMA, LDLD, CMP ####[facility]#### TOXASSURE, HIV SCREEN ####[facility] , TSH Qn 2.09 m[IU]/L Normal 0.45-5.33 [facility] Comment on above: Order Comment: Reaso n for Exam Urinary frequency;Medication management;Anxiety;Microscopic Reason for Exam Microscopic hematuria;Low iron Reason for Exam Bipolar affective disorder, currently depressed, moderate Reason for Exam Vitamin D deficiency Performed By: #### C BC, [id number], THYROID SC, URMACRERAT, FE and TIBC, LIPID, SHAMA, LDLD, CMP ####[facility] [address]#### TOXASSURE, HIV SCREEN ####[facility] , Toxassure, Urineon 4 Toxassure, Urine Summary FINAL Normal . [facility] Comment on above: [...] test is not intended to distinguish between jmunu-7-pegzpbfiaxljsccvlckj, the predominant form of THC in most herbal or marijuana-based products, and zlqvm-7-rsykcszrokvsmvybyxjd. Gabapentin PRESENT Cyclobenzaprine PRESENT Desmethylcyclobenzaprine PRESENT Desmethylcyclobenzaprine is an expected metabolite of cyclobenzaprine. Naproxen PRESENT ===== Test Result Flag Units Ref Range Creatinine 63 mg/dL >=20 ===== Declared Medications: Medication list was not provided. ===== For clinical consultation, please call . ===== Performed at: [facility] [address] [place] [id number] Commissioner: Ana Munoz [facility], Phone: [phone] PERFORMED BY: [address] [place] [id number] PATHOLOGIST CARPORT ERECTOR PALOMO WESLEY M.D. Performed By: #### C BC, [id number], THYROID SC, URMACRERAT, FE and TIBC, LIPID, SHAMA, LDLD, CMP ####[place] [phone] [place] [id number] [facility]#### TOXASSURE, HIV SCREEN ####[facility] , Vitamin D 25 Hydroxy Totalon 06-09-2023 Vitamin D 25 Hydroxy Total 19.8 ng/mL Low 30-100 [facility] Comment on above: [...] practice guideline. JCEM. 2010; 96(7):1911-30. PERFORMED BY: [facility] [address] [place] [id number] PATHOLOGIST CARPORT ERECTOR PALOMO WESLEY M.D. Performed By: #### C BC, [id number], THYROID SC, URMACRERAT, FE and TIBC, LIPID, SHAMA, LDLD, CMP ####[place] [phone] [place] [id number] [facility]#### TOXASSURE, HIV SCREEN ####[facility] , Formson 04-26-2023 Forms [id number]#1. 00TIFF Normal [facility] Myocardial Spect Rest/Str ess 1 Dayon 04-20-2023 [...] Stress Dose (mCi Tc99M Cardiolite): 28.9 Normal [facility] Stress EKG Tracingson 2023 Stress EKG Tracings [id number]#1. 00TIFF Normal [facility] Consent for Treatmenton 04-05 Consent for Treatment [id number]#1.0 0TIFF [facility] Office/Cl inic Noteon 04-11-2023 [...] with voice recognition artificial intelligence software, specifically [employer], [employer] and or [email or web address]. Substitutions may have occurred with voice recognition and artificial intelligence software. Documentation services were performed after patient or guardian consented to allow [facility] to record this visit. ANDERSON care specialist and provider reviewed before signing. ANDERSON: [...] 3 refi (more content not included)... Normal [facility] Comment on above: Result Comment: Elec tronically Signed By: Jose PATRICK, Ramone Butt\.br\Date and Time Signed: 04/11/23 19:52 EST\.br\Electronically Co-Signed By: Janie Villarreal\.br\Date and Time Co-Signed: 03/22/23 14:46 EST US renal BIon 04-01-2023 US renal BI [facility] [address] Ultrasound Report Signed Patient: Isela Craig MR#: [id number] : 1970 Acct:[id number] Age/Sex: 52 / F ADM Date: 04/01/23 Loc: Room: Type: [facility] Attending Dr: Jes Cruz SENIOR INFORMATION SECURITY ARCHITECT-C Ordering Provider: Jes Cruz Date of Service: 04/01/23 US/US renal BI: R31.9 ([id number]) US/US bladder: R31.9 Copies to: Jes Cruz [...] Johns Jr., D.O.04/01/2023 3:16 PM Dictation Location: [place] [address] Tech: Chloe Delcid Transcribed By: FLORES 04/01/231515 Dictated By: Freddy Johns Jr, DO 04/01/231511 Signed By: 04/01/231515 Normal [facility] XR KUBon 04-01-2023 XR KUB [facility] Main [place] [address] [place] [address] XRay Report Signed Patient: Isela Craig MR#: [id number] : 1970 Acct:[id number] Age/Sex: 52 / F ADM Date: 04/01/23 Loc: Room: Type: [facility] Attending Dr: Jes Cruz SENIOR INFORMATION SECURITY ARCHITECT-C Copies to: Jes Cruz Ordering Provider: Jes [...] Shae Guzman M.D.04/01/2023 3:38 PM Dictation Location: [place] [address] Transcribed By: [facility] 04/01/23 1538 Dictated By: Shae Guzman MD 04/01/23 1536 Signed By: 04/01/23 1538 Normal [facility] Insurance Correspondenceon 05-24-2022 Insurance Correspondence [id number]#1.0 0TIFF Normal [facility] Consent for Treatmenton 03-05 Consent for Treatment [id number] 0TIFF Normal [facility] Physician Orderon 03-22-2023 Physician Order [id number] .00TIFF Normal [facility] Referrals Officeon 3 Referrals Office [id number] .00TIFF Normal [facility] COVID Quick Testingon 2022 Result Negative [place] Other Quick Strepon 12-15-2022 S. pyogenes Org specific cx Ql (Throat) Negative [facility] Other Quick Strep [facility] Other COVID + FLU Quick Testingon 10-14-2022 SARS-CoV-2 (COVID-19) RNA AISSATOU+probe Ql (Unsp spec) Negative [facility] Other COVID + FLU Quick Testing Negative [facility] Other Quick Strepon 10-14-2022 S. pyogenes Org specific cx Ql (Throat) Negative [facility] Other Quick Strep [facility] Other Office Visit (Cardiology)on 06-24-2022 Follow-up visit Diagnoses/Problems Assessed Costochondritis (733.6) (M94.0) Palpitations (785.1) (R00.2) For the most part brief and fleeting, seem most consistent with PVC. 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 SENIOR INFORMATION SECURITY ARCHITECT 6 weeks Chief Complaint Add on d/t [...] department evaluation. Last week she presented to [facility] due to chest pain and dizziness. [...] and fluttering . 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 Due to blood pressure and palpitations [...] Recorded: 24Jun2022 09:32AM Heart Rate88, R Radial Odlffzvd334, RUE, Si (more content not included)... Normal [facility] Tobacco Screening.on 023 Adult depression screening assessment No [facility] 250 DO Work Phone: Tobacco use status CPHS a) Yes [facility] 250 DO Work Phone: Tobacco Screening. Yes [facility] 250 DO Work Phone: Alanine aminotransferase [En zymatic activity/volume] in Serum or PlasmaOrdered By: Jes Cruz on 06-19-2022 ALT [Catalytic activity/Vol] 11 U/L 7 [facility] Albumin [Mass/volume] in Ser um or Plasma by Bromocresol green (BCG) dye binding methoOrdered By: Jes Cruz on 06-19-2022 Albumin BCG dye [Mass/Vol] 4.0 g/dL 3.5-5.7 [facility] Alkaline phosphatase [Enzyma tic activity/volume] in Serum or PlasmaOrdered By: Jes Cruz on 06-19-2022 ALP [Catalytic activity/Vol] 70 U/L 34-104 [facility] Aspartate aminotransferase [ Enzymatic activity/volume] in Serum or PlasmaOrdered By: Jes Cruz on 06-19-2022 AST [Catalytic activity/Vol] 11 U/L 13-39 [facility] Basophils Auto (Bld) [#/Vol] Ordered By: Jes Cruz on 06-19-2022 Basophils (Bld) [#/Vol] 0.1 10*3/uL 0.0-0.2 [facility] Basophils/100 WBC Auto (Bld) Ordered By: Jes Cruz on 06-19-2022 Basophils/100 WBC (Bld) 1.2 % . [facility] Bilirubin.total [Mass/volume ] in Serum or PlasmaOrdered By: Jes Cruz on 06-19-2022 Bilirubin [Mass/Vol] 0.2 mg/dL 0.3-1.0 [facility] C reactive protein [Mass/vol ume] in Serum or Plasma by High sensitivity methodOrdered By: Jes Cruz on 06-19-2022 CRP High sensitivity method [Mass/Vol] 0.4 mg/L 0.0-0.9 [facility] Comment on above: Cardiovascular [...] on 06-19-2022 Calcium [Mass/Vol] 9.1 mg/dL 8.6-10.3 [facility] Carbon dioxide, total [Moles /volume] in Serum or PlasmaOrdered By: Jes Cruz on 06-19-2022 CO2 [Moles/Vol] 24.4 mmol/L 21.0-31.0 [facility] Chloride [Moles/volume] in S shanna or PlasmaOrdered By: Jes Cruz on 06-19-2022 Chloride [Moles/Vol] 108 mmol/L 98-107 [facility] Cholesterol [Mass/volume] in Serum or PlasmaOrdered By: Jes Cruz on 06-19-2022 Cholesterol [Mass/Vol] 190 mg/dL 140-200 [facility] Comment on above: Chol less than 200 m g/dl low riskChol 201-239 mg/dl borderline riskChol 240 mg/dl and greater high risk Cholesterol in LDL Calc [Mas s/Vol]Ordered By: Jes Cruz on 06-19-2022 Cholesterol in LDL [Mass/Vol] 74 mg/dL 0-100 [facility] Comment on above: LDL ATP III CLASSIFI CATIONLDL less than 100 mg/dL OptimalLDL 100-129 mg/dL Near or above optimalLDL 130-159 mg/dL Borderline highLDL 160-189 mg/dL HighLDL greater than 189 mg/dL Very high Cholesterol in VLDL Calc [Ma ss/Vol]Ordered By: Jes Cruz on 06-19-2022 Cholesterol in VLDL [Mass/Vol] 48 mg/dL [facility] Creatine kinase [Enzymatic a ctivity/volume] in Serum or PlasmaOrdered By: Jes Cruz on 06-19-2022 CK [Catalytic activity/Vol] 35 U/L 30-223 [facility] Creatine kinase.MB [Mass/vol ume] in Serum or PlasmaOrdered By: Jes Cruz on 06-19-2022 CK.MB [Mass/Vol] 2.3 ng/mL 0.6-6.3 [facility] Creatinine [Mass/volume] in Serum or PlasmaOrdered By: Jes Cruz on 06-19-2022 Creatinine [Mass/Vol] 0.79 mg/dL 0.60-1.20 [facility] Eosinophils Auto (Bld) [#/Vo l]Ordered By: Jes Cruz on 06-19-2022 Eosinophils (Bld) [#/Vol] 0.2 10*3/uL 0.0-0.45 [facility] Eosinophils/100 WBC Auto (Bl d)Ordered By: Jes Cruz on 06-19-2022 Eosinophils/100 WBC (Bld) 2.5 % . [facility] Erythrocyte distribution wid th Auto (RBC) [Ratio]Ordered By: Jes Cruz on 06-19-2022 Erythrocyte distribution width (RBC) [Ratio] 13.2 % 11.9-15.3 [facility] Globulin Calc (S) [Mass/Vol] Ordered By: Jes Cruz on 06-19-2022 Globulin (S) [Mass/Vol] 2.3 g/dL [facility] Glucose [Mass/volume] in Ser um or PlasmaOrdered By: Jes Cruz on 06-19-2022 Glucose [Mass/Vol] 94 mg/dL 74-109 [facility] Comment on above: ADA recommended refe rence rangeRandom Glucose Reference Range is dependent on time and content of last meal. Glucose of more than 200 mg/dL in a nonstressed, ambulatory subject supports the diagnosis of Diabetes Mellitus. Hematocrit Auto (Bld) [Volum e fraction]Ordered By: Jes Cruz on 06-19-2022 Hematocrit (Bld) [Volume fraction] 39.3 % 34.0-46.4 [facility] Hemoglobin [Mass/volume] in BloodOrdered By: Jes Cruz on 06-19-2022 Hemoglobin (Bld) [Mass/Vol] 13.1 g/dL 11.8-15.4 [facility] Laboratory - Chemistry and C hemistry - challengeOrdered By: Jes Cruz on 06-19-2022 GFR/1.73 sq M.predicted MDRD (S/P/Bld) [Vol rate/Area] mL/min/{1.73_m2} [facility] Leukocytes [#/volume] correc ricardo for nucleated erythrocytes in Blood by Automated counOrdered By: Jes Cruz on 06-19-2022 WBC corrected for nucl RBC Auto (Bld) [#/Vol] 8.2 10*3/uL 3.8-11.6 [facility] Lymphocytes Auto (Bld) [#/Vo l]Ordered By: Jes Cruz on 06-19-2022 Lymphocytes (Bld) [#/Vol] 2.5 10*3/uL 1.00-4.8 [facility] Lymphocytes/100 WBC Auto (Bl d)Ordered By: Jes Cruz on 06-19-2022 Lymphocytes/100 WBC (Bld) 30.3 % . [facility] MCH Auto (RBC) [Entitic mass ]Ordered By: Jes Cruz on 06-19-2022 MCH (RBC) [Entitic mass] 33.2 pg 24.7-34.3 [facility] MCHC Auto (RBC) [Mass/Vol]Or dered By: Jes Cruz on 06-19-2022 MCHC (RBC) [Mass/Vol] 33.4 g/dL 32.0-35.0 [facility] MCV Auto (RBC) [Entitic vol] Ordered By: Jes Cruz on 06-19-2022 MCV (RBC) [Entitic vol] 99.5 fL 80-100 [facility] Monocytes Auto (Bld) [#/Vol] Ordered By: Jes Cruz on 06-19-2022 Monocytes (Bld) [#/Vol] 1.0 10*3/uL 0.0-0.8 [facility] Monocytes/100 WBC Auto (Bld) Ordered By: Jes Cruz on 06-19-2022 Monocytes/100 WBC (Bld) 11.6 % . [facility] Natriuretic peptide B [Mass/ Vol]Ordered By: Jes Cruz on 06-19-2022 Natriuretic peptide B (Bld) [Mass/Vol] 87.0 pg/mL 5-100 [facility] Neutrophils Auto (Bld) [#/Vo l]Ordered By: Jes Cruz on 06-19-2022 Neutrophils (Bld) [#/Vol] 4.5 10*3/uL 1.8-7.7 [facility] Neutrophils/100 WBC Auto (Bl d)Ordered By: Jes Cruz on 06-19-2022 Neutrophils/100 WBC (Bld) 54.4 % . [facility] No Panel InformationOrdered By: Jes Cruz on 06-19-2022 Pharmacy Creatinine Clearance (Chem N/A [facility] Nucleated erythrocytes [Pres ence] in Blood by Automated countOrdered By: Jes Cruz on 06-19-2022 Nucleated RBC Auto Ql (Bld) 0.2 /100{WBC} 0-0.5 [facility] Platelet mean volume Auto (B ld) [Entitic vol]Ordered By: Jes Cruz on 06-19-2022 Platelet mean volume (Bld) [Entitic vol] 10.2 fL 6.3-10.7 [facility] Platelets Auto (Bld) [#/Vol] Ordered By: Jes Cruz on 06-19-2022 Platelets (Bld) [#/Vol] 297 10*3/uL 150-450 [facility] Potassium [Moles/volume] in Serum or PlasmaOrdered By: Jes Cruz on 06-19-2022 Potassium [Moles/Vol] 4.3 mmol/L 3.5-5.1 [facility] Protein [Mass/volume] in Ser um or PlasmaOrdered By: Jes Cruz on 06-19-2022 Protein [Mass/Vol] 6.3 g/dL 6.4-8.9 [facility] RBC Auto (Bld) [#/Vol]Ordere d By: Jes Cruz on 06-19-2022 RBC (Bld) [#/Vol] 3.95 10*6/uL 3.60-5.00 [facility] Serum or plasma albumin/glob ulin mass ratioOrdered By: Jes Cruz on 06-19-2022 Albumin/Globulin [Mass ratio] 1.7 {ratio} [facility] Serum or plasma anion gap de terminationOrdered By: Jes Cruz on 06-19-2022 Anion gap [Moles/Vol] 10.9 mmol/L 6.0-15.0 [facility] Serum or plasma creatine kin ase MB (CKMB)/total creatine kinase (CK) ratio by calculaOrdered By: Jes Cruz on 06-19-2022 CK.MB Calc [Catalytic fraction] 6.5 % 0.00-2.50 [facility] Serum or plasma high density lipoprotein (HDL) cholesterol measurementOrdered By: Jes Cruz on 06-19-2022 Cholesterol in HDL [Mass/Vol] 68 mg/dL 35-85 [facility] Comment on above: HDL CHOL ATP-III CLA SSIFICATION Cardiovascular RiskHDL > or equal to 60 mg/dL LOWHDL < 40 mg/dL HIGH Serum or plasma total choles terol/high density lipoprotein (HDL) cholesterol mass ratOrdered By: Jes Cruz on 06-19-2022 Cholesterol.total/Chol esterol in HDL [Mass ratio] 2.8 {ratio} <5.0 [facility] Sodium [Moles/volume] in Ser um or PlasmaOrdered By: Jes Cruz on 06-19-2022 Sodium [Moles/Vol] 139 mmol/L 136-145 [facility] Thyrotropin [Units/volume] i n Serum or PlasmaOrdered By: Jes Cruz on 06-19-2022 TSH Qn 2.33 m[IU]/L 0.45-5.33 [facility] Thyroxine (T4) free [Mass/vo lume] in Serum or PlasmaOrdered By: Jes Cruz on 06-19-2022 Free T4 [Mass/Vol] 0.63 ng/dL 0.61-1.12 [facility] Triglyceride [Mass/volume] i n Serum or PlasmaOrdered By: Jes Cruz on 06-19-2022 Triglyceride [Mass/Vol] 241 mg/dL 0-149 [facility] Comment on above: TRIG ATP III CLASSIF ICATIONTRIG less than 150 mg/dL NormalTRIG 150-199 mg/dL Borderline highTRIG 200-500 mg/dL High TRIG greater than 500 mg/dL Very highStandard traceable to the Center for Disease Conrtrol and Prevention (CDC) test method. Urea nitrogen [Mass/volume] in Serum or PlasmaOrdered By: Jes Cruz on 06-19-2022 Urea nitrogen [Mass/Vol] 9 mg/dL 7-25 [facility] WBC Auto (Bld) [#/Vol]Ordere d By: Jes Cruz on 06-19-2022 WBC (Bld) [#/Vol] 8.2 10*3/uL 3.8-11.6 [facility] CARDIAC BJORN ADMITon 023 CK [Catalytic activity/Vol] 54 U/L Normal 26-192 [facility] Comment on above: Performed By: #### C MICHAELM, CMP #### [facility] [address] [place] [address] Dr. Howard Guthrie CK.MB [Mass/Vol] 1.70 ng/mL Normal <=3.60 [facility] Comment on above: Performed By: #### C MICHAELM, CMP #### [facility] [address] [place] [address] Dr. Howard Guthrie HSTROP <4.0 Normal 4.0-51.3 [facility] Comment on above: Result Comment: CUT- OFF POINTS HAVE BEEN ESTABLISHED BASED ON THE FOURTH UNIVERSAL DEFINITIONS OF MYOCARDIAL INFARCTION. THE UPPER REFERENCE LIMIT (URL) OF TROPONIN, DEFINED THE 99TH PERCENTILE OF cTnI DISTRIBUTION IN A REFERENCE POPULATION, HAS BEEN CONFIRMED THE DECISION THRESHOLD FOR [place] DIAGNOSIS. Performed By: #### C JORDAN, CMP #### [facility] [address] [place] [address] Dr. Howard Guthrie NYA 23 ng/mL Normal 9-82 [facility] Comment on above: Performed By: #### C MICHAELM, CMP #### [facility] [address] [place] [address] Dr. Howard Guthrie CBC AUTO DIFFon 06-17-2022 BASO # 0.1 103/ul Normal 0.0-0.1 [facility] Comment on above: Performed By: #### C BC #### [facility] [address] [place] [address] Dr. Howard Guthrie Basophils/100 WBC (Bld) 1.0 % Normal 0.2-2.0 [facility] Comment on above: Performed By: #### C BC #### [facility] [address] [place] [address] Dr. Howard Guthrie EO # 0.2 103/ul Normal 0.0-0.7 [facility] Comment on above: Performed By: #### C BC #### [facility] Laboratory [address] [place] [address] Dr. Howard Guthrie Eosinophils/100 WBC (Bld) 2.9 % Normal 0.9-7.0 [facility] Comment on above: Performed By: #### C BC #### [facility] [address] [place] [address] Dr. Howard Guthrie Erythrocyte distribution width (RBC) [Ratio] 12.7 % Normal 11.0-15.0 [facility] Comment on above: Performed By: #### C BC #### [facility] [address] [place] [address] Dr. Howard Guthrie Hematocrit (Bld) [Volume fraction] 42.5 % Normal 36.0-48.0 [facility] Comment on above: Performed By: #### C BC #### [facility] [address] [place] [address] Dr. Howard Guthrie Hemoglobin (Bld) [Mass/Vol] 14.7 g/dL Normal 12.0-16.0 [facility] Comment on above: Performed By: #### C BC #### [facility] [address] [place] [address] Dr. Howard Guthrie IG # 0.02 10e3/ul Normal 0.00-0.03 [facility] Comment on above: Performed By: #### C BC #### [facility] [address] [place] [address] Dr. Howard Guthrie IG % 0.3 % Normal 0.0-0.5 [facility] Comment on above: Performed By: #### C BC #### [facility] [address] [place] [address] Dr. Howard Guthrie LYMPH # 2.1 103/ul Normal 1.2-3.8 [facility] Comment on above: Performed By: #### C BC #### [facility] [address] [place] [address] Dr. Howard Guthrie Lymphocytes/100 WBC (Bld) 28.4 % Normal 20.5-60.0 [facility] Comment on above: Performed By: #### C BC #### [facility] [address] [place] [address] Dr. Howard Guthrie MANUAL DIFF REQ NO Normal [facility] Comment on above: Performed By: #### C BC #### [facility] [address] [place] [address] Dr. Howard Guthrie MCH (RBC) [Entitic mass] 33.1 pg Normal 26.7-34.0 [facility] Comment on above: Performed By: #### C BC #### [facility] [address] [place] [address] Dr. Howard Guthrie MCHC (RBC) [Mass/Vol] 34.6 g/dL Normal 29.9-35.2 [facility] Comment on above: Performed By: #### C BC #### [facility] [address] [place] [address] Dr. Howard Guthrie MCV (RBC) [Entitic vol] 95.7 fL Normal 81.0-99.0 [facility] Comment on above: Performed By: #### C BC #### [facility] [address] [place] [address] Dr. Howard Guthrie MONO # 1.0 103/ul Critically high 0.3-0.8 [facility] Comment on above: Performed By: #### C BC #### [facility] [address] [place] [address] Dr. Howard Guthrie Monocytes/100 WBC (Bld) 13.1 % Critically high 1.7-12.0 [facility] Comment on above: Performed By: #### C BC #### [facility] [address] [place] [address] Dr. Howard Guthrie NEUT # 4.0 103/ul Normal 1.4-6.5 [facility] Comment on above: Performed By: #### C BC #### [facility] [address] [place] [address] Dr. Howard Guthrie Neutrophils/100 WBC (Bld) 54.3 % Normal 43.0-75.0 [facility] Comment on above: Performed By: #### C BC #### [facility] [address] [place] [address] Dr. Howard Guthrie Platelet mean volume (Bld) [Entitic vol] 10.0 fL Normal 9.5-13.5 [facility] Comment on above: Performed By: #### C BC #### [facility] [address] [place] [address] Dr. Howard Guthrie PLT 343 103/ul Normal 150-450 [facility] Comment on above: Performed By: #### C BC #### [facility] [address] [place] [address] Dr. Howard Guthrie RBC 4.44 106/ul Normal 4.20-5.40 [facility] Comment on above: Performed By: #### C BC #### [facility] [address] [place] [address] Dr. Howard Guthrie WBC 7.4 103/ul Normal 4.0-11.0 [facility] Comment on above: Performed By: #### C BC #### [facility] [address] [place] [address] Dr. Howard Guthrie D-DIMERon 06-17-2022 D-DIMER 0.43 mg/L FEU Normal <=0.59 [facility] Comment on above: Performed By: #### D DIM #### [facility] [address] [place] [address] Dr. Howard Guthrie D-DIMER COMMENTS SEE BELOW Normal [facility] Comment on above: Result Comment: Incr eases [...] By: #### D DIM #### [facility] [address] [place] [address] Dr. Howard Guthrie ER URINE PROFILEon 3 Bilirubin Ql (U) Negative Normal NEGATIVE [facility] Comment on above: Performed By: #### U MICRO, ERUR #### [facility] [address] [place] [address] Dr. Howard Guthrie Clarity (U) CLEAR Normal CLEAR [facility] Comment on above: Performed By: #### U MICRO, ERUR #### [facility] [address] [address] [address] Howard Guthrie Color (U) LT. YELLOW Normal YELLOW [facility] Comment on above: Performed By: #### U MICRO, ERUR #### [facility] [address] [place] [address] Dr. Howard NICHOLSOND A micrscopic examination will be performed if indicated. Normal [facility] Comment on above: Performed By: #### U MICRO, ERUR #### [facility] [address] [place] [address] Dr. Howard Guthrie Glucose Ql (U) Negative Normal NEGATIVE [facility] Comment on above: Performed By: #### U MICRO, ERUR #### [facility] [address] [place] [address] Dr. Howard Guthrie Hemoglobin Ql (U) SMALL Abnormal NEGATIVE [facility] Comment on above: Performed By: #### U MICRO, ERUR #### [facility] [address] [address] [address] Howard Guthrie Ketones Ql (U) Negative Normal NEGATIVE [facility] Comment on above: Performed By: #### U MICRO, ERUR #### [facility] [address] [address] [address] Howard Guthrie LEUKOCYTES Negative Normal NEGATIVE [facility] Comment on above: Performed By: #### U MICRO, ERUR #### [facility] [address] [place] [address] Dr. Howard Guthrie Nitrite Ql (U) Negative Normal NEGATIVE [facility] Comment on above: Performed By: #### U MICRO, ERUR #### [facility] [address] [place] [address] Dr. Howard Gutrhie pH (U) 7.0 [pH] Normal 5-9 [facility] Comment on above: Performed By: #### U MICRO, ERUR #### [facility] [address] [place] [address] Dr. Howard Guthrie SPEC GRAVITY 1.015 Normal 1.005-<=1.0 25 [facility] Comment on above: Performed By: #### U MICRO, ERUR #### [facility] [address] [place] [address] Dr. Howard Guthrie UA PROTEIN Negative Normal NEGATIVE/ TRACE [facility] Comment on above: Performed By: #### U MICRO, ERUR #### [facility] [address] [place] [address] Dr. Howard Guhtrie UR MICRO IND INDICATED Normal [facility] Comment on above: Performed By: #### U MICRO, ERUR #### [facility] [address] [place] [address] Dr. Howard Guthrie Urobilinogen Qn (U) 0.2 {Abdiaziz'U}/dL Normal 0.2 - 1. 0 [facility] Comment on above: Performed By: #### U MICRO, ERUR #### [facility] [address] [place] [address] Dr. Howard Guthrie PROF 14(COMP METB)on 023 Albumin [Mass/Vol] 3.8 g/dL Normal 3.4-5.0 [facility] Comment on above: Performed By: #### C JORDAN, CMP #### [facility] [address] [place] [address] Dr. Howard Guthrie Albumin/Globulin [Mass ratio] 1.1 {ratio} Normal [facility] Comment on above: Performed By: #### C JORDAN, CMP #### [facility] [address] [place] [address] Dr. Howard Guthrie ALP [Catalytic activity/Vol] 96 U/L Normal 46-116 [facility] Comment on above: Performed By: #### C JORDAN, CMP #### [facility] [address] [address] [address] Howard Guthrie ALT [Catalytic activity/Vol] 19 U/L Normal 14-59 [facility] Comment on above: Performed By: #### C JORDAN, CMP #### [facility] [address] [place] [address] Dr. Howard Guthrie Anion gap [Moles/Vol] 11.2 mmol/L Normal [facility] Comment on above: Performed By: #### C JORDAN, CMP #### [facility] [address] [place] [address] Dr. Howard Guthrie AST [Catalytic activity/Vol] 19 U/L Normal 15-37 [facility] Comment on above: Performed By: #### C JORDAN, CMP #### [facility] [address] [place] [address] Dr. Howard Guthrie Bilirubin [Mass/Vol] 0.5 mg/dL Normal 0.2-1.0 [facility] Comment on above: Performed By: #### C JORDAN, CMP #### [facility] [address] [place] [address] Dr. Howard Guthrie Calcium [Mass/Vol] 8.8 mg/dL Normal 8.5-10.1 [facility] Comment on above: Performed By: #### C JORDAN, CMP #### [facility] [address] [place] [address] Dr. Howard Guthrie Chloride [Moles/Vol] 104 mmol/L Normal 98-107 [facility] Comment on above: Performed By: #### C JORDAN, CMP #### [facility] [address] [place] [address] Dr. Howard Guthrie CO2 [Moles/Vol] 24.1 mmol/L Normal 21.0-32.0 [facility] Comment on above: Performed By: #### C JORDAN, CMP #### [facility] [address] [place] [address] Dr. Howard Guthrie Creatinine [Mass/Vol] 0.73 mg/dL Normal 0.55-1.02 [facility] Comment on above: Performed By: #### C MADM, CMP #### [facility] [address] [address] [address] Howard Guthrie EGFR-AF LIBYAN >60 Normal >=60 [facility] Comment on above: Performed By: #### C MICHAELM, CMP #### [facility] [address] [address] [address] Howard Guthrie EGFR-NON AF LIBYAN >60 Normal >=60 [facility] Comment on above: Performed By: #### C MICHAELM, CMP #### [facility] [address] [address] [address] Howard Guthrie Globulin (S) [Mass/Vol] 3.6 g/dL Normal [facility] Comment on above: Performed By: #### C MICHAELM, CMP #### [facility] [address] [address] [address] Howard Guthrie Glucose [Mass/Vol] 112 mg/dL Critically high 74-106 [facility] Comment on above: Performed By: #### C JORDAN, CMP #### [facility] [address] [address] [address] Howard Guthrie Potassium [Moles/Vol] 3.3 mmol/L Critically low 3.5-5.1 [facility] Comment on above: Performed By: #### C JORDAN, CMP #### [facility] [address] [address] [address] Howard Guthrie Protein [Mass/Vol] 7.4 g/dL Normal 6.4-8.2 [facility] Comment on above: Performed By: #### C MICHAELM, CMP #### [facility] [address] [address] [address] Howard Guthrie Sodium [Moles/Vol] 136 mmol/L Normal 136-145 [facility] Comment on above: Performed By: #### C MICHAELM, CMP #### [facility] [address] [address] [address] Howard Guthrie Urea nitrogen [Mass/Vol] 6.0 mg/dL Critically low 7.0-18.0 [facility] Comment on above: Performed By: #### C MADM, CMP #### [facility] [address] [address] [address] Howard Guthrie Urea nitrogen/Creatinine [Mass ratio] 8.2 mg/mg Normal [facility] Comment on above: Performed By: #### C MICHAELM, CMP #### [facility] [address] [place] [address] Dr. Howard Guthrie TROPONIN, HIGH SENSITIVITYon 06-17-2022 HSTROP 4.6 pg/mL Normal 4.0-51.3 [facility] Comment on above: Result Comment: CUT- OFF POINTS HAVE BEEN ESTABLISHED BASED ON THE FOURTH UNIVERSAL DEFINITIONS OF MYOCARDIAL INFARCTION. THE UPPER REFERENCE LIMIT (URL) OF TROPONIN, DEFINED THE 99TH PERCENTILE OF cTnI DISTRIBUTION IN A REFERENCE POPULATION, HAS BEEN CONFIRMED THE DECISION THRESHOLD FOR [place] DIAGNOSIS. Performed By: #### H STROPN #### [facility] [address] [place] [address] Dr. Howard Guthrie URINE MICROSCOPIC ONLYon BACTERIA TRACE Abnormal NONE SEEN [facility] Comment on above: Performed By: #### U MICRO, ERUR #### [facility] [address] [place] [address] Dr. Howard Guthrie Bacteria identified Cx Nom (U) NOT INDICATED Normal [facility] Comment on above: Performed By: #### U MICRO, ERUR #### [facility] [address] [place] [address] Dr. Howard Guthrie CAST NONE SEEN Normal NONE SEEN [facility] Comment on above: Performed By: #### U MICRO, ERUR #### [facility] [address] [place] [address] Dr. Howard Guthrie Crystals LM Nom (Urine sed) NONE SEEN Normal NONE SEEN [facility] Comment on above: Performed By: #### U MICRO, ERUR #### [facility] [address] [place] [address] Dr. Howard Guthrie Epithelial cells LM Ql (Urine sed) FEW Abnormal NONE SEEN /RARE [facility] Comment on above: Performed By: #### U MICRO, ERUR #### [facility] [address] [place] [address] Dr. Howard Guthrie MUCOUS TRACE Abnormal NONE SEEN [facility] Comment on above: Performed By: #### U MICRO, ERUR #### [facility] [address] [address] [address] Howard Guthrie RBC 2-5 Abnormal 0-2 [facility] Comment on above: Performed By: #### U MICRO, ERUR #### [facility] [address] [address] [address] Howard Guthrie WBC NONE SEEN Normal NONE SEEN [facility] Comment on above: Performed By: #### U MICRO, ERUR #### [facility] [address] [address] [address] Howard Guthrie XR CHEST 1 Von [...] Date: 2022-06-17 12:26 Normal [facility] Tobacco Screening.on 022 Adult depression screening assessment No [facility] 250 DO Work Phone: Tobacco use status [facility]PH[facility] a) Yes [facility] 250 DO Work Phone: Tobacco Screening. Yes [facility] 250 DO Work Phone: Vital Signs Date Time Vital Sign Value Performing Clinician Tonja figueroa 09-13-2023 13:06-0400 Blood Pressure Location Roosevelt Sotelo [facility] 09-13-2023 13:06-0400 Diastolic blood pressure 85 mm[Hg] Roosevelt Sotelo [facility] 09-13-2023 13:06-0400 Heart rate 90 /min Roosevelt Sotelo [facility] 09-13-2023 13:06-0400 SaO2% (BldA) [Mass fraction] 99 % Roosevelt Sotelo [facility] 09-13-2023 13:06-0400 Systolic blood pressure 125 mm[Hg] Roosevelt Sotelo [facility] 08-10-2023 09:19-0400 Blood Pressure Location JES ROLLE [facility] 08-10-2023 09:19-0400 Body temperature 98.24 [degF] JES ELSA [facility] 08-10-2023 09:19-0400 Diastolic blood pressure 78 mm[Hg] JES ELSA [facility] 08-10-2023 09:19-0400 Heart rate 80 /min JES ELSA [facility] 08-10-2023 09:19-0400 Respiratory rate 19 /min JES ELSA [facility] 08-10-2023 09:19-0400 Systolic blood pressure 136 mm[Hg] JES ELSA [facility] 03-22-2023 13:16-0500 Blood Pressure Location Ramone Garcia [facility] 03-22-2023 13:16-0500 Diastolic blood pressure 85 mm[Hg] Ramone Garcia [facility] 03-22-2023 13:16-0500 Heart rate 90 /min Ramone Garcia [facility] 03-22-2023 13:16-0500 SaO2% (BldA) [Mass fraction] 99 % Ramone Garcia [facility] 03-22-2023 13:16-0500 Systolic blood pressure 126 mm[Hg] Ramone Garcia [facility] 12-15-2022 13:20-0400 Body height 165.1 cm Loretta Javier Other [facility] [employer] Other 12-15-2022 13:20-0400 Body mass index (BMI) [Ratio] 23.13 kg/m2 Loretta Javier Other [facility] Other 12-15-2022 13:20-0400 Body temperature 98.1 [degF] Loretta Javier Other [employer] Other 12-15-2022 13:20-0400 Body weight 63.05 kg Loretta Javier Other [employer] Other 12-15-2022 13:20-0400 Diastolic blood pressure 76 mm[Hg] Loretta Javier Other [employer] Other 12-15-2022 13:20-0400 Respiratory rate 18 /min Loretta Javier Other [employer] Other 12-15-2022 13:20-0400 SaO2% (BldA) [Mass fraction] 98 % Loretta Javier Other [employer] Other 12-15-2022 13:20-0400 Systolic blood pressure 128 mm[Hg] Loretta Javier Other [employer] Other 10-14-2022 11:10-0400 Body height 165.1 cm Tanya Glover Other [employer] Other 10-14-2022 11:10-0400 Body mass index (BMI) [Ratio] 23.39 kg/m2 Tanya Glover Other [facility] Other 10-14-2022 11:10-0400 Body temperature 97.8 [degF] Tanya Glover Other [facility] Other 10-14-2022 11:10-0400 Body weight 63.78 kg Tanya Glover Other [facility] Other 10-14-2022 11:10-0400 Diastolic blood pressure 85 mm[Hg] Tanya Glover Other [facility] Other 10-14-2022 11:10-0400 Respiratory rate 18 /min Tanya Glover Other [employer] Other 10-14-2022 11:10-0400 SaO2% (BldA) [Mass fraction] 99 % Tanya Glover Other [facility] Other 10-14-2022 11:10-0400 Systolic blood pressure 143 mm[Hg] Tanya Pangmond Other [facility] Other 06-24-2022 09:32-0400 Body height 165.1 cm No PCP None -[facility] 250 DO Work Phone: 06-24-2022 09:32-0400 Body mass index (BMI) [Ratio] 24.63 kg/m2 No PCP None [facility] 250 DO Work Phone: 06-24-2022 09:32-0400 Body surface area Derived from formula 1.74 m2 No PCP None [facility] 250 DO Work Phone: 06-24-2022 09:32-0400 Body weight 67.13 kg No PCP None [facility] 250 DO Work Phone: 06-24-2022 09:32-0400 Diastolic blood pressure 82 mm[Hg] No PCP None [facility] 250 DO Work Phone: 06-24-2022 09:32-0400 Heart rate 88 /min No PCP None [facility] 250 DO Work Phone: 06-24-2022 09:32-0400 Systolic blood pressure 124 mm[Hg] No PCP None [facility] 250 DO Work Phone: 06-02-2021 15:09-0500 Diastolic blood pressure 98 mm[Hg] No PCP None [facility] 250 DO Work Phone: 06-02-2021 15:09-0500 Systolic blood pressure 142 mm[Hg] No PCP None [facility] 250 DO Work Phone: 06-02-2021 15:03-0500 Body height 165.1 cm No PCP None [facility] 250 DO Work Phone: 06-02-2021 15:03-0500 Body mass index (BMI) [Ratio] 28.29 kg/m2 No PCP None [facility] 250 DO Work Phone: 06-02-2021 15:03-0500 Body surface area Derived from formula 1.85 m2 No PCP None [facility] 250 DO Work Phone: 02-28-2022 15:03-0500 Body weight 77.11 kg No PCP None [facility] 250 DO Work Phone: 06-02-2021 15:03-0500 Diastolic blood pressure 90 mm[Hg] No PCP None [facility] 250 DO Work Phone: 06-02-2021 15:03-0500 Heart rate 92 /min No PCP None [facility] 250 DO Work Phone: 06-02-2021 15:03-0500 Systolic blood pressure 142 mm[Hg] No PCP None [facility] 250 DO Work Phone: Encounters Encounter Date Encounter Type Care Provider Facility Start: 01-07-2024 End: 01-07-2024 ambulatory Roosevelt Sotelo Facility:[facility] Start: 12-17-2023 End: 12-17-2023 ambulatory [facility] Start: 12-14-2023 End: 12-14-2023 ambulatory [facility] Start: 12-02-2023 End: 12-02-2023 Patient encounter procedure SENIOR INFORMATION SECURITY ARCHITECT-C Jes Cruz Work Phone: [facility] [place] Work Phone: Start: 12-02-2023 End: 12-02-2023 ambulatory SENIOR INFORMATION SECURITY ARCHITECT-C Jes Cruz Work Phone: [facility] Work Phone: Start: 11-26-2023 ambulatory Alexandro PARTIDA Facili ty:[facility] [place] Start: 11-25-2023 End: 11-25-2023 ambulatory Alexandro PARTIDA Facility:[id number] Start: 11-01-2023 End: 11-01-2023 Patient encounter procedure SENIOR INFORMATION SECURITY ARCHITECT-Terrie Cruz Work Phone: [facility] [place] Work Phone: Start: 11-01-2023 End: 11-01-2023 ambulatory SENIOR INFORMATION SECURITY ARCHITECT-C Jes Cruz Work Phone: [facility] Work Phone: Start: 10-14-2023 End: 10-14-2023 ambulatory JES ROLLE Facility:[facility] Start: 10-14-2023 End: 10-14-2023 Patient encounter procedure JES ROLLE [facility] Start: 10-12-2023 Non-patient / Non-visit SENIOR INFORMATION SECURITY ARCHITECT-C Jes Cruz Work Phone: [facility] Work Phone: Start: 10-05-2023 End: 10-05-2023 ambulatory Alexandro PARTIDA Facility:[facility] Start: 10-05-2023 End: 10-05-2023 Patient encounter procedure Alexandro PARTIDA [facility] Start: 09-18-2023 End: 09-19-2023 Emergency department patient visit [facility] Start: 09-13-2023 End: 09-13-2023 ambulatory XXXX NONE Facility:[facility] Start: 09-13-2023 End: 09-13-2023 Patient encounter procedure Roosevelt Sotelo [facility] Start: 09-11-2023 Non-patient / Non-visit SENIOR INFORMATION SECURITY ARCHITECT-Terrie Cruz Work Phone: [facility] Work Phone: Start: 08-10-2023 End: 08-10-2023 ambulatory JES ROLLE Facility:[facility] Start: 08-10-2023 End: 08-10-2023 Lab Drop off JES ROLLE [facility] Start: 08-10-2023 End: 08-10-2023 ambulatory JES ROLLE Facility:[facility] [place] Start: 08-10-2023 End: 08-10-2023 Patient encounter procedure JES ROLLE [facility] [place] Start: 06-09-2023 End: 06-09-2023 ambulatory Jes Natasah Anthony Facility:[facility] Start: 04-27-2023 ambulatory Alexandro PARTIDA Facility :[facility] [place] Start: 04-16-2023 End: 04-16-2023 ambulatory Ramone Garcia Facility:[facility] [place] [facility] Start: 04-16-2023 End: 04-16-2023 Patient encounter procedure Ramone Garcia [facility] Start: 04-01-2023 End: 04-01-2023 ambulatory PHYSICIAN NO FAMILY Facility:[facility] Start: 03-22-2023 End: 03-22-2023 ambulatory Ramone Garcia Facility:[facility] [place] [facility] Start: 03-22-2023 End: 03-22-2023 Patient encounter procedure Ramone Garcia [facility] Start: 12-15-2022 End: 12-15-2022 ambulatory Loretta Javier Other [facility] Start: 12-15-2022 Office outpatient visit 25 minutes Loretta Javier [facility] Start: 10-14-2022 End: 10-14-2022 ambulatory Tanya Glover Other [facility] Other Start: 10-14-2022 Office outpatient visit 15 minutes Tanya Glovre [facility] Start: 08-14-2022 ambulatory Ms. Jes Cruz Facility: Start: 08-14-2022 FUV, Provider: Nadia Franks, Status: Pen, Time: 1:00 PM No PCP None [facility] 250 DO Work Phone: Start: 08-06-2022 Rx Renewal No PCP None [facility] 250 DO Work Phone: Start: 06-24-2022 Office outpatient visit 15 minutes No PCP None [facility] 250 DO Work Phone: Start: 06-24-2022 ambulatory Ms. Nadia Morales h Facility: Start: 06-19-2022 End: 06-19-2022 ambulatory PHYSICIAN NO [facility] Work Phone: Start: 06-19-2022 End: 06-19-2022 [facility] Start: 06-17-2022 End: 06-17-2022 ambulatory [place] . Facility: Start: 11-10-2021 ambulatory Ms. Nadia Morales h Facility: Start: 10-27-2021 Rx Renewal No PCP None [facility] 250 DO Work Phone: Start: 06-02-2021 Office outpatient visit 25 minutes No PCP None [facility] 250 DO Work Phone: Procedures Date Procedure Procedure Detail Performing Clinician Start: 12-02-2023 MR lumbar spine wo con SENIOR INFORMATION SECURITY ARCHITECT-Terrie paiz Work Phone: Start: 11-01-2023 Urine culture SENIOR INFORMATION SECURITY ARCHITECTJagruti sotelo Work Phone: Start: 10-05-2023 Cystourethroscopy with dilation [...] 11-01-2023 Bacteria identified in Urine by Culture [facility] Start: 08-14-2022 FUV, Provider: Nadia Franks, Status: Pen, Time: 1:00 PM FUV, Provider: Nadia Franks, Status: Pen, Time: 1:00 PM [facility] 250 DO Work Phone: Start: 11-10-2021 FUV, Provider: Nadia Franks, Status: Pen, Time: 3:00 PM [facility]UV, Provider: Nadia Franks, Status: Pen, Time: 3:00 PM [facility] 250 DO Work Phone: Start: 06-30-2021 FUV, Provider: Nadia Franks, Status: Pen, Time: 8:00 AM [facility]UV, Provider: Nadia Franks, Status: Pen, Time: 8:00 AM [facility] 250 DO Work Phone: Estradiol (E2) [Mass/volume] in Serum or Plasma [facility] Lutropin [Units/volu me] in Serum or Plasma [facility] Immunizations Immunization Date Immunization Notes Care Provider Jennifer lacy 03-25-2021 influenza, injectabl e, quadrivalent, preservative free No PCP None [facility] 01-05-2020 influenza, injectabl e, quadrivalent, preservative free No PCP None [facility] 250 DO Work Phone: 01-06-2019 influenza, injectabl e, quadrivalent, preservative free [facility] Payers Date Payer Category Payer Self-pay [id number] 1970 Unknown [id number] 2.16.840.1.972776.3.579.2. 593 1971 Unknown [id number] .16.840.1.846336.3.579.2. 356 1971 Unknown [id number] 2.16.840.1.104357.3.579.2. 356 1971 Unknown [id number] 2.16.840.1.988106.3.579.2. 356 1971 Unknown [id number] 2.16.840.1.304249.3.579.2. 1286 1971 Unknown [id number] 2.16.840.1.144651.3.579.2. 1286 1971 Unknown [id number] 2.16.840.1.349118.3.579.2. 1971 Unknown [id number] 2.16.840.1.522448.3.579.2. 7 1971 Unknown [id number] 2.16840.1.139654.3.579.2. 1971 Unknown [id number] 2.16.840.1.432429.3.579.2. 727 1971 Unknown [id number] 2.16.840.1.101459.3.579.2. 1971 Unknown [id number] 2.16.840.1.073231.3.579.2. 727 1971 Unknown [id number] 2.16.840.1.824414.3.579.2. 727 1971 Unknown [id number] 2.16.840.1.497372.3.579.2. 727 1971 Unknown [id number] 2.16.840.1.757251.3.579.2. 727 1971 Unknown [id number] 2.16.840.1.207638.3.579.2. 727 1971 Unknown [id number] 2.16.840.1.634223.3.579.2. 727 1959 Medicaid [id number] Private Health Insurance [id number] Unknown [id number] [facility] Unknown [id number] Unknown [id number] 2.16.840.1.095322.3.579.2. 531 Unknown [id number] 2.16.840.1.204799.3.579.2. 531 Unknown [id number] 2.16.840.1.149389.3.579.2. 531 Unknown [id number] 2.16.840.1.302506.3.579.2. 531 Social History Date Type Detail Facility Tobacco smoking stat [facility] Unknown if ever smoked [facility] Start: 1970 Sex Assigned At Female F [facility] Illicit drug use Illicit drug use -Nort h [facility] 250 DO Work Phone: Comment on above: 1 pack per daily.; Start: 05-26-2021 Tobacco smoking stat [facility] Ex-smoker (finding) [facility] Sex Assigned At [facility] Start: 03-22-2023 End: 08-10-2023 Tobacco smoking status Light tobacco smoker (finding) [facility] Tobacco smoking status Never [facility] Medical Equipment Procedure Code Equipment Code Equipment Origin al Text Equipment Identifier Dates Thoracotomy Staple line-reinforcement strip ()[id number] FDA Start: 03-26-2021 Thoracotomy Surgical adhesive/sealant, human-derived ()[id number] FDA Start: 03-26-2021 Goals Date Patient Goal Desired Activity /State Functional Status Date Assessment Result Facility 10-14-2023 Functional Status N/A [facility] 09-13-2023 Functional Status No [facility] 08-10-2023 Functional Status N/A [facility] 03-22-2023 Functional Status No [facility] Clinical Notes 10-14-2022 to 12-14-2023 Note [...] BEDTIME, Disp: , (more content not included)... [facility] 10-14-2023 Hospital Discharge instructions Patient Education [...] including vitamins, herbs, eye drops, creams, and rovf-xwz-fojkebu medicines. Any problems you or family members [...] provider tells you to take them. Taking ayub-swg-yybfgmm medicines, vitamins, herbs, and supplements. Surgery safety [...] provider. Document Revised: 10/25/2020 Document Reviewed: 10/25/2020 [employer] Patient Education 2022 [employer] Follow Up Care 10/05/2023 10:22:18 With:[facility] Address: [address] [place] [address] Business (1) When: Unknown Comments:for procedure as scheduled [facility] 10-14-2023 Note Patient Education Obstetrics and Gynecology [...] including vitamins, herbs, eye drops, creams, and mglv-nue-wstibeh medicines. ? Any problems you or family [...] tells you to take them. ? Taking yara-fji-iilecih medicines, vitamins, herbs, and supplements. Surgery safety [...] intended to replace (more content not included)... [facility] 08-10-2023 Evaluation + Plan note Diagnostic Tests PendingUrine Cytology ([facility]) 08/10/23 [facility] 08-10-2023 Hospital Discharge instructions Patient Education [...] require a prescription. You can also purchase mtdc-ckl-ymhbvzr medicines. Medicines may have nicotine in them [...] and encouragement. Call telephone quitlines, such as 8-276-CXFD-NOW, reach out to support groups, or work [...] provider. Document Revised: 03/13/2022 Document Reviewed: 03/13/2022 [employer] Patient Education 2022 [employer] 08/10/2023 10:11:31 Cystoscopy Cystoscopy Cystoscopy is [...] including vitamins, herbs, eye drops, creams, and lhxw-gnn-ajpphcn medicines. Any problems you or family members [...] provider tells you to take them. Taking wzlc-qyq-gsmgcrg medicines, vitamins, herbs, and supplements. Tests You [...] Follow these instructions at home: Medicines Take zvce-lrx-lhnmvne and prescription medicines only as told by [...] provider. Document Revised: 12/03/2021 Document Reviewed: 11/01/2020 [employer] Patient Education 2022 [employer]. Follow Up Care 04/30/2023 12:48:57 With:ELSA MOSES, JES Akhtar, URL Address: [address] [place] [id number] [id number] When: Unknown [facility] 08-10-2023 Note Chief Complaint Jes [...] has had dark urine. Bladder/renal US 04/01/23 [facility] - No renal mass, stone or hydro. Unremarkable bladder. KUB 04/01/23 [facility] - No obvious urinary tract calculi. AMOL 08/02/23 [facility] - No renal stones or hydro. Unremarkable bladder. KUB 08/02/23 [facility] - No urinary tract calculi. Educated pt [...] upon conclusion of the workup. -CTU at [facility] now -Urine sample to be sent [...] pain (R10.9: Unspecified abdominal pain) AMOL/KUB 08/02/23 [facility] - neg. States pain is in [...] Cyst of kidney, acquired) Bladder/renal US 04/01/23 [facility] - Small L renal cyst. 06/09/23 - BUN 14. Cr 0.63. GFR >60. -Simple cysts do not require follow-up Ordered: CT Urogram 5. Smoker (F17.200: Nicotine dependence, unspec (more content not included)... [facility] Comment on above: Result Comment: Elec tronically Signed By: JES ROLLE PA-C\.br\Date and Time Signed: 08/10/23 10:56 EDT\.br\Electronically Co-Signed By: Mirela Lozoya\.br\Date and Time Co-Signed: 08/10/23 10:16 EDT 04-17-2023 Note Echocardiology Procedure Exam Date/Time Accession # Ordering Dr. De La Vega Transthoracic 04/16/2023 14:37 EST [id number] Jose PATRICK, Ramone Butt CPT code 91540 47508 Reason for Exam (Echo Transthoracic Complete) I25.10;CAD Coronary artery disease Report Version: 1 Study ID: [id number] Adult Echocardiogram Report Name: ISELA CRAIG Study Date: 04/16/2023, 1: 10 PM Patient Location: [facility] : 1970 (MM/DD/YYYY) Gender: Female Age: [...] Signed by: Ramone Garcia MD Transcribed by: [facility] Technologist: GARRY Bravo [facility] 12-15-2022 Evaluation note Encounter Date Diagnosis [...] understanding and is agreeable to treatment plan [facility] Other 07-12-2023 Evaluation note* Encounter Date Diagnosis [...] - Z20.822) Oct, Bronchitis (ICD-10 - J40) [facility] Other Evaluation + Plan note Future Appointments Appointment Date:05/13/2023 03:45:00 PM Scheduled Provider:Ramone Garcia MD Location:[facility] Appointment Type:Cardiology Follow Up (FT) Future Scheduled Tests Radiology* NM Myocardial Spect Rest/Stress 1 Day 03/22/23 * Echo Tran[facility]horacic [facility] App[facility]ments Appointment Date:05/13/2023 03:45:00 PM Scheduled Provider:Ramone Garcia MD Location:.Cardiology Clinic Appointment Type:[facility] ([facility]) [facility] Future Appointments Appointment Date:09/27/2023 09:30:00 AM Scheduled Provider: Location:[facility] Appointment Type:Urology CALL PAT FT Appointment Date:10/05/2023 09:00:00 AM Scheduled Provider: Location:[facility] Appointment Type:Urology FT Appointment Date:12/13/2023 01:00:00 PM Scheduled Provider:Roosevelt Sotelo PA-C Location:[facility] Clinic Appointment Type:Cardiology Follow Up (FT) Future Scheduled Tests Radiology* US Carotid Duplex Bilateral [facility] Future Appointments Appointment Date:10/14/2023 12:40:00 PM Scheduled Provider:JES ROLLE PA-C Location:[facility] Appointment Type:URO Complex Office Visit Appointment Date:12/13/2023 01:00:00 PM Scheduled Provider:Roosevelt Sotelo PA-C Location:[facility] Clinic Appointment Type:Cardiology Follow Up (FT) Future Scheduled Tests Radiology* US Carotid Duplex Bilateral [facility]23 [facility] Future Appointments Appointment Date:11/26/2023 09:30:00 AM Scheduled Provider: Location:[facility] Appointment Type:URO Nurse Visit Appointment Date:12/13/2023 01:00:00 PM Scheduled Provider:Roosevelt Sotelo PA-C Location:[facility] Appointment Type:Cardiology Follow Up (FT) Appointment Date:12/13/2023 01:45:00 PM Scheduled Provider:Alexandro PARTIDA MD Location:[facility] Appointment Type:URO Office Visit Future Scheduled Tests Radiology* US Carotid Duplex Bilateral 09/14/23 [facility] evaluation noteNo assessment information available [facility] Work Phone: [employer] general Narrative - Reported* Type Description Date Surgical History hysterectomy Surgical History [facility] Other History of Present illness Narrative* The [...] medication regimen. She denies medication side effects. [facility] 250 DO Work Phone: Hospital course Narrative No data available for this section [facility] Discharge instructions No data available for this section [facility] No data available for this section [facility] Assessments No Assessments Information Available Family [...] dyspnea. * Patient was recently hospitalized at [facility]. The patient was seen in Cardiology consult with subsequent cardiovascular management by [facility]. Hospitalization records have been reviewed. * Reason for Cardiology Consultation: chest pain (presented with spontaneous PTX) * Consulting Bulk Plant Supervisor: Dr. Lopez * Cardiovascular testing: cardiac cath [...] evaluation. * Last week she presented to [facility] due to chest pain and dizziness. [...] and fluttering . 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 Due to blood pressure and palpitations will resume prior dose of diltiazem, symptoms have been quiescent with that treatment. She is in agreement to proceed with treatment plan as outlined. Chief Complaint and Reason for Visit Chief Complaint Other chest pain Ot er chest pain;Primary hyperten Chief Complaint R23.2-pass [...] Status: Active Member Role Status Dates Jes Natasha Cruz , SENIOR INFORMATION SECURITY ARCHITECT-C Primary Care Prov ider Active Team Status: Inactive Member Role Status Dates Jes Natasha Cruz , SENIOR INFORMATION SECURITY ARCHITECT-C Primary Care Provider, Attending Provider Active Start: November 01, 2023 End: November 01, 2023 Team Status: Active Member Role Status Dates Jes Kaur Serina worrell , SENIOR INFORMATION SECURITY ARCHITECT-C Primary Care Provider Active Start: September 10 024 Ronaldo Ball , DO Attending Provider Active Sta rt: September 11, 2023 Team Status: Active Member Role Status Dates Jes Natasha Serina worrell , SENIOR INFORMATION SECURITY ARCHITECT-C Primary Care Provider Active Start: October 11 024 Ronaldo Ball , DO Attending Provider Active Sta rt: October 12, 2023 Team Status: Inactive Member Role Status Dates Jes Natasha Cruz , SENIOR INFORMATION SECURITY ARCHITECT-C Primary Care Provider, Attending Provider Active Start: [...] section and content) DATE CREATED AUTHOR 06/24/2022 [employer] DATE CREATED AUTHOR AUTHOR'S ORGANIZ ATION 07/29/2022 [facility] DATE CREATED AUTHOR AUTHOR'S ORGANIZ ATION 08/16/2022 [facility] DATE CREATED AUTHOR AUTHOR'S ORGANIZ ATION 09/19/[address] [facility] DATE CREATED AUTHOR AUTHOR'S ORGANIZ ATION 10/21/2023 [facility] DATE CREATED AUTHOR AUTHOR'S ORGANIZ ATION 12/22/2023 [facility] DATE CREATED AUTHOR AUTHOR'S ORGANIZ ATION 01/07/[address] [facility] DATE CREATED AUTHOR AUTHOR'S ORGANIZ ATION 01/09/2024 [facility] REASON FOR VISIT (unrecogniz ed [...] BE BASED ON THE PRIMARY CLINICAL RECORDS. [facility] [employer] [facility]. provides no warranty or guarantee of the accuracy or completeness of information in this document.
== END 2024-01-12 07:39 | disposition home or self-care (01) ==
LOC: MRI 07:38
PROVIDERS: PCP Nurse Practitioner Family; Visit Provider Nurse Practitioner Family
DX: R20.2 Paresthesia of skin (principal)
CPT/HCPCS: 72146

== ENCOUNTER 2024-01-30 13:22 | Emergency (ER) | payer OTHER, SELFPAY ==
[2024-01-30 13:48] VITALS: BP 103/70; PULSE 82; TEMP 36.7; O2SAT 97; BMI 26.6
--- OUTSIDE RECORDS SUMMARY | 2024-01-30 13:53 | XMS_ITS | CCD ---
Author Organization [facility] Providers Care Photogeologist Name Role Phone None, No PCP Unavailable [...] Unavailable JES CRUZ Primary Care Physician [phone] CUATE KELLY Attending Unavailable JES CRUZ Primary [...] Care U navailable OVITT, CHLOE Referring Unavailable OVITT, CHLOE Attending Unavailable Roosevelt Sotelo Admitting Unavailable Roosevelt Sotelo Attending Unavailable Roosevelt Sotelo Referring Unavailable ELSA, JES Akhtar Admitting Unavailable ELSA, JES Akhtar Attending Unavailable Ramone Garcia Attending Unavaila JES Ramesh Referring Unavailab le Ramone Garcia Admitting Unavaila ble Alexandro PARTIDA Attending Unavailable PARTIDA, Alexandro Hernandez Attending Unavailable JAQUAN, Alexandro Hernandez Attending Unavailable PARTIDA, Alexandro Hernandez Attending Unavailable ELSA, JES Akhtar Attending Unavailable CRUZ, JES Falcon Referring Unavailab le ELSA, JES Akhtar Attending Unavailable Alexandro PARTIDA Attending Unavailable PARTIDA, Alexandro Hernandez Attending Unavailable NONE, XXXX Referring Unavailable Roosevelt Sotelo Attending Unavailable JAQUAN, Alexandro Hernandez Attending Unavailable PARTIDA, Alexandro Hernandez Referring Unavailable Alexandro PARTIDA Admitting Unavailable Ramone Garcia Referring Unavaila ble Ramone Garcia Admitting Unavaila ble Ramone Garcia Consulting Unavaila ble Ramone Garcia Attending Unavaila ble Ramone Garcia Consulting Unavaila ble Ramone Garcia Consulting Unavaila ble Unavailable Unavailable Unavailable Allergies Allergy Classification Reported Allergen(s) Allergy Type Date of Onset Reaction(s) Facility Opioid Agonists (1 source) Codeine; Translations: [codeine] Drug Allergy Eruption of skin present [facility] (20 sources) Codeine; Translations: [codeine] Drug Allergy 09-03-2012 hives, Eruption of skin present [facility] Medications Current Medications Medication Drug Class(es) Dates Sig (Normalized) Sig (Original) aspirin 81 mg delayed release oral tablet (18 sources) Platelet Aggregation Inhibitor, Nonsteroidal Anti-inflammatory Drug [...] Days Not-Taking atorvastatin 40 mg oral tablet (18 sources) HMG-CoA Reductase Inhibitor Start: 03-22-2023 take 1 tablet by mouth once daily atorvastatin 40 mg Tab 40 mg = 1 tab(s), Oral, Daily, # 30 tab(s), Refills(s) 3, Pharmacy: [facility] 1155, 164, cm, 03/22/23 13:24:00 EST, Height/Length Dosing, 64.7, kg, 03/22/23 13:24:00 EST, Weight Dosing Start Date: 03/22/23 Status: Ordered Start: 04-04-2021 take 20 mg by mouth once daily in the evening Atorvastatin Active 20 MG PO Every evening April 04, 2021 1:00am busPIRone hydrochloride 15 mg oral tablet (16 sources) Start: 01-17-2020 take 1 mg by [...] Not-Takin g clonazePAM 0.5 mg oral tablet (8 sources) Benzodiazepine Start: 03-22-2023 take 0.25 mg by mouth twice daily Klonopin 0.5 mg Tab 0.25 mg = 0.5 tab(s), Oral, BID, Refills(s) 0 Start Date: 03/22/23 Status: Ordered cyclobenzaprine hydrochloride 5 mg oral tablet (13 sources) Muscle Relaxant Start: 10-19-2019 End: 03-24-2021 [...] 2019 12:00am October 19, 2019 12:57pm Motrin (13 sources) Nonsteroidal Anti-inflammatory Drug Start: 01-17-2020 take [...] mononitrate 30 mg extended release oral tablet (18 sources) Nitrate Vasodilator Start: 03-22-2023 take 1 tablet by mouth once daily in the morning isosorbide mononitrate 30 mg ER Tab 30 mg = 1 tab(s), Oral, qAM, # 30 tab(s), Refills(s) 3, Pharmacy: [facility] 1155, 164, cm, 03/22/23 13:24:00 EST, Height/Length Dosing, 64.7, kg, 03/22/23 13:24:00 EST, Weight Dosing Start Date: 03/22/23 Status: Ordered Start: 04-04-2021 take 60 mg by mouth once daily Isosorbide Mononitrate Active 60 MG PO Daily April 04, 2021 1:00am lamoTRIgine 25 mg chewable tablet (13 sources) Mood Stabilizer, Anti-epileptic Agent Start: 01-17-2020 [...] Dec, Active mirtazapine 7.5 mg oral tablet (2 sources) Start: 10-14-2023 take 1 tablet by mouth once daily mirtazapine 7.5 mg oral tablet 7.5 mg = 1 tab(s), Oral, Daily, Refills(s) 0 Start Date: 10/14/23 Status: Ordered naltrexone 380 mg injection (2 sources) Opioid Antagonist Start: 10-14-2023 Vivitrol 380 mg intramuscular injection, extended release Refills(s) 0 Start Date: 10/14/23 Status: Ordered nicotine 2 mg chewing gum (7 sources) Cholinergic Nicotinic Agonist Start: 10-14-2023 nicotine 2 mg Oral transmucosal Gum Refills(s) 0 Start Date: 10/14/23 Status: Ordered Start: 06-02-2021 apply 1 dose transde rmal route once daily EQ Nicotine 21 MG/24HR Transdermal Patch 24 Hour APPLY 1 PATCH DAILY DIRECTED. Quantity: 30 Refills: 1 Ordered: 02-Jun-2021 Migel Peter APRN-LOCKSTITCH TOPSTITCHERNadia Start : 02-Jun-2021 Active Start: 01-09-2019 End: 10-19-2019 Nicotine Discontinued 1 EACH TRANSDERML Daily 10 09January 09, 2019 12:00am October 19, 2019 12:57pm nitroglycerin 0.4 mg sublingual tablet (8 sources) Nitrate Vasodilator Start: 04-04-2021 Nitroglyce rin (Nitrostat) 0.4 mg tablet, sublingual Active 0.4 MG SUBLINGUAL Q5M April 04, 2021 1:00am do not exceed 3 doses per episode olanzapine (13 sources) Atypical Antipsychotic Start: 01-17-2020 olanzap ine [...] Nocturia, # 60 tab(s), Refills(s) 3, Pharmacy: [facility] 1155, 165, cm, 01/17/20 11:18:00 EDT, Height/Length Dosing, 88, kg, 01/17/20 11:18:00 EDT, Weight Dosing Start Date: 02/08/20 Status: Ordered pantoprazole 40 mg extended release oral tablet (8 sources) Proton Pump Inhibitor Start: 01-17-2020 take 1 mg by mouth once daily pantoprazole 40 mg Oral EC Tab mg tab(s), Oral, Daily, Refills(s) 0 Start Date: 01/17/20 Status: Ordered Prazosin (11 sources) alpha-Adrenergic Malinda Start: 01-17-2020 prazosin Oral, TID, Refills(s) 0 Start Date: 01/17/20 Status: Ordered Start: 10-19-2019 End: 03-24-2021 Prazosin Discontinued 1 MG P O As Directed October 19, 2019 12:00am March 24, 2021 4:09pm propranolol hydrochloride 10 mg oral tablet (2 sources) beta-Adrenergic Malinda Start: 10-14-2023 propranolol 10 mg Tab Refills(s) 0 Start Date: 10/14/23 Status: Ordered sertraline 100 mg oral tablet (8 sources) Serotonin Reuptake Inhibitor Start: 03-22-2023 take 1 tablet by mouth once daily Zoloft 100 mg Tab 100 mg = 1 tab(s), Oral, Daily, # 30 tab(s), Refills(s) 0 Start Date: 03/22/23 Status: Ordered Vitamin D3 50,000 intl units oral capsule (6 sources) Start: 08-10-2023 Vitamin D3 50,000 intl units oral capsule 1,250 mcg = 1 cap(s) Start Date: 08/10/23 Status: Ordered Completed/Discontinued Medications Medication Drug Class(es) Dates Sig (Normalized) Sig (Original) [id number] 200 actuat albuterol 0.09 mg/actuat metered dose [...] procedure, # 2 tab(s), Refills(s) 0, Pharmacy: [facility], 164, cm, 08/10/23 9:37:00 EDT, Height/Length [...] Start: 06-02-2021 take 1 capsule by mo uth once daily dilTIAZem HCl ER Coated Beads 120 MG Oral Capsule Extended Release 24 Hour TAKE 1 CAPSULE ONCE DAILY. Quantity: 30 Refills: 3 Ordered: 02-Jun-2021 Migel Peter LAURENadia Start : 02-Jun-2021 Active esomeprazole 40 mg delayed release oral capsule (4 sources) Proton Pump Inhibitor Start: 06-24-2022 take 1 capsule by mouth once daily Esomeprazole Magnesium 40 MG Oral Capsule Delayed Release Take one capsule daily Quantity: 30 Refills: 0 Ordered: 13-Aug-2022 Migel Peter LAURENadia Start : 24-Jun-2022 Active lisinopril 10 mg [...] Date Documented Da te Episodic/Chronic Abdominal pain (11 sources) Abdominal pain; Translations: [Unspecified abdominal pain] Onset: 08-10-2023 01-17-2020 Episodic Adjustment disorders (3 sources) Complicated grieving; Translations: [Adjustment disorder with depressed mood] 01-06-2019 Chronic Adjustment disorders (1 source) Complicated grieving; Translations: [Complicated bereavement] Episodic Anxiety disorders (11 sources) Anxiety; Translations: [Anxiety disorder, unspecified] Onset: 06-09-2023 03-18-2023 Chronic Calculus of urinary tract (8 sources) History of calculus of kidney; Translations: [...] Episodic Coronary atherosclerosis and other heart disease (19 sources) Coronary atherosclerosis; Translations: [Coronary atherosclerosis of [place] coronary artery] 04-03-2021 Chronic Disorders of lipid metabolism (6 sources) Mixed hyperlipidemia; Translations: [Mixed hyperlipidemia] Onset: 11-01-2023 Chronic Essential hypertension (14 sources) Benign hypertension; Translations: [Benign essential hypertension] Onset: 11-01-2023 03-18-2023 Chronic Genitourinary symptoms and ill-defined conditions (20 sources) Incontinence; Translations: [Urge incontinence of urine] Onset: 08-10-2023 01-17-2020 Chronic Genitourinary symptoms and ill-defined conditions (20 sources) Blood in urine; Translations: [Microscopic hematuria] Onset: 04-01-2023 01-17-2020 Episodic Headache; including migraine (1 source) Headache; including migraine; Translations: [Headache, unspecified] Onset: 09-18-2023 Mood disorders (16 sources) Major depressive disorder; Translations: [Major depressive [...] Chronic Other diseases of bladder and urethra (2 sources) Overactive bladder 10-14-2023 Chronic Other diseases of kidney and ureters (1 source) Acquired renal cyst without neoplastic change; Translations: [Cyst of kidney, acquired] Onset: 08-10-2023 Episodic Other diseases of kidney and ureters (6 sources) Cyst of kidney 08-10-2023 Episodic Other [...] Spondylosis; intervertebral disc disorders; other back problems (14 sources) Low back pain; Translations: [Radiculopathy, lumbar [...] [Syncope and collapse] Onset: 09-13-2023 Episodic Unclassified (8 sources) Finding of sensation of bladder 02-08-2020 Unclassified (1 source) EMS Onset: 09-18-2023 Unclassified (1 source) Low back pain, unspecified; Translations: [Low back pain, unspecified] Onset: 12-02-2023 Urinary tract infections (8 sources) Chronic interstitial cystitis 02-08-2020 Chronic Past or Other Problems Problem Classification Problem Date Documented Date Episodic/Chronic Chronic obstructive pulmonary disease and bronchiectasis (8 sources) Chronic obstructive pulmonary disease and bronchiectasis 03-18-2023 Nutritional deficiencies (1 source) Iron deficiency; Translations: [Iron deficiency] Onset: 06-09-2023 Episodic Other aftercare (1 source) Other skilled nursing (current) drug therapy; Translations: [Other terminal manager (current) drug therapy] Onset: 06-09-2023 Episodic Unclassified (1 source) Contact with and (suspected) exposure to covid-19 Z20.822 Unclassified (8 sources) Bipolar (qualifier value) 03-18-2023 Results Test Name Value Interpretation Reference Range Facility US Carotid Duplex Bilateralo n 01-12-2024 US Carotid Duplex Bilateral Exam Date/Time: 01/07/2024 10:32 EDT Reason for Exam: syncope;Other (please specify) Report IMPRESSION: LESS THAN 50% STENOSIS PREDICTED OF THE BILATERAL INTERNAL CAROTID ARTERIES. ANTEGRADE FLOW OF BOTH VERTEBRAL ARTERIES. CLINICAL HISTORY: syncope COMPARISON: None available. COMMENT: No significant plaque identified. There is antegrade blood flow in the right and left vertebral arteries in the neck. On Doppler images, the peak systolic velocity measurements in centimeters per second are as follows: Right proximal common carotid artery is 91.9 / 14.3, right distal common carotid artery is 75.2 / 23.6, right proximal internal carotid artery is 69.6 / 21.7, right mid internal carotid artery is 65.9 / 22.4, right distal internal carotid artery is 55.3 / 21.1, right external carotid artery is 69.0 cm/s, left proximal common carotid artery is 87.0 / 22.4, left distal common carotid artery is 67.7 / 24.9, left proximal internal carotid artery is 59.6 / 22.4, left mid internal carotid artery is 59.0 / 27.3, left distal internal carotid artery is 58.4 / 25.5, left external carotid artery is 61.5 cm/s. The peak systolic internal carotid to common carotid artery ratio on the right is 0.9 and on the left is 0.9. Optimization of duplex velocity criteria for diagnosis of internal carotid artery (ICA) stenosis: A report of the Intersocietal Accreditation Commission (IAC) Vascular Testing Division Carotid Diagnostic Criteria Committee. Vascular Medicine 2020; https://journals.sagep ub.com/doi/full/10.117 7/7165728J799888214 Ordering Provider: Roosevelt Sotelo FINAL REPORT Dictated: 01/12/2024 1:18 pm Tulio Delgado DO Signed (Electronic Signature): 01/12/2024 1:18 pm Signed by: Tulio Delgado DO Transcribed by: CASEY Technologist: HW Technical Comments Velocities Right Vert. Antegrade Yes Technical Comments Velocities Left Vert. Antegrade Yes Normal [facility] 36on 01-06-2024 36 LVM for pt to notify. Normal [facility] Orders Onlyon 01-06-2024 Orders Only [id number] Julianne Craig 1970 F Date Provider Department Center 01/06/2024 [facility] SURG [place] Family History Problem Relation Age of Onset Coronary artery disease Mother Hypertension Mother Other Father Hypertension Father Other Daughter Comments: 05/2023 drug overdose Family Status - Relation Status Age at Mother Father Daughter Normal [facility] 36on 01-05-2024 36 Pt called back stati ng that she had taken the medication prior to her original MRI that was scheduled. Per pt, [place] had a scheduling mix up. Pt was rescheduled for today. Pt states that she was going to try to do MRI without medication, but could not. Pt did say she had her CT done. [facility] Orders Onlyon 01-05-2024 Orders Only [id number] Julianne Craig 1970 F Date Provider Department Center 01/05/2024 [facility] SURG [place] Family History Problem Relation Age of Onset Coronary artery disease Mother Hypertension Mother Other Father Hypertension Father Other Daughter Comments: 05/2023 drug overdose Family Status - Relation Status Age at Mother Father Daughter [facility] 36on 12-22-2023 36 Pt called and LVM requesting CT and MRI orders be faxed to [place]. Pt has existing CT and MRI scheduled here at [facility]. I called and LVM with pt to notify of orders faxed to [place], that she will need to bring disc of imaging to her follow up visit with Chloe Castillo CNP and to call [facility] radiology to cancel appointments. Follow up visit date and time and radiology scheduling number provided in VM. Normal [facility] Consulton 12-14-2023 Consult [id number] RafaJulianne Butts 1970 F Date Provider Department Center 12/14/2023 [facility] SURG Second Fl Family History Problem Relation Age of Onset Coronary artery disease Mother Hypertension Mother Other Father Hypertension Father Other Daughter Comments: 05/2023 drug overdose Family Status - Relation Status Age at Mother Father Daughter Level of Service:32520 [place] OFFICE/OUTPATIENT NEW MODERATE MDM 45 MINUTES Reason for Visit and Comments: Consult [514] - broken screw from past surgery. Pt will bring disc of Xr and MRI with her. [facility] MR lumbar spine wo conon MR lumbar spine wo con [place] [address] MRI Report Signed Patient: Isela Craig MR#: [id number] : 1970 Acct:[id number] Age/Sex: 53 / F ADM Date: 12/02/23 Loc: [facility] Room: Type: [facility] CLI Attending Dr: Jes Cruz MELTING [employer]IMMER-C Copies to: Jes Cruz Ordering Provider: Jes [...] Bjorn Rdz M.D.12/02/2023 3:22 PM Dictation Location: [place] [address] Transcribed By: [facility] 12/02/23 1522 Dictated By: Bjorn Rdz II, MD 12/02/23 1512 Signed By: 12/02/23 1522 Normal [facility] Alanine aminotransferase [En zymatic activity/volume] in Serum or PlasmaOrdered By: Jes Cruz on 11-01-2023 ALT [Catalytic activity/Vol] 17 U/L Normal 7-52 [facility] Comment on above: Order Comment: Reaso n for Exam Primary hypertension Reason for Exam Low iron Reason for Exam Primary hypertension;Hypertriglyceridemia Reason for Exam Hot flashes Reason for Exam Vitamin D deficiency Performed By: #### C BC, TSH3, [id number], CMP, SHAMA, FE and TIBC, LIPID, FSH, T3F, CUU, [id number], UA #### [facility] [address] [place] [address] [place] #### ESTRADIOL, LH #### [facility] , Albumin [Mass/volume] in Ser um or Plasma by Bromocresol green (BCG) dye binding methoOrdered By: Jes Cruz on 11-01-2023 Albumin BCG dye [Mass/Vol] 4.3 g/dL 3.5-5.7 [facility] Alkaline phosphatase [Enzyma tic activity/volume] in Serum or PlasmaOrdered By: Jes Cruz on 11-01-2023 ALP [Catalytic activity/Vol] 87 U/L Normal 34-104 [facility] Comment on above: Order Comment: Reaso n for Exam Primary hypertension Reason for Exam Low iron Reason for Exam Primary hypertension;Hypertriglyceridemia Reason for Exam Hot flashes Reason for Exam Vitamin D deficiency Performed By: #### C BC, TSH3, [id number], CMP, SHAMA, FE and TIBC, LIPID, FSH, T3F, CUU, [id number], UA #### [facility] [address] [place] [address] [place] #### ESTRADIOL, LH #### [facility] , Aspartate aminotransferase [ Enzymatic activity/volume] in Serum or PlasmaOrdered By: Jes Cruz on 11-01-2023 AST [Catalytic activity/Vol] 13 U/L Normal 13-39 [facility] Comment on above: Order Comment: Reaso n for Exam Primary hypertension Reason for Exam Low iron Reason for Exam Primary hypertension;Hypertriglyceridemia Reason for Exam Hot flashes Reason for Exam Vitamin D deficiency Performed By: #### C BC, TSH3, [id number], CMP, SHAMA, FE and TIBC, LIPID, FSH, T3F, CUU, [id number], UA #### [address] #### ESTRADIOL, LH #### [facility] , Automated basophil %Ordered By: Jes Cruz on 11-01-2023 Basophils/100 WBC (Bld) 1.1 % Normal . [facility] Comment on above: Order Comment: Reaso n for Exam Primary hypertension Performed By: #### C BC, TSH3, [id number], CMP, SHAMA, FE and TIBC, LIPID, FSH, T3F, CUU, [id number], UA #### [address] #### ESTRADIOL, LH #### [facility] , Automated basophil countOrde red By: Jes Cruz on 11-01-2023 Basophils (Bld) [#/Vol] 0.1 10*3/uL Normal 0.0-0.2 [facility] Comment on above: Order Comment: Reaso n for Exam Primary hypertension Result Comment: PERF ORMED BY: [place] [address] PATHOLOGIST MARBLEIZING MACHINE TENDER PALOMO WESLEY M.D. Performed By: #### C BC, TSH3, [id number], CMP, SHAMA, FE and TIBC, LIPID, FSH, T3F, CUU, [id number], UA #### [facility] [address] [place] [address] [place] #### ESTRADIOL, LH #### [facility] , Automated blood monocyte cou ntOrdered By: Jes Cruz on 11-01-2023 Monocytes (Bld) [#/Vol] 0.8 10*3/uL Normal 0.0-0.8 [facility] Comment on above: Order Comment: Reaso n for Exam Primary hypertension Performed By: #### C BC, TSH3, [id number], CMP, SHAMA, FE and TIBC, LIPID, FSH, T3F, CUU, [id number], UA #### [facility] [address] [place] [address] #### ESTRADIOL, LH #### [facility] , Automated eosinophil %Ordere d By: Jes Cruz on 11-01-2023 Eosinophils/100 WBC (Bld) 1.5 % Normal . [facility] Comment on above: Order Comment: Reaso n for Exam Primary hypertension Performed By: #### C BC, TSH3, [id number], CMP, SHAMA, FE and TIBC, LIPID, FSH, T3F, CUU, [id number], UA #### [address] #### ESTRADIOL, LH #### [facility] , Automated eosinophil countOr dered By: Jes Cruz on 11-01-2023 Eosinophils (Bld) [#/Vol] 0.1 10*3/uL Normal 0.0-0.45 [facility] Comment on above: Order Comment: Reaso n for Exam Primary hypertension Performed By: #### C BC, TSH3, [id number], CMP, SHAMA, FE and TIBC, LIPID, FSH, T3F, CUU, [id number], UA #### [facility] [address] [place] [address] [place] #### ESTRADIOL, LH #### [facility] , Automated monocyte %Ordered By: Jes Cruz on 11-01-2023 Monocytes/100 WBC (Bld) 10.8 % Normal . [facility] Comment on above: Order Comment: Reaso n for Exam Primary hypertension Performed By: #### C BC, TSH3, [id number], CMP, SHAMA, FE and TIBC, LIPID, FSH, T3F, CUU, [id number], UA #### [facility] [address] [place] [address] #### ESTRADIOL, LH #### [facility] , Automated neutrophil %Ordere d By: Jes Cruz on 11-01-2023 Neutrophils/100 WBC (Bld) 58.6 % Normal . [facility] Comment on above: Order Comment: Reaso n for Exam Primary hypertension Performed By: #### C BC, TSH3, [id number], CMP, SHAMA, FE and TIBC, LIPID, FSH, T3F, CUU, [id number], UA #### [facility] [address] [place] [address] #### ESTRADIOL, LH #### [facility] , Bilirubin Test strip Ql (U)O rdered By: Jes Cruz on 11-01-2023 Bilirubin Ql (U) Negative Negative [facility] Bilirubin.total [Mass/volume ] in Serum or PlasmaOrdered By: Jes Cruz on 11-01-2023 Bilirubin [Mass/Vol] 0.4 mg/dL Normal 0.3-1.0 [facility] Comment on above: Order Comment: Reaso n for Exam Primary hypertension Reason for Exam Low iron Reason for Exam Primary hypertension;Hypertriglyceridemia Reason for Exam Hot flashes Reason for Exam Vitamin D deficiency Performed By: #### C BC, TSH3, [id number], CMP, SHAMA, FE and TIBC, LIPID, FSH, T3F, CUU, [id number], UA #### [facility] [address] [place] [address] [place] #### ESTRADIOL, LH #### [facility] , Calcium [Mass/volume] in Ser um or PlasmaOrdered By: Jes Cruz on 11-01-2023 Calcium [Mass/Vol] 9.4 mg/dL Normal 8.6-10.3 [facility] Comment on above: Order Comment: Reaso n for Exam Primary hypertension Reason for Exam Low iron Reason for Exam Primary hypertension;Hypertriglyceridemia Reason for Exam Hot flashes Reason for Exam Vitamin D deficiency Performed By: #### C BC, TSH3, [id number], CMP, SHAMA, FE and TIBC, LIPID, FSH, T3F, CUU, [id number], UA #### [facility] [address] [place] [address] [place] #### ESTRADIOL, LH #### [facility] , Carbon dioxide, total [Moles /volume] in Serum or PlasmaOrdered By: Jes Cruz on 11-01-2023 CO2 [Moles/Vol] 28.5 mmol/L Normal 21.0-31.0 [facility] Comment on above: Order Comment: Reaso n for Exam Primary hypertension Reason for Exam Low iron Reason for Exam Primary hypertension;Hypertriglyceridemia Reason for Exam Hot flashes Reason for Exam Vitamin D deficiency Performed By: #### C BC, TSH3, [id number], CMP, SHAMA, FE and TIBC, LIPID, FSH, T3F, CUU, [id number], UA #### [facility] [address] [place] [address] [place] #### ESTRADIOL, LH #### [facility] , Chloride [Moles/volume] in S shanna or PlasmaOrdered By: Jes Cruz on 11-01-2023 Chloride [Moles/Vol] 105 mmol/L Normal 98-107 [facility] Comment on above: Order Comment: Reaso n for Exam Primary hypertension Reason for Exam Low iron Reason for Exam Primary hypertension;Hypertriglyceridemia Reason for Exam Hot flashes Reason for Exam Vitamin D deficiency Performed By: #### C BC, TSH3, [id number], CMP, SHAMA, FE and TIBC, LIPID, FSH, T3F, CUU, [id number], UA #### [facility] [address] [place] [address] [place] #### ESTRADIOL, LH #### [facility] , Cholesterol [Mass/volume] in Serum or PlasmaOrdered By: Jes Cruz on 11-01-2023 Cholesterol [Mass/Vol] 285 mg/dL High 140-200 [facility] Comment on above: Chol less than 200 [...] risk Performed By: #### C BC, TSH3, [id number], CMP, SHAMA, FE and TIBC, LIPID, FSH, T3F, CUU, [id number], UA #### [facility] [address] [place] [address] [place] #### ESTRADIOL, LH #### [facility] , Cholesterol in LDL Calc [Mas s/Vol]Ordered By: Jes Cruz on 11-01-2023 Cholesterol in LDL [Mass/Vol] 198 mg/dL High 0-100 [facility] Comment on above: LDL ATP III CLASSIFI CATIONLDL less than 100 mg/dL OptimalLDL 100-129 mg/dL Near or above optimalLDL 130-159 mg/dL Borderline highLDL 160-189 mg/dL HighLDL greater than 189 mg/dL Very high Cholesterol in VLDL Calc [Ma ss/Vol]Ordered By: Jes Cruz on 11-01-2023 Cholesterol in VLDL [Mass/Vol] 29 mg/dL [facility] Color of Urine by AutoOrdere d By: Jes Cruz on 11-01-2023 Color (U) Light-yellow Normal Yellow [facility] Comment on above: Order Comment: Reaso n for Exam Microscopic hematuria Name Collection Type:: Voided Performed By: #### C BC, TSH3, [id number], CMP, SHAMA, FE and TIBC, LIPID, FSH, T3F, CUU, [id number], UA #### [facility] [address] [place] [address] [place] #### ESTRADIOL, LH #### [facility] , Complete Blood Count Auto Di ffon 11-01-2023 Mean Corpuscular HGB Conc 33.6 g/dL Normal 32.0-35.0 [facility] Comment on above: Order Comment: Reaso n for Exam Primary hypertension Performed By: #### C BC, TSH3, [id number], CMP, SHAMA, FE and TIBC, LIPID, FSH, T3F, CUU, [id number], UA #### [facility] [address] [place] [address] [place] #### ESTRADIOL, LH #### [facility] , NRBC% 0.1 /100{WBC} Normal 0-0.[address] [facility] Comment on above: Order Comment: Reaso n for Exam Primary hypertension Performed By: #### C BC, TSH3, [id number], CMP, SHAMA, FE and TIBC, LIPID, FSH, T3F, CUU, [id number], UA #### [place] [address] [place] #### ESTRADIOL, LH #### [facility] , Comprehensive Metabolic Pane bryon 11-01-2023 Albumin [Mass/Vol] 4.3 g/dL Normal 3.5-5.7 [facility] Comment on above: Order Comment: Reaso n for Exam Primary hypertension Reason for Exam Low iron Reason for Exam Primary hypertension;Hypertriglyceridemia Reason for Exam Hot flashes Reason for Exam Vitamin D deficiency Performed By: #### C BC, TSH3, [id number], CMP, SHAMA, FE and TIBC, LIPID, FSH, T3F, CUU, [id number], UA #### [place] [address] [place] #### ESTRADIOL, LH #### [facility] , GFR/1.73 sq M.predicted MDRD (S/P/Bld) [Vol rate/Area] mL/min/{1.73_m2} Normal [facility] Comment on above: Order Comment: Reaso n for Exam Primary hypertension Reason for Exam Low iron Reason for Exam Primary hypertension;Hypertriglyceridemia Reason for Exam Hot flashes Reason for Exam Vitamin D deficiency Performed By: #### C BC, TSH3, [id number], CMP, SHAMA, FE and TIBC, LIPID, FSH, T3F, CUU, [id number], UA #### [place] [address] [place] #### ESTRADIOL, LH #### [facility] , Creatinine [Mass/volume] in Serum or PlasmaOrdered By: Jes Cruz on 11-01-2023 Creatinine [Mass/Vol] 0.75 mg/dL Normal 0.60-1.20 [facility] Comment on above: Order Comment: Reaso n for Exam Primary hypertension Reason for Exam Low iron Reason for Exam Primary hypertension;Hypertriglyceridemia Reason for Exam Hot flashes Reason for Exam Vitamin D deficiency Performed By: #### C BC, TSH3, [id number], CMP, SHAMA, FE and TIBC, LIPID, FSH, T3F, CUU, [id number], UA #### [facility] [address] [place] [address] [place] #### ESTRADIOL, LH #### [facility] , Erythrocyte distribution wid th [Ratio] by Automated countOrdered By: Jes Cruz on 11-01-2023 Erythrocyte distribution width (RBC) [Ratio] 13.1 % Normal 11.9-15.3 [facility] Comment on above: Order Comment: Reaso n for Exam Primary hypertension Performed By: #### C BC, TSH3, [id number], CMP, SHAMA, FE and TIBC, LIPID, FSH, T3F, CUU, [id number], UA #### [facility] [address] [place] [address] #### ESTRADIOL, LH #### [facility] , Erythrocytes [#/volume] in B lood by Automated countOrdered By: Jes Cruz on 11-01-2023 RBC (Bld) [#/Vol] 4.13 10*6/uL Normal 3.60-5.00 [facility] Comment on above: Order Comment: Reaso n for Exam Primary hypertension Performed By: #### C BC, TSH3, [id number], CMP, SHAMA, FE and TIBC, LIPID, FSH, T3F, CUU, [id number], UA #### [facility] [address] [place] [address] [place] #### ESTRADIOL, LH #### [facility] , Estradiolon 11-01-2023 Estradiol <5.0 Normal . [facility] Comment on above: Order Comment: Reaso n for Exam Hot flashes Result Comment: Adul t Female Range Follicular phase 12.5 - 166.0 Ovulation phase 85.8 - 498.0 Luteal phase 43.8 - 211.0 Postmenopausal <6.0 - 54.7 1st trimester 215.0 - >4300.0 Mp ECLIA methodology Performed at: [facility] [address] [id number] [employer] Maker: Kurtis Gallegos PhD, Phone: [phone] PERFORMED BY: [place] [address] PATHOLOGIST MARBLEIZING MACHINE TENDER PALOMO WESLEY M.D. Performed By: #### C BC, TSH3, [id number], CMP, SHAMA, FE and TIBC, LIPID, FSH, T3F, CUU, [id number], UA ####[facility] [id number]#### ESTRADIOL, LH ####[facility] , Ferritin [Mass/volume] in Se rum or PlasmaOrdered By: Jes Cruz on 11-01-2023 Ferritin [Mass/Vol] 42.8 ng/mL Normal 11.0-306.8 [facility] Comment on above: Order Comment: Reaso n for Exam Primary hypertension Reason for Exam Low iron Reason for Exam Primary hypertension;Hypertriglyceridemia Reason for Exam Hot flashes Reason for Exam Vitamin D deficiency Performed By: #### C BC, TSH3, [id number], CMP, SHAMA, FE and TIBC, LIPID, FSH, T3F, CUU, [id number], UA #### [facility] [address] [place] [address] [place] #### ESTRADIOL, LH #### [facility] , Folate [Mass/volume] in Seru m or PlasmaOrdered By: Jes Cruz on 11-01-2023 Folate [Mass/Vol] 10.3 ng/mL >5.9 [facility] Comment on above: Folate reference ran ge: >5.9 ng/mlThe WHO technical consultation on folate and vitamin [id number] has determined that folate concentrations lessthan 4 ng/ml are considered deficient. Follicle Stimulating Hormone on 11-01-2023 Follicle Stimulating Hormone 32.3 m[iU]/mL Normal [facility] Comment on above: Order [...] mIU/mL Performed By: #### C BC, TSH3, [id number], CMP, SHAMA, FE and TIBC, LIPID, FSH, T3F, CUU, [id number], UA ####[facility] [id number]#### ESTRADIOL, LH ####[facility] , Follitropin [Units/volume] i n Serum or PlasmaOrdered By: Jes Cruz on 11-01-2023 Follitropin Qn 32.3 m[IU]/mL [facility] Comment on above: FEMALE NORMALS (KEVEN ENOPAUSE) MID-FOLLICULAR PHASE: 3.9-8.8 mIU/mL MID-CYCLE PEAK: 4.5-22.5 mIU/mL MID-LUTEAL PHASE: 1.8-5.1 mIU/mLFEMALE NORMALS (POSTMENOPAUSE): 16.7-113.6 mIU/mLMALE NORMALS: 1.3-19.3 mIU/mL Glucose [Mass/volume] in Ser um or PlasmaOrdered By: Jes Cruz on 11-01-2023 Glucose [Mass/Vol] 95 mg/dL Normal 70-100 [facility] Comment on above: ADA recommended [...] for Exam Vitamin D deficiency Result Comment: [place] om Glucose Reference Range is dependent on time and content of last meal. Glucose of more than 200 mg/dL in a nonstressed, ambulatory subject supports the diagnosis of Diabetes Mellitus. ADA recommended reference range Performed By: #### C BC, TSH3, [id number], CMP, SHAMA, FE and TIBC, LIPID, FSH, T3F, CUU, [id number], UA #### [place] [address] [place] #### ESTRADIOL, LH #### [facility] , Glucose [Mass/volume] in Uri ne by Test stripOrdered By: Jes Cruz on 11-01-2023 Glucose Test strip (U) [Mass/Vol] Normal mg/dL Normal [facility] Hematocrit [Volume Fraction] of Blood by Automated countOrdered By: Jes Cruz on 11-01-2023 Hematocrit (Bld) [Volume fraction] 39.6 % Normal 34.0-46.4 [facility] Comment on above: Order Comment: Reaso n for Exam Primary hypertension Performed By: #### C BC, TSH3, [id number], CMP, SHAMA, FE and TIBC, LIPID, FSH, T3F, CUU, [id number], UA #### [facility] [address] [place] [address] [place] #### ESTRADIOL, LH #### [facility] , Hemoglobin Test strip Ql (U) Ordered By: Jes Cruz on 11-01-2023 Hemoglobin Ql (U) Negative Negative [facility] Hemoglobin [Mass/volume] in BloodOrdered By: Jes Cruz on 11-01-2023 Hemoglobin (Bld) [Mass/Vol] 13.3 g/dL Normal 11.8-15.4 [facility] Comment on above: Order Comment: Reaso n for Exam Primary hypertension Performed By: #### C BC, TSH3, [id number], CMP, SHAMA, FE and TIBC, LIPID, FSH, T3F, CUU, [id number], UA #### [facility] [address] [place] [address] [place] #### ESTRADIOL, LH #### [facility] , Iron [Mass/volume] in Serum or PlasmaOrdered By: Jes Cruz on 11-01-2023 Iron [Mass/Vol] 106 ug/dL Normal 50-212 [facility] Comment on above: Order Comment: Reaso n for Exam Primary hypertension Reason for Exam Low iron Reason for Exam Primary hypertension;Hypertriglyceridemia Reason for Exam Hot flashes Reason for Exam Vitamin D deficiency Performed By: #### C BC, TSH3, [id number], CMP, SHAMA, FE and TIBC, LIPID, FSH, T3F, CUU, [id number], UA #### [facility] [address] [place] [address] [place] #### ESTRADIOL, LH #### [facility] , [...] deficiency Performed By: #### C BC, TSH3, [id number], CMP, SHAMA, FE and TIBC, LIPID, FSH, T3F, CUU, [id number], UA #### [facility] [address] [place] [address] [place] #### ESTRADIOL, LH #### [facility] , Total Iron Binding Capacity 423 ug/dL Normal 255-450 [facility] Comment on above: Order Comment: Reaso n for Exam Primary hypertension Reason for Exam Low iron Reason for Exam Primary hypertension;Hypertriglyceridemia Reason for Exam Hot flashes Reason for Exam Vitamin D deficiency Performed By: #### C BC, TSH3, [id number], CMP, SHAMA, FE and TIBC, LIPID, FSH, T3F, CUU, [id number], UA #### [facility] [address] [place] [address] [place] #### ESTRADIOL, LH #### [facility] , Iron binding capacity [Mass/ volume] in Serum or PlasmaOrdered By: Jes Cruz on 11-01-2023 Iron binding capacity [Mass/Vol] 423 ug/dL 255-450 [facility] Iron saturation [Mass Fracti on] in Serum or PlasmaOrdered By: Jes Cruz on 11-01-2023 Iron saturation [Mass fraction] 25.1 % 20-50 [facility] Ketones [Presence] in Urine by Test stripOrdered By: Jes Cruz on 11-01-2023 Ketones Ql (U) Negative Normal Negative [facility] Comment on above: Order Comment: Reaso n for Exam Microscopic hematuria Name Collection Type:: Voided Performed By: #### C BC, TSH3, [id number], CMP, SHAMA, FE and TIBC, LIPID, FSH, T3F, CUU, [id number], UA #### [facility] [address] [place] [address] [place] #### ESTRADIOL, LH #### [facility] , Leukocyte esterase [Presence ] in Urine by Test stripOrdered By: Jes Cruz on 11-01-2023 Leukocyte esterase Test strip Ql (U) Negative Normal Negative [facility] Comment on above: Order Comment: Reaso n for Exam Microscopic hematuria Name Collection Type:: Voided Performed By: #### C BC, TSH3, [id number], CMP, SHAMA, FE and TIBC, LIPID, FSH, T3F, CUU, [id number], UA #### [place] [address] [place] #### ESTRADIOL, LH #### [facility] , Leukocytes [#/volume] correc ricardo for nucleated erythrocytes in Blood by Automated counOrdered By: Jes Curz on 11-01-2023 WBC corrected for nucl RBC Auto (Bld) [#/Vol] 7.3 10*3/uL 3.8-11.6 [facility] Leukocytes [#/volume] in Blo od by Automated countOrdered By: Jes Cruz on 11-01-2023 WBC (Bld) [#/Vol] 7.3 10*3/uL Normal 3.8-11.6 [facility] Comment on above: Order Comment: Reaso n for Exam Primary hypertension Performed By: #### C BC, TSH3, [id number], CMP, SHAMA, FE and TIBC, LIPID, FSH, T3F, CUU, [id number], UA #### [facility] [address] [place] [address] [place] #### ESTRADIOL, LH #### [facility] , Lipid Panelon 11-01-2023 LDL Cholesterol,Calculated 198 mg/dL High 0-100 [facility] Comment on above: Order [...] high Performed By: #### C BC, TSH3, [id number], CMP, SHAMA, FE and TIBC, LIPID, FSH, T3F, CUU, [id number], UA #### [facility] [address] [place] [address] [place] #### ESTRADIOL, LH #### [facility] , Triglyceride w/Reflex 145 mg/dL Normal 0-149 [facility] Comment on above: Order [...] mg/dL Very high Standard traceable to the [place] [facility] for Disease Conrtrol and Prevention (CDC) test method. Performed By: #### C BC, TSH3, [id number], CMP, SHAMA, FE and TIBC, LIPID, FSH, T3F, CUU, [id number], UA #### [facility] [address] #### ESTRADIOL, LH #### [facility] , VLDL CHOLESTEROL 29 mg/dL Normal [facility] Comment on above: Order Comment: Reaso n for Exam Primary hypertension Reason for Exam Low iron Reason for Exam Primary hypertension;Hypertriglyceridemia Reason for Exam Hot flashes Reason for Exam Vitamin D deficiency Performed By: #### C BC, TSH3, [id number], CMP, SHAMA, FE and TIBC, LIPID, FSH, T3F, CUU, [id number], UA #### [facility] [address] #### ESTRADIOL, LH #### [facility] , Luteinizing Hormoneon 2023 Luteinizing Hormone 20.7 m[iU]/mL Normal . [facility] Comment on above: Order Comment: Reaso n for Exam Hot flashes Result Comment: Adul t Female Range Follicular phase 2.4 - 12.6 Ovulation phase 14.0 - 95.6 Luteal phase 1.0 - 11.4 Postmenopausal 7.7 - 58.5 Performed By: #### C BC, TSH3, [id number], CMP, SHAMA, FE and TIBC, LIPID, FSH, T3F, CUU, [id number], UA ####[facility] [id number] [address]#### ESTRADIOL, LH ####[facility] , Lymphocytes [#/volume] in Bl ood by Automated countOrdered By: Jes Cruz on 11-01-2023 Lymphocytes (Bld) [#/Vol] 2.0 10*3/uL Normal 1.00-4.8 [facility] Comment on above: Order Comment: Reaso n for Exam Primary hypertension Performed By: #### C BC, TSH3, [id number], CMP, SHAMA, FE and TIBC, LIPID, FSH, T3F, CUU, [id number], UA #### [facility] [address] [place] [address] [place] #### ESTRADIOL, LH #### [facility] , Lymphocytes/100 leukocytes i n Blood by Automated countOrdered By: Jes Cruz on 11-01-2023 Lymphocytes/100 WBC (Bld) 28.0 % Normal . [facility] Comment on above: Order Comment: Reaso n for Exam Primary hypertension Performed By: #### C BC, TSH3, [id number], CMP, SHAMA, FE and TIBC, LIPID, FSH, T3F, CUU, [id number], UA #### [place] [address] [place] #### ESTRADIOL, LH #### [facility] , MCH [Entitic mass] by Automa ricardo countOrdered By: Jes Cruz on 11-01-2023 MCH (RBC) [Entitic mass] 32.3 pg Normal 24.7-34.3 [facility] Comment on above: Order Comment: Reaso n for Exam Primary hypertension Performed By: #### C BC, TSH3, [id number], CMP, SHAMA, FE and TIBC, LIPID, FSH, T3F, CUU, [id number], UA #### [place] [address] [place] #### ESTRADIOL, LH #### [facility] , MCHC Auto (RBC) [Mass/Vol]Or dered By: Jes Cruz on 11-01-2023 MCHC (RBC) [Mass/Vol] 33.6 g/dL 32.0-35.0 [facility] MCV [Entitic volume] by Auto mated countOrdered By: Jes Cruz on 11-01-2023 MCV (RBC) [Entitic vol] 96.0 fL Normal 80-100 [facility] Comment on above: Order Comment: Reaso n for Exam Primary hypertension Performed By: #### C BC, TSH3, [id number], CMP, SHAMA, FE and TIBC, LIPID, FSH, T3F, CUU, [id number], UA #### [facility] [address] #### ESTRADIOL, LH #### [facility] , Neutrophils [#/volume] in Bl ood by Automated countOrdered By: Jes Cruz on 11-01-2023 Neutrophils (Bld) [#/Vol] 4.3 10*3/uL Normal 1.8-7.7 [facility] Comment on above: Order Comment: Reaso n for Exam Primary hypertension Performed By: #### C BC, TSH3, [id number], CMP, SHAMA, FE and TIBC, LIPID, FSH, T3F, CUU, [id number], UA #### [facility] [address] [place] [address] #### ESTRADIOL, LH #### [facility] , Nitrite Test strip Ql (U)Ord ered By: Jes Cruz on 11-01-2023 Nitrite Ql (U) Negative Negative [facility] No Panel InformationOrdered By: Jes Cruz on 11-01-2023 Estimated GFR (CKD-EPI) > 60.0 mL/Min [facility] Creatinine Clearance (Chem N/A [facility] Nucleated erythrocytes [Pres ence] in Blood by Automated countOrdered By: Jes Cruz on 11-01-2023 Nucleated RBC Auto Ql (Bld) 0.1 /100{WBC} 0-0.5 [facility] Platelet mean volume [Entiti c volume] in Blood by Automated countOrdered By: Jes Cruz on 11-01-2023 Platelet mean volume (Bld) [Entitic vol] 8.3 fL Normal 6.3-10.7 [facility] Comment on above: Order Comment: Reaso n for Exam Primary hypertension Performed By: #### C BC, TSH3, [id number], CMP, SHAMA, FE and TIBC, LIPID, FSH, T3F, CUU, [id number], UA #### [facility] [address] [place] [address] [place] #### ESTRADIOL, LH #### [facility] , Platelets [#/volume] in Bloo d by Automated countOrdered By: Jes Cruz on 11-01-2023 Platelets (Bld) [#/Vol] 384 10*3/uL Normal 150-450 [facility] Comment on above: Order Comment: Reaso n for Exam Primary hypertension Performed By: #### C BC, TSH3, [id number], CMP, SHAMA, FE and TIBC, LIPID, FSH, T3F, CUU, [id number], UA #### [facility] [address] [place] [address] [place] #### ESTRADIOL, LH #### [facility] , Potassium [Moles/volume] in Serum or PlasmaOrdered By: Jes Cruz on 11-01-2023 Potassium [Moles/Vol] 4.3 mmol/L Normal 3.5-5.1 [facility] Comment on above: Order Comment: Reaso n for Exam Primary hypertension Reason for Exam Low iron Reason for Exam Primary hypertension;Hypertriglyceridemia Reason for Exam Hot flashes Reason for Exam Vitamin D deficiency Performed By: #### C BC, TSH3, [id number], CMP, SHAMA, FE and TIBC, LIPID, FSH, T3F, CUU, [id number], UA #### [facility] [address] [place] [address] [place] #### ESTRADIOL, LH #### [facility] , Protein Test strip (U) [Mass /Vol]Ordered By: Jes Cruz on 11-01-2023 Protein (U) [Mass/Vol] Negative Negative [facility] Protein [Mass/volume] in Ser um or PlasmaOrdered By: Jes Cruz on 11-01-2023 Protein [Mass/Vol] 6.9 g/dL Normal 6.4-8.9 [facility] Comment on above: Order Comment: Reaso n for Exam Primary hypertension Reason for Exam Low iron Reason for Exam Primary hypertension;Hypertriglyceridemia Reason for Exam Hot flashes Reason for Exam Vitamin D deficiency Performed By: #### C BC, TSH3, [id number], CMP, SHAMA, FE and TIBC, LIPID, FSH, T3F, CUU, [id number], UA #### [facility] [address] [place] [address] #### ESTRADIOL, LH #### [facility] , Serum globulin measurement b y calculation (mass/volume)Ordered By: Jes Cruz on 11-01-2023 Globulin (S) [Mass/Vol] 2.6 g/dL [facility] Comment on above: Order Comment: Reaso n for Exam Primary hypertension Reason for Exam Low iron Reason for Exam Primary hypertension;Hypertriglyceridemia Reason for Exam Hot flashes Reason for Exam Vitamin D deficiency Performed By: #### C BC, TSH3, [id number], CMP, SHAMA, FE and TIBC, LIPID, FSH, T3F, CUU, [id number], UA #### [facility] [address] [place] [address] [place] #### ESTRADIOL, LH #### [facility] , Serum or plasma albumin/glob ulin mass ratioOrdered By: Jes Cruz on 11-01-2023 Albumin/Globulin [Mass ratio] 1.7 {ratio} [facility] Comment on above: Order Comment: Reaso n for Exam Primary hypertension Reason for Exam Low iron Reason for Exam Primary hypertension;Hypertriglyceridemia Reason for Exam Hot flashes Reason for Exam Vitamin D deficiency Performed By: #### C BC, TSH3, [id number], CMP, SHAMA, FE and TIBC, LIPID, FSH, T3F, CUU, [id number], UA #### [facility] [address] [place] [address] [place] #### ESTRADIOL, LH #### [facility] , Serum or plasma anion gap de terminationOrdered By: Jes Cruz on 11-01-2023 Anion gap [Moles/Vol] 10.8 mmol/L Normal 6.0-15.0 [facility] Comment on above: Order Comment: Reaso n for Exam Primary hypertension Reason for Exam Low iron Reason for Exam Primary hypertension;Hypertriglyceridemia Reason for Exam Hot flashes Reason for Exam Vitamin D deficiency Performed By: #### C BC, TSH3, [id number], CMP, SHAMA, FE and TIBC, LIPID, FSH, T3F, CUU, [id number], UA #### [facility] [address] #### ESTRADIOL, LH #### [facility] , Serum or plasma estradiol (E 2) measurement (mass/volume)Ordered By: Jes Cruz on 11-01-2023 E2 [Mass/Vol] pg/mL . [facility] Comment on above: Adult Female Range F ollicular phase 12.5 - 166.0 Ovulation phase 85.8 - 498.0 Luteal phase 43.8 - 211.0 Postmenopausal <6.0 - 54.7 1st trimester 215.0 - >4300.0Roche ECLIA methodologyPerformed at: [facility] [address] Director: Kurtis Gallegos PhD, Phone: [phone] Serum or plasma high density lipoprotein (HDL) cholesterol measurementOrdered By: Jes Cruz on 11-01-2023 Cholesterol in HDL [Mass/Vol] 58 mg/dL Normal 23-92 [facility] Comment on above: HDL CHOL [...] HIGH Performed By: #### C BC, TSH3, [id number], CMP, SHAMA, FE and TIBC, LIPID, FSH, T3F, CUU, [id number], UA #### [facility] [address] #### ESTRADIOL, LH #### [facility] , Serum or plasma lutropin paramjit surement (units/volume)Ordered By: Jes rCuz on 11-01-2023 Lutropin Qn 20.7 m[IU]/mL . [facility] Comment on above: Adult Female Range F ollicular phase 2.4 - 12.6 Ovulation phase 14.0 - 95.6 Luteal phase 1.0 - 11.4 Postmenopausal 7.7 - 58.5 Serum or plasma total choles terol/high density lipoprotein (HDL) cholesterol mass ratOrdered By: Jes Cruz on 11-01-2023 Cholesterol.total/Chol esterol in HDL [Mass ratio] 4.9 {ratio} Normal <5.0 [facility] Comment on above: Order Comment: Reaso n for Exam Primary hypertension Reason for Exam Low iron Reason for Exam Primary hypertension;Hypertriglyceridemia Reason for Exam Hot flashes Reason for Exam Vitamin D deficiency Performed By: #### C BC, TSH3, [id number], CMP, SHAMA, FE and TIBC, LIPID, FSH, T3F, CUU, [id number], UA #### [facility] [address] [place] [address] [place] #### ESTRADIOL, LH #### [facility] , Sodium [Moles/volume] in Ser um or PlasmaOrdered By: Jes Cruz on 11-01-2023 Sodium [Moles/Vol] 140 mmol/L Normal 136-145 [facility] Comment on above: Order Comment: Reaso n for Exam Primary hypertension Reason for Exam Low iron Reason for Exam Primary hypertension;Hypertriglyceridemia Reason for Exam Hot flashes Reason for Exam Vitamin D deficiency Performed By: #### C BC, TSH3, [id number], CMP, SHAMA, FE and TIBC, LIPID, FSH, T3F, CUU, [id number], UA #### [facility] [address] [place] [address] [place] #### ESTRADIOL, LH #### [facility] , Specific gravity Test strip (U) [Rel density]Ordered By: Jes Cruz on 11-01-2023 Specific gravity (U) [Rel density] 1.014 1.001-1.030 [facility] Thyrotropin [Units/volume] i n Serum or PlasmaOrdered By: Jes Anthony on 11-01-2023 TSH Qn 1.49 m[IU]/L Normal 0.45-5.33 [facility] Comment on above: Order Comment: Reaso n for Exam Primary hypertension Reason for Exam Low iron Reason for Exam Primary hypertension;Hypertriglyceridemia Reason for Exam Hot flashes Reason for Exam Vitamin D deficiency Performed By: #### C BC, TSH3, [id number], CMP, SHAMA, FE and TIBC, LIPID, FSH, T3F, CUU, [id number], UA ####[facility] [id number] [place] [address] [place]#### ESTRADIOL, LH ####[facility] , Transferrin [Mass/volume] in Serum or PlasmaOrdered By: Jes Cruz on 11-01-2023 Transferrin [Mass/Vol] 302 mg/dL Normal 203-362 [facility] Comment on above: Order Comment: Reaso n for Exam Primary hypertension Reason for Exam Low iron Reason for Exam Primary hypertension;Hypertriglyceridemia Reason for Exam Hot flashes Reason for Exam Vitamin D deficiency Performed By: #### C BC, TSH3, [id number], CMP, SHAMA, FE and TIBC, LIPID, FSH, T3F, CUU, [id number], UA #### [facility] [address] [place] [address] [place] #### ESTRADIOL, LH #### [facility] , Triglyceride [Mass/volume] i n Serum or PlasmaOrdered By: Jes Cruz on 11-01-2023 Triglyceride [Mass/Vol] 145 mg/dL 0-149 [facility] Comment on above: TRIG ATP III CLASSIF ICATIONTRIG less than 150 mg/dL NormalTRIG 150-199 mg/dL Borderline highTRIG 200-500 mg/dL High TRIG greater than 500 mg/dL Very highStandard traceable to the Center for Disease Conrtrol and Prevention (CDC) test method. Triiodothyronine (T3) Freeon 11-01-2023 Triiodothyronine (T3) Free 2.86 pg/mL Normal 2.50-3.90 [facility] Comment on above: Order Comment: Reaso n for Exam Hot flashes Result Comment: PERF ORMED BY: [place] [address] PATHOLOGIST MARBLEIZING MACHINE TENDER PALOMO WESLEY M.D. Performed By: #### C BC, TSH3, [id number], CMP, SHAMA, FE and TIBC, LIPID, FSH, T3F, CUU, [id number], UA #### [place] [address] [place] #### ESTRADIOL, LH #### [facility] , Triiodothyronine (T3) Free [ Mass/volume] in Serum or PlasmaOrdered By: Jes Cruz on 11-01-2023 Free T3 [Mass/Vol] 2.86 pg/mL 2.50-3.90 [facility] Urea nitrogen [Mass/volume] in Serum or PlasmaOrdered By: Jes Cruz on 11-01-2023 Urea nitrogen [Mass/Vol] 17 mg/dL Normal 7-25 [facility] Comment on above: Order Comment: Reaso n for Exam Primary hypertension Reason for Exam Low iron Reason for Exam Primary hypertension;Hypertriglyceridemia Reason for Exam Hot flashes Reason for Exam Vitamin D deficiency Performed By: #### C BC, TSH3, [id number], CMP, SHAMA, FE and TIBC, LIPID, FSH, T3F, CUU, [id number], UA #### [place] [address] [place] #### ESTRADIOL, LH #### [facility] , Urinalysison 11-01-2023 Bilirubin,Urine Negative Normal Negative [facility] Comment on above: Order Comment: Reaso n for Exam Microscopic hematuria Name Collection Type:: Voided Performed By: #### C BC, TSH3, [id number], CMP, SHAMA, FE and TIBC, LIPID, FSH, T3F, CUU, [id number], UA #### [place] [address] [place] #### ESTRADIOL, LH #### [facility] , Glucose Ql (U) Normal Normal Normal [facility] Comment on above: Order Comment: Reaso n for Exam Microscopic hematuria Name Collection Type:: Voided Performed By: #### C BC, TSH3, [id number], CMP, SHAMA, FE and TIBC, LIPID, FSH, T3F, CUU, [id number], UA #### [address] #### ESTRADIOL, LH #### [facility] , Nitrite,Urine Negative Normal Negative 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 Performed By: #### C BC, TSH3, [id number], CMP, SHAMA, FE and TIBC, LIPID, FSH, T3F, CUU, [id number], UA #### [place] [address] [place] #### ESTRADIOL, LH #### [facility] , Protein,Urine Negative Normal Negative [facility] Comment on above: Order Comment: Reaso n for Exam Microscopic hematuria Name Collection Type:: Voided Performed By: #### C BC, TSH3, [id number], CMP, SHAMA, FE and TIBC, LIPID, FSH, T3F, CUU, [id number], UA #### [facility] [address] #### ESTRADIOL, LH #### [facility] , Specificy [place],Urine 1.014 Normal 1.001-1.030 [facility] Comment on above: Order Comment: Reaso n for Exam Microscopic hematuria Name Collection Type:: Voided Performed By: #### C BC, TSH3, [id number], CMP, SHAMA, FE and TIBC, LIPID, FSH, T3F, CUU, [id number], UA #### [address] #### ESTRADIOL, LH #### [facility] , Urobilinogen,Urine Normal Normal Normal [facility] Comment on above: Order Comment: Reaso n for Exam Microscopic hematuria Name Collection Type:: Voided Performed By: #### C BC, TSH3, [id number], CMP, SHAMA, FE and TIBC, LIPID, FSH, T3F, CUU, [id number], UA #### [address] #### ESTRADIOL, LH #### [facility] , Urine Cultureon 11-01-2023 Bacteria identified Cx Nom (U) Reason for Exam Microscopic hematuria Urine Reason for Exam: Microscopic hematuria : Urine <9,000 colonies/ml mixed bacterial skin contaminants 2 Days PERFORMED BY: [place] [address] PATHOLOGIST MARBLEIZING MACHINE TENDER PALOMO WESLEY M.D. Normal [facility] Comment on above: Performed By: #### C BC, TSH3, [id number], CMP, SHAMA, FE and TIBC, LIPID, FSH, T3F, CUU, [id number], UA ####[place] [address] [place]#### ESTRADIOL, LH ####[facility] , Urine appearanceOrdered By: Jes Cruz on 11-01-2023 Appearance (U) Clear Normal Clear [facility] Comment on above: Order Comment: Reaso n for Exam Microscopic hematuria Name Collection Type:: Voided Performed By: #### C BC, TSH3, [id number], CMP, SHAMA, FE and TIBC, LIPID, FSH, T3F, CUU, [id number], UA #### [facility] [address] [place] [address] [place] #### ESTRADIOL, LH #### [facility] , Urine culture routineOrdered By: Jes Cruz on 11-01-2023 Bacteria identified Cx Nom (U) 2 Days [facility] Urobilinogen Test strip (U) [Mass/Vol]Ordered By: Jes Cruz on 11-01-2023 Urobilinogen (U) [Mass/Vol] Normal mg/dL Normal [facility] Vit. B12/Folate Profileon Folate 10.3 ng/mL Normal >5.9 [facility] Comment on above: Order [...] deficient. Performed By: #### C BC, TSH3, [id number], CMP, SHAMA, FE and TIBC, LIPID, FSH, T3F, CUU, [id number], UA ####[facility] [address] [place] [address] [place]#### ESTRADIOL, LH ####[facility] , Vitamin B12 ser/plasOrdered By: Jes Cruz on 11-01-2023 Cobalamin (Vitamin B12) [Mass/Vol] 208 pg/mL Normal 180-914 [facility] Comment on above: Order Comment: Reaso n for Exam Primary hypertension Reason for Exam Low iron Reason for Exam Primary hypertension;Hypertriglyceridemia Reason for Exam Hot flashes Reason for Exam Vitamin D deficiency Performed By: #### C BC, TSH3, [id number], CMP, SHAMA, FE and TIBC, LIPID, FSH, T3F, CUU, [id number], UA ####[facility] [place] [address] [facility]#### ESTRADIOL, LH ####[facility] , Vitamin D 25 Hydroxy Totalon 11-01-2023 Vitamin D 25 Hydroxy Total 34.2 ng/mL Normal 30-100 [facility] Comment on above: Order [...] Endocrine Society clinical practice guideline. JCEM. 2010; 96(7):191-. PERFORMED BY: [place] [id number] PATHOLOGIST MARBLEIZING MACHINE TENDER PALOMO WESLEY M.D. Performed By: #### C BC, TSH3, [id number], CMP, SHAMA, FE and TIBC, LIPID, FSH, T3F, CUU, [id number], UA ####[place] [address] [place] [address] [facility]#### ESTRADIOL, LH ####[facility] , Vitamin D+Metabolites [Mass/ volume] in Serum or PlasmaOrdered By: Jes Cruz on 11-01-2023 Vitamin D+Metabolites [Mass/Vol] 34.2 ng/mL 30-100 [facility] Comment on above: VITAMIN D STATUS 25( [place])VITAMIN D RANGE (ng/mL) Deficient <20 Insufficient 20 to <30Sufficient 30 to 100Reference: Suze Juarez, Abdiel MAXWELL, et al. Evaluation,treatment, and prevention of vitamin D deficiency; an Endocrine Society clinical practice guideline. JCEM. 2010; 96(7):191-. pH of Urine by Test stripOrd ered By: Jes Cruz on 11-01-2023 pH (U) 6.5 [pH] Normal 5.0-9.0 [facility] Comment on above: Order Comment: Marilee worrell for Exam Microscopic hematuria Name Collection Type:: Voided Performed By: #### C BC, TSH3, [id number], CMP, SHAMA, FE and TIBC, LIPID, FSH, T3F, CUU, [id number], UA #### [address] #### ESTRADIOL, LH #### [facility] , [...] for choosing us for your care. Hannah [facility] Provider Letteron 10-14-2023 Provider Letter Provider Letter October 14, 2023 ISELA CRAIG [address] [place], [place] [id number] : 1970 To Whom It May Concern, Please excuse above patient from work. Date of Illness: From: 10/14/23 To: 10/14/23 May Return to Work On: Patient had an appointment on 10/14/23 with SHABNAM Bowens Restrictions: None Comments: Patient had an appointment with SHABNAM Bowens on 10/14/23 Sincerely, [facility] , option #3 Normal [facility] Urology Office/Clinic Noteon 10-14-2023 Urology [...] E&M of Est. Patient Moderate 30-39 Min 29368 2. History of kidney stones (Z87.442: Personal [...] Urnls Dip Stick Auto w/o Microscopy POC 98012 Follow-up With When Contact Information [facility] [address] [place] [address] Business (1) Additional Instructions: for [...] disease: Mother. (more content not included)... Normal [facility] Comment on above: Result Comment: Elec tronically Signed By: JES ROLLE PA-C\.br\Date and Time Signed: 10/14/23 13:24 EDT Main OR Intraoperative Recor don 10-05-2023 Main OR Intraoperative Record Main OR Intraoperative Record IntraOp Document Type FTURO Summary Primary Physician: Alexandro PARTIDA MD Finalized Date/Time: 10/05/23 09:45:46 Pt. Name: ISELA CRAIG/Sex: 1970 Female Med Rec #: [id number] Physician: Alexandro PATRIDA MD Financial #: [id number] Pt. Type: O Room/Bed: / Admit/Disch: 10/05/23 [...] Kendall R Role Performed Surgeon - Primary Manufacturing Helper - Primary Scrub - Primary Time In [...] 10/05/23 09:42 Estrella Aguirre 10/05/23 09:45 Normal [facility] Main OR Preoperative Recordo n 10-05-2023 Main OR Preoperative Record Main OR Preoperative Record Holding Area Document Type FTURO Summary Primary Physician: Alexandro PARTIDA MD Finalized Date/Time: 10/05/23 08:57:00 Pt. Name: ISELA CRAIG /Sex: 1970 Female Med Rec #: [id number] Physician: Alexandro PARTIDA MD Financial #: [id number] Pt. Type: O Room/Bed: / Admit/Disch: 10/05/23 [...] SEAN Pagan RN, Ruthann 10/05/23 08:57 Normal [facility] Operative Reporton Operative Report Operative Report Patient: [...] Kim Rolle in a month or 2.. [facility] Comment on above: Result Comment: Elec tronically Signed By: JAQUAN PATRICK, Alexandro Clark.guillermina\Date and Time Signed: 10/05/23 09:46 EDT Provider Letteron 10-05-2023 Provider Letter Provider Letter October 05, 2023 To Whom It May Concern, Please excuse above patient from work. Date of Illness: From: 10/05/2023 To: 10/05/2023 May Return On:10/05/2023 Sincerely, [facility] [address], [address] [place] [address] [facility] Insurance Correspondenceon 0 09-28-2023 Insurance Correspondence [id number]#1. [id number] [facility] Coding Summary.on 09-23-2023 Coding Summary. XBTMGbgw44FVe1uJr+PG hl YWQ+AJ9DJKBdD62vqQZsgP 0uP5EPIBjHMqupITQDVBfZ YiWwonVrNY8iyPQnJQNq IC8+GH1cRZPxBkhwpKXcn3 W7pVL1G07cyb2wMLihgSY0 IRZzHnOolubfj3nkuGp7GM cuNmluOyBt BCTnpO31FCN5pO47Ls00fH CjvCCln6fupWk0EhHeNGZr YJX5kIxaARgrp1VwMSAjN5 9spDSmk8M6 MIRhlRgtyITmYcUdeOJ4sL 4oSOsroamxm7ybmcsmZux9 jf01rEMet4M6sRU8D8Muwf N8DLJwoOJn NumvqVYNjA6acxcvn1fzem szKoOgZASnISd1LIf1GTSn sBjhDuMzQS95XGX4DGDlxs ArX5BgOOUx eLmfWrZ7d8J3Ni3ZF0KILd ilS6JTYAUSTJhqaWE+PC90 cl86W0XuXlqhQqr4EKAuDU Z2fLD0aT2i GHVaAPepr5C1kBF9S8Rzep Mhzy3lt1gfPLInSPjbI58v nGSkb6W6IGXloYB9QKYwyI kjCtJblR39 Oyc+SIZmuEegw4EwZwpkx0 jpx9mopFi6IhaqQPZahvUo jAezJQD3d5OlWy4gNLOsuK W5dXM1rP0m AkGgIjL4YAtqY471CaLzaH RnYpozQ23vH4OrqCC+PHRy Pwl6JHKekAxzOK2dS5OxZD RpbmctbGVm nXzfZI2iQALjwttsZLDynE 1zBRMwJ6e2WkDlOjK7FPfj E4MnYQLtibqcAs99kC8cEe HjTsT2VRpm Y0MrinF8FUAggZMaBSvmRQ X3R19oz5N7UVZeTTFdFCH9 pBJ0bK5khIzwllmfeRZuiI sgdmVydGlj RZrxEUryT035FQOzqTegQp NvZGluZyBEYXRlOiAgMDYv MjAvMjAyNDwvdGQ+PHRkIH M0dWxhPJIt kIFkRZkgRf0nzQjlxRhvKZ 8vMVMtnizsLLOsaL3fCLQw nKOfqIqoNT4aBPUikaxai2 16AgPlVIB5 WQMqtBHsA5FvwK6mGeMhKU WbSPTbG4SumTEyLYmlK597 PFyxUqV2TTAmhcMfJ4EoFQ FsaWduOiB0 o4N8Qr4Yl1SizctbW1PbvQ FiNqNnNpqlZJp3N6SxIveo dHI+ZG59RQLcMT28SOb9VX A1lJosQCmi MWTjX6EphV0qDdRmUDAnDK RkOyc+PHRhYmxlIHdpZHRo RVbuQFBjEuMqcRnaWX5oWg 9yZGVyLWNv wKytwFXlEkIhv7mjYTQeHK hzRM8xiRplS3MtjFR7KEVy v6m0Zv09J64oD1RqbNO+PG UmdIU3bUC0 mM9pHiDoTuQ6CAolH153Sw FskXOvKuuwz1flv0erbFu9 UeB4JZZpydWhjArpRNF6g5 FaBj82C56h IHdpZHRoPSIxNSUiIHZhbG jgwx8tnN3tAg8+PGNvbCB3 vLH7pM3lPrPsXtD1MDofB7 49InRvcCIv Jnryj2hvm0vunJa4MwBlVG LzhiBbdPlaQDS9s9NgBi59 Y5XlcAmyj7KwHhd6ww37cP Yqb1R1mIZ8 D2AzSSSdfpsacEXcrDjsBX 2dUXMalgrcPKZrwH2sLIHf L8z7JzOdRaZ6QYzaF6Dtkq U8PAWzsWWn GQHhpMIJjO0pllfur0trht oyRwKgKJCfTVp8HHv8NLTd mCvoAlPoLWX1VcH5BWA2dS MigA4csDhm fuudlQ5sKvf+KOB1pQMuqF CXNG4vPssnlHO+PHRkIHN0 aNhoYAfaGJXweF6eTCMoM0 t0NyFwMxK8 TLopJ9BqseC1RFKvrVYbAF RycEBGqV9guadca7mwdbwk HxEwDGDyTQw7DNs6OWVnoH duOiBsZWZ0 PpB9EQI3hTLwhU5xbJuytl kxeK5pGak+QmlydGggRGF0 MNd4Y6BcMlb5JSLypYscUK 0ncGFkZGlu Gl3noCzhrOmcAX2qQESdgf jdg587YhZcu1nlWAJqrLLs FKsqFFU9O94dv6P6OARmDN GjRTQ7bTB4 nI7gjZkeqztodJWrbLzhtw ShqZkoNNvdQCcbN725TUQg pPjvTxFiVYt3C5FqGfv6TI XpbGvsGU8k oYMpWUctRy8bsTgbmBpkKJ 4sGYTbabrrt345MeKfi3te JDFqwNLqWJdnIKD7H47fe9 C0DTRuZCGh WJL1vUD4qL7ewQjzcbcwtD VmdDsgdmVydGljYWwtYWxp P671MATuoKgdSxVwpCf9V3 VsKox7ISLa oSqbOC0axMLhBKylDw1tpV lhnUtgER2gDMNwrqpkk113 GxJht3hrNPQedXGiELhzRW S9Y89tw8B6 GAJeIMPeZHS5lRI0xQ0ruD lnbjogbGVmdDsgdmVydGlj GQcjGGxrL168JGBqhEtbQr BhdGllbnQg YNumVCg9G0XgBulmpVC+PC 01KFUsDK37pTMvuZTii4ij cFi0DpAqFNQtBSA4zNizOK wxf8OqDNQc D61mmLKhe8E5DVSzuEvxwE HcKePpiPD2iO2uQFmjnoqt c7olxyrnTroln8yhgv71kL 17W62dLQct ZHRoPSIzMCUiIHZhbGlnbj 8qzJ7cVx8+TPTrzMJ8bUN4 qC2cURIrAgS7BWbzE915Ft RvcCIvPjxj i5xte1ljlMu5GjT7NSTgjd PlgTraANM0d9PqMz39Y19d IHdpZHRoPSIyMCUiIHZhbG tgii0oaO2c Ii8+BENxkCE0aHQ9tD0jZs BbBiV9SHuyO533XbHhcXJd GkmsN78gB9PidSO+PHRyPj y3MBOouOdk BV0ofPPdSGfbGe8pHQI3Cu NeMwZoGIgrD0OpCHPcfwoi ruxgkQS2EXLcASExhX42Fu 9udDogMTBw gWMGvO2qotpsy2cecgzeOe FrIRSgCTl1VSm4JMAwkVrg VsMgOMK2XaK1VGW0hIXuxX 1hbGlnbjog nX7eJ2PdAIQvrqywEn91kV 8cZeFlUeM4KIayJwf+Q09S QklOLCBDSEVOTkkgSzwvdG Q+PHRkIHN0 uTbkHLstZKEqyO2iPEDgN1 x8QhAbOeZ9YMuuF1XpBRYr rpolSr86uC1mVgNoAzB8HJ kaA2RltfF7 NXYshBFfWXlsGBE1W43nr9 H1WYJfBTSgBMJ7gVA5rT4h bGlnbjogbGVmdDsgdmVydG ljYWwtYWxp C761DQMtuIaqPlKtItGvQt P9SoM1W5BgWla6NMGsaNvc CL3rvEYbJInqYx7dyMqheY fiFA5cCYWs ltxbGCYwfI0vLMPcjGEceR xeAO4jOBEsogoop979MwWy CLP5QUBadRMdR0DloW4gIk AjMDAwMDAw H6VdhPOlSIzvR170HDopJz D2MUMsbfCaM5JrCOQxvRpz PyV1n1L1Fn32ItIFGGBrin wvdGQ+PHRk QYZ3kYtzOIwkJTPkjQ5iIZ DwU6g2UjLvJkX9IRokT1Jq YLCiflrtJn72nX3bFyPqUl B5JYliD7At khZ0TECavDCoKGbvVJE1Z7 3pt1B0MHHcKNAuKQG2sYR8 cO1rwRcxblipnRBbzGogkm VydGljYWwt ZYhtF931PWGguFsaZjAmnO FsZTwvdGQ+JSOhZLJ4qEpj OIqnDGIqoG4fOTDlN1x3Du KwTyA5SLyn O7BuMMUvssuhZq17hU0wHm DdBjG1ANidU8NedqI3JKQt aUEyPPomBFA4Q48cv5G1VM MwMDAwMDA7 dLF5oV8jtSggdcfieXGdkI usgjCisGydDAskDAhkS310 XENhoKnwNg28qOInhWxzeo A6W2ZhQrqs dHI+CO86UNXoGS85oTMluE Jtv7jmrMj6UcMjUGHqZCG5 kWioCMwsx4EhFGDbY35dhN Dko1G2QYQf rPoxeCRyBzMjiMF4uC7qNL jmktvrr6wvoonqIvfya7uy or32jU21I95yEQgyOEHrMI IzMCUiIHZh oAvzcv3grM5jKx8+PGNvbC W1mTJ2eZ1vIrVkIxO5EHhx J122QiFvhVTzSkyua9inl2 oynUi6KkHg ZPIvtqPhsGkzUXL8e2EfSl 47U35uDQneQFYpKAGuZATy GXYlnCyjbj0ezP0pMu1+PC 3wa0dnmc41 jQ38uAE+GDRhDPW2uDxvSR ntPCVavR6dUKfoApT8PMCu TuKthN78mDPuVHvjBo5qzB zffJeyFN0w YIKvgniqa797XnJgu9mfFK HdsPPoTSjqJKP1J97da6S3 BOHgEOVtOAT2xHE8zG2nxY lnbjogbGVm dDsgdmVydGljYWwtYWxpZ2 65ORPjeYavHkPnjWOzH7ht mgOIMG5kPcpblBD+PHRkIH S6mSnmESuw OMObhF2iPMCsR3b1ZrCsPu D3AYmaB6CxuhA7JECtaMPh DXAbxXQQiY8dtvhba2uzmj ogIzAwMDAw BKl5QAw2MVYqbXytUnAqUL W1PxD7KTX1qAJzrI9ftSpr peiddP1fZzm+RklOOjwvdG Q+PHRkIHN0 mQfrBRmpHFEtkY7xTKAxJ2 x5ShPcQsO5KCfxD4LnoxI3 NLKfwXMmNQDycKOGaV0dgu ham7cpidqd AzCoDVWyHXz8NLe7HHSqdL ggJaAwQWU4PyK4HKU0bGFc oG9tiZzkwvnnwL6yKry+TV JOOjwvdGQ+ LKVaAZG5cNahVQbbQFFbyS 7dERHqM6l3SoZmPoM0IOwj T8WokzF1ISPsiFZfNUTnyA SNiN5qxldj a4qfdafdYnIeVXZkEVp5RZ m3MWOkbXnlLlRcEKD2YyO6 ONL9vWLceF5iyBbdcjtpgS 9wOyc+UGF5 KCY6MQ42CS61O7SmWbzjbS FibGU+PHRhYmxlIHdpZHRo ADfvICUfFgZadJnqIU5pOo 9yZGVyLWNv bGxhcHNlOiBjb (more content not included)... Normal [facility] CBC AND AUTO DIFFon 09-18-19 24 ABSOLUTE BASOPHIL 0.0 X10E9/L Normal 0.0-0.2 [facility] Comment on above: Performed By: #### Terrie KIRKPATRICK CMP, 3040-3 #### [facility] ([id number]) [address] [place] [address]7525 ABSOLUTE NEUTROPHIL 3.2 X10E9/L Normal 1.5-6.6 [facility] Comment on above: Performed By: #### Terrie KIRKPATRICK CMP, 0-3 #### [facility] ([id number]) [address] [place] [address] 96498 Basophils/100 WBC (Bld) 0.7 % Normal [facility] Comment on above: Performed By: #### Terrie KIRKPATRICK CMP, 0-3 #### [facility] ([id number]) [address] [place] [address]6801 Eosinophils (Bld) [#/Vol] 0.1 10*3/uL Normal 0.0-0.4 [facility] Comment on above: Performed By: #### Terrie KIRKPATRICK CMP, 0-3 #### [facility] ([id number]) [address] [place] [address] 99153 Eosinophils/100 WBC (Bld) 2.4 % Normal [facility] Comment on above: Performed By: #### Terrie KIRKPATRICK CMP, 0-3 #### [facility] ([id number]) [address] [place] [address] 01208 Erythrocyte distribution width (RBC) [Ratio] 13.6 % Normal 11.5-15.0 [facility] Comment on above: Performed By: #### Terrie KIRKPATRICK CMP, 3039-3 #### [facility] ([id number]) [address] [place] [address] 12924 Hematocrit (Bld) [Volume fraction] 34.5 % Low 35-47 [facility] Comment on above: Performed By: #### Terrie KIRKPATRICK CMP, 3039-06 #### [facility] ([id number]) [address] [place] [address] 29045 Hemoglobin (Bld) [Mass/Vol] 11.6 g/dL Low 11.7-15.5 [facility] Comment on above: Performed By: #### Terrie KIRKPATRICK CMP, 3 #### [facility] ([id number]) [address] [place] [address] 88687 Lymphocytes (Bld) [#/Vol] 1.9 10*3/uL Normal 1.0-3.5 [facility] Comment on above: Performed By: #### Terrie KIRKPATRICK CMP, 3039-06 #### [facility] ([id number]) [address] [place] [address] 17201 Lymphocytes/100 WBC (Bld) 30.9 % Normal [facility] Comment on above: Performed By: #### Terrie KIRKPATRICK, CMP, 3 #### [facility] ([id number]) [address] [place] [address] 17126 MCH (RBC) [Entitic mass] 33.1 pg Normal 27-34 [facility] Comment on above: Performed By: #### Terrie KIRKPATRICK, CMP, 3 #### [facility] ([id number]) [address] [place] [address] 43912 MCHC (RBC) [Mass/Vol] 33.6 g/dL Normal 32-36 [facility] Comment on above: Performed By: #### Terrie KIRKPATRICK CMP, 0-3 #### [facility] ([id number]) [address] [place] [address] 87618 MCV (RBC) [Entitic vol] 99 fL Normal 80-100 [facility] Comment on above: Performed By: #### Terrie KIRKPATRICK CMP, 3039-06 #### [facility] ([id number]) [address] [place] [address] 56336 Monocytes (Bld) [#/Vol] 0.9 10*3/uL Normal 0-0.9 [facility] Comment on above: Performed By: #### Terrie KIRKPATRICK CMP, 3039-06 #### [facility] ([id number]) [address] [place] [address] 36845 Monocytes/100 WBC (Bld) 13.8 % Normal [facility] Comment on above: Performed By: #### Terrie KIRKPATRICK CMP, 3039-06 #### [facility] ([id number]) [address] [place] [address] 58433 Neutrophils/100 WBC (Bld) 52.2 % Normal [facility] Comment on above: Performed By: #### Terrie KIRKPATRICK CMP, 3039-06 #### [facility] ([id number]) [address] [place] [address] 32866 Platelet mean volume (Bld) [Entitic vol] 9.1 fL Normal 7-12 [facility] Comment on above: Performed By: #### Terrie KIRKPATRICK CMP, 3039-3 #### [facility] ([id number]) [address] [place] [address] 24761 Platelets (Bld) [#/Vol] 291 10*3/uL Normal 150-450 [facility] Comment on above: Performed By: #### C BCA, CMP, 3 #### [facility] ([id number]) [address] [place] [address] 29736 RBC COUNT 3.50 X10E12/L Low 3.80-5.20 [facility] Comment on above: Performed By: #### C BCA, CMP, 3 #### [facility] ([id number]) [address] [place] [address] 49269 WBC (Bld) [#/Vol] 6.2 10*3/uL Normal 4.0-11.0 [facility] Comment on above: Performed By: #### C BCA, CMP, 3039-06 #### [facility] ([id number]) [address] [place] [address] 13173 COMPREHENSIVE METABOLIC PANE [facility] 09-18-2023 Albumin [Mass/Vol] 3.8 g/dL Normal 3.2-5.3 [facility] Comment on above: Performed By: #### C BCA, CMP, 3 #### [facility] ([id number]) [address] [place] [address] 20142 ALP [Catalytic activity/Vol] 64 U/L Normal 39-130 [facility] Comment on above: Performed By: #### C BCA, CMP, 3 #### [facility] ([id number]) [address] [place] [address] 75063 ALT [Catalytic activity/Vol] 18 U/L Normal 0-31 [facility] Comment on above: Performed By: #### C BCA, CMP, 3 #### [facility] ([id number]) [address] [place] [address] 27801 Anion gap [Moles/Vol] 7 mmol/L Normal 5-15 [facility] Comment on above: Performed By: #### C BCA, CMP, 3039-3 #### [facility] ([id number]) [address] [place] [address] 67879 AST [Catalytic activity/Vol] 19 U/L Normal 0-41 [facility] Comment on above: Performed By: #### C BCA, CMP, 0-3 #### [facility] ([id number]) [address] [place] [address] 29576 Bilirubin [Mass/Vol] 0.6 mg/dL Normal 0.3-1.2 [facility] Comment on above: Performed By: #### C BCA, CMP, 3039-3 #### [facility] ([id number]) [address] [place] [address] 53628 Calcium [Mass/Vol] 8.4 mg/dL Low 8.5-10.5 [facility] Comment on above: Performed By: #### C BCA, CMP, 3 #### [facility] ([id number]) [address] [place] [address] 90718 Chloride [Moles/Vol] 105 mmol/L Normal 98-109 [facility] Comment on above: Performed By: #### C BCA, CMP, 3 #### [facility] ([id number]) [address] [place] [address] 20652 CO2 [Moles/Vol] 26 mmol/L Normal 22-32 [facility] Comment on above: Performed By: #### C BCA, CMP, 3039-3 #### [facility] ([id number]) [address] [place] [address] 59593 Creatinine [Mass/Vol] 1.03 mg/dL High 0.40-1.00 [facility] Comment on above: Result Comment: METH OD TRACEABLE TO IDMS STANDARD Performed By: #### C BCA, CMP, 0-3 #### [facility] ([id number]) [address] [place] [address] 01290 GFR/1.73 sq M.predicted among non-blacks MDRD (S/P/Bld) [Vol rate/Area] 65 mL/min/{1.73_m2} Normal >59 [facility] Comment on above: Result Comment: Reported eGFR is based on the CKD-EPI 2020 equation that does not use a race coefficient. Performed By: #### C KEYSHAWN KIRKPATRICK, 3040-3 #### [facility] ([id number]) [address] [place] [address] 74717 Glucose [Mass/Vol] 99 mg/dL Normal 65-99 [facility] Comment on above: Performed By: #### Terrie KIRKPATRICK CMP, 3 #### [facility] ([id number]) [address] [place] [address] 28026 Potassium [Moles/Vol] 3.4 mmol/L Low 3.5-5.0 [facility] Comment on above: Performed By: #### Terrie KIRKPATRICK CMP, 3039-3 #### [facility] ([id number]) [address] [place] [address] 32482 Protein [Mass/Vol] 6.9 g/dL Normal 6.0-8.0 [facility] Comment on above: Performed By: #### Terrie KIRKPATRICK CMP, 3040-3 #### [facility] ([id number]) [address] [place] [address] 53735 Sodium [Moles/Vol] 138 mmol/L Normal 134-146 [facility] Comment on above: Performed By: #### Terrie KIRKPATRICK CMP, 0-3 #### [facility] ([id number]) [address] [place] [address] 40993 Urea nitrogen [Mass/Vol] 10 mg/dL Normal 5-23 [facility] Comment on above: Performed By: #### Terrie KIRKPATRICK CMP, 3039-3 #### [facility] ([id number]) [address] [place] [address] BRAIN WO CONTon CT BRAIN WO [...] Johny Frances on 09/18/2023 9:21 PM Normal [facility] LIPASEon 09-18-2023 Lipase [Catalytic activity/Vol] 36 U/L Normal 17-40 [facility] Comment on above: Performed By: #### C BCA, CMP, 3040-3 #### [facility] ([id number]) [address] [place] [address] 10684 URN MACROSCOPIC NURon 2023 BILIRUBIN SHADY Negative Normal NEG [facility] Comment on above: Performed By: #### N UM #### [facility] ([id number]) [address] [place] [address] 41250 BLOOD/HGB SHADY Trace Abnormal NEG [facility] Comment on above: Performed By: #### N UM #### [facility] ([id number]) [address] [place] [address] 39064 GLUCOSE SHADY Negative Normal NEG [facility] Comment on above: Performed By: #### N UM #### [facility] ([id number]) [address] [place] [address] 02704 KETONES SHADY Negative Normal NEG [facility] Comment on above: Performed By: #### N UM #### [facility] ([id number]) [address] [place] [address] 81863 LEUKOCYTE ESTERASE SHADY Negative Normal NEG [facility] Comment on above: Performed By: #### N UM #### [facility] ([id number]) [address] [place] [address] 55162 NITRITE SHADY Negative Normal NEG [facility] Comment on above: Performed By: #### N UM #### [facility] ([id number]) [address] [place] [address] 24874 PH SHADY 6.0 Normal 5.0-8.5 [facility] Comment on above: Performed By: #### N UM #### [facility] ([id number]) [address] [place] [address] 32471 PROTEIN SHADY Negative Normal NEG [facility] Comment on above: Performed By: #### N UM #### [facility] ([id number]) [address] [place] [address] 79146 SPECIFIC GRAVITY SHADY 1.010 Normal 1.003-1.035 [facility] Comment on above: Performed By: #### N UM #### [facility] ([id number]) [address] [place] [address] 19587 UROBILINOGEN SHADY 0.2 eu/dL Normal <1.1 [facility] Comment on above: Performed By: #### N UM #### [facility] ([id number]) [address] [place] [address] 29877 Consent for Treatmenton 09-03 Consent for Treatment [id number]#1.0 0TIFF Normal [facility] Office/Cl inic Noteon 09-13-2023 [...] with voice recognition artificial intelligence software, specifically [employer], [employer] and or [employer]. Substitutions may have occurred due to the [...] History Ca (more content not included)... Normal [facility] Comment on above: Result Comment: Elec tronically Signed By: Deepak MOSES, Roosevelt Remy\.guillermina\Date and Time Signed: 09/13/23 13:41 EDT Insurance Correspondenceon 0 09-13-2023 Insurance Correspondence [id number]#1.0 0TIFF Normal [facility] Outside Labson 09-13-2023 Outside Labs [id number]#1. 00TIFF Normal [facility] Outside Recordson 09-13-2023 Outside Records [id number]#1. 00TIFF Normal [facility] Outside Records [id number]#1. 00TIFF [facility] Physician Orderon 09-13-2023 Physician Order [id number]#1. 00TIFF [facility] RAD - CT Reporton 08-31-2023 RAD - CT Report [id number]#1.00 TIFF Normal [facility] Lab Reportson 08-17-2023 Lab Reports [id number]#1.0 0TIFF [facility] Urine Cytology ([facility])on 0 08-17-2023 Microscopic exam Cytology (U) [Interp] Diagnosis Info Invalid Interpretation Code [facility] Comment on above: Result Comment: A:Ur ine,Urine:Voided Interpretation - MicroScopic Description - Adequacy - Gross Description Site ID:A color Light Yellow fixative Alcohol Specimen designated Urine received in alcohol preservative and labeled with the patient?s name, consists of 60ml clear light yellow fluid. Electronically signed by : on: 08/17/2023 14:12:20 Performed By: #### 1 [id number] ####[facility] [address] [place] [address] Lab Reportson 08-11-2023 Lab Reports [id number]#1.00 TIFF Normal [facility] Physician Referralon 024 Physician Referral [id number] 03 [id number]#1.0 0TIFF Normal [facility] RAD - MISCon 08-11-2023 RAD - MISC [id number] 03 [id number]#1.0 0TIFF Normal [facility] RAD - MISC [id number]#1.0 0TIFF Normal [facility] RAD - Ultrasound Reporton RAD - Ultrasound Report [id number]#1.0 0TIFF Normal [facility] RAD - Ultrasound Report [id number]#1.0 0TIFF Normal [facility] Screenson 08-11-2023 Screens [id number]#1.0 0TIFF [facility] Ambulatory Visit Summaryon 0 08-10-2023 Ambulatory Visit [...] JES ROLLE PA-C, URL When: Where: [address] [place] [address] [id number] Medications What How Much When Instructions Unchanged [...] make many (more content not included)... Normal [facility] Patient Educationon 08-10-19 Patient Education Pulmonary Medicine [...] require a prescription. You can also purchase bkqg-gbj-zfpfbfc medicines. Medicines may have nicotine in them [...] and encouragement. Call telephone quitlines, such as 3-811-RTVX-NOW, reach out to support groups, or work [...] quit smoki (more content not included)... Normal [facility] Urine Cytology ([facility])on 08-10-2023 Method of Extraction Voided Normal [facility] Comment on above: Performed By: #### 1 [id number] ####[facility] [address] [place] [address] Number of Jars 1 Invalid Interpretation Code [facility] Comment on above: Performed By: #### 1 [id number] ####[facility] [address] [place] [address] UC Specimen Urine Normal [facility] Comment on above: Performed By: #### 1 [id number] ####[facility] [address] [place] [address] Type of Service Technical Only Normal [facility] Comment on above: Performed By: #### 1 [id number] ####[facility] [address] [place] [address] Complete Blood Count Auto Di ffon 06-09-2023 Basophils (Bld) [#/Vol] 0.0 10*3/uL Normal 0.0-0.2 [facility] Comment on above: Order Comment: Reaso n for Exam Urinary frequency;Medication management;Anxiety;Microscopic Result Comment: PERF ORMED BY: [address] [place] [address] PATHOLOGIST [employer]ACH[employer] TENDER PALOMO WESLEY M.D. Performed By: #### C BC, [id number], THYROID SC, URMACRERAT, FE and TIBC, LIPID, SHAMA, LDLD, CMP ####[address]#### TOXASSURE, HIV SCREEN ####[facility] , Basophils/100 WBC (Bld) 0.3 % Normal . [facility] Comment on above: Order Comment: Reaso n for Exam Urinary frequency;Medication management;Anxiety;Microscopic Performed By: #### C BC, [id number], THYROID SC, URMACRERAT, FE and TIBC, LIPID, SHAMA, LDLD, CMP ####[address]#### TOXASSURE, HIV SCREEN ####[facility] , Eosinophils (Bld) [#/Vol] 0.1 10*3/uL Normal 0.0-0.45 [facility] Comment on above: Order Comment: Reaso n for Exam Urinary frequency;Medication management;Anxiety;Microscopic Performed By: #### C BC, [id number], THYROID SC, URMACRERAT, FE and TIBC, LIPID, SHAMA, LDLD, CMP ####[place] [address] [address]#### TOXASSURE, HIV SCREEN ####[facility] , Eosinophils/100 WBC (Bld) 1.7 % Normal . [facility] Comment on above: Order Comment: Reaso n for Exam Urinary frequency;Medication management;Anxiety;Microscopic Performed By: #### C BC, [id number], THYROID SC, URMACRERAT, FE and TIBC, LIPID, SHAMA, LDLD, CMP ####[address]#### TOXASSURE, HIV SCREEN ####[facility] , Erythrocyte distribution width (RBC) [Ratio] 13.2 % Normal 11.9-15.3 [facility] Comment on above: Order Comment: Reaso n for Exam Urinary frequency;Medication management;Anxiety;Microscopic Performed By: #### C BC, [id number], THYROID SC, URMACRERAT, FE and TIBC, LIPID, SHAMA, LDLD, CMP ####[address]#### TOXASSURE, HIV SCREEN ####[facility] , Hematocrit (Bld) [Volume fraction] 41.9 % Normal 34.0-46.4 [facility] Comment on above: Order Comment: Reaso n for Exam Urinary frequency;Medication management;Anxiety;Microscopic Performed By: #### C BC, [id number], THYROID SC, URMACRERAT, FE and TIBC, LIPID, SHAMA, LDLD, CMP ####[place] [address] [place]#### TOXASSURE, HIV SCREEN ####[facility] , Hemoglobin (Bld) [Mass/Vol] 14.0 g/dL Normal 11.8-15.4 [facility] Comment on above: Order Comment: Reaso n for Exam Urinary frequency;Medication management;Anxiety;Microscopic Performed By: #### C BC, [id number], THYROID SC, URMACRERAT, FE and TIBC, LIPID, SHAMA, LDLD, CMP ####[address]#### TOXASSURE, HIV SCREEN ####[facility] , Lymphocytes (Bld) [#/Vol] 2.2 10*3/uL Normal 1.00-4.8 [facility] Comment on above: Order Comment: Reaso n for Exam Urinary frequency;Medication management;Anxiety;Microscopic Performed By: #### C BC, [id number], THYROID SC, URMACRERAT, FE and TIBC, LIPID, SHAMA, LDLD, CMP ####[address]#### TOXASSURE, HIV SCREEN ####[facility] , Lymphocytes/100 WBC (Bld) 30.2 % Normal . [facility] Comment on above: Order Comment: Reaso n for Exam Urinary frequency;Medication management;Anxiety;Microscopic Performed By: #### C BC, [id number], THYROID SC, URMACRERAT, FE and TIBC, LIPID, SHAMA, LDLD, CMP ####[address]#### TOXASSURE, HIV SCREEN ####[facility] , MCH (RBC) [Entitic mass] 32.8 pg Normal 24.7-34.3 [facility] Comment on above: Order Comment: Reaso n for Exam Urinary frequency;Medication management;Anxiety;Microscopic Performed By: #### C BC, [id number], THYROID SC, URMACRERAT, FE and TIBC, LIPID, SHAMA, LDLD, CMP ####[address]#### TOXASSURE, HIV SCREEN ####[facility] , MCV (RBC) [Entitic vol] 98.5 fL Normal 80-100 [facility] Comment on above: Order Comment: Reaso n for Exam Urinary frequency;Medication management;Anxiety;Microscopic Performed By: #### C BC, [id number], THYROID SC, URMACRERAT, FE and TIBC, LIPID, SHAMA, LDLD, CMP ####[address]#### TOXASSURE, HIV SCREEN ####[facility] , Mean Corpuscular HGB Conc 33.3 g/dL Normal 32.0-35.0 [facility] Comment on above: Order Comment: Reaso n for Exam Urinary frequency;Medication management;Anxiety;Microscopic Performed By: #### C BC, [id number], THYROID SC, URMACRERAT, FE and TIBC, LIPID, SHAMA, LDLD, CMP ####[address]#### TOXASSURE, HIV SCREEN ####[facility] , Monocytes (Bld) [#/Vol] 0.8 10*3/uL Normal 0.0-0.8 [facility] Comment on above: Order Comment: Reaso n for Exam Urinary frequency;Medication management;Anxiety;Microscopic Performed By: #### C BC, [id number], THYROID SC, URMACRERAT, FE and TIBC, LIPID, SHAMA, LDLD, CMP ####[address]#### TOXASSURE, HIV SCREEN ####[facility] , Monocytes/100 WBC (Bld) 10.9 % Normal . [facility] Comment on above: Order Comment: Reaso n for Exam Urinary frequency;Medication management;Anxiety;Microscopic Performed By: #### C BC, [id number], THYROID SC, URMACRERAT, FE and TIBC, LIPID, SHAMA, LDLD, CMP ####[address]#### TOXASSURE, HIV SCREEN ####[facility] , Neutrophils (Bld) [#/Vol] 4.1 10*3/uL Normal 1.8-7.7 [facility] Comment on above: Order Comment: Reaso n for Exam Urinary frequency;Medication management;Anxiety;Microscopic Performed By: #### C BC, [id number], THYROID SC, URMACRERAT, FE and TIBC, LIPID, SHAMA, LDLD, CMP ####[address]#### TOXASSURE, HIV SCREEN ####[facility] , Neutrophils/100 WBC (Bld) 56.9 % Normal . [facility] Comment on above: Order Comment: Reaso n for Exam Urinary frequency;Medication management;Anxiety;Microscopic Performed By: #### C BC, [id number], THYROID SC, URMACRERAT, FE and TIBC, LIPID, SHAMA, LDLD, CMP ####[address]#### TOXASSURE, HIV SCREEN ####[facility] , NRBC% 0.1 /100{WBC} Normal 0-0.[address] [facility] Comment on above: Order Comment: Reaso n for Exam Urinary frequency;Medication management;Anxiety;Microscopic Performed By: #### C BC, [id number], THYROID SC, URMACRERAT, FE and TIBC, LIPID, SHAMA, LDLD, CMP ####[address]#### TOXASSURE, HIV SCREEN ####[facility] , Platelet mean volume (Bld) [Entitic vol] 9.0 fL Normal 6.3-10.7 [facility] Comment on above: Order Comment: Reaso n for Exam Urinary frequency;Medication management;Anxiety;Microscopic Performed By: #### C BC, [id number], THYROID SC, URMACRERAT, FE and TIBC, LIPID, SHAMA, LDLD, CMP ####[address]#### TOXASSURE, HIV SCREEN ####[facility] , Platelets (Bld) [#/Vol] 314 10*3/uL Normal 150-450 [facility] Comment on above: Order Comment: Reaso n for Exam Urinary frequency;Medication management;Anxiety;Microscopic Performed By: #### C BC, [id number], THYROID SC, URMACRERAT, FE and TIBC, LIPID, SHAMA, LDLD, CMP ####[place] [address] [address]#### TOXASSURE, HIV SCREEN ####[facility] , RBC (Bld) [#/Vol] 4.26 10*6/uL Normal 3.60-5.00 [facility] Comment on above: Order Comment: Reaso n for Exam Urinary frequency;Medication management;Anxiety;Microscopic Performed By: #### C BC, [id number], THYROID SC, URMACRERAT, FE and TIBC, LIPID, SHAMA, LDLD, CMP ####[address]#### TOXASSURE, HIV SCREEN ####[facility] , WBC (Bld) [#/Vol] 7.2 10*3/uL Normal 3.8-11.6 [facility] Comment on above: Order Comment: Reaso n for Exam Urinary frequency;Medication management;Anxiety;Microscopic Performed By: #### C BC, [id number], THYROID SC, URMACRERAT, FE and TIBC, LIPID, SHAMA, LDLD, CMP ####[place] [address] [place]#### TOXASSURE, HIV SCREEN ####[facility] , Comprehensive Metabolic Pane bryon 06-09-2023 Albumin [Mass/Vol] 4.2 g/dL Normal 3.5-5.7 [facility] Comment on above: Order Comment: Reaso n for Exam Urinary frequency;Medication management;Anxiety;Microscopic Reason for Exam Microscopic hematuria;Low iron Reason for Exam Bipolar affective disorder, currently depressed, moderate Reason for Exam Vitamin D deficiency Performed By: #### C BC, [id number], THYROID SC, URMACRERAT, FE and TIBC, LIPID, SHAMA, LDLD, CMP ####[address]#### TOXASSURE, HIV SCREEN ####[facility] , Albumin/Globulin [Mass ratio] 1.4 {ratio} Normal [facility] Comment on above: Order Comment: Reaso n for Exam Urinary frequency;Medication management;Anxiety;Microscopic Reason for Exam Microscopic hematuria;Low iron Reason for Exam Bipolar affective disorder, currently depressed, moderate Reason for Exam Vitamin D deficiency Performed By: #### C BC, [id number], THYROID SC, URMACRERAT, FE and TIBC, LIPID, SHAMA, LDLD, CMP ####[address]#### TOXASSURE, HIV SCREEN ####[facility] , ALP [Catalytic activity/Vol] 87 U/L Normal 34-104 [facility] Comment on above: Order Comment: Reaso n for Exam Urinary frequency;Medication management;Anxiety;Microscopic Reason for Exam Microscopic hematuria;Low iron Reason for Exam Bipolar affective disorder, currently depressed, moderate Reason for Exam Vitamin D deficiency Performed By: #### C BC, [id number], THYROID SC, URMACRERAT, FE and TIBC, LIPID, SHAMA, LDLD, CMP ####[address]#### TOXASSURE, HIV SCREEN ####[facility] , ALT [Catalytic activity/Vol] 10 U/L Normal 7-52 [facility] Comment on above: Order Comment: Reaso n for Exam Urinary frequency;Medication management;Anxiety;Microscopic Reason for Exam Microscopic hematuria;Low iron Reason for Exam Bipolar affective disorder, currently depressed, moderate Reason for Exam Vitamin D deficiency Performed By: #### C BC, [id number], THYROID SC, URMACRERAT, FE and TIBC, LIPID, SHAMA, LDLD, CMP ####[place] [address] [place]#### TOXASSURE, HIV SCREEN ####[facility] , Anion gap [Moles/Vol] 12.9 mmol/L Normal 6.0-15.0 [facility] Comment on above: Order Comment: Reaso n for Exam Urinary frequency;Medication management;Anxiety;Microscopic Reason for Exam Microscopic hematuria;Low iron Reason for Exam Bipolar affective disorder, currently depressed, moderate Reason for Exam Vitamin D deficiency Performed By: #### C BC, [id number], THYROID SC, URMACRERAT, FE and TIBC, LIPID, SHAMA, LDLD, CMP ####[place] [address] [address]#### TOXASSURE, HIV SCREEN ####[facility] , AST [Catalytic activity/Vol] 12 U/L Low 13-39 [facility] Comment on above: Order Comment: Reaso n for Exam Urinary frequency;Medication management;Anxiety;Microscopic Reason for Exam Microscopic hematuria;Low iron Reason for Exam Bipolar affective disorder, currently depressed, moderate Reason for Exam Vitamin D deficiency Performed By: #### C BC, [id number], THYROID SC, URMACRERAT, FE and TIBC, LIPID, SHAMA, LDLD, CMP ####[place] [address] [address]#### TOXASSURE, HIV SCREEN ####[facility] , Bilirubin [Mass/Vol] 0.2 mg/dL Low 0.3-1.0 [facility] Comment on above: Order Comment: Reaso n for Exam Urinary frequency;Medication management;Anxiety;Microscopic Reason for Exam Microscopic hematuria;Low iron Reason for Exam Bipolar affective disorder, currently depressed, moderate Reason for Exam Vitamin D deficiency Performed By: #### C BC, [id number], THYROID SC, URMACRERAT, FE and TIBC, LIPID, SHAMA, LDLD, CMP ####[place] [address] [place] [address] [place]#### TOXASSURE, HIV SCREEN ####[facility] , Calcium [Mass/Vol] 9.5 mg/dL Normal 8.6-10.3 [facility] Comment on above: Order Comment: Reaso n for Exam Urinary frequency;Medication management;Anxiety;Microscopic Reason for Exam Microscopic hematuria;Low iron Reason for Exam Bipolar affective disorder, currently depressed, moderate Reason for Exam Vitamin D deficiency Performed By: #### C BC, [id number], THYROID SC, URMACRERAT, FE and TIBC, LIPID, SHAMA, LDLD, CMP ####[address]#### TOXASSURE, HIV SCREEN ####[facility] , Chloride [Moles/Vol] 105 mmol/L Normal 98-107 [facility] Comment on above: Order Comment: Reaso n for Exam Urinary frequency;Medication management;Anxiety;Microscopic Reason for Exam Microscopic hematuria;Low iron Reason for Exam Bipolar affective disorder, currently depressed, moderate Reason for Exam Vitamin D deficiency Performed By: #### C BC, [id number], THYROID SC, URMACRERAT, FE and TIBC, LIPID, SHAMA, LDLD, CMP ####[address]#### TOXASSURE, HIV SCREEN ####[facility] , CO2 [Moles/Vol] 25.0 mmol/L Normal 21.0-31.0 [facility] Comment on above: Order Comment: Reaso n for Exam Urinary frequency;Medication management;Anxiety;Microscopic Reason for Exam Microscopic hematuria;Low iron Reason for Exam Bipolar affective disorder, currently depressed, moderate Reason for Exam Vitamin D deficiency Performed By: #### C BC, [id number], THYROID SC, URMACRERAT, FE and TIBC, LIPID, SHAMA, LDLD, CMP ####[address]#### TOXASSURE, HIV SCREEN ####[facility] , Creatinine [Mass/Vol] 0.63 mg/dL Normal 0.60-1.20 [facility] Comment on above: Order Comment: Reaso n for Exam Urinary frequency;Medication management;Anxiety;Microscopic Reason for Exam Microscopic hematuria;Low iron Reason for Exam Bipolar affective disorder, currently depressed, moderate Reason for Exam Vitamin D deficiency Performed By: #### C BC, [id number], THYROID SC, URMACRERAT, FE and TIBC, LIPID, SHAMA, LDLD, CMP ####[place] [address] [address]#### TOXASSURE, HIV SCREEN ####[facility] , GFR/1.73 sq M.predicted MDRD (S/P/Bld) [Vol rate/Area] mL/min/{1.73_m2} Normal [facility] Comment on above: Order Comment: Reaso n for Exam Urinary frequency;Medication management;Anxiety;Microscopic Reason for Exam Microscopic hematuria;Low iron Reason for Exam Bipolar affective disorder, currently depressed, moderate Reason for Exam Vitamin D deficiency Performed By: #### C BC, [id number], THYROID SC, URMACRERAT, FE and TIBC, LIPID, SHAMA, LDLD, CMP ####[address]#### TOXASSURE, HIV SCREEN ####[facility] , Globulin (S) [Mass/Vol] 2.9 g/dL Normal [facility] Comment on above: Order Comment: Reaso n for Exam Urinary frequency;Medication management;Anxiety;Microscopic Reason for Exam Microscopic hematuria;Low iron Reason for Exam Bipolar affective disorder, currently depressed, moderate Reason for Exam Vitamin D deficiency Performed By: #### C BC, [id number], THYROID SC, URMACRERAT, FE and TIBC, LIPID, SHAMA, LDLD, CMP ####[address]#### TOXASSURE, HIV SCREEN ####[facility] , Glucose [Mass/Vol] 90 mg/dL Normal 70-100 [facility] Comment on above: Order Comment: Reaso n for Exam Urinary frequency;Medication management;Anxiety;Microscopic Reason for Exam Microscopic hematuria;Low iron Reason for Exam Bipolar affective disorder, currently depressed, moderate Reason for Exam Vitamin D deficiency Result Comment: [facility] Glucose Reference Range is dependent on time and content of last meal. Glucose of more than 200 mg/dL in a nonstressed, ambulatory subject supports the diagnosis of Diabetes Mellitus. ADA recommended reference range Performed By: #### C BC, [id number], THYROID SC, URMACRERAT, FE and TIBC, LIPID, SHAMA, LDLD, CMP ####[facility]#### TOXASSURE, HIV SCREEN ####[facility] , Potassium [Moles/Vol] 3.9 mmol/L Normal 3.5-5.1 [facility] Comment on above: Order Comment: Reaso n for Exam Urinary frequency;Medication management;Anxiety;Microscopic Reason for Exam Microscopic hematuria;Low iron Reason for Exam Bipolar affective disorder, currently depressed, moderate Reason for Exam Vitamin D deficiency Performed By: #### C BC, [id number], THYROID SC, URMACRERAT, FE and TIBC, LIPID, SHAMA, LDLD, CMP ####[facility]#### TOXASSURE, HIV SCREEN ####[facility] , Protein [Mass/Vol] 7.1 g/dL Normal 6.4-8.9 [facility] Comment on above: Order Comment: Reaso n for Exam Urinary frequency;Medication management;Anxiety;Microscopic Reason for Exam Microscopic hematuria;Low iron Reason for Exam Bipolar affective disorder, currently depressed, moderate Reason for Exam Vitamin D deficiency Performed By: #### C BC, [id number], THYROID SC, URMACRERAT, FE and TIBC, LIPID, SHAMA, LDLD, CMP ####[place] [address] [place]#### TOXASSURE, HIV SCREEN ####[facility] , Sodium [Moles/Vol] 139 mmol/L Normal 136-145 [facility] Comment on above: Order Comment: Reaso n for Exam Urinary frequency;Medication management;Anxiety;Microscopic Reason for Exam Microscopic hematuria;Low iron Reason for Exam Bipolar affective disorder, currently depressed, moderate Reason for Exam Vitamin D deficiency Performed By: #### C BC, [id number], THYROID SC, URMACRERAT, FE and TIBC, LIPID, SHAMA, LDLD, CMP ####[facility] [place] [address] [place]#### TOXASSURE, HIV SCREEN ####[facility] , Urea nitrogen [Mass/Vol] 14 mg/dL Normal 7-25 [facility] Comment on above: Order Comment: Reaso n for Exam Urinary frequency;Medication management;Anxiety;Microscopic Reason for Exam Microscopic hematuria;Low iron Reason for Exam Bipolar affective disorder, currently depressed, moderate Reason for Exam Vitamin D deficiency Performed By: #### C BC, [id number], THYROID SC, URMACRERAT, FE and TIBC, LIPID, SHAMA, LDLD, CMP ####[facility]#### TOXASSURE, HIV SCREEN ####[facility] , Ferritinon 06-09-2023 Ferritin [Mass/Vol] 78.9 ng/mL Normal 11.0-306.8 [facility] Comment on above: Order Comment: Reaso n for Exam Urinary frequency;Medication management;Anxiety;Microscopic Reason for Exam Microscopic hematuria;Low iron Reason for Exam Bipolar affective disorder, currently depressed, moderate Reason for Exam Vitamin D deficiency Performed By: #### C BC, [id number], THYROID SC, URMACRERAT, FE and TIBC, LIPID, SHAMA, LDLD, CMP ####[place] [address] [address]#### TOXASSURE, HIV SCREEN ####[facility] , HIV 1/O/2 Antigen/Antibodyon 06-09-2023 HIV Screen 4th Generation Non-Reactive Normal Non Reactive [facility] Comment on above: Order Comment: Reaso n for Exam Polysubstance abuse Result Comment: HIV Negative HIV-1/HIV-2 antibodies and HIV-1 p24 antigen were NOT detected. There is no laboratory evidence of HIV infection. Performed at: [facility] [address] [id number] [employer] Maker: Kurtis Gallegos PhD, Phone: [phone] PERFORMED BY: [facility] [address] [place] [address] PATHOLOGIST MARBLEIZING MACHINE TENDER PALOMO WESLEY M.D. Performed By: #### C BC, [id number], THYROID SC, URMACRERAT, FE and TIBC, LIPID, SHAMA, LDLD, CMP ####[place] [address] [address]#### TOXASSURE, HIV SCREEN ####[facility] , Iron and TIBC Profileon % Iron Saturation 22.1 % Normal 20-50 [facility] Comment on above: Order Comment: Reaso n for Exam Urinary frequency;Medication management;Anxiety;Microscopic Reason for Exam Microscopic hematuria;Low iron Reason for Exam Bipolar affective disorder, currently depressed, moderate Reason for Exam Vitamin D deficiency Performed By: #### C BC, [id number], THYROID SC, URMACRERAT, FE and TIBC, LIPID, SHAMA, LDLD, CMP ####[place] [address] [address]#### TOXASSURE, HIV SCREEN ####[facility] , Iron [Mass/Vol] 93 ug/dL Normal 50-212 [facility] Comment on above: Order Comment: Reaso n for Exam Urinary frequency;Medication management;Anxiety;Microscopic Reason for Exam Microscopic hematuria;Low iron Reason for Exam Bipolar affective disorder, currently depressed, moderate Reason for Exam Vitamin D deficiency Performed By: #### C BC, [id number], THYROID SC, URMACRERAT, FE and TIBC, LIPID, SHAMA, LDLD, CMP ####[place] [id number] [place]#### TOXASSURE, HIV SCREEN ####[facility] , Total Iron Binding Capacity 420 ug/dL Normal 255-450 [facility] Comment on above: Order Comment: Reaso n for Exam Urinary frequency;Medication management;Anxiety;Microscopic Reason for Exam Microscopic hematuria;Low iron Reason for Exam Bipolar affective disorder, currently depressed, moderate Reason for Exam Vitamin D deficiency Performed By: #### C BC, [id number], THYROID SC, URMACRERAT, FE and TIBC, LIPID, SHAMA, LDLD, CMP ####[place] [address] [address]#### TOXASSURE, HIV SCREEN ####[facility] , Transferrin [Mass/Vol] 300 mg/dL Normal 203-362 [facility] Comment on above: Order Comment: Reaso n for Exam Urinary frequency;Medication management;Anxiety;Microscopic Reason for Exam Microscopic hematuria;Low iron Reason for Exam Bipolar affective disorder, currently depressed, moderate Reason for Exam Vitamin D deficiency Performed By: #### C BC, [id number], THYROID SC, URMACRERAT, FE and TIBC, LIPID, SHAMA, LDLD, CMP ####[address]#### TOXASSURE, HIV SCREEN ####[facility] , LDL Cholesterol Measuredon 0 06-09-2023 LDL Cholesterol Measured 122 mg/dL High 0-100 [facility] Comment on above: Order [...] Very high Performed By: #### C BC, [id number], THYROID SC, URMACRERAT, FE and TIBC, LIPID, SHAMA, LDLD, CMP ####[address]#### TOXASSURE, HIV SCREEN ####[facility] , Lipid Panelon 06-09-2023 Cholesterol [Mass/Vol] 216 mg/dL High 140-200 [facility] Comment on above: Order Comment: Reaso n for Exam Urinary frequency;Medication management;Anxiety;Microscopic Reason for Exam Microscopic hematuria;Low iron Reason for Exam Bipolar affective disorder, currently depressed, moderate Reason for Exam Vitamin D deficiency Result Comment: Chol less than 200 mg/dl low risk Chol 201-239 mg/dl borderline risk Chol 240 mg/dl and greater high risk Performed By: #### C BC, [id number], THYROID SC, URMACRERAT, FE and TIBC, LIPID, SHAMA, LDLD, CMP ####[place] [address] [address]#### TOXASSURE, HIV SCREEN ####[facility] , Cholesterol in HDL [Mass/Vol] 69 mg/dL Normal 23-92 [facility] Comment on above: Order Comment: Reaso n for Exam Urinary frequency;Medication management;Anxiety;Microscopic Reason for Exam Microscopic hematuria;Low iron Reason for Exam Bipolar affective disorder, currently depressed, moderate Reason for Exam Vitamin D deficiency Result Comment: HDL CHOL ATP-III CLASSIFICATION Cardiovascular Risk HDL > or equal to 60 mg/dL LOW HDL < 40 mg/dL HIGH Performed By: #### C BC, [id number], THYROID SC, URMACRERAT, FE and TIBC, LIPID, SHAMA, LDLD, CMP ####[address]#### TOXASSURE, HIV SCREEN ####[facility] , Cholesterol.total/Chol esterol in HDL [Mass ratio] 3.1 {ratio} Normal <5.0 [facility] Comment on above: Order Comment: Reaso n for Exam Urinary frequency;Medication management;Anxiety;Microscopic Reason for Exam Microscopic hematuria;Low iron Reason for Exam Bipolar affective disorder, currently depressed, moderate Reason for Exam Vitamin D deficiency Performed By: #### C BC, [id number], THYROID SC, URMACRERAT, FE and TIBC, LIPID, SHAMA, LDLD, CMP ####[place] [address] [place]#### TOXASSURE, HIV SCREEN ####[facility] , LDL Cholesterol,Calculated Not performed Normal 0-100 [facility] Comment on above: Order Comment: Reaso n for Exam Urinary frequency;Medication management;Anxiety;Microscopic Reason for Exam Microscopic hematuria;Low iron Reason for Exam Bipolar affective disorder, currently depressed, moderate Reason for Exam Vitamin D deficiency Performed By: #### C BC, [id number], THYROID SC, URMACRERAT, FE and TIBC, LIPID, SHAMA, LDLD, CMP ####[place] [address] [address]#### TOXASSURE, HIV SCREEN ####[facility] , Triglyceride w/Reflex 443 mg/dL High 0-149 [facility] Comment on above: Order [...] and resulted. Performed By: #### C BC, [id number], THYROID SC, URMACRERAT, FE and TIBC, LIPID, SHAMA, LDLD, CMP ####[place] [address] [address]#### TOXASSURE, HIV SCREEN ####[facility] , VLDL CHOLESTEROL 88 mg/dL Normal [facility] Comment on above: Order Comment: Reaso n for Exam Urinary frequency;Medication management;Anxiety;Microscopic Reason for Exam Microscopic hematuria;Low iron Reason for Exam Bipolar affective disorder, currently depressed, moderate Reason for Exam Vitamin D deficiency Performed By: #### C BC, [id number], THYROID SC, URMACRERAT, FE and TIBC, LIPID, SHAMA, LDLD, CMP ####[place] [address] [address]#### TOXASSURE, HIV SCREEN ####[facility] , MicroAlb Creat Ratio,Uon Albumin DL <= 20 mg/L (U) [Mass/Vol] 2.1 mg/dL High 0.0-1.8 [facility] Comment on above: Order Comment: Reaso n for Exam Urinary frequency;Microscopic hematuria Performed By: #### C BC, [id number], THYROID SC, URMACRERAT, FE and TIBC, LIPID, SHAMA, LDLD, CMP ####[place] [address] [address]#### TOXASSURE, HIV SCREEN ####[facility] , Creatinine, Urine (Random) 66.0 mg/dL High 11.0-20.0 [facility] Comment on above: Order Comment: Reaso n for Exam Urinary frequency;Microscopic hematuria Performed By: #### C BC, [id number], THYROID SC, URMACRERAT, FE and TIBC, LIPID, SHAMA, LDLD, CMP ####[place] [address] [address]#### TOXASSURE, HIV SCREEN ####[facility] , Microalbumin/Creatinin e Ratio 31.0 mg/g High 0.0-30.0 [facility] Comment on above: Order Comment: Reaso n for Exam Urinary frequency;Microscopic hematuria Result Comment: 30-3 00 mg/g indicates an increased risk for diabetic nephropathy. Greater than 300 mg/g is consistent with clinical nephropathy. (Am. J. Kidney Disease 1995, 25:107) PERFORMED BY: [facility] [address] [place] [address] PATHOLOGIST MARBLEIZING MACHINE TENDER PALOMO WESLEY M.D. Performed By: #### C BC, [id number], THYROID SC, URMACRERAT, FE and TIBC, LIPID, SHAMA, LDLD, CMP ####[place] [address] [address]#### TOXASSURE, HIV SCREEN ####[facility] , THYROID SCREENon 06-09-2023 Free T4 [Mass/Vol] 0.68 ng/dL Normal 0.61-1.12 [facility] Comment on above: Order Comment: Reaso n for Exam Urinary frequency;Medication management;Anxiety;Microscopic Reason for Exam Microscopic hematuria;Low iron Reason for Exam Bipolar affective disorder, currently depressed, moderate Reason for Exam Vitamin D deficiency Performed By: #### C BC, [id number], THYROID SC, URMACRERAT, FE and TIBC, LIPID, SHAMA, LDLD, CMP ####[facility]#### TOXASSURE, HIV SCREEN ####[facility] , TSH Qn 2.09 m[IU]/L Normal 0.45-5.33 [facility] Comment on above: Order Comment: Reaso n for Exam Urinary frequency;Medication management;Anxiety;Microscopic Reason for Exam Microscopic hematuria;Low iron Reason for Exam Bipolar affective disorder, currently depressed, moderate Reason for Exam Vitamin D deficiency Performed By: #### C BC, [id number], THYROID SC, URMACRERAT, FE and TIBC, LIPID, SHAMA, LDLD, CMP ####[facility] [address] [address]#### TOXASSURE, HIV SCREEN ####[facility] , Toxassure, Urineon 4 Toxassure, Urine Summary FINAL Normal . [facility] Comment on above: Order [...] test is not intended to distinguish between htelp-7-quzlrqlxdopkskahfxzf, the predominant form of THC in most herbal or marijuana-based products, and akazw-0-lzzwezjthbnpnvadqhfa. Gabapentin PRESENT Cyclobenzaprine PRESENT Desmethylcyclobenzaprine PRESENT Desmethylcyclobenzaprine is an expected metabolite of cyclobenzaprine. Naproxen PRESENT ===== Test Result Flag Units Ref Range Creatinine 63 mg/dL >=20 ===== Declared Medications: Medication list was not provided. ===== For clinical consultation, please call . ===== Performed at: [employer] [address] [place] [id number] Fiberglass Boat Maker: Ana Munoz [facility], Phone: [phone] PERFORMED BY: [place] [address] [place] [address] PATHOLOGIST MARBLEIZING MACHINE TENDER PALOMO WESLEY M.D. Performed By: #### C BC, [id number], THYROID SC, URMACRERAT, FE and TIBC, LIPID, SHAMA, LDLD, CMP ####[place] [address] [place] [address] [facility]#### TOXASSURE, HIV SCREEN ####[facility] , Vitamin D 25 Hydroxy Totalon 06-09-2023 Vitamin D 25 Hydroxy Total 19.8 ng/mL Low 30-100 [facility] Comment on above: Order [...] practice guideline. JCEM. 2010; 96(7):1911-30. PERFORMED BY: [facility] [address] [place] [address] PATHOLOGIST MARBLEIZING MACHINE TENDER PALOMO WESLEY M.D. Performed By: #### C BC, [id number], THYROID SC, URMACRERAT, FE and TIBC, LIPID, SHAMA, LDLD, CMP ####[place] [address] [place] [address] [facility]#### TOXASSURE, HIV SCREEN ####[facility] , Formson 04-26-2023 Forms [id number]#1. 00TIFF Normal [facility] NM Myocardial Spect Rest/Str ess 1 Dayon [...] Stress Dose (mCi Tc99M Cardiolite): 28.9 Normal [facility] Stress EKG Tracingson 2023 Stress EKG Tracings [id number]#1. 00TIFF Normal [facility] Consent for Treatmenton 04-05 Consent for Treatment [id number]#1.0 0TIFF Normal [facility] Heart and Vascular Office/Cl inic Noteon 04-11-2023 [...] with voice recognition artificial intelligence software, specifically [employer], [employer] and or [employer]. Substitutions may have occurred with voice recognition and artificial intelligence software. Documentation services were performed after patient or guardian consented to allow [email or web address] to record this visit. ANDERSON technical specialist and provider reviewed before signing. ANDERSON: [...] 3 refi (more content not included)... Normal [facility] Comment on above: Result Comment: Elec tronically Signed By: Ramone Garcia MD\.br\Date and Time Signed: 04/11/23 19:52 EST\.br\Electronically Co-Signed By: Janie Villarreal\.br\Date and Time Co-Signed: 03/22/23 14:46 EST US renal BIon 04-01-2023 US renal BI [facility] [place] [address] Ultrasound Report Signed Patient: Isela Craig MR#: [id number] : 1970 Acct:[id number] Age/Sex: 52 / F ADM Date: 04/01/23 Loc: Room: Type: [facility] Attending Dr: Jes Cruz [employer]-C Ordering Provider: Jes Cruz Date of Service: 04/01/23 US/US renal BI: R31.9 ([id number]) US/US bladder: R31.9 Copies to: Jes Cruz [...] Johns Jr., D.OShyanne04/01/2023 3:16 PM Dictation Location: [place] [address] Tech: Chloe Delcid Transcribed By: FLORES 04/01/23 151 Dictated By: Freddy Johns Jr, DO 04/01/23 1512 Signed By: 04/01/23 1516 Normal [facility] XR KUBon 04-01-2023 XR KUB [facility] [place] [address] XRay Report Signed Patient: Isela Craig MR#: [id number] : 1970 Acct:[id number] Age/Sex: 52 / F ADM Date: 04/01/23 Loc: Room: Type: [facility] Attending Dr: Jes Cruz [employer]-C Copies to: Jes Cruz Ordering Provider: Jes [...] Shae Guzman M.D.04/01/2023 3:38 PM Dictation Location: [place] [address] Transcribed By: [facility] 04/01/23 1538 Dictated By: Shae Guzman MD 04/01/23 1536 Signed By: 04/01/23 1538 Normal [facility] Insurance Correspondenceon 05-24-2022 Insurance Correspondence [id number]#1.0 0TIFF Normal [facility] Consent for Treatmenton 03-05 Consent for Treatment [id number]#1.0 0TIFF Normal [facility] Physician Orderon 03-22-2023 Physician Order [id number]#1 .00TIFF Normal [facility] Referrals Officeon 3 Referrals Office [id number] .00TIFF Normal [facility] COVID Quick Testingon 2022 Result Negative [employer] Other Quick Strepon 12-15-2022 S. pyogenes Org specific cx Ql (Throat) Negative [employer] Other Quick Strep [employer] Other COVID + FLU Quick Testingon 10-14-2022 SARS-CoV-2 (COVID-19) RNA AISSATOU+probe Ql (Unsp spec) Negative [employer] Other COVID + FLU Quick Testing Negative [employer] Other Quick Strepon 10-14-2022 S. pyogenes Org specific cx Ql (Throat) Negative [employer] Other Quick Strep [employer] Other Office Visit (Cardiology)on 06-24-2022 Follow-up visit [...] contact the office if new symptoms arise. [employer] 6 weeks Chief Complaint Add on d/t [...] department evaluation. Last week she presented to [facility] due to chest pain and dizziness. [...] and fluttering . 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 Due to blood pressure and palpitations [...] Recorded: 24Jun2022 09:32AM Heart Rate88, R Radial Oeoujelo874, RUE, Si (more content not included)... Normal [employer] Tobacco Screening.on 023 Adult depression screening assessment No [facility] [employer] 250 DO Work Phone: Tobacco use status CPHS a) Yes [facility] [employer] 250 DO Work Phone: Tobacco Screening. Yes [facility] 250 DO Work Phone: Alanine aminotransferase [En zymatic activity/volume] in Serum or PlasmaOrdered By: Jes Cruz on 06-19-2022 ALT [Catalytic activity/Vol] 11 U/L [facility] Albumin [Mass/volume] in Ser um or Plasma by Bromocresol green (BCG) dye binding methoOrdered By: Jes Cruz on 06-19-2022 Albumin BCG dye [Mass/Vol] 4.0 g/dL 3.5-5.7 [facility] Alkaline phosphatase [Enzyma tic activity/volume] in Serum or PlasmaOrdered By: Jes Cruz on 06-19-2022 ALP [Catalytic activity/Vol] 70 U/L 34-104 [facility] Aspartate aminotransferase [ Enzymatic activity/volume] in Serum or PlasmaOrdered By: Jes Cruz on 06-19-2022 AST [Catalytic activity/Vol] 11 U/L 13-39 [facility] Basophils Auto (Bld) [#/Vol] Ordered By: Jes Cruz on 06-19-2022 Basophils (Bld) [#/Vol] 0.1 10*3/uL 0.0-0.2 [facility] Basophils/100 WBC Auto (Bld) Ordered By: Jes Cruz on 06-19-2022 Basophils/100 WBC (Bld) 1.2 % . [facility] Bilirubin.total [Mass/volume ] in Serum or PlasmaOrdered By: Jes Cruz on 06-19-2022 Bilirubin [Mass/Vol] 0.2 mg/dL 0.3-1.0 [facility] C reactive protein [Mass/vol ume] in Serum or Plasma by High sensitivity methodOrdered By: Jes Cruz on 06-19-2022 CRP High sensitivity method [Mass/Vol] 0.4 mg/L 0.0-0.9 [facility] Comment on above: Cardiovascular Risk [...] on 06-19-2022 Calcium [Mass/Vol] 9.1 mg/dL 8.6-10.3 [facility] Carbon dioxide, total [Moles /volume] in Serum or PlasmaOrdered By: Jes Cruz on 06-19-2022 CO2 [Moles/Vol] 24.4 mmol/L 21.0-31.0 [facility] Chloride [Moles/volume] in S shanna or PlasmaOrdered By: Jes Cruz on 06-19-2022 Chloride [Moles/Vol] 108 mmol/L 98-107 [facility] Cholesterol [Mass/volume] in Serum or PlasmaOrdered By: Jes Cruz on 06-19-2022 Cholesterol [Mass/Vol] 190 mg/dL 140-200 [facility] Comment on above: Chol less than 200 m g/dl low riskChol 201-239 mg/dl borderline riskChol 240 mg/dl and greater high risk Cholesterol in LDL Calc [Mas s/Vol]Ordered By: Jes Cruz on 06-19-2022 Cholesterol in LDL [Mass/Vol] 74 mg/dL 0-100 [facility] Comment on above: LDL ATP III CLASSIFI CATIONLDL less than 100 mg/dL OptimalLDL 100-129 mg/dL Near or above optimalLDL 130-159 mg/dL Borderline highLDL 160-189 mg/dL HighLDL greater than 189 mg/dL Very high Cholesterol in VLDL Calc [Ma ss/Vol]Ordered By: Jes Cruz on 06-19-2022 Cholesterol in VLDL [Mass/Vol] 48 mg/dL [facility] Creatine kinase [Enzymatic a ctivity/volume] in Serum or PlasmaOrdered By: Jes Cruz on 06-19-2022 CK [Catalytic activity/Vol] 35 U/L 30-223 [facility] Creatine kinase.MB [Mass/vol ume] in Serum or PlasmaOrdered By: Jes Cruz on 06-19-2022 CK.MB [Mass/Vol] 2.3 ng/mL 0.6-6.3 [facility] Creatinine [Mass/volume] in Serum or PlasmaOrdered By: Jes Cruz on 06-19-2022 Creatinine [Mass/Vol] 0.79 mg/dL 0.60-1.20 [facility] Eosinophils Auto (Bld) [#/Vo l]Ordered By: Jes Cruz on 06-19-2022 Eosinophils (Bld) [#/Vol] 0.2 10*3/uL 0.0-0.45 [facility] Eosinophils/100 WBC Auto (Bl d)Ordered By: Jes Cruz on 06-19-2022 Eosinophils/100 WBC (Bld) 2.5 % . [facility] Erythrocyte distribution wid th Auto (RBC) [Ratio]Ordered By: Jes Cruz on 06-19-2022 Erythrocyte distribution width (RBC) [Ratio] 13.2 % 11.9-15.3 [facility] Globulin Calc (S) [Mass/Vol] Ordered By: Jes Cruz on 06-19-2022 Globulin (S) [Mass/Vol] 2.3 g/dL [facility] Glucose [Mass/volume] in Ser um or PlasmaOrdered By: Jes Cruz on 06-19-2022 Glucose [Mass/Vol] 94 mg/dL 74-109 [facility] Comment on above: ADA recommended refe rence rangeRandom Glucose Reference Range is dependent on time and content of last meal. Glucose of more than 200 mg/dL in a nonstressed, ambulatory subject supports the diagnosis of Diabetes Mellitus. Hematocrit Auto (Bld) [Volum e fraction]Ordered By: Jes Cruz on 06-19-2022 Hematocrit (Bld) [Volume fraction] 39.3 % 34.0-46.4 [facility] Hemoglobin [Mass/volume] in BloodOrdered By: Jes Cruz on 06-19-2022 Hemoglobin (Bld) [Mass/Vol] 13.1 g/dL 11.8-15.4 [facility] Laboratory - Chemistry and C hemistry - challengeOrdered By: Jes Cruz on 06-19-2022 GFR/1.73 sq M.predicted MDRD (S/P/Bld) [Vol rate/Area] mL/min/{1.73_m2} [facility] Leukocytes [#/volume] correc ricardo for nucleated erythrocytes in Blood by Automated counOrdered By: Jes Cruz on 06-19-2022 WBC corrected for nucl RBC Auto (Bld) [#/Vol] 8.2 10*3/uL 3.8-11.6 [facility] Lymphocytes Auto (Bld) [#/Vo l]Ordered By: Jes Cruz on 06-19-2022 Lymphocytes (Bld) [#/Vol] 2.5 10*3/uL 1.00-4.8 [facility] Lymphocytes/100 WBC Auto (Bl d)Ordered By: Jes Cruz on 06-19-2022 Lymphocytes/100 WBC (Bld) 30.3 % . [facility] MCH Auto (RBC) [Entitic mass ]Ordered By: Jes Cruz on 06-19-2022 MCH (RBC) [Entitic mass] 33.2 pg 24.7-34.3 [facility] MCHC Auto (RBC) [Mass/Vol]Or dered By: Jes Cruz on 06-19-2022 MCHC (RBC) [Mass/Vol] 33.4 g/dL 32.0-35.0 [facility] MCV Auto (RBC) [Entitic vol] Ordered By: Jes Cruz on 06-19-2022 MCV (RBC) [Entitic vol] 99.5 fL 80-100 [facility] Monocytes Auto (Bld) [#/Vol] Ordered By: Jes Cruz on 06-19-2022 Monocytes (Bld) [#/Vol] 1.0 10*3/uL 0.0-0.8 [facility] Monocytes/100 WBC Auto (Bld) Ordered By: Jes Cruz on 06-19-2022 Monocytes/100 WBC (Bld) 11.6 % . [facility] Natriuretic peptide B [Mass/ Vol]Ordered By: Jes Cruz on 06-19-2022 Natriuretic peptide B (Bld) [Mass/Vol] 87.0 pg/mL 5-100 [facility] Neutrophils Auto (Bld) [#/Vo l]Ordered By: Jes Cruz on 06-19-2022 Neutrophils (Bld) [#/Vol] 4.5 10*3/uL 1.8-7.7 [facility] Neutrophils/100 WBC Auto (Bl d)Ordered By: Jes Cruz on 06-19-2022 Neutrophils/100 WBC (Bld) 54.4 % . [facility] No Panel InformationOrdered By: Jes Cruz on 06-19-2022 Pharmacy Creatinine Clearance (Chem N/A [facility] Nucleated erythrocytes [Pres ence] in Blood by Automated countOrdered By: Jes Cruz on 06-19-2022 Nucleated RBC Auto Ql (Bld) 0.2 /100{WBC} 0-0.5 [facility] Platelet mean volume Auto (B ld) [Entitic vol]Ordered By: Jes Cruz on 06-19-2022 Platelet mean volume (Bld) [Entitic vol] 10.2 fL 6.3-10.7 [facility] Platelets Auto (Bld) [#/Vol] Ordered By: Jes Cruz on 06-19-2022 Platelets (Bld) [#/Vol] 297 10*3/uL 150-450 [facility] Potassium [Moles/volume] in Serum or PlasmaOrdered By: Jes Cruz on 06-19-2022 Potassium [Moles/Vol] 4.3 mmol/L 3.5-5.1 [facility] Protein [Mass/volume] in Ser um or PlasmaOrdered By: Jes Cruz on 06-19-2022 Protein [Mass/Vol] 6.3 g/dL 6.4-8.9 [facility] RBC Auto (Bld) [#/Vol]Ordere d By: Jes Cruz on 06-19-2022 RBC (Bld) [#/Vol] 3.95 10*6/uL 3.60-5.00 [facility] Serum or plasma albumin/glob ulin mass ratioOrdered By: Jes Cruz on 06-19-2022 Albumin/Globulin [Mass ratio] 1.7 {ratio} [facility] Serum or plasma anion gap de terminationOrdered By: Jes Cruz on 06-19-2022 Anion gap [Moles/Vol] 10.9 mmol/L 6.0-15.0 [facility] Serum or plasma creatine kin ase MB (CKMB)/total creatine kinase (CK) ratio by calculaOrdered By: Jes Cruz on 06-19-2022 CK.MB Calc [Catalytic fraction] 6.5 % 0.00-2.50 [facility] Serum or plasma high density lipoprotein (HDL) cholesterol measurementOrdered By: Jes Cruz on 06-19-2022 Cholesterol in HDL [Mass/Vol] 68 mg/dL 35-85 [facility] Comment on above: HDL CHOL ATP-III CLA SSIFICATION Cardiovascular RiskHDL > or equal to 60 mg/dL LOWHDL < 40 mg/dL HIGH Serum or plasma total choles terol/high density lipoprotein (HDL) cholesterol mass ratOrdered By: Jes Cruz on 06-19-2022 Cholesterol.total/Chol esterol in HDL [Mass ratio] 2.8 {ratio} <5.0 [facility] Sodium [Moles/volume] in Ser um or PlasmaOrdered By: Jes Cruz on 06-19-2022 Sodium [Moles/Vol] 139 mmol/L 136-145 [facility] Thyrotropin [Units/volume] i n Serum or PlasmaOrdered By: Jes Cruz on 06-19-2022 TSH Qn 2.33 m[IU]/L 0.45-5.33 [facility] Thyroxine (T4) free [Mass/vo lume] in Serum or PlasmaOrdered By: Jes Cruz on 06-19-2022 Free T4 [Mass/Vol] 0.63 ng/dL 0.61-1.12 [facility] Triglyceride [Mass/volume] i n Serum or PlasmaOrdered By: Jes Cruz on 06-19-2022 Triglyceride [Mass/Vol] 241 mg/dL 0-149 [facility] Comment on above: TRIG ATP III CLASSIF ICATIONTRIG less than 150 mg/dL NormalTRIG 150-199 mg/dL Borderline highTRIG 200-500 mg/dL High TRIG greater than 500 mg/dL Very highStandard traceable to the Center for Disease Conrtrol and Prevention (CDC) test method. Urea nitrogen [Mass/volume] in Serum or PlasmaOrdered By: Jes Cruz on 06-19-2022 Urea nitrogen [Mass/Vol] 9 mg/dL 7-25 [facility] WBC Auto (Bld) [#/Vol]Ordere d By: Jes Cruz on 06-19-2022 WBC (Bld) [#/Vol] 8.2 10*3/uL 3.8-11.6 [facility] CARDIAC BJORN ADMITon 023 CK [Catalytic activity/Vol] 54 U/L Normal 26-192 [facility] Comment on above: Performed By: #### C MADM, CMP #### [facility] [address] [place] [address] Dr. Howard Guthrie CK.MB [Mass/Vol] 1.70 ng/mL Normal <=3.60 [facility] Comment on above: Performed By: #### C MICHAELM, CMP #### [facility] [address] [place] [address] Dr. Howard Guthrie HSTROP <4.0 Normal 4.0-51.3 [facility] Comment on above: Result Comment: CUT- OFF POINTS HAVE BEEN ESTABLISHED BASED ON THE FOURTH UNIVERSAL DEFINITIONS OF MYOCARDIAL INFARCTION. THE UPPER REFERENCE LIMIT (URL) OF TROPONIN, DEFINED THE 99TH PERCENTILE OF cTnI DISTRIBUTION IN A REFERENCE POPULATION, HAS BEEN CONFIRMED THE DECISION THRESHOLD FOR ND DIAGNOSIS. Performed By: #### C MICHAELM, CMP #### [facility] [address] [place] [address] Dr. Howard Guthrie NYA 23 ng/mL Normal 9-82 [facility] Comment on above: Performed By: #### C MICHAELM, CMP #### [facility] [address] [place] [address] Dr. Howard Guthrie CBC AUTO DIFFon 06-17-2022 BASO # 0.1 103/ul Normal 0.0-0.1 [facility] Comment on above: Performed By: #### C BC #### [facility] [address] [place] [address] Dr. Howard Guthrie Basophils/100 WBC (Bld) 1.0 % Normal 0.2-2.0 [facility] Comment on above: Performed By: #### C BC #### [facility] [address] [place] [address] Dr. Howard Guthrie EO # 0.2 103/ul Normal 0.0-0.7 [facility] Comment on above: Performed By: #### C BC #### [facility] [address] [place] [address] Dr. Howard Guthrie Eosinophils/100 WBC (Bld) 2.9 % Normal 0.9-7.0 [facility] Comment on above: Performed By: #### C BC #### [facility] [address] [place] [address] Dr. Howard Guthrie Erythrocyte distribution width (RBC) [Ratio] 12.7 % Normal 11.0-15.0 [facility] Comment on above: Performed By: #### C BC #### [facility] [address] [place] [address] Dr. Howard Guthrie Hematocrit (Bld) [Volume fraction] 42.5 % Normal 36.0-48.0 [facility] Comment on above: Performed By: #### C BC #### [facility] [address] [place] [address] Dr. Howard Guthrie Hemoglobin (Bld) [Mass/Vol] 14.7 g/dL Normal 12.0-16.0 [facility] Comment on above: Performed By: #### C BC #### [facility] [address] [place] [address] Dr. Howard Guthrie IG # 0.02 10e3/ul Normal 0.00-0.03 [facility] Comment on above: Performed By: #### C BC #### [facility] [address] [place] [address] Dr. Howard Guthrie IG % 0.3 % Normal 0.0-0.5 [facility] Comment on above: Performed By: #### C BC #### [facility] [address] [place] [address] Dr. Howard Guthrie LYMPH # 2.1 103/ul Normal 1.2-3.8 [facility] Comment on above: Performed By: #### C BC #### [facility] [address] [place] [address] Dr. Howard Guthrie Lymphocytes/100 WBC (Bld) 28.4 % Normal 20.5-60.0 [facility] Comment on above: Performed By: #### C BC #### [facility] [address] [place] [address] Dr. Howard Guthrie MANUAL DIFF REQ NO Normal [facility] Comment on above: Performed By: #### C BC #### [facility] [address] [place] [address] Dr. Howard Guthrie MCH (RBC) [Entitic mass] 33.1 pg Normal 26.7-34.0 [facility] Comment on above: Performed By: #### C BC #### [facility] [address] [place] [address] Dr. Howard Guthrie MCHC (RBC) [Mass/Vol] 34.6 g/dL Normal 29.9-35.2 [facility] Comment on above: Performed By: #### C BC #### [facility] [address] [place] [address] Dr. Howard Guthrie MCV (RBC) [Entitic vol] 95.7 fL Normal 81.0-99.0 [facility] Comment on above: Performed By: #### C BC #### [facility] [address] [place] [address] Dr. Howard Guthrie MONO # 1.0 103/ul Critically high 0.3-0.8 [facility] Comment on above: Performed By: #### C BC #### [facility] [address] [place] [address] Dr. Howard Guthrie Monocytes/100 WBC (Bld) 13.1 % Critically high 1.7-12.0 [facility] Comment on above: Performed By: #### C BC #### [facility] [address] [place] [address] Dr. Howard Guthrie NEUT # 4.0 103/ul Normal 1.4-6.5 [facility] Comment on above: Performed By: #### C BC #### [facility] [address] [place] [address] Dr. Howard Guthrie Neutrophils/100 WBC (Bld) 54.3 % Normal 43.0-75.0 [facility] Comment on above: Performed By: #### C BC #### [facility] [address] [place] [address] Dr. Howard Guthrie Platelet mean volume (Bld) [Entitic vol] 10.0 fL Normal 9.5-13.5 [facility] Comment on above: Performed By: #### C BC #### [facility] [address] [place] [address] Dr. Howard Guthrie PLT 343 103/ul Normal 150-450 [facility] Comment on above: Performed By: #### C BC #### [facility] [address] [place] [address] Dr. Howard Guthrie RBC 4.44 106/ul Normal 4.20-5.40 [facility] Comment on above: Performed By: #### C BC #### [facility] [address] [place] [address] Dr. Howard Guthrie WBC 7.4 103/ul Normal 4.0-11.0 [facility] Comment on above: Performed By: #### C BC #### [facility] [address] [place] [address] Dr. Howard Guthrie D-DIMERon 06-17-2022 D-DIMER 0.43 mg/L FEU Normal <=0.59 [facility] Comment on above: Performed By: #### D DIM #### [facility] [address] [place] [address] Dr. Howard Guthrie D-DIMER COMMENTS SEE BELOW Normal [facility] Comment on above: Result Comment: Incr [...] hospitalization. Performed By: #### D DIM #### [facility] [address] [address] [address] Howard Guthrie ER URINE PROFILEon 3 Bilirubin Ql (U) Negative Normal NEGATIVE [facility] Comment on above: Performed By: #### U MICRO, ERUR #### [facility] [address] [place] [address] Dr. Howard Guthrie Clarity (U) CLEAR Normal CLEAR [facility] Comment on above: Performed By: #### U MICRO, ERUR #### [facility] [address] [address] [address] Howard Guthrie Color (U) LT. YELLOW Normal YELLOW [facility] Comment on above: Performed By: #### U MICRO, ERUR #### [facility] [address] [place] [address] Dr. Howard MILLS A micrscopic examination will be performed if indicated. Normal [facility] Comment on above: Performed By: #### U MICRO, ERUR #### [facility] [address] [place] [address] Dr. Howard Guthrie Glucose Ql (U) Negative Normal NEGATIVE [facility] Comment on above: Performed By: #### U MICRO, ERUR #### [facility] [address] [place] [address] Dr. Howard Guthrie Hemoglobin Ql (U) SMALL Abnormal NEGATIVE [facility] Comment on above: Performed By: #### U MICRO, ERUR #### [facility] [address] [address] [address] Howard Guthrie Ketones Ql (U) Negative Normal NEGATIVE [facility] Comment on above: Performed By: #### U MICRO, ERUR #### [facility] [address] [address] [address] Howard Guthrie LEUKOCYTES Negative Normal NEGATIVE [facility] Comment on above: Performed By: #### U MICRO, ERUR #### [facility] [address] [place] [address] Dr. Howard Guthrie Nitrite Ql (U) Negative Normal NEGATIVE [facility] Comment on above: Performed By: #### U MICRO, ERUR #### [facility] [address] [place] [address] Dr. Howard Guthrie pH (U) 7.0 [pH] Normal 5-9 [facility] Comment on above: Performed By: #### U MICRO, ERUR #### [facility] [address] [place] [address] Dr. Howard Guthrie SPEC GRAVITY 1.015 Normal 1.005-<=1.0 25 [facility] Comment on above: Performed By: #### U MICRO, ERUR #### [facility] [address] [place] [address] Dr. Howard Guthrie UA PROTEIN Negative Normal NEGATIVE/ TRACE [facility] Comment on above: Performed By: #### U MICRO, ERUR #### [facility] [address] [place] [address] Dr. Howard Guthrie UR MICRO IND INDICATED Normal [facility] Comment on above: Performed By: #### U MICRO, ERUR #### [facility] [address] [place] [address] Dr. Howard Guthrie Urobilinogen Qn (U) 0.2 {Abdiaziz'U}/dL Normal 0.2 - 1. 0 [facility] Comment on above: Performed By: #### U MICRO, ERUR #### [facility] [address] [place] [address] Dr. Howard Guthrie PROF 14(COMP METB)on 023 Albumin [Mass/Vol] 3.8 g/dL Normal 3.4-5.0 [facility] Comment on above: Performed By: #### C MADM, CMP #### [facility] [address] [place] [address] Dr. Howard Guthrie Albumin/Globulin [Mass ratio] 1.1 {ratio} Normal [facility] Comment on above: Performed By: #### C MADM, CMP #### [facility] [address] [place] [address] Dr. Howard Guthrie ALP [Catalytic activity/Vol] 96 U/L Normal 46-116 [facility] Comment on above: Performed By: #### C MADM, CMP #### [facility] [address] [address] [address] Howard Guthrie ALT [Catalytic activity/Vol] 19 U/L Normal 14-59 [facility] Comment on above: Performed By: #### C MADM, CMP #### [facility] [address] [address] [address] Howard Guthrie Anion gap [Moles/Vol] 11.2 mmol/L Normal [facility] Comment on above: Performed By: #### C MADM, CMP #### [facility] [address] [address] [address] Howard Guthrie AST [Catalytic activity/Vol] 19 U/L Normal 15-37 [facility] Comment on above: Performed By: #### C MADM, CMP #### [facility] [address] [address] [address] Howard Guthrie Bilirubin [Mass/Vol] 0.5 mg/dL Normal 0.2-1.0 [facility] Comment on above: Performed By: #### C MADM, CMP #### [facility] [address] [address] [address] Howard Guthrie Calcium [Mass/Vol] 8.8 mg/dL Normal 8.5-10.1 [facility] Comment on above: Performed By: #### C MICHAELM, CMP #### [facility] [address] [address] [address] Howard Guthrie Chloride [Moles/Vol] 104 mmol/L Normal 98-107 [facility] Comment on above: Performed By: #### C MADM, CMP #### [facility] [address] [address] [address] Howard Guthrie CO2 [Moles/Vol] 24.1 mmol/L Normal 21.0-32.0 [facility] Comment on above: Performed By: #### C MADM, CMP #### [facility] [address] [address] [address] Hwoard Guthrie Creatinine [Mass/Vol] 0.73 mg/dL Normal 0.55-1.02 [facility] Comment on above: Performed By: #### C MADM, CMP #### [facility] [address] [address] [address] Howard Guthrie EGFR-AF FAROESE >60 Normal >=60 [facility] Comment on above: Performed By: #### C MADM, CMP #### [facility] [address] [address] [address] Howard Guthrie EGFR-NON AF FAROESE >60 Normal >=60 [facility] Comment on above: Performed By: #### C MADM, CMP #### [facility] [address] [address] [address] Howard Guthrie Globulin (S) [Mass/Vol] 3.6 g/dL Normal [facility] Comment on above: Performed By: #### C MADM, CMP #### [facility] [address] [address] [address] Howard Guthrie Glucose [Mass/Vol] 112 mg/dL Critically high 74-106 [facility] Comment on above: Performed By: #### C MADM, CMP #### [facility] [address] [address] [address] Howard Guthrie Potassium [Moles/Vol] 3.3 mmol/L Critically low 3.5-5.1 [facility] Comment on above: Performed By: #### C MADM, CMP #### [facility] [address] [address] [address] Howard Guthrie Protein [Mass/Vol] 7.4 g/dL Normal 6.4-8.2 [facility] Comment on above: Performed By: #### C MADM, CMP #### [facility] [address] [address] [address] Howard Guthrie Sodium [Moles/Vol] 136 mmol/L Normal 136-145 [facility] Comment on above: Performed By: #### C MADM, CMP #### [facility] [address] [address] [address] Howard Guthrie Urea nitrogen [Mass/Vol] 6.0 mg/dL Critically low 7.0-18.0 [facility] Comment on above: Performed By: #### C MADM, CMP #### [facility] [address] [address] [address] Howard Guthrie Urea nitrogen/Creatinine [Mass ratio] 8.2 mg/mg Normal [facility] Comment on above: Performed By: #### C MADM, CMP #### [facility] [address] [place] [address] Dr. Howard Guthrie TROPONIN, HIGH SENSITIVITYon 06-17-2022 HSTROP 4.6 pg/mL Normal 4.0-51.3 [facility] Comment on above: Result Comment: CUT- OFF POINTS HAVE BEEN ESTABLISHED BASED ON THE FOURTH UNIVERSAL DEFINITIONS OF MYOCARDIAL INFARCTION. THE UPPER REFERENCE LIMIT (URL) OF TROPONIN, DEFINED THE 99TH PERCENTILE OF cTnI DISTRIBUTION IN A REFERENCE POPULATION, HAS BEEN CONFIRMED THE DECISION THRESHOLD FOR ND DIAGNOSIS. Performed By: #### H STROPN #### [facility] [address] [place] [address] Dr. Howard Guthrie URINE MICROSCOPIC ONLYon BACTERIA TRACE Abnormal NONE SEEN [facility] Comment on above: Performed By: #### U MICRO, ERUR #### [facility] [address] [place] [address] Dr. Howard Guthrie Bacteria identified Cx Nom (U) NOT INDICATED Normal [facility] Comment on above: Performed By: #### U MICRO, ERUR #### [facility] [address] [place] [address] Dr. Howard Guthrie CAST NONE SEEN Normal NONE SEEN [facility] Comment on above: Performed By: #### U MICRO, ERUR #### [facility] [address] [place] [address] Dr. Hoawrd Guthrie Crystals LM Nom (Urine sed) NONE SEEN Normal NONE SEEN [facility] Comment on above: Performed By: #### U MICRO, ERUR #### [facility] [address] [place] [address] Dr. Howard Guthrie Epithelial cells LM Ql (Urine sed) FEW Abnormal NONE SEEN /RARE [facility] Comment on above: Performed By: #### U MICRO, ERUR #### [facility] [address] [address] [address] Howard Guthrie MUCOUS TRACE Abnormal NONE SEEN [facility] Comment on above: Performed By: #### U MICRO, ERUR #### [facility] [address] [address] [address] Howard Guthrie RBC 2-5 Abnormal 0-2 [facility] Comment on above: Performed By: #### U MICRO, ERUR #### [facility] [address] [address] [address] Howard Guthrie WBC NONE SEEN Normal NONE SEEN [facility] Comment on above: Performed By: #### U MICRO, ERUR #### [facility] [address] [address] [address] Howard Guthrie XR CHEST 1 Von [...] NICK MARIE Date: 2022-06-17 12:26 Normal [facility] Tobacco Screening.on 022 Adult depression screening assessment No [facility] DO Work Phone: Tobacco use status CPHS a) Yes [facility] DO Work Phone: Tobacco Screening. Yes [facility] 250 DO Work Phone: Vital Signs Date Time Vital Sign Value Performing Clinician Jessei henry 09-13-2023 13:06-0400 Blood Pressure Location Roosevelt Sotelo [facility] 09-13-2023 13:06-0400 Diastolic blood pressure 85 mm[Hg] Roosevelt Soteol [facility] 09-13-2023 13:06-0400 Heart rate 90 /min Roosevelt Sotelo [facility] 09-13-2023 13:06-0400 SaO2% (BldA) [Mass fraction] 99 % Roosevelt Sotelo [facility] 09-13-2023 13:06-0400 Systolic blood pressure 125 mm[Hg] Roosevelt Sotelo [facility] 08-10-2023 09:19-0400 Blood Pressure Location JESSHAMA ROLLE [facility] 08-10-2023 09:19-0400 Body temperature 98.24 [degF] JES ELSA [facility] 08-10-2023 09:19-0400 Diastolic blood pressure 78 mm[Hg] JES ELSA [facility] 08-10-2023 09:19-0400 Heart rate 80 /min JES ELSA [facility] 08-10-2023 09:19-0400 Respiratory rate 19 /min JES ELSA [facility] 08-10-2023 09:19-0400 Systolic blood pressure 136 mm[Hg] JES ELSA [facility] 03-22-2023 13:16-0500 Blood Pressure Location Ramone Garcia [facility] 03-22-2023 13:16-0500 Diastolic blood pressure 85 mm[Hg] Ramone Garcia [facility] 03-22-2023 13:16-0500 Heart rate 90 /min Ramone Garcia [facility] 03-22-2023 13:16-0500 SaO2% (BldA) [Mass fraction] 99 % Ramone Garcia [facility] 03-22-2023 13:16-0500 Systolic blood pressure 126 mm[Hg] Ramone Garcia [facility] 12-15-2022 13:20-0400 Body height 165.1 cm Loretta Javier Other [employer] Other 12-15-2022 13:20-0400 Body mass index (BMI) [Ratio] 23.13 kg/m2 Loretta Javier Other [employer] Other 12-15-2022 13:20-0400 Body temperature 98.1 [degF] Loretta Javier Other [employer] Other 12-15-2022 13:20-0400 Body weight 63.05 kg Loretta Chenler Other [employer] Other 12-15-2022 13:20-0400 Diastolic blood pressure 76 mm[Hg] Loretta Jvaier Other [employer] Other 12-15-2022 13:20-0400 Respiratory rate 18 /min Loretta Javier Other [employer] Other 12-15-2022 13:20-0400 SaO2% (BldA) [Mass fraction] 98 % Loretta Javier Other [employer] Other 12-15-2022 13:20-0400 Systolic blood pressure 128 mm[Hg] Loretta Javier Other [employer] Other 10-14-2022 11:10-0400 Body height 165.1 cm Tanya Glover Other [employer] Other 10-14-2022 11:10-0400 Body mass index (BMI) [Ratio] 23.39 kg/m2 Tanya Glover Other [employer] Other 10-14-2022 11:10-0400 Body temperature 97.8 [degF] Tanya Glover Other [employer] Other 10-14-2022 11:10-0400 Body weight 63.78 kg Tanya Glover Other [employer] Other 10-14-2022 11:10-0400 Diastolic blood pressure 85 mm[Hg] Tanya Glover Other [employer] Other 10-14-2022 11:10-0400 Respiratory rate 18 /min Tanya Glover Other [employer] Other 10-14-2022 11:10-0400 SaO2% (BldA) [Mass fraction] 99 % Tanya Glover Other [employer] Other 10-14-2022 11:10-0400 Systolic blood pressure 143 mm[Hg] Tanya Pangmond Other [employer] Other 06-24-2022 09:32-0400 Body height 165.1 cm No PCP None -[facility] 250 DO Work Phone: 06-24-2022 09:32-0400 Body mass index (BMI) [Ratio] 24.63 kg/m2 No PCP None [facility] 250 DO Work Phone: 06-24-2022 09:32-0400 Body surface area Derived from formula 1.74 m2 No PCP None [facility] 250 DO Work Phone: 06-24-2022 09:32-0400 Body weight 67.13 kg No PCP None [facility] 250 DO Work Phone: 06-24-2022 09:32-0400 Diastolic blood pressure 82 mm[Hg] No PCP None [facility] 250 DO Work Phone: 06-24-2022 09:32-0400 Heart rate 88 /min No PCP None [facility] 250 DO Work Phone: 06-24-2022 09:32-0400 Systolic blood pressure 124 mm[Hg] No PCP None [facility] 250 DO Work Phone: 06-02-2021 15:09-0500 Diastolic blood pressure 98 mm[Hg] No PCP None [facility] 250 DO Work Phone: 06-02-2021 15:09-0500 Systolic blood pressure 142 mm[Hg] No PCP None [facility] 250 DO Work Phone: 06-02-2021 15:03-0500 Body height 165.1 cm No PCP None [facility] 250 DO Work Phone: 06-02-2021 15:03-0500 Body mass index (BMI) [Ratio] 28.29 kg/m2 No PCP None [facility] 250 DO Work Phone: 06-02-2021 15:03-0500 Body surface area Derived from formula 1.85 m2 No PCP None [facility] 250 DO Work Phone: 06-02-2021 15:03-0500 Body weight 77.11 kg No PCP None [facility] 250 DO Work Phone: 06-02-2021 15:03-0500 Diastolic blood pressure 90 mm[Hg] No PCP None [facility] 250 DO Work Phone: 06-02-2021 15:03-0500 Heart rate 92 /min No PCP None [facility] 250 DO Work Phone: 06-02-2021 15:03-0500 Systolic blood pressure 142 mm[Hg] No PCP None [facility] 250 DO Work Phone: Encounters Encounter Date Encounter Type Care Provider Facility Start: 03-06-2024 ambulatory Alexandro Pulido ty:[facility] Start: 02-18-2024 ambulatory Alexandro Pulido ty:[facility] [place] Start: 02-17-2024 ambulatory Alexandro Pulido ty:[id number] Start: 01-07-2024 End: 01-07-2024 ambulatory Roosevelt Sotelo Facility:[facility] Start: 01-07-2024 End: 01-07-2024 Patient encounter procedure Roosevelt Sotelo [facility] Start: 12-17-2023 End: 12-17-2023 ambulatory [facility] Start: 12-14-2023 End: 12-14-2023 ambulatory [facility] Start: 12-02-2023 End: 12-02-2023 Patient encounter procedure [employer]-Terrie Cruz Work Phone: [facility] [address] Work Phone: Start: 12-02-2023 End: 12-02-2023 ambulatory [employer]-Terrie Cruz Work Phone: [facility] Work Phone: Start: 11-26-2023 ambulatory Alexandro Mary PARTIDA Facili ty:[facility] [place] Start: 11-25-2023 End: 11-25-2023 ambulatory Alexandrogia PARTIDA [id number]::[id number] Start: 11-01-2023 End: 11-01-2023 Patient encounter procedure [employer]-C Jes Cruz Work Phone: [facility] [address] [place] Work Phone: Start: 11-01-2023 End: 11-01-2023 ambulatory [employer]-C Jes Cruz Work Phone: [facility] Work Phone: Start: 10-14-2023 End: 10-14-2023 ambulatory JES ROLLE Facility:[facility] Start: 10-14-2023 End: 10-14-2023 Patient encounter procedure JES ROLLE [facility] Start: 10-12-2023 Non-patient / Non-visit MELTING FURNACE SKIMMER-C Jes Cruz Work Phone: [facility] Work Phone: Start: 10-05-2023 End: 10-05-2023 ambulatory Alexandro PARTIDA Facility:[facility] Start: 10-05-2023 End: 10-05-2023 Patient encounter procedure Alexandro PARTIDA [facility] Start: 09-18-2023 End: 09-19-2023 Emergency department patient visit [facility] Start: 09-13-2023 End: 09-13-2023 ambulatory XXXX NONE Facility:[facility] Start: 09-13-2023 End: 09-13-2023 Patient encounter procedure Roosevelt Sotelo [facility] Start: 09-11-2023 Non-patient / Non-visit MELTING FURNACE SKIMMER-C Jes Cruz Work Phone: [facility] Work Phone: Start: 08-10-2023 End: 08-10-2023 ambulatory JES HALERY Facility:[facility] Start: 08-10-2023 End: 08-10-2023 Lab Drop off JES ROLLE [facility] Start: 08-10-2023 End: 08-10-2023 ambulatory JES ROLLE Facility:[facility] Start: 08-10-2023 End: 08-10-2023 Patient encounter procedure JESSHANELL ROLLE [facility] Start: 06-09-2023 End: 06-09-2023 ambulatory Jes Cruz Facility:[facility] Start: 04-27-2023 ambulatory Roosevelt Sotelo Facility:[facility] Start: 04-16-2023 End: 04-16-2023 ambulatory Ramone Garcia Facility:[facility] Start: 04-16-2023 End: 04-16-2023 Patient encounter procedure Ramone Garcia [facility] Start: 04-01-2023 End: 04-01-2023 ambulatory PHYSICIAN NO FAMILY Facility:[facility] Start: 03-22-2023 End: 03-22-2023 ambulatory Ramone Garcia Facility:[facility] Start: 03-22-2023 End: 03-22-2023 Patient encounter procedure Ramone Garcia [facility] Start: 12-15-2022 End: 12-15-2022 ambulatory Loretta Javier Other [employer] Other Start: 12-15-2022 Office outpatient visit 25 minutes Loretta Javier [facility] Start: 10-14-2022 End: 10-14-2022 ambulatory Tanya Pangmond Other [employer] Other Start: 10-14-2022 Office outpatient visit 15 minutes Tanya Belen [facility] Start: 08-14-2022 ambulatory MsShyanne Falcon angie Cruz Facility: Start: 08-14-2022 FUV, Provider: Nadia Franks, Status: Pen, Time: 1:00 PM No PCP None -[facility] 250 DO Work Phone: Start: 08-06-2022 Rx Renewal No PCP None -[facility] 250 DO Work Phone: Start: 06-24-2022 Office outpatient visit 15 minutes No PCP None [facility] 250 DO Work Phone: Start: 06-24-2022 ambulatory Ms. Nadia Lainez Andrew h Facility: Start: 06-19-2022 End: 06-19-2022 ambulatory PHYSICIAN NO [facility] Work Phone: Start: 06-19-2022 End: 06-19-2022 Departed Referred PHYSICIAN NO [facility] Start: 06-17-2022 End: 06-17-2022 ambulatory RIVER MARTE . Facility: Start: 11-10-2021 ambulatory Ms. Nadia mendoza Facility: Start: 10-27-2021 Rx Renewal No PCP None -[facility] 250 DO Work Phone: Start: 06-02-2021 Office outpatient visit 25 minutes No PCP None -[facility] 250 DO Work Phone: Procedures Date Procedure Procedure Detail Performing Clinician Start: 12-02-2023 MR lumbar spine wo con [employer]ELTING [employer]NA[employer] SKIMMER-C Jes paiz Work Phone: Start: 11-01-2023 Urine culture MELTING FURNACE SKIMMER-C Jes Berry deepak Work Phone: Start: 10-05-2023 Cystourethroscopy with dilation of urethral stricture JESSHAMA ROLLE Cardiac catheter (ph ysical object) Ramone Garcia Cardiac catheterization No P CP None Colonoscopy Ramone Chase rson Hysterectomy Ramone Chase rson Operative procedure on foot No PCP None Procedure on back No PCP Non e Procedure on back Ramone salomon Plan of Treatment Date Care Activity Detail Author Start: 11-01-2023 Bacteria identified in Urine by Culture [facility] Start: 08-14-2022 FUV, Provider: Nadia Franks, Status: Pen, Time: 1:00 PM FUV, Provider: Nadia Franks, Status: Pen, Time: 1:00 PM [facility] 250 DO Work Phone: Start: 11-10-2021 FUV, Provider: Nadia Franks, Status: Pen, Time: 3:00 PM FUV, Provider: Nadia Franks, Status: Pen, Time: 3:00 PM [facility] 250 DO Work Phone: Start: 06-30-2021 FUV, Provider: Nadia Franks, Status: Pen, Time: 8:00 AM FUV, Provider: Nadia Franks, Status: Pen, Time: 8:00 AM [facility] 250 DO Work Phone: Estradiol (E2) [Mass/volume] in Serum or Plasma [facility] Lutropin [Units/volu me] in Serum or Plasma [facility] Immunizations Immunization Date Immunization Notes Care Provider Jennifer lacy 03-25-2021 influenza, injectabl e, quadrivalent, preservative free No PCP None [facility] 01-05-2020 influenza, injectabl e, quadrivalent, preservative free No PCP None [facility] 250 DO Work Phone: 01-06-2019 influenza, injectabl e, quadrivalent, preservative free [facility] Payers Date Payer Category Payer Self-pay [id number] 1970 Unknown [id number] 2.16.840.1.440137.3.579.2. 593 1971 Unknown [id number] 2.16840.1.678013.3.579.2. 356 1971 Unknown [id number] 2.16.840.1.101757.3.579.2. 356 1971 Unknown [id number] 2.16.840.1.478622.3.579.2. 356 1971 Unknown [id number] 2.16840.1.479131.3.579.2. 1286 1971 Unknown [id number] 2.16.840.1.660769.3.579.2. 1286 1971 Unknown [id number] 2.16.840.1.639944.3.579.2. 727 1971 Unknown [id number] 2.16.840.1.346126.3.579.2. 727 1971 Unknown [id number] 2.16.840.1.124347.3.579.2. 727 1971 Unknown [id number] 2.16.840.1.316076.3.579.2. 727 1971 Unknown [id number] 2.16.840.1.537098.3.579.2. 727 1971 Unknown [id number] 2.16.840.1.912493.3.579.2. 727 1971 Unknown [id number] 2.16.840.1.975192.3.579.2. 727 1971 Unknown [id number] 05.21.830.1.848583.3.579.2. 1971 Unknown [id number] 05.21.830.1.790759.3.579.2. 1971 Unknown [id number] 05.21.830.1.133282.3.579.2. 1971 Unknown [id number] 05.21.830.1.048059.3.579.2 1971 Unknown [id number] 05.21.830.1.641013.3.579.2 1971 Unknown [id number] 05.21.830.1.941670.3.579.2 1971 Unknown [id number] .1.994027.3.579.2. 727 1959 Medicaid [id number] Private Health Insurance [id number] Unknown [id number] Unknown [facility] PLAN Unknown [id number] Unknown [id number] .1.648990.3.579.2. 531 Unknown [id number] 05.21.830.1.363789.3.579.2. 531 Unknown [id number] 05.21.830.1.724312.3.579.2. 531 Unknown [id number] 05.21.830.1.479815.3.579.2. 531 Social History Date Type Detail [facility] Start: 1970 Sex Assigned At Female F [facility] Illicit drug use Illicit drug use [facility] [place] [address] DO Work Phone: Comment on above: 1 pack per daily.; Start: 05-26-2021 Tobacco smoking stat NHIS Ex-smoker (finding) [facility] Sex Assigned At [facility] Start: 03-22-2023 End: 08-10-2023 Tobacco smoking status Light tobacco smoker (finding) [facility] Tobacco smoking status Never [facility] Medical Equipment Procedure Code Equipment Code Equipment Origin al Text Equipment Identifier Dates Thoracotomy Staple line-reinforcement strip ()[id number] FDA Start: 03-26-2021 Thoracotomy Surgical adhesive/sealant, human-derived ()[id number] [id number] FDA Start: 03-26-2021 Goals Date Patient Goal Desired Activity /State Functional Status Date Assessment Result Facility 10-14-2023 Functional Status N/A [facility] 09-13-2023 Functional Status No [facility] 08-10-2023 Functional Status N/A [facility] 03-22-2023 Functional Status No [facility] Clinical Notes 10-14-2022 to 12-14-2023 Note [...] Diagnosis Date Alcohol abuse Anxiety Bipolar disorder ([facility]) Chronic sinusitis Cocaine use 05/2023 COPD (chronic obstructive pulmonary disease) ([facility]) Coronary vasospasm ([facility]) Diverticulosis per CT 08/2023 Dyslipidemia Endometriosis Hypertension [...] BEDTIME, Disp: , (more content not included)... [facility] 10-14-2023 Hospital Discharge instructions Patient Education 10/14/2023 [...] including vitamins, herbs, eye drops, creams, and oahv-men-oxcqkli medicines. Any problems you or family members [...] provider tells you to take them. Taking xkza-nuk-mpnqziu medicines, vitamins, herbs, and supplements. Surgery safety [...] provider. Document Revised: 10/25/2020 Document Reviewed: 10/25/2020 [employer] Patient Education 2022 [employer]. Follow Up Care 10/05/2023 10:22:18 With:[facility] Address: [address] [place] [address] Business (1) When: Unknown Comments:for procedure as scheduled [facility] 10-14-2023 Note Patient Education Obstetrics and [...] including vitamins, herbs, eye drops, creams, and skcn-dfk-ylrfmyj medicines. ? Any problems you or family [...] tells you to take them. ? Taking viku-kzp-oggndie medicines, vitamins, herbs, and supplements. Surgery safety [...] intended to replace (more content not included)... [facility] 08-10-2023 Evaluation + Plan note Diagnostic Tests PendingUrine Cytology ([facility]) 08/10/23 [facility] 08-10-2023 Hospital Discharge instructions Patient Education [...] require a prescription. You can also purchase krnb-rkb-smhrhev medicines. Medicines may have nicotine in them [...] and encouragement. Call telephone quitlines, such as 9-244-BSPL-NOW, reach out to support groups, or work [...] provider. Document Revised: 03/13/2022 Document Reviewed: 03/13/2022 [employer] Patient Education 2022 [employer]. 08/10/2023 10:11:31 Cystoscopy Cystoscopy Cystoscopy is a [...] including vitamins, herbs, eye drops, creams, and mgtq-ukr-tktczwa medicines. Any problems you or family members [...] provider tells you to take them. Taking eoia-dhe-kemlwdq medicines, vitamins, herbs, and supplements. Tests You [...] Follow these instructions at home: Medicines Take pfws-qak-dvduscs and prescription medicines only as told by [...] provider. Document Revised: 12/03/2021 Document Reviewed: 11/01/2020 [employer] Patient Education 2022 [employer]. Follow Up Care 04/30/2023 12:48:57 With:ELSA MOSES, JES Akhtar, URL Address: [address] [place] [address] [phone] When: Unknown [facility] 08-10-2023 Note Chief Complaint Jes Gomes, MAKENZEI referral HPI Staff Evaluation requested by Jes [...] stone or hydro. Unremarkable bladder. KUB 04/01/23 [facility] - No obvious urinary tract calculi. AMOL 08/02/23 [facility] - No renal stones or hydro. Unremarkable bladder. KUB 08/02/23 [facility] - No urinary tract calculi. Educated [...] upon conclusion of the workup. -CTU at [facility] now -Urine sample to be sent [...] Cyst of kidney, acquired) Bladder/renal US 04/01/23 [facility] - Small L renal cyst. 06/09/23 - BUN 14. Cr 0.63. GFR >60. -Simple cysts do not require follow-up Ordered: CT Urogram 5. Smoker (F17.200: Nicotine dependence, unspec (more content not included)... [facility] Comment on above: Result Comment: Elec tronically Signed By: JES ROLLE PA-C\.br\Date and Time Signed: 08/10/23 10:56 EDT\.br\Electronically Co-Signed By: Mirela Lozoya\.br\Date and Time Co-Signed: 08/10/23 10:16 EDT 04-17-2023 Note Echocardiology Procedure Exam Date/Time Accession # Ordering Echo Transthoracic 04/16/2023 14:37 EST [id number] Jose PATRICK, Ramone Butt CPT code 90421 [id number] Reason for Exam (Echo Transthoracic Complete) I25.10;CAD Coronary artery disease Report Version: 1 Study ID: [id number] [facility] [address] [place] [address] Adult Echocardiogram Report Name: ISELA CRAIG Study Date: 04/16/2023, 1: 10 PM Patient Location: [facility] : 1970 (MM/DD/YYYY) Gender: Female [...] Signed by: Ramone Garcia MD Transcribed by: [facility] Technologist: GARRY Bravo [facility] [...] understanding and is agreeable to treatment plan [employer] Other 07-12-2023 Evaluation note* Encounter Date Diagnosis [...] - Z20.822) Oct, Bronchitis (ICD-10 - J40) [employer] Other Evaluation + Plan note Future Appointments Appointment Date:05/13/2023 03:45:00 PM Scheduled Provider:Ramone Garcia MD [facility] Type:Cardiology Follow Up (FT) Future Scheduled Tests Radiology* NM Myocardial Spect Rest/Stress 1 Day 03/22/23 * Echo Transthoracic Complete 03/22/23 [facility] + Plan note Future Appointments Appointment Date:05/13/2023 03:45:00 PM Scheduled Provider:Ramone Garcia MD [facility] Type:Cardiology Follow Up (FT) [facility] + Plan note Future Appointments Appointment Date:09/27/2023 09:30:00 AM Scheduled Provider: Location:[facility] Appointment Type:Urology CALL PAT FT Appointment Date:10/05/2023 09:00:00 AM Scheduled Provider: Location:[facility] Appointment Type:Urology FT Appointment Date:12/13/2023 01:00:00 PM Scheduled Provider:Roosevelt Sotelo PA-C [facility] Type:Cardiology Follow Up (FT) Future Scheduled Tests Radiology* US Carotid Duplex Bilateral 09/14/23 [facility] + Plan note Future Appointments Appointment Date:10/14/2023 12:40:00 PM Scheduled Provider:JES ROLLE PA-C Location:[facility] Appointment Type:URO Complex Office Visit Appointment Date:12/13/2023 01:00:00 PM Scheduled Provider:Roosevelt Sotelo PA-C [facility] Type:Cardiology Follow Up (FT) Future Scheduled Tests Radiology* US Carotid Duplex Bilateral 09/14/23 [facility] + Plan note Future Appointments Appointment Date:11/26/2023 09:30:00 AM Scheduled Provider: Location:[facility] Appointment Type:URO Nurse Visit Appointment Date:12/13/2023 01:00:00 PM Scheduled Provider:Roosevelt Sotelo PA-C [facility] Type:Cardiology Follow Up (FT) Appointment Date:12/13/2023 01:45:00 PM Scheduled Provider:Alexandro PARTIDA MD Location:[facility] Appointment Type:URO Office Visit Future Scheduled Tests Radiology* US Carotid Duplex Bilateral 09/14/23 [facility] evaluation + Plan note Future Appointments Appointment Date:02/21/2024 02:30:00 PM Scheduled Provider:Roosevelt Sotelo PA-C Location:FT.Cardiology Clinic Appointment Type:Cardiology Follow Up (FT) [facility] Evaluation noteNo assessment information available [facility] Work Phone: History general Narrative - Reported* Type Description Date Surgical History hysterectomy Surgical History lumbar [facility] Other History of Present illness Narrative* The [...] medication regimen. She denies medication side effects. [facility] 250 DO Work Phone: Hospital course Narrative No data available for this section [facility] No data available for this section [facility] No data available for this section [facility] Assessments No Assessments Information Available Family [...] dyspnea. * Patient was recently hospitalized at [facility]. The patient was seen in Cardiology consult with subsequent cardiovascular management by [facility]. Hospitalization records have been reviewed. * Reason for Cardiology Consultation: chest pain (presented with spontaneous PTX) * Consulting Ingredient Scaler Helper: Dr. Lopez * Cardiovascular testing: cardiac cath [...] evaluation. * Last week she presented to [facility] due to chest pain and dizziness. [...] and fluttering . 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 Due to blood pressure and palpitations [...] Status: Active Member Role Status Dates LEIGHANN Hines Primary Care Provider Active Start: September 10 Ronaldo Ty DO Attending Provider Active Sta rt: September 11, 2023 Team Status: Active Member Role Status Dates LEIGHANN Hines Primary Care Provider Active Start: October 11 Ronaldo Ty DO Attending Provider Active Sta rt: October [...] may be documented in an alternate section No data available for this section INFORMATION SOURCE (unrecogn ized section and content) DATE CREATED AUTHOR 06/24/2022 [employer] DATE CREATED AUTHOR AUTHOR'S ORGANIZ ATION 07/29/2022 [facility] DATE CREATED AUTHOR AUTHOR'S ORGANIZ ATION 08/16/2022 [facility] DATE CREATED AUTHOR AUTHOR'S ORGANIZ ATION 09/19/2023 [facility] DATE CREATED AUTHOR AUTHOR'S ORGANIZ ATION 10/21/2023 [facility] DATE CREATED AUTHOR AUTHOR'S ORGANIZ ATION 12/22/2023 [facility] DATE CREATED AUTHOR AUTHOR'S ORGANIZ ATION 01/07/2024 [facility] DATE CREATED AUTHOR AUTHOR'S ORGANIZ ATION 01/28/2024 [facility] REASON FOR VISIT (unrecogniz ed section and [...] BE BASED ON THE PRIMARY CLINICAL RECORDS. [employer] provides no warranty or guarantee of the accuracy or completeness of information in this document.
== END 2024-01-30 16:58 | disposition left against medical advice (07) ==
PROVIDERS: Emergency Provider Emergency Medicine; PCP Nurse Practitioner Family
DX: Z53.21 Procedure and treatment not carried out due to patient leaving prior to being seen by health care provider (principal)

== ENCOUNTER 2024-02-09 07:50 | Outpatient (OUT) | payer OTHER, SELFPAY ==
--- OUTSIDE RECORDS SUMMARY | 2024-02-09 08:02 | XMS_ITS | CCD ---
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 Name Role Phone None, No PCP Unavailable [...] Unavailable JES CRUZ Primary Care Physician [phone] CUATE KELLY Attending Unavailable JES CRUZ Primary [...] Cruz, Jes Kaur Primary Care U navailable Roosevelt Sotelo Admitting Unavailable Deepak, Roosevelt Remy Attending Unavailable Deepak, Roosevelt Remy Referring Unavailable ELSA, JES Akhtar Admitting Unavailable ELSA, JES Akhtar Attending Unavailable Ramone Garcia Attending Unavaila JES Ramesh Referring Unavailab Ramone Willson Admitting Unavaila ble Alexandro PARTIDA Attending Unavailable PARTIDA, Alexandro Hernandez Attending Unavailable PARTIDA, Alexandro Hernandez Attending Unavailable PARTIDA, Alexandro Hernandez Attending Unavailable ELSA, JES Akhtar Attending Unavailable CRUZ, JES Falcon Referring Unavailab JES Henderson Attending Unavailable PARTIDA, Alexandro Hernandez Attending Unavailable PARTIDA, Alexandro Hernandez Attending Unavailable NONE, XXXX Referring Unavailable Deepak, Roosevelt Remy Attending Unavailable JAQUAN, Alexandro Hernandez Attending Unavailable PARTIDA, Alxeandro Hernandez Referring Unavailable JAQUAN, Alexandro Hernandez Admitting Unavailable Ramone Garcia Referring Unavaila Ramone Hart Admitting Unavaila Ramone Hart Consulting Unavaila Ramone Hart Attending Unavaila Ramone Hart Consulting Unavaila Ramone Hart Consulting Unavaila ble OVITT, CHLOE Referring Unavailable OVITT, CHLOE Referring Unavailable OVITT, CHLOE Referring Unavailable OVITT, CHLOE Attending Unavailable OVCHIKIS, CHLOE Attending Unavailable Unavailable Unavailable Unavailable Allergies Allergy Classification Reported Allergen(s) Allergy Type Date of Onset Reaction(s) Facility Opioid Agonists (1 source) Codeine; Translations: [codeine] Drug Allergy Eruption of skin present [facility] (20 sources) Codeine; Translations: [codeine] Drug Allergy 09-03-2012 hives, Eruption of skin present [facility] Medications Current Medications Medication Drug Class(es) [...] Not-Nat g clonazePAM 0.5 mg oral tablet (8 [...] tablet, sublingual Active 0.4 MG SUBLINGUAL Q5M 100 April 04, 2021 1:00am do not exceed [...] Nocturia, # 60 tab(s), Refills(s) 3, Pharmacy: [facility]5, 165, cm, 01/17/20 11:18:00 EDT, Height/Length [...] Drug Class(es) Dates Sig (Normalized) Sig (Original) [id number] 200 actuat albuterol 0.09 mg/actuat metered dose [...] DAILY. Quantity: 90 Refills: 3 Ordered: 24-Jun-2022 Migel Peter LAURE Nadia Start : 24-Jun-2022 Active Start: 06-02-2021 take [...] 30 Refills: 0 Ordered: 13-Aug-2022 Migel Peter LAURE Nadia Start : 24-Jun-2022 Active lisinopril 10 mg [...] sources) Coronary atherosclerosis; Translations: [Coronary atherosclerosis of [place] coronary artery] 04-03-2021 Chronic Disorders of lipid [...] home (current) drug therapy] Onset: 06-09-2023 Episodic Unclassified (1 source) Contact with and (suspected) exposure to covid-19 Z20.822 Unclassified (8 sources) Bipolar (qualifier value) 03-18-2023 Results Test Name Value Interpretation Reference Range Facility 36on 02-04-2024 36 Pt called and was scheduled. Aspirin hold clearance request faxed to PCP. [facility] 36 LVM for pt to call back to discuss who prescribes aspirin and to schedule surgery. [facility] 36on 02-02-2024 36 Discussed with randolph espinal that I had reviewed her imaging with Dr. Yee. Note broken S1 screw. However, appears to have adequate bone fusion. He would be willing to offer her removal of the hardware, which would take about 2 hours with general anesthesia, likely 2 night hospital stay, reopening her current incision, possible need for drain. Would likely need about 6 weeks off work. Advised that there would still be a small remaining piece of screw that would not able to be accessed. Also advised that it is not clear if removing the hardware would help her back pain. She believes that her range of motion in her back is limited because of the hardware and that she did not have any back pain until after her injury and would like to proceed with having the hardware removed. Will work on arranging. [facility] Telephoneon 02-02-2024 Telephone [id number] Julianne Craig 1970 Date Provider Department Center 02/02/2024 148-OVCHIKIS, [facility] Second Fl Family History Problem Relation Age of Onset Coronary artery disease Mother Hypertension Mother Other Father Hypertension Father Other Daughter Comments: 05/2023 drug overdose Family Status - Relation Status Age at Mother Father Daughter [facility] 36on 02-01-2024 36 Left message for patient to call back to discuss plan for her back. [facility] Telephoneon 02-01-2024 Telephone [id number] Julianne Craig 1970 Date Provider Department Center 02/01/2024 148-OVCHIKIS, [facility] Second Fl Family History Problem Relation Age of Onset Coronary artery disease Mother Hypertension Mother Other Father Hypertension Father Other Daughter Comments: 05/2023 drug overdose Family Status - Relation Status Age at Mother Father Daughter [facility] Follow-Upon 01-27-2024 Follow-Up [id number] Juilanne Craig 1970 Date Provider Department Center 01/27/2024 148-OVITT, [facility] Second Fl Family History Problem Relation Age of Onset Coronary artery disease Mother Hypertension Mother Other Father Hypertension Father Other Daughter Comments: 05/2023 drug overdose Family Status - Relation Status Age at Mother Father Daughter Level of Service:32334 [place] OFFICE/OUTPATIENT ESTABLISHED MOD MDM 30 MIN Reason for Visit and Comments: Follow-up [[id number]] - Patient is here today for a follow up for back pain and reviewing her recent imaging Normal [facility] 36on 01-25-2024 36 Seed Tester saw that patient had no showed to todays imaging for CT and MRI. Seed Tester called patient to see if that was completed. She voiced that she got the imaging done at [facility] a couple weeks ago. Called [facility], they are pushing over imaging and sending over the reports. Normal [facility] US Carotid Duplex Bilateralo n 01-12-2024 US [...] Carotid Diagnostic Criteria Committee. Vascular Medicine 2020; https://journals.Mendeleyp ub.com/doi/full/10.117 7/[email or web address] Ordering Provider: Roosevelt Sotelo FINAL REPORT Dictated: 01/12/2024 1:18 pm Tulio Delgado DO Signed (Electronic Signature): 01/12/2024 1:18 pm Signed by: Tulio Delgado DO Transcribed by: CASEY Technologist: JENAE Technical Comments Velocities Right Vert. Antegrade Yes Technical Comments Velocities Left Vert. Antegrade Yes Normal [facility] 36on 01-06-2024 36 LVM for pt to notify. [facility] 01-06-2024 Orders Only [id number] Julianne Craig 1970 F Date Provider Department Center 01/06/2024 CHLOE TOMLIN [facility] SURG Second Fl Family History Problem Relation Age of Onset Coronary artery disease Mother Hypertension Mother Other Father Hypertension Father Other Daughter Comments: 05/2023 drug overdose Family Status - Relation Status Age at Mother Father Daughter [facility] 36on 01-05-2024 36 Pt called back stati ng that she had taken the medication prior to her original MRI that was scheduled. Per pt, Libia had a scheduling mix up. Pt was rescheduled for today. Pt states that she was going to try to do MRI without medication, but could not. Pt did say she had her CT done. [facility] Orders Onlyon 01-05-2024 Orders Only [id number] Julianne Craig 1970 F Date Provider Department Center 01/05/2024 CHLOE TOMLIN [facility] SURG Second Fl Family History Problem Relation Age of Onset Coronary artery disease Mother Hypertension Mother Other Father Hypertension Father Other Daughter Comments: 05/2023 drug overdose Family Status - Relation Status Age at Mother Father Daughter [facility] 36on 12-22-2023 36 Pt called and LVM requesting CT and MRI orders be faxed to [facility]. Pt has existing CT and MRI scheduled here at [facility]. I called and LVM with pt to notify of orders faxed to [facility], that she will need to bring disc of imaging to her follow up visit with Chloe Ceballos CNP and to call [facility] radiology to cancel appointments. Follow up visit date and time and radiology scheduling number provided in VM. [facility] Consulton 12-14-2023 Consult [id number] Julianne Craig 1970 F Date Provider Department Center 12/14/2023 Nitin-CHLOE CEBALLOS [facility] SURG Second Fl Family History Problem Relation Age of Onset Coronary artery disease Mother Hypertension Mother Other Father Hypertension Father Other Daughter Comments: 05/2023 drug overdose Family Status - Relation Status Age at Mother Father Daughter Level of Service:57397 [place] OFFICE/OUTPATIENT NEW MODERATE MDM 45 MINUTES Reason for Visit and Comments: Consult [484] - broken screw from past surgery. Pt will bring disc of Xr and MRI with her. 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 Copies to: Jes Cruz Ordering Provider: Jes [...] Bjorn Rdz M.D.12/02/2023 3:22 PM Dictation Location: [place] [address] Transcribed By: FLORES 12/02/23 1522 Dictated By: Bjorn Rdz II, MD 12/02/23 1512 Signed By: 12/02/23 1522 Normal [facility] Alanine aminotransferase [En zymatic activity/volume] in Serum or PlasmaOrdered By: Jes Cruz on 11-01-2023 ALT [Catalytic activity/Vol] 17 U/L Normal [facility] Comment on above: Order Comment: Reaso n for Exam Primary hypertension Reason for Exam Low iron Reason for Exam Primary hypertension;Hypertriglyceridemia Reason for Exam Hot flashes Reason for Exam Vitamin D deficiency Performed By: #### C BC, TSH3, [id number], CMP, SHAMA, FE and TIBC, LIPID, FSH, T3F, CUU, [id number], UA #### [facility] [address] [place] [address] [place] #### ESTRADIOL, LH #### [facility] , Albumin [Mass/volume] in Ser um or Plasma by Bromocresol green (BCG) dye binding methoOrdered By: Jes Cruz on 11-01-2023 Albumin BCG dye [Mass/Vol] 4.3 g/dL 3.5-5.7 [facility] Alkaline phosphatase [Enzyma tic activity/volume] in Serum or PlasmaOrdered By: Jes Cruz on 11-01-2023 ALP [Catalytic activity/Vol] 87 U/L Normal 34-104 [facility] Comment on above: Order Comment: Reaso n for Exam Primary hypertension Reason for Exam Low iron Reason for Exam Primary hypertension;Hypertriglyceridemia Reason for Exam Hot flashes Reason for Exam Vitamin D deficiency Performed By: #### C BC, TSH3, [id number], CMP, SHAMA, FE and TIBC, LIPID, FSH, T3F, CUU, [id number], UA #### [facility] [address] [place] [address] #### ESTRADIOL, LH #### [facility] , Aspartate aminotransferase [ Enzymatic activity/volume] in Serum or PlasmaOrdered By: Jes Cruz on 11-01-2023 AST [Catalytic activity/Vol] 13 U/L Normal 13-39 [facility] Comment on above: Order Comment: Reaso n for Exam Primary hypertension Reason for Exam Low iron Reason for Exam Primary hypertension;Hypertriglyceridemia Reason for Exam Hot flashes Reason for Exam Vitamin D deficiency Performed By: #### C BC, TSH3, [id number], CMP, SHAMA, FE and TIBC, LIPID, FSH, T3F, CUU, [id number], UA #### [facility] [address] [place] [address] [place] #### ESTRADIOL, LH #### [facility] , Automated basophil %Ordered By: Jes Cruz on 11-01-2023 Basophils/100 WBC (Bld) 1.1 % Normal . [facility] Comment on above: Order Comment: Reaso n for Exam Primary hypertension Performed By: #### C BC, TSH3, [id number], CMP, SHAMA, FE and TIBC, LIPID, FSH, T3F, CUU, [id number], UA #### [facility] [address] [place] [address] [place] #### ESTRADIOL, LH #### [facility] , Automated basophil countOrde red By: Jes Cruz on 11-01-2023 Basophils (Bld) [#/Vol] 0.1 10*3/uL Normal 0.0-0.2 [facility] Comment on above: Order Comment: Reaso n for Exam Primary hypertension Result Comment: PERF ORMED BY: [place] [address] PATHOLOGIST SPORTS PHYSICIAN PALOMO WESLEY M.D. Performed By: #### C BC, TSH3, [id number], CMP, SHAMA, FE and TIBC, LIPID, FSH, T3F, CUU, [id number], UA #### [facility] [address] [place] [address] #### ESTRADIOL, LH #### [facility] , Automated blood monocyte cou ntOrdered By: Jes Cruz on 11-01-2023 Monocytes (Bld) [#/Vol] 0.8 10*3/uL Normal 0.0-0.8 [facility] Comment on above: Order Comment: Reaso n for Exam Primary hypertension Performed By: #### C BC, TSH3, [id number], CMP, SHAMA, FE and TIBC, LIPID, FSH, T3F, CUU, [id number], UA #### [facility] [address] [place] [address] [place] #### ESTRADIOL, LH #### [facility] , Automated eosinophil %Ordere d By: Jes Cruz on 11-01-2023 Eosinophils/100 WBC (Bld) 1.5 % Normal . [facility] Comment on above: Order Comment: Reaso n for Exam Primary hypertension Performed By: #### C BC, TSH3, [id number], CMP, SHAMA, FE and TIBC, LIPID, FSH, T3F, CUU, [id number], UA #### [facility] [address] [place] [address] [place] #### ESTRADIOL, LH #### [facility] , Automated eosinophil countOr dered By: Jes Cruz on 11-01-2023 Eosinophils (Bld) [#/Vol] 0.1 10*3/uL Normal 0.0-0.45 [facility] Comment on above: Order Comment: Reaso n for Exam Primary hypertension Performed By: #### C BC, TSH3, [id number], CMP, SHAMA, FE and TIBC, LIPID, FSH, T3F, CUU, [id number], UA #### [facility] [address] [place] [address] [place] #### ESTRADIOL, LH #### [facility] , Automated monocyte %Ordered By: Jes Cruz on 11-01-2023 Monocytes/100 WBC (Bld) 10.8 % Normal . [facility] Comment on above: Order Comment: Reaso n for Exam Primary hypertension Performed By: #### C BC, TSH3, [id number], CMP, SHAMA, FE and TIBC, LIPID, FSH, T3F, CUU, [id number], UA #### [facility] [address] [place] [address] [place] #### ESTRADIOL, LH #### [facility] , Automated neutrophil %Ordere d By: Jes Cruz on 11-01-2023 Neutrophils/100 WBC (Bld) 58.6 % Normal . [facility] Comment on above: Order Comment: Reaso n for Exam Primary hypertension Performed By: #### C BC, TSH3, [id number], CMP, SHMAA, FE and TIBC, LIPID, FSH, T3F, CUU, [id number], UA #### [facility] [address] [place] [address] [place] #### ESTRADIOL, LH #### [facility] , Bilirubin Test strip Ql (U)O rdered By: Jes Cruz on 11-01-2023 Bilirubin Ql (U) Negative Negative [facility] Bilirubin.total [Mass/volume ] in Serum or PlasmaOrdered By: Jes Cruz on 11-01-2023 Bilirubin [Mass/Vol] 0.4 mg/dL Normal 0.3-1.0 [facility] Comment on above: Order Comment: Reaso n for Exam Primary hypertension Reason for Exam Low iron Reason for Exam Primary hypertension;Hypertriglyceridemia Reason for Exam Hot flashes Reason for Exam Vitamin D deficiency Performed By: #### C BC, TSH3, [id number], CMP, SHAMA, FE and TIBC, LIPID, FSH, T3F, CUU, [id number], UA #### [facility] [address] [place] [address] [place] #### ESTRADIOL, LH #### [facility] , Calcium [Mass/volume] in Ser um or PlasmaOrdered By: Jes Cruz on 11-01-2023 Calcium [Mass/Vol] 9.4 mg/dL Normal 8.6-10.3 [facility] Comment on above: Order Comment: Reaso n for Exam Primary hypertension Reason for Exam Low iron Reason for Exam Primary hypertension;Hypertriglyceridemia Reason for Exam Hot flashes Reason for Exam Vitamin D deficiency Performed By: #### C BC, TSH3, [id number], CMP, SHAMA, FE and TIBC, LIPID, FSH, T3F, CUU, [id number], UA #### [facility] [address] [place] [address] [place] #### ESTRADIOL, LH #### [facility] , Carbon dioxide, total [Moles /volume] in Serum or PlasmaOrdered By: Jes Cruz on 11-01-2023 CO2 [Moles/Vol] 28.5 mmol/L Normal 21.0-31.0 [facility] Comment on above: Order Comment: Reaso n for Exam Primary hypertension Reason for Exam Low iron Reason for Exam Primary hypertension;Hypertriglyceridemia Reason for Exam Hot flashes Reason for Exam Vitamin D deficiency Performed By: #### C BC, TSH3, [id number], CMP, SHAMA, FE and TIBC, LIPID, FSH, T3F, CUU, [id number], UA #### [facility] [address] [place] [address] [place] #### ESTRADIOL, LH #### [facility] , Chloride [Moles/volume] in S shanna or PlasmaOrdered By: Jes Cruz on 11-01-2023 Chloride [Moles/Vol] 105 mmol/L Normal 98-107 [facility] Comment on above: Order Comment: Reaso n for Exam Primary hypertension Reason for Exam Low iron Reason for Exam Primary hypertension;Hypertriglyceridemia Reason for Exam Hot flashes Reason for Exam Vitamin D deficiency Performed By: #### C BC, TSH3, [id number], CMP, SHAMA, FE and TIBC, LIPID, FSH, T3F, CUU, [id number], UA #### [facility] [address] [place] [address] [place] #### ESTRADIOL, LH #### [facility] , Cholesterol [Mass/volume] in Serum or PlasmaOrdered By: Jes Cruz on 11-01-2023 Cholesterol [Mass/Vol] 285 mg/dL High 140-200 [facility] Comment on above: Chol less than [...] risk Performed By: #### C BC, TSH3, [id number], CMP, SHAMA, FE and TIBC, LIPID, FSH, T3F, CUU, [id number], UA #### [facility] [address] [place] [address] [place] #### ESTRADIOL, LH #### [facility] , Cholesterol in LDL Calc [Mas s/Vol]Ordered By: Jes Cruz on 11-01-2023 Cholesterol in LDL [Mass/Vol] 198 mg/dL High 0-100 [facility] Comment on above: LDL ATP III CLASSIFI CATIONLDL less than 100 mg/dL OptimalLDL 100-129 mg/dL Near or above optimalLDL 130-159 mg/dL Borderline highLDL 160-189 mg/dL HighLDL greater than 189 mg/dL Very high Cholesterol in VLDL Calc [Ma ss/Vol]Ordered By: Jes Cruz on 11-01-2023 Cholesterol in VLDL [Mass/Vol] 29 mg/dL [facility] Color of Urine by AutoOrdere d By: Jes Cruz on 11-01-2023 Color (U) Light-yellow Normal Yellow [facility] Comment on above: Order Comment: Reaso n for Exam Microscopic hematuria Name Collection Type:: Voided Performed By: #### C BC, TSH3, [id number], CMP, SHAMA, FE and TIBC, LIPID, FSH, T3F, CUU, [id number], UA #### [place] [address] [place] #### ESTRADIOL, LH #### [facility] , Complete Blood Count Auto Di ffon 11-01-2023 Mean Corpuscular HGB Conc 33.6 g/dL Normal 32.0-35.0 [facility] Comment on above: Order Comment: Reaso n for Exam Primary hypertension Performed By: #### C BC, TSH3, [id number], CMP, SHAMA, FE and TIBC, LIPID, FSH, T3F, CUU, [id number], UA #### [place] [address] [place] #### ESTRADIOL, LH #### [facility] , NRBC% 0.1 /100{WBC} Normal 0-0.5 [facility] Comment on above: Order Comment: Reaso n for Exam Primary hypertension Performed By: #### C BC, TSH3, [id number], CMP, SHAMA, FE and TIBC, LIPID, FSH, T3F, CUU, [id number], UA #### [place] [address] [place] #### ESTRADIOL, LH #### [facility] , Comprehensive Metabolic Pane hema 11-01-2023 Albumin [Mass/Vol] 4.3 g/dL Normal 3.5-5.7 [facility] Comment on above: Order Comment: Reaso n for Exam Primary hypertension Reason for Exam Low iron Reason for Exam Primary hypertension;Hypertriglyceridemia Reason for Exam Hot flashes Reason for Exam Vitamin D deficiency Performed By: #### C BC, TSH3, [id number], CMP, SHAMA, FE and TIBC, LIPID, FSH, T3F, CUU, [id number], UA #### [facility] [address] [place] [address] [place] #### ESTRADIOL, LH #### [facility] , GFR/1.73 sq M.predicted MDRD (S/P/Bld) [Vol rate/Area] mL/min/{1.73_m2} Normal [facility] Comment on above: Order Comment: Reaso n for Exam Primary hypertension Reason for Exam Low iron Reason for Exam Primary hypertension;Hypertriglyceridemia Reason for Exam Hot flashes Reason for Exam Vitamin D deficiency Performed By: #### C BC, TSH3, [id number], CMP, SHAMA, FE and TIBC, LIPID, FSH, T3F, CUU, [id number], UA #### [address] #### ESTRADIOL, LH #### [facility] , Creatinine [Mass/volume] in Serum or PlasmaOrdered By: Jes Cruz on 11-01-2023 Creatinine [Mass/Vol] 0.75 mg/dL Normal 0.60-1.20 [facility] Comment on above: Order Comment: Reaso n for Exam Primary hypertension Reason for Exam Low iron Reason for Exam Primary hypertension;Hypertriglyceridemia Reason for Exam Hot flashes Reason for Exam Vitamin D deficiency Performed By: #### C BC, TSH3, [id number], CMP, SHAMA, FE and TIBC, LIPID, FSH, T3F, CUU, [id number], UA #### [place] [address] [place] #### ESTRADIOL, LH #### [facility] , Erythrocyte distribution wid th [Ratio] by Automated countOrdered By: Jes Cruz on 11-01-2023 Erythrocyte distribution width (RBC) [Ratio] 13.1 % Normal 11.9-15.3 [facility] Comment on above: Order Comment: Reaso n for Exam Primary hypertension Performed By: #### C BC, TSH3, [id number], CMP, SHAMA, FE and TIBC, LIPID, FSH, T3F, CUU, [id number], UA #### [facility] [address] #### ESTRADIOL, LH #### [facility] , Erythrocytes [#/volume] in B lood by Automated countOrdered By: Jes Cruz on 11-01-2023 RBC (Bld) [#/Vol] 4.13 10*6/uL Normal 3.60-5.00 [facility] Comment on above: Order Comment: Reaso n for Exam Primary hypertension Performed By: #### C BC, TSH3, [id number], CMP, SHAMA, FE and TIBC, LIPID, FSH, T3F, CUU, [id number], UA #### [facility] [address] [place] [address] #### ESTRADIOL, LH #### [facility] , Estradiolon 11-01-2023 Estradiol <5.0 Normal . [facility] Comment on above: Order Comment: Reaso n for Exam Hot flashes Result Comment: Adul t Female Range Follicular phase 12.5 - 166.0 Ovulation phase 85.8 - 498.0 Luteal phase 43.8 - 211.0 Postmenopausal <6.0 - 54.7 1st trimester 215.0 - >4300.0 Mp ECLIA methodology Performed at: - [facility] [id number] [place] Helper: Kurtis Gallegos PhD, Phone: [phone] PERFORMED BY: [place] [address] PATHOLOGIST SPORTS PHYSICIAN PALOMO WESLEY M.D. Performed By: #### C BC, TSH3, [id number], CMP, SHAMA, FE and TIBC, LIPID, FSH, T3F, CUU, [id number], UA ####[facility] [id number]#### ESTRADIOL, LH ####[facility] , Ferritin [Mass/volume] in Se rum or PlasmaOrdered By: Jes Cruz on 11-01-2023 Ferritin [Mass/Vol] 42.8 ng/mL Normal 11.0-306.8 [facility] Comment on above: Order Comment: Reaso n for Exam Primary hypertension Reason for Exam Low iron Reason for Exam Primary hypertension;Hypertriglyceridemia Reason for Exam Hot flashes Reason for Exam Vitamin D deficiency Performed By: #### C BC, TSH3, [id number], CMP, SHAMA, FE and TIBC, LIPID, FSH, T3F, CUU, [id number], UA #### [facility] [address] #### ESTRADIOL, LH #### [facility] , Folate [Mass/volume] in Seru m or PlasmaOrdered By: Jes Cruz on 11-01-2023 Folate [Mass/Vol] 10.3 ng/mL >5.9 [facility] Comment on above: Folate reference ran ge: >5.9 ng/mlThe WHO technical consultation on folate and vitamin [id number] has determined that folate concentrations lessthan 4 ng/ml are considered deficient. Follicle Stimulating Hormone on 11-01-2023 Follicle Stimulating Hormone 32.3 m[iU]/mL Normal [facility] Comment on above: Order [...] mIU/mL Performed By: #### C BC, TSH3, [id number], CMP, SHAMA, FE and TIBC, LIPID, FSH, T3F, CUU, [id number], UA ####[facility] [id number] [place] [address] [place]#### ESTRADIOL, LH ####[facility] , Follitropin [Units/volume] i n Serum or PlasmaOrdered By: Jes Cruz on 11-01-2023 Follitropin Qn 32.3 m[IU]/mL [facility] Comment on above: FEMALE NORMALS (KEVEN ENOPAUSE) MID-FOLLICULAR PHASE: 3.9-8.8 mIU/mL MID-CYCLE PEAK: 4.5-22.5 mIU/mL MID-LUTEAL PHASE: 1.8-5.1 mIU/mLFEMALE NORMALS (POSTMENOPAUSE): 16.7-113.6 mIU/mLMALE NORMALS: 1.3-19.3 mIU/mL Glucose [Mass/volume] in Ser um or PlasmaOrdered By: Jes Cruz on 11-01-2023 Glucose [Mass/Vol] 95 mg/dL Normal 70-100 [facility] Comment on above: ADA recommended refe rence [...] for Exam Vitamin D deficiency Result Comment: [place] om Glucose Reference Range is dependent on time and content of last meal. Glucose of more than 200 mg/dL in a nonstressed, ambulatory subject supports the diagnosis of Diabetes Mellitus. ADA recommended reference range Performed By: #### C BC, TSH3, [id number], CMP, SHAMA, FE and TIBC, LIPID, FSH, T3F, CUU, [id number], UA #### [facility] [address] [place] [address] [place] #### ESTRADIOL, LH #### [facility] , Glucose [Mass/volume] in Uri ne by Test stripOrdered By: Jes Cruz on 11-01-2023 Glucose Test strip (U) [Mass/Vol] Normal mg/dL Normal [facility] Hematocrit [Volume Fraction] of Blood by Automated countOrdered By: Jes Cruz on 11-01-2023 Hematocrit (Bld) [Volume fraction] 39.6 % Normal 34.0-46.4 [facility] Comment on above: Order Comment: Reaso n for Exam Primary hypertension Performed By: #### C BC, TSH3, [id number], CMP, SHAMA, FE and TIBC, LIPID, FSH, T3F, CUU, [id number], UA #### [facility] [address] [place] [address] [place] #### ESTRADIOL, LH #### [facility] , Hemoglobin Test strip Ql (U) Ordered By: Jes Cruz on 11-01-2023 Hemoglobin Ql (U) Negative Negative [facility] Hemoglobin [Mass/volume] in BloodOrdered By: Jes Cruz on 11-01-2023 Hemoglobin (Bld) [Mass/Vol] 13.3 g/dL Normal 11.8-15.4 [facility] Comment on above: Order Comment: Reaso n for Exam Primary hypertension Performed By: #### C BC, TSH3, [id number], CMP, SHAMA, FE and TIBC, LIPID, FSH, T3F, CUU, [id number], UA #### [facility] [address] [place] [address] [place] #### ESTRADIOL, LH #### [facility] , Iron [Mass/volume] in Serum or PlasmaOrdered By: Jes Cruz on 11-01-2023 Iron [Mass/Vol] 106 ug/dL Normal 50-212 [facility] Comment on above: Order Comment: Reaso n for Exam Primary hypertension Reason for Exam Low iron Reason for Exam Primary hypertension;Hypertriglyceridemia Reason for Exam Hot flashes Reason for Exam Vitamin D deficiency Performed By: #### C BC, TSH3, [id number], CMP, SHAMA, FE and TIBC, LIPID, FSH, T3F, CUU, [id number], UA #### [facility] [address] [place] [address] [place] #### ESTRADIOL, LH #### [facility] , Iron and TIBC Profileon 10-04 % Iron Saturation 25.1 % Normal 20-50 [facility] Comment on above: Order Comment: Reaso n for Exam Primary hypertension Reason for Exam Low iron Reason for Exam Primary hypertension;Hypertriglyceridemia Reason for Exam Hot flashes Reason for Exam Vitamin D deficiency Performed By: #### C BC, TSH3, [id number], CMP, SHAMA, FE and TIBC, LIPID, FSH, T3F, CUU, [id number], UA #### [facility] [address] [place] [address] [place] #### ESTRADIOL, LH #### [facility] , Total Iron Binding Capacity 423 ug/dL Normal 255-450 [facility] Comment on above: Order Comment: Reaso n for Exam Primary hypertension Reason for Exam Low iron Reason for Exam Primary hypertension;Hypertriglyceridemia Reason for Exam Hot flashes Reason for Exam Vitamin D deficiency Performed By: #### C BC, TSH3, [id number], CMP, SHAMA, FE and TIBC, LIPID, FSH, T3F, CUU, [id number], UA #### [facility] [address] [place] [address] [place] #### ESTRADIOL, LH #### [facility] , Iron binding capacity [Mass/ volume] in Serum or PlasmaOrdered By: Jes Cruz on 11-01-2023 Iron binding capacity [Mass/Vol] 423 ug/dL 255-450 [facility] Iron saturation [Mass Fracti on] in Serum or PlasmaOrdered By: Jes Cruz on 11-01-2023 Iron saturation [Mass fraction] 25.1 % 20-50 [facility] Ketones [Presence] in Urine by Test stripOrdered By: Jes Cruz on 11-01-2023 Ketones Ql (U) Negative Normal Negative [facility] Comment on above: Order Comment: Reaso n for Exam Microscopic hematuria Name Collection Type:: Voided Performed By: #### C BC, TSH3, [id number], CMP, SHAMA, FE and TIBC, LIPID, FSH, T3F, CUU, [id number], UA #### [facility] [address] #### ESTRADIOL, LH #### [facility] , Leukocyte esterase [Presence ] in Urine by Test stripOrdered By: Jes Cruz on 11-01-2023 Leukocyte esterase Test strip Ql (U) Negative Normal Negative [facility] Comment on above: Order Comment: Reaso n for Exam Microscopic hematuria Name Collection Type:: Voided Performed By: #### C BC, TSH3, [id number], CMP, SHAMA, FE and TIBC, LIPID, FSH, T3F, CUU, [id number], UA #### [facility] [address] [place] [address] [place] #### ESTRADIOL, LH #### [facility] , Leukocytes [#/volume] correc ricardo for nucleated erythrocytes in Blood by Automated counOrdered By: Jes Cruz on 11-01-2023 WBC corrected for nucl RBC Auto (Bld) [#/Vol] 7.3 10*3/uL 3.8-11.6 [facility] Leukocytes [#/volume] in Blo od by Automated countOrdered By: Jes Cruz on 11-01-2023 WBC (Bld) [#/Vol] 7.3 10*3/uL Normal 3.8-11.6 [facility] Comment on above: Order Comment: Reaso n for Exam Primary hypertension Performed By: #### C BC, TSH3, [id number], CMP, SHAMA, FE and TIBC, LIPID, FSH, T3F, CUU, [id number], UA #### [facility] [address] [place] [address] [place] #### ESTRADIOL, LH #### [facility] , Lipid Panelon 11-01-2023 LDL Cholesterol,Calculated 198 mg/dL High 0-[address] [facility] Comment on above: Order [...] high Performed By: #### C BC, TSH3, [id number], CMP, SHAMA, FE and TIBC, LIPID, FSH, T3F, CUU, [id number], UA #### [facility] [address] [place] [address] [place] #### ESTRADIOL, LH #### [facility] , Triglyceride w/Reflex 145 mg/dL Normal 0-149 [facility] Comment on above: Order [...] method. Performed By: #### C BC, TSH3, [id number], CMP, SHAMA, FE and TIBC, LIPID, FSH, T3F, CUU, [id number], UA #### [facility] [address] [place] [address] [place] #### ESTRADIOL, LH #### [facility] , VLDL CHOLESTEROL 29 mg/dL Normal [facility] Comment on above: Order Comment: Reaso n for Exam Primary hypertension Reason for Exam Low iron Reason for Exam Primary hypertension;Hypertriglyceridemia Reason for Exam Hot flashes Reason for Exam Vitamin D deficiency Performed By: #### C BC, TSH3, [id number], CMP, SHAMA, FE and TIBC, LIPID, FSH, T3F, CUU, [id number], UA #### [facility] [address] [place] [address] [place] #### ESTRADIOL, LH #### [facility] , Luteinizing Hormoneon 2023 Luteinizing Hormone 20.7 m[iU]/mL Normal . [facility] Comment on above: Order Comment: Reaso n for Exam Hot flashes Result Comment: Adul t Female Range Follicular phase 2.4 - 12.6 Ovulation phase 14.0 - 95.6 Luteal phase 1.0 - 11.4 Postmenopausal 7.7 - 58.5 Performed By: #### C BC, TSH3, [id number], CMP, SHAMA, FE and TIBC, LIPID, FSH, T3F, CUU, [id number], UA ####[facility] [id number]#### ESTRADIOL, LH ####[facility] , Lymphocytes [#/volume] in Bl ood by Automated countOrdered By: Jes Cruz on 11-01-2023 Lymphocytes (Bld) [#/Vol] 2.0 10*3/uL Normal 1.00-4.8 [facility] Comment on above: Order Comment: Reaso n for Exam Primary hypertension Performed By: #### C BC, TSH3, [id number], CMP, SHAMA, FE and TIBC, LIPID, FSH, T3F, CUU, [id number], UA #### [facility] [address] #### ESTRADIOL, LH #### [facility] , Lymphocytes/100 leukocytes i n Blood by Automated countOrdered By: Jes Cruz on 11-01-2023 Lymphocytes/100 WBC (Bld) 28.0 % Normal . [facility] Comment on above: Order Comment: Reaso n for Exam Primary hypertension Performed By: #### C BC, TSH3, [id number], CMP, SHAMA, FE and TIBC, LIPID, FSH, T3F, CUU, [id number], UA #### [facility] [address] [place] [address] [place] #### ESTRADIOL, LH #### [facility] , MCH [Entitic mass] by Automa ricardo countOrdered By: Jes Cruz on 11-01-2023 MCH (RBC) [Entitic mass] 32.3 pg Normal 24.7-34.3 [facility] Comment on above: Order Comment: Reaso n for Exam Primary hypertension Performed By: #### C BC, TSH3, [id number], CMP, SHAMA, FE and TIBC, LIPID, FSH, T3F, CUU, [id number], UA #### [facility] [address] [place] [address] [place] #### ESTRADIOL, LH #### [facility] , MCHC Auto (RBC) [Mass/Vol]Or dered By: Jes Cruz on 11-01-2023 MCHC (RBC) [Mass/Vol] 33.6 g/dL 32.0-35.0 [facility] MCV [Entitic volume] by Auto mated countOrdered By: Jes Cruz on 11-01-2023 MCV (RBC) [Entitic vol] 96.0 fL Normal 80-100 [facility] Comment on above: Order Comment: Reaso n for Exam Primary hypertension Performed By: #### C BC, TSH3, [id number], CMP, SHAMA, FE and TIBC, LIPID, FSH, T3F, CUU, [id number], UA #### [facility] [address] [place] [address] [place] #### ESTRADIOL, LH #### [facility] , Neutrophils [#/volume] in Bl ood by Automated countOrdered By: Jes Cruz on 11-01-2023 Neutrophils (Bld) [#/Vol] 4.3 10*3/uL Normal 1.8-7.7 [facility] Comment on above: Order Comment: Reaso n for Exam Primary hypertension Performed By: #### C BC, TSH3, [id number], CMP, SHAMA, FE and TIBC, LIPID, FSH, T3F, CUU, [id number], UA #### [facility] [address] [place] [address] [place] #### ESTRADIOL, LH #### [facility] , Nitrite Test strip Ql (U)Ord ered By: Jes Cruz on 11-01-2023 Nitrite Ql (U) Negative Negative [facility] No Panel InformationOrdered By: Jes Cruz on 11-01-2023 Estimated GFR (CKD-EPI) > 60.0 mL/Min [facility] Creatinine Clearance (Chem N/A [facility] Nucleated erythrocytes [Pres ence] in Blood by Automated countOrdered By: Jes Cruz on 11-01-2023 Nucleated RBC Auto Ql (Bld) 0.1 /100{WBC} 0-0.5 [facility] Platelet mean volume [Entiti c volume] in Blood by Automated countOrdered By: Jes Cruz on 11-01-2023 Platelet mean volume (Bld) [Entitic vol] 8.3 fL Normal 6.3-10.7 [facility] Comment on above: Order Comment: Reaso n for Exam Primary hypertension Performed By: #### C BC, TSH3, [id number], CMP, SHAMA, FE and TIBC, LIPID, FSH, T3F, CUU, [id number], UA #### [facility] [address] [place] [address] [place] #### ESTRADIOL, LH #### [facility] , Platelets [#/volume] in Bloo d by Automated countOrdered By: Jes Cruz on 11-01-2023 Platelets (Bld) [#/Vol] 384 10*3/uL Normal 150-450 [facility] Comment on above: Order Comment: Reaso n for Exam Primary hypertension Performed By: #### C BC, TSH3, [id number], CMP, SHAMA, FE and TIBC, LIPID, FSH, T3F, CUU, [id number], UA #### [facility] [address] [place] [address] [place] #### ESTRADIOL, LH #### [facility] , Potassium [Moles/volume] in Serum or PlasmaOrdered By: Jes Cruz on 11-01-2023 Potassium [Moles/Vol] 4.3 mmol/L Normal 3.5-5.1 [facility] Comment on above: Order Comment: Reaso n for Exam Primary hypertension Reason for Exam Low iron Reason for Exam Primary hypertension;Hypertriglyceridemia Reason for Exam Hot flashes Reason for Exam Vitamin D deficiency Performed By: #### C BC, TSH3, [id number], CMP, SHAMA, FE and TIBC, LIPID, FSH, T3F, CUU, [id number], UA #### [facility] [address] [place] [address] [place] #### ESTRADIOL, LH #### [facility] , Protein Test strip (U) [Mass /Vol]Ordered By: Jes Cruz on 11-01-2023 Protein (U) [Mass/Vol] Negative Negative [facility] Protein [Mass/volume] in Ser um or PlasmaOrdered By: Jes Cruz on 11-01-2023 Protein [Mass/Vol] 6.9 g/dL Normal 6.4-8.9 [facility] Comment on above: Order Comment: Reaso n for Exam Primary hypertension Reason for Exam Low iron Reason for Exam Primary hypertension;Hypertriglyceridemia Reason for Exam Hot flashes Reason for Exam Vitamin D deficiency Performed By: #### C BC, TSH3, [id number], CMP, SHAMA, FE and TIBC, LIPID, FSH, T3F, CUU, [id number], UA #### [facility] [address] [place] [address] [place] #### ESTRADIOL, LH #### [facility] , Serum globulin measurement b y calculation (mass/volume)Ordered By: Jes Cruz on 11-01-2023 Globulin (S) [Mass/Vol] 2.6 g/dL Normal [facility] Comment on above: Order Comment: Reaso n for Exam Primary hypertension Reason for Exam Low iron Reason for Exam Primary hypertension;Hypertriglyceridemia Reason for Exam Hot flashes Reason for Exam Vitamin D deficiency Performed By: #### C BC, TSH3, [id number], CMP, SHAMA, FE and TIBC, LIPID, FSH, T3F, CUU, [id number], UA #### [facility] [address] [place] [address] [place] #### ESTRADIOL, LH #### [facility] , Serum or plasma albumin/glob ulin mass ratioOrdered By: Jes Cruz on 11-01-2023 Albumin/Globulin [Mass ratio] 1.7 {ratio} Normal [facility] Comment on above: Order Comment: Reaso n for Exam Primary hypertension Reason for Exam Low iron Reason for Exam Primary hypertension;Hypertriglyceridemia Reason for Exam Hot flashes Reason for Exam Vitamin D deficiency Performed By: #### C BC, TSH3, [id number], CMP, SHAMA, FE and TIBC, LIPID, FSH, T3F, CUU, [id number], UA #### [facility] [address] [place] [address] [place] #### ESTRADIOL, LH #### [facility] , Serum or plasma anion gap de terminationOrdered By: Jes Cruz on 11-01-2023 Anion gap [Moles/Vol] 10.8 mmol/L Normal 6.0-15.0 [facility] Comment on above: Order Comment: Reaso n for Exam Primary hypertension Reason for Exam Low iron Reason for Exam Primary hypertension;Hypertriglyceridemia Reason for Exam Hot flashes Reason for Exam Vitamin D deficiency Performed By: #### C BC, TSH3, [id number], CMP, SHAMA, FE and TIBC, LIPID, FSH, T3F, CUU, [id number], UA #### [facility] [address] [place] [address] [place] #### ESTRADIOL, LH #### [facility] , Serum or plasma estradiol (E 2) measurement (mass/volume)Ordered By: Jes Crzu on 11-01-2023 E2 [Mass/Vol] pg/mL . [facility] Comment on above: Adult Female Range F ollicular phase 12.5 - 166.0 Ovulation phase 85.8 - 498.0 Luteal phase 43.8 - 211.0 Postmenopausal <6.0 - 54.7 1st trimester 215.0 - >4300.0Roche ECLIA methodologyPerformed at: - [facility] [address] [id number] Director: Kurtis Gallegos PhD, Phone: [phone] Serum or plasma high density lipoprotein (HDL) cholesterol measurementOrdered By: Jes Cruz on 11-01-2023 Cholesterol in HDL [Mass/Vol] 58 mg/dL Normal 23-92 [facility] Comment on above: HDL CHOL ATP-III [...] HIGH Performed By: #### C BC, TSH3, [id number], CMP, SHAMA, FE and TIBC, LIPID, FSH, T3F, CUU, [id number], UA #### [facility] [address] #### ESTRADIOL, LH #### [facility] , Serum or plasma lutropin paramjit surement (units/volume)Ordered By: Jes Cruz on 11-01-2023 Lutropin Qn 20.7 m[IU]/mL . [facility] Comment on above: Adult Female Range F ollicular phase 2.4 - 12.6 Ovulation phase 14.0 - 95.6 Luteal phase 1.0 - 11.4 Postmenopausal 7.7 - 58.5 Serum or plasma total choles terol/high density lipoprotein (HDL) cholesterol mass ratOrdered By: Jes Cruz on 11-01-2023 Cholesterol.total/Chol esterol in HDL [Mass ratio] 4.9 {ratio} Normal <5.0 [facility] Comment on above: Order Comment: Reaso n for Exam Primary hypertension Reason for Exam Low iron Reason for Exam Primary hypertension;Hypertriglyceridemia Reason for Exam Hot flashes Reason for Exam Vitamin D deficiency Performed By: #### C BC, TSH3, [id number], CMP, SHAMA, FE and TIBC, LIPID, FSH, T3F, CUU, [id number], UA #### [facility] [address] [place] [address] [place] #### ESTRADIOL, LH #### [facility] , Sodium [Moles/volume] in Ser um or PlasmaOrdered By: Jes Cruz on 11-01-2023 Sodium [Moles/Vol] 140 mmol/L Normal 136-145 [facility] Comment on above: Order Comment: Reaso n for Exam Primary hypertension Reason for Exam Low iron Reason for Exam Primary hypertension;Hypertriglyceridemia Reason for Exam Hot flashes Reason for Exam Vitamin D deficiency Performed By: #### C BC, TSH3, [id number], CMP, SHAMA, FE and TIBC, LIPID, FSH, T3F, CUU, [id number], UA #### [facility] [address] #### ESTRADIOL, LH #### [facility] , Specific gravity Test strip (U) [Rel density]Ordered By: Jes Cruz on 11-01-2023 Specific gravity (U) [Rel density] 1.014 1.001-1.030 [facility] Thyrotropin [Units/volume] i n Serum or PlasmaOrdered By: Jes Cruz on 11-01-2023 TSH Qn 1.49 m[IU]/L Normal 0.45-5.33 [facility] Comment on above: Order Comment: Reaso n for Exam Primary hypertension Reason for Exam Low iron Reason for Exam Primary hypertension;Hypertriglyceridemia Reason for Exam Hot flashes Reason for Exam Vitamin D deficiency Performed By: #### C BC, TSH3, [id number], CMP, SHAMA, FE and TIBC, LIPID, FSH, T3F, CUU, [id number], UA ####[facility] [id number] [place] [address] [place]#### ESTRADIOL, LH ####[facility] , Transferrin [Mass/volume] in Serum or PlasmaOrdered By: Jes Cruz on 11-01-2023 Transferrin [Mass/Vol] 302 mg/dL Normal 203-362 [facility] Comment on above: Order Comment: Reaso n for Exam Primary hypertension Reason for Exam Low iron Reason for Exam Primary hypertension;Hypertriglyceridemia Reason for Exam Hot flashes Reason for Exam Vitamin D deficiency Performed By: #### C BC, TSH3, [id number], CMP, SHAMA, FE and TIBC, LIPID, FSH, T3F, CUU, [id number], UA #### [facility] [address] [place] [address] [place] #### ESTRADIOL, LH #### [facility] , Triglyceride [Mass/volume] i n Serum or PlasmaOrdered By: Jes Cruz on 11-01-2023 Triglyceride [Mass/Vol] 145 mg/dL 0-149 [facility] Comment on above: TRIG ATP III CLASSIF ICATIONTRIG less than 150 mg/dL NormalTRIG 150-199 mg/dL Borderline highTRIG 200-500 mg/dL High TRIG greater than 500 mg/dL Very highStandard traceable to the Center for Disease Conrtrol and Prevention (CDC) test method. Triiodothyronine (T3) Freeon 11-01-2023 Triiodothyronine (T3) Free 2.86 pg/mL Normal 2.50-3.90 [facility] Comment on above: Order Comment: Reaso n for Exam Hot flashes Result Comment: PERF ORMED BY: [place] [address] PATHOLOGIST SPORTS PHYSICIAN PALOMO WESLEY M.D. Performed By: #### C BC, TSH3, [id number], CMP, SHAMA, FE and TIBC, LIPID, FSH, T3F, CUU, [id number], UA #### [facility] [address] [place] [address] #### ESTRADIOL, LH #### [facility] , Triiodothyronine (T3) Free [ Mass/volume] in Serum or PlasmaOrdered By: Jes Cruz on 11-01-2023 Free T3 [Mass/Vol] 2.86 pg/mL 2.50-3.90 [facility] Urea nitrogen [Mass/volume] in Serum or PlasmaOrdered By: Jes Cruz on 11-01-2023 Urea nitrogen [Mass/Vol] 17 mg/dL Normal 7-25 [facility] Comment on above: Order Comment: Reaso n for Exam Primary hypertension Reason for Exam Low iron Reason for Exam Primary hypertension;Hypertriglyceridemia Reason for Exam Hot flashes Reason for Exam Vitamin D deficiency Performed By: #### C BC, TSH3, [id number], CMP, SHAMA, FE and TIBC, LIPID, FSH, T3F, CUU, [id number], UA #### [address] #### ESTRADIOL, LH #### [facility] , Urinalysison 11-01-2023 Bilirubin,Urine Negative Normal Negative [facility] Comment on above: Order Comment: Reaso n for Exam Microscopic hematuria Name Collection Type:: Voided Performed By: #### C BC, TSH3, [id number], CMP, SHAMA, FE and TIBC, LIPID, FSH, T3F, CUU, [id number], UA #### [place] [address] [place] #### ESTRADIOL, LH #### [facility] , Glucose Ql (U) Normal Normal Normal [facility] Comment on above: Order Comment: Reaso n for Exam Microscopic hematuria Name Collection Type:: Voided Performed By: #### C BC, TSH3, [id number], CMP, SHAMA, FE and TIBC, LIPID, FSH, T3F, CUU, [id number], UA #### [place] [address] [place] #### ESTRADIOL, LH #### [facility] , Nitrite,Urine Negative Normal Negative [facility] Comment on above: Order Comment: Reaso n for Exam Microscopic hematuria Name Collection Type:: Voided Performed By: #### C BC, TSH3, [id number], CMP, SHAMA, FE and TIBC, LIPID, FSH, T3F, CUU, [id number], UA #### [place] [address] [place] #### ESTRADIOL, LH #### [facility] , Occult Blood,Urine Negative Normal Negative [facility] Comment on above: Order Comment: Reaso n for Exam Microscopic hematuria Name Collection Type:: Voided Result Comment: PERF ORMED BY: [place] [address] PATHOLOGIST SPORTS PHYSICIAN PALOMO WESLEY M.D. Performed By: #### C BC, TSH3, [id number], CMP, SHAMA, FE and TIBC, LIPID, FSH, T3F, CUU, [id number], UA #### [place] [address] [place] #### ESTRADIOL, LH #### [facility] , Protein,Urine Negative Normal Negative [facility] Comment on above: Order Comment: Reaso n for Exam Microscopic hematuria Name Collection Type:: Voided Performed By: #### C BC, TSH3, [id number], CMP, SHAMA, FE and TIBC, LIPID, FSH, T3F, CUU, [id number], UA #### [place] [address] [place] #### ESTRADIOL, LH #### [facility] , Specificy [place],Urine 1.014 Normal 1.001-1.030 [facility] Comment on above: Order Comment: Reaso n for Exam Microscopic hematuria Name Collection Type:: Voided Performed By: #### C BC, TSH3, [id number], CMP, SHAMA, FE and TIBC, LIPID, FSH, T3F, CUU, [id number], UA #### [place] [address] [place] #### ESTRADIOL, LH #### [facility] , Urobilinogen,Urine Normal Normal Normal [facility] Comment on above: Order Comment: Reaso n for Exam Microscopic hematuria Name Collection Type:: Voided Performed By: #### C BC, TSH3, [id number], CMP, SHAMA, FE and TIBC, LIPID, FSH, T3F, CUU, [id number], UA #### [place] [address] [place] #### ESTRADIOL, LH #### [facility] , Urine Cultureon 11-01-2023 Bacteria identified Cx Nom (U) Reason for Exam Microscopic hematuria Urine Reason for Exam: Microscopic hematuria : Urine <9,000 colonies/ml mixed bacterial skin contaminants 2 Days PERFORMED BY: [place] [address] PATHOLOGIST SPORTS PHYSICIAN PALOMO WESLEY M.D. Normal [facility] Comment on above: Performed By: #### C BC, TSH3, [id number], CMP, SHAMA, FE and TIBC, LIPID, FSH, T3F, CUU, [id number], UA ####[facility] [id number]#### ESTRADIOL, LH ####[facility] , Urine appearanceOrdered By: Jes Cruz on 11-01-2023 Appearance (U) Clear Normal Clear [facility] Comment on above: Order Comment: Reaso n for Exam Microscopic hematuria Name Collection Type:: Voided Performed By: #### C BC, TSH3, [id number], CMP, SHAMA, FE and TIBC, LIPID, FSH, T3F, CUU, [id number], UA #### [facility] [address] [place] [address] #### ESTRADIOL, LH #### [facility] , Urine culture routineOrdered By: Jes Cruz on 11-01-2023 Bacteria identified Cx Nom (U) 2 Days [facility] Urobilinogen Test strip (U) [Mass/Vol]Ordered By: Jes Cruz on 11-01-2023 Urobilinogen (U) [Mass/Vol] Normal mg/dL Normal [facility] Vit. B12/Folate Profileon Folate 10.3 ng/mL Normal >5.9 [facility] Comment on above: Order [...] deficient. Performed By: #### C BC, TSH3, [id number], CMP, SHAMA, FE and TIBC, LIPID, FSH, T3F, CUU, [id number], UA ####[facility] [id number] [place] [address] [facility]#### ESTRADIOL, LH ####[facility] , Vitamin B12 ser/plasOrdered By: Jes Cruz on 11-01-2023 Cobalamin (Vitamin B12) [Mass/Vol] 208 pg/mL Normal 180-914 [facility] Comment on above: Order Comment: Reaso n for Exam Primary hypertension Reason for Exam Low iron Reason for Exam Primary hypertension;Hypertriglyceridemia Reason for Exam Hot flashes Reason for Exam Vitamin D deficiency Performed By: #### C BC, TSH3, [id number], CMP, SHAMA, FE and TIBC, LIPID, FSH, T3F, CUU, [id number], UA ####[facility] [id number] [place] [id number] [facility]#### ESTRADIOL, LH ####[facility] , Vitamin D 25 Hydroxy Totalon 11-01-2023 Vitamin D 25 Hydroxy Total 34.2 ng/mL Normal 30-100 [facility] Comment on above: Order [...] practice guideline. [facility]. 2010; 96(7):1911-30. PERFORMED BY: [facility] [address] [place] [id number] PATHOLOGIST SPORTS PHYSICIAN PALOMO WESLEY M.D. Performed By: #### C BC, TSH3, [id number], CMP, SHAMA, FE and TIBC, LIPID, FSH, T3F, CUU, [id number], UA ####[facility] Mem[address]#### ESTRADIOL, LH ####[facility] , Vitamin D+Metabolites [Mass/ volume] in Serum or PlasmaOrdered By: Jes Cruz on 11-01-2023 Vitamin D+Metabolites [Mass/Vol] 34.2 ng/mL 30-100 [facility] Comment on above: VITAMIN D STATUS 25( [place])VITAMIN D RANGE (ng/mL) Deficient <20 Insufficient 20 to <30Sufficient 30 to 100Reference: Baron MF,Suze NC, Abdiel MAXWELL, et al. Evaluation,treatment, and prevention of vitamin D deficiency; an Endocrine Society clinical practice guideline. JCEM. 2010; 96(7):1911-30. pH of Urine by Test stripOrd ered By: Jes Cruz on 11-01-2023 pH (U) 6.5 [pH] Normal 5.0-9.0 [facility] Comment on above: Order Comment: Reaso n for Exam Microscopic hematuria Name Collection Type:: Voided Performed By: #### C BC, TSH3, [id number], CMP, SHAMA, FE and TIBC, LIPID, FSH, T3F, CUU, [id number], UA #### [facility] [address] #### ESTRADIOL, LH #### [facility] , [...] for choosing us for your care. Normal [facility] Provider Letteron 10-14-2023 Provider Letter Provider [facility] [address] [address] : 1970 To Whom It May Concern, Please excuse above patient from work. Date of Illness: From: 10/14/23 To: 10/14/23 May Return to Work On: Patient had an appointment on 10/14/23 with SHABNAM Bowens Restrictions: None Comments: Patient had an appointment with SHABNAM Bowens on 10/14/23 Sincerely, [facility] , option #3 [facility] Urology Office/Clinic Noteon 10-14-2023 Urology Office/Clinic [...] E&M of Est. Patient Moderate 30-39 Min 77631 2. History of kidney stones (Z87.442: Personal [...] Urnls Dip Stick Auto w/o Microscopy POC 16908 Follow-up With When Contact Information [facility] [address] [place] [address] [facility] (1) Additional Instructions: for procedure as scheduled [...] disease: Mother. (more content not included)... Normal [facility] Comment on above: Result Comment: Elec tronically Signed By: JES ROLLE PA-C\Date and Time Signed: 10/14/23 13:24 EDT Main OR Intraoperative Recor don 10-05-2023 Main OR Intraoperative Record Main OR Intraoperative Record IntraOp Document Type FTURO Summary Primary Physician: Alexandro PARTIDA MD Finalized Date/Time: 10/05/23 09:45:46 Pt. Name: ISELA CRAIG/Sex: 1970 Female Med Rec #: [id number] Physician: Alexandro PARTIDA MD Financial #: [id number] Pt. Type: O Room/Bed: / Admit/Disch: 10/05/23 [...] Kendall R Role Performed Surgeon - Primary Compressor Assembler - Primary Scrub - Primary Time In [...] 10/05/23 09:42 Estrella Aguirre 10/05/23 09:45 [facility] Main OR Preoperative Recordo n 10-05-2023 Main OR Preoperative Record Main OR Preoperative Record Holding Area Document Type FTURO Summary Primary Physician: Alexandro PARTIDA MD Finalized Date/Time: 10/05/23 08:57:00 Pt. Name: ISELA CRAIG/Sex: 1970 Female Med Rec #: [id number] Physician: Alexandro PARTIDA MD Financial #: [id number] Pt. Type: O Room/Bed: / Admit/Disch: 10/05/23 [...] SEAN Pagan RN, Ruthann 10/05/23 08:57 [facility] Operative Reporton Operative Report Operative Report [...] Kim Rolle in a month or 2.. [facility] Comment on above: Result Comment: Elec tronically Signed By: JAQUAN PATRICK, Alexandro Jewell\Date and Time Signed: 10/05/23 09:46 EDT Provider Letteron 10-05-2023 Provider Letter Provider Letter October 05, 2023 To Whom It May Concern, Please excuse above patient from work. Date of Illness: From: 10/05/2023 To: 10/05/2023 May Return On:10/05/2023 Sincerely, [facility] [address], [address] [place] [address] [facility] Insurance Correspondenceon 0 09-28-2023 Insurance Correspondence [id number]#1. [id number] [facility] Coding Summary.on 09-23-2023 Coding Summary. NGYJMgnr54SEg4aSq+PG hl YWQ+TG6NNNNeT06ouZGlxQ 3uG6XJFHqUMabkVUFHREdO RwWrmmGwAA6ooTXyGSRp IC8+KB7eDAAmDcgprFXfh3 O7eUM6S38ukt2tBQesnIP0 YPKmNsUumlldn8ttuUu1OU cuNmluOyBt WEWxsH35EUS3xN16Le86oA GgeVCda8epwUa9WiVbDAEi ULT7mCjiXJgin3LzQQQxQ9 8tbLTaj8S3 DCHbcEkwfNAuAyAgaSI6jK 9xQWbnavrhf6lscxpmMih3 so43bWBgo6U3aBZ5C0Euvt Q7EJWpcVNd QvltiDLJlW7nmqajn5fylk vtHdVmPVUgPEx9GNl4NDQl mLlvOgNnLI50AVH8RKXnpe AxQ2DeKCWb tOvgZsG7c5W3Lu8SK1CDEn hkB3LUNDJCOPqwxKA+PC90 kw10B2TdLlrfZdz5XSLvZJ V0jQF7sB1l ZTUvDHslm7E2nSE1K2Tnje Xbic0ru9ihFMOsLFlhS78z aBDjo6N8TWBkhDU3PGDjnZ lgGdLhkW16 Oyc+ANQixSyws2IvPmnhh2 hzd1ydcGg7AtoeMKFexqRy wIyxCCO2x6QlLp3vQRXxfS L8mNB2tR7s CaJgFkA6AGmsV227CqUpdY OuLehiY45kI3YsfTL+PHRy Zzb3UCHvfGdaWC2xW7UzKA RpbmctbGVm wIfeVT7lQLIjbffeNVEvnC 4vTHUuA4j3ZgXyUdZ1NLts X1HrNLJzkvngBm18dJ8bNl KxAhO5MZmd O5EvawO5WGVjsRDdXYwoZU R5J98am2U9WLYzACFcKMS6 cMK3gP4rkIbwrwbouXUfjP sgdmVydGlj CLyfFLoxZ886BZRwlKegXy NvZGluZyBEYXRlOiAgMDYv MjAvMjAyNDwvdGQ+PHRkIH M5aTgoGLEs wQSaAOklOg8erWkirIkfNU 4cWZJhtyhpRSCoxF1jWLEx xWUpiOtrKM7kCHPznkecs4 29WkPoASC4 JGOxdDHgP5YpbQ9wUnVtMX XmDJDxI8PlbYIeTUvzA303 MKkxGbC3OTYkntAzI6AgFZ FsaWduOiB0 g9G2Rf4Lu6MqrorbS5MpsW NkHhFvTqvbLYm4F9BxGvnp dHI+NT65WERpGD87ICo9LU L1lLajOAez GXSpI2SqpN9nJlBxZDPqGC RkOyc+PHRhYmxlIHdpZHRo BBzuOGRvBlEveIihTG7xRb 9yZGVyLWNv hWycvAZgLkBta5ftSOBwMF ynHU2bfYvbM9YnqAK1WWYb o6p2Pl16Z03zH8DftTC+PG AyqOT0gRV7 fW7bTzTrTnE1TEzcK232Sv HrpLOyJhfxi2tmr7iqzRu2 RiI4BAEygzSqeTmuEBK0z0 AgQg45K37t IHdpZHRoPSIxNSUiIHZhbG fcef9uaW5cUg6+PGNvbCB3 qJH4uT5fKjTaBcF3FHmtJ3 49InRvcCIv Pzbvb2irr7ytqEa0HtZpPK YfzrPtvDhdJXZ4j1IfQv12 A3AkkBahe0DlHgy6lm45tY Nqm8C5jLA6 J8NvSVNhnfruwMWsyWjbPR 9cYJMsbeamNALsvD7cUZEw Z1x2GzQlThN8JZptV8Romw Y3FINwjZMe KTOedMTFnC7ejjtek5lwsy ldDfYvTCDsLVe2KQe5YMBy tZhwFdWbOTI2YpK2ACW6mS BogM5hsBlm wrxjoN0jAui+WIA3cFTqbI GWRN9bJyywbBH+PHRkIHN0 xVgbRNqsAVWufZ5dOBKfM6 m5WpOtVeY4 CAboV6QmitP7XRFjuUWqHE MleSNRsK8dbbmov2orizmy UgUuRBUfSWn7XMt0CDLhhK duOiBsZWZ0 DoN8MPT8oHJnsM1rdCjhtk acdX8iFvm+QmlydGggRGF0 NGt3A1PnBsh0MFOjiOhuZG 0ncGFkZGlu Mi3zyUsnmCztES8lWHOvli ygl928GeFuv0ndUQJkkSNy BVdbHTA5S97hb8P3WPCbUX DgRSO7pZX1 pM2pyGkcuywzbYRjnOjtsq ZdcKfiHZtrORajD915FSGe wLkrCfUpFWu7W6YlUom4TH FsgTctOI9y uCFuGVunJu5wsJgotHtrOR 1tVYNsyxmcl231ApUxo0aj PKAonPOaMPmiNJS3U14cz9 Z4KEZwOLBv FOP6eJX1bF2fuAmrtwjskS VmdDsgdmVydGljYWwtYWxp O985QSXunUqtElTdsSi5I9 KfDdf7SCLf gSbuFB6vtTVaXJilFp7orQ oppKcgWL4fGAPtslhce025 NeNcq9qlFNHzqGTjRGifDC W4S15sg9J5 DBTbGZFlGDO1qFA5vG6ioP lnbjogbGVmdDsgdmVydGlj FRqkSOxiP646CHMlyDyaJo BhdGllbnQg XTjjMRq8K4ZsQpsqsMM+PC 26HOUsWO82fPThpGHai3mp gWr0RoXsJQBgDBS4lGamYA tmh1OiNBJq S30dxJQzb1E2KMTluGjryN EaXrOcrKT6kW7lIDszgpol s8hcesklSiubm5soxt02vO 47G89cRLgy ZHRoPSIzMCUiIHZhbGlnbj 7xyY6jQz7+VXRwcBE0pGG6 nP8mNLPqEdV3BTepY071Ao RvcCIvPjxj j3jiz1nkfNu0IyR4ULBedh BwqSehKOG0t1WtRd92R25w IHdpZHRoPSIyMCUiIHZhbG qwqp7woC9j Ii8+FIRyhEB5jEL4dH1bDk CxNkL9AHiwB791QdUttWXm IgelH19aD7WnbDX+PHRyPj y1HMFeuXni QY6roSOpCVqtBi7kMNR0Gw CvHtNdIThgB8DcOCMawylc cbcwcXC9GGSyGUBbiX35Js 9udDogMTBw nMUJgH5nnqwtb2eajnmySy IgTHPsVPd7TDk5KAEguCau UpRlISL4KyI4LCF2gYWkxB 1hbGlnbjog jZ5tE0DpPGDgyvpsVh96xB 8rNvVeQgX4EUtpNds+Q09S QklOLCBDSEVOTkkgSzwvdG Q+PHRkIHN0 rJzuZUwrNPPnrZ4iOORaI4 g2UwUsYxF2TJmzG3AdIWVy ogudNa16hI0gGnRqNaG6RC ugB8XqrzU1 EKPdqJGzGZntBJB3I27oq0 P2YETgBROsPVS5lOL4gV3q bGlnbjogbGVmdDsgdmVydG ljYWwtYWxp O820AEFghVzoSqQeMsWxRd H2RhV2V9NiEhb1GLCxgUkm VR4izUVbLUynNm8kiBuexG kcAA0dNZTv neizFYLwyZ4xNHMplLEepW oiPC6nKXMhoblpo122VtZi BBY6VZWlqDTlC5DrnU3tRx AjMDAwMDAw Y5ZbjPBiKCauH582BOexEd J7PRNjupIwD1OoQGPgaIiu XvT2j2C0Xa82VoPRGGGzmo wvdGQ+PHRk SPO8pZmlXMpzMTNorG7nTJ UxW4k2IkMzAnQ8PDncX1Re TQEfcqkeEf18zK0wUpAlDm B8ENamN9Jg hwJ0IPRtfJLzKPxnFTG0E2 9oo2B7GOKeHQErFII8vFG2 lE7rfBkzsbxdmNCzdIfjrv VydGljYWwt OCmgA700UBSebAjkDpZgfP FsZTwvdGQ+GPTpOKO8rYgi HTctZHAlxG5zVZLkZ2x2Jq LyOpS4HRcn K3ZcQMYgoeacNa82lM4fUs MrYnG8IJlxW8TxseO7DYEt oBNbASwhKOE4B34gk3W2LD MwMDAwMDA7 bWN5dW3geDgdcwnvrBWnrT gxpkJbuIvgKNadWLnpF773 DIFybMpjLf62kYTahNnfub O0Y1SlYgix dHI+KA96VLQkSD06gBXnwU Ivt5bqrOq3UsFcRGBrTAX1 lXlwDLtzz9MrGUAfM95avH Fud2Y1KCRd cYxwwTZsLrVtbZJ1yJ6fWK tfyyscv8rrgzznRqnjr7cc hq41pJ64E88yLGhtFELeFQ IzMCUiIHZh nFlxdk2hqT2kXx2+PGNvbC V9sLQ2eN5vBrJvIuL7RKaj I385AkFmvVGcQfudn7vjh5 ulyXq9PwEf XUJrbfWueFelULI6d3YjXf 86W21uBAviTRBzARPlXTPm RQWldUohtg3xhI2fZx0+PC 4xy6vntj03 zG47pBT+TBIjCWF8oMcuGV ssNXJayI4fPXtnZfY8FSOh NuHicC77kLIfYOmqZe7nyA xluXrhQA1p UDEymgoou473WeOso3akXF HswRKlZJwhVOW5V28qe7C6 PHQwPPLhNWX3wXC1zD0bqB lnbjogbGVm dDsgdmVydGljYWwtYWxpZ2 49QIRgbDscLsApeKOdT2wk fjYPIE3eGqjtjPE+PHRkIH U5gJyeGKiu VPZqeY3kUNOgB7m3ZsLyQa L1CVmbP3HcwvQ5XIWnmHQz ACHjiMPWvB6ppxopq8cxeg ogIzAwMDAw YPy7VDl8FWCtoDtgTkHbPO L6KyB7AQY4rYAuoN7bpGor rcmnaX5cGxb+RklOOjwvdG Q+PHRkIHN0 zKxvIMzcXZUsnI9yBOAfR7 w3OlYcHmP9EKkjO7VnguW5 OMAmvIIwPCLzyUPTcR1keu jpu4lrelpb YgStATYmOIa3MFm0OKZnpJ uzKgAlZHT2ZsC5LPO7dRDs iM2rrNnamrxiiO8uFcv+TV JOOjwvdGQ+ NIWqEXQ5mVtgZLqwQVSmsR 2gCZNrY6e5DmQaNzT0QCis R8DsjeD4TUQroBVtNVFzeV EPvI1afayt p4lizwpeTuOpGFAuGXr0QV j5KPWjtEwbWqLaGMU8QaE7 ANY7eWDxpB2dfRfgxepceL 9wOyc+UGF5 CBG3EZ22UI42T6AuXkwieZ FibGU+PHRhYmxlIHdpZHRo VQtqFOSbTfAfsWpxGN1uNl 9yZGVyLWNv bGxhcHNlOiBjb (more content not included)... Normal [facility] CBC AND AUTO DIFFon 09-18-19 24 ABSOLUTE BASOPHIL 0.0 X10E9/L Normal 0.0-0.2 [facility] Comment on above: Performed By: #### C BCA, CMP, 3040-3 #### [facility] ([id number]) [address] [place] [address] 20454 ABSOLUTE NEUTROPHIL 3.2 X10E9/L Normal 1.5-6.6 [facility] Comment on above: Performed By: #### C BCA, CMP, 3040-3 #### [facility] ([id number]) [address] [place] [address] 46604 Basophils/100 WBC (Bld) 0.7 % Normal [facility] Comment on above: Performed By: #### Terrie KIRKPATRICK CMP, 3 #### [facility] ([id number]) [address] [place] [address] 68882 Eosinophils (Bld) [#/Vol] 0.1 10*3/uL Normal 0.0-0.4 [facility] Comment on above: Performed By: #### Terrie KIRKPATRICK [facility], 3039-06 #### [facility] ([id number]) [address] [place] [address] 93145 Eosinophils/100 WBC (Bld) 2.4 % Normal [facility] Comment on above: Performed By: #### Terrie KIRKPATRICK CMP, 3039-06 #### [facility] ([id number]) [address] [place] [address] 09777 Erythrocyte distribution width (RBC) [Ratio] 13.6 % Normal 11.5-15.0 [facility] Comment on above: Performed By: #### Terrie KIRKPATRICK CMP, 3039-06 #### [facility] ([id number]) [address] [place] [address] 64263 Hematocrit (Bld) [Volume fraction] 34.5 % Low 35-47 [facility] Comment on above: Performed By: #### Terrie KIRKPATRICK CMP, 3039-06 #### [facility] ([id number]) [address] [place] [address] 81088 Hemoglobin (Bld) [Mass/Vol] 11.6 g/dL Low 11.7-15.5 [facility] Comment on above: Performed By: #### Terrie KIRKPATRICK CMP, 3 #### [facility] ([id number]) [address] [place] [address] 03243 Lymphocytes (Bld) [#/Vol] 1.9 10*3/uL Normal 1.0-3.5 [facility] Comment on above: Performed By: #### Terrie KIRKPATRICK CMP, 3 #### [facility] ([id number]) [address] [place] [address] 77904 Lymphocytes/100 WBC (Bld) 30.9 % Normal [facility] Comment on above: Performed By: #### Terrie KIRKPATRICK CMP, 3039-06 #### [facility] ([id number]) [address] [place] [address] 58137 MCH (RBC) [Entitic mass] 33.1 pg Normal 27-34 [facility] Comment on above: Performed By: #### Terrie KIRKPATRICK CMP, 3039-06 #### [facility] ([id number]) [address] [place] [address] 92391 MCHC (RBC) [Mass/Vol] 33.6 g/dL Normal 32-36 [facility] Comment on above: Performed By: #### Terrie KIRKPATRICK CMP, 3039-06 #### [facility] ([id number]) [address] [place] [address] 32308 MCV (RBC) [Entitic vol] 99 fL Normal 80-100 [facility] Comment on above: Performed By: #### Terrie KIRKPATRICK CMP, 3039-06 #### [facility] ([id number]) [address] [place] [address] 32709 Monocytes (Bld) [#/Vol] 0.9 10*3/uL Normal 0-0.9 [facility] Comment on above: Performed By: #### Terrie KIRKPATRICK CMP, 3039-06 #### [facility] ([id number]) [address] [place] [address] 49461 Monocytes/100 WBC (Bld) 13.8 % Normal [facility] Comment on above: Performed By: #### Terrie KIRKPATRICK CMP, 3 #### [facility] ([id number]) [address] [place] [address] 06179 Neutrophils/100 WBC (Bld) 52.2 % Normal [facility] Comment on above: Performed By: #### Terrie KIRKPATRICK CMP, 0-3 #### [facility] ([id number]) [address] [place] [address] 70244 Platelet mean volume (Bld) [Entitic vol] 9.1 fL Normal 7-12 [facility] Comment on above: Performed By: #### Terrie KIRKPATRICK CMP, 3039-3 #### [facility] ([id number]) [address] [place] [address] 03196 Platelets (Bld) [#/Vol] 291 10*3/uL Normal 150-450 [facility] Comment on above: Performed By: #### Terrie KIRKPATRICK CMP, 3039-3 #### [facility] ([id number]) [address] [place] [address] 83489 RBC COUNT 3.50 X10E12/L Low 3.80-5.20 [facility] Comment on above: Performed By: #### Terrie KIRKPATRICK CMP, 3 #### [facility] ([id number]) [address] [place] [address] 20517 WBC (Bld) [#/Vol] 6.2 10*3/uL Normal 4.0-11.0 [facility] Comment on above: Performed By: #### Terrie KIRKPATRICK CMP, 3039-3 #### [facility] ([id number]) [address] [place] [address] 50093 COMPREHENSIVE METABOLIC PANE Hema 09-18-2023 Albumin [Mass/Vol] 3.8 g/dL Normal 3.2-5.3 [facility] Comment on above: Performed By: #### Terrie KIRKPATRICK CMP, 3039-3 #### [facility] ([id number]) [address] [place] [address] 85818 ALP [Catalytic activity/Vol] 64 U/L Normal 39-130 [facility] Comment on above: Performed By: #### C KEYSHAWN KIRKPATRICK, 3039-3 #### [facility] ([id number]) [address] [place] [address] 58322 ALT [Catalytic activity/Vol] 18 U/L Normal 0-31 [facility] Comment on above: Performed By: #### Terrie KIRKPATRICK CMP, 3039-3 #### [facility] ([id number]) [address] [place] [address] 44915 Anion gap [Moles/Vol] 7 mmol/L Normal 5-15 [facility] Comment on above: Performed By: #### Terrie KIRKPATRICK CMP, 3039-3 #### [facility] ([id number]) [address] [place] [address] 63667 AST [Catalytic activity/Vol] 19 U/L Normal 0-41 [facility] Comment on above: Performed By: #### Terrie KIRKPATRICK CMP, 3039-3 #### [facility] ([id number]) [address] [place] [address] 55209 Bilirubin [Mass/Vol] 0.6 mg/dL Normal 0.3-1.2 [facility] Comment on above: Performed By: #### Terrie KIRKPATRICK CMP, 3039-3 #### [facility] ([id number]) [address] [place] [address] 11880 Calcium [Mass/Vol] 8.4 mg/dL Low 8.5-10.5 [facility] Comment on above: Performed By: #### Terrie KIRKPATRICK CMP, 3039-3 #### [facility] ([id number]) [address] [place] [address] 32379 Chloride [Moles/Vol] 105 mmol/L Normal 98-109 [facility] Comment on above: Performed By: #### C KEYSHAWN KIRKPATRICK, 3 #### [facility] ([id number]) [address] [place] [address] 70339 CO2 [Moles/Vol] 26 mmol/L Normal 22-32 [facility] Comment on above: Performed By: #### C KEYSHAWN KIRKPATRICK, 3 #### [facility] ([id number]) [address] [place] [address] 35956 Creatinine [Mass/Vol] 1.03 mg/dL High 0.40-1.00 [facility] Comment on above: Result Comment: METH OD TRACEABLE TO IDMS STANDARD Performed By: #### C KEYSHAWN KIRKPATRICK, 3039-06 #### [facility] ([id number]) [address] [place] [address] 92622 GFR/1.73 sq M.predicted among non-blacks MDRD (S/P/Bld) [Vol rate/Area] 65 mL/min/{1.73_m2} Normal >59 [facility] Comment on above: Result Comment: Reported eGFR is based on the CKD-EPI 2020 equation that does not use a race coefficient. Performed By: #### C KEYSHAWN KIRKPATRICK, 3039-06 #### [facility] ([id number]) [address] [place] [address] 25351 Glucose [Mass/Vol] 99 mg/dL Normal 65-99 [facility] Comment on above: Performed By: #### C KEYSHAWN KIRKPATRICK, 3039-06 #### [facility] ([id number]) [address] [place] [address] 45231 Potassium [Moles/Vol] 3.4 mmol/L Low 3.5-5.0 [facility] Comment on above: Performed By: #### C KEYSHAWN KIRKPATRICK, 3 #### [facility] ([id number]) [address] [place] [address] 15310 Protein [Mass/Vol] 6.9 g/dL Normal 6.0-8.0 [facility] Comment on above: Performed By: #### C KEYSHAWN KIRKPATRICK, 3040-3 #### [facility] ([id number]) [address] [place] [address] 94611 Sodium [Moles/Vol] 138 mmol/L Normal 134-146 [facility] Comment on above: Performed By: #### C KEYSHAWN KIRKPATRICK, 3040-3 #### [facility] ([id number]) [address] [place] [address] 67087 Urea nitrogen [Mass/Vol] 10 mg/dL Normal 5-23 [facility] Comment on above: Performed By: #### C KEYSHAWN KIRKPATRICK, 3040-3 #### [facility] ([id number]) [address] [place] [address] BRAIN WO CONTon CT BRAIN WO [...] Johny Frances on 09/18/2023 9:21 PM Normal [facility] LIPASEon 09-18-2023 Lipase [Catalytic activity/Vol] 36 U/L Normal 17-40 [facility] Comment on above: Performed By: #### C KEYSHAWN KIRKPATRICK, 3040-3 #### [facility] ([id number]) [address] [place] [address] [place] [address] URN MACROSCOPIC NURon 2023 BILIRUBIN SHADY Negative Normal NEG [facility] Comment on above: Performed By: #### N UM #### [facility] ([id number]) [address] [place] [address] [place] [address] BLOOD/HGB SHADY Trace Abnormal NEG [facility] Comment on above: Performed By: #### N UM #### [facility] ([id number]) [address] [place] [address] [place] [address] GLUCOSE SHADY Negative Normal NEG [facility] Comment on above: Performed By: #### N UM #### [facility] ([id number]) [address] [place] [address] [place] [address] KETONES SHADY Negative Normal NEG [facility] Comment on above: Performed By: #### N UM #### [facility] ([id number]) [address] [place] [address] [place] [address] LEUKOCYTE ESTERASE SHADY Negative Normal NEG [facility] Comment on above: Performed By: #### N UM #### [facility] ([id number]) [address] [place] [address] [place] [address] NITRITE SHADY Negative Normal NEG [facility] Comment on above: Performed By: #### N UM #### [facility] ([id number]) [address] [place] [address] [place] [address] PH SHADY 6.0 Normal 5.0-8.5 [facility] Comment on above: Performed By: #### N UM #### [facility] ([id number]) [address] [place] [address] [place] [address] PROTEIN SHADY Negative Normal NEG [facility] Comment on above: Performed By: #### N UM #### [facility] ([id number]) [address] [facility], [place] [address] SPECIFIC GRAVITY SHADY 1.010 Normal 1.003-1.035 [facility] Comment on above: Performed By: #### N UM #### [facility] ([id number]) [address] [facility], [place] [address] UROBILINOGEN SHADY 0.2 eu/dL Normal <1.1 [facility] Comment on above: Performed By: #### N UM #### [facility] ([id number]) [address] [facility], [place] [address] Consent for Treatmenton 09-03 Consent for Treatment [id number]#1.0 0TIFF Normal [facility] Office/Cl inic Noteon [...] with voice recognition artificial intelligence software, specifically [employer], [employer] and or [place]. Substitutions may have occurred due to the [...] History Ca (more content not included)... Normal [facility] Comment on above: Result Comment: Elec tronically Signed By: Deepak MOSES, Roosevelt Remy\.br\Date and Time Signed: 09/13/23 13:41 EDT Insurance Correspondenceon 0 09-13-2023 Insurance Correspondence [id number]#1.0 0TIFF [facility] Outside Labson 09-13-2023 Outside Labs [id number]#1. 00TIFF [facility] Outside Recordson 09-13-2023 Outside Records [id number]#1. 00TIFF [facility] Outside Records [id number]#1. 00TIFF [facility] Physician Orderon 09-13-2023 Physician Order [id number]#1. 00TIFF [facility] RAD - CT Reporton 08-31-2023 RAD - CT Report [id number]#1.00 TIFF Normal [facility] Lab Reportson 08-17-2023 Lab Reports [id number]#1.0 0TIFF Normal [facility] Urine Cytology ([facility])on 0 08-17-2023 Microscopic exam Cytology (U) [Interp] Diagnosis Info Invalid Interpretation Code [facility] Comment on above: Result Comment: A:Ur ine,Urine:Voided Interpretation - MicroScopic Description - Adequacy - Gross Description Site ID:A color Light Yellow fixative Alcohol Specimen designated Urine received in alcohol preservative and labeled with the patient?s name, consists of 60ml clear light yellow fluid. Electronically signed by : on: 08/17/2023 14:12:20 Performed By: #### 1 [id number] ####[facility] [id number] [place] [address] Lab Reportson 08-11-2023 Lab Reports [id number]#1.00 TIFF Normal [facility] Physician Referralon 024 Physician Referral [id number]#1.0 0TIFF Normal [facility] RAD - MISCon 08-11-2023 RAD - MISC [id number]#1.0 0TIFF Normal [facility] RAD - MISC [id number]#1.0 0TIFF Normal [facility] RAD - Ultrasound Reporton RAD - Ultrasound Report [id number]#1.0 0TIFF Normal [facility] RAD - Ultrasound Report [id number]#1.0 0TIFF Normal [facility] Screenson 08-11-2023 Screens [id number]#1.0 0TIFF Normal [facility] Ambulatory Visit Summaryon 0 08-10-2023 Ambulatory Visit [...] ROLLE PA-C, URL When: Where: [address] [place] [address] [id number] Medications What How Much When Instructions Unchanged [...] make many (more content not included)... Normal [facility] Patient Educationon 08-10-19 24 Patient Education [...] require a prescription. You can also purchase [id number] medicines. Medicines may have nicotine in them [...] and encouragement. Call telephone quitlines, such as 5-005-DXXD-NOW, reach out to support groups, or work [...] quit smoki (more content not included)... Normal [facility] Urine Cytology ([facility])on 0 08-10-2023 Method of Extraction Voided Normal [facility] Comment on above: Performed By: #### 1 [id number] ####[facility] [id number] [facility] [place] [address] Number of Jars 1 Invalid Interpretation Code [facility] Comment on above: Performed By: #### 1 [id number] ####[facility] [id number] [facility] [place] [address] Specimen Urine Normal [facility] Comment on above: Performed By: #### 1 [id number] ####[facility] [id number] [place] [address] Type of Service Technical Only Normal [facility] Comment on above: Performed By: #### 1 [id number] ####[facility] [id number] [place] [address] Complete Blood Count Auto Di ffon 06-09-2023 Basophils (Bld) [#/Vol] 0.0 10*3/uL Normal 0.0-0.2 [facility] Comment on above: Order Comment: Reaso n for Exam Urinary frequency;Medication management;Anxiety;Microscopic Result Comment: PERF ORMED BY: [facility] [address] [place] [address] PATHOLOGIST SPORTS PHYSICIAN PALOMO WESLEY M.D. Performed By: #### C BC, [id number], THYROID SC, URMACRERAT, FE and TIBC, LIPID, SHAMA, LDLD, CMP ####[facility] [address]#### TOXASSURE, HIV SCREEN ####[facility] , Basophils/100 WBC (Bld) 0.3 % Normal . [facility] Comment on above: Order Comment: Reaso n for Exam Urinary frequency;Medication management;Anxiety;Microscopic Performed By: #### C BC, [id number], THYROID SC, URMACRERAT, FE and TIBC, LIPID, SHAMA, LDLD, CMP ####[address]#### TOXASSURE, HIV SCREEN ####[facility] , Eosinophils (Bld) [#/Vol] 0.1 10*3/uL Normal 0.0-0.45 [facility] Comment on above: Order Comment: Reaso n for Exam Urinary frequency;Medication management;Anxiety;Microscopic Performed By: #### C BC, [id number], THYROID SC, URMACRERAT, FE and TIBC, LIPID, SHAMA, LDLD, CMP ####[address]#### TOXASSURE, HIV SCREEN ####[facility] , Eosinophils/100 WBC (Bld) 1.7 % Normal . [facility] Comment on above: Order Comment: Reaso n for Exam Urinary frequency;Medication management;Anxiety;Microscopic Performed By: #### C BC, [id number], THYROID SC, URMACRERAT, FE and TIBC, LIPID, SHAMA, LDLD, CMP ####[place] [address] [place]#### TOXASSURE, HIV SCREEN ####[facility] , Erythrocyte distribution width (RBC) [Ratio] 13.2 % Normal 11.9-15.3 [facility] Comment on above: Order Comment: Reaso n for Exam Urinary frequency;Medication management;Anxiety;Microscopic Performed By: #### C BC, [id number], THYROID SC, URMACRERAT, FE and TIBC, LIPID, SHAMA, LDLD, CMP ####[place] [address] [place]#### TOXASSURE, HIV SCREEN ####[facility] , Hematocrit (Bld) [Volume fraction] 41.9 % Normal 34.0-46.4 [facility] Comment on above: Order Comment: Reaso n for Exam Urinary frequency;Medication management;Anxiety;Microscopic Performed By: #### C BC, [id number], THYROID SC, URMACRERAT, FE and TIBC, LIPID, SHAMA, LDLD, CMP ####[address]#### TOXASSURE, HIV SCREEN ####[facility] , Hemoglobin (Bld) [Mass/Vol] 14.0 g/dL Normal 11.8-15.4 [facility] Comment on above: Order Comment: Reaso n for Exam Urinary frequency;Medication management;Anxiety;Microscopic Performed By: #### C BC, [id number], THYROID SC, URMACRERAT, FE and TIBC, LIPID, SHAMA, LDLD, CMP ####[address]#### TOXASSURE, HIV SCREEN ####[facility] , Lymphocytes (Bld) [#/Vol] 2.2 10*3/uL Normal 1.00-4.8 [facility] Comment on above: Order Comment: Reaso n for Exam Urinary frequency;Medication management;Anxiety;Microscopic Performed By: #### C BC, [id number], THYROID SC, URMACRERAT, FE and TIBC, LIPID, SHAMA, LDLD, CMP ####[place] [address] [place]#### TOXASSURE, HIV SCREEN ####[facility] , Lymphocytes/100 WBC (Bld) 30.2 % Normal . [facility] Comment on above: Order Comment: Reaso n for Exam Urinary frequency;Medication management;Anxiety;Microscopic Performed By: #### C BC, [id number], THYROID SC, URMACRERAT, FE and TIBC, LIPID, SHAMA, LDLD, CMP ####[place] [id number] [address]#### TOXASSURE, HIV SCREEN ####[facility] , MCH (RBC) [Entitic mass] 32.8 pg Normal 24.7-34.3 [facility] Comment on above: Order Comment: Reaso n for Exam Urinary frequency;Medication management;Anxiety;Microscopic Performed By: #### C BC, [id number], THYROID SC, URMACRERAT, FE and TIBC, LIPID, SHAMA, LDLD, CMP ####[address]#### TOXASSURE, HIV SCREEN ####[facility] , MCV (RBC) [Entitic vol] 98.5 fL Normal 80-100 [facility] Comment on above: Order Comment: Reaso n for Exam Urinary frequency;Medication management;Anxiety;Microscopic Performed By: #### C BC, [id number], THYROID SC, URMACRERAT, FE and TIBC, LIPID, SHAMA, LDLD, CMP ####[address]#### TOXASSURE, HIV SCREEN ####[facility] , Mean Corpuscular HGB Conc 33.3 g/dL Normal 32.0-35.0 [facility] Comment on above: Order Comment: Reaso n for Exam Urinary frequency;Medication management;Anxiety;Microscopic Performed By: #### C BC, [id number], THYROID SC, URMACRERAT, FE and TIBC, LIPID, SHAMA, LDLD, CMP ####[address]#### TOXASSURE, HIV SCREEN ####[facility] , Monocytes (Bld) [#/Vol] 0.8 10*3/uL Normal 0.0-0.8 [facility] Comment on above: Order Comment: Reaso n for Exam Urinary frequency;Medication management;Anxiety;Microscopic Performed By: #### C BC, [id number], THYROID SC, URMACRERAT, FE and TIBC, LIPID, SHAMA, LDLD, CMP ####[place] [id number] [address]#### TOXASSURE, HIV SCREEN ####[facility] , Monocytes/100 WBC (Bld) 10.9 % Normal . [facility] Comment on above: Order Comment: Reaso n for Exam Urinary frequency;Medication management;Anxiety;Microscopic Performed By: #### C BC, [id number], THYROID SC, URMACRERAT, FE and TIBC, LIPID, SHAMA, LDLD, CMP ####[address]#### TOXASSURE, HIV SCREEN ####[facility] , Neutrophils (Bld) [#/Vol] 4.1 10*3/uL Normal 1.8-7.7 [facility] Comment on above: Order Comment: Reaso n for Exam Urinary frequency;Medication management;Anxiety;Microscopic Performed By: #### C BC, [id number], THYROID SC, URMACRERAT, FE and TIBC, LIPID, SHAMA, LDLD, CMP ####[address]#### TOXASSURE, HIV SCREEN ####[facility] , Neutrophils/100 WBC (Bld) 56.9 % Normal . [facility] Comment on above: Order Comment: Reaso n for Exam Urinary frequency;Medication management;Anxiety;Microscopic Performed By: #### C BC, [id number], THYROID SC, URMACRERAT, FE and TIBC, LIPID, SHAMA, LDLD, CMP ####[address]#### TOXASSURE, HIV SCREEN ####[facility] , NRBC% 0.1 /100{WBC} Normal 0-0.5 [facility] Comment on above: Order Comment: Reaso n for Exam Urinary frequency;Medication management;Anxiety;Microscopic Performed By: #### C BC, [id number], THYROID SC, URMACRERAT, FE and TIBC, LIPID, SHAMA, LDLD, CMP ####[place] [id number] [address]#### TOXASSURE, HIV SCREEN ####[facility] , Platelet mean volume (Bld) [Entitic vol] 9.0 fL Normal 6.3-10.7 [facility] Comment on above: Order Comment: Reaso n for Exam Urinary frequency;Medication management;Anxiety;Microscopic Performed By: #### C BC, [id number], THYROID SC, URMACRERAT, FE and TIBC, LIPID, SHAMA, LDLD, CMP ####[address]#### TOXASSURE, HIV SCREEN ####[facility] , Platelets (Bld) [#/Vol] 314 10*3/uL Normal 150-450 [facility] Comment on above: Order Comment: Reaso n for Exam Urinary frequency;Medication management;Anxiety;Microscopic Performed By: #### C BC, [id number], THYROID SC, URMACRERAT, FE and TIBC, LIPID, SHAMA, LDLD, CMP ####[address]#### TOXASSURE, HIV SCREEN ####[facility] , RBC (Bld) [#/Vol] 4.26 10*6/uL Normal 3.60-5.00 [facility] Comment on above: Order Comment: Reaso n for Exam Urinary frequency;Medication management;Anxiety;Microscopic Performed By: #### C BC, [id number], THYROID SC, URMACRERAT, FE and TIBC, LIPID, SHAMA, LDLD, CMP ####[address]#### TOXASSURE, HIV SCREEN ####[facility] , WBC (Bld) [#/Vol] 7.2 10*3/uL Normal 3.8-11.6 [facility] Comment on above: Order Comment: Reaso n for Exam Urinary frequency;Medication management;Anxiety;Microscopic Performed By: #### C BC, [id number], THYROID SC, URMACRERAT, FE and TIBC, LIPID, SHAMA, LDLD, CMP ####[address]#### TOXASSURE, HIV SCREEN ####[facility] , Comprehensive Metabolic Pane hema 06-09-2023 Albumin [Mass/Vol] 4.2 g/dL Normal 3.5-5.7 [facility] Comment on above: Order Comment: Reaso n for Exam Urinary frequency;Medication management;Anxiety;Microscopic Reason for Exam Microscopic hematuria;Low iron Reason for Exam Bipolar affective disorder, currently depressed, moderate Reason for Exam Vitamin D deficiency Performed By: #### C BC, [id number], THYROID SC, URMACRERAT, FE and TIBC, LIPID, SHAMA, LDLD, CMP ####[address]#### TOXASSURE, HIV SCREEN ####[facility] , Albumin/Globulin [Mass ratio] 1.4 {ratio} Normal [facility] Comment on above: Order Comment: Reaso n for Exam Urinary frequency;Medication management;Anxiety;Microscopic Reason for Exam Microscopic hematuria;Low iron Reason for Exam Bipolar affective disorder, currently depressed, moderate Reason for Exam Vitamin D deficiency Performed By: #### C BC, [id number], THYROID SC, URMACRERAT, FE and TIBC, LIPID, SHAMA, LDLD, CMP ####[address]#### TOXASSURE, HIV SCREEN ####[facility] , ALP [Catalytic activity/Vol] 87 U/L Normal 34-104 [facility] Comment on above: Order Comment: Reaso n for Exam Urinary frequency;Medication management;Anxiety;Microscopic Reason for Exam Microscopic hematuria;Low iron Reason for Exam Bipolar affective disorder, currently depressed, moderate Reason for Exam Vitamin D deficiency Performed By: #### C BC, [id number], THYROID SC, URMACRERAT, FE and TIBC, LIPID, SHAMA, LDLD, CMP ####[address]#### TOXASSURE, HIV SCREEN ####[facility] , ALT [Catalytic activity/Vol] 10 U/L Normal 7-52 [facility] Comment on above: Order Comment: Reaso n for Exam Urinary frequency;Medication management;Anxiety;Microscopic Reason for Exam Microscopic hematuria;Low iron Reason for Exam Bipolar affective disorder, currently depressed, moderate Reason for Exam Vitamin D deficiency Performed By: #### C BC, [id number], THYROID SC, URMACRERAT, FE and TIBC, LIPID, SHAMA, LDLD, CMP ####[address]#### TOXASSURE, HIV SCREEN ####[facility] , Anion gap [Moles/Vol] 12.9 mmol/L Normal 6.0-15.[address] [facility] Comment on above: Order Comment: Reaso n for Exam Urinary frequency;Medication management;Anxiety;Microscopic Reason for Exam Microscopic hematuria;Low iron Reason for Exam Bipolar affective disorder, currently depressed, moderate Reason for Exam Vitamin D deficiency Performed By: #### C BC, [id number], THYROID SC, URMACRERAT, FE and TIBC, LIPID, SHAMA, LDLD, CMP ####[address]#### TOXASSURE, HIV SCREEN ####[facility] , AST [Catalytic activity/Vol] 12 U/L Low 13-39 [facility] Comment on above: Order Comment: Reaso n for Exam Urinary frequency;Medication management;Anxiety;Microscopic Reason for Exam Microscopic hematuria;Low iron Reason for Exam Bipolar affective disorder, currently depressed, moderate Reason for Exam Vitamin D deficiency Performed By: #### C BC, [id number], THYROID SC, URMACRERAT, FE and TIBC, LIPID, SHAMA, LDLD, CMP ####[address]#### TOXASSURE, HIV SCREEN ####[facility] , Bilirubin [Mass/Vol] 0.2 mg/dL Low 0.3-1.0 [facility] Comment on above: Order Comment: Reaso n for Exam Urinary frequency;Medication management;Anxiety;Microscopic Reason for Exam Microscopic hematuria;Low iron Reason for Exam Bipolar affective disorder, currently depressed, moderate Reason for Exam Vitamin D deficiency Performed By: #### C BC, [id number], THYROID SC, URMACRERAT, FE and TIBC, LIPID, SHAMA, LDLD, CMP ####[place] [id number] [address]#### TOXASSURE, HIV SCREEN ####[facility] , Calcium [Mass/Vol] 9.5 mg/dL Normal 8.6-10.3 [facility] Comment on above: Order Comment: Reaso n for Exam Urinary frequency;Medication management;Anxiety;Microscopic Reason for Exam Microscopic hematuria;Low iron Reason for Exam Bipolar affective disorder, currently depressed, moderate Reason for Exam Vitamin D deficiency Performed By: #### C BC, [id number], THYROID SC, URMACRERAT, FE and TIBC, LIPID, SHAMA, LDLD, CMP ####[address]#### TOXASSURE, HIV SCREEN ####[facility] , Chloride [Moles/Vol] 105 mmol/L Normal 98-107 [facility] Comment on above: Order Comment: Reaso n for Exam Urinary frequency;Medication management;Anxiety;Microscopic Reason for Exam Microscopic hematuria;Low iron Reason for Exam Bipolar affective disorder, currently depressed, moderate Reason for Exam Vitamin D deficiency Performed By: #### C BC, [id number], THYROID SC, URMACRERAT, FE and TIBC, LIPID, SHAMA, LDLD, CMP ####[address]#### TOXASSURE, HIV SCREEN ####[facility] , CO2 [Moles/Vol] 25.0 mmol/L Normal 21.0-31.0 [facility] Comment on above: Order Comment: Reaso n for Exam Urinary frequency;Medication management;Anxiety;Microscopic Reason for Exam Microscopic hematuria;Low iron Reason for Exam Bipolar affective disorder, currently depressed, moderate Reason for Exam Vitamin D deficiency Performed By: #### C BC, [id number], THYROID SC, URMACRERAT, FE and TIBC, LIPID, SHAMA, LDLD, CMP ####[address]#### TOXASSURE, HIV SCREEN ####[facility] , Creatinine [Mass/Vol] 0.63 mg/dL Normal 0.60-1.20 [facility] Comment on above: Order Comment: Reaso n for Exam Urinary frequency;Medication management;Anxiety;Microscopic Reason for Exam Microscopic hematuria;Low iron Reason for Exam Bipolar affective disorder, currently depressed, moderate Reason for Exam Vitamin D deficiency Performed By: #### C BC, [id number], THYROID SC, URMACRERAT, FE and TIBC, LIPID, SHAMA, LDLD, CMP ####[address]#### TOXASSURE, HIV SCREEN ####[facility] , GFR/1.73 sq M.predicted MDRD (S/P/Bld) [Vol rate/Area] mL/min/{1.73_m2} Normal [facility] Comment on above: Order Comment: Reaso n for Exam Urinary frequency;Medication management;Anxiety;Microscopic Reason for Exam Microscopic hematuria;Low iron Reason for Exam Bipolar affective disorder, currently depressed, moderate Reason for Exam Vitamin D deficiency Performed By: #### C BC, [id number], THYROID SC, URMACRERAT, FE and TIBC, LIPID, SHAMA, LDLD, CMP ####[address]#### TOXASSURE, HIV SCREEN ####[facility] , Globulin (S) [Mass/Vol] 2.9 g/dL Normal [facility] Comment on above: Order Comment: Reaso n for Exam Urinary frequency;Medication management;Anxiety;Microscopic Reason for Exam Microscopic hematuria;Low iron Reason for Exam Bipolar affective disorder, currently depressed, moderate Reason for Exam Vitamin D deficiency Performed By: #### C BC, [id number], THYROID SC, URMACRERAT, FE and TIBC, LIPID, SHAMA, LDLD, CMP ####[place] [id number] [address]#### TOXASSURE, HIV SCREEN ####[facility] , Glucose [Mass/Vol] 90 mg/dL Normal 70-100 [facility] Comment on above: Order Comment: Reaso n for Exam Urinary frequency;Medication management;Anxiety;Microscopic Reason for Exam Microscopic hematuria;Low iron Reason for Exam Bipolar affective disorder, currently depressed, moderate Reason for Exam Vitamin D deficiency Result Comment: [facility] Glucose Reference Range is dependent on time and content of last meal. Glucose of more than 200 mg/dL in a nonstressed, ambulatory subject supports the diagnosis of Diabetes Mellitus. ADA recommended reference range Performed By: #### C BC, [id number], THYROID SC, URMACRERAT, FE and TIBC, LIPID, SHAMA, LDLD, CMP ####[place] [id number] [address]#### TOXASSURE, HIV SCREEN ####[facility] , Potassium [Moles/Vol] 3.9 mmol/L Normal 3.5-5.1 [facility] Comment on above: Order Comment: Reaso n for Exam Urinary frequency;Medication management;Anxiety;Microscopic Reason for Exam Microscopic hematuria;Low iron Reason for Exam Bipolar affective disorder, currently depressed, moderate Reason for Exam Vitamin D deficiency Performed By: #### C BC, [id number], THYROID SC, URMACRERAT, FE and TIBC, LIPID, SHAMA, LDLD, CMP ####[place] [id number] [address]#### TOXASSURE, HIV SCREEN ####[facility] , Protein [Mass/Vol] 7.1 g/dL Normal 6.4-8.9 [facility] Comment on above: Order Comment: Reaso n for Exam Urinary frequency;Medication management;Anxiety;Microscopic Reason for Exam Microscopic hematuria;Low iron Reason for Exam Bipolar affective disorder, currently depressed, moderate Reason for Exam Vitamin D deficiency Performed By: #### C BC, [id number], THYROID SC, URMACRERAT, FE and TIBC, LIPID, SHAMA, LDLD, CMP ####[place] [id number] [address]#### TOXASSURE, HIV SCREEN ####[facility] , Sodium [Moles/Vol] 139 mmol/L Normal 136-145 [facility] Comment on above: Order Comment: Reaso n for Exam Urinary frequency;Medication management;Anxiety;Microscopic Reason for Exam Microscopic hematuria;Low iron Reason for Exam Bipolar affective disorder, currently depressed, moderate Reason for Exam Vitamin D deficiency Performed By: #### C BC, [id number], THYROID SC, URMACRERAT, FE and TIBC, LIPID, SHAMA, LDLD, CMP ####[place] [id number] [address]#### TOXASSURE, HIV SCREEN ####[facility] , Urea nitrogen [Mass/Vol] 14 mg/dL Normal 7-25 [facility] Comment on above: Order Comment: Reaso n for Exam Urinary frequency;Medication management;Anxiety;Microscopic Reason for Exam Microscopic hematuria;Low iron Reason for Exam Bipolar affective disorder, currently depressed, moderate Reason for Exam Vitamin D deficiency Performed By: #### C BC, [id number], THYROID SC, URMACRERAT, FE and TIBC, LIPID, SHAMA, LDLD, CMP ####[address]#### TOXASSURE, HIV SCREEN ####[facility] , Ferritinon 06-09-2023 Ferritin [Mass/Vol] 78.9 ng/mL Normal 11.0-306.8 [facility] Comment on above: Order Comment: Reaso n for Exam Urinary frequency;Medication management;Anxiety;Microscopic Reason for Exam Microscopic hematuria;Low iron Reason for Exam Bipolar affective disorder, currently depressed, moderate Reason for Exam Vitamin D deficiency Performed By: #### C BC, [id number], THYROID SC, URMACRERAT, FE and TIBC, LIPID, SHAMA, LDLD, CMP ####[place] [id number] [address]#### TOXASSURE, HIV SCREEN ####[facility] , HIV 1/O/2 Antigen/Antibodyon 06-09-2023 HIV Screen 4th Generation Non-Reactive Normal Non Reactive [facility] Comment on above: Order Comment: Reaso n for Exam Polysubstance abuse Result Comment: HIV Negative HIV-1/HIV-2 antibodies and HIV-1 p24 antigen were NOT detected. There is no laboratory evidence of HIV infection. Performed at: [address] [id number] [place] Helper: Kurtis Gallegos PhD, Phone: [phone] PERFORMED BY: [place] [address] PATHOLOGIST SPORTS PHYSICIAN PALOMO WESLEY M.D. Performed By: #### C BC, [id number], THYROID SC, URMACRERAT, FE and TIBC, LIPID, SHAMA, LDLD, CMP ####[address]#### TOXASSURE, HIV SCREEN ####[facility] , Iron and TIBC Profileon % Iron Saturation 22.1 % Normal 20-50 [facility] Comment on above: Order Comment: Reaso n for Exam Urinary frequency;Medication management;Anxiety;Microscopic Reason for Exam Microscopic hematuria;Low iron Reason for Exam Bipolar affective disorder, currently depressed, moderate Reason for Exam Vitamin D deficiency Performed By: #### C BC, [id number], THYROID SC, URMACRERAT, FE and TIBC, LIPID, SHAMA, LDLD, CMP ####[address]#### TOXASSURE, HIV SCREEN ####[facility] , Iron [Mass/Vol] 93 ug/dL Normal 50-[address] [facility] Comment on above: Order Comment: Reaso n for Exam Urinary frequency;Medication management;Anxiety;Microscopic Reason for Exam Microscopic hematuria;Low iron Reason for Exam Bipolar affective disorder, currently depressed, moderate Reason for Exam Vitamin D deficiency Performed By: #### C BC, [id number], THYROID SC, URMACRERAT, FE and TIBC, LIPID, SHAMA, LDLD, CMP ####[place] [id number] [address]#### TOXASSURE, HIV SCREEN ####[facility] , Total Iron Binding Capacity 420 ug/dL Normal 255-450 [facility] Comment on above: Order Comment: Reaso n for Exam Urinary frequency;Medication management;Anxiety;Microscopic Reason for Exam Microscopic hematuria;Low iron Reason for Exam Bipolar affective disorder, currently depressed, moderate Reason for Exam Vitamin D deficiency Performed By: #### C BC, [id number], THYROID SC, URMACRERAT, FE and TIBC, LIPID, SHAMA, LDLD, CMP ####[address]#### TOXASSURE, HIV SCREEN ####[facility] , Transferrin [Mass/Vol] 300 mg/dL Normal 203-[address] [facility] Comment on above: Order Comment: Reaso n for Exam Urinary frequency;Medication management;Anxiety;Microscopic Reason for Exam Microscopic hematuria;Low iron Reason for Exam Bipolar affective disorder, currently depressed, moderate Reason for Exam Vitamin D deficiency Performed By: #### C BC, [id number], THYROID SC, URMACRERAT, FE and TIBC, LIPID, SHAMA, LDLD, CMP ####[place] [id number] [facility]#### TOXASSURE, HIV SCREEN ####[facility] , LDL Cholesterol Measuredon 0 06-09-2023 LDL Cholesterol Measured 122 mg/dL High 0-100 [facility] Comment on above: Order [...] Very high Performed By: #### C BC, [id number], THYROID SC, URMACRERAT, FE and TIBC, LIPID, SHAMA, LDLD, CMP ####[place] [id number] [address]#### TOXASSURE, HIV SCREEN ####[facility] , Lipid Panelon 06-09-2023 Cholesterol [Mass/Vol] 216 mg/dL High 140-[address] [facility] Comment on above: Order Comment: Reaso n for Exam Urinary frequency;Medication management;Anxiety;Microscopic Reason for Exam Microscopic hematuria;Low iron Reason for Exam Bipolar affective disorder, currently depressed, moderate Reason for Exam Vitamin D deficiency Result Comment: Chol less than 200 mg/dl low risk Chol 201-239 mg/dl borderline risk Chol 240 mg/dl and greater high risk Performed By: #### C BC, [id number], THYROID SC, URMACRERAT, FE and TIBC, LIPID, SHAMA, LDLD, CMP ####[address]#### TOXASSURE, HIV SCREEN ####[facility] , Cholesterol in HDL [Mass/Vol] 69 mg/dL Normal 23-92 [facility] Comment on above: Order Comment: Reaso n for Exam Urinary frequency;Medication management;Anxiety;Microscopic Reason for Exam Microscopic hematuria;Low iron Reason for Exam Bipolar affective disorder, currently depressed, moderate Reason for Exam Vitamin D deficiency Result Comment: HDL CHOL ATP-III CLASSIFICATION Cardiovascular Risk HDL > or equal to 60 mg/dL LOW HDL < 40 mg/dL HIGH Performed By: #### C BC, [id number], THYROID SC, URMACRERAT, FE and TIBC, LIPID, SHAMA, LDLD, CMP ####[place] [id number] [address]#### TOXASSURE, HIV SCREEN ####[facility] , Cholesterol.total/Chol esterol in HDL [Mass ratio] 3.1 {ratio} Normal <5.0 [facility] Comment on above: Order Comment: Reaso n for Exam Urinary frequency;Medication management;Anxiety;Microscopic Reason for Exam Microscopic hematuria;Low iron Reason for Exam Bipolar affective disorder, currently depressed, moderate Reason for Exam Vitamin D deficiency Performed By: #### C BC, [id number], THYROID SC, URMACRERAT, FE and TIBC, LIPID, SHAMA, LDLD, CMP ####[facility]#### TOXASSURE, HIV SCREEN ####[facility] , LDL Cholesterol,Calculated Not performed Normal 0-[address] [facility] Comment on above: Order Comment: Reaso n for Exam Urinary frequency;Medication management;Anxiety;Microscopic Reason for Exam Microscopic hematuria;Low iron Reason for Exam Bipolar affective disorder, currently depressed, moderate Reason for Exam Vitamin D deficiency Performed By: #### C BC, [id number], THYROID SC, URMACRERAT, FE and TIBC, LIPID, SHAMA, LDLD, CMP ####[facility]#### TOXASSURE, HIV SCREEN ####[facility] , Triglyceride w/Reflex 443 mg/dL High 0-149 [facility] Comment on above: Order [...] and resulted. Performed By: #### C BC, [id number], THYROID SC, URMACRERAT, FE and TIBC, LIPID, SHAMA, LDLD, CMP ####[place] [address] [address]#### TOXASSURE, HIV SCREEN ####[facility] , VLDL CHOLESTEROL 88 mg/dL Normal [facility] Comment on above: Order Comment: Reaso n for Exam Urinary frequency;Medication management;Anxiety;Microscopic Reason for Exam Microscopic hematuria;Low iron Reason for Exam Bipolar affective disorder, currently depressed, moderate Reason for Exam Vitamin D deficiency Performed By: #### C BC, [id number], THYROID SC, URMACRERAT, FE and TIBC, LIPID, SHAMA, LDLD, CMP ####[address]#### TOXASSURE, HIV SCREEN ####[facility] , MicroAlb Creat Ratio,Uon Albumin DL <= 20 mg/L (U) [Mass/Vol] 2.1 mg/dL High 0.0-1.8 [facility] Comment on above: Order Comment: Reaso n for Exam Urinary frequency;Microscopic hematuria Performed By: #### C BC, [id number], THYROID SC, URMACRERAT, FE and TIBC, LIPID, SHAMA, LDLD, CMP ####[address]#### TOXASSURE, HIV SCREEN ####[facility] , Creatinine, Urine (Random) 66.0 mg/dL High 11.0-20.0 [facility] Comment on above: Order Comment: Reaso n for Exam Urinary frequency;Microscopic hematuria Performed By: #### C BC, [id number], THYROID SC, URMACRERAT, FE and TIBC, LIPID, SHAMA, LDLD, CMP ####[address]#### TOXASSURE, HIV SCREEN ####[facility] , Microalbumin/Creatinin e Ratio 31.0 mg/g High 0.0-30.0 [facility] Comment on above: Order Comment: Reaso n for Exam Urinary frequency;Microscopic hematuria Result Comment: 30-3 00 mg/g indicates an increased risk for diabetic nephropathy. Greater than 300 mg/g is consistent with clinical nephropathy. (Am. J. Kidney Disease 1995, 25:107) PERFORMED BY: [facility] [address] [place] [address] PATHOLOGIST SPORTS PHYSICIAN PALOMO WESLEY M.D. Performed By: #### C BC, [id number], THYROID SC, URMACRERAT, FE and TIBC, LIPID, SHAMA, LDLD, CMP ####[place] [address] [address]#### TOXASSURE, HIV SCREEN ####[facility] , THYROID SCREENon 06-09-2023 Free T4 [Mass/Vol] 0.68 ng/dL Normal 0.61-1.12 [facility] Comment on above: Order Comment: Reaso n for Exam Urinary frequency;Medication management;Anxiety;Microscopic Reason for Exam Microscopic hematuria;Low iron Reason for Exam Bipolar affective disorder, currently depressed, moderate Reason for Exam Vitamin D deficiency Performed By: #### C BC, [id number], THYROID SC, URMACRERAT, FE and TIBC, LIPID, SHAMA, LDLD, CMP ####[address]#### TOXASSURE, HIV SCREEN ####[facility] , TSH Qn 2.09 m[IU]/L Normal 0.45-5.33 [facility] Comment on above: Order Comment: Reaso n for Exam Urinary frequency;Medication management;Anxiety;Microscopic Reason for Exam Microscopic hematuria;Low iron Reason for Exam Bipolar affective disorder, currently depressed, moderate Reason for Exam Vitamin D deficiency Performed By: #### C BC, [id number], THYROID SC, URMACRERAT, FE and TIBC, LIPID, SHAMA, LDLD, CMP ####[address]#### TOXASSURE, HIV SCREEN ####[facility] , Toxassure, Urineon 03-06-202 4 Toxassure, Urine Summary FINAL Normal . [facility] Comment on above: Order Comment: Marilee worrell for Exam Medication management Result Comment: ===== [...] test is not intended to distinguish between cdzxk-0-ytxokawoprqspvukjwbn, the predominant form of THC in most herbal or marijuana-based products, and hmaph-7-kktjswnzzgpaiserlebp. Gabapentin PRESENT Cyclobenzaprine PRESENT Desmethylcyclobenzaprine PRESENT Desmethylcyclobenzaprine is an expected metabolite of cyclobenzaprine. Naproxen PRESENT ===== Test Result Flag Units Ref Range Creatinine 63 mg/dL >=20 ===== Declared Medications: Medication list was not provided. ===== For clinical consultation, please call . ===== Performed at: [facility] [address] [place] [id number] Glazier Helper: Ana Munoz [facility], Phone: [phone] PERFORMED BY: [facility] [address] [place] [address] PATHOLOGIST SPORTS PHYSICIAN PALOMO WESLEY M.D. Performed By: #### C BC, [id number], THYROID SC, URMACRERAT, FE and TIBC, LIPID, SHAMA, LDLD, CMP ####[facility] [id number] [place] [id number] [facility]#### TOXASSURE, HIV SCREEN ####[facility] , Vitamin D 25 Hydroxy Totalon 06-09-2023 Vitamin D 25 Hydroxy Total 19.8 ng/mL Low 30-100 [facility] Comment on above: Order [...] practice guideline. JCEM. 2010; 96(7):1911-30. PERFORMED BY: [facility] [address] [place] [address] PATHOLOGIST SPORTS PHYSICIAN PALOMO WESLEY M.D. Performed By: #### C BC, [id number], THYROID SC, URMACRERAT, FE and TIBC, LIPID, SHAMA, LDLD, CMP ####[facility] [id number] [place] [address] [facility]#### TOXASSURE, HIV SCREEN ####[facility] , Formson 04-26-2023 Forms [id number]#1. 00TIFF Normal [facility] NM Myocardial Spect Rest/Str ess 1 [...] Stress Dose (mCi Tc99M Cardiolite): 28.9 Normal [facility] Stress EKG Tracingson 2023 Stress EKG Tracings [id number]#1. 00TIFF Normal [facility] Consent for Treatmenton 04-05 Consent for Treatment [id number]#1.0 0TIFF Normal [facility] Heart and Vascular Office/Cl inic Noteon [...] with voice recognition artificial intelligence software, specifically [employer], [employer] and or [place]. Substitutions may have occurred with voice recognition and artificial intelligence software. Documentation services were performed after patient or guardian consented to allow [employer] to record this visit. ANDERSON forestry support specialist and provider reviewed before signing. ANDERSON: [...] 3 refi (more content not included)... 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 Ordering Provider: Jes Cruz Date of Service: 04/01/23 US/US renal BI: R31.9 ([id number]) US/US bladder: R31.9 Copies to: Jes Cruz [...] Johns Jr., D.O.04/01/2023 3:16 PM Dictation Location: [place] [address] Tech: Chloe Delcid Transcribed By: FLORES 04/01/23 1516 Dictated By: Freddy Johns Jr DO 04/01/23 151 Signed By: 04/01/23 1516 Normal [facility] XR KUBon 04-01-2023 XR KUB [facility] [place] [address] XRay Report Signed Patient: Isela Craig MR#: [id number] : 1970 Acct:[id number] Age/Sex: 52 / F ADM Date: 04/01/23 Loc: Room: Type: [facility] Attending Dr: Jes Cruz STRUCTURAL MILL SUPERVISOR-C Copies to: Jes Cruz Ordering Provider: Jes [...] Shae Guzman M.D.04/01/2023 3:38 PM Dictation Location: [facility]- Transcribed By: [facility] 04/01/23 153 Dictated By: Shae Guzman MD 04/01/231535 Signed By: 04/01/23 1538 Normal [facility] Insurance Correspondenceon 05-24-2022 Insurance Correspondence [id number] 0TIFF Normal [facility] Consent for Treatmenton 03-05 Consent for Treatment [id number] 0TIFF [facility] Physician Orderon 03-22-2023 Physician Order [id number] .00TIFF [facility] Referrals Officeon 3 Referrals Office [id number] .00TIFF Normal [facility] COVID Quick Testingon 2022 Result Negative [facility] Other Quick Strepon 12-15-2022 S. pyogenes Org specific cx Ql (Throat) Negative [facility] Other Quick Strep [facility] Other COVID + FLU Quick Testingon 10-14-2022 SARS-CoV-2 (COVID-19) RNA AISSATOU+probe Ql (Unsp spec) Negative [facility] Other COVID + FLU Quick Testing Negative [employer] Other Quick Strepon 10-14-2022 S. pyogenes Org specific cx Ql (Throat) Negative [employer] Other Quick Strep [employer] Other Office Visit (Cardiology)on 06-24-2022 Follow-up visit Diagnoses/Problems Assessed Costochondritis (733.6) (M94.0) Palpitations (785.1) (R00.2) For the most part brief and fleeting, seem most consistent with PVC. Coronary artery disease involving [place] coronary artery of [place] heart without angina pectoris (414.01) (I25.10) Mar [...] contact the office if new symptoms arise. 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 Last week she presented to [facility] due to chest pain and dizziness. [...] and fluttering . 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 Due to blood pressure and palpitations [...] Recorded: 24Jun2022 09:32AM Heart Rate88, R Radial Dfxdupkz714, RUE, Si (more content not included)... Normal [employer] Tobacco Screening.on 023 Adult depression screening assessment No [facility]-Rodney 250 DO Work Phone: Tobacco use status CPHS a) Yes [facility]alsh 250 DO Work Phone: Tobacco Screening. Yes [facility] Heart-[facility]alsh 250 DO Work Phone: Alanine aminotransferase [En zymatic activity/volume] in Serum or PlasmaOrdered By: Jes Cruz on 06-19-2022 ALT [Catalytic activity/Vol] 11 U/L 7-52 [facility] Albumin [Mass/volume] in Ser um or Plasma by Bromocresol green (BCG) dye binding methoOrdered By: Jes Cruz on 06-19-2022 Albumin BCG dye [Mass/Vol] 4.0 g/dL 3.5-5.7 [facility] Alkaline phosphatase [Enzyma tic activity/volume] in Serum or PlasmaOrdered By: Jes Cruz on 06-19-2022 ALP [Catalytic activity/Vol] 70 U/L 34-104 [facility] Aspartate aminotransferase [ Enzymatic activity/volume] in Serum or PlasmaOrdered By: Jes Cruz on 06-19-2022 AST [Catalytic activity/Vol] 11 U/L 13-39 [facility] Basophils Auto (Bld) [#/Vol] Ordered By: Jes Cruz on 06-19-2022 Basophils (Bld) [#/Vol] 0.1 10*3/uL 0.0-0.2 [facility] Basophils/100 WBC Auto (Bld) Ordered By: Jes Cruz on 06-19-2022 Basophils/100 WBC (Bld) 1.2 % . [facility] Bilirubin.total [Mass/volume ] in Serum or PlasmaOrdered By: Jes Cruz on 06-19-2022 Bilirubin [Mass/Vol] 0.2 mg/dL 0.3-1.0 [facility] C reactive protein [Mass/vol ume] in Serum or Plasma by High sensitivity methodOrdered By: Jes Cruz on 06-19-2022 CRP High sensitivity method [Mass/Vol] 0.4 mg/L 0.0-0.9 [facility] Comment on above: Cardiovascular Risk Classification [...] on 06-19-2022 Calcium [Mass/Vol] 9.1 mg/dL 8.6-10.3 [facility] Carbon dioxide, total [Moles /volume] in Serum or PlasmaOrdered By: Jes Cruz on 06-19-2022 CO2 [Moles/Vol] 24.4 mmol/L 21.0-31.0 [facility] Chloride [Moles/volume] in S shanna or PlasmaOrdered By: Jes Cruz on 06-19-2022 Chloride [Moles/Vol] 108 mmol/L 98-107 [facility] Cholesterol [Mass/volume] in Serum or PlasmaOrdered By: Jes Cruz on 06-19-2022 Cholesterol [Mass/Vol] 190 mg/dL 140-200 [facility] Comment on above: Chol less than 200 m g/dl low riskChol 201-239 mg/dl borderline riskChol 240 mg/dl and greater high risk Cholesterol in LDL Calc [Mas s/Vol]Ordered By: Jse Cruz on 06-19-2022 Cholesterol in LDL [Mass/Vol] 74 mg/dL 0-100 [facility] Comment on above: LDL ATP III CLASSIFI CATIONLDL less than 100 mg/dL OptimalLDL 100-129 mg/dL Near or above optimalLDL 130-159 mg/dL Borderline highLDL 160-189 mg/dL HighLDL greater than 189 mg/dL Very high Cholesterol in VLDL Calc [Ma ss/Vol]Ordered By: Jes Cruz on 06-19-2022 Cholesterol in VLDL [Mass/Vol] 48 mg/dL [facility] Creatine kinase [Enzymatic a ctivity/volume] in Serum or PlasmaOrdered By: Jes Cruz on 06-19-2022 CK [Catalytic activity/Vol] 35 U/L 30-223 [facility] Creatine kinase.MB [Mass/vol ume] in Serum or PlasmaOrdered By: Jes Cruz on 06-19-2022 CK.MB [Mass/Vol] 2.3 ng/mL 0.6-6.3 [facility] Creatinine [Mass/volume] in Serum or PlasmaOrdered By: Jes Cruz on 06-19-2022 Creatinine [Mass/Vol] 0.79 mg/dL 0.60-1.20 [facility] Eosinophils Auto (Bld) [#/Vo l]Ordered By: Jes Cruz on 06-19-2022 Eosinophils (Bld) [#/Vol] 0.2 10*3/uL 0.0-0.45 [facility] Eosinophils/100 WBC Auto (Bl d)Ordered By: Jes Cruz on 06-19-2022 Eosinophils/100 WBC (Bld) 2.5 % . [facility] Erythrocyte distribution wid th Auto (RBC) [Ratio]Ordered By: Jes Cruz on 06-19-2022 Erythrocyte distribution width (RBC) [Ratio] 13.2 % 11.9-15.3 [facility] Globulin Calc (S) [Mass/Vol] Ordered By: Jes Cruz on 06-19-2022 Globulin (S) [Mass/Vol] 2.3 g/dL [facility] Glucose [Mass/volume] in Ser um or PlasmaOrdered By: Jes Cruz on 06-19-2022 Glucose [Mass/Vol] 94 mg/dL 74-109 [facility] Comment on above: ADA recommended refe rence rangeRandom Glucose Reference Range is dependent on time and content of last meal. Glucose of more than 200 mg/dL in a nonstressed, ambulatory subject supports the diagnosis of Diabetes Mellitus. Hematocrit Auto (Bld) [Volum e fraction]Ordered By: Jes Cruz on 06-19-2022 Hematocrit (Bld) [Volume fraction] 39.3 % 34.0-46.4 [facility] Hemoglobin [Mass/volume] in BloodOrdered By: Jes Cruz on 06-19-2022 Hemoglobin (Bld) [Mass/Vol] 13.1 g/dL 11.8-15.4 [facility] Laboratory - Chemistry and C hemistry - challengeOrdered By: Jes Cruz on 06-19-2022 GFR/1.73 sq M.predicted MDRD (S/P/Bld) [Vol rate/Area] mL/min/{1.73_m2} [facility] Leukocytes [#/volume] correc ricardo for nucleated erythrocytes in Blood by Automated counOrdered By: Jes Cruz on 06-19-2022 WBC corrected for nucl RBC Auto (Bld) [#/Vol] 8.2 10*3/uL 3.8-11.6 [facility] Lymphocytes Auto (Bld) [#/Vo l]Ordered By: Jes Cruz on 06-19-2022 Lymphocytes (Bld) [#/Vol] 2.5 10*3/uL 1.00-4.8 [facility] Lymphocytes/100 WBC Auto (Bl d)Ordered By: Jes Cruz on 06-19-2022 Lymphocytes/100 WBC (Bld) 30.3 % . [facility] MCH Auto (RBC) [Entitic mass ]Ordered By: Jes Cruz on 06-19-2022 MCH (RBC) [Entitic mass] 33.2 pg 24.7-34.3 [facility] MCHC Auto (RBC) [Mass/Vol]Or dered By: Jes Cruz on 06-19-2022 MCHC (RBC) [Mass/Vol] 33.4 g/dL 32.0-35.0 [facility] MCV Auto (RBC) [Entitic vol] Ordered By: Jes Cruz on 06-19-2022 MCV (RBC) [Entitic vol] 99.5 fL 80-100 [facility] Monocytes Auto (Bld) [#/Vol] Ordered By: Jes Cruz on 06-19-2022 Monocytes (Bld) [#/Vol] 1.0 10*3/uL 0.0-0.8 [facility] Monocytes/100 WBC Auto (Bld) Ordered By: Jes Cruz on 06-19-2022 Monocytes/100 WBC (Bld) 11.6 % . [facility] Natriuretic peptide B [Mass/ Vol]Ordered By: Jes Cruz on 06-19-2022 Natriuretic peptide B (Bld) [Mass/Vol] 87.0 pg/mL 5-100 [facility] Neutrophils Auto (Bld) [#/Vo l]Ordered By: Jes Cruz on 06-19-2022 Neutrophils (Bld) [#/Vol] 4.5 10*3/uL 1.8-7.7 [facility] Neutrophils/100 WBC Auto (Bl d)Ordered By: Jes Cruz on 06-19-2022 Neutrophils/100 WBC (Bld) 54.4 % . [facility] No Panel InformationOrdered By: Jes Cruz on 06-19-2022 Pharmacy Creatinine Clearance (Chem N/A [facility] Nucleated erythrocytes [Pres ence] in Blood by Automated countOrdered By: Jes Cruz on 06-19-2022 Nucleated RBC Auto Ql (Bld) 0.2 /100{WBC} 0-0.5 [facility] Platelet mean volume Auto (B ld) [Entitic vol]Ordered By: Jes Cruz on 06-19-2022 Platelet mean volume (Bld) [Entitic vol] 10.2 fL 6.3-10.7 [facility] Platelets Auto (Bld) [#/Vol] Ordered By: Jes Cruz on 06-19-2022 Platelets (Bld) [#/Vol] 297 10*3/uL 150-450 [facility] Potassium [Moles/volume] in Serum or PlasmaOrdered By: Jes Cruz on 06-19-2022 Potassium [Moles/Vol] 4.3 mmol/L 3.5-5.1 [facility] Protein [Mass/volume] in Ser um or PlasmaOrdered By: Jes Cruz on 06-19-2022 Protein [Mass/Vol] 6.3 g/dL 6.4-8.9 [facility] RBC Auto (Bld) [#/Vol]Ordere d By: Jes Cruz on 06-19-2022 RBC (Bld) [#/Vol] 3.95 10*6/uL 3.60-5.00 [facility] Serum or plasma albumin/glob ulin mass ratioOrdered By: Jes Cruz on 06-19-2022 Albumin/Globulin [Mass ratio] 1.7 {ratio} [facility] Serum or plasma anion gap de terminationOrdered By: Jes Cruz on 06-19-2022 Anion gap [Moles/Vol] 10.9 mmol/L 6.0-15.0 [facility] Serum or plasma creatine kin ase MB (CKMB)/total creatine kinase (CK) ratio by calculaOrdered By: Jes Cruz on 06-19-2022 CK.MB Calc [Catalytic fraction] 6.5 % 0.00-2.50 [facility] Serum or plasma high density lipoprotein (HDL) cholesterol measurementOrdered By: Jes Cruz on 06-19-2022 Cholesterol in HDL [Mass/Vol] 68 mg/dL 35-85 [facility] Comment on above: HDL CHOL ATP-III CLA SSIFICATION Cardiovascular RiskHDL > or equal to 60 mg/dL LOWHDL < 40 mg/dL HIGH Serum or plasma total choles terol/high density lipoprotein (HDL) cholesterol mass ratOrdered By: Jes Cruz on 06-19-2022 Cholesterol.total/Chol esterol in HDL [Mass ratio] 2.8 {ratio} <5.0 [facility] Sodium [Moles/volume] in Ser um or PlasmaOrdered By: Jes Cruz on 06-19-2022 Sodium [Moles/Vol] 139 mmol/L 136-145 [facility] Thyrotropin [Units/volume] i n Serum or PlasmaOrdered By: Jes Cruz on 06-19-2022 TSH Qn 2.33 m[IU]/L 0.45-5.33 [facility] Thyroxine (T4) free [Mass/vo lume] in Serum or PlasmaOrdered By: Jes Cruz on 06-19-2022 Free T4 [Mass/Vol] 0.63 ng/dL 0.61-1.12 [facility] Triglyceride [Mass/volume] i n Serum or PlasmaOrdered By: Jes Cruz on 06-19-2022 Triglyceride [Mass/Vol] 241 mg/dL 0-149 [facility] Comment on above: TRIG ATP III CLASSIF ICATIONTRIG less than 150 mg/dL NormalTRIG 150-199 mg/dL Borderline highTRIG 200-500 mg/dL High TRIG greater than 500 mg/dL Very highStandard traceable to the Center for Disease Conrtrol and Prevention (CDC) test method. Urea nitrogen [Mass/volume] in Serum or PlasmaOrdered By: Jes Cruz on 06-19-2022 Urea nitrogen [Mass/Vol] 9 mg/dL 7-25 [facility] WBC Auto (Bld) [#/Vol]Ordere d By: Jes Cruz on 06-19-2022 WBC (Bld) [#/Vol] 8.2 10*3/uL 3.8-11.6 [facility] CARDIAC BJORN ADMITon 023 CK [Catalytic activity/Vol] 54 U/L Normal 26-192 [facility] Comment on above: Performed By: #### C MADM, CMP #### [facility] [address] [place] [address] [address] Howard Guthrie CK.MB [Mass/Vol] 1.70 ng/mL Normal <=3.60 [facility] Comment on above: Performed By: #### C MADM, CMP #### [facility] [address] [place] [address] [address] Howard Guthrie HSTROP <4.0 Normal 4.0-51.[address] [facility] Comment on above: Result Comment: CUT- OFF POINTS HAVE BEEN ESTABLISHED BASED ON THE FOURTH UNIVERSAL DEFINITIONS OF MYOCARDIAL INFARCTION. THE UPPER REFERENCE LIMIT (URL) OF TROPONIN, DEFINED THE 99TH PERCENTILE OF cTnI DISTRIBUTION IN A REFERENCE POPULATION, HAS BEEN CONFIRMED THE DECISION THRESHOLD FOR [place] DIAGNOSIS. Performed By: #### C MADM, CMP #### [facility] [address] [place] [address] [address] Howard Guthrie NYA 23 ng/mL Normal 9-82 [facility] Comment on above: Performed By: #### C MADM, CMP #### [facility] [address] [place] [address] [address] Howard Guthrie CBC AUTO DIFFon 06-17-2022 BASO # 0.1 103/ul Normal 0.0-0.1 [facility] Comment on above: Performed By: #### C BC #### [facility] [address] [place] [address] Dr. Howard Guthrie Basophils/100 WBC (Bld) 1.0 % Normal 0.2-2.0 [facility] Comment on above: Performed By: #### C BC #### [facility] [address] [place] [address] Dr. Howard Guthrie EO # 0.2 103/ul Normal 0.0-0.7 [facility] Comment on above: Performed By: #### C BC #### [facility] [address] [place] [address] Dr. Howard Guthrie Eosinophils/100 WBC (Bld) 2.9 % Normal 0.9-7.0 [facility] Comment on above: Performed By: #### C BC #### [facility] [address] [place] [address] Dr. Howard Guthrie Erythrocyte distribution width (RBC) [Ratio] 12.7 % Normal 11.0-15.0 [facility] Comment on above: Performed By: #### C BC #### [facility] [address] [place] [address] Dr. Howard Guthrie Hematocrit (Bld) [Volume fraction] 42.5 % Normal 36.0-48.0 [facility] Comment on above: Performed By: #### C BC #### [facility] [address] [place] [address] Dr. Howard Guthrie Hemoglobin (Bld) [Mass/Vol] 14.7 g/dL Normal 12.0-16.0 [facility] Comment on above: Performed By: #### C BC #### [facility] [address] [place] [address] Dr. Howard Guthrie IG # 0.02 10e3/ul Normal 0.00-0.03 [facility] Comment on above: Performed By: #### C BC #### [facility] [address] [place] [address] Dr. Howard Guthrie IG % 0.3 % Normal 0.0-0.5 [facility] Comment on above: Performed By: #### C BC #### [facility] [address] [place] [address] Dr. Howard Guthrie LYMPH # 2.1 103/ul Normal 1.2-3.8 [facility] Comment on above: Performed By: #### C BC #### [facility] [address] [place] [address] Dr. Howard Guthrie Lymphocytes/100 WBC (Bld) 28.4 % Normal 20.5-60.0 [facility] Comment on above: Performed By: #### C BC #### [facility] [address] [place] [address] Dr. Howard Guthrie MANUAL DIFF REQ NO Normal [facility] Comment on above: Performed By: #### C BC #### [facility] [address] [place] [address] Dr. Howard Guthrie MCH (RBC) [Entitic mass] 33.1 pg Normal 26.7-34.0 [facility] Comment on above: Performed By: #### C BC #### [facility] [address] [place] [address] Dr. Howard Guthrie MCHC (RBC) [Mass/Vol] 34.6 g/dL Normal 29.9-35.2 [facility] Comment on above: Performed By: #### C BC #### [facility] [address] [place] [address] Dr. Howard Guthrie MCV (RBC) [Entitic vol] 95.7 fL Normal 81.0-99.0 [facility] Comment on above: Performed By: #### C BC #### [facility] [address] [place] [address] Dr. Howard Guthrie MONO # 1.0 103/ul Critically high 0.3-0.8 [facility] Comment on above: Performed By: #### C BC #### [facility] [address] [place] [address] [address] Howard Guthrie Monocytes/100 WBC (Bld) 13.1 % Critically high 1.7-12.0 [facility] Comment on above: Performed By: #### C BC #### [facility] [address] [place] [address] Dr. Howard Guthrie NEUT # 4.0 103/ul Normal 1.4-6.5 [facility] Comment on above: Performed By: #### C BC #### [facility] [address] [place] [address] Dr. Howard Guthrie Neutrophils/100 WBC (Bld) 54.3 % Normal 43.0-75.0 [facility] Comment on above: Performed By: #### C BC #### [facility] [address] [place] [address] Dr. Howard Guthrie Platelet mean volume (Bld) [Entitic vol] 10.0 fL Normal 9.5-13.5 [facility] Comment on above: Performed By: #### C BC #### [facility] [address] [place] [address] Dr. Howard Guthrie PLT 343 103/ul Normal 150-[address] [facility] Comment on above: Performed By: #### C BC #### [facility] [address] [place] [address] Dr. Howard Guthrie RBC 4.44 106/ul Normal 4.20-5.[address] [facility] Comment on above: Performed By: #### C BC #### [facility] [address] [place] [address] Dr. Howard Guthrie WBC 7.4 103/ul Normal 4.0-11.[address] [facility] Comment on above: Performed By: #### C BC #### [facility] [address] [place] [address] Dr. Howard Guthrie D-DIMERon 06-17-2022 D-DIMER 0.43 mg/L FEU Normal <=0.59 [facility] Comment on above: Performed By: #### D DIM #### [facility] [address] [place] [address] Dr. Howard Guthrie D-DIMER COMMENTS SEE BELOW Normal [facility] Comment on above: Result Comment: Incr [...] hospitalization. Performed By: #### D DIM #### [facility] [address] [place] [address] Dr. Howard Guthrie ER URINE PROFILEon 3 Bilirubin Ql (U) Negative Normal NEGATIVE [facility] Comment on above: Performed By: #### U MICRO, ERUR #### [facility] [address] [place] [address] Dr. Howard Guthrie Clarity (U) CLEAR Normal CLEAR [facility] Comment on above: Performed By: #### U MICRO, ERUR #### [facility] [address] [place] [address] Dr. Howard Guthrie Color (U) LT. YELLOW Normal YELLOW [facility] Comment on above: Performed By: #### U MICRO, ERUR #### [facility] [address] [place] [address] Dr. Howard Guthrie ERUAHD A micrscopic examination will be performed if indicated. Normal [facility] Comment on above: Performed By: #### U MICRO, ERUR #### [facility] [address] [place] [address] Dr. Howard Guthrie Glucose Ql (U) Negative Normal NEGATIVE [facility] Comment on above: Performed By: #### U MICRO, ERUR #### [facility] [address] [address] [address] Howard Guthrie Hemoglobin Ql (U) SMALL Abnormal NEGATIVE [facility] Comment on above: Performed By: #### U MICRO, ERUR #### [facility] [address] [address] [address] Howard Guthrie Ketones Ql (U) Negative Normal NEGATIVE [facility] Comment on above: Performed By: #### U MICRO, ERUR #### [facility] [address] [place] [address] Dr. Howard Guthrie LEUKOCYTES Negative Normal NEGATIVE [facility] Comment on above: Performed By: #### U MICRO, ERUR #### [facility] [address] [place] [address] Dr. Howard Guthrie Nitrite Ql (U) Negative Normal NEGATIVE [facility] Comment on above: Performed By: #### U MICRO, ERUR #### [facility] [address] [place] [address] Dr. Howard Guthrie pH (U) 7.0 [pH] Normal 5-9 [facility] Comment on above: Performed By: #### U MICRO, ERUR #### [facility] [address] [place] [address] Dr. Howard Guthrie SPEC GRAVITY 1.015 Normal 1.005-<=1.0 25 [facility] Comment on above: Performed By: #### U MICRO, ERUR #### [facility] [address] [address] [address] Howard Guthrie UA PROTEIN Negative Normal NEGATIVE/ TRACE [facility] Comment on above: Performed By: #### U MICRO, ERUR #### [facility] [address] [address] [address] Howard Guthrie UR MICRO IND INDICATED Normal [facility] Comment on above: Performed By: #### U MICRO, ERUR #### [facility] [address] [place] [address] Dr. Howard Guthrie Urobilinogen Qn (U) 0.2 {Abdiaziz'U}/dL Normal 0.2 - 1. 0 [facility] Comment on above: Performed By: #### U MICRO, ERUR #### [facility] [address] [address] [address] Howard Guthrie PROF 14(COMP METB)on 023 Albumin [Mass/Vol] 3.8 g/dL Normal 3.4-5.0 [facility] Comment on above: Performed By: #### C MICHAELM, CMP #### [facility] [address] [address] [address] Howard Guthrie Albumin/Globulin [Mass ratio] 1.1 {ratio} Normal [facility] Comment on above: Performed By: #### C MICHAELM, CMP #### [facility] [address] [place] [address] Dr. Howard Guthrie ALP [Catalytic activity/Vol] 96 U/L Normal 46-116 [facility] Comment on above: Performed By: #### C MICHAELM, CMP #### [facility] [address] [address] [address] Howard Guthrie ALT [Catalytic activity/Vol] 19 U/L Normal 14-59 [facility] Comment on above: Performed By: #### C MICHALEM, CMP #### [facility] [address] [address] [address] Howard Guthrie Anion gap [Moles/Vol] 11.2 mmol/L Normal Th [facility] Comment on above: Performed By: #### C MICHAELM, CMP #### [facility] [address] [address] [address] Howard Guthrie AST [Catalytic activity/Vol] 19 U/L Normal 15-37 [facility] Comment on above: Performed By: #### C MADM, CMP #### [facility] [address] [address] [address] Howard Guthrie Bilirubin [Mass/Vol] 0.5 mg/dL Normal 0.2-1.0 [facility] Comment on above: Performed By: #### C MADM, CMP #### [facility] [address] [address] [address] Howard Guthrie Calcium [Mass/Vol] 8.8 mg/dL Normal 8.5-10.1 [facility] Comment on above: Performed By: #### C JORDAN, CMP #### [facility] [address] [place] [address] Dr. Howard Guthrie Chloride [Moles/Vol] 104 mmol/L Normal 98-107 [facility] Comment on above: Performed By: #### C JORDAN, CMP #### [facility] [address] [place] [address] Dr. Howard Guthrie CO2 [Moles/Vol] 24.1 mmol/L Normal 21.0-32.0 [facility] Comment on above: Performed By: #### C JORDAN, CMP #### [facility] [address] [place] [address] Dr. Howard Guthrie Creatinine [Mass/Vol] 0.73 mg/dL Normal 0.55-1.02 [facility] Comment on above: Performed By: #### C JORDAN, CMP #### [facility] [address] [place] [address] Dr. Howard Guthrie EGFR-AF CAMEROONIAN >60 Normal >=60 [facility] Comment on above: Performed By: #### C JORDAN, CMP #### [facility] [address] [place] [address] Dr. Howard Guthrie EGFR-NON AF CAMEROONIAN >60 Normal >=60 [facility] Comment on above: Performed By: #### C JORDAN, CMP #### [facility] [address] [place] [address] Dr. Howard Guthrie Globulin (S) [Mass/Vol] 3.6 g/dL Normal [facility] Comment on above: Performed By: #### C JORDAN, CMP #### [facility] [address] [place] [address] Dr. Howard Guthrie Glucose [Mass/Vol] 112 mg/dL Critically high 74-106 [facility] Comment on above: Performed By: #### C JORDAN, CMP #### [facility] [address] [place] [address] Dr. Howard Guthrie Potassium [Moles/Vol] 3.3 mmol/L Critically low 3.5-5.1 [facility] Comment on above: Performed By: #### C JORDAN, CMP #### [facility] [address] [place] [address] Dr. Howard Guthrie Protein [Mass/Vol] 7.4 g/dL Normal 6.4-8.2 [facility] Comment on above: Performed By: #### C JORDAN, CMP #### [facility] [address] [place] [address] Dr. Howard Guthrie Sodium [Moles/Vol] 136 mmol/L Normal 136-145 [facility] Comment on above: Performed By: #### C JORDAN, CMP #### [facility] [address] [place] [address] Dr. Howard Guthrie Urea nitrogen [Mass/Vol] 6.0 mg/dL Critically low 7.0-18.0 [facility] Comment on above: Performed By: #### Terrie ORTEGA, CMP #### [facility] [address] [place] [address] Dr. Howard Guthrie Urea nitrogen/Creatinine [Mass ratio] 8.2 mg/mg Normal [facility] Comment on above: Performed By: #### Terrie ORTEGA, CMP #### [facility] [address] [place] [address] Dr. Howard Guthrie TROPONIN, HIGH SENSITIVITYon 06-17-2022 HSTROP 4.6 pg/mL Normal 4.0-51.[address] [facility] Comment on above: Result Comment: CUT- OFF POINTS HAVE BEEN ESTABLISHED BASED ON THE FOURTH UNIVERSAL DEFINITIONS OF MYOCARDIAL INFARCTION. THE UPPER REFERENCE LIMIT (URL) OF TROPONIN, DEFINED THE 99TH PERCENTILE OF cTnI DISTRIBUTION IN A REFERENCE POPULATION, HAS BEEN CONFIRMED THE DECISION THRESHOLD FOR [place] DIAGNOSIS. Performed By: #### H STROPN #### [facility] [address] [place] [address] Dr. Howard Guthrie URINE MICROSCOPIC ONLYon BACTERIA TRACE Abnormal NONE SEEN [facility] Comment on above: Performed By: #### U MICRO, ERUR #### [facility] [address] [place] [address] Dr. Howard Guthrie Bacteria identified Cx Nom (U) NOT INDICATED Normal [facility] Comment on above: Performed By: #### U MICRO, ERUR #### [facility] [address] [place] [address] Dr. Howard Guthrie CAST NONE SEEN Normal NONE SEEN [facility] Comment on above: Performed By: #### U MICRO, ERUR #### [facility] [address] [place] [address] Dr. Howard Guthrie Crystals LM Nom (Urine sed) NONE SEEN Normal NONE SEEN [facility] Comment on above: Performed By: #### U MICRO, ERUR #### [facility] [address] [place] [address] Dr. Howard Guthrie Epithelial cells LM Ql (Urine sed) FEW Abnormal NONE SEEN /RARE [facility] Comment on above: Performed By: #### U MICRO, ERUR #### [facility] [address] [place] [address] Dr. Howard Guthrie MUCOUS TRACE Abnormal NONE SEEN [facility] Comment on above: Performed By: #### U MICRO, ERUR #### [facility] [address] [place] [address] Dr. Howard Guthrie RBC 2-5 Abnormal 0-[address] [facility] Comment on above: Performed By: #### U MICRO, ERUR #### [facility] [address] [place] [address] Dr. Howard Guthrie WBC NONE SEEN Normal NONE SEEN [facility] Comment on above: Performed By: #### U MICRO, ERUR #### [facility] [address] [place] [address] Dr. Howard Guthrie XR CHEST 1 Von [...] NICK MARIE Date: 2022-06-17 12:[address] [facility] Tobacco Screening.on 022 Adult depression screening assessment No [facility] 250 DO Work Phone: Tobacco use status CPHS a) Yes [facility] 250 DO Work Phone: Tobacco Screening. Yes [facility] 250 DO Work Phone: Vital Signs Date Time Vital Sign Value Performing Clinician Faci henry 09-13-2023 13:06-0400 Blood Pressure Location Roosevelt Sotelo [facility] 09-13-2023 13:06-0400 Diastolic blood pressure 85 mm[Hg] Roosevelt Sotelo [facility] 09-13-2023 13:06-0400 Heart rate 90 /min Roosevelt Sotelo [facility] 09-13-2023 13:06-0400 SaO2% (BldA) [Mass fraction] 99 % Roosevelt Sotelo [facility] 09-13-2023 13:06-0400 Systolic blood pressure 125 mm[Hg] Roosevelt Deepak [facility] 08-10-2023 09:19-0400 Blood Pressure Location JES ROLLE [facility] 08-10-2023 09:19-0400 Body temperature 98.24 [degF] JES ROLLE [facility] 08-10-2023 09:19-0400 Diastolic blood pressure 78 mm[Hg] JES ROLLE [facility] 08-10-2023 09:19-0400 Heart rate 80 /min JES ROLLE [facility] 08-10-2023 09:19-0400 Respiratory rate 19 /min JES ROLLE [facility] 08-10-2023 09:19-0400 Systolic blood pressure 136 mm[Hg] JES ROLLE [facility] 03-22-2023 13:16-0500 Blood Pressure Location Ramone Jose [facility] 03-22-2023 13:16-0500 Diastolic blood pressure 85 mm[Hg] Ramone Garcia [facility] 03-22-2023 13:16-0500 Heart rate 90 /min Ramone Jose [facility] 03-22-2023 13:16-0500 SaO2% (BldA) [Mass fraction] 99 % Ramone Jose [facility] 03-22-2023 13:16-0500 Systolic blood pressure 126 mm[Hg] Ramone Garcia [facility] 12-15-2022 13:20-0400 Body height 165.1 cm Loretta Javier Other [employer] Other 12-15-2022 13:20-0400 Body mass index (BMI) [Ratio] 23.13 kg/m2 Loretta Javier Other [employer] [facility] Other 12-15-2022 13:20-0400 Body temperature 98.1 [degF] Loretta Javier Other [employer] Other 12-15-2022 13:20-0400 Body weight 63.05 kg Loretta Javier Other [employer] Other 12-15-2022 13:20-0400 Diastolic blood pressure 76 mm[Hg] Loretta Javier Other [employer] Other 12-15-2022 13:20-0400 Respiratory rate 18 /min Lroetta Javier Other [employer] Other 12-15-2022 13:20-0400 SaO2% (BldA) [Mass fraction] 98 % Loretta Javier Other [employer] Other 12-15-2022 13:20-0400 Systolic blood pressure 128 mm[Hg] Loretta Javier Other [employer] Other 10-14-2022 11:10-0400 Body height 165.1 cm Tanya Belen Other [employer] Other 10-14-2022 11:10-0400 Body mass index (BMI) [Ratio] 23.39 kg/m2 Tanya Belen Other [employer] Other 10-14-2022 11:10-0400 Body temperature 97.8 [degF] Tanya Belen Other [employer] Other 10-14-2022 11:10-0400 Body weight 63.78 kg Tanya Belen Other [employer] Other 10-14-2022 11:10-0400 Diastolic blood pressure 85 mm[Hg] Tanya Glover Other [employer] Other 10-14-2022 11:10-0400 Respiratory rate 18 /min Tanya Glover Other [employer] Other 10-14-2022 11:10-0400 SaO2% (BldA) [Mass fraction] 99 % Tanya Glover Other [employer] Other 10-14-2022 11:10-0400 Systolic blood pressure 143 mm[Hg] Tanya Glover Other [employer] Other 06-24-2022 09:32-0400 Body height 165.1 cm No PCP None [facility] 250 DO Work Phone: 06-24-2022 09:32-0400 Body mass index (BMI) [Ratio] 24.63 kg/m2 No PCP None [facility] 250 DO Work Phone: 06-24-2022 09:32-0400 Body surface area Derived from formula 1.74 m2 No PCP None [facility] 250 DO Work Phone: 06-24-2022 09:32-0400 Body weight 67.13 kg No PCP None [facility] 250 DO Work Phone: 06-24-2022 09:32-0400 Diastolic blood pressure 82 mm[Hg] No PCP None [facility] 250 DO Work Phone: 06-24-2022 09:32-0400 Heart rate 88 /min No PCP None [facility] 250 DO Work Phone: 06-24-2022 09:32-0400 Systolic blood pressure 124 mm[Hg] No PCP None [facility] 250 DO Work Phone: 06-02-2021 15:09-0500 Diastolic blood pressure 98 mm[Hg] No PCP None [facility] 250 DO Work Phone: 06-02-2021 15:09-0500 Systolic blood pressure 142 mm[Hg] No PCP None [facility] 250 DO Work Phone: 06-02-2021 15:03-0500 Body height 165.1 cm No PCP None [facility] 250 DO Work Phone: 06-02-2021 15:03-0500 Body mass index (BMI) [Ratio] 28.29 kg/m2 No PCP None [facility] 250 DO Work Phone: 06-02-2021 15:03-0500 Body surface area Derived from formula 1.85 m2 No PCP None [facility] 250 DO Work Phone: 06-02-2021 15:03-0500 Body weight 77.11 kg No PCP None [facility] 250 DO Work Phone: 06-02-2021 15:03-0500 Diastolic blood pressure 90 mm[Hg] No PCP None [facility] 250 DO Work Phone: 06-02-2021 15:03-0500 Heart rate 92 /min No PCP None [facility] 250 DO Work Phone: 06-02-2021 15:03-0500 Systolic blood pressure 142 mm[Hg] No PCP None [facility] 250 DO Work Phone: Encounters Encounter Date Encounter Type Care Provider Facility Start: 03-06-2024 ambulatory Alexandro Pulido ty:[facility] Start: 02-18-2024 ambulatory Alexandro Pulido ty:[facility] Start: 02-17-2024 ambulatory Alexandro Pulido ty:[id number] Start: 01-27-2024 End: 01-27-2024 ambulatory [facility] Start: 01-25-2024 End: 01-25-2024 ambulatory [facility] Start: 01-25-2024 End: 01-25-2024 ambulatory [facility] Start: 01-07-2024 End: 01-07-2024 ambulatory Roosevelt Sotelo Facility:[facility] Start: 01-07-2024 End: 01-07-2024 Patient encounter procedure Roosevelt Sotelo [facility] Start: 12-17-2023 End: 12-17-2023 ambulatory Alexandro PARTIDA Facility:[facility] Start: 12-14-2023 End: 12-14-2023 ambulatory [facility] Start: 12-02-2023 End: 12-02-2023 Patient encounter procedure [employer] Jes Cruz Work Phone: [facility] [address] Work Phone: Start: 12-02-2023 End: 12-02-2023 ambulatory [employer]C Jes Cruz Work Phone: [facility] Work Phone: Start: 11-26-2023 ambulatory Alexandro PARTIDA Facili ty:[facility] Start: 11-25-2023 End: 11-25-2023 ambulatory Alexandro PARTIDA Facility:[id number] Start: 11-01-2023 End: 11-01-2023 Patient encounter procedure [employer] Jes Cruz Work Phone: [facility] [address] Work Phone: Start: 11-01-2023 End: 11-01-2023 ambulatory [employer] Jes Cruz Work Phone: [facility] Work Phone: Start: 10-14-2023 End: 10-14-2023 ambulatory JES ROLLE Facility:[facility] Start: 10-14-2023 End: 10-14-2023 Patient encounter procedure JES ROLLE [facility] Start: 10-12-2023 Non-patient / Non-visit [employer] Jes Cruz Work Phone: [facility] Work Phone: Start: 10-05-2023 End: 10-05-2023 ambulatory Alexandro PARTIDA Facility:[facility] Start: 10-05-2023 End: 10-05-2023 Patient encounter procedure Alexandro PARTIDA [facility] Start: 09-18-2023 End: 09-19-2023 Emergency department patient visit [facility] Start: 09-13-2023 End: 09-13-2023 ambulatory XXXX NONE Facility:[facility] Start: 09-13-2023 End: 09-13-2023 Patient encounter procedure Roosevelt Sotelo [facility] Start: 09-11-2023 Non-patient / Non-visit [employer] Jes Cruz Work Phone: [facility] Work Phone: Start: 08-10-2023 End: 08-10-2023 ambulatory JES ROLLE Facility:[facility] Start: 08-10-2023 End: 08-10-2023 Lab Drop off JES ROLLE [facility] Start: 08-10-2023 End: 08-10-2023 ambulatory JES Akhtar ELSA Facility:[facility] Start: 08-10-2023 End: 08-10-2023 Patient encounter procedure JES ROLLE [facility] Start: 06-09-2023 End: 06-09-2023 ambulatory Jes Natasha Anthony Facility:[facility] Start: 04-27-2023 ambulatory Roosevelt Sotelo Facility:[facility] Start: 04-16-2023 End: 04-16-2023 ambulatory Ramone Garcia Facility:[facility] Start: 04-16-2023 End: 04-16-2023 Patient encounter procedure Ramone Garcia [facility] Start: 04-01-2023 End: 04-01-2023 ambulatory PHYSICIAN PRETTY HOLLEY Facility:[facility] Start: 03-22-2023 End: 03-22-2023 ambulatory Ramone Garcia Facility:[facility] Start: 03-22-2023 End: 03-22-2023 Patient encounter procedure Ramone Garcia [facility] Start: 12-15-2022 End: 12-15-2022 ambulatory Loretta Javier Other [employer] Other Start: 12-15-2022 Office outpatient visit 25 minutes Loretta Javier [facility] Start: 10-14-2022 End: 10-14-2022 ambulatory Tanya Glover Other [facility] Other Start: 10-14-2022 Office outpatient visit 15 minutes Tanya Glover [facility] Start: 08-14-2022 ambulatory Ms. Jes Cruz Facility: Start: 08-14-2022 FUV, Provider: Nadia Franks, Status: Pen, Time: 1:00 PM No PCP None [facility] 250 DO Work Phone: Start: 08-06-2022 Rx Renewal No PCP [facility] DO Work Phone: Start: 06-24-2022 Office outpatient visit 15 minutes No PCP None [facility] 250 DO Work Phone: Start: 06-24-2022 ambulatory Ms. Nadia mendoza Facility: Start: 06-19-2022 End: 06-19-2022 ambulatory PHYSICIAN NO [facility] Work Phone: Start: 06-19-2022 End: 06-19-2022 Departed Referred PHYSICIAN [facility] Start: 06-17-2022 End: 06-17-2022 ambulatory RIVER ESTUARDO . Facility: Start: 11-10-2021 ambulatory Ms. Nadia mendoza Facility: Start: 10-27-2021 Rx Renewal No PCP None [facility] 250 DO Work Phone: Start: 06-02-2021 Office outpatient visit 25 minutes No PCP None [facility] 250 DO Work Phone: Procedures Date Procedure Procedure Detail Performing Clinician Start: 12-02-2023 MR lumbar spine wo con [employer] Jes paiz Work Phone: Start: 11-01-2023 Urine culture [employer]-Terrie sotelo Work Phone: Start: 10-05-2023 Cystourethroscopy with dilation of urethral stricture JES ROLLE Cardiac catheter (ph ysical object) Ramone Garcia Cardiac catheterization No P CP None Colonoscopy Ramone Chase rson Hysterectomy Ramone daltonon Operative procedure on foot No PCP None Procedure on back No PCP Non e Procedure on back Ramone salomon Plan of Treatment Date Care Activity Detail Author Start: 11-01-2023 Bacteria identified in Urine by Culture [facility] Start: 08-14-2022 FUV, Provider: Nadia Franks, Status: Pen, Time: 1:00 PM FUV, Provider: Nadia Franks, Status: Pen, Time: 1:00 PM [facility] 250 DO Work Phone: Start: 11-10-2021 FUV, Provider: Nadia Franks, Status: Pen, Time: 3:00 PM FUV, Provider: Nadia Franks, Status: Pen, Time: 3:00 PM [facility] 250 DO Work Phone: Start: 06-30-2021 FUV, Provider: Nadia Franks, Status: Pen, Time: 8:00 AM FUV, Provider: Nadia Franks, Status: Pen, Time: 8:00 AM [facility] 250 DO Work Phone: Estradiol (E2) [Mass/volume] in Serum or Plasma [facility] Lutropin [Units/volu me] in Serum or Plasma [facility] Immunizations Immunization Date Immunization Notes Care Provider Fa [facility] 03-25-2021 influenza, injectabl e, quadrivalent, preservative free No PCP None [facility] 01-05-2020 influenza, injectabl e, quadrivalent, preservative free No PCP None [facility] 250 DO Work Phone: 01-06-2019 influenza, injectabl e, quadrivalent, preservative free [facility] Payers Date Payer Category Payer Self-pay [id number] 1970 Unknown [id number] 1970 Unknown [id number] 1971 [id number] 2.16.840.1.059968.3.579.2. 356 1970 Unknown [id number] 2.16.840.1.017928.3.579.2. 356 1970 Unknown [id number] 2.16.840.1.629874.3.579.2. 1286 1971 Unknown [id number] 2.16.840.1.101962.3.579.2. 1285 1971 Unknown [id number] 2.16.840.1.578809.3.579.2. 1971 Unknown [id number] 2.16.840.1.964127.3.579.2. 1971 Unknown [id number] 2.16.840.1.975157.3.579.2 1971 Unknown [id number] 2.16840.1.700498.3.579.2 1971 Unknown [id number] 2.16840.1.279119.3.579.2 1971 Unknown [id number] 2.16840.1.003353.3.579.2 1971 Unknown [id number] 2.16840.1.314679.3.579.2 1971 Unknown [id number] 2.16840.1.006678.3.579.2 1971 Unknown [id number] 2.16840.1.903817.3.579.2 1971 Unknown [id number] 2.16840.1.811542.3.579.2 1971 Unknown [id number] 2.16.840.1.123442.3.579.2 1971 Unknown [id number] 2.16.840.1.632246.3.579.2 1971 Unknown [id number] 2.16.840.1.643086.3.579.2 1971 Unknown [id number] 2.16.840.1.641436.3.579.2. 727 1958 Medicaid [id number] Private Health Insurance [id number] Unknown [id number] Unknown [facility] Unknown [id number] Unknown [id number] 2.16.840.1.483349.3.579.2. 531 Unknown [id number] 2.16.840.1.153966.3.579.2. 531 Unknown [id number] 2.16.840.1.098252.3.579.2. 531 Unknown [id number] 2.16.840.1.003363.3.579.2. 531 Social History Date Type Detail Facility Tobacco smoking stat [facility] Unknown if ever smoked [facility] Start: 1970 Sex Assigned At Female F [facility] Illicit drug use Illicit drug use -[place] [id number] DO Work Phone: Comment on above: 1 pack per daily.; Start: 05-26-2021 Tobacco smoking stat [facility] Ex-smoker (finding) [facility] Sex Assigned At [facility] Start: 03-22-2023 End: 08-10-2023 Tobacco smoking status Light tobacco smoker (finding) [facility] Tobacco smoking status Never [facility] Medical Equipment Procedure Code Equipment Code Equipment Origin al Text Equipment Identifier Dates Thoracotomy Staple line-reinforcement strip [id number] FDA Start: 03-26-2021 Thoracotomy Surgical adhesive/sealant, human-derived ()[id number] FDA Start: 03-26-2021 Goals Date Patient Goal Desired Activity /State Functional Status Date Assessment Result Facility 10-14-2023 Functional Status N/A [facility] 09-13-2023 Functional Status No [facility] 08-10-2023 Functional Status N/A [facility] 03-22-2023 Functional Status No [facility] Clinical Notes 10-14-2022 to 02-02-2024 Note Date & Type Note Facility 02-02-[address] Yee case. Dx: spinal hardware complication. Procedure: Removal of hardware L4-S1--screws and rods. Time: 1.5-2 hours. Position: Prone on open Ulisses. Need: C arm. Is on aspirin--not sure who prescribes this for her, but would need clearance to stop. [facility] 01-27-2024 Note SUBJECTIVE: Chief complaint: Broken lumbar hardware. History of present illness: Return visit for back pain, broken lumbar hardware. Patient had a lumbar fusion by neurosurgeon Dr. Hernández about 20 years ago. States prior to surgery, she had been experiencing low back pain. Surgery did seem to help her back pain. However, this summer she was dragged across her yard by her dog. States since then, she has been having low back pain which is hurting on the right and burning on the left. Pain radiates to her left buttock and posteriorly down her left thigh. No variation with time of day. Better lying supine. Worse with movement, bending, twisting. Reports imbalance, though denies falls. States she stumbles frequently, though also acknowledges history of dizziness. Continues to report urinary urgency, though notes she was also supposed to have a bladder sling with urology and has not yet. Denies bowel incontinence. She has not had any recent physical therapy. Has been referred to pain management, though has not yet seen him. Has tried medications such as meloxicam, ibuprofen, muscle relaxants without lasting or substantial relief. No longer on on Vivitrol for history of alcohol dependence. 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 Had recent MRI thoracic and CT lumbar spine. Review of systems: As in HPI. Past Medical History: Diagnosis Date Alcohol abuse Anxiety Bipolar disorder (CMS/HCC) Chronic sinusitis Cocaine use 05/2023 COPD (chronic obstructive pulmonary disease) (CMS/HCC) Coronary vasospasm ([facility]/HCC) Diverticulosis per CT 08/2023 Dyslipidemia Endometriosis Hypertension [...] gabapentin ibuprofen isosorbide mononitrate ER meclizine melatonin mirtazapine naloxone nicotine nicotine polacrilex omeprazole ondansetron ODT prazosin propranolol propylene glycol liquid traMADol Current Outpatient Medications: ARIPiprazole (Abilify) 10 mg [...] DAILY FOR 90 DAYS, Disp: , Rfl: diazePAM (Valium) 5 mg tablet, Take 1 tablet by mouth 30-60 minutes before MRI for claustrophobia. May take 1 additional tablet if needed., Disp: 2 tablet, Rfl: 0 gabapentin (Neurontin) 400 mg capsule, Take 400 [...] BY MOUTH DAILY AT BEDTIME, Disp: , Rfl: propranolol (Inderal) 10 mg tablet, Take 10 mg by mouth in (more content not included)... [facility] 12-14-2023 Note SUBJECTIVE: Chief complaint: Broken lumbar [...] Diagnosis Date Alcohol abuse Anxiety Bipolar disorder ([facility]) Chronic sinusitis Cocaine use 05/2023 COPD (chronic obstructive pulmonary disease) ([facility]) Coronary vasospasm ([facility]) Diverticulosis per CT 08/2023 Dyslipidemia Endometriosis [...] BEDTIME, Disp: , (more content not included)... [facility] 10-14-2023 Hospital Discharge instructions Patient Education [...] including vitamins, herbs, eye drops, creams, and hjjg-yqj-bixqvky medicines. Any problems you or family members [...] provider tells you to take them. Taking ikwy-xch-rdzjvfw medicines, vitamins, herbs, and supplements. Surgery safety [...] provider. Document Revised: 10/25/2020 Document Reviewed: 10/25/2020 [employer] Patient Education 2022 [employer] Follow Up Care 10/05/2023 10:22:18 With:[facility] Address: [address] [place] [id number] Business (1) When: Unknown Comments:for procedure as scheduled [facility] 10-14-2023 Note Patient Education [...] including vitamins, herbs, eye drops, creams, and mcbh-dfc-lhtpjhu medicines. ? Any problems you or family [...] tells you to take them. ? Taking wvkb-zqo-mzopvgd medicines, vitamins, herbs, and supplements. Surgery safety [...] intended to replace (more content not included)... [facility] 08-10-2023 Evaluation + Plan note Diagnostic Tests PendingUrine Cytology ([facility]) 08/10/23 [facility] 08-10-2023 Hospital Discharge instructions Patient Education [...] require a prescription. You can also purchase hzjo-pqx-aojneyz medicines. Medicines may have nicotine in them [...] and encouragement. Call telephone quitlines, such as 4-462-MAVN-NOW, reach out to support groups, or work [...] provider. Document Revised: 03/13/2022 Document Reviewed: 03/13/2022 [employer] Patient Education 2022 [employer]. 08/10/2023 10:11:31 Cystoscopy Cystoscopy Cystoscopy is a [...] including vitamins, herbs, eye drops, creams, and awyt-ylg-iggbjyo medicines. Any problems you or family members [...] provider tells you to take them. Taking vccg-muq-oequqmc medicines, vitamins, herbs, and supplements. Tests You [...] Follow these instructions at home: Medicines Take eeja-qbg-dhvvcod and prescription medicines only as told by [...] provider. Document Revised: 12/03/2021 Document Reviewed: 11/01/2020 [employer] Patient Education 2022 [employer] Follow Up Care 04/30/2023 12:48:57 With:JES ROLLE PA-C, URL Address: [address] [address] [phone] When: Unknown [facility] 08-10-2023 Note Chief Complaint Jes Gomes CNP referral HPI Staff Evaluation requested by Jes Cruz CNP due to Microscopic Hematuria & Renal Cyst. PT is a new pt. Last seen in our office by SARITAM 01/17/20 due to flank pain, hematuria, nocturia, [...] stone or hydro. Unremarkable bladder. KUB 04/01/23 [facility] [place] No obvious urinary tract calculi. AMOL 08/02/23 [facility] - No renal stones or hydro. Unremarkable bladder. KUB 08/02/23 [facility] - No urinary tract calculi. Educated [...] upon conclusion of the workup. -CTU at [facility] now -Urine sample to be sent [...] Cyst of kidney, acquired) Bladder/renal US 04/01/23 [facility] - Small L renal cyst. 06/09/23 - BUN 14. Cr 0.63. GFR >60. -Simple cysts do not require follow-up Ordered: CT Urogram 5. Smoker (F17.200: Nicotine dependence, unspec (more content not included)... [facility] Comment on above: Result Comment: Elec tronically Signed By: JES ROLLE PA-C\.br\Date and Time Signed: 08/10/23 10:56 EDT\.br\Electronically Co-Signed By: Mirela Lozoya\.br\Date and Time Co-Signed: 08/10/23 10:16 EDT 04-17-2023 Note Echocardiology Procedure Exam Date/Time Accession # Ordering Dr. De La Vega Transthoracic 04/16/2023 14:37 EST [id number] Jose PATRICK, Ramone Butt CPT code 49095 [id number] Reason for Exam (Echo Transthoracic Complete) I25.10;CAD Coronary artery disease Report Version: 1 Study ID: [id number] Adult Echocardiogram Report Name: ISELA CRAIG Study Date: 04/16/2023, 1: 10 PM Patient Location: [facility] : 1970 (MM/DD/YYYY) Gender: Female Age: [...] Ramone Garcia MD Transcribed by: [facility] Technologist: GARRY Bravo [facility] [...] understanding and is agreeable to treatment plan [employer] Other 07-12-2023 Evaluation note* Encounter Date Diagnosis [...] - Z20.822) Oct, Bronchitis (ICD-10 - J40) [employer] Other Evaluation + Plan note Future Appointments Appointment Date:05/13/2023 03:45:00 PM Scheduled Provider:Ramone Garcia MD [facility] Type:Cardiology Follow Up (FT) Future Scheduled Tests Radiology* NM Myocardial Spect Rest/Stress 1 Day 03/22/23 * Echo Tran[facility]horacic [facility] Future Appointments Appointment Date:05/13/2023 03:45:00 PM Scheduled Provider:Ramone Garcia MD [facility] ([facility]) [facility] Appointments Appointment Date:09/27/2023 09:30:00 AM Scheduled Provider: Location:[facility] Appointment Type:Urology CALL PAT FT Appointment Date:10/05/2023 09:00:00 AM Scheduled Provider: Location:[facility] Appointment Type:Urology FT Appointment Date:12/13/2023 01:00:00 PM Scheduled Provider:Roosevelt Sotelo PA-C [facility] Type:Cardiology Follow Up (FT) Future Scheduled Tests Radiology* US Carotid Duplex Bilateral [facility]23 [facility] Future Appointments Appointment Date:10/14/2023 12:40:00 PM Scheduled Provider:JES ROLLE PA-C Location:[facility] Appointment Type:URO Complex Office Visit Appointment Date:12/13/2023 01:00:00 PM Scheduled Provider:Roosevelt Sotelo PA-C [facility] Type:Cardiology Follow Up (FT) Future Scheduled Tests Radiology* US Carotid Duplex Bilateral [facility] Future Appointments Appointment Date:11/26/2023 09:30:00 AM Scheduled Provider: Location:[facility] Appointment Type:URO Nurse Visit Appointment Date:12/13/2023 01:00:00 PM Scheduled Provider:Roosevelt Sotelo PA-C [facility] Type:Cardiology Follow Up (FT) Appointment Date:12/13/2023 01:45:00 PM Scheduled Provider:Alexandro PARTIDA MD Location:[facility] Appointment Type:URO Office Visit Future Scheduled Tests Radiology* US Carotid Duplex Bilateral 09/14/23 [facility] evaluation + Plan note Future Appointments Appointment Date:02/21/2024 02:30:00 PM Scheduled Provider:Roosevelt Sotelo PA-C Location:FT.Cardiology Clinic Appointment Type:Cardiology Follow Up (FT) [facility] Evaluation noteNo assessment information available [facility] Work Phone: History general Narrative - Reported* Type Description Date Surgical History hysterectomy Surgical History lumbar [facility] Astley Clarke Other History of Present illness Narrative* The [...] medication regimen. She denies medication side effects. [facility] [address] DO Work Phone: Hospital course Narrative No data available for this section [facility] No data available for this section [facility] No data available for this section [facility] Assessments No Assessments Information Available Family [...] dyspnea. * Patient was recently hospitalized at [facility]. The patient was seen in Cardiology consult with subsequent cardiovascular management by [facility]. Hospitalization records have been reviewed. * Reason for Cardiology Consultation: chest pain (presented with spontaneous PTX) * Consulting Graphic Engineer: Dr. Lopez * Cardiovascular testing: cardiac cath [...] evaluation. * Last week she presented to [facility] due to chest pain and dizziness. [...] and fluttering . 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 Due to blood pressure and palpitations [...] CREATED AUTHOR AUTHOR'S ORGANIZ ATION 07/29/2022 [facility] DATE CREATED AUTHOR AUTHOR'S ORGANIZ ATION 08/16/2022 [facility] DATE CREATED AUTHOR AUTHOR'S ORGANIZ ATION 09/19/2023 [facility] DATE CREATED AUTHOR AUTHOR'S ORGANIZ ATION 10/21/2023 [facility] DATE CREATED AUTHOR AUTHOR'S ORGANIZ ATION 12/22/2023 [facility] DATE CREATED AUTHOR AUTHOR'S ORGANIZ ATION 01/28/2024 [facility] DATE CREATED AUTHOR AUTHOR'S ORGANIZ ATION 02/06/2024 [facility] REASON FOR VISIT (unrecogniz ed section [...] BE BASED ON THE PRIMARY CLINICAL RECORDS. [employer] provides no warranty or guarantee of the accuracy or completeness of information in this document.
[2024-02-09 08:50] LABS: Basophils Absolute Auto 0.1 10^3/uL (0.0-0.1); Basophils Percent Auto 1.2 % (0.2-2.0); Eosinophils Absolute Auto 0.2 10^3/uL (0.0-0.7); Hematocrit 39.6 % (36.0-48.0); Hemoglobin 13.2 g/dL (12.0-16.0); Immature Granulocytes Abs Auto 0.03 10^3/uL (0.00-0.03); Immature Granulocytes Pct Auto 0.5 % (0.0-0.5); Lymphocytes Absolute Auto 1.5 10^3/uL (1.2-3.8); Mean Corpuscular HGB Conc 33.3 g/dL (29.9-35.2); Mean Corpuscular Hemoglobin 31.1 pg (26.7-34.0); Mean Corpuscular Volume 93.4 fL (81.0-99.0); Monocytes Absolute Auto 0.8 10^3/uL (0.3-0.8); Monocytes Percent Auto 12.7 % (1.7-12.0); Neutrophils Absolute Auto 3.5 10^3/uL (1.4-6.5); Neutrophils Percent Auto 57.6 % (43.0-75.0); Platelet Count 314 10^3/uL (150-450); Red Blood Count 4.24 10^6/uL (4.20-5.40); Red Cell Distribution Width 14.1 % (11.0-15.0); White Blood Count 6.1 10^3/uL (4.0-11.0)
--- NOTE | 2024-02-09 08:51 | PM.PRESUREVA ---
History of Present Illness History of Present Illness Chief complaint: stress incontinence Narrative: Patient presents for presurgical testing. The patient reports urinary incontinence/stress incontinence and she is looking forward to having her TVT sling procedure. She denies hematuria, dysuria, abdominal pain, nausea, vomiting, or any other complaints. Review of Systems ROS Narrative REVIEW OF SYSTEMS: Negative except as stated in HPI, ten or more systems reviewed. Constitutional: No fever, chills, weakness ENT: No sore throat or epistaxis Cardiovascular: No edema, chest pain, palpitations, or activity intolerance Respiratory: Chronic dyspnea on exertion, no cough Musculoskeletal: No joint pain or swelling Gastrointestinal: No abdominal pain, constipation, diarrhea, or vomiting Genitourinary: No dysuria or hematuria Neurological: No numbness, tingling, weakness, or headache Psychiatric: No mood changes [facility] Medical History (Updated 02/09/24 @ 08:33 by Harleen Holden NP) History of blood transfusion (2020) ?Z92.89 - Personal history of other medical treatment (ICD-10) Stress incontinence ?N39.3 - Stress incontinence (female) (male) (ICD-10) Constipation ?K59.00 - Constipation, unspecified (ICD-10) Arthritis ?M19.90 - Unspecified osteoarthritis, unspecified site (ICD-10) Back pain ?M54.9 - Dorsalgia, unspecified (ICD-10) Anemia ?D64.9 - Anemia, unspecified (ICD-10) Depression ?F32.A - Depression, unspecified (ICD-10) Anxiety ?F41.9 - Anxiety disorder, unspecified (ICD-10) COVID-19 ?U07.1 - COVID-19 (ICD-10) Electronic cigarette use ?Z78.9 - Other specified health status (ICD-10) Chronic obstructive pulmonary disease ?J44.9 - Chronic obstructive pulmonary disease, unspecified (ICD-10) GERD (gastroesophageal reflux disease) ?K21.9 - Gastro-esophageal reflux disease without esophagitis (ICD-10) Dyspnea on exertion ?R06.09 - Other forms of dyspnea (ICD-10) Irregular heart beat ?I49.9 - Cardiac arrhythmia, unspecified (ICD-10) Coronary artery disease ?I25.10 - Atherosclerotic heart disease of [place] coronary artery without angina pectoris (ICD-10) Hypertension ?I10 - Essential (primary) hypertension (ICD-10) Hallux rigidus ?M20.20 - Hallux rigidus, unspecified foot (ICD-10) Hallux valgus ?M20.10 - Hallux valgus (acquired), unspecified foot (ICD-10) Palpitation ?R00.2 - Palpitations (ICD-10) Costochondritis ?M94.0 - Chondrocostal junction syndrome [[place]] (ICD-10) Coronary vasospasm ?I20.1 - Angina pectoris with documented spasm (ICD-10) Spontaneous pneumothorax (03/2021) ?J93.83 - Other pneumothorax (ICD-10) Admission for pleural drainage tube placement ?Z46.82 - Encounter for fitting and adjustment of non-vascular catheter (ICD-10) Surgical History (Updated 11/12/23 @ 08:54 by Harleen Holden NP) H/O foot surgery (05/03/23) ?Z98.890 - Other specified postprocedural states (ICD-10) History of cardiac catheterization ?Z98.890 - Other specified postprocedural states (ICD-10) History of foot surgery ?Z98.890 - Other specified postprocedural states (ICD-10) History of spinal surgery ?Z98.890 - Other specified postprocedural states (ICD-10) History of hysterectomy ?Z90.710 - Acquired absence of both cervix and uterus (ICD-10) Family History (Updated 03/05/23 @ 13:50 by Harleen Holden NP) Other Family history of DVT Family history of hypertension Family history of liver cancer Family history of myocardial infarction Family history of stroke Social History (Updated 02/09/24 @ 08:51 by Harleen Holden NP) Within the past year, how often did you have a drink containing alcohol: never Score interpretation: A score less than 3 is consistent with normal alcohol consumption. Smoking status: Current every day smoker What tobacco products do you use: cigarettes Packs per day: 1 Years smoked: 18 Smoking pack-years: 18.00 Do you use any of these nicotine containing products: e-cigarettes and vaping products Nicotine containing products detail: quit smoking 11/04/2023 Non-prescribed substance use: cannabis (any form) Highest level of school completed/degree received: high school graduate Meds Home Medications and Allergies Home Medications ?Medication ?Instructions ?Recorded ?Confirmed ?Type albuterol sulfate 90 mcg/actuation 2 inh inhalation Q4H PRN 04/28/23 02/09/24 History aerosol inhaler bronchospasm isosorbide mononitrate 30 mg 30 mg PO DAILY 04/28/23 02/09/24 History tablet,extended release 24 hr sertraline 100 mg tablet 150 mg PO DAILY 04/28/23 02/09/24 History aspirin 81 mg tablet,delayed 81 mg PO BID 30 days #60 tabs 05/03/23 02/09/24 Rx release (Adult Low Dose Aspirin) cholecalciferol (vitamin D3) 125 125 mcg PO DAILY 90 days #90 caps 05/03/23 02/09/24 Rx mcg (5,000 unit) capsule ondansetron 4 mg disintegrating 4 mg PO Q8H PRN nausea and 05/03/23 02/09/24 Rx tablet vomiting 5 days #15 tabs aripiprazole 10 mg tablet 10 mg PO DAILY 02/09/24 02/09/24 History atorvastatin 40 mg tablet 40 mg PO DAILY 02/09/24 02/09/24 History buspirone 10 mg tablet 10 mg PO TID 02/09/24 02/09/24 History fluticasone fur. 100 mcg-umeclid 1 inh inhalation DAILY 02/09/24 02/09/24 History 62.5 mcg-vilant 25 mcg inhalat.powder (Trelegy Ellipta) gabapentin 600 mg tablet 600 mg PO BID 02/09/24 02/09/24 History ibuprofen 800 mg tablet 800 mg PO Q8H 02/09/24 02/09/24 History melatonin 10 mg tablet 10 mg PO DAILY 02/09/24 02/09/24 History meloxicam 15 mg tablet 15 mg PO DAILY 02/09/24 02/09/24 History mirtazapine 7.5 mg tablet 7.5 mg PO DAILY 02/09/24 02/09/24 History naloxone 4 mg/actuation nasal spray 4 mg intranasal Q3M PRN opioid 02/09/24 02/09/24 History overdose nicotine (polacrilex) 4 mg gum 4 mg buccal Q8H 02/09/24 02/09/24 History nicotine 21 mg/24 hr daily 1 patch transdermal Q24H 02/09/24 02/09/24 History transdermal patch omeprazole 20 mg capsule,delayed 20 mg PO DAILY 02/09/24 02/09/24 History release prazosin 2 mg capsule 2 mg PO QPM 02/09/24 02/09/24 History propranolol 10 mg tablet 10 mg PO Q12H 02/09/24 02/09/24 History propylene glycol (bulk) 99.5 % ea miscellaneous 02/09/24 History (not less than, SNF) liquid Allergies Allergy/AdvReac Type Severity Reaction Status Date / Time codeine Allergy Hives Verified 02/09/24 08:17 Exam Narrative Exam Narrative: Constitutional: Awake, alert, comfortable, well-appearing, nontoxic, interactive, vital signs as charted Head: Normocephalic, atraumatic Neck: Supple, normal appearance, normal range of motion, no meningeal signs, no lymphadenopathy Respiratory: No respiratory distress, breath sounds clear Cardiovascular: Regular rate and rhythm, strong and regular heart tones Abdomen: Nontender, normal bowel sounds, soft, no CVA tenderness Musculoskeletal: Normal gait, no swelling or edema Skin: No rashes or induration, no lesions, only visible skin inspected Neuro: No neurological deficits, normal sensation Psychiatric: Oriented ?3, normal affect Assessment and Plan Assessment and Plan (1) Stress incontinence: Plan TVT sling scheduled with Dr. Renae February 17, 2024.
[2024-02-09 08:58] LABS: Bilirubin Urine NEGATIVE (NEGATIVE); Blood Urine SMALL (NEGATIVE); Clarity Urine CLEAR (CLEAR); Color Urine YELLOW (YELLOW); Glucose Urine UA NEGATIVE (NEGATIVE); Ketones Urine NEGATIVE (NEGATIVE); Leukocyte Esterase Urine NEGATIVE (NEGATIVE); Nitrite Urine NEGATIVE (NEGATIVE); Protein Urine NEGATIVE (NEG/TRACE); Specific Gravity Urine 1.015 (1.005-1.025); Urobilinogen Urine 0.2 EU/dL (0.2-1.0); pH Urine 6.5 (5.0-9.0)
[2024-02-09 08:59] LABS: Anion Gap 12.9; BUN Creatinine Ratio 14.6; Carbon Dioxide 27.4 mmol/L (21.0-32.0); Chloride 107 mmol/L (98-107); Estimated GFR (African America >60 (>=60 mL/min/1.73m^2); Estimated GFR (Non-African Ame >60 (>=60 mL/min/1.73m^2); Glucose 102 mg/dL (74-106); Potassium 4.3 mmol/L (3.5-5.1); Sodium 143 mmol/L (136-145)
[2024-02-09 09:00] LABS: Urine Microscopic Indicated YES
[2024-02-09 09:05] LABS: INR 1.02; Partial Thromboplastin Time 27.5 sec (22.3-36.2); Prothrombin Time 10.8 sec (9.0-11.6)
[2024-02-09 09:07] LABS: Bacteria Urine TRACE #/HPF (NONE SEEN); Cast Seen? NONE SEEN #/LPF (NONE SEEN); Crystals Seen? None Seen #/HPF (None Seen); Mucus Urine NONE SEEN (NONE SEEN); Squamous Epithelial Cell Urine FEW #/LPF (NONE/RARE); Urine Culture Indicated NO; WBC Urine NONE SEEN #/HPF (NONE SEEN)
== END 2024-02-09 07:51 | disposition home or self-care (01) ==
LOC: PST 07:51
PROVIDERS: PCP Nurse Practitioner Family; Visit Provider Urology
DX: Z01.812 Encounter for preprocedural laboratory examination (principal); Z01.818 Encounter for other preprocedural examination; N39.3 Stress incontinence (female) (male)
CPT/HCPCS: 80048; 81001; 85025; 85610; 85730; G0463

== ENCOUNTER 2024-02-17 08:54 | Day surgery (SDC) | payer OTHER, SELFPAY ==
[2024-02-09 08:49] VITALS: BP 110/73; PULSE 71; TEMP 36.3; O2SAT 100; BMI 26.0
[2024-02-17] VITALS (9 sets, daily range): BP systolic 94–161; BP diastolic 60–92; PULSE 57–79; TEMP 36.1–36.4; O2SAT 94–99; BMI 25.7
[2024-02-17] MEDS: LACTATED RINGER'S SOLUTION 1,000 ML 50 ML IV (09:23)
[2024-02-17] MEDS: ALBUTEROL SULFATE 2.5 MG/3 ML VIAL NEB IH (10:51)
[2024-02-17] MEDS: CEFAZOLIN SODIUM 2 GM/50 ML D5W PREMIX IV (10:59)
[2024-02-17] MEDS: FAMOTIDINE/PF 20 MG/2 ML VIAL IV (11:00)
[2024-02-17] MEDS: LIDOCAINE HCL 1% 100 MG/10 ML MDV INJ (11:29)
[2024-02-17] MEDS: BACITRACIN OINTMENT 28.4 GM TUBE 1 APPLIC TOPICAL (12:10)
--- NOTE | 2024-02-17 12:15 | PM.URSON ---
Urology Surgery Operative Note Operative Note Procedure Date: 02/17/24 Time Out Performed: yes Pre-op Diagnosis: Stress urinary incontinence Post-op Diagnosis: same as pre-op Procedures performed: 1. Cystoscopy. 2. Mid urethral vaginal sling [employer] fit kit Anesthesia: General-LMA Primary Surgeon: Alexandro Renae Complications: None Estimated blood loss (mL): 10 Specimens: None Drains: None Indications for Procedures: This lady has significant stress urinary incontinence that is bothersome for her daily life. She is strongly desirous for attempted surgical correction of this problem. She has signed an informed consent for mid urethral vaginal sling after all risks were explained. She understands some of the risks to be bleeding, infection, anesthesia, persistent stress urinary incontinence, possible need for other operations just to name a few. Detailed description of Procedure: The patient was brought to the operating room and placed on the operating room table in the supine position. SCDs were placed on the lower extremities and turned on and functioning during the entire case. Timeout was done by all parties in the room. We all agreed upon the patient's identification and the planned procedures for this patient. Genn. anesthesia was then administered. The patient was then repositioned into the modified dorsal lithotomy position. All pressure points were satisfactorily padded. Genitalia were sterilely prepped and draped in usual fashion. I started by using 3-0 silk and achieving bilateral labial retraction. A Moss catheter was placed in the bladder. The bladder neck was palpated. I then used 1% plain lidocaine and infiltrated underneath the vaginal mucosa along the mid urethral aspect. A 15 blade scalpel was used to make a vertical 2 cm incision in the vaginal mucosa. Sharp dissecting scissors were used to dissect periurethrally under the vaginal mucosa and to the pubic rami bilaterally. I then passed the trocar from the [employer] fit kit. This was started on her right side underneath the her vaginal mucosa around her urethra and retropubically. It was then pushed up and out suprapubically. The sling was pulled up and clamped with a hemostat suprapubically. A similar maneuver was done on the left side. The Moss catheter was removed and a 22 [place] Olympus cystoscope was passed into the bladder. First a 70 degree lens was used and there was no evidence of any trocar or sling penetration through the bladder. The 30 degree lens was then used and there was similarly no piercing of the urethra from the trocar or sling. The Moss catheter was then replaced. We then brought the sling ends up and snugged the sling up to an 8 [place] Hegar dilator which was placed just under the urethra at the mid urethral aspect. The tension was adjusted.The protective sheath was Then released and removed bilaterally thus securing the sling in place. The sling ends suprapubically were cut flush with the skin. The dilator was removed. The sling was secured to the periurethral tissue with 4-0 Vicryl in an interrupted fashion. The vaginal mucosa was then closed over the sling with 4-0 Vicryl in a running fashion. Bacitracin soaked vaginal pack was placed. The labial retraction sutures were removed. The suprapubic punch sites were closed with 4-0 Vicryl in an interrupted fashion. The catheter was removed. Band-Aids were placed over the puncture sites. She was then transferred to a [facility] hospital bed and wheeled to PACU in stable condition. She will be discharged to home with a prescription for Keflex 500 twice daily for a week and ketorolac as needed. Urinary Catheter Management Urinary Catheter Management Urethral: Cath placed during this visit: no
== END 2024-02-17 13:20 | disposition home or self-care (01) ==
PROVIDERS: PCP Nurse Practitioner Family; Visit Provider Urology
PROC: (CPT 860; principal; 2024-02-17 10:30)
DX: N39.3 Stress incontinence (female) (male) (principal); I10 Essential (primary) hypertension; Z79.01 Long term (current) use of anticoagulants; J44.9 Chronic obstructive pulmonary disease, unspecified; I25.10 Atherosclerotic heart disease of native coronary artery without angina pectoris; F19.11 Other psychoactive substance abuse, in remission; F31.9 Bipolar disorder, unspecified; F41.9 Anxiety disorder, unspecified; Z90.710 Acquired absence of both cervix and uterus; F17.290 Nicotine dependence, other tobacco product, uncomplicated
CPT/HCPCS: 57288; 36415; 94640; 99406; C2631; J0690; J1100; J1885; J2250; J2405; J2704; J3010

== ENCOUNTER 2024-04-30 13:45 | Emergency (ER) | payer OTHER, SELFPAY ==
--- OUTSIDE RECORDS SUMMARY | 2024-04-30 14:01 | XMS_ITS | CCD ---
Author Organization [facility] CliniSyin Care Team Providers Care Medicare Sales Representative Name Role Phone None, No PCP Unavailable [...] Care Provider LEIGHANN Cruz Attending Pr ovider Anthony, Jes Kaur Admitting U navailable Cruz, Jes Kaur Primary Care U navailable Cruz, Jes Kaur Attending U navailable NO FAMILY, PHYSICIAN Primary Care Unavailable Cruz, Jes Kaur Attending U navailable Cruz, Jes Kaur Admitting U navailable Cruz, Jes Kaur Admitting U navailable Cruz, Jes Kaur Primary Care U navailable Cruz, Jes Kaur Attending U navailable Cruz, Jes Kaur Admitting U navailable Cruz, Jes Kaur Primary Care U navailable Cruz, Jes Kaur Attending U navailable Cruz, Jes Kaur Admitting U navailable Cruz, Jes Kaur Primary Care U navailable Cruz, Jes Kaur Attending U navailable Roosevelt Sotelo Attending Unavailable NONE, XXXX Referring Unavailable Roosevelt Sotelo Admitting Unavailable Alexandro PARTIDA Attending Unavailable PARTIDA, Alexandro Hernandez Attending Unavailable PARTIDA, Alexandro Hernandez Attending Unavailable PARTIDA, Alexandro Hernandez Attending Unavailable ELSA, JES Akhtar Attending Unavailable ELSA, JES Akhtar Attending Unavailable PARTIDA, Alexandro Hernandez Attending Unavailable PARTIDA, Alexandro Hernandez Attending Unavailable ELSA, JES Akhtar Attending Unavailable CRUZ, JES Falcon Referring Unavailab le Alexandro PARTIDA Attending Unavailable Roosevelt Sotelo Attending Unavailable NONE, XXXX Referring Unavailable PARTIDA, Alexandro Hernandez Attending Unavailable PARTIDA, Alexandro Hernandez Referring Unavailable PARTIDA, Alexandro Hernandez Admitting Unavailable Ramone Garcia Admitting Unavaila Ramone Hart Consulting Unavaila Ramone Hart Attending Unavaila Ramone Hart Referring Unavaila Ramone Hart Consulting Unavaila Ramone Hart Consulting Unavaila Roosevelt Mcdermott Attending Unavailable Roosevelt Sotelo Referring Unavailable Roosevelt Sotelo Admitting Unavailable JES ROLLE Admitting Unavailable JES ROLLE Attending Unavailable CHLOE CEBALLOS Referring Unavailable KATHY, LEÓN Referring Unavailable KATHY, LEÓN Referring Unavailable OVITTCHLOE Attending Unavailable KATHY, LEÓN Attending Unavailable KATHY, LEÓN Admitting Unavailable OVITT, CHLOE Attending Unavailable OVITT, CHLOE Attending Unavailable OVITT, CHLOE Attending Unavailable OVITT, CHLOE Referring Unavailable OVITT, CHLOE Referring Unavailable Unavailable Unavailable Unavailable Allergies Allergy Classification Reported Allergen(s) Allergy Type Date of Onset Reaction(s) Facility Opioid Agonists (1 source) Codeine; Translations: [codeine] Drug Allergy Eruption of skin present [facility] (20 sources) Codeine; Translations: [codeine] Drug Allergy 09-03-2012 hives, Eruption of skin present [facility] Medications Current Medications Medication Drug Class(es) Dates Sig (Normalized) Sig (Original) aspirin 81 mg delayed release oral tablet (20 sources) Platelet Aggregation Inhibitor, Nonsteroidal Anti-inflammatory Drug [...] Days Not-Taking atorvastatin 40 mg oral tablet (20 sources) HMG-CoA Reductase Inhibitor Start: 03-22-2023 take 1 tablet by mouth once daily atorvastatin 40 mg Tab 40 mg = 1 tab(s), Oral, Daily, # 30 tab(s), Refills(s) 3, Pharmacy: [facility] 1155, 164, cm, 03/22/23 13:24:00 EST, Height/Length Dosing, 64.7, kg, 03/22/23 13:24:00 EST, Weight Dosing Start Date: 03/22/23 Status: Ordered Start: 04-04-2021 take 20 mg by mouth once daily in the evening Atorvastatin Active 20 MG PO Every evening April 04, 2021 1:00am busPIRone hydrochloride 15 mg oral tablet (20 sources) Start: 01-17-2020 take 1 mg by [...] Not-Takin g clonazePAM 0.5 mg oral tablet (9 sources) Benzodiazepine Start: 03-22-2023 take 0.25 mg by mouth twice daily Klonopin 0.5 mg Tab 0.25 mg = 0.5 tab(s), Oral, BID, Refills(s) 0 Start Date: 03/22/23 Status: Ordered cyclobenzaprine hydrochloride 5 mg oral tablet (14 sources) Muscle Relaxant Start: 10-19-2019 End: 03-24-2021 [...] mg capsule Active 300 MG PO Daily 04 05May 26, 2021 1:00am Day one of therapy [...] 2019 12:00am October 19, 2019 12:57pm Motrin (19 sources) Nonsteroidal Anti-inflammatory Drug Start: 01-17-2020 take [...] mononitrate 30 mg extended release oral tablet (20 sources) Nitrate Vasodilator Start: 03-22-2023 take 1 tablet by mouth once daily in the morning isosorbide mononitrate 30 mg ER Tab 30 mg = 1 tab(s), Oral, qAM, # 30 tab(s), Refills(s) 3, Pharmacy: [facility] 1155, 164, cm, 03/22/23 13:24:00 EST, Height/Length Dosing, 64.7, kg, 03/22/23 13:24:00 EST, Weight Dosing Start Date: 03/22/23 Status: Ordered Start: 04-04-2021 take 60 mg by mouth once daily Isosorbide Mononitrate Active 60 MG PO Daily April 04, 2021 1:00am lamoTRIgine 25 mg chewable tablet (14 sources) Mood Stabilizer, Anti-epileptic Agent Start: 01-17-2020 [...] Dec, Active mirtazapine 7.5 mg oral tablet (8 sources) Start: 10-14-2023 take 1 tablet by mouth once daily mirtazapine 7.5 mg oral tablet 7.5 mg = 1 tab(s), Oral, Daily, Refills(s) 0 Start Date: 10/14/23 Status: Ordered naltrexone 380 mg injection (3 sources) Opioid Antagonist Start: 10-14-2023 Vivitrol 380 mg intramuscular injection, extended release Refills(s) 0 Start Date: 10/14/23 Status: Ordered nicotine 2 mg chewing gum (13 sources) Cholinergic Nicotinic Agonist Start: 10-14-2023 nicotine [...] not exceed 3 doses per episode olanzapine (19 sources) Atypical Antipsychotic Start: 01-17-2020 olanzap ine [...] Nocturia, # 60 tab(s), Refills(s) 3, Pharmacy: [facility] 1155, 165, cm, 01/17/20 11:18:00 EDT, Height/Length Dosing, 88, kg, 01/17/20 11:18:00 EDT, Weight Dosing Start Date: 02/08/20 Status: Ordered pantoprazole 40 mg extended release oral tablet (14 sources) Proton Pump Inhibitor Start: 01-17-2020 take 1 mg by mouth once daily pantoprazole 40 mg Oral EC Tab mg tab(s), Oral, Daily, Refills(s) 0 Start Date: 01/17/20 Status: Ordered Prazosin (17 sources) alpha-Adrenergic Humera Start: 01-17-2020 prazosin Oral, TID, Refills(s) 0 Start Date: 01/17/20 Status: Ordered Start: 10-19-2019 End: 03-24-2021 Prazosin Discontinued 1 MG P O As Directed October 19, 2019 12:00am March 24, 2021 4:09pm propranolol hydrochloride 10 mg oral tablet (8 sources) beta-Adrenergic Humera Start: 10-14-2023 propranolol 10 mg Tab Refills(s) 0 Start Date: 10/14/23 Status: Ordered sertraline 100 mg oral tablet (14 sources) Serotonin Reuptake Inhibitor Start: 03-22-2023 take 1 tablet by mouth once daily Zoloft 100 mg Tab 100 mg = 1 tab(s), Oral, Daily, # 30 tab(s), Refills(s) 0 Start Date: 03/22/23 Status: Ordered Vitamin D3 50,000 intl units oral capsule (12 sources) Start: 08-10-2023 Vitamin D3 50,000 intl units oral capsule 1,250 mcg = 1 cap(s) Start Date: 08/10/23 Status: Ordered Completed/Discontinued Medications Medication Drug Class(es) Dates Sig (Normalized) Sig (Original) [id number] 200 actuat albuterol 0.09 mg/actuat metered dose [...] # 2 tab(s), Refills(s) 0, Pharmacy: [facility] 1155, 164, cm, 08/10/23 9:37:00 EDT, Height/Length Dosing, 66, kg, 08/10/23 9:37:00 EDT, Weight Dosing Start Date: 08/20/23 Status: Ordered 24 hr dilTIAZem hydrochloride 180 mg extended release oral capsule (5 sources) Calcium Channel Humera Start: 06-24-2022 take 1 capsule by mouth once daily dilTIAZem HCl ER 180 MG Oral Capsule Extended Release 24 Hour TAKE 1 CAPSULE ONCE DAILY. Quantity: 90 Refills: 3 Ordered: 24-Jun-2022 Nadia Mancuso Start : 24-Jun-2022 Active Start: 06-02-2021 take 1 capsule by mo [facility] once daily dilTIAZem HCl ER [...] Date Documented Da te Episodic/Chronic Abdominal pain (17 sources) Abdominal pain; Translations: [Unspecified abdominal pain] Onset: 08-10-2023 01-17-2020 Episodic Adjustment disorders (3 sources) Complicated grieving; Translations: [Adjustment disorder with depressed mood] 01-06-2019 Chronic Adjustment disorders (1 source) Complicated grieving; Translations: [Complicated bereavement] Episodic Anxiety disorders (17 sources) Anxiety; Translations: [Anxiety disorder, unspecified] Onset: 06-09-2023 03-18-2023 Chronic Calculus of urinary tract (14 sources) History of calculus of kidney; Translations: [Personal history of urinary calculi] Onset: 08-10-2023 Episodic Cardiac dysrhythmias (8 sources) Palpitations; Translations: [Palpitations] Onset: 09-13-2023 Episodic Chronic obstructive pulmonary disease and bronchiectasis (3 sources) Chronic obstructive lung disease; Translations: [Chronic obstructive pulmonary disease, unspecified] 03-25-2021 Chronic Chronic obstructive pulmonary disease and bronchiectasis (1 source) Bronchitis, not specified as acute or chronic Episodic Coagulation and hemorrhagic disorders (2 sources) Spontaneous ecchymoses; Translations: [Spontaneous ecchymoses] Onset: 02-24-2024 Episodic Complication of device; implant or graft [...] Episodic Coronary atherosclerosis and other heart disease (20 sources) Coronary atherosclerosis; Translations: [Coronary atherosclerosis of [place] coronary artery] 04-03-2021 Chronic Disorders of lipid metabolism (6 sources) Mixed hyperlipidemia; Translations: [Mixed hyperlipidemia] Onset: 03-27-2024 Chronic Essential hypertension (20 sources) Benign hypertension; Translations: [Benign essential hypertension] Onset: 03-27-2024 03-18-2023 Chronic Genitourinary symptoms and ill-defined conditions (20 sources) Incontinence; Translations: [Urge incontinence of urine] Onset: 08-10-2023 01-17-2020 Chronic Genitourinary symptoms and ill-defined conditions (20 sources) Blood in urine; Translations: [Microscopic hematuria] Onset: 04-01-2023 01-17-2020 Episodic Headache; including migraine (1 source) Headache; including migraine; Translations: [Headache, unspecified] Onset: 09-18-2023 Mood disorders (20 sources) Major depressive disorder; Translations: [Major depressive disorder, single episode, unspecified] Onset: 06-09-2023 01-06-2019 Chronic Nonspecific chest pain (7 sources) Chest wall pain; Translations: [Other chest pain] Onset: 06-17-2022 05-26-2021 Episodic Nutritional deficiencies (1 source) Vitamin D deficiency, unspecified; Translations: [Vitamin D deficiency, unspecified] Onset: 03-27-2024 Chronic Other bone disease and musculoskeletal deformities (3 sources) Costal chondritis; Translations: [Tietze's disease] Episodic Other circulatory disease (5 sources) Cardiac function test normal; Translations: [Normal cardiac ejection fraction] Episodic Other diseases of bladder and urethra (1 source) Detrusor overactivity; Translations: [Overactive bladder] Onset: 10-14-2023 Chronic Other diseases of bladder and urethra (8 sources) Overactive bladder 10-14-2023 Chronic Other diseases of kidney and ureters (1 source) Acquired renal cyst without neoplastic change; Translations: [Cyst of kidney, acquired] Onset: 08-10-2023 Episodic Other diseases of kidney and ureters (12 sources) Cyst of kidney 08-10-2023 Episodic Other gastrointestinal disorders (2 sources) Diarrhea; Translations: [Diarrhea, unspecified] Episodic Other gastrointestinal disorders (2 sources) Drug induced constipation; Translations: [Drug induced constipation] Onset: 03-09-2024 Episodic Other nervous system disorders (1 source) Polyneuropathy, unspecified; Translations: [Polyneuropathy, unspecified] Onset: 12-02-2023 Chronic Other nervous system disorders (2 sources) Other chronic pain; Translations: [Other chronic pain] Onset: 02-24-2024 Chronic Other nervous system disorders (2 sources) Other acute postprocedural pain; Translations: [Other acute postprocedural pain] Onset: 03-23-2024 Episodic Other nutritional; endocrine; and metabolic disorders [...] Hallucinations Onset: 09-18-2023 Episodic Residual codes; unclassified (2 sources) Pain, unspecified; Translations: [Pain, unspecified] Onset: 03-09-2024 Episodic Spondylosis; intervertebral disc disorders; other back problems (1 source) Spondylosis without myelopathy or radiculopathy, lumbar region; Translations: [Spondylosis without myelopathy or radiculopathy, lumbar region] Onset: 12-02-2023 Chronic Spondylosis; intervertebral disc disorders; other back problems (20 sources) Low back pain; Translations: [Muscle spasm of back] Onset: 12-14-2023 02-08-2020 Episodic Substance-related disorders (20 sources) Polysubstance abuse ; Translations: [Smoker] Onset: 06-09-2023 01-06-2019 Chronic Comment on above: 1 pack per daily.; Added secondary to d ocumentation in Social History. Suicide and intentional self-inflicted injury (4 sources) Suicidal thoughts; Translations: [Suicidal ideations] 01-05-2019 Episodic Syncope (3 sources) Syncope and collapse; Translations: [Syncope and collapse] Onset: 09-13-2023 Episodic Unclassified (14 sources) Finding of sensation of bladder 02-08-2020 Unclassified (1 source) EMS Onset: 09-18-2023 Unclassified (2 sources) Low back pain, unspecified; Translations: [Low back pain, unspecified] Onset: 12-02-2023 Urinary tract infections (14 sources) Chronic interstitial cystitis 02-08-2020 Chronic Past or Other Problems Problem Classification Problem Date Documented Date Episodic/Chronic Chronic obstructive pulmonary disease and bronchiectasis (14 sources) Chronic obstructive pulmonary disease and bronchiectasis 03-18-2023 Nutritional deficiencies (1 source) Iron deficiency; Translations: [Iron deficiency] Onset: 06-09-2023 Episodic Other aftercare (1 source) 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; Translations: [Other penitentiary (current) drug therapy] Onset: 06-09-2023 Episodic Other nervous system disorders (2 sources) Paresthesia of skin; Translations: [Paresthesia of skin] Onset: 12-14-2023 Episodic Residual codes; unclassified (1 source) Flushing; Translations: [Flushing] Onset: 11-01-2023 Episodic Unclassified (1 source) Contact with and (suspected) exposure to covid-19 Z20.822 Unclassified (14 sources) Bipolar (qualifier value) 03-18-2023 Unclassified (1 source) Low back pain, unspecified; Translations: [Low back pain, unspecified] Onset: 03-09-2024 Results Test Name Value Interpretation Reference Range Facility 36on 04-20-2024 36 Called and spoke wit h patient notifying her that Chloe refilled her percocet and it will be the last time that she refills it. Notified her that Chloe put in a referral for pain management. I asked the patient to notify me who she would like to see that's near her and she will call me back with an answer. [facility] 36 Patient called write r asking if Chloe could prescribe the percocet to have enough until she see's Chloe next week. She states that she is not in pain until she is done with work. She also asked if a pain management referral could be placed for someone closer to home for her. Please advise. [facility] Orders Onlyon 04-20-2024 Orders Only [id number] Booker Craig 1970 F Date Provider Department Center 04/20/2024 CHLOE TOMLIN [facility] Second Fl Family History Problem Relation Age of Onset Coronary artery disease Mother Hypertension Mother Other Father Hypertension Father Other Daughter Comments: 05/2023 drug overdose Family Status - Relation Status Age at Mother Father Daughter [facility] 36on 04-13-2024 36 Patient is requestin g pain medication d/t the continuous pain she haves right side of back. She is scheduled to see pain medicine on 04/19/24. She can be reached at [phone]. Thank you This phone message was created by the Ambulatory [facility] staff. If you need administrative support associate follow up regarding this patient, please make your appropriate clinic staff member aware. Thank you. [facility] Orders Onlyon 04-13-2024 Orders Only [id number] King GeorgeBooker real kash Butts 1970 F Date Provider Department Center 04/13/2024 [id number] [facility] SUR[facility] Second Fl Family History Problem Relation Age of Onset Coronary artery disease Mother Hypertension Mother Other Father Hypertension Father Other Daughter Comments: 05/2023 drug overdose Family Status - Relation Status Age at Mother Father Daughter [facility] Patient Letter FTon 2024 Patient Letter [facility] [place] [facility] April 10, 2024 ISELA CRAIG [address] [place] [id number] : 1970 Dear Isela, You missed your scheduled appointment on: April 10, 2024. Please note our appointment slots fill quickly. When you fail to cancel or reschedule an appointment the office is unable to fill the appointment slot that was reserved for you. In the future, we ask that you call 24 hours in advance to cancel your appointment. Our current reminder system gives you the opportunity to cancel by responding to our reminder text, phone call or email. You can also call the office to reschedule during normal business hours or use our on-line scheduling portal at your convenience. Our goal is to provide convenient and quality care to all of our patients. We appreciate your consideration regarding any future cancellations. Sincerely, [facility] [address], [place] [address] [facility] Orders Onlyon 04-03-2024 Orders Only [id number] RafaBooker Butts 1970 F Date Provider Department Center 04/03/[address] [facility] Second Fl Family History Problem Relation Age of Onset Coronary artery disease Mother Hypertension Mother Other Father Hypertension Father Other Daughter Comments: 05/2023 drug overdose Family Status - Relation Status Age at Mother Father Daughter [facility] 36on 03-27-2024 36 Patient called back. She asked that her letter be mailed to her. 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 Notified patient that after today we would not be here till for if she has any issues. Patient understood. Nothing further. Normal [facility] 36 Lvm for patient to call back Normal [facility] Complete Blood Count Auto Di ffon 03-27-2024 Basophils (Bld) [#/Vol] 0.1 10*3/uL Normal 0.0-0.2 [facility] Comment on above: Order Comment: Reaso n for Exam Primary hypertension Result Comment: PERF ORMED BY: [facility] [address] [facility] [id number] PATHOLOGIST STONE RIGGER ОЛЬГА HULL M.D. Performed By: #### C BC, CUU, TSH3, URMACRERAT, T3F, LIPID, T4F, [id number], ADDONUAPLUS, CMP ####[address] Basophils/100 WBC (Bld) 1.3 % Normal . [facility] Comment on above: Order Comment: Reaso n for Exam Primary hypertension Performed By: #### C BC, CUU, TSH3, URMACRERAT, T3F, LIPID, T4F, [id number], ADDONUAPLUS, CMP ####[place] [id number] [place] Eosinophils (Bld) [#/Vol] 0.1 10*3/uL Normal 0.0-0.45 [facility] Comment on above: Order Comment: Reaso n for Exam Primary hypertension Performed By: #### C BC, CUU, TSH3, URMACRERAT, T3F, LIPID, T4F, [id number], ADDONUAPLUS, CMP ####[place] [id number] [place] Eosinophils/100 WBC (Bld) 1.0 % Normal . [facility] Comment on above: Order Comment: Reaso n for Exam Primary hypertension Performed By: #### C BC, CUU, TSH3, URMACRERAT, T3F, LIPID, T4F, [id number], ADDONUAPLUS, CMP ####[address] Erythrocyte distribution width (RBC) [Ratio] 13.3 % Normal 11.9-15.3 [facility] Comment on above: Order Comment: Reaso n for Exam Primary hypertension Performed By: #### C BC, CUU, TSH3, URMACRERAT, T3F, LIPID, T4F, [id number], ADDONUAPLUS, CMP ####[address] Hematocrit (Bld) [Volume fraction] 38.0 % Normal 34.0-46.4 [facility] Comment on above: Order Comment: Reaso n for Exam Primary hypertension Performed By: #### C BC, CUU, TSH3, URMACRERAT, T3F, LIPID, T4F, [id number], ADDONUAPLUS, CMP ####[address] Hemoglobin (Bld) [Mass/Vol] 12.6 g/dL Normal 11.8-15.4 [facility] Comment on above: Order Comment: Reaso n for Exam Primary hypertension Performed By: #### C BC, CUU, TSH3, URMACRERAT, T3F, LIPID, T4F, [id number], ADDONUAPLUS, CMP ####[address] Lymphocytes (Bld) [#/Vol] 1.7 10*3/uL Normal 1.00-4.8 [facility] Comment on above: Order Comment: Reaso n for Exam Primary hypertension Performed By: #### C BC, CUU, TSH3, URMACRERAT, T3F, LIPID, T4F, [id number], ADDONUAPLUS, CMP ####[address] Lymphocytes/100 WBC (Bld) 26.1 % Normal . [facility] Comment on above: Order Comment: Reaso n for Exam Primary hypertension Performed By: #### C BC, CUU, TSH3, URMACRERAT, T3F, LIPID, T4F, [id number], ADDONUAPLUS, CMP ####[address] MCH (RBC) [Entitic mass] 30.8 pg Normal 24.7-34.3 [facility] Comment on above: Order Comment: Reaso n for Exam Primary hypertension Performed By: #### C BC, CUU, TSH3, URMACRERAT, T3F, LIPID, T4F, [id number], ADDONUAPLUS, CMP ####[address] MCV (RBC) [Entitic vol] 93.0 fL Normal 80-100 [facility] Comment on above: Order Comment: Reaso n for Exam Primary hypertension Performed By: #### C BC, CUU, TSH3, URMACRERAT, T3F, LIPID, T4F, [id number], ADDONUAPLUS, CMP ####[address] Mean Corpuscular HGB Conc 33.1 g/dL Normal 32.0-35.0 [facility] Comment on above: Order Comment: Reaso n for Exam Primary hypertension Performed By: #### C BC, CUU, TSH3, URMACRERAT, T3F, LIPID, T4F, [id number], ADDONUAPLUS, CMP ####[address] Monocytes (Bld) [#/Vol] 0.7 10*3/uL Normal 0.0-0.8 [facility] Comment on above: Order Comment: Reaso n for Exam Primary hypertension Performed By: #### C BC, CUU, TSH3, URMACRERAT, T3F, LIPID, T4F, [id number], ADDONUAPLUS, CMP ####[address] Monocytes/100 WBC (Bld) 10.1 % Normal . [facility] Comment on above: Order Comment: Reaso n for Exam Primary hypertension Performed By: #### C BC, CUU, TSH3, URMACRERAT, T3F, LIPID, T4F, [id number], ADDONUAPLUS, CMP ####[address] Neutrophils (Bld) [#/Vol] 4.1 10*3/uL Normal 1.8-7.7 [facility] Comment on above: Order Comment: Reaso n for Exam Primary hypertension Performed By: #### C BC, CUU, TSH3, URMACRERAT, T3F, LIPID, T4F, [id number], ADDONUAPLUS, CMP ####[address] Neutrophils/100 WBC (Bld) 61.5 % Normal . [facility] Comment on above: Order Comment: Reaso n for Exam Primary hypertension Performed By: #### C BC, CUU, TSH3, URMACRERAT, T3F, LIPID, T4F, [id number], ADDONUAPLUS, CMP ####[address] NRBC% 0.1 /100{WBC} Normal 0-0.5 [facility] Comment on above: Order Comment: Reaso n for Exam Primary hypertension Performed By: #### C BC, CUU, TSH3, URMACRERAT, T3F, LIPID, T4F, [id number], ADDONUAPLUS, CMP ####[place] [id number] [facility] Platelet mean volume (Bld) [Entitic vol] 8.4 fL Normal 6.3-10.7 [facility] Comment on above: Order Comment: Reaso n for Exam Primary hypertension Performed By: #### C BC, CUU, TSH3, URMACRERAT, T3F, LIPID, T4F, [id number], ADDONUAPLUS, CMP ####[address] [place] [address] [facility] Platelets (Bld) [#/Vol] 460 10*3/uL High 150-450 [facility] Comment on above: Order Comment: Reaso n for Exam Primary hypertension Performed By: #### C BC, CUU, TSH3, URMACRERAT, T3F, LIPID, T4F, [id number], ADDONUAPLUS, CMP ####[place] [id number] [facility] RBC (Bld) [#/Vol] 4.09 10*6/uL Normal 3.60-5.00 [facility] Comment on above: Order Comment: Reaso n for Exam Primary hypertension Performed By: #### C BC, CUU, TSH3, URMACRERAT, T3F, LIPID, T4F, [id number], ADDONUAPLUS, CMP ####[place] [id number] [facility] WBC (Bld) [#/Vol] 6.6 10*3/uL Normal 3.8-11.6 [facility] Comment on above: Order Comment: Reaso n for Exam Primary hypertension Performed By: #### C BC, CUU, TSH3, URMACRERAT, T3F, LIPID, T4F, [id number], ADDONUAPLUS, CMP ####[address] [address] [facility] Comprehensive Metabolic Pane hema 03-27-2024 Albumin [Mass/Vol] 4.2 g/dL Normal 3.5-5.7 [facility] Comment on above: Order Comment: Reaso n for Exam Primary hypertension Reason for Exam Primary hypertension;Hypertriglyceridemia Reason for Exam Vitamin D deficiency Performed By: #### C BC, CUU, TSH3, URMACRERAT, T3F, LIPID, T4F, [id number], ADDONUAPLUS, CMP ####[address] [address] [facility] Albumin/Globulin [Mass ratio] 1.6 {ratio} Normal [facility] Comment on above: Order Comment: Reaso n for Exam Primary hypertension Reason for Exam Primary hypertension;Hypertriglyceridemia Reason for Exam Vitamin D deficiency Performed By: #### C BC, CUU, TSH3, URMACRERAT, T3F, LIPID, T4F, [id number], ADDONUAPLUS, CMP ####[facility] [address] [place] [address] [facility] ALP [Catalytic activity/Vol] 109 U/L High 34-104 [facility] Comment on above: Order Comment: Reaso n for Exam Primary hypertension Reason for Exam Primary hypertension;Hypertriglyceridemia Reason for Exam Vitamin D deficiency Performed By: #### C BC, CUU, TSH3, URMACRERAT, T3F, LIPID, T4F, [id number], ADDONUAPLUS, CMP ####[place] [address] [place] [id number] [facility] ALT [Catalytic activity/Vol] 28 U/L Normal 7-52 [facility] Comment on above: Order Comment: Reaso n for Exam Primary hypertension Reason for Exam Primary hypertension;Hypertriglyceridemia Reason for Exam Vitamin D deficiency Performed By: #### C BC, CUU, TSH3, URMACRERAT, T3F, LIPID, T4F, [id number], ADDONUAPLUS, CMP ####[place] [address] [place] [id number] [facility] Anion gap [Moles/Vol] 11.9 mmol/L Normal 6.0-15.0 [facility] Comment on above: Order Comment: Reaso n for Exam Primary hypertension Reason for Exam Primary hypertension;Hypertriglyceridemia Reason for Exam Vitamin D deficiency Performed By: #### C BC, CUU, TSH3, URMACRERAT, T3F, LIPID, T4F, [id number], ADDONUAPLUS, CMP ####[place] [address] [place] [address] [facility] AST [Catalytic activity/Vol] 24 U/L Normal 13-39 [facility] Comment on above: Order Comment: Reaso n for Exam Primary hypertension Reason for Exam Primary hypertension;Hypertriglyceridemia Reason for Exam Vitamin D deficiency Performed By: #### C BC, CUU, TSH3, URMACRERAT, T3F, LIPID, T4F, [id number], ADDONUAPLUS, CMP ####[place] [address] [place] [address] [facility] Bilirubin [Mass/Vol] 0.4 mg/dL Normal 0.3-1.0 [facility] Comment on above: Order Comment: Reaso n for Exam Primary hypertension Reason for Exam Primary hypertension;Hypertriglyceridemia Reason for Exam Vitamin D deficiency Performed By: #### C BC, CUU, TSH3, URMACRERAT, T3F, LIPID, T4F, [id number], ADDONUAPLUS, CMP ####[place] [address] [place] [address] [facility] Calcium [Mass/Vol] 9.6 mg/dL Normal 8.6-10.3 [facility] Comment on above: Order Comment: Reaso n for Exam Primary hypertension Reason for Exam Primary hypertension;Hypertriglyceridemia Reason for Exam Vitamin D deficiency Performed By: #### C BC, CUU, TSH3, URMACRERAT, T3F, LIPID, T4F, [id number], ADDONUAPLUS, CMP ####[place] [address] [place] [address] [facility] Chloride [Moles/Vol] 103 mmol/L Normal 98-107 [facility] Comment on above: Order Comment: Reaso n for Exam Primary hypertension Reason for Exam Primary hypertension;Hypertriglyceridemia Reason for Exam Vitamin D deficiency Performed By: #### C BC, CUU, TSH3, URMACRERAT, T3F, LIPID, T4F, [id number], ADDONUAPLUS, CMP ####[address] [address] [facility] CO2 [Moles/Vol] 29.8 mmol/L Normal 21.0-31.0 [facility] Comment on above: Order Comment: Reaso n for Exam Primary hypertension Reason for Exam Primary hypertension;Hypertriglyceridemia Reason for Exam Vitamin D deficiency Performed By: #### C BC, CUU, TSH3, URMACRERAT, T3F, LIPID, T4F, [id number], ADDONUAPLUS, CMP ####[address] [address] [facility] Creatinine [Mass/Vol] 0.79 mg/dL Normal 0.60-1.20 [facility] Comment on above: Order Comment: Reaso n for Exam Primary hypertension Reason for Exam Primary hypertension;Hypertriglyceridemia Reason for Exam Vitamin D deficiency Performed By: #### C BC, CUU, TSH3, URMACRERAT, T3F, LIPID, T4F, [id number], ADDONUAPLUS, CMP ####[place] [address] [place] [address] [facility] GFR/1.73 sq M.predicted MDRD (S/P/Bld) [Vol rate/Area] mL/min/{1.73_m2} Normal [facility] Comment on above: Order Comment: Reaso n for Exam Primary hypertension Reason for Exam Primary hypertension;Hypertriglyceridemia Reason for Exam Vitamin D deficiency Performed By: #### C BC, CUU, TSH3, URMACRERAT, T3F, LIPID, T4F, [id number], ADDONUAPLUS, CMP ####[place] [address] [place] [address] [facility] Globulin (S) [Mass/Vol] 2.7 g/dL Normal [facility] Comment on above: Order Comment: Reaso n for Exam Primary hypertension Reason for Exam Primary hypertension;Hypertriglyceridemia Reason for Exam Vitamin D deficiency Performed By: #### C BC, CUU, TSH3, URMACRERAT, T3F, LIPID, T4F, [id number], ADDONUAPLUS, CMP ####[place] [address] [place] [address] [facility] Glucose [Mass/Vol] 98 mg/dL Normal 70-100 [facility] Comment on above: Order Comment: Reaso n for Exam Primary hypertension Reason for Exam Primary hypertension;Hypertriglyceridemia Reason for Exam Vitamin D deficiency Result Comment: [facility] Glucose Reference Range is dependent on time and content of last meal. Glucose of more than 200 mg/dL in a nonstressed, ambulatory subject supports the diagnosis of Diabetes Mellitus. ADA recommended reference range Performed By: #### C BC, CUU, TSH3, URMACRERAT, T3F, LIPID, T4F, [id number], ADDONUAPLUS, CMP ####[place] [address] [place] [address] [facility] Potassium [Moles/Vol] 4.7 mmol/L Normal 3.5-5.1 [facility] Comment on above: Order Comment: Reaso n for Exam Primary hypertension Reason for Exam Primary hypertension;Hypertriglyceridemia Reason for Exam Vitamin D deficiency Performed By: #### C BC, CUU, TSH3, URMACRERAT, T3F, LIPID, T4F, [id number], ADDONUAPLUS, CMP ####[place] [address] [place] [address] [facility] Protein [Mass/Vol] 6.9 g/dL Normal 6.4-8.9 [facility] Comment on above: Order Comment: Reaso n for Exam Primary hypertension Reason for Exam Primary hypertension;Hypertriglyceridemia Reason for Exam Vitamin D deficiency Performed By: #### C BC, CUU, TSH3, URMACRERAT, T3F, LIPID, T4F, [id number], ADDONUAPLUS, CMP ####[place] [address] [place] [address] [facility] Sodium [Moles/Vol] 140 mmol/L Normal 136-145 [facility] Comment on above: Order Comment: Reaso n for Exam Primary hypertension Reason for Exam Primary hypertension;Hypertriglyceridemia Reason for Exam Vitamin D deficiency Performed By: #### C BC, CUU, TSH3, URMACRERAT, T3F, LIPID, T4F, [id number], ADDONUAPLUS, CMP ####[place] [address] [place] [address] [facility] Urea nitrogen [Mass/Vol] 12 mg/dL Normal 7-25 [facility] Comment on above: Order Comment: Reaso n for Exam Primary hypertension Reason for Exam Primary hypertension;Hypertriglyceridemia Reason for Exam Vitamin D deficiency Performed By: #### C BC, CUU, TSH3, URMACRERAT, T3F, LIPID, T4F, [id number], ADDONUAPLUS, CMP ####[facility] [place] [address] [facility] Dipstick and Microscopicon 1 05-28-2023 Appearance (U) Clear Normal Clear [facility] Comment on above: Order Comment: Reaso n for Exam Urinary frequency Name Collection Type:: Voided Performed By: #### C BC, CUU, TSH3, URMACRERAT, T3F, LIPID, T4F, [id number], ADDONUAPLUS, CMP ####[address] [address] [facility] Bacteria,Urine Rare Normal None Seen [facility] Comment on above: Order Comment: Reaso n for Exam Urinary frequency Name Collection Type:: Voided Performed By: #### C BC, CUU, TSH3, URMACRERAT, T3F, LIPID, T4F, [id number], ADDONUAPLUS, CMP ####[address] [address] [facility] Bilirubin,Urine Negative Normal Negative [facility] Comment on above: Order Comment: Reaso n for Exam Urinary frequency Name Collection Type:: Voided Performed By: #### C BC, CUU, TSH3, URMACRERAT, T3F, LIPID, T4F, [id number], ADDONUAPLUS, CMP ####[address] [address] [facility] Color (U) Yellow Normal Yellow [facility] Comment on above: Order Comment: Reaso n for Exam Urinary frequency Name Collection Type:: Voided Performed By: #### C BC, CUU, TSH3, URMACRERAT, T3F, LIPID, T4F, [id number], ADDONUAPLUS, CMP ####[address] [address] [facility] Glucose Ql (U) Normal Normal Normal [facility] Comment on above: Order Comment: Reaso n for Exam Urinary frequency Name Collection Type:: Voided Performed By: #### C BC, CUU, TSH3, URMACRERAT, T3F, LIPID, T4F, [id number], ADDONUAPLUS, CMP ####[address] [address] [facility] Hyaline Casts,Urine None Normal 0-8 [facility] Comment on above: Order Comment: Reaso n for Exam Urinary frequency Name Collection Type:: Voided Performed By: #### C BC, CUU, TSH3, URMACRERAT, T3F, LIPID, T4F, [id number], ADDONUAPLUS, CMP ####[place] [id number] [facility] Ketones Ql (U) Negative Normal Negative [facility] Comment on above: Order Comment: Reaso n for Exam Urinary frequency Name Collection Type:: Voided Performed By: #### C BC, CUU, TSH3, URMACRERAT, T3F, LIPID, T4F, [id number], ADDONUAPLUS, CMP ####[address] Leukocyte esterase Test strip Ql (U) 2+ High Negative [facility] Comment on above: Order Comment: Reaso n for Exam Urinary frequency Name Collection Type:: Voided Performed By: #### C BC, CUU, TSH3, URMACRERAT, T3F, LIPID, T4F, [id number], ADDONUAPLUS, CMP ####[address] Mucus,Urine 2+ Critically abnormal [facility] Comment on above: Order Comment: Reaso n for Exam Urinary frequency Name Collection Type:: Voided Result Comment: PERF ORMED BY: [facility] [address] [place] [address] PATHOLOGIST STONE RIGGER ОЛЬГА HULL M.D. Performed By: #### C BC, CUU, TSH3, URMACRERAT, T3F, LIPID, T4F, [id number], ADDONUAPLUS, CMP ####[place] [id number] [facility] Nitrite,Urine Negative Normal Negative [facility] Comment on above: Order Comment: Reaso n for Exam Urinary frequency Name Collection Type:: Voided Performed By: #### C BC, CUU, TSH3, URMACRERAT, T3F, LIPID, T4F, [id number], ADDONUAPLUS, CMP ####[place] [id number] [facility] Occult Blood,Urine Trace High Negative [facility] Comment on above: Order Comment: Reaso n for Exam Urinary frequency Name Collection Type:: Voided Result Comment: PERF ORMED BY: [facility] [place] [id number] PATHOLOGIST STONE RIGGER ОЛЬГА HULL M.D. Performed By: #### C BC, CUU, TSH3, URMACRERAT, T3F, LIPID, T4F, [id number], ADDONUAPLUS, CMP ####[place] [id number] [facility] pH (U) 6.0 [pH] Normal 5.0-9.0 [facility] Comment on above: Order Comment: Reaso n for Exam Urinary frequency Name Collection Type:: Voided Performed By: #### C BC, CUU, TSH3, URMACRERAT, T3F, LIPID, T4F, [id number], ADDONUAPLUS, CMP ####[address] Protein,Urine Negative Normal Negative [facility] Comment on above: Order Comment: Reaso n for Exam Urinary frequency Name Collection Type:: Voided Performed By: #### C BC, CUU, TSH3, URMACRERAT, T3F, LIPID, T4F, [id number], ADDONUAPLUS, CMP ####[address] RBC,Urine 1 [HPF] Normal 0-4 [facility] Comment on above: Order Comment: Reaso n for Exam Urinary frequency Name Collection Type:: Voided Performed By: #### C BC, CUU, TSH3, URMACRERAT, T3F, LIPID, T4F, [id number], ADDONUAPLUS, CMP ####[place] [id number] [facility] Specificy [place],Urine 1.020 Normal 1.001-1.030 [facility] Comment on above: Order Comment: Reaso n for Exam Urinary frequency Name Collection Type:: Voided Performed By: #### C BC, CUU, TSH3, URMACRERAT, T3F, LIPID, T4F, [id number], ADDONUAPLUS, CMP ####[address] Squamous Epithelial Cell,Urine 3 [HPF] High 0-2 [facility] Comment on above: Order Comment: Reaso n for Exam Urinary frequency Name Collection Type:: Voided Performed By: #### C BC, CUU, TSH3, URMACRERAT, T3F, LIPID, T4F, [id number], ADDONUAPLUS, CMP ####[address] Urobilinogen,Urine Normal Normal Normal [facility] Comment on above: Order Comment: Reaso n for Exam Urinary frequency Name Collection Type:: Voided Performed By: #### C BC, CUU, TSH3, URMACRERAT, T3F, LIPID, T4F, [id number], ADDONUAPLUS, CMP ####[address] WBC,Urine 3 [HPF] Normal 0-4 [facility] Comment on above: Order Comment: Reaso n for Exam Urinary frequency Name Collection Type:: Voided Performed By: #### C BC, CUU, TSH3, URMACRERAT, T3F, LIPID, T4F, [id number], ADDONUAPLUS, CMP ####[place] [id number] [facility] Free T4 (Free Thyroxine)on 05-28-2023 Free T4 [Mass/Vol] 0.82 ng/dL Normal 0.61-1.12 [facility] Comment on above: Order Comment: Reaso n for Exam Primary hypertension Reason for Exam Primary hypertension;Hypertriglyceridemia Reason for Exam Vitamin D deficiency Performed By: #### C BC, CUU, TSH3, URMACRERAT, T3F, LIPID, T4F, [id number], ADDONUAPLUS, CMP ####[address] Letter (Out)on 03-27-2024 Letter (Out) [id number] [place] 1970 F Date Provider Department Center 03/27/2024 [facility] [place] [facility] SURG Second Fl Family History Problem Relation Age of Onset Coronary artery disease Mother Hypertension Mother Other Father Hypertension Father Other Daughter Comments: 05/2023 drug overdose Family Status - Relation Status Age at Mother Father Daughter Normal [facility] Lipid Panelon 03-27-2024 Cholesterol [Mass/Vol] 141 mg/dL Normal 140-200 [facility] Comment on above: Order Comment: Reaso n for Exam Primary hypertension Reason for Exam Primary hypertension;Hypertriglyceridemia Reason for Exam Vitamin D deficiency Result Comment: Chol less than 200 mg/dl low risk Chol 201-239 mg/dl borderline risk Chol 240 mg/dl and greater high risk Performed By: #### C BC, CUU, TSH3, URMACRERAT, T3F, LIPID, T4F, [id number], ADDONUAPLUS, CMP ####[address] Cholesterol in HDL [Mass/Vol] 36 mg/dL Normal 23-92 [facility] Comment on above: Order Comment: Reaso n for Exam Primary hypertension Reason for Exam Primary hypertension;Hypertriglyceridemia Reason for Exam Vitamin D deficiency Result Comment: HDL CHOL ATP-III CLASSIFICATION Cardiovascular Risk HDL > or equal to 60 mg/dL LOW HDL < 40 mg/dL HIGH Performed By: #### C BC, CUU, TSH3, URMACRERAT, T3F, LIPID, T4F, [id number], ADDONUAPLUS, CMP ####[address] [address] [facility] Cholesterol.total/Chol esterol in HDL [Mass ratio] 3.9 {ratio} Normal <5.0 [facility] Comment on above: Order Comment: Reaso n for Exam Primary hypertension Reason for Exam Primary hypertension;Hypertriglyceridemia Reason for Exam Vitamin D deficiency Performed By: #### C BC, CUU, TSH3, URMACRERAT, T3F, LIPID, T4F, [id number], ADDONUAPLUS, CMP ####[place] [address] LDL Cholesterol,Calculated 78 mg/dL Normal 0-100 [facility] Comment on above: Order Comment: Reaso n for Exam Primary hypertension Reason for Exam Primary hypertension;Hypertriglyceridemia Reason for Exam Vitamin D deficiency Result Comment: LDL ATP III CLASSIFICATION LDL less than 100 mg/dL Optimal LDL 100-129 mg/dL Near or above optimal LDL 130-159 mg/dL Borderline high LDL 160-189 mg/dL High LDL greater than 189 mg/dL Very high Performed By: #### C BC, CUU, TSH3, URMACRERAT, T3F, LIPID, T4F, [id number], ADDONUAPLUS, CMP ####[facility] Triglyceride w/Reflex 136 mg/dL Normal 0-149 [facility] Comment on above: Order Comment: Reaso n for Exam Primary hypertension Reason for Exam Primary hypertension;Hypertriglyceridemia Reason for Exam Vitamin D deficiency Result Comment: TRIG ATP III CLASSIFICATION TRIG less than 150 mg/dL Normal TRIG 150-199 mg/dL Borderline high TRIG 200-500 mg/dL High TRIG greater than 500 mg/dL Very high Standard traceable to the Center for Disease Conrtrol and Prevention (CDC) test method. Performed By: #### C BC, CUU, TSH3, URMACRERAT, T3F, LIPID, T4F, [id number], ADDONUAPLUS, CMP ####[place] [address] [place] [id number] [facility] VLDL CHOLESTEROL 27 mg/dL Normal [facility] Comment on above: Order Comment: Reaso n for Exam Primary hypertension Reason for Exam Primary hypertension;Hypertriglyceridemia Reason for Exam Vitamin D deficiency Performed By: #### C BC, CUU, TSH3, URMACRERAT, T3F, LIPID, T4F, [id number], ADDONUAPLUS, CMP ####[facility] [place] [id number] [facility] MicroAlb Creat Ratio,Uon Albumin DL <= 20 mg/L (U) [Mass/Vol] 0.8 mg/dL Normal 0.0-1.8 [facility] Comment on above: Order Comment: Reaso n for Exam Urinary frequency;Primary hypertension Performed By: #### C BC, CUU, TSH3, URMACRERAT, T3F, LIPID, T4F, [id number], ADDONUAPLUS, CMP ####[place] [address] [place] [id number] [facility] Creatinine, Urine (Random) 177.00 mg/dL Normal [facility] Comment on above: Order Comment: Reaso n for Exam Urinary frequency;Primary hypertension Result Comment: No r eference range established Performed By: #### C BC, CUU, TSH3, URMACRERAT, T3F, LIPID, T4F, [id number], ADDONUAPLUS, CMP ####[place] [address] [place] [address] [facility] Microalbumin/Creatinin e Ratio 4.5 mg/g Normal 0.0-30.0 [facility] Comment on above: Order Comment: Reaso n for Exam Urinary frequency;Primary hypertension Result Comment: 30-3 00 mg/g indicates an increased risk for diabetic nephropathy. Greater than 300 mg/g is consistent with clinical nephropathy. (Am. J. Kidney Disease 1995, 25:107) PERFORMED BY: [facility] [address] [facility] [place] [id number] PATHOLOGIST STONE RIGGER ОЛЬГА HULL M.D. Performed By: #### C BC, CUU, TSH3, URMACRERAT, T3F, LIPID, T4F, [id number], ADDONUAPLUS, CMP ####[place] [address] [place] [address] [facility] Orders Onlyon 03-27-2024 Orders Only [id number] Booker [place] 1970 F Date Provider Department Center 03/27/2024 [facility] [place] [facility] SURG Second Fl Family History Problem Relation Age of Onset Coronary artery disease Mother Hypertension Mother Other Father Hypertension Father Other Daughter Comments: 05/2023 drug overdose Family Status - Relation Status Age at Mother Father Daughter Normal [facility] Thyroid Stimulating Hormoneo n 03-27-2024 TSH Qn 0.78 m[IU]/L Normal 0.45-5.33 [facility] Comment on above: Order Comment: Reaso n for Exam Primary hypertension Reason for Exam Primary hypertension;Hypertriglyceridemia Reason for Exam Vitamin D deficiency Performed By: #### C BC, CUU, TSH3, URMACRERAT, T3F, LIPID, T4F, [id number], ADDONUAPLUS, CMP ####[address] [address] [facility] Triiodothyronine (T3) Freeon 03-27-2024 Triiodothyronine (T3) Free 3.27 pg/mL Normal 2.50-3.90 [facility] Comment on above: Order Comment: Reaso n for Exam Primary hypertension Result Comment: PERF ORMED BY: [address] [place] [address] PATHOLOGIST STONE RIGGER ОЛЬГА HULL M.D. Performed By: #### C BC, CUU, TSH3, URMACRERAT, T3F, LIPID, T4F, [id number], ADDONUAPLUS, CMP ####[address] [address] [facility] Urine Cultureon 03-27-2024 Bacteria identified Cx Nom (U) Reason for Exam Urinary frequency Urine No Growth 2 Days PERFORMED BY: [address] [place] [address] PATHOLOGIST STONE RIGGER ОЛЬГА HULL M.D. Normal [facility] Comment on above: Performed By: #### C BC, CUU, TSH3, URMACRERAT, T3F, LIPID, T4F, [id number], ADDONUAPLUS, CMP ####[address] [address] [facility] Vitamin D 25 Hydroxy Totalon 03-27-2024 Vitamin D 25 Hydroxy Total 30.0 ng/mL Normal 30-100 [facility] Comment on above: Order Comment: Reaso n for Exam Primary hypertension Reason for Exam Primary hypertension;Hypertriglyceridemia Reason for Exam Vitamin D deficiency Result Comment: IDRIS MIN D STATUS 25(OH)VITAMIN D RANGE (ng/mL) Deficient <20 Insufficient 20 to <30 Sufficient 30 to 100 Reference: Baron FA[employer] [place], Abdiel MAXWELL, et al. Evaluation,treatment, and prevention of vitamin D deficiency; an Endocrine Society clinical practice guideline. JCEM. 2010; 96(7):1911-30. PERFORMED BY: [facility] [address] [place] [address] PATHOLOGIST STONE RIGGER ОЛЬГА HULL M.D. Performed By: #### C BC, CUU, TSH3, URMACRERAT, T3F, LIPID, T4F, [id number], ADDONUAPLUS, CMP ####[facility] [address] [place] [address] [facility] Office Visiton 03-23-2024 Follow-up visit [id number] Booker Craig 1970 F Date Provider Department Center 03/23/[address] [facility] SURG Second Fl Family History Problem Relation Age of Onset Coronary artery disease Mother Hypertension Mother Other Father Hypertension Father Other Daughter Comments: 05/2023 drug overdose Family Status - Relation Status Age at Mother Father Daughter Level of Service:43465 SD POSTOP FOLLOW UP VISIT RELATED TO ORIGINAL PX Reason for Visit and Comments: Post-op [483] - Patient is here today for a post op appt Removal of hardware L4-S1--screws and rods Normal [facility] Orders Onlyon 03-17-2024 Orders Only [id number] Booker Craig 1970 F Date Provider Department Center 03/17/2024 LEÓN FU[place] [facility] SURG Second Fl Family History Problem Relation Age of Onset Coronary artery disease Mother Hypertension Mother Other Father Hypertension Father Other Daughter Comments: 05/2023 drug overdose Family Status - Relation Status Age at Mother Father Daughter Normal [facility] Refillon 03-16-2024 Refill [id number] Booker Craig 1970 Date Provider Department Center 03/16/[address] [facility] 6AB None Family History Problem Relation Age of Onset Coronary artery disease Mother Hypertension Mother Other Father Hypertension Father Other Daughter Comments: 05/2023 drug overdose Family Status - Relation Status Age at Mother Father Daughter Reason for Visit and Comments: Med Refill [[id number]] Normal [facility] 30on 03-10-2024 30 Face to face for shower chair and raised toilet seat: Needs shower chair and raised toilet seat due to safety deficits with mobility related activities of daily living. Deficits can be safely resolved with use of this durable medical equipment. Prescriptions were provided. Length of need: 99 months. Height: 165.1 cm. Weight: 70.7 kg. Normal [facility] BASIC METABOLIC PANELon 12-0 Anion gap [Moles/Vol] 10 mmol/L Normal 7-20 [facility] Comment on above: Performed By: #### L [id number] ####[facility] ([facility])[address] [place] [address] Calcium [Mass/Vol] 8.6 mg/dL Normal 8.6-10.3 [facility] Comment on above: Performed By: #### L [id number] ####[facility] ([facility])[address] [place] [address] Chloride [Moles/Vol] 108 mmol/L High 98-107 [facility] Comment on above: Performed By: #### L [id number] ####[facility] ([facility])[address] [place] [address] CO2 [Moles/Vol] 27 mmol/L Normal 21-31 [facility] Comment on above: Performed By: #### L [id number] ####[facility] ([facility])[address] [place] [address] Creatinine [Mass/Vol] 0.81 mg/dL Normal 0.60-1.20 [facility] Comment on above: Performed By: #### L [id number] ####[facility] ([facility])[address] [place] [address] GLOMERULAR FILTRATION RATE ML/MIN/1.73 SQ M.PREDICTED 87.3 mL/min/1.73m*2 Normal >60.0 [facility] Comment on above: Result Comment: The [facility]???s estimated glomerular filtration rate (eGFR) will no longer include consideration of race in its calculation. The National Kidney Foundation???s eGFR Task Force developed new recommendations for the estimation of the glomerular filtration rate in the [place] They recommend immediate implementation of the new equation refit without the race variable in all laboratories because the calculation does not include race. In addition to not including race in the calculation and reporting, it included diversity in its development, and has acceptable performance characteristics and potential consequences that do not disproportionately affect any one group of individuals. Performed By: #### L [id number] ####[facility] ([facility])[address] [place] [address] Glucose [Mass/Vol] 103 mg/dL High 70-100 [facility] Comment on above: Performed By: #### L [id number] ####[facility] ([facility])[address] [place] [address] Potassium [Moles/Vol] 3.8 mmol/L Normal 3.5-5.1 [facility] Comment on above: Performed By: #### L [id number] ####[facility] ([facility])[address] [place] [address] Sodium [Moles/Vol] 141 mmol/L Normal 136-145 [facility] Comment on above: Performed By: #### L [id number] ####[facility] ([facility])[address] [place] [address] Urea nitrogen [Mass/Vol] 8 mg/dL Normal 7-25 [facility] Comment on above: Performed By: #### L [id number] ####[facility] ([facility])[address] [place] [address] UREA NITROGEN/CREATININE (MASS RATIO) IN SER/PLAS 9.9 Normal [facility] Comment on above: Performed By: #### L [id number] ####[facility] ([facility])[address] [place] [address] CBC WITH AUTO DIFFERENTIALon 03-10-2024 Basophils (Bld) [#/Vol] 0.01 10*3/uL Normal 0.00-0.20 [facility] Comment on above: Performed By: #### L [id number] ####[facility] (BE[facility]ER)[address] [place] [address] Basophils/100 WBC (Bld) 0.1 % Normal 0.0-1.0 [facility] Comment on above: Performed By: #### L [id number] ####[facility] ([facility]ER)[address] [place] [address] Eosinophils (Bld) [#/Vol] 0.21 10*3/uL Normal 0.00-0.50 [facility] Comment on above: Performed By: #### L [id number] ####[facility] ([facility])[address] [place] [address] Eosinophils/100 WBC (Bld) 2.9 % Normal 0.0-6.0 [facility] Comment on above: Performed By: #### L [id number] ####[facility] ([facility])[address] [place] [address] Erythrocyte distribution width (RBC) [Ratio] 13.7 % Normal 11.5-15.0 [facility] Comment on above: Performed By: #### L [id number] ####[facility] ([facility])[address] [place] [address] ERYTHROCYTE MEAN CORPUSCULAR HEMOGLOBIN CONCENTRATION (G/DL) BY AUTOMATED 33.3 g/dL Normal 32.0-35.0 [facility] Comment on above: Performed By: #### L [id number] ####[facility] ([facility])[address] [place] [address] Hematocrit (Bld) [Volume fraction] 35.7 % Low 36.0-48.0 [facility] Comment on above: Performed By: #### L [id number] ####[facility] ([facility])[address] [place] [address] Hemoglobin (Bld) [Mass/Vol] 11.9 g/dL Low 12.0-15.0 [facility] Comment on above: Performed By: #### L [id number] ####[facility] ([facility])[address] [place] [address] Immature granulocytes (Bld) [#/Vol] 0.02 10*3/uL Normal 0.00-0.20 [facility] Comment on above: Performed By: #### L [id number] ####[facility] ([facility])[address] [place] [address] Immature granulocytes/100 WBC (Bld) 0.3 % Normal 0.0-1.0 [facility] Comment on above: Performed By: #### L [id number] ####[facility] ([facility])[address] [place] [address] Lymphocytes (Bld) [#/Vol] 0.74 10*3/uL Low 1.20-4.00 [facility] Comment on above: Performed By: #### L [id number] ####[facility] ([facility])[address] [place] [address] Lymphocytes/100 WBC (Bld) 10.3 % Low 20.0-45.0 [facility] Comment on above: Performed By: #### L [id number] ####[facility] ([facility])[address] [place] [address] MCH (RBC) [Entitic mass] 30.7 pg Normal 27.0-33.0 [facility] Comment on above: Performed By: #### L [id number] ####[facility] ([facility])[address] [place] [address] MCV (RBC) [Entitic vol] 92.2 fL Normal 82.0-98.0 [facility] Comment on above: Performed By: #### L [id number] ####[facility] ([facility])[address] [place] [address] Monocytes (Bld) [#/Vol] 1.01 10*3/uL High 0.10-1.00 [facility] Comment on above: Performed By: #### L [id number] ####[facility] ([facility])[address] [place] [address] Monocytes/100 WBC (Bld) 14.0 % High 5.0-12.0 [facility] Comment on above: Performed By: #### L [id number] ####[facility] ([facility])[address] [place] [address] Neutrophils (Bld) [#/Vol] 5.22 10*3/uL Normal 1.60-7.60 [facility] Comment on above: Performed By: #### L [id number] ####[facility] ([facility])[address] [place] [address] Neutrophils/100 WBC (Bld) 72.4 % High 40.0-72.0 [facility] Comment on above: Performed By: #### L [id number] ####[facility] ([facility])[address] [place] [address] NRBC (PER 100 WBCS) BY AUTOMATED COUNT 0.0 % Normal 0 [facility] Comment on above: Performed By: #### L [id number] ####[facility] ([facility])[address] [place] [address] PLATELETS (10*3/UL) IN BLOOD AUTOMATED COUNT 228 10*3/uL Normal 150-400 [facility] Comment on above: Performed By: #### L [id number] ####[facility] ([facility])[address] [place] [address] RBC (Bld) [#/Vol] 3.87 10*6/uL Normal 3.80-5.00 [facility] Comment on above: Performed By: #### L [id number] ####[facility] ([facility])[address] [place] [address] WBC (Bld) [#/Vol] 7.21 10*3/uL Normal 4.00-10.60 [facility] Comment on above: Performed By: #### L [id number] ####[facility] ([facility]AKER)[address] [place] [address] DSon 03-10-2024 DS Admission Admitted 03/09/2024 for Loosening of hardware in spine. Discharge Diagnosis Loosening of hardware in spine ([facility]) Discharge Disposition Home or Self Care (01) Discharge Medications Your medication list START taking these medications Instructions Last Dose Given Next Dose Due docusate sodium 100 mg capsule Commonly known as: Colace Take 1 capsule (100 mg) by mouth two times daily for 15 days. For constipation. Do not take if diarrhea. ketorolac 10 mg tablet Commonly known as: Toradol Take 1 tablet (10 mg) by mouth every 6 (six) hours if needed for moderate pain (4-7 pain score) (pain) for up to 4 days. methocarbamol 750 mg tablet Commonly known as: Robaxin Take 1 tablet (750 mg) by mouth if needed in the morning, at noon, in the evening, and at bedtime for muscle spasms for up to 15 days. oxyCODONE 10 mg immediate release tablet Commonly known as: Roxicodone Take 1 tablet (10 mg) by mouth every 6 (six) hours if needed ((8-10)) for up to 7 days. CONTINUE taking these medications Instructions Last Dose Given Next Dose Due ARIPiprazole 10 mg tablet Commonly known as: Abilify aspirin 81 mg chewable tablet atorvastatin 40 mg tablet Commonly known as: Lipitor busPIRone 7.5 mg tablet Commonly known as: Buspar cholecalciferol 125 MCG (5000 UT) capsule Commonly known as: Vitamin D-3 gabapentin 400 mg capsule Commonly known as: Neurontin ibuprofen 800 mg tablet isosorbide mononitrate ER 30 mg 24 hr tablet Commonly known as: Imdur meclizine 25 mg tablet Commonly known as: Antivert melatonin 10 mg tablet mirtazapine 7.5 mg tablet Commonly known as: Remeron naloxone 4 mg/0.1 mL nasal spray Commonly known as: Narcan nicotine 14 mg/24 hr patch Commonly known as: Nicoderm CQ nicotine polacrilex 2 mg gum Commonly known as: Nicorette omeprazole [address] capsule Commonly known as: PriLOSEC ondansetron ODT 4 mg disintegrating tablet Commonly known as: Zofran-ODT prazosin 2 mg capsule Commonly known as: Minipress propranolol 10 mg tablet Commonly known as: Inderal propylene glycol 99.5 % (not less than, SENIOR CARE) liquid external solution STOP taking these medications chlorhexidine 4 % external liquid Commonly known as: Hibiclens diazePAM 5 mg tablet Commonly known as: Valium traMADol 50 mg tablet Commonly known as: Ultram Where to Get Your Medications These medications were sent to [facility] - [place], [place] - [address], [facility] [address] docusate sodium 100 mg capsule ketorolac 10 mg tablet methocarbamol 750 mg tablet oxyCODONE 10 mg immediate release tablet Activity No repetitive bending or twisting. No driving if taking medications that make you drowsy, including pain meds and muscle relaxers. No working until released by neurosurgery. Showering instructions: may shower and allow water to run over the incision but do not scrub, itch, soak or immerse incision in water. Diet Continue on the same type of diet and foods as you were eating before your admission. Drink plenty of water. Allergies Codeine Hospital Course Admitted electively by Dr. Yee 03/09/2024 for planned removal of L4-S1 hardware due to broken screw at S1. Intraoperatively, patient was noted to have solid bone fusion. Hardware was removed with exception of broken portion of the S1 screw, which could not be accessed. This have been discussed with the patient prior to surgery as well. On POD 1, she reports back pain, though states is as expected. She denies leg pain, weakness, paresthesia. Has been independently ambulatory to the bathroom and has been voiding. She was evaluated by occupational therapy postoperatively, who recommended a shower chair as well as a raised toilet seat due to safety deficits with mobility related activities of daily living. These deficits can be safely resolved with use of this durable medical equipment. Prescriptions were provided. Pertinent Physical Exam At Time of Discharge Constitutional: In no apparent distress. Cardiovascular: Heart sounds regular rate and rhythm. Chest: Lung sounds clear to auscultation bilaterally. Chest expansion symmetrical. Respirations regular and nonlabored. Extremities without edema. Skin warm and dry without pallor. Lumbar incision well-approximated without edema, erythema, drainage. Surgical glue intact. Neuro: GCS 15/15. Attention and memory intact. No dysarthria or aphasia. Sensation: Intact to light touch C5-T1 and L2-S1 dermatomes bilaterally. Musculoskeletal: Deltoid, biceps, triceps, finger flexors, finger extensors 4+/5 bilaterally. Hip flexors, knee flexors, knee extensors 4+/5 bilaterally. Ankle dorsiflexors and plantar flexors 4+/5 bilaterally. Muscle tone without hyper or hypotonicity. Muscle bulk appropriate for age. Resting in bed. Lab Results L (more content not included)... [facility] HPon 03-09-2024 HP H&P reviewed. The patient was examined and there are no changes to the H&P. [facility] OPNOTEon 03-09-2024 OPNOTE Date: 03/09/2024 Location: [facility] OR Name: Isela Craig, : 1970, Diagnosis Pre-op Diagnosis * Loosening of hardware in spine ([facility]) [T84.498A] Post-op Diagnosis * Loosening of hardware in spine ([facility]) [T84.498A] Procedures * L4-S1 Removal of Hardware(Screws and Rods) SD REMOVAL POSTERIOR SEGMENTAL INSTRUMENTATION [22891] Surgeons Primary: León Yee MD Procedure Summary Anesthesia: General ASA: II Estimated Blood Loss: Minimal Drains: * None in log * Staff: Heater Room Helper: Tulio Peace RN Scrub Person: Pamela Rodriguez CST Oracle Programmer Analyst: Fatmata Don RN; Dashawn Lezama CSA Indications: Isela Craig is an 53 y.o. female who is having surgery for Loosening of hardware in spine ([facility]) [T84.498A]. Findings: Right S1 screw fractured. Well developed fusion mass. Complications: None; patient tolerated the procedure well. Disposition: PACU - hemodynamically stable. Condition: stable Specimens Collected: Order Name Source Comment Collection Info Order Time URINE QUALITATIVE Urine, Clean Catch 03/09/2024 10:45 AM Release to Patient Immediately Attending Attestation: I performed the procedure. León Yee [facility] OPNOTE L4-S1 Removal of Hardware(Screws and Rods) Operative Note Date: 03/09/2024 Location: [facility] OR Name: Isela Butts Rafa, : 1970, Diagnosis Pre-op Diagnosis * Loosening of hardware in spine ([facility]) [T84.498A] Post-op Diagnosis * Loosening of hardware in spine ([facility]) [T84.498A] Procedures * L4-S1 Removal of Hardware(Screws and Rods) SD REMOVAL POSTERIOR SEGMENTAL INSTRUMENTATION [[id number]] Surgeons Primary: León Yee MD Procedure Summary Anesthesia: General ASA: II Estimated Blood Loss: 100 cc Drains: * None in log * Staff: Heater Room Helper: Tulio Peace RN Scrub Person: Pamela Rodriguez, PERINATAL COORDINATOR Oracle Programmer Analyst: Fatmata Don RN; Dashawn Lezama CSA Indications: Isela Craig is an 53 y.o. female who is having surgery for Loosening of hardware in spine ([facility]) [T84.498A]. She had undergone a L4-S1 posterior lateral fusion with pedicle screw instrumentation several years ago. This had been effective in relieving back pain, but the patient recently suffered an injury where she was dragged across the yard by her dog. Since that time, she had suffered from recurrent back pain. Imaging and demonstrated evidence of some lucency surrounding the bilateral S1 screws as well as a fracture of the right S1 screw. There appeared to be a well-developed fusion mass on CT imaging. Based on the patient's ongoing pain symptoms, she was offered removal of the spinal fixation hardware. After discussion of the surgery itself, its risk, its benefits, and the alternatives, she elected to proceed informed consent was obtained. Procedure Details: The patient was brought to the operating theater. General endotracheal anesthesia was induced without difficulty. Adequate vascular access was ensured. No Moss catheter was placed. The patient was rolled to the prone position on a waiting Ulisses table. Care was taken to ensure that all pressure points were padded adequately. The proposed site of surgery in the lower lumbar midline was identified. The existing well-healed scar was marked. The site was prepped and draped in the normal sterile fashion. A timeout was performed confirm the correct patient, procedure, and site. It was ensured the preoperative antibiotics have been delivered. The proposed site of incision was infiltrated with local anesthetic. The skin was opened along the line of the existing well-healed incision with a #10 blade. Dissection was carried down sharply through the superficial tissue. Monopolar cautery was used to extend the plane of dissection to the deep lumbar fascia. The lumbar fascia was opened in the midline with monopolar cautery. Dissection was carried down in the midline until the spinous process of L4 was identified. Subperiosteal dissection was carried down the lateral faces of the L4 spinous process and across the lamina until the heads of the pedicle screws at L4 were identified. A plane of dissection was then developed tangentially from the midline to the hardware bilaterally and extended in a caudal fashion exposing the heads of the screws and the connecting rods at the L5 and S1 levels. A thick cuff of connective tissue covered the thecal sac. There is no evidence of disruption of the dura or CSF egress. A self-retaining retractor system was added to aid in exposure. The wound was irrigated thoroughly and hemostasis was ensured. A screwdriver was then used to remove the setscrews from each of the pedicle screw heads. 6 screws were removed and accounted for. The connecting rods were mobilized with a Kofi needle ambulance driver paramedic and removed. The heads of each screw were freed from the surrounding connective tissue. A screwdriver was then introduced into each of the screws and they were removed from the pedicles. The bilateral L4 and L5 screws had excellent purchase in the bone. Manipulation of the screw heads revealed no evidence segmental movement between the L4, L5, and S1 levels. The right S1 screw was fractured and only a portion of the screw could be extracted. The left S1 screw had less purchase than the L4-L5 screws, but was not finger loose. At the conclusion of hardware removal, the wound was irrigated thoroughly and hemostasis was ensured. Intraoperative radiographs were obtained demonstrating removal of all the hardware except for the retrained distal portion of the right S1 screw. Examination of the posterior lateral fusion mass revealed what appeared to be a well-developed bony fusion. The wound was irrigated a final time. Hemostasis was ensured with a combination of Surgifoam powder and recomment thrombin. The self-retaining retractors were removed. The wound was reapproximated in multiple layers with resorbable suture. The skin was closed with Dermabond. At the conclusion of skin closure, all counts were correct x 2. The drapes were removed. The patient was rolled back in the supine position on a waiting cart. Anesthesia was reversed a (more content not included)... [facility] POCT GLUCOSE METER UNSOLICIT ED RESULTSon 03-09-2024 Glucose [Mass/Vol] 95 mg/dL Normal 70-105 [facility] Comment on above: Order Comment: Waive d Testing in the ED is performed under the ED CLIA certificate #[id number]. Result Comment: johnlast ez Performed By: #### L [id number] #### [facility] (BEAKER) [address] [place] [address] Glucose [Mass/Vol] 88 mg/dL Normal 70-105 [facility] Comment on above: Order Comment: Waive d Testing in the ED is performed under the ED CLIA certificate #[id number]. Result Comment: acle ment Performed By: #### L [id number] #### [facility] (BEAKER) [address] [place] [address] Patient Letter FTon 2023 Patient Letter FT Patient Letter [facility] March 06, 2024 ISELA C[address]IG [address] [place] [phone] : 1970 Dear Isela, You missed your scheduled appointment on: 03/06/[address] Alexandro Partida. Please note our appointment slots fill quickly. When you fail to cancel or reschedule an appointment the office is unable to fill the appointment slot that was reserved for you. In the future, we ask that you call 24 hours in advance to cancel your appointment. Our current reminder system gives you the opportunity to cancel by responding to our reminder text, phone call or email. You can also call the office to reschedule during normal business hours or use our on-line scheduling portal at your convenience. Our goal is to provide convenient and quality care to all of our patients. We appreciate your consideration regarding any future cancellations. Sincerely, [facility] [address], [place] [address] [facility] 36on 03-01-2024 36 Pt will not need new EKG, had one in Dec. Good for 1 year. [facility] 36on 02-28-2024 36 Called pt to discuss MSSA results. Pt states that she had her EKG done at [facility]. I called and spoke with Lawrence Cochran HIM. Pt had EKG done on 02/16/24, however, is not signed. Will call daily until signed and obtain EKG. Lawrence Cochran HIM: [phone]. [facility] 36 Discussed with pt. P t verbalized understanding. [facility] 36 CHG wash sent to pharmacy. LVM with pt to discuss. [facility] 36on 02-25-2024 36 +MSSA. I ordered the nasal povidone iodine for preop. She will need 5 days of chlorhexidine prior to OR. OR 03/09. Thank you. [facility] 36 Patient had voiced i n yesterday's pre op appointment that she had a recent EKG done at [facility]. Insurance Office Manager reached out to [facility], they stated that the last one she had completed was on 12/14. Insurance Office Manager called patient to notify her that she needs to get a new EKG completed and patient then said she had a recent one done at [facility]. Sending request to [phone] [facility] Prep for Procedureon 024 Prep for Procedure [id number] Booker Craig 1970 Date Provider Department Center 02/25/[address] [facility] SURG Second Fl Family History Problem Relation Age of Onset Coronary artery disease Mother Hypertension Mother Other Father Hypertension Father Other Daughter Comments: 05/2023 drug overdose Family Status - Relation Status Age at Mother Father Daughter [facility] Telephoneon 02-25-2024 Telephone [phone] Booker Craig 1970 Date Provider Department Center 02/25/2024 RICK VIRAMONTES [facility] SURG Second Fl Family History Problem Relation Age of Onset Coronary artery disease Mother Hypertension Mother Other Father Hypertension Father Other Daughter Comments: 05/2023 drug overdose Family Status - Relation Status Age at Mother Father Daughter [facility] Telephone [phone] Booker Craig 1970 Date Provider Department Center 02/25/[address] [facility] SURG Second Fl Family History Problem Relation Age of Onset Coronary artery disease Mother Hypertension Mother Other Father Hypertension Father Other Daughter Comments: 05/2023 drug overdose Family Status - Relation Status Age at Mother Father Daughter Normal [facility] APTTon 02-24-2024 ACTIVATED PARTIAL THROMBOPLASTIN TIME IN PPP BY COAGULATION ASSAY 27.5 Seconds Normal 25.0-35.0 [facility] Comment on above: Result Comment: Clin ical significance of the APTT is questionable in the presence of heparin. Performed By: #### L [id number] #### [facility] HOSPITAL LAB (BEAKER) [address] [place] [address] BASIC METABOLIC PANELon 11- Anion gap [Moles/Vol] 12 mmol/L Normal 7-20 [facility] Comment on above: Performed By: #### L [id number] #### [facility] (BEAKER) [address] [place] [address] Calcium [Mass/Vol] 9.6 mg/dL Normal 8.6-10.3 [facility] Comment on above: Performed By: #### L [id number] #### [facility] (BEAKER) [address] [place] [address] Chloride [Moles/Vol] 104 mmol/L Normal 98-107 [facility] Comment on above: Performed By: #### L [id number] #### [facility] (BEAKER) [address] [place] [address] CO2 [Moles/Vol] 27 mmol/L Normal 21-31 [facility] Comment on above: Performed By: #### L [id number] #### [facility] (BEAKER) [address] [place] [address] Creatinine [Mass/Vol] 0.77 mg/dL Normal 0.60-1.20 [facility] Comment on above: Performed By: #### L [id number] #### [facility] (BEAKER) [address] [place] [address] GLOMERULAR FILTRATION RATE ML/MIN/1.73 SQ M.PREDICTED 92.8 mL/min/1.73m*2 Normal >60.0 [facility] Comment on above: Result Comment: The [facility]???s estimated glomerular filtration rate (eGFR) will no longer include consideration of race in its calculation. The National Kidney Foundation???s eGFR Task Force developed new recommendations for the estimation of the glomerular filtration rate in the [place] They recommend immediate implementation of the new equation refit without the race variable in all laboratories because the calculation does not include race. In addition to not including race in the calculation and reporting, it included diversity in its development, and has acceptable performance characteristics and potential consequences that do not disproportionately affect any one group of individuals. Performed By: #### L [id number] #### [facility] ([facility]) [address] [place] [address] Glucose [Mass/Vol] 83 mg/dL Normal 70-100 [facility] Comment on above: Performed By: #### L [id number] #### [facility] ([facility]) [address] [place] [address] Potassium [Moles/Vol] 3.6 mmol/L Normal 3.5-5.1 [facility] Comment on above: Performed By: #### L [id number] #### [facility] ([facility]) [address] [place] [address] Sodium [Moles/Vol] 139 mmol/L Normal 136-145 [facility] Comment on above: Performed By: #### L [id number] #### [facility] ([facility]) [address] [place] [address] Urea nitrogen [Mass/Vol] 12 mg/dL Normal 7-25 [facility] Comment on above: Performed By: #### L [id number] #### [facility] ([facility]) [address] [place] [address] UREA NITROGEN/CREATININE (MASS RATIO) IN SER/PLAS 15.6 Normal [facility] Comment on above: Performed By: #### L [id number] #### [facility] ([facility]) [address] [place] [address] CBC WITH AUTO DIFFERENTIALon 02-24-2024 Basophils (Bld) [#/Vol] 0.07 10*3/uL Normal 0.00-0.20 [facility] Comment on above: Performed By: #### L [id number] #### [facility] ([facility]) [address] [place] [address] Basophils/100 WBC (Bld) 0.8 % Normal 0.0-1.0 [facility] Comment on above: Performed By: #### L [id number] #### [facility] ([facility]) [address] [place] [address] Eosinophils (Bld) [#/Vol] 0.12 10*3/uL Normal 0.00-0.50 [facility] Comment on above: Performed By: #### L [id number] #### [facility] ([facility]) [address] [place] [address] Eosinophils/100 WBC (Bld) 1.4 % Normal 0.0-6.0 [facility] Comment on above: Performed By: #### L [id number] #### [facility] ([facility]) [address] [place] [address] Erythrocyte distribution width (RBC) [Ratio] 14.0 % Normal 11.5-15.0 [facility] Comment on above: Performed By: #### L [id number] #### [facility] ([facility]) [address] [place] [address] ERYTHROCYTE MEAN CORPUSCULAR HEMOGLOBIN CONCENTRATION (G/DL) BY AUTOMATED 33.0 g/dL Normal 32.0-35.0 [facility] Comment on above: Performed By: #### L [id number] #### [facility] ([facility]) [address] [place] [address] Hematocrit (Bld) [Volume fraction] 41.2 % Normal 36.0-48.0 [facility] Comment on above: Performed By: #### L [id number] #### [facility] (BEAKER) [address] [place] [address] Hemoglobin (Bld) [Mass/Vol] 13.6 g/dL Normal 12.0-15.0 [facility] Comment on above: Performed By: #### L [id number] #### [facility] ([facility]) [address] [place] [address] Immature granulocytes (Bld) [#/Vol] 0.02 10*3/uL Normal 0.00-0.20 [facility] Comment on above: Performed By: #### L [id number] #### [facility] ([facility]) [address] [place] [address] Immature granulocytes/100 WBC (Bld) 0.2 % Normal 0.0-1.0 [facility] Comment on above: Performed By: #### L [id number] #### [facility] ([facility]) [address] [place] [address] Lymphocytes (Bld) [#/Vol] 2.59 10*3/uL Normal 1.20-4.00 [facility] Comment on above: Performed By: #### L [id number] #### [facility] ([facility]) [address] [address] Lymphocytes/100 WBC (Bld) 29.7 % Normal 20.0-45.0 [facility] Comment on above: Performed By: #### L [id number] #### [facility] ([facility]) [address] [address] MCH (RBC) [Entitic mass] 31.1 pg Normal 27.0-33.0 [facility] Comment on above: Performed By: #### L [id number] #### [facility] ([facility]) [address] [address] MCV (RBC) [Entitic vol] 94.1 fL Normal 82.0-98.0 [facility] Comment on above: Performed By: #### L [id number] #### [facility] ([facility]) [address] [place] [address] Monocytes (Bld) [#/Vol] 0.99 10*3/uL Normal 0.10-1.00 [facility] Comment on above: Performed By: #### L [id number] #### [facility] HOSPITAL LAB (BEAKER) [address] [place] [address] Monocytes/100 WBC (Bld) 11.4 % Normal 5.0-12.0 [facility] Comment on above: Performed By: #### L [id number] #### [facility] ([facility]) [address] [place] [address] Neutrophils (Bld) [#/Vol] 4.93 10*3/uL Normal 1.60-7.60 [facility] Comment on above: Performed By: #### L [id number] #### [facility] ([facility]) [address] [place] [address] Neutrophils/100 WBC (Bld) 56.5 % Normal 40.0-72.0 [facility] Comment on above: Performed By: #### L [id number] #### [facility] ([facility]) [address] [place] [address] NRBC (PER 100 WBCS) BY AUTOMATED COUNT 0.0 % Normal 0 [facility] Comment on above: Performed By: #### L [id number] #### [facility] (BEAKER) [address] [place] [address] PLATELETS (10*3/UL) IN BLOOD AUTOMATED COUNT 388 10*3/uL Normal 150-400 [facility] Comment on above: Performed By: #### L [id number] #### [facility] (BEAKER) [address] [place] [address] RBC (Bld) [#/Vol] 4.38 10*6/uL Normal 3.80-5.00 [facility] Comment on above: Performed By: #### L [id number] #### [facility] (BEAKER) [address] [place] [address] WBC (Bld) [#/Vol] 8.72 10*3/uL Normal 4.00-10.60 [facility] Comment on above: Performed By: #### L [id number] #### [facility] HOSPITAL LAB (JEN) [address] [place] [address] Consulton 02-24-2024 Consult [id number] Booker Craig 1970 F Date Provider Department Center 02/24/2024 CHLOE TOMLIN [facility] SURG Second Fl Family History Problem Relation Age of Onset Coronary artery disease Mother Hypertension Mother Other Father Hypertension Father Other Daughter Comments: 05/2023 drug overdose Family Status - Relation Status Age at Mother Father Daughter Level of Service:92032 SD OFFICE/OUTPATIENT NEW MODERATE MDM 45 MINUTES Reason for Visit and Comments: Pre-op Exam [[id number]] Normal [facility] HPon 02-24-2024 HP SUBJECTIVE: Chief complaint: Preoperative visit for removal of L4-S1 hardware scheduled for 03/09/[address] Yee. History of present illness: Patient had a lumbar fusion by neurosurgeon Dr. Hernández about 20 years ago. States prior to surgery, she had been experiencing low back pain. Surgery did seem to help her back pain. However, this summer she was dragged across her yard by her dog. States since then, she has been having bilateral low back pain. No variation with time of day. Better lying supine. Worse with movement, bending, twisting. Reports imbalance, though denies falls. States she stumbles frequently, though also acknowledges history of dizziness. Did recently have a bladder sling, which seems to help her urinary urgency. Denies bowel incontinence. She has not had any recent physical therapy. Has been referred to pain management by her primary care provider, though has not yet seen them. Has tried medications such as meloxicam, ibuprofen, muscle relaxants without lasting or substantial relief. Tramadol helps some. Requesting refill. 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 Review of systems: As in HPI. Denies cough, chest pain, shortness of breath. Denies rashes, wounds, open sores. Past Medical History: Diagnosis Date Alcohol abuse [...] History Tobacco Use Smoking status: Every Day Current packs/day: 0.25 Average packs/day: 0.3 packs/day for 30.0 years (7.5 ttl pk-yrs) Types: Cigarettes Passive exposure: Current Smokeless tobacco: [...] Take 10 mg by mouth in the morning and at bedtime., Disp: , Rfl: propylene glycol 99.5 % (not less than, S[facility]IOR [facility]) liquid external (more content not included)... Normal [facility] Labon 02-24-2024 Lab [id number] Booker Craig 1970 F Date Provider Department Center 02/24/2024 2[facility] OPD LAB RESOURCE [facility] OPD IN Medical C Family History Problem Relation Age of Onset Coronary artery disease Mother Hypertension Mother Other Father Hypertension Father Other Daughter Comments: 05/2023 drug overdose Family Status - Relation Status Age at Mother Father Daughter Normal [facility] MRSA/MSSA DNA NASALon 2023 MRSA DNA Negative Normal Negative [facility] Comment on above: Order Comment: Testkelly kenney methodology is an automated qualitative in vitro diagnostic test for the directdetection and differentiation of Staphylococcus aureus (SA) DNA and methicillin-resistant Staphylococcus aureus (MRSA) DNA from nasal swabs in patients at risk for nasal colonization. The test utilizes real-time polymerase chain reaction (PCR) for the amplification of MRSA/SA DNA and fluorogenic target-specific hybridization probes for the detection of the amplified DNA. A negative result does not preclude nasal colonization. Performed By: #### L [id number] ####[facility] (BEAKER)[address] [place] [address] MSSA DNA Positive Abnormal Negative [facility] Comment on above: Order Comment: Testi ng methodology is an automated qualitative in vitro diagnostic test for the directdetection and differentiation of Staphylococcus aureus (SA) DNA and methicillin-resistant Staphylococcus aureus (MRSA) DNA from nasal swabs in patients at risk for nasal colonization. The test utilizes real-time polymerase chain reaction (PCR) for the amplification of MRSA/SA DNA and fluorogenic target-specific hybridization probes for the detection of the amplified DNA. A negative result does not preclude nasal colonization. Performed By: #### L [id number] ####[facility] (BEAKER)[address] [place] [address] PROTIME-INRon 02-24-2024 INR IN PPP BY COAGULATION ASSAY 1.02 Normal 0.90-1.10 [facility] Comment on above: Result Comment: ACCC P RECOMMENDED INR FOR WARFARIN THERAPY CONDITION INR PROPHYLAXIS OF VENOUS THROMBOSIS 2-3 (HIGH-RISK SURGERY) TREATMENT OF VENOUS THROMBOSIS 2-3 TREATMENT OF PULMONARY EMBOLISM 2-3 PREVENTION OF SYSTEMIC EMBOLISM: 2-3 ACUTE MYOCARDIAL INFARCTION TISSUE HEART VALVES VALVULAR HEART DISEASE ATRIAL FIBRILLATION RECURRENT SYSTEMIC EMBOLISM MECHANICAL HEART VALVE 2.5-3.5 FROM: ORAL ANTICOAGULANTS. MECHANISM OF ACTION, CLINICAL EFFECTIVENESS, AND OPTIMAL THERAPEUTIC RANGE. CHEST 1995;108:231S-246S. Performed By: #### L [id number] #### [facility] (BEAKER) [address] [place] [address] PROTHROMBIN TIME (PT) IN PPP BY COAGULATION ASSAY 13.4 Seconds Normal 12.3-14.8 [facility] Comment on above: Performed By: #### L [id number] #### [facility] (BEAKER) [address] [place] [address] TYPE AND SCREENon 02-24-2024 AB SCREEN Negative Normal [facility] Comment on above: Performed By: #### L [id number] #### [facility]OD BANK , ABO group Nom (Bld) A Normal [facility] Comment on above: Performed By: #### L [id number] #### [facility] , RH TYPE IN BLOOD Positive Normal [facility] Comment on above: Performed By: #### L [id number] #### [facility] , Event Monitoron 02-21-2024 Event Monitor Event Monitor EVENT MONITOR ENROLLMENT PERIOD: 01/07/2024 through 02/05/2024 INDICATIONS: Syncope and collapse. FINDINGS: Over the monitoring time, underlying sinus rhythm was recorded with minimum heart rate of 45, average heart rate of 77, maximum heart rate of 148 beats per minute. There were 15 patient events with symptoms of not specified, dizziness, other, and one baseline. There were no secondary arrhythmias. Total burden of premature supraventricular ectopy was 0.01% including supraventricular ectopic beats, couplets, and one supraventricular ectopic run lasting 5 beats with heart rate of 105 beats per minute. Total burden of premature ventricular ectopy was less than 0.01%. There was no evidence of atrial fibrillation, clinically significant pauses, malignant ventricular arrhythmias. Symptomatic entries correlated with normal sinus rhythm and sinus tachycardia. CONCLUSIONS: 1. Underlying sinus rhythm. 2. Events as above. No evidence of malignant ventricular arrhythmias, clinically significant pauses, atrial fibrillation. Correlation of the patient's symptoms was sinus rhythm and sinus tachycardia, overall unremarkable event monitor. READ BY: Julien Cho MD ca Dictated: 02/19/2024 [id number] Transcribed: 02/20/2024 cc:Roosevelt Sotelo PA-C Normal [facility] Comment on above: Result Comment: Elec tronically Signed By: Marquis PATRICK, Julien Clinton\.guillermina\Date and Time Signed: 02/21/24 14:07 EST 36on 02-16-2024 36 Clearances are in media Normal [facility] Heart and Vascular Office/Cl inic Noteon 02-16-2024 Heart and Vascular Office/Clinic Note Heart and Vascular Office/Clinic Note Chief Complaint Cardiac Clearance History of Present Illness Patient is a 53-year-old female with past medical history of bipolar depression, genitourinary issues, history of smoking cigarettes and family history of CAD. Ultrasound of carotid arteries came back showing less than 50% stenosis of bilateral carotid arteries. Treadmill stress test from 04/2023 came back negative for ischemia or infarction and was a low risk study. Echo from 04/2023 showed normal EF, normal LV and RV and no significant valvular disease. Patient comes in for 6-month follow-up today. At last visit, I saw patient at which time event monitor and ultrasound of carotid arteries were ordered due to syncopal episode and heart palpitations. Event monitor came back showing no significant abnormality with only very infrequent ectopic beats. Event monitor did not show any secondary arrhythmia or malignant rhythms. Patient reports she has been doing very well since last visit. She has had no lightheadedness or dizziness at all since last visit. She states she has not had much heart palpitations either. Patient thinks that her dizziness and syncopal episode came from taking a Vivitrol shot which she was taking for alcohol. Patient reports that she has been feeling very well since last visit. She is able to walk up 2 flights of steps without stopping or having any issues. Patient denies chest pain, shortness of breath, heart palpitations, dizziness/lightheadedn ess, and swelling in lower legs. NOTE FROM 09/13/2023: Patient comes to office for 6-month follow-up [...] of breath, no cough Cardiovascular: no chest pain Neuro: no dizziness. no loss of consciousness Physical Exam Vitals & Measurements HR: 76(Peripheral) RR: 18 BP: 130/80 SpO2: 100% HT: 65 in HT: 164 cm WT: 70.6 kg WT: 155.646 lb BMI: 26.25 General: alert, no acute distress Neck: Supple, noJVD nocarotid bruit Cardiovascular: regular rate and rhythm, no murmur normal peripheral perfusion Respiratory: Lungs CTAB, respirations non labored Extremities: no edema left lower extremity. no edema right lower extremity Neurological: oriented x 4, LOC appropriate for age, speech normal Skin: Warm, dry, intact- no rash or concerning lesions Cardiac Diagnostics (01/07/2024 10:32 EDT US Carotid Duplex Bilateral) IMPRESSION: LESS THAN 50% STENOSIS PREDICTED OF THE BILATERAL INTERNAL CAROTID ARTERIES. ANTEGRADE FLOW OF BOTH VERTEBRAL ARTERIES. [1] (04/16/2023 11:41 EST NM Myocardial Spect Rest/Stress [...] Syncope and collapse) Patient had syncopal episode earlier this year. Was seen in the ER the following day and no acute findings at that time. Had grossly normal echo and stress test in 04/2023. Ultrasound of carotid arteries came back showing no stenosis and the event monitor did not s (more content not included)... [facility] Comment on above: Result Comment: Elec tronically Signed By: Deepak MOSES, Roosevelt Remy\.br\Date and Time Signed: 02/16/24 10:06 EST 36on 02-11-2024 36 Spoke with PCP's office for status update on clearance. Message sent to PCP. [facility] 36 Called and spoke wit h PCP office to verify if they have received clearance request. The field producer stated that she will send a message to the provider for status update. Verified fax number is correct. I provided my call back number if they need request to be refaxed. [facility] 36on 02-04-2024 36 Pt called and was scheduled. Aspirin hold clearance request faxed to PCP. [facility] 36 LVM for pt to call back to discuss who prescribes aspirin and to schedule surgery. [facility] 36on 02-02-2024 36 Discussed with randolph [...] the hardware removed. Will work on arranging. [facility] Telephoneon 02-02-2024 Telephone [id number] RafaBooker Butts 1970 Date Provider Department Center 02/02/2024 [id number], [facility] SURG Second Fl Family History Problem Relation Age of Onset Coronary artery disease Mother Hypertension Mother Other Father Hypertension Father Other Daughter Comments: 05/2023 drug overdose Family Status - Relation Status Age at Mother Father Daughter [facility] 36on 02-01-2024 36 Left message for patient to call back to discuss plan for her back. [facility] Telephoneon 02-01-2024 Telephone [id number] Booker Craig 1970 Date Provider Department [place] 02/01/2024 [id number], [facility] SURG Second Fl Family History Problem Relation Age of Onset Coronary artery disease Mother Hypertension Mother Other Father Hypertension Father Other Daughter Comments: 05/2023 drug overdose Family Status - Relation Status Age at Mother Father Daughter [facility] Follow-Upon 01-27-2024 Follow-Up [id number] RafaBooker Butts 1970 Provider Department [place] 01/27/2024 [id number], [facility] SURG Second Fl Family History Problem Relation Age of Onset Coronary artery disease Mother Hypertension Mother Other Father Hypertension Father Other Daughter Comments: 05/2023 drug overdose Family Status - Relation Status Age at Mother Father Daughter Level of Service:40158 SD OFFICE/OUTPATIENT ESTABLISHED MOD MDM 30 MIN Reason for Visit and Comments: Follow-up [113104] - Patient is here today for a follow up for back pain and reviewing her recent imaging [facility] 36on 01-25-2024 36 Insurance Office Manager saw that patient had no showed to todays imaging for CT and MRI. Insurance Office Manager called patient to see if that was completed. She voiced that she got the imaging done at [facility] a couple weeks ago. Called [facility], they are pushing over imaging and sending over the reports. Normal [facility] US Carotid Duplex Bilateralo n 01-12-2024 [...] Criteria Committee. Vascular Medicine 2020; https://journals.sagep ub.com/doi/full/10.117 7/[email or web address] Ordering Provider: Roosevelt Sotelo FINAL REPORT Dictated: 01/12/2024 1:18 pm Tulio Delgado DO Signed (Electronic Signature): 01/12/2024 1:18 pm Signed by: Tulio Delgado DO Transcribed by: CASEY Technologist: JENAE Technical Comments Velocities Right Vert. Antegrade Yes Technical Comments Velocities Left Vert. Antegrade Yes Normal [facility] 36on 01-06-2024 36 LVM for pt to notify. Normal [facility] Orders Onlyon 01-06-2024 Orders Only [id number] Booker Craig 1970 F Date Provider Department Center 01/06/2024 CHLOE TOMLIN [facility] SURG Second Fl Family History Problem Relation Age of Onset Coronary artery disease Mother Hypertension Mother Other Father Hypertension Father Other Daughter Comments: 05/2023 drug overdose Family Status - Relation Status Age at Mother Father Daughter [facility] 36on 01-05-2024 36 Pt called back stati ng that she had taken the medication prior to her original MRI that was scheduled. Per pt, Libia had a scheduling mix up. Pt was rescheduled for today. Pt states that she was going to try to do MRI without medication, but could not. Pt did say she had her CT done. [facility] Orders Onlyon 01-05-2024 Orders Only [id number] Booker Craig 1970 F Date Provider Department Center 01/05/2024 NABOR CHLOE [facility] SURG Second Fl Family History Problem Relation Age of Onset Coronary artery disease Mother Hypertension Mother Other Father Hypertension Father Other Daughter Comments: 05/2023 drug overdose Family Status - Relation Status Age at Mother Father Daughter [facility] 36on 12-22-2023 36 Pt called and LVM requesting CT and MRI orders be faxed to [place]. Pt has existing CT and MRI scheduled here at [facility]. I called and LVM with pt to notify of orders faxed to [place], that she will need to bring disc of imaging to her follow up visit with Chloe Ceballos CNP and to call [facility] radiology to cancel appointments. Follow up visit date and time and radiology scheduling number provided in VM. [facility] Consulton 12-14-2023 Consult [phone] Booker Craig 1970 F Date Provider Department Center 12/14/2023 CHLOE TOMLIN [facility] SURG Second Fl Family History Problem Relation Age of Onset Coronary artery disease Mother Hypertension Mother Other Father Hypertension Father Other Daughter Comments: 05/2023 drug overdose Family Status - Relation Status Age at Mother Father Daughter Level of Service:66086 SD OFFICE/OUTPATIENT NEW MODERATE MDM 45 MINUTES Reason for Visit and Comments: Consult [484] - broken screw from past surgery. Pt will bring disc of Xr and MRI with her. Normal [facility] MR lumbar spine wo conon MR lumbar spine wo con [facility] Main [place] [address] [place] [address] MRI Report Signed Patient: Isela Craig MR#: [id number] : 1970 Acct:[id number] Age/Sex: 53 / F ADM Date: 12/02/23 Loc: ICMR Room: [facility] Attending Dr: Jes Cruz UX DEVELOPER-C Copies to: Jes Cruz Ordering Provider: Jes [...] Bjorn Rdz M.D.12/02/2023 3:22 PM Dictation Location: [place] [address] Transcribed By: FLORES 12/02/23 152 Dictated By: Bjorn Rdz II, MD 12/02/23 1512 Signed By: 12/02/23 1522 Normal [facility] Alanine aminotransferase [En zymatic activity/volume] in Serum or PlasmaOrdered By: Jes Cruz on 11-01-2023 ALT [Catalytic activity/Vol] 17 U/L Normal 7-52 [facility] Comment on above: Order Comment: Reaso n for Exam Primary hypertension Reason for Exam Low iron Reason for Exam Primary hypertension;Hypertriglyceridemia Reason for Exam Hot flashes Reason for Exam Vitamin D deficiency Performed By: #### F SH, T3F, CBC, TSH3, [id number], CMP, SHAMA, FE and TIBC, LIPID, CUU, [id number], UA #### [address] #### ESTRADIOL, LH #### [facility] , Albumin [Mass/volume] in Ser um or Plasma by Bromocresol green (BCG) dye binding methoOrdered By: Jes Cruz on 11-01-2023 Albumin BCG dye [Mass/Vol] 4.3 g/dL 3.5-5.7 [facility] Alkaline phosphatase [Enzyma tic activity/volume] in Serum or PlasmaOrdered By: Jes Cruz on 11-01-2023 ALP [Catalytic activity/Vol] 87 U/L Normal 34-104 [facility] Comment on above: Order Comment: Reaso n for Exam Primary hypertension Reason for Exam Low iron Reason for Exam Primary hypertension;Hypertriglyceridemia Reason for Exam Hot flashes Reason for Exam Vitamin D deficiency Performed By: #### F SH, T3F, CBC, TSH3, [id number], CMP, SHAMA, FE and TIBC, LIPID, CUU, [id number], UA #### [facility] [address] [place] [address] [place] #### ESTRADIOL, LH #### [facility] , Aspartate aminotransferase [ Enzymatic activity/volume] in Serum or PlasmaOrdered By: eJs Cruz on 11-01-2023 AST [Catalytic activity/Vol] 13 U/L Normal 13-39 [facility] Comment on above: Order Comment: Reaso n for Exam Primary hypertension Reason for Exam Low iron Reason for Exam Primary hypertension;Hypertriglyceridemia Reason for Exam Hot flashes Reason for Exam Vitamin D deficiency Performed By: #### F SH, T3F, CBC, TSH3, [id number], CMP, SHAMA, FE and TIBC, LIPID, CUU, [id number], UA #### [facility] [address] [place] [address] #### ESTRADIOL, LH #### [facility] , Automated basophil %Ordered By: Jes Cruz on 11-01-2023 Basophils/100 WBC (Bld) 1.1 % Normal . [facility] Comment on above: Order Comment: Reaso n for Exam Primary hypertension Performed By: #### F SH, T3F, CBC, TSH3, [id number], CMP, SHAMA, FE and TIBC, LIPID, CUU, [id number], UA #### [facility] [address] [place] [address] [place] #### ESTRADIOL, LH #### [facility] , Automated basophil countOrde red By: Jes Cruz on 11-01-2023 Basophils (Bld) [#/Vol] 0.1 10*3/uL Normal 0.0-0.2 [facility] Comment on above: Order Comment: Reaso n for Exam Primary hypertension Result Comment: PERF ORMED BY: [place] [address] PATHOLOGIST STONE RIGGER JIANLAN SUN M.D. Performed By: #### F SH, T3F, CBC, TSH3, [id number], CMP, SHAMA, FE and TIBC, LIPID, CUU, [id number], UA #### [place] [address] [place] #### ESTRADIOL, LH #### [facility] , Automated blood monocyte cou ntOrdered By: Jes Cruz on 11-01-2023 Monocytes (Bld) [#/Vol] 0.8 10*3/uL Normal 0.0-0.8 [facility] Comment on above: Order Comment: Reaso n for Exam Primary hypertension Performed By: #### F SH, T3F, CBC, TSH3, [id number], CMP, SHAMA, FE and TIBC, LIPID, CUU, [id number], UA #### [place] [address] [place] #### ESTRADIOL, LH #### [facility] , Automated eosinophil %Ordere d By: Jes Cruz on 11-01-2023 Eosinophils/100 WBC (Bld) 1.5 % Normal . [facility] Comment on above: Order Comment: Reaso n for Exam Primary hypertension Performed By: #### F SH, T3F, CBC, TSH3, [id number], CMP, SHAMA, FE and TIBC, LIPID, CUU, [id number], UA #### [place] [address] [place] #### ESTRADIOL, LH #### [facility] , Automated eosinophil countOr dered By: Jes Cruz on 11-01-2023 Eosinophils (Bld) [#/Vol] 0.1 10*3/uL Normal 0.0-0.45 [facility] Comment on above: Order Comment: Reaso n for Exam Primary hypertension Performed By: #### F SH, T3F, CBC, TSH3, [id number], CMP, SHAMA, FE and TIBC, LIPID, CUU, [id number], UA #### [place] [address] [place] #### ESTRADIOL, LH #### [facility] , Automated monocyte %Ordered By: eJs Cruz on 11-01-2023 Monocytes/100 WBC (Bld) 10.8 % Normal . [facility] Comment on above: Order Comment: Reaso n for Exam Primary hypertension Performed By: #### F SH, T3F, CBC, TSH3, [id number], CMP, SHAMA, FE and TIBC, LIPID, CUU, [id number], UA #### [facility] [address] #### ESTRADIOL, LH #### [facility] , Automated neutrophil %Ordere d By: Jes Tamezson on 11-01-2023 Neutrophils/100 WBC (Bld) 58.6 % Normal . [facility] Comment on above: Order Comment: Reaso n for Exam Primary hypertension Performed By: #### F SH, T3F, CBC, TSH3, [id number], CMP, SHAMA, FE and TIBC, LIPID, CUU, [id number], UA #### [facility] [address] [place] [address] [place] #### ESTRADIOL, LH #### [facility] , Bilirubin Test strip Ql (U)O rdered By: Jes Cruz on 11-01-2023 Bilirubin Ql (U) Negative Negative [facility] Bilirubin.total [Mass/volume ] in Serum or PlasmaOrdered By: Jes Cruz on 11-01-2023 Bilirubin [Mass/Vol] 0.4 mg/dL Normal 0.3-1.0 [facility] Comment on above: Order Comment: Reaso n for Exam Primary hypertension Reason for Exam Low iron Reason for Exam Primary hypertension;Hypertriglyceridemia Reason for Exam Hot flashes Reason for Exam Vitamin D deficiency Performed By: #### F SH, T3F, CBC, TSH3, [id number], CMP, SHAMA, FE and TIBC, LIPID, CUU, [id number], UA #### [facility] [address] [place] [address] [place] #### ESTRADIOL, LH #### [facility] , Calcium [Mass/volume] in Ser um or PlasmaOrdered By: Jes Anthony on 11-01-2023 Calcium [Mass/Vol] 9.4 mg/dL Normal 8.6-10.3 [facility] Comment on above: Order Comment: Reaso n for Exam Primary hypertension Reason for Exam Low iron Reason for Exam Primary hypertension;Hypertriglyceridemia Reason for Exam Hot flashes Reason for Exam Vitamin D deficiency Performed By: #### F SH, T3F, CBC, TSH3, [id number], CMP, SHAMA, FE and TIBC, LIPID, CUU, [id number], UA #### [facility] [address] #### ESTRADIOL, LH #### [facility] , Carbon dioxide, total [Moles /volume] in Serum or PlasmaOrdered By: Jes Cruz on 11-01-2023 CO2 [Moles/Vol] 28.5 mmol/L Normal 21.0-31.0 [facility] Comment on above: Order Comment: Reaso n for Exam Primary hypertension Reason for Exam Low iron Reason for Exam Primary hypertension;Hypertriglyceridemia Reason for Exam Hot flashes Reason for Exam Vitamin D deficiency Performed By: #### F SH, T3F, CBC, TSH3, [id number], CMP, SHAMA, FE and TIBC, LIPID, CUU, [id number], UA #### [facility] [address] [place] [address] [place] #### ESTRADIOL, LH #### [facility] , Chloride [Moles/volume] in S shanna or PlasmaOrdered By: Jes Cruz on 11-01-2023 Chloride [Moles/Vol] 105 mmol/L Normal 98-107 [facility] Comment on above: Order Comment: Reaso n for Exam Primary hypertension Reason for Exam Low iron Reason for Exam Primary hypertension;Hypertriglyceridemia Reason for Exam Hot flashes Reason for Exam Vitamin D deficiency Performed By: #### F SH, T3F, CBC, TSH3, [id number], CMP, SHAMA, FE and TIBC, LIPID, CUU, [id number], UA #### [facility] [address] [place] [address] [place] #### ESTRADIOL, LH #### [facility] , Cholesterol [Mass/volume] in Serum or PlasmaOrdered By: Jes Cruz on 11-01-2023 Cholesterol [Mass/Vol] 285 mg/dL High 140-200 [facility] Comment on above: Chol less than [...] and greater high risk Performed By: #### F SH, T3F, CBC, TSH3, [id number], CMP, SHAMA, FE and TIBC, LIPID, CUU, [id number], UA #### [facility] [address] [place] [address] [place] #### ESTRADIOL, LH #### [facility] , Cholesterol in LDL Calc [Mas s/Vol]Ordered By: Jes Cruz on 11-01-2023 Cholesterol in LDL [Mass/Vol] 198 mg/dL High 0-100 [facility] Comment on above: LDL ATP III CLASSIFI CATIONLDL less than 100 mg/dL OptimalLDL 100-129 mg/dL Near or above optimalLDL 130-159 mg/dL Borderline highLDL 160-189 mg/dL HighLDL greater than 189 mg/dL Very high Cholesterol in VLDL Calc [Ma ss/Vol]Ordered By: Jes Cruz on 11-01-2023 Cholesterol in VLDL [Mass/Vol] 29 mg/dL [facility] Color of Urine by AutoOrdere d By: Jes Cruz on 11-01-2023 Color (U) Light-yellow Normal Yellow [facility] Comment on above: Order Comment: Reaso n for Exam Microscopic hematuria Name Collection Type:: Voided Performed By: #### F SH, T3F, CBC, TSH3, [id number], CMP, SHAMA, FE and TIBC, LIPID, CUU, [id number], UA #### [place] [address] [place] #### ESTRADIOL, LH #### [facility] , Complete Blood Count Auto Di ffon 11-01-2023 Mean Corpuscular HGB Conc 33.6 g/dL Normal 32.0-35.0 [facility] Comment on above: Order Comment: Reaso n for Exam Primary hypertension Performed By: #### F SH, T3F, CBC, TSH3, [id number], CMP, SHAMA, FE and TIBC, LIPID, CUU, [id number], UA #### [place] [address] [place] #### ESTRADIOL, LH #### [facility] , NRBC% 0.1 /100{WBC} Normal 0-0.5 [facility] Comment on above: Order Comment: Reaso n for Exam Primary hypertension Performed By: #### F SH, T3F, CBC, TSH3, [id number], CMP, SHAMA, FE and TIBC, LIPID, CUU, [id number], UA #### [place] [address] [place] #### ESTRADIOL, LH #### [facility] , Comprehensive Metabolic Pane hema 11-01-2023 Albumin [Mass/Vol] 4.3 g/dL Normal 3.5-5.7 [facility] Comment on above: Order Comment: Reaso n for Exam Primary hypertension Reason for Exam Low iron Reason for Exam Primary hypertension;Hypertriglyceridemia Reason for Exam Hot flashes Reason for Exam Vitamin D deficiency Performed By: #### F SH, T3F, CBC, TSH3, [id number], CMP, SHAMA, FE and TIBC, LIPID, CUU, [id number], UA #### [place] [address] [place] #### ESTRADIOL, LH #### [facility] , GFR/1.73 sq M.predicted MDRD (S/P/Bld) [Vol rate/Area] mL/min/{1.73_m2} Normal [facility] Comment on above: Order Comment: Reaso n for Exam Primary hypertension Reason for Exam Low iron Reason for Exam Primary hypertension;Hypertriglyceridemia Reason for Exam Hot flashes Reason for Exam Vitamin D deficiency Performed By: #### F SH, T3F, CBC, TSH3, [id number], CMP, SHAMA, FE and TIBC, LIPID, CUU, [id number], UA #### [address] #### ESTRADIOL, LH #### [facility] , Creatinine [Mass/volume] in Serum or PlasmaOrdered By: Jes Cruz on 11-01-2023 Creatinine [Mass/Vol] 0.75 mg/dL Normal 0.60-1.20 [facility] Comment on above: Order Comment: Reaso n for Exam Primary hypertension Reason for Exam Low iron Reason for Exam Primary hypertension;Hypertriglyceridemia Reason for Exam Hot flashes Reason for Exam Vitamin D deficiency Performed By: #### F SH, T3F, CBC, TSH3, [id number], CMP, SHAMA, FE and TIBC, LIPID, CUU, [id number], UA #### [place] [address] [place] #### ESTRADIOL, LH #### [facility] , Erythrocyte distribution wid th [Ratio] by Automated countOrdered By: Jes Cruz on 11-01-2023 Erythrocyte distribution width (RBC) [Ratio] 13.1 % Normal 11.9-15.3 [facility] Comment on above: Order Comment: Reaso n for Exam Primary hypertension Performed By: #### F SH, T3F, CBC, TSH3, [id number], CMP, SHAMA, FE and TIBC, LIPID, CUU, [id number], UA #### [place] [address] [place] #### ESTRADIOL, LH #### [facility] , Erythrocytes [#/volume] in B lood by Automated countOrdered By: Jes Cruz on 11-01-2023 RBC (Bld) [#/Vol] 4.13 10*6/uL Normal 3.60-5.[address] [facility] Comment on above: Order Comment: Reaso n for Exam Primary hypertension Performed By: #### F SH, T3F, CBC, TSH3, [id number], CMP, SHAMA, FE and TIBC, LIPID, CUU, [id number], UA #### [facility] [address] #### ESTRADIOL, LH #### [facility] , Estradiolon 11-01-2023 Estradiol <5.0 Normal . [facility] Comment on above: Order Comment: Reaso n for Exam Hot flashes Result Comment: Adul t Female Range Follicular phase 12.5 - 166.0 Ovulation phase 85.8 - 498.0 Luteal phase 43.8 - 211.0 Postmenopausal <6.0 - 54.7 1st trimester 215.0 - >4300.0 Mp ECLIA methodology Performed at: [facility] [address] [id number] [employer]: Kurtis Gallegos PhD, Phone: [phone] PERFORMED BY: [place] [address] PATHOLOGIST STONE RIGGER PALOMO WESLEY M.D. Performed By: #### F SH, T3F, CBC, TSH3, [id number], CMP, SHAMA, FE and TIBC, LIPID, CUU, [id number], UA ####[facility] [id number]#### ESTRADIOL, LH ####[facility] , Ferritin [Mass/volume] in Se rum or PlasmaOrdered By: Jes Cruz on 11-01-2023 Ferritin [Mass/Vol] 42.8 ng/mL Normal 11.0-306.[address] [facility] Comment on above: Order Comment: Reaso n for Exam Primary hypertension Reason for Exam Low iron Reason for Exam Primary hypertension;Hypertriglyceridemia Reason for Exam Hot flashes Reason for Exam Vitamin D deficiency Performed By: #### F SH, T3F, CBC, TSH3, [id number], CMP, SHAMA, FE and TIBC, LIPID, CUU, [id number], UA #### [facility] [address] #### ESTRADIOL, LH #### [facility] , Folate [Mass/volume] in Seru m or PlasmaOrdered By: Jes Cruz on 11-01-2023 Folate [Mass/Vol] 10.3 ng/mL >5.[address] [facility] Comment on above: Folate reference ran ge: >5.9 ng/mlThe WHO technical consultation on folate and vitamin [id number] has determined that folate concentrations lessthan 4 ng/ml are considered deficient. Follicle Stimulating Hormone on 11-01-2023 Follicle Stimulating Hormone 32.3 m[iU]/mL Normal [facility] Comment on above: [...] MALE NORMALS: 1.3-19.3 mIU/mL Performed By: #### F SH, T3F, CBC, TSH3, [id number], CMP, SHAMA, FE and TIBC, LIPID, CUU, [id number], UA ####[facility] [id number] [place] [address] [place]#### ESTRADIOL, LH ####[facility] , Follitropin [Units/volume] i n Serum or PlasmaOrdered By: Jes Cruz on 11-01-2023 Follitropin Qn 32.3 m[IU]/mL [facility] Comment on above: FEMALE NORMALS (KEVEN ENOPAUSE) MID-FOLLICULAR PHASE: 3.9-8.8 mIU/mL MID-CYCLE PEAK: 4.5-22.5 mIU/mL MID-LUTEAL PHASE: 1.8-5.1 mIU/mLFEMALE NORMALS (POSTMENOPAUSE): 16.7-113.6 mIU/mLMALE NORMALS: 1.3-19.3 mIU/mL Glucose [Mass/volume] in Ser um or PlasmaOrdered By: Jes Cruz on 11-01-2023 Glucose [Mass/Vol] 95 mg/dL Normal 70-100 [facility] Comment on above: ADA recommended refe [...] for Exam Vitamin D deficiency Result Comment: [place] om Glucose Reference Range is dependent on time and content of last meal. Glucose of more than 200 mg/dL in a nonstressed, ambulatory subject supports the diagnosis of Diabetes Mellitus. ADA recommended reference range Performed By: #### F SH, T3F, CBC, TSH3, [id number], CMP, SHAMA, FE and TIBC, LIPID, CUU, [id number], UA #### [address] #### ESTRADIOL, LH #### [facility] , Glucose [Mass/volume] in Uri ne by Test stripOrdered By: Jes Cruz on 11-01-2023 Glucose Test strip (U) [Mass/Vol] Normal mg/dL Normal [facility] Hematocrit [Volume Fraction] of Blood by Automated countOrdered By: Jes Cruz on 11-01-2023 Hematocrit (Bld) [Volume fraction] 39.6 % Normal 34.0-46.4 [facility] Comment on above: Order Comment: Reaso n for Exam Primary hypertension Performed By: #### F SH, T3F, CBC, TSH3, [id number], CMP, SHAMA, FE and TIBC, LIPID, CUU, [id number], UA #### [facility] [address] [place] [address] [place] #### ESTRADIOL, LH #### [facility] , Hemoglobin Test strip Ql (U) Ordered By: Jes Cruz on 11-01-2023 Hemoglobin Ql (U) Negative Negative [facility] Hemoglobin [Mass/volume] in BloodOrdered By: Jes Cruz on 11-01-2023 Hemoglobin (Bld) [Mass/Vol] 13.3 g/dL Normal 11.8-15.4 [facility] Comment on above: Order Comment: Reaso n for Exam Primary hypertension Performed By: #### F SH, T3F, CBC, TSH3, [id number], CMP, SHAMA, FE and TIBC, LIPID, CUU, [id number], UA #### [facility] [address] [place] [address] [place] #### ESTRADIOL, LH #### [facility] , Iron [Mass/volume] in Serum or PlasmaOrdered By: Jes Tamezson on 11-01-2023 Iron [Mass/Vol] 106 ug/dL Normal 50-212 [facility] Comment on above: Order Comment: Reaso n for Exam Primary hypertension Reason for Exam Low iron Reason for Exam Primary hypertension;Hypertriglyceridemia Reason for Exam Hot flashes Reason for Exam Vitamin D deficiency Performed By: #### F SH, T3F, CBC, TSH3, [id number], CMP, SHAMA, FE and TIBC, LIPID, CUU, [id number], UA #### [facility] [address] [place] [address] [place] #### ESTRADIOL, LH #### [facility] , Iron and TIBC Profileon 10-04 % Iron Saturation 25.1 % Normal 20-50 [facility] Comment on above: Order Comment: Reaso n for Exam Primary hypertension Reason for Exam Low iron Reason for Exam Primary hypertension;Hypertriglyceridemia Reason for Exam Hot flashes Reason for Exam Vitamin D deficiency Performed By: #### F SH, T3F, CBC, TSH3, [id number], CMP, SHAMA, FE and TIBC, LIPID, CUU, [id number], UA #### [facility] [address] [place] [address] [place] #### ESTRADIOL, LH #### [facility] , Total Iron Binding Capacity 423 ug/dL Normal 255-450 [facility] Comment on above: Order Comment: Reaso n for Exam Primary hypertension Reason for Exam Low iron Reason for Exam Primary hypertension;Hypertriglyceridemia Reason for Exam Hot flashes Reason for Exam Vitamin D deficiency Performed By: #### F SH, T3F, CBC, TSH3, [id number], CMP, SHAMA, FE and TIBC, LIPID, CUU, [id number], UA #### [facility] [address] [place] [address] [place] #### ESTRADIOL, LH #### [facility] , Iron binding capacity [Mass/ volume] in Serum or PlasmaOrdered By: Jes Cruz on 11-01-2023 Iron binding capacity [Mass/Vol] 423 ug/dL 255-450 [facility] Iron saturation [Mass Fracti on] in Serum or PlasmaOrdered By: Jes Cruz on 11-01-2023 Iron saturation [Mass fraction] 25.1 % 20-50 [facility] Ketones [Presence] in Urine by Test stripOrdered By: Jes Cruz on 11-01-2023 Ketones Ql (U) Negative Normal Negative [facility] Comment on above: Order Comment: Reaso n for Exam Microscopic hematuria Name Collection Type:: Voided Performed By: #### F SH, T3F, CBC, TSH3, [id number], CMP, SHAMA, FE and TIBC, LIPID, CUU, [id number], UA #### [facility] [address] [place] [address] [place] #### ESTRADIOL, LH #### [facility] , Leukocyte esterase [Presence ] in Urine by Test stripOrdered By: Jes Cruz on 11-01-2023 Leukocyte esterase Test strip Ql (U) Negative Normal Negative [facility] Comment on above: Order Comment: Reaso n for Exam Microscopic hematuria Name Collection Type:: Voided Performed By: #### F SH, T3F, CBC, TSH3, [id number], CMP, SHAMA, FE and TIBC, LIPID, CUU, [id number], UA #### [facility] [address] #### ESTRADIOL, LH #### [facility] , Leukocytes [#/volume] correc ricardo for nucleated erythrocytes in Blood by Automated counOrdered By: Jes Cruz on 11-01-2023 WBC corrected for nucl RBC Auto (Bld) [#/Vol] 7.3 10*3/uL 3.8-11.6 [facility] Leukocytes [#/volume] in Blo od by Automated countOrdered By: Jes Cruz on 11-01-2023 WBC (Bld) [#/Vol] 7.3 10*3/uL Normal 3.8-11.6 [facility] Comment on above: Order Comment: Reaso n for Exam Primary hypertension Performed By: #### F SH, T3F, CBC, TSH3, [id number], CMP, SHAMA, FE and TIBC, LIPID, CUU, [id number], UA #### [facility] [address] #### ESTRADIOL, LH #### [facility] , Lipid Panelon 11-01-2023 LDL Cholesterol,Calculated 198 mg/dL High 0-100 [facility] Comment on above: Order Comment: [...] 189 mg/dL Very high Performed By: #### F SH, T3F, CBC, TSH3, [id number], CMP, SHAMA, FE and TIBC, LIPID, CUU, [id number], UA #### [facility] [address] [place] [address] #### ESTRADIOL, LH #### [facility] , Triglyceride w/Reflex 145 mg/dL Normal 0-149 [facility] Comment on above: [...] Prevention (CDC) test method. Performed By: #### F SH, T3F, CBC, TSH3, [id number], CMP, SHAMA, FE and TIBC, LIPID, CUU, [id number], UA #### [address] #### ESTRADIOL, LH #### [facility] , VLDL CHOLESTEROL 29 mg/dL Normal [facility] Comment on above: Order Comment: Reaso n for Exam Primary hypertension Reason for Exam Low iron Reason for Exam Primary hypertension;Hypertriglyceridemia Reason for Exam Hot flashes Reason for Exam Vitamin D deficiency Performed By: #### F SH, T3F, CBC, TSH3, [id number], CMP, SHAMA, FE and TIBC, LIPID, CUU, [id number], UA #### [address] #### ESTRADIOL, LH #### [facility] , Luteinizing Hormoneon 2023 Luteinizing Hormone 20.7 m[iU]/mL Normal . [facility] Comment on above: Order Comment: Reaso n for Exam Hot flashes Result Comment: Adul t Female Range Follicular phase 2.4 - 12.6 Ovulation phase 14.0 - 95.6 Luteal phase 1.0 - 11.4 Postmenopausal 7.7 - 58.5 Performed By: #### F SH, T3F, CBC, TSH3, [id number], CMP, SHAMA, FE and TIBC, LIPID, CUU, [id number], UA ####[facility] [id number] [place] [address] [place]#### ESTRADIOL, LH ####[facility] , Lymphocytes [#/volume] in Bl ood by Automated countOrdered By: Jes Cruz on 11-01-2023 Lymphocytes (Bld) [#/Vol] 2.0 10*3/uL Normal 1.00-4.8 [facility] Comment on above: Order Comment: Reaso n for Exam Primary hypertension Performed By: #### F SH, T3F, CBC, TSH3, [id number], CMP, SHAMA, FE and TIBC, LIPID, CUU, [id number], UA #### [place] [address] [place] #### ESTRADIOL, LH #### [facility] , Lymphocytes/100 leukocytes i n Blood by Automated countOrdered By: Jes Cruz on 11-01-2023 Lymphocytes/100 WBC (Bld) 28.0 % Normal . [facility] [facility] Comment on above: Order Comment: Reaso n for Exam Primary hypertension Performed By: #### F SH, T3F, CBC, TSH3, [id number], CMP, SHAMA, FE and TIBC, LIPID, CUU, [id number], UA #### [address] #### ESTRADIOL, LH #### [facility] , MCH [Entitic mass] by Automa ricardo countOrdered By: Jes Cruz on 11-01-2023 MCH (RBC) [Entitic mass] 32.3 pg Normal 24.7-34.3 [facility] Comment on above: Order Comment: Reaso n for Exam Primary hypertension Performed By: #### F SH, T3F, CBC, TSH3, [id number], CMP, SHAMA, FE and TIBC, LIPID, CUU, [id number], UA #### [place] [address] [place] #### ESTRADIOL, LH #### [facility] , MCHC Auto (RBC) [Mass/Vol]Or dered By: Jes Cruz on 11-01-2023 MCHC (RBC) [Mass/Vol] 33.6 g/dL 32.0-35.0 [facility] MCV [Entitic volume] by Auto mated countOrdered By: Jes Cruz on 11-01-2023 MCV (RBC) [Entitic vol] 96.0 fL Normal 80-100 [facility] Comment on above: Order Comment: Reaso n for Exam Primary hypertension Performed By: #### F SH, T3F, CBC, TSH3, [id number], CMP, SHAMA, FE and TIBC, LIPID, CUU, [id number], UA #### [facility] [address] [place] [address] #### ESTRADIOL, LH #### [facility] , Neutrophils [#/volume] in Bl ood by Automated countOrdered By: Jes Cruz on 11-01-2023 Neutrophils (Bld) [#/Vol] 4.3 10*3/uL Normal 1.8-7.7 [facility] Comment on above: Order Comment: Reaso n for Exam Primary hypertension Performed By: #### F SH, T3F, CBC, TSH3, [id number], CMP, SHAMA, FE and TIBC, LIPID, CUU, [id number], UA #### [facility] [address] [place] [address] [place] #### ESTRADIOL, LH #### [facility] , Nitrite Test strip Ql (U)Ord ered By: Jes Cruz on 11-01-2023 Nitrite Ql (U) Negative Negative [facility] No Panel InformationOrdered By: Jes Cruz on 11-01-2023 Estimated GFR (CKD-EPI) > 60.0 mL/Min [facility] Creatinine Clearance (Chem N/A [facility] Nucleated erythrocytes [Pres ence] in Blood by Automated countOrdered By: Jes Cruz on 11-01-2023 Nucleated RBC Auto Ql (Bld) 0.1 /100{WBC} 0-0.5 [facility] Platelet mean volume [Entiti c volume] in Blood by Automated countOrdered By: Jes Cruz on 11-01-2023 Platelet mean volume (Bld) [Entitic vol] 8.3 fL Normal 6.3-10.7 [facility] Comment on above: Order Comment: Reaso n for Exam Primary hypertension Performed By: #### F SH, T3F, CBC, TSH3, [id number], CMP, SHAMA, FE and TIBC, LIPID, CUU, [id number], UA #### [facility] [address] [place] [address] [place] #### ESTRADIOL, LH #### [facility] , Platelets [#/volume] in Bloo d by Automated countOrdered By: Jes Cruz on 11-01-2023 Platelets (Bld) [#/Vol] 384 10*3/uL Normal 150-450 [facility] Comment on above: Order Comment: Reaso n for Exam Primary hypertension Performed By: #### F SH, T3F, CBC, TSH3, [id number], CMP, SHAMA, FE and TIBC, LIPID, CUU, [id number], UA #### [facility] [address] [place] [address] [place] #### ESTRADIOL, LH #### [facility] , Potassium [Moles/volume] in Serum or PlasmaOrdered By: Jes Cruz on 11-01-2023 Potassium [Moles/Vol] 4.3 mmol/L Normal 3.5-5.1 [facility] Comment on above: Order Comment: Reaso n for Exam Primary hypertension Reason for Exam Low iron Reason for Exam Primary hypertension;Hypertriglyceridemia Reason for Exam Hot flashes Reason for Exam Vitamin D deficiency Performed By: #### F SH, T3F, CBC, TSH3, [id number], CMP, SHAMA, FE and TIBC, LIPID, CUU, [id number], UA #### [facility] [address] [place] [address] [place] #### ESTRADIOL, LH #### [facility] , Protein Test strip (U) [Mass /Vol]Ordered By: Jes Anthony on 11-01-2023 Protein (U) [Mass/Vol] Negative Negative [facility] Protein [Mass/volume] in Ser um or PlasmaOrdered By: Jes Cruz on 11-01-2023 Protein [Mass/Vol] 6.9 g/dL Normal 6.4-8.9 [facility] Comment on above: Order Comment: Reaso n for Exam Primary hypertension Reason for Exam Low iron Reason for Exam Primary hypertension;Hypertriglyceridemia Reason for Exam Hot flashes Reason for Exam Vitamin D deficiency Performed By: #### F SH, T3F, CBC, TSH3, [id number], CMP, SHAMA, FE and TIBC, LIPID, CUU, [id number], UA #### [facility] [address] [place] [address] #### ESTRADIOL, LH #### [facility] , Serum globulin measurement b y calculation (mass/volume)Ordered By: Jes Cruz on 11-01-2023 Globulin (S) [Mass/Vol] 2.6 g/dL [facility] Comment on above: Order Comment: Reaso n for Exam Primary hypertension Reason for Exam Low iron Reason for Exam Primary hypertension;Hypertriglyceridemia Reason for Exam Hot flashes Reason for Exam Vitamin D deficiency Performed By: #### F SH, T3F, CBC, TSH3, [id number], CMP, SHAMA, FE and TIBC, LIPID, CUU, [id number], UA #### [facility] [address] [place] [address] [place] #### ESTRADIOL, LH #### [facility] , Serum or plasma albumin/glob ulin mass ratioOrdered By: Jes Cruz on 11-01-2023 Albumin/Globulin [Mass ratio] 1.7 {ratio} [facility] Comment on above: Order Comment: Reaso n for Exam Primary hypertension Reason for Exam Low iron Reason for Exam Primary hypertension;Hypertriglyceridemia Reason for Exam Hot flashes Reason for Exam Vitamin D deficiency Performed By: #### F SH, T3F, CBC, TSH3, [id number], CMP, SHAMA, FE and TIBC, LIPID, CUU, [id number], UA #### [facility] [address] [place] [address] [place] #### ESTRADIOL, LH #### [facility] , Serum or plasma anion gap de terminationOrdered By: Jes Cruz on 11-01-2023 Anion gap [Moles/Vol] 10.8 mmol/L Normal 6.0-15.0 [facility] Comment on above: Order Comment: Reaso n for Exam Primary hypertension Reason for Exam Low iron Reason for Exam Primary hypertension;Hypertriglyceridemia Reason for Exam Hot flashes Reason for Exam Vitamin D deficiency Performed By: #### F SH, T3F, CBC, TSH3, [id number], CMP, SHAMA, FE and TIBC, LIPID, CUU, [id number], UA #### [facility] [address] [place] [address] [place] #### ESTRADIOL, LH #### [facility] , Serum or plasma estradiol (E 2) measurement (mass/volume)Ordered By: Jes Cruz on 11-01-2023 E2 [Mass/Vol] pg/mL . [facility] Comment on above: Adult Female Range F ollicular phase 12.5 - 166.0 Ovulation phase 85.8 - 498.0 Luteal phase 43.8 - 211.0 Postmenopausal <6.0 - 54.7 1st trimester 215.0 - >4300.0Roche ECLIA methodologyPerformed at: - [facility] [address] [id number] Director: Kurtis Gallegos PhD, Phone: [phone] Serum or plasma high density lipoprotein (HDL) cholesterol measurementOrdered By: Jes Cruz on 11-01-2023 Cholesterol in HDL [Mass/Vol] 58 mg/dL Normal 23-92 [facility] Comment on above: HDL CHOL ATP-III CLA [...] < 40 mg/dL HIGH Performed By: #### F SH, T3F, CBC, TSH3, [id number], CMP, SHAMA, FE and TIBC, LIPID, CUU, [id number], UA #### [facility] [address] [place] [address] [place] #### ESTRADIOL, LH #### [facility] , Serum or plasma lutropin paramjit surement (units/volume)Ordered By: Jes Cruz on 11-01-2023 Lutropin Qn 20.7 m[IU]/mL . [facility] Comment on above: Adult Female Range F ollicular phase 2.4 - 12.6 Ovulation phase 14.0 - 95.6 Luteal phase 1.0 - 11.4 Postmenopausal 7.7 - 58.5 Serum or plasma total choles terol/high density lipoprotein (HDL) cholesterol mass ratOrdered By: Jes Cruz on 11-01-2023 Cholesterol.total/Chol esterol in HDL [Mass ratio] 4.9 {ratio} Normal <5.0 [facility] Comment on above: Order Comment: Reaso n for Exam Primary hypertension Reason for Exam Low iron Reason for Exam Primary hypertension;Hypertriglyceridemia Reason for Exam Hot flashes Reason for Exam Vitamin D deficiency Performed By: #### F SH, T3F, CBC, TSH3, [id number], CMP, SHAMA, FE and TIBC, LIPID, CUU, [id number], UA #### [facility] [address] [place] [address] [place] #### ESTRADIOL, LH #### [facility] , Sodium [Moles/volume] in Ser um or PlasmaOrdered By: Jes Cruz on 11-01-2023 Sodium [Moles/Vol] 140 mmol/L Normal 136-145 [facility] Comment on above: Order Comment: Reaso n for Exam Primary hypertension Reason for Exam Low iron Reason for Exam Primary hypertension;Hypertriglyceridemia Reason for Exam Hot flashes Reason for Exam Vitamin D deficiency Performed By: #### F SH, T3F, CBC, TSH3, [id number], CMP, SHAMA, FE and TIBC, LIPID, CUU, [id number], UA #### [facility] [address] [place] [address] [place] #### ESTRADIOL, LH #### [facility] , Specific gravity Test strip (U) [Rel density]Ordered By: Jes Cruz on 11-01-2023 Specific gravity (U) [Rel density] 1.014 1.001-1.030 [facility] Thyrotropin [Units/volume] i n Serum or PlasmaOrdered By: Jes Cruz on 11-01-2023 TSH Qn 1.49 m[IU]/L Normal 0.45-5.33 [facility] Comment on above: Order Comment: Reaso n for Exam Primary hypertension Reason for Exam Low iron Reason for Exam Primary hypertension;Hypertriglyceridemia Reason for Exam Hot flashes Reason for Exam Vitamin D deficiency Performed By: #### F SH, T3F, CBC, TSH3, [id number], CMP, SHAMA, FE and TIBC, LIPID, CUU, [id number], UA ####[facility] [address] [place] [address] [place]#### ESTRADIOL, LH ####[facility] , Transferrin [Mass/volume] in Serum or PlasmaOrdered By: Jes Cruz on 11-01-2023 Transferrin [Mass/Vol] 302 mg/dL Normal 203-362 [facility] Comment on above: Order Comment: Reaso n for Exam Primary hypertension Reason for Exam Low iron Reason for Exam Primary hypertension;Hypertriglyceridemia Reason for Exam Hot flashes Reason for Exam Vitamin D deficiency Performed By: #### F SH, T3F, CBC, TSH3, [id number], CMP, SHAMA, FE and TIBC, LIPID, CUU, [id number], UA #### [facility] [address] [place] [address] [place] #### ESTRADIOL, LH #### [facility] , Triglyceride [Mass/volume] i n Serum or PlasmaOrdered By: Jes Cruz on 11-01-2023 Triglyceride [Mass/Vol] 145 mg/dL 0-149 [facility] Comment on above: TRIG ATP III CLASSIF ICATIONTRIG less than 150 mg/dL NormalTRIG 150-199 mg/dL Borderline highTRIG 200-500 mg/dL High TRIG greater than 500 mg/dL Very highStandard traceable to the Center for Disease Conrtrol and Prevention (CDC) test method. Triiodothyronine (T3) Freeon 11-01-2023 Triiodothyronine (T3) Free 2.86 pg/mL Normal 2.50-3.90 [facility] Comment on above: Order Comment: Reaso n for Exam Hot flashes Result Comment: PERF ORMED BY: [place] [address] PATHOLOGIST STONE RIGGER PALOMO WESLEY M.D. Performed By: #### F SH, T3F, CBC, TSH3, [id number], CMP, SHAMA, FE and TIBC, LIPID, CUU, [id number], UA #### [facility] [address] [place] [address] #### ESTRADIOL, LH #### [facility] , Triiodothyronine (T3) Free [ Mass/volume] in Serum or PlasmaOrdered By: Jes Cruz on 11-01-2023 Free T3 [Mass/Vol] 2.86 pg/mL 2.50-3.90 [facility] Urea nitrogen [Mass/volume] in Serum or PlasmaOrdered By: Jes Cruz on 11-01-2023 Urea nitrogen [Mass/Vol] 17 mg/dL Normal 7-25 [facility] Comment on above: Order Comment: Reaso n for Exam Primary hypertension Reason for Exam Low iron Reason for Exam Primary hypertension;Hypertriglyceridemia Reason for Exam Hot flashes Reason for Exam Vitamin D deficiency Performed By: #### F SH, T3F, CBC, TSH3, [id number], CMP, SHAMA, FE and TIBC, LIPID, CUU, [id number], UA #### [facility] [address] [place] [address] [place] #### ESTRADIOL, LH #### [facility] , Urinalysison 11-01-2023 Bilirubin,Urine Negative Normal Negative [facility] Comment on above: Order Comment: Reaso n for Exam Microscopic hematuria Name Collection Type:: Voided Performed By: #### F SH, T3F, CBC, TSH3, [id number], CMP, SHAMA, FE and TIBC, LIPID, CUU, [id number], UA #### [place] [address] [place] #### ESTRADIOL, LH #### [facility] , Glucose Ql (U) Normal Normal Normal [facility] Comment on above: Order Comment: Reaso n for Exam Microscopic hematuria Name Collection Type:: Voided Performed By: #### F SH, T3F, CBC, TSH3, [id number], CMP, SHAMA, FE and TIBC, LIPID, CUU, [id number], UA #### [place] [address] [place] #### ESTRADIOL, LH #### [facility] , Nitrite,Urine Negative Normal Negative [facility] Comment on above: Order Comment: Reaso n for Exam Microscopic hematuria Name Collection Type:: Voided Performed By: #### F SH, T3F, CBC, TSH3, [id number], CMP, SHAMA, FE and TIBC, LIPID, CUU, [id number], UA #### [place] [address] [place] #### ESTRADIOL, LH #### [facility] , Occult Blood,Urine Negative Normal Negative [facility] Comment on above: Order Comment: Reaso n for Exam Microscopic hematuria Name Collection Type:: Voided Result Comment: PERF ORMED BY: [place] [address] PATHOLOGIST ST[employer] RIGGER PALOMO WESLEY M.D. Performed By: #### F SH, T3F, CBC, TSH3, [id number], CMP, SHAMA, FE and TIBC, LIPID, CUU, [id number], UA #### [place] [address] [place] #### ESTRADIOL, LH #### [facility] , Protein,Urine Negative Normal Negative [facility] Comment on above: Order Comment: Reaso n for Exam Microscopic hematuria Name Collection Type:: Voided Performed By: #### F SH, T3F, CBC, TSH3, [id number], CMP, SHAMA, FE and TIBC, LIPID, CUU, [id number], UA #### [place] [address] [place] #### ESTRADIOL, LH #### [facility] , Specificy [place],Urine 1.014 Normal 1.001-1.030 [facility] Comment on above: Order Comment: Reaso n for Exam Microscopic hematuria Name Collection Type:: Voided Performed By: #### F SH, T3F, CBC, TSH3, [id number], CMP, SHAMA, FE and TIBC, LIPID, CUU, [id number], UA #### [place] [address] [place] #### ESTRADIOL, LH #### [facility] , Urobilinogen,Urine Normal Normal Normal [facility] Comment on above: Order Comment: Reaso n for Exam Microscopic hematuria Name Collection Type:: Voided Performed By: #### F SH, T3F, CBC, TSH3, [id number], CMP, SHAMA, FE and TIBC, LIPID, CUU, [id number], UA #### [place] [address] [place] #### ESTRADIOL, LH #### [facility] , Urine Cultureon 11-01-2023 Bacteria identified Cx Nom (U) Reason for Exam Microscopic hematuria Urine Reason for Exam: Microscopic hematuria : Urine <9,000 colonies/ml mixed bacterial skin contaminants 2 Days PERFORMED BY: [place] [address] PATHOLOGIST ST[employer] RIGGER PALOMO WESLEY M.D. Normal [facility] Comment on above: Performed By: #### F SH, T3F, CBC, TSH3, [id number], CMP, SHAMA, FE and TIBC, LIPID, CUU, [id number], UA ####[facility]#### ESTRADIOL, LH ####[facility] , Urine appearanceOrdered By: Jes Cruz on 11-01-2023 Appearance (U) Clear Normal Clear [facility] Comment on above: Order Comment: Reaso n for Exam Microscopic hematuria Name Collection Type:: Voided Performed By: #### F SH, T3F, CBC, TSH3, [id number], CMP, SHAMA, FE and TIBC, LIPID, CUU, [id number], UA #### [place] [address] [place] #### ESTRADIOL, LH #### [facility] , Urine culture routineOrdered By: Jes Cruz on 11-01-2023 Bacteria identified Cx Nom (U) 2 Days [facility] Urobilinogen Test strip (U) [Mass/Vol]Ordered By: Jes Cruz on 11-01-2023 Urobilinogen (U) [Mass/Vol] Normal mg/dL Normal [facility] Vit. B12/Folate Profileon Folate 10.3 ng/mL Normal >5.9 [facility] Comment on above: [...] ng/ml are considered deficient. Performed By: #### F SH, T3F, CBC, TSH3, [id number], CMP, SHAMA, FE and TIBC, LIPID, CUU, [id number], UA ####[facility] [place] [address] [place]#### ESTRADIOL, LH ####[facility] , Vitamin B12 ser/plasOrdered By: Jes Cruz on 11-01-2023 Cobalamin (Vitamin B12) [Mass/Vol] 208 pg/mL Normal 180-914 [facility] Comment on above: Order Comment: Reaso n for Exam Primary hypertension Reason for Exam Low iron Reason for Exam Primary hypertension;Hypertriglyceridemia Reason for Exam Hot flashes Reason for Exam Vitamin D deficiency Performed By: #### F SH, T3F, CBC, TSH3, [id number], CMP, SHAMA, FE and TIBC, LIPID, CUU, [id number], UA ####[place] [address] [address]#### ESTRADIOL, LH ####[facility] , Vitamin D 25 Hydroxy Totalon 11-01-2023 Vitamin D 25 Hydroxy Total 34.2 ng/mL Normal 30-100 [facility] Comment on above: [...] practice guideline. JCEM. 2010; 96(7):1911-30. PERFORMED BY: [facility] [address] [place] [id number] PATHOLOGIST STONE RIGGER PALOMO WESLEY M.D. Performed By: #### F SH, T3F, CBC, TSH3, [id number], CMP, SHAMA, FE and TIBC, LIPID, CUU, [id number], UA ####[place] [address] [place] [id number] [facility]#### ESTRADIOL, LH ####[facility] , Vitamin D+Metabolites [Mass/ volume] in Serum or PlasmaOrdered By: Jes Cruz on 11-01-2023 Vitamin D+Metabolites [Mass/Vol] 34.2 ng/mL 30-100 [facility] Comment on above: VITAMIN D STATUS 25( [place])VITAMIN D RANGE (ng/mL) Deficient <20 Insufficient 20 to <30Sufficient 30 to 100Reference: Baron MF,Suze NC, Abdiel MAXWELL, et al. Evaluation,treatment, and prevention of vitamin D deficiency; an Endocrine Society clinical practice guideline. JCEM. 2010; 96(7):1911-30. pH of Urine by Test stripOrd ered By: Jes Cruz on 11-01-2023 pH (U) 6.5 [pH] Normal 5.0-9.0 [facility] Comment on above: Order Comment: Marilee worrell for Exam Microscopic hematuria Name Collection Type:: Voided Performed By: #### F SH, T3F, CBC, TSH3, [id number], CMP, SHAMA, FE and TIBC, LIPID, CUU, [id number], UA #### [facility] [address] [place] [address] #### ESTRADIOL, LH #### [facility] , Ambulatory [...] for choosing us for your care. Normal [facility] Provider Letteron 10-14-2023 Provider Letter Provider Letter October 14, 2023 ISELA CRAIG [address] [place] [id number] : 1970 To Whom It May Concern, Please excuse above patient from work. Date of Illness: From: 10/14/23 To: 10/14/23 May Return to Work On: Patient had an appointment on 10/14/23 with SHABNAM Bowens Restrictions: None Comments: Patient had an appointment with SHABNAM Bowens on 10/14/23 Sincerely, [facility]3 Normal [facility] Urology Office/Clinic Noteon 10-14-2023 Urology Office/Clinic [...] E&M of Est. Patient Moderate 30-39 Min 43519 2. History of kidney stones (Z87.442: Personal [...] Urnls Dip Stick Auto w/o Microscopy POC 43363 Follow-up With When Contact Information [facility] [place] [address] Business (1) Additional Instructions: for [...] disease: Mother. (more content not included)... Normal [facility] Comment on above: Result Comment: Elec tronically Signed By: JES ROLLE PA-C\.guillermina\Date and Time Signed: 10/14/23 13:24 EDT Main OR Intraoperative Recor don 10-05-2023 Main OR Intraoperative Record Main OR Intraoperative Record IntraOp Document Type FTURO Summary Primary Physician: Alexandro PARTIDA MD Finalized Date/Time: 10/05/23 09:45:46 Pt. Name: ISELA CRAIG Maya/Sex: 1970 Female Med Rec #: [id number] Physician: Alexandro PARTIDA MD Financial #: [id number] Pt. Type: O Room/Bed: / Admit/Disch: 10/05/23 [...] Kendall R Role Performed Surgeon - Primary Heater Room Helper - Primary Scrub - Primary Time [...] 10/05/23 09:42 Estrella Aguirre 10/05/23 09:45 Normal [facility] Main OR Preoperative Recordo n 10-05-2023 Main OR Preoperative Record Main OR Preoperative Record Holding Area Document Type FTURO Summary Primary Physician: Alexandro PARTIDA MD Finalized Date/Time: 10/05/23 08:57:00 Pt. Name: RAFA BOOKERKASH Benjamín Trejo/Sex: 1970 Female Med Rec #: [id number] Physician: Alexandro PARTIDA MD Financial #: [id number] Pt. Type: O Room/Bed: / Admit/Disch: 10/05/23 [...] By: SEAN Pagan RN, Ruthann 10/05/23 08:51 Ej RN, Glendy ESTRADA 10/05/23 08:57 Normal [facility] Operative Reporton Operative Report Operative Report [...] Rolle in a month or 2.. Normal [facility] Comment on above: Result Comment: Elec tronically Signed By: Alexandro PARTIDA MD\.br\Date and Time Signed: 10/05/23 09:46 EDT Provider Letteron 10-05-2023 Provider Letter Provider Letter October 05, 2023 To Whom It May Concern, Please excuse above patient from work. Date of Illness: From: 10/05/2023 To: 10/05/2023 May Return On:10/05/2023 Sincerely, [facility] [address] [place] [address] [facility] Insurance Correspondenceon 0 09-28-2023 Insurance Correspondence [id number]. 00TIFF [facility] Coding Summary.on 09-23-2023 Coding Summary. BYGZEaoy19UKk3vUs+PG hl YWQ+OP0QJGApB75eiWVvlA 1yW3HUEVdPPewsBEEDAScH LyYpgnIxLS2lzQKgOTDe IC8+BY0nUGVbHvwwxAHpp4 S0dYQ1O48qzi9pIXqtwTK0 NLTqThFtvmybq9hkgNy4PZ cuNmluOyBt JPXgqD13THC8pZ15Yb18tB IagZFwj4xlbTc8GuSoRNGv HMM4oHqjCIlcq1LfNZGuR0 4pgYOqu6L7 PZPngHbebBKnMlYdiTC4vE 3yLSgmzhbaa3xmgikhPad1 zu24uFBuz3B1kRP6E4Wqma Y3TREfaZPj UecbwWLNaP8ahamza5pkhy glWzWpKOCnOIy9RSd9EXDl oEciBhEhZD63AVW0YUHtly GuY6NxXYYo rMcgZiH2q5U1Ck3FZ3XKKk rtC4QQNQVIJRhwqCY+PC90 zb56U5NrIkpyJtk9EIIcLY R2vRU6uN2k VTCpGNbgw5Z2yLA9M0Slym Gseq1os8koGNXwJRapO78v yKBtb3E8SJHubNY0QJHkoQ ddKzEqmY34 Oyc+SEHipPkpk6MmPggyx1 xxc5cobJq9NwmoMONyvxJl zChbZBU6a9YhHn9jIVUpnV D0aVR9oR0k RpGaBuE5WBzfY722GtRhcW ZxIgqyA79kX5CtpKQ+PHRy Cmp9GJHslNgyLZ5mP7NuHT RpbmctbGVm oJyvXF2lAOFcuxqiEWHizT 9vKVYnL7x3YvEnTaW8CVzi M8JySVBcfzwjWj79zG0zNv GjRgA2BAvx D7GnooG9RFAooXEdCXcgFP O1J17nt2Q6NUQtRBFdMIX3 gZY0mD2nbSvsofnfcTWhdV sgdmVydGlj WZwqMYktC564JZKfxKtgQs NvZGluZyBEYXRlOiAgMDYv MjAvMjAyNDwvdGQ+PHRkIH F2tNeqSAHe yDVsXXvuJu7uyZywvIyjDG 1fPRAfsfolDQWqlA5oVDTx gTPzbCdeXT2fAOAmrpbvk1 07RaGhZRG3 SQBwlYSpE6CfcW5zXfPlLY MwMGReD9XxtDSaQHwtN857 BXkgIuS9EBNjwkOjW1AoUH FsaWduOiB0 t6K2Vo1Dh6RyduwlC7KohK UaRlJdSydfDQh5U1FyVfhj dHI+VU36VRPmFR32ZKg4UC Q0jFpcSVxz TEMzN9LmnS3sXyCyXQSaWA RkOyc+PHRhYmxlIHdpZHRo TNgdLPNnUlEruEmfTF0mCk 9yZGVyLWNv oDphiWPhBhChf6dlSFPmNH ghBK4qbPrhA7WdvGN7PMWb a5v2St15H48vU3XzmWE+PG DmbIG3yQQ4 kT2xXsHmNvP0VAvjQ087Gq NxeUYvVzptl3hpb0otwXe6 NhW9MCYeqkVjhKzeNNP7m6 UrXu32P78f IHdpZHRoPSIxNSUiIHZhbG labj0jxM7sRf4+PGNvbCB3 rUI0lT5qRxYdKfU9ADzlL9 49InRvcCIv Eoket7hsp3fxdNg5UhTyKX QocuQymDjrNKJ6w7CjYu99 C2MhcHsay1ExIua4zn34yA Zwp4C3pFL2 E6XaHKKyusomgMIavAeqDS 1rMRJvahkdSSRyqY9iLWTt R0p9FeIfJyP2APekK0Dlru T1WGYwlKRo MBIxvVQAwN7ekmtfn8rplg zlCaPpWSNuWYi0POk1FABh rPmeNiTlOTJ1LxR3NIV4nI XxnY7iyUgq oqbanG2nNmp+ENN6rSVltL IVMO1hQcivrJH+PHRkIHN0 qSnwMFwpWRPkdI3uJRXeO4 i4TzJbFyF8 JZvvX7KpzrT3RRHcmJAjCF ZmxRIEfE6jlqzfi8ycltst HrOiJXFaENo2TOa2BNEziN duOiBsZWZ0 XcF3VVD9mLPvwD0ubCykhs obeE7wTrp+QmlydGggRGF0 JWb3Q3LrPwj4SRLqpBypFD 0ncGFkZGlu Gj8yqUykrIpbFV7cQFWhxp ayd395CxAvr5ehSYEvwHHk OFimGFH4B79rq0T1YTXxCS JcUMY5nSE8 hY4wwXnoaaegkDHtkZpvqo GrnEndUUtnRVheF810GKQj bWcnGfGxFFx2W3FeCah6TA ObjTvtLZ6a zNOgQTsfGg3gpLexgRbyEY 6dBDSokonbu726QdZvq6rz DLYfmEPhNJmrHFC4Q72sk9 T9YECkJKSa VOE1mAA9lE0ocUmlnczkvH VmdDsgdmVydGljYWwtYWxp O516PWTrsWdiJgSjmRm8B0 IeOyz6NDMf eHfeXB5mvZOvZAxzRr0gfF rthXunPW0cJSHyipksu694 QuTxd5vhLJFwpFWkPWjqHN A0Y00qs6X9 IVYkRFNpVPL1gZN2hC2jlH lnbjogbGVmdDsgdmVydGlj YNldNEqwK929YBWhpFqdDf BhdGllbnQg ZLbiGXe8B9JnDoupnVG+PC 41XRKyJC13fLEygRGew9qm yXo0HpNiMLRsZVN1aRnyOX nom0RhSEHl B12pnKHzc1Y8EFDgqZqwnE LxVhYrbER4tE0gLMnrcyoj o1psxfvyGhest4cbte78cQ 79D51zKKhf ZHRoPSIzMCUiIHZhbGlnbj 4vcY5wJw3+GPBbyOD5sMB2 wA7lDFSePxG3MOoaG294Qb RvcCIvPjxj n8fkh7lsyVe4YgP2TDUzfi FnsSwzBFG1y9YnZz53M22p IHdpZHRoPSIyMCUiIHZhbG gozy4seP9i Ii8+ZXVmeNQ4hCB0jV2xGc HaKzK1OKdsM693YxSuqSBv RxukY35yY1ArwHT+PHRyPj b2ZORhxUep RB2ghUMnWGzrYe0pPWM9Be SmJtVaKDlgA4CyKSGetvdx tofgnVI9AGCcREMypZ43We 9udDogMTBw dWVZjC5enxkyt9khbpohWm MmSOStYPs7XVg2KKGkyZwh InPaENN4FhI9BXW2pKEfmU 1hbGlnbjog pZ7zL7KbJQJzmhyxZt68gE 9dYhIqCmZ8YHzuNcf+Q09S QklOLCBDSEVOTkkgSzwvdG Q+PHRkIHN0 dSceARncGUNplP8xUQOvW0 j0FaVfKfQ1YYcoV0LmLBMf hiigXk01dA2bDoSsRgV1UP tmN3KamdD6 IDWvoQZbEDloJIH0G80sj0 P4LRYeRUEaYYU1lWM9kZ0w bGlnbjogbGVmdDsgdmVydG ljYWwtYWxp M486MUGboOhsIvUpJpDxIn A3RvE2G7UwSlo2SSBsfYrd GJ3mcYMvTUktXb0ddOldjG ykNO3pOGCn djxaEQDezW0gKTZgpPNdyL vkOA9rYZPwmtmlj576XwJs DML6CVWhtELuO5FquN7jFv AjMDAwMDAw E7NplCNxIUcsC237XFjcVq N2TUXkoxHlJ0WqHPUlnQmf SrY3s4P9Rc93HhUEQWQktq wvdGQ+PHRk HEY2eGfiXClvKKZaaK3aZM DmW4f1OpKrWhX8JMrkB8Le CRSdulvgHn03jT5iPpJnGl F5NJinQ2Qa ppD5YBSibEUlEGrhGLR7U1 0os4Z1AFAeUGHeESG4lPE3 rI1vnZtjmfieoGUsbYaovv VydGljYWwt CKnfJ977NCXcbTwtUqIvxJ FsZTwvdGQ+CVOqQHX0bNsc XPcdCGBjgG0xCKBkU9f9Ze EkSoM1BWms O6JmKERsxhkwVx94fH4oCv NnXvB6ATntG9ZpkwK9AYCd pIMvLPymOXZ3H11fj3W5EL MwMDAwMDA7 gVB1qG1akKhwmxdhpEFsuJ uvptFukBdhYHrnTGiqN648 OQYfcCksXp31kDByrCdddt Q9C8HeRjep dHI+AW79JPSjLQ69nPWzvI Ukt5azhBv7NdLpCUSsZLX7 hHjfDOcfb8RuQZIeV66chJ Wez6Z9BWVr zViakACvTrPrvNL0dZ4aKF rpetwbv5antcytRzdwr7yw ol53eE11G74gWHvrPFMlIJ IzMCUiIHZh vFdknf8woC0lFv3+PGNvbC L8zYB3cB3wSpBmKuS1EHul N932LcTwaSIcZhsth6cvh4 ljwPc2LsXn MSNfgdLdzKouXHM1d4QpMc 67I91gTObcHIXxIOFcEOOj NKKbqBbunb3bzH6bRp3+PC 9td0qvxc58 zG79zBN+ARJfVTZ3xIbhUT laFRMkiZ3eDYrmVyX8KXHc AeXajO34xIGeRDcnGh9isC dlfSizBR6b OBWupogbf751NwJcc6ldHO GycKUkZCkrURC2W40kt9U1 ZGPoYVLpUSG7kRI1lD0grG lnbjogbGVm dDsgdmVydGljYWwtYWxpZ2 37CMNnbVhhHhDbpNOwF6kg gpHZYC3sQsojkIA+PHRkIH H7pVgsCZnz YVSdlM7nBRXdL2c7GvFcYb K6OWkiC9PbfxH3SNPecZIj OSJixYSYzF1snkpqz6xqlu ogIzAwMDAw IDu2JVb1MCVlwKtaEhVeSZ V0QyB5COB4aOQyzE1kvDuz rafepI7bKwc+RklOOjwvdG Q+PHRkIHN0 dHjjMOncTYKkvR6zFRCyR7 c0MkPtHaM0TAvqZ3XicyJ9 HYPdpYBkXMMwfSMFeT4mow xkf5rupmkf UtGtHIWcZUb4STb9BDMgsT xvPfTzIVI0GxU2SEM8uENe jJ6stKsggvzfxJ7qOnl+TV JOOjwvdGQ+ PQIuONI0lExsNDpjQFBofL 5vQMVgF5g6QyKxNyI7PZqf W1GmrqB4TNUmhGFiKZFlkS GAwN0sjrhg a4hpzuqzYiHaONYuWSn9ZN i5XPArmSoaYuGiOIY9HtX2 TUB8qQKutY3wtSeustrfiC 9wOyc+UGF5 BGC9YJ63RB15O3AeRqhirI FibGU+PHRhYmxlIHdpZHRo AOrfZWSyGvFenRtwVV5nMc 9yZGVyLWNv bGxhcHNlOiBjb (more content not included)... Normal [facility] CBC AND AUTO DIFFon 09-18-19 24 ABSOLUTE BASOPHIL 0.0 X10E9/L Normal 0.0-0.2 [facility] Comment on above: Performed By: #### C KEYSHAWN KIRKPATRICK, 3040-3 #### [facility] ([id number]) [address] [place] [address] 81196 ABSOLUTE NEUTROPHIL 3.2 X10E9/L Normal 1.5-6.6 [facility] Comment on above: Performed By: #### C KAYA CMP, 3040-3 #### [facility] ([id number]) [address] [place] [address] 23818 Basophils/100 WBC (Bld) 0.7 % Normal [facility] Comment on above: Performed By: #### C KAYA CMP, 3040-3 #### [facility] ([id number]) [address] [place] [address] 62249 Eosinophils (Bld) [#/Vol] 0.1 10*3/uL Normal 0.0-0.4 [facility] Comment on above: Performed By: #### Terrie KIRKPATRICK CMP, 3039-06 #### [facility] ([id number]) [address] [place] [address] 94158 Eosinophils/100 WBC (Bld) 2.4 % Normal [facility] Comment on above: Performed By: #### Terrie KIRKPATRICK [facility], 3039-06 #### [facility] ([id number]) [address] [place] [address] 72464 Erythrocyte distribution width (RBC) [Ratio] 13.6 % Normal 11.5-15.0 [facility] Comment on above: Performed By: #### Terrie KIRKPATRICK CMP, 3039-06 #### [facility] ([id number]) [address] [place] [address] 66144 Hematocrit (Bld) [Volume fraction] 34.5 % Low 35-47 [facility] Comment on above: Performed By: #### Terrie KIRKPATRICK [facility], 3039-06 #### [facility] ([id number]) [address] [place] [address] 57949 Hemoglobin (Bld) [Mass/Vol] 11.6 g/dL Low 11.7-15.5 [facility] Comment on above: Performed By: #### Terrie KIRKPATRICK CMP, 3039-06 #### [facility] ([id number]) [address] [place] [address] 34748 Lymphocytes (Bld) [#/Vol] 1.9 10*3/uL Normal 1.0-3.5 [facility] Comment on above: Performed By: #### Terrie KIRKPATRICK CMP, 3039-06 #### [facility] ([id number]) [address] [place] [address] 43822 Lymphocytes/100 WBC (Bld) 30.9 % Normal [facility] Comment on above: Performed By: #### Terrie KIRKPATRICK CMP, 3039-06 #### [facility] ([id number]) [address] [place] [address] 66148 MCH (RBC) [Entitic mass] 33.1 pg Normal 27-34 [facility] Comment on above: Performed By: #### Terrie KIRKPATRICK CMP, 3039-06 #### [facility] ([id number]) [address] [place] [address] 19358 MCHC (RBC) [Mass/Vol] 33.6 g/dL Normal 32-36 [facility] Comment on above: Performed By: #### Terrie KIRKPATRICK CMP, 3039-06 #### [facility] ([id number]) [address] [place] [address] 53086 MCV (RBC) [Entitic vol] 99 fL Normal 80-100 [facility] Comment on above: Performed By: #### Terrie KIRKPATRICK CMP, 3039-06 #### [facility] ([id number]) [address] [place] [address] 62219 Monocytes (Bld) [#/Vol] 0.9 10*3/uL Normal 0-0.9 [facility] Comment on above: Performed By: #### Terrie KIRKPATRICK CMP, 3039-06 #### [facility] ([id number]) [address] [place] [address] 29173 Monocytes/100 WBC (Bld) 13.8 % Normal [facility] Comment on above: Performed By: #### Terrie KIRKPATRICK CMP, 3039-06 #### [facility] ([id number]) [address] [place] [address] 78960 Neutrophils/100 WBC (Bld) 52.2 % Normal [facility] Comment on above: Performed By: #### Terrie KIRKPATRICK CMP, 3039-06 #### [facility] ([id number]) [address] [place] [address] 60310 Platelet mean volume (Bld) [Entitic vol] 9.1 fL Normal 7-12 [facility] Comment on above: Performed By: #### Terrie BCA, CMP, 3040-3 #### [facility] ([id number]) [address] [place] [address] 82606 Platelets (Bld) [#/Vol] 291 10*3/uL Normal 150-450 [facility] Comment on above: Performed By: #### Terrie KIRKPATRICK, CMP, 304-3 #### [facility] ([id number]) [address] [place] [address] 93964 RBC COUNT 3.50 X10E12/L Low 3.80-5.20 [facility] Comment on above: Performed By: #### Terrie BCA, CMP, 3039-3 #### [facility] ([id number]) [address] [place] [address] 01738 WBC (Bld) [#/Vol] 6.2 10*3/uL Normal 4.0-11.0 [facility] Comment on above: Performed By: #### Terrie BCA, CMP, 3040-3 #### [facility] ([id number]) [address] [place] [address] 17583 COMPREHENSIVE METABOLIC PANE Hema 09-18-2023 Albumin [Mass/Vol] 3.8 g/dL Normal 3.2-5.3 [facility] Comment on above: Performed By: #### Terrie BCA, CMP, 3040-3 #### [facility] ([id number]) [address] [place] [address] 48929 ALP [Catalytic activity/Vol] 64 U/L Normal 39-130 [facility] Comment on above: Performed By: #### Terrie BCA, CMP, 0-3 #### [facility] ([id number]) [address] [place] [address] 01246 ALT [Catalytic activity/Vol] 18 U/L Normal 0-31 [facility] Comment on above: Performed By: #### Terrie KIRKPATRICK CMP, 3039-3 #### [facility] ([id number]) [address] [place] [address] 25041 Anion gap [Moles/Vol] 7 mmol/L Normal 5-15 [facility] Comment on above: Performed By: #### Terrie KIRKPATRICK CMP, 3039-3 #### [facility] ([id number]) [address] [place] [address] 88826 AST [Catalytic activity/Vol] 19 U/L Normal 0-41 [facility] Comment on above: Performed By: #### Terrie KIRKPATRICK CMP, 3039-3 #### [facility] ([id number]) [address] [place] [address] 70826 Bilirubin [Mass/Vol] 0.6 mg/dL Normal 0.3-1.2 [facility] Comment on above: Performed By: #### Terrie KIRKPATRICK [facility], 3 #### [facility] ([id number]) [address] [place] [address] 46858 Calcium [Mass/Vol] 8.4 mg/dL Low 8.5-10.5 [facility] Comment on above: Performed By: #### Terrie KIRKPATRICK CMP, 3039-3 #### [facility] ([id number]) [address] [place] [address] [place] [address] Chloride [Moles/Vol] 105 mmol/L Normal 98-109 [facility] Comment on above: Performed By: #### Terrie KIRKPATRICK CMP, 3039-3 #### [facility] ([id number]) [address] [place] [address] 73526 CO2 [Moles/Vol] 26 mmol/L Normal 22-32 [facility] Comment on above: Performed By: #### C KEYSHAWN KIRKPATRICK, 3040-3 #### [facility] ([id number]) [address] [place] [address] 88850 Creatinine [Mass/Vol] 1.03 mg/dL High 0.40-1.00 [facility] Comment on above: Result Comment: METH OD TRACEABLE TO IDMS STANDARD Performed By: #### C KEYSHAWN KIRKPATRICK, 3 #### [facility] ([id number]) [address] [place] [address] 11540 GFR/1.73 sq M.predicted among non-blacks MDRD (S/P/Bld) [Vol rate/Area] 65 mL/min/{1.73_m2} Normal >59 [facility] Comment on above: Result Comment: Reported eGFR is based on the CKD-EPI 2020 equation that does not use a race coefficient. Performed By: #### C KEYSHAWN KIRKPATRICK, 3 #### [facility] ([id number]) [address] [place] [address] 46160 Glucose [Mass/Vol] 99 mg/dL Normal 65-99 [facility] Comment on above: Performed By: #### C KAYA [facility], 3 #### [facility] ([id number]) [address] [place] [address] 20538 Potassium [Moles/Vol] 3.4 mmol/L Low 3.5-5.0 [facility] Comment on above: Performed By: #### C KEYSHAWN KIRKPATRICK, 3 #### [facility] ([id number]) [address] [place] [address] 29794 Protein [Mass/Vol] 6.9 g/dL Normal 6.0-8.0 [facility] Comment on above: Performed By: #### C KEYSHAWN KIRKPATRICK, 0-3 #### [facility] ([id number]) [address] [place] [address] 13902 Sodium [Moles/Vol] 138 mmol/L Normal 134-146 [facility] Comment on above: Performed By: #### C KEYSHAWN KIRKPATRICK, 3040-3 #### [facility] ([id number]) [address] [place] [address] Urea nitrogen [Mass/Vol] 10 mg/dL Normal 5-23 [facility] Comment on above: Performed By: #### C KEYSHAWN KIRKPATRICK, 3040-3 #### [facility] ([id number]) [address] [place] [address] BRAIN WO CONTon CT BRAIN WO [...] Johny Frances on 09/18/2023 9:21 PM Normal [facility] LIPASEon 09-18-2023 Lipase [Catalytic activity/Vol] 36 U/L Normal 17-40 [facility] Comment on above: Performed By: #### C KEYSHAWN KIRKPATRICK, 3040-3 #### [facility] ([id number]) [address] [place] [address] URN MACROSCOPIC NURon 2023 BILIRUBIN SHADY Negative Normal NEG [facility] Comment on above: Performed By: #### N UM #### [facility] ([id number]) [address] [place] [address] [place] [address] BLOOD/HGB SHADY Trace Abnormal NEG [facility] Comment on above: Performed By: #### N UM #### [facility] ([id number]) [address] [place] [address], [place] [address] GLUCOSE SHADY Negative Normal NEG [facility] Comment on above: Performed By: #### N UM #### [facility] ([id number]) [address] [place] [address] [place] [address] KETONES SHADY Negative Normal NEG [facility] Comment on above: Performed By: #### N UM #### [facility] ([id number]) [address] [place] [address] [place] [address] LEUKOCYTE ESTERASE SHADY Negative Normal NEG Pr [facility] Comment on above: Performed By: #### N UM #### [facility] ([id number]) [address] [place] [address] [place] [address] NITRITE SHADY Negative Normal NEG [facility] Comment on above: Performed By: #### N UM #### [facility] ([id number]) [address] [place] [address] [place] [address] PH SHADY 6.0 Normal 5.0-8.5 [facility] Comment on above: Performed By: #### N UM #### [facility] ([id number]) [address] [place] [address] [place] [address] PROTEIN SHADY Negative Normal NEG [facility] Comment on above: Performed By: #### N UM #### [facility] ([id number]) [address] [place] [address] [place] [address] SPECIFIC GRAVITY SHADY 1.010 Normal 1.003-1.035 [facility] Comment on above: Performed By: #### N UM #### [facility] ([id number]) [address] [place] [address] [place] [address] UROBILINOGEN SHADY 0.2 eu/dL Normal <1.1 [facility] Comment on above: Performed By: #### N #### [facility] ([id number]) [address] [facility] [place] [address] Consent for Treatmenton 09-03 Consent for Treatment [id number]#1.0 0TIFF Normal [facility] Heart and Vascular Office/Cl inic Noteon [...] with voice recognition artificial intelligence software, specifically [employer], [employer] and or [employer]. Substitutions may have occurred due to the [...] History Ca (more content not included)... Normal [facility] Comment on above: Result Comment: Elec tronically Signed By: Deepak MOSES, Roosevelt Remy\.br\Date and Time Signed: 09/13/23 13:41 EDT Insurance Correspondenceon 0 09-13-2023 Insurance Correspondence [id number]#1.0 0TIFF [facility] Outside Labson 09-13-2023 Outside Labs [id number]#1. 00TIFF [facility] Outside Recordson 09-13-2023 Outside Records [id number]#1. 00TIFF [facility] Outside Records [id number]#1. 00TIFF [facility] Physician Orderon 09-13-2023 Physician Order [id number]#1. 00TIFF [facility] RAD - CT Reporton 08-31-[address] RAD - CT Report [id number]#1.00 TIFF [facility] Lab Reportson 08-17-2023 Lab Reports [id number]#1.0 0TIFF [facility] Urine Cytology ([facility])on 0 5-14-2024 Microscopic exam Cytology (U) [Interp] Diagnosis Info Invalid Interpretation Code [facility] Comment on above: Result Comment: A:Ur ine,Urine:Voided Interpretation - MicroScopic Description - Adequacy - Gross Description Site ID:A color Light Yellow fixative Alcohol Specimen designated Urine received in alcohol preservative and labeled with the patient?s name, consists of 60ml clear light yellow fluid. Electronically signed by : on: 08/17/2023 14:12:20 Performed By: #### 1 [id number] ####[facility] [address] [place] [address] Lab Reportson 08-11-2023 Lab Reports [id number]#1.00 TIFF Normal [facility] Physician Referralon 024 Physician Referral [id number] 03 [id number]#1.0 0TIFF Normal [facility] RAD - MISCon 08-11-2023 RAD - MISC [id number] 03 [id number]#1.0 0TIFF Normal [facility] RAD - Ultrasound Reporton RAD - Ultrasound Report [id number]#1.0 0TIFF Normal [facility] Screenson 08-11-2023 Screens [id number]#1.0 0TIFF Normal [facility] Ambulatory Visit Summaryon 0 08-10-2023 Ambulatory [...] Physician - JES CRUZ CNP Referring Physician JES SHARP CNP This Is Your Medications List Contact [...] JES ROLLE PA-C, URL When: Where: [address] [facility] [address] [address] [phone] Medications What How Much When Instructions Unchanged [...] make many (more content not included)... Normal [facility] Patient Educationon 08-10-19 Patient Education Pulmonary [...] require a prescription. You can also purchase xdrz-wid-ukjkxci medicines. Medicines may have nicotine in them [...] and encouragement. Call telephone quitlines, such as 0-676-BSSD-NOW, reach out to support groups, or work [...] quit smoki (more content not included)... Normal [facility] Urine Cytology ([facility])on 08-10-2023 Method of Extraction Voided Normal [facility] Comment on above: Performed By: #### 1 [id number] ####[facility] [address] [place] [address] Number of Jars 1 Invalid Interpretation Code [facility] Comment on above: Performed By: #### 1 [id number] ####[facility] [address] [place] [address] Specimen Urine Normal [facility] Comment on above: Performed By: #### 1 [id number] ####[facility] [address] [place] [address] Type of Service Technical Only Normal [facility] Comment on above: Performed By: #### 1 [id number] ####[facility] [address] [place] [address] Complete Blood Count Auto Di ffon 06-09-2023 Basophils (Bld) [#/Vol] 0.0 10*3/uL Normal 0.0-0.2 [facility] Comment on above: Order Comment: Reaso n for Exam Urinary frequency;Medication management;Anxiety;Microscopic Result Comment: PERF ORMED BY: [facility] [address] [place] [address] PATHOLOGIST STONE RIGGER PALOMO WESLEY M.D. Performed By: #### U RMACRERAT, FE and TIBC, LIPID, SHAMA, CMP, CBC, [id number], THYROID SC, LDLD ####[address]#### TOXASSURE, HIV SCREEN ####[facility] , Basophils/100 WBC (Bld) 0.3 % Normal . [facility] Comment on above: Order Comment: Reaso n for Exam Urinary frequency;Medication management;Anxiety;Microscopic Performed By: #### U RMACRERAT, FE and TIBC, LIPID, SHAMA, CMP, CBC, [id number], THYROID SC, LDLD ####[address]#### TOXASSURE, HIV SCREEN ####[facility] , Eosinophils (Bld) [#/Vol] 0.1 10*3/uL Normal 0.0-0.45 [facility] Comment on above: Order Comment: Reaso n for Exam Urinary frequency;Medication management;Anxiety;Microscopic Performed By: #### U RMACRERAT, FE and TIBC, LIPID, SHAMA, CMP, CBC, [id number], THYROID SC, LDLD ####[address]#### TOXASSURE, HIV SCREEN ####[facility] , Eosinophils/100 WBC (Bld) 1.7 % Normal . [facility] Comment on above: Order Comment: Reaso n for Exam Urinary frequency;Medication management;Anxiety;Microscopic Performed By: #### U RMACRERAT, FE and TIBC, LIPID, SHAMA, CMP, CBC, [id number], THYROID SC, LDLD ####[address]#### TOXASSURE, HIV SCREEN ####[facility] , Erythrocyte distribution width (RBC) [Ratio] 13.2 % Normal 11.9-15.3 [facility] Comment on above: Order Comment: Reaso n for Exam Urinary frequency;Medication management;Anxiety;Microscopic Performed By: #### U RMACRERAT, FE and TIBC, LIPID, SHAMA, CMP, CBC, [id number], THYROID SC, LDLD ####[address]#### TOXASSURE, HIV SCREEN ####[facility] , Hematocrit (Bld) [Volume fraction] 41.9 % Normal 34.0-46.4 [facility] Comment on above: Order Comment: Reaso n for Exam Urinary frequency;Medication management;Anxiety;Microscopic Performed By: #### U RMACRERAT, FE and TIBC, LIPID, SHAMA, CMP, CBC, [id number], THYROID SC, LDLD ####[address]#### TOXASSURE, HIV SCREEN ####[facility] , Hemoglobin (Bld) [Mass/Vol] 14.0 g/dL Normal 11.8-15.4 [facility] Comment on above: Order Comment: Reaso n for Exam Urinary frequency;Medication management;Anxiety;Microscopic Performed By: #### U RMACRERAT, FE and TIBC, LIPID, SHAMA, CMP, CBC, [id number], THYROID SC, LDLD ####[address]#### TOXASSURE, HIV SCREEN ####[facility] , Lymphocytes (Bld) [#/Vol] 2.2 10*3/uL Normal 1.00-4.8 [facility] Comment on above: Order Comment: Reaso n for Exam Urinary frequency;Medication management;Anxiety;Microscopic Performed By: #### U RMACRERAT, FE and TIBC, LIPID, SHAMA, CMP, CBC, [id number], THYROID SC, LDLD ####[address]#### TOXASSURE, HIV SCREEN ####[facility] , Lymphocytes/100 WBC (Bld) 30.2 % Normal . [facility] Comment on above: Order Comment: Reaso n for Exam Urinary frequency;Medication management;Anxiety;Microscopic Performed By: #### U RMACRERAT, FE and TIBC, LIPID, SHAMA, CMP, CBC, [id number], THYROID SC, LDLD ####[address]#### TOXASSURE, HIV SCREEN ####[facility] , MCH (RBC) [Entitic mass] 32.8 pg Normal 24.7-34.3 [facility] Comment on above: Order Comment: Reaso n for Exam Urinary frequency;Medication management;Anxiety;Microscopic Performed By: #### U RMACRERAT, FE and TIBC, LIPID, SHAMA, CMP, CBC, [id number], THYROID SC, LDLD ####[place] [address] [place]#### TOXASSURE, HIV SCREEN ####[facility] , MCV (RBC) [Entitic vol] 98.5 fL Normal 80-100 [facility] Comment on above: Order Comment: Reaso n for Exam Urinary frequency;Medication management;Anxiety;Microscopic Performed By: #### U RMACRERAT, FE and TIBC, LIPID, SHAMA, CMP, CBC, [id number], THYROID SC, LDLD ####[address]#### TOXASSURE, HIV SCREEN ####[facility] , Mean Corpuscular HGB Conc 33.3 g/dL Normal 32.0-35.0 [facility] Comment on above: Order Comment: Reaso n for Exam Urinary frequency;Medication management;Anxiety;Microscopic Performed By: #### U RMACRERAT, FE and TIBC, LIPID, SHAMA, CMP, CBC, [id number], THYROID SC, LDLD ####[address]#### TOXASSURE, HIV SCREEN ####[facility] , Monocytes (Bld) [#/Vol] 0.8 10*3/uL Normal 0.0-0.8 [facility] Comment on above: Order Comment: Reaso n for Exam Urinary frequency;Medication management;Anxiety;Microscopic Performed By: #### U RMACRERAT, FE and TIBC, LIPID, SHAMA, CMP, CBC, [id number], THYROID SC, LDLD ####[place] [address] [place]#### TOXASSURE, HIV SCREEN ####[facility] , Monocytes/100 WBC (Bld) 10.9 % Normal . [facility] Comment on above: Order Comment: Reaso n for Exam Urinary frequency;Medication management;Anxiety;Microscopic Performed By: #### U RMACRERAT, FE and TIBC, LIPID, SHAMA, CMP, CBC, [id number], THYROID SC, LDLD ####[place] [address] [place]#### TOXASSURE, HIV SCREEN ####[facility] , Neutrophils (Bld) [#/Vol] 4.1 10*3/uL Normal 1.8-7.7 [facility] Comment on above: Order Comment: Reaso n for Exam Urinary frequency;Medication management;Anxiety;Microscopic Performed By: #### U RMACRERAT, FE and TIBC, LIPID, SHAMA, CMP, CBC, [id number], THYROID SC, LDLD ####[facility]#### TOXASSURE, HIV SCREEN ####[facility] , Neutrophils/100 WBC (Bld) 56.9 % Normal . [facility] Comment on above: Order Comment: Reaso n for Exam Urinary frequency;Medication management;Anxiety;Microscopic Performed By: #### U RMACRERAT, FE and TIBC, LIPID, SHAMA, CMP, CBC, [id number], THYROID SC, LDLD ####[place] [id number] [address]#### TOXASSURE, HIV SCREEN ####[facility] , NRBC% 0.1 /100{WBC} Normal 0-0.5 [facility] Comment on above: Order Comment: Reaso n for Exam Urinary frequency;Medication management;Anxiety;Microscopic Performed By: #### U RMACRERAT, FE and TIBC, LIPID, SHAMA, CMP, CBC, [id number], THYROID SC, LDLD ####[place] [address] [address]#### TOXASSURE, HIV SCREEN ####[facility] , Platelet mean volume (Bld) [Entitic vol] 9.0 fL Normal 6.3-10.7 [facility] Comment on above: Order Comment: Reaso n for Exam Urinary frequency;Medication management;Anxiety;Microscopic Performed By: #### U RMACRERAT, FE and TIBC, LIPID, SHAMA, CMP, CBC, [id number], THYROID SC, LDLD ####[place] [address] [address]#### TOXASSURE, HIV SCREEN ####[facility] , Platelets (Bld) [#/Vol] 314 10*3/uL Normal 150-450 [facility] Comment on above: Order Comment: Reaso n for Exam Urinary frequency;Medication management;Anxiety;Microscopic Performed By: #### U RMACRERAT, FE and TIBC, LIPID, SHAMA, CMP, CBC, [id number], THYROID SC, LDLD ####[address]#### TOXASSURE, HIV SCREEN ####[facility] , RBC (Bld) [#/Vol] 4.26 10*6/uL Normal 3.60-5.00 [facility] Comment on above: Order Comment: Reaso n for Exam Urinary frequency;Medication management;Anxiety;Microscopic Performed By: #### U RMACRERAT, FE and TIBC, LIPID, SHAMA, CMP, CBC, [id number], THYROID SC, LDLD ####[address]#### TOXASSURE, HIV SCREEN ####[facility] , WBC (Bld) [#/Vol] 7.2 10*3/uL Normal 3.8-11.6 [facility] Comment on above: Order Comment: Reaso n for Exam Urinary frequency;Medication management;Anxiety;Microscopic Performed By: #### U RMACRERAT, FE and TIBC, LIPID, SHAMA, CMP, CBC, [id number], THYROID SC, LDLD ####[address]#### TOXASSURE, HIV SCREEN ####[facility] , Comprehensive Metabolic Pane hema 06-09-2023 Albumin [Mass/Vol] 4.2 g/dL Normal 3.5-5.7 [facility] Comment on above: Order Comment: Reaso n for Exam Urinary frequency;Medication management;Anxiety;Microscopic Reason for Exam Microscopic hematuria;Low iron Reason for Exam Bipolar affective disorder, currently depressed, moderate Reason for Exam Vitamin D deficiency Performed By: #### U RMACRERAT, FE and TIBC, LIPID, SHAMA, CMP, CBC, [id number], THYROID SC, LDLD ####[address]#### TOXASSURE, HIV SCREEN ####[facility] , Albumin/Globulin [Mass ratio] 1.4 {ratio} Normal [facility] Comment on above: Order Comment: Reaso n for Exam Urinary frequency;Medication management;Anxiety;Microscopic Reason for Exam Microscopic hematuria;Low iron Reason for Exam Bipolar affective disorder, currently depressed, moderate Reason for Exam Vitamin D deficiency Performed By: #### U RMACRERAT, FE and TIBC, LIPID, SHAMA, CMP, CBC, [id number], THYROID SC, LDLD ####[address]#### TOXASSURE, HIV SCREEN ####[facility] , ALP [Catalytic activity/Vol] 87 U/L Normal 34-104 [facility] Comment on above: Order Comment: Reaso n for Exam Urinary frequency;Medication management;Anxiety;Microscopic Reason for Exam Microscopic hematuria;Low iron Reason for Exam Bipolar affective disorder, currently depressed, moderate Reason for Exam Vitamin D deficiency Performed By: #### U RMACRERAT, FE and TIBC, LIPID, SHAMA, CMP, CBC, [id number], THYROID SC, LDLD ####[address]#### TOXASSURE, HIV SCREEN ####[facility] , ALT [Catalytic activity/Vol] 10 U/L Normal 7-52 [facility] Comment on above: Order Comment: Reaso n for Exam Urinary frequency;Medication management;Anxiety;Microscopic Reason for Exam Microscopic hematuria;Low iron Reason for Exam Bipolar affective disorder, currently depressed, moderate Reason for Exam Vitamin D deficiency Performed By: #### U RMACRERAT, FE and TIBC, LIPID, SHAMA, CMP, CBC, [id number], THYROID SC, LDLD ####[address]#### TOXASSURE, HIV SCREEN ####[facility] , Anion gap [Moles/Vol] 12.9 mmol/L Normal 6.0-15.0 [facility] Comment on above: Order Comment: Reaso n for Exam Urinary frequency;Medication management;Anxiety;Microscopic Reason for Exam Microscopic hematuria;Low iron Reason for Exam Bipolar affective disorder, currently depressed, moderate Reason for Exam Vitamin D deficiency Performed By: #### U RMACRERAT, FE and TIBC, LIPID, SHAMA, CMP, CBC, [id number], THYROID SC, LDLD ####[address]#### TOXASSURE, HIV SCREEN ####[facility] , AST [Catalytic activity/Vol] 12 U/L Low 13-39 [facility] Comment on above: Order Comment: Reaso n for Exam Urinary frequency;Medication management;Anxiety;Microscopic Reason for Exam Microscopic hematuria;Low iron Reason for Exam Bipolar affective disorder, currently depressed, moderate Reason for Exam Vitamin D deficiency Performed By: #### U RMACRERAT, FE and TIBC, LIPID, SHAMA, CMP, CBC, [id number], THYROID SC, LDLD ####[address]#### TOXASSURE, HIV SCREEN ####[facility] , Bilirubin [Mass/Vol] 0.2 mg/dL Low 0.3-1.0 [facility] Comment on above: Order Comment: Reaso n for Exam Urinary frequency;Medication management;Anxiety;Microscopic Reason for Exam Microscopic hematuria;Low iron Reason for Exam Bipolar affective disorder, currently depressed, moderate Reason for Exam Vitamin D deficiency Performed By: #### U RMACRERAT, FE and TIBC, LIPID, SHAMA, CMP, CBC, [id number], THYROID SC, LDLD ####[address]#### TOXASSURE, HIV SCREEN ####[facility] , Calcium [Mass/Vol] 9.5 mg/dL Normal 8.6-10.3 [facility] Comment on above: Order Comment: Reaso n for Exam Urinary frequency;Medication management;Anxiety;Microscopic Reason for Exam Microscopic hematuria;Low iron Reason for Exam Bipolar affective disorder, currently depressed, moderate Reason for Exam Vitamin D deficiency Performed By: #### U RMACRERAT, FE and TIBC, LIPID, SHAMA, CMP, CBC, [id number], THYROID SC, LDLD ####[place] [address] [address]#### TOXASSURE, HIV SCREEN ####[facility] , Chloride [Moles/Vol] 105 mmol/L Normal 98-107 [facility] Comment on above: Order Comment: Reaso n for Exam Urinary frequency;Medication management;Anxiety;Microscopic Reason for Exam Microscopic hematuria;Low iron Reason for Exam Bipolar affective disorder, currently depressed, moderate Reason for Exam Vitamin D deficiency Performed By: #### U RMACRERAT, FE and TIBC, LIPID, SHAMA, CMP, CBC, [id number], THYROID SC, LDLD ####[address]#### TOXASSURE, HIV SCREEN ####[facility] , CO2 [Moles/Vol] 25.0 mmol/L Normal 21.0-31.0 [facility] Comment on above: Order Comment: Reaso n for Exam Urinary frequency;Medication management;Anxiety;Microscopic Reason for Exam Microscopic hematuria;Low iron Reason for Exam Bipolar affective disorder, currently depressed, moderate Reason for Exam Vitamin D deficiency Performed By: #### U RMACRERAT, FE and TIBC, LIPID, SHAMA, CMP, CBC, [id number], THYROID SC, LDLD ####[address]#### TOXASSURE, HIV SCREEN ####[facility] , Creatinine [Mass/Vol] 0.63 mg/dL Normal 0.60-1.20 [facility] Comment on above: Order Comment: Reaso n for Exam Urinary frequency;Medication management;Anxiety;Microscopic Reason for Exam Microscopic hematuria;Low iron Reason for Exam Bipolar affective disorder, currently depressed, moderate Reason for Exam Vitamin D deficiency Performed By: #### U RMACRERAT, FE and TIBC, LIPID, SHAMA, CMP, CBC, [id number], THYROID SC, LDLD ####[address]#### TOXASSURE, HIV SCREEN ####[facility] , GFR/1.73 sq M.predicted MDRD (S/P/Bld) [Vol rate/Area] mL/min/{1.73_m2} Normal [facility] Comment on above: Order Comment: Reaso n for Exam Urinary frequency;Medication management;Anxiety;Microscopic Reason for Exam Microscopic hematuria;Low iron Reason for Exam Bipolar affective disorder, currently depressed, moderate Reason for Exam Vitamin D deficiency Performed By: #### U RMACRERAT, FE and TIBC, LIPID, SHAMA, CMP, CBC, [id number], THYROID SC, LDLD ####[address]#### TOXASSURE, HIV SCREEN ####[facility] , Globulin (S) [Mass/Vol] 2.9 g/dL Normal [facility] Comment on above: Order Comment: Reaso n for Exam Urinary frequency;Medication management;Anxiety;Microscopic Reason for Exam Microscopic hematuria;Low iron Reason for Exam Bipolar affective disorder, currently depressed, moderate Reason for Exam Vitamin D deficiency Performed By: #### U RMACRERAT, FE and TIBC, LIPID, SHAMA, CMP, CBC, [id number], THYROID SC, LDLD ####[address]#### TOXASSURE, HIV SCREEN ####[facility] , Glucose [Mass/Vol] 90 mg/dL Normal 70-100 [facility] Comment on above: Order Comment: Reaso n for Exam Urinary frequency;Medication management;Anxiety;Microscopic Reason for Exam Microscopic hematuria;Low iron Reason for Exam Bipolar affective disorder, currently depressed, moderate Reason for Exam Vitamin D deficiency Result Comment: Nga miller Glucose Reference Range is dependent on time and content of last meal. Glucose of more than 200 mg/dL in a nonstressed, ambulatory subject supports the diagnosis of Diabetes Mellitus. ADA recommended reference range Performed By: #### U RMACRERAT, FE and TIBC, LIPID, SHAMA, CMP, CBC, [id number], THYROID SC, LDLD ####[place] [address] [address]#### TOXASSURE, HIV SCREEN ####[facility] , Potassium [Moles/Vol] 3.9 mmol/L Normal 3.5-5.1 [facility] Comment on above: Order Comment: Reaso n for Exam Urinary frequency;Medication management;Anxiety;Microscopic Reason for Exam Microscopic hematuria;Low iron Reason for Exam Bipolar affective disorder, currently depressed, moderate Reason for Exam Vitamin D deficiency Performed By: #### U RMACRERAT, FE and TIBC, LIPID, SHAMA, CMP, CBC, [id number], THYROID SC, LDLD ####[place] [address] [address]#### TOXASSURE, HIV SCREEN ####[facility] , Protein [Mass/Vol] 7.1 g/dL Normal 6.4-8.9 [facility] Comment on above: Order Comment: Reaso n for Exam Urinary frequency;Medication management;Anxiety;Microscopic Reason for Exam Microscopic hematuria;Low iron Reason for Exam Bipolar affective disorder, currently depressed, moderate Reason for Exam Vitamin D deficiency Performed By: #### U RMACRERAT, FE and TIBC, LIPID, SHAMA, CMP, CBC, [id number], THYROID SC, LDLD ####[place] [address] [place]#### TOXASSURE, HIV SCREEN ####[facility] , Sodium [Moles/Vol] 139 mmol/L Normal 136-145 [facility] Comment on above: Order Comment: Reaso n for Exam Urinary frequency;Medication management;Anxiety;Microscopic Reason for Exam Microscopic hematuria;Low iron Reason for Exam Bipolar affective disorder, currently depressed, moderate Reason for Exam Vitamin D deficiency Performed By: #### U RMACRERAT, FE and TIBC, LIPID, SHAMA, CMP, CBC, [id number], THYROID SC, LDLD ####[facility]#### TOXASSURE, HIV SCREEN ####[facility] , Urea nitrogen [Mass/Vol] 14 mg/dL Normal 7-25 [facility] Comment on above: Order Comment: Reaso n for Exam Urinary frequency;Medication management;Anxiety;Microscopic Reason for Exam Microscopic hematuria;Low iron Reason for Exam Bipolar affective disorder, currently depressed, moderate Reason for Exam Vitamin D deficiency Performed By: #### U RMACRERAT, FE and TIBC, LIPID, SHAMA, CMP, CBC, [id number], THYROID SC, LDLD ####[place] [address] [address]#### TOXASSURE, HIV SCREEN ####[facility] , Ferritinon 06-09-2023 Ferritin [Mass/Vol] 78.9 ng/mL Normal 11.0-306.8 [facility] Comment on above: Order Comment: Reaso n for Exam Primary hypertension Performed By: #### F SH, T3F, CBC, TSH3, [id number], CMP, SHAMA, FE and TIBC, LIPID, CUU, [id number], UA #### [address] #### ESTRADIOL, LH #### [facility] , HIV 1/O/2 Antigen/Antibodyon 06-09-2023 HIV Screen 4th Generation Non-Reactive Normal Non Reactive [facility] Comment on above: Order Comment: Reaso n for Exam Primary hypertension Result Comment: HIV Negative HIV-1/HIV-2 antibodies and HIV-1 p24 antigen were NOT detected. There is no laboratory evidence of HIV infection. Performed at: [facility] Lab[address] [id number] [employer]: Kurtis Gallegos PhD, Phone: [phone] PERFORMED BY: [address] [place] [address] PATHOLOGIST STONE RIGGER PALOMO WESELY M.D. Performed By: #### F SH, T3F, CBC, TSH3, [id number], CMP, SHAMA, FE and TIBC, LIPID, CUU, [id number], UA #### [place] [address] [place] #### ESTRADIOL, LH #### [facility] , Iron and TIBC Profileon 03-0 6-2023 % Iron Saturation 22.1 % Normal 20-50 [facility] Comment on above: Order Comment: Reaso n for Exam Primary hypertension Performed By: #### F SH, T3F, CBC, TSH3, [id number], CMP, SHAMA, FE and TIBC, LIPID, CUU, [id number], UA #### [place] [address] [place] #### ESTRADIOL, LH #### [facility] , Iron [Mass/Vol] 93 ug/dL Normal 50-212 [facility] Comment on above: Order Comment: Reaso n for Exam Primary hypertension Performed By: #### F SH, T3F, CBC, TSH3, [id number], CMP, SHAMA, FE and TIBC, LIPID, CUU, [id number], UA #### [place] [address] [place] #### ESTRADIOL, LH #### [facility] , Total Iron Binding Capacity 420 ug/dL Normal 255-450 [facility] Comment on above: Order Comment: Reaso n for Exam Primary hypertension Performed By: #### F SH, T3F, CBC, TSH3, [id number], CMP, SHAMA, FE and TIBC, LIPID, CUU, [id number], UA #### [place] [address] [place] #### ESTRADIOL, LH #### [facility] , Transferrin [Mass/Vol] 300 mg/dL Normal 203-362 [facility] Comment on above: Order Comment: Reaso n for Exam Primary hypertension Performed By: #### F SH, T3F, CBC, TSH3, [id number], CMP, SHAMA, FE and TIBC, LIPID, CUU, [id number], UA #### [facility] [address] [place] [address] [place] #### ESTRADIOL, LH #### [facility] , LDL Cholesterol Measuredon 0 06-09-2023 LDL Cholesterol Measured 122 mg/dL High 0-100 [facility] Comment on above: Order Comment: Reaso n for Exam Primary hypertension Result Comment: LDL ATP III CLASSIFICATION LDL less than 100 mg/dL Optimal LDL 100-129 mg/dL Near or above optimal LDL 130-159 mg/dL Borderline high LDL 160-189 mg/dL High LDL greater than 189 mg/dL Very high Performed By: #### F SH, T3F, CBC, TSH3, [id number], CMP, SHAMA, FE and TIBC, LIPID, CUU, [id number], UA #### [facility] [address] [place] [address] [place] #### ESTRADIOL, LH #### [facility] , Lipid Panelon 06-09-2023 Cholesterol [Mass/Vol] 216 mg/dL High 140-200 [facility] Comment on above: Order Comment: Reaso n for Exam Primary hypertension Result Comment: Chol less than 200 mg/dl low risk Chol 201-239 mg/dl borderline risk Chol 240 mg/dl and greater high risk Performed By: #### F SH, T3F, CBC, TSH3, [id number], CMP, SHAMA, FE and TIBC, LIPID, CUU, [id number], UA #### [facility] [address] [place] [address] [place] #### ESTRADIOL, LH #### [facility] , Cholesterol in HDL [Mass/Vol] 69 mg/dL Normal 23-92 [facility] Comment on above: Order Comment: Reaso n for Exam Primary hypertension Result Comment: HDL CHOL ATP-III CLASSIFICATION Cardiovascular Risk HDL > or equal to 60 mg/dL LOW HDL < 40 mg/dL HIGH Performed By: #### F SH, T3F, CBC, TSH3, [id number], CMP, SHAMA, FE and TIBC, LIPID, CUU, [id number], UA #### [facility] [address] [place] [address] [place] #### ESTRADIOL, LH #### [facility] , Cholesterol.total/Chol esterol in HDL [Mass ratio] 3.1 {ratio} Normal <5.0 [facility] Comment on above: Order Comment: Reaso n for Exam Primary hypertension Performed By: #### F SH, T3F, CBC, TSH3, [id number], CMP, SHAMA, FE and TIBC, LIPID, CUU, [id number], UA #### [place] [address] [place] #### ESTRADIOL, LH #### [facility] , LDL Cholesterol,Calculated Not performed Normal 0-100 [facility] Comment on above: Order Comment: Reaso n for Exam Primary hypertension Performed By: #### F SH, T3F, CBC, TSH3, [id number], CMP, SHAMA, FE and TIBC, LIPID, CUU, [id number], UA #### [place] [address] [place] #### ESTRADIOL, LH #### [facility] , Triglyceride w/Reflex 443 mg/dL High 0-149 [facility] Comment on above: [...] be calculated and resulted. Performed By: #### F SH, T3F, CBC, TSH3, [id number], CMP, SHAMA, FE and TIBC, LIPID, CUU, [id number], UA #### [facility] [address] [place] [address] [place] #### ESTRADIOL, LH #### [facility] , VLDL CHOLESTEROL 88 mg/dL Normal [facility] Comment on above: Order Comment: Reaso n for Exam Primary hypertension Performed By: #### F SH, T3F, CBC, TSH3, [id number], CMP, SHAMA, FE and TIBC, LIPID, CUU, [id number], UA #### [facility] [address] #### ESTRADIOL, LH #### [facility] , MicroAlb Creat Ratio,Uon Albumin DL <= 20 mg/L (U) [Mass/Vol] 2.1 mg/dL High 0.0-1.8 [facility] Comment on above: Order Comment: Reaso n for Exam Urinary frequency;Microscopic hematuria Performed By: #### U RMACRERAT, FE and TIBC, LIPID, SHAMA, CMP, CBC, [id number], THYROID SC, LDLD ####[facility]#### TOXASSURE, HIV SCREEN ####[facility] , Creatinine, Urine (Random) 66.0 mg/dL High 11.0-20.0 [facility] Comment on above: Order Comment: Reaso n for Exam Urinary frequency;Microscopic hematuria Performed By: #### U RMACRERAT, FE and TIBC, LIPID, SHAMA, CMP, CBC, [id number], THYROID SC, LDLD ####[facility]#### TOXASSURE, HIV SCREEN ####[facility] , Microalbumin/Creatinin e Ratio 31.0 mg/g High 0.0-30.0 [facility] Comment on above: Order Comment: Reaso n for Exam Urinary frequency;Microscopic hematuria Result Comment: 30-3 00 mg/g indicates an increased risk for diabetic nephropathy. Greater than 300 mg/g is consistent with clinical nephropathy. (Am. J. Kidney Disease 1995, 25:107) PERFORMED BY: [facility] [address] [place] [address] PATHOLOGIST STONE RIGGER PALOMO WESLEY M.D. Performed By: #### U RMACRERAT, FE and TIBC, LIPID, SHAMA, CMP, CBC, [id number], THYROID SC, LDLD ####[facility] [address]#### TOXASSURE, HIV SCREEN ####[facility] , THYROID SCREENon 06-09-2023 Free T4 [Mass/Vol] 0.68 ng/dL Normal 0.61-1.12 [facility] Comment on above: Order Comment: Reaso n for Exam Primary hypertension Performed By: #### F SH, T3F, CBC, TSH3, [id number], CMP, SHAMA, FE and TIBC, LIPID, CUU, [id number], UA #### [facility] [address] [place] [address] [place] #### ESTRADIOL, LH #### [facility] , TSH Qn 2.09 m[IU]/L Normal 0.45-5.33 [facility] Comment on above: Order Comment: Reaso n for Exam Primary hypertension Performed By: #### F SH, T3F, CBC, TSH3, [id number], CMP, SHAMA, FE and TIBC, LIPID, CUU, [id number], UA #### [facility] [address] [place] [address] [place] #### ESTRADIOL, LH #### [facility] , Toxassure, Urineon Toxassure, Urine Summary FINAL Normal . [facility] Comment on above: [...] test is not intended to distinguish between xmfrq-0-rwdtvcpwurqbpojtiwes, the predominant form of THC in most herbal or marijuana-based products, and eojjl-9-amoesjchijlplvicncal. Gabapentin PRESENT Cyclobenzaprine PRESENT Desmethylcyclobenzaprine PRESENT Desmethylcyclobenzaprine is an expected metabolite of cyclobenzaprine. Naproxen PRESENT ===== Test Result Flag Units Ref Range Creatinine 63 mg/dL >=20 ===== Declared Medications: Medication list was not provided. ===== For clinical consultation, please call . ===== Performed at: [facility] [address] [place] [id number] [employer]amping: Ana Munoz [facility], Phone: [phone] PERFORMED BY: [place] [address] PATHOLOGIST STONE RIGGER PALOMO WESLEY M.D. Performed By: #### F SH, T3F, CBC, TSH3, [id number], CMP, SHAMA, FE and TIBC, LIPID, CUU, [id number], UA #### [address] #### ESTRADIOL, LH #### [facility] , Vitamin D 25 Hydroxy Totalon 06-09-2023 Vitamin D 25 Hydroxy Total 19.8 ng/mL Low 30-100 [facility] Comment on above: Order Comment: Reaso n for Exam Primary hypertension Result Comment: IDRIS MIN D STATUS 25(OH)VITAMIN D RANGE (ng/mL) Deficient <20 Insufficient 20 to <30 Sufficient 30 to 100 Reference: Baron MF,Suze NC, Khushi-Jeffy MAXWELL, et al. Evaluation,treatment, and prevention of vitamin D deficiency; an Endocrine Society clinical practice guideline. JCEM. 2011 Oct; 96(7):1911-30. PERFORMED BY: [place] [address] PATHOLOGIST STONE RIGGER PALOMO WESLEY M.D. Performed By: #### F SH, T3F, CBC, TSH3, [id number], CMP, SHAMA, FE and TIBC, LIPID, CUU, [id number], UA #### [facility] [address] #### ESTRADIOL, LH #### [facility] , Formson 04-26-2023 Forms [id number] 01 [id number]#1. 00TIFF Normal [facility] NM Myocardial Spect Rest/Str ess 1 [...] Stress Dose (mCi Tc99M Cardiolite): 28.9 Normal [facility] Stress EKG Tracingson 2023 Stress EKG Tracings [id number] 02 [id number]. 00TIFF Normal [facility] Consent for Treatmenton 04-05 Consent for Treatment [id number]#1.[address] [facility] US renal BIon 04-01-2023 US renal BI [facility] Main [address] [address] Ultrasound Report Signed Patient: Isela Craig MR#: [id number] : 1970 Acct:[id number] Age/Sex: 52 / F ADM Date: 04/01/23 Loc: UL Room: Type: [facility] Attending Dr: Jes Cruz UX DEVELOPER-C Ordering Provider: Jes Cruz Date of Service: 04/01/23 US/US renal BI: R31.9 ([id number]) US/US bladder: R31.9 Copies to: Jes Cruz [...] findings. Impression dictated by: Freddy Johns Jr., DShyanneOShyanne04/01/2023 3:16 PM Dictation Location: [place] [address] Tech: Chloe Delcid Transcribed By: FLORES 04/01/23 1516 Dictated By: Freddy Johns Jr, DO 04/01/23 151 Signed By: 04/01/23 1516 Normal [facility] XR KUBon 04-01-2023 XR KUB [address] [address] XRay Report Signed Patient: Isela Craig MR#: [id number] : 1970 Acct:[id number] Age/Sex: 52 / F ADM Date: 04/01/23 Loc: UL Room: Type[facility] Attending Dr: Jes Cruz UX DEVELOPER-C Copies to: Jes Cruz Ordering Provider: Jes [...] Shae Guzman M.D.04/01/2023 3:38 PM Dictation Location: [facility]- Transcribed By: [facility] 04/01/23 1538 Dictated By: Shae Guzman MD 04/01/23 1536 Signed By: 04/01/23 1538 Normal [facility] COVID Quick Testingon 2022 Result Negative apomio Other Quick Strepon 12-15-2022 S. pyogenes Org specific cx Ql (Throat) Negative apomio Other Quick Strep apomio Other COVID + FLU Quick Testingon 10-14-2022 SARS-CoV-2 (COVID-19) RNA AISSATOU+probe Ql (Unsp spec) Negative [facility] Other COVID + FLU Quick Testing Negative [facility]io Other Quick Strepon 10-14-2022 S. pyogenes Org specific cx Ql (Throat) Negative [facility] Other Quick Strep apomio Other Office Visit (Cardiology)on 06-24-2022 Follow-up visit Diagnoses/Problems Assessed Costochondritis (733.6) (M94.0) Palpitations (785.1) (R00.2) For the most part brief and fleeting, seem most consistent with PVC. Coronary artery disease involving pauma coronary artery of pauma heart without angina pectoris (414.01) (I25.10) Mar [...] contact the office if new symptoms arise. 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 Last week she presented to [facility] due to chest pain and dizziness. [...] and fluttering . 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 Due to blood pressure and palpitations [...] Recorded: 24Jun2022 09:32AM Heart Rate88, R Radial Veaznqzq305, RUE, Si (more content not included)... Normal [employer] Tobacco Screening.on 023 Adult depression screening assessment No [facility] 250 DO Work Phone: Tobacco use status [facility] a) Yes [facility] 250 DO Work Phone: Tobacco Screening. Yes [facility] 250 DO Work Phone: Alanine aminotransferase [En zymatic activity/volume] in Serum or PlasmaOrdered By: Jes Cruz on 06-19-2022 ALT [Catalytic activity/Vol] 11 U/L 7-52 [facility] Albumin [Mass/volume] in Ser um or Plasma by Bromocresol green (BCG) dye binding methoOrdered By: Jes Cruz on 06-19-2022 Albumin BCG dye [Mass/Vol] 4.0 g/dL 3.5-5.7 [facility] Alkaline phosphatase [Enzyma tic activity/volume] in Serum or PlasmaOrdered By: Jes Cruz on 06-19-2022 ALP [Catalytic activity/Vol] 70 U/L 34-104 [facility] Aspartate aminotransferase [ Enzymatic activity/volume] in Serum or PlasmaOrdered By: Jes Cruz on 06-19-2022 AST [Catalytic activity/Vol] 11 U/L 13-39 [facility] Basophils Auto (Bld) [#/Vol] Ordered By: Jes Cruz on 06-19-2022 Basophils (Bld) [#/Vol] 0.1 10*3/uL 0.0-0.2 [facility] Basophils/100 WBC Auto (Bld) Ordered By: Jes Cruz on 06-19-2022 Basophils/100 WBC (Bld) 1.2 % . [facility] Bilirubin.total [Mass/volume ] in Serum or PlasmaOrdered By: Jes Cruz on 06-19-2022 Bilirubin [Mass/Vol] 0.2 mg/dL 0.3-1.0 [facility] C reactive protein [Mass/vol ume] in Serum or Plasma by High sensitivity methodOrdered By: Jes Cruz on 06-19-2022 CRP High sensitivity method [Mass/Vol] 0.4 mg/L 0.0-0.9 [facility] Comment on above: Cardiovascular Risk Classification (AHA/CDC)hsCRP [...] 06-19-2022 Calcium [Mass/Vol] 9.1 mg/dL 8.6-10.3 [facility] Carbon dioxide, total [Moles /volume] in Serum or PlasmaOrdered By: Jes Cruz on 06-19-2022 CO2 [Moles/Vol] 24.4 mmol/L 21.0-31.0 [facility] Chloride [Moles/volume] in S shanna or PlasmaOrdered By: Jes Cruz on 06-19-2022 Chloride [Moles/Vol] 108 mmol/L 98-107 [facility] Cholesterol [Mass/volume] in Serum or PlasmaOrdered By: Jes Cruz on 06-19-2022 Cholesterol [Mass/Vol] 190 mg/dL 140-200 [facility] Comment on above: Chol less than 200 m g/dl low riskChol 201-239 mg/dl borderline riskChol 240 mg/dl and greater high risk Cholesterol in LDL Calc [Mas s/Vol]Ordered By: Jes Cruz on 06-19-2022 Cholesterol in LDL [Mass/Vol] 74 mg/dL 0-100 [facility] Comment on above: LDL ATP III CLASSIFI CATIONLDL less than 100 mg/dL OptimalLDL 100-129 mg/dL Near or above optimalLDL 130-159 mg/dL Borderline highLDL 160-189 mg/dL HighLDL greater than 189 mg/dL Very high Cholesterol in VLDL Calc [Ma ss/Vol]Ordered By: Jes Cruz on 06-19-2022 Cholesterol in VLDL [Mass/Vol] 48 mg/dL [facility] Creatine kinase [Enzymatic a ctivity/volume] in Serum or PlasmaOrdered By: Jes Cruz on 06-19-2022 CK [Catalytic activity/Vol] 35 U/L 30-223 [facility] Creatine kinase.MB [Mass/vol ume] in Serum or PlasmaOrdered By: Jes Cruz on 06-19-2022 CK.MB [Mass/Vol] 2.3 ng/mL 0.6-6.3 [facility] Creatinine [Mass/volume] in Serum or PlasmaOrdered By: Jes Cruz on 06-19-2022 Creatinine [Mass/Vol] 0.79 mg/dL 0.60-1.20 [facility] Eosinophils Auto (Bld) [#/Vo l]Ordered By: Jes Cruz on 06-19-2022 Eosinophils (Bld) [#/Vol] 0.2 10*3/uL 0.0-0.45 [facility] Eosinophils/100 WBC Auto (Bl d)Ordered By: Jes Cruz on 06-19-2022 Eosinophils/100 WBC (Bld) 2.5 % . [facility] Erythrocyte distribution wid th Auto (RBC) [Ratio]Ordered By: Jes Cruz on 06-19-2022 Erythrocyte distribution width (RBC) [Ratio] 13.2 % 11.9-15.3 [facility] Globulin Calc (S) [Mass/Vol] Ordered By: Jes Cruz on 06-19-2022 Globulin (S) [Mass/Vol] 2.3 g/dL [facility] Glucose [Mass/volume] in Ser um or PlasmaOrdered By: Jes Cruz on 06-19-2022 Glucose [Mass/Vol] 94 mg/dL 74-109 [facility] Comment on above: ADA recommended refe rence rangeRandom Glucose Reference Range is dependent on time and content of last meal. Glucose of more than 200 mg/dL in a nonstressed, ambulatory subject supports the diagnosis of Diabetes Mellitus. Hematocrit Auto (Bld) [Volum e fraction]Ordered By: Jes Cruz on 06-19-2022 Hematocrit (Bld) [Volume fraction] 39.3 % 34.0-46.4 [facility] Hemoglobin [Mass/volume] in BloodOrdered By: Jes Cruz on 06-19-2022 Hemoglobin (Bld) [Mass/Vol] 13.1 g/dL 11.8-15.4 [facility] Laboratory - Chemistry and C hemistry - challengeOrdered By: Jes Crzu on 06-19-2022 GFR/1.73 sq M.predicted MDRD (S/P/Bld) [Vol rate/Area] mL/min/{1.73_m2} [facility] Leukocytes [#/volume] correc ricardo for nucleated erythrocytes in Blood by Automated counOrdered By: Jes Cruz on 06-19-2022 WBC corrected for nucl RBC Auto (Bld) [#/Vol] 8.2 10*3/uL 3.8-11.6 [facility] Lymphocytes Auto (Bld) [#/Vo l]Ordered By: Jes Cruz on 06-19-2022 Lymphocytes (Bld) [#/Vol] 2.5 10*3/uL 1.00-4.8 [facility] Lymphocytes/100 WBC Auto (Bl d)Ordered By: Jes Cruz on 06-19-2022 Lymphocytes/100 WBC (Bld) 30.3 % . [facility] MCH Auto (RBC) [Entitic mass ]Ordered By: Jes Cruz on 06-19-2022 MCH (RBC) [Entitic mass] 33.2 pg 24.7-34.3 [facility] MCHC Auto (RBC) [Mass/Vol]Or dered By: Jes Cruz on 06-19-2022 MCHC (RBC) [Mass/Vol] 33.4 g/dL 32.0-35.0 [facility] MCV Auto (RBC) [Entitic vol] Ordered By: Jes Cruz on 06-19-2022 MCV (RBC) [Entitic vol] 99.5 fL 80-100 [facility] Monocytes Auto (Bld) [#/Vol] Ordered By: Jes Cruz on 06-19-2022 Monocytes (Bld) [#/Vol] 1.0 10*3/uL 0.0-0.8 [facility] Monocytes/100 WBC Auto (Bld) Ordered By: Jes Cruz on 06-19-2022 Monocytes/100 WBC (Bld) 11.6 % . [facility] Natriuretic peptide B [Mass/ Vol]Ordered By: Jes Cruz on 06-19-2022 Natriuretic peptide B (Bld) [Mass/Vol] 87.0 pg/mL 5-100 [facility] Neutrophils Auto (Bld) [#/Vo l]Ordered By: Jes Cruz on 06-19-2022 Neutrophils (Bld) [#/Vol] 4.5 10*3/uL 1.8-7.7 [facility] Neutrophils/100 WBC Auto (Bl d)Ordered By: Jes Cruz on 06-19-2022 Neutrophils/100 WBC (Bld) 54.4 % . [facility] No Panel InformationOrdered By: Jes Cruz on 06-19-2022 Pharmacy Creatinine Clearance (Chem N/A [facility] Nucleated erythrocytes [Pres ence] in Blood by Automated countOrdered By: Jes Cruz on 06-19-2022 Nucleated RBC Auto Ql (Bld) 0.2 /100{WBC} 0-0.5 [facility] Platelet mean volume Auto (B ld) [Entitic vol]Ordered By: Jes Cruz on 06-19-2022 Platelet mean volume (Bld) [Entitic vol] 10.2 fL 6.3-10.7 [facility] Platelets Auto (Bld) [#/Vol] Ordered By: Jes Cruz on 06-19-2022 Platelets (Bld) [#/Vol] 297 10*3/uL 150-450 [facility] Potassium [Moles/volume] in Serum or PlasmaOrdered By: Jes Cruz on 06-19-2022 Potassium [Moles/Vol] 4.3 mmol/L 3.5-5.1 [facility] Protein [Mass/volume] in Ser um or PlasmaOrdered By: Jes Cruz on 06-19-2022 Protein [Mass/Vol] 6.3 g/dL 6.4-8.9 [facility] RBC Auto (Bld) [#/Vol]Ordere d By: Jes Cruz on 06-19-2022 RBC (Bld) [#/Vol] 3.95 10*6/uL 3.60-5.[address] [facility] Serum or plasma albumin/glob ulin mass ratioOrdered By: Jes Cruz on 06-19-2022 Albumin/Globulin [Mass ratio] 1.7 {ratio} [facility] Serum or plasma anion gap de terminationOrdered By: Jes Cruz on 06-19-2022 Anion gap [Moles/Vol] 10.9 mmol/L 6.0-15.0 [facility] Serum or plasma creatine kin ase MB (CKMB)/total creatine kinase (CK) ratio by calculaOrdered By: Jes Cruz on 06-19-2022 CK.MB Calc [Catalytic fraction] 6.5 % 0.00-2.50 [facility] Serum or plasma high density lipoprotein (HDL) cholesterol measurementOrdered By: Jes Cruz on 06-19-2022 Cholesterol in HDL [Mass/Vol] 68 mg/dL 35-85 [facility] Comment on above: HDL CHOL ATP-III CLA SSIFICATION Cardiovascular RiskHDL > or equal to 60 mg/dL LOWHDL < 40 mg/dL HIGH Serum or plasma total choles terol/high density lipoprotein (HDL) cholesterol mass ratOrdered By: Jes Cruz on 06-19-2022 Cholesterol.total/Chol esterol in HDL [Mass ratio] 2.8 {ratio} <5.0 [facility] Sodium [Moles/volume] in Ser um or PlasmaOrdered By: Jes Cruz on 06-19-2022 Sodium [Moles/Vol] 139 mmol/L 136-145 [facility] Thyrotropin [Units/volume] i n Serum or PlasmaOrdered By: Jes Cruz on 06-19-2022 TSH Qn 2.33 m[IU]/L 0.45-5.33 [facility] Thyroxine (T4) free [Mass/vo lume] in Serum or PlasmaOrdered By: Jes Cruz on 06-19-2022 Free T4 [Mass/Vol] 0.63 ng/dL 0.61-1.12 [facility] Triglyceride [Mass/volume] i n Serum or PlasmaOrdered By: Jes Cruz on 06-19-2022 Triglyceride [Mass/Vol] 241 mg/dL 0-149 [facility] Comment on above: TRIG ATP III CLASSIF ICATIONTRIG less than 150 mg/dL NormalTRIG 150-199 mg/dL Borderline highTRIG 200-500 mg/dL High TRIG greater than 500 mg/dL Very highStandard traceable to the Center for Disease Conrtrol and Prevention (CDC) test method. Urea nitrogen [Mass/volume] in Serum or PlasmaOrdered By: Jes Cruz on 06-19-2022 Urea nitrogen [Mass/Vol] 9 mg/dL 7-25 [facility] WBC Auto (Bld) [#/Vol]Ordere d By: Jes Cruz on 06-19-2022 WBC (Bld) [#/Vol] 8.2 10*3/uL 3.8-11.6 [facility] CARDIAC BJORN ADMITon 023 CK [Catalytic activity/Vol] 54 U/L Normal 26-192 [facility] Comment on above: Performed By: #### C KEYSHAWN ORTEGA #### [facility] [address] [address] [address] Howard Guthrie CK.MB [Mass/Vol] 1.70 ng/mL Normal <=3.60 [facility] Comment on above: Performed By: #### C JRODAN CMP #### [facility] [address] [address] [address] Howard Guthrie HSTROP <4.0 Normal 4.0-51.3 [facility] Comment on above: Result Comment: CUT- OFF POINTS HAVE BEEN ESTABLISHED BASED ON THE FOURTH UNIVERSAL DEFINITIONS OF MYOCARDIAL INFARCTION. THE UPPER REFERENCE LIMIT (URL) OF TROPONIN, DEFINED THE 99TH PERCENTILE OF cTnI DISTRIBUTION IN A REFERENCE POPULATION, HAS BEEN CONFIRMED THE DECISION THRESHOLD FOR [place] DIAGNOSIS. Performed By: #### C JORDAN, CMP #### [facility] [address] [place] [address] Dr. Howard Guthrie NYA 23 ng/mL Normal 9-82 [facility] Comment on above: Performed By: #### C MICHAELM, CMP #### [facility] [address] [place] [address] Dr. Howard Guthrie CBC AUTO DIFFon 06-17-2022 BASO # 0.1 103/ul Normal 0.0-0.1 [facility] Comment on above: Performed By: #### C BC #### [facility] [address] [place] [address] Dr. Howard Guthrie Basophils/100 WBC (Bld) 1.0 % Normal 0.2-2.0 [facility] Comment on above: Performed By: #### C BC #### [facility] [address] [place] [address] Dr. Howard Guthrie EO # 0.2 103/ul Normal 0.0-0.7 [facility] Comment on above: Performed By: #### C BC #### [facility] [address] [place] [address] Dr. Howard Guthrie Eosinophils/100 WBC (Bld) 2.9 % Normal 0.9-7.0 [facility] Comment on above: Performed By: #### C BC #### [facility] [address] [place] [address] Dr. Howard Guthrie Erythrocyte distribution width (RBC) [Ratio] 12.7 % Normal 11.0-15.0 [facility] Comment on above: Performed By: #### C BC #### [facility] [address] [place] [address] Dr. Howard Guthrie Hematocrit (Bld) [Volume fraction] 42.5 % Normal 36.0-48.0 [facility] Comment on above: Performed By: #### C BC #### [facility] [address] [place] [address] Dr. Howard Guthrie Hemoglobin (Bld) [Mass/Vol] 14.7 g/dL Normal 12.0-16.0 [facility] Comment on above: Performed By: #### C BC #### [facility] [address] [place] [address] Dr. Howard Guthrie IG # 0.02 10e3/ul Normal 0.00-0.03 [facility] Comment on above: Performed By: #### C BC #### [facility] [address] [place] [address] Dr. Howard Guthrie IG % 0.3 % Normal 0.0-0.5 [facility] Comment on above: Performed By: #### C BC #### [facility] [address] [place] [address] Dr. Howard Guthrie LYMPH # 2.1 103/ul Normal 1.2-3.8 [facility] Comment on above: Performed By: #### C BC #### [facility] [address] [place] [address] Dr. Howard Guthrie Lymphocytes/100 WBC (Bld) 28.4 % Normal 20.5-60.0 [facility] Comment on above: Performed By: #### C BC #### [facility] [address] [place] [address] Dr. Howard Guthrie MANUAL DIFF REQ NO Normal [facility] [place] Comment on above: Performed By: #### C BC #### [facility] [address] [place] [address] Dr. Howard Guthrie MCH (RBC) [Entitic mass] 33.1 pg Normal 26.7-34.0 [facility] Comment on above: Performed By: #### C BC #### [facility] [address] [place] [address] Dr. Howard Guthrie MCHC (RBC) [Mass/Vol] 34.6 g/dL Normal 29.9-35.2 [facility] Comment on above: Performed By: #### C BC #### [facility] [address] [place] [address] Dr. Howard Guthrie MCV (RBC) [Entitic vol] 95.7 fL Normal 81.0-99.0 [facility] Comment on above: Performed By: #### C BC #### [facility] [address] [address] [address] Howard Guthrie MONO # 1.0 103/ul Critically high 0.3-0.8 [facility] [place] Comment on above: Performed By: #### C BC #### [facility] [address] [address] [address] Howard Guthrie Monocytes/100 WBC (Bld) 13.1 % Critically high 1.7-12.0 [facility] Comment on above: Performed By: #### C BC #### [facility] [address] [place] [address] Dr. Howard Guthrie NEUT # 4.0 103/ul Normal 1.4-6.5 [facility] Comment on above: Performed By: #### C BC #### [facility] [address] [place] [address] Dr. Howard Guthrie Neutrophils/100 WBC (Bld) 54.3 % Normal 43.0-75.0 [facility] Comment on above: Performed By: #### C BC #### [facility] [address] [place] [address] Dr. Howard Guthrie Platelet mean volume (Bld) [Entitic vol] 10.0 fL Normal 9.5-13.5 [facility] Comment on above: Performed By: #### C BC #### [facility] [address] [place] [address] Dr. Howard Guthrie PLT 343 103/ul Normal 150-450 [facility] Comment on above: Performed By: #### C BC #### [facility] [address] [place] [address] Dr. Howard Guthrie RBC 4.44 106/ul Normal 4.20-5.40 [facility] Comment on above: Performed By: #### C BC #### [facility] [address] [place] [address] Dr. Howard Guthrie WBC 7.4 103/ul Normal 4.0-11.0 [facility] Comment on above: Performed By: #### C BC #### [facility] [address] [place] [address] Dr. Howard Guthrie D-DIMERon 06-17-2022 D-DIMER 0.43 mg/L FEU Normal <=0.59 [facility] Comment on above: Performed By: #### D DIM #### [facility] [address] [place] [address] Dr. Howard Guthrie D-DIMER COMMENTS SEE BELOW Normal [facility] Comment on above: Result Comment: Incr [...] Performed By: #### D DIM #### [facility] [address] [place] [address] Dr. Howard Guthrie ER URINE PROFILEon Bilirubin Ql (U) Negative Normal NEGATIVE [facility] Comment on above: Performed By: #### U MICRO, ERUR #### [facility] [address] [place] [address] Dr. Howard Guthrie Clarity (U) CLEAR Normal CLEAR [facility] Comment on above: Performed By: #### U MICRO, ERUR #### [facility] [address] [place] [address] Dr. Howard Guthrie Color (U) LT. YELLOW Normal YELLOW [facility] Comment on above: Performed By: #### U MICRO, ERUR #### [facility] [address] [place] [address] Dr. Howard MILLS A micrscopic examination will be performed if indicated. Normal [facility] Comment on above: Performed By: #### U MICRO, ERUR #### [facility] [address] [place] [address] Dr. Howard Guthrie Glucose Ql (U) Negative Normal NEGATIVE [facility] Comment on above: Performed By: #### U MICRO, ERUR #### [facility] [address] [address] [address] Howard Guthrie Hemoglobin Ql (U) SMALL Abnormal NEGATIVE [facility] Comment on above: Performed By: #### U MICRO, ERUR #### [facility] [address] [place] [address] Dr. Howard Guthrie Ketones Ql (U) Negative Normal NEGATIVE [facility] Comment on above: Performed By: #### U MICRO, ERUR #### [facility] [address] [address] [address] Howard Guthrie LEUKOCYTES Negative Normal NEGATIVE [facility] Comment on above: Performed By: #### U MICRO, ERUR #### [facility] [address] [place] [address] Dr. Howard Guthrie Nitrite Ql (U) Negative Normal NEGATIVE [facility] Comment on above: Performed By: #### U MICRO, ERUR #### [facility] [address] [place] [address] Dr. Howard Guthrie pH (U) 7.0 [pH] Normal 5-9 [facility] Comment on above: Performed By: #### U MICRO, ERUR #### [facility] [address] [place] [address] Dr. Howard Guthrie SPEC GRAVITY 1.015 Normal 1.005-<=1.0 25 [facility] Comment on above: Performed By: #### U MICRO, ERUR #### [facility] [address] [address] [address] Howard Guthrie UA PROTEIN Negative Normal NEGATIVE/ TRACE [facility] Comment on above: Performed By: #### U MICRO, ERUR #### [facility] [address] [place] [address] Dr. Howard Guthrie UR MICRO IND INDICATED Normal [facility] Comment on above: Performed By: #### U MICRO, ERUR #### [facility] [address] [place] [address] Dr. Howard Guthrie Urobilinogen Qn (U) 0.2 {Abdiaziz'U}/dL Normal 0.2 - 1. 0 [facility] Comment on above: Performed By: #### U MICRO, ERUR #### [facility] [address] [place] [address] Dr. Howard Guthrie PROF 14(COMP METB)on 023 Albumin [Mass/Vol] 3.8 g/dL Normal 3.4-5.0 [facility] Comment on above: Performed By: #### C MICHAELM, CMP #### [facility] [address] [place] [address] Dr. Howard Guthrie Albumin/Globulin [Mass ratio] 1.1 {ratio} Normal [facility] Comment on above: Performed By: #### C MICHAELM, CMP #### [facility] [address] [place] [address] Dr. Howard Guthrie ALP [Catalytic activity/Vol] 96 U/L Normal 46-116 [facility] Comment on above: Performed By: #### C MICHAELM, CMP #### [facility] [address] [place] [address] Dr. Howard Guthrie ALT [Catalytic activity/Vol] 19 U/L Normal 14-59 [facility] Comment on above: Performed By: #### C MICHAELM, CMP #### [facility] [address] [place] [address] Dr. Howard Guthrie Anion gap [Moles/Vol] 11.2 mmol/L Normal [facility] Comment on above: Performed By: #### C MICHAELM, CMP #### [facility] [address] [place] [address] Dr. Howard Guthrie AST [Catalytic activity/Vol] 19 U/L Normal 15-37 [facility] Comment on above: Performed By: #### C MADM, CMP #### [facility] [address] [place] [address] Dr. Howard Guthrie Bilirubin [Mass/Vol] 0.5 mg/dL Normal 0.2-1.0 [facility] Comment on above: Performed By: #### C MICHAELM, CMP #### [facility] [address] [place], [place] [id number] Dr. Howard Guthrie Calcium [Mass/Vol] 8.8 mg/dL Normal 8.5-10.1 [facility] Comment on above: Performed By: #### C JORDAN, CMP #### [facility] [address] [place] [address] Dr. Howard Guthrie Chloride [Moles/Vol] 104 mmol/L Normal 98-107 [facility] Comment on above: Performed By: #### C MICHAELM, CMP #### [facility] [address] [place] [address] Dr. Howard Guthrie CO2 [Moles/Vol] 24.1 mmol/L Normal 21.0-32.0 [facility] Comment on above: Performed By: #### C JORDAN, CMP #### [facility] [address] [place] [address] Dr. Howard Guthrie Creatinine [Mass/Vol] 0.73 mg/dL Normal 0.55-1.02 [facility] Comment on above: Performed By: #### C JORDAN, CMP #### [facility] [address] [place] [address] Dr. Howard Guthrie EGFR-AF CAMEROONIAN >60 Normal >=60 [facility] Comment on above: Performed By: #### C JORDAN, CMP #### [facility] [address] [place] [address] Dr. Howard Guthrie EGFR-NON AF CAMEROONIAN >60 Normal >=60 [facility] Comment on above: Performed By: #### C JORDAN, CMP #### [facility] [address] [place] [address] Dr. Howard Guthrie Globulin (S) [Mass/Vol] 3.6 g/dL Normal [facility] Comment on above: Performed By: #### C JORDAN, CMP #### [facility] [address] [place] [address] Dr. Howard Guthrie Glucose [Mass/Vol] 112 mg/dL Critically high 74-106 [facility] Comment on above: Performed By: #### C JORDAN, CMP #### [facility] [address] [place] [address] Dr. Howard Guthrie Potassium [Moles/Vol] 3.3 mmol/L Critically low 3.5-5.1 [facility] Comment on above: Performed By: #### C JORDAN, CMP #### [facility] [address] [place] [address] Dr. Howard Guthrie Protein [Mass/Vol] 7.4 g/dL Normal 6.4-8.2 [facility] Comment on above: Performed By: #### C JORDAN, CMP #### [facility] [address] [address] [address] Howard Guthrie Sodium [Moles/Vol] 136 mmol/L Normal 136-145 [facility] Comment on above: Performed By: #### C JORDAN, CMP #### [facility] [address] [place] [address] Dr. Howard Guthrie Urea nitrogen [Mass/Vol] 6.0 mg/dL Critically low 7.0-18.0 [facility] Comment on above: Performed By: #### C JORDAN, CMP #### [facility] [address] [place] [address] Dr. Howard Guthrie Urea nitrogen/Creatinine [Mass ratio] 8.2 mg/mg Normal [facility] Comment on above: Performed By: #### C JORDAN, CMP #### [facility] [address] [place] [address] Dr. Howard Guthrie TROPONIN, HIGH SENSITIVITYon 06-17-2022 HSTROP 4.6 pg/mL Normal 4.0-51.3 [facility] Comment on above: Result Comment: CUT- OFF POINTS HAVE BEEN ESTABLISHED BASED ON THE FOURTH UNIVERSAL DEFINITIONS OF MYOCARDIAL INFARCTION. THE UPPER REFERENCE LIMIT (URL) OF TROPONIN, DEFINED THE 99TH PERCENTILE OF cTnI DISTRIBUTION IN A REFERENCE POPULATION, HAS BEEN CONFIRMED THE DECISION THRESHOLD FOR [place] DIAGNOSIS. Performed By: #### H STROPN #### [facility] [address] [place] [address] Dr. Howard Guthrie URINE MICROSCOPIC ONLYon BACTERIA TRACE Abnormal NONE SEEN [facility] Comment on above: Performed By: #### U MICRO, ERUR #### [facility] [address] [address] [address] Howard Guthrie Bacteria identified Cx Nom (U) NOT INDICATED Normal [facility] Comment on above: Performed By: #### U MICRO, ERUR #### [facility] [address] [place] [address] Dr. Howard Guthrie CAST NONE SEEN Normal NONE SEEN [facility] Comment on above: Performed By: #### U MICRO, ERUR #### [facility] [address] [address] [address] Howard Guthrie Crystals LM Nom (Urine sed) NONE SEEN Normal NONE SEEN [facility] Comment on above: Performed By: #### U MICRO, ERUR #### [facility] [address] [place] [address] Dr. Howard Guthrie Epithelial cells LM Ql (Urine sed) FEW Abnormal NONE SEEN /RARE [facility] Comment on above: Performed By: #### U MICRO, ERUR #### [facility] [address] [address] [address] Howard Guthrie MUCOUS TRACE Abnormal NONE SEEN [facility] Comment on above: Performed By: #### U MICRO, ERUR #### [facility] [address] [place] [address] Dr. Howard Guthrie RBC 2-5 Abnormal 0-2 [facility] Comment on above: Performed By: #### U MICRO, ERUR #### [facility] [address] [place] [address] Dr. Howard Guthrie WBC NONE SEEN Normal NONE SEEN [facility] Comment on above: Performed By: #### U MICRO, ERUR #### [facility] [address] [place] [address] Dr. Howard Guthrie XR CHEST 1 Von [...] by: NICK MARIE Date: 2022-06-17 12:26 Normal [facility] Tobacco Screening.on 022 Adult depression screening assessment No [facility] 250 DO Work Phone: Tobacco use status CPHS a) Yes [facility] 250 DO Work Phone: Tobacco Screening. Yes [facility] 250 DO Work Phone: Vital Signs Date Time Vital Sign Value Performing Clinician Tonja figueroa 02-16-2024 09:35-0500 Blood Pressure Location Roosevelt Sotelo [facility] 02-16-2024 09:35-0500 Diastolic blood pressure 80 mm[Hg] Roosevelt Sotelo [facility] 02-16-2024 09:35-0500 Heart rate 76 /min Roosevelt Deepak [facility] 02-16-2024 09:35-0500 Respiratory rate 18 /min Roosevelt Sotelo [facility] 02-16-2024 09:35-0500 SaO2% (BldA) [Mass fraction] 100 % Roosevelt Sotelo [facility] 02-16-2024 09:35-0500 Systolic blood pressure 130 mm[Hg] Roosevelt Sotelo [facility] 09-13-2023 13:06-0400 Blood Pressure Location Roosevelt Sotelo [facility] 09-13-2023 13:06-0400 Diastolic blood pressure 85 mm[Hg] Roosevelt Sotelo [facility] 09-13-2023 13:06-0400 Heart rate 90 /min Roosevelt Sotelo [facility] 09-13-2023 13:06-0400 SaO2% (BldA) [Mass fraction] 99 % Roosevelt Sotelo [facility] 09-13-2023 13:06-0400 Systolic blood pressure 125 mm[Hg] Roosevelt Sotelo [facility] 08-10-2023 09:19-0400 Blood Pressure Location JES ROLLE [facility] 08-10-2023 09:19-0400 Body temperature 98.24 [degF] JES ELSA [facility] 08-10-2023 09:19-0400 Diastolic blood pressure 78 mm[Hg] JES ELSA [facility] 08-10-2023 09:19-0400 Heart rate 80 /min JES ESLA [facility] 08-10-2023 09:19-0400 Respiratory rate 19 /min JES ELSA [facility] 08-10-2023 09:19-0400 Systolic blood pressure 136 mm[Hg] JES ELSA [facility] 03-22-2023 13:16-0500 Blood Pressure Location Ramone Garcia [facility] 03-22-2023 13:16-0500 Diastolic blood pressure 85 mm[Hg] Ramone Garcia [facility] 03-22-2023 13:16-0500 Heart rate 90 /min Ramone Garcia [facility] 03-22-2023 13:16-0500 SaO2% (BldA) [Mass fraction] 99 % Ramone Garcia [facility] 03-22-2023 13:16-0500 Systolic blood pressure 126 mm[Hg] Ramone Garcia [facility] 12-15-2022 13:20-0400 Body height 165.1 cm Loretta Javier Other [facility] Other 12-15-2022 13:20-0400 Body mass index (BMI) [Ratio] 23.13 kg/m2 Loretta Javier Other [facility] Other 12-15-2022 13:20-0400 Body temperature 98.1 [degF] Loretta Javier Other [facility] Other 12-15-2022 13:20-0400 Body weight 63.05 kg Loretta Javier Other [facility] Other 12-15-2022 13:20-0400 Diastolic blood pressure 76 mm[Hg] Loretta Javier Other [facility] Other 12-15-2022 13:20-0400 Respiratory rate 18 /min Loretta Javier Other [facility] Other 12-15-2022 13:20-0400 SaO2% (BldA) [Mass fraction] 98 % Loretta Javier Other [facility] Other 12-15-2022 13:20-0400 Systolic blood pressure 128 mm[Hg] Loretta Javier Other [facility] Other 10-14-2022 11:10-0400 Body height 165.1 cm Tanya Glover Other [facility] Other 10-14-2022 11:10-0400 Body mass index (BMI) [Ratio] 23.39 kg/m2 Tanya Pangmond Other [facility] Other 10-14-2022 11:10-0400 Body temperature 97.8 [degF] Tanya Glover Other [facility] Other 10-14-2022 11:10-0400 Body weight 63.78 kg Tanya Glover Other [facility] Other 10-14-2022 11:10-0400 Diastolic blood pressure 85 mm[Hg] Tanya Pangmond Other [facility] Other 10-14-2022 11:10-0400 Respiratory rate 18 /min Tanya Glover Other [facility] Other 10-14-2022 11:10-0400 SaO2% (BldA) [Mass fraction] 99 % Tanya Glover Other [facility] Other 10-14-2022 11:10-0400 Systolic blood pressure 143 mm[Hg] Tanya Belen Other [facility] Other 06-24-2022 09:32-0400 Body height 165.1 cm No PCP None -[place] [employer] [facility] 250 DO Work Phone: 06-24-2022 09:32-0400 Body mass index (BMI) [Ratio] 24.63 kg/m2 No PCP None -[place] [employer] [facility] 250 DO Work Phone: 06-24-2022 09:32-0400 Body surface area Derived from formula 1.74 m2 No PCP None [facility] 250 DO Work Phone: 06-24-2022 09:32-0400 Body weight 67.13 kg No PCP None [facility] 250 DO Work Phone: 06-24-2022 09:32-0400 Diastolic blood pressure 82 mm[Hg] No PCP None [facility] 250 DO Work Phone: 06-24-2022 09:32-0400 Heart rate 88 /min No PCP None [facility] 250 DO Work Phone: 06-24-2022 09:32-0400 Systolic blood pressure 124 mm[Hg] No PCP None [facility] 250 DO Work Phone: 06-02-2021 15:09-0500 Diastolic blood pressure 98 mm[Hg] No PCP None [facility] 250 DO Work Phone: 06-02-2021 15:09-0500 Systolic blood pressure 142 mm[Hg] No PCP None [facility] 250 DO Work Phone: 06-02-2021 15:03-0500 Body height 165.1 cm No PCP None [facility] 250 DO Work Phone: 06-02-2021 15:03-0500 Body mass index (BMI) [Ratio] 28.29 kg/m2 No PCP None [facility] 250 DO Work Phone: 06-02-2021 15:03-0500 Body surface area Derived from formula 1.85 m2 No PCP None [facility] 250 DO Work Phone: 06-02-2021 15:03-0500 Body weight 77.11 kg No PCP None [facility] 250 DO Work Phone: 06-02-2021 15:03-0500 Diastolic blood pressure 90 mm[Hg] No PCP None [facility] 250 DO Work Phone: 06-02-2021 15:03-0500 Heart rate 92 /min No PCP None [facility] 250 DO Work Phone: 06-02-2021 15:03-0500 Systolic blood pressure 142 mm[Hg] No PCP None [facility] 250 DO Work Phone: Encounters Encounter Date Encounter Type Care Provider Facility Start: 04-10-2024 End: 04-10-2024 ambulatory JES ROLLE Facility:[facility] Start: 04-10-2024 End: 04-10-2024 Patient encounter procedure JES ROLLE [facility] Start: 03-27-2024 End: 03-27-2024 ambulatory Jes Cruz Facility:[facility] Start: 03-27-2024 End: 03-27-2024 Patient encounter [facility] Start: 03-23-2024 End: 03-23-2024 ambulatory CHLOE CEBALLOS [facility] Start: 03-09-2024 End: 03-09-2024 Evaluation and management of inpatient [facility] Start: 03-09-2024 End: 03-10-2024 Evaluation and management of inpatient [facility] Start: 03-06-2024 End: 03-06-2024 ambulatory Alexandro PARTIDA Facility:[facility] Start: 03-06-2024 End: 03-06-2024 Patient encounter procedure Alexandro PARTIDA [facility] [place] Start: 02-24-2024 End: 02-24-2024 [facility] Start: 02-24-2024 End: 02-24-2024 ambulatory [facility] Start: 02-18-2024 End: 02-18-2024 ambulatory Alexandro PARTIDA Facility:[facility] Start: 02-18-2024 End: 02-18-2024 Patient encounter procedure Alexandro PARTIDA [facility] Start: 02-16-2024 End: 02-17-2024 ambulatory Alexandro PARTIDA Facility:CD:[id number] Start: 02-16-2024 End: 02-16-2024 Patient encounter procedure Roosevelt Sotelo [facility] Start: 02-16-2024 End: 02-16-2024 Preprocedural examination done Roosevelt Sotelo [facility] Start: 02-04-2024 End: 02-15-2024 Pre-admission assessment Roosevelt Sotelo [facility] Start: 01-27-2024 End: 01-27-2024 ambulatory [facility] Start: 01-25-2024 End: 01-25-2024 ambulatory [facility] Start: 01-25-2024 End: 01-25-2024 ambulatory [facility] Start: 01-07-2024 End: 01-07-2024 ambulatory Roosevelt Sotelo Facility[facility] Start: 01-07-2024 End: 01-07-2024 Patient encounter procedure Roosevelt Sotelo [facility] Start: 12-17-2023 End: 12-17-2023 [facility]ulatory [facility] Start: 12-14-2023 End: 12-14-2023 ambulatory [facility] Start: 12-02-2023 End: 12-02-2023 Patient encounter procedure UX DEVELOPER-C Jes Cruz Work Phone: [facility] [address] Work Phone: Start: 12-02-2023 End: 12-02-2023 ambulatory UX DEVELOPER-C Jes Cruz Work Phone: [facility] Work Phone: Start: 11-26-2023 ambulatory Alexandro PRATIDA Facili ty:[facility] [place] Start: 11-25-2023 End: 11-25-2023 ambulatory Alexandro PARTIDA Facility:CD:[id number] Start: 11-01-2023 End: 11-01-2023 Patient encounter procedure UX DEVELOPER-C Jes Cruz Work Phone: [facility] [address] Work Phone: Start: 11-01-2023 End: 11-01-2023 ambulatory UX DEVELOPER-C Jes Cruz Work Phone: [facility] Work Phone: Start: 10-14-2023 End: 10-14-2023 ambulatory JES ROLLE Facility:[facility] [place] Start: 10-14-2023 End: 10-14-2023 Patient encounter procedure JES ROLLE [facility] Start: 10-12-2023 Non-patient / Non-visit UX DEVELOPER-C Tayla Cruz Work Phone: [facility] Work Phone: Start: 10-05-2023 End: 10-05-2023 ambulatory Alexandro PARTIDA Facility:[facility] Start: 10-05-2023 End: 10-05-2023 Patient encounter procedure Alexandro R PARTIDA [facility] Start: 09-18-2023 End: 09-19-2023 Emergency department patient visit CUATE KELLY [facility] Start: 09-13-2023 End: 09-13-2023 ambulatory Roosevelt Sotelo Facility:[facility] Start: 09-13-2023 End: 09-13-2023 Patient encounter procedure Roosevelt Sotelo [facility] Start: 09-11-2023 Non-patient / Non-visit UX DEVELOPER-Terrie Cruz Work Phone: [facility] Work Phone: Start: 08-10-2023 End: 08-10-2023 ambulatory JES ROLLE Facility:[facility] Start: 08-10-2023 End: 08-10-2023 Lab Drop off JES ROLLE [facility] Start: 08-10-2023 End: 08-10-2023 ambulatory JES ROLLE Facility:[facility] Start: 08-10-2023 End: 08-10-2023 Patient encounter procedure JES ROLLE [facility] Start: 06-09-2023 End: 06-09-2023 ambulatory Jes Cruz Facility:[facility] Start: 04-27-2023 ambulatory Roosevelt Sotelo Facility:[facility] Start: 04-16-2023 End: 04-16-2023 ambulatory Ramone Garcia Facility:[facility] Start: 04-16-2023 End: 04-16-2023 Patient encounter procedure Ramone Garcia [facility] Start: 04-01-2023 End: 04-01-2023 ambulatory PHYSICIAN NO FAMILY Facility:[facility] Start: 03-22-2023 End: 03-22-2023 Patient encounter procedure Ramone Garcia [facility] Start: 12-15-2022 End: 12-15-2022 ambulatory Loretta Javier Other [facility] Other Start: 12-15-2022 Office outpatient vi sit 25 minutes Loretta Javier [facility] Start: 10-14-2022 End: 10-14-2022 ambulatory Tanyahai Glover Other [place] [employer] Other Start: 10-14-2022 Office outpatient vi sit 15 minutes Tanyahai Glover [facility] Start: 08-14-2022 ambulatory Ms. Jes Cruz Facility: Start: 08-14-2022 FUV, Provider: Nadia Franks, Status: Pen, Time: 1:00 PM No PCP None [facility] 250 DO Work Phone: Start: 08-06-2022 Rx Renewal No PCP None [facility] 250 DO Work Phone: Start: 06-24-2022 Office outpatient vi sit 15 minutes No PCP None [facility] 250 DO Work Phone: Start: 06-24-2022 ambulatory Ms. Zuniga Tanvi Peter Facility: Start: 06-19-2022 End: 06-19-2022 ambulatory PHYSICIAN NO [facility] Work Phone: Start: 06-19-2022 End: 06-19-2022 Departed Referred PHYSICIAN NO [facility] Start: 06-17-2022 End: 06-17-2022 ambulatory RIVER MARTE . Facility: Start: 11-10-2021 ambulatory Ms. Zuniga Tanvi Peetr Facility: Start: 10-27-2021 Rx Renewal No PCP None [facility] 250 DO Work Phone: Start: 06-02-2021 Office outpatient vi sit 25 minutes No PCP None [facility] 250 DO Work Phone: Procedures Date Procedure Procedure Detail Performing Clinician Start: 02-17-2024 Insertion of single incision mid-urethral mini-sling Alexandro PARTIDA Start: 12-02-2023 MR lumbar spine wo con UX DEVELOPER-Terrie paiz Work Phone: Start: 11-01-2023 Urine culture UX DEVELOPER-Terrie sotelo Work Phone: Start: 10-05-2023 Cystourethroscopy with dilation of urethral stricture JES ROLLE Cardiac catheter (ph ysical object) Ramone Garcia Cardiac catheterization No P CP None Colonoscopy Ramone Chase daniel Hysterectomy Ramone daltonshantell Operative procedure on foot No PCP None Procedure on back No PCP Non e Procedure on back Ramone salomon Plan of Treatment Date Care Activity Detail Author Start: 11-01-2023 Bacteria identified in Urine by Culture [facility] Start: 08-14-2022 FUV, Provider: Nadia Franks, Status: Pen, Time: 1:00 PM [facility]UV, Provider: Nadia Franks, Status: Pen, Time: 1:00 PM [facility] 250 DO Work Phone: Start: 11-10-2021 FUV, Provider: Nadia Franks, Status: Pen, Time: 3:00 PM [facility]UV, Provider: Nadia Franks, Status: Pen, Time: 3:00 PM [facility] 250 DO Work Phone: Start: 06-30-2021 FUV, Provider: Nadia Franks, Status: Pen, Time: 8:00 AM [facility], Provider: Nadia Franks, Status: Pen, Time: 8:00 AM [facility] 250 DO Work Phone: Estradiol (E2) [Mass/volume] in Serum or Plasma [facility] Lutropin [Units/volu me] in Serum or Plasma [facility] Immunizations Immunization Date Immunization Notes Care Provider Fa cili 03-25-2021 influenza, injectabl e, quadrivalent, preservative free No PCP None [facility] 01-05-2020 influenza, injectabl e, quadrivalent, preservative free No PCP None [facility] 250 DO Work Phone: 01-06-2019 influenza, injectabl e, quadrivalent, preservative free [facility] Payers Date Payer Category Payer Self-pay [id number] 1970 Unknown [id number] [id number]. 593 1971 Unknown [id number] 2.16840.1.404342.3.579.2. 356 1971 Unknown [id number] 2.16840.1.755820.3.579.2. 356 1971 Unknown [id number] 2.16840.1.291782.3.579.2. 356 1971 Unknown [id number] 2.16840.1.901530.3.579.2. 1286 1971 Unknown [id number] 2.16840.1.264448.3.579.2. 1286 1971 Unknown [id number] 2.16840.1.905161.3.579.2. 727 1971 Unknown [id number] 2.16840.1.674571.3.579.2. 727 1971 Unknown [id number] 2.16.840.1.769604.3.579.2. 1971 Unknown [id number] 2.16.840.1.288025.3.579.2 1971 Unknown [id number] 2.16.840.1.872206.3.579.2 1971 Unknown [id number] 2.16.840.1.459942.3.579.2 1971 Unknown [id number] 2.16.840.1.854626.3.579.2 1971 Unknown [id number] 2.16.840.1.062036.3.579.2 1971 Unknown [id number] 2.16.840.1.059571.3.579.2 1971 Unknown [id number] 2.16.840.1.438821.3.579.2 1971 Unknown [id number] 2.16.840.1.188305.3.579.2 1971 Unknown [id number] 2.16.840.1.338265.3.579.2 1971 Unknown [id number] 2.16.840.1.143804.3.579.2 1971 Unknown [id number] 2.16.840.1.628037.3.579.2 1971 Unknown [id number] 2.16.840.1.962639.3.579.2 1971 Unknown [id number] 2.16.840.1.575997.3.579.2 1959 Medicaid [id number] Private Health Insurance [id number] Unknown [id number] Unknown [facility] Unknown [id number] Unknown [id number] 2.16.840.1.954366.3.579.2. 531 Unknown [id number] 2.16.840.1.984416.3.579.2. 531 Unknown [id number] 2.16.840.1.824132.3.579.2. 531 Unknown [id number] 2.16.840.1.963551.3.579.2. 531 Unknown [id number] 2.16.840.1.825892.3.579.2. 531 Social History Date Type Detail Facility Tobacco smoking stat [facility] Unknown if ever smoked [facility] Start: 1970 Sex Assigned At Female F [facility] Illicit drug use Illicit drug use [facility]Kaylee [facility] 250 DO Work Phone: Comment on above: 1 pack per daily.; Start: 05-26-2021 Tobacco smoking stat [facility] Ex-smoker (finding) [facility] Sex Assigned At [facility] Start: 03-22-2023 End: 02-16-2024 Tobacco smoking status Light tobacco smoker (finding) [facility] Tobacco smoking status Never [facility] Medical Equipment Procedure Code Equipment Code Equipment Origin al Text Equipment Identifier Dates Thoracotomy Staple line-reinforcement strip [id number] FDA Start: 03-26-2021 Thoracotomy Surgical adhesive/sealant, human-derived ()[id number] FDA Start: 03-26-2021 Goals Date Patient Goal Desired Activity /State Functional Status Date Assessment Result Facility 02-16-2024 Functional Status N/A [facility] 10-14-2023 Functional Status N/A [facility] 09-13-2023 Functional Status No [facility] 08-10-2023 Functional Status N/A [facility] 03-22-2023 Functional Status No [facility] Clinical Notes 10-14-2022 to 04-13-2024 Note Date & Type Note Facility 04-13-2024 Note pain [facility] 03-23-2024 Note SUBJECTIVE: Chief complaint: Postoperative visit for removal of L4-S1 hardware on 03/09/[address] Yee. History of present illness: Reports that she is doing very well since surgery. Back pain that she was having prior to surgery has largely resolved. She is taking 1 oxycodone at bedtime only. Denies leg pain or paresthesia. She does report some slight numbness of her left buttock occasionally, which she attributes to nerve irritation. Denies falls, imbalance, bowel or bladder changes, issues with the incision. She is requesting 1 additional refill of oxycodone and does not feel that she would need any more after that. 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 She states that her employer is able to work within her restrictions. Review of systems: As in HPI. Past Medical History: Diagnosis Date Alcohol abuse Anxiety Bipolar disorder ([facility]) Chronic sinusitis Cocaine use 05/2023 COPD (chronic obstructive pulmonary disease) ([facility]) Coronary vasospasm ([facility]) Diverticulosis per CT 08/2023 Dyslipidemia Endometriosis Hypertension Spontaneous pneumothorax Vitamin D deficiency Past Surgical History: Procedure Laterality Date CARDIAC CATHETERIZATION 2020 COLONOSCOPY 2019 FOOT SURGERY Right 2022 HYSTERECTOMY endometriosis, partial hysterectomy LUMBAR FUSION LUMBAR SPINE HARDWARE REMOVAL 03/09/2024 Dr. Yee THORACOSCOPY W/ TALC PLEURODESIS for spontaneous pneumothorax 03/2021 Social History Tobacco Use Smoking status: Every Day Current packs/day: 0.25 Average packs/day: 0.3 packs/day for 30.0 years (7.5 ttl pk-yrs) Types: Cigarettes Passive exposure: Current Smokeless tobacco: Never Vaping Use Vaping status: Some Days Substances: Nicotine, THC, CBD, Flavoring Devices: Disposable Substance Use Topics Alcohol use: Never Comment: 89 days sober Drug use: Yes Types: Marijuana Comment: medical card Family History Problem Relation Name Age of Onset Coronary artery disease Mother Hypertension Mother Other (substance use) Father Hypertension Father Other (substance abuse) Daughter 05/2023 drug overdose OBJECTIVE: Medications: ARIPiprazole aspirin atorvastatin busPIRone cholecalciferol docusate sodium gabapentin ibuprofen isosorbide mononitrate ER meclizine melatonin methocarbamol mirtazapine naloxone nicotine nicotine polacrilex omeprazole ondansetron ODT oxyCODONE prazosin propranolol propylene glycol liquid Current Outpatient Medications: ARIPiprazole (Abilify) 10 mg [...] DAILY FOR 90 DAYS, Disp: , Rfl: docusate sodium (Colace) 100 mg capsule, Take 1 capsule (100 mg) by mouth two times daily for 15 days. For constipation. Do not take if diarrhea., Disp: 30 capsule, Rfl: 0 gabapentin (Neurontin) 400 mg capsule, [...] mouth in the morning., Disp: , Rfl: methocarbamol (Robaxin) 750 mg tablet, Take 1 tablet (750 mg) by mouth if needed in the morning, at noon, in the evening, and at bedtime for muscle spasms for up to 15 days., Disp: 60 tablet, Rfl: 0 mirtazapine (Remeron) 7.5 mg tablet, Take 7.5 [...] Take 10 mg by mouth in the morning and at bedtime., Disp: , Rfl: propylene glycol 99.5 % (not less than, [facility]IOR [facility]) liquid external solution, , Disp: , Rfl: oxyCODONE (Roxicodone) 10 mg immediate release tablet, Take 1 tablet (10 mg) by mouth if needed (more content not included)... [facility] 03-17-2024 Hospital Discharge instructions Follow Up Care 03/17/2024 10:42:00 With:JAQUAN PATRICK, Alexandro Hernandez, URL Address: [facility] [address] , [place] [phone] When: Unknown [facility] 03-10-2024 Note Advised by therapy p t requesting DME raised toilet seat and shower chair. Pt requested to use [employer] in [place] but they were out of network. Called around and found [employer] in [place] able to fulfill. Sent scripts/face to face and clinicals by fax and advised pt they will call when ready for pickup. [facility] 03-10-2024 Note Occupational Therapy Occupational Therapy Evaluation Patient Name: Isela Craig : 1970 Today's Date: 03/10/2024 03/10/24 1400 Time Calculation Start Time 1324 Stop Time 1343 Time Calculation (min) 19 min OT Evaluation Time Entry OT Evaluation (Low) Time Entry 19 General History of Present Illness: Patient is a 53 year old female with loosening hardware in spine, R S1 screw fracture and reports of low back pain. Patient was admitted on 03/09/2024 for removal of L4-S1 hardware. Subjective: Patient was friendly and cooperative during evaluation. Patient stated she was happy to be able to walk in the hallway. OT Diagnosis: Loosening of hardware in lumbar spine Patient Active Problem List Diagnosis Anxiety Grief Primary hypertension Loosening of hardware in spine ([facility]) Back pain, lumbosacral Past Medical History: Diagnosis Date Alcohol abuse Anxiety Bipolar disorder ([facility]) Chronic sinusitis Cocaine use 05/2023 COPD (chronic obstructive pulmonary disease) ([facility]) Coronary vasospasm ([facility]) Diverticulosis per CT 08/2023 Dyslipidemia Endometriosis Hypertension Spontaneous pneumothorax Vitamin D deficiency Past Surgical History: Procedure Laterality Date CARDIAC CATHETERIZATION 2020 COLONOSCOPY 2019 FOOT SURGERY Right 2022 HYSTERECTOMY endometriosis, partial hysterectomy LUMBAR FUSION LUMBAR SPINE HARDWARE REMOVAL 03/09/2024 Dr. Yee THORACOSCOPY W/ TALC PLEURODESIS for spontaneous pneumothorax 03/2021 Precautions Precautions Medical Precautions: no bending lifting or twisting Pain Pain Assessment Pain Assessment: 0-10 Pain Score: 7 Pain Location: Buttocks Pain Orientation: Left Cognition Cognition Arousal/Alertness: Appropriate responses to stimuli Orientation Level: Oriented X4 Following Commands: Follows all commands and directions without difficulty Safety Judgment: Good awareness of safety precautions Deficits: Fully aware of deficits Attention Span: Appears intact Memory: Appears intact Problem Solving: Able to problem solve independently Communication: Intact General Assessment General Assessment Hearing: WNL Hand Dominance: Right Home Living Home Living Type of Home: Mobile home Lives With: Family (Brother) Home Adaptive Equipment: None Home Layout: One level Home Access: Stairs to enter without rails Entrance Stairs-Rails: None Entrance Stairs-Number of Steps: 1+1 (Platform step) Bathroom Shower/Tub: Tub/shower unit, Curtain Bathroom Toilet: Standard Bathroom Equipment: Grab bars in shower, Grab bars around toilet (patient would benefit from shower chair and toilet riser) Prior Level of Function Prior Function Level of [place]: Independent with ADLs and functional transfers, Independent with homemaking with ambulation Prior Functional Mobility: Independent without device, Household distances, Community distances Receives Help From: Family (Brother) ADL Assistance: Independent Homemaking Assistance: Independent 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 Patient's job involves heavy lifting and standing constantly.) Leisure: Computer games and jaylen art Prior IADLs IADL History Current License: Yes Mode of Transportation: Car Static Sitting Balance Static Sitting Balance Static Sitting-Balance Support: Feet supported Static Sitting-Level of Assistance: Independent Dynamic Sitting Balance Dynamic Sitting Balance Dynamic Sitting-Balance Support: Feet supported Dynamic Sitting Balance-Level of Assistance: Independent Static Standing Balance Static Standing Balance Static Standing-Balance Support: No upper extremity supported Static Standing-Level of Assistance: Independent Dynamic Standing Balance Dynamic Standing Balance Dynamic Standing-Balance Support: No upper extremity supported Dynamic Standing-Balance: Reaching for objects Dynamic Standing Balance-Level of Assistance: Independent ADL ADL Eating Assistance: Independent Grooming Assistance: Independent UE Dressing Assistance: Independent LE Dressing Assistance: Independent LE Dressing Deficit: (Patient retrieved and put on slippers. OT instructed patient on bringing her leg up while seated to put on socks rather than forward flexing.) Bed Mobility Bed Mobility Bed Mobility: Yes Bed Mobility 1 Bed Mobility From 1: Supine Bed Mobility Type 1: To Bed Mobility to 1: Short sit Level of Assistance 1: Independent Bed Mobility Comments 1: From a flat bed, patient log rolled onto her left side and then sat up on edge of bed. Transfers Transfers Transfer: Yes Transfer 1 Transfer From 1: Bed, Sit Transfer Type 1: To Transfer to 1: Chair with arms Technique 1: Sit to stand, Stand to sit Transfer Device 1: none Transfer Level of Assistance 1: Independent Objective General Assess (more content not included)... [facility] 03-10-2024 Note 03/10/24 1143 Admission Assessment Questions Verify insurance with patient Yes Do you understand medical disease or what brought you into the hospital? Yes Who is your current PCP? ALAYNA Cruz Can I schedule a follow up appointment for you at the time of discharge? Yes Do you understand why you are taking your current medications? Yes Are you taking your medications as prescribed? Yes Did patient provide teach back? No Pharmacy Bedside Delivery Status Interested Does the patient have a manager of case assigned to them through their insurance? No Living Arrangement (Current/Prior to Hospitalization) Private residence (Lives in trailer w brother, 1 stair to enter, no rail) Does the patient have history of HHC or SNF? No Assistive Device Not applicable Patient's goal for discharge Home Was patient reminded that goal for discharge is 11am? Yes Does the patient have transportation at discharge? Yes (Brother's friend) Type of Residence Private residence Is PT/OT appropriate? Yes Is PT/OT ordered? Yes Is SW consult appropriate? No Is SW consult ordered? No Do you understand the benefits of MyChart? Yes Were you able to send link and activate MyChart? Yes [facility] 03-10-2024 Note Clinical Therapist B fabiola Intervention Note Substance Intervention: Raise the Subject: Clinician introduced self and asked permission to discuss substance use screening score. Pt agreed. Pt states she uses marijuana to manage pain and anxiety instead of risking addiction to pain and/ or anxiety medication. Pt reports she is currently six months sober from alcohol and expresses pride in this achievement. Pt states her daughter and her son both from overdoses and she knows they would want better for her as her motivation to maintain sobriety from alcohol. Pt denies marijuana negatively affecting her life Provide Feedback: Clinician commended pt on her sobriety from alcohol. Clinician discussed the potential dangers of marijuana use and lft pt education regarding this as well as substance use disorder brochure. Also discussed the potential dangers of replacing addictions and encouraged pt to reach out if she felt her marijuana use was becoming problematic Enhance Motivation: pt did not express a desire to make any changes with her marijuana use Negotiate a Plan: NA Prescription for Change: NA Readiness Ruler Exercise Patient's readiness to change was 1 on a scale of 1-10, with 1 being the least ready to change and 10 being the most ready to change. We explored why it was not a lower number and discussed patient's own motivation for change. Patient Goals/Discussion: NA Referral for Treatment was offered: Resources provided and Patient declines DAST Interventions Brief counselling was offered to the patient: Yes Referral for addictions treatment was offered: Pt declined Audit C Interventions To your knowledge, has alcohol ever caused significant problems for the patient? (e.g., significant distress to patient or those close to patient or impairment in social, occupational, or other important areas of functioning): No To your knowledge, have drugs or other substances ever caused significant problems for the patient? (e.g., significant distress to patient or those close to patient or impairment in social, occupational, or other important areas of functioning): No Brief counselling was offered to the patient: No Referral for addictions treatment was offered: No In total 5 minutes of aggregate personnel time was spent administering and interpreting the screen, plus performing a brief intervention. Assessment completed by: HARVEY Milton [facility] 03-09-2024 Note Patient: Isela Greene rbin Procedure Summary Date: 03/09/24 Room / Location: [facility] OPERATING ROOM 03 / [facility] Operating Room Anesthesia Start: 1237 Anesthesia Stop: 1454 Procedure: L4-S1 Removal of Hardware(Screws and Rods) Diagnosis: Loosening of hardware in spine (CMS/HCC) (Loosening of hardware in spine (CMS/HCC) [T84.498A]) Surgeons: León Yee MD Responsible Provider: Marjorie Ravi MD Anesthesia Type: general ASA Status: 2 Anesthesia Type: general Vitals Value Taken Time BP 126/70 03/09/24 1547 Temp 03/09/24 1553 Pulse 67 03/09/24 1551 Resp 15 03/09/24 1551 SpO2 100 % 03/09/24 1551 Vitals shown include unfiled device data. Anesthesia Post Evaluation Patient location during evaluation: PACU Patient participation: complete - patient participated Level of consciousness: awake and alert Pain management: satisfactory to patient Airway patency: patent Cardiovascular status: acceptable and stable Respiratory status: acceptable, unassisted and spontaneous ventilation Hydration status: stable Patient is hemodynamically stable and is able to be discharged from PACU per anesthesia protocol. No notable events documented. [facility] 03-09-2024 Note Airway Date/Time: 03/09/2024 12:42 PM Urgency: elective General Information and Staff Patient location during procedure: OR Anesthesiologist: Marjorie Ravi MD Performed: resident/MA[employer]T/CAA Indications and Patient Condition Indications for airway management: anesthesia Spontaneous Ventilation: absent Sedation level: deep Preoxygenated: yes Mask difficulty assessment: 1 - vent by mask Final Airway Details Final airway type: endotracheal airway Successful airway: ETT Cuffed: yes Successful intubation technique: direct laryngoscopy Endotracheal tube insertion site: oral Blade: Juan Blade size: #3 ETT size (mm): 7.0 Cormack-Lehane Classification: grade I - full view of glottis Placement verified by: chest auscultation and capnometry Measured from: lips Number of attempts at approach: 1 Number of other approaches attempted: 0 [facility] 03-09-2024 Note Patient: Isela Greene rbin Procedure Information Date/Time: 03/09/241199 Procedure: L4-S1 Removal of Hardware(Screws and Rods) - C-Arm, Open Ulisses Table, OBSERVATION, [employer] NOTIFIED 02/24 TaylaK Location: [facility] OPERATING ROOM 03 / [facility] Operating Room Surgeons: León Yee MD Relevant Problems Cardio (+) Primary hypertension Clinical information reviewed: Tobacco Allergies Meds Med Hx Surg Hx OB Status Fam Hx Soc Hx Physical Exam Airway Mallampati: II TM distance: >3 FB Neck ROM: full Cardiovascular - normal exam Rhythm: regular Rate: normal Dental (+) upper dentures Pulmonary - normal exam Abdominal Other findings: Pertinent history includes: Alcohol abuse Anxiety Bipolar disorder (CMS/HCC) 05/2023: Cocaine use COPD (chronic obstructive pulmonary disease) (CMS/HCC) Coronary vasospasm ([facility]) Hypertension Spontaneous pneumothorax HYSTERECTOMY LUMBAR FUSION THORACOSCOPY W/ TALC PLEURODESIS Comment: for spontaneous pneumothorax 03/2021 Smoking status: Every Day Years: 0.3 packs/day for 30.0 years (7.5 ttl pk-yrs) Smokeless tobacco: Never Vaping Use Vaping status: Some Days Substances: Nicotine, THC, CBD, Flavoring Devices: Disposable Alcohol use: Former Drug use: Yes Types: Marijuana Comment: medical card Pertinent Diagnostic data includes: WBC 8.72 02/24/2024 HGB 13.6 02/24/2024 HCT 41.2 02/24/2024 PLT 388 02/24/2024 NA 139 02/24/2024 K 3.6 02/24/2024 CO2 27 02/24/2024 CL 104 02/24/2024 BUN 12 02/24/2024 CREATININE 0.77 02/24/2024 GLUCOSE 83 02/24/2024 CALCIUM 9.6 02/24/2024 PT 13.4 02/24/2024 INR 1.02 02/24/2024 Fasting / NPO guidelines have been met unless otherwise stated, including NPO for solids > 8 hrs. HCG: N/A Hysterectomy Pt is not regularly taking therapeutically dosed systemic anticoagulant, Pt is not regularly taking beta humera. Anesthesia Plan ASA 2 general (Prone) The patient is a current smoker. Patient was previously instructed to abstain from smoking on day of procedure. Patient did not smoke on day of procedure. Education provided regarding risk of obstructive sleep apnea. intravenous induction Postoperative administration of opioids is intended. Anesthetic plan and risks discussed with patient. Use of blood products discussed with patient who consented to blood products. Plan discussed with attending and resident. Additional Equipment Requests [facility] 02-24-2024 Note SUBJECTIVE: Chief complaint: Preoperative visit for removal of L4-S1 hardware scheduled for 03/09/[address] Yee. History of present illness: Patient had a lumbar fusion by neurosurgeon Dr. Hernández about 20 years ago. States prior to surgery, she had been experiencing low back pain. Surgery did seem to help her back pain. However, this summer she was dragged across her yard by her dog. States since then, she has been having bilateral low back pain. No variation with time of day. Better lying supine. Worse with movement, bending, twisting. Reports imbalance, though denies falls. States she stumbles frequently, though also acknowledges history of dizziness. Did recently have a bladder sling, which seems to help her urinary urgency. Denies bowel incontinence. She has not had any recent physical therapy. Has been referred to pain management by her primary care provider, though has not yet seen them. Has tried medications such as meloxicam, ibuprofen, muscle relaxants without lasting or substantial relief. Tramadol helps some. Requesting refill. 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 Review of systems: As in HPI. Denies cough, chest pain, shortness of breath. Denies rashes, wounds, open sores. Past Medical History: Diagnosis Date Alcohol abuse [...] History Tobacco Use Smoking status: Every Day Current packs/day: 0.25 Average packs/day: 0.3 packs/day for 30.0 years (7.5 ttl pk-yrs) Types: Cigarettes Passive exposure: Current Smokeless tobacco: [...] Take 10 mg by mouth in the morning and at bedtime., Disp: , Rfl: propylene glycol 99.5 % (not less than, [facility]) liquid external (more content not included)... [facility] 02-02-[address] Kathy alicea. Dx: spinal hardware complication. Procedure: Removal of hardware L4-S1--screws and rods. Time: 1.5-2 hours. Position: Prone on open Ulisses. Need: C arm. Is on aspirin--not sure who prescribes this for her, but would need clearance to stop. [facility] 01-27-2024 Note SUBJECTIVE: Chief complaint: Broken [...] Diagnosis Date Alcohol abuse Anxiety Bipolar disorder ([facility]) Chronic sinusitis Cocaine use 05/2023 COPD (chronic obstructive pulmonary disease) ([facility]) Coronary vasospasm ([facility]) Diverticulosis per CT 08/2023 Dyslipidemia Endometriosis Hypertension [...] by mouth in (more content not included)... [facility] 01-26-2024 Hospital Discharge instructions Follow Up Care 01/26/2024 14:28:39 With:JAQUAN PATRICK, Alexandro Hernandez, URL Address: [facility] [address] [place] [address]- [phone] When: Unknown [facility] [place] 12-14-2023 Note SUBJECTIVE: Chief complaint: Broken lumbar [...] Diagnosis Date Alcohol abuse Anxiety Bipolar disorder ([facility]) Chronic sinusitis Cocaine use 05/2023 COPD (chronic [...] BEDTIME, Disp: , (more content not included)... [facility] 10-14-2023 Hospital Discharge instructions Patient Education [...] including vitamins, herbs, eye drops, creams, and mupq-ipm-nfofqlu medicines. Any problems you or family members [...] provider tells you to take them. Taking wyjn-qgk-gnanxpo medicines, vitamins, herbs, and supplements. Surgery safety [...] provider. Document Revised: 10/25/2020 Document Reviewed: 10/25/2020 [employer] Patient Education 2022 [email or web address]. Follow Up Care 10/05/2023 10:22:18 With:[facility] Address: [facility] [place] [address] Business (1) When: Unknown Comments:for procedure as scheduled [facility] 10-14-2023 Note Patient Education Obstetrics and Gynecology [...] including vitamins, herbs, eye drops, creams, and wvgv-ffs-gqplfgu medicines. ? Any problems you or family [...] tells you to take them. ? Taking qfxe-glj-zlhrcel medicines, vitamins, herbs, and supplements. Surgery safety [...] intended to replace (more content not included)... [facility] 08-10-2023 Evaluation + Plan note Diagnostic Tests PendingUrine Cytology ([facility]) 08/10/23 [facility] 08-10-2023 Hospital Discharge instructions Patient Education [...] require a prescription. You can also purchase ixnl-aum-ydyfsvz medicines. Medicines may have nicotine in them [...] and encouragement. Call telephone quitlines, such as 4-272-USLI-NOW, reach out to support groups, or work [...] provider. Document Revised: 03/13/2022 Document Reviewed: 03/13/2022 [employer] Patient Education 2022 [employer] 08/10/2023 10:11:31 Cystoscopy Cystoscopy Cystoscopy is [...] including vitamins, herbs, eye drops, creams, and vpys-nel-hmuujtt medicines. Any problems you or family members [...] provider tells you to take them. Taking xrvg-xpm-prkmody medicines, vitamins, herbs, and supplements. Tests You [...] Follow these instructions at home: Medicines Take tots-fjn-oyjydwb and prescription medicines only as told by [...] provider. Document Revised: 12/03/2021 Document Reviewed: 11/01/2020 [employer] Patient Education 2022 [email or web address]. Follow Up Care 04/30/2023 12:48:57 With:ELSA MOSES, JES Akhtar, URL Address: [address] [place] [address]. [place] [address] [phone] When: Unknown [facility] 08-10-2023 Note Chief Complaint Jes Gomes, MAKENZIE [...] prior Dr. Moreau pt, referred by Jes Cruz, MAKENZIE for microscopic hematuria and renal cyst. Son [...] has had dark urine. Bladder/[place]al [place] 04[place]01[place]23 [facility] - No renal mass, stone or hydro. Unremarkable bladder. KUB 04/01/23 [facility] - No obvious urinary tract calculi. AMOL 08/02/23 [facility] - No renal stones or hydro. Unremarkable bladder. KUB 08/02/23 [facility] - No urinary tract calculi. Educated [...] upon conclusion of the workup. -CTU at [facility] now -Urine sample to be sent [...] pain (R10.9: Unspecified abdominal pain) AMOL/KUB 08/02/23 [facility] - neg. States pain is in her [...] Cyst of kidney, acquired) Bladder/renal US 04/01/23 [facility] - Small L renal cyst. 06/09/23 - BUN 14. Cr 0.63. GFR >60. -Simple cysts do not require follow-up Ordered: CT Urogram 5. Smoker (F17.200: Nicotine dependence, unspec (more content not included)... [facility] Comment on above: Result Comment: Elec tronically Signed By: ELSA PAJES Chand\.br\Date and Time Signed: 08/10/23 10:56 EDT\.br\Electronically Co-Signed By: Mirela Lozoya\.br\Date and Time Co-Signed: 08/10/23 10:16 EDT 04-17-2023 Note Echocardiology Procedure Exam Date/Time Accession # Ordering Echo Transthoracic 04/16/2023 14:37 EST [id number] Jose PATRICK, Ramone Butt CPT code [id number] Reason for Exam (Echo Transthoracic Complete) I25.10;CAD Coronary artery disease Report Version: 1 Study ID: [id number] Adult Echocardiogram Report Name: ISELA CRAIG Study Date: 04/16/2023, 1: 10 PM Patient Location: : 1970 (MM/DD/YYYY) Gender: Female Age: 52 [...] Signed by: Ramone Garcia MD Transcribed by: [facility] Technologist: GARRY [facility] 12-15-2022 Evaluation note Encounter Date Diagnosis [...] understanding and is agreeable to treatment plan [facility] Other 07-12-2023 Evaluation note* Encounter Date Diagnosis [...] - Z20.822) Oct, Bronchitis (ICD-10 - J40) [facility] Other Evaluation + Plan note Future Appointments Appointment Date:05/13/2023 03:45:00 PM Scheduled Provider:Ramone Garcia MD [facility] Type:Cardiology Follow Up (FT) Future Scheduled Tests Radiology* NM Myocardial Spect Rest/Stress 1 Day 03/22/23 * Echo Transthoracic [facility] Future App[facility]ments Appointment Date:05/13/2023 03:45:00 PM Scheduled Provider:Ramone Garcia MD Location[facility] Appointment Type:[facility]iology [facility] ([facility]) [facility] Future Appointments Appointment Date:09/27/2023 09:30:00 AM Scheduled Provider: [facility] Appointment Type:Urology CALL PAT FT Appointment Date:10/05/2023 09:00:00 AM Scheduled Provider: Location:[facility] Appointment Type:Urology FT Appointment Date:12/13/2023 01:00:00 PM Scheduled Provider:Roosevelt Sotelo PA-C Location:[facility] Appointment Type:Cardiology Follow Up (FT) Future Scheduled Tests Radiology* US Carotid Duplex Bilateral [facility] Future Appointments Appointment Date:10/14/2023 12:40:00 PM Scheduled Provider:JES ROLLE PA-C Location:[facility] Appointment Type:URO Complex Office Visit Appointment Date:12/13/2023 01:00:00 PM Scheduled Provider:Roosevelt Sotelo PA-C [facility] Type:Cardiology Follow Up (FT) Future Scheduled Tests Radiology* US Carotid Duplex Bilateral [facility]14[facility]23 [facility] Future Appointments Appointment Date:11/26/2023 09:30:00 AM Scheduled Provider: Location:[facility] Appointment Type:URO Nurse Visit Appointment Date:12/13/2023 01:00:00 PM Scheduled Provider:Roosevelt Sotelo PA-C [facility] Type:Cardiology Follow Up (FT) Appointment Date:12/13/2023 01:45:00 PM Scheduled Provider:Alexandro PARTIDA MD Location:[facility] Appointment Type:URO Office Visit Future Scheduled Tests Radiology* US Carotid Duplex Bilateral 09/14/23 [facility] evaluation + Plan note Future Appointments Appointment Date:02/21/2024 02:30:00 PM Scheduled Provider:Roosevelt Sotelo PA-C Location:[facility] Appointment Type:Cardiology Follow Up (FT) [facility] Evaluation + Plan note Future Appointments Appointment Date:02/16/2024 09:30:00 AM Scheduled Provider:Roosevelt Sotelo PA-C [facility] Type:Cardiology Follow Up (FT) Appointment Date:02/18/2024 08:30:00 AM Scheduled Provider: Location:[facility] Appointment Type:URO Nurse Visit Appointment Date:03/06/2024 09:00:00 AM Scheduled Provider:Alexandro PARTIDA MD Location:[facility] Appointment Type:URO Office Visit [facility] evaluation + Plan note Future Appointments Appointment Date:02/18/2024 08:30:00 AM Scheduled Provider: Location:[facility] Appointment Type:URO Nurse Visit Appointment Date:03/06/2024 09:00:00 AM Scheduled Provider:Alexandro PARTIDA MD Location:[facility] Appointment Type:URO Office Visit Appointment Date:08/15/2024 09:30:00 AM Scheduled Provider:Roosevelt Sotelo PA-C Location:[facility] Appointment Type:Cardiology Follow Up (FT) [facility] evaluation + Plan note Future Appointments Appointment Date:03/06/2024 09:00:00 AM Scheduled Provider:Alexandro PARTIDA MD Location:[facility] Appointment Type:URO Office Visit Appointment Date:08/15/2024 09:30:00 AM Scheduled Provider:Roosevelt Sotelo PA-C Location:[facility] Appointment Type:Cardiology Follow Up (FT) [facility] evaluation + Plan note Future Appointments Appointment Date:08/15/2024 09:30:00 AM Scheduled Provider:Roosevelt Sotelo PA-C Location:[facility] Appointment Type:Cardiology Follow Up (FT) [facility] evaluation + Plan note Future Appointments Appointment Date:04/10/2024 10:00:00 AM Scheduled Provider:JES ROLLE PA-C Location:[facility] Appointment Type:URO Office Visit Appointment Date:08/15/2024 09:30:00 AM Scheduled Provider:Roosevelt Sotelo PA-C Location:[facility] Appointment Type:Cardiology Follow Up (FT) [facility] evaluation noteNo assessment information available [facility] Work Phone: Hisqpyw general Narrative - Reported* Type Description Date Surgical History hysterectomy Surgical History lumbar apomio Other History of Present illness Narrative* The [...] denies medication side effects. [facility] DO Work Phone: Hospital course Narrative No data available for this section [facility] No data available for this section [facility] No data available for this section [facility] Assessments No Assessments Information Available [...] Patient was recently hospitalized at [facility]. The patient was seen in Cardiology consult with subsequent cardiovascular management by [facility]. Hospitalization records have been reviewed. * Reason for Cardiology Consultation: chest pain (presented with spontaneous PTX) * Consulting Secretary Bookkeeper: Dr. Lopez * Cardiovascular testing: cardiac cath [...] evaluation. * Last week she presented to [facility] due to chest pain and dizziness. [...] and fluttering . 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 Due to blood pressure and palpitations [...] FAMILY Primary Care Provider Active Jes Cruz UX DEVELOPER-C Attending Provide r Active Team Status: Active Member Role Status Dates Jes Cruz UX DEVELOPER-C Primary Care Prov ider Active Team Status: Inactive Member Role Status Dates Jes Cruz , UX DEVELOPER-C Primary Care Provider, Attending Provider Active Start: November 01, 2023 End: November 01, 2023 Team Status: Active Member Role Status Dates Jes worrell , UX DEVELOPER-C Primary Care Provider Active Start: September 10, 024 Ronaldo Ty , DO Attending Provider Active Sta rt: September 11, 2023 Team Status: Active Member Role Status Dates Jes worrell , UX DEVELOPER-C Primary Care Provider Active Start: October 11, 024 Ronaldo Ty , DO Attending Provider Active Sta rt: October 12, 2023 Team Status: Inactive Member Role Status Dates Jes Cruz , UX DEVELOPER-C Primary Care Provider, Attending Provider Active Start: [...] CREATED AUTHOR AUTHOR'S ORGANIZ ATION 07/29/2022 [facility] DATE CREATED AUTHOR AUTHOR'S ORGANIZ ATION 08/16/2022 [facility] DATE CREATED AUTHOR AUTHOR'S ORGANIZ ATION 09/19/2023 [facility] DATE CREATED AUTHOR AUTHOR'S ORGANIZ ATION 10/21/2023 [facility] DATE CREATED AUTHOR AUTHOR'S ORGANIZ ATION 03/29/2024 [facility] DATE CREATED AUTHOR AUTHOR'S ORGANIZ ATION 04/15/2024 [facility] DATE CREATED AUTHOR AUTHOR'S ORGANIZ ATION 04/23/2024 [facility] REASON FOR VISIT (unrecogniz ed section and [...] BE BASED ON THE PRIMARY CLINICAL RECORDS. [facility]. provides no warranty or guarantee of the accuracy or completeness of information in this document.
--- NOTE | 2024-04-30 14:06 | CT_ITS ---
The [address] [address] Patient Name: MEGHANA KEY MRN: [id number] date: 1970 Sex: F Assigned Patient Location: ER Current Patient Location: Accession/Order Number: [id number] Exam Date: 04/30/2024 14:30 Report Date: 04/30/2024 15:20 At the request of: ANYA LAIRD Procedure: CT abdomen pelvis wo con EXAM: CT abdomen pelvis wo con HISTORY: flank pain hx of stones left flank pain COMPARISON: CT abdomen pelvis 09/26/[address] lumbar spine including paraspinal tissues 01/05/2024. TECHNIQUE: CT abdomen pelvis without contrast. Axial scans with reformatted coronal sagittal images. Individualized radiation dose reduction used for this exam. FINDINGS: Lower chest: Lung bases clear, no acute process. ABDOMEN: Tiny low-attenuation lesion dome of the liver left lobe unchanged. Elongated right lobe. No new focal abnormality. Prominent fluid-filled gallbladder without calcified stone. Mildly prominent extrahepatic biliary tract without definite calcification unchanged. Distal common duct approximately 7.6 mm. No pancreatic duct dilatation. Adrenal hands demonstrates small low-attenuation nodules felt to be adenomas unchanged. Pancreas spleen unremarkable. No ascites or free fluid. No adenopathy. Normal size aorta. No ureteral calculus or hydronephrosis. Several punctate nonobstructing right renal calculi unchanged. No bowel dilatation ileus or obstruction. Moderate fluid in particular matter in the stomach suggesting recent meal. Scattered colonic diverticula without diverticulitis. Moderate to large amount of gas stool throughout the colon cecum lies in the pelvis with normal-appearing appendix projecting posteriorly. Pelvis: No mass or adenopathy or free fluid. Small amount of fluid in the bladder mildly prominent wall likely artifact from under distention. Graph musculoskeletal: Previous L5 surgery, pedicle screws removed. Stranding in the subcutaneous tissues likely related to surgery. CT/CT abdomen pelvis wo con IMPRESSION: 1. No acute appearing abnormality lower chest abdomen pelvis. Several punctate right renal calculi change without ureteral calculus or hydronephrosis. No acute left flank abnormality. 2. Mild prominent extrahepatic biliary tract nonspecific and unchanged. No definite abnormality in the duct or pancreas. 3. Interval lumbar surgery, pedicle screws removed at L5. No acute appearing bony abnormality. Electronically authenticated by: SVETLANA HUGGINS Date: 04/30/2024 15:20
[2024-04-30 14:13] VITALS: BP 105/57; PULSE 83; TEMP 36.6; O2SAT 99; BMI 23.3
[2024-04-30] MEDS: KETOROLAC TROMETHAMINE 30 MG/ML VIAL IM (15:35)
[2024-04-30 15:53] LABS: Bilirubin Urine NEGATIVE (NEGATIVE); Blood Urine LARGE (NEGATIVE); Clarity Urine CLEAR (CLEAR); Color Urine BROWN (YELLOW); Glucose Urine UA NEGATIVE (NEGATIVE); Ketones Urine NEGATIVE (NEGATIVE); Leukocyte Esterase Urine MODERATE (NEGATIVE); Nitrite Urine NEGATIVE (NEGATIVE); Protein Urine 30 mg/dL (NEG/TRACE); Urobilinogen Urine 0.2 EU/dL (0.2-1.0)
[2024-04-30 15:56] LABS: Urine Microscopic Indicated YES
[2024-04-30 16:02] LABS: Bacteria Urine LARGE #/HPF (NONE SEEN); WBC Urine >100 #/HPF (NONE SEEN)
[2024-04-30 16:03] LABS: Cast Seen? NONE SEEN #/LPF (NONE SEEN); Crystals Seen? None Seen #/HPF (None Seen); Mucus Urine MODERATE (NONE SEEN); Squamous Epithelial Cell Urine MANY #/LPF (NONE/RARE); Urine Culture Indicated YES
--- NOTE | 2024-04-30 18:21 | ED_ITS ---
HPI HPI - General Adult General Chief complaint: Urogenital-Female Stated complaint: POSIBLE KIDNEY STONE Time Seen by Provider: 04/30/24 14:06 Mode of arrival: walk-in History of Present Illness HPI narrative: The patient is coming to the ER with almost a week history of right sided back pain, she was concerned about kidney stone because she have history of kidney stone but she also mentioned that the pain radiated down her leg She mentioned also that she have no fall or trauma she recently almost 2 months ago had the screws for her previous surgery from the back removed The patient has been having frequency of urination and she is concerned about UTI She have no fever Related Data Home Medications ?Medication ?Instructions ?Recorded ?Confirmed isosorbide mononitrate 30 mg 30 mg PO DAILY 04/28/23 04/30/24 tablet,extended release 24 hr sertraline 100 mg tablet 150 mg PO DAILY 04/28/23 04/30/24 aripiprazole 10 mg tablet 10 mg PO DAILY 02/09/24 04/30/24 atorvastatin 40 mg tablet 40 mg PO DAILY 02/09/24 04/30/24 buspirone 10 mg tablet 10 mg PO TID 02/09/24 04/30/24 gabapentin 600 mg tablet 600 mg PO BID 02/09/24 04/30/24 ibuprofen 800 mg tablet 800 mg PO Q8H 02/09/24 04/30/24 melatonin 10 mg tablet 10 mg PO DAILY 02/09/24 04/30/24 meloxicam 15 mg tablet 15 mg PO DAILY 02/09/24 04/30/24 mirtazapine 7.5 mg tablet 7.5 mg PO DAILY 02/09/24 04/30/24 naloxone 4 mg/actuation nasal spray 4 mg intranasal Q3M PRN opioid 02/09/24 04/30/24 overdose nicotine (polacrilex) 4 mg gum 4 mg buccal Q8H 02/09/24 04/30/24 nicotine 21 mg/24 hr daily 1 patch transdermal Q24H 02/09/24 04/30/24 transdermal patch omeprazole 20 mg capsule,delayed 20 mg PO DAILY 02/09/24 04/30/24 release prazosin 2 mg capsule 2 mg PO QPM 02/09/24 04/30/24 propranolol 10 mg tablet 10 mg PO Q12H 02/09/24 04/30/24 Previous Rx's ?Medication ?Instructions ?Recorded aspirin 81 mg tablet,delayed 81 mg PO BID 30 days #60 tabs 05/03/23 release (Adult Low Dose Aspirin) cholecalciferol (vitamin D3) 125 125 mcg PO DAILY 90 days #90 caps 05/03/23 mcg (5,000 unit) capsule ondansetron 4 mg disintegrating 4 mg PO Q8H PRN nausea and 05/03/23 tablet vomiting 5 days #15 tabs cephalexin 500 mg capsule 500 mg PO BID 7 days #14 caps 02/17/24 cephalexin 500 mg capsule 500 mg PO Q8H 7 days #21 caps 04/30/24 diclofenac sodium 75 mg 75 mg PO BID PRN pain #14 tabs 04/30/24 tablet,delayed release Allergies Allergy/AdvReac Type Severity Reaction Status Date / Time codeine Allergy Hives Verified 04/30/24 14:11 Opioid HPI Opioid Management Most Recent Opioid Data: Last Pain Scale 7 04/30/24 15:35 04/30/24 Last MAR Pain Assessment 04/30/24 15:35 Ur Phencyclidine Scrn Negative (NEGATIVE) 09/10/23 21:35 06/10/26 Review of Systems ROS Status of ROS 10 or more systems reviewed and unremark able except as noted in history and below [facility] Medical History (Updated 04/30/24 @ 16:15 by Gisella Foy MD) History of blood transfusion (2020) ?Z92.89 - Personal history of other medical treatment (ICD-10) Stress incontinence ?N39.3 - Stress incontinence (female) (male) (ICD-10) Constipation ?K59.00 - Constipation, unspecified (ICD-10) Arthritis ?M19.90 - Unspecified osteoarthritis, unspecified site (ICD-10) Back pain ?M54.9 - Dorsalgia, unspecified (ICD-10) Anemia ?D64.9 - Anemia, unspecified (ICD-10) Depression ?F32.A - Depression, unspecified (ICD-10) Anxiety ?F41.9 - Anxiety disorder, unspecified (ICD-10) COVID-19 ?U07.1 - COVID-19 (ICD-10) Electronic cigarette use ?Z78.9 - Other specified health status (ICD-10) Chronic obstructive pulmonary disease ?J44.9 - Chronic obstructive pulmonary disease, unspecified (ICD-10) GERD (gastroesophageal reflux disease) ?K21.9 - Gastro-esophageal reflux disease without esophagitis (ICD-10) Dyspnea on exertion ?R06.09 - Other forms of dyspnea (ICD-10) Irregular heart beat ?I49.9 - Cardiac arrhythmia, unspecified (ICD-10) Coronary artery disease ?I25.10 - Atherosclerotic heart disease of [place] coronary artery without angina pectoris (ICD-10) Hypertension ?I10 - Essential (primary) hypertension (ICD-10) Hallux rigidus ?M20.20 - Hallux rigidus, unspecified foot (ICD-10) Hallux valgus ?M20.10 - Hallux valgus (acquired), unspecified foot (ICD-10) Palpitation ?R00.2 - Palpitations (ICD-10) Costochondritis ?M94.0 - Chondrocostal junction syndrome [[place]] (ICD-10) Coronary vasospasm ?I20.1 - Angina pectoris with documented spasm (ICD-10) Spontaneous pneumothorax (03/2021) ?J93.83 - Other pneumothorax (ICD-10) Admission for pleural drainage tube placement ?Z46.82 - Encounter for fitting and adjustment of non-vascular catheter (ICD- 10) Surgical History (Updated 11/12/23 @ 08:54 by Harleen Holden NP) H/O foot surgery (05/03/23) ?Z98.890 - Other specified postprocedural states (ICD-10) History of cardiac catheterization ?Z98.890 - Other specified postprocedural states (ICD-10) History of foot surgery ?Z98.890 - Other specified postprocedural states (ICD-10) History of spinal surgery ?Z98.890 - Other specified postprocedural states (ICD-10) History of hysterectomy ?Z90.710 - Acquired absence of both cervix and uterus (ICD-10) Family History (Updated 03/05/23 @ 13:50 by Harleen Holden NP) Other Family history of DVT Family history of hypertension Family history of liver cancer Family history of myocardial infarction Family history of stroke Social History (Updated 02/17/24 @ 09:10 by Yazmin Rodriguez) Within the past year, how often did you have a drink containing alcohol: never Score interpretation: A score less than 3 is consistent with normal alcohol consumption. 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 General: Well-appearing and in no apparent distress. Skin: Warm, dry, no pallor noted. No rash. Head: Normocephalic, atraumatic. Neck: Supple, non-tender. Eye: Pupils are equal, round and EOMI. No scleral icterus. Ears, Nose, Mouth, and Throat: TM are clear, no nasal mucosal hypertrophy. Oral mucosa is moist, no posterior oropharynx erythema, uvula is mid-line Cardiovascular: Regular Rate and Rhythm without murmur, gallop or rub. Respiratory: No accessory muscle use or respiratory distress. Lungs are clear to auscultation, no wheezing, rales or rhonchi Chest Wall: no tenderness Back: No midline thoracic or lumbar vertebral tenderness. Right paraspinal muscle tenderness. Right CVA tenderness Musculoskeletal: normal ROM, no calf or popliteal tenderness, no lower extremity edema/swelling GI: Abdomen is soft, non-distended. Normal bowel sounds. No masses appreciated. No tenderness to palpation. No rebound, guarding, or rigidity noted. Neurological: A&O x4. No cranial nerve dysfunction observed. No truncal ataxia. Moves all extremities. Sensation intact. Psychiatric: Cooperative and interactive. Normal mood and affect. Constitutional Vital Signs, click to edit/add: Last Vital Signs Temp 98 F 04/30/24 14:13 Pulse 83 04/30/24 14:13 Resp 18 04/30/24 14:13 BP 105/57 04/30/24 14:13 Pulse Ox 99 04/30/24 14:13 O2 Del Method Room Air 04/30/24 14:13 Course Vital Signs Vital signs: Vital Signs Temperature 98 F 04/30/24 14:13 Pulse Rate 83 04/30/24 14:13 Respiratory Rate 18 04/30/24 14:13 Blood Pressure 105/57 04/30/24 14:13 Pulse Oximetry 99 04/30/24 14:13 Oxygen Delivery Method Room Air 04/30/24 14:13 Temperature 98 F 04/30/24 14:13 Pulse Rate 83 04/30/24 14:13 Respiratory Rate 18 04/30/24 14:13 Blood Pressure 105/57 04/30/24 14:13 Pulse Oximetry 99 04/30/24 14:13 Oxygen Delivery Method Room Air 04/30/24 14:13 Medical Decision Making MDM Narrative Medical decision making narrative: The patient CT of the abdomen pelvis showed no obstructing kidney stone The patient urinalysis positive for UTI Patient was started on Keflex with Voltaren for pain control The patient is to follow up with primary care physician in next 2-3 days or to return to the emergency department should any of the signs or symptoms worsen or new symptoms develop. The patient agrees with the following Diagnosis and Treatment plan and the patient will be discharged home. Lab Data Labs: Lab Results 04/30/24 Range/Units 15:00 Urine Color Brown A (YELLOW) Urine Clarity Clear (CLEAR) Urine pH 6.0 (5.0-9.0) Ur Specific [place] 1.020 (1.005-1.025) Urine Protein 30 A (NEG/TRACE) mg/dL Urine Glucose (UA) Negative (NEGATIVE) mg/dL Urine Ketones Negative (NEGATIVE) mg/dL Urine Occult Blood Large A (NEGATIVE) Urine Nitrite Negative (NEGATIVE) Urine Bilirubin Negative (NEGATIVE) Urine Urobilinogen 0.2 (0.2-1.0) EU/dL Ur Leukocyte Esterase Moderate A (NEGATIVE) Urine RBC 5-10 A (0-2) #/HPF Urine WBC >100 A (NONE SEEN) #/HPF Ur Squamous Epith Cells Many A (NONE/RARE) #/LPF Urine Crystals None seen (None Seen) #/HPF Urine Bacteria Large A (NONE SEEN) #/HPF Urine Casts None seen (NONE SEEN) #/LPF Urine Mucus Moderate A (NONE SEEN) Ur Culture Indicated? Yes Discharge Plan Discharge Chief Complaint: Urogenital-Female Clinical Impression: UTI (urinary tract infection), Back pain Patient Disposition: Home, Self-Care Time of Disposition Decision: 16:15 Condition: Good Prescriptions / Home Meds: New cephalexin 500 mg capsule 500 mg PO Q8H 7 Days Qty: 21 0RF diclofenac sodium 75 mg tablet,delayed release (DR/EC) 75 mg PO BID PRN (Reason: pain) Qty: 14 0RF No Action isosorbide mononitrate 30 mg tablet extended release 24 hr 30 mg PO DAILY sertraline 100 mg tablet 150 mg PO DAILY aspirin [Adult Low Dose Aspirin] 81 mg tablet,delayed release (DR/EC) 81 mg PO BID 30 Days Qty: 60 0RF ondansetron 4 mg tablet,disintegrating 4 mg PO Q8H PRN (Reason: nausea and vomiting) 5 Days Qty: 15 0RF cholecalciferol (vitamin D3) 125 mcg (5,000 unit) capsule 125 mcg PO DAILY 90 Days Qty: 90 0RF aripiprazole 10 mg tablet 10 mg PO DAILY atorvastatin 40 mg tablet 40 mg PO DAILY buspirone 10 mg tablet 10 mg PO TID gabapentin 600 mg tablet 600 mg PO BID ibuprofen 800 mg tablet 800 mg PO Q8H melatonin 10 mg tablet 10 mg PO DAILY meloxicam 15 mg tablet 15 mg PO DAILY mirtazapine 7.5 mg tablet 7.5 mg PO DAILY naloxone 4 mg/actuation spray,non-aerosol 4 mg INTRANASAL Q3M PRN (Reason: opioid overdose) nicotine (polacrilex) 4 mg gum 4 mg buccal Q8H nicotine 21 mg/24 hr patch 24 hour 1 patch transdermal Q24H omeprazole 20 mg capsule,delayed release(DR/EC) 20 mg PO DAILY prazosin 2 mg capsule 2 mg PO QPM propranolol 10 mg tablet 10 mg PO Q12H cephalexin 500 mg capsule 500 mg PO BID 7 Days Qty: 14 0RF Print Language: Zambian Instructions: Back Pain (ED), Urinary Tract Infection in Older Adults (ED) Referrals: Jes Cruz RN PAIN MANAGEMENT [Primary Care Provider] - 1 week Discharge Date/Time: 04/30/24 16:38
== END 2024-04-30 16:38 | disposition home or self-care (01) ==
PROVIDERS: Emergency Provider Emergency Medicine; PCP Nurse Practitioner Family
DX: N39.0 Urinary tract infection, site not specified (principal); M54.9 Dorsalgia, unspecified; F17.210 Nicotine dependence, cigarettes, uncomplicated; Z87.442 Personal history of urinary calculi; Z90.710 Acquired absence of both cervix and uterus
CPT/HCPCS: 74176; 81001; 87086; 87150; 87186; 96372; 99285; J1885

== ENCOUNTER 2024-05-04 17:54 | Emergency (ER) | payer OTHER, SELFPAY ==
[2024-05-04 17:57] VITALS: BP 166/89; PULSE 90; TEMP 37; O2SAT 100; BMI 23.3
--- OUTSIDE RECORDS SUMMARY | 2024-05-04 17:59 | XMS_ITS | CCD ---
Author Organization [facility] Care Team Providers Care Brass Molder Name Role Phone None, No PCP Unavailable [...] Eruption of skin present [facility] (20 sources) Codeine; Translations: [codeine] Drug Allergy 09-03-2012 hives, Eruption of skin present [facility] Medications Current Medications Medication Drug Class(es) [...] Daily, # 30 tab(s), Refills(s) 3, Pharmacy: [facility] 1155, 164, cm, 03/22/23 13:24:00 EST, [...] # 30 tab(s), Refills(s) 3, Pharmacy: [facility] 1155, 164, cm, 03/22/23 13:24:00 [...] tab(s), Refills(s) 3, Pharmacy: [facility] 1155, 165, cm, 01/17/20 11:18:00 EDT, [...] Drug Class(es) Dates Sig (Normalized) Sig (Original) [id number] 200 actuat albuterol 0.09 mg/actuat metered dose [...] # 2 tab(s), Refills(s) 0, Pharmacy: [facility] 1155, 164, cm, 08/10/23 9:37:00 [...] sources) Coronary atherosclerosis; Translations: [Coronary atherosclerosis of [place] coronary artery] 04-03-2021 Chronic Disorders of lipid [...] 06-09-2023 Episodic Other aftercare (1 source) 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 [facility] 36 Patient called write r asking if Chloe could prescribe the percocet to have enough until she see's Chloe next week. She states that she is not in pain until she is done with work. She also asked if a pain management referral could be placed for someone closer to home for her. Please advise. [facility] Orders Onlyon 04-20-2024 Orders Only [id number] Booker Craig 1970 F Date Provider Department Center 04/20/2024 [facility] Second Fl Family History Problem Relation Age of Onset Coronary artery disease Mother Hypertension Mother Other Father Hypertension Father Other Daughter Comments: 05/2023 drug overdose Family Status - Relation Status Age at Mother Father Daughter [facility] 36on 04-13-2024 36 Patient is requestin g pain medication d/t the continuous pain she haves right side of back. She is scheduled to see pain medicine on 04/19/24. She can be reached at [phone]. Thank you This phone message was created by the Ambulatory float staff. If you need director sales support follow up regarding this patient, please make your appropriate clinic staff member aware. Thank you. [facility] Orders Onlyon 04-13-2024 Orders Only [id number] RodneyBooker real kash Butts 1970 F Date Provider Department Center 04/13/2024 [facility] Second Fl Family History Problem Relation Age of Onset Coronary artery disease Mother Hypertension Mother Other Father Hypertension Father Other Daughter Comments: 05/2023 drug overdose Family Status - Relation Status Age at Mother Father Daughter [facility] Patient Letter FTon 2024 Patient Letter [facility] Patient Letter [facility] April 10, 2024 ISELA CRAIG [address] [place] [id number] : 1970 Dear Isela, You missed your [...] any future cancellations. Sincerely, [facility] [address], [place] [address] [facility] Orders Onlyon 04-03-2024 Orders Only [id number] RafaBooker Butts 1970 F Date Provider Department Center 04/03/2024 [facility] Second Fl Family History Problem Relation Age of Onset Coronary artery disease Mother Hypertension Mother Other Father Hypertension Father Other Daughter Comments: 05/2023 drug overdose Family Status - Relation Status Age at Mother Father Daughter [facility] 36on 03-27-2024 36 Patient called back. She asked that her letter be mailed to her. 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 Notified patient that after today we would not be here till for if she has any issues. Patient understood. Nothing further. Normal [facility] 36 Lvm for patient to call back Normal [facility] Complete Blood Count Auto Di ffon 03-27-2024 Basophils (Bld) [#/Vol] 0.1 10*3/uL Normal 0.0-0.2 [facility] Comment on above: Order Comment: Reaso n for Exam Primary hypertension Result Comment: PERF ORMED BY: [facility] [address] [id number] PATHOLOGIST SPECIAL DEPUTY SHERIFF ОЛЬГА HULL M.D. Performed By: #### C BC, CUU, TSH3, URMACRERAT, T3F, LIPID, T4F, [id number], ADDONUAPLUS, CMP ####[address] Basophils/100 WBC (Bld) 1.3 % Normal . [facility] Comment on above: Order Comment: Reaso n for Exam Primary hypertension Performed By: #### C BC, CUU, TSH3, URMACRERAT, T3F, LIPID, T4F, [id number], ADDONUAPLUS, CMP ####[place] [id number] [place] Eosinophils (Bld) [#/Vol] 0.1 10*3/uL Normal 0.0-0.45 [facility] Comment on above: Order Comment: Reaso n for Exam Primary hypertension Performed By: #### C BC, CUU, TSH3, URMACRERAT, T3F, LIPID, T4F, [id number], ADDONUAPLUS, CMP ####[place] [id number] [place] Eosinophils/100 WBC (Bld) 1.0 % Normal . [facility] Comment on above: Order Comment: Reaso n for Exam Primary hypertension Performed By: #### C BC, CUU, TSH3, URMACRERAT, T3F, LIPID, T4F, [id number], ADDONUAPLUS, CMP ####[address] Erythrocyte distribution width (RBC) [Ratio] 13.3 % Normal 11.9-15.3 [facility] Comment on above: Order Comment: Reaso n for Exam Primary hypertension Performed By: #### C BC, CUU, TSH3, URMACRERAT, T3F, LIPID, T4F, [id number], ADDONUAPLUS, CMP ####[address] Hematocrit (Bld) [Volume fraction] 38.0 % Normal 34.0-46.4 [facility] Comment on above: Order Comment: Reaso n for Exam Primary hypertension Performed By: #### C BC, CUU, TSH3, URMACRERAT, T3F, LIPID, T4F, [id number], ADDONUAPLUS, CMP ####[address] Hemoglobin (Bld) [Mass/Vol] 12.6 g/dL Normal 11.8-15.4 [facility] Comment on above: Order Comment: Reaso n for Exam Primary hypertension Performed By: #### C BC, CUU, TSH3, URMACRERAT, T3F, LIPID, T4F, [id number], ADDONUAPLUS, CMP ####[address] Lymphocytes (Bld) [#/Vol] 1.7 10*3/uL Normal 1.00-4.8 [facility] Comment on above: Order Comment: Reaso n for Exam Primary hypertension Performed By: #### C BC, CUU, TSH3, URMACRERAT, T3F, LIPID, T4F, [id number], ADDONUAPLUS, CMP ####[address] Lymphocytes/100 WBC (Bld) 26.1 % Normal . [facility] Comment on above: Order Comment: Reaso n for Exam Primary hypertension Performed By: #### C BC, CUU, TSH3, URMACRERAT, T3F, LIPID, T4F, [id number], ADDONUAPLUS, CMP ####[address] MCH (RBC) [Entitic mass] 30.8 pg Normal 24.7-34.3 [facility] Comment on above: Order Comment: Reaso n for Exam Primary hypertension Performed By: #### C BC, CUU, TSH3, URMACRERAT, T3F, LIPID, T4F, [id number], ADDONUAPLUS, CMP ####[address] MCV (RBC) [Entitic vol] 93.0 fL Normal 80-100 [facility] Comment on above: Order Comment: Reaso n for Exam Primary hypertension Performed By: #### C BC, CUU, TSH3, URMACRERAT, T3F, LIPID, T4F, [id number], ADDONUAPLUS, CMP ####[address] Mean Corpuscular HGB Conc 33.1 g/dL Normal 32.0-35.0 [facility] Comment on above: Order Comment: Reaso n for Exam Primary hypertension Performed By: #### C BC, CUU, TSH3, URMACRERAT, T3F, LIPID, T4F, [id number], ADDONUAPLUS, CMP ####[address] Monocytes (Bld) [#/Vol] 0.7 10*3/uL Normal 0.0-0.8 [facility] Comment on above: Order Comment: Reaso n for Exam Primary hypertension Performed By: #### C BC, CUU, TSH3, URMACRERAT, T3F, LIPID, T4F, [id number], ADDONUAPLUS, CMP ####[address] Monocytes/100 WBC (Bld) 10.1 % Normal . [facility] Comment on above: Order Comment: Reaso n for Exam Primary hypertension Performed By: #### C BC, CUU, TSH3, URMACRERAT, T3F, LIPID, T4F, [id number], ADDONUAPLUS, CMP ####[address] Neutrophils (Bld) [#/Vol] 4.1 10*3/uL Normal 1.8-7.7 [facility] Comment on above: Order Comment: Reaso n for Exam Primary hypertension Performed By: #### C BC, CUU, TSH3, URMACRERAT, T3F, LIPID, T4F, [id number], ADDONUAPLUS, CMP ####[address] Neutrophils/100 WBC (Bld) 61.5 % Normal . [facility] Comment on above: Order Comment: Reaso n for Exam Primary hypertension Performed By: #### C BC, CUU, TSH3, URMACRERAT, T3F, LIPID, T4F, [id number], ADDONUAPLUS, CMP ####[address] NRBC% 0.1 /100{WBC} Normal 0-0.5 [facility] Comment on above: Order Comment: Reaso n for Exam Primary hypertension Performed By: #### C BC, CUU, TSH3, URMACRERAT, T3F, LIPID, T4F, [id number], ADDONUAPLUS, CMP ####[place] [id number] [facility] Platelet mean volume (Bld) [Entitic vol] 8.4 fL Normal 6.3-10.7 [facility] Comment on above: Order Comment: Reaso n for Exam Primary hypertension Performed By: #### C BC, CUU, TSH3, URMACRERAT, T3F, LIPID, T4F, [id number], ADDONUAPLUS, CMP ####[address] [place] [address] [facility] Platelets (Bld) [#/Vol] 460 10*3/uL High 150-450 [facility] Comment on above: Order Comment: Reaso n for Exam Primary hypertension Performed By: #### C BC, CUU, TSH3, URMACRERAT, T3F, LIPID, T4F, [id number], ADDONUAPLUS, CMP ####[place] [id number] [facility] RBC (Bld) [#/Vol] 4.09 10*6/uL Normal 3.60-5.00 [facility] Comment on above: Order Comment: Reaso n for Exam Primary hypertension Performed By: #### C BC, CUU, TSH3, URMACRERAT, T3F, LIPID, T4F, [id number], ADDONUAPLUS, CMP ####[place] [id number] [facility] WBC (Bld) [#/Vol] 6.6 10*3/uL Normal 3.8-11.6 [facility] Comment on above: Order Comment: Reaso n for Exam Primary hypertension Performed By: #### C BC, CUU, TSH3, URMACRERAT, T3F, LIPID, T4F, [id number], ADDONUAPLUS, CMP ####[address] [address] [facility] Comprehensive Metabolic Pane hema 03-27-2024 Albumin [Mass/Vol] 4.2 g/dL Normal 3.5-5.7 [facility] Comment on above: Order Comment: Reaso n for Exam Primary hypertension Reason for Exam Primary hypertension;Hypertriglyceridemia Reason for Exam Vitamin D deficiency Performed By: #### C BC, CUU, TSH3, URMACRERAT, T3F, LIPID, T4F, [id number], ADDONUAPLUS, CMP ####[address] [address] [facility] Albumin/Globulin [Mass ratio] 1.6 {ratio} Normal [facility] Comment on above: Order Comment: Reaso n for Exam Primary hypertension Reason for Exam Primary hypertension;Hypertriglyceridemia Reason for Exam Vitamin D deficiency Performed By: #### C BC, CUU, TSH3, URMACRERAT, T3F, LIPID, T4F, [id number], ADDONUAPLUS, CMP ####[facility] [id number] [place] [address] [facility] ALP [Catalytic activity/Vol] 109 U/L High 34-104 [facility] Comment on above: Order Comment: Reaso n for Exam Primary hypertension Reason for Exam Primary hypertension;Hypertriglyceridemia Reason for Exam Vitamin D deficiency Performed By: #### C BC, CUU, TSH3, URMACRERAT, T3F, LIPID, T4F, [id number], ADDONUAPLUS, CMP ####[place] [address] [place] [id number] [facility] ALT [Catalytic activity/Vol] 28 U/L Normal 7-52 [facility] Comment on above: Order Comment: Reaso n for Exam Primary hypertension Reason for Exam Primary hypertension;Hypertriglyceridemia Reason for Exam Vitamin D deficiency Performed By: #### C BC, CUU, TSH3, URMACRERAT, T3F, LIPID, T4F, [id number], ADDONUAPLUS, CMP ####[place] [address] [place] [id number] [facility] Anion gap [Moles/Vol] 11.9 mmol/L Normal 6.0-15.0 [facility] Comment on above: Order Comment: Reaso n for Exam Primary hypertension Reason for Exam Primary hypertension;Hypertriglyceridemia Reason for Exam Vitamin D deficiency Performed By: #### C BC, CUU, TSH3, URMACRERAT, T3F, LIPID, T4F, [id number], ADDONUAPLUS, CMP ####[place] [address] [place] [address] [facility] AST [Catalytic activity/Vol] 24 U/L Normal 13-39 [facility] Comment on above: Order Comment: Reaso n for Exam Primary hypertension Reason for Exam Primary hypertension;Hypertriglyceridemia Reason for Exam Vitamin D deficiency Performed By: #### C BC, CUU, TSH3, URMACRERAT, T3F, LIPID, T4F, [id number], ADDONUAPLUS, CMP ####[place] [address] [place] [address] [facility] Bilirubin [Mass/Vol] 0.4 mg/dL Normal 0.3-1.0 [facility] Comment on above: Order Comment: Reaso n for Exam Primary hypertension Reason for Exam Primary hypertension;Hypertriglyceridemia Reason for Exam Vitamin D deficiency Performed By: #### C BC, CUU, TSH3, URMACRERAT, T3F, LIPID, T4F, [id number], ADDONUAPLUS, CMP ####[place] [address] [place] [address] [facility] Calcium [Mass/Vol] 9.6 mg/dL Normal 8.6-10.3 [facility] Comment on above: Order Comment: Reaso n for Exam Primary hypertension Reason for Exam Primary hypertension;Hypertriglyceridemia Reason for Exam Vitamin D deficiency Performed By: #### C BC, CUU, TSH3, URMACRERAT, T3F, LIPID, T4F, [id number], ADDONUAPLUS, CMP ####[place] [address] [place] [address] [facility] Chloride [Moles/Vol] 103 mmol/L Normal 98-107 [facility] Comment on above: Order Comment: Reaso n for Exam Primary hypertension Reason for Exam Primary hypertension;Hypertriglyceridemia Reason for Exam Vitamin D deficiency Performed By: #### C BC, CUU, TSH3, URMACRERAT, T3F, LIPID, T4F, [id number], ADDONUAPLUS, CMP ####[address] [address] [facility] CO2 [Moles/Vol] 29.8 mmol/L Normal 21.0-31.0 [facility] Comment on above: Order Comment: Reaso n for Exam Primary hypertension Reason for Exam Primary hypertension;Hypertriglyceridemia Reason for Exam Vitamin D deficiency Performed By: #### C BC, CUU, TSH3, URMACRERAT, T3F, LIPID, T4F, [id number], ADDONUAPLUS, CMP ####[address] [address] [facility] Creatinine [Mass/Vol] 0.79 mg/dL Normal 0.60-1.20 [facility] Comment on above: Order Comment: Reaso n for Exam Primary hypertension Reason for Exam Primary hypertension;Hypertriglyceridemia Reason for Exam Vitamin D deficiency Performed By: #### C BC, CUU, TSH3, URMACRERAT, T3F, LIPID, T4F, [id number], ADDONUAPLUS, CMP ####[place] [address] [place] [address] [facility] GFR/1.73 sq M.predicted MDRD (S/P/Bld) [Vol rate/Area] mL/min/{1.73_m2} Normal [facility] Comment on above: Order Comment: Reaso n for Exam Primary hypertension Reason for Exam Primary hypertension;Hypertriglyceridemia Reason for Exam Vitamin D deficiency Performed By: #### C BC, CUU, TSH3, URMACRERAT, T3F, LIPID, T4F, [id number], ADDONUAPLUS, CMP ####[place] [address] [place] [address] [facility] Globulin (S) [Mass/Vol] 2.7 g/dL Normal [facility] Comment on above: Order Comment: Reaso n for Exam Primary hypertension Reason for Exam Primary hypertension;Hypertriglyceridemia Reason for Exam Vitamin D deficiency Performed By: #### C BC, CUU, TSH3, URMACRERAT, T3F, LIPID, T4F, [id number], ADDONUAPLUS, CMP ####[place] [address] [place] [address] [facility] Glucose [Mass/Vol] 98 mg/dL Normal 70-100 [facility] Comment on above: Order Comment: Reaso n for Exam Primary hypertension Reason for Exam Primary hypertension;Hypertriglyceridemia Reason for Exam Vitamin D deficiency Result Comment: [place] Glucose Reference Range is dependent on time and content of last meal. Glucose of more than 200 mg/dL in a nonstressed, ambulatory subject supports the diagnosis of Diabetes Mellitus. ADA recommended reference range Performed By: #### C BC, CUU, TSH3, URMACRERAT, T3F, LIPID, T4F, [id number], ADDONUAPLUS, CMP ####[place] [address] [place] [address] [facility] Potassium [Moles/Vol] 4.7 mmol/L Normal 3.5-5.1 [facility] Comment on above: Order Comment: Reaso n for Exam Primary hypertension Reason for Exam Primary hypertension;Hypertriglyceridemia Reason for Exam Vitamin D deficiency Performed By: #### C BC, CUU, TSH3, URMACRERAT, T3F, LIPID, T4F, [id number], ADDONUAPLUS, CMP ####[place] [address] [place] [address] [facility] Protein [Mass/Vol] 6.9 g/dL Normal 6.4-8.9 [facility] Comment on above: Order Comment: Reaso n for Exam Primary hypertension Reason for Exam Primary hypertension;Hypertriglyceridemia Reason for Exam Vitamin D deficiency Performed By: #### C BC, CUU, TSH3, URMACRERAT, T3F, LIPID, T4F, [id number], ADDONUAPLUS, CMP ####[place] [address] [place] [address] [facility] Sodium [Moles/Vol] 140 mmol/L Normal 136-145 [facility] Comment on above: Order Comment: Reaso n for Exam Primary hypertension Reason for Exam Primary hypertension;Hypertriglyceridemia Reason for Exam Vitamin D deficiency Performed By: #### C BC, CUU, TSH3, URMACRERAT, T3F, LIPID, T4F, [id number], ADDONUAPLUS, CMP ####[place] [address] [place] [address] [facility] Urea nitrogen [Mass/Vol] 12 mg/dL Normal 7-25 [facility] Comment on above: Order Comment: Reaso n for Exam Primary hypertension Reason for Exam Primary hypertension;Hypertriglyceridemia Reason for Exam Vitamin D deficiency Performed By: #### C BC, CUU, TSH3, URMACRERAT, T3F, LIPID, T4F, [id number], ADDONUAPLUS, CMP ####[facility] [place] [address] [facility] Dipstick and Microscopicon 1 05-28-2023 Appearance (U) Clear Normal Clear [facility] Comment on above: Order Comment: Reaso n for Exam Urinary frequency Name Collection Type:: Voided Performed By: #### C BC, CUU, TSH3, URMACRERAT, T3F, LIPID, T4F, [id number], ADDONUAPLUS, CMP ####[address] [address] [facility] Bacteria,Urine Rare Normal None Seen [facility] Comment on above: Order Comment: Reaso n for Exam Urinary frequency Name Collection Type:: Voided Performed By: #### C BC, CUU, TSH3, URMACRERAT, T3F, LIPID, T4F, [id number], ADDONUAPLUS, CMP ####[address] [address] [facility] Bilirubin,Urine Negative Normal Negative [facility] Comment on above: Order Comment: Reaso n for Exam Urinary frequency Name Collection Type:: Voided Performed By: #### C BC, CUU, TSH3, URMACRERAT, T3F, LIPID, T4F, [id number], ADDONUAPLUS, CMP ####[address] [address] [facility] Color (U) Yellow Normal Yellow [facility] Comment on above: Order Comment: Reaso n for Exam Urinary frequency Name Collection Type:: Voided Performed By: #### C BC, CUU, TSH3, URMACRERAT, T3F, LIPID, T4F, [id number], ADDONUAPLUS, CMP ####[address] [address] [facility] Glucose Ql (U) Normal Normal Normal [facility] Comment on above: Order Comment: Reaso n for Exam Urinary frequency Name Collection Type:: Voided Performed By: #### C BC, CUU, TSH3, URMACRERAT, T3F, LIPID, T4F, [id number], ADDONUAPLUS, CMP ####[address] [address] [facility] Hyaline Casts,Urine None Normal 0-8 [facility] Comment on above: Order Comment: Reaso n for Exam Urinary frequency Name Collection Type:: Voided Performed By: #### C BC, CUU, TSH3, URMACRERAT, T3F, LIPID, T4F, [id number], ADDONUAPLUS, CMP ####[place] [id number] [facility] Ketones Ql (U) Negative Normal Negative [facility] Comment on above: Order Comment: Reaso n for Exam Urinary frequency Name Collection Type:: Voided Performed By: #### C BC, CUU, TSH3, URMACRERAT, T3F, LIPID, T4F, [id number], ADDONUAPLUS, CMP ####[address] Leukocyte esterase Test strip Ql (U) 2+ High Negative [facility] Comment on above: Order Comment: Reaso n for Exam Urinary frequency Name Collection Type:: Voided Performed By: #### C BC, CUU, TSH3, URMACRERAT, T3F, LIPID, T4F, [id number], ADDONUAPLUS, CMP ####[address] Mucus,Urine 2+ Critically abnormal [facility] Comment on above: Order Comment: Reaso n for Exam Urinary frequency Name Collection Type:: Voided Result Comment: PERF ORMED BY: [facility] [address] [place] [address] PATHOLOGIST SPECIAL DEPUTY SHERIFF ОЛЬГА HULL M.D. Performed By: #### C BC, CUU, TSH3, URMACRERAT, T3F, LIPID, T4F, [id number], ADDONUAPLUS, CMP ####[place] [id number] [facility] Nitrite,Urine Negative Normal Negative [facility] Comment on above: Order Comment: Reaso n for Exam Urinary frequency Name Collection Type:: Voided Performed By: #### C BC, CUU, TSH3, URMACRERAT, T3F, LIPID, T4F, [id number], ADDONUAPLUS, CMP ####[place] [id number] [facility] Occult Blood,Urine Trace High Negative [facility] Comment on above: Order Comment: Reaso n for Exam Urinary frequency Name Collection Type:: Voided Result Comment: PERF ORMED BY: [facility] [place] [id number] PATHOLOGIST SPECIAL DEPUTY SHERIFF ОЛЬГА UHLL M.D. Performed By: #### C BC, CUU, TSH3, URMACRERAT, T3F, LIPID, T4F, [id number], ADDONUAPLUS, CMP ####[place] [id number] [facility] pH (U) 6.0 [pH] Normal 5.0-9.0 [facility] Comment on above: Order Comment: Reaso n for Exam Urinary frequency Name Collection Type:: Voided Performed By: #### C BC, CUU, TSH3, URMACRERAT, T3F, LIPID, T4F, [id number], ADDONUAPLUS, CMP ####[address] Protein,Urine Negative Normal Negative [facility] Comment on above: Order Comment: Reaso n for Exam Urinary frequency Name Collection Type:: Voided Performed By: #### C BC, CUU, TSH3, URMACRERAT, T3F, LIPID, T4F, [id number], ADDONUAPLUS, CMP ####[address] RBC,Urine 1 [HPF] Normal 0-4 [facility] Comment on above: Order Comment: Reaso n for Exam Urinary frequency Name Collection Type:: Voided Performed By: #### C BC, CUU, TSH3, URMACRERAT, T3F, LIPID, T4F, [id number], ADDONUAPLUS, CMP ####[place] [id number] [facility] Specificy [place],Urine 1.020 Normal 1.001-1.030 [facility] Comment on above: Order Comment: Reaso n for Exam Urinary frequency Name Collection Type:: Voided Performed By: #### C BC, CUU, TSH3, URMACRERAT, T3F, LIPID, T4F, [id number], ADDONUAPLUS, CMP ####[address] Squamous Epithelial Cell,Urine 3 [HPF] High 0-2 [facility] Comment on above: Order Comment: Reaso n for Exam Urinary frequency Name Collection Type:: Voided Performed By: #### C BC, CUU, TSH3, URMACRERAT, T3F, LIPID, T4F, [id number], ADDONUAPLUS, CMP ####[address] Urobilinogen,Urine Normal Normal Normal [facility] Comment on above: Order Comment: Reaso n for Exam Urinary frequency Name Collection Type:: Voided Performed By: #### C BC, CUU, TSH3, URMACRERAT, T3F, LIPID, T4F, [id number], ADDONUAPLUS, CMP ####[address] WBC,Urine 3 [HPF] Normal 0-4 [facility] Comment on above: Order Comment: Reaso n for Exam Urinary frequency Name Collection Type:: Voided Performed By: #### C BC, CUU, TSH3, URMACRERAT, T3F, LIPID, T4F, [id number], ADDONUAPLUS, CMP ####[place] [id number] [facility] Free T4 (Free Thyroxine)on 05-28-2023 Free T4 [Mass/Vol] 0.82 ng/dL Normal 0.61-1.12 [facility] Comment on above: Order Comment: Reaso n for Exam Primary hypertension Reason for Exam Primary hypertension;Hypertriglyceridemia Reason for Exam Vitamin D deficiency Performed By: #### C BC, CUU, TSH3, URMACRERAT, T3F, LIPID, T4F, [id number], ADDONUAPLUS, CMP ####[address] Letter (Out)on 03-27-2024 Letter (Out) [id number] Booker Craig 1970 F Date Provider Department Center 03/27/2024 [facility]G Second Fl Family History Problem Relation Age of Onset Coronary artery disease Mother Hypertension Mother Other Father Hypertension Father Other Daughter Comments: 05/2023 drug overdose Family Status - Relation Status Age at Mother Father Daughter Normal [facility] Lipid Panelon 03-27-2024 Cholesterol [Mass/Vol] 141 mg/dL Normal 140-200 [facility] Comment on above: Order Comment: Reaso n for Exam Primary hypertension Reason for Exam Primary hypertension;Hypertriglyceridemia Reason for Exam Vitamin D deficiency Result Comment: Chol less than 200 mg/dl low risk Chol 201-239 mg/dl borderline risk Chol 240 mg/dl and greater high risk Performed By: #### C BC, CUU, TSH3, URMACRERAT, T3F, LIPID, T4F, [id number], ADDONUAPLUS, CMP ####[address] Cholesterol in HDL [Mass/Vol] 36 mg/dL Normal 23-92 [facility] Comment on above: Order Comment: Reaso n for Exam Primary hypertension Reason for Exam Primary hypertension;Hypertriglyceridemia Reason for Exam Vitamin D deficiency Result Comment: HDL CHOL ATP-III CLASSIFICATION Cardiovascular Risk HDL > or equal to 60 mg/dL LOW HDL < 40 mg/dL HIGH Performed By: #### C BC, CUU, TSH3, URMACRERAT, T3F, LIPID, T4F, [id number], ADDONUAPLUS, CMP ####[address] [address] [facility] Cholesterol.total/Chol esterol in HDL [Mass ratio] 3.9 {ratio} Normal <5.0 [facility] Comment on above: Order Comment: Reaso n for Exam Primary hypertension Reason for Exam Primary hypertension;Hypertriglyceridemia Reason for Exam Vitamin D deficiency Performed By: #### C BC, CUU, TSH3, URMACRERAT, T3F, LIPID, T4F, [id number], ADDONUAPLUS, CMP ####[place] [address] [address] LDL Cholesterol,Calculated 78 mg/dL Normal 0-100 [facility] Comment on above: Order Comment: [...] BC, CUU, TSH3, URMACRERAT, T3F, LIPID, T4F, [id number], ADDONUAPLUS, CMP ####[facility] Triglyceride w/Reflex 136 mg/dL Normal 0-149 [facility] Comment on above: Order [...] BC, CUU, TSH3, URMACRERAT, T3F, LIPID, T4F, [id number], ADDONUAPLUS, CMP ####[place] [address] [place] [id number] [facility] VLDL CHOLESTEROL 27 mg/dL Normal [facility] Comment on above: Order Comment: Reaso n for Exam Primary hypertension Reason for Exam Primary hypertension;Hypertriglyceridemia Reason for Exam Vitamin D deficiency Performed By: #### C BC, CUU, TSH3, URMACRERAT, T3F, LIPID, T4F, [id number], ADDONUAPLUS, CMP ####[facility]1111 [place] [id number] [facility] MicroAlb Creat Ratio,Uon Albumin DL <= 20 mg/L (U) [Mass/Vol] 0.8 mg/dL Normal 0.0-1.8 [facility] Comment on above: Order Comment: Reaso n for Exam Urinary frequency;Primary hypertension Performed By: #### C BC, CUU, TSH3, URMACRERAT, T3F, LIPID, T4F, [id number], ADDONUAPLUS, CMP ####[place] [address] [place] [id number] [facility] Creatinine, Urine (Random) 177.00 mg/dL Normal [facility] Comment on above: Order Comment: Reaso n for Exam Urinary frequency;Primary hypertension Result Comment: No r eference range established Performed By: #### C BC, CUU, TSH3, URMACRERAT, T3F, LIPID, T4F, [id number], ADDONUAPLUS, CMP ####[place] [address] [place] [address] [facility] Microalbumin/Creatinin e Ratio 4.5 mg/g Normal 0.0-30.0 [facility] Comment on above: Order Comment: Reaso n for Exam Urinary frequency;Primary hypertension Result Comment: 30-3 00 mg/g indicates an increased risk for diabetic nephropathy. Greater than 300 mg/g is consistent with clinical nephropathy. (Am. J. Kidney Disease 1995, 25:107) PERFORMED BY: [facility] [address] [facility] [place] [id number] PATHOLOGIST SPECIAL DEPUTY SHERIFF ОЛЬГА HULL M.D. Performed By: #### C BC, CUU, TSH3, URMACRERAT, T3F, LIPID, T4F, [id number], ADDONUAPLUS, CMP ####[place] [address] [place] [address] [facility] Orders Onlyon 03-27-2024 Orders Only [id number] Booker Craig 1970 F Date Provider Department Center 03/27/2024 [facility] [facility] Second Fl Family History Problem Relation Age of Onset Coronary artery disease Mother Hypertension Mother Other Father Hypertension Father Other Daughter Comments: 05/2023 drug overdose Family Status - Relation Status Age at Mother Father Daughter Normal [facility] Thyroid Stimulating Hormoneo n 03-27-2024 TSH Qn 0.78 m[IU]/L Normal 0.45-5.33 [facility] Comment on above: Order Comment: Reaso n for Exam Primary hypertension Reason for Exam Primary hypertension;Hypertriglyceridemia Reason for Exam Vitamin D deficiency Performed By: #### C BC, CUU, TSH3, URMACRERAT, T3F, LIPID, T4F, [id number], ADDONUAPLUS, CMP ####[address] [address] [facility] Triiodothyronine (T3) Freeon 03-27-2024 Triiodothyronine (T3) Free 3.27 pg/mL Normal 2.50-3.90 [facility] Comment on above: Order Comment: Reaso n for Exam Primary hypertension Result Comment: PERF ORMED BY: [address] [address] PATHOLOGIST SPECIAL DEPUTY SHERIFF ОЛЬГА HULL M.D. Performed By: #### C BC, CUU, TSH3, URMACRERAT, T3F, LIPID, T4F, [id number], ADDONUAPLUS, CMP ####[address] [address] [facility] Urine Cultureon 03-27-2024 Bacteria identified Cx Nom (U) Reason for Exam Urinary frequency Urine No Growth 2 Days PERFORMED BY: [address] [place] [address] PATHOLOGIST SPECIAL DEPUTY SHERIFF ОЛЬГА HULL M.D. Normal [facility] Comment on above: Performed By: #### C BC, CUU, TSH3, URMACRERAT, T3F, LIPID, T4F, [id number], ADDONUAPLUS, CMP ####[address] [address] [facility] Vitamin D 25 Hydroxy Totalon 03-27-2024 Vitamin D 25 Hydroxy Total 30.0 ng/mL Normal 30-100 [facility] Comment on above: Order [...] 2010; 96(7):1911-30. PERFORMED BY: [facility] [address] [place] [address] PATHOLOGIST SPECIAL DEPUTY SHERIFF ОЛЬГА HULL M.D. Performed By: #### C BC, CUU, TSH3, URMACRERAT, T3F, LIPID, T4F, [id number], ADDONUAPLUS, CMP ####[facility] [id number] [place] [address] [facility] Office Visiton 03-23-2024 Follow-up visit [id number] Booker Craig 1970 F Date Provider Department Center 03/23/2024 [facility] Second Fl Family History Problem Relation Age of Onset Coronary artery disease Mother Hypertension Mother Other Father Hypertension Father Other Daughter Comments: 05/2023 drug overdose Family Status - Relation Status Age at Mother Father Daughter Level of Service:92195 [place] POSTOP FOLLOW UP VISIT RELATED TO ORIGINAL PX Reason for Visit and Comments: Post-op [483] - Patient is here today for a post op appt Removal of hardware L4-S1--screws and rods Normal [facility] Orders Onlyon 03-17-2024 Orders Only [id number] Booker Craig 1970 F Date Provider Department Center 03/17/2024 [facility] Second Fl Family History Problem Relation Age of Onset Coronary artery disease Mother Hypertension Mother Other Father Hypertension Father Other Daughter Comments: 05/2023 drug overdose Family Status - Relation Status Age at Mother Father Daughter Normal [facility] Refillon 03-16-2024 Refill [id number] Booker Craig 1970 Date Provider Department Center 03/16/2024 [facility] 6AB None Family History Problem Relation Age of Onset Coronary artery disease Mother Hypertension Mother Other Father Hypertension Father Other Daughter Comments: 05/2023 drug overdose Family Status - Relation Status Age at Mother Father Daughter Reason for Visit and Comments: Med Refill [[id number]] Normal [facility] 30on 03-10-2024 30 Face to face for shower chair and raised toilet seat: Needs shower chair and raised toilet seat due to safety deficits with mobility related activities of daily living. Deficits can be safely resolved with use of this durable medical equipment. Prescriptions were provided. Length of need: 99 months. Height: 165.1 cm. Weight: 70.7 kg. Normal [facility] BASIC METABOLIC PANELon 12-0 Anion gap [Moles/Vol] 10 mmol/L Normal 7-20 [facility] Comment on above: Performed By: #### L [id number] ####[facility] ([facility])[address] [place] [address] Calcium [Mass/Vol] 8.6 mg/dL Normal 8.6-10.3 [facility] Comment on above: Performed By: #### L [id number] ####[facility] (BEAKER)[address] [place] [address] Chloride [Moles/Vol] 108 mmol/L High 98-107 [facility] Comment on above: Performed By: #### L [id number] ####[facility] (BEAKER)[address] [place] [address] CO2 [Moles/Vol] 27 mmol/L Normal 21-31 [facility] Comment on above: Performed By: #### L [id number] ####[facility] (BEAKER)[address] [place] [address] Creatinine [Mass/Vol] 0.81 mg/dL Normal 0.60-1.20 [facility] Comment on above: Performed By: #### L [id number] ####[facility] ([facility])[address] [place] [address] GLOMERULAR FILTRATION RATE ML/MIN/1.73 SQ M.PREDICTED 87.3 mL/min/1.73m*2 Normal >60.0 [facility] Comment on above: Result Comment: The [facility]???s estimated glomerular filtration rate (eGFR) will [...] of individuals. Performed By: #### L [id number] ####[facility] ([facility])[address] [place] [address] Glucose [Mass/Vol] 103 mg/dL High 70-100 [facility] Comment on above: Performed By: #### L [id number] ####[facility] ([facility])[address] [place] [address] Potassium [Moles/Vol] 3.8 mmol/L Normal 3.5-5.1 [facility] Comment on above: Performed By: #### L [id number] ####[facility] ([facility])[address] [place] [address] Sodium [Moles/Vol] 141 mmol/L Normal 136-145 [facility] Comment on above: Performed By: #### L [id number] ####[facility] ([facility])[address] [place] [address] Urea nitrogen [Mass/Vol] 8 mg/dL Normal 7-25 [facility] Comment on above: Performed By: #### L [id number] ####[facility] ([facility])[address] [place] [address] UREA NITROGEN/CREATININE (MASS RATIO) IN SER/PLAS 9.9 Normal [facility] Comment on above: Performed By: #### L [id number] ####[facility] ([facility])[address] [place] [address] CBC WITH AUTO DIFFERENTIALon 03-10-2024 Basophils (Bld) [#/Vol] 0.01 10*3/uL Normal 0.00-0.20 [facility] Comment on above: Performed By: #### L [id number] ####[facility] (BEAKER)[address] [place] [address] Basophils/100 WBC (Bld) 0.1 % Normal 0.0-1.0 [facility] Comment on above: Performed By: #### L [id number] ####[facility] (BEAKER)[address] [place] [address] Eosinophils (Bld) [#/Vol] 0.21 10*3/uL Normal 0.00-0.50 [facility] Comment on above: Performed By: #### L [id number] ####[facility] (BE[facility]ER)[address] [place] [address] Eosinophils/100 WBC (Bld) 2.9 % Normal 0.0-6.0 [facility] Comment on above: Performed By: #### L [id number] ####[facility] ([facility])[address] [place] [address] Erythrocyte distribution width (RBC) [Ratio] 13.7 % Normal 11.5-15.0 [facility] Comment on above: Performed By: #### L [id number] ####[facility] (BE[facility]ER)[address] [place] [address] ERYTHROCYTE MEAN CORPUSCULAR HEMOGLOBIN CONCENTRATION (G/DL) BY AUTOMATED 33.3 g/dL Normal 32.0-35.0 [facility] Comment on above: Performed By: #### L [id number] ####[facility] (BEAKER)[address] [place] [address] Hematocrit (Bld) [Volume fraction] 35.7 % Low 36.0-48.0 [facility] Comment on above: Performed By: #### L [id number] ####[facility] ([facility]ER)[address] [place] [address] Hemoglobin (Bld) [Mass/Vol] 11.9 g/dL Low 12.0-15.0 [facility] Comment on above: Performed By: #### L [id number] ####[facility] ([facility]ER)[address] [place] [address] Immature granulocytes (Bld) [#/Vol] 0.02 10*3/uL Normal 0.00-0.20 [facility] Comment on above: Performed By: #### L [id number] ####[facility] (BE[facility]ER)[address] [place] [address] Immature granulocytes/100 WBC (Bld) 0.3 % Normal 0.0-1.0 [facility] Comment on above: Performed By: #### L [id number] ####[facility] ([facility])[address] [place] [address] Lymphocytes (Bld) [#/Vol] 0.74 10*3/uL Low 1.20-4.00 [facility] Comment on above: Performed By: #### L [id number] ####[facility] ([facility]ER)[address] [place] [address] Lymphocytes/100 WBC (Bld) 10.3 % Low 20.0-45.0 [facility] Comment on above: Performed By: #### L [id number] ####[facility] ([facility])[address] [place] [address] MCH (RBC) [Entitic mass] 30.7 pg Normal 27.0-33.0 [facility] Comment on above: Performed By: #### L [id number] ####[facility] ([facility]ER)[address] [place] [address] MCV (RBC) [Entitic vol] 92.2 fL Normal 82.0-98.0 [facility] Comment on above: Performed By: #### L [id number] ####[facility] ([facility]ER)[address] [place] [address] Monocytes (Bld) [#/Vol] 1.01 10*3/uL High 0.10-1.00 [facility] Comment on above: Performed By: #### L [id number] ####[facility] ([facility])[address] [place] [address] Monocytes/100 WBC (Bld) 14.0 % High 5.0-12.0 [facility] Comment on above: Performed By: #### L [id number] ####[facility] ([facility])[address] [place] [address] Neutrophils (Bld) [#/Vol] 5.22 10*3/uL Normal 1.60-7.60 [facility] Comment on above: Performed By: #### L [id number] ####[facility] ([facility])[address] [place] [address] Neutrophils/100 WBC (Bld) 72.4 % High 40.0-72.0 [facility] Comment on above: Performed By: #### L [id number] ####[facility] ([facility])[address] [place] [address] NRBC (PER 100 WBCS) BY AUTOMATED COUNT 0.0 % Normal 0 [facility] Comment on above: Performed By: #### L [id number] ####[facility] ([facility])[address] [place] [address] PLATELETS (10*3/UL) IN BLOOD AUTOMATED COUNT 228 10*3/uL Normal 150-400 [facility] Comment on above: Performed By: #### L [id number] ####[facility] ([facility])[address] [place] [address] RBC (Bld) [#/Vol] 3.87 10*6/uL Normal 3.80-5.00 [facility] Comment on above: Performed By: #### L [id number] ####[facility] ([facility])[address] [place] [address] WBC (Bld) [#/Vol] 7.21 10*3/uL Normal 4.00-10.60 [facility] Comment on above: Performed By: #### L [id number] ####[facility] (BEAKER)[address] [place] [address] DSon 03-10-2024 DS Admission Admitted 03/09/2024 for Loosening of hardware in spine. Discharge Diagnosis Loosening of hardware in spine ([facility]) Discharge Disposition Home or Self Care (01) [...] propylene glycol 99.5 % (not less than, CORRECTION) liquid external solution STOP taking these medications chlorhexidine 4 % external liquid Commonly known as: Hibiclens diazePAM 5 mg tablet Commonly known as: Valium traMADol 50 mg tablet Commonly known as: Ultram Where to Get Your Medications These medications were sent to [facility] - [place], [place] - [address], [facility] [address] docusate sodium 100 mg capsule ketorolac 10 [...] Lab Results L (more content not included)... [facility] HPon 03-09-2024 HP H&P reviewed. The patient was examined and there are no changes to the H&P. [facility] OPNOTEon 03-09-2024 OPNOTE Date: 03/09/2024 Location: [facility] OR Name: Isela Craig, : 1970, Diagnosis Pre-op Diagnosis * Loosening of hardware in spine ([facility]) [T84.498A] Post-op Diagnosis * Loosening of hardware in spine ([facility]) [T84.498A] Procedures * L4-S1 Removal of Hardware(Screws and Rods) [place] REMOVAL POSTERIOR SEGMENTAL INSTRUMENTATION [94880] Surgeons Primary: León Yee MD Procedure Summary Anesthesia: General ASA: II Estimated Blood Loss: Minimal Drains: * None in log * Staff: Overcoil Stepper: Tulio Peace RN Scrub Person: Pamela Rodriguez CST Armature And Rotor Winder: Fatmata Don RN; Dashawn Lezama CSA Indications: Isela Craig is an 53 y.o. female who is having surgery for Loosening of hardware in spine ([facility]/H[facility]) [T84.498A]. Findings: Right S1 screw fractured. Well developed fusion mass. Complications: None; patient tolerated the procedure well. Disposition: PACU - hemodynamically stable. Condition: stable Specimens Collected: Order Name Source Comment Collection Info Order Time URINE QUALITATIVE Urine, Clean Catch 03/09/2024 10:45 AM Release to Patient Immediately Attending Attestation: I performed the procedure. León Yee [facility] OPNOTE L4-S1 Removal of Hardware(Screws and Rods) Operative Note Date: 03/09/2024 Location: [facility] OR Name: Isela Butts Rafa, : 1970, Diagnosis Pre-op Diagnosis * Loosening of hardware in spine ([facility]) [T84.498A] Post-op Diagnosis * Loosening of hardware in spine ([facility]) [T84.498A] Procedures * L4-S1 Removal of Hardware(Screws and Rods) [place] REMOVAL POSTERIOR SEGMENTAL INSTRUMENTATION [99361] Surgeons Primary: León Yee MD Procedure Summary Anesthesia: General ASA: II Estimated Blood Loss: 100 cc Drains: * None in log * Staff: Overcoil Stepper: Tulio Peace RN Scrub Person: Pamela Rodriguez, FRAMING MANAGER Armature And Rotor Winder: Fatmata Don RN; Dashawn Lezama CSA Indications: Isela Craig is an 53 y.o. female who is having surgery for Loosening of hardware in spine ([facility]) [T84.498A]. She had undergone a L4-S1 posterior [...] rods were mobilized with a Kofi needle lokie driver and removed. The heads of each screw [...] was reversed a (more content not included)... [facility] POCT GLUCOSE METER UNSOLICIT ED RESULTSon 03-09-2024 Glucose [Mass/Vol] 95 mg/dL Normal 70-105 [facility] Comment on above: Order Comment: Waive d Testing in the ED is performed under the ED CLIA certificate #[id number]. Result Comment: johnlast ez Performed By: #### L [id number] #### [facility] ([facility]ER) [address] [place] [address] Glucose [Mass/Vol] 88 mg/dL Normal 70-105 [facility] Comment on above: Order Comment: Waive d Testing in the ED is performed under the ED CLIA certificate #[id number]. Result Comment: acle ment Performed By: #### L [id number] #### [facility] ([facility]AKER) [address] [place] [address] Patient Letter FTon 2023 Patient Letter FT Patient Letter [facility] March 06, 2024 ISELA CRAIG [address] [place] [id number] : 1970 Dear Isela, You missed your [...] any future cancellations. Sincerely, [facility] [address], [place] [address] [facility] 36on 03-01-2024 36 Pt will not need new EKG, had one in Dec. Good for 1 year. [facility] 36on 02-28-2024 36 Called pt to discuss MSSA results. Pt states that she had her EKG done at [facility]. I called and spoke with Lawrence Cochran HIM. Pt had EKG done on 02/16/24, however, is not signed. Will call daily until signed and obtain EKG. Lawrence Cochran HIM: [phone]. [facility] 36 Discussed with pt. P t verbalized understanding. [facility] 36 CHG wash sent to pharmacy. LVM with pt to discuss. [facility] 36on 02-25-2024 36 +MSSA. I ordered the nasal povidone iodine for preop. She will need 5 days of chlorhexidine prior to OR. OR 03/09. Thank you. [facility] 36 Patient had voiced i n yesterday's pre op appointment that she had a recent EKG done at [facility]. Fund Director reached out to [facility], they stated that the last one she had completed was on 12/14. Fund Director called patient to notify her that she needs to get a new EKG completed and patient then said she had a recent one done at [facility]. Sending request to [phone] [facility] Prep for Procedureon 024 Prep for Procedure [id number] Booker Craig 1970 Date Provider Department Center 02/25/2024 N[facility] Second Fl Family History Problem Relation Age of Onset Coronary artery disease Mother Hypertension Mother Other Father Hypertension Father Other Daughter Comments: 05/2023 drug overdose Family Status - Relation Status Age at Mother Father Daughter [facility] Telephoneon 02-25-2024 Telephone [id number] Booker Craig 1970 Date Provider Department Center 02/25/2024 RICK VIRAMONTES [facility] Second Fl Family History Problem Relation Age of Onset Coronary artery disease Mother Hypertension Mother Other Father Hypertension Father Other Daughter Comments: 05/2023 drug overdose Family Status - Relation Status Age at Mother Father Daughter [facility] Telephone [id number] Booker Craig 1970 Date Provider Department Center 02/25/2024 [facility] Second Fl Family History Problem Relation Age of Onset Coronary artery disease Mother Hypertension Mother Other Father Hypertension Father Other Daughter Comments: 05/2023 drug overdose Family Status - Relation Status Age at Mother Father Daughter Normal [facility] APTTon 02-24-2024 ACTIVATED PARTIAL THROMBOPLASTIN TIME IN PPP BY COAGULATION ASSAY 27.5 Seconds Normal 25.0-35.0 [facility] Comment on above: Result Comment: Clin ical significance of the APTT is questionable in the presence of heparin. Performed By: #### L [id number] #### [facility] (BEAKER) [address] [place] [address] BASIC METABOLIC PANELon 11- Anion gap [Moles/Vol] 12 mmol/L Normal 7-20 [facility] Comment on above: Performed By: #### L [id number] #### [facility] (BEAKER) [address] [place] [address] Calcium [Mass/Vol] 9.6 mg/dL Normal 8.6-10.3 [facility] Comment on above: Performed By: #### L [id number] #### [facility] (BEAKER) [address] [place] [address] Chloride [Moles/Vol] 104 mmol/L Normal 98-107 [facility] Comment on above: Performed By: #### L [id number] #### [facility] (BEAKER) [address] [place] [address] CO2 [Moles/Vol] 27 mmol/L Normal 21-31 [facility] Comment on above: Performed By: #### L [id number] #### [facility] (BEAKER) [address] [place] [address] Creatinine [Mass/Vol] 0.77 mg/dL Normal 0.60-1.20 [facility] Comment on above: Performed By: #### L [id number] #### [facility] (BEAKER) [address] [place] [address] GLOMERULAR FILTRATION RATE ML/MIN/1.73 SQ M.PREDICTED 92.8 mL/min/1.73m*2 Normal >60.0 [facility] Comment on above: Result Comment: [facility]???s estimated glomerular filtration rate (eGFR) will [...] individuals. Performed By: #### L [id number] #### [facility] ([facility]) [address] [place] [address] Glucose [Mass/Vol] 83 mg/dL Normal 70-100 [facility] Comment on above: Performed By: #### L [id number] #### [facility] ([facility]) [address] [place] [address] Potassium [Moles/Vol] 3.6 mmol/L Normal 3.5-5.1 [facility] Comment on above: Performed By: #### L [id number] #### [facility] ([facility]) [address] [place] [address] Sodium [Moles/Vol] 139 mmol/L Normal 136-145 [facility] Comment on above: Performed By: #### L [id number] #### [facility] ([facility]) [address] [place] [address] Urea nitrogen [Mass/Vol] 12 mg/dL Normal 7-25 [facility] Comment on above: Performed By: #### L [id number] #### [facility] ([facility]) [address] [place] [address] UREA NITROGEN/CREATININE (MASS RATIO) IN SER/PLAS 15.6 Normal [facility] Comment on above: Performed By: #### L [id number] #### [facility] ([facility]) [address] [place] [address] CBC WITH AUTO DIFFERENTIALon 02-24-2024 Basophils (Bld) [#/Vol] 0.07 10*3/uL Normal 0.00-0.20 [facility] Comment on above: Performed By: #### L [id number] #### [facility] ([facility]) [address] [place] [address] Basophils/100 WBC (Bld) 0.8 % Normal 0.0-1.0 [facility] Comment on above: Performed By: #### L [id number] #### [facility] ([facility]) [address] [place] [address] Eosinophils (Bld) [#/Vol] 0.12 10*3/uL Normal 0.00-0.50 [facility] Comment on above: Performed By: #### L [id number] #### [facility] ([facility]) [address] [place] [address] Eosinophils/100 WBC (Bld) 1.4 % Normal 0.0-6.0 [facility] Comment on above: Performed By: #### L [id number] #### [facility] ([facility]) [address] [place] [address] Erythrocyte distribution width (RBC) [Ratio] 14.0 % Normal 11.5-15.0 [facility] Comment on above: Performed By: #### L [id number] #### [facility] ([facility]) [address] [place] [address] ERYTHROCYTE MEAN CORPUSCULAR HEMOGLOBIN CONCENTRATION (G/DL) BY AUTOMATED 33.0 g/dL Normal 32.0-35.0 [facility] Comment on above: Performed By: #### L [id number] #### [facility] ([facility]) [address] [place] [address] Hematocrit (Bld) [Volume fraction] 41.2 % Normal 36.0-48.0 [facility] Comment on above: Performed By: #### L [id number] #### [facility] (BEAKER) [address] [facility] [place] [address] Hemoglobin (Bld) [Mass/Vol] 13.6 g/dL Normal 12.0-15.0 [facility] Comment on above: Performed By: #### L [id number] #### [facility] ([facility]) [address] [place] [address] Immature granulocytes (Bld) [#/Vol] 0.02 10*3/uL Normal 0.00-0.20 [facility] Comment on above: Performed By: #### L [id number] #### [facility] ([facility]) [address] [place] [address] Immature granulocytes/100 WBC (Bld) 0.2 % Normal 0.0-1.0 [facility] Comment on above: Performed By: #### L [id number] #### [facility] ([facility]) [address] [place] [address] Lymphocytes (Bld) [#/Vol] 2.59 10*3/uL Normal 1.20-4.00 [facility] Comment on above: Performed By: #### L [id number] #### [facility] ([facility]) [address] [place] [address] Lymphocytes/100 WBC (Bld) 29.7 % Normal 20.0-45.0 [facility] Comment on above: Performed By: #### L [id number] #### [facility] ([facility]) [address] [place] [address] MCH (RBC) [Entitic mass] 31.1 pg Normal 27.0-33.0 [facility] Comment on above: Performed By: #### L [id number] #### [facility] ([facility]) [address] [place] [address] MCV (RBC) [Entitic vol] 94.1 fL Normal 82.0-98.0 [facility] Comment on above: Performed By: #### L [id number] #### [facility] ([facility]) [address] [place] [address] Monocytes (Bld) [#/Vol] 0.99 10*3/uL Normal 0.10-1.00 [facility] Comment on above: Performed By: #### L [id number] #### [facility] (BEAKER) [address] [place] [address] Monocytes/100 WBC (Bld) 11.4 % Normal 5.0-12.0 [facility] Comment on above: Performed By: #### L [id number] #### [facility] ([facility]) [address] [place] [address] Neutrophils (Bld) [#/Vol] 4.93 10*3/uL Normal 1.60-7.60 [facility] Comment on above: Performed By: #### L [id number] #### [facility] ([facility]) [address] [place] [address] Neutrophils/100 WBC (Bld) 56.5 % Normal 40.0-72.0 [facility] Comment on above: Performed By: #### L [id number] #### [facility] ([facility]) [address] [place] [address] NRBC (PER 100 WBCS) BY AUTOMATED COUNT 0.0 % Normal 0 [facility] Comment on above: Performed By: #### L [id number] #### [facility] (BEAKER) [address] [place] [address] PLATELETS (10*3/UL) IN BLOOD AUTOMATED COUNT 388 10*3/uL Normal 150-400 [facility] Comment on above: Performed By: #### L [id number] #### [facility] (BEAKER) [address] [place] [address] RBC (Bld) [#/Vol] 4.38 10*6/uL Normal 3.80-5.00 [facility] Comment on above: Performed By: #### L [id number] #### [facility] (BEAKER) [address] [place] [address] WBC (Bld) [#/Vol] 8.72 10*3/uL Normal 4.00-10.60 [facility] Comment on above: Performed By: #### L [id number] #### [facility] (JEN) [address] [place] [address] Consulton 02-24-2024 Consult [id number] Booker Craig 1970 F Date Provider Department Center 02/24/2024 CHLOE TOMLIN [facility] Second Fl Family History Problem Relation Age of Onset Coronary artery disease Mother Hypertension Mother Other Father Hypertension Father Other Daughter Comments: 05/2023 drug overdose Family Status - Relation Status Age at Mother Father Daughter Level of Service:13958 [place] OFFICE/OUTPATIENT NEW MODERATE MDM 45 MINUTES Reason for Visit and Comments: Pre-op Exam [[id number]] Normal [facility] HPon 02-24-2024 HP SUBJECTIVE: Chief complaint: [...] propylene glycol 99.5 % (not less than, CORRECTION) liquid external (more content not included)... Normal [facility] Labon 02-24-2024 Lab [id number] Booker Craig 1970 F Date Provider Department Center 02/24/2024 2245-[facility] LAB RESOURCE [facility] Family History Problem Relation Age of Onset Coronary artery disease Mother Hypertension Mother Other Father Hypertension Father Other Daughter Comments: 05/2023 drug overdose Family Status - Relation Status Age at Mother Father Daughter Normal [facility] MRSA/MSSA DNA NASALon 2023 MRSA DNA Negative Normal Negative [facility] Comment on above: Order Comment: Testkelly [...] preclude nasal colonization. Performed By: #### L [id number] ####[facility] (BEAKER)[address] [place] [address] MSSA DNA Positive Abnormal Negative [facility] Comment on above: Order Comment: Testi [...] preclude nasal colonization. Performed By: #### L [id number] ####[facility] (BEAKER)[address] [place] [address] PROTIME-INRon 02-24-2024 INR IN PPP BY COAGULATION ASSAY 1.02 Normal 0.90-1.10 [facility] Comment on above: Result Comment: ACCC [...] 1995;108:231S-246S. Performed By: #### L [id number] #### [facility] (BEAKER) [address] [place] [address] PROTHROMBIN TIME (PT) IN PPP BY COAGULATION ASSAY 13.4 Seconds Normal 12.3-14.8 [facility] Comment on above: Performed By: #### L [id number] #### [facility] (BEAKER) [address] [place] [address] TYPE AND SCREENon 02-24-2024 AB SCREEN Negative Normal [facility] Comment on above: Performed By: #### L [id number] #### [facility] , ABO group Nom (Bld) A Normal [facility] Comment on above: Performed By: #### L [id number] #### [facility] , RH TYPE IN BLOOD Positive Normal [facility] Comment on above: Performed By: #### L [id number] #### [facility] , Event Monitoron 02-21-2024 [...] BY: Julien Cho MD ca Dictated: 02/19/2024 [id number] Transcribed: 02/20/2024 cc:Roosevelt Sotelo PA-C Normal [facility] Comment on above: Result Comment: Elec tronically Signed By: Marquis PATRICK, Julien Clinton\.guillermina\Date and Time Signed: 02/21/24 14:07 EST 36on 02-16-2024 36 Clearances are in media Normal [facility] Office/Cl inic Noteon [...] did not s (more content not included)... [facility] Comment on above: Result Comment: Elec tronically Signed By: Deepak MOSES, Roosevelt Remy\.br\Date and Time Signed: 02/16/24 10:06 EST 36on 02-11-2024 36 Spoke with PCP's office for status update on clearance. Message sent to PCP. [facility] 36 Called and spoke wit h PCP office to verify if they have received clearance request. The switchboard operator receptionist stated that she will send a message to the provider for status update. Verified fax number is correct. I provided my call back number if they need request to be refaxed. [facility] 36on 02-04-2024 36 Pt called and was scheduled. Aspirin hold clearance request faxed to PCP. [facility] 36 LVM for pt to call back to discuss who prescribes aspirin and to schedule surgery. [facility] 36on 02-02-2024 36 Discussed with randolph [...] the hardware removed. Will work on arranging. [facility] Telephoneon 02-02-2024 Telephone [id number] RafaBooker Butts 1970 Date Provider Department Center 02/02/2024 [id number], [facility] Second Fl Family History Problem Relation Age of Onset Coronary artery disease Mother Hypertension Mother Other Father Hypertension Father Other Daughter Comments: 05/2023 drug overdose Family Status - Relation Status Age at Mother Father Daughter [facility] 36on 02-01-2024 36 Left message for patient to call back to discuss plan for her back. [facility] Telephoneon 02-01-2024 Telephone [id number] Booker Craig 1970 Date Provider Department [place] 02/01/2024 148-[id number] Second Fl Family History Problem Relation Age of Onset Coronary artery disease Mother Hypertension Mother Other Father Hypertension Father Other Daughter Comments: 05/2023 drug overdose Family Status - Relation Status Age at Mother Father Daughter [facility] Follow-Upon 01-27-2024 Follow-Up [id number] RafaBooker Butts 1970 Provider Department [place] 01/27/2024 [id number], [facility] Second Fl Family History Problem Relation Age of Onset Coronary artery disease Mother Hypertension Mother Other Father Hypertension Father Other Daughter Comments: 05/2023 drug overdose Family Status - Relation Status Age at Mother Father Daughter Level of Service:18849 [place] OFFICE/OUTPATIENT ESTABLISHED MOD MDM 30 MIN Reason for Visit and Comments: Follow-up [[id number]] - Patient is here today for a follow up for back pain and reviewing her recent imaging [facility] 36on 01-25-2024 36 Fund Director saw that patient had no showed to todays imaging for CT and MRI. Fund Director called patient to see if that was completed. She voiced that she got the imaging done at [facility] a couple weeks ago. Called [facility], they are pushing over imaging and sending over the reports. Normal [facility] US Carotid Duplex Bilateralo n 01-12-2024 [...] Criteria Committee. Vascular Medicine 2020; https://journals.sagep ub.com/doi/full/10.117 7/5030686G856944334 Ordering Provider: Roosevelt Sotelo FINAL REPORT Dictated: 01/12/2024 1:18 pm Tulio Delgado DO Signed (Electronic Signature): 01/12/2024 1:18 pm Signed by: Tulio Delgado DO Transcribed by: CASEY Technologist: JENAE Technical Comments Velocities Right Vert. Antegrade Yes Technical Comments Velocities Left Vert. Antegrade Yes Normal [facility] 36on 01-06-2024 36 LVM for pt to notify. Normal [facility] Orders Onlyon 01-06-2024 Orders Only [id number] Booker Craig 1970 F Date Provider Department Center 01/06/2024 CHLOE [place] [facility] Second Fl Family History Problem Relation Age of Onset Coronary artery disease Mother Hypertension Mother Other Father Hypertension Father Other Daughter Comments: 05/2023 drug overdose Family Status - Relation Status Age at Mother Father Daughter [facility] 36on 01-05-2024 36 Pt called back stati ng that she had taken the medication prior to her original MRI that was scheduled. Per pt, Libia had a scheduling mix up. Pt was rescheduled for today. Pt states that she was going to try to do MRI without medication, but could not. Pt did say she had her CT done. [facility] Orders Onlyon 01-05-2024 Orders Only [id number] Booker Craig 1970 F Date Provider Department Center 01/05/2024 NABOR CHLOE [facility] Second Fl Family History Problem Relation Age of Onset Coronary artery disease Mother Hypertension Mother Other Father Hypertension Father Other Daughter Comments: 05/2023 drug overdose Family Status - Relation Status Age at Mother Father Daughter [facility] 36on 12-22-2023 36 Pt called and LVM requesting CT and MRI orders be faxed to [facility]. Pt has existing CT and MRI scheduled here at [facility]. I called and LVM with pt to notify of orders faxed to [facility], that she will need to bring disc of imaging to her follow up visit with Chloe Ceballos CNP and to call [facility] radiology to cancel appointments. Follow up visit date and time and radiology scheduling number provided in VM. [facility] Consulton 12-14-2023 Consult [id number] Booker Craig 1970 F Date Provider Department Center 12/14/2023 CHLOE [place] [facility] Second Fl Family History Problem Relation Age of Onset Coronary artery disease Mother Hypertension Mother Other Father Hypertension Father Other Daughter Comments: 05/2023 drug overdose Family Status - Relation Status Age at Mother Father Daughter Level of Service:34487 [place] OFFICE/OUTPATIENT NEW MODERATE MDM 45 MINUTES Reason for Visit and Comments: Consult [484] - broken screw from past surgery. Pt will bring disc of Xr and MRI with her. Normal [facility] MR lumbar spine wo conon MR lumbar spine wo con [facility] [place] [address] [place] [address] MRI Report Signed Patient: Isela Craig MR#: [id number] [id number] : 1970 Acct:[id number] Age/Sex: 53 / F ADM Date: 12/02/23 Loc: ICMR Room: Type: [facility] Attending Dr: Jes Cruz CLINICAL TECH-C Copies to: Jes Cruz Ordering Provider: Jes [...] Bjorn Rdz M.D.12/02/2023 3:22 PM Dictation Location: [place] [address] Transcribed By: FLORES 12/02/23 152 Dictated By: Bjorn Rdz II, MD 12/02/23 1512 Signed By: 12/02/23 1522 Normal [facility] Alanine aminotransferase [En zymatic activity/volume] in Serum or PlasmaOrdered By: Jse Cruz on 11-01-2023 ALT [Catalytic activity/Vol] 17 U/L Normal 7-52 [facility] Comment on above: Order Comment: Reaso n for Exam Primary hypertension Reason for Exam Low iron Reason for Exam Primary hypertension;Hypertriglyceridemia Reason for Exam Hot flashes Reason for Exam Vitamin D deficiency Performed By: #### F SH, T3F, CBC, TSH3, [id number], CMP, SHAMA, FE and TIBC, LIPID, CUU, [id number], UA #### [address] #### ESTRADIOL, LH #### [facility] , Albumin [Mass/volume] in Ser um or Plasma by Bromocresol green (BCG) dye binding methoOrdered By: Jes Cruz on 11-01-2023 Albumin BCG dye [Mass/Vol] 4.3 g/dL 3.5-5.7 [facility] Alkaline phosphatase [Enzyma tic activity/volume] in Serum or PlasmaOrdered By: Jes Cruz on 11-01-2023 ALP [Catalytic activity/Vol] 87 U/L Normal 34-104 [facility] Comment on above: Order Comment: Reaso n for Exam Primary hypertension Reason for Exam Low iron Reason for Exam Primary hypertension;Hypertriglyceridemia Reason for Exam Hot flashes Reason for Exam Vitamin D deficiency Performed By: #### F SH, T3F, CBC, TSH3, [id number], CMP, SHAMA, FE and TIBC, LIPID, CUU, [id number], UA #### [facility] [address] [place] [address] [place] #### ESTRADIOL, LH #### [facility] , Aspartate aminotransferase [ Enzymatic activity/volume] in Serum or PlasmaOrdered By: Jes Cruz on 11-01-2023 AST [Catalytic activity/Vol] 13 U/L Normal 13-39 [facility] Comment on above: Order Comment: Reaso n for Exam Primary hypertension Reason for Exam Low iron Reason for Exam Primary hypertension;Hypertriglyceridemia Reason for Exam Hot flashes Reason for Exam Vitamin D deficiency Performed By: #### F SH, T3F, CBC, TSH3, [id number], CMP, SHAMA, FE and TIBC, LIPID, CUU, [id number], UA #### [facility] [address] [place] [address] #### ESTRADIOL, LH #### [facility] , Automated basophil %Ordered By: Jes Cruz on 11-01-2023 Basophils/100 WBC (Bld) 1.1 % Normal . [facility] Comment on above: Order Comment: Reaso n for Exam Primary hypertension Performed By: #### F SH, T3F, CBC, TSH3, [id number], CMP, SHAMA, FE and TIBC, LIPID, CUU, [id number], UA #### [facility] [address] [place] [address] [place] #### ESTRADIOL, LH #### [facility] , Automated basophil countOrde red By: Jes Cruz on 11-01-2023 Basophils (Bld) [#/Vol] 0.1 10*3/uL Normal 0.0-0.2 [facility] Comment on above: Order Comment: Reaso n for Exam Primary hypertension Result Comment: PERF ORMED BY: [place] [address] PATHOLOGIST SPECIAL DEPUTY SHERIFF JIANLAN SUN M.D. Performed By: #### F SH, T3F, CBC, TSH3, [id number], CMP, SHAMA, FE and TIBC, LIPID, CUU, [id number], UA #### [place] [address] [place] #### ESTRADIOL, LH #### [facility] , Automated blood monocyte cou ntOrdered By: Jes Cruz on 11-01-2023 Monocytes (Bld) [#/Vol] 0.8 10*3/uL Normal 0.0-0.8 [facility] Comment on above: Order Comment: Reaso n for Exam Primary hypertension Performed By: #### F SH, T3F, CBC, TSH3, [id number], CMP, SHAMA, FE and TIBC, LIPID, CUU, [id number], UA #### [place] [address] [place] #### ESTRADIOL, LH #### [facility] , Automated eosinophil %Ordere d By: Jes Cruz on 11-01-2023 Eosinophils/100 WBC (Bld) 1.5 % Normal . [facility] Comment on above: Order Comment: Reaso n for Exam Primary hypertension Performed By: #### F SH, T3F, CBC, TSH3, [id number], CMP, SHAMA, FE and TIBC, LIPID, CUU, [id number], UA #### [place] [address] [place] #### ESTRADIOL, LH #### [facility] , Automated eosinophil countOr dered By: Jes Cruz on 11-01-2023 Eosinophils (Bld) [#/Vol] 0.1 10*3/uL Normal 0.0-0.45 [facility] Comment on above: Order Comment: Reaso n for Exam Primary hypertension Performed By: #### F SH, T3F, CBC, TSH3, [id number], CMP, SHAMA, FE and TIBC, LIPID, CUU, [id number], UA #### [place] [address] [place] #### ESTRADIOL, LH #### [facility] , Automated monocyte %Ordered By: Jes Cruz on 11-01-2023 Monocytes/100 WBC (Bld) 10.8 % Normal . [facility] Comment on above: Order Comment: Reaso n for Exam Primary hypertension Performed By: #### F SH, T3F, CBC, TSH3, [id number], CMP, SHAMA, FE and TIBC, LIPID, CUU, [id number], UA #### [facility] [address] #### ESTRADIOL, LH #### [facility] , Automated neutrophil %Ordere d By: Jes Tamezson on 11-01-2023 Neutrophils/100 WBC (Bld) 58.6 % Normal . [facility] Comment on above: Order Comment: Reaso n for Exam Primary hypertension Performed By: #### F SH, T3F, CBC, TSH3, [id number], CMP, SHAMA, FE and TIBC, LIPID, CUU, [id number], UA #### [facility] [address] [place] [address] [place] #### ESTRADIOL, LH #### [facility] , Bilirubin Test strip Ql (U)O rdered By: Jes Cruz on 11-01-2023 Bilirubin Ql (U) Negative Negative [facility] Bilirubin.total [Mass/volume ] in Serum or PlasmaOrdered By: Jes Cruz on 11-01-2023 Bilirubin [Mass/Vol] 0.4 mg/dL Normal 0.3-1.0 [facility] Comment on above: Order Comment: Reaso n for Exam Primary hypertension Reason for Exam Low iron Reason for Exam Primary hypertension;Hypertriglyceridemia Reason for Exam Hot flashes Reason for Exam Vitamin D deficiency Performed By: #### F SH, T3F, CBC, TSH3, [id number], CMP, SHAMA, FE and TIBC, LIPID, CUU, [id number], UA #### [facility] [address] [place] [address] [place] #### ESTRADIOL, LH #### [facility] , Calcium [Mass/volume] in Ser um or PlasmaOrdered By: Jes Anthony on 11-01-2023 Calcium [Mass/Vol] 9.4 mg/dL Normal 8.6-10.3 [facility] Comment on above: Order Comment: Reaso n for Exam Primary hypertension Reason for Exam Low iron Reason for Exam Primary hypertension;Hypertriglyceridemia Reason for Exam Hot flashes Reason for Exam Vitamin D deficiency Performed By: #### F SH, T3F, CBC, TSH3, [id number], CMP, SHAMA, FE and TIBC, LIPID, CUU, [id number], UA #### [facility] [address] #### ESTRADIOL, LH #### [facility] , Carbon dioxide, total [Moles /volume] in Serum or PlasmaOrdered By: Jes Cruz on 11-01-2023 CO2 [Moles/Vol] 28.5 mmol/L Normal 21.0-31.0 [facility] Comment on above: Order Comment: Reaso n for Exam Primary hypertension Reason for Exam Low iron Reason for Exam Primary hypertension;Hypertriglyceridemia Reason for Exam Hot flashes Reason for Exam Vitamin D deficiency Performed By: #### F SH, T3F, CBC, TSH3, [id number], CMP, SHAMA, FE and TIBC, LIPID, CUU, [id number], UA #### [facility] [address] [place] [address] [place] #### ESTRADIOL, LH #### [facility] , Chloride [Moles/volume] in S shanna or PlasmaOrdered By: Jes Cruz on 11-01-2023 Chloride [Moles/Vol] 105 mmol/L Normal 98-107 [facility] Comment on above: Order Comment: Reaso n for Exam Primary hypertension Reason for Exam Low iron Reason for Exam Primary hypertension;Hypertriglyceridemia Reason for Exam Hot flashes Reason for Exam Vitamin D deficiency Performed By: #### F SH, T3F, CBC, TSH3, [id number], CMP, SHAMA, FE and TIBC, LIPID, CUU, [id number], UA #### [facility] [address] [place] [address] [place] #### ESTRADIOL, LH #### [facility] , Cholesterol [Mass/volume] in Serum or PlasmaOrdered By: Jes Cruz on 11-01-2023 Cholesterol [Mass/Vol] 285 mg/dL High 140-200 [facility] Comment on above: Chol less [...] By: #### F SH, T3F, CBC, TSH3, [id number], CMP, SHAMA, FE and TIBC, LIPID, CUU, [id number], UA #### [facility] [address] [place] [address] [place] #### ESTRADIOL, LH #### [facility] , Cholesterol in LDL Calc [Mas s/Vol]Ordered By: Jes Cruz on 11-01-2023 Cholesterol in LDL [Mass/Vol] 198 mg/dL High 0-100 [facility] Comment on above: LDL ATP III CLASSIFI CATIONLDL less than 100 mg/dL OptimalLDL 100-129 mg/dL Near or above optimalLDL 130-159 mg/dL Borderline highLDL 160-189 mg/dL HighLDL greater than 189 mg/dL Very high Cholesterol in VLDL Calc [Ma ss/Vol]Ordered By: Jes Cruz on 11-01-2023 Cholesterol in VLDL [Mass/Vol] 29 mg/dL [facility] Color of Urine by AutoOrdere d By: Jes Cruz on 11-01-2023 Color (U) Light-yellow Normal Yellow [facility] Comment on above: Order Comment: Reaso n for Exam Microscopic hematuria Name Collection Type:: Voided Performed By: #### F SH, T3F, CBC, TSH3, [id number], CMP, SHAMA, FE and TIBC, LIPID, CUU, [id number], UA #### [place] [address] [place] #### ESTRADIOL, LH #### [facility] , Complete Blood Count Auto Di ffon 11-01-2023 Mean Corpuscular HGB Conc 33.6 g/dL Normal 32.0-35.0 [facility] Comment on above: Order Comment: Reaso n for Exam Primary hypertension Performed By: #### F SH, T3F, CBC, TSH3, [id number], CMP, SHAMA, FE and TIBC, LIPID, CUU, [id number], UA #### [place] [address] [place] #### ESTRADIOL, LH #### [facility] , NRBC% 0.1 /100{WBC} Normal 0-0.5 [facility] Comment on above: Order Comment: Reaso n for Exam Primary hypertension Performed By: #### F SH, T3F, CBC, TSH3, [id number], CMP, SHAMA, FE and TIBC, LIPID, CUU, [id number], UA #### [place] [address] [place] #### ESTRADIOL, LH #### [facility] , [...] By: #### F SH, T3F, CBC, TSH3, [id number], CMP, SHAMA, FE and TIBC, LIPID, CUU, [id number], UA #### [place] [address] [place] #### ESTRADIOL, LH #### [facility] , GFR/1.73 sq M.predicted MDRD (S/P/Bld) [Vol rate/Area] mL/min/{1.73_m2} Normal [facility] Comment on above: Order Comment: Reaso n for Exam Primary hypertension Reason for Exam Low iron Reason for Exam Primary hypertension;Hypertriglyceridemia Reason for Exam Hot flashes Reason for Exam Vitamin D deficiency Performed By: #### F SH, T3F, CBC, TSH3, [id number], CMP, SHAMA, FE and TIBC, LIPID, CUU, [id number], UA #### [address] #### ESTRADIOL, LH #### [facility] , Creatinine [Mass/volume] in Serum or PlasmaOrdered By: Jes Cruz on 11-01-2023 Creatinine [Mass/Vol] 0.75 mg/dL Normal 0.60-1.20 [facility] Comment on above: Order Comment: Reaso n for Exam Primary hypertension Reason for Exam Low iron Reason for Exam Primary hypertension;Hypertriglyceridemia Reason for Exam Hot flashes Reason for Exam Vitamin D deficiency Performed By: #### F SH, T3F, CBC, TSH3, [id number], CMP, SHAMA, FE and TIBC, LIPID, CUU, [id number], UA #### [place] [address] [place] #### ESTRADIOL, LH #### [facility] , Erythrocyte distribution wid th [Ratio] by Automated countOrdered By: Jes Cruz on 11-01-2023 Erythrocyte distribution width (RBC) [Ratio] 13.1 % Normal 11.9-15.3 [facility] Comment on above: Order Comment: Reaso n for Exam Primary hypertension Performed By: #### F SH, T3F, CBC, TSH3, [id number], CMP, SHAMA, FE and TIBC, LIPID, CUU, [id number], UA #### [place] [address] [place] #### ESTRADIOL, LH #### [facility] , Erythrocytes [#/volume] in B lood by Automated countOrdered By: Jes Cruz on 11-01-2023 RBC (Bld) [#/Vol] 4.13 10*6/uL Normal 3.60-5.00 [facility] Comment on above: Order Comment: Reaso n for Exam Primary hypertension Performed By: #### F SH, T3F, CBC, TSH3, [id number], CMP, SHAMA, FE and TIBC, LIPID, CUU, [id number], UA #### [facility] [address] #### ESTRADIOL, LH #### [facility] , Estradiolon 11-01-2023 Estradiol <5.0 Normal . [facility] Comment on above: Order Comment: Reaso n for Exam Hot flashes Result Comment: Adul t Female Range Follicular phase 12.5 - 166.0 Ovulation phase 85.8 - 498.0 Luteal phase 43.8 - 211.0 Postmenopausal <6.0 - 54.7 1st trimester 215.0 - >4300.0 Mp ECLIA methodology Performed at: [facility] [facility] [address] [id number] Assistant Manager Retail: Kurtis Gallegos PhD, Phone: [phone] PERFORMED BY: [place] [address] PATHOLOGIST SPECIAL DEPUTY SHERIFF PALOMO WESLEY M.D. Performed By: #### F SH, T3F, CBC, TSH3, [id number], CMP, SHAMA, FE and TIBC, LIPID, CUU, [id number], UA ####[facility]#### ESTRADIOL, LH ####[facility] , Ferritin [Mass/volume] in Se rum or PlasmaOrdered By: Jes Cruz on 11-01-2023 Ferritin [Mass/Vol] 42.8 ng/mL Normal 11.0-306.8 [facility] Comment on above: Order Comment: Reaso n for Exam Primary hypertension Reason for Exam Low iron Reason for Exam Primary hypertension;Hypertriglyceridemia Reason for Exam Hot flashes Reason for Exam Vitamin D deficiency Performed By: #### F SH, T3F, CBC, TSH3, [id number], CMP, SHAMA, FE and TIBC, LIPID, CUU, [id number], UA #### [facility] [address] #### ESTRADIOL, LH #### [facility] , Folate [Mass/volume] in Seru m or PlasmaOrdered By: Jes Cruz on 11-01-2023 Folate [Mass/Vol] 10.3 ng/mL >5.9 [facility] Comment on above: Folate reference ran ge: >5.9 ng/mlThe WHO technical consultation on folate and vitamin [id number] has determined that folate concentrations lessthan 4 ng/ml are considered deficient. Follicle Stimulating Hormone on 11-01-2023 Follicle Stimulating Hormone 32.3 m[iU]/mL Normal [facility] Comment on above: Order [...] By: #### F SH, T3F, CBC, TSH3, [id number], CMP, SHAMA, FE and TIBC, LIPID, CUU, [id number], UA ####[facility] [id number] [place] [address] [place]#### ESTRADIOL, LH ####[facility] , Follitropin [Units/volume] i n Serum or PlasmaOrdered By: Jes Cruz on 11-01-2023 Follitropin Qn 32.3 m[IU]/mL [facility] Comment on above: FEMALE NORMALS (KEVEN ENOPAUSE) MID-FOLLICULAR PHASE: 3.9-8.8 mIU/mL MID-CYCLE PEAK: 4.5-22.5 mIU/mL MID-LUTEAL PHASE: 1.8-5.1 mIU/mLFEMALE NORMALS (POSTMENOPAUSE): 16.7-113.6 mIU/mLMALE NORMALS: 1.3-19.3 mIU/mL Glucose [Mass/volume] in Ser um or PlasmaOrdered By: Jes Cruz on 11-01-2023 Glucose [Mass/Vol] 95 mg/dL Normal 70-100 [facility] [...] for Exam Vitamin D deficiency Result Comment: [place] om Glucose Reference Range is dependent on time and content of last meal. Glucose of more than 200 mg/dL in a nonstressed, ambulatory subject supports the diagnosis of Diabetes Mellitus. ADA recommended reference range Performed By: #### F SH, T3F, CBC, TSH3, [id number], CMP, SHAMA, FE and TIBC, LIPID, CUU, [id number], UA #### [address] #### ESTRADIOL, LH #### [facility] , Glucose [Mass/volume] in Uri ne by Test stripOrdered By: Jes Cruz on 11-01-2023 Glucose Test strip (U) [Mass/Vol] Normal mg/dL Normal [facility] Hematocrit [Volume Fraction] of Blood by Automated countOrdered By: Jes Cruz on 11-01-2023 Hematocrit (Bld) [Volume fraction] 39.6 % Normal 34.0-46.4 [facility] Comment on above: Order Comment: Reaso n for Exam Primary hypertension Performed By: #### F SH, T3F, CBC, TSH3, [id number], CMP, SHAMA, FE and TIBC, LIPID, CUU, [id number], UA #### [facility] [address] [place] [address] [place] #### ESTRADIOL, LH #### [facility] , Hemoglobin Test strip Ql (U) Ordered By: Jes Cruz on 11-01-2023 Hemoglobin Ql (U) Negative Negative [facility] Hemoglobin [Mass/volume] in BloodOrdered By: Jes Cruz on 11-01-2023 Hemoglobin (Bld) [Mass/Vol] 13.3 g/dL Normal 11.8-15.4 [facility] Comment on above: Order Comment: Reaso n for Exam Primary hypertension Performed By: #### F SH, T3F, CBC, TSH3, [id number], CMP, SHAMA, FE and TIBC, LIPID, CUU, [id number], UA #### [facility] [address] [place] [address] [place] #### ESTRADIOL, LH #### [facility] , Iron [Mass/volume] in Serum or PlasmaOrdered By: Jes Tamezson on 11-01-2023 Iron [Mass/Vol] 106 ug/dL Normal 50-212 [facility] Comment on above: Order Comment: Reaso n for Exam Primary hypertension Reason for Exam Low iron Reason for Exam Primary hypertension;Hypertriglyceridemia Reason for Exam Hot flashes Reason for Exam Vitamin D deficiency Performed By: #### F SH, T3F, CBC, TSH3, [id number], CMP, SHAMA, FE and TIBC, LIPID, CUU, [id number], UA #### [facility] [address] [place] [address] [place] #### ESTRADIOL, LH #### [facility] , Iron and TIBC Profileon 10-04 % Iron Saturation 25.1 % Normal 20-50 [facility] Comment on above: Order Comment: Reaso n for Exam Primary hypertension Reason for Exam Low iron Reason for Exam Primary hypertension;Hypertriglyceridemia Reason for Exam Hot flashes Reason for Exam Vitamin D deficiency Performed By: #### F SH, T3F, CBC, TSH3, [id number], CMP, SHAMA, FE and TIBC, LIPID, CUU, [id number], UA #### [facility] [address] [place] [address] [place] #### ESTRADIOL, LH #### [facility] , Total Iron Binding Capacity 423 ug/dL Normal 255-450 [facility] Comment on above: Order Comment: Reaso n for Exam Primary hypertension Reason for Exam Low iron Reason for Exam Primary hypertension;Hypertriglyceridemia Reason for Exam Hot flashes Reason for Exam Vitamin D deficiency Performed By: #### F SH, T3F, CBC, TSH3, [id number], CMP, SHAMA, FE and TIBC, LIPID, CUU, [id number], UA #### [facility] [address] [place] [address] [place] #### ESTRADIOL, LH #### [facility] , Iron binding capacity [Mass/ volume] in Serum or PlasmaOrdered By: Jes Cruz on 11-01-2023 Iron binding capacity [Mass/Vol] 423 ug/dL 255-450 [facility] Iron saturation [Mass Fracti on] in Serum or PlasmaOrdered By: Jes Cruz on 11-01-2023 Iron saturation [Mass fraction] 25.1 % 20-50 [facility] Ketones [Presence] in Urine by Test stripOrdered By: Jes Cruz on 11-01-2023 Ketones Ql (U) Negative Normal Negative [facility] Comment on above: Order Comment: Reaso n for Exam Microscopic hematuria Name Collection Type:: Voided Performed By: #### F SH, T3F, CBC, TSH3, [id number], CMP, SHAMA, FE and TIBC, LIPID, CUU, [id number], UA #### [facility] [address] [place] [address] [place] #### ESTRADIOL, LH #### [facility] , Leukocyte esterase [Presence ] in Urine by Test stripOrdered By: Jes Cruz on 11-01-2023 Leukocyte esterase Test strip Ql (U) Negative Normal Negative [facility] Comment on above: Order Comment: Reaso n for Exam Microscopic hematuria Name Collection Type:: Voided Performed By: #### F SH, T3F, CBC, TSH3, [id number], CMP, SHAMA, FE and TIBC, LIPID, CUU, [id number], UA #### [facility] [address] #### ESTRADIOL, LH #### [facility] , Leukocytes [#/volume] correc ricardo for nucleated erythrocytes in Blood by Automated counOrdered By: Jes Cruz on 11-01-2023 WBC corrected for nucl RBC Auto (Bld) [#/Vol] 7.3 10*3/uL 3.8-11.6 [facility] Leukocytes [#/volume] in Blo od by Automated countOrdered By: Jes Cruz on 11-01-2023 WBC (Bld) [#/Vol] 7.3 10*3/uL Normal 3.8-11.6 [facility] Comment on above: Order Comment: Reaso n for Exam Primary hypertension Performed By: #### F SH, T3F, CBC, TSH3, [id number], CMP, SHAMA, FE and TIBC, LIPID, CUU, [id number], UA #### [facility] [address] #### ESTRADIOL, LH #### [facility] , Lipid Panelon 11-01-2023 LDL Cholesterol,Calculated 198 mg/dL High 0-100 [facility] Comment on above: Order Comment: [...] By: #### F SH, T3F, CBC, TSH3, [id number], CMP, SHAMA, FE and TIBC, LIPID, CUU, [id number], UA #### [facility] [address] [place] [address] #### ESTRADIOL, LH #### [facility] , Triglyceride w/Reflex 145 mg/dL Normal 0-149 [facility] Comment on above: Order [...] By: #### F SH, T3F, CBC, TSH3, [id number], CMP, SHAMA, FE and TIBC, LIPID, CUU, [id number], UA #### [address] #### ESTRADIOL, LH #### [facility] , VLDL CHOLESTEROL 29 mg/dL Normal [facility] Comment on above: Order Comment: Reaso n for Exam Primary hypertension Reason for Exam Low iron Reason for Exam Primary hypertension;Hypertriglyceridemia Reason for Exam Hot flashes Reason for Exam Vitamin D deficiency Performed By: #### F SH, T3F, CBC, TSH3, [id number], CMP, SHAMA, FE and TIBC, LIPID, CUU, [id number], UA #### [address] #### ESTRADIOL, LH #### [facility] , Luteinizing Hormoneon 2023 Luteinizing Hormone 20.7 m[iU]/mL Normal . [facility] Comment on above: Order Comment: Reaso n for Exam Hot flashes Result Comment: Adul t Female Range Follicular phase 2.4 - 12.6 Ovulation phase 14.0 - 95.6 Luteal phase 1.0 - 11.4 Postmenopausal 7.7 - 58.5 Performed By: #### F SH, T3F, CBC, TSH3, [id number], CMP, SHAMA, FE and TIBC, LIPID, CUU, [id number], UA ####[facility] [address] [place] [address] [place]#### ESTRADIOL, LH ####[facility] , Lymphocytes [#/volume] in Bl ood by Automated countOrdered By: Jes Cruz on 11-01-2023 Lymphocytes (Bld) [#/Vol] 2.0 10*3/uL Normal 1.00-4.8 [facility] Comment on above: Order Comment: Reaso n for Exam Primary hypertension Performed By: #### F SH, T3F, CBC, TSH3, [id number], CMP, SHAMA, FE and TIBC, LIPID, CUU, [id number], UA #### [place] [address] [place] #### ESTRADIOL, LH #### [facility] , Lymphocytes/100 leukocytes i n Blood by Automated countOrdered By: Jes Cruz on 11-01-2023 Lymphocytes/100 WBC (Bld) 28.0 % Normal . [facility] Comment on above: Order Comment: Reaso n for Exam Primary hypertension Performed By: #### F SH, T3F, CBC, TSH3, [id number], CMP, SHAMA, FE and TIBC, LIPID, CUU, [id number], UA #### [address] #### ESTRADIOL, LH #### [facility] , MCH [Entitic mass] by Automa ricardo countOrdered By: Jes Cruz on 11-01-2023 MCH (RBC) [Entitic mass] 32.3 pg Normal 24.7-34.3 [facility] Comment on above: Order Comment: Reaso n for Exam Primary hypertension Performed By: #### F SH, T3F, CBC, TSH3, [id number], CMP, SHAMA, FE and TIBC, LIPID, CUU, [id number], UA #### [place] [address] [place] #### ESTRADIOL, LH #### [facility] , MCHC Auto (RBC) [Mass/Vol]Or dered By: Jes Cruz on 11-01-2023 MCHC (RBC) [Mass/Vol] 33.6 g/dL 32.0-35.0 [facility] MCV [Entitic volume] by Auto mated countOrdered By: Jes Cruz on 11-01-2023 MCV (RBC) [Entitic vol] 96.0 fL Normal 80-100 [facility] Comment on above: Order Comment: Reaso n for Exam Primary hypertension Performed By: #### F SH, T3F, CBC, TSH3, [id number], CMP, SHAMA, FE and TIBC, LIPID, CUU, [id number], UA #### [facility] [address] [place] [address] #### ESTRADIOL, LH #### [facility] , Neutrophils [#/volume] in Bl ood by Automated countOrdered By: Jes Cruz on 11-01-2023 Neutrophils (Bld) [#/Vol] 4.3 10*3/uL Normal 1.8-7.7 [facility] Comment on above: Order Comment: Reaso n for Exam Primary hypertension Performed By: #### F SH, T3F, CBC, TSH3, [id number], CMP, SHAMA, FE and TIBC, LIPID, CUU, [id number], UA #### [facility] [address] [place] [address] [place] #### ESTRADIOL, LH #### [facility] , Nitrite Test strip Ql (U)Ord ered By: Jes Cruz on 11-01-2023 Nitrite Ql (U) Negative Negative [facility] No Panel InformationOrdered By: Jes Cruz on 11-01-2023 Estimated GFR (CKD-EPI) > 60.0 mL/Min [facility] Creatinine Clearance (Chem N/A [facility] Nucleated erythrocytes [Pres ence] in Blood by Automated countOrdered By: Jes Cruz on 11-01-2023 Nucleated RBC Auto Ql (Bld) 0.1 /100{WBC} 0-0.5 [facility] Platelet mean volume [Entiti c volume] in Blood by Automated countOrdered By: Jes Cruz on 11-01-2023 Platelet mean volume (Bld) [Entitic vol] 8.3 fL Normal 6.3-10.7 [facility] Comment on above: Order Comment: Reaso n for Exam Primary hypertension Performed By: #### F SH, T3F, CBC, TSH3, [id number], CMP, SHAMA, FE and TIBC, LIPID, CUU, [id number], UA #### [facility] [address] [place] [address] [place] #### ESTRADIOL, LH #### [facility] , Platelets [#/volume] in Bloo d by Automated countOrdered By: Jes Cruz on 11-01-2023 Platelets (Bld) [#/Vol] 384 10*3/uL Normal 150-450 [facility] Comment on above: Order Comment: Reaso n for Exam Primary hypertension Performed By: #### F SH, T3F, CBC, TSH3, [id number], CMP, SHAMA, FE and TIBC, LIPID, CUU, [id number], UA #### [facility] [address] [place] [address] [place] #### ESTRADIOL, LH #### [facility] , Potassium [Moles/volume] in Serum or PlasmaOrdered By: Jes Cruz on 11-01-2023 Potassium [Moles/Vol] 4.3 mmol/L Normal 3.5-5.1 [facility] Comment on above: Order Comment: Reaso n for Exam Primary hypertension Reason for Exam Low iron Reason for Exam Primary hypertension;Hypertriglyceridemia Reason for Exam Hot flashes Reason for Exam Vitamin D deficiency Performed By: #### F SH, T3F, CBC, TSH3, [id number], CMP, SHAMA, FE and TIBC, LIPID, CUU, [id number], UA #### [facility] [address] [place] [address] [place] #### ESTRADIOL, LH #### [facility] , Protein Test strip (U) [Mass /Vol]Ordered By: Jes Anthony on 11-01-2023 Protein (U) [Mass/Vol] Negative Negative [facility] Protein [Mass/volume] in Ser um or PlasmaOrdered By: Jes Cruz on 11-01-2023 Protein [Mass/Vol] 6.9 g/dL Normal 6.4-8.9 [facility] Comment on above: Order Comment: Reaso n for Exam Primary hypertension Reason for Exam Low iron Reason for Exam Primary hypertension;Hypertriglyceridemia Reason for Exam Hot flashes Reason for Exam Vitamin D deficiency Performed By: #### F SH, T3F, CBC, TSH3, [id number], CMP, SHAMA, FE and TIBC, LIPID, CUU, [id number], UA #### [facility] [address] [place] [address] #### ESTRADIOL, LH #### [facility] , Serum globulin measurement b y calculation (mass/volume)Ordered By: Jes Cruz on 11-01-2023 Globulin (S) [Mass/Vol] 2.6 g/dL [facility] Comment on above: Order Comment: Reaso n for Exam Primary hypertension Reason for Exam Low iron Reason for Exam Primary hypertension;Hypertriglyceridemia Reason for Exam Hot flashes Reason for Exam Vitamin D deficiency Performed By: #### F SH, T3F, CBC, TSH3, [id number], CMP, SHAMA, FE and TIBC, LIPID, CUU, [id number], UA #### [facility] [address] [place] [address] [place] #### ESTRADIOL, LH #### [facility] , Serum or plasma albumin/glob ulin mass ratioOrdered By: Jes Cruz on 11-01-2023 Albumin/Globulin [Mass ratio] 1.7 {ratio} [facility] Comment on above: Order Comment: Reaso n for Exam Primary hypertension Reason for Exam Low iron Reason for Exam Primary hypertension;Hypertriglyceridemia Reason for Exam Hot flashes Reason for Exam Vitamin D deficiency Performed By: #### F SH, T3F, CBC, TSH3, [id number], CMP, SHAMA, FE and TIBC, LIPID, CUU, [id number], UA #### [facility] [address] [place] [address] [place] #### ESTRADIOL, LH #### [facility] , Serum or plasma anion gap de terminationOrdered By: Jes Cruz on 11-01-2023 Anion gap [Moles/Vol] 10.8 mmol/L Normal 6.0-15.0 [facility] Comment on above: Order Comment: Reaso n for Exam Primary hypertension Reason for Exam Low iron Reason for Exam Primary hypertension;Hypertriglyceridemia Reason for Exam Hot flashes Reason for Exam Vitamin D deficiency Performed By: #### F SH, T3F, CBC, TSH3, [id number], CMP, SHAMA, FE and TIBC, LIPID, CUU, [id number], UA #### [facility] [address] [place] [address] [place] #### ESTRADIOL, LH #### [facility] , Serum or plasma estradiol (E 2) measurement (mass/volume)Ordered By: Jes Cruz on 11-01-2023 E2 [Mass/Vol] pg/mL . [facility] Comment on above: Adult Female Range F ollicular phase 12.5 - 166.0 Ovulation phase 85.8 - 498.0 Luteal phase 43.8 - 211.0 Postmenopausal <6.0 - 54.7 1st trimester 215.0 - >4300.0Roche ECLIA methodologyPerformed at: - [facility] [address] [id number] Director: Kurtis Gallegos PhD, Phone: [phone] Serum or plasma high density lipoprotein (HDL) cholesterol measurementOrdered By: Jes Cruz on 11-01-2023 Cholesterol in HDL [Mass/Vol] 58 mg/dL Normal 23-92 [facility] Comment on above: HDL CHOL ATP-III [...] By: #### F SH, T3F, CBC, TSH3, [id number], CMP, SHAMA, FE and TIBC, LIPID, CUU, [id number], UA #### [facility] [address] [place] [address] [place] #### ESTRADIOL, LH #### [facility] , Serum or plasma lutropin paramjit surement (units/volume)Ordered By: Jes Crzu on 11-01-2023 Lutropin Qn 20.7 m[IU]/mL . [facility] Comment on above: Adult Female Range F ollicular phase 2.4 - 12.6 Ovulation phase 14.0 - 95.6 Luteal phase 1.0 - 11.4 Postmenopausal 7.7 - 58.5 Serum or plasma total choles terol/high density lipoprotein (HDL) cholesterol mass ratOrdered By: Jes Cruz on 11-01-2023 Cholesterol.total/Chol esterol in HDL [Mass ratio] 4.9 {ratio} Normal <5.0 [facility] Comment on above: Order Comment: Reaso n for Exam Primary hypertension Reason for Exam Low iron Reason for Exam Primary hypertension;Hypertriglyceridemia Reason for Exam Hot flashes Reason for Exam Vitamin D deficiency Performed By: #### F SH, T3F, CBC, TSH3, [id number], CMP, SHAMA, FE and TIBC, LIPID, CUU, [id number], UA #### [facility] [address] [place] [address] [place] #### ESTRADIOL, LH #### [facility] , Sodium [Moles/volume] in Ser um or PlasmaOrdered By: Jes Cruz on 11-01-2023 Sodium [Moles/Vol] 140 mmol/L Normal 136-145 [facility] Comment on above: Order Comment: Reaso n for Exam Primary hypertension Reason for Exam Low iron Reason for Exam Primary hypertension;Hypertriglyceridemia Reason for Exam Hot flashes Reason for Exam Vitamin D deficiency Performed By: #### F SH, T3F, CBC, TSH3, [id number], CMP, SHAMA, FE and TIBC, LIPID, CUU, [id number], UA #### [facility] [address] [place] [address] [place] #### ESTRADIOL, LH #### [facility] , Specific gravity Test strip (U) [Rel density]Ordered By: Jes Cruz on 11-01-2023 Specific gravity (U) [Rel density] 1.014 1.001-1.030 [facility] Thyrotropin [Units/volume] i n Serum or PlasmaOrdered By: Jes Cruz on 11-01-2023 TSH Qn 1.49 m[IU]/L Normal 0.45-5.33 [facility] Comment on above: Order Comment: Reaso n for Exam Primary hypertension Reason for Exam Low iron Reason for Exam Primary hypertension;Hypertriglyceridemia Reason for Exam Hot flashes Reason for Exam Vitamin D deficiency Performed By: #### F SH, T3F, CBC, TSH3, [id number], CMP, SHAMA, FE and TIBC, LIPID, CUU, [id number], UA ####[facility] [address] [place] [address] [place]#### ESTRADIOL, LH ####[facility] , Transferrin [Mass/volume] in Serum or PlasmaOrdered By: Jes Cruz on 11-01-2023 Transferrin [Mass/Vol] 302 mg/dL Normal 203-362 [facility] Comment on above: Order Comment: Reaso n for Exam Primary hypertension Reason for Exam Low iron Reason for Exam Primary hypertension;Hypertriglyceridemia Reason for Exam Hot flashes Reason for Exam Vitamin D deficiency Performed By: #### F SH, T3F, CBC, TSH3, [id number], CMP, SHAMA, FE and TIBC, LIPID, CUU, [id number], UA #### [facility] [address] [place] [address] [place] #### ESTRADIOL, LH #### [facility] , Triglyceride [Mass/volume] i n Serum or PlasmaOrdered By: Jes Cruz on 11-01-2023 Triglyceride [Mass/Vol] 145 mg/dL 0-149 [facility] Comment on above: TRIG ATP III CLASSIF ICATIONTRIG less than 150 mg/dL NormalTRIG 150-199 mg/dL Borderline highTRIG 200-500 mg/dL High TRIG greater than 500 mg/dL Very highStandard traceable to the Center for Disease Conrtrol and Prevention (CDC) test method. Triiodothyronine (T3) Freeon 11-01-2023 Triiodothyronine (T3) Free 2.86 pg/mL Normal 2.50-3.90 [facility] Comment on above: Order Comment: Reaso n for Exam Hot flashes Result Comment: PERF ORMED BY: [place] [address] PATHOLOGIST SPECIAL DEPUTY SHERIFF PALOMO WESLEY M.D. Performed By: #### F SH, T3F, CBC, TSH3, [id number], CMP, SHAMA, FE and TIBC, LIPID, CUU, [id number], UA #### [facility] [address] [place] [address] #### ESTRADIOL, LH #### [facility] , Triiodothyronine (T3) Free [ Mass/volume] in Serum or PlasmaOrdered By: Jes Cruz on 11-01-2023 Free T3 [Mass/Vol] 2.86 pg/mL 2.50-3.90 [facility] Urea nitrogen [Mass/volume] in Serum or PlasmaOrdered By: Jes Cruz on 11-01-2023 Urea nitrogen [Mass/Vol] 17 mg/dL Normal 7-25 [facility] Comment on above: Order Comment: Reaso n for Exam Primary hypertension Reason for Exam Low iron Reason for Exam Primary hypertension;Hypertriglyceridemia Reason for Exam Hot flashes Reason for Exam Vitamin D deficiency Performed By: #### F SH, T3F, CBC, TSH3, [id number], CMP, SHAMA, FE and TIBC, LIPID, CUU, [id number], UA #### [facility] [address] [place] [address] [place] #### ESTRADIOL, LH #### [facility] , Urinalysison 11-01-2023 Bilirubin,Urine Negative Normal Negative [facility] Comment on above: Order Comment: Reaso n for Exam Microscopic hematuria Name Collection Type:: Voided Performed By: #### F SH, T3F, CBC, TSH3, [id number], CMP, SHAMA, FE and TIBC, LIPID, CUU, [id number], UA #### [place] [address] [place] #### ESTRADIOL, LH #### [facility] , Glucose Ql (U) Normal Normal Normal [facility] Comment on above: Order Comment: Reaso n for Exam Microscopic hematuria Name Collection Type:: Voided Performed By: #### F SH, T3F, CBC, TSH3, [id number], CMP, SHAMA, FE and TIBC, LIPID, CUU, [id number], UA #### [place] [address] [place] #### ESTRADIOL, LH #### [facility] , Nitrite,Urine Negative Normal Negative [facility] Comment on above: Order Comment: Reaso n for Exam Microscopic hematuria Name Collection Type:: Voided Performed By: #### F SH, T3F, CBC, TSH3, [id number], CMP, SHAMA, FE and TIBC, LIPID, CUU, [id number], UA #### [place] [address] [place] #### ESTRADIOL, LH #### [facility] , Occult Blood,Urine Negative Normal Negative [facility] Comment on above: Order Comment: Reaso n for Exam Microscopic hematuria Name Collection Type:: Voided Result Comment: PERF ORMED BY: [place] [address] PATHOLOGIST SPECIAL DEPUTY SHERIFF PALOMO WESLEY M.D. Performed By: #### F SH, T3F, CBC, TSH3, [id number], CMP, SHAMA, FE and TIBC, LIPID, CUU, [id number], UA #### [place] [address] [place] #### ESTRADIOL, LH #### [facility] , Protein,Urine Negative Normal Negative [facility] Comment on above: Order Comment: Reaso n for Exam Microscopic hematuria Name Collection Type:: Voided Performed By: #### F SH, T3F, CBC, TSH3, [id number], CMP, SHAMA, FE and TIBC, LIPID, CUU, [id number], UA #### [place] [address] [place] #### ESTRADIOL, LH #### [facility] , Specificy [place],Urine 1.014 Normal 1.001-1.030 [facility] Comment on above: Order Comment: Reaso n for Exam Microscopic hematuria Name Collection Type:: Voided Performed By: #### F SH, T3F, CBC, TSH3, [id number], CMP, SHAMA, FE and TIBC, LIPID, CUU, [id number], UA #### [place] [address] [place] #### ESTRADIOL, LH #### [facility] , Urobilinogen,Urine Normal Normal Normal [facility] Comment on above: Order Comment: Reaso n for Exam Microscopic hematuria Name Collection Type:: Voided Performed By: #### F SH, T3F, CBC, TSH3, [id number], CMP, SHAMA, FE and TIBC, LIPID, CUU, [id number], UA #### [place] [address] [place] #### ESTRADIOL, LH #### [facility] , Urine Cultureon 11-01-2023 Bacteria identified Cx Nom (U) Reason for Exam Microscopic hematuria Urine Reason for Exam: Microscopic hematuria : Urine <9,000 colonies/ml mixed bacterial skin contaminants 2 Days PERFORMED BY: [place] [address] PATHOLOGIST SPECIAL DEPUTY SHERIFF PALOMO WESLEY M.D. Normal [facility] Comment on above: Performed By: #### F SH, T3F, CBC, TSH3, [id number], CMP, SHAMA, FE and TIBC, LIPID, CUU, [id number], UA ####[facility]#### ESTRADIOL, LH ####[facility] , Urine appearanceOrdered By: Jes Cruz on 11-01-2023 Appearance (U) Clear Normal Clear [facility] Comment on above: Order Comment: Reaso n for Exam Microscopic hematuria Name Collection Type:: Voided Performed By: #### F SH, T3F, CBC, TSH3, [id number], CMP, SHAMA, FE and TIBC, LIPID, CUU, [id number], UA #### [place] [address] [place] #### ESTRADIOL, LH #### [facility] , Urine culture routineOrdered By: Jes Cruz on 11-01-2023 Bacteria identified Cx Nom (U) 2 Days [facility] Urobilinogen Test strip (U) [Mass/Vol]Ordered By: Jes Cruz on 11-01-2023 Urobilinogen (U) [Mass/Vol] Normal mg/dL Normal [facility] Vit. B12/Folate Profileon Folate 10.3 ng/mL Normal >5.9 [facility] Comment on above: Order [...] By: #### F SH, T3F, CBC, TSH3, [id number], CMP, SHAMA, FE and TIBC, LIPID, CUU, [id number], UA ####[facility] [place] [address] [place]#### ESTRADIOL, LH ####[facility] , Vitamin B12 ser/plasOrdered By: Jes Cruz on 11-01-2023 Cobalamin (Vitamin B12) [Mass/Vol] 208 pg/mL Normal 180-914 [facility] Comment on above: Order Comment: Reaso n for Exam Primary hypertension Reason for Exam Low iron Reason for Exam Primary hypertension;Hypertriglyceridemia Reason for Exam Hot flashes Reason for Exam Vitamin D deficiency Performed By: #### F SH, T3F, CBC, TSH3, [id number], CMP, SHAMA, FE and TIBC, LIPID, CUU, [id number], UA ####[place] [address] [address]#### ESTRADIOL, LH ####[facility] , Vitamin D 25 Hydroxy Totalon 11-01-2023 Vitamin D 25 Hydroxy Total 34.2 ng/mL Normal 30-100 [facility] Comment on above: Order [...] 2010; 96(7):1911-30. PERFORMED BY: [facility] [address] [place] [id number] PATHOLOGIST SPECIAL DEPUTY SHERIFF PALOMO WESLEY M.D. Performed By: #### F SH, T3F, CBC, TSH3, [id number], CMP, SHAMA, FE and TIBC, LIPID, CUU, [id number], UA ####[place] [address] [place] [id number] [facility]#### ESTRADIOL, LH ####[facility] , Vitamin D+Metabolites [Mass/ volume] in Serum or PlasmaOrdered By: Jes Cruz on 11-01-2023 Vitamin D+Metabolites [Mass/Vol] 34.2 ng/mL 30-100 [facility] Comment on above: VITAMIN D STATUS 25( [place])VITAMIN D RANGE (ng/mL) Deficient <20 Insufficient 20 to <30Sufficient 30 to 100Reference: Baron MF,Suze NC, Abdiel MAXWELL, et al. Evaluation,treatment, and prevention of vitamin D deficiency; an Endocrine Society clinical practice guideline. JCEM. 2010; 96(7):1911-30. pH of Urine by Test stripOrd ered By: Jes Cruz on 11-01-2023 pH (U) 6.5 [pH] Normal 5.0-9.0 [facility] Comment on above: Order Comment: Marilee worrell for Exam Microscopic hematuria Name Collection Type:: Voided Performed By: #### F SH, T3F, CBC, TSH3, [id number], CMP, SHAMA, FE and TIBC, LIPID, CUU, [id number], UA #### [facility] [address] [place] [address] #### ESTRADIOL, LH #### [facility] , Ambulatory [...] for choosing us for your care. Normal [facility] Provider Letteron 10-14-2023 Provider Letter Provider Letter October 14, 2023 ISELA CRAIG [address] [place] [id number] : 1970 To Whom It May Concern, Please excuse above patient from work. Date of Illness: From: 10/14/23 To: 10/14/23 May Return to Work On: Patient had an appointment on 10/14/23 with SHABNAM Bowens Restrictions: None Comments: Patient had an appointment with SHABNAM Bowens on 10/14/23 Sincerely, [facility] , option #3 Normal [facility] Urology Office/Clinic Noteon 10-14-2023 Urology Office/Clinic [...] E&M of Est. Patient Moderate 30-39 Min 43485 2. History of kidney stones (Z87.442: Personal [...] Urnls Dip Stick Auto w/o Microscopy POC 20075 Follow-up With When Contact Information [facility] [place] [address] Business (1) Additional Instructions: for [...] disease: Mother. (more content not included)... Normal [facility] Comment on above: Result Comment: Elec tronically Signed By: JES ROLLE PA-C\.guillermina\Date and Time Signed: 10/14/23 13:24 EDT Main OR Intraoperative Recor don 10-05-2023 Main OR Intraoperative Record Main OR Intraoperative Record IntraOp Document Type FTURO Summary Primary Physician: Alexandro PARTIDA MD Finalized Date/Time: 10/05/23 09:45:46 Pt. Name: ISELA CRAIG Maya/Sex: 1970 Female Med Rec #: [id number] Physician: Alexandro PARTIDA MD Financial #: [id number] Pt. Type: O Room/Bed: / Admit/Disch: 10/05/23 [...] Kendall R Role Performed Surgeon - Primary Overcoil Stepper - Primary Scrub - Primary Time In [...] 10/05/23 09:42 Estrella Aguirre 10/05/23 09:45 Normal [facility] Main OR Preoperative Recordo n 10-05-2023 Main OR Preoperative Record Main OR Preoperative Record Holding Area Document Type FTURO Summary Primary Physician: Alexandro PARTIDA MD Finalized Date/Time: 10/05/23 08:57:00 Pt. Name: RAFA BOOKERKASH Benjamín Trejo/Sex: 1970 Female Med Rec #: [id number] Physician: Alexandro PARTIDA MD Financial #: [id number] Pt. Type: O Room/Bed: / Admit/Disch: 10/05/23 [...] Yes Specimens Collected Last Modified By: SEAN Paagn RN, Ruthann 10/05/23 08:51:06 Finalized By: SEAN Pagan RN, Ruthann Document Signatures Signed By: SEAN Pagan RN, Ruthann 10/05/23 08:51 Ej RN, Glendy ESTRADA 10/05/23 08:57 Normal [facility] Operative Reporton Operative Report Operative Report [...] Rolle in a month or 2.. Normal [facility] Comment on above: Result Comment: Elec tronically Signed By: Alexandro PARTIDA MD\.br\Date and Time Signed: 10/05/23 09:46 EDT Provider Letteron 10-05-2023 Provider Letter Provider Letter October 05, 2023 To Whom It May Concern, Please excuse above patient from work. Date of Illness: From: 10/05/2023 To: 10/05/2023 May Return On:10/05/2023 Sincerely, [facility] [address], [address] [place] [address] [facility] Insurance Correspondenceon 0 09-28-2023 Insurance Correspondence [id number]#1. [email or web address] [facility] Coding Summary.on 09-23-2023 Coding Summary. GVBECzgx63BTk5lSb+PG hl YWQ+MS2SGRBnJ74prVCnaT 2nP1SCYKdOLtebTKIKLKhA BnZnofWyFD5ugIStIMEu IC8+MX0tBOFoPoepdCQhx5 L8jFF6J06ruz1uMTgrvZQ1 XQNmJjCmjkuub1lozKq3JE cuNmluOyBt CDNgjX39ARM7lF21Et39oV YwjSXuu8becCp8MxCjQTFa OQK6mFtyJFjau5AhNKTkM1 7lbCKzh7S1 BNXwkAujqZGnSjJlvYY3hC 2kXXplptybk8lefgluHpp1 ng28pJKxa8T0iIK7N9Tjky O6RPZyvAZg ZzwblNABbA1ldifmv1zopv hcYtAlYSHfPHz5GJg2HRQn nDbrJdStNO28YZU7CWPnyg RdO1EkXUFe tTnzLlL1v2G0Iz5RH1GYDi aiJ2CFGYOQGBsadEF+PC90 pp58E1EzAjnvDpc1RIGvBW R5aQK6cZ2q XTTkIJpwr6V5vWO1K7Wctr Wxkj6ni4fwXVXlDLqnB60z pMPdu6P8HOBdwSO2TTQwcT ewSkXsaU60 Oyc+SESywJmtt9KvWfrlf2 qto1znxVp0IbepAFZrwzZy dJpbYRN3x7KpVr9qUNWvzI Q5iXI2kN7l YxThReR5FGjxS083PsBmcQ XvWlgoY95zG4KenTJ+PHRy Zzt7JYLhpFvmPN2pY2MnJP RpbmctbGVm qCmwAJ8vFNPkzlydIWBowJ 9dAYHtQ7c2FdYbDnH1HFzy F6SeHZZtftvsZw24rD6uPf QvNcF4NFyp D1SzxiQ8FRJmsDKiYLupWX X3C12mj1J0SZPxPTVoHTH5 vGJ5fS3yoEvsbnvthFZbjC sgdmVydGlj ICbkASbbF740EAVyzWghJk NvZGluZyBEYXRlOiAgMDYv MjAvMjAyNDwvdGQ+PHRkIH P1eSexQSVc mXUuORfqJl8wqWflzSnjFK 8cZHArlavoZAFvvG9rMSFu xAFohFazNH4lVLCkclquj7 13ImDxOOF9 KAUkqKXgU0ZrtR3iScYdRE VzZGEgB1IfcQFiNImkR984 FEvtUmS8CGRedeVsJ4XmBG FsaWduOiB0 a0A6Zo5Cf2HejaxwL4JjgF ToEeNmAfjdIGf3I0PjVuax dHI+AG36ZVIvKH84NSm8BZ D5mRchFWer VQIqP2KtgR5lDpKiOKKmKJ RkOyc+PHRhYmxlIHdpZHRo VDitWYObXpYlmBjrPD0hHr 9yZGVyLWNv fYqrvWMoInHsu3ehHXYoPM ipQF0crFqfV9TqlMA4VBSu a8x3Sw56N70mF9SdxBS+PG WeoDL1aES7 gE9tWiPsTfX9REliZ905Kv DweBPdRoepx6edx5mnjNp8 KyZ7UTPpakLuqCrsMDW4y2 JmAk74Y97i IHdpZHRoPSIxNSUiIHZhbG ritq8iyU8qVv3+PGNvbCB3 pQD4cE6uUqUqVsN9CYnwI0 49InRvcCIv Pqyzj2xqv6nspBs6PqJvOA QzyvIabUzbWXJ4f8TrKu98 V7CzbYcqu5CnIhv5sn91xM Iax7L7fBV4 K5PrKEUdoaiynLOgzDlhNJ 4pABSlmwsrVMRufN2eJHYz T8z1WhYmOfI1MHjwP4Gits A8EUYflNVd SPUkpOYGyS3izcgff7ptxd aiVdHeAKXyBGl2LXs9LDZc uZpkGkTbFDP8JxE3AJJ4iJ IvbY6rlKrb dfgfgQ9mPdo+UCI3sWLydW ZXNH0wKlvzfMJ+PHRkIHN0 bFtkZRydAWQzwY8cQLNmX3 f2PmVtBsF4 QOlxQ5BpnpX8NJRiwAVpFT YzhVWCkG7untlgn2hmdnhe GlAsXCIpNLg3LVy6PAHfkU duOiBsZWZ0 LuS9RPP9kAKcyY8gkJuwpk yotF9vAwk+QmlydGggRGF0 AGw0U7VhCay9TXKnvGwnZQ 0ncGFkZGlu Yk9goQodxSolPK3fHZCfiq klu590SvYmy6nyNBKsuVCj BUtiTJI6X40nj3A6JMPlYM JcOVW9kKH8 rK6afEfchebseRLzpMpzhh ExzWpuUFczAZssY030NHPv jSkgStQiXHv2D8VeMvd5JY PxzUtpKT3a pGPeWBlzMq0ayDrzpSnwET 8qJWBpzehbh867IsTvz2tz FGQfjZOrKRxzVVQ6U95gm5 Z0BBDfOMIq YEL2dHC1jP3asArqexkztE VmdDsgdmVydGljYWwtYWxp I959DTKxtHfxVcXboFf9H5 BlSho4JXMg sGuyYD0yjNWhZImcVv7dqH tuzTudOY2rHEVssmryc081 KgSei8uuFTNlgMOmHQlkUC X7W23rw7L3 DLGjOLIbRBB7pTC0wB9kxX lnbjogbGVmdDsgdmVydGlj UZdmXRadV624ZDForDetDi BhdGllbnQg FQtxKTy3M7JgNldwxQH+PC 89ILAiAO30bKCdqZBwh7tj yPg0MzThXWCiPIU2yUcjPI gdo4JnDZFg V89zrNHha9R6JDSlsDhziS QpVcJieTS3lP7oBNfbtjzc q7wrwvozStitb5zvxw99bY 40S01cTGor ZHRoPSIzMCUiIHZhbGlnbj 1enK2fRu9+XHYlhYE7yLQ2 gT2pXZZsJnZ0XSxrZ742Tw RvcCIvPjxj i8dfc2fueLg0FgY5WZFlps DtgNukFOY4b0AsAu93A38g IHdpZHRoPSIyMCUiIHZhbG nqtj3qbD1b Ii8+EFFbzIA3hRU2aQ3wZc ScXuE0CXnzA418SjTpkJTv WcnjS13mS1AdmMV+PHRyPj e9HJNtxMth VL0okMSqTNvnAv1zEFI0Kq WqFfClLHqdI2KoXIVaanst yrzunSE5VBJyXNElvZ10Uj 9udDogMTBw tYLObO0rmnhpb8ddbcewAq BaJSPeWCe1SRn7GYHqtXoa IlFdRVB3RuY4FBN9gDUkkK 1hbGlnbjog cB9kJ7FpGNMbkpqaYt31mM 7bPqZyYyB0EFnuCxf+Q09S QklOLCBDSEVOTkkgSzwvdG Q+PHRkIHN0 bWjhARpnALRjeQ8gHVLyR4 g4YlWtNmJ2ZXfvD7SkWHAu zagxAr14jX7sLtNcAmA4FF qfT6OfemL0 IULnoRSbECgxMCA5C43ze5 Q4BQZdGCQuBMP1xUN1kF1r bGlnbjogbGVmdDsgdmVydG ljYWwtYWxp P507XLNznBajAzTsLyVjTp K1CcM7T7GrZqo4XWWieArf DT7zrMAoYGsmQg5mtUkwqF siHW8tZKKr tszfCKVnqH4bRTJvhYBvtN jcNH6gNHTbqvboe329HvFa UYR1XVRwtAJvY6NepS0gTn AjMDAwMDAw H7RlaEPpUImoJ008WTzfVh W4BKWryoLwS9RrSOPazVbg FrZ8h7B6Su73BuOTCJKvka wvdGQ+PHRk NWE4sXkbDHzwPDWlxC7tAZ XvD5f3XrQuOuF3KUguC0Xg CFTonywxVn11bM8tMtKgCr G2FRtnR6Zv yfI5ORHgpXHgOXjoEBP0N2 6li8S0CHZcSVTaIMG0qIV6 pF9deLyyrophlBUziVoihy VydGljYWwt CJoyU227IHYjrVblOlSrjG FsZTwvdGQ+FVOhLSS9kCkb NWtlWKRjsF5sQDBfX4d9Ci ZbCwU5RHyq E7LuONQvudvmMl21fF0yYj RoEjL7GQpyW5JvzdS4CWBj vCDuUDhsDRY2Y41lq0R2LM MwMDAwMDA7 qHM0hP4fgPxobyjmlTIriU bxloBfnQwxHNrkRDwoV292 WWSbeZgdPr71uXFjwMzoty Q5O1TbYzet dHI+FD77IWFeGP29yAZbiJ Kjj9flvDm7CrMxEULcVWE8 hCvdTTeck5TcQOIxH45cbQ Bhd9K8JEAo bYmyzHXiOdKhcOM4vD7jOV lsxzgdj7tlzlkwNdtmm8lt le53tK71J33lVMydPHEwJF IzMCUiIHZh jTzxas3gtV0lBv6+PGNvbC M9vEE1lO8yDlKcYgD3QNlj H546MrTjrZIrTljiz6bss5 xlhXv4JaBd GMAvvsRfqJkjIRD4e1YpHi 59S49yQPwgNQYcKTJrFSCs PKKblMozed5vwJ5eNh3+PC 5oj8njnl28 fS10zIT+ANBaHMP5cFqiXL zjPPIzbC7lKXadLxK1PKMs DnOvxP02eLLvYAztZw6ahA ixrVkyYD2w ZAIkjzter266SnEky5iyWN EsrWCfMBtnRIP4C86kq4M8 ORZoWPLmILX1nFD1zF5ocF lnbjogbGVm dDsgdmVydGljYWwtYWxpZ2 22NGKdxUabAfTxhVOfW4al ivYTSM6nKrnkjIR+PHRkIH Q4cLjkDNqz ROXdgZ3kXYFbR3f9DnUmGm I7PReyL3RijgO3PMYnyPOl PBJmgXPTfX1plrbll0yztc ogIzAwMDAw TRm7QFh9BICzvZoiYtEcVI V0YzI3WIO5xPXrdH2bjYpl sovdnV0fGfb+RklOOjwvdG Q+PHRkIHN0 oTgcISvyDNZwkY5lFGFsG7 e7GhXoZaF8THerQ4BbhoT4 ZLOtyDWxIBXqdSFHbA7zfy fwu5ynttrk MlUjDYFwRBo8MYh6DJJcuI yvOqKgNWT3OnN4CZT2dCZx hG1xkQubwrpfgI6bZhw+TV JOOjwvdGQ+ KPMxGEE5oOuvIAneMALxoV 1hSRFmD1g5SeSyExO9FLeu W5IlugD8VJJmpYTgGDInqG LImT5jtaph u6kfpigySgUrRWGkHHz5SP z6BKNywLjcSvDkWZC9CeF6 EKU8dBWtyC6jeLysqisknN 9wOyc+UGF5 JDU6VQ61EA49G9FsLsjszA FibGU+PHRhYmxlIHdpZHRo FNhpCYJcHgHdlPgoRW3bUc 9yZGVyLWNv bGxhcHNlOiBjb (more content not included)... Normal [facility] CBC AND AUTO DIFFon 09-18-19 24 ABSOLUTE BASOPHIL 0.0 X10E9/L Normal 0.0-0.2 [facility] Comment on above: Performed By: #### C KEYSHAWN KIRKPATRICK, 3040-3 #### [facility] ([id number]) [address] [place] [address] [id number] ABSOLUTE NEUTROPHIL 3.2 X10E9/L Normal 1.5-6.6 [facility] Comment on above: Performed By: #### C KAYA CMP, 3040-3 #### [facility] ([id number]) [address] [place] [address] 89434 Basophils/100 WBC (Bld) 0.7 % Normal [facility] Comment on above: Performed By: #### C KAYA CMP, 3040-3 #### [facility] ([id number]) [address] [place] [address] 66071 Eosinophils (Bld) [#/Vol] 0.1 10*3/uL Normal 0.0-0.4 [facility] Comment on above: Performed By: #### Terrie KIRKPATRICK CMP, 3039-06 #### [facility] ([id number]) [address] [place] [address] 22620 Eosinophils/100 WBC (Bld) 2.4 % Normal [facility] Comment on above: Performed By: #### Terrie KIRKPATRICK [facility], 3039-06 #### [facility] ([id number]) [address] [place] [address] 60258 Erythrocyte distribution width (RBC) [Ratio] 13.6 % Normal 11.5-15.0 [facility] Comment on above: Performed By: #### Terrie KIRKPATRICK CMP, 3039-06 #### [facility] ([id number]) [address] [place] [address] 49822 Hematocrit (Bld) [Volume fraction] 34.5 % Low 35-47 [facility] Comment on above: Performed By: #### Terrie KIRKPATRICK [facility], 3039-06 #### [facility] ([id number]) [address] [place] [address] 31421 Hemoglobin (Bld) [Mass/Vol] 11.6 g/dL Low 11.7-15.5 [facility] Comment on above: Performed By: #### Terrie KIRKPATRICK CMP, 3039-06 #### [facility] ([id number]) [address] [place] [address] 75868 Lymphocytes (Bld) [#/Vol] 1.9 10*3/uL Normal 1.0-3.5 [facility] Comment on above: Performed By: #### Terrie KIRKPATRICK CMP, 3039-06 #### [facility] ([id number]) [address] [place] [address] 55187 Lymphocytes/100 WBC (Bld) 30.9 % Normal [facility] Comment on above: Performed By: #### Terrie KIRKPATRICK CMP, 3039-06 #### [facility] ([id number]) [address] [place] [address] 99364 MCH (RBC) [Entitic mass] 33.1 pg Normal 27-34 [facility] Comment on above: Performed By: #### Terrie KIRKPATRICK CMP, 3039-06 #### [facility] ([id number]) [address] [place] [address] 57913 MCHC (RBC) [Mass/Vol] 33.6 g/dL Normal 32-36 [facility] Comment on above: Performed By: #### Terrie KIRKPATRICK CMP, 3039-06 #### [facility] ([id number]) [address] [place] [address] 43471 MCV (RBC) [Entitic vol] 99 fL Normal 80-100 [facility] Comment on above: Performed By: #### Terrie KIRKPATRICK CMP, 3039-06 #### [facility] ([id number]) [address] [place] [address] 97013 Monocytes (Bld) [#/Vol] 0.9 10*3/uL Normal 0-0.9 [facility] Comment on above: Performed By: #### Terrie KIRKPATRICK CMP, 3039-06 #### [facility] ([id number]) [address] [place] [address] 16766 Monocytes/100 WBC (Bld) 13.8 % Normal [facility] Comment on above: Performed By: #### Terrie KIRKPATRICK CMP, 3039-06 #### [facility] ([id number]) [address] [place] [address] 01539 Neutrophils/100 WBC (Bld) 52.2 % Normal [facility] Comment on above: Performed By: #### Terrie KIRKPATRICK CMP, 3039-06 #### [facility] ([id number]) [address] [place] [address] 83981 Platelet mean volume (Bld) [Entitic vol] 9.1 fL Normal 7-12 [facility] Comment on above: Performed By: #### Terrie BCA, CMP, 3040-3 #### [facility] ([id number]) [address] [place] [address] 03289 Platelets (Bld) [#/Vol] 291 10*3/uL Normal 150-450 [facility] Comment on above: Performed By: #### Terrie KIRKPATRICK, CMP, 304-3 #### [facility] ([id number]) [address] [place] [address] 59442 RBC COUNT 3.50 X10E12/L Low 3.80-5.20 [facility] Comment on above: Performed By: #### Terrie BCA, CMP, 3039-3 #### [facility] ([id number]) [address] [place] [address] 11528 WBC (Bld) [#/Vol] 6.2 10*3/uL Normal 4.0-11.0 [facility] Comment on above: Performed By: #### Terrie BCA, CMP, 3040-3 #### [facility] ([id number]) [address] [place] [address] 54684 COMPREHENSIVE METABOLIC PANE Hema 09-18-2023 Albumin [Mass/Vol] 3.8 g/dL Normal 3.2-5.3 [facility] Comment on above: Performed By: #### Terrie BCA, CMP, 3040-3 #### [facility] ([id number]) [address] [place] [address] 13098 ALP [Catalytic activity/Vol] 64 U/L Normal 39-130 [facility] Comment on above: Performed By: #### Terrie BCA, CMP, 0-3 #### [facility] ([id number]) [address] [place] [address] 35121 ALT [Catalytic activity/Vol] 18 U/L Normal 0-31 [facility] Comment on above: Performed By: #### Terrie KIRKPATRICK CMP, 3039-3 #### [facility] ([id number]) [address] [place] [address] 15535 Anion gap [Moles/Vol] 7 mmol/L Normal 5-15 [facility] Comment on above: Performed By: #### Terrie KIRKPATRICK CMP, 3039-3 #### [facility] ([id number]) [address] [place] [address] 32062 AST [Catalytic activity/Vol] 19 U/L Normal 0-41 [facility] Comment on above: Performed By: #### Terrie KIRKPATRICK CMP, 3039-3 #### [facility] ([id number]) [address] [place] [address] 01583 Bilirubin [Mass/Vol] 0.6 mg/dL Normal 0.3-1.2 [facility] Comment on above: Performed By: #### Terrie KIRKPATRICK [facility], 3 #### [facility] ([id number]) [address] [place] [address] 80039 Calcium [Mass/Vol] 8.4 mg/dL Low 8.5-10.5 [facility] Comment on above: Performed By: #### Terrie KIRKPATRICK CMP, 3039-3 #### [facility] ([id number]) [address] [place] [address] [place] [address] Chloride [Moles/Vol] 105 mmol/L Normal 98-109 [facility] Comment on above: Performed By: #### Terrie KIRKPATRICK CMP, 3039-3 #### [facility] ([id number]) [address] [place] [address] 57024 CO2 [Moles/Vol] 26 mmol/L Normal 22-32 [facility] Comment on above: Performed By: #### C KEYSHAWN KIRKPATRICK, 3040-3 #### [facility] ([id number]) [address] [place] [address] 42943 Creatinine [Mass/Vol] 1.03 mg/dL High 0.40-1.00 [facility] Comment on above: Result Comment: METH OD TRACEABLE TO IDMS STANDARD Performed By: #### C KEYSHAWN KIRKPATRICK, 3 #### [facility] ([id number]) [address] [place] [address] 61770 GFR/1.73 sq M.predicted among non-blacks MDRD (S/P/Bld) [Vol rate/Area] 65 mL/min/{1.73_m2} Normal >59 [facility] Comment on above: Result Comment: Reported eGFR is based on the CKD-EPI 2020 equation that does not use a race coefficient. Performed By: #### C KEYSHAWN KIRKPATRICK, 3 #### [facility] ([id number]) [address] [place] [address] 45068 Glucose [Mass/Vol] 99 mg/dL Normal 65-99 [facility] Comment on above: Performed By: #### C KAYA [facility], 3 #### [facility] ([id number]) [address] [place] [address] 88439 Potassium [Moles/Vol] 3.4 mmol/L Low 3.5-5.0 [facility] Comment on above: Performed By: #### C KEYSHAWN KIRKPATRICK, 3 #### [facility] ([id number]) [address] [place] [address] 44329 Protein [Mass/Vol] 6.9 g/dL Normal 6.0-8.0 [facility] Comment on above: Performed By: #### C KEYSHAWN KIRKPATRICK, 0-3 #### [facility] ([id number]) [address] [place] [address] 10145 Sodium [Moles/Vol] 138 mmol/L Normal 134-146 [facility] Comment on above: Performed By: #### C KEYSHAWN KIRKPATRICK, 3040-3 #### [facility] ([id number]) [address] [place] [address] Urea nitrogen [Mass/Vol] 10 mg/dL Normal 5-23 [facility] Comment on above: Performed By: #### C KEYSHAWN KIRKPATRICK, 3040-3 #### [facility] ([id number]) [address] [place] [address] BRAIN WO CONTon CT BRAIN WO [...] Johny Frances on 09/18/2023 9:21 PM Normal [facility] LIPASEon 09-18-2023 Lipase [Catalytic activity/Vol] 36 U/L Normal 17-40 [facility] Comment on above: Performed By: #### C KEYSHAWN KIRKPATRICK, 3040-3 #### [facility] ([id number]) [address] [place] [address] URN MACROSCOPIC NURon 2023 BILIRUBIN SHADY Negative Normal NEG [facility] Comment on above: Performed By: #### N UM #### [facility] ([id number]) [address] [place] [address] [place] [address] BLOOD/HGB SHADY Trace Abnormal NEG [facility] Comment on above: Performed By: #### N UM #### [facility] ([id number]) [address] [place] [address], [place] [address] GLUCOSE SHADY Negative Normal NEG [facility] Comment on above: Performed By: #### N UM #### [facility] ([id number]) [address] [place] [address] [place] [address] KETONES SHADY Negative Normal NEG [facility] Comment on above: Performed By: #### N UM #### [facility] ([id number]) [address] [place] [address] [place] [address] LEUKOCYTE ESTERASE SHADY Negative Normal NEG [facility] Comment on above: Performed By: #### N UM #### [facility] ([id number]) [address] [place] [address] [place] [address] NITRITE SHADY Negative Normal NEG [facility] Comment on above: Performed By: #### N UM #### [facility] ([id number]) [address] [place] [address] [place] [address] PH SHADY 6.0 Normal 5.0-8.5 [facility] Comment on above: Performed By: #### N UM #### [facility] ([id number]) [address] [place] [address] [place] [address] PROTEIN SHADY Negative Normal NEG [facility] Comment on above: Performed By: #### N UM #### [facility] ([id number]) [address] [place] [address] [place] [address] SPECIFIC GRAVITY SHADY 1.010 Normal 1.003-1.035 [facility] Comment on above: Performed By: #### N UM #### [facility] ([id number]) [address] [place] [address] [place] [address] UROBILINOGEN SHADY 0.2 eu/dL Normal <1.1 [facility] Comment on above: Performed By: #### N #### [facility] ([id number]) [address] [facility] [place] [address] Consent for Treatmenton 09-03 Consent for Treatment [id number]#1.0 0TIFF Normal [facility] Heart and Vascular Office/Cl inic Noteon [...] with voice recognition artificial intelligence software, specifically [employer] and or [employer]. Substitutions may have occurred due to the [...] History Ca (more content not included)... Normal [facility] Comment on above: Result Comment: Elec tronically Signed By: Deepak MOSES, Roosevelt Remy\.br\Date and Time Signed: 09/13/23 13:41 EDT Insurance Correspondenceon 0 09-13-2023 Insurance Correspondence [id number]#1.0 0TIFF [facility] Outside Labson 09-13-2023 Outside Labs [id number]#1. 00TIFF [facility] Outside Recordson 09-13-2023 Outside Records [id number]#1. 00TIFF [facility] Outside Records [id number]#1. 00TIFF [facility] Physician Orderon 09-13-2023 Physician Order [id number]#1. 00TIFF [facility] RAD - CT Reporton 08-31-2023 RAD - CT Report [id number]#1.00 TIFF [facility] Lab Reportson 08-17-2023 Lab Reports [id number]#1.0 0TIFF [facility] Urine Cytology ([facility])on 0 5-14-2024 Microscopic exam Cytology (U) [Interp] Diagnosis Info Invalid Interpretation Code [facility] Comment on above: Result Comment: A:Ur ine,Urine:Voided Interpretation - MicroScopic Description - Adequacy - Gross Description Site ID:A color Light Yellow fixative Alcohol Specimen designated Urine received in alcohol preservative and labeled with the patient?s name, consists of 60ml clear light yellow fluid. Electronically signed by : on: 08/17/2023 14:12:20 Performed By: #### 1 [id number] ####[facility] [address] [place] [address] Lab Reportson 08-11-2023 Lab Reports [id number]#1.00 TIFF Normal [facility] Physician Referralon 024 Physician Referral [id number] 03 [id number]#1.0 0TIFF Normal [facility] RAD - MISCon 08-11-2023 RAD - MISC [id number] 03 [id number]#1.0 0TIFF Normal [facility] RAD - Ultrasound Reporton RAD - Ultrasound Report [id number]#1.0 0TIFF Normal [facility] Screenson 08-11-2023 Screens [id number]#1.0 0TIFF Normal [facility] Ambulatory Visit Summaryon 0 08-10-2023 Ambulatory [...] JES ROLLE PA-C, URL When: Where: [address] [place] [address] [id number] Medications What How Much When Instructions Unchanged [...] make many (more content not included)... Normal [facility] Patient Educationon 08-10-19 Patient Education Pulmonary [...] require a prescription. You can also purchase uovx-bty-zlajafm medicines. Medicines may have nicotine in them [...] and encouragement. Call telephone quitlines, such as 0-938-XYXI-NOW, reach out to support groups, or work [...] quit smoki (more content not included)... Normal [facility] Urine Cytology ([facility])on 08-10-2023 Method of Extraction Voided Normal [facility] Comment on above: Performed By: #### 1 [id number] ####[facility] [address] [place] [address] Number of Jars 1 Invalid Interpretation Code [facility] Comment on above: Performed By: #### 1 [id number] ####[facility] [address] [facility] [place] [address] Specimen Urine Normal [facility] Comment on above: Performed By: #### 1 [id number] ####[facility] [address] [place] [address] Type of Service Technical Only Normal [facility] Comment on above: Performed By: #### 1 [id number] ####[facility] [address] [place] [address] Complete Blood Count Auto Di ffon 06-09-2023 Basophils (Bld) [#/Vol] 0.0 10*3/uL Normal 0.0-0.2 [facility] Comment on above: Order Comment: Reaso n for Exam Urinary frequency;Medication management;Anxiety;Microscopic Result Comment: PERF ORMED BY: [facility] [address] [place] [address] PATHOLOGIST SPECIAL DEPUTY SHERIFF PALOMO WESLEY M.D. Performed By: #### U RMACRERAT, FE and TIBC, LIPID, SHAMA, CMP, CBC, [id number], THYROID SC, LDLD ####[address]#### TOXASSURE, HIV SCREEN ####[facility] , Basophils/100 WBC (Bld) 0.3 % Normal . [facility] Comment on above: Order Comment: Reaso n for Exam Urinary frequency;Medication management;Anxiety;Microscopic Performed By: #### U RMACRERAT, FE and TIBC, LIPID, SHAMA, CMP, CBC, [id number], THYROID SC, LDLD ####[address]#### TOXASSURE, HIV SCREEN ####[facility] , Eosinophils (Bld) [#/Vol] 0.1 10*3/uL Normal 0.0-0.45 [facility] Comment on above: Order Comment: Reaso n for Exam Urinary frequency;Medication management;Anxiety;Microscopic Performed By: #### U RMACRERAT, FE and TIBC, LIPID, SHAMA, CMP, CBC, [id number], THYROID SC, LDLD ####[address]#### TOXASSURE, HIV SCREEN ####[facility] , Eosinophils/100 WBC (Bld) 1.7 % Normal . [facility] Comment on above: Order Comment: Reaso n for Exam Urinary frequency;Medication management;Anxiety;Microscopic Performed By: #### U RMACRERAT, FE and TIBC, LIPID, SHAMA, CMP, CBC, [id number], THYROID SC, LDLD ####[address]#### TOXASSURE, HIV SCREEN ####[facility] , Erythrocyte distribution width (RBC) [Ratio] 13.2 % Normal 11.9-15.3 [facility] Comment on above: Order Comment: Reaso n for Exam Urinary frequency;Medication management;Anxiety;Microscopic Performed By: #### U RMACRERAT, FE and TIBC, LIPID, SHAMA, CMP, CBC, [id number], THYROID SC, LDLD ####[address]#### TOXASSURE, HIV SCREEN ####[facility] , Hematocrit (Bld) [Volume fraction] 41.9 % Normal 34.0-46.4 [facility] Comment on above: Order Comment: Reaso n for Exam Urinary frequency;Medication management;Anxiety;Microscopic Performed By: #### U RMACRERAT, FE and TIBC, LIPID, SHAMA, CMP, CBC, [id number], THYROID SC, LDLD ####[address]#### TOXASSURE, HIV SCREEN ####[facility] , Hemoglobin (Bld) [Mass/Vol] 14.0 g/dL Normal 11.8-15.4 [facility] Comment on above: Order Comment: Reaso n for Exam Urinary frequency;Medication management;Anxiety;Microscopic Performed By: #### U RMACRERAT, FE and TIBC, LIPID, SHAMA, CMP, CBC, [id number], THYROID SC, LDLD ####[address]#### TOXASSURE, HIV SCREEN ####[facility] , Lymphocytes (Bld) [#/Vol] 2.2 10*3/uL Normal 1.00-4.8 [facility] Comment on above: Order Comment: Reaso n for Exam Urinary frequency;Medication management;Anxiety;Microscopic Performed By: #### U RMACRERAT, FE and TIBC, LIPID, SHAMA, CMP, CBC, [id number], THYROID SC, LDLD ####[address]#### TOXASSURE, HIV SCREEN ####[facility] , Lymphocytes/100 WBC (Bld) 30.2 % Normal . [facility] Comment on above: Order Comment: Reaso n for Exam Urinary frequency;Medication management;Anxiety;Microscopic Performed By: #### U RMACRERAT, FE and TIBC, LIPID, SHAMA, CMP, CBC, [id number], THYROID SC, LDLD ####[address]#### TOXASSURE, HIV SCREEN ####[facility] , MCH (RBC) [Entitic mass] 32.8 pg Normal 24.7-34.3 [facility] Comment on above: Order Comment: Reaso n for Exam Urinary frequency;Medication management;Anxiety;Microscopic Performed By: #### U RMACRERAT, FE and TIBC, LIPID, SHAMA, CMP, CBC, [id number], THYROID SC, LDLD ####[place] [address] [place]#### TOXASSURE, HIV SCREEN ####[facility] , MCV (RBC) [Entitic vol] 98.5 fL Normal 80-100 [facility] Comment on above: Order Comment: Reaso n for Exam Urinary frequency;Medication management;Anxiety;Microscopic Performed By: #### U RMACRERAT, FE and TIBC, LIPID, SHAMA, CMP, CBC, [id number], THYROID SC, LDLD ####[address]#### TOXASSURE, HIV SCREEN ####[facility] , Mean Corpuscular HGB Conc 33.3 g/dL Normal 32.0-35.0 [facility] Comment on above: Order Comment: Reaso n for Exam Urinary frequency;Medication management;Anxiety;Microscopic Performed By: #### U RMACRERAT, FE and TIBC, LIPID, SHAMA, CMP, CBC, [id number], THYROID SC, LDLD ####[address]#### TOXASSURE, HIV SCREEN ####[facility] , Monocytes (Bld) [#/Vol] 0.8 10*3/uL Normal 0.0-0.8 [facility] Comment on above: Order Comment: Reaso n for Exam Urinary frequency;Medication management;Anxiety;Microscopic Performed By: #### U RMACRERAT, FE and TIBC, LIPID, SHAMA, CMP, CBC, [id number], THYROID SC, LDLD ####[place] [address] [place]#### TOXASSURE, HIV SCREEN ####[facility] , Monocytes/100 WBC (Bld) 10.9 % Normal . [facility] Comment on above: Order Comment: Reaso n for Exam Urinary frequency;Medication management;Anxiety;Microscopic Performed By: #### U RMACRERAT, FE and TIBC, LIPID, SHAMA, CMP, CBC, [id number], THYROID SC, LDLD ####[place] [address] [place]#### TOXASSURE, HIV SCREEN ####[facility] , Neutrophils (Bld) [#/Vol] 4.1 10*3/uL Normal 1.8-7.7 [facility] Comment on above: Order Comment: Reaso n for Exam Urinary frequency;Medication management;Anxiety;Microscopic Performed By: #### U RMACRERAT, FE and TIBC, LIPID, SHAMA, CMP, CBC, [id number], THYROID SC, LDLD ####[facility]#### TOXASSURE, HIV SCREEN ####[facility] , Neutrophils/100 WBC (Bld) 56.9 % Normal . [facility] Comment on above: Order Comment: Reaso n for Exam Urinary frequency;Medication management;Anxiety;Microscopic Performed By: #### U RMACRERAT, FE and TIBC, LIPID, SHAMA, CMP, CBC, [id number], THYROID SC, LDLD ####[place] [address] [address]#### TOXASSURE, HIV SCREEN ####[facility] , NRBC% 0.1 /100{WBC} Normal 0-0.5 [facility] Comment on above: Order Comment: Reaso n for Exam Urinary frequency;Medication management;Anxiety;Microscopic Performed By: #### U RMACRERAT, FE and TIBC, LIPID, SHAMA, CMP, CBC, [id number], THYROID SC, LDLD ####[place] [address] [address]#### TOXASSURE, HIV SCREEN ####[facility] , Platelet mean volume (Bld) [Entitic vol] 9.0 fL Normal 6.3-10.7 [facility] Comment on above: Order Comment: Reaso n for Exam Urinary frequency;Medication management;Anxiety;Microscopic Performed By: #### U RMACRERAT, FE and TIBC, LIPID, SHAMA, CMP, CBC, [id number], THYROID SC, LDLD ####[place] [address] [address]#### TOXASSURE, HIV SCREEN ####[facility] , Platelets (Bld) [#/Vol] 314 10*3/uL Normal 150-450 [facility] Comment on above: Order Comment: Reaso n for Exam Urinary frequency;Medication management;Anxiety;Microscopic Performed By: #### U RMACRERAT, FE and TIBC, LIPID, SHAMA, CMP, CBC, [id number], THYROID SC, LDLD ####[address]#### TOXASSURE, HIV SCREEN ####[facility] , RBC (Bld) [#/Vol] 4.26 10*6/uL Normal 3.60-5.00 [facility] Comment on above: Order Comment: Reaso n for Exam Urinary frequency;Medication management;Anxiety;Microscopic Performed By: #### U RMACRERAT, FE and TIBC, LIPID, SHAMA, CMP, CBC, [id number], THYROID SC, LDLD ####[address]#### TOXASSURE, HIV SCREEN ####[facility] , WBC (Bld) [#/Vol] 7.2 10*3/uL Normal 3.8-11.6 [facility] Comment on above: Order Comment: Reaso n for Exam Urinary frequency;Medication management;Anxiety;Microscopic Performed By: #### U RMACRERAT, FE and TIBC, LIPID, SHAMA, CMP, CBC, [id number], THYROID SC, LDLD ####[address]#### TOXASSURE, HIV SCREEN ####[facility] , [...] FE and TIBC, LIPID, SHAMA, CMP, CBC, [id number], THYROID SC, LDLD ####[address]#### TOXASSURE, HIV SCREEN ####[facility] , Albumin/Globulin [Mass ratio] 1.4 {ratio} Normal [facility] Comment on above: Order Comment: Reaso n for Exam Urinary frequency;Medication management;Anxiety;Microscopic Reason for Exam Microscopic hematuria;Low iron Reason for Exam Bipolar affective disorder, currently depressed, moderate Reason for Exam Vitamin D deficiency Performed By: #### U RMACRERAT, FE and TIBC, LIPID, SHAMA, CMP, CBC, [id number], THYROID SC, LDLD ####[address]#### TOXASSURE, HIV SCREEN ####[facility] , ALP [Catalytic activity/Vol] 87 U/L Normal 34-104 [facility] Comment on above: Order Comment: Reaso n for Exam Urinary frequency;Medication management;Anxiety;Microscopic Reason for Exam Microscopic hematuria;Low iron Reason for Exam Bipolar affective disorder, currently depressed, moderate Reason for Exam Vitamin D deficiency Performed By: #### U RMACRERAT, FE and TIBC, LIPID, SHAMA, CMP, CBC, [id number], THYROID SC, LDLD ####[address]#### TOXASSURE, HIV SCREEN ####[facility] , ALT [Catalytic activity/Vol] 10 U/L Normal 7-52 [facility] Comment on above: Order Comment: Reaso n for Exam Urinary frequency;Medication management;Anxiety;Microscopic Reason for Exam Microscopic hematuria;Low iron Reason for Exam Bipolar affective disorder, currently depressed, moderate Reason for Exam Vitamin D deficiency Performed By: #### U RMACRERAT, FE and TIBC, LIPID, SHAMA, CMP, CBC, [id number], THYROID SC, LDLD ####[address]#### TOXASSURE, HIV SCREEN ####[facility] , Anion gap [Moles/Vol] 12.9 mmol/L Normal 6.0-15.0 [facility] Comment on above: Order Comment: Reaso n for Exam Urinary frequency;Medication management;Anxiety;Microscopic Reason for Exam Microscopic hematuria;Low iron Reason for Exam Bipolar affective disorder, currently depressed, moderate Reason for Exam Vitamin D deficiency Performed By: #### U RMACRERAT, FE and TIBC, LIPID, SHAMA, CMP, CBC, [id number], THYROID SC, LDLD ####[address]#### TOXASSURE, HIV SCREEN ####[facility] , AST [Catalytic activity/Vol] 12 U/L Low 13-39 [facility] Comment on above: Order Comment: Reaso n for Exam Urinary frequency;Medication management;Anxiety;Microscopic Reason for Exam Microscopic hematuria;Low iron Reason for Exam Bipolar affective disorder, currently depressed, moderate Reason for Exam Vitamin D deficiency Performed By: #### U RMACRERAT, FE and TIBC, LIPID, SHAMA, CMP, CBC, [id number], THYROID SC, LDLD ####[address]#### TOXASSURE, HIV SCREEN ####[facility] , Bilirubin [Mass/Vol] 0.2 mg/dL Low 0.3-1.0 [facility] Comment on above: Order Comment: Reaso n for Exam Urinary frequency;Medication management;Anxiety;Microscopic Reason for Exam Microscopic hematuria;Low iron Reason for Exam Bipolar affective disorder, currently depressed, moderate Reason for Exam Vitamin D deficiency Performed By: #### U RMACRERAT, FE and TIBC, LIPID, SHAMA, CMP, CBC, [id number], THYROID SC, LDLD ####[address]#### TOXASSURE, HIV SCREEN ####[facility] , Calcium [Mass/Vol] 9.5 mg/dL Normal 8.6-10.3 [facility] Comment on above: Order Comment: Reaso n for Exam Urinary frequency;Medication management;Anxiety;Microscopic Reason for Exam Microscopic hematuria;Low iron Reason for Exam Bipolar affective disorder, currently depressed, moderate Reason for Exam Vitamin D deficiency Performed By: #### U RMACRERAT, FE and TIBC, LIPID, SHAMA, CMP, CBC, [id number], THYROID SC, LDLD ####[place] [address] [address]#### TOXASSURE, HIV SCREEN ####[facility] , Chloride [Moles/Vol] 105 mmol/L Normal 98-107 [facility] Comment on above: Order Comment: Reaso n for Exam Urinary frequency;Medication management;Anxiety;Microscopic Reason for Exam Microscopic hematuria;Low iron Reason for Exam Bipolar affective disorder, currently depressed, moderate Reason for Exam Vitamin D deficiency Performed By: #### U RMACRERAT, FE and TIBC, LIPID, SHAMA, CMP, CBC, [id number], THYROID SC, LDLD ####[address]#### TOXASSURE, HIV SCREEN ####[facility] , CO2 [Moles/Vol] 25.0 mmol/L Normal 21.0-31.0 [facility] Comment on above: Order Comment: Reaso n for Exam Urinary frequency;Medication management;Anxiety;Microscopic Reason for Exam Microscopic hematuria;Low iron Reason for Exam Bipolar affective disorder, currently depressed, moderate Reason for Exam Vitamin D deficiency Performed By: #### U RMACRERAT, FE and TIBC, LIPID, SHAMA, CMP, CBC, [id number], THYROID SC, LDLD ####[address]#### TOXASSURE, HIV SCREEN ####[facility] , Creatinine [Mass/Vol] 0.63 mg/dL Normal 0.60-1.20 [facility] Comment on above: Order Comment: Reaso n for Exam Urinary frequency;Medication management;Anxiety;Microscopic Reason for Exam Microscopic hematuria;Low iron Reason for Exam Bipolar affective disorder, currently depressed, moderate Reason for Exam Vitamin D deficiency Performed By: #### U RMACRERAT, FE and TIBC, LIPID, SHAMA, CMP, CBC, [id number], THYROID SC, LDLD ####[address]#### TOXASSURE, HIV SCREEN ####[facility] , GFR/1.73 sq M.predicted MDRD (S/P/Bld) [Vol rate/Area] mL/min/{1.73_m2} Normal [facility] Comment on above: Order Comment: Reaso n for Exam Urinary frequency;Medication management;Anxiety;Microscopic Reason for Exam Microscopic hematuria;Low iron Reason for Exam Bipolar affective disorder, currently depressed, moderate Reason for Exam Vitamin D deficiency Performed By: #### U RMACRERAT, FE and TIBC, LIPID, SHAMA, CMP, CBC, [id number], THYROID SC, LDLD ####[address]#### TOXASSURE, HIV SCREEN ####[facility] , Globulin (S) [Mass/Vol] 2.9 g/dL Normal [facility] Comment on above: Order Comment: Reaso n for Exam Urinary frequency;Medication management;Anxiety;Microscopic Reason for Exam Microscopic hematuria;Low iron Reason for Exam Bipolar affective disorder, currently depressed, moderate Reason for Exam Vitamin D deficiency Performed By: #### U RMACRERAT, FE and TIBC, LIPID, SHAMA, CMP, CBC, [id number], THYROID SC, LDLD ####[address]#### TOXASSURE, HIV SCREEN ####[facility] , Glucose [...] FE and TIBC, LIPID, SHAMA, CMP, CBC, [id number], THYROID SC, LDLD ####[place] [address] [address]#### TOXASSURE, HIV SCREEN ####[facility] , Potassium [Moles/Vol] 3.9 mmol/L Normal 3.5-5.1 [facility] Comment on above: Order Comment: Reaso n for Exam Urinary frequency;Medication management;Anxiety;Microscopic Reason for Exam Microscopic hematuria;Low iron Reason for Exam Bipolar affective disorder, currently depressed, moderate Reason for Exam Vitamin D deficiency Performed By: #### U RMACRERAT, FE and TIBC, LIPID, SHAMA, CMP, CBC, [id number], THYROID SC, LDLD ####[place] [address] [address]#### TOXASSURE, HIV SCREEN ####[facility] , Protein [Mass/Vol] 7.1 g/dL Normal 6.4-8.9 [facility] Comment on above: Order Comment: Reaso n for Exam Urinary frequency;Medication management;Anxiety;Microscopic Reason for Exam Microscopic hematuria;Low iron Reason for Exam Bipolar affective disorder, currently depressed, moderate Reason for Exam Vitamin D deficiency Performed By: #### U RMACRERAT, FE and TIBC, LIPID, SHAMA, CMP, CBC, [id number], THYROID SC, LDLD ####[place] [address] [place]#### TOXASSURE, HIV SCREEN ####[facility] , Sodium [Moles/Vol] 139 mmol/L Normal 136-145 [facility] Comment on above: Order Comment: Reaso n for Exam Urinary frequency;Medication management;Anxiety;Microscopic Reason for Exam Microscopic hematuria;Low iron Reason for Exam Bipolar affective disorder, currently depressed, moderate Reason for Exam Vitamin D deficiency Performed By: #### U RMACRERAT, FE and TIBC, LIPID, SHAMA, CMP, CBC, [id number], THYROID SC, LDLD ####[facility]#### TOXASSURE, HIV SCREEN ####[facility] , Urea nitrogen [Mass/Vol] 14 mg/dL Normal 7-25 [facility] Comment on above: Order Comment: Reaso n for Exam Urinary frequency;Medication management;Anxiety;Microscopic Reason for Exam Microscopic hematuria;Low iron Reason for Exam Bipolar affective disorder, currently depressed, moderate Reason for Exam Vitamin D deficiency Performed By: #### U RMACRERAT, FE and TIBC, LIPID, SHAMA, CMP, CBC, [id number], THYROID SC, LDLD ####[place] [id number] [address]#### TOXASSURE, HIV SCREEN ####[facility] , Ferritinon 06-09-2023 Ferritin [Mass/Vol] 78.9 ng/mL Normal 11.0-306.8 [facility] Comment on above: Order Comment: Reaso n for Exam Primary hypertension Performed By: #### F SH, T3F, CBC, TSH3, [id number], CMP, SHAMA, FE and TIBC, LIPID, CUU, [id number], UA #### [address] #### ESTRADIOL, LH #### [facility] , HIV 1/O/2 Antigen/Antibodyon 06-09-2023 HIV Screen 4th Generation Non-Reactive Normal Non Reactive [facility] Comment on above: Order Comment: Reaso n for Exam Primary hypertension Result Comment: HIV Negative HIV-1/HIV-2 antibodies and HIV-1 p24 antigen were NOT detected. There is no laboratory evidence of HIV infection. Performed at: [facility] [address] [id number] Assistant Manager Retail: Kurtis Gallegos PhD, Phone: [phone] PERFORMED BY: [address] [place] [address] PATHOLOGIST SPECIAL DEPUTY SHERIFF PALOMO WESLEY M.D. Performed By: #### F SH, T3F, CBC, TSH3, [id number], CMP, SHAMA, FE and TIBC, LIPID, CUU, [id number], UA #### [place] [address] [place] #### ESTRADIOL, LH #### [facility] , Iron and TIBC Profileon 03-0 6-2023 % Iron Saturation 22.1 % Normal 20-50 [facility] Comment on above: Order Comment: Reaso n for Exam Primary hypertension Performed By: #### F SH, T3F, CBC, TSH3, [id number], CMP, SHAMA, FE and TIBC, LIPID, CUU, [id number], UA #### [place] [address] [place] #### ESTRADIOL, LH #### [facility] , Iron [Mass/Vol] 93 ug/dL Normal 50-212 [facility] Comment on above: Order Comment: Reaso n for Exam Primary hypertension Performed By: #### F SH, T3F, CBC, TSH3, [id number], CMP, SHAMA, FE and TIBC, LIPID, CUU, [id number], UA #### [place] [address] [place] #### ESTRADIOL, LH #### [facility] , Total Iron Binding Capacity 420 ug/dL Normal 255-450 [facility] Comment on above: Order Comment: Reaso n for Exam Primary hypertension Performed By: #### F SH, T3F, CBC, TSH3, [id number], CMP, SHAMA, FE and TIBC, LIPID, CUU, [id number], UA #### [place] [address] [place] #### ESTRADIOL, LH #### [facility] , Transferrin [Mass/Vol] 300 mg/dL Normal 203-362 [facility] Comment on above: Order Comment: Reaso n for Exam Primary hypertension Performed By: #### F SH, T3F, CBC, TSH3, [id number], CMP, SHAAM, FE and TIBC, LIPID, CUU, [id number], UA #### [facility] [address] [place] [address] [place] #### ESTRADIOL, LH #### [facility] , LDL Cholesterol Measuredon 0 06-09-2023 LDL Cholesterol Measured 122 mg/dL High 0-100 [facility] Comment on above: Order Comment: Reaso n for Exam Primary hypertension Result Comment: LDL ATP III CLASSIFICATION LDL less than 100 mg/dL Optimal LDL 100-129 mg/dL Near or above optimal LDL 130-159 mg/dL Borderline high LDL 160-189 mg/dL High LDL greater than 189 mg/dL Very high Performed By: #### F SH, T3F, CBC, TSH3, [id number], CMP, SHAMA, FE and TIBC, LIPID, CUU, [id number], UA #### [facility] [address] [place] [address] [place] #### ESTRADIOL, LH #### [facility] , Lipid Panelon 06-09-2023 Cholesterol [Mass/Vol] 216 mg/dL High 140-200 [facility] Comment on above: Order Comment: Reaso n for Exam Primary hypertension Result Comment: Chol less than 200 mg/dl low risk Chol 201-239 mg/dl borderline risk Chol 240 mg/dl and greater high risk Performed By: #### F SH, T3F, CBC, TSH3, [id number], CMP, SHAMA, FE and TIBC, LIPID, CUU, [id number], UA #### [facility] [address] [place] [address] [place] #### ESTRADIOL, LH #### [facility] , Cholesterol in HDL [Mass/Vol] 69 mg/dL Normal 23-92 [facility] Comment on above: Order Comment: Reaso n for Exam Primary hypertension Result Comment: HDL CHOL ATP-III CLASSIFICATION Cardiovascular Risk HDL > or equal to 60 mg/dL LOW HDL < 40 mg/dL HIGH Performed By: #### F SH, T3F, CBC, TSH3, [id number], CMP, SHAMA, FE and TIBC, LIPID, CUU, [id number], UA #### [facility] [address] [place] [address] [place] #### ESTRADIOL, LH #### [facility] , Cholesterol.total/Chol esterol in HDL [Mass ratio] 3.1 {ratio} Normal <5.0 [facility] Comment on above: Order Comment: Reaso n for Exam Primary hypertension Performed By: #### F SH, T3F, CBC, TSH3, [id number], CMP, SHAMA, FE and TIBC, LIPID, CUU, [id number], UA #### [place] [address] [place] #### ESTRADIOL, LH #### [facility] , LDL Cholesterol,Calculated Not performed Normal 0-100 [facility] Comment on above: Order Comment: Reaso n for Exam Primary hypertension Performed By: #### F SH, T3F, CBC, TSH3, [id number], CMP, SHAMA, FE and TIBC, LIPID, CUU, [id number], UA #### [place] [address] [place] #### ESTRADIOL, LH #### [facility] , Triglyceride w/Reflex 443 mg/dL High 0-149 [facility] Comment on above: Order [...] By: #### F SH, T3F, CBC, TSH3, [id number], CMP, SHAMA, FE and TIBC, LIPID, CUU, [id number], UA #### [facility] [address] [place] [address] [place] #### ESTRADIOL, LH #### [facility] , VLDL CHOLESTEROL 88 mg/dL Normal [facility] Comment on above: Order Comment: Reaso n for Exam Primary hypertension Performed By: #### F SH, T3F, CBC, TSH3, [id number], CMP, SHAMA, FE and TIBC, LIPID, CUU, [id number], UA #### [facility] [address] #### ESTRADIOL, LH #### [facility] , MicroAlb Creat Ratio,Uon Albumin DL <= 20 mg/L (U) [Mass/Vol] 2.1 mg/dL High 0.0-1.8 [facility] Comment on above: Order Comment: Reaso n for Exam Urinary frequency;Microscopic hematuria Performed By: #### U RMACRERAT, FE and TIBC, LIPID, SHAMA, CMP, CBC, [id number], THYROID SC, LDLD ####[facility]#### TOXASSURE, HIV SCREEN ####[facility] , Creatinine, Urine (Random) 66.0 mg/dL High 11.0-20.0 [facility] Comment on above: Order Comment: Reaso n for Exam Urinary frequency;Microscopic hematuria Performed By: #### U RMACRERAT, FE and TIBC, LIPID, SHAMA, CMP, CBC, [id number], THYROID SC, LDLD ####[facility]#### TOXASSURE, HIV SCREEN ####[facility] , Microalbumin/Creatinin e Ratio 31.0 mg/g High 0.0-30.0 [facility] Comment on above: Order Comment: Reaso n for Exam Urinary frequency;Microscopic hematuria Result Comment: 30-3 00 mg/g indicates an increased risk for diabetic nephropathy. Greater than 300 mg/g is consistent with clinical nephropathy. (Am. J. Kidney Disease 1995, 25:107) PERFORMED BY: [facility] [address] [place] [address] PATHOLOGIST SPECIAL DEPUTY SHERIFF PALOMO WESLEY M.D. Performed By: #### U RMACRERAT, FE and TIBC, LIPID, SHAMA, CMP, CBC, [id number], THYROID SC, LDLD ####[facility] [address]#### TOXASSURE, HIV SCREEN ####[facility] , THYROID SCREENon 06-09-2023 Free T4 [Mass/Vol] 0.68 ng/dL Normal 0.61-1.12 [facility] Comment on above: Order Comment: Reaso n for Exam Primary hypertension Performed By: #### F SH, T3F, CBC, TSH3, [id number], CMP, SHAMA, FE and TIBC, LIPID, CUU, [id number], UA #### [facility] [address] [place] [address] [place] #### ESTRADIOL, LH #### [facility] , TSH Qn 2.09 m[IU]/L Normal 0.45-5.33 [facility] Comment on above: Order Comment: Reaso n for Exam Primary hypertension Performed By: #### F SH, T3F, CBC, TSH3, [id number], CMP, SHAMA, FE and TIBC, LIPID, CUU, [id number], UA #### [facility] [address] [place] [address] [place] #### ESTRADIOL, LH #### [facility] , Toxassure, Urineon Toxassure, Urine Summary FINAL Normal . [facility] Comment on above: Order [...] test is not intended to distinguish between dqwnd-5-ejzrdzoxodxyqrdzvair, the predominant form of THC in most herbal or marijuana-based products, and xiktg-5-jgcutijglikmqnevzoyz. Gabapentin PRESENT Cyclobenzaprine PRESENT Desmethylcyclobenzaprine PRESENT Desmethylcyclobenzaprine is an expected metabolite of cyclobenzaprine. Naproxen PRESENT ===== Test Result Flag Units Ref Range Creatinine 63 mg/dL >=20 ===== Declared Medications: Medication list was not provided. ===== For clinical consultation, please call . ===== Performed at: [employer] [address] [place] [id number] Assistant Manager Retail: Ana Munoz [facility], Phone: [phone] PERFORMED BY: [place] [address] PATHOLOGIST SPECIAL DEPUTY SHERIFF PALOMO WESLEY M.D. Performed By: #### F SH, T3F, CBC, TSH3, [id number], CMP, SHAMA, FE and TIBC, LIPID, CUU, [id number], UA #### [address] #### ESTRADIOL, LH #### [facility] , Vitamin D 25 Hydroxy Totalon 06-09-2023 Vitamin D 25 Hydroxy Total 19.8 ng/mL Low 30-100 [facility] Comment on above: Order Comment: Reaso n for Exam Primary hypertension Result Comment: IDRIS MIN D STATUS 25(OH)VITAMIN D RANGE (ng/mL) Deficient <20 Insufficient 20 to <30 Sufficient 30 to 100 Reference: Baron MF,Suze NC, Khushi-Jeffy MAXWELL, et al. Evaluation,treatment, and prevention of vitamin D deficiency; an Endocrine Society clinical practice guideline. JCEM. 2011 Oct; 96(7):1911-30. PERFORMED BY: [place] [address] PATHOLOGIST SPECIAL DEPUTY SHERIFF PALOMO WESLEY M.D. Performed By: #### F SH, T3F, CBC, TSH3, [id number], CMP, SHAMA, FE and TIBC, LIPID, CUU, [id number], UA #### [facility] [address] #### ESTRADIOL, LH #### [facility] , Formson 04-26-2023 Forms [id number]. 00TIFF Normal [facility] NM Myocardial Spect Rest/Str ess 1 [...] Stress Dose (mCi Tc99M Cardiolite): 28.9 Normal [facility] Stress EKG Tracingson 2023 Stress EKG Tracings [id number] 02 [id number]#1. 00TIFF Normal [facility] Consent for Treatmenton 04-05 Consent for Treatment [id number] 0TIFF Hannah Bravo [facility] US renal BIon 04-01-2023 US renal BI [facility] Main [address] [address] Ultrasound Report Signed Patient: Isela Craig MR#: [id number] : 1970 Acct:[id number] Age/Sex: 52 / F ADM Date: 04/01/23 Loc: UL Room: Type: [facility] Attending Dr: Jes Cruz CLINICAL TECH-C Ordering Provider: Jes Cruz Date of Service: 04/01/23 US/US renal BI: R31.9 ([id number]) US/US bladder: R31.9 Copies to: Jes Cruz [...] Johns Jr., DShyanneOShyanne04/01/2023 3:16 PM Dictation Location: [place] [address] Tech: Chloe Delcid Transcribed By: FLORES 04/01/23 1516 Dictated By: Freddy Johns Jr, DO 04/01/23 151 Signed By: 04/01/23 1516 Normal [facility] XR KUBon 04-01-2023 XR [address]UB [address] [address] XRay Report Signed Patient: Isela Craig MR#: [id number] : 1970 Acct:[id number] Age/Sex: 52 / F ADM Date: 04/01/23 Loc: UL Room: Type: [facility] Attending Dr: Jes Cruz CLINICAL TECH-C Copies to: Jes Cruz Ordering Provider: Jes [...] Shae Guzman M.D.04/01/2023 3:38 PM Dictation Location: [facility]- Transcribed By: [facility] 04/01/23 1538 Dictated By: Shae Guzman MD 04/01/23 1536 Signed By: 04/01/23 1538 Normal [facility] COVID Quick Testingon 2022 Result Negative [employer] Other Quick Strepon 12-15-2022 S. pyogenes Org specific cx Ql (Throat) Negative [employer] Other Quick Strep [employer] Other COVID + FLU Quick Testingon 10-14-2022 SARS-CoV-2 (COVID-19) RNA AISSATOU+probe Ql (Unsp spec) Negative [employer] Other COVID + FLU Quick Testing Negative [employer] Other Quick Strepon 10-14-2022 S. pyogenes Org specific cx Ql (Throat) Negative [employer] Other Quick Strep [employer] Other Office Visit (Cardiology)on 06-24-2022 Follow-up visit Diagnoses/Problems Assessed Costochondritis (733.6) (M94.0) Palpitations (785.1) (R00.2) For the most part brief and fleeting, seem most consistent with PVC. Coronary artery disease involving [place] coronary artery of [place] heart without angina pectoris (414.01) (I25.10) Mar [...] contact the office if new symptoms arise. CLINICAL TECH 6 weeks Chief Complaint Add on d/t [...] department evaluation. Last week she presented to [facility] due to chest pain and dizziness. [...] and fluttering . 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 Due to blood pressure and palpitations [...] Recorded: 24Jun2022 09:32AM Heart Rate88, R Radial Tkvezpeq655, RUE, Si (more content not included)... Normal [employer] Tobacco Screening.on 023 Adult depression screening assessment No [facility] 250 DO Work Phone: Tobacco use status [facility] a) Yes [facility] 250 DO Work Phone: Tobacco Screening. Yes [facility] 250 DO Work Phone: Alanine aminotransferase [En zymatic activity/volume] in Serum or PlasmaOrdered By: Jes Cruz on 06-19-2022 ALT [Catalytic activity/Vol] 11 U/L 7-52 [facility] Albumin [Mass/volume] in Ser um or Plasma by Bromocresol green (BCG) dye binding methoOrdered By: Jes Cruz on 06-19-2022 Albumin BCG dye [Mass/Vol] 4.0 g/dL 3.5-5.7 [facility] Alkaline phosphatase [Enzyma tic activity/volume] in Serum or PlasmaOrdered By: Jes Cruz on 06-19-2022 ALP [Catalytic activity/Vol] 70 U/L 34-104 [facility] Aspartate aminotransferase [ Enzymatic activity/volume] in Serum or PlasmaOrdered By: Jes Cruz on 06-19-2022 AST [Catalytic activity/Vol] 11 U/L 13-39 [facility] Basophils Auto (Bld) [#/Vol] Ordered By: Jes Cruz on 06-19-2022 Basophils (Bld) [#/Vol] 0.1 10*3/uL 0.0-0.2 [facility] Basophils/100 WBC Auto (Bld) Ordered By: Jes Cruz on 06-19-2022 Basophils/100 WBC (Bld) 1.2 % . [facility] Bilirubin.total [Mass/volume ] in Serum or PlasmaOrdered By: Jes Cruz on 06-19-2022 Bilirubin [Mass/Vol] 0.2 mg/dL 0.3-1.0 [facility] C reactive protein [Mass/vol ume] in Serum or Plasma by High sensitivity methodOrdered By: Jes Cruz on 06-19-2022 CRP High sensitivity method [Mass/Vol] 0.4 mg/L 0.0-0.9 [facility] Comment on above: Cardiovascular Risk Classification [...] on 06-19-2022 CO2 [Moles/Vol] 24.4 mmol/L 21.0-31.0 [facility] Chloride [Moles/volume] in S shanna or PlasmaOrdered By: Jes Cruz on 06-19-2022 Chloride [Moles/Vol] 108 mmol/L 98-107 [facility] Cholesterol [Mass/volume] in Serum or PlasmaOrdered By: Jes Cruz on 06-19-2022 Cholesterol [Mass/Vol] 190 mg/dL 140-200 [facility] Comment on above: Chol less than 200 m g/dl low riskChol 201-239 mg/dl borderline riskChol 240 mg/dl and greater high risk Cholesterol in LDL Calc [Mas s/Vol]Ordered By: Jes Cruz on 06-19-2022 Cholesterol in LDL [Mass/Vol] 74 mg/dL 0-100 [facility] Comment on above: LDL ATP III CLASSIFI CATIONLDL less than 100 mg/dL OptimalLDL 100-129 mg/dL Near or above optimalLDL 130-159 mg/dL Borderline highLDL 160-189 mg/dL HighLDL greater than 189 mg/dL Very high Cholesterol in VLDL Calc [Ma ss/Vol]Ordered By: Jes Cruz on 06-19-2022 Cholesterol in VLDL [Mass/Vol] 48 mg/dL [facility] Creatine kinase [Enzymatic a ctivity/volume] in Serum or PlasmaOrdered By: Jes Cruz on 06-19-2022 CK [Catalytic activity/Vol] 35 U/L 30-223 [facility] Creatine kinase.MB [Mass/vol ume] in Serum or PlasmaOrdered By: Jes Cruz on 06-19-2022 CK.MB [Mass/Vol] 2.3 ng/mL 0.6-6.3 [facility] Creatinine [Mass/volume] in Serum or PlasmaOrdered By: Jes Cruz on 06-19-2022 Creatinine [Mass/Vol] 0.79 mg/dL 0.60-1.20 [facility] Eosinophils Auto (Bld) [#/Vo l]Ordered By: Jes Cruz on 06-19-2022 Eosinophils (Bld) [#/Vol] 0.2 10*3/uL 0.0-0.45 [facility] Eosinophils/100 WBC Auto (Bl d)Ordered By: Jes Cruz on 06-19-2022 Eosinophils/100 WBC (Bld) 2.5 % . [facility] Erythrocyte distribution wid th Auto (RBC) [Ratio]Ordered By: Jes Cruz on 06-19-2022 Erythrocyte distribution width (RBC) [Ratio] 13.2 % 11.9-15.3 [facility] Globulin Calc (S) [Mass/Vol] Ordered By: Jes Cruz on 06-19-2022 Globulin (S) [Mass/Vol] 2.3 g/dL [facility] Glucose [Mass/volume] in Ser um or [...] (Bld) [Volume fraction] 39.3 % 34.0-46.4 [facility] Hemoglobin [Mass/volume] in BloodOrdered By: Jes Cruz on 06-19-2022 Hemoglobin (Bld) [Mass/Vol] 13.1 g/dL 11.8-15.4 [facility] Laboratory - Chemistry and C hemistry - challengeOrdered By: Jes Cruz on 06-19-2022 GFR/1.73 sq M.predicted MDRD (S/P/Bld) [Vol rate/Area] mL/min/{1.73_m2} [facility] Leukocytes [#/volume] correc ricardo for nucleated erythrocytes in Blood by Automated counOrdered By: Jes Cruz on 06-19-2022 WBC corrected for nucl RBC Auto (Bld) [#/Vol] 8.2 10*3/uL 3.8-11.6 [facility] Lymphocytes Auto (Bld) [#/Vo l]Ordered By: Jes Cruz on 06-19-2022 Lymphocytes (Bld) [#/Vol] 2.5 10*3/uL 1.00-4.8 [facility] Lymphocytes/100 WBC Auto (Bl d)Ordered By: Jes Cruz on 06-19-2022 Lymphocytes/100 WBC (Bld) 30.3 % . [facility] MCH Auto (RBC) [Entitic mass ]Ordered By: Jes Cruz on 06-19-2022 MCH (RBC) [Entitic mass] 33.2 pg 24.7-34.3 [facility] MCHC Auto (RBC) [Mass/Vol]Or dered By: Jes Cruz on 06-19-2022 MCHC (RBC) [Mass/Vol] 33.4 g/dL 32.0-35.0 [facility] MCV Auto (RBC) [Entitic vol] Ordered By: Jes Cruz on 06-19-2022 MCV (RBC) [Entitic vol] 99.5 fL 80-100 [facility] Monocytes Auto (Bld) [#/Vol] Ordered By: Jes Cruz on 06-19-2022 Monocytes (Bld) [#/Vol] 1.0 10*3/uL 0.0-0.8 [facility] Monocytes/100 WBC Auto (Bld) Ordered By: Jes Cruz on 06-19-2022 Monocytes/100 WBC (Bld) 11.6 % . [facility] Natriuretic peptide B [Mass/ Vol]Ordered By: Jes Cruz on 06-19-2022 Natriuretic peptide B (Bld) [Mass/Vol] 87.0 pg/mL 5-100 [facility] Neutrophils Auto (Bld) [#/Vo l]Ordered By: Jes Cruz on 06-19-2022 Neutrophils (Bld) [#/Vol] 4.5 10*3/uL 1.8-7.7 [facility] Neutrophils/100 WBC Auto (Bl d)Ordered By: Jes Cruz on 06-19-2022 Neutrophils/100 WBC (Bld) 54.4 % . [facility] No Panel InformationOrdered By: eJs Cruz on 06-19-2022 Pharmacy Creatinine Clearance (Chem N/A [facility] Nucleated erythrocytes [Pres ence] in Blood by Automated countOrdered By: Jes Cruz on 06-19-2022 Nucleated RBC Auto Ql (Bld) 0.2 /100{WBC} 0-0.5 [facility] Platelet mean volume Auto (B ld) [Entitic vol]Ordered By: Jse Cruz on 06-19-2022 Platelet mean volume (Bld) [Entitic vol] 10.2 fL 6.3-10.7 [facility] Platelets Auto (Bld) [#/Vol] Ordered By: Jes Cruz on 06-19-2022 Platelets (Bld) [#/Vol] 297 10*3/uL 150-450 [facility] Potassium [Moles/volume] in Serum or PlasmaOrdered By: Jes Cruz on 06-19-2022 Potassium [Moles/Vol] 4.3 mmol/L 3.5-5.1 [facility] Protein [Mass/volume] in Ser um or PlasmaOrdered By: Jes Cruz on 06-19-2022 Protein [Mass/Vol] 6.3 g/dL 6.4-8.9 [facility] RBC Auto (Bld) [#/Vol]Ordere d By: Jes Cruz on 06-19-2022 RBC (Bld) [#/Vol] 3.95 10*6/uL 3.60-5.00 [facility] Serum or plasma albumin/glob ulin mass ratioOrdered By: Jes Cruz on 06-19-2022 Albumin/Globulin [Mass ratio] 1.7 {ratio} [facility] Serum or plasma anion gap de terminationOrdered By: Jes Cruz on 06-19-2022 Anion gap [Moles/Vol] 10.9 mmol/L 6.0-15.0 [facility] Serum or plasma creatine kin ase MB (CKMB)/total creatine kinase (CK) ratio by calculaOrdered By: Jes Cruz on 06-19-2022 CK.MB Calc [Catalytic fraction] 6.5 % 0.00-2.50 [facility] Serum or plasma high density lipoprotein (HDL) cholesterol measurementOrdered By: Jes Cruz on 06-19-2022 Cholesterol in HDL [Mass/Vol] 68 mg/dL 35-85 [facility] Comment on above: HDL CHOL ATP-III CLA SSIFICATION Cardiovascular RiskHDL > or equal to 60 mg/dL LOWHDL < 40 mg/dL HIGH Serum or plasma total choles terol/high density lipoprotein (HDL) cholesterol mass ratOrdered By: Jes Cruz on 06-19-2022 Cholesterol.total/Chol esterol in HDL [Mass ratio] 2.8 {ratio} <5.0 [facility] Sodium [Moles/volume] in Ser um or PlasmaOrdered By: Jes Cruz on 06-19-2022 Sodium [Moles/Vol] 139 mmol/L 136-145 [facility] Thyrotropin [Units/volume] i n Serum or PlasmaOrdered By: Jes Cruz on 06-19-2022 TSH Qn 2.33 m[IU]/L 0.45-5.33 [facility] Thyroxine (T4) free [Mass/vo lume] in Serum or PlasmaOrdered By: Jes Cruz on 06-19-2022 Free T4 [Mass/Vol] 0.63 ng/dL 0.61-1.12 [facility] Triglyceride [Mass/volume] i n Serum or PlasmaOrdered By: Jes Cruz on 06-19-2022 Triglyceride [Mass/Vol] 241 mg/dL 0-149 [facility] Comment on above: TRIG ATP III CLASSIF ICATIONTRIG less than 150 mg/dL NormalTRIG 150-199 mg/dL Borderline highTRIG 200-500 mg/dL High TRIG greater than 500 mg/dL Very highStandard traceable to the Center for Disease Conrtrol and Prevention (CDC) test method. Urea nitrogen [Mass/volume] in Serum or PlasmaOrdered By: Jes Cruz on 06-19-2022 Urea nitrogen [Mass/Vol] 9 mg/dL 7-25 [facility] WBC Auto (Bld) [#/Vol]Ordere d By: Jes Cruz on 06-19-2022 WBC (Bld) [#/Vol] 8.2 10*3/uL 3.8-11.6 [facility] CARDIAC BJORN ADMITon 023 CK [Catalytic activity/Vol] 54 U/L Normal 26-192 [facility] Comment on above: Performed By: #### C KEYSHAWN ORTEGA #### [facility] [address] [address] [address] Howard Guthrie CK.MB [Mass/Vol] 1.70 ng/mL Normal <=3.60 [facility] Comment on above: Performed By: #### C JORDAN CMP #### [facility] [address] [address] [address] Howard Guthrie HSTROP <4.0 Normal 4.0-51.3 [facility] Comment on above: Result Comment: CUT- OFF POINTS HAVE BEEN ESTABLISHED BASED ON THE FOURTH UNIVERSAL DEFINITIONS OF MYOCARDIAL INFARCTION. THE UPPER REFERENCE LIMIT (URL) OF TROPONIN, DEFINED THE 99TH PERCENTILE OF cTnI DISTRIBUTION IN A REFERENCE POPULATION, HAS BEEN CONFIRMED THE DECISION THRESHOLD FOR [place] DIAGNOSIS. Performed By: #### C JORDAN, CMP #### [facility] [address] [place] [address] Dr. Howard Guthrie NYA 23 ng/mL Normal 9-82 [facility] Comment on above: Performed By: #### C MICHAELM, CMP #### [facility] [address] [place] [address] Dr. Howard Guthrie CBC AUTO DIFFon 06-17-2022 BASO # 0.1 103/ul Normal 0.0-0.1 [facility] Comment on above: Performed By: #### C BC #### [facility] [address] [place] [address] Dr. Howard Guthrie Basophils/100 WBC (Bld) 1.0 % Normal 0.2-2.0 [facility] Comment on above: Performed By: #### C BC #### [facility] [address] [place] [address] Dr. Howard Guthrie EO # 0.2 103/ul Normal 0.0-0.7 [facility] Comment on above: Performed By: #### C BC #### [facility] [address] [place] [address] Dr. Howard Guthrie Eosinophils/100 WBC (Bld) 2.9 % Normal 0.9-7.0 [facility] Comment on above: Performed By: #### C BC #### [facility] [address] [place] [address] Dr. Howard Guthrie Erythrocyte distribution width (RBC) [Ratio] 12.7 % Normal 11.0-15.0 [facility] Comment on above: Performed By: #### C BC #### [facility] [address] [place] [address] Dr. Howard Guthrie Hematocrit (Bld) [Volume fraction] 42.5 % Normal 36.0-48.0 [facility] Comment on above: Performed By: #### C BC #### [facility] [address] [place] [address] Dr. Howard Guthrie Hemoglobin (Bld) [Mass/Vol] 14.7 g/dL Normal 12.0-16.0 [facility] Comment on above: Performed By: #### C BC #### [facility] [address] [place] [address] Dr. Howard Gutrhie IG # 0.02 10e3/ul Normal 0.00-0.03 [facility] Comment on above: Performed By: #### C BC #### [facility] [address] [place] [address] Dr. Howard Guthrie IG % 0.3 % Normal 0.0-0.5 [facility] Comment on above: Performed By: #### C BC #### [facility] [address] [place] [address] Dr. Howard Guthrie LYMPH # 2.1 103/ul Normal 1.2-3.8 [facility] Comment on above: Performed By: #### C BC #### [facility] [address] [place] [address] Dr. Howard Guthrie Lymphocytes/100 WBC (Bld) 28.4 % Normal 20.5-60.0 [facility] Comment on above: Performed By: #### C BC #### [facility] [address] [place] [address] Dr. Howard Guthrie MANUAL DIFF REQ NO Normal [facility] Comment on above: Performed By: #### C BC #### [facility] [address] [place] [address] Dr. Howard Guthrie MCH (RBC) [Entitic mass] 33.1 pg Normal 26.7-34.0 [facility] Comment on above: Performed By: #### C BC #### [facility] [address] [place] [address] Dr. Howard Guthrie MCHC (RBC) [Mass/Vol] 34.6 g/dL Normal 29.9-35.2 [facility] Comment on above: Performed By: #### C BC #### [facility] [address] [place] [address] Dr. Howard Guthrie MCV (RBC) [Entitic vol] 95.7 fL Normal 81.0-99.0 [facility] Comment on above: Performed By: #### C BC #### [facility] [address] [address] [address] Howard Guthrie MONO # 1.0 103/ul Critically high 0.3-0.8 [facility] Comment on above: Performed By: #### C BC #### [facility] [address] [address] [address] Howard Guthrie Monocytes/100 WBC (Bld) 13.1 % Critically high 1.7-12.0 [facility] Comment on above: Performed By: #### C BC #### [facility] [address] [place] [address] Dr. Howard Guthrie NEUT # 4.0 103/ul Normal 1.4-6.5 [facility] Comment on above: Performed By: #### C BC #### [facility] [address] [place] [address] Dr. Howard Guthrie Neutrophils/100 WBC (Bld) 54.3 % Normal 43.0-75.0 [facility] Comment on above: Performed By: #### C BC #### [facility] [address] [place] [address] Dr. Howard Guthrie Platelet mean volume (Bld) [Entitic vol] 10.0 fL Normal 9.5-13.5 [facility] Comment on above: Performed By: #### C BC #### [facility] [address] [place] [address] Dr. Howard Guthrie PLT 343 103/ul Normal 150-450 [facility] Comment on above: Performed By: #### C BC #### [facility] [address] [place] [address] Dr. Howard Guthrie RBC 4.44 106/ul Normal 4.20-5.40 [facility] Comment on above: Performed By: #### C BC #### [facility] [address] [place] [address] Dr. Howard Guthrie WBC 7.4 103/ul Normal 4.0-11.0 [facility] Comment on above: Performed By: #### C BC #### [facility] [address] [place] [address] Dr. Howard Guthrie D-DIMERon 06-17-2022 D-DIMER 0.43 mg/L FEU Normal <=0.59 [facility] Comment on above: Performed By: #### D DIM #### [facility] [address] [place] [address] Dr. Howard Guthrie D-DIMER COMMENTS SEE BELOW Normal [facility] Comment on above: Result Comment: Incr [...] hospitalization. Performed By: #### D DIM #### [facility] [address] [place] [address] Dr. Howard Guthrie ER URINE PROFILEon Bilirubin Ql (U) Negative Normal NEGATIVE [facility] Comment on above: Performed By: #### U MICRO, ERUR #### [facility] [address] [place] [address] Dr. Howard Guthrie Clarity (U) CLEAR Normal CLEAR [facility] Comment on above: Performed By: #### U MICRO, ERUR #### [facility] [address] [place] [address] Dr. Howard Guthrie Color (U) LT. YELLOW Normal YELLOW [facility] Comment on above: Performed By: #### U MICRO, ERUR #### [facility] [address] [place] [address] Dr. Howard MILLS A micrscopic examination will be performed if indicated. Normal [facility] Comment on above: Performed By: #### U MICRO, ERUR #### [facility] [address] [place] [address] Dr. Howard Guthrie Glucose Ql (U) Negative Normal NEGATIVE [facility] Comment on above: Performed By: #### U MICRO, ERUR #### [facility] [address] [address] [address] Howard Guthrie Hemoglobin Ql (U) SMALL Abnormal NEGATIVE [facility] Comment on above: Performed By: #### U MICRO, ERUR #### [facility] [address] [place] [address] Dr. Howard Guthrie Ketones Ql (U) Negative Normal NEGATIVE [facility] Comment on above: Performed By: #### U MICRO, ERUR #### [facility] [address] [address] [address] Howard Guthrie LEUKOCYTES Negative Normal NEGATIVE [facility] Comment on above: Performed By: #### U MICRO, ERUR #### [facility] [address] [place] [address] Dr. Howard Guthrie Nitrite Ql (U) Negative Normal NEGATIVE [facility] Comment on above: Performed By: #### U MICRO, ERUR #### [facility] [address] [place] [address] Dr. Howard Guthrie pH (U) 7.0 [pH] Normal 5-9 [facility] Comment on above: Performed By: #### U MICRO, ERUR #### [facility] [address] [place] [address] Dr. Howard Guthrie SPEC GRAVITY 1.015 Normal 1.005-<=1.0 25 [facility] Comment on above: Performed By: #### U MICRO, ERUR #### [facility] [address] [address] [address] Howard Guthrie UA PROTEIN Negative Normal NEGATIVE/ TRACE [facility] Comment on above: Performed By: #### U MICRO, ERUR #### [facility] [address] [place] [address] Dr. Howard Guthrie UR MICRO IND INDICATED Normal [facility] Comment on above: Performed By: #### U MICRO, ERUR #### [facility] [address] [place] [address] Dr. Howard Guthrie Urobilinogen Qn (U) 0.2 {Abdiaziz'U}/dL Normal 0.2 - 1. 0 [facility] Comment on above: Performed By: #### U MICRO, ERUR #### [facility] [address] [place] [address] Dr. Howard Guthrie PROF 14(COMP METB)on 023 Albumin [Mass/Vol] 3.8 g/dL Normal 3.4-5.0 [facility] Comment on above: Performed By: #### C MICHAELM, CMP #### [facility] [address] [place] [address] Dr. Howard Guthrie Albumin/Globulin [Mass ratio] 1.1 {ratio} Normal [facility] Comment on above: Performed By: #### C MICHAELM, CMP #### [facility] [address] [place] [address] Dr. Howard Guthrie ALP [Catalytic activity/Vol] 96 U/L Normal 46-116 [facility] Comment on above: Performed By: #### C MICHAELM, CMP #### [facility] [address] [place] [address] Dr. Howard Guthrie ALT [Catalytic activity/Vol] 19 U/L Normal 14-59 [facility] Comment on above: Performed By: #### C MICHAELM, CMP #### [facility] [address] [place] [address] Dr. Howard Guthrie Anion gap [Moles/Vol] 11.2 mmol/L Normal [facility] Comment on above: Performed By: #### C MICHAELM, CMP #### [facility] [address] [place] [address] Dr. Howard Guthrie AST [Catalytic activity/Vol] 19 U/L Normal 15-37 [facility] Comment on above: Performed By: #### C MADM, CMP #### [facility] [address] [place] [address] Dr. Howard Guthrie Bilirubin [Mass/Vol] 0.5 mg/dL Normal 0.2-1.0 [facility] Comment on above: Performed By: #### C MICHAELM, CMP #### [facility] [address] [place], [place] [id number] Dr. Howard Guthrie Calcium [Mass/Vol] 8.8 mg/dL Normal 8.5-10.1 [facility] Comment on above: Performed By: #### C JORDAN, CMP #### [facility] [address] [place] [address] Dr. Howard Guthrie Chloride [Moles/Vol] 104 mmol/L Normal 98-107 [facility] Comment on above: Performed By: #### C MICHAELM, CMP #### [facility] [address] [place] [address] Dr. Howard Guthrie CO2 [Moles/Vol] 24.1 mmol/L Normal 21.0-32.0 [facility] Comment on above: Performed By: #### C JORDAN, CMP #### [facility] [address] [place] [address] Dr. Howard Guthrie Creatinine [Mass/Vol] 0.73 mg/dL Normal 0.55-1.02 [facility] Comment on above: Performed By: #### C JORDAN, CMP #### [facility] [address] [place] [address] Dr. Howard Guthrie EGFR-AF RWANDAN >60 Normal >=60 [facility] Comment on above: Performed By: #### C JORDAN, CMP #### [facility] [address] [place] [address] Dr. Howard Guthrie EGFR-NON AF RWANDAN >60 Normal >=60 [facility] Comment on above: Performed By: #### C JORDAN, CMP #### [facility] [address] [place] [address] Dr. Howard Guthrie Globulin (S) [Mass/Vol] 3.6 g/dL Normal [facility] Comment on above: Performed By: #### C JORDAN, CMP #### [facility] [address] [place] [address] Dr. Howard Guthrie Glucose [Mass/Vol] 112 mg/dL Critically high 74-106 [facility] Comment on above: Performed By: #### C JORDAN, CMP #### [facility] [address] [place] [address] Dr. Howard Guthrie Potassium [Moles/Vol] 3.3 mmol/L Critically low 3.5-5.1 [facility] Comment on above: Performed By: #### C JORDAN, CMP #### [facility] [address] [place] [address] Dr. Howard Guthrie Protein [Mass/Vol] 7.4 g/dL Normal 6.4-8.[address] [facility] Comment on above: Performed By: #### C JORDAN, CMP #### [facility] [address] [address] [address] Howard Guthrie Sodium [Moles/Vol] 136 mmol/L Normal 136-[address] [facility] Comment on above: Performed By: #### C JORDAN, CMP #### [facility] [address] [place] [address] Dr. Howard Guthrie Urea nitrogen [Mass/Vol] 6.0 mg/dL Critically low 7.0-18.0 [facility] Comment on above: Performed By: #### C JORDAN, CMP #### [facility] [address] [place] [address] Dr. Howard Guthrie Urea nitrogen/Creatinine [Mass ratio] 8.2 mg/mg Normal [facility] Comment on above: Performed By: #### C JORDAN, CMP #### [facility] [address] [place] [address] Dr. Howard Guthrie TROPONIN, HIGH SENSITIVITYon 06-17-2022 HSTROP 4.6 pg/mL Normal 4.0-51.3 [facility] Comment on above: Result Comment: CUT- OFF POINTS HAVE BEEN ESTABLISHED BASED ON THE FOURTH UNIVERSAL DEFINITIONS OF MYOCARDIAL INFARCTION. THE UPPER REFERENCE LIMIT (URL) OF TROPONIN, DEFINED THE 99TH PERCENTILE OF cTnI DISTRIBUTION IN A REFERENCE POPULATION, HAS BEEN CONFIRMED THE DECISION THRESHOLD FOR [place] DIAGNOSIS. Performed By: #### H STROPN #### [facility] [address] [place] [address] Dr. Howard Guthrie URINE MICROSCOPIC ONLYon BACTERIA TRACE Abnormal NONE SEEN [facility] Comment on above: Performed By: #### U MICRO, ERUR #### [facility] [address] [address] [address] Howard Guthrie Bacteria identified Cx Nom (U) NOT INDICATED Normal [facility] Comment on above: Performed By: #### U MICRO, ERUR #### [facility] [address] [place] [address] Dr. Howard Guthrie CAST NONE SEEN Normal NONE SEEN [facility] Comment on above: Performed By: #### U MICRO, ERUR #### [facility] [address] [address] [address] Howard Guthrie Crystals LM Nom (Urine sed) NONE SEEN Normal NONE SEEN [facility] Comment on above: Performed By: #### U MICRO, ERUR #### [facility] [address] [place] [address] Dr. Howard Guthrie Epithelial cells LM Ql (Urine sed) FEW Abnormal NONE SEEN /RARE [facility] Comment on above: Performed By: #### U MICRO, ERUR #### [facility] [address] [address] [address] Howard Guthrie MUCOUS TRACE Abnormal NONE SEEN [facility] Comment on above: Performed By: #### U MICRO, ERUR #### [facility] [address] [place] [address] Dr. Howard Guthrie RBC 2-5 Abnormal 0-2 [facility] Comment on above: Performed By: #### U MICRO, ERUR #### [facility] [address] [place] [address] Dr. Howard Guthrie WBC NONE SEEN Normal NONE SEEN [facility] Comment on above: Performed By: #### U MICRO, ERUR #### [facility] [address] [place] [address] Dr. Howard Guthrie XR CHEST 1 Von [...] by: NICK MARIE Date: 2022-06-17 12:26 Normal [facility] Tobacco Screening.on 022 Adult depression screening assessment No [facility] [address] DO Work Phone: Tobacco use status CPHS a) Yes [facility] DO Work Phone: Tobacco Screening. Yes [facility] [address] DO Work Phone: Vital Signs Date Time Vital Sign Value Performing Clinician Tojna figueroa 02-16-2024 09:35-0500 Blood Pressure Location Roosevelt Sotelo [facility] 02-16-2024 09:35-0500 Diastolic blood pressure 80 mm[Hg] Roosevelt Sotelo [facility] 02-16-2024 09:35-0500 Heart rate 76 /min Roosevelt Deepak [facility] 02-16-2024 09:35-0500 Respiratory rate 18 /min Roosevelt Sotelo [facility] 02-16-2024 09:35-0500 SaO2% (BldA) [Mass fraction] 100 % Roosevelt Sotelo [facility] 02-16-2024 09:35-0500 Systolic blood pressure 130 mm[Hg] Roosevelt Sotelo [facility] 09-13-2023 13:06-0400 Blood Pressure Location Roosevelt Sotelo [facility] 09-13-2023 13:06-0400 Diastolic blood pressure 85 mm[Hg] Roosevelt Sotelo [facility] 09-13-2023 13:06-0400 Heart rate 90 /min Roosevelt Sotelo [facility] 09-13-2023 13:06-0400 SaO2% (BldA) [Mass fraction] 99 % Roosevelt Sotelo [facility] 09-13-2023 13:06-0400 Systolic blood pressure 125 mm[Hg] Roosevelt Sotelo [facility] 08-10-2023 09:19-0400 Blood Pressure Location JES ROLLE [facility] 08-10-2023 09:19-0400 Body temperature 98.24 [degF] JES ELSA [facility] 08-10-2023 09:19-0400 Diastolic blood pressure 78 mm[Hg] JES ELSA [facility] 08-10-2023 09:19-0400 Heart rate 80 /min JES ELSA [facility] 08-10-2023 09:19-0400 Respiratory rate 19 /min JES ELSA [facility] 08-10-2023 09:19-0400 Systolic blood pressure 136 mm[Hg] JES ELSA [facility] 03-22-2023 13:16-0500 Blood Pressure Location Ramone Garcia [facility] 03-22-2023 13:16-0500 Diastolic blood pressure 85 mm[Hg] Ramone Garcia [facility] 03-22-2023 13:16-0500 Heart rate 90 /min Ramone Garcia [facility] 03-22-2023 13:16-0500 SaO2% (BldA) [Mass fraction] 99 % Ramone Garcia [facility] 03-22-2023 13:16-0500 Systolic blood pressure 126 mm[Hg] Ramone Garcia [facility] 12-15-2022 13:20-0400 Body height 165.1 cm Loretta Javier [facility] [employer] Other 12-15-2022 13:20-0400 Body mass index (BMI) [Ratio] 23.13 kg/m2 Loretta Javier [facility] [employer] Other 12-15-2022 13:20-0400 Body temperature 98.1 [degF] Loretta Javier Other [employer] Other 12-15-2022 13:20-0400 Body weight 63.05 kg Loretta Javier Other [employer] Other 12-15-2022 13:20-0400 Diastolic blood pressure 76 mm[Hg] Loretta Javier Other [employer] Other 12-15-2022 13:20-0400 Respiratory rate 18 /min Lroetta Javier Other [employer] Other 12-15-2022 13:20-0400 SaO2% (BldA) [Mass fraction] 98 % Loretta Javier Other [employer] Other 12-15-2022 13:20-0400 Systolic blood pressure 128 mm[Hg] Loretta Javier Other [employer] Other 10-14-2022 11:10-0400 Body height 165.1 cm Tanya Glover Other [employer] Other 10-14-2022 11:10-0400 Body mass index (BMI) [Ratio] 23.39 kg/m2 Tanya Pangmond Other [employer] Other 10-14-2022 11:10-0400 Body temperature 97.8 [degF] Tanya Glover Other [employer] Other 10-14-2022 11:10-0400 Body weight 63.78 kg Tanya Glover Other [employer] Other 10-14-2022 11:10-0400 Diastolic blood pressure 85 mm[Hg] Tanya Pangmond Other [employer] Other 10-14-2022 11:10-0400 Respiratory rate 18 /min Tanya Glover Other [employer] Other 10-14-2022 11:10-0400 SaO2% (BldA) [Mass fraction] 99 % Tanya Glover Other [employer] Other 10-14-2022 11:10-0400 Systolic blood pressure 143 mm[Hg] Tanya Belen Other [employer] Other 06-24-2022 09:32-0400 Body height 165.1 cm No PCP None -[facility] [facility] DO Work Phone: 06-24-2022 09:32-0400 Body mass index (BMI) [Ratio] 24.63 kg/m2 No PCP None -[facility] DO Work Phone: 06-24-2022 09:32-0400 Body surface area Derived from formula 1.74 m2 No PCP None [facility] [address] DO Work Phone: 06-24-2022 09:32-0400 Body weight 67.13 kg No PCP None [facility] 250 DO Work Phone: 06-24-2022 09:32-0400 Diastolic blood pressure 82 mm[Hg] No PCP None [facility] 250 DO Work Phone: 06-24-2022 09:32-0400 Heart rate 88 /min No PCP None [facility] 250 DO Work Phone: 06-24-2022 09:32-0400 Systolic blood pressure 124 mm[Hg] No PCP None [facility] 250 DO Work Phone: 06-02-2021 15:09-0500 Diastolic blood pressure 98 mm[Hg] No PCP None [facility] [facility] 250 DO Work Phone: 06-02-2021 15:09-0500 Systolic blood pressure 142 mm[Hg] No PCP None [facility] 250 DO Work Phone: 06-02-2021 15:03-0500 Body height 165.1 cm No PCP None [facility] 250 DO Work Phone: 06-02-2021 15:03-0500 Body mass index (BMI) [Ratio] 28.29 kg/m2 No PCP None [facility] 250 DO Work Phone: 06-02-2021 15:03-0500 Body surface area Derived from formula 1.85 m2 No PCP None [facility] 250 DO Work Phone: 06-02-2021 15:03-0500 Body weight 77.11 kg No PCP None [facility] 250 DO Work Phone: 06-02-2021 15:03-0500 Diastolic blood pressure 90 mm[Hg] No PCP None [facility] 250 DO Work Phone: 06-02-2021 15:03-0500 Heart rate 92 /min No PCP None [facility] 250 DO Work Phone: 06-02-2021 15:03-0500 Systolic blood pressure 142 mm[Hg] No PCP None [facility] 250 DO Work Phone: Encounters Encounter Date Encounter Type Care Provider Facility Start: 04-10-2024 End: 04-10-2024 ambulatory JES ROLLE Facility:[facility] Start: 04-10-2024 End: 04-10-2024 Patient encounter procedure JES ROLLE [facility] Start: 03-27-2024 End: 03-27-2024 ambulatory Jes Cruz Facility:[facility] Start: 03-27-2024 End: 03-27-2024 Patient encounter procedure [facility] Start: 03-23-2024 End: 03-23-2024 ambulatory CHLOE CEBALLOS [facility] Start: 03-09-2024 End: 03-09-2024 Evaluation and management of inpatient [facility] Start: 03-09-2024 End: 03-10-2024 Evaluation and management of inpatient [facility] Start: 03-06-2024 End: 03-06-2024 ambulatory Alexandro PARTIDA Facility:[facility] Start: 03-06-2024 End: 03-06-2024 Patient encounter procedure Alexandro PARTIDA [facility] [place] Start: 02-24-2024 End: 02-24-2024 [facility] Start: 02-24-2024 End: 02-24-2024 ambulatory [facility] Start: 02-18-2024 End: 02-18-2024 ambulatory Alexandro PARTIDA Facility:[facility] Start: 02-18-2024 End: 02-18-2024 Patient encounter procedure Alexandro PARTIDA [facility] Start: 02-16-2024 End: 02-17-2024 ambulatory Alexandro PARTIDA Facility:CD:[id number] Start: 02-16-2024 End: 02-16-2024 Patient encounter procedure Roosevelt Sotelo [facility] Start: 02-16-2024 End: 02-16-2024 Preprocedural examination done Roosevelt Sotelo [facility] Start: 02-04-2024 End: 02-15-2024 Pre-admission assessment Roosevelt Sotelo [facility] Start: 01-27-2024 End: 01-27-2024 ambulatory [facility] Start: 01-25-2024 End: 01-25-2024 ambulatory [facility] Start: 01-25-2024 End: 01-25-2024 ambulatory [facility] Start: 01-07-2024 End: 01-07-2024 ambulatory Roosevelt Sotelo Facility:[facility] Start: 01-07-2024 End: 01-07-2024 Patient encounter procedure Roosevelt Sotelo [facility] Start: 12-17-2023 End: 12-17-2023 ambulatory [facility]IDA [facility] Start: 12-14-2023 End: 12-14-2023 ambulatory [facility] Start: 12-02-2023 End: 12-02-2023 Patient encounter procedure CLINICAL TECH-C Jes Cruz Work Phone: [facility] [address] Work Phone: Start: 12-02-2023 End: 12-02-2023 ambulatory CLINICAL TECH-C Jes Cruz Work Phone: [facility] Work Phone: Start: 11-26-2023 ambulatory Alexandro PARTIDA Facili ty:[facility] [place] Start: 11-25-2023 End: 11-25-2023 ambulatory Alexandro PARTIDA Facility:CD:[id number] Start: 11-01-2023 End: 11-01-2023 Patient encounter procedure CLINICAL TECH-C Jes Cruz Work Phone: [facility] [address] [place] Work Phone: Start: 11-01-2023 End: 11-01-2023 ambulatory CLINICAL TECH-C Jes Cruz Work Phone: [facility] Work Phone: Start: 10-14-2023 End: 10-14-2023 ambulatory JES ROLLE Facility:[facility] [place] Start: 10-14-2023 End: 10-14-2023 Patient encounter procedure JES ROLLE [facility] Start: 10-12-2023 Non-patient / Non-visit CLINICAL TECH-C Tayla Cruz Work Phone: [facility] Work Phone: Start: 10-05-2023 End: 10-05-2023 ambulatory Alexandro PARTIDA Facility:[facility] Start: 10-05-2023 End: 10-05-2023 Patient encounter procedure Alexandro R PARTIDA [facility] Start: 09-18-2023 End: 09-19-2023 Emergency department patient visit CUATE KELLY [facility] Start: 09-13-2023 End: 09-13-2023 ambulatory Roosevelt Sotelo Facility:[facility] Start: 09-13-2023 End: 09-13-2023 Patient encounter procedure Roosevelt Sotelo [facility] Start: 09-11-2023 Non-patient / Non-visit CLINICAL TECH-Terrie Cruz Work Phone: [facility] Work Phone: Start: 08-10-2023 End: 08-10-2023 ambulatory JES ROLLE Facility:[facility] Start: 08-10-2023 End: 08-10-2023 Lab Drop off JES ROLLE [facility] Start: 08-10-2023 End: 08-10-2023 ambulatory JES ROLLE Facility:[facility] Start: 08-10-2023 End: 08-10-2023 Patient encounter procedure JES ROLLE [facility] Start: 06-09-2023 End: 06-09-2023 ambulatory Jes Cruz Facility:[facility] Start: 04-27-2023 ambulatory Roosevelt Sotelo Facility:[facility] Start: 04-16-2023 End: 04-16-2023 ambulatory Ramone Garcia Facility:[facility] Start: 04-16-2023 End: 04-16-2023 Patient encounter procedure Ramone Garcia [facility] Start: 04-01-2023 End: 04-01-2023 ambulatory PHYSICIAN NO FAMILY Facility:[facility] Start: 03-22-2023 End: 03-22-2023 Patient encounter procedure Ramone Garcia [facility] Start: 12-15-2022 End: 12-15-2022 ambulatory Loretta Javier Other [employer] Other Start: 12-15-2022 Office outpatient vi sit 25 minutes Loretta Javier [facility] Start: 10-14-2022 End: 10-14-2022 ambulatory Tanyahai Glover Other [employer] Other Start: 10-14-2022 Office outpatient vi sit 15 minutes Tanyahai Glover [facility] Start: 08-14-2022 ambulatory Ms. Jes Cruz Facility: Start: 08-14-2022 FUV, Provider: Nadia Franks, Status: Pen, Time: 1:00 PM No PCP None [facility] 250 DO Work Phone: Start: 08-06-2022 Rx Renewal No PCP None [facility] 250 DO Work Phone: Start: 06-24-2022 Office outpatient vi sit 15 minutes No PCP None [facility] 250 DO Work Phone: Start: 06-24-2022 ambulatory Ms. Zuniga Tanvi Peter Facility: Start: 06-19-2022 End: 06-19-2022 ambulatory PHYSICIAN NO [facility] Work Phone: Start: 06-19-2022 End: 06-19-2022 Departed Referred PHYSICIAN NO [facility] Start: 06-17-2022 End: 06-17-2022 ambulatory RIVER MARTE . Facility: Start: 11-10-2021 ambulatory Ms. Zuniga Tanvi Peter Facility: Start: 10-27-2021 Rx Renewal No PCP None [facility] 250 DO Work Phone: Start: 06-02-2021 Office outpatient vi sit 25 minutes No PCP None [facility] 250 DO Work Phone: Procedures Date Procedure Procedure Detail Performing Clinician Start: 02-17-2024 Insertion of single incision mid-urethral mini-sling Alexandro PARTIDA Start: 12-02-2023 MR lumbar spine wo con CLINICAL TECH-Terrie paiz Work Phone: Start: 11-01-2023 Urine culture CLINICAL TECH-Terrie sotelo Work Phone: Start: 10-05-2023 Cystourethroscopy with [...] 11-01-2023 Bacteria identified in Urine by Culture [facility] Start: 08-14-2022 FUV, Provider: Nadia Franks, Status: Pen, Time: 1:00 PM FUV, Provider: Nadia Franks, Status: Pen, Time: 1:00 PM [facility] 250 DO Work Phone: Start: 11-10-2021 FUV, Provider: Nadia Franks, Status: Pen, Time: 3:00 PM FUV, Provider: Nadia Franks, Status: Pen, Time: 3:00 PM [facility] 250 DO Work Phone: Start: 06-30-2021 FUV, Provider: Nadia Franks, Status: Pen, Time: 8:00 AM FUV, Provider: Nadia Franks, Status: Pen, Time: 8:00 AM [facility] 250 DO Work Phone: Estradiol (E2) [Mass/volume] in Serum or Plasma [facility] Lutropin [Units/volu me] in Serum or Plasma [facility] Immunizations Immunization Date Immunization Notes Care Provider Fa cili 03-25-2021 influenza, injectabl e, quadrivalent, preservative free No PCP None [facility] 01-05-2020 influenza, injectabl e, quadrivalent, preservative free No PCP None [facility] 250 DO Work Phone: 01-06-2019 influenza, injectabl e, quadrivalent, preservative free [facility] Payers Date Payer Category Payer Self-pay [id number] 1970 Unknown [id number] 2.16840.1.463252.3.579.2. 593 1970 Unknown [id number] 2.16840.1.121811.3.579.2. 356 1971 Unknown [id number] 2.16840.1.831997.3.579.2. 356 1971 Unknown [id number] 2.16840.1.171022.3.579.2. 356 1971 Unknown [id number] 2.16840.1.189774.3.579.2. 1286 1971 Unknown [id number] 2.16840.1.069571.3.579.2. 1286 1971 Unknown [id number] 2.16840.1.528283.3.579.2. 727 1971 Unknown [id number] 2.16840.1.633430.3.579.2. 727 1971 Unknown [id number] 2.16.840.1.439161.3.579.2. 1971 Unknown [id number] 2.16.840.1.775025.3.579.2 1971 Unknown [id number] 2.16.840.1.457250.3.579.2 1971 Unknown [id number] 2.16.840.1.663615.3.579.2 1971 Unknown [id number] 2.16.840.1.004753.3.579.2 1971 Unknown [id number] 2.16.840.1.776628.3.579.2 1971 Unknown [id number] 2.16.840.1.620610.3.579.2 1971 Unknown [id number] 2.16.840.1.714926.3.579.2 1971 Unknown [id number] 2.16.840.1.611331.3.579.2 1971 Unknown [id number] 2.16.840.1.995088.3.579.2 1971 Unknown [id number] 2.16.840.1.117451.3.579.2 1971 Unknown [id number] 2.16.840.1.317918.3.579.2 1971 Unknown [id number] 2.16.840.1.395257.3.579.2 1971 Unknown [id number] 2.16.840.1.118936.3.579.2 1958 Medicaid [id number] Private Health Insurance [id number] Unknown [id number] Unknown [facility] PLAN Unknown [id number] Unknown [id number] 2.16.840.1.880194.3.579.2. 531 Unknown [id number] 2.16.840.1.289137.3.579.2. 531 Unknown [id number] 2.16.840.1.098141.3.579.2. 531 Unknown [id number] 2.16.840.1.708613.3.579.2. 531 Unknown [id number] 2.16.840.1.524457.3.579.2. 531 Social History Date Type Detail Facility Tobacco smoking stat [facility] Unknown if ever smoked [facility] Start: 1970 Sex Assigned At Female F [facility] Illicit drug use Illicit drug use [facility]Kay[facility] 250 DO Work Phone: Comment on above: 1 pack per daily.; Start: 05-26-2021 Tobacco smoking stat [facility] Ex-smoker (finding) [facility] Sex Assigned At [facility] Start: 03-22-2023 End: 02-16-2024 Tobacco smoking status Light tobacco smoker (finding) [facility] Tobacco smoking status Never [facility] Medical Equipment Procedure Code Equipment Code Equipment Origin al Text Equipment Identifier Dates Thoracotomy Staple line-reinforcement strip ()[id number] FDA Start: 03-26-2021 Thoracotomy Surgical adhesive/sealant, human-derived ()[id number] FDA Start: 03-26-2021 Goals Date Patient Goal Desired Activity /State Functional Status Date Assessment Result Facility 02-16-2024 Functional Status N/A [facility] 10-14-2023 Functional Status N/A [facility] 09-13-2023 Functional Status No [facility] 08-10-2023 Functional Status N/A [facility] 03-22-2023 Functional Status No [facility] Clinical Notes 10-14-2022 to 04-13-2024 Note Date & Type Note Facility 04-13-2024 Note pain [facility] 03-23-2024 Note SUBJECTIVE: Chief complaint: Postoperative visit [...] 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 She states that her employer is able to work within her restrictions. Review of systems: As in HPI. Past Medical History: Diagnosis Date Alcohol abuse Anxiety Bipolar disorder ([facility]) Chronic sinusitis Cocaine use 05/2023 COPD (chronic obstructive pulmonary disease) ([facility]) Coronary vasospasm ([facility]) Diverticulosis per CT 08/2023 Dyslipidemia Endometriosis [...] propylene glycol 99.5 % (not less than, CORRECTION) liquid external solution, , Disp: , Rfl: oxyCODONE (Roxicodone) 10 mg immediate release tablet, Take 1 tablet (10 mg) by mouth if needed (more content not included)... [facility] 03-17-2024 Hospital Discharge instructions Follow Up Care 03/17/2024 10:42:00 With:JAQUAN PATRICK, Alexandro Hernandez, URL Address: [facility] [address] , [place] [address]- [phone] When: Unknown [facility] 03-10-2024 Note Advised by therapy p t requesting DME raised toilet seat and shower chair. Pt requested to use [employer] in [place] but they were out of network. Called around and found [employer] in [place] able to fulfill. Sent scripts/face to face and clinicals by fax and advised pt they will call when ready for pickup. [facility] 03-10-2024 Note Occupational Therapy Occupational Therapy [...] Primary hypertension Loosening of hardware in spine ([facility]) Back pain, lumbosacral Past Medical History: Diagnosis Date Alcohol abuse Anxiety Bipolar disorder ([facility]) Chronic sinusitis Cocaine use 05/2023 COPD (chronic obstructive pulmonary disease) ([facility]) Coronary vasospasm (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 [...] Objective General Assess (more content not included)... [facility] 03-10-2024 Note 03/10/24 1143 Admission Assessment [...] Status Interested Does the patient have a case assistant assigned to them through their insurance? No [...] to send link and activate MyChart? Yes [facility] 03-10-2024 Note Clinical Therapist B fabiola [...] brief intervention. Assessment completed by: HARVEY Milton [facility] 03-09-2024 Note Patient: Isela Greene rbin Procedure Summary Date: 03/09/24 Room / Location: [facility] OPERATING ROOM 03 / [facility] Operating Room Anesthesia Start: 1237 Anesthesia [...] per anesthesia protocol. No notable events documented. 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) Hypertension Spontaneous pneumothorax HYSTERECTOMY LUMBAR FUSION THORACOSCOPY [...] with attending and resident. Additional Equipment Requests [facility] 02-24-2024 Note SUBJECTIVE: Chief complaint: Preoperative [...] propylene glycol 99.5 % (not less than, CORRECTION) liquid external (more content not included)... [facility] 02-02-[address] Kathy alicea. Dx: spinal hardware complication. Procedure: Removal of hardware L4-S1--screws and rods. Time: 1.5-2 hours. Position: Prone on open Ulisses. Need: C arm. Is on aspirin--not sure who prescribes this for her, but would need clearance to stop. [facility] 01-27-2024 Note SUBJECTIVE: Chief complaint: Broken [...] Diagnosis Date Alcohol abuse Anxiety Bipolar disorder ([facility]) Chronic sinusitis Cocaine use 05/2023 COPD (chronic obstructive pulmonary disease) ([facility]) Coronary vasospasm ([facility]) Diverticulosis per CT 08/2023 Dyslipidemia Endometriosis [...] by mouth in (more content not included)... [facility] 01-26-2024 Hospital Discharge instructions Follow Up Care 01/26/2024 14:28:39 With:JAQUAN PATRICK, Alexandro Hernandez, URL Address: [facility] [address] [place] [address]- [phone] When: Unknown [facility] 12-14-2023 Note SUBJECTIVE: Chief complaint: [...] Diagnosis Date Alcohol abuse Anxiety Bipolar disorder ([facility]) Chronic sinusitis Cocaine use 05/2023 COPD [...] BEDTIME, Disp: , (more content not included)... [facility] 10-14-2023 Hospital Discharge instructions Patient Education [...] including vitamins, herbs, eye drops, creams, and dqje-ktf-oekvohp medicines. Any problems you or family members [...] provider tells you to take them. Taking eqkj-pot-nocbzfx medicines, vitamins, herbs, and supplements. Surgery safety [...] provider. Document Revised: 10/25/2020 Document Reviewed: 10/25/2020 [employer] Patient Education 2022 [employer]. Follow Up Care 10/05/2023 10:22:18 With:[facility] Address: [facility] [place] [address] Business (1) When: Unknown Comments:for procedure as scheduled [facility] 10-14-2023 Note Patient Education Obstetrics and [...] including vitamins, herbs, eye drops, creams, and puoi-dqw-seyhmty medicines. ? Any problems you or family [...] tells you to take them. ? Taking tfnj-lgt-gsbedjo medicines, vitamins, herbs, and supplements. Surgery safety [...] intended to replace (more content not included)... [facility] 08-10-2023 Evaluation + Plan note Diagnostic Tests PendingUrine Cytology ([facility]) 08/10/23 [facility] 08-10-2023 Hospital Discharge instructions Patient Education 08/10/2023 [...] require a prescription. You can also purchase ocbi-hyt-zeewfqj medicines. Medicines may have nicotine in them [...] and encouragement. Call telephone quitlines, such as 5-880-JDWI-NOW, reach out to support groups, or work [...] provider. Document Revised: 03/13/2022 Document Reviewed: 03/13/2022 [employer] Patient Education 2022 [employer] 08/10/2023 10:11:31 Cystoscopy Cystoscopy Cystoscopy is [...] including vitamins, herbs, eye drops, creams, and floe-xfj-nrfiapz medicines. Any problems you or family members [...] provider tells you to take them. Taking gsam-sly-ouwvmjg medicines, vitamins, herbs, and supplements. Tests You [...] Follow these instructions at home: Medicines Take ylht-wve-nnmvxvo and prescription medicines only as told by [...] provider. Document Revised: 12/03/2021 Document Reviewed: 11/01/2020 [employer] Patient Education 2022 [employer]. Follow Up Care 04/30/2023 12:48:57 With:ELSA MOSES, JES Akhtar, URL Address: [address] [place] [address]. [place] [address] [phone] When: Unknown [facility] 08-10-2023 Note Chief Complaint Jes [...] has had dark urine. Bladder/renal US 04/01/23 [facility] - No renal mass, stone or hydro. Unremarkable bladder. KUB 04/01/23 [facility] - No obvious urinary tract calculi. AMOL 08/02/23 [facility] - No renal stones or hydro. Unremarkable bladder. KUB 08/02/23 [facility] - No urinary tract calculi. Educated [...] upon conclusion of the workup. -CTU at [facility] now -Urine sample to be sent [...] pain (R10.9: Unspecified abdominal pain) AMOL/KUB 08/02/23 [facility] - neg. States pain is in [...] Cyst of kidney, acquired) Bladder/renal US 04/01/23 [facility] - Small L renal cyst. 06/09/23 - BUN 14. Cr 0.63. GFR >60. -Simple cysts do not require follow-up Ordered: CT Urogram 5. Smoker (F17.200: Nicotine dependence, unspec (more content not included)... [facility] Comment on above: Result Comment: Elec tronically Signed By: ELSA PAJES Chand\.br\Date and Time Signed: 08/10/23 10:56 EDT\.br\Electronically Co-Signed By: Mirela Lozoya\.br\Date and Time Co-Signed: 08/10/23 10:16 EDT 04-17-2023 Note Echocardiology Procedure Exam Date/Time Accession # Ordering Echo Transthoracic 04/16/2023 14:37 EST [id number] Jose PATRICK, Ramone Butt CPT code [id number] Reason for Exam (Echo Transthoracic Complete) I25.10;CAD Coronary artery disease Report Version: 1 Study ID: [id number] [address] Adult Echocardiogram Report Name: ISELA CRAIG Study Date: 04/16/2023, 1: 10 PM Patient Location: [facility] : 1970 (MM/DD/YYYY) Gender: Female Age: 52 [...] Signed by: Ramone Garcia MD Transcribed by: [facility] Technologist: GARRY [facility] 12-15-2022 Evaluation note Encounter Date Diagnosis [...] understanding and is agreeable to treatment plan [employer] Other 07-12-2023 Evaluation note* Encounter Date Diagnosis [...] - Z20.822) Oct, Bronchitis (ICD-10 - J40) [employer] Other Evaluation + Plan note Future Appointments Appointment Date:05/13/2023 03:45:00 PM Scheduled Provider:Ramone Garcia MD [facility]oint[facility] Type:Cardiology Follow Up ([facility]) Future Scheduled Tests Radiology* NM Myocardial Spect Rest/Stress 1 Day 03/22/23 * Echo [facility]horacic [facility]ments Appointment Date:05/13/2023 03:45:00 PM Scheduled Provider:Ramone Garcia MD Location:[facility] Appointment Type[facility] Future Appointments Appointment Date:09/27/2023 09:30:00 AM Scheduled Provider[facility] App[facility] Type:Urology CALL PAT FT Appointment Date:10/05/2023 09:00:00 AM Scheduled Provider: Location:[facility] Appointment Type:Urology FT Appointment Date:12/13/2023 01:00:00 PM Scheduled Provider:Roosevelt Sotelo PA-C Location:[facility] Appointment Type:Cardiology Follow Up (FT) Future Scheduled Tests Radiology* [facility]ments Appointment Date:10/14/2023 12:40:00 PM Scheduled Provider:JES ROLLE PA-C Location:[facility] Appointment Type:URO Complex Office Visit Appointment Date:12/13/2023 01:00:00 PM Scheduled Provider:Roosevelt Sotelo PA-C [facility] Appointment Type:Cardiology Follow Up (FT) Future Scheduled Tests Radiology* US Carotid Duplex Bilateral [facility] Future Appointments Appointment Date:11/26/2023 09:30:00 AM Scheduled Provider: Location:[facility] Appointment Type:URO Nurse Visit Appointment Date:12/13/2023 01:00:00 PM Scheduled Provider:Roosevelt Sotelo PA-C [facility] Type:Cardiology Follow Up (FT) Appointment Date:12/13/2023 01:45:00 PM Scheduled Provider:Alexandro PARTIDA MD Location:[facility] Appointment Type:URO Office Visit Future Scheduled Tests Radiology* US Carotid Duplex Bilateral 09/14/23 [facility] evaluation + Plan note Future Appointments Appointment Date:02/21/2024 02:30:00 PM Scheduled Provider:Roosevelt Sotelo PA-C Location:[facility] Appointment Type:Cardiology Follow Up (FT) [facility] + Plan note Future Appointments Appointment Date:02/16/2024 09:30:00 AM Scheduled Provider:Roosevelt Sotelo PA-C [facility] Type:Cardiology Follow Up (FT) Appointment Date:02/18/2024 08:30:00 AM Scheduled Provider: Location:[facility] Appointment Type:URO Nurse Visit Appointment Date:03/06/2024 09:00:00 AM Scheduled Provider:Alexandro PARTIDA MD Location:[facility] Appointment Type:URO Office Visit [facility] + Plan note Future Appointments Appointment Date:02/18/2024 08:30:00 AM Scheduled Provider: Location:[facility] Appointment Type:URO Nurse Visit Appointment Date:03/06/2024 09:00:00 AM Scheduled Provider:Alexanrdo PARTIDA MD Location:[facility] Appointment Type:URO Office Visit Appointment Date:08/15/2024 09:30:00 AM Scheduled Provider:Roosevelt Sotelo PA-C Location:[facility] Appointment Type:Cardiology Follow Up (FT) [facility] evaluation + Plan note Future Appointments Appointment Date:03/06/2024 09:00:00 AM Scheduled Provider:Alexandro PARTIDA MD Location:[facility] Appointment Type:URO Office Visit Appointment Date:08/15/2024 09:30:00 AM Scheduled Provider:Roosevelt Sotelo PA-C Location:[facility] Appointment Type:Cardiology Follow Up (FT) [facility] evaluation + Plan note Future Appointments Appointment Date:08/15/2024 09:30:00 AM Scheduled Provider:Roosevelt Sotelo PA-C Location:[facility] Appointment Type:Cardiology Follow Up (FT) [facility] evaluation + Plan note Future Appointments Appointment Date:04/10/2024 10:00:00 AM Scheduled Provider:JES ROLLE PA-C Location:[facility] Appointment Type:URO Office Visit Appointment Date:08/15/2024 09:30:00 AM Scheduled Provider:Roosevelt Sotelo PA-C Location:[facility] Appointment Type:Cardiology Follow Up (FT) [facility] evaluation noteNo assessment information available [facility] Work Phone: Hisqfmv general Narrative - Reported* Type Description Date Surgical History hysterectomy Surgical History lumbar Fashion Project Other History of Present illness Narrative* The [...] medication regimen. She denies medication side effects. [facility] [address] DO Work Phone: Hospital course Narrative No data available for this section [facility] No data available for this section [facility] No data available for this section [facility] Assessments No Assessments Information Available Family History [...] * Patient was recently hospitalized at [facility]. The patient was seen in Cardiology consult with subsequent cardiovascular management by [facility]. Hospitalization records have been reviewed. * Reason for Cardiology Consultation: chest pain (presented with spontaneous PTX) * Consulting Fleet Operations Manager: Dr. Lopez * Cardiovascular testing: cardiac [...] evaluation. * Last week she presented to [facility] due to chest pain and dizziness. [...] and fluttering . 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 Due to blood pressure and palpitations [...] FAMILY Primary Care Provider Active Jes Cruz CLINICAL TECH-C Attending Provide r Active Team Status: Active Member Role Status Dates Jes Cruz CLINICAL TECH-C Primary Care Prov ider Active Team Status: Inactive Member Role Status Dates Jes Cruz , CLINICAL TECH-C Primary Care Provider, Attending Provider Active Start: November 01, 2023 End: November 01, 2023 Team Status: Active Member Role Status Dates Jes worrell , CLINICAL TECH-C Primary Care Provider Active Start: September 10, 024 Ronaldo Ty , DO Attending Provider Active Sta rt: September 11, 2023 Team Status: Active Member Role Status Dates Jes worrell , CLINICAL TECH-C Primary Care Provider Active Start: October 11, 024 Ronaldo Ty , DO Attending Provider Active Sta rt: October 12, 2023 Team Status: Inactive Member Role Status Dates Jes Cruz , CLINICAL TECH-C Primary Care Provider, Attending Provider Active Start: [...] CREATED AUTHOR AUTHOR'S ORGANIZ ATION 07/29/2022 [facility] DATE CREATED AUTHOR AUTHOR'S ORGANIZ ATION 08/16/2022 [facility] DATE CREATED AUTHOR AUTHOR'S ORGANIZ ATION 09/19/2023 [facility] DATE CREATED AUTHOR AUTHOR'S ORGANIZ ATION 10/21/2023 [facility] DATE CREATED AUTHOR AUTHOR'S ORGANIZ ATION 03/29/2024 [facility] DATE CREATED AUTHOR AUTHOR'S ORGANIZ ATION 04/15/2024 [facility] DATE CREATED AUTHOR AUTHOR'S ORGANIZ ATION 04/23/2024 [facility] REASON FOR VISIT (unrecogniz ed section [...] BE BASED ON THE PRIMARY CLINICAL RECORDS. [facility] [employer] [facility]. provides no warranty or guarantee of the accuracy or completeness of information in this document.
[2024-05-04 18:04] VITALS: O2SAT 100
--- NOTE | 2024-05-04 18:15 | ED_ITS ---
HPI HPI - Back Pain/Injury General Chief Complaint: Back Pain/Injury Stated Complaint: back pain Time Seen by Provider: 05/04/24 17:55 Source: patient Mode of arrival: walk-in History of Present Illness HPI Narrative: Patient is a 53-year-old female who returns to the emergency department for continued back pain. Patient states she had spinal surgery done at [facility] in February of last year. She has had continued pain to the lumbar spine and right paraspinal area. She was seen in this emergency department 4 days ago with concern that she might have a kidney stone. She had a CT scan that showed postsurgical changes in the lumbar spine, no evidence of pyelonephritis or kidney stones. She was found to have a UTI and was started on antibiotics. She returns to the emergency department today with uncontrolled pain. OAR[facility] report shows that the patient has been receiving regular oxycodone prescriptions from [facility] with last prescription on 04/20/2024 to last 7 days. She had an appointment last week but missed the appointment because she had COVID. She has no new peripheral paresthesias, urinary incontinence, falls or injuries. She is ambulatory and drove herself to the emergency department. She states she has had this pain since February with her surgery, pain does radiate to the right hip and into the leg occasionally. Related Data Home Medications ?Medication ?Instructions ?Recorded ?Confirmed isosorbide mononitrate 30 mg 30 mg PO DAILY 04/28/23 05/04/24 tablet,extended release 24 hr sertraline 100 mg tablet 150 mg PO DAILY 04/28/23 05/04/24 aripiprazole 10 mg tablet 10 mg PO DAILY 02/09/24 05/04/24 atorvastatin 40 mg tablet 40 mg PO DAILY 02/09/24 05/04/24 gabapentin 600 mg tablet 600 mg PO BID 02/09/24 05/04/24 melatonin 10 mg tablet 10 mg PO DAILY 02/09/24 05/04/24 naloxone 4 mg/actuation nasal spray 4 mg intranasal Q3M PRN opioid 02/09/24 05/04/24 overdose omeprazole 20 mg capsule,delayed 20 mg PO DAILY 02/09/24 05/04/24 release prazosin 2 mg capsule 2 mg PO QPM 02/09/24 05/04/24 propranolol 10 mg tablet 10 mg PO Q12H 02/09/24 05/04/24 Previous Rx's ?Medication ?Instructions ?Recorded aspirin 81 mg tablet,delayed 81 mg PO BID 30 days #60 tabs 05/03/23 release (Adult Low Dose Aspirin) cholecalciferol (vitamin D3) 125 125 mcg PO DAILY 90 days #90 caps 05/03/23 mcg (5,000 unit) capsule cephalexin 500 mg capsule 500 mg PO BID 7 days #14 caps 02/17/24 cephalexin 500 mg capsule 500 mg PO Q8H 7 days #21 caps 04/30/24 diclofenac sodium 75 mg 75 mg PO BID PRN pain #14 tabs 04/30/24 tablet,delayed release hydrocodone 5 mg-acetaminophen 325 1 tab PO Q6H PRN pain 3 days #12 05/04/24 mg tablet tabs methocarbamol 750 mg tablet 750 mg PO TID PRN pain #20 tabs 05/04/24 methylprednisolone 4 mg tablets in See Rx Instructions .Route 05/04/24 a dose pack (Medrol ([place])) .COMPLEX #21 ea Allergies Allergy/AdvReac Type Severity Reaction Status Date / Time codeine Allergy Hives Verified 04/30/24 14:11 Opioid HPI Opioid Management Most Recent Opioid Data: Last Pain Scale 8 05/04/24 18:01 05/04/24 Ur Phencyclidine Scrn Negative (NEGATIVE) 09/10/23 21:35 06/10/26 Review of Systems ROS Constitutional Denies: fever or chills Ears, nose, mouth, and throat Denies: throat pain or nasal congestion Cardiovascular Denies: chest pain Respiratory Denies: shortness of breath or cough Gastrointestinal Denies: abdominal pain, nausea or vomiting Musculoskeletal Reports: back pain; Denies: neck pain Neurological Denies: numbness in extremities or weakness in extremities Hematologic/Lymphatic Denies: easy bruising or easy bleeding [facility] Medical History (Updated 05/04/24 @ 18:13 by SHABNAM Ordonez) History of blood transfusion (2020) ?Z92.89 - Personal history of other medical treatment (ICD-10) Stress incontinence ?N39.3 - Stress incontinence (female) (male) (ICD-10) Constipation ?K59.00 - Constipation, unspecified (ICD-10) Arthritis ?M19.90 - Unspecified osteoarthritis, unspecified site (ICD-10) Back pain ?M54.9 - Dorsalgia, unspecified (ICD-10) Anemia ?D64.9 - Anemia, unspecified (ICD-10) Depression ?F32.A - Depression, unspecified (ICD-10) Anxiety ?F41.9 - Anxiety disorder, unspecified (ICD-10) COVID-19 ?U07.1 - COVID-19 (ICD-10) Electronic cigarette use ?Z78.9 - Other specified health status (ICD-10) Chronic obstructive pulmonary disease ?J44.9 - Chronic obstructive pulmonary disease, unspecified (ICD-10) GERD (gastroesophageal reflux disease) ?K21.9 - Gastro-esophageal reflux disease without esophagitis (ICD-10) Dyspnea on exertion ?R06.09 - Other forms of dyspnea (ICD-10) Irregular heart beat ?I49.9 - Cardiac arrhythmia, unspecified (ICD-10) Coronary artery disease ?I25.10 - Atherosclerotic heart disease of [place] coronary artery without angina pectoris (ICD-10) Hypertension ?I10 - Essential (primary) hypertension (ICD-10) Hallux rigidus ?M20.20 - Hallux rigidus, unspecified foot (ICD-10) Hallux valgus ?M20.10 - Hallux valgus (acquired), unspecified foot (ICD-10) Palpitation ?R00.2 - Palpitations (ICD-10) Costochondritis ?M94.0 - Chondrocostal junction syndrome [[place]] (ICD-10) Coronary vasospasm ?I20.1 - Angina pectoris with documented spasm (ICD-10) Spontaneous pneumothorax (03/2021) ?J93.83 - Other pneumothorax (ICD-10) Admission for pleural drainage tube placement ?Z46.82 - Encounter for fitting and adjustment of non-vascular catheter (ICD- 10) Surgical History (Updated 11/12/23 @ 08:54 by Harleen Holden NP) H/O foot surgery (05/03/23) ?Z98.890 - Other specified postprocedural states (ICD-10) History of cardiac catheterization ?Z98.890 - Other specified postprocedural states (ICD-10) History of foot surgery ?Z98.890 - Other specified postprocedural states (ICD-10) History of spinal surgery ?Z98.890 - Other specified postprocedural states (ICD-10) History of hysterectomy ?Z90.710 - Acquired absence of both cervix and uterus (ICD-10) Family History (Updated 03/05/23 @ 13:50 by Harleen Holden NP) Other Family history of DVT Family history of hypertension Family history of liver cancer Family history of myocardial infarction Family history of stroke Social History Within the past year, how often did you have a drink containing alcohol: never Score interpretation: A score less than 3 is consistent with normal alcohol consumption. 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 Highest level of school completed/degree received: high school graduate Little interest or pleasure in doing things: not at all Feeling down, depressed, or hopeless: not at all Exam Narrative Exam Narrative: Gen.: Awake, alert, in no distress Head: Normocephalic, atraumatic ENT: Moist mucous membranes Respiratory: No respiratory distress Gastrointestinal: Abdomen is soft, nondistended and nontender to palpation Extremities: Moves extremities equally, normal dorsiflexion and plantarflexion of the lower extremities normal hip flexion bilaterally, no decrease in s ensation to the medial thighs Back: Diffuse spinal tenderness with well-healed surgical incision of the inferior lumbar spine, diffuse tenderness of the right paraspinal muscles of the lumbar spine. No CVA tenderness or flank tenderness Psych: Normal mood and affect Neuro: No focal neuro deficit Skin: Warm, dry, intact Discharge Constitutional Vital Signs, click to edit/add: Last Vital Signs Temp 98.6 F 05/04/24 17:57 Pulse 90 05/04/24 17:57 Resp 18 05/04/24 17:57 BP 166/89 H 05/04/24 17:57 Pulse Ox 100 05/04/24 18:04 O2 Del Method Room Air 05/04/24 18:04 Course Vital Signs Vital signs: Vital Signs Temperature 98.6 F 05/04/24 17:57 Pulse Rate 90 05/04/24 17:57 Respiratory Rate 18 05/04/24 17:57 Blood Pressure 166/89 H 05/04/24 17:57 Pulse Oximetry 100 05/04/24 17:57 Oxygen Delivery Method Room Air 05/04/24 17:57 Temperature 98.6 F 05/04/24 17:57 Pulse Rate 90 05/04/24 17:57 Respiratory Rate 18 05/04/24 17:57 Blood Pressure 166/89 H 05/04/24 17:57 Pulse Oximetry 100 05/04/24 18:04 Oxygen Delivery Method Room Air 05/04/24 18:04 MDM - Back Pain/Injury MDM Narrative Medical decision making narrative: Patient with a history of chronic back pain secondary to a spinal surgery in February. She has no new focal neurodeficits, she is being properly treated with antibiotics for UTI, CT scan and labs 4 days ago were unremarkable showing postsurgical changes of the lumbar spine and no other acute abnormalities. She is hemodynamically stable with stable vital signs in the emergency department tonight. She drove herself to the emergency department so she will be treated with intramuscular Toradol and Solu-Medrol and discharged home on a short course of analgesics until she can follow-up with her primary care provider spinal surgery as well as muscle relaxant and Medrol Dosepak. Rest, ice, gentle stretching. Follow-up with PCP and return to the ER if symptoms change or worsen SUPERVISED APC VISIT, PHYSICIAN ATTESTATION: Based on the medical record the care appears appropriate. ? Medical Records Attestation: I reviewed the patient's medical records. Discharge Plan Discharge Chief Complaint: Back Pain/Injury Clinical Impression: Acute lumbar back pain Patient Disposition: Home, Self-Care Time of Disposition Decision: 18:12 Condition: Good Prescriptions / Home Meds: New hydrocodone-acetaminophen 5-325 mg tablet 1 tab PO Q6H PRN (Reason: pain) 3 Days Qty: 12 0RF Rx Instructions: DX: M54.5 methocarbamol 750 mg tablet 750 mg PO TID PRN (Reason: pain) Qty: 20 0RF methylprednisolone [Medrol ([place])] 4 mg tablets,dose pack See Rx Instructions .ROUTE .COMPLEX Qty: 21 0RF Rx Instructions: Taper as directed No Action cephalexin 500 mg capsule 500 mg PO Q8H 7 Days Qty: 21 0RF diclofenac sodium 75 mg tablet,delayed release (DR/EC) 75 mg PO BID PRN (Reason: pain) Qty: 14 0RF isosorbide mononitrate 30 mg tablet extended release 24 hr 30 mg PO DAILY sertraline 100 mg tablet 150 mg PO DAILY aspirin [Adult Low Dose Aspirin] 81 mg tablet,delayed release (DR/EC) 81 mg PO BID 30 Days Qty: 60 0RF cholecalciferol (vitamin D3) 125 mcg (5,000 unit) capsule 125 mcg PO DAILY 90 Days Qty: 90 0RF aripiprazole 10 mg tablet 10 mg PO DAILY atorvastatin 40 mg tablet 40 mg PO DAILY gabapentin 600 mg tablet 600 mg PO BID melatonin 10 mg tablet 10 mg PO DAILY naloxone 4 mg/actuation spray,non-aerosol 4 mg INTRANASAL Q3M PRN (Reason: opioid overdose) omeprazole 20 mg capsule,delayed release(DR/EC) 20 mg PO DAILY prazosin 2 mg capsule 2 mg PO QPM propranolol 10 mg tablet 10 mg PO Q12H cephalexin 500 mg capsule 500 mg PO BID 7 Days Qty: 14 0RF Print Language: Italian Instructions: Acute Low Back Pain (ED) Additional Instructions: Please contact your PCP and spinal surgeon offices for any continued testing/pain medications Referrals: Jes Cruz, [employer]AC[employer] BPM DEVELOPER [Primary Care Provider] - 1 week
[2024-05-04] MEDS: KETOROLAC TROMETHAMINE 60 MG/2 ML VIAL IM (18:19)
[2024-05-04] MEDS: METHYLPREDNISOLONE SOD SUCC PF 125 MG/2 ML VIAL IM (18:20)
== END 2024-05-04 18:24 | disposition home or self-care (01) ==
PROVIDERS: Emergency Provider Emergency Medicine; PCP Nurse Practitioner Family
DX: M54.50 Low back pain, unspecified (principal); Z86.16 Personal history of COVID-19; Z90.710 Acquired absence of both cervix and uterus; F17.210 Nicotine dependence, cigarettes, uncomplicated
CPT/HCPCS: 96372; 99284; J1885; J2919

== ENCOUNTER 2024-06-18 15:38 | Emergency (ER) | payer OTHER, SELFPAY ==
[2024-06-18 15:42] VITALS: BP 141/100; PULSE 98; TEMP 36.4; O2SAT 100; BMI 21.6
--- OUTSIDE RECORDS SUMMARY | 2024-06-18 15:47 | XMS_ITS | CCD ---
Author Organization [facility] Care Team Providers Care Silver Chaser Name Role Phone None, No PCP Unavailable [...] PARTIDA, Alexandro Hernandez Attending Unavailable PARTIDA, Alexandro R Referring Unavailable PARTIDA, Alexandro Hernandez Admitting Unavailable Ramone Garcia Admitting Unavaila Ramone Hart Consulting Unavaila Ramone Hart Attending Unavaila Ramone Hart Referring Unavaila Ramone Hart Consulting Unavaila Ramone Hart Consulting Unavaila Roosevelt Mcdermott Attending Unavailable Roosevelt Sotelo Referring Unavailable Roosevelt Sotelo Admitting Unavailable JES ROLLE Admitting Unavailable JES ROLLE Attending Unavailable OVITT, CHLOE Attending Unavailable OVITT, CHLOE Attending Unavailable OVITT, CHLOE Referring Unavailable OVITT, CHLOE Referring Unavailable OVITT, CHLOE Referring Unavailable OVITT, CHLOE Referring Unavailable KATHYLEÓN Referring Unavailable KATHY, LEÓN Referring Unavailable KATHY, LEÓN Admitting Unavailable KATHY, LEÓN Attending Unavailable LIN, CHLOE Attending Unavailable LIN, CHLOE Attending Unavailable CHLOE CEBALLOS Attending Unavailable Unavailable Unavailable Unavailable Allergies Allergy Classification Reported Allergen(s) Allergy Type Date of Onset Reaction(s) Facility Opioid Agonists (1 source) Codeine; Translations: [codeine] Drug Allergy Eruption of skin present [facility] (20 sources) Codeine; Translations: [codeine] Drug Allergy 09-03-2012 hives, Eruption of skin present [facility] [...] Daily, # 30 tab(s), Refills(s) 3, Pharmacy: [facility] 1155, 164, cm, 03/22/23 13:24:00 [...] # 30 tab(s), Refills(s) 3, Pharmacy: [facility], 164, cm, 03/22/23 13:24:00 EST, Height/Length [...] Nocturia, # 60 tab(s), Refills(s) 3, Pharmacy: [facility] 1155, 165, cm, 01/17/20 11:18:00 [...] Drug Class(es) Dates Sig (Normalized) Sig (Original) [id number] 200 actuat albuterol 0.09 mg/actuat metered dose [...] # 2 tab(s), Refills(s) 0, Pharmacy: [facility], 164, cm, 08/10/23 9:37:00 EDT, Height/Length [...] Start: 06-02-2021 take 1 capsule by mo ut once daily dilTIAZem HCl ER Coated Beads [...] pain; Translations: [Other acute postprocedural pain] Onset: 03-09-2024 Episodic Other nutritional; endocrine; and metabolic disorders [...] pain; Translations: [Muscle spasm of back] Onset: 01-27-2024 02-08-2020 Episodic Substance-related disorders (20 sources) Polysubstance [...] Chronic obstructive pulmonary disease and bronchiectasis 03-18-2023 Coagulation and hemorrhagic disorders (2 sources) Spontaneous ecchymoses; Translations: [Spontaneous ecchymoses] Onset: 02-24-2024 Episodic Complication of device; implant or graft (3 sources) Breakdown (mechanical) of internal fixation device of vertebrae, initial encounter; Translations: [Other mechanical complication of other internal orthopedic devices, implants and grafts, initial encounter] Onset: 12-02-2023 Episodic Nutritional deficiencies (1 source) Iron deficiency; Translations: [Iron deficiency] Onset: 06-09-2023 Episodic Other aftercare (1 source) Other mcfp (current) drug therapy; Translations: [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] Onset: [...] Test Name Value Interpretation Reference Range Facility Office Visiton 05-24-2024 Follow-up visit [id number] Julianne Craig 1970 F Date Provider Department Center 05/24/2024 CHLOE TOMLIN [facility] [place] Family History Problem Relation Age of Onset Coronary artery disease Mother Hypertension Mother Other Father Hypertension Father Other Daughter Comments: 05/2023 drug overdose Family Status - Relation Status Age at Mother Father Daughter Level of Service:38492 [place] POSTOP FOLLOW UP VISIT RELATED TO ORIGINAL PX Reason for Visit and Comments: Post-op [483] [facility] 36on 05-17-2024 36 Patient called back and notified her of the response. Nothing further [facility] 36 Attempted to call patient to notify her of Chloe's response, unable to leave voicemail as mailbox is full. [facility] 36on 05-16-2024 36 Patient called in asking if Chloe could prescribe her medication again. 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 Patient responded no. I asked her if she would want to see someone here instead and she agreed. Paint Technician also voiced that the last time that we had spoken on 04/20, was going to be the last time the Chloe would prescribe the medication. Patient voiced that she was in the hospital twice for the pain at [place]. She said that they had prescribed her something new and to follow up with Chloe. She is already scheduled to see Chloe on 05/24. Please advise [facility] Telephoneon 05-16-2024 Telephone [phone] Julianne Craig kash Butts 1970 F Date Provider Department Center 05/16/2024 RICK VIRAMONTES [facility] [place] Family History Problem Relation Age of Onset Coronary artery disease Mother Hypertension Mother Other Father Hypertension Father Other Daughter Comments: 05/2023 drug overdose Family Status - Relation Status Age at Mother Father Daughter [facility] 36on 04-20-2024 36 Called and spoke wit h patient notifying her that Chloe refilled her percocet and it will be the last time that she refills it. Notified her that Chloe put in a referral for pain management. I asked the patient to notify me who she would like to see that's near her and she will call me back with an answer. [facility] 36 Patient called write r asking if Chloe could prescribe the percocet to have enough until she see's Chloe next week. She states that she is not in pain until she is done with work. She also asked if a pain management referral could be placed for someone closer to home for her. Please advise. [facility] Orders Onlyon 04-20-2024 Orders Only [id number] RafaJulianne Butts 1970 F Date Provider Department Center 04/20/2024 CHLOE TOMLIN [facility] [place] Family History Problem Relation Age of Onset Coronary artery disease Mother Hypertension Mother Other Father Hypertension Father Other Daughter Comments: 05/2023 drug overdose Family Status - Relation Status Age at Mother Father Daughter [facility] 36on 04-13-2024 36 Patient is requestin g pain medication d/t the continuous pain she haves right side of back. She is scheduled to see pain medicine on 04/19/24. She can be reached at [phone]. Thank you This phone message was created by the Ambulatory float staff. If you need mission support specialist follow up regarding this patient, please make your appropriate clinic staff member aware. Thank you. [facility] Orders Onlyon 04-13-2024 Orders Only [id number] RafaJulianne Butts 1970 F Date Provider Department Center 04/13/2024 CHLOE T[facility] [place] Family History Problem Relation Age of Onset Coronary artery disease Mother Hypertension Mother Other Father Hypertension Father Other Daughter Comments: 05/2023 drug overdose Family Status - Relation Status Age at Mother Father Daughter [facility] Patient Letter FTon 2024 Patient Letter [facility] [place] Patient Letter [facility] [place] April 10, 2024 ISELA CRAIG [address] [place] [id number] : 1970 Dear Isela, You missed your [...] any future cancellations. Sincerely, [facility] [address], [place] [address] [facility] Orders Onlyon 04-03-2024 Orders Only [id number] Julianne Craig 1970 F Date Provider Department [place] 04/03/2024 CHLOE TOMLIN [facility] Second Fl Family History Problem Relation Age of Onset Coronary artery disease Mother Hypertension Mother Other Father Hypertension Father Other Daughter Comments: 05/2023 drug overdose Family Status - Relation Status Age at Mother Father Daughter [facility] 36on 03-27-2024 36 Patient called back. She asked that her letter be mailed to her. I voiced to her that Chloe sent in a week of medication in for her and patient voiced that she got a text message from her pharmacy saying it was ready for picker operator. Notified patient that after today we would not be here till for if she has any issues. Patient understood. Nothing further. Normal [facility] 36 Lvm for patient to call back Normal [facility] Complete Blood Count Auto Di ffon 03-27-2024 Basophils (Bld) [#/Vol] 0.1 10*3/uL Normal 0.0-0.2 [facility] Comment on above: Order Comment: Reaso n for Exam Primary hypertension Result Comment: PERF ORMED BY: [facility] [address] [address] PATHOLOGIST PERSONAL INVESTMENT ADVISER ОЛЬГА HULL M.D. Performed By: #### C BC, CUU, TSH3, URMACRERAT, T3F, LIPID, T4F, [id number], ADDONUAPLUS, CMP ####[place] [id number] [facility] Basophils/100 WBC (Bld) 1.3 % Normal . [facility] Comment on above: Order Comment: Reaso n for Exam Primary hypertension Performed By: #### C BC, CUU, TSH3, URMACRERAT, T3F, LIPID, T4F, [id number], ADDONUAPLUS, CMP ####[address] [address] [place] Eosinophils (Bld) [#/Vol] 0.1 10*3/uL Normal 0.0-0.45 [facility] Comment on above: Order Comment: Reaso n for Exam Primary hypertension Performed By: #### C BC, CUU, TSH3, URMACRERAT, T3F, LIPID, T4F, [id number], ADDONUAPLUS, CMP ####[address] [address] [place] Eosinophils/100 WBC (Bld) 1.0 % Normal . [facility] Comment on above: Order Comment: Reaso n for Exam Primary hypertension Performed By: #### C BC, CUU, TSH3, URMACRERAT, T3F, LIPID, T4F, [id number], ADDONUAPLUS, CMP ####[address] Erythrocyte distribution width (RBC) [Ratio] 13.3 % Normal 11.9-15.3 [facility] Comment on above: Order Comment: Reaso n for Exam Primary hypertension Performed By: #### C BC, CUU, TSH3, URMACRERAT, T3F, LIPID, T4F, [id number], ADDONUAPLUS, CMP ####[place] [id number] [facility] Hematocrit (Bld) [Volume fraction] 38.0 % Normal 34.0-46.4 [facility] Comment on above: Order Comment: Reaso n for Exam Primary hypertension Performed By: #### C BC, CUU, TSH3, URMACRERAT, T3F, LIPID, T4F, [id number], ADDONUAPLUS, CMP ####[address] Hemoglobin (Bld) [Mass/Vol] 12.6 g/dL Normal 11.8-15.4 [facility] Comment on above: Order Comment: Reaso n for Exam Primary hypertension Performed By: #### C BC, CUU, TSH3, URMACRERAT, T3F, LIPID, T4F, [id number], ADDONUAPLUS, CMP ####[address] Lymphocytes (Bld) [#/Vol] 1.7 10*3/uL Normal 1.00-4.8 [facility] Comment on above: Order Comment: Reaso n for Exam Primary hypertension Performed By: #### C BC, CUU, TSH3, URMACRERAT, T3F, LIPID, T4F, [id number], ADDONUAPLUS, CMP ####[place] [id number] [facility] Lymphocytes/100 WBC (Bld) 26.1 % Normal . [facility] Comment on above: Order Comment: Reaso n for Exam Primary hypertension Performed By: #### C BC, CUU, TSH3, URMACRERAT, T3F, LIPID, T4F, [id number], ADDONUAPLUS, CMP ####[address] MCH (RBC) [Entitic mass] 30.8 pg Normal 24.7-34.3 [facility] Comment on above: Order Comment: Reaso n for Exam Primary hypertension Performed By: #### C BC, CUU, TSH3, URMACRERAT, T3F, LIPID, T4F, [id number], ADDONUAPLUS, CMP ####[address] MCV (RBC) [Entitic vol] 93.0 fL Normal 80-100 [facility] Comment on above: Order Comment: Reaso n for Exam Primary hypertension Performed By: #### C BC, CUU, TSH3, URMACRERAT, T3F, LIPID, T4F, [id number], ADDONUAPLUS, CMP ####[address] Mean Corpuscular HGB Conc 33.1 g/dL Normal 32.0-35.0 [facility] Comment on above: Order Comment: Reaso n for Exam Primary hypertension Performed By: #### C BC, CUU, TSH3, URMACRERAT, T3F, LIPID, T4F, [id number], ADDONUAPLUS, CMP ####[address] Monocytes (Bld) [#/Vol] 0.7 10*3/uL Normal 0.0-0.8 [facility] Comment on above: Order Comment: Reaso n for Exam Primary hypertension Performed By: #### C BC, CUU, TSH3, URMACRERAT, T3F, LIPID, T4F, [id number], ADDONUAPLUS, CMP ####[address] Monocytes/100 WBC (Bld) 10.1 % Normal . [facility] Comment on above: Order Comment: Reaso n for Exam Primary hypertension Performed By: #### C BC, CUU, TSH3, URMACRERAT, T3F, LIPID, T4F, [id number], ADDONUAPLUS, CMP ####[address] Neutrophils (Bld) [#/Vol] 4.1 10*3/uL Normal 1.8-7.7 [facility] Comment on above: Order Comment: Reaso n for Exam Primary hypertension Performed By: #### C BC, CUU, TSH3, URMACRERAT, T3F, LIPID, T4F, [id number], ADDONUAPLUS, CMP ####[address] Neutrophils/100 WBC (Bld) 61.5 % Normal . [facility] Comment on above: Order Comment: Reaso n for Exam Primary hypertension Performed By: #### C BC, CUU, TSH3, URMACRERAT, T3F, LIPID, T4F, [id number], ADDONUAPLUS, CMP ####[address] NRBC% 0.1 /100{WBC} Normal 0-0.5 [facility] Comment on above: Order Comment: Reaso n for Exam Primary hypertension Performed By: #### C BC, CUU, TSH3, URMACRERAT, T3F, LIPID, T4F, [id number], ADDONUAPLUS, CMP ####[place] [id number] [facility] Platelet mean volume (Bld) [Entitic vol] 8.4 fL Normal 6.3-10.7 [facility] Comment on above: Order Comment: Reaso n for Exam Primary hypertension Performed By: #### C BC, CUU, TSH3, URMACRERAT, T3F, LIPID, T4F, [id number], ADDONUAPLUS, CMP ####[place] [id number] [facility] Platelets (Bld) [#/Vol] 460 10*3/uL High 150-450 [facility] Comment on above: Order Comment: Reaso n for Exam Primary hypertension Performed By: #### C BC, CUU, TSH3, URMACRERAT, T3F, LIPID, T4F, [id number], ADDONUAPLUS, CMP ####[place] [address] [place] [address] [facility] RBC (Bld) [#/Vol] 4.09 10*6/uL Normal 3.60-5.00 [facility] Comment on above: Order Comment: Reaso n for Exam Primary hypertension Performed By: #### C BC, CUU, TSH3, URMACRERAT, T3F, LIPID, T4F, [id number], ADDONUAPLUS, CMP ####[place] [address] [place] [id number] [facility] WBC (Bld) [#/Vol] 6.6 10*3/uL Normal 3.8-11.6 [facility] Comment on above: Order Comment: Reaso n for Exam Primary hypertension Performed By: #### C BC, CUU, TSH3, URMACRERAT, T3F, LIPID, T4F, [id number], ADDONUAPLUS, CMP ####[place] [address] [place] [id number] [facility] Comprehensive Metabolic Pane hema 03-27-2024 Albumin [Mass/Vol] 4.2 g/dL Normal 3.5-5.7 [facility] Comment on above: Order Comment: Reaso n for Exam Primary hypertension Reason for Exam Primary hypertension;Hypertriglyceridemia Reason for Exam Vitamin D deficiency Performed By: #### C BC, CUU, TSH3, URMACRERAT, T3F, LIPID, T4F, [id number], ADDONUAPLUS, CMP ####[place] [id number] [facility] Albumin/Globulin [Mass ratio] 1.6 {ratio} Normal [facility] Comment on above: Order Comment: Reaso n for Exam Primary hypertension Reason for Exam Primary hypertension;Hypertriglyceridemia Reason for Exam Vitamin D deficiency Performed By: #### C BC, CUU, TSH3, URMACRERAT, T3F, LIPID, T4F, [id number], ADDONUAPLUS, CMP ####[place] [address] [place] [address] [facility] ALP [Catalytic activity/Vol] 109 U/L High 34-104 [facility] Comment on above: Order Comment: Reaso n for Exam Primary hypertension Reason for Exam Primary hypertension;Hypertriglyceridemia Reason for Exam Vitamin D deficiency Performed By: #### C BC, CUU, TSH3, URMACRERAT, T3F, LIPID, T4F, [id number], ADDONUAPLUS, CMP ####[place] [address] [place] [address] [facility] ALT [Catalytic activity/Vol] 28 U/L Normal 7-52 [facility] Comment on above: Order Comment: Reaso n for Exam Primary hypertension Reason for Exam Primary hypertension;Hypertriglyceridemia Reason for Exam Vitamin D deficiency Performed By: #### C BC, CUU, TSH3, URMACRERAT, T3F, LIPID, T4F, [id number], ADDONUAPLUS, CMP ####[address] [address] [facility] Anion gap [Moles/Vol] 11.9 mmol/L Normal 6.0-15.0 [facility] Comment on above: Order Comment: Reaso n for Exam Primary hypertension Reason for Exam Primary hypertension;Hypertriglyceridemia Reason for Exam Vitamin D deficiency Performed By: #### C BC, CUU, TSH3, URMACRERAT, T3F, LIPID, T4F, [id number], ADDONUAPLUS, CMP ####[address] [address] [facility] AST [Catalytic activity/Vol] 24 U/L Normal 13-39 [facility] Comment on above: Order Comment: Reaso n for Exam Primary hypertension Reason for Exam Primary hypertension;Hypertriglyceridemia Reason for Exam Vitamin D deficiency Performed By: #### C BC, CUU, TSH3, URMACRERAT, T3F, LIPID, T4F, [id number], ADDONUAPLUS, CMP ####[address] [address] [facility] Bilirubin [Mass/Vol] 0.4 mg/dL Normal 0.3-1.0 [facility] Comment on above: Order Comment: Reaso n for Exam Primary hypertension Reason for Exam Primary hypertension;Hypertriglyceridemia Reason for Exam Vitamin D deficiency Performed By: #### C BC, CUU, TSH3, URMACRERAT, T3F, LIPID, T4F, [id number], ADDONUAPLUS, CMP ####[place] [address] [place] [address] [facility] Calcium [Mass/Vol] 9.6 mg/dL Normal 8.6-10.3 [facility] Comment on above: Order Comment: Reaso n for Exam Primary hypertension Reason for Exam Primary hypertension;Hypertriglyceridemia Reason for Exam Vitamin D deficiency Performed By: #### C BC, CUU, TSH3, URMACRERAT, T3F, LIPID, T4F, [id number], ADDONUAPLUS, CMP ####[address] [address] [facility] Chloride [Moles/Vol] 103 mmol/L Normal 98-107 [facility] Comment on above: Order Comment: Reaso n for Exam Primary hypertension Reason for Exam Primary hypertension;Hypertriglyceridemia Reason for Exam Vitamin D deficiency Performed By: #### C BC, CUU, TSH3, URMACRERAT, T3F, LIPID, T4F, [id number], ADDONUAPLUS, CMP ####[address] [address] [facility] CO2 [Moles/Vol] 29.8 mmol/L Normal 21.0-31.0 [facility] Comment on above: Order Comment: Reaso n for Exam Primary hypertension Reason for Exam Primary hypertension;Hypertriglyceridemia Reason for Exam Vitamin D deficiency Performed By: #### C BC, CUU, TSH3, URMACRERAT, T3F, LIPID, T4F, [id number], ADDONUAPLUS, CMP ####[place] [address] [place] [address] [facility] Creatinine [Mass/Vol] 0.79 mg/dL Normal 0.60-1.20 [facility] Comment on above: Order Comment: Reaso n for Exam Primary hypertension Reason for Exam Primary hypertension;Hypertriglyceridemia Reason for Exam Vitamin D deficiency Performed By: #### C BC, CUU, TSH3, URMACRERAT, T3F, LIPID, T4F, [id number], ADDONUAPLUS, CMP ####[place] [address] [place] [address] [facility] GFR/1.73 sq M.predicted MDRD (S/P/Bld) [Vol rate/Area] mL/min/{1.73_m2} Normal [facility] Comment on above: Order Comment: Reaso n for Exam Primary hypertension Reason for Exam Primary hypertension;Hypertriglyceridemia Reason for Exam Vitamin D deficiency Performed By: #### C BC, CUU, TSH3, URMACRERAT, T3F, LIPID, T4F, [id number], ADDONUAPLUS, CMP ####[place] [address] [place] [address] [facility] Globulin (S) [Mass/Vol] 2.7 g/dL Normal [facility] Comment on above: Order Comment: Reaso n for Exam Primary hypertension Reason for Exam Primary hypertension;Hypertriglyceridemia Reason for Exam Vitamin D deficiency Performed By: #### C BC, CUU, TSH3, URMACRERAT, T3F, LIPID, T4F, [id number], ADDONUAPLUS, CMP ####[place] [address] [place] [address] [facility] Glucose [Mass/Vol] 98 mg/dL Normal 70-100 [facility] Comment on above: Order Comment: Reaso n for Exam Primary hypertension Reason for Exam Primary hypertension;Hypertriglyceridemia Reason for Exam Vitamin D deficiency Result Comment: [place] Glucose Reference Range is dependent on time and content of last meal. Glucose of more than 200 mg/dL in a nonstressed, ambulatory subject supports the diagnosis of Diabetes Mellitus. ADA recommended reference range Performed By: #### C BC, CUU, TSH3, URMACRERAT, T3F, LIPID, T4F, [id number], ADDONUAPLUS, CMP ####[facility] [place] [address] [facility] Potassium [Moles/Vol] 4.7 mmol/L Normal 3.5-5.1 [facility] Comment on above: Order Comment: Reaso n for Exam Primary hypertension Reason for Exam Primary hypertension;Hypertriglyceridemia Reason for Exam Vitamin D deficiency Performed By: #### C BC, CUU, TSH3, URMACRERAT, T3F, LIPID, T4F, [id number], ADDONUAPLUS, CMP ####[facility] [id number] [place] [address] [facility] Protein [Mass/Vol] 6.9 g/dL Normal 6.4-8.9 [facility] Comment on above: Order Comment: Reaso n for Exam Primary hypertension Reason for Exam Primary hypertension;Hypertriglyceridemia Reason for Exam Vitamin D deficiency Performed By: #### C BC, CUU, TSH3, URMACRERAT, T3F, LIPID, T4F, [id number], ADDONUAPLUS, CMP ####[place] [address] [place] [address] [facility] Sodium [Moles/Vol] 140 mmol/L Normal 136-145 [facility] Comment on above: Order Comment: Reaso n for Exam Primary hypertension Reason for Exam Primary hypertension;Hypertriglyceridemia Reason for Exam Vitamin D deficiency Performed By: #### C BC, CUU, TSH3, URMACRERAT, T3F, LIPID, T4F, [id number], ADDONUAPLUS, CMP ####[facility] [id number] [place] [address] [facility] Urea nitrogen [Mass/Vol] 12 mg/dL Normal 7-25 [facility] Comment on above: Order Comment: Reaso n for Exam Primary hypertension Reason for Exam Primary hypertension;Hypertriglyceridemia Reason for Exam Vitamin D deficiency Performed By: #### C BC, CUU, TSH3, URMACRERAT, T3F, LIPID, T4F, [id number], ADDONUAPLUS, CMP ####[facility] [id number] [place] [address] [facility] Dipstick and Microscopicon 1 05-28-2023 Appearance (U) Clear Normal Clear [facility] Comment on above: Order Comment: Reaso n for Exam Urinary frequency Name Collection Type:: Voided Performed By: #### C BC, CUU, TSH3, URMACRERAT, T3F, LIPID, T4F, [id number], ADDONUAPLUS, CMP ####[address] [address] [facility] Bacteria,Urine Rare Normal None Seen [facility] Comment on above: Order Comment: Reaso n for Exam Urinary frequency Name Collection Type:: Voided Performed By: #### C BC, CUU, TSH3, URMACRERAT, T3F, LIPID, T4F, [id number], ADDONUAPLUS, CMP ####[address] [address] [facility] Bilirubin,Urine Negative Normal Negative [facility] Comment on above: Order Comment: Reaso n for Exam Urinary frequency Name Collection Type:: Voided Performed By: #### C BC, CUU, TSH3, URMACRERAT, T3F, LIPID, T4F, [id number], ADDONUAPLUS, CMP ####[address] Color (U) Yellow Normal Yellow [facility] Comment on above: Order Comment: Reaso n for Exam Urinary frequency Name Collection Type:: Voided Performed By: #### C BC, CUU, TSH3, URMACRERAT, T3F, LIPID, T4F, [id number], ADDONUAPLUS, CMP ####[address] [address] [facility] Glucose Ql (U) Normal Normal Normal [facility] Comment on above: Order Comment: Reaso n for Exam Urinary frequency Name Collection Type:: Voided Performed By: #### C BC, CUU, TSH3, URMACRERAT, T3F, LIPID, T4F, [id number], ADDONUAPLUS, CMP ####[address] [address] [facility] Hyaline Casts,Urine None Normal 0-8 [facility] Comment on above: Order Comment: Reaso n for Exam Urinary frequency Name Collection Type:: Voided Performed By: #### C BC, CUU, TSH3, URMACRERAT, T3F, LIPID, T4F, [id number], ADDONUAPLUS, CMP ####[address] [place] [address] [facility] Ketones Ql (U) Negative Normal Negative [facility] Comment on above: Order Comment: Reaso n for Exam Urinary frequency Name Collection Type:: Voided Performed By: #### C BC, CUU, TSH3, URMACRERAT, T3F, LIPID, T4F, [id number], ADDONUAPLUS, CMP ####[address] [address] [facility] Leukocyte esterase Test strip Ql (U) 2+ High Negative [facility] Comment on above: Order Comment: Reaso n for Exam Urinary frequency Name Collection Type:: Voided Performed By: #### C BC, CUU, TSH3, URMACRERAT, T3F, LIPID, T4F, [id number], ADDONUAPLUS, CMP ####[address] [address] [facility] Mucus,Urine 2+ Critically abnormal [facility] Comment on above: Order Comment: Reaso n for Exam Urinary frequency Name Collection Type:: Voided Result Comment: PERF ORMED BY: [facility] [address] [place] [id number] PATHOLOGIST PERSONAL INVESTMENT ADVISER ОЛЬГА HULL M.D. Performed By: #### C BC, CUU, TSH3, URMACRERAT, T3F, LIPID, T4F, [id number], ADDONUAPLUS, CMP ####[address] [address] [facility] Nitrite,Urine Negative Normal Negative [facility] Comment on above: Order Comment: Reaso n for Exam Urinary frequency Name Collection Type:: Voided Performed By: #### C BC, CUU, TSH3, URMACRERAT, T3F, LIPID, T4F, [id number], ADDONUAPLUS, CMP ####[address] [place] [address] [facility] Occult Blood,Urine Trace High Negative [facility] Comment on above: Order Comment: Reaso n for Exam Urinary frequency Name Collection Type:: Voided Result Comment: PERF ORMED BY: [facility] [address] [place] [address] PATHOLOGIST PERSONAL INVESTMENT ADVISER ОЛЬГА HULL M.D. Performed By: #### C BC, CUU, TSH3, URMACRERAT, T3F, LIPID, T4F, [id number], ADDONUAPLUS, CMP ####[address] [address] [facility] pH (U) 6.0 [pH] Normal 5.0-9.0 [facility] Comment on above: Order Comment: Reaso n for Exam Urinary frequency Name Collection Type:: Voided Performed By: #### C BC, CUU, TSH3, URMACRERAT, T3F, LIPID, T4F, [id number], ADDONUAPLUS, CMP ####[place] [id number] [facility] Protein,Urine Negative Normal Negative [facility] Comment on above: Order Comment: Reaso n for Exam Urinary frequency Name Collection Type:: Voided Performed By: #### C BC, CUU, TSH3, URMACRERAT, T3F, LIPID, T4F, [id number], ADDONUAPLUS, CMP ####[place] [id number] [facility] RBC,Urine 1 [HPF] Normal 0-4 [facility] Comment on above: Order Comment: Reaso n for Exam Urinary frequency Name Collection Type:: Voided Performed By: #### C BC, CUU, TSH3, URMACRERAT, T3F, LIPID, T4F, [id number], ADDONUAPLUS, CMP ####[address] [address] [facility] Specificy [place],Urine 1.020 Normal 1.001-1.030 [facility] Comment on above: Order Comment: Reaso n for Exam Urinary frequency Name Collection Type:: Voided Performed By: #### C BC, CUU, TSH3, URMACRERAT, T3F, LIPID, T4F, [id number], ADDONUAPLUS, CMP ####[address] [address] [facility] Squamous Epithelial Cell,Urine 3 [HPF] High 0-2 [facility] Comment on above: Order Comment: Reaso n for Exam Urinary frequency Name Collection Type:: Voided Performed By: #### C BC, CUU, TSH3, URMACRERAT, T3F, LIPID, T4F, [id number], ADDONUAPLUS, CMP ####[address] [address] [facility] Urobilinogen,Urine Normal Normal Normal [facility] Comment on above: Order Comment: Reaso n for Exam Urinary frequency Name Collection Type:: Voided Performed By: #### C BC, CUU, TSH3, URMACRERAT, T3F, LIPID, T4F, [id number], ADDONUAPLUS, CMP ####[address] [address] [facility] WBC,Urine 3 [HPF] Normal 0-4 [facility] Comment on above: Order Comment: Reaso n for Exam Urinary frequency Name Collection Type:: Voided Performed By: #### C BC, CUU, TSH3, URMACRERAT, T3F, LIPID, T4F, [id number], ADDONUAPLUS, CMP ####[address] [address] [facility] Free T4 (Free Thyroxine)on 05-28-2023 Free T4 [Mass/Vol] 0.82 ng/dL Normal 0.61-1.12 [facility] Comment on above: Order Comment: Reaso n for Exam Primary hypertension Reason for Exam Primary hypertension;Hypertriglyceridemia Reason for Exam Vitamin D deficiency Performed By: #### C BC, CUU, TSH3, URMACRERAT, T3F, LIPID, T4F, [id number], ADDONUAPLUS, CMP ####[address] [address] [facility] Letter (Out)on 03-27-2024 Letter (Out) [id number] Julianne Craig 1970 F Date Provider Department Center 03/27/2024 CHLOE TOM[facility] SURG [place] Family History Problem Relation Age of Onset Coronary artery disease Mother Hypertension Mother Other Father Hypertension Father Other Daughter Comments: 05/2023 drug overdose Family Status - Relation Status Age at Mother Father Daughter Normal [facility] Lipid Panelon 03-27-2024 Cholesterol [Mass/Vol] 141 mg/dL Normal 140-200 [facility] Comment on above: Order Comment: Reaso n for Exam Primary hypertension Reason for Exam Primary hypertension;Hypertriglyceridemia Reason for Exam Vitamin D deficiency Result Comment: Chol less than 200 mg/dl low risk Chol 201-239 mg/dl borderline risk Chol 240 mg/dl and greater high risk Performed By: #### C BC, CUU, TSH3, URMACRERAT, T3F, LIPID, T4F, [id number], ADDONUAPLUS, CMP ####[facility] [address] [place] [address] [facility] Cholesterol in HDL [Mass/Vol] 36 mg/dL Normal 23-92 [facility] Comment on above: Order Comment: Reaso n for Exam Primary hypertension Reason for Exam Primary hypertension;Hypertriglyceridemia Reason for Exam Vitamin D deficiency Result Comment: HDL CHOL ATP-III CLASSIFICATION Cardiovascular Risk HDL > or equal to 60 mg/dL LOW HDL < 40 mg/dL HIGH Performed By: #### C BC, CUU, TSH3, URMACRERAT, T3F, LIPID, T4F, [id number], ADDONUAPLUS, CMP ####[facility] [place] [address] [facility] Cholesterol.total/Chol esterol in HDL [Mass ratio] 3.9 {ratio} Normal <5.0 [facility] Comment on above: Order Comment: Reaso n for Exam Primary hypertension Reason for Exam Primary hypertension;Hypertriglyceridemia Reason for Exam Vitamin D deficiency Performed By: #### C BC, CUU, TSH3, URMACRERAT, T3F, LIPID, T4F, [id number], ADDONUAPLUS, CMP ####[facility] [address] [place] [address] [facility] LDL Cholesterol,Calculated 78 mg/dL Normal 0-100 [facility] Comment on above: Order [...] BC, CUU, TSH3, URMACRERAT, T3F, LIPID, T4F, [id number], ADDONUAPLUS, CMP ####[place] [address] Triglyceride w/Reflex 136 mg/dL Normal 0-149 [facility] Comment on above: [...] BC, CUU, TSH3, URMACRERAT, T3F, LIPID, T4F, [id number], ADDONUAPLUS, CMP ####[place] [address] VLDL CHOLESTEROL 27 mg/dL Normal [facility] Comment on above: Order Comment: Reaso n for Exam Primary hypertension Reason for Exam Primary hypertension;Hypertriglyceridemia Reason for Exam Vitamin D deficiency Performed By: #### C BC, CUU, TSH3, URMACRERAT, T3F, LIPID, T4F, [id number], ADDONUAPLUS, CMP ####[facility] MicroAlb Creat Ratio,Uon Albumin DL <= 20 mg/L (U) [Mass/Vol] 0.8 mg/dL Normal 0.0-1.8 [facility] Comment on above: Order Comment: Reaso n for Exam Urinary frequency;Primary hypertension Performed By: #### C BC, CUU, TSH3, URMACRERAT, T3F, LIPID, T4F, [id number], ADDONUAPLUS, CMP ####[facility] [place] [address] [facility] Creatinine, Urine (Random) 177.00 mg/dL Normal [facility] Comment on above: Order Comment: Reaso n for Exam Urinary frequency;Primary hypertension Result Comment: No r eference range established Performed By: #### C BC, CUU, TSH3, URMACRERAT, T3F, LIPID, T4F, [id number], ADDONUAPLUS, CMP ####[facility] [place] [address] [facility] Microalbumin/Creatinin e Ratio 4.5 mg/g Normal 0.0-30.0 [facility] Comment on above: Order Comment: Reaso n for Exam Urinary frequency;Primary hypertension Result Comment: 30-3 00 mg/g indicates an increased risk for diabetic nephropathy. Greater than 300 mg/g is consistent with clinical nephropathy. (Am. J. Kidney Disease 1995, 25:107) PERFORMED BY: [facility] [address] [place] [address] PATHOLOGIST PERSONAL INVESTMENT ADVISER ОЛЬГА HULL M.D. Performed By: #### C BC, CUU, TSH3, URMACRERAT, T3F, LIPID, T4F, [id number], ADDONUAPLUS, CMP ####[facility] [place] [address] [facility] Orders Onlyon 03-27-2024 Orders Only [id number] Julianne Craig 1970 F Date Provider Department Center 03/27/2024 [facility]LOE [place] [facility] SURG [place] Family History Problem Relation Age of Onset Coronary artery disease Mother Hypertension Mother Other Father Hypertension Father Other Daughter Comments: 05/2023 drug overdose Family Status - Relation Status Age at Mother Father Daughter Normal [facility] Thyroid Stimulating Hormoneo n 03-27-2024 TSH Qn 0.78 m[IU]/L Normal 0.45-5.33 [facility] Comment on above: Order Comment: Reaso n for Exam Primary hypertension Reason for Exam Primary hypertension;Hypertriglyceridemia Reason for Exam Vitamin D deficiency Performed By: #### C BC, CUU, TSH3, URMACRERAT, T3F, LIPID, T4F, [id number], ADDONUAPLUS, CMP ####[address] [address] [facility] Triiodothyronine (T3) Freeon 03-27-2024 Triiodothyronine (T3) Free 3.27 pg/mL Normal 2.50-3.90 [facility] Comment on above: Order Comment: Reaso n for Exam Primary hypertension Result Comment: PERF ORMED BY: [place] [id number] PATHOLOGIST PERSONAL INVESTMENT ADVISER ОЛЬГА HULL M.D. Performed By: #### C BC, CUU, TSH3, URMACRERAT, T3F, LIPID, T4F, [id number], ADDONUAPLUS, CMP ####[address] [address] [facility] Urine Cultureon 03-27-2024 Bacteria identified Cx Nom (U) Reason for Exam Urinary frequency Urine No Growth 2 Days PERFORMED BY: [address] [address] PATHOLOGIST PERSONAL INVESTMENT ADVISER ОЛЬГА HULL M.D. Normal [facility] Comment on above: Performed By: #### C BC, CUU, TSH3, URMACRERAT, T3F, LIPID, T4F, [id number], ADDONUAPLUS, CMP ####[address] [address] [facility] Vitamin D 25 Hydroxy Totalon 03-27-2024 Vitamin D 25 Hydroxy Total 30.0 ng/mL Normal 30-100 [facility] Comment on above: [...] practice guideline. JCEM. 2010; 96(7):1911-30. PERFORMED BY: [facility] [address] [place] [id number] PATHOLOGIST PERSONAL INVESTMENT ADVISER ОЛЬГА HULL M.D. Performed By: #### C BC, CUU, TSH3, URMACRERAT, T3F, LIPID, T4F, [id number], ADDONUAPLUS, CMP ####[facility] [address] [place] [address] [facility] Office Visiton 03-23-2024 Follow-up visit [id number] Julianne Craig 1970 F Date Provider Department Center 03/23/2024 [facility] SURG Second Fl Family History Problem Relation Age of Onset Coronary artery disease Mother Hypertension Mother Other Father Hypertension Father Other Daughter Comments: 05/2023 drug overdose Family Status - Relation Status Age at Mother Father Daughter Level of Service:69[address] [place] POSTOP FOLLOW UP VISIT RELATED TO ORIGINAL PX Reason for Visit and Comments: Post-op [483] - Patient is here today for a post op appt Removal of hardware L4-S1--screws and rods Normal [facility] Orders Onlyon 03-17-2024 Orders Only [id number] Julianne Craig 1970 F Date Provider Department Center 03/17/2024 LEÓN FUENTES [facility] SURG Second Fl Family History Problem Relation Age of Onset Coronary artery disease Mother Hypertension Mother Other Father Hypertension Father Other Daughter Comments: 05/2023 drug overdose Family Status - Relation Status Age at Mother Father Daughter Normal [facility] Refillon 03-16-2024 Refill [id number] Julianne Craig 1970 F Date Provider Department Center 03/16/2024 [facility] 6AB None Family History Problem Relation Age of Onset Coronary artery disease Mother Hypertension Mother Other Father Hypertension Father Other Daughter Comments: 05/2023 drug overdose Family Status - Relation Status Age at Mother Father Daughter Reason for Visit and Comments: Med Refill [[id number]] [facility] 30on 03-10-2024 30 Face to face for shower chair and raised toilet seat: Needs shower chair and raised toilet seat due to safety deficits with mobility related activities of daily living. Deficits can be safely resolved with use of this durable medical equipment. Prescriptions were provided. Length of need: 99 months. Height: 165.1 cm. Weight: 70.7 kg. Normal [facility] BASIC METABOLIC PANELon 12-0 Anion gap [Moles/Vol] 10 mmol/L Normal 7-20 [facility] Comment on above: Performed By: #### L [id number] ####[facility] (BEAKER)[address] [employer] [place] [address] Calcium [Mass/Vol] 8.6 mg/dL Normal 8.6-10.3 [facility] Comment on above: Performed By: #### L [id number] ####[facility] (BEAKER)[address] [place], [place] [address] Chloride [Moles/Vol] 108 mmol/L High 98-107 [facility] Comment on above: Performed By: #### L [id number] ####[facility] (BEAKER)[address] [place] [address] CO2 [Moles/Vol] 27 mmol/L Normal 21-31 [facility] Comment on above: Performed By: #### L [id number] ####[facility] (BEAKER)[address] [place] [address] Creatinine [Mass/Vol] 0.81 mg/dL Normal 0.60-1.20 [facility] Comment on above: Performed By: #### L [id number] ####[facility] (BEAKER)[address] [employer] [place] [address] GLOMERULAR FILTRATION RATE ML/MIN/1.73 SQ M.PREDICTED 87.3 mL/min/1.73m*2 Normal >60.0 [facility] Comment on above: Result Comment: [facility]???s estimated glomerular filtration rate (eGFR) will [...] of individuals. Performed By: #### L [id number] ####[facility] ([facility] [place] [address] Glucose [Mass/Vol] 103 mg/dL High 70-100 [facility] Comment on above: Performed By: #### L [id number] ####[facility] ([facility])[address] [facility] [place] [address] Potassium [Moles/Vol] 3.8 mmol/L Normal 3.5-5.1 [facility] Comment on above: Performed By: #### L [id number] ####[facility] ([facility])[address] [place] [address] Sodium [Moles/Vol] 141 mmol/L Normal 136-145 [facility] Comment on above: Performed By: #### L [id number] ####[facility] ([facility])[address] [facility] [place] [address] Urea nitrogen [Mass/Vol] 8 mg/dL Normal 7-25 [facility] Comment on above: Performed By: #### L [id number] ####[facility] ([facility])[address] [place] [address] UREA NITROGEN/CREATININE (MASS RATIO) IN SER/PLAS 9.9 Normal [facility] Comment on above: Performed By: #### L [id number] ####[facility] ([facility])[address] [facility] [place] [address] CBC WITH AUTO DIFFERENTIALon 03-10-2024 Basophils (Bld) [#/Vol] 0.01 10*3/uL Normal 0.00-0.20 [facility] Comment on above: Performed By: #### L [id number] #### [facility] ([facility]) [address] [place] [address] Basophils/100 WBC (Bld) 0.1 % Normal 0.0-1.0 [facility] Comment on above: Performed By: #### L [id number] #### [facility] (BEAKER) [address] [place] [address] Eosinophils (Bld) [#/Vol] 0.21 10*3/uL Normal 0.00-0.50 [facility] Comment on above: Performed By: #### L [id number] #### [facility] ([facility]AKER) [address] [place] [address] Eosinophils/100 WBC (Bld) 2.9 % Normal 0.0-6.0 [facility] Comment on above: Performed By: #### L [id number] #### [facility] ([facility] [address] [place] [address] Erythrocyte distribution width (RBC) [Ratio] 13.7 % Normal 11.5-15.0 [facility] Comment on above: Performed By: #### L [id number] #### [facility] ([facility]) [address] [place] [place] [address] ERYTHROCYTE MEAN CORPUSCULAR HEMOGLOBIN CONCENTRATION (G/DL) BY AUTOMATED 33.3 g/dL Normal 32.0-35.0 [facility] Comment on above: Performed By: #### L [id number] #### [facility] ([facility]ER) [address] [place] [address] Hematocrit (Bld) [Volume fraction] 35.7 % Low 36.0-48.0 [facility] Comment on above: Performed By: #### L [id number] #### [facility] (BEAKER) [address] [place] [address] Hemoglobin (Bld) [Mass/Vol] 11.9 g/dL Low 12.0-15.0 [facility] Comment on above: Performed By: #### L [id number] #### [facility] (BEAKER) [address] [place] [address] Immature granulocytes (Bld) [#/Vol] 0.02 10*3/uL Normal 0.00-0.20 [facility] Comment on above: Performed By: #### L [id number] #### [facility] ([facility]ER) [address] [place] [address] Immature granulocytes/100 WBC (Bld) 0.3 % Normal 0.0-1.0 [facility] Comment on above: Performed By: #### L [id number] #### [facility] ([facility] [address] [place] [address] Lymphocytes (Bld) [#/Vol] 0.74 10*3/uL Low 1.20-4.00 [facility] Comment on above: Performed By: #### L [id number] #### [facility] ([facility] [address] [place] [address] Lymphocytes/100 WBC (Bld) 10.3 % Low 20.0-45.0 [facility] Comment on above: Performed By: #### L [id number] #### [facility] ([facility]) [address] [place] [address] MCH (RBC) [Entitic mass] 30.7 pg Normal 27.0-33.0 [facility] Comment on above: Performed By: #### L [id number] #### [facility] ([facility]) [address] [place] [address] MCV (RBC) [Entitic vol] 92.2 fL Normal 82.0-98.0 [facility] Comment on above: Performed By: #### L [id number] #### [facility] ([facility]ER) [address] [place] [address] Monocytes (Bld) [#/Vol] 1.01 10*3/uL High 0.10-1.00 [facility] Comment on above: Performed By: #### L [id number] #### [facility] ([facility]ER) [address] [place] [address] Monocytes/100 WBC (Bld) 14.0 % High 5.0-12.0 [facility] Comment on above: Performed By: #### L [id number] #### [facility] ([facility]) [address] [place] [address] Neutrophils (Bld) [#/Vol] 5.22 10*3/uL Normal 1.60-7.60 [facility] Comment on above: Performed By: #### L [id number] #### [facility] ([facility]) [address] [place] [address] Neutrophils/100 WBC (Bld) 72.4 % High 40.0-72.0 [facility] Comment on above: Performed By: #### L [id number] #### [facility] ([facility]) [address] [place] [address] NRBC (PER 100 WBCS) BY AUTOMATED COUNT 0.0 % Normal 0 [facility] Comment on above: Performed By: #### L [id number] #### [facility] ([facility]) [address] [place] [address] PLATELETS (10*3/UL) IN BLOOD AUTOMATED COUNT 228 10*3/uL Normal 150-400 [facility] Comment on above: Performed By: #### L [id number] #### [facility] ([facility]) [address] [place] [address] RBC (Bld) [#/Vol] 3.87 10*6/uL Normal 3.80-5.00 [facility] Comment on above: Performed By: #### L [id number] #### [facility] ([facility]) [address] [place] [address] WBC (Bld) [#/Vol] 7.21 10*3/uL Normal 4.00-10.60 [facility] Comment on above: Performed By: #### L [id number] #### [facility] ([facility]) [address] [place] [address] DSon 03-10-2024 DS Admission Admitted 03/09/2024 for Loosening of hardware in spine. Discharge Diagnosis Loosening of hardware in spine ([facility]) Discharge Disposition Home or Self Care (01) [...] propylene glycol 99.5 % (not less than, CARE HOME) liquid external solution STOP taking these medications chlorhexidine 4 % external liquid Commonly known as: Hibiclens diazePAM 5 mg tablet Commonly known as: Valium traMADol 50 mg tablet Commonly known as: Ultram Where to Get Your Medications These medications were sent to [facility] - [place], [place] - [address], [facility] [address] docusate sodium 100 mg capsule ketorolac 10 [...] Lab Results L (more content not included)... Normal [facility] HPon 03-09-2024 HP H&P reviewed. The patient was examined and there are no changes to the H&P. Normal [facility] OPNOTEon 03-09-2024 OPNOTE Date: 03/09/2024 Location: [facility] OR Name: Isela Craig, : 1970, Diagnosis Pre-op Diagnosis * Loosening of hardware in spine (CMS/HCC) [T84.498A] Post-op Diagnosis * Loosening of hardware in spine ([facility]/HCC) [T84.498A] Procedures * L4-S1 Removal of Hardware(Screws and Rods) CA REMOVAL POSTERIOR SEGMENTAL INSTRUMENTATION [55012] Surgeons Primary: León Yee MD Procedure Summary Anesthesia: General ASA: II Estimated Blood Loss: Minimal Drains: * None in log * Staff: Managed Care Provider: Tulio Peace RN Scrub Person: Pamela Rodriguez CST Pilling Machine Operator: Fatmata Don RN; Dashawn Lezama CSA Indications: Isela Craig is an 53 y.o. female who is having surgery for Loosening of hardware in spine (CMS/HCC) [T84.498A]. Findings: Right S1 screw fractured. Well developed fusion mass. Complications: None; patient tolerated the procedure well. Disposition: PACU - hemodynamically stable. Condition: stable Specimens Collected: Order Name Source Comment Collection Info Order Time URINE QUALITATIVE Urine, Clean Catch 03/09/2024 10:45 AM Release to Patient Immediately Attending Attestation: I performed the procedure. León Yee [facility] OPNOTE L4-S1 Removal of Hardware(Screws and Rods) Operative Note Date: 03/09/2024 Location: [facility] OR Name: Isela Craig, : 1970, Diagnosis Pre-op Diagnosis * Loosening of hardware in spine (CMS/HCC) [T84.498A] Post-op Diagnosis * Loosening of hardware in spine ([facility]) [T84.498A] Procedures * L4-S1 Removal of Hardware(Screws and Rods) CA REMOVAL POSTERIOR SEGMENTAL INSTRUMENTATION [66508] Surgeons Primary: León Yee MD Procedure Summary Anesthesia: General ASA: II Estimated Blood Loss: 100 cc Drains: * None in log * Staff: Managed Care Provider: Tulio Peace RN Scrub Person: Pamela Rodriguez CST Pilling Machine Operator: Fatmata Don RN; Dashawn Lezama CSA Indications: Isela Craig is an 53 y.o. female who is having surgery for Loosening of hardware in spine ([facility]) [T84.498A]. She had undergone a L4-S1 posterior [...] rods were mobilized with a Kofi needle hazardous materials driver and removed. The heads of each [...] was reversed a (more content not included)... Normal [facility] POCT GLUCOSE METER UNSOLICIT ED RESULTSon 03-09-2024 Glucose [Mass/Vol] 95 mg/dL Normal 70-105 [facility] Comment on above: Order Comment: Waive d Testing in the ED is performed under the ED CLIA certificate #[id number]. Result Comment: sylast ez Performed By: #### L [id number] #### [facility] HOSPITAL LAB (BEAKER) [address] [place] [address] Glucose [Mass/Vol] 88 mg/dL Normal 70-105 [facility] Comment on above: Order Comment: Waive d Testing in the ED is performed under the ED CLIA certificate #[id number]. Result Comment: acle ment Performed By: #### L [id number] #### [facility] HOSPITAL LAB (BEAKER) [address] [place] [address] Patient Letter FTon 2023 Patient Letter FT Patient Letter [facility] [place] March 06, 2024 ISELA CRAIG [address] [place] [id number] : 1970 Dear Isela, You missed your [...] any future cancellations. Sincerely, [facility] [address], [place] [address] [facility] 3603-01-2024 36 Pt will not need new EKG, had one in DecShyanne Chaney for 1 year. [facility] 36on 02-28-2024 36 Called pt to discuss MSSA results. Pt states that she had her EKG done at [facility]. I called and spoke with [facility]. Pt had EKG done on 02/16/24, however, is not signed. Will call daily until signed and obtain EKG. Lawrence Cochran HIM: [phone]. [facility] 36 Discussed with pt. P t verbalized understanding. [facility] 36 CHG wash sent to pharmacy. LVM with pt to discuss. [facility] 36on 02-25-2024 36 +MSSA. I ordered the nasal povidone iodine for preop. She will need 5 days of chlorhexidine prior to OR. OR 03/09. Thank you. [facility] 36 Patient had voiced i n yesterday's pre op appointment that she had a recent EKG done at [facility]. Paint Technician reached out to [facility], they stated that the last one she had completed was on 12/14. Paint Technician called patient to notify her that she needs to get a new EKG completed and patient then said she had a recent one done at [facility] [address]. Sending request to [phone] [facility] Prep for Procedureon 024 Prep for Procedure [id number] Julianne Craig 1970 F Date Provider Department Center 02/25/2024 CHLOE TOMLIN [facility] SURG Second Fl Family History Problem Relation Age of Onset Coronary artery disease Mother Hypertension Mother Other Father Hypertension Father Other Daughter Comments: 05/2023 drug overdose Family Status - Relation Status Age at Mother Father Daughter [facility] Telephoneon 02-25-2024 Telephone [id number] Julianne Craig 1970 F Date Provider Department Center 02/25/2024 RICK VIRAMONTES [facility] SURG Second Fl Family History Problem Relation Age of Onset Coronary artery disease Mother Hypertension Mother Other Father Hypertension Father Other Daughter Comments: 05/2023 drug overdose Family Status - Relation Status Age at Mother Father Daughter [facility] Telephone [phone] Julianne Craig 1970 F Date Provider Department Center 02/25/2024 CHLOE TOMLIN [facility] SURG Second Fl Family History Problem Relation Age of Onset Coronary artery disease Mother Hypertension Mother Other Father Hypertension Father Other Daughter Comments: 05/2023 drug overdose Family Status - Relation Status Age at Mother Father Daughter Normal [facility] APTTon 02-24-2024 ACTIVATED PARTIAL THROMBOPLASTIN TIME IN PPP BY COAGULATION ASSAY 27.5 Seconds Normal 25.0-35.0 [facility] Comment on above: Result Comment: Clin ical significance of the APTT is questionable in the presence of heparin. Performed By: #### L [id number] #### [facility] ([facility]) [address] [place] [address] BASIC METABOLIC PANELon 02-04 Anion gap [Moles/Vol] 12 mmol/L Normal 7-20 [facility] Comment on above: Performed By: #### L [id number] #### [facility] ([facility]) [address] [place] [address] Calcium [Mass/Vol] 9.6 mg/dL Normal 8.6-10.3 [facility] Comment on above: Performed By: #### L [id number] #### [facility] ([facility]) [address] [place] [address] Chloride [Moles/Vol] 104 mmol/L Normal 98-107 [facility] Comment on above: Performed By: #### L [id number] #### [facility] ([facility]) [address] [place] [address] CO2 [Moles/Vol] 27 mmol/L Normal 21-31 [facility] Comment on above: Performed By: #### L [id number] #### [facility] ([facility]) [address] [place] [address] Creatinine [Mass/Vol] 0.77 mg/dL Normal 0.60-1.20 [facility] Comment on above: Performed By: #### L [id number] #### [facility] ([facility]) [address] [place] [address] GLOMERULAR FILTRATION RATE ML/MIN/1.73 SQ M.PREDICTED 92.8 mL/min/1.73m*2 Normal >60.0 [facility] Comment on above: Result Comment: [facility]???s estimated glomerular filtration rate (eGFR) will [...] individuals. Performed By: #### L [id number] #### [facility] ([facility]) [address] [facility] [place] [address] Glucose [Mass/Vol] 83 mg/dL Normal 70-100 [facility] Comment on above: Performed By: #### L [id number] #### [facility] ([facility]) [address] [place] [address] Potassium [Moles/Vol] 3.6 mmol/L Normal 3.5-5.1 [facility] Comment on above: Performed By: #### L [id number] #### [facility] ([facility]) [address] [facility] [address] Sodium [Moles/Vol] 139 mmol/L Normal 136-145 [facility] Comment on above: Performed By: #### L [id number] #### [facility] ([facility]) [address] [place] [address] Urea nitrogen [Mass/Vol] 12 mg/dL Normal 7-25 [facility] Comment on above: Performed By: #### L [id number] #### [facility] ([facility]) [address] [place] [address] UREA NITROGEN/CREATININE (MASS RATIO) IN SER/PLAS 15.6 Normal [facility] Comment on above: Performed By: #### L [id number] #### [facility] ([facility]) [address] [place] [address] CBC WITH AUTO DIFFERENTIALon 02-24-2024 Basophils (Bld) [#/Vol] 0.07 10*3/uL Normal 0.00-0.20 [facility] Comment on above: Performed By: #### L [id number] #### [facility] (BEAKER) [address] [place] [address] Basophils/100 WBC (Bld) 0.8 % Normal 0.0-1.0 [facility] Comment on above: Performed By: #### L [id number] #### [facility] (BEAKER) [address] [place] [address] Eosinophils (Bld) [#/Vol] 0.12 10*3/uL Normal 0.00-0.50 [facility] Comment on above: Performed By: #### L [id number] #### [facility] (BEAKER) [address] [place] [address] Eosinophils/100 WBC (Bld) 1.4 % Normal 0.0-6.0 [facility] Comment on above: Performed By: #### L [id number] #### [facility] (BEAKER) [address] [place] [address] Erythrocyte distribution width (RBC) [Ratio] 14.0 % Normal 11.5-15.0 [facility] Comment on above: Performed By: #### L [id number] #### [facility] (BEAKER) [address] [place] [address] ERYTHROCYTE MEAN CORPUSCULAR HEMOGLOBIN CONCENTRATION (G/DL) BY AUTOMATED 33.0 g/dL Normal 32.0-35.0 [facility] Comment on above: Performed By: #### L [id number] #### [facility] (BEAKER) [address] [place] [address] Hematocrit (Bld) [Volume fraction] 41.2 % Normal 36.0-48.0 [facility] Comment on above: Performed By: #### L [id number] #### [facility] (BEAKER) [address] [place] [address] Hemoglobin (Bld) [Mass/Vol] 13.6 g/dL Normal 12.0-15.0 [facility] Comment on above: Performed By: #### L [id number] #### [facility] ([facility]) [address] [place] [address] Immature granulocytes (Bld) [#/Vol] 0.02 10*3/uL Normal 0.00-0.20 [facility] Comment on above: Performed By: #### L [id number] #### [facility] ([facility]) [address] [place] [address] Immature granulocytes/100 WBC (Bld) 0.2 % Normal 0.0-1.0 [facility] Comment on above: Performed By: #### L [id number] #### [facility] ([facility]) [address] [place] [address] Lymphocytes (Bld) [#/Vol] 2.59 10*3/uL Normal 1.20-4.00 [facility] Comment on above: Performed By: #### L [id number] #### [facility] ([facility]) [address] [place] [address] Lymphocytes/100 WBC (Bld) 29.7 % Normal 20.0-45.0 [facility] Comment on above: Performed By: #### L [id number] #### [facility] ([facility]) [address] [place] [address] MCH (RBC) [Entitic mass] 31.1 pg Normal 27.0-33.0 [facility] Comment on above: Performed By: #### L [id number] #### [facility] (BEAKER) [address] [address] MCV (RBC) [Entitic vol] 94.1 fL Normal 82.0-98.0 [facility] Comment on above: Performed By: #### L [id number] #### [facility] (BEAKER) [address] [place] [address] Monocytes (Bld) [#/Vol] 0.99 10*3/uL Normal 0.10-1.00 [facility] Comment on above: Performed By: #### L [id number] #### [facility] ([facility]) [address] [place] [address] Monocytes/100 WBC (Bld) 11.4 % Normal 5.0-12.0 [facility] Comment on above: Performed By: #### L [id number] #### [facility] ([facility]) [address] [place] [address] Neutrophils (Bld) [#/Vol] 4.93 10*3/uL Normal 1.60-7.60 [facility] Comment on above: Performed By: #### L [id number] #### [facility] ([facility]) [address] [place] [address] Neutrophils/100 WBC (Bld) 56.5 % Normal 40.0-72.0 [facility] Comment on above: Performed By: #### L [id number] #### [facility] ([facility]) [address] [place] [address] NRBC (PER 100 WBCS) BY AUTOMATED COUNT 0.0 % Normal 0 [facility] Comment on above: Performed By: #### L [id number] #### [facility] ([facility]) [address] [place] [address] PLATELETS (10*3/UL) IN BLOOD AUTOMATED COUNT 388 10*3/uL Normal 150-400 [facility] Comment on above: Performed By: #### L [id number] #### [facility] ([facility]) [address] [place] [address] RBC (Bld) [#/Vol] 4.38 10*6/uL Normal 3.80-5.00 [facility] Comment on above: Performed By: #### L [id number] #### [facility] ([facility]) [address] [place] [address] WBC (Bld) [#/Vol] 8.72 10*3/uL Normal 4.00-10.60 [facility] Comment on above: Performed By: #### L [id number] #### [facility] HOSPITAL LAB (BEAKER) [address] [place] [address] Consulton 02-24-2024 Consult [id number] RafaJulianne Butts 1970 F Date Provider Department Center 02/24/2024 Nitin-LIN, CHLOE [facility] SURG Second Fl Family History Problem Relation Age of Onset Coronary artery disease Mother Hypertension Mother Other Father Hypertension Father Other Daughter Comments: 05/2023 drug overdose Family Status - Relation Status Age at Mother Father Daughter Level of Service:36576 [place] OFFICE/OUTPATIENT NEW MODERATE MDM 45 MINUTES Reason for Visit and Comments: Pre-op Exam [248123] Normal [facility] HPon 02-24-2024 HP SUBJECTIVE: Chief complaint: [...] Diagnosis Date Alcohol abuse Anxiety Bipolar disorder (CMS/[facility]) Chronic sinusitis Cocaine use 05/2023 COPD (chronic obstructive pulmonary disease) ([facility]/HCC) Coronary vasospasm (CMS/HCC) Diverticulosis per CT 08/2023 [...] propylene glycol 99.5 % (not less than, CARE HOME) liquid external (more content not included)... Normal [facility] Labon 02-24-2024 Lab [id number] Julianne Craig 1970 F Date Provider Department [place] 02/24/2024 2245-[facility] OPD LAB RESOURCE [facility] OPD [facility] Medical C Family History Problem Relation Age of Onset Coronary artery disease Mother Hypertension Mother Other Father Hypertension Father Other Daughter Comments: 05/2023 drug overdose Family Status - Relation Status Age at Mother Father Daughter Normal [facility] MRSA/MSSA DNA NASALon 2023 MRSA DNA Negative Normal Negative [facility] Comment on above: Order Comment: Testi [...] preclude nasal colonization. Performed By: #### L [id number] ####[facility] (BEAKER)[address] [place] [address] MSSA DNA Positive Abnormal Negative [facility] Comment on above: Order Comment: Testi [...] preclude nasal colonization. Performed By: #### L [id number] ####[facility] (BEAKER)[address] [place] [address] PROTIME-INRon 02-24-2024 INR IN PPP BY COAGULATION ASSAY 1.02 Normal 0.90-1.10 [facility] Comment on above: Result Comment: ACCC [...] 1995;108:231S-246S. Performed By: #### L [id number] #### [facility] (BEAKER) [address] [place] [address] PROTHROMBIN TIME (PT) IN PPP BY COAGULATION ASSAY 13.4 Seconds Normal 12.3-14.8 [facility] Comment on above: Performed By: #### L [id number] #### [facility] (BEAKER) [address] [place] [address] TYPE AND SCREENon 02-24-2024 AB SCREEN Negative Normal [facility] Comment on above: Performed By: #### L [id number] ####[facility] BLOOD BANK, ABO group Nom (Bld) A Normal [facility] Comment on above: Performed By: #### L [id number] ####[facility] BLOOD [facility], RH TYPE IN BLOOD Positive Normal [facility] Comment on above: Performed By: #### L [id number] ####[facility] B[facility]OD [facility], Event Monitoron 02-21-2024 Event Monitor Event Monitor [...] BY: Julien Cho MD ca Dictated: 02/19/2024 [id number] Transcribed: 02/20/2024 cc:Roosevelt Sotelo PA-C Normal [facility] Comment on above: Result Comment: Elec tronically Signed By: Marquis PATRICK, Julien Cage.guillermina\Date and Time Signed: 02/21/24 14:07 EST 36on 02-16-2024 36 Clearances are in media Normal [facility] Heart and Vascular Office/Cl inic Noteon [...] did not s (more content not included)... [facility] Comment on above: Result Comment: Elec tronically Signed By: Deepak MOSES, Roosevelt Remy\.br\Date and Time Signed: 02/16/24 10:06 EST 36on 02-11-2024 36 Spoke with PCP's office for status update on clearance. Message sent to PCP. [facility] 36 Called and spoke wit h PCP office to verify if they have received clearance request. The welding lead burner stated that she will send a message to the provider for status update. Verified fax number is correct. I provided my call back number if they need request to be refaxed. [facility] 36on 02-04-2024 36 Pt called and was scheduled. Aspirin hold clearance request faxed to PCP. [facility] 36 LVM for pt to call back to discuss who prescribes aspirin and to schedule surgery. [facility] 36on 02-02-2024 36 Discussed with randolph espinal [...] the hardware removed. Will work on arranging. [facility] Telephoneon 02-02-2024 Telephone [id number] Rafa,Julianne Butts 1970 F Date Provider Department Center 02/02/2024 148-OVITT, [facility] SURG Second Fl Family History Problem Relation Age of Onset Coronary artery disease Mother Hypertension Mother Other Father Hypertension Father Other Daughter Comments: 05/2023 drug overdose Family Status - Relation Status Age at Mother Father Daughter [facility] 36on 02-01-2024 36 Left message for patient to call back to discuss plan for her back. [facility] Telephoneon 02-01-2024 Telephone [id number] RafaJulianne Butts 1970 Date Provider Department Center 02/01/2024 148-OVITT, [facility] SURG Second Fl Family History Problem Relation Age of Onset Coronary artery disease Mother Hypertension Mother Other Father Hypertension Father Other Daughter Comments: 05/2023 drug overdose Family Status - Relation Status Age at Mother Father Daughter [facility] Follow-Upon 01-27-2024 Follow-Up [id number] RafaJulianne Butts 1970 Date Provider Department Center 01/27/2024 148-OVCHIKIS, [facility] SURG Second Fl Family History Problem Relation Age of Onset Coronary artery disease Mother Hypertension Mother Other Father Hypertension Father Other Daughter Comments: 05/2023 drug overdose Family Status - Relation Status Age at Mother Father Daughter Level of Service:86618 [place] OFFICE/OUTPATIENT ESTABLISHED MOD MDM 30 MIN Reason for Visit and Comments: Follow-up [022780] - Patient is here today for a follow up for back pain and reviewing her recent imaging [facility] 36on 01-25-2024 36 Paint Technician saw that patient had no showed to todays imaging for CT and MRI. Paint Technician called patient to see if that was completed. She voiced that she got the imaging done at [facility] a couple weeks ago. Called [facility], they are pushing over imaging and sending over the reports. Normal [facility] US Carotid Duplex Bilateralo n 01-12-2024 [...] Criteria Committee. Vascular Medicine 2020; https://journals.sagep ub.com/doi/full/10.117 7/5842449X188584541 Ordering Provider: Roosevelt Sotelo FINAL REPORT Dictated: 01/12/2024 1:18 pm Tulio Delgado DO Signed (Electronic Signature): 01/12/2024 1:18 pm Signed by: Tulio Delgado DO Transcribed by: CASEY Technologist: JENAE Technical Comments Velocities Right Vert. Antegrade Yes Technical Comments Velocities Left Vert. Antegrade Yes Normal [facility] 36on 01-06-2024 36 LVM for pt to notify. Normal [facility] Orders Onlyon 01-06-2024 Orders Only [id number] Julianne Craig 1970 F Date Provider Department Center 01/06/2024 CHLOE TOMLIN [facility] SURG Second Fl Family History Problem Relation Age of Onset Coronary artery disease Mother Hypertension Mother Other Father Hypertension Father Other Daughter Comments: 05/2023 drug overdose Family Status - Relation Status Age at Mother Father Daughter [facility] 36on 01-05-2024 36 Pt called back stati ng that she had taken the medication prior to her original MRI that was scheduled. Per pt, Libia had a scheduling mix up. Pt was rescheduled for today. Pt states that she was going to try to do MRI without medication, but could not. Pt did say she had her CT done. [facility] Orders Onlyon 01-05-2024 Orders Only [id number] Julianne Craig 1970 F Date Provider Department Center 01/05/2024 CHLOE TOMLIN [facility] SURG Second Fl Family History Problem Relation Age of Onset Coronary artery disease Mother Hypertension Mother Other Father Hypertension Father Other Daughter Comments: 05/2023 drug overdose Family Status - Relation Status Age at Mother Father Daughter [facility] 36on 12-22-2023 36 Pt called and LVM requesting CT and MRI orders be faxed to [facility]. Pt has existing CT and MRI scheduled here at [facility]. I called and LVM with pt to notify of orders faxed to [facility], that she will need to bring disc of imaging to her follow up visit with Chloe Ceballos CNP and to call [facility] radiology to cancel appointments. Follow up visit date and time and radiology scheduling number provided in VM. [facility] Consulton 12-14-2023 Consult [id number] Julianne Craig 1970 F Date Provider Department Center 12/14/2023 CHLOE TOMLIN [facility] SURG Second Fl Family History Problem Relation Age of Onset Coronary artery disease Mother Hypertension Mother Other Father Hypertension Father Other Daughter Comments: 05/2023 drug overdose Family Status - Relation Status Age at Mother Father Daughter Level of Service:37647 [place] OFFICE/OUTPATIENT NEW MODERATE MDM 45 MINUTES Reason for Visit and Comments: Consult [484] - broken screw from past surgery. Pt will bring disc of Xr and MRI with her. Normal [facility] MR lumbar spine wo conon MR lumbar spine wo con [facility] [place] [address] [place], [place] [id number] MRI Report Signed Patient: Isela Craig MR#: [id number] : 1970 Acct:[id number] Age/Sex: 53 / F ADM Date: 12/02/23 Loc: ICMR Room: Type: [facility] Attending Dr: Jes Cruz [employer] Copies to: Jes Cruz Ordering Provider: Jes [...] Bjorn Rdz M.D.12/02/2023 3:22 PM Dictation Location: [place] [address] Transcribed By: [facility] 12/02/23 1522 Dictated By: Bjorn Rdz II, MD 12/02/23 1512 Signed By: 12/02/23 1522 Normal [facility] Alanine aminotransferase [En zymatic activity/volume] in Serum or PlasmaOrdered By: Jes Cruz on 11-01-2023 ALT [Catalytic activity/Vol] 17 U/L Normal 7-52 [facility] Comment on above: Order Comment: Reaso n for Exam Primary hypertension Reason for Exam Low iron Reason for Exam Primary hypertension;Hypertriglyceridemia Reason for Exam Hot flashes Reason for Exam Vitamin D deficiency Performed By: #### F SH, T3F, CBC, TSH3, [id number], CMP, SHAMA, FE and TIBC, LIPID, CUU, [id number], UA #### [address] #### ESTRADIOL, LH #### [facility] , Albumin [Mass/volume] in Ser um or Plasma by Bromocresol green (BCG) dye binding methoOrdered By: Jes Cruz on 11-01-2023 Albumin BCG dye [Mass/Vol] 4.3 g/dL 3.5-5.7 [facility] Alkaline phosphatase [Enzyma tic activity/volume] in Serum or PlasmaOrdered By: Jes Cruz on 11-01-2023 ALP [Catalytic activity/Vol] 87 U/L Normal 34-104 [facility] Comment on above: Order Comment: Reaso n for Exam Primary hypertension Reason for Exam Low iron Reason for Exam Primary hypertension;Hypertriglyceridemia Reason for Exam Hot flashes Reason for Exam Vitamin D deficiency Performed By: #### F SH, T3F, CBC, TSH3, [id number], CMP, SHAMA, FE and TIBC, LIPID, CUU, [id number], UA #### [facility] [address] [place] [address] #### ESTRADIOL, LH #### [facility] , Aspartate aminotransferase [ Enzymatic activity/volume] in Serum or PlasmaOrdered By: Jes Cruz on 11-01-2023 AST [Catalytic activity/Vol] 13 U/L Normal 13-39 [facility] Comment on above: Order Comment: Reaso n for Exam Primary hypertension Reason for Exam Low iron Reason for Exam Primary hypertension;Hypertriglyceridemia Reason for Exam Hot flashes Reason for Exam Vitamin D deficiency Performed By: #### F SH, T3F, CBC, TSH3, [id number], CMP, SHAMA, FE and TIBC, LIPID, CUU, [id number], UA #### [facility] [address] [place] [address] #### ESTRADIOL, LH #### [facility] , Automated basophil %Ordered By: Jes Cruz on 11-01-2023 Basophils/100 WBC (Bld) 1.1 % Normal . [facility] Comment on above: Order Comment: Reaso n for Exam Primary hypertension Performed By: #### F SH, T3F, CBC, TSH3, [id number], CMP, SHAMA, FE and TIBC, LIPID, CUU, [id number], UA #### [facility] [address] [place] [address] [place] #### ESTRADIOL, LH #### [facility] , Automated basophil countOrde red By: Jes Cruz on 11-01-2023 Basophils (Bld) [#/Vol] 0.1 10*3/uL Normal 0.0-0.2 [facility] Comment on above: Order Comment: Reaso n for Exam Primary hypertension Result Comment: PERF ORMED BY: [place] [address] PATHOLOGIST PERSONAL INVESTMENT ADVISER PALOMO WESLEY M.D. Performed By: #### F SH, T3F, CBC, TSH3, [id number], CMP, SHAMA, FE and TIBC, LIPID, CUU, [id number], UA #### [facility] [address] [place] [address] #### ESTRADIOL, LH #### [facility] , Automated blood monocyte cou ntOrdered By: Jes Cruz on 11-01-2023 Monocytes (Bld) [#/Vol] 0.8 10*3/uL Normal 0.0-0.8 [facility] Comment on above: Order Comment: Reaso n for Exam Primary hypertension Performed By: #### F SH, T3F, CBC, TSH3, [id number], CMP, SHAMA, FE and TIBC, LIPID, CUU, [id number], UA #### [address] #### ESTRADIOL, LH #### [facility] , Automated eosinophil %Ordere d By: Jes Cruz on 11-01-2023 Eosinophils/100 WBC (Bld) 1.5 % Normal . [facility] Comment on above: Order Comment: Reaso n for Exam Primary hypertension Performed By: #### F SH, T3F, CBC, TSH3, [id number], CMP, SHAMA, FE and TIBC, LIPID, CUU, [id number], UA #### [address] #### ESTRADIOL, LH #### [facility] , Automated eosinophil countOr dered By: Jes Cruz on 11-01-2023 Eosinophils (Bld) [#/Vol] 0.1 10*3/uL Normal 0.0-0.45 [facility] Comment on above: Order Comment: Reaso n for Exam Primary hypertension Performed By: #### F SH, T3F, CBC, TSH3, [id number], CMP, SHAMA, FE and TIBC, LIPID, CUU, [id number], UA #### [place] [address] [place] #### ESTRADIOL, LH #### [facility] , Automated monocyte %Ordered By: Jes Cruz on 11-01-2023 Monocytes/100 WBC (Bld) 10.8 % Normal . [facility] Comment on above: Order Comment: Reaso n for Exam Primary hypertension Performed By: #### F SH, T3F, CBC, TSH3, [id number], CMP, SHAMA, FE and TIBC, LIPID, CUU, [id number], UA #### [facility] [address] [place] [address] [place] #### ESTRADIOL, LH #### [facility] , Automated neutrophil %Ordere d By: Jes Cruz on 11-01-2023 Neutrophils/100 WBC (Bld) 58.6 % Normal . [facility] Comment on above: Order Comment: Reaso n for Exam Primary hypertension Performed By: #### F SH, T3F, CBC, TSH3, [id number], CMP, SHAMA, FE and TIBC, LIPID, CUU, [id number], UA #### [place] [address] [place] #### ESTRADIOL, LH #### [facility] , Bilirubin Test strip Ql (U)O rdered By: Jes Cruz on 11-01-2023 Bilirubin Ql (U) Negative Negative [facility] Bilirubin.total [Mass/volume ] in Serum or PlasmaOrdered By: Jes Cruz on 11-01-2023 Bilirubin [Mass/Vol] 0.4 mg/dL Normal 0.3-1.0 [facility] Comment on above: Order Comment: Reaso n for Exam Primary hypertension Reason for Exam Low iron Reason for Exam Primary hypertension;Hypertriglyceridemia Reason for Exam Hot flashes Reason for Exam Vitamin D deficiency Performed By: #### F SH, T3F, CBC, TSH3, [id number], CMP, SHAMA, FE and TIBC, LIPID, CUU, [id number], UA #### [facility] [address] [place] [address] [place] #### ESTRADIOL, LH #### [facility] , Calcium [Mass/volume] in Ser um or PlasmaOrdered By: Jes Cruz on 11-01-2023 Calcium [Mass/Vol] 9.4 mg/dL Normal 8.6-10.3 [facility] Comment on above: Order Comment: Reaso n for Exam Primary hypertension Reason for Exam Low iron Reason for Exam Primary hypertension;Hypertriglyceridemia Reason for Exam Hot flashes Reason for Exam Vitamin D deficiency Performed By: #### F SH, T3F, CBC, TSH3, [id number], CMP, SHAMA, FE and TIBC, LIPID, CUU, [id number], UA #### [facility] [address] [place] [address] #### ESTRADIOL, LH #### [facility] , Carbon dioxide, total [Moles /volume] in Serum or PlasmaOrdered By: Jes Cruz on 11-01-2023 CO2 [Moles/Vol] 28.5 mmol/L Normal 21.0-31.0 [facility] Comment on above: Order Comment: Reaso n for Exam Primary hypertension Reason for Exam Low iron Reason for Exam Primary hypertension;Hypertriglyceridemia Reason for Exam Hot flashes Reason for Exam Vitamin D deficiency Performed By: #### F SH, T3F, CBC, TSH3, [id number], CMP, SHAMA, FE and TIBC, LIPID, CUU, [id number], UA #### [facility] [address] [place] [address] #### ESTRADIOL, LH #### [facility] , Chloride [...] By: #### F SH, T3F, CBC, TSH3, [id number], CMP, SHAMA, FE and TIBC, LIPID, CUU, [id number], UA #### [facility] [address] [place] [address] [place] #### ESTRADIOL, LH #### [facility] , Cholesterol [Mass/volume] in Serum or PlasmaOrdered By: Jes Cruz on 11-01-2023 Cholesterol [Mass/Vol] 285 mg/dL High 140-200 [facility] Comment on above: Chol less than [...] By: #### F SH, T3F, CBC, TSH3, [id number], CMP, SHAMA, FE and TIBC, LIPID, CUU, [id number], UA #### [facility] [address] [place] [address] #### ESTRADIOL, LH #### [facility] , Cholesterol in LDL Calc [Mas s/Vol]Ordered By: Jes Cruz on 11-01-2023 Cholesterol in LDL [Mass/Vol] 198 mg/dL High 0-100 [facility] Comment on above: LDL ATP III CLASSIFI CATIONLDL less than 100 mg/dL OptimalLDL 100-129 mg/dL Near or above optimalLDL 130-159 mg/dL Borderline highLDL 160-189 mg/dL HighLDL greater than 189 mg/dL Very high Cholesterol in VLDL Calc [Ma ss/Vol]Ordered By: Jes Cruz on 11-01-2023 Cholesterol in VLDL [Mass/Vol] 29 mg/dL [facility] Color of Urine by AutoOrdere d By: Jes Cruz on 11-01-2023 Color (U) Light-yellow Normal Yellow [facility] Comment on above: Order Comment: Reaso n for Exam Microscopic hematuria Name Collection Type:: Voided Performed By: #### F SH, T3F, CBC, TSH3, [id number], CMP, SHAMA, FE and TIBC, LIPID, CUU, [id number], UA #### [facility] [address] [place] [address] [place] #### ESTRADIOL, LH #### [facility] , Complete Blood Count Auto Di ffon 11-01-2023 Mean Corpuscular HGB Conc 33.6 g/dL Normal 32.0-35.0 [facility] Comment on above: Order Comment: Reaso n for Exam Primary hypertension Performed By: #### F SH, T3F, CBC, TSH3, [id number], CMP, SHAMA, FE and TIBC, LIPID, CUU, [id number], UA #### [facility] [address] [place] [address] [place] #### ESTRADIOL, LH #### [facility] , NRBC% 0.1 /100{WBC} Normal 0-0.5 [facility] Comment on above: Order Comment: Reaso n for Exam Primary hypertension Performed By: #### F SH, T3F, CBC, TSH3, [id number], CMP, SHAMA, FE and TIBC, LIPID, CUU, [id number], UA #### [facility] [address] [place] [address] [place] #### ESTRADIOL, LH #### [facility] , Comprehensive Metabolic Pane hema 11-01-2023 Albumin [Mass/Vol] 4.3 g/dL Normal 3.5-5.7 [facility] Comment on above: Order Comment: Reaso n for Exam Primary hypertension Reason for Exam Low iron Reason for Exam Primary hypertension;Hypertriglyceridemia Reason for Exam Hot flashes Reason for Exam Vitamin D deficiency Performed By: #### F SH, T3F, CBC, TSH3, [id number], CMP, SHAMA, FE and TIBC, LIPID, CUU, [id number], UA #### [place] [address] [place] #### ESTRADIOL, LH #### [facility] , GFR/1.73 sq M.predicted MDRD (S/P/Bld) [Vol rate/Area] mL/min/{1.73_m2} Normal [facility] Comment on above: Order Comment: Reaso n for Exam Primary hypertension Reason for Exam Low iron Reason for Exam Primary hypertension;Hypertriglyceridemia Reason for Exam Hot flashes Reason for Exam Vitamin D deficiency Performed By: #### F SH, T3F, CBC, TSH3, [id number], CMP, SHAMA, FE and TIBC, LIPID, CUU, [id number], UA #### [facility] [address] [place] [address] [place] #### ESTRADIOL, LH #### [facility] , Creatinine [Mass/volume] in Serum or PlasmaOrdered By: Jes Cruz on 11-01-2023 Creatinine [Mass/Vol] 0.75 mg/dL Normal 0.60-1.20 [facility] Comment on above: Order Comment: Reaso n for Exam Primary hypertension Reason for Exam Low iron Reason for Exam Primary hypertension;Hypertriglyceridemia Reason for Exam Hot flashes Reason for Exam Vitamin D deficiency Performed By: #### F SH, T3F, CBC, TSH3, [id number], CMP, SHAMA, FE and TIBC, LIPID, CUU, [id number], UA #### [facility] [address] [place] [address] [place] #### ESTRADIOL, LH #### [facility] , Erythrocyte distribution wid th [Ratio] by Automated countOrdered By: Jes Cruz on 11-01-2023 Erythrocyte distribution width (RBC) [Ratio] 13.1 % Normal 11.9-15.3 [facility] Comment on above: Order Comment: Reaso n for Exam Primary hypertension Performed By: #### F SH, T3F, CBC, TSH3, [id number], CMP, SHAMA, FE and TIBC, LIPID, CUU, [id number], UA #### [facility] [address] [place] [address] [place] #### ESTRADIOL, LH #### [facility] , Erythrocytes [#/volume] in B lood by Automated countOrdered By: Jes Cruz on 11-01-2023 RBC (Bld) [#/Vol] 4.13 10*6/uL Normal 3.60-5.00 [facility] Comment on above: Order Comment: Reaso n for Exam Primary hypertension Performed By: #### F SH, T3F, CBC, TSH3, [id number], CMP, SHAMA, FE and TIBC, LIPID, CUU, [id number], UA #### [facility] [address] #### ESTRADIOL, LH #### [facility] , Estradiolon 11-01-2023 Estradiol <5.0 Normal . [facility] Comment on above: Order Comment: Reaso n for Exam Hot flashes Result Comment: Adul t Female Range Follicular phase 12.5 - 166.0 Ovulation phase 85.8 - 498.0 Luteal phase 43.8 - 211.0 Postmenopausal <6.0 - 54.7 1st trimester 215.0 - >4300.0 Mp ECLIA methodology Performed at: [facility] [place] [id number] Integrated Marketing Intern: Kurtis Gallegos PhD, Phone: [phone] PERFORMED BY: [place] [address] PATHOLOGIST PERSONAL INVESTMENT ADVISER PALOMO WESLEY M.D. Performed By: #### F SH, T3F, CBC, TSH3, [id number], CMP, SHAMA, FE and TIBC, LIPID, CUU, [id number], UA ####[facility] [address]#### ESTRADIOL, LH ####[facility] , Ferritin [Mass/volume] in Se rum or PlasmaOrdered By: Jes Cruz on 11-01-2023 Ferritin [Mass/Vol] 42.8 ng/mL Normal 11.0-306.8 [facility] Comment on above: Order Comment: Reaso n for Exam Primary hypertension Reason for Exam Low iron Reason for Exam Primary hypertension;Hypertriglyceridemia Reason for Exam Hot flashes Reason for Exam Vitamin D deficiency Performed By: #### F SH, T3F, CBC, TSH3, [id number], CMP, SHAMA, FE and TIBC, LIPID, CUU, [id number], UA #### [facility] [address] #### ESTRADIOL, LH #### [facility] , Folate [Mass/volume] in Seru m or PlasmaOrdered By: Jes Cruz on 11-01-2023 Folate [Mass/Vol] 10.3 ng/mL >5.9 [facility] Comment on above: Folate reference ran ge: >5.9 ng/mlThe WHO technical consultation on folate and vitamin [id number] has determined that folate concentrations lessthan 4 ng/ml are considered deficient. Follicle Stimulating Hormone on 11-01-2023 Follicle Stimulating Hormone 32.3 m[iU]/mL Normal [facility] Comment on above: [...] By: #### F SH, T3F, CBC, TSH3, [id number], CMP, SHAMA, FE and TIBC, LIPID, CUU, [id number], UA ####[facility] [address]#### ESTRADIOL, LH ####[facility] , Follitropin [Units/volume] i n Serum or PlasmaOrdered By: Jes Cruz on 11-01-2023 Follitropin Qn 32.3 m[IU]/mL [facility] Comment on above: FEMALE NORMALS (KEVEN ENOPAUSE) MID-FOLLICULAR PHASE: 3.9-8.8 mIU/mL MID-CYCLE PEAK: 4.5-22.5 mIU/mL MID-LUTEAL PHASE: 1.8-5.1 mIU/mLFEMALE NORMALS (POSTMENOPAUSE): 16.7-113.6 mIU/mLMALE NORMALS: 1.3-19.3 mIU/mL Glucose [Mass/volume] in Ser um or PlasmaOrdered By: Jes Cruz on 11-01-2023 Glucose [Mass/Vol] 95 mg/dL Normal 70-100 [facility] Comment on above: ADA recommended refe rence [...] for Exam Vitamin D deficiency Result Comment: [place] om Glucose Reference Range is dependent on time and content of last meal. Glucose of more than 200 mg/dL in a nonstressed, ambulatory subject supports the diagnosis of Diabetes Mellitus. ADA recommended reference range Performed By: #### F SH, T3F, CBC, TSH3, [id number], CMP, SHAMA, FE and TIBC, LIPID, CUU, [id number], UA #### [facility] [address] #### ESTRADIOL, LH #### [facility] , Glucose [Mass/volume] in Uri ne by Test stripOrdered By: Jes Cruz on 11-01-2023 Glucose Test strip (U) [Mass/Vol] Normal mg/dL Normal [facility] Hematocrit [Volume Fraction] of Blood by Automated countOrdered By: Jes Cruz on 11-01-2023 Hematocrit (Bld) [Volume fraction] 39.6 % Normal 34.0-46.4 [facility] Comment on above: Order Comment: Reaso n for Exam Primary hypertension Performed By: #### F SH, T3F, CBC, TSH3, [id number], CMP, SHAMA, FE and TIBC, LIPID, CUU, [id number], UA #### [facility] [address] #### ESTRADIOL, LH #### [facility] , Hemoglobin Test strip Ql (U) Ordered By: Jes Cruz on 11-01-2023 Hemoglobin Ql (U) Negative Negative [facility] Hemoglobin [Mass/volume] in BloodOrdered By: Jes Cruz on 11-01-2023 Hemoglobin (Bld) [Mass/Vol] 13.3 g/dL Normal 11.8-15.4 [facility] Comment on above: Order Comment: Reaso n for Exam Primary hypertension Performed By: #### F SH, T3F, CBC, TSH3, [id number], CMP, SHAMA, FE and TIBC, LIPID, CUU, [id number], UA #### [facility] [address] [place] [address] #### ESTRADIOL, LH #### [facility] , Iron [Mass/volume] in Serum or PlasmaOrdered By: Jes Tamezson on 11-01-2023 Iron [Mass/Vol] 106 ug/dL Normal 50-212 [facility] Comment on above: Order Comment: Reaso n for Exam Primary hypertension Reason for Exam Low iron Reason for Exam Primary hypertension;Hypertriglyceridemia Reason for Exam Hot flashes Reason for Exam Vitamin D deficiency Performed By: #### F SH, T3F, CBC, TSH3, [id number], CMP, SHAMA, FE and TIBC, LIPID, CUU, [id number], UA #### [facility] [address] [place] [address] [place] #### ESTRADIOL, LH #### [facility] , Iron and TIBC Profileon 10-04 % Iron Saturation 25.1 % Normal 20-50 [facility] Comment on above: Order Comment: Reaso n for Exam Primary hypertension Reason for Exam Low iron Reason for Exam Primary hypertension;Hypertriglyceridemia Reason for Exam Hot flashes Reason for Exam Vitamin D deficiency Performed By: #### F SH, T3F, CBC, TSH3, [id number], CMP, SHAMA, FE and TIBC, LIPID, CUU, [id number], UA #### [facility] [address] [place] [address] [place] #### ESTRADIOL, LH #### [facility] , Total Iron Binding Capacity 423 ug/dL Normal 255-450 [facility] Comment on above: Order Comment: Reaso n for Exam Primary hypertension Reason for Exam Low iron Reason for Exam Primary hypertension;Hypertriglyceridemia Reason for Exam Hot flashes Reason for Exam Vitamin D deficiency Performed By: #### F SH, T3F, CBC, TSH3, [id number], CMP, SHAMA, FE and TIBC, LIPID, CUU, [id number], UA #### [facility] [address] [place] [address] [place] #### ESTRADIOL, LH #### [facility] , Iron binding capacity [Mass/ volume] in Serum or PlasmaOrdered By: Jes Cruz on 11-01-2023 Iron binding capacity [Mass/Vol] 423 ug/dL 255-450 [facility] Iron saturation [Mass Fracti on] in Serum or PlasmaOrdered By: Jes Cruz on 11-01-2023 Iron saturation [Mass fraction] 25.1 % 20-50 [facility] Ketones [Presence] in Urine by Test stripOrdered By: Jes Cruz on 11-01-2023 Ketones Ql (U) Negative Normal Negative [facility] Comment on above: Order Comment: Reaso n for Exam Microscopic hematuria Name Collection Type:: Voided Performed By: #### F SH, T3F, CBC, TSH3, [id number], CMP, SHAMA, FE and TIBC, LIPID, CUU, [id number], UA #### [facility] [address] [place] [address] [place] #### ESTRADIOL, LH #### [facility] , Leukocyte esterase [Presence ] in Urine by Test stripOrdered By: Jes Cruz on 11-01-2023 Leukocyte esterase Test strip Ql (U) Negative Normal Negative [facility] Comment on above: Order Comment: Reaso n for Exam Microscopic hematuria Name Collection Type:: Voided Performed By: #### F SH, T3F, CBC, TSH3, [id number], CMP, SHAMA, FE and TIBC, LIPID, CUU, [id number], UA #### [place] [address] [place] #### ESTRADIOL, LH #### [facility] , Leukocytes [#/volume] correc ricardo for nucleated erythrocytes in Blood by Automated counOrdered By: Jes Cruz on 11-01-2023 WBC corrected for nucl RBC Auto (Bld) [#/Vol] 7.3 10*3/uL 3.8-11.6 [facility] Leukocytes [#/volume] in Blo od by Automated countOrdered By: Jes Cruz on 11-01-2023 WBC (Bld) [#/Vol] 7.3 10*3/uL Normal 3.8-11.6 [facility] Comment on above: Order Comment: Reaso n for Exam Primary hypertension Performed By: #### F SH, T3F, CBC, TSH3, [id number], CMP, SHAMA, FE and TIBC, LIPID, CUU, [id number], UA #### [place] [address] [place] #### ESTRADIOL, LH #### [facility] , Lipid Panelon 11-01-2023 LDL Cholesterol,Calculated 198 mg/dL High 0-100 [facility] Comment on above: Order [...] By: #### F SH, T3F, CBC, TSH3, [id number], CMP, SHAMA, FE and TIBC, LIPID, CUU, [id number], UA #### [place] [address] [place] #### ESTRADIOL, LH #### [facility] , Triglyceride w/Reflex 145 mg/dL Normal 0-149 [facility] Comment on above: [...] By: #### F SH, T3F, CBC, TSH3, [id number], CMP, SHAMA, FE and TIBC, LIPID, CUU, [id number], UA #### [facility] [address] #### ESTRADIOL, LH #### [facility] , VLDL CHOLESTEROL 29 mg/dL Normal [facility] Comment on above: Order Comment: Reaso n for Exam Primary hypertension Reason for Exam Low iron Reason for Exam Primary hypertension;Hypertriglyceridemia Reason for Exam Hot flashes Reason for Exam Vitamin D deficiency Performed By: #### F SH, T3F, CBC, TSH3, [id number], CMP, SHAMA, FE and TIBC, LIPID, CUU, [id number], UA #### [facility] [address] [place] [address] #### ESTRADIOL, LH #### [facility] , Luteinizing Hormoneon 2023 Luteinizing Hormone 20.7 m[iU]/mL Normal . [facility] Comment on above: Order Comment: Reaso n for Exam Hot flashes Result Comment: Adul t Female Range Follicular phase 2.4 - 12.6 Ovulation phase 14.0 - 95.6 Luteal phase 1.0 - 11.4 Postmenopausal 7.7 - 58.5 Performed By: #### F SH, T3F, CBC, TSH3, [id number], CMP, SHAMA, FE and TIBC, LIPID, CUU, [id number], UA ####[facility] [address]#### ESTRADIOL, LH ####[facility] , Lymphocytes [#/volume] in Bl ood by Automated countOrdered By: Jes Cruz on 11-01-2023 Lymphocytes (Bld) [#/Vol] 2.0 10*3/uL Normal 1.00-4.8 [facility] Comment on above: Order Comment: Reaso n for Exam Primary hypertension Performed By: #### F SH, T3F, CBC, TSH3, [id number], CMP, SHAMA, FE and TIBC, LIPID, CUU, [id number], UA #### [facility] [address] [place] [address] #### ESTRADIOL, LH #### [facility] , Lymphocytes/100 leukocytes i n Blood by Automated countOrdered By: Jes Curz on 11-01-2023 Lymphocytes/100 WBC (Bld) 28.0 % Normal . [facility] Comment on above: Order Comment: Reaso n for Exam Primary hypertension Performed By: #### F SH, T3F, CBC, TSH3, [id number], CMP, SHAMA, FE and TIBC, LIPID, CUU, [id number], UA #### [facility] [address] [place] [address] #### ESTRADIOL, LH #### [facility] , MCH [Entitic mass] by Automa ricardo countOrdered By: Jes Cruz on 11-01-2023 MCH (RBC) [Entitic mass] 32.3 pg Normal 24.7-34.3 [facility] Comment on above: Order Comment: Reaso n for Exam Primary hypertension Performed By: #### F SH, T3F, CBC, TSH3, [id number], CMP, SHAMA, FE and TIBC, LIPID, CUU, [id number], UA #### [address] #### ESTRADIOL, LH #### [facility] , MCHC Auto (RBC) [Mass/Vol]Or dered By: Jes Cruz on 11-01-2023 MCHC (RBC) [Mass/Vol] 33.6 g/dL 32.0-35.0 [facility] MCV [Entitic volume] by Auto mated countOrdered By: Jes Cruz on 11-01-2023 MCV (RBC) [Entitic vol] 96.0 fL Normal 80-100 [facility] Comment on above: Order Comment: Reaso n for Exam Primary hypertension Performed By: #### F SH, T3F, CBC, TSH3, [id number], CMP, SHAMA, FE and TIBC, LIPID, CUU, [id number], UA #### [facility] [address] [place] [address] [place] #### ESTRADIOL, LH #### [facility] , Neutrophils [#/volume] in Bl ood by Automated countOrdered By: Jes Cruz on 11-01-2023 Neutrophils (Bld) [#/Vol] 4.3 10*3/uL Normal 1.8-7.7 [facility] Comment on above: Order Comment: Reaso n for Exam Primary hypertension Performed By: #### F SH, T3F, CBC, TSH3, [id number], CMP, SHAMA, FE and TIBC, LIPID, CUU, [id number], UA #### [facility] [address] [place] [address] [place] #### ESTRADIOL, LH #### [facility] , Nitrite Test strip Ql (U)Ord ered By: Jes Cruz on 11-01-2023 Nitrite Ql (U) Negative Negative [facility] No Panel InformationOrdered By: Jes Cruz on 11-01-2023 Estimated GFR (CKD-EPI) > 60.0 mL/Min [facility] Creatinine Clearance (Chem N/A [facility] Nucleated erythrocytes [Pres ence] in Blood by Automated countOrdered By: Jes Cruz on 11-01-2023 Nucleated RBC Auto Ql (Bld) 0.1 /100{WBC} 0-0.5 [facility] Platelet mean volume [Entiti c volume] in Blood by Automated countOrdered By: Jes Cruz on 11-01-2023 Platelet mean volume (Bld) [Entitic vol] 8.3 fL Normal 6.3-10.7 [facility] Comment on above: Order Comment: Reaso n for Exam Primary hypertension Performed By: #### F SH, T3F, CBC, TSH3, [id number], CMP, SHAMA, FE and TIBC, LIPID, CUU, [id number], UA #### [facility] [address] #### ESTRADIOL, LH #### [facility] , Platelets [#/volume] in Bloo d by Automated countOrdered By: Jes Cruz on 11-01-2023 Platelets (Bld) [#/Vol] 384 10*3/uL Normal 150-450 [facility] Comment on above: Order Comment: Reaso n for Exam Primary hypertension Performed By: #### F SH, T3F, CBC, TSH3, [id number], CMP, SHAMA, FE and TIBC, LIPID, CUU, [id number], UA #### [facility] [address] [place] [address] [place] #### ESTRADIOL, LH #### [facility] , Potassium [Moles/volume] in Serum or PlasmaOrdered By: Jes Cruz on 11-01-2023 Potassium [Moles/Vol] 4.3 mmol/L Normal 3.5-5.1 [facility] Comment on above: Order Comment: Reaso n for Exam Primary hypertension Reason for Exam Low iron Reason for Exam Primary hypertension;Hypertriglyceridemia Reason for Exam Hot flashes Reason for Exam Vitamin D deficiency Performed By: #### F SH, T3F, CBC, TSH3, [id number], CMP, SHAMA, FE and TIBC, LIPID, CUU, [id number], UA #### [facility] [address] [place] [address] [place] #### ESTRADIOL, LH #### [facility] , Protein Test strip (U) [Mass /Vol]Ordered By: Jes Cruz on 11-01-2023 Protein (U) [Mass/Vol] Negative Negative [facility] Protein [Mass/volume] in Ser um or PlasmaOrdered By: Jes Cruz on 11-01-2023 Protein [Mass/Vol] 6.9 g/dL Normal 6.4-8.9 [facility] Comment on above: Order Comment: Reaso n for Exam Primary hypertension Reason for Exam Low iron Reason for Exam Primary hypertension;Hypertriglyceridemia Reason for Exam Hot flashes Reason for Exam Vitamin D deficiency Performed By: #### F SH, T3F, CBC, TSH3, [id number], CMP, SHAMA, FE and TIBC, LIPID, CUU, [id number], UA #### [facility] [address] [place] [address] #### ESTRADIOL, LH #### [facility] , Serum globulin measurement b y calculation (mass/volume)Ordered By: Jes Cruz on 11-01-2023 Globulin (S) [Mass/Vol] 2.6 g/dL [facility] Comment on above: Order Comment: Reaso n for Exam Primary hypertension Reason for Exam Low iron Reason for Exam Primary hypertension;Hypertriglyceridemia Reason for Exam Hot flashes Reason for Exam Vitamin D deficiency Performed By: #### F SH, T3F, CBC, TSH3, [id number], CMP, SHAMA, FE and TIBC, LIPID, CUU, [id number], UA #### [facility] [address] [place] [address] [place] #### ESTRADIOL, LH #### [facility] , Serum or plasma albumin/glob ulin mass ratioOrdered By: Jes Cruz on 11-01-2023 Albumin/Globulin [Mass ratio] 1.7 {ratio} [facility] Comment on above: Order Comment: Reaso n for Exam Primary hypertension Reason for Exam Low iron Reason for Exam Primary hypertension;Hypertriglyceridemia Reason for Exam Hot flashes Reason for Exam Vitamin D deficiency Performed By: #### F SH, T3F, CBC, TSH3, [id number], CMP, SHAMA, FE and TIBC, LIPID, CUU, [id number], UA #### [facility] [address] #### ESTRADIOL, LH #### [facility] , Serum or plasma anion gap de terminationOrdered By: Jes Cruz on 11-01-2023 Anion gap [Moles/Vol] 10.8 mmol/L Normal 6.0-15.0 [facility] Comment on above: Order Comment: Reaso n for Exam Primary hypertension Reason for Exam Low iron Reason for Exam Primary hypertension;Hypertriglyceridemia Reason for Exam Hot flashes Reason for Exam Vitamin D deficiency Performed By: #### F SH, T3F, CBC, TSH3, [id number], CMP, SHAMA, FE and TIBC, LIPID, CUU, [id number], UA #### [facility] [address] [place] [address] [place] #### ESTRADIOL, LH #### [facility] , Serum or plasma estradiol (E 2) measurement (mass/volume)Ordered By: Jes Cruz on 11-01-2023 E2 [Mass/Vol] pg/mL . [facility] Comment on above: Adult Female Range F ollicular phase 12.5 - 166.0 Ovulation phase 85.8 - 498.0 Luteal phase 43.8 - 211.0 Postmenopausal <6.0 - 54.7 1st trimester 215.0 - >4300.0Roche ECLIA methodologyPerformed at: - [facility] [address] [id number] Director: Kurtis Gallegos PhD, Phone: [phone] Serum or plasma high density lipoprotein (HDL) cholesterol measurementOrdered By: Jes Cruz on 11-01-2023 Cholesterol in HDL [Mass/Vol] 58 mg/dL Normal 23-92 [facility] Comment on above: HDL [...] By: #### F SH, T3F, CBC, TSH3, [id number], CMP, SHAMA, FE and TIBC, LIPID, CUU, [id number], UA #### [facility] [address] [place] [address] #### ESTRADIOL, LH #### [facility] , Serum or plasma lutropin paramjit surement (units/volume)Ordered By: Jes Cruz on 11-01-2023 Lutropin Qn 20.7 m[IU]/mL . [facility] Comment on above: Adult Female Range F ollicular phase 2.4 - 12.6 Ovulation phase 14.0 - 95.6 Luteal phase 1.0 - 11.4 Postmenopausal 7.7 - 58.5 Serum or plasma total choles terol/high density lipoprotein (HDL) cholesterol mass ratOrdered By: Jes Cruz on 11-01-2023 Cholesterol.total/Chol esterol in HDL [Mass ratio] 4.9 {ratio} Normal <5.0 [facility] Comment on above: Order Comment: Reaso n for Exam Primary hypertension Reason for Exam Low iron Reason for Exam Primary hypertension;Hypertriglyceridemia Reason for Exam Hot flashes Reason for Exam Vitamin D deficiency Performed By: #### F SH, T3F, CBC, TSH3, [id number], CMP, SHAMA, FE and TIBC, LIPID, CUU, [id number], UA #### [facility] [address] [place] [address] [place] #### ESTRADIOL, LH #### [facility] , Sodium [Moles/volume] in Ser um or PlasmaOrdered By: Jes Cruz on 11-01-2023 Sodium [Moles/Vol] 140 mmol/L Normal 136-145 [facility] Comment on above: Order Comment: Reaso n for Exam Primary hypertension Reason for Exam Low iron Reason for Exam Primary hypertension;Hypertriglyceridemia Reason for Exam Hot flashes Reason for Exam Vitamin D deficiency Performed By: #### F SH, T3F, CBC, TSH3, [id number], CMP, SHAMA, FE and TIBC, LIPID, CUU, [id number], UA #### [facility] [address] [place] [address] [place] #### ESTRADIOL, LH #### [facility] , Specific gravity Test strip (U) [Rel density]Ordered By: Jes Anthony on 11-01-2023 Specific gravity (U) [Rel density] 1.014 1.001-1.030 [facility] Thyrotropin [Units/volume] i n Serum or PlasmaOrdered By: Jes Cruz on 11-01-2023 TSH Qn 1.49 m[IU]/L Normal 0.45-5.33 [facility] Comment on above: Order Comment: Reaso n for Exam Primary hypertension Reason for Exam Low iron Reason for Exam Primary hypertension;Hypertriglyceridemia Reason for Exam Hot flashes Reason for Exam Vitamin D deficiency Performed By: #### F SH, T3F, CBC, TSH3, [id number], CMP, SHAMA, FE and TIBC, LIPID, CUU, [id number], UA ####[facility] [id number]#### ESTRADIOL, LH ####[facility] , Transferrin [Mass/volume] in Serum or PlasmaOrdered By: Jes Cruz on 11-01-2023 Transferrin [Mass/Vol] 302 mg/dL Normal 203-362 [facility] Comment on above: Order Comment: Reaso n for Exam Primary hypertension Reason for Exam Low iron Reason for Exam Primary hypertension;Hypertriglyceridemia Reason for Exam Hot flashes Reason for Exam Vitamin D deficiency Performed By: #### F SH, T3F, CBC, TSH3, [id number], CMP, SHAMA, FE and TIBC, LIPID, CUU, [id number], UA #### [facility] [address] [place] [address] [place] #### ESTRADIOL, LH #### [facility] , Triglyceride [Mass/volume] i n Serum or PlasmaOrdered By: Jes Cruz on 11-01-2023 Triglyceride [Mass/Vol] 145 mg/dL 0-149 [facility] Comment on above: TRIG ATP III CLASSIF ICATIONTRIG less than 150 mg/dL NormalTRIG 150-199 mg/dL Borderline highTRIG 200-500 mg/dL High TRIG greater than 500 mg/dL Very highStandard traceable to the Center for Disease Conrtrol and Prevention (CDC) test method. Triiodothyronine (T3) Freeon 11-01-2023 Triiodothyronine (T3) Free 2.86 pg/mL Normal 2.50-3.90 [facility] Comment on above: Order Comment: Reaso n for Exam Hot flashes Result Comment: PERF ORMED BY: [place] [address] PATHOLOGIST PERSONAL INVESTMENT ADVISER PALOMO WESLEY M.D. Performed By: #### F SH, T3F, CBC, TSH3, [id number], CMP, SHAMA, FE and TIBC, LIPID, CUU, [id number], UA #### [facility] [address] [place] [address] [place] #### ESTRADIOL, LH #### [facility] , Triiodothyronine (T3) Free [ Mass/volume] in Serum or PlasmaOrdered By: Jes Cruz on 11-01-2023 Free T3 [Mass/Vol] 2.86 pg/mL 2.50-3.90 [facility] Urea nitrogen [Mass/volume] in Serum or PlasmaOrdered By: Jes Cruz on 11-01-2023 Urea nitrogen [Mass/Vol] 17 mg/dL Normal 7-25 [facility] Comment on above: Order Comment: Reaso n for Exam Primary hypertension Reason for Exam Low iron Reason for Exam Primary hypertension;Hypertriglyceridemia Reason for Exam Hot flashes Reason for Exam Vitamin D deficiency Performed By: #### F SH, T3F, CBC, TSH3, [id number], CMP, SHAMA, FE and TIBC, LIPID, CUU, [id number], UA #### [facility] [address] [place] [address] [place] #### ESTRADIOL, LH #### [facility] , Urinalysison 11-01-2023 Bilirubin,Urine Negative Normal Negative [facility] Comment on above: Order Comment: Reaso n for Exam Microscopic hematuria Name Collection Type:: Voided Performed By: #### F SH, T3F, CBC, TSH3, [id number], CMP, SHAMA, FE and TIBC, LIPID, CUU, [id number], UA #### [place] [address] [place] #### ESTRADIOL, LH #### [facility] , Glucose Ql (U) Normal Normal Normal [facility] Comment on above: Order Comment: Reaso n for Exam Microscopic hematuria Name Collection Type:: Voided Performed By: #### F SH, T3F, CBC, TSH3, [id number], CMP, SHAMA, FE and TIBC, LIPID, CUU, [id number], UA #### [place] [address] [place] #### ESTRADIOL, LH #### [facility] , Nitrite,Urine Negative Normal Negative [facility] Comment on above: Order Comment: Reaso n for Exam Microscopic hematuria Name Collection Type:: Voided Performed By: #### F SH, T3F, CBC, TSH3, [id number], CMP, SHAMA, FE and TIBC, LIPID, CUU, [id number], UA #### [address] #### ESTRADIOL, LH #### [facility] , Occult Blood,Urine Negative Normal Negative [facility] Comment on above: Order Comment: Reaso n for Exam Microscopic hematuria Name Collection Type:: Voided Result Comment: PERF ORMED BY: [place] [address] PATHOLOGIST PERSONAL INVESTMENT ADVISER PALOMO WESLEY M.D. Performed By: #### F SH, T3F, CBC, TSH3, [id number], CMP, SHAMA, FE and TIBC, LIPID, CUU, [id number], UA #### [place] [address] [place] #### ESTRADIOL, LH #### [facility] , Protein,Urine Negative Normal Negative [facility] Comment on above: Order Comment: Reaso n for Exam Microscopic hematuria Name Collection Type:: Voided Performed By: #### F SH, T3F, CBC, TSH3, [id number], CMP, SHAMA, FE and TIBC, LIPID, CUU, [id number], UA #### [place] [address] [place] #### ESTRADIOL, LH #### [facility] , Specificy [place],Urine 1.014 Normal 1.001-1.030 [facility] Comment on above: Order Comment: Reaso n for Exam Microscopic hematuria Name Collection Type:: Voided Performed By: #### F SH, T3F, CBC, TSH3, [id number], CMP, SHAMA, FE and TIBC, LIPID, CUU, [id number], UA #### [place] [address] [place] #### ESTRADIOL, LH #### [facility] , Urobilinogen,Urine Normal Normal Normal [facility] Comment on above: Order Comment: Reaso n for Exam Microscopic hematuria Name Collection Type:: Voided Performed By: #### F SH, T3F, CBC, TSH3, [id number], CMP, SHAMA, FE and TIBC, LIPID, CUU, [id number], UA #### [place] [address] [place] #### ESTRADIOL, LH #### [facility] , Urine Cultureon 11-01-2023 Bacteria identified Cx Nom (U) Reason for Exam Microscopic hematuria Urine Reason for Exam: Microscopic hematuria : Urine <9,000 colonies/ml mixed bacterial skin contaminants 2 Days PERFORMED BY: [place] [address] PATHOLOGIST PERSONAL INVESTMENT ADVISER PALOMO WESLEY M.D. Normal [facility] Comment on above: Performed By: #### F SH, T3F, CBC, TSH3, [id number], CMP, SHAMA, FE and TIBC, LIPID, CUU, [id number], UA ####[facility]#### ESTRADIOL, LH ####[facility] , Urine appearanceOrdered By: Jes Cruz on 11-01-2023 Appearance (U) Clear Normal Clear [facility] Comment on above: Order Comment: Reaso n for Exam Microscopic hematuria Name Collection Type:: Voided Performed By: #### F SH, T3F, CBC, TSH3, [id number], CMP, SHAMA, FE and TIBC, LIPID, CUU, [id number], UA #### [address] #### ESTRADIOL, LH #### [facility] , Urine culture routineOrdered By: Jes Cruz on 11-01-2023 Bacteria identified Cx Nom (U) 2 Days [facility] Urobilinogen Test strip (U) [Mass/Vol]Ordered By: Jes Cruz on 11-01-2023 Urobilinogen (U) [Mass/Vol] Normal mg/dL Normal [facility] Vit. B12/Folate Profileon Folate 10.3 ng/mL Normal >5.9 [facility] Comment on above: [...] By: #### F SH, T3F, CBC, TSH3, [id number], CMP, SHAMA, FE and TIBC, LIPID, CUU, [id number], UA ####[facility] [place] [address] [place]#### ESTRADIOL, LH ####[facility] , Vitamin B12 ser/plasOrdered By: Jes Cruz on 11-01-2023 Cobalamin (Vitamin B12) [Mass/Vol] 208 pg/mL Normal 180-914 [facility] Comment on above: Order Comment: Reaso n for Exam Primary hypertension Reason for Exam Low iron Reason for Exam Primary hypertension;Hypertriglyceridemia Reason for Exam Hot flashes Reason for Exam Vitamin D deficiency Performed By: #### F SH, T3F, CBC, TSH3, [id number], CMP, SHAMA, FE and TIBC, LIPID, CUU, [id number], UA ####[facility] [place] [address] [facility]#### ESTRADIOL, LH ####[facility] , Vitamin D 25 Hydroxy Totalon 11-01-2023 Vitamin D 25 Hydroxy Total 34.2 ng/mL Normal 30-100 [facility] Comment on above: [...] practice guideline. JCEM. 2010; 96(7):1911-30. PERFORMED BY: [facility] [address] [place] [address] PATHOLOGIST PERSONAL INVESTMENT ADVISER PALOMO WESLEY M.D. Performed By: #### F SH, T3F, CBC, TSH3, [id number], CMP, SHAMA, FE and TIBC, LIPID, CUU, [id number], UA ####[place] [address] [place] [address] [place]#### ESTRADIOL, LH ####[facility] , Vitamin D+Metabolites [Mass/ volume] in Serum or PlasmaOrdered By: Jes Cruz on 11-01-2023 Vitamin D+Metabolites [Mass/Vol] 34.2 ng/mL 30-100 [facility] Comment on above: VITAMIN D STATUS 25( [place])VITAMIN D RANGE (ng/mL) Deficient <20 Insufficient 20 to <30Sufficient 30 to 100Reference: Baron MF,Suze NC, Abdiel MAXWELL, et al. Evaluation,treatment, and prevention of vitamin D deficiency; an Endocrine Society clinical practice guideline. JCEM. 2010; 96(7):1911-30. pH of Urine by Test stripOrd ered By: Jes Cruz on 11-01-2023 pH (U) 6.5 [pH] Normal 5.0-9.0 [facility] Comment on above: Order Comment: Reaso n for Exam Microscopic hematuria Name Collection Type:: Voided Performed By: #### F SH, T3F, CBC, TSH3, [id number], CMP, SHAMA, FE and TIBC, LIPID, CUU, [id number], UA #### [address] #### ESTRADIOL, LH #### [facility] , Ambulatory Visit Summaryon 0 10-14-2023 Ambulatory Visit Summary Ambulatory Visit Summary RAFA ISELA Butts :1970 Visit Date:10/14/2023 Ambulatory Visit Instructions Your [...] for choosing us for your care. Normal [facility] Provider Letteron 10-14-2023 Provider Letter Provider Letter October 14, 2023 ISELA CRAIG [address] [place] [phone] : 1970 To Whom It May Concern, Please excuse above patient from work. Date of Illness: From: 10/14/23 To: 10/14/23 May Return to Work On: Patient had an appointment on 10/14/23 with SHABNAM Bowens Restrictions: None Comments: Patient had an appointment with SHABNAM Bowens on 10/14/23 Sincerely, [facility] [place] , option #3 Normal [facility] Urology Office/Clinic Noteon 10-14-2023 Urology Office/Clinic [...] E&M of Est. Patient Moderate 30-39 Min 40182 2. History of kidney stones (Z87.442: Personal [...] Urnls Dip Stick Auto w/o Microscopy POC 74982 Follow-up With When Contact Information [facility] [address] [place] [address] Business (1) Additional Instructions: for [...] disease: Mother. (more content not included)... Normal [facility] Comment on above: Result Comment: Elec tronically Signed By: JES ROLLE PA-C\.guillermina\Date and Time Signed: 10/14/23 13:24 EDT Main OR Intraoperative Recor don 10-05-2023 Main OR Intraoperative Record Main OR Intraoperative Record IntraOp Document Type FTURO Summary Primary Physician: JAQUAN PATRICK, Alexandro Hernandez Finalized Date/Time: 10/05/23 09:45:46 Pt. Name: ISELA CRAIG /Sex: 1970 Female Med Rec #: [id number] Physician: Alexandro PARTIDA MD Financial #: [id number] Pt. Type: O Room/Bed: / Admit/Disch: 10/05/23 [...] Kendall R Role Performed Surgeon - Primary Managed Care Provider - Primary Scrub - Primary Time In [...] By: Estrella Aguirre 10/05/23 09:45 Estrella Aguirre E 10/05/23 09:42 Estrella Aguirre E 10/05/23 09:42 Estrella Aguirre E 10/05/23 09:45 Normal [facility] Main OR Preoperative Recordo n 10-05-2023 Main OR Preoperative Record Main OR Preoperative Record Holding Area Document Type FTURO Summary Primary Physician: Alexandro PARTIDA MD Finalized Date/Time: 10/05/23 08:57:00 Pt. Name: RAFAISELA/Sex: 1970 Female Med Rec #: [id number] Physician: Alexandro PARTIDA MD Financial #: [id number] Pt. Type: O Room/Bed: / Admit/Disch: 10/05/23 [...] SEAN Pagan RN, Ruthann 10/05/23 08:57 Normal [facility] Operative Reporton Operative Report Operative Report Patient: ISELA CRAIG [facility]: [id number] Age: 53 years Sex: Female : 1970 [...] Rolle in a month or 2.. Normal [facility] Comment on above: Result Comment: Elec tronically Signed By: Alexandro PARTIDA MD\.br\Date and Time Signed: 10/05/23 09:46 EDT Provider Letteron 10-05-2023 Provider Letter Provider Letter October 05, 2023 To Whom It May Concern, Please excuse above patient from work. Date of Illness: From: 10/05/2023 To: 10/05/2023 May Return On:10/05/2023 Sincerely, [facility] [address], [address] [place] [address] [facility] Insurance Correspondenceon 0 09-28-2023 Insurance Correspondence [id number]#1. 00TIFF [facility] Coding Summary.on 09-23-2023 Coding Summary. NZUOIoiv37MXm0wAm+PG hl YWQ+LI2KTVIzF81niJZfeR 8nS3OYXSxMRdxyZXRMQVfA CtPnysRwPM9jdKYfGQPv IC8+RU4mRPXxSwwsqURhv4 T0yBT9P87lzf8wBClulAI8 WMTaEqXdjutpn0cttHr2PE cuNmluOyBt LRVurJ29BAA6cY69Au86kB GzvRZjf4ockWv9VvQlFDQy XTJ1lXykLNdxi9CbUXMoP8 7tfEMmz8Q0 RBFnbQrmkQQnNhQpxLM5yO 1lTLxvnjbwo5osbzvaUkq4 pr11qFMlr4L9lAH7H5Wngb W5WOIxlPAy AwqhfQTUlY8mcjhmg8vdum rgOwEfDNFoJQh3WUu3UJWy rJiqRuNwNI55TPI7XBZsji OqU8ClNPSr fLnjEdR3r4Z3Cf2VQ2WQAv byK2DAEPHFGDvopDD+PC90 wa60S5IaEelzQtv3ETTqXA D5zLJ8tR1a HERhTPorj3L3yPS9A4Ddaj Pawx3pd3kxBHDnXXvrY15q eCSka8Y9JKDrqDK4GJZjkE xiLlZpoQ44 Oyc+ODHbcNbtr7ErOhhhi4 ukq8xpmRl4IpqmPTHideFr lHhjXZV0w7OhSf3gQBWvlB V8wZZ4eW8o RtLiLoU0ZZwkN132OwEmaO JoAdxrQ99aL9TdnNZ+PHRy Etj2VWGleVdmQE0jQ8KhFK RpbmctbGVm kTqbPA8wEOBymqrbXPVsuN 1zHLJyU1d8ZwBcWvB1WYsf X2MuMGIewbtyPn46mS3tRq RjAdX3LYqx V2GumtW2PYFdtUWyWYmdHR E7Y67vj2K0WELcZYXoEHV7 eYX5hF9dqRvgfnnqtBBddZ sgdmVydGlj ZXvrBYthU700JCHoaRuiWk NvZGluZyBEYXRlOiAgMDYv MjAvMjAyNDwvdGQ+PHRkIH X0qTmrKHPq eGIpTBxrEf8jmSgyaVyrBQ 9dGIYexblpFDNibX0eMYBs uPMmuFwtSE2kGSQmiosgp3 17IrSiRVT9 NKTneEZoX6TusD5uGxWmHG WwQEBnM5IyfDPdNZroZ224 XCpnYlY2GFOkvcWfF2ZkYD FsaWduOiB0 v4W4Er9Lf1UwwfpdV0XduW PyMlAjPvwzNPu6Q2VvBwle dHI+GV03TGJlFY75LKq4IJ V4pRszOAmn FXCkX6JjjC9cHlWhTMMiCX RkOyc+PHRhYmxlIHdpZHRo CNuoCVYeNfXxxRyfVK8xLf 9yZGVyLWNv nKctmYHjDnDqs8bfFJLfRA krUQ1izBvoH8SouUA5GDJh r1l8Sy15Z45gR8CjuYU+PG QtnVS8sAS9 wH4qWpXaFzB1GBurM305Sz DvzBFbBnvpn3ngd2nwbEi5 ClF0DJQwwfCcjSqxGMM8i4 TnEs48D74l IHdpZHRoPSIxNSUiIHZhbG bzhr4ymS5sAi9+PGNvbCB3 uZP3tR0pUnHuXaZ6UTohL2 49InRvcCIv Dybkb9tin0qqqIa8QwNuWK VgynRaqEdyHVJ3w6RvDb45 N2KhjGwly6FxEez6cy12nK Gfk9G0cSE2 G6ObIIUyvpunxJUyjIivXK 0yGSRajradUPWeoQ0fWGWz E0r5HrSwIpH3VFloI7Okwm I4YGTqdAMi RHNrgEKVgI0sdulog8fkin ocDzYtBRUqXXf7CQi4KRJz lYxaHdBtRPN7CeK1SMF2gW LtzV2fpQsc ldtflY1sAqf+VXH4kVMdlV LRED4qHtygrPO+PHRkIHN0 iEonBCqrWPIxoZ5hBUYnY6 b2TlDkRrT4 OFgqS6MhnbU9MEBxoZBtMH WlcDUQiM3igumjx4bazfta YkZhSFDyOCp2DNu6UAPbrP duOiBsZWZ0 WcC0JMO5cFCdqB4blYllrv yfxD8kGzt+QmlydGggRGF0 WDv2O9WwCtj5IQXiaZesLS 0ncGFkZGlu Hn1vvTvrxTpgZK4jFMChoo qoj290TjLrk8fqDCWhnQQh VExcAYO4X11zo3K4USObYZ WxUPM7sZN4 sB6ndIbpvmvqrMIezKgmjg RasFeiVHhiNSfvE717LLDs uAktSgHoZJj7N0RrQsq8QY UxlDrlYI1d nRAoPUygUu9zmNgaoSslHF 1xEUZvtnvxt956PyEni9df GOYfaLItEHskMFQ8W71mh5 S1LQTdYKDe PDD0jKZ4mF6lyPaqxaholI VmdDsgdmVydGljYWwtYWxp B567GRVnwCplTkMkjLg7Z5 DdTpv9MZTa jUgpOX5obFYxMGkaSu3tmV siuWfsNJ6cLPBpbvlid467 HxOuw7ywRRRauVPtEIdcCP V2X11gb8A9 BRDlPKYaXGU0vQM8gW0nsH lnbjogbGVmdDsgdmVydGlj TKbjKTzhS668MFGqgBgqIi BhdGllbnQg CEvmYZu5K0UeAalxlBH+PC 82OHZyDN86zSObrRVug0lb nZa0YrRoUAHoPKV0kPveOK erx1QnSWPv K87jmBAvw1B6KVYqjSoxkZ ToUeLopTU4jE3zOBfldqzc p1zsnkhoVadet6rerm66oY 01N76bNGow ZHRoPSIzMCUiIHZhbGlnbj 8tyU2nMl7+RGTitOI0uTW6 rY7oZHCeGpO0YGlcG970Jc RvcCIvPjxj i0myr3wpiEv4DoV9NXXrvk UsrMicNJB3p0EmXm43K47q IHdpZHRoPSIyMCUiIHZhbG hdol1aiN4d Ii8+CMUatVE9xPX3gD3vEo YnUyF8EKqbH775CoSamWJv HpavS84eE7XclKR+PHRyPj b8MQDvfSvt IW9tpEJpWLcuSw0oUJU0Ag DlKrUcNWotN0HvVADgxoxd xvmfgSO1AAJjIJTlcC01Nk 9udDogMTBw rWAXxK1znjuzp7jvzgzwRx EkYPLeXIj7URa8NXNocGgi PwCvGQB7RcX0FDA0hQFzsT 1hbGlnbjog hU8yT0XoEZOpihysYp95eW 5dScQmKoD8CAndXle+Q09S QklOLCBDSEVOTkkgSzwvdG Q+PHRkIHN0 bCucEHxjATXasS4nWKCrU0 w3BhDqTkZ0VGyhQ5YuHLHb mpfcFq04oU9hQdClFhX9QC syQ9NpwrG2 SAQnjRXcQAsnFLP3N53gt1 B9KMAgXWFiHTR5zPG0nP5b bGlnbjogbGVmdDsgdmVydG ljYWwtYWxp F557EPCipZxvXoVzHvWkDa A2BaI3O1DhMzs4NDEdbPss TA2apMBbBZsgSw1scQucvS omFW0vYTUm hyugDSVxwU3oXEMijVPewJ lzGQ8nRMVxdcfpc560ImNc OUK7BYVfzUUnY7GdwE8tRq AjMDAwMDAw O7UjhTKoAZdlD797RSmiRj N3UUUvicPaS9MhOUChfSwe KwM4a9A9Jw91OpHWLQSjlk wvdGQ+PHRk OGB7uLxqXJctJICnfO4wAN WjE6f2EbIdTbS9VXkaK4Fx XUHyiaeuFn54hA5aLkGsKb D9MWmdW2Lx noX6EIQqnJIrBQxnWBX4R5 3ce8T9DKFjPJVfCPY5xIU3 gL0phKdpdaohaIRwkIaepr VydGljYWwt FZqfW150WXJuoYwpUnGacQ FsZTwvdGQ+FNWjJKM5pHzx ZNfqDRRgnJ9jDBStE2k0Eh PwVjJ8VRdo K4OqKEBpgezhJp34sC3jAi BxFdZ4UTutG6ErcdX7WGNm tERkXUmlFKL8T44om1S5EC MwMDAwMDA7 aUT9pZ4dhTkcfmbfxXNhlX ljuzBeoWhlGBodEHkuE185 LZWvlNbnXs07xABqwEkjfe F0P7HcTkib dHI+NV71TKLnPS00xJEinD Zwk3hjqNz6WzFwUEGoIZV4 vRsjQXgoz6EjXQCnW72sjB Dcu3L2HDYl pBwotKXjZyQmaQD2qK4zAP hqjsadr9minbckPtfkn9nu iv36kY53N94vTTprFWAfWV IzMCUiIHZh mOxuro9foI5uJw5+PGNvbC R2tEM9bM8yVoPbYtG6CQyd T710WlMvxHKnWufpw5kda7 wbeNz0FnDh ZSFrycAydXawYNG2y6RwJu 54D09aDAwvUNZnLCBoXOLr YCPbfCliib6efK3oNz6+PC 0qm5wfgn30 fU07wXC+AUPbQEL2sPszZP cpUZKoqE8tZNgfRhC2LULm SjSnmN14uLGhUZytYj4gtV kmlVjkDJ1p VGRrlrwkf882XzIea6xsPM NzuTHuJIdwHOF0K63mo0O1 FWQkMIDbQYU3lZW7lC9zmX lnbjogbGVm dDsgdmVydGljYWwtYWxpZ2 85GPDjmRceJjIarOUzQ2mq ohFUVA9dMyevmQK+PHRkIH S0lMlwADwg TZPmvC2rPFHjN5z3FtIxYl L0JSrkI9FzduV3DACwfYTx RMPlbURIfR8pgrpiq9ofkt ogIzAwMDAw GFk4RAi9CLMywRmpBgAoVE Z0AaV3SJI5iBSkrN5bpYiv ofpyyA1xEaa+RklOOjwvdG Q+PHRkIHN0 fYcyTKuaIVKrsV4mJLGpB2 p8KdTdGoP6GXsyS7YqwiA9 UOAqzKLeWOEshMJSyN6bij tqg6taunys SvHvZATbYNn1DQt0ZIHcoC jcCyDjPFE7ZuK2BNM7wOUc tQ8hbKytlkwbzX1aAvw+TV JOOjwvdGQ+ ZFJbGFU6aYddKAnzJFLiuA 9wZDYtC6p1WpGmXyQ5IEbr R5VlbiI0TIDwqFBxJIOkhS WXdK5seint k3bszdmyVrFmJCKaPDd6UG g9HMItdEavDgHrPXA2ApH2 KQD5rSDrbO6kgIqareghxY 9wOyc+UGF5 ASV8LF04NP00V2NjZsflnR FibGU+PHRhYmxlIHdpZHRo XJuiEGVfWfHcwSujAL1rBd 9yZGVyLWNv bGxhcHNlOiBjb (more content not included)... Normal [facility] CBC AND AUTO DIFFon 09-18-19 24 ABSOLUTE BASOPHIL 0.0 X10E9/L Normal 0.0-0.2 [place] Comment on above: Performed By: #### C KEYSHAWN KIRKPATRICK, 3040-3 #### [facility] ([id number]) [address] [place] [id number] ABSOLUTE NEUTROPHIL 3.2 X10E9/L Normal 1.5-6.6 [facility] Comment on above: Performed By: #### C KEYSHAWN KIRKPATRICK, 3040-3 #### [facility] ([id number]) [address] [place] [address]13 Basophils/100 WBC (Bld) 0.7 % Normal [facility] Comment on above: Performed By: #### C KEYSHAWN KIRKPATRICK, 3040-3 #### [facility] ([id number]) [address] [place] [address] 26955 Eosinophils (Bld) [#/Vol] 0.1 10*3/uL Normal 0.0-0.4 [facility] Comment on above: Performed By: #### C KEYSHAWN KIRKPATRICK, 3 #### [facility] ([id number]) [address] [place] [address]676 Eosinophils/100 WBC (Bld) 2.4 % Normal [facility] Comment on above: Performed By: #### Terrie KIRKPATRICK [facility], 3 #### [facility] ([id number]) [address] [place] [address]73 Erythrocyte distribution width (RBC) [Ratio] 13.6 % Normal 11.5-15.0 [facility] Comment on above: Performed By: #### Terrie KIRKPATRICK CMP, 3 #### [facility] ([id number]) [address] [place] [address]791 Hematocrit (Bld) [Volume fraction] 34.5 % Low 35-47 [facility] Comment on above: Performed By: #### Terrie [facility], 3039-06 #### [facility] ([id number]) [address] [place] [address] 92454 Hemoglobin (Bld) [Mass/Vol] 11.6 g/dL Low 11.7-15.5 [facility] Comment on above: Performed By: #### Terrie KIRKPATRICK CMP, 3 #### [facility] ([id number]) [address] [place] [address] 66569 Lymphocytes (Bld) [#/Vol] 1.9 10*3/uL Normal 1.0-3.5 [facility] Comment on above: Performed By: #### Terrie KIRKPATRICK CMP, 3 #### [facility] ([id number]) [address] [place] [address] 73036 Lymphocytes/100 WBC (Bld) 30.9 % Normal [facility] Comment on above: Performed By: #### Terrie KIRKPATRICK CMP, 3039-06 #### [facility] ([id number]) [address] [place] [address] 89897 MCH (RBC) [Entitic mass] 33.1 pg Normal 27-34 [facility] Comment on above: Performed By: #### C KAYA, CMP, 3039-3 #### [facility] ([id number]) [address] [place] [address] 58664 MCHC (RBC) [Mass/Vol] 33.6 g/dL Normal 32-36 [facility] Comment on above: Performed By: #### Terrie KIRKPATRICK, CMP, 3039-06 #### [facility] ([id number]) [address] [place] [address] 37285 MCV (RBC) [Entitic vol] 99 fL Normal 80-100 [facility] Comment on above: Performed By: #### Terrie KIRKPATRICK, CMP, 3039-06 #### [facility] ([id number]) [address] [place] [address] 36361 Monocytes (Bld) [#/Vol] 0.9 10*3/uL Normal 0-0.9 [facility] Comment on above: Performed By: #### Terrie KIRKPATRICK, CMP, 3039-06 #### [facility] ([id number]) [address] [place] [address] 77982 Monocytes/100 WBC (Bld) 13.8 % Normal [facility] Comment on above: Performed By: #### Terrie KIRKPATRICK, CMP, 3039-06 #### [facility] ([id number]) [address] [place] [address] 38326 Neutrophils/100 WBC (Bld) 52.2 % Normal [facility] Comment on above: Performed By: #### Terrie KIRKPATRICK, CMP, 3039-3 #### [facility] ([id number]) [address] [place] [address] 89896 Platelet mean volume (Bld) [Entitic vol] 9.1 fL Normal 7-12 [facility] Comment on above: Performed By: #### Terrie KIRKPATRICK CMP, 0-3 #### [facility] ([id number]) [address] [place] [address] 90587 Platelets (Bld) [#/Vol] 291 10*3/uL Normal 150-450 [facility] Comment on above: Performed By: #### Terrie KIRKPATRICK CMP, 3039-3 #### [facility] ([id number]) [address] [place] [address] 17843 RBC COUNT 3.50 X10E12/L Low 3.80-5.20 [facility] Comment on above: Performed By: #### Terrie KIRKPATRICK CMP, 3039-3 #### [facility] ([id number]) [address] [place] [address] 02172 WBC (Bld) [#/Vol] 6.2 10*3/uL Normal 4.0-11.0 [place] Comment on above: Performed By: #### Terrie KIRKPATRICK, CMP, 3039-3 #### [facility] ([id number]) [address] [place] [address] 80216 COMPREHENSIVE METABOLIC PANE Hema 09-18-2023 Albumin [Mass/Vol] 3.8 g/dL Normal 3.2-5.3 [place] Comment on above: Performed By: #### Terrie KIRKPATRICK, CMP, 0-3 #### [facility] ([id number]) [address] [place] [address] 69721 ALP [Catalytic activity/Vol] 64 U/L Normal 39-130 [facility] Comment on above: Performed By: #### Terrie KIRKPATRICK, CMP, 3039-3 #### [facility] ([id number]) [address] [place] [address] 45523 ALT [Catalytic activity/Vol] 18 U/L Normal 0-31 [facility] Comment on above: Performed By: #### C KEYSHAWN KIRKPATRICK, 3039-3 #### [facility] ([id number]) [address] [place] [address] 14865 Anion gap [Moles/Vol] 7 mmol/L Normal 5-15 [facility] Comment on above: Performed By: #### Terrie KIRKPATRICK CMP, 3039-3 #### [facility] ([id number]) [address] [place] [address] 33688 AST [Catalytic activity/Vol] 19 U/L Normal 0-41 [facility] Comment on above: Performed By: #### Terrie KIRKPATRICK CMP, 3039-06 #### [facility] ([id number]) [address] [place] [address] 21451 Bilirubin [Mass/Vol] 0.6 mg/dL Normal 0.3-1.2 [facility] Comment on above: Performed By: #### Terrie KIRKPATRICK CMP, 3 #### [facility] ([id number]) [address] [place] [address] 05551 Calcium [Mass/Vol] 8.4 mg/dL Low 8.5-10.5 [place] Comment on above: Performed By: #### Terrie KIRKPATRICK CMP, 3039-06 #### [facility] ([id number]) [address] [place] [address] 02181 Chloride [Moles/Vol] 105 mmol/L Normal 98-109 [facility] Comment on above: Performed By: #### Terrie KIRKPATRICK CMP, 3 #### [facility] ([id number]) [address] [place] [address] 57329 CO2 [Moles/Vol] 26 mmol/L Normal 22-32 [facility] Comment on above: Performed By: #### Terrie BCA CMP, 3039-3 #### [facility] ([id number]) [address] [place] [address] 63768 Creatinine [Mass/Vol] 1.03 mg/dL High 0.40-1.00 [facility] Comment on above: Result Comment: METH OD TRACEABLE TO IDMS STANDARD Performed By: #### C KEYSHAWN KIRKPATRICK, 3040-3 #### [facility] ([id number]) [address] [place] [address] 98764 GFR/1.73 sq M.predicted among non-blacks MDRD (S/P/Bld) [Vol rate/Area] 65 mL/min/{1.73_m2} Normal >59 [facility] Comment on above: Result Comment: Reported eGFR is based on the CKD-EPI 2020 equation that does not use a race coefficient. Performed By: #### C KEYSHAWN KIRKPATRICK, 3039-3 #### [facility] ([id number]) [address] [place] [address] 17864 Glucose [Mass/Vol] 99 mg/dL Normal 65-99 [place] Comment on above: Performed By: #### C KEYSHAWN KIRKPATRICK, 3039-06 #### [facility] ([id number]) [address] [place] [address] 36731 Potassium [Moles/Vol] 3.4 mmol/L Low 3.5-5.0 [facility] Comment on above: Performed By: #### C KEYSHAWN KIRKPATRICK, 3039-06 #### [facility] ([id number]) [address] [place] [address] 97110 Protein [Mass/Vol] 6.9 g/dL Normal 6.0-8.0 [place] Comment on above: Performed By: #### Terrie KIRKPATRICK CMP, 3039-3 #### [facility] ([id number]) [address] [place] [address] 06963 Sodium [Moles/Vol] 138 mmol/L Normal 134-146 [place] Comment on above: Performed By: #### C KEYSHAWN KIRKPATRICK, 3040-3 #### [facility] ([id number]) [address] [place] [address] 85673 Urea nitrogen [Mass/Vol] 10 mg/dL Normal 5-23 [facility] Comment on above: Performed By: #### C KEYSHAWN KIRKPATRICK, 3040-3 #### [facility] ([id number]) [address] [place] [address] BRAIN WO CONTon 4 CT BRAIN [...] Frances on 09/18/2023 9:21 PM Normal [facility] LIPASEon 09-18-2023 Lipase [Catalytic activity/Vol] 36 U/L Normal 17-40 [facility] Comment on above: Performed By: #### C KEYSHAWN KIRKPATRICK, 3040-3 #### [facility] ([id number]) [address] [place] [address] 22736 URN MACROSCOPIC NURon 2023 BILIRUBIN SHADY Negative Normal NEG [facility] Comment on above: Performed By: #### N UM #### [facility] ([id number]) [address] [place] [address] 72506 BLOOD/HGB SHADY Trace Abnormal NEG [facility] Comment on above: Performed By: #### N UM #### [facility] ([id number]) [address] [place] [address] 68039 GLUCOSE SHADY Negative Normal NEG [facility] Comment on above: Performed By: #### N UM #### [facility] ([id number]) [address] [place] [address] [place] [address] KETONES SHADY Negative Normal NEG [facility] Comment on above: Performed By: #### N UM #### [facility] ([id number]) [address] [place] [address] 07345 LEUKOCYTE ESTERASE SHADY Negative Normal NEG Pr [facility] Comment on above: Performed By: #### N UM #### [facility] ([id number]) [address] [place] [address] 00963 NITRITE SHADY Negative Normal NEG [facility] Comment on above: Performed By: #### N UM #### [facility] ([id number]) [address] [place] [address] 30502 PH SHADY 6.0 Normal 5.0-8.5 [facility] Comment on above: Performed By: #### N UM #### [facility] ([id number]) [address] [place] [address] 85165 PROTEIN SHADY Negative Normal NEG [facility] Comment on above: Performed By: #### N UM #### [facility] ([id number]) [address] [place] [address] 66517 SPECIFIC GRAVITY SHADY 1.010 Normal 1.003-1.035 [facility] Comment on above: Performed By: #### N UM #### [facility] ([id number]) [address] [place] [address] 43768 UROBILINOGEN SHADY 0.2 eu/dL Normal <1.1 [facility] Comment on above: Performed By: #### N #### [facility] ([id number]) [address] [place] [address], [place] [address] Consent for Treatmenton 09-03 Consent for Treatment [id number]#1.0 0TIFF Normal [facility] Heart and Vascular Office/Cl inic Noteon [...] with voice recognition artificial intelligence software, specifically [employer], [employer] and or [employer]. Substitutions may have occurred due to the [...] History Ca (more content not included)... Normal [facility] Comment on above: Result Comment: Elec tronically Signed By: Deepak MOSES, [place] Remy\.br\Date and Time Signed: 09/13/23 13:41 EDT Insurance Correspondenceon 0 09-13-2023 Insurance Correspondence [id number]#1.0 0TIFF [facility] Outside Labson 09-13-2023 Outside Labs [id number] 01 [id number]#1. 00TIFF [facility] Outside Recordson 09-13-2023 Outside Records [id number]#1. 00TIFF [facility] Outside Records [id number]#1. 00TIFF [facility] Physician Orderon 09-13-2023 Physician Order [id number]#1. 00TIFF [facility] RAD - CT Reporton 08-31-20[address] RAD - CT Report [id number] 03 [id number]#1.00 TIFF [facility] Lab Reportson 08-17-2023 Lab Reports [id number] 03 [id number]#1.0 0TIFF [facility] Urine Cytology ([facility])on 0 08-17-2023 Microscopic exam Cytology (U) [Interp] Diagnosis Info Invalid Interpretation Code [facility] Comment on above: Result Comment: A:Ur ine,Urine:Voided Interpretation - MicroScopic Description - Adequacy - Gross Description Site ID:A color Light Yellow fixative Alcohol Specimen designated Urine received in alcohol preservative and labeled with the patient?s name, consists of 60ml clear light yellow fluid. Electronically signed by : on: 08/17/2023 14:12:20 Performed By: #### 1 [id number] ####[facility] [address] [place] [address] Lab Reportson 08-11-2023 Lab Reports [id number]#1.00 TIFF Normal [facility] Physician Referralon 024 Physician Referral [id number] 03 [id number]#1.0 0TIFF Normal [facility] RAD - MISCon 08-11-2023 RAD - MISC [id number] 03 [id number]#1.0 0TIFF Normal [facility] RAD - Ultrasound Reporton RAD - Ultrasound Report [id number]#1.0 0TIFF Normal [facility] Screenson 08-11-2023 Screens [id number]#1.0 0TIFF Normal [facility] Ambulatory Visit Summaryon 0 08-10-2023 Ambulatory Visit Summary RAFA ISELA Butts :1970 Visit Date:08/10/2023 Ambulatory Visit Instructions Your [...] JES ROLLE PA-C, URL When: Where: [address] [place] [address] [id number] Medications What How Much When Instructions Unchanged [...] make many (more content not included)... Normal [facility] Patient Educationon 08-10-19 24 Patient Education [...] require a prescription. You can also purchase cgzv-ezm-zdlfcbw medicines. Medicines may have nicotine in them [...] and encouragement. Call telephone quitlines, such as 4-502-LUSP-NOW, reach out to support groups, or work [...] quit smoki (more content not included)... Normal [facility] Urine Cytology ([facility])on 08-10-2023 Method of Extraction Voided Normal [facility] Comment on above: Performed By: #### 1 [id number] ####[facility] [address] [place] [address] Number of Jars 1 Invalid Interpretation Code [facility] Comment on above: Performed By: #### 1 [id number] ####[facility] [address] [facility] [place] [address] UC Specimen Urine Normal [facility] Comment on above: Performed By: #### 1 [id number] ####[facility] [address] [facility] [place] [address] Type of Service Technical Only Normal [facility] Comment on above: Performed By: #### 1 [id number] ####[facility] [address] [facility] [place] [address] Complete Blood Count Auto Di ffon 06-09-2023 Basophils (Bld) [#/Vol] 0.0 10*3/uL Normal 0.0-0.2 [facility] Comment on above: Order Comment: Reaso n for Exam Urinary frequency;Medication management;Anxiety;Microscopic Result Comment: PERF ORMED BY: [facility] [address] [place] [address] PATHOLOGIST PERSONAL INVESTMENT ADVISER PALOMO WESLEY M.D. Performed By: #### U RMACRERAT, FE and TIBC, LIPID, SHAMA, CMP, CBC, [id number], THYROID SC, LDLD ####[address]#### TOXASSURE, HIV SCREEN ####[facility] , Basophils/100 WBC (Bld) 0.3 % Normal . [facility] Comment on above: Order Comment: Reaso n for Exam Urinary frequency;Medication management;Anxiety;Microscopic Performed By: #### U RMACRERAT, FE and TIBC, LIPID, SHAMA, CMP, CBC, [id number], THYROID SC, LDLD ####[address]#### TOXASSURE, HIV SCREEN ####[facility] , Eosinophils (Bld) [#/Vol] 0.1 10*3/uL Normal 0.0-0.45 [facility] Comment on above: Order Comment: Reaso n for Exam Urinary frequency;Medication management;Anxiety;Microscopic Performed By: #### U RMACRERAT, FE and TIBC, LIPID, SHAMA, CMP, CBC, [id number], THYROID SC, LDLD ####[address]#### TOXASSURE, HIV SCREEN ####[facility] , Eosinophils/100 WBC (Bld) 1.7 % Normal . [facility] Comment on above: Order Comment: Reaso n for Exam Urinary frequency;Medication management;Anxiety;Microscopic Performed By: #### U RMACRERAT, FE and TIBC, LIPID, SHAMA, CMP, CBC, [id number], THYROID SC, LDLD ####[address]#### TOXASSURE, HIV SCREEN ####[facility] , Erythrocyte distribution width (RBC) [Ratio] 13.2 % Normal 11.9-15.3 [facility] Comment on above: Order Comment: Reaso n for Exam Urinary frequency;Medication management;Anxiety;Microscopic Performed By: #### U RMACRERAT, FE and TIBC, LIPID, SHAMA, CMP, CBC, [id number], THYROID SC, LDLD ####[address]#### TOXASSURE, HIV SCREEN ####[facility] , Hematocrit (Bld) [Volume fraction] 41.9 % Normal 34.0-46.4 [facility] Comment on above: Order Comment: Reaso n for Exam Urinary frequency;Medication management;Anxiety;Microscopic Performed By: #### U RMACRERAT, FE and TIBC, LIPID, SHAMA, CMP, CBC, [id number], THYROID SC, LDLD ####[address]#### TOXASSURE, HIV SCREEN ####[facility] , Hemoglobin (Bld) [Mass/Vol] 14.0 g/dL Normal 11.8-15.4 [facility] Comment on above: Order Comment: Reaso n for Exam Urinary frequency;Medication management;Anxiety;Microscopic Performed By: #### U RMACRERAT, FE and TIBC, LIPID, SHAMA, CMP, CBC, [id number], THYROID SC, LDLD ####[address]#### TOXASSURE, HIV SCREEN ####[facility] , Lymphocytes (Bld) [#/Vol] 2.2 10*3/uL Normal 1.00-4.8 [facility] Comment on above: Order Comment: Reaso n for Exam Urinary frequency;Medication management;Anxiety;Microscopic Performed By: #### U RMACRERAT, FE and TIBC, LIPID, SHAMA, CMP, CBC, [id number], THYROID SC, LDLD ####[address]#### TOXASSURE, HIV SCREEN ####[facility] , Lymphocytes/100 WBC (Bld) 30.2 % Normal . [facility] Comment on above: Order Comment: Reaso n for Exam Urinary frequency;Medication management;Anxiety;Microscopic Performed By: #### U RMACRERAT, FE and TIBC, LIPID, SHAMA, CMP, CBC, [id number], THYROID SC, LDLD ####[address]#### TOXASSURE, HIV SCREEN ####[facility] , MCH (RBC) [Entitic mass] 32.8 pg Normal 24.7-34.3 [facility] Comment on above: Order Comment: Reaso n for Exam Urinary frequency;Medication management;Anxiety;Microscopic Performed By: #### U RMACRERAT, FE and TIBC, LIPID, SHAMA, CMP, CBC, [id number], THYROID SC, LDLD ####[address]#### TOXASSURE, HIV SCREEN ####[facility] , MCV (RBC) [Entitic vol] 98.5 fL Normal 80-100 [facility] Comment on above: Order Comment: Reaso n for Exam Urinary frequency;Medication management;Anxiety;Microscopic Performed By: #### U RMACRERAT, FE and TIBC, LIPID, SHAMA, CMP, CBC, [id number], THYROID SC, LDLD ####[address]#### TOXASSURE, HIV SCREEN ####[facility] , Mean Corpuscular HGB Conc 33.3 g/dL Normal 32.0-35.0 [facility] Comment on above: Order Comment: Reaso n for Exam Urinary frequency;Medication management;Anxiety;Microscopic Performed By: #### U RMACRERAT, FE and TIBC, LIPID, SHAMA, CMP, CBC, [id number], THYROID SC, LDLD ####[address]#### TOXASSURE, HIV SCREEN ####[facility] , Monocytes (Bld) [#/Vol] 0.8 10*3/uL Normal 0.0-0.8 [facility] Comment on above: Order Comment: Reaso n for Exam Urinary frequency;Medication management;Anxiety;Microscopic Performed By: #### U RMACRERAT, FE and TIBC, LIPID, SHAMA, CMP, CBC, [id number], THYROID SC, LDLD ####[address]#### TOXASSURE, HIV SCREEN ####[facility] , Monocytes/100 WBC (Bld) 10.9 % Normal . [facility] Comment on above: Order Comment: Reaso n for Exam Urinary frequency;Medication management;Anxiety;Microscopic Performed By: #### U RMACRERAT, FE and TIBC, LIPID, SHAMA, CMP, CBC, [id number], THYROID SC, LDLD ####[address]#### TOXASSURE, HIV SCREEN ####[facility] , Neutrophils (Bld) [#/Vol] 4.1 10*3/uL Normal 1.8-7.7 [facility] Comment on above: Order Comment: Reaso n for Exam Urinary frequency;Medication management;Anxiety;Microscopic Performed By: #### U RMACRERAT, FE and TIBC, LIPID, SHAMA, CMP, CBC, [id number], THYROID SC, LDLD ####[place] [address] [address]#### TOXASSURE, HIV SCREEN ####[facility] , Neutrophils/100 WBC (Bld) 56.9 % Normal . [facility] Comment on above: Order Comment: Reaso n for Exam Urinary frequency;Medication management;Anxiety;Microscopic Performed By: #### U RMACRERAT, FE and TIBC, LIPID, SHAMA, CMP, CBC, [id number], THYROID SC, LDLD ####[address]#### TOXASSURE, HIV SCREEN ####[facility] , NRBC% 0.1 /100{WBC} Normal 0-0.5 [facility] Comment on above: Order Comment: Reaso n for Exam Urinary frequency;Medication management;Anxiety;Microscopic Performed By: #### U RMACRERAT, FE and TIBC, LIPID, SHAMA, CMP, CBC, [id number], THYROID SC, LDLD ####[place] [address] [place]#### TOXASSURE, HIV SCREEN ####[facility] , Platelet mean volume (Bld) [Entitic vol] 9.0 fL Normal 6.3-10.7 [facility] Comment on above: Order Comment: Reaso n for Exam Urinary frequency;Medication management;Anxiety;Microscopic Performed By: #### U RMACRERAT, FE and TIBC, LIPID, SHAMA, CMP, CBC, [id number], THYROID SC, LDLD ####[place] [address] [place] [address] [place]#### TOXASSURE, HIV SCREEN ####[facility] , Platelets (Bld) [#/Vol] 314 10*3/uL Normal 150-450 [facility] Comment on above: Order Comment: Reaso n for Exam Urinary frequency;Medication management;Anxiety;Microscopic Performed By: #### U RMACRERAT, FE and TIBC, LIPID, SHAMA, CMP, CBC, [id number], THYROID SC, LDLD ####[address]#### TOXASSURE, HIV SCREEN ####[facility] , RBC (Bld) [#/Vol] 4.26 10*6/uL Normal 3.60-5.00 [facility] Comment on above: Order Comment: Reaso n for Exam Urinary frequency;Medication management;Anxiety;Microscopic Performed By: #### U RMACRERAT, FE and TIBC, LIPID, SHAMA, CMP, CBC, [id number], THYROID SC, LDLD ####[address]#### TOXASSURE, HIV SCREEN ####[facility] , WBC (Bld) [#/Vol] 7.2 10*3/uL Normal 3.8-11.6 [facility] Comment on above: Order Comment: Reaso n for Exam Urinary frequency;Medication management;Anxiety;Microscopic Performed By: #### U RMACRERAT, FE and TIBC, LIPID, SHAMA, CMP, CBC, [id number], THYROID SC, LDLD ####[address]#### TOXASSURE, HIV SCREEN ####[facility] , Comprehensive Metabolic Pane hema 06-09-2023 Albumin [Mass/Vol] 4.2 g/dL Normal 3.5-5.7 [facility] Comment on above: Order Comment: Reaso n for Exam Urinary frequency;Medication management;Anxiety;Microscopic Reason for Exam Microscopic hematuria;Low iron Reason for Exam Bipolar affective disorder, currently depressed, moderate Reason for Exam Vitamin D deficiency Performed By: #### U RMACRERAT, FE and TIBC, LIPID, SHAMA, CMP, CBC, [id number], THYROID SC, LDLD ####[address]#### TOXASSURE, HIV SCREEN ####[facility] , Albumin/Globulin [Mass ratio] 1.4 {ratio} Normal [facility] Comment on above: Order Comment: Reaso n for Exam Urinary frequency;Medication management;Anxiety;Microscopic Reason for Exam Microscopic hematuria;Low iron Reason for Exam Bipolar affective disorder, currently depressed, moderate Reason for Exam Vitamin D deficiency Performed By: #### U RMACRERAT, FE and TIBC, LIPID, SHAMA, CMP, CBC, [id number], THYROID SC, LDLD ####[address]#### TOXASSURE, HIV SCREEN ####[facility] , ALP [Catalytic activity/Vol] 87 U/L Normal 34-104 [facility] Comment on above: Order Comment: Reaso n for Exam Urinary frequency;Medication management;Anxiety;Microscopic Reason for Exam Microscopic hematuria;Low iron Reason for Exam Bipolar affective disorder, currently depressed, moderate Reason for Exam Vitamin D deficiency Performed By: #### U RMACRERAT, FE and TIBC, LIPID, SHAMA, CMP, CBC, [id number], THYROID SC, LDLD ####[place] [address] [place]#### TOXASSURE, HIV SCREEN ####[facility] , ALT [Catalytic activity/Vol] 10 U/L Normal 7-52 [facility] Comment on above: Order Comment: Reaso n for Exam Urinary frequency;Medication management;Anxiety;Microscopic Reason for Exam Microscopic hematuria;Low iron Reason for Exam Bipolar affective disorder, currently depressed, moderate Reason for Exam Vitamin D deficiency Performed By: #### U RMACRERAT, FE and TIBC, LIPID, SHAMA, CMP, CBC, [id number], THYROID SC, LDLD ####[place] [address] [place]#### TOXASSURE, HIV SCREEN ####[facility] , Anion gap [Moles/Vol] 12.9 mmol/L Normal 6.0-15.0 [facility] Comment on above: Order Comment: Reaso n for Exam Urinary frequency;Medication management;Anxiety;Microscopic Reason for Exam Microscopic hematuria;Low iron Reason for Exam Bipolar affective disorder, currently depressed, moderate Reason for Exam Vitamin D deficiency Performed By: #### U RMACRERAT, FE and TIBC, LIPID, SHAMA, CMP, CBC, [id number], THYROID SC, LDLD ####[place] [address] [address]#### TOXASSURE, HIV SCREEN ####[facility] , AST [Catalytic activity/Vol] 12 U/L Low 13-39 [facility] Comment on above: Order Comment: Reaso n for Exam Urinary frequency;Medication management;Anxiety;Microscopic Reason for Exam Microscopic hematuria;Low iron Reason for Exam Bipolar affective disorder, currently depressed, moderate Reason for Exam Vitamin D deficiency Performed By: #### U RMACRERAT, FE and TIBC, LIPID, SHAMA, CMP, CBC, [id number], THYROID SC, LDLD ####[address]#### TOXASSURE, HIV SCREEN ####[facility] , Bilirubin [Mass/Vol] 0.2 mg/dL Low 0.3-1.0 [facility] Comment on above: Order Comment: Reaso n for Exam Urinary frequency;Medication management;Anxiety;Microscopic Reason for Exam Microscopic hematuria;Low iron Reason for Exam Bipolar affective disorder, currently depressed, moderate Reason for Exam Vitamin D deficiency Performed By: #### U RMACRERAT, FE and TIBC, LIPID, SHAMA, CMP, CBC, [id number], THYROID SC, LDLD ####[address]#### TOXASSURE, HIV SCREEN ####[facility] , Calcium [Mass/Vol] 9.5 mg/dL Normal 8.6-10.3 [facility] Comment on above: Order Comment: Reaso n for Exam Urinary frequency;Medication management;Anxiety;Microscopic Reason for Exam Microscopic hematuria;Low iron Reason for Exam Bipolar affective disorder, currently depressed, moderate Reason for Exam Vitamin D deficiency Performed By: #### U RMACRERAT, FE and TIBC, LIPID, SHAMA, CMP, CBC, [id number], THYROID SC, LDLD ####[address]#### TOXASSURE, HIV SCREEN ####[facility] , Chloride [Moles/Vol] 105 mmol/L Normal 98-107 [facility] Comment on above: Order Comment: Reaso n for Exam Urinary frequency;Medication management;Anxiety;Microscopic Reason for Exam Microscopic hematuria;Low iron Reason for Exam Bipolar affective disorder, currently depressed, moderate Reason for Exam Vitamin D deficiency Performed By: #### U RMACRERAT, FE and TIBC, LIPID, SHAMA, CMP, CBC, [id number], THYROID SC, LDLD ####[address]#### TOXASSURE, HIV SCREEN ####[facility] , CO2 [Moles/Vol] 25.0 mmol/L Normal 21.0-31.0 [facility] Comment on above: Order Comment: Reaso n for Exam Urinary frequency;Medication management;Anxiety;Microscopic Reason for Exam Microscopic hematuria;Low iron Reason for Exam Bipolar affective disorder, currently depressed, moderate Reason for Exam Vitamin D deficiency Performed By: #### U RMACRERAT, FE and TIBC, LIPID, SHAMA, CMP, CBC, [id number], THYROID SC, LDLD ####[address]#### TOXASSURE, HIV SCREEN ####[facility] , Creatinine [Mass/Vol] 0.63 mg/dL Normal 0.60-1.20 [facility] Comment on above: Order Comment: Reaso n for Exam Urinary frequency;Medication management;Anxiety;Microscopic Reason for Exam Microscopic hematuria;Low iron Reason for Exam Bipolar affective disorder, currently depressed, moderate Reason for Exam Vitamin D deficiency Performed By: #### U RMACRERAT, FE and TIBC, LIPID, SHAMA, CMP, CBC, [id number], THYROID SC, LDLD ####[place] [address] [address]#### TOXASSURE, HIV SCREEN ####[facility] , GFR/1.73 sq M.predicted MDRD (S/P/Bld) [Vol rate/Area] mL/min/{1.73_m2} Normal [facility] Comment on above: Order Comment: Reaso n for Exam Urinary frequency;Medication management;Anxiety;Microscopic Reason for Exam Microscopic hematuria;Low iron Reason for Exam Bipolar affective disorder, currently depressed, moderate Reason for Exam Vitamin D deficiency Performed By: #### U RMACRERAT, FE and TIBC, LIPID, SHAMA, CMP, CBC, [id number], THYROID SC, LDLD ####[address]#### TOXASSURE, HIV SCREEN ####[facility] , Globulin (S) [Mass/Vol] 2.9 g/dL Normal [facility] Comment on above: Order Comment: Reaso n for Exam Urinary frequency;Medication management;Anxiety;Microscopic Reason for Exam Microscopic hematuria;Low iron Reason for Exam Bipolar affective disorder, currently depressed, moderate Reason for Exam Vitamin D deficiency Performed By: #### U RMACRERAT, FE and TIBC, LIPID, SHAMA, CMP, CBC, [id number], THYROID SC, LDLD ####[address]#### TOXASSURE, HIV SCREEN ####[facility] , Glucose [Mass/Vol] 90 mg/dL Normal 70-100 [facility] Comment on above: Order Comment: Reaso n for Exam Urinary frequency;Medication management;Anxiety;Microscopic Reason for Exam Microscopic hematuria;Low iron Reason for Exam Bipolar affective disorder, currently depressed, moderate Reason for Exam Vitamin D deficiency Result Comment: [facility] [place][note 2] Glucose Reference Range is dependent on time and content of last meal. Glucose of more than 200 mg/dL in a nonstressed, ambulatory subject supports the diagnosis of Diabetes Mellitus. ADA recommended reference range Performed By: #### U RMACRERAT, FE and TIBC, LIPID, SHAMA, CMP, CBC, [id number], THYROID SC, LDLD ####[facility]#### TOXASSURE, HIV SCREEN ####[facility] , Potassium [Moles/Vol] 3.9 mmol/L Normal 3.5-5.1 [facility] Comment on above: Order Comment: Reaso n for Exam Urinary frequency;Medication management;Anxiety;Microscopic Reason for Exam Microscopic hematuria;Low iron Reason for Exam Bipolar affective disorder, currently depressed, moderate Reason for Exam Vitamin D deficiency Performed By: #### U RMACRERAT, FE and TIBC, LIPID, SHAMA, CMP, CBC, [id number], THYROID SC, LDLD ####[place] [address] [address]#### TOXASSURE, HIV SCREEN ####[facility] , Protein [Mass/Vol] 7.1 g/dL Normal 6.4-8.9 [facility] Comment on above: Order Comment: Reaso n for Exam Urinary frequency;Medication management;Anxiety;Microscopic Reason for Exam Microscopic hematuria;Low iron Reason for Exam Bipolar affective disorder, currently depressed, moderate Reason for Exam Vitamin D deficiency Performed By: #### U RMACRERAT, FE and TIBC, LIPID, SHAMA, CMP, CBC, [id number], THYROID SC, LDLD ####[place] [address] [place]#### TOXASSURE, HIV SCREEN ####[facility] , Sodium [Moles/Vol] 139 mmol/L Normal 136-145 [facility] Comment on above: Order Comment: Reaso n for Exam Urinary frequency;Medication management;Anxiety;Microscopic Reason for Exam Microscopic hematuria;Low iron Reason for Exam Bipolar affective disorder, currently depressed, moderate Reason for Exam Vitamin D deficiency Performed By: #### U RMACRERAT, FE and TIBC, LIPID, SHAMA, CMP, CBC, [id number], THYROID SC, LDLD ####[facility]#### TOXASSURE, HIV SCREEN ####[facility] , Urea nitrogen [Mass/Vol] 14 mg/dL Normal 7-25 [facility] Comment on above: Order Comment: Reaso n for Exam Urinary frequency;Medication management;Anxiety;Microscopic Reason for Exam Microscopic hematuria;Low iron Reason for Exam Bipolar affective disorder, currently depressed, moderate Reason for Exam Vitamin D deficiency Performed By: #### U RMACRERAT, FE and TIBC, LIPID, SHAMA, CMP, CBC, [id number], THYROID SC, LDLD ####[facility]#### TOXASSURE, HIV SCREEN ####[facility] , Ferritinon 06-09-2023 Ferritin [Mass/Vol] 78.9 ng/mL Normal 11.0-306.8 [facility] Comment on above: Order Comment: Reaso n for Exam Primary hypertension Performed By: #### F SH, T3F, CBC, TSH3, [id number], CMP, SHAMA, FE and TIBC, LIPID, CUU, [id number], UA #### [address] #### ESTRADIOL, LH #### [facility] , HIV 1/O/2 Antigen/Antibodyon 06-09-2023 HIV Screen 4th Generation Non-Reactive Normal Non Reactive [facility] Comment on above: Order Comment: Reaso n for Exam Primary hypertension Result Comment: HIV Negative HIV-1/HIV-2 antibodies and HIV-1 p24 antigen were NOT detected. There is no laboratory evidence of HIV infection. Performed at: [address] [id number] Integrated Marketing Intern: Kurtis Gallegos PhD, Phone: [phone] PERFORMED BY: [place] [address] PATHOLOGIST PERSONAL INVESTMENT ADVISER PALOMO WESLEY M.D. Performed By: #### F SH, T3F, CBC, TSH3, [id number], CMP, SHAMA, FE and TIBC, LIPID, CUU, [id number], UA #### [place] [address] [place] #### ESTRADIOL, LH #### [facility] , Iron and TIBC Profileon 03-0 6-2023 % Iron Saturation 22.1 % Normal 20-50 [facility] Comment on above: Order Comment: Reaso n for Exam Primary hypertension Performed By: #### F SH, T3F, CBC, TSH3, [id number], CMP, SHAMA, FE and TIBC, LIPID, CUU, [id number], UA #### [place] [address] [place] #### ESTRADIOL, LH #### [facility] , Iron [Mass/Vol] 93 ug/dL Normal 50-212 [facility] Comment on above: Order Comment: Reaso n for Exam Primary hypertension Performed By: #### F SH, T3F, CBC, TSH3, [id number], CMP, SHAMA, FE and TIBC, LIPID, CUU, [id number], UA #### [place] [address] [place] #### ESTRADIOL, LH #### [facility] , Total Iron Binding Capacity 420 ug/dL Normal 255-450 [facility] Comment on above: Order Comment: Reaso n for Exam Primary hypertension Performed By: #### F SH, T3F, CBC, TSH3, [id number], CMP, SHAMA, FE and TIBC, LIPID, CUU, [id number], UA #### [place] [address] [place] #### ESTRADIOL, LH #### [facility] , Transferrin [Mass/Vol] 300 mg/dL Normal 203-362 [facility] Comment on above: Order Comment: Reaso n for Exam Primary hypertension Performed By: #### F SH, T3F, CBC, TSH3, [id number], CMP, SHAMA, FE and TIBC, LIPID, CUU, [id number], UA #### [facility] [address] [place] [address] [place] #### ESTRADIOL, LH #### [facility] , LDL Cholesterol Measuredon 0 06-09-2023 LDL Cholesterol Measured 122 mg/dL High 0-100 [facility] Comment on above: Order Comment: Reaso n for Exam Primary hypertension Result Comment: LDL ATP III CLASSIFICATION LDL less than 100 mg/dL Optimal LDL 100-129 mg/dL Near or above optimal LDL 130-159 mg/dL Borderline high LDL 160-189 mg/dL High LDL greater than 189 mg/dL Very high Performed By: #### F SH, T3F, CBC, TSH3, [id number], CMP, SHAMA, FE and TIBC, LIPID, CUU, [id number], UA #### [facility] [address] [place] [address] [place] #### ESTRADIOL, LH #### [facility] , Lipid Panelon 06-09-2023 Cholesterol [Mass/Vol] 216 mg/dL High 140-200 [facility] Comment on above: Order Comment: Reaso n for Exam Primary hypertension Result Comment: Chol less than 200 mg/dl low risk Chol 201-239 mg/dl borderline risk Chol 240 mg/dl and greater high risk Performed By: #### F SH, T3F, CBC, TSH3, [id number], CMP, SHAMA, FE and TIBC, LIPID, CUU, [id number], UA #### [facility] [address] [place] [address] [place] #### ESTRADIOL, LH #### [facility] , Cholesterol in HDL [Mass/Vol] 69 mg/dL Normal 23-92 [facility] Comment on above: Order Comment: Reaso n for Exam Primary hypertension Result Comment: HDL CHOL ATP-III CLASSIFICATION Cardiovascular Risk HDL > or equal to 60 mg/dL LOW HDL < 40 mg/dL HIGH Performed By: #### F SH, T3F, CBC, TSH3, [id number], CMP, SHAMA, FE and TIBC, LIPID, CUU, [id number], UA #### [facility] [address] [place] [address] [place] #### ESTRADIOL, LH #### [facility] , Cholesterol.total/Chol esterol in HDL [Mass ratio] 3.1 {ratio} Normal <5.0 [facility] Comment on above: Order Comment: Reaso n for Exam Primary hypertension Performed By: #### F SH, T3F, CBC, TSH3, [id number], CMP, SHAMA, FE and TIBC, LIPID, CUU, [id number], UA #### [facility] [address] [place] [address] [place] #### ESTRADIOL, LH #### [facility] , LDL Cholesterol,Calculated Not performed Normal 0-100 [facility] Comment on above: Order Comment: Reaso n for Exam Primary hypertension Performed By: #### F SH, T3F, CBC, TSH3, [id number], CMP, SHAMA, FE and TIBC, LIPID, CUU, [id number], UA #### [facility] [address] [place] [address] [place] #### ESTRADIOL, LH #### [facility] , Triglyceride w/Reflex 443 mg/dL High 0-149 [facility] Comment on above: [...] By: #### F SH, T3F, CBC, TSH3, [id number], CMP, SHAMA, FE and TIBC, LIPID, CUU, [id number], UA #### [facility] [address] [place] [address] [place] #### ESTRADIOL, LH #### [facility] , VLDL CHOLESTEROL 88 mg/dL Normal [facility] Comment on above: Order Comment: Reaso n for Exam Primary hypertension Performed By: #### F SH, T3F, CBC, TSH3, [id number], CMP, SHAMA, FE and TIBC, LIPID, CUU, [id number], UA #### [facility] [address] #### ESTRADIOL, LH #### [facility] , MicroAlb Creat Ratio,Uon Albumin DL <= 20 mg/L (U) [Mass/Vol] 2.1 mg/dL High 0.0-1.8 [facility] Comment on above: Order Comment: Reaso n for Exam Urinary frequency;Microscopic hematuria Performed By: #### U RMACRERAT, FE and TIBC, LIPID, SHAMA, CMP, CBC, [id number], THYROID SC, LDLD ####[facility]#### TOXASSURE, HIV SCREEN ####[facility] , Creatinine, Urine (Random) 66.0 mg/dL High 11.0-20.0 [facility] Comment on above: Order Comment: Reaso n for Exam Urinary frequency;Microscopic hematuria Performed By: #### U RMACRERAT, FE and TIBC, LIPID, SHAMA, CMP, CBC, [id number], THYROID SC, LDLD ####[facility] Vhk[address]#### TOXASSURE, HIV SCREEN ####[facility] , Microalbumin/Creatinin e Ratio 31.0 mg/g High 0.0-30.0 [facility] Comment on above: Order Comment: Reaso n for Exam Urinary frequency;Microscopic hematuria Result Comment: 30-3 00 mg/g indicates an increased risk for diabetic nephropathy. Greater than 300 mg/g is consistent with clinical nephropathy. (Am. J. Kidney Disease 1995, 25:107) PERFORMED BY: [facility] [address] [place] [address] PATHOLOGIST PERSONAL INVESTMENT ADVISER PALOMO WESLEY M.D. Performed By: #### U RMACRERAT, FE and TIBC, LIPID, SHAMA, CMP, CBC, [id number], THYROID SC, LDLD ####[facility] Nol[address]#### TOXASSURE, HIV SCREEN ####[facility] , THYROID SCREENon 06-09-2023 Free T4 [Mass/Vol] 0.68 ng/dL Normal 0.61-1.12 [facility] Comment on above: Order Comment: Reaso n for Exam Primary hypertension Performed By: #### F SH, T3F, CBC, TSH3, [id number], CMP, SHAMA, FE and TIBC, LIPID, CUU, [id number], UA #### [facility] [address] [place] [address] [place] #### ESTRADIOL, LH #### [facility] , TSH Qn 2.09 m[IU]/L Normal 0.45-5.33 [facility] Comment on above: Order Comment: Reaso n for Exam Primary hypertension Performed By: #### F SH, T3F, CBC, TSH3, [id number], CMP, SHAMA, FE and TIBC, LIPID, CUU, [id number], UA #### [facility] [address] [place] [address] [place] #### ESTRADIOL, LH #### [facility] , Toxassure, Urineon Toxassure, Urine Summary FINAL Normal . [facility] Comment on above: [...] test is not intended to distinguish between rgqpf-4-uqtxfnfxfoocuseywhgl, the predominant form of THC in most herbal or marijuana-based products, and bplzc-6-ylrhhgrixpnffuzzsdai. Gabapentin PRESENT Cyclobenzaprine PRESENT Desmethylcyclobenzaprine PRESENT Desmethylcyclobenzaprine is an expected metabolite of cyclobenzaprine. Naproxen PRESENT ===== Test Result Flag Units Ref Range Creatinine 63 mg/dL >=20 ===== Declared Medications: Medication list was not provided. ===== For clinical consultation, please call . ===== Performed at: [facility] [address] [place] [id number] Integrated Marketing Intern: Ana Munoz [facility], Phone: [phone] PERFORMED BY: [place] [address] PATHOLOGIST PERSONAL INVESTMENT ADVISER PALOMO WESLEY M.D. Performed By: #### F SH, T3F, CBC, TSH3, [id number], CMP, SHAMA, FE and TIBC, LIPID, CUU, [id number], UA #### [address] #### ESTRADIOL, LH #### [facility] , Vitamin D 25 Hydroxy Totalon 06-09-2023 Vitamin D 25 Hydroxy Total 19.8 ng/mL Low 30-100 [facility] Comment on above: Order Comment: Reaso n for Exam Primary hypertension Result Comment: IDRIS MIN D STATUS 25(OH)VITAMIN D RANGE (ng/mL) Deficient <20 Insufficient 20 to <30 Sufficient 30 to 100 Reference: Baron MF,Suze NC, Abdiel MAXWELL, et al. Evaluation,treatment, and prevention of vitamin D deficiency; an Endocrine Society clinical practice guideline. JCEM. 2010; 96(7):1911-30. PERFORMED BY: [place] [address] PATHOLOGIST PERSONAL INVESTMENT ADVISER PALOMO WESLEY M.D. Performed By: #### F SH, T3F, CBC, TSH3, [id number], CMP, SHAMA, FE and TIBC, LIPID, CUU, [id number], UA #### [facility] [address] [place] [id number] [facility] #### ESTRADIOL, LH #### [facility] , Formson 04-26-2023 Forms [id number]. 00TIFF Normal [facility] NM Myocardial Spect Rest/Str ess 1 [...] Stress Dose (mCi Tc99M Cardiolite): 28.9 Normal [facility] Stress EKG Tracingson 2023 Stress EKG Tracings [id number]. 00TIFF Normal [facility] Consent for Treatmenton 04-05 Consent for Treatment [id number] 0TIFF Normal [facility] US renal BIon 04-01-2023 US renal BI [facility] Main [address] [address] Ultrasound Report Signed Patient: Isela Craig MR#: [id number] : 1970 Acct:[id number] Age/Sex: 52 / F ADM Date: 04/01/23 Loc: UL Room: Type: [facility] CLI Attending Dr: Jes Cruz [employer] Ordering Provider: Jes Cruz Date of Service: 04/01/23 US/US renal BI: R31.9 ([id number]) US/US bladder: R31.9 Copies to: Jes Cruz [...] Johns Jr., D.OShyanne04/01/2023 3:16 PM Dictation Location: [place] [address] Tech: Chloe Delcid Transcribed By: FLORES 04/01/23 1516 Dictated By: Freddy Johns Jr, DO 04/01/23 1512 Signed By: 04/01/23 1516 Normal [facility] XR KUBon 04-01-2023 XR KUB [address] [address] XRay Report Signed Patient: Isela Craig MR#: [id number] : 1970 Acct:[id number] Age/Sex: 52 / F ADM Date: 04/01/23 Loc: UL Room: Type: [facility] CLI Attending Dr: Jes Cruz [employer] Copies to: Jes Cruz Ordering Provider: Jes [...] DEFINITE RADIOPAQUE STONES. Impression dictated by: Shae Guzamn M.D.04/01/2023 3:38 PM Dictation Location: [place] [address] Transcribed By: [facility] 04/01/23 1538 Dictated By: Shae Guzman MD 04/01/23 1536 Signed By: 04/01/23 1538 Normal [facility] COVID Quick Testingon 2022 Result Negative [facility] Other Quick Strepon 12-15-2022 S. pyogenes Org specific cx Ql (Throat) Negative [facility] Other Quick Strep [facility] Other COVID + FLU Quick Testingon 10-14-2022 SARS-CoV-2 (COVID-19) RNA AISSATOU+probe Ql (Unsp spec) Negative [facility] Other COVID + FLU Quick Testing Negative [facility] Other Quick Strepon 10-14-2022 S. pyogenes Org specific cx Ql (Throat) Negative [facility] Other Quick Strep [facility] Other Office Visit (Cardiology)on 06-24-2022 Follow-up visit [...] contact the office if new symptoms arise. [employer] 6 weeks Chief Complaint Add on d/t [...] department evaluation. Last week she presented to [facility] due to chest pain and dizziness. Initial [...] and fluttering . 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 Due to blood pressure and palpitations [...] Recorded: 24Jun2022 09:32AM Heart Rate88, R Radial Wkihqjjo095, RUE, Si (more content not included)... Normal [facility] Tobacco Screening.on 023 Adult depression screening assessment No [facility] 250 DO Work Phone: Tobacco use status [facility] a) Yes [facility] 250 DO Work Phone: Tobacco Screening. Yes [facility] 250 DO Work Phone: Alanine aminotransferase [En [...] activity/Vol] 11 U/L 13-39 [facility] Basophils Auto (Bld) [#/Vol] Ordered By: Jes Cruz on 06-19-2022 Basophils (Bld) [#/Vol] 0.1 10*3/uL 0.0-0.2 [facility] Basophils/100 WBC Auto (Bld) Ordered By: Jes Cruz on 06-19-2022 Basophils/100 WBC (Bld) 1.2 % . [facility] Bilirubin.total [Mass/volume ] in Serum or [...] on 06-19-2022 Calcium [Mass/Vol] 9.1 mg/dL 8.6-10.3 [facility] Carbon dioxide, total [Moles /volume] in Serum or PlasmaOrdered By: Jes Cruz on 06-19-2022 CO2 [Moles/Vol] 24.4 mmol/L 21.0-31.0 [facility] Chloride [Moles/volume] in S shanna or PlasmaOrdered By: Jes Cruz on 06-19-2022 Chloride [Moles/Vol] 108 mmol/L 98-107 [facility] Cholesterol [Mass/volume] in Serum or PlasmaOrdered By: Jes Cruz on 06-19-2022 Cholesterol [Mass/Vol] 190 mg/dL 140-200 [facility] Comment on above: Chol less than [...] VLDL [Mass/Vol] 48 mg/dL [facility] Creatine kinase [Enzymatic a ctivity/volume] in Serum or PlasmaOrdered By: Jes Cruz on 06-19-2022 CK [Catalytic activity/Vol] 35 U/L 30-223 [facility] Creatine kinase.MB [Mass/vol ume] in Serum or PlasmaOrdered By: Jes Cruz on 06-19-2022 CK.MB [Mass/Vol] 2.3 ng/mL 0.6-6.3 [facility] Creatinine [Mass/volume] in Serum or PlasmaOrdered By: Jes Cruz on 06-19-2022 Creatinine [Mass/Vol] 0.79 mg/dL 0.60-1.20 [facility] Eosinophils Auto (Bld) [#/Vo l]Ordered By: [...] 06-19-2022 Globulin (S) [Mass/Vol] 2.3 g/dL [facility] Glucose [Mass/volume] in Ser um or PlasmaOrdered By: Jes Cruz on 06-19-2022 Glucose [Mass/Vol] 94 mg/dL 74-109 [facility] Comment on above: ADA recommended refe rence [...] [Mass/Vol] 13.1 g/dL 11.8-15.4 [facility] Laboratory - Chemistry and C hemistry - challengeOrdered By: Jes Cruz on 06-19-2022 GFR/1.73 sq M.predicted MDRD (S/P/Bld) [Vol rate/Area] mL/min/{1.73_m2} [facility] Leukocytes [#/volume] correc ricardo for nucleated erythrocytes in Blood by Automated counOrdered By: Jes Cruz on 06-19-2022 WBC corrected for nucl RBC Auto (Bld) [#/Vol] 8.2 10*3/uL 3.8-11.6 [facility] Lymphocytes Auto (Bld) [#/Vo l]Ordered By: [...] 06-19-2022 MCHC (RBC) [Mass/Vol] 33.4 g/dL 32.0-35.0 [facility] MCV Auto (RBC) [Entitic vol] Ordered By: Jes Cruz on 06-19-2022 MCV (RBC) [Entitic vol] 99.5 fL 80-100 [facility] Monocytes Auto (Bld) [#/Vol] Ordered By: Jes Cruz on 06-19-2022 Monocytes (Bld) [#/Vol] 1.0 10*3/uL 0.0-0.8 [facility] Monocytes/100 WBC Auto (Bld) Ordered By: Jse Cruz on 06-19-2022 Monocytes/100 WBC (Bld) 11.6 % . [facility] Natriuretic peptide B [Mass/ Vol]Ordered By: [...] [facility] No Panel InformationOrdered By: Jes Cruz [...] on 06-19-2022 Potassium [Moles/Vol] 4.3 mmol/L 3.5-5.1 [facility] Protein [Mass/volume] in Ser um or PlasmaOrdered By: Jes Cruz on 06-19-2022 Protein [Mass/Vol] 6.3 g/dL 6.4-8.9 [facility] RBC Auto (Bld) [#/Vol]Ordere d By: Jes Cruz on 06-19-2022 RBC (Bld) [#/Vol] 3.95 10*6/uL 3.60-5.00 [facility] Serum or plasma albumin/glob ulin mass ratioOrdered By: Jes Cruz on 06-19-2022 Albumin/Globulin [Mass ratio] 1.7 {ratio} [facility] Serum or plasma anion gap de terminationOrdered By: Jes Cruz on 06-19-2022 Anion gap [Moles/Vol] 10.9 mmol/L 6.0-15.0 [facility] Serum or plasma creatine kin ase [...] on 06-19-2022 Sodium [Moles/Vol] 139 mmol/L 136-145 [facility] Thyrotropin [Units/volume] i n Serum or PlasmaOrdered By: Jes Cruz on 06-19-2022 TSH Qn 2.33 m[IU]/L 0.45-5.33 [facility] Thyroxine (T4) free [Mass/vo lume] in Serum or PlasmaOrdered By: Jes Cruz on 06-19-2022 Free T4 [Mass/Vol] 0.63 ng/dL 0.61-1.12 [facility] Triglyceride [Mass/volume] i n Serum or PlasmaOrdered By: Jes Cruz on 06-19-2022 Triglyceride [Mass/Vol] 241 mg/dL 0-149 [facility] Comment on above: TRIG ATP III [...] 06-19-2022 WBC (Bld) [#/Vol] 8.2 10*3/uL 3.8-11.6 [facility] CARDIAC BJORN ADMITon 023 CK [Catalytic activity/Vol] 54 U/L Normal 26-192 [facility] Comment on above: Performed By: #### C MADM, CMP #### [facility] [address] [address] [address] Howard Guthrie CK.MB [Mass/Vol] 1.70 ng/mL Normal <=3.60 [facility] Comment on above: Performed By: #### C MADM, CMP #### [facility] [address] [address] [address] Howard Guthrie HSTROP <4.0 Normal 4.0-51.3 [facility] Comment on above: Result Comment: CUT- OFF POINTS HAVE BEEN ESTABLISHED BASED ON THE FOURTH UNIVERSAL DEFINITIONS OF MYOCARDIAL INFARCTION. THE UPPER REFERENCE LIMIT (URL) OF TROPONIN, DEFINED THE 99TH PERCENTILE OF cTnI DISTRIBUTION IN A REFERENCE POPULATION, HAS BEEN CONFIRMED THE DECISION THRESHOLD FOR [place] DIAGNOSIS. Performed By: #### C MADM, CMP #### [facility] [address] [address] [address] Howard Guthrie NYA 23 ng/mL Normal 9-82 [facility] Comment on above: Performed By: #### C MADM, CMP #### [facility] [address] [address] [address] Howard Guthrie CBC AUTO DIFFon 06-17-2022 BASO # 0.1 103/ul Normal 0.0-0.1 [facility] Comment on above: Performed By: #### C BC #### [facility] [address] [address] [address] Howard Guthrie Basophils/100 WBC (Bld) 1.0 % Normal 0.2-2.0 [facility] Comment on above: Performed By: #### C BC #### [facility] [address] [place] [address] Dr. Howard Guthrie EO # 0.2 103/ul Normal 0.0-0.7 [facility] Comment on above: Performed By: #### C BC #### [facility] [address] [address] [address] Howard Guthrie Eosinophils/100 WBC (Bld) 2.9 % Normal 0.9-7.0 [facility] Comment on above: Performed By: #### C BC #### [facility] [address] [address] [address] Howard Guthrie Erythrocyte distribution width (RBC) [Ratio] 12.7 % Normal 11.0-15.0 [facility] Comment on above: Performed By: #### C BC #### [facility] [address] [place] [address] Dr. Howard Guthrie Hematocrit (Bld) [Volume fraction] 42.5 % Normal 36.0-48.0 [facility] Comment on above: Performed By: #### C BC #### [facility] [address] [place] [address] Dr. Howard Guthrie Hemoglobin (Bld) [Mass/Vol] 14.7 g/dL Normal 12.0-16.0 [facility] Comment on above: Performed By: #### C BC #### [facility] [address] [place] [address] Dr. Howard Guthrie IG # 0.02 10e3/ul Normal 0.00-0.03 [facility] Comment on above: Performed By: #### C BC #### [facility] [address] [place] [address] Dr. Howard Guthrie IG % 0.3 % Normal 0.0-0.5 [facility] Comment on above: Performed By: #### C BC #### [facility] [address] [place] [address] Dr. Howard Guthrie LYMPH # 2.1 103/ul Normal 1.2-3.8 [facility] Comment on above: Performed By: #### C BC #### [facility] [address] [place] [address] Dr. Howard Guthrie Lymphocytes/100 WBC (Bld) 28.4 % Normal 20.5-60.0 [facility] Comment on above: Performed By: #### C BC #### [facility] [address] [place] [address] Dr. Howard Guthrie MANUAL DIFF REQ NO Normal [facility] Comment on above: Performed By: #### C BC #### [facility] [address] [place] [address] Dr. Howard Guthrie MCH (RBC) [Entitic mass] 33.1 pg Normal 26.7-34.0 [facility] Comment on above: Performed By: #### C BC #### [facility] [address] [place] [address] Dr. Howard Guthrie MCHC (RBC) [Mass/Vol] 34.6 g/dL Normal 29.9-35.2 [facility] Comment on above: Performed By: #### C BC #### [facility] [address] [place] [address] Dr. Howard Guthrie MCV (RBC) [Entitic vol] 95.7 fL Normal 81.0-99.0 [facility] Comment on above: Performed By: #### C BC #### [facility] [address] [address] [address] Howard Guthrie MONO # 1.0 103/ul Critically high 0.3-0.8 [facility] Comment on above: Performed By: #### C BC #### [facility] [address] [address] [address] Howard Guthrie Monocytes/100 WBC (Bld) 13.1 % Critically high 1.7-12.0 [facility] Comment on above: Performed By: #### C BC #### [facility] [address] [place] [address] Dr. Howard Guthrie NEUT # 4.0 103/ul Normal 1.4-6.5 [facility] Comment on above: Performed By: #### C BC #### [facility] [address] [place] [address] Dr. Howard Guthrie Neutrophils/100 WBC (Bld) 54.3 % Normal 43.0-75.0 [facility] Comment on above: Performed By: #### C BC #### [facility] [address] [place] [address] Dr. Howard Guthrie Platelet mean volume (Bld) [Entitic vol] 10.0 fL Normal 9.5-13.5 [facility] Comment on above: Performed By: #### C BC #### [facility] [address] [place] [address] Dr. Howard Guthrie PLT 343 103/ul Normal 150-450 [facility] Comment on above: Performed By: #### C BC #### [facility] [address] [place] [address] Dr. Howard Guthrie RBC 4.44 106/ul Normal 4.20-5.40 [facility] Comment on above: Performed By: #### C BC #### [facility] [address] [place] [address] Dr. Howard Guthrie WBC 7.4 103/ul Normal 4.0-11.0 [facility] Comment on above: Performed By: #### C BC #### [facility] [address] [place] [address] Dr. Howard Guthrie D-DIMERon 06-17-2022 D-DIMER 0.43 mg/L FEU Normal <=0.59 [facility] Comment on above: Performed By: #### D DIM #### [facility] [address] [address] [address] Howard Guthrie D-DIMER COMMENTS SEE BELOW Normal [facility] Comment on above: Result Comment: Incr [...] By: #### D DIM #### [facility] [address] [address] [address] Howard Guthrie ER URINE PROFILEon 3 Bilirubin Ql (U) Negative Normal NEGATIVE [facility] Comment on above: Performed By: #### U MICRO, ERUR #### [facility] [address] [place] [address] Dr. Howard Guthrie Clarity (U) CLEAR Normal CLEAR [facility] Comment on above: Performed By: #### U MICRO, ERUR #### [facility] [address] [place] [address] Dr. Howard Guthrie Color (U) LT. YELLOW Normal YELLOW [facility] Comment on above: Performed By: #### U MICRO, ERUR #### [facility] [address] [place] [address] Dr. Howard Guthrie ERUAHD A micrscopic examination will be performed if indicated. Normal [facility] Comment on above: Performed By: #### U MICRO, ERUR #### [facility] [address] [place] [address] Dr. Howard Guthrie Glucose Ql (U) Negative Normal NEGATIVE [facility] Comment on above: Performed By: #### U MICRO, ERUR #### [facility] [address] [address] [address] Howard Guthrie Hemoglobin Ql (U) SMALL Abnormal NEGATIVE [facility] Comment on above: Performed By: #### U MICRO, ERUR #### [facility] [address] [place] [address] Dr. Howard Guthrie Ketones Ql (U) Negative Normal NEGATIVE [facility] Comment on above: Performed By: #### U MICRO, ERUR #### [facility] [address] [place] [address] Dr. Howard Guthrie LEUKOCYTES Negative Normal NEGATIVE [facility] Comment on above: Performed By: #### U MICRO, ERUR #### [facility] [address] [place] [address] Dr. Howard Guthrie Nitrite Ql (U) Negative Normal NEGATIVE [facility] Comment on above: Performed By: #### U MICRO, ERUR #### [facility] [address] [place] [address] Dr. Howard Guthrie pH (U) 7.0 [pH] Normal 5-9 [facility] Comment on above: Performed By: #### U MICRO, ERUR #### [facility] [address] [place] [address] Dr. Howard Guthrie SPEC GRAVITY 1.015 Normal 1.005-<=1.0 25 [facility] Comment on above: Performed By: #### U MICRO, ERUR #### [facility] [address] [place] [address] Dr. Howard Guthrie UA PROTEIN Negative Normal NEGATIVE/ TRACE [facility] Comment on above: Performed By: #### U MICRO, ERUR #### [facility] [address] [place] [address] Dr. Howard Guthrie UR MICRO IND INDICATED Normal [facility] Comment on above: Performed By: #### U MICRO, ERUR #### [facility] [address] [place] [address] Dr. Howard Guthrie Urobilinogen Qn (U) 0.2 {Abdiaziz'U}/dL Normal 0.2 - 1. 0 [facility] Comment on above: Performed By: #### U MICRO, ERUR #### [facility] [address] [address] [address] Howard Guthrie PROF 14(COMP METB)on 023 Albumin [Mass/Vol] 3.8 g/dL Normal 3.4-5.0 [facility] Comment on above: Performed By: #### C MADM, CMP #### [facility] [address] [address] [address] Howard Guthrie Albumin/Globulin [Mass ratio] 1.1 {ratio} Normal [facility] Comment on above: Performed By: #### C MADM, CMP #### [facility] [address] [place] [address] Dr. Howard Guthrie ALP [Catalytic activity/Vol] 96 U/L Normal 46-116 [facility] Comment on above: Performed By: #### C MADM, CMP #### [facility] [address] [address] [address] Howard Guthrie ALT [Catalytic activity/Vol] 19 U/L Normal 14-59 [facility] Comment on above: Performed By: #### C MADM, CMP #### [facility] [address] [address] [address] Howard Guthrie Anion gap [Moles/Vol] 11.2 mmol/L Normal [facility] Comment on above: Performed By: #### C MADM, CMP #### [facility] [address] [address] [address] Howard Guthrie AST [Catalytic activity/Vol] 19 U/L Normal 15-37 [facility] Comment on above: Performed By: #### C MADM, CMP #### [facility] [address] [address] [address] Howard Guthrie Bilirubin [Mass/Vol] 0.5 mg/dL Normal 0.2-1.0 [facility] Comment on above: Performed By: #### C MADM, CMP #### [facility] [address] [address] [address] Howard Guthrie Calcium [Mass/Vol] 8.8 mg/dL Normal 8.5-10.1 [facility] Comment on above: Performed By: #### C MICHAELM, CMP #### [facility] [address] [place] [address] Dr. Howard Guthrie Chloride [Moles/Vol] 104 mmol/L Normal 98-107 [facility] Comment on above: Performed By: #### C MICHAELM, CMP #### [facility] [address] [place] [address] Dr. Howard Guthrie CO2 [Moles/Vol] 24.1 mmol/L Normal 21.0-32.0 [facility] Comment on above: Performed By: #### C MICHAELM, CMP #### [facility] [address] [place] [address] Dr. Howard Guthrie Creatinine [Mass/Vol] 0.73 mg/dL Normal 0.55-1.02 [facility] Comment on above: Performed By: #### C MICHAELM, CMP #### [facility] [address] [place] [address] Dr. Howard Guthrie EGFR-AF TRISTANIAN >60 Normal >=60 [facility] Comment on above: Performed By: #### C JORDAN, CMP #### [facility] [address] [place] [address] Dr. Howard Guthrie EGFR-NON AF TRISTANIAN >60 Normal >=60 [facility] Comment on above: Performed By: #### C MICHAELM, CMP #### [facility] [address] [place] [address] Dr. Howard Guthrie Globulin (S) [Mass/Vol] 3.6 g/dL Normal [facility] Comment on above: Performed By: #### C MICHAELM, CMP #### [facility] [address] [place] [address] Dr. Howard Guthrie Glucose [Mass/Vol] 112 mg/dL Critically high 74-106 [facility] Comment on above: Performed By: #### C MICHAELM, CMP #### [facility] [address] [place] [address] Dr. Howard Guthrie Potassium [Moles/Vol] 3.3 mmol/L Critically low 3.5-5.1 [facility] Comment on above: Performed By: #### C JORDAN, CMP #### [facility] [address] [place] [address] Dr. Howard Guthrie Protein [Mass/Vol] 7.4 g/dL Normal 6.4-8.2 [facility] Comment on above: Performed By: #### C JORDAN, CMP #### [facility] [address] [place] [address] Dr. Howard Guthrie Sodium [Moles/Vol] 136 mmol/L Normal 136-145 [facility] Comment on above: Performed By: #### C JORDAN, CMP #### [facility] [address] [place] [address] Dr. Howard Guthrie Urea nitrogen [Mass/Vol] 6.0 mg/dL Critically low 7.0-18.0 [facility] Comment on above: Performed By: #### C JORDAN, CMP #### [facility] [address] [place] [address] Dr. Howard Guthrie Urea nitrogen/Creatinine [Mass ratio] 8.2 mg/mg Normal [facility] Comment on above: Performed By: #### C JORDAN, CMP #### [facility] [address] [place] [address] Dr. Howard Guthrie TROPONIN, HIGH SENSITIVITYon 06-17-2022 HSTROP 4.6 pg/mL Normal 4.0-51.3 [facility] Comment on above: Result Comment: CUT- OFF POINTS HAVE BEEN ESTABLISHED BASED ON THE FOURTH UNIVERSAL DEFINITIONS OF MYOCARDIAL INFARCTION. THE UPPER REFERENCE LIMIT (URL) OF TROPONIN, DEFINED THE 99TH PERCENTILE OF cTnI DISTRIBUTION IN A REFERENCE POPULATION, HAS BEEN CONFIRMED THE DECISION THRESHOLD FOR [place] DIAGNOSIS. Performed By: #### H STROPN #### [facility] [address] [place] [address] Dr. Howard Guthrie URINE MICROSCOPIC ONLYon BACTERIA TRACE Abnormal NONE SEEN The [facility] Comment on above: Performed By: #### U MICRO, ERUR #### [facility] [address] [place] [address] Dr. Howard Guthrie Bacteria identified Cx Nom (U) NOT INDICATED Normal [facility] Comment on above: Performed By: #### U MICRO, ERUR #### [facility] [address] [place] [address] Dr. Howard Guthrie CAST NONE SEEN Normal NONE SEEN [facility] Comment on above: Performed By: #### U MICRO, ERUR #### [facility] [address] [place] [address] Dr. Howard Guthrie Crystals LM Nom (Urine sed) NONE SEEN Normal NONE SEEN [facility] Comment on above: Performed By: #### U MICRO, ERUR #### [facility] [address] [place] [address] Dr. Howard Guthrie Epithelial cells LM Ql (Urine sed) FEW Abnormal NONE SEEN /RARE [facility] Comment on above: Performed By: #### U MICRO, ERUR #### [facility] [address] [place] [address] Dr. Howard Guthrie MUCOUS TRACE Abnormal NONE SEEN [facility] Comment on above: Performed By: #### U MICRO, ERUR #### [facility] [address] [place] [address] Dr. Howard Guthrie RBC 2-5 Abnormal 0-2 [facility] Comment on above: Performed By: #### U MICRO, ERUR #### [facility] [address] [place] [address] Dr. Howard Guthrie WBC NONE SEEN Normal NONE SEEN [facility] Comment on above: Performed By: #### U MICRO, ERUR #### [facility] [address] [place] [address] Dr. Howard Guthrie XR CHEST 1 Von [...] Date: 2022-06-17 12:26 Normal [facility] Tobacco Screening.on 022 Adult depression screening assessment No [facility] [address] DO Work Phone: Tobacco use status [facility] a) Yes [facility] 250 DO Work Phone: Tobacco Screening. Yes [facility] [address] DO Work Phone: Vital Signs Date Time Vital Sign Value Performing Clinician Faci henry 02-16-2024 09:35-0500 Blood Pressure Location Roosevelt Sotelo [facility] 02-16-2024 09:35-0500 Diastolic blood pressure 80 mm[Hg] Roosevelt Sotelo [facility] 02-16-2024 09:35-0500 Heart rate 76 /min Roosevelt Sotelo [facility] 02-16-2024 09:35-0500 Respiratory rate 18 /min Roosevelt Sotelo [facility] 02-16-2024 09:35-0500 SaO2% (BldA) [Mass fraction] 100 % Roosevelt Sotelo [facility] 02-16-2024 09:35-0500 Systolic blood pressure 130 mm[Hg] Roosevelt Sotelo [facility] 09-13-2023 13:06-0400 Blood Pressure Location Roosevelt Sotelo [facility] 09-13-2023 13:06-0400 Diastolic blood pressure 85 mm[Hg] Roosevelt Sotelo [facility] 09-13-2023 13:06-0400 Heart rate 90 /min Roosevelt Sotelo [facility] 09-13-2023 13:06-0400 SaO2% (BldA) [Mass fraction] 99 % Roosevelt Sotelo [facility] 09-13-2023 13:06-0400 Systolic blood pressure 125 mm[Hg] Roosevelt Sotelo [facility] 08-10-2023 09:19-0400 Blood Pressure Location JES ROLLE [facility] 08-10-2023 09:19-0400 Body temperature 98.24 [degF] JES ELSA [facility] 08-10-2023 09:19-0400 Diastolic blood pressure 78 mm[Hg] JES ELSA [facility] 08-10-2023 09:19-0400 Heart rate 80 /min JES ELSA [facility] 08-10-2023 09:19-0400 Respiratory rate 19 /min JES ELSA [facility] 08-10-2023 09:19-0400 Systolic blood pressure 136 mm[Hg] JES ELSA [facility] 03-22-2023 13:16-0500 Blood Pressure Location Ramone Garcia [facility] 03-22-2023 13:16-0500 Diastolic blood pressure 85 mm[Hg] Ramone Garcia [facility] 03-22-2023 13:16-0500 Heart rate 90 /min Ramone Garcia [facility] 03-22-2023 13:16-0500 SaO2% (BldA) [Mass fraction] 99 % Ramone Garcia [facility] 03-22-2023 13:16-0500 Systolic blood pressure 126 mm[Hg] Ramone Garcia [facility] 12-15-2022 13:20-0400 Body height 165.1 cm Loretta Javier Other [employer] [facility] [id number] Other 12-15-2022 13:20-0400 Body mass index (BMI) [Ratio] 23.13 kg/m2 Loretta Javier Other [employer] Other 12-15-2022 13:20-0400 Body temperature 98.1 [degF] Loretta Javier Other [employer] Other 12-15-2022 13:20-0400 Body weight 63.05 kg Loretta Javier Other [employer] Other 12-15-2022 13:20-0400 Diastolic blood pressure 76 mm[Hg] Loretta Javier Other [employer] Other 12-15-2022 13:20-0400 Respiratory rate 18 /min Loretta Javier Other [employer] Other 12-15-2022 13:20-0400 SaO2% (BldA) [Mass fraction] 98 % Loretta Javier Other [employer] Other 12-15-2022 13:20-0400 Systolic blood pressure 128 mm[Hg] Loretta Javier Other [employer] Other 10-14-2022 11:10-0400 Body height 165.1 cm Tanya Glover Other [employer] Other 10-14-2022 11:10-0400 Body mass index (BMI) [Ratio] 23.39 kg/m2 Tanya Glover Other [employer] Other 10-14-2022 11:10-0400 Body temperature 97.8 [degF] Tanya Glover Other [employer] Other 10-14-2022 11:10-0400 Body weight 63.78 kg Tanya Glover Other [employer] Other 10-14-2022 11:10-0400 Diastolic blood pressure 85 mm[Hg] Tanya Glover Other [employer] Other 10-14-2022 11:10-0400 Respiratory rate 18 /min Tanya Glover Other [employer] Other 10-14-2022 11:10-0400 SaO2% (BldA) [Mass fraction] 99 % Tanya Glover Other [employer] Other 10-14-2022 11:10-0400 Systolic blood pressure 143 mm[Hg] Tanya Glover Other [employer] Other 06-24-2022 09:32-0400 Body height 165.1 cm No PCP None -[facility] 250 DO Work Phone: 06-24-2022 09:32-0400 Body mass index (BMI) [Ratio] 24.63 kg/m2 No PCP None -[place] [facility] 250 DO Work Phone: 06-24-2022 09:32-0400 Body surface area Derived from formula 1.74 m2 No PCP None [facility] 250 DO Work Phone: 06-24-2022 09:32-0400 Body weight 67.13 kg No PCP None [facility] 250 DO Work Phone: 06-24-2022 09:32-0400 Diastolic blood pressure 82 mm[Hg] No PCP None [facility] 250 DO Work Phone: 06-24-2022 09:32-0400 Heart rate 88 /min No PCP None [facility] 250 DO Work Phone: 06-24-2022 09:32-0400 Systolic blood pressure 124 mm[Hg] No PCP None [facility] 250 DO Work Phone: 06-02-2021 15:09-0500 Diastolic blood pressure 98 mm[Hg] No PCP None [facility] 250 DO Work Phone: 06-02-2021 15:09-0500 Systolic blood pressure 142 mm[Hg] No PCP None [facility] 250 DO Work Phone: 06-02-2021 15:03-0500 Body height 165.1 cm No PCP None [facility] 250 DO Work Phone: 06-02-2021 15:03-0500 Body mass index (BMI) [Ratio] 28.29 kg/m2 No PCP None [facility] 250 DO Work Phone: 06-02-2021 15:03-0500 Body surface area Derived from formula 1.85 m2 No PCP None [facility] 250 DO Work Phone: 06-02-2021 15:03-0500 Body weight 77.11 kg No PCP None [facility] 250 DO Work Phone: 06-02-2021 15:03-0500 Diastolic blood pressure 90 mm[Hg] No PCP None [facility] 250 DO Work Phone: 06-02-2021 15:03-0500 Heart rate 92 /min No PCP None [facility] 250 DO Work Phone: 06-02-2021 15:03-0500 Systolic blood pressure 142 mm[Hg] No PCP None [facility] 250 DO Work Phone: Encounters Encounter Date Encounter Type Care Provider Facility Start: 05-24-2024 End: 05-24-2024 ambulatory [facility] Start: 04-10-2024 End: 04-10-2024 ambulatory JES ROLLE Facility:[facility] Start: 04-10-2024 End: 04-10-2024 Patient encounter procedure JES ROLLE [facility] [place] Start: 03-27-2024 End: 03-27-2024 ambulatory Jes Cruz Facility:[facility] Start: 03-27-2024 End: 03-27-2024 Patient encounter procedure Alexandro PARTIDA [facility] [place] Start: 03-23-2024 End: 03-23-2024 ambulatory [facility] Start: 03-09-2024 End: 03-09-2024 Evaluation and management of inpatient [facility] Start: 03-09-2024 End: 03-10-2024 Evaluation and management of inpatient [facility] Start: 03-06-2024 End: 03-06-2024 ambulatory Alexandro PARTIDA Facility:[facility] Start: 03-06-2024 End: 03-06-2024 Patient encounter procedure Alexandro PARTIDA [facility] [place] Start: 02-24-2024 End: 02-24-[address] [facility] Start: 02-24-2024 End: 02-24-2024 ambulatory [facility] Start: 02-18-2024 End: 02-18-2024 ambulatory Alexandro PARTIDA Facility:[facility] Start: 02-18-2024 End: 02-18-2024 Patient encounter procedure Alexandro PARTIDA [facility] Start: 02-16-2024 End: 02-17-2024 ambulatory Alexandro Mary JAQUAN Facility:CD:[id number] Start: 02-16-2024 End: 02-16-2024 Patient encounter procedure Roosevelt Sotelo [facility] Start: 02-16-2024 End: 02-16-2024 Preprocedural examination done Roosevelt Sotelo [facility] Start: 02-04-2024 End: 02-15-2024 Pre-admission assessment Roosevelt Sotelo [facility] Start: 01-27-2024 End: 01-27-2024 ambulatory [facility] Start: 01-25-2024 End: 01-25-2024 ambulatory [facility] Start: 01-25-2024 End: 01-25-2024 ambulatory [facility] Start: 01-07-2024 End: 01-07-2024 ambulatory Roosevelt Sotelo Facility:[facility] [place] [place] Start: 01-07-2024 End: 01-07-2024 Patient encounter procedure Roosevelt Sotelo [facility] Start: 12-17-2023 End: 12-17-2023 ambulatory Alexandro PARTIDA Facility:[facility] [place] Start: 12-14-2023 End: 12-14-2023 ambulatory [facility] Start: 12-02-2023 End: 12-02-2023 Patient encounter procedure [employer]-C Jes Cruz Work Phone: [facility] [address] Work Phone: Start: 12-02-2023 End: 12-02-2023 ambulatory [employer]C Jes Cruz Work Phone: [facility] Work Phone: Start: 11-26-2023 ambulatory Alexandro PARTIDA Facili ty:[facility] [place] Start: 11-25-2023 End: 11-25-2023 ambulatory Alexandro PARTIDA Facility:CD:[id number] Start: 11-01-2023 End: 11-01-2023 Patient encounter procedure [employer]-Terrie Cruz Work Phone: [facility] [address] Work Phone: Start: 11-01-2023 End: 11-01-2023 ambulatory [employer] Jes Cruz Work Phone: [facility] Work Phone: Start: 10-14-2023 End: 10-14-2023 ambulatory JES ROLLE Facility:[facility] [place] Start: 10-14-2023 End: 10-14-2023 Patient encounter procedure JES ROLLE [facility] Start: 10-12-2023 Non-patient / Non-visit [employer]-C Tayla Cruz Work Phone: [facility] Work Phone: Start: 10-05-2023 End: 10-05-2023 ambulatory Alexandro PARTIDA Facility:[facility] [place] [place] Start: 10-05-2023 End: 10-05-2023 Patient encounter procedure Alexandro R JAQUAN [facility] Start: 09-18-2023 End: 09-19-2023 Emergency department patient visit CUATE KELLY [facility] Start: 09-13-2023 End: 09-13-2023 ambulatory Roosevelt Sotelo Facility:[facility] [place] [place] Start: 09-13-2023 End: 09-13-2023 Patient encounter procedure Roosevelt Sotelo [facility] Start: 09-11-2023 Non-patient / Non-visit LEIGHANN Cruz Work Phone: [facility] Work Phone: Start: 08-10-2023 End: 08-10-2023 ambulatory JES ROLLE Facility:[facility] [place] [place] Start: 08-10-2023 End: 08-10-2023 Lab Drop off JES ROLLE [facility] Start: 08-10-2023 End: 08-10-2023 ambulatory JES ROLLE Facility:[facility] Start: 08-10-2023 End: 08-10-2023 Patient encounter procedure JES ROLLE [facility] Start: 06-09-2023 End: 06-09-2023 ambulatory Jes Cruz Facility:[facility] Start: 04-27-2023 ambulatory Roosevelt Sotelo Facility:[facility] Start: 04-16-2023 End: 04-16-2023 ambulatory Ramone Garcia Facility:[facility] [place] [place] Start: 04-16-2023 End: 04-16-2023 Patient encounter procedure Ramone Garcia [facility] Start: 04-01-2023 End: 04-01-2023 ambulatory PHYSICIAN NO FAMILY Facility:[facility] Start: 03-22-2023 End: 03-22-2023 Patient encounter procedure Ramone Garcia [facility] Start: 12-15-2022 End: 12-15-2022 ambulatory Loretta Javier Other [employer] Other Start: 12-15-2022 Office outpatient vi sit 25 minutes Loretta Javier [facility] Start: 10-14-2022 End: 10-14-2022 ambulatory Tanya Glover Other [place] [employer] Other Start: 10-14-2022 Office outpatient vi sit 15 minutes Tanyahai Glover [facility] Start: 08-14-2022 ambulatory Ms. Jes Cruz Facility: Start: 08-14-2022 FUV, Provider: Nadia Franks, Status: Pen, Time: 1:00 PM No PCP None [facility] 250 DO Work Phone: Start: 08-06-2022 Rx Renewal No PCP None [facility] 250 DO Work Phone: Start: 06-24-2022 Office outpatient vi sit 15 minutes No PCP None [facility] 250 DO Work Phone: Start: 06-24-2022 ambulatory Ms. Zuniga Tanvi Peter Facility: Start: 06-19-2022 End: 06-19-2022 ambulatory PHYSICIAN NO [facility] Work Phone: Start: 06-19-2022 End: 06-19-2022 Departed Referred PHYSICIAN NO [facility] Start: 06-17-2022 End: 06-17-2022 ambulatory RIVER MARTE . Facility: Start: 11-10-2021 ambulatory Ms. Nadia Tinajero Lainezmary beth Peter Facility: Start: 10-27-2021 Rx Renewal No PCP None [facility] 250 DO Work Phone: Start: 06-02-2021 Office outpatient vi sit 25 minutes No PCP None [facility] 250 DO Work Phone: Procedures Date Procedure Procedure Detail Performing Clinician Start: 02-17-2024 Insertion of single incision mid-urethral mini-sling Alexandro PARTIDA Start: 12-02-2023 MR lumbar spine wo con [employer]-Terrie paiz Work Phone: Start: 11-01-2023 Urine culture [employer]-Terrie sotelo Work Phone: Start: 10-05-2023 Cystourethroscopy with dilation of urethral stricture JES ROLLE Cardiac catheter (ph ysical object) Ramone Garcia Cardiac catheterization No P CP None Colonoscopy Ramone daltonshantell Hysterectomy Ramone daltonon Operative procedure on foot No PCP None Procedure on back No PCP Non e Procedure on back Ramone salomon Plan of Treatment Date Care Activity Detail Author Start: 11-01-2023 Bacteria identified in Urine by Culture [facility] Start: 08-14-2022 FUV, Provider: Nadia Franks, Status: Pen, Time: 1:00 PM FUV, Provider: Nadia Franks, Status: Pen, Time: 1:00 PM [facility] 250 DO Work Phone: Start: 11-10-2021 FUV, Provider: Nadia Franks, Status: Pen, Time: 3:00 PM FUV, Provider: Nadia Franks, Status: Pen, Time: 3:00 PM [facility] 250 DO Work Phone: Start: 06-30-2021 FUV, Provider: Nadia Franks, Status: Pen, Time: 8:00 AM [facility]UV, Provider: Nadia Franks, Status: Pen, Time: 8:00 AM [facility] 250 DO Work Phone: Estradiol (E2) [Mass/volume] in Serum or Plasma [facility] Lutropin [Units/volu me] in Serum or Plasma [facility] Immunizations Immunization Date Immunization Notes Care Provider Fa regino 03-25-2021 influenza, injectabl e, quadrivalent, preservative free No PCP None [facility] 01-05-2020 influenza, injectabl e, quadrivalent, preservative free No PCP None [facility] 250 DO Work Phone: 01-06-2019 influenza, injectabl e, quadrivalent, preservative free [facility] Payers Date Payer Category Payer Self-pay [id number] 1970 Unknown [id number] 2.840.1.383313.3.579.2. 593 1971 Unknown [id number] 2.840.1.977948.3.579.2. 356 1971 Unknown [id number] 2.840.1.155293.3.579.2. 356 1971 Unknown [id number] 2.16840.1.898052.3.579.2. 356 1971 Unknown [id number] 2.16840.1.149745.3.579.2. 1286 1971 Unknown [id number] 2.16840.1.846280.3.579.2. 1286 1971 Unknown [id number] 2.16840.1.963278.3.579.2. 727 1971 Unknown [id number] 2.16840.1.333154.3.579.2 1971 Unknown [id number] 2.16.840.1.268897.3.579.2 1971 Unknown [id number] 2.16.840.1.302143.3.579.2 1971 Unknown [id number] 2.16.840.1.790083.3.579.2 1971 Unknown [id number] 2.16.840.1.647410.3.579.2 1971 Unknown [id number] 2.16.840.1.638638.3.579.2 1971 Unknown [id number] 2.16.840.1.564520.3.579.2 1971 Unknown [id number] 2.16.840.1.180661.3.579.2 1971 Unknown [id number] 2.16.840.1.457871.3.579.2 1971 Unknown [id number] 2.16.840.1.161013.3.579.2 1971 Unknown [id number] 2.16.840.1.578144.3.579.2 1971 Unknown [id number] 2.16.840.1.514651.3.579.2 1971 Unknown [id number] 2.16.840.1.450916.3.579.2 1971 Unknown [id number] 2.16.840.1.979678.3.579.2 1971 Unknown [id number] 2.16.840.1.155211.3.579.2 1959 Medicaid [id number] Private Health Insurance [id number] Unknown [id number] Unknown [facility] PLAN Unknown [id number] Unknown [id number] 2.16.840.1.669768.3.579.2. 531 Unknown [id number] 2.16.840.1.706509.3.579.2. 531 Unknown [id number] 2.16.840.1.113036.3.579.2. 531 Unknown [id number] 2.16.840.1.540398.3.579.2. 531 Unknown [id number] 2.16.840.1.400531.3.579.2. 531 Social History Date Type Detail Facility Tobacco smoking stat [facility] Unknown if ever smoked [facility] Start: 1970 Sex Assigned At Female F [facility] Illicit drug use Illicit drug use [facility] 250 DO Work Phone: Comment on above: 1 pack per daily.; Start: 05-26-2021 Tobacco smoking stat [facility] Ex-smoker (finding) [facility] Sex Assigned At [facility] Start: 03-22-2023 End: 02-16-2024 Tobacco smoking status Light tobacco smoker (finding) [facility] Tobacco smoking status Never [facility] Medical Equipment Procedure Code Equipment Code Equipment Origin al Text Equipment Identifier Dates Thoracotomy Staple line-reinforcement strip [id number] FDA Start: 03-26-2021 Thoracotomy Surgical adhesive/sealant, human-derived ()[id number] FDA Start: 03-26-2021 Goals Date Patient Goal Desired Activity /State Functional Status Date Assessment Result Facility 02-16-2024 Functional Status N/A [facility] 10-14-2023 Functional Status N/A [facility] 09-13-2023 Functional Status No [facility] 08-10-2023 Functional Status N/A [facility] 03-22-2023 Functional Status No [facility] Clinical Notes 10-14-2022 to 05-24-2024 Note Date & Type Note Facility 05-24-2024 Note SUBJECTIVE: Chief complaint: Postoperative visit for removal of L4-S1 hardware on 03/09/[address] Yee. History of present illness: She reports that from a pain standpoint, her back pain is well-controlled during the day and she can move around freely. However, after work, she reports right lateral low back pain that makes it difficult to bend, walk, stand. She thinks this may be due to the residual portion of the right screw. Symptoms are somewhat better supine. Denies bowel bladder changes or incontinence, falls or imbalance. She does report that she sometimes has numbness of her entire right leg that occurs only after work. She has not had any recent physical therapy, though she did complete this before surgery and did not find it to be beneficial. She has attempted to continue with the home exercise program directed by physical therapy, though states these exercises exacerbate her symptoms. Has not been sleeping well due to pain. She is wondering if she can have a prescription for something for pain to take at bedtime. She was previously taking methocarbamol for muscle spasm, though has since run out. This seemed to help some. Her primary care provider has also started her on ibuprofen 800 mg as needed. This helps a little bit. Meloxicam was not particularly effective. X-rays lumbar spine completed today. 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 Review of systems: As in HPI. Past Medical History: Diagnosis Date Alcohol abuse Anxiety Bipolar disorder ([facility]) Chronic sinusitis Cocaine use 05/2023 COPD (chronic obstructive pulmonary disease) ([facility]) Coronary vasospasm Diverticulosis per CT 08/2023 Dyslipidemia Endometriosis Hypertension [...] OBJECTIVE: Medications: ARIPiprazole aspirin atorvastatin busPIRone cholecalciferol cyclobenzaprine gabapentin ibuprofen isosorbide mononitrate ER meclizine melatonin mirtazapine naloxone nicotine nicotine polacrilex omeprazole ondansetron ODT prazosin propranolol propylene glycol liquid sertraline Current Outpatient Medications: ARIPiprazole (Abilify) 10 mg [...] 10 mg tablet, Take 10 mg by m (more content not included)... [facility] 04-13-2024 Note pain [facility] 03-23-2024 Note SUBJECTIVE: Chief complaint: Postoperative visit [...] requesting to return to work as a electronic engineering technician. She states that her employer is able [...] propylene glycol 99.5 % (not less than, [facility]) liquid external solution, , Disp: , Rfl: oxyCODONE (Roxicodone) 10 mg immediate release tablet, Take 1 tablet (10 mg) by mouth if needed (more content not included)... [facility] 03-17-2024 Hospital Discharge instructions Follow Up Care 03/17/2024 10:42:00 With:JAQUAN PATRICK, Alexandro Hernandez, URL Address: [facility] [address] , [place] [phone] When: Unknown [facility] 03-10-2024 Note Advised by therapy p t requesting DME raised toilet seat and shower chair. Pt requested to use [facility] in [place] but they were out of network. Called around and found [facility] in [place] able to fulfill. Sent scripts/face to face and clinicals by fax and advised pt they will call when ready for pickup. 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 Patient's job involves heavy lifting and standing constantly.) Leisure: Computer games and [employer] art Prior IADLs IADL History Current License: [...] Objective General Assess (more content not included)... [facility] 03-10-2024 Note 03/10/24 1143 Admission Assessment Questions Verify insurance with patient Yes Do you understand medical disease or what brought you into the hospital? Yes Who is your current PCP? [employer] Jes Cruz Can I schedule a follow up appointment for you at the time of discharge? Yes Do you understand why you are taking your current medications? Yes Are you taking your medications as prescribed? Yes Did patient provide teach back? No Pharmacy Bedside Delivery Status Interested Does the patient have a case assembler assigned to them through their insurance? No [...] to send link and activate MyChart? Yes [facility] 03-10-2024 Note Clinical Therapist B rief Intervention Note Substance Intervention: Raise the Subject: [...] brief intervention. Assessment completed by: HARVEY Milton [facility] 03-09-2024 Note Patient: Isela Greene rbin Procedure Summary Date: 03/09/24 Room / Location: [facility] OPERATING ROOM 03 / [facility] Operating Room Anesthesia Start: 1237 Anesthesia [...] per anesthesia protocol. No notable events documented. [facility] 03-09-2024 Note Airway Date/Time: 03/09/2024 12:42 PM Urgency: elective General Information and Staff Patient location during procedure: OR Anesthesiologist: Marjorie Ravi MD Performed: resident/DIP BRAZIER/CAA Indications and Patient Condition Indications for airway [...] 1 Number of other approaches attempted: 0 [facility] 03-09-2024 Note Patient: Isela sellers Procedure Information Date/Time: 03/09/24 1200 Procedure: L4-S1 Removal of Hardware(Screws and Rods) - C-Arm, Open Ulisses Table, OBSERVATION, [employer] NOTIFIED 02/24 JK Location: [facility] OPERATING ROOM 03 / [facility] Operating Room Surgeons: León Yee MD [...] obstructive pulmonary disease) (CMS/HCC) Coronary vasospasm (CMS/HCC) Hypertension Spontaneous pneumothorax HYSTERECTOMY LUMBAR FUSION THORACOSCOPY [...] with attending and resident. Additional Equipment Requests [facility] 02-24-2024 Note SUBJECTIVE: Chief complaint: Preoperative [...] Diagnosis Date Alcohol abuse Anxiety Bipolar disorder ([facility]) Chronic sinusitis Cocaine use 05/2023 COPD (chronic obstructive pulmonary disease) ([facility]) Coronary vasospasm ([facility]) Diverticulosis per CT 08/2023 Dyslipidemia Endometriosis Hypertension [...] propylene glycol 99.5 % (not less than, [facility]) liquid external (more content not included)... [facility] 02-02-[address] Kathy alicea. Dx: spinal hardware complication. Procedure: Removal of hardware L4-S1--screws and rods. Time: 1.5-2 hours. Position: Prone on open Ulisses. Need: C arm. Is on aspirin--not sure who prescribes this for her, but would need clearance to stop. [facility] 01-27-2024 Note SUBJECTIVE: Chief complaint: Broken [...] Diagnosis Date Alcohol abuse Anxiety Bipolar disorder ([facility]/HCC) Chronic sinusitis Cocaine use 05/2023 COPD (chronic obstructive pulmonary disease) (CMS/HCC) Coronary vasospasm ([facility]/HCC) Diverticulosis per CT 08/2023 Dyslipidemia Endometriosis Hypertension [...] by mouth in (more content not included)... [facility] 01-26-2024 Hospital Discharge instructions Follow Up Care 01/26/2024 14:28:39 With:JAQUAN PATRICK, Alexandro Hernandez, URL Address: [facility] [address], [place] [address] [phone] When: Unknown [facility] 12-14-2023 Note SUBJECTIVE: Chief complaint: Broken [...] BEDTIME, Disp: , (more content not included)... [facility] 10-14-2023 Hospital Discharge instructions Patient [...] including vitamins, herbs, eye drops, creams, and gttg-ugd-cgkfsec medicines. Any problems you or family members [...] provider tells you to take them. Taking ixdo-zsd-iqhtbrr medicines, vitamins, herbs, and supplements. Surgery safety [...] provider. Document Revised: 10/25/2020 Document Reviewed: 10/25/2020 Elsevier Patient Education 2022 [employer]. Follow Up Care 10/05/2023 10:22:18 With:[facility] [place] Address: [address] [phone] Business (1) When: Unknown Comments:for procedure as scheduled [facility] 10-14-2023 Note Patient Education Obstetrics and [...] including vitamins, herbs, eye drops, creams, and nfxc-ncp-fdfkwzt medicines. ? Any problems you or family [...] tells you to take them. ? Taking ruqx-obl-iibfoag medicines, vitamins, herbs, and supplements. Surgery safety [...] intended to replace (more content not included)... [facility] 08-10-2023 Evaluation + Plan note Diagnostic Tests PendingUrine Cytology ([facility]) 08/10/23 [facility] 08-10-2023 Hospital Discharge instructions Patient Education [...] require a prescription. You can also purchase fykp-byc-dovrwme medicines. Medicines may have nicotine in them [...] and encouragement. Call telephone quitlines, such as 9-927-UHFP-NOW, reach out to support groups, or work [...] provider. Document Revised: 03/13/2022 Document Reviewed: 03/13/2022 [employer] Patient Education 2022 [employer]. 08/10/2023 10:11:31 Cystoscopy Cystoscopy Cystoscopy is a [...] including vitamins, herbs, eye drops, creams, and ghpy-wzv-egchgbf medicines. Any problems you or family members [...] provider tells you to take them. Taking ujgx-fnc-ekwjapo medicines, vitamins, herbs, and supplements. Tests You [...] Follow these instructions at home: Medicines Take eitj-sud-ioxsdnp and prescription medicines only as told by [...] provider. Document Revised: 12/03/2021 Document Reviewed: 11/01/2020 [employer] Patient Education 2022 [employer]. Follow Up Care 04/30/2023 12:48:57 With:JES ROLLE PA-C, URL Address: [address] [place] [address] [phone] When: Unknown [facility] 08-10-2023 Note Chief Complaint Jes Gomes [...] has had dark urine. Bladder/[place]al [place] 04[place]01[place]23 [facility] [place] mass, stone or hydro. Unremarkable bladder. KUB 04/01/23 [facility] [place] obvious urinary tract calculi. AMOL 08/02/23 [facility] - No renal stones or hydro. Unremarkable bladder. KUB 08/02/23 [facility] - No urinary tract calculi. Educated pt [...] upon conclusion of the workup. -CTU at [facility] now -Urine sample to be sent for [...] pain (R10.9: Unspecified abdominal pain) AMOL/KUB 08/02/23 [facility] - neg. States pain is in her [...] Cyst of kidney, acquired) Bladder/renal US 04/01/23 [facility] [place] Small L renal cyst. 06/09/23 - BUN 14. Cr 0.63. GFR >60. -Simple cysts do not require follow-up Ordered: CT Urogram 5. Smoker (F17.200: Nicotine dependence, unspec (more content not included)... [facility] Comment on above: Result Comment: Elec tronically Signed By: JES ROLLE PA-C\.br\Date and Time Signed: 08/10/23 10:56 EDT\.br\Electronically Co-Signed By: Mirela Lozoya\.br\Date and Time Co-Signed: 08/10/23 10:16 EDT 04-17-2023 Note Echocardiology Procedure Exam Date/Time Accession # Ordering Echo Transthoracic 04/16/2023 14:37 EST [id number] Ramone Garcia MD CPT code [id number] Reason for Exam (Echo Transthoracic Complete) I25.10;CAD Coronary artery disease Report Version: 1 Study ID: [id number] [facility] [address] [place] [address] Adult Echocardiogram Report Name: ISELA CRAIG Study Date: 04/16/2023, 1: 10 PM Patient Location: [facility] : 1970 (MM/DD/YYYY) Gender: Female Age: [...] Transcribed by: [facility] Technologist: GARRY [facility] 12-15-2022 Evaluation note Encounter Date Diagnosis [...] understanding and is agreeable to treatment plan [employer] Other 07-12-2023 Evaluation note* Encounter Date Diagnosis [...] - Z20.822) Oct, Bronchitis (ICD-10 - J40) [employer] Other Evaluation + Plan note Future Appointments Appointment Date:05/13/2023 03:45:00 PM Scheduled Provider:Jose PATRICK, Ramone Butt Location:[facility] Appointment Type:Cardiology Follow Up (FT) Future Scheduled Tests Radiology* NM Myocardial Spect Rest/Stress 1 Day 12/18/23 * Echo Transthoracic [facility] Future App[facility]ments Appointment Date:05/13/2023 03:45:00 PM Scheduled Provider:Ramone Garcia MD [facility] ([facility] Future Appointments Appointment Date:09/27/2023 09:30:00 AM Scheduled Provider: Location:[facility] Appointment Type:Urology CALL PAT FT Appointment Date:10/05/2023 09:00:00 AM Scheduled Provider: Location:[facility] Appointment Type:Urology FT Appointment Date:12/13/2023 01:00:00 PM Scheduled Provider:Roosevelt Sotelo PA-C [facility] Type:Cardiology Follow Up (FT) Future Scheduled Tests Radiology* US Carotid Duplex Bilateral 09/14/23 [facility] + Plan note Future Appointments Appointment Date:10/14/2023 12:40:00 PM Scheduled Provider:JES ROLLE PA-C Location:[facility] Appointment Type:URO Complex Office Visit Appointment Date:12/13/2023 01:00:00 PM Scheduled Provider:Roosevelt Sotelo PA-C [facility] Type:Cardiology Follow Up (FT) Future Scheduled Tests Radiology* [facility] Future Appointments Appointment Date:11/26/2023 09:30:00 AM Scheduled Provider: Location:[facility] Appointment Type:URO Nurse Visit Appointment Date:12/13/2023 01:00:00 PM Scheduled Provider:Roosevelt Sotelo PA-C [facility] Type:Cardiology Follow Up (FT) Appointment Date:12/13/2023 01:45:00 PM Scheduled Provider:Alexandro PARTIDA MD Location:[facility] Appointment Type:URO Office Visit Future Scheduled Tests Radiology* US Carotid Duplex Bilateral 09/14/23 [facility] evaluation + Plan note Future Appointments Appointment Date:02/21/2024 02:30:00 PM Scheduled Provider:Roosevelt Sotelo PA-C Location[facility] Appointment Type:Cardiology Follow Up (FT) [facility] evaluation + Plan note Future Appointments Appointment Date:02/16/2024 09:30:00 AM Scheduled Provider:Roosevelt Sotelo PA-C Location[facility] Appointment Type:Cardiology Follow Up (FT) Appointment Date:02/18/2024 08:30:00 AM Scheduled Provider: Location:[facility] Appointment Type:URO Nurse Visit Appointment Date:03/06/2024 09:00:00 AM Scheduled Provider:Alexandro PARTIDA MD Location:[facility] Appointment Type:URO Office Visit [facility] evaluation + Plan note Future Appointments Appointment Date:02/18/2024 08:30:00 AM Scheduled Provider: Location:[facility] Appointment Type:URO Nurse Visit Appointment Date:03/06/2024 09:00:00 AM Scheduled Provider:Alexandro PARTIDA MD Location:[facility] Appointment Type:URO Office Visit Appointment Date:08/15/2024 09:30:00 AM Scheduled Provider:Roosevelt Sotelo PA-C Location[facility] Appointment Type:Cardiology Follow Up (FT) [facility] evaluation + Plan note Future Appointments Appointment Date:03/06/2024 09:00:00 AM Scheduled Provider:Alexandro PARTIDA MD Location:[facility] Appointment Type:URO Office Visit Appointment Date:08/15/2024 09:30:00 AM Scheduled Provider:Roosevelt Sotelo PA-C Location[facility] Appointment Type:Cardiology Follow Up (FT) [facility] evaluation + Plan note Future Appointments Appointment Date:08/15/2024 09:30:00 AM Scheduled Provider:Roosevelt Sotelo PA-C Location:[facility] Appointment Type:Cardiology Follow Up (FT) [facility] evaluation + Plan note Future Appointments Appointment Date:04/10/2024 10:00:00 AM Scheduled Provider:JES ROLLE PA-C Location:[facility] Appointment Type:URO Office Visit Appointment Date:08/15/2024 09:30:00 AM Scheduled Provider:Roosevelt Sotelo PA-C Location:.[facility] Clinic Appointment Type:Cardiology Follow Up (FT) [facility] evaluation noteNo assessment information available [facility] Work Phone: History general Narrative - Reported* Type Description Date Surgical History hysterectomy Surgical History lumbar [facility] FST21 Other History of Present illness Narrative* The [...] medication regimen. She denies medication side effects. [facility] 250 DO Work Phone: Hospital course Narrative No data available for this section [facility] No data available for this section [facility] No data available for this section [facility] Assessments No Assessments Information Available Family [...] Cardiology consult with subsequent cardiovascular management by [facility]. Hospitalization records have been reviewed. * Reason for Cardiology Consultation: chest pain (presented with spontaneous PTX) * Consulting Public Safety Director: Dr. Lopez * Cardiovascular testing: cardiac cath [...] evaluation. * Last week she presented to [facility] due to chest pain and dizziness. Initial [...] and fluttering . 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 Due to blood pressure and palpitations [...] CREATED AUTHOR AUTHOR'S ORGANIZ ATION 07/29/2022 [facility] DATE CREATED AUTHOR AUTHOR'S ORGANIZ ATION 08/16/2022 [facility] DATE CREATED AUTHOR AUTHOR'S ORGANIZ ATION 09/19/2023 [facility] DATE CREATED AUTHOR AUTHOR'S ORGANIZ ATION 10/21/2023 [facility] DATE CREATED AUTHOR AUTHOR'S ORGANIZ ATION 03/29/2024 [facility] DATE CREATED AUTHOR AUTHOR'S ORGANIZ ATION 04/15/2024 [facility] DATE CREATED AUTHOR AUTHOR'S ORGANIZ ATION 05/29/2024 [facility] REASON FOR VISIT (unrecogniz ed [...] BE BASED ON THE PRIMARY CLINICAL RECORDS. [facility] [employer] [facility]. provides no warranty or guarantee of the accuracy or completeness of information in this document.
[2024-06-18 16:09] LABS: Bilirubin Urine NEGATIVE (NEGATIVE); Blood Urine TRACE-I (NEGATIVE); Clarity Urine CLEAR (CLEAR); Color Urine LT. YELLOW (YELLOW); Glucose Urine UA NEGATIVE (NEGATIVE); Ketones Urine NEGATIVE (NEGATIVE); Leukocyte Esterase Urine TRACE (NEGATIVE); Nitrite Urine NEGATIVE (NEGATIVE); Protein Urine NEGATIVE (NEG/TRACE); Urobilinogen Urine 0.2 EU/dL (0.2-1.0)
[2024-06-18 16:17] LABS: Bacteria Urine TRACE #/HPF (NONE SEEN); Mucus Urine NONE SEEN (NONE SEEN); RBC Urine 0-2 #/HPF (0-2); Squamous Epithelial Cell Urine MODERATE #/LPF (NONE/RARE)
[2024-06-18 16:18] LABS: Cast Seen? NONE SEEN #/LPF (NONE SEEN); Crystals Seen? None Seen #/HPF (None Seen); Urine Culture Indicated NO
--- NOTE | 2024-06-18 16:24 | PC.NURSE ---
Patient refuses Toradol shot at this time. Patient informed to let nurse know if she decides to take it. PA aware.
--- NOTE | 2024-06-18 17:04 | ED_ITS ---
HPI HPI - Back Pain/Injury General Chief Complaint: Back Pain/Injury Stated Complaint: [place] PAIN Time Seen by Provider: 06/18/24 15:45 Source: patient Mode of arrival: walk-in Limitations: no limitations History of Present Illness HPI Narrative: 54-year-old female with presents to the emergency room chief complaint of exacerbation of chronic back pain. Patient had surgery to the lower lumbar area and had screws removed in February. She states since that time she has had increased lower lumbar pain. She denies any new numbness, tingling or loss of bowel or bladder function. 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 She now has lower lumbar pain. Followed up with her surgeon recently. She is here because she is concerned something is w diane because there is a pin that is left from her previous surgery in her back. Here in the emergency room back in April with similar complaints and had a CT scan to rule out stone. She denies any difficulty with urination or burning with urination nausea or vomiting. Related Data Home Medications ?Medication ?Instructions ?Recorded ?Confirmed isosorbide mononitrate 30 mg 30 mg PO DAILY 04/28/23 05/04/24 tablet,extended release 24 hr sertraline 100 mg tablet 150 mg PO DAILY 04/28/23 05/04/24 aripiprazole 10 mg tablet 10 mg PO DAILY 02/09/24 05/04/24 atorvastatin 40 mg tablet 40 mg PO DAILY 02/09/24 05/04/24 gabapentin 600 mg tablet 600 mg PO BID 02/09/24 05/04/24 melatonin 10 mg tablet 10 mg PO DAILY 02/09/24 05/04/24 naloxone 4 mg/actuation nasal spray 4 mg intranasal Q3M PRN opioid 02/09/24 05/04/24 overdose omeprazole 20 mg capsule,delayed 20 mg PO DAILY 02/09/24 05/04/24 release prazosin 2 mg capsule 2 mg PO QPM 02/09/24 05/04/24 propranolol 10 mg tablet 10 mg PO Q12H 02/09/24 05/04/24 Previous Rx's ?Medication ?Instructions ?Recorded aspirin 81 mg tablet,delayed 81 mg PO BID 30 days #60 tabs 05/03/23 release (Adult Low Dose Aspirin) cholecalciferol (vitamin D3) 125 125 mcg PO DAILY 90 days #90 caps 05/03/23 mcg (5,000 unit) capsule cephalexin 500 mg capsule 500 mg PO BID 7 days #14 caps 02/17/24 cephalexin 500 mg capsule 500 mg PO Q8H 7 days #21 caps 04/30/24 diclofenac sodium 75 mg 75 mg PO BID PRN pain #14 tabs 04/30/24 tablet,delayed release hydrocodone 5 mg-acetaminophen 325 1 tab PO Q6H PRN pain 3 days #12 05/04/24 mg tablet tabs methocarbamol 750 mg tablet 750 mg PO TID PRN pain #20 tabs 05/04/24 methylprednisolone 4 mg tablets in See Rx Instructions .Route 05/04/24 a dose pack (Medrol ([place])) .COMPLEX #21 ea prednisone 20 mg tablet 40 mg (2 x 20 mg) PO DAILY #7 tabs 06/18/24 Allergies Allergy/AdvReac Type Severity Reaction Status Date / Time codeine Allergy Hives Verified 06/18/24 15:42 Opioid HPI Opioid Management Most Recent Opioid Data: Last Pain Scale 10 05/04/24 18:19 05/04/24 Ur Phencyclidine Scrn Negative (NEGATIVE) 09/10/23 21:35 06/0 10/26 Review of Systems ROS Status of ROS 10 or more systems reviewed and unremark able except as noted in history and below [facility] Medical History (Updated 06/18/24 @ 17:02 by Aebba Clark) History of blood transfusion (2020) ?Z92.89 - Personal history of other medical treatment (ICD-10) Stress incontinence ?N39.3 - Stress incontinence (female) (male) (ICD-10) Constipation ?K59.00 - Constipation, unspecified (ICD-10) Arthritis ?M19.90 - Unspecified osteoarthritis, unspecified site (ICD-10) Back pain ?M54.9 - Dorsalgia, unspecified (ICD-10) Anemia ?D64.9 - Anemia, unspecified (ICD-10) Depression ?F32.A - Depression, unspecified (ICD-10) Anxiety ?F41.9 - Anxiety disorder, unspecified (ICD-10) COVID-19 ?U07.1 - COVID-19 (ICD-10) Electronic cigarette use ?Z78.9 - Other specified health status (ICD-10) Chronic obstructive pulmonary disease ?J44.9 - Chronic obstructive pulmonary disease, unspecified (ICD-10) GERD (gastroesophageal reflux disease) ?K21.9 - Gastro-esophageal reflux disease without esophagitis (ICD-10) Dyspnea on exertion ?R06.09 - Other forms of dyspnea (ICD-10) Irregular heart beat ?I49.9 - Cardiac arrhythmia, unspecified (ICD-10) Coronary artery disease ?I25.10 - Atherosclerotic heart disease of [place] coronary artery without angina pectoris (ICD-10) Hypertension ?I10 - Essential (primary) hypertension (ICD-10) Hallux rigidus ?M20.20 - Hallux rigidus, unspecified foot (ICD-10) Hallux valgus ?M20.10 - Hallux valgus (acquired), unspecified foot (ICD-10) Palpitation ?R00.2 - Palpitations (ICD-10) Costochondritis ?M94.0 - Chondrocostal junction syndrome [[place]] (ICD-10) Coronary vasospasm ?I20.1 - Angina pectoris with documented spasm (ICD-10) Spontaneous pneumothorax (03/2021) ?J93.83 - Other pneumothorax (ICD-10) Admission for pleural drainage tube placement ?Z46.82 - Encounter for fitting and adjustment of non-vascular catheter (ICD- 10) Surgical History (Updated 11/12/23 @ 08:54 by Harleen Holden NP) H/O foot surgery (05/03/23) ?Z98.890 - Other specified postprocedural states (ICD-10) History of cardiac catheterization ?Z98.890 - Other specified postprocedural states (ICD-10) History of foot surgery ?Z98.890 - Other specified postprocedural states (ICD-10) History of spinal surgery ?Z98.890 - Other specified postprocedural states (ICD-10) History of hysterectomy ?Z90.710 - Acquired absence of both cervix and uterus (ICD-10) Family History (Updated 03/05/23 @ 13:50 by Harleen Holden NP) Other Family history of DVT Family history of hypertension Family history of liver cancer Family history of myocardial infarction Family history of stroke Social History Within the past year, how often did you have a drink containing alcohol: never Score interpretation: A score less than 3 is consistent with normal alcohol consumption. 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 General: The patient appears well and in no apparent distress. Patient is resting comfortably on cart. Skin: Warm, dry, no pallor noted. There is no rash noted. Head: Normocephalic, atraumatic Eye: Normal conjunctiva, no drainage, EOMI. PERRL Ears, Nose, Mouth, and Throat: oral mucosa is moist. Nares patent. Mouth without vesicles. Ear canals patent. Tm's without Erythema Cardiovascular: Regular Rate and Rhythm Respiratory: Patient is in no distress, no accessory muscle use, lungs are clear to auscultation, no wheezing, rales or rhonchi Back: Full flexion extension of back, paraspinal tenderness, no bulging, GI: Normal bowel sounds, no tenderness to palpation, no masses appreciated. No rebound, guarding, or rigidity noted. Musculoskeletal: Ambulating well, dorsiflexion plantarflexion within normal limits bilateral lower extremity strength 5 out of 5, remainder of extremities unremarkable Neurological: A&O x4, normal speech Psychiatric: Cooperative Constitutional Vital Signs, click to edit/add: Last Vital Signs Temp 97.6 F 06/18/24 15:42 Pulse 98 H 06/18/24 15:42 Resp 20 06/18/24 15:42 BP 141/100 H 06/18/24 15:42 Pulse Ox 100 06/18/24 15:42 Course Vital Signs Vital signs: Vital Signs Temperature 97.6 F 06/18/24 15:42 Pulse Rate 98 H 06/18/24 15:42 Respiratory Rate 20 06/18/24 15:42 Blood Pressure 141/100 H 06/18/24 15:42 Pulse Oximetry 100 06/18/24 15:42 Temperature 97.6 F 06/18/24 15:42 Pulse Rate 98 H 06/18/24 15:42 Respiratory Rate 20 06/18/24 15:42 Blood Pressure 141/100 H 06/18/24 15:42 Pulse Oximetry 100 06/18/24 15:42 MDM - Back Pain/Injury MDM Narrative Medical decision making narrative: 54-year-old female with presents to the emergency room chief complaint of exacerbation of chronic back pain. Patient had surgery to the lower lumbar area and had screws removed in February. She states since that time she has had increased lower lumbar pain. She denies any new numbness, tingling or loss of bowel or bladder function. 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 She now has lower lumbar pain. Followed up with her surgeon recently. She is here because she is concerned something is wrong because there is a pin that is left from her previous surgery in her back. Here in the emergency room back in April with similar complaints and had a CT scan to rule out stone. She denies any difficulty with urination or burning with urination nausea or vomiting. Presenting here with chief complaint exacerbation of chronic back pain. X-rays and urinalysis were obtained. Patient denied any urinary symptoms. Urinalysis shows no acute infection, x-ray of the lumbar area shows chronic changes nothing acute no acute fracture. Patient was offered Toradol here in emergency room and denied. She states she is not looking for drugs to help her she wants to know why she is having pain. I believe her pain is due to chronic changes. She is going to follow-up with her surgeon. Patient was given a prescription for prednisone. Patient is encouraged to use stretching and ice Differential Diagnosis Differential diagnosis: Likely lumbar radiculopathy, sciatica and strain of lumbar region Medical Records Attestation: I reviewed the patient's medical records. Lab Data Attestation: I reviewed the patient's lab results. Labs: Lab Results 06/18/24 Range/Units 16:02 Urine Color Lt. yellow (YELLOW) Urine Clarity Clear (CLEAR) Urine pH 7.0 (5.0-9.0) Ur Specific [place] 1.010 (1.005-1.025) Urine Protein Negative (NEG/TRACE) mg/dL Urine Glucose (UA) Negative (NEGATIVE) mg/dL Urine Ketones Negative (NEGATIVE) mg/dL Urine Occult Blood Trace-i (NEGATIVE) Urine Nitrite Negative (NEGATIVE) Urine Bilirubin Negative (NEGATIVE) Urine Urobilinogen 0.2 (0.2-1.0) EU/dL Ur Leukocyte Esterase Trace A (NEGATIVE) Urine RBC 0-2 (0-2) #/HPF Urine WBC 2-5 A (NONE SEEN) #/HPF Ur Squamous Epith Cells Moderate A (NONE/RARE) #/LPF Urine Crystals None seen (None Seen) #/HPF Urine Bacteria Trace A (NONE SEEN) #/HPF Urine Casts None seen (NONE SEEN) #/LPF Urine Mucus None seen (NONE SEEN) Ur Culture Indicated? No Discharge Plan Discharge Chief Complaint: Back Pain/Injury Clinical Impression: Back pain, Strain of lumbar region Patient Disposition: Home, Self-Care Time of Disposition Decision: 17:02 Condition: Good Prescriptions / Home Meds: New prednisone 20 mg tablet 40 mg PO DAILY Qty: 7 0RF No Action cephalexin 500 mg capsule 500 mg PO Q8H 7 Days Qty: 21 0RF diclofenac sodium 75 mg tablet,delayed release (DR/EC) 75 mg PO BID PRN (Reason: pain) Qty: 14 0RF isosorbide mononitrate 30 mg tablet extended release 24 hr 30 mg PO DAILY sertraline 100 mg tablet 150 mg PO DAILY aspirin [Adult Low Dose Aspirin] 81 mg tablet,delayed release (DR/EC) 81 mg PO BID 30 Days Qty: 60 0RF cholecalciferol (vitamin D3) 125 mcg (5,000 unit) capsule 125 mcg PO DAILY 90 Days Qty: 90 0RF aripiprazole 10 mg tablet 10 mg PO DAILY atorvastatin 40 mg tablet 40 mg PO DAILY gabapentin 600 mg tablet 600 mg PO BID melatonin 10 mg tablet 10 mg PO DAILY naloxone 4 mg/actuation spray,non-aerosol 4 mg INTRANASAL Q3M PRN (Reason: opioid overdose) omeprazole 20 mg capsule,delayed release(DR/EC) 20 mg PO DAILY prazosin 2 mg capsule 2 mg PO QPM propranolol 10 mg tablet 10 mg PO Q12H cephalexin 500 mg capsule 500 mg PO BID 7 Days Qty: 14 0RF hydrocodone-acetaminophen 5-325 mg tablet 1 tab PO Q6H PRN (Reason: pain) 3 Days Qty: 12 0RF Rx Instructions: DX: M54.5 methocarbamol 750 mg tablet 750 mg PO TID PRN (Reason: pain) Qty: 20 0RF methylprednisolone [Medrol ([place])] 4 mg tablets,dose pack See Rx Instructions .ROUTE .COMPLEX Qty: 21 0RF Rx Instructions: Taper as directed Print Language: Chinese Instructions: Chronic Back Pain (DC), Core Strengthening Exercises (ED) Referrals: Jes Cruz [facility]ER [Primary Care Provider] - 1 week
== END 2024-06-18 17:10 | disposition home or self-care (01) ==
PROVIDERS: Physician Assistant; Emergency Provider Emergency Medicine; PCP Nurse Practitioner Family
DX: S39.012A Strain of muscle, fascia and tendon of lower back, initial encounter (principal); M54.9 Dorsalgia, unspecified; X58.XXXA Exposure to other specified factors, initial encounter; Z90.710 Acquired absence of both cervix and uterus
CPT/HCPCS: 72100; 81001; 87811; 99285

== ENCOUNTER 2024-12-13 18:55 | Emergency (ER) | payer OTHER, SELFPAY ==
[2024-12-13 19:13] VITALS: BP 141/68; PULSE 80; TEMP 36.8; O2SAT 99; BMI 22.5
--- OUTSIDE RECORDS SUMMARY | 2024-12-13 19:15 | XMS_ITS | CCD ---
Author Organization [facility] CliniSysd Care Team Providers Care Desk Editor Name Role Phone None, No PCP Unavailable Unavailable Unavailable Unavailable NO FAMILY, PHYSICIAN Primary Care Provider LEIGHANN Yuen Attending Pr ovider RIVER GIMENEZ Admitting Unavailable RIVER GIMENEZ Attending Unavailable DR ROCÍO NONE LISTED Primary Care Unavaila ble RIVER GIMENEZ Consulting Unavailable NICK MARIE Consulting Unavailable Rome, Shyanne Lainez Attending Curtis Peter, Ms. Nadia Lainez Referring Curtis Cruz, Ms. Jes Kaur Primary Care Unavailable Rome, Shyanne Lainez Attending Curtis Cruz, Shyanne BoudreauxJes Natasha Primary Care Unavailable Rome, Ms. Nadia Lainez Attending Tanya Colby Unavailable Loretta Javier Unavailable JES CRUZ Primary Care Physician CUATE KELLY Attending Unavailable JES CRUZ Primary Care Unavailab CUATE Olson Attending Unavailable CUATE KELLY Referring Unavailable JES CRUZ Primary Care Unavailab Jacquelyn Azul Primary Care Physician JSE ROLLE Attending Unavailable LEIGHANN Cruz Primary Care Provider LEIGHANN Cruz Attending Pr ovider OVITT, CHLOE Attending Unavailable OVITT, CHLOE Attending Unavailable OVITT, CHLOE Referring Unavailable OVITT, CHLOE Referring Unavailable OVITT, CHLOE Referring Unavailable OVITT, CHLOE Referring Unavailable KATHY, LEÓN Referring Unavailable KATHY, LEÓN Referring Unavailable KATHY, LEÓN Admitting Unavailable KATHY, LEÓN Attending Unavailable OVITT, CHLOE Attending Unavailable OVITT, CHLOE Attending Unavailable OVITT, CHLOE Attending Unavailable PARTIDA, Alexandro R Attending Unavailable PARTIDA, Alexandro R Attending Unavailable PARTIDA, Alexandro R Referring Unavailable PARTIDA, Alexandro R Admitting Unavailable Deepak, JOSUÉ Remy Admitting Unavailable Sotelo, JOSUÉ Remy Attending Unavailable SoteloJOSUÉ Referring Unavailable PARTIDA, Alexandro R Attending Unavailable PARTIDA, Alexandro R Attending Unavailable PARTIDA, Alexandro R Attending Unavailable PARTIDA, Alexandro R Attending Unavailable PARTIDA, Alexandro R Attending Unavailable ELSA, JES Akhtar Attending Unavailable PARTIDA, Alexandro Hernandez Attending Unavailable ELSA, JES Akhtar Attending Unavailable Deepak, JOSUÉ Remy Attending Unavailable NONE, XXXX Referring Unavailable Deepak, JOSUÉ Remy Admitting Unavailable NONE, XXXX Referring Unavailable Deepak, JOSUÉ Remy Attending Unavailable Deepak, JOSUÉ Remy Attending Unavailable NONE, XXXX Referring Unavailable JOSUÉ Sotelo Admitting Unavailable Cruz NP-C, Jes Kaur Primary Care Provider Loretta Javier APRN Attending Provider Jes Cruz Attending U chacortaable Cruz, Jes Kaur Primary Care U navailable Cruz, Jes Kaur Admitting U navailable Cruz, Jes Kaur Attending U chacortaable Anthony, Jes Kaur Primary Care U chacortaable Anthony, Jes Kaur Admitting U navailable Cruz, Jes Kaur Attending U chacortaable Cruz, Jes Kaur Primary Care U alainaailable Anthony, Jes Kaur Admitting U alainaailable Anthony, Jes Kaur Primary Care U Loretta Johnson Attending Unavailable Loretta aJvier Admitting Unavailable Unavailable Unavailable Unavailable Allergies Allergy Classification Reported Allergen(s) Allergy Type Date of Onset Reaction(s) Facility Opioid Agonists (1 source) Codeine; Translations: [codeine] Drug Allergy Eruption of skin present [facility] (20 sources) Codeine; Translations: [codeine] Drug Allergy 09-03-2012 hives, Eruption of skin present [facility] Medications Current Medications Medication Drug Class(es) Dates Sig (Normalized) Sig (Original) ARIPiprazole 10 mg oral tablet (2 sources) Atypical Antipsychotic Start: 08-24-2024 Aripiprazole 10 mg tablet Active MG PO August 24, 2024 12:00am aspirin 81 mg delayed release oral tablet (20 sources) Platelet Aggregation Inhibitor, Nonsteroidal Anti-inflammatory Drug Start: 04-04-2021 take 1 tablet by mouth once daily aspirin 81 mg Oral EC Tab 81 mg = 1 tab(s), Oral, Daily, Refills(s) 0 Start Date: 03/22/23 Status: Ordered Repeat number: 1 take 1 tablet by mouth once brandi [...] Weight Dosing Start Date: 03/22/23 Status: Ordered Quantity: 30.0 Unit: tab(s) Repeat number: 4 Start: 04-04-2021 take 1 tablet by elisabet th once daily in the evening Atorvastatin 20 mg Tablet Active 20 MG PO Every evening April 04, 2021 1:00am busPIRone hydrochloride 7.5 mg oral tablet (20 sources) Start: 08-24-2024 take 1 tablet by mouth twice daily Buspirone 7.5 mg tablet Active 7.5 MG PO Twice daily August 24, 2024 12:00am Start: 01-17-2020 take 1 mg by mouth twice daily busPIRone 15 mg Tab mg tab(s), Oral, BID, Refills(s) 0 Start Date: 01/17/20 Status: Ordered Repeat number: 1 Start: 10-19-2019 End: 03-24-2021 Buspirone 10 mg tablet Disco ntinued 15 MG PO Three times daily October 19, 2019 12:57pm March 24, 2021 4:09pm Start: 10-19-2019 End: 03-24-2021 take 15 mg by mouth three times daily Buspirone Discontinued 15 MG PO Three times daily October 19, 2019 12:57pm March 24, 2021 4:09pm Start: 01-09-2019 End: 10-19-2019 take 1 tablet by mouth three times daily Buspirone 10 mg Tablet Discontinued 10 MG PO Three times daily January 09, 2019 12:00am October 19, 2019 12:57pm BuSpar Not-Takin g cholecalciferol 0.05 mg oral tablet (2 sources) Vitamin D Start: 08-24-2024 Cholecalciferol (Vitamin D3) 50 mcg (2,000 unit) tablet Active 50 MCG PO August 24, 2024 12:00am clonazePAM 0.5 mg oral tablet (9 sources) [...] 12 hrs for 10 days Dec, Active gabapentin 300 mg oral capsule (20 sources) Anti-epileptic Agent Start: 05-26-2021 take 1 capsule by mouth once daily Gabapentin (Neurontin) 300 mg capsule Active 300 MG PO Daily 1 May 26, 2021 1:00am Day one of therapy Start: 05-26-2021 End: 08-24-2024 take 2 capsules by mouth twice daily Gabapentin (Neurontin) 300 mg capsule Discontinued 300 MG PO Twice daily 2 May 26, 2021 1:00am August 24, 2024 12:46pm Day two of therapy Start: 05-26-2021 End: 08-24-2024 take 3 capsules by mouth three times daily Gabapentin (Neurontin) 300 mg capsule Discontinued 300 MG PO Three times daily 60 May 26, 2021 1:00am August 24, 2024 12:46pm Start TID dosing on day three Start: [...] Refills(s) 0 Start Date: 01/17/20 Status: Ordered Repeat number: 1 Start: 01-09-2019 End: 10-19-2019 take 1 capsule by mouth three times daily Gabapentin 300 mg Capsule Discontinued 300 MG PO Three times daily 90 January 09, 2019 12:00am October 19, 2019 12:57pm Motrin (20 sources) Nonsteroidal Anti-inflammatory Drug Start: 01-17-2020 take 1 mg by mouth every six hours Motrin IB mg, Oral, q6hr, Refills(s) 0 Start Date: 01/17/20 Status: Ordered Repeat number: 1 Start: 01-17-2020 take 1 mg by mouth e very six hours Motrin IB mg, Oral, q6hr, Refills(s) 0 Start Date: 01/17/20 Status: Ordered Start: 10-19-2019 End: 03-24-2021 take 1 tablet by mouth every six hours as needed for pain Ibuprofen 800 mg Tablet Discontinued 800 MG PO Q6H as needed for Pain October 19, 2019 12:00am March 24, 2021 [...] Weight Dosing Start Date: 03/22/23 Status: Ordered Quantity: 30.0 Unit: tab(s) Repeat number: 4 Start: 04-04-2021 take 1 tablet by elisabet th once daily, then take 1 tablet by mouth every twenty-four hours Isosorbide Mononitrate 60 mg tablet extended release 24 hr Active 60 MG PO Daily April 04, 2021 1:00am lamoTRIgine 25 mg chewable tablet (16 sources) Mood Stabilizer, Anti-epileptic Agent Start: 01-17-2020 [...] Dec, Active mirtazapine 7.5 mg oral tablet (12 sources) Start: 10-14-2023 Mirtazapine 7.5 mg tablet Active MG PO August 24, 2024 12:00am naltrexone 380 mg injection (3 sources) Opioid Antagonist Start: 10-14-2023 Vivitrol 380 mg intramuscular injection, extended release Refills(s) 0 Start Date: 10/14/23 Status: Ordered nicotine 2 mg chewing gum (15 sources) Cholinergic Nicotinic Agonist Start: 10-14-2023 nicotine 2 mg Oral transmucosal Gum Refills(s) 0 Start Date: 10/14/23 Status: Ordered Start: 06-02-2021 apply 1 dose transde rmal route once daily EQ Nicotine 21 MG/24HR Transdermal Patch 24 Hour APPLY 1 PATCH DAILY DIRECTED. Quantity: 30 Refills: 1 Ordered: 02-Jun-2021 Nadia Mancuso Start : 02-Jun-2021 Active Start: 01-09-2019 End: 10-19-2019 apply 1 dose transdermal route every twenty-four hours Nicotine 21 mg/24 hr Patch 24 Hour Discontinued 1 EACH TRANSDERML Daily 10 09January 09, 2019 12:00am October 19, 2019 12:57pm Start: 01-09-2019 End: 10-19-2019 Nicotine Discontinued 1 EACH TRANSDERML Daily 10 09January 09, 2019 12:00am October 19, 2019 12:57pm olanzapine (20 sources) Atypical Antipsychotic Start: 01-17-2020 olanzap ine Refills(s) 0 Start Date: 01/17/20 Status: Ordered Repeat number: 1 Start: 01-17-2020 olanzapine Ref ills(s) 0 Start Date: 01/17/20 Status: Ordered Start: 01-09-2019 End: 03-24-2021 take 1 tablet by mouth once daily at bedtime Olanzapine 10 mg Tablet Discontinued 10 MG PO Daily at bedtime January 09, 2019 12:00am March 24, 2021 4:09pm OLANZapine Not-T aking oxybutynin chloride 5 mg oral tablet (6 sources) Cholinergic Muscarinic Antagonist Start: 02-08-2020 take 2 tablets by mouth at bedtime as needed oxybutynin 5 mg Tab 10 mg = 2 tab(s), Oral, Bedtime, PRN Other (see comment), Nocturia, # 60 tab(s), Refills(s) 3, Pharmacy: [facility] [id number], 165, cm, 01/17/20 11:18:00 EDT, Height/Length Dosing, 88, kg, 01/17/20 11:18:00 EDT, Weight Dosing Start Date: 02/08/20 Status: Ordered pantoprazole 40 mg extended release oral tablet (16 sources) Proton Pump Inhibitor Start: 01-17-2020 take 1 mg by mouth once daily pantoprazole 40 mg Oral EC Tab mg tab(s), Oral, Daily, Refills(s) 0 Start Date: 01/17/20 Status: Ordered Repeat number: 1 prazosin 2 mg oral tablet (20 sources) alpha-Adrenergic Humera Start: 08-24-2024 Prazosin 2 mg capsule Active MG PO August 24, 2024 12:00am Start: 01-17-2020 prazosin Oral, TID, Refills(s) 0 Start Date: 01/17/20 Status: Ordered Repeat number: 1 Start: 01-17-2020 prazosin Oral, TID, Refills(s) 0 Start Date: 01/17/20 Status: Ordered Start: 10-19-2019 End: 03-24-2021 Prazosin 1 mg capsule Discon tinued 1 MG PO As Directed October 19, 2019 12:00am March 24, 2021 4:09pm propranolol hydrochloride 10 mg oral tablet (12 sources) beta-Adrenergic Humera Start: 10-14-2023 Propra nolol 10 mg tablet Active MG PO August 24, 2024 12:00am sertraline 50 mg oral tablet (18 sources) Serotonin Reuptake Inhibitor Start: 08-24-2024 Sertraline 50 mg tablet Active MG PO August 24, 2024 12:00am Start: 03-22-2023 take 1 tablet by elisabet once daily Zoloft 100 mg Tab 100 mg = 1 tab(s), Oral, Daily, # 30 tab(s), Refills(s) 0 Start Date: 03/22/23 Status: Ordered Quantity: 30.0 Unit: tab(s) Repeat number: 1 Vitamin D3 50,000 intl units oral capsule (14 sources) Start: 08-10-2023 Vitamin D3 50, 000 intl units oral capsule 1,250 mcg = 1 cap(s) Start Date: 08/10/23 Status: Ordered Repeat number: 1 Start: 08-10-2023 Vitamin D3 50, 000 intl units oral capsule 1,250 mcg = 1 cap(s) Start Date: 08/10/23 Status: Ordered Completed/Discontinued Medications Medication Drug Class(es) Dates Sig (Normalized) Sig (Original) [id number] 200 actuat albuterol 0.09 mg/actuat metered dose [...] Ordered cyclobenzaprine hydrochloride 5 mg oral tablet (16 sources) Muscle Relaxant Start: 10-19-2019 End: 03-24-2021 take 1 tablet by mouth three times daily Cyclobenzaprine 5 mg tablet Discontinued 5 MG PO Three times daily [...] Active Start: 06-02-2021 take 1 capsule by [facility] once daily dilTIAZem HCl ER Coated [...] daily Quantity: 30 Refills: 0 Ordered: 13-Aug-2022 LainezNadia Desai Start : 24-Jun-2022 Active ferrous sulfate 324 mg delayed release oral tablet (5 sources) Start: 04-04-2021 End: 08-24-2024 take 1 tablet by mouth twice daily Ferrous Sulfate 324 mg (65 mg iron) Tablet,Delayed Release (Dr/Ec) Discontinued 324 MG PO Twice daily April 04, 2021 1:00am August 24, 2024 12:46pm lisinopril 10 mg oral tablet (4 sources) Angiotensin Converting Enzyme Inhibitor Lisinopril 10 MG Oral for 30 Days Not-Taking loratadine 10 mg oral tablet (5 sources) Start: 01-09-2019 End: 10-19-2019 take 1 tablet by mouth once daily in the morning Loratadine 10 mg Tablet Discontinued 10 MG PO Every morning January 09, 2019 12:00am October 19, 2019 12:57pm nitroglycerin 0.4 mg sublingual tablet (10 sources) Nitrate Vasodilator Start: 04-04-2021 End: 08-24-2024 Nitroglycerin (Nitrostat) 0.4 mg tablet, sublingual Discontinued 0.4 MG SUBLINGUAL Q5M as needed for chest pain 100 April 04, 2021 1:00am August 24, 2024 12:47pm do not exceed 3 doses per episode predniSONE 20 mg oral tablet (2 sources) Start: 10-14-2022 take 1 tablet by mouth every twelve hours predniSONE 20 MG 1 tablet Orally bid for 5 day(s) Oct, Not-Taking Problems Active Problems Problem Classification Problem Date Documented Da te Episodic/Chronic Abdominal pain (19 sources) Abdominal pain; Translations: [Unspecified abdominal pain] Onset: 08-10-2023 01-17-2020 Episodic Adjustment disorders (5 sources) Complicated grieving; Translations: [Adjustment disorder with depressed mood] 01-06-2019 Chronic Adjustment disorders (1 source) Complicated grieving; Translations: [Complicated bereavement] Episodic Anxiety disorders (18 sources) Anxiety; Translations: [Claustrophobia] Onset: 12-14-2023 03-18-2023 Chronic Calculus of urinary tract (16 sources) History of calculus of kidney; Translations: [Personal history of urinary calculi] Onset: 08-10-2023 Episodic Cardiac dysrhythmias (10 sources) Palpitations; Translations: [Palpitations] Onset: 09-13-2023 Episodic Chronic obstructive pulmonary disease and bronchiectasis (5 sources) Chronic obstructive lung disease; Translations: [Chronic obstructive pulmonary disease, unspecified] 03-25-2021 Chronic Chronic obstructive pulmonary disease and bronchiectasis (1 source) Bronchitis, not specified as acute or chronic Episodic Complications of surgical procedures or medical care (5 sources) Subcutaneous emphysema resulting from a procedure; Translations: [Emphysema (subcutaneous) resulting from a procedure, initial encounter] 03-25-2021 Episodic Coronary atherosclerosis and other heart disease (20 sources) Coronary atherosclerosis; Translations: [Coronary atherosclerosis of [place] coronary artery] 04-03-2021 Chronic Disorders of lipid metabolism (6 sources) Mixed hyperlipidemia; Translations: [Mixed hyperlipidemia] Onset: 03-27-2024 Chronic Essential hypertension (20 sources) Benign hypertension; Translations: [Benign essential hypertension] Onset: 03-27-2024 03-18-2023 Chronic Genitourinary symptoms and ill-defined conditions (20 sources) Incontinence; Translations: [Urge incontinence of urine] Onset: 08-10-2023 01-17-2020 Chronic Genitourinary symptoms and ill-defined conditions (20 sources) Blood in urine; Translations: [Microscopic hematuria] Onset: 08-10-2023 01-17-2020 Episodic Headache; including migraine (1 source) Headache; including migraine; Translations: [Headache, unspecified] Onset: 09-18-2023 Mood disorders (20 sources) Major depressive disorder; Translations: [Major depressive disorder, single episode, unspecified] 01-06-2019 Chronic Nonspecific chest pain (11 sources) Chest wall pain; Translations: [Other chest pain] Onset: 06-17-2022 05-26-2021 Episodic Nutritional deficiencies (1 source) Vitamin D deficiency, unspecified; Translations: [Vitamin D deficiency, unspecified] Onset: 03-27-2024 Chronic Other bone disease and musculoskeletal deformities (3 sources) Costal chondritis; Translations: [Tietze's disease] Episodic Other circulatory disease (5 sources) Cardiac function test normal; Translations: [Normal cardiac ejection fraction] Episodic Other connective tissue disease (1 source) Pain in right foot; Translations: [Pain in right foot] Onset: 08-24-2024 Episodic Other diseases of bladder and urethra (1 source) Detrusor overactivity; Translations: [Overactive bladder] Onset: 10-14-2023 Chronic Other diseases of bladder and urethra (10 sources) Overactive bladder 10-14-2023 Chronic Other diseases of kidney and ureters (1 source) Acquired renal cyst without neoplastic change; Translations: [Cyst of kidney, acquired] Onset: 08-10-2023 Episodic Other diseases of kidney and ureters (14 sources) Cyst of kidney 08-10-2023 Episodic Other gastrointestinal disorders (2 sources) Diarrhea; Translations: [Diarrhea, unspecified] Episodic Other gastrointestinal disorders (2 sources) Drug induced constipation; Translations: [Drug induced constipation] Onset: 03-09-2024 Episodic Other nervous system disorders (2 sources) Other chronic pain; Translations: [Other chronic pain] Onset: 02-24-2024 Chronic Other nervous system disorders (1 source) Polyneuropathy, unspecified; Translations: [Polyneuropathy, unspecified] Onset: 12-02-2023 Chronic Other nervous system disorders (2 sources) Other acute postprocedural pain; Translations: [Other acute postprocedural pain] Onset: 03-09-2024 Episodic Other nutritional; endocrine; and metabolic disorders (5 sources) Overweight in adulthood with body mass index of 25 or more but less than 30; Translations: [Overweight] Episodic Other upper respiratory infections (5 sources) Sinusitis; Translations: [Chronic sinusitis, unspecified] 01-06-2019 Chronic Other upper respiratory infections (5 sources) Sinusitis; Translations: [Acute pharyngitis, unspecified] Episodic Pleurisy; pneumothorax; pulmonary collapse (10 sources) Pneumothorax; Translations: [Other pneumothorax] 03-24-2021 Episodic Residual codes; unclassified (5 sources) Tobacco user; Translations: [Tobacco use] 12-20-2021 Episodic Residual codes; unclassified (3 sources) Body [...] spasm of back] Onset: 01-27-2024 02-08-2020 Episodic Sprains and strains (1 source) Strain of unspecified muscle and tendon at ankle and foot level, right foot, initial encounter; Translations: [Sprain of foot, unspecified site] 08-24-2024 Episodic Substance-related disorders (20 sources) Polysubstance abuse ; Translations: [Smoker] Onset: 08-10-2023 01-06-2019 Chronic Comment on above: 1 pack per daily.; Added secondary to d ocumentation in Social History. Suicide and intentional self-inflicted injury (6 sources) Suicidal thoughts; Translations: [Suicidal ideations] 01-05-2019 Episodic Syncope (3 sources) Syncope and collapse; Translations: [Syncope and collapse] Onset: 09-13-2023 Episodic Unclassified (16 sources) Finding of sensation of bladder 02-08-2020 Unclassified (1 source) EMS Onset: 09-18-2023 Unclassified (2 sources) Low back pain, unspecified; Translations: [Low back pain, unspecified] Onset: 12-02-2023 Urinary tract infections (16 sources) Chronic interstitial cystitis 02-08-2020 Chronic Past or Other Problems Problem Classification Problem Date Documented Date Episodic/Chronic Chronic obstructive pulmonary disease and bronchiectasis (16 sources) Chronic obstructive pulmonary disease and bronchiectasis 03-18-2023 Coagulation and hemorrhagic disorders (2 sources) Spontaneous ecchymoses; Translations: [Spontaneous ecchymoses] Onset: 02-24-2024 Episodic Complication of device; implant or graft (3 sources) Other mechanical complication of other internal orthopedic devices, implants and grafts, initial encounter; Translations: [Breakdown (mechanical) of internal fixation device of vertebrae, initial encounter] Onset: 12-02-2023 Episodic Nutritional deficiencies (1 source) Iron deficiency; Translations: [Iron deficiency] Onset: 11-01-2023 Episodic Other nervous system disorders (2 sources) Paresthesia of skin; Translations: [Paresthesia of skin] Onset: 12-14-2023 Episodic Residual codes; unclassified (1 source) Flushing; Translations: [Flushing] Onset: 11-01-2023 Episodic Unclassified (1 source) Contact with and (suspected) exposure to covid-19 Z20.822 Unclassified (16 sources) Bipolar (qualifier value) 03-18-2023 Unclassified (1 source) Low back pain, unspecified; Translations: [Low back pain, unspecified] Onset: 03-09-2024 Results Test Name Value Interpretation Reference Range Facility X-ray reportOrdered By: Chan Torres on 08-24-2024 Study report [facility] [place] [address] [place] [address] XRay Report Signed Patient: Isela Craig MR#: [id number] : 1970 Acct:[id number] Age/Sex: 54 / F ADM Date: 5 Loc: XDUCLY Room: Type: [facility] [address] Attending Dr: Loretta Javier APRN Copies to: Loretta Javier APRN~ Ordering Provider: Loretta Javier APRN Date of Service: 08/24/24 XR/XR foot RT min 3V*: RIGHT FOOT PAIN RIGHT FOOT - 3 views CLINICAL HISTORY: Right foot injury with right foot pain COMPARISON: None FINDINGS: No fracture or dislocation. Joint spaces preserved Soft tissues grossly unremarkable. XR/XR foot RT min 3V* IMPRESSION: NO ACUTE PLAIN FILM FINDINGS. Impression dictated by: Derrick Torres M.D. 08/24/2024 1:13 PM Dictation Location: [id number]-26 Transcribed By: FLORES 08/24/24 1313 Dictated By: Derrick Torres MD 08/24/241310 Signed By: 08/24/241312 [facility] Work Phone: XR foot RT min 3V*on 025 XR foot RT min 3V* [facility] [place] [address] [place] [address] XRay Report Signed Patient: Isela Craig MR#: [id number] : 1970 Acct:[id number] Age/Sex: 54 / F ADM Date: 08/24/24 Loc: XDUCLY Room: Type: [facility] [address] Attending Dr: Loretta Javier APRN Copies to: Loretta Javier APRN Ordering Provider: Loretta Javier APRN Date of Service: 08/24/24 XR/XR foot RT min 3V*: RIGHT FOOT PAIN RIGHT FOOT - 3 views CLINICAL HISTORY: Right foot injury with right foot pain COMPARISON: None FINDINGS: No fracture or dislocation. Joint spaces preserved Soft tissues grossly unremarkable. XR/XR foot RT min 3V* IMPRESSION: NO ACUTE PLAIN FILM FINDINGS. Impression dictated by: Derrick Torres M.D. 08/24/2024 1:13 PM Dictation Location: [id number]-26 Transcribed By: FLORES 08/24/24 1313 Dictated By: Derrick Torres MD 08/24/24 1311 Signed By: 08/24/24 1313 Normal [facility] Heart and Vascular Office/Cl inic Noteon 08-15-2024 Heart and Vascular Office/Clinic Note Heart and Vascular Office/Clinic Note Chief Complaint 6 month follow up; Syncope; Palpitations History of Present Illness Patient is a 54-year-old female with past medical history of bipolar [...] Patient comes in for 6-month follow-up today. Reviewed prior carotid ultrasound, echo At last visit, I saw patient at which time she was cleared for needed surgical procedure and informed of test results. Patient reports that she has been having some left-sided chest discomfort lately. She states that is the top portion of her chest and radiates up into her neck and into her shoulder as well. Patient reports that this pain has been going on for a couple weeks now. 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 Cannot recall any specific injury, but has been working about 60 hours/week without much rest lately. Patient does have family history of CAD with her mother passing away from an [place]. Patient is also a current 1/2 pack/day smoker and has smoked for a number of years. Patient reports that she is tired all the time right now as well, which is not normal for her. Patient denies any significant heart palpitations lately, although maybe has some palpitations when she is having this pain listed above. No syncopal episodes since last visit. Patient denies significant shortness of breath, dizziness/lightheaded ness, swelling of lower extremities. REVIEWED PRIOR NOTE FROM 02/16/2024: Patient comes in for 6-month follow-up today. [...] chest pain, shortness of breath, heart palpitations, dizziness/lightheaded ness, and swelling in lower legs. Review of Systems ROS - Provider Constitutional: no fever, no chills, no sweats, no weakness Respiratory: no shortness of breath, no cough Cardiovascular: yes chest pain Neuro: no dizziness. no loss of consciousness Physical Exam Vitals & Measurements HR: 71(Peripheral) RR: 18 BP: 116/79 SpO2: 98% HT: 65 in HT: 164 cm WT: 140.214 lb WT: 63.6 kg BMI: 23.65 General: alert, no acute distress Cardiovascular: regular [...] Normal diastolic filling pattern. [2] Assessment/Plan 1. Chest pain (R07.9: Chest pain, unspecified) Patient has had some atypical chest pain here lately. EKG in the office today shows no significant ST T wave changes suggestive of ischemia. She states that it does hurt with more activity, but seems like it possibly could be musculoskeletal as well. Patient does have family history of CAD in her mother from an [place]. Patient is also a smoker so has some risk factors of her own. Negative stress test in 04/2023, however I would suggest another nuc med treadmill stress test at this time to rule out CAD. Ordered: NM Myocardial Spect Rest/Stress 1 Day (more content not included)... Normal [facility] Comment on above: Result Comment: Elec tronically Signed By: Deepak MOSES, Roosevelt Remy\mundo\Date and Time Signed: 08/15/24 10:27 EDT Office Visiton 05-24-2024 Follow-up visit [id number] RafaIsela Butts 1970 F Date Provider Department Center 05/24/2024 [facility] [place] Family History Problem Relation Age of Onset Coronary artery disease Mother Hypertension Mother Other Father Hypertension Father Other Daughter Comments: 05/2023 drug overdose Family Status - Relation Status Age at Mother Father Daughter Level of Service:15065 [place] POSTOP FOLLOW UP VISIT RELATED TO ORIGINAL PX Reason for Visit and Comments: Post-op [483] [facility] 36on 05-17-2024 36 Patient called back and notified her of the response. Nothing further [facility] 36 Attempted to call patient to notify her of Chloe's response, unable to leave voicemail as mailbox is full. [facility] 36on 05-16-2024 36 Patient called in asking if Chloe could prescribe her medication again. Hose Inspector And Patcher asked if she has found a cork painter and grader that is out by her. Patient responded no. I asked her if she would want to see someone here instead and she agreed. Hose Inspector And Patcher also voiced that the last time that we had spoken on 04/20, was going to be the last time the Chloe would prescribe the medication. Patient voiced that she was in the hospital twice for the pain at [place]. She said that they had prescribed her something new and to follow up with Chloe. She is already scheduled to see Chloe on 05/24. Please advise [facility] Telephoneon 05-16-2024 Telephone [id number] Isela Craig 1970 F Date Provider Department Center 05/16/2024 [facility]ICK [facility] [place] Family History Problem Relation Age of Onset Coronary artery disease Mother Hypertension Mother Other Father Hypertension Father Other Daughter Comments: 05/2023 drug overdose Family Status - Relation Status Age at Mother Father Daughter [facility] 36on 04-20-2024 36 Called and [...] will call me back with an answer. [facility] 36 Patient called write r asking if Chloe could prescribe the percocet to have enough until she see's Chloe next week. She states that she is not in pain until she is done with work. She also asked if a pain management referral could be placed for someone closer to home for her. Please advise. [facility] Orders Onlyon 04-20-2024 Orders Only [id number] Isela Craig 1970 F Date Provider Department Center 04/20/2024 [id number], [facility] [place] Family History Problem Relation Age of Onset Coronary artery disease Mother Hypertension Mother Other Father Hypertension Father Other Daughter Comments: 05/2023 drug overdose Family Status - Relation Status Age at Mother Father Daughter [facility] 36on 04-13-2024 36 Patient is requestin g pain medication d/t the continuous pain she haves right side of back. She is scheduled to see pain medicine on 04/19/24. She can be reached at [phone]. Thank you This phone message was created by the Ambulatory float staff. If you need collection support specialist follow up regarding this patient, please make your appropriate clinic staff member aware. Thank you. [facility] Orders Onlyon 04-13-2024 Orders Only [id number] Isela Craig 1970 F Date Provider Department Center 04/13/2024 N[place], [facility] [place] Family History Problem Relation Age of Onset Coronary artery disease Mother Hypertension Mother Other Father Hypertension Father Other Daughter Comments: 05/2023 drug overdose Family Status - Relation Status Age at Mother Father Daughter [facility] Patient Letter FTon 2024 Patient Letter [facility] Patient Letter [facility] April 10, 2024 ISELA C[address]IG [address] [place] [id number] : 1970 Dear Isela, You missed your [...] any future cancellations. Sincerely, [facility] [address], [place] [address] [facility] Orders Onlyon 04-03-2024 Orders Only [id number] Isela Craig 1970 F Date Provider Department Center 04/03/2024 [facility] [place] Family History Problem Relation Age of Onset Coronary artery disease Mother Hypertension Mother Other Father Hypertension Father Other Daughter Comments: 05/2023 drug overdose Family Status - Relation Status Age at Mother Father Daughter [facility] 36on 03-27-2024 36 Patient called back. She asked that her letter be mailed to her. I voiced to her that Chloe sent in a week of medication in for her and patient voiced that she got a text message from her pharmacy saying it was ready for supervisor opening and picking. Notified patient that after today we would not be here till for if she has any issues. Patient understood. Nothing further. [facility] 36 Lvm for patient to call back [facility] Complete Blood Count Auto Di ffon 03-27-2024 Basophils (Bld) [#/Vol] 0.1 10*3/uL Normal 0.0-0.2 [facility] Comment on above: Order Comment: Reaso n for Exam Microscopic hematuria Name Collection Type:: Voided Result Comment: PERF ORMED BY: [facility] [address] [place] [address] PATHOLOGIST BOTTLE CAPPING MACHINE OPERATOR ОЛЬГА HULL M.D. Performed By: #### T SH3, [id number], CMP, SHAMA, FE and TIBC, LIPID, FSH, T3F, CUU, [id number], UA, CBC #### [address] #### ESTRADIOL, LH #### [facility] , Basophils/100 WBC (Bld) 1.3 % Normal . T [facility] Comment on above: Order Comment: Reaso n for Exam Microscopic hematuria Name Collection Type:: Voided Performed By: #### T SH3, [id number], CMP, SHAMA, FE and TIBC, LIPID, FSH, T3F, CUU, [id number], UA, CBC #### [address] #### ESTRADIOL, LH #### [facility] , Eosinophils (Bld) [#/Vol] 0.1 10*3/uL Normal 0.0-0.45 [facility] Comment on above: Order Comment: Reaso n for Exam Microscopic hematuria Name Collection Type:: Voided Performed By: #### T SH3, [id number], CMP, SHAMA, FE and TIBC, LIPID, FSH, T3F, CUU, [id number], UA, CBC #### [place] [address] [place] #### ESTRADIOL, LH #### [facility] , Eosinophils/100 WBC (Bld) 1.0 % Normal . [facility] Comment on above: Order Comment: Reaso n for Exam Microscopic hematuria Name Collection Type:: Voided Performed By: #### T SH3, [id number], CMP, SHAAM, FE and TIBC, LIPID, FSH, T3F, CUU, [id number], UA, CBC #### [place] [address] [place] #### ESTRADIOL, LH #### [facility] , Erythrocyte distribution width (RBC) [Ratio] 13.3 % Normal 11.9-15.3 [facility] Comment on above: Order Comment: Reaso n for Exam Microscopic hematuria Name Collection Type:: Voided Performed By: #### T SH3, [id number], CMP, SHAMA, FE and TIBC, LIPID, FSH, T3F, CUU, [id number], UA, CBC #### [address] #### ESTRADIOL, LH #### [facility] , Hematocrit (Bld) [Volume fraction] 38.0 % Normal 34.0-46.4 [facility] Comment on above: Order Comment: Reaso n for Exam Microscopic hematuria Name Collection Type:: Voided Performed By: #### T SH3, [id number], CMP, SHAMA, FE and TIBC, LIPID, FSH, T3F, CUU, [id number], UA, CBC #### [address] #### ESTRADIOL, LH #### [facility] , Hemoglobin (Bld) [Mass/Vol] 12.6 g/dL Normal 11.8-15.4 [facility] Comment on above: Order Comment: Reaso n for Exam Microscopic hematuria Name Collection Type:: Voided Performed By: #### T SH3, [id number], CMP, SHAMA, FE and TIBC, LIPID, FSH, T3F, CUU, [id number], UA, CBC #### [address] #### ESTRADIOL, LH #### [facility] , Lymphocytes (Bld) [#/Vol] 1.7 10*3/uL Normal 1.00-4.8 [facility] Comment on above: Order Comment: Reaso n for Exam Microscopic hematuria Name Collection Type:: Voided Performed By: #### T SH3, [id number], CMP, SHAMA, FE and TIBC, LIPID, FSH, T3F, CUU, [id number], UA, CBC #### [address] #### ESTRADIOL, LH #### [facility] , Lymphocytes/100 WBC (Bld) 26.1 % Normal . [facility] Comment on above: Order Comment: Reaso n for Exam Microscopic hematuria Name Collection Type:: Voided Performed By: #### T SH3, [id number], CMP, SHAMA, FE and TIBC, LIPID, FSH, T3F, CUU, [id number], UA, CBC #### [address] #### ESTRADIOL, LH #### [facility] , MCH (RBC) [Entitic mass] 30.8 pg Normal 24.7-34.3 [facility] Comment on above: Order Comment: Reaso n for Exam Microscopic hematuria Name Collection Type:: Voided Performed By: #### T SH3, [id number], CMP, SHAMA, FE and TIBC, LIPID, FSH, T3F, CUU, [id number], UA, CBC #### [address] #### ESTRADIOL, LH #### [facility] , MCV (RBC) [Entitic vol] 93.0 fL Normal 80-100 [facility] Comment on above: Order Comment: Reaso n for Exam Microscopic hematuria Name Collection Type:: Voided Performed By: #### T SH3, [id number], CMP, SHAMA, FE and TIBC, LIPID, FSH, T3F, CUU, [id number], UA, CBC #### [address] #### ESTRADIOL, LH #### [facility] , Mean Corpuscular HGB Conc 33.1 g/dL Normal 32.0-35.0 [facility] Comment on above: Order Comment: Reaso n for Exam Microscopic hematuria Name Collection Type:: Voided Performed By: #### T SH3, [id number], CMP, SHAMA, FE and TIBC, LIPID, FSH, T3F, CUU, [id number], UA, CBC #### [place] [address] [place] #### ESTRADIOL, LH #### [facility] , Monocytes (Bld) [#/Vol] 0.7 10*3/uL Normal 0.0-0.8 [facility] Comment on above: Order Comment: Reaso n for Exam Microscopic hematuria Name Collection Type:: Voided Performed By: #### T SH3, [id number], CMP, SHAMA, FE and TIBC, LIPID, FSH, T3F, CUU, [id number], UA, CBC #### [place] [address] [place] #### ESTRADIOL, LH #### [facility] , Monocytes/100 WBC (Bld) 10.1 % Normal . [facility] Comment on above: Order Comment: Reaso n for Exam Microscopic hematuria Name Collection Type:: Voided Performed By: #### T SH3, [id number], CMP, SHAMA, FE and TIBC, LIPID, FSH, T3F, CUU, [id number], UA, CBC #### [place] [address] [place] #### ESTRADIOL, LH #### [facility] , Neutrophils (Bld) [#/Vol] 4.1 10*3/uL Normal 1.8-7.7 [facility] Comment on above: Order Comment: Reaso n for Exam Microscopic hematuria Name Collection Type:: Voided Performed By: #### T SH3, [id number], CMP, SHAMA, FE and TIBC, LIPID, FSH, T3F, CUU, [id number], UA, CBC #### [place] [address] [place] #### ESTRADIOL, LH #### [facility] , Neutrophils/100 WBC (Bld) 61.5 % Normal . [facility] Comment on above: Order Comment: Reaso n for Exam Microscopic hematuria Name Collection Type:: Voided Performed By: #### T SH3, [id number], CMP, SHAMA, FE and TIBC, LIPID, FSH, T3F, CUU, [id number], UA, CBC #### [place] [address] [place] #### ESTRADIOL, LH #### [facility] , NRBC% 0.1 /100{WBC} Normal 0-0.5 [facility] Comment on above: Order Comment: Reaso n for Exam Microscopic hematuria Name Collection Type:: Voided Performed By: #### T SH3, [id number], CMP, SHAMA, FE and TIBC, LIPID, FSH, T3F, CUU, [id number], UA, CBC #### [place] [address] [place] #### ESTRADIOL, LH #### [facility] , Platelet mean volume (Bld) [Entitic vol] 8.4 fL Normal 6.3-10.7 [facility] Comment on above: Order Comment: Reaso n for Exam Microscopic hematuria Name Collection Type:: Voided Performed By: #### T SH3, [id number], CMP, SHAMA, FE and TIBC, LIPID, FSH, T3F, CUU, [id number], UA, CBC #### [address] #### ESTRADIOL, LH #### [facility] , Platelets (Bld) [#/Vol] 460 10*3/uL High 150-450 [facility] Comment on above: Order Comment: Reaso n for Exam Microscopic hematuria Name Collection Type:: Voided Performed By: #### T SH3, [id number], CMP, SHAMA, FE and TIBC, LIPID, FSH, T3F, CUU, [id number], UA, CBC #### [place] [address] [place] #### ESTRADIOL, LH #### [facility] , RBC (Bld) [#/Vol] 4.09 10*6/uL Normal 3.60-5.00 [facility] Comment on above: Order Comment: Reaso n for Exam Microscopic hematuria Name Collection Type:: Voided Performed By: #### T SH3, [id number], CMP, SHAMA, FE and TIBC, LIPID, FSH, T3F, CUU, [id number], UA, CBC #### [address] #### ESTRADIOL, LH #### [facility] , WBC (Bld) [#/Vol] 6.6 10*3/uL Normal 3.8-11.6 [facility] Comment on above: Order Comment: Reaso n for Exam Microscopic hematuria Name Collection Type:: Voided Performed By: #### T SH3, [id number], CMP, SHAMA, FE and TIBC, LIPID, FSH, T3F, CUU, [id number], UA, CBC #### [address] #### ESTRADIOL, LH #### [facility] , Comprehensive Metabolic Pane hema 03-27-2024 Albumin [Mass/Vol] 4.2 g/dL Normal 3.5-5.7 [facility] Comment on above: Order Comment: Reaso n for Exam Microscopic hematuria Name Collection Type:: Voided Performed By: #### T SH3, [id number], CMP, SHAMA, FE and TIBC, LIPID, FSH, T3F, CUU, [id number], UA, CBC #### [address] #### ESTRADIOL, LH #### [facility] , Albumin/Globulin [Mass ratio] 1.6 {ratio} Normal [facility] Comment on above: Order Comment: Reaso n for Exam Microscopic hematuria Name Collection Type:: Voided Performed By: #### T SH3, [id number], CMP, SHAMA, FE and TIBC, LIPID, FSH, T3F, CUU, [id number], UA, CBC #### [place] [address] [place] #### ESTRADIOL, LH #### [facility] , ALP [Catalytic activity/Vol] 109 U/L High 34-104 [facility] Comment on above: Order Comment: Reaso n for Exam Microscopic hematuria Name Collection Type:: Voided Performed By: #### T SH3, [id number], CMP, SHAMA, FE and TIBC, LIPID, FSH, T3F, CUU, [id number], UA, CBC #### [place] [address] [place] #### ESTRADIOL, LH #### [facility] , ALT [Catalytic activity/Vol] 28 U/L Normal 7-52 [facility] Comment on above: Order Comment: Reaso n for Exam Microscopic hematuria Name Collection Type:: Voided Performed By: #### T SH3, [id number], CMP, SHAMA, FE and TIBC, LIPID, FSH, T3F, CUU, [id number], UA, CBC #### [address] #### ESTRADIOL, LH #### [facility] , Anion gap [Moles/Vol] 11.9 mmol/L Normal 6.0-15.0 [facility] Comment on above: Order Comment: Reaso n for Exam Microscopic hematuria Name Collection Type:: Voided Performed By: #### T SH3, [id number], CMP, SHAMA, FE and TIBC, LIPID, FSH, T3F, CUU, [id number], UA, CBC #### [place] [address] [place] #### ESTRADIOL, LH #### [facility] , AST [Catalytic activity/Vol] 24 U/L Normal 13-39 [facility] Comment on above: Order Comment: Reaso n for Exam Microscopic hematuria Name Collection Type:: Voided Performed By: #### T SH3, [id number], CMP, SHAMA, FE and TIBC, LIPID, FSH, T3F, CUU, [id number], UA, CBC #### [place] [address] [place] #### ESTRADIOL, LH #### [facility] , Bilirubin [Mass/Vol] 0.4 mg/dL Normal 0.3-1.0 [facility] Comment on above: Order Comment: Reaso n for Exam Microscopic hematuria Name Collection Type:: Voided Performed By: #### T SH3, [id number], CMP, SHAMA, FE and TIBC, LIPID, FSH, T3F, CUU, [id number], UA, CBC #### [place] [address] [place] #### ESTRADIOL, LH #### [facility] , Calcium [Mass/Vol] 9.6 mg/dL Normal 8.6-10.3 [facility] Comment on above: Order Comment: Reaso n for Exam Microscopic hematuria Name Collection Type:: Voided Performed By: #### T SH3, [id number], CMP, SHAMA, FE and TIBC, LIPID, FSH, T3F, CUU, [id number], UA, CBC #### [address] #### ESTRADIOL, LH #### [facility] , Chloride [Moles/Vol] 103 mmol/L Normal 98-107 [facility] Comment on above: Order Comment: Reaso n for Exam Microscopic hematuria Name Collection Type:: Voided Performed By: #### T SH3, [id number], CMP, SHAMA, FE and TIBC, LIPID, FSH, T3F, CUU, [id number], UA, CBC #### [place] [address] [place] #### ESTRADIOL, LH #### [facility] , CO2 [Moles/Vol] 29.8 mmol/L Normal 21.0-31.0 [facility] Comment on above: Order Comment: Reaso n for Exam Microscopic hematuria Name Collection Type:: Voided Performed By: #### T SH3, [id number], CMP, SHAMA, FE and TIBC, LIPID, FSH, T3F, CUU, [id number], UA, CBC #### [place] [address] [place] #### ESTRADIOL, LH #### [facility] , Creatinine [Mass/Vol] 0.79 mg/dL Normal 0.60-1.20 [facility] Comment on above: Order Comment: Reaso n for Exam Microscopic hematuria Name Collection Type:: Voided Performed By: #### T SH3, [id number], CMP, SHAMA, FE and TIBC, LIPID, FSH, T3F, CUU, [id number], UA, CBC #### [place] [address] [place] #### ESTRADIOL, LH #### [facility] , GFR/1.73 sq M.predicted MDRD (S/P/Bld) [Vol rate/Area] mL/min/{1.73_m2} Normal [facility] Comment on above: Order Comment: Reaso n for Exam Microscopic hematuria Name Collection Type:: Voided Performed By: #### T SH3, [id number], CMP, SHAMA, FE and TIBC, LIPID, FSH, T3F, CUU, [id number], UA, CBC #### [place] [address] [place] #### ESTRADIOL, LH #### [facility] , Globulin (S) [Mass/Vol] 2.7 g/dL Normal [facility] Comment on above: Order Comment: Reaso n for Exam Microscopic hematuria Name Collection Type:: Voided Performed By: #### T SH3, [id number], CMP, SHAMA, FE and TIBC, LIPID, FSH, T3F, CUU, [id number], UA, CBC #### [place] [address] [place] #### ESTRADIOL, LH #### [facility] , Glucose [Mass/Vol] 98 mg/dL Normal 70-100 [facility] Comment on above: Order Comment: Reaso n for Exam Microscopic hematuria Name Collection Type:: Voided Result Comment: [place] Glucose Reference Range is dependent on time and content of last meal. Glucose of more than 200 mg/dL in a nonstressed, ambulatory subject supports the diagnosis of Diabetes Mellitus. ADA recommended reference range Performed By: #### T SH3, [id number], CMP, SHAMA, FE and TIBC, LIPID, FSH, T3F, CUU, [id number], UA, CBC #### [address] #### ESTRADIOL, LH #### [facility] , Potassium [Moles/Vol] 4.7 mmol/L Normal 3.5-5.1 [facility] Comment on above: Order Comment: Reaso n for Exam Microscopic hematuria Name Collection Type:: Voided Performed By: #### T SH3, [id number], CMP, SHAMA, FE and TIBC, LIPID, FSH, T3F, CUU, [id number], UA, CBC #### [address] #### ESTRADIOL, LH #### [facility] , Protein [Mass/Vol] 6.9 g/dL Normal 6.4-8.9 [facility] Comment on above: Order Comment: Reaso n for Exam Microscopic hematuria Name Collection Type:: Voided Performed By: #### T SH3, [id number], CMP, SHAMA, FE and TIBC, LIPID, FSH, T3F, CUU, [id number], UA, CBC #### [address] #### ESTRADIOL, LH #### [facility] , Sodium [Moles/Vol] 140 mmol/L Normal 136-145 [facility] Comment on above: Order Comment: Reaso n for Exam Microscopic hematuria Name Collection Type:: Voided Performed By: #### T SH3, [id number], CMP, SHAMA, FE and TIBC, LIPID, FSH, T3F, CUU, [id number], UA, CBC #### [place] [address] [place] #### ESTRADIOL, LH #### [facility] , Urea nitrogen [Mass/Vol] 12 mg/dL Normal 7-25 [facility] Comment on above: Order Comment: Reaso n for Exam Microscopic hematuria Name Collection Type:: Voided Performed By: #### T SH3, [id number], CMP, SHAMA, FE and TIBC, LIPID, FSH, T3F, CUU, [id number], UA, CBC #### [place] [address] [place] #### ESTRADIOL, LH #### [facility] , Dipstick and Microscopicon 1 05-28-2023 Appearance (U) Clear Normal Clear [facility] Comment on above: Order Comment: Reaso n for Exam Microscopic hematuria Name Collection Type:: Voided Performed By: #### T SH3, [id number], CMP, SHAMA, FE and TIBC, LIPID, FSH, T3F, CUU, [id number], UA, CBC #### [address] #### ESTRADIOL, LH #### [facility] , Bacteria,Urine Rare Normal None Seen [facility] Comment on above: Order Comment: Reaso n for Exam Microscopic hematuria Name Collection Type:: Voided Performed By: #### T SH3, [id number], CMP, SHAMA, FE and TIBC, LIPID, FSH, T3F, CUU, [id number], UA, CBC #### [address] #### ESTRADIOL, LH #### [facility] , Bilirubin,Urine Negative Normal Negative [facility] Comment on above: Order Comment: Reaso n for Exam Microscopic hematuria Name Collection Type:: Voided Performed By: #### T SH3, [id number], CMP, SHAMA, FE and TIBC, LIPID, FSH, T3F, CUU, [id number], UA, CBC #### [place] [address] [place] #### ESTRADIOL, LH #### [facility] , Color (U) Yellow Normal Yellow [facility] Comment on above: Order Comment: Reaso n for Exam Microscopic hematuria Name Collection Type:: Voided Performed By: #### T SH3, [id number], CMP, SHAMA, FE and TIBC, LIPID, FSH, T3F, CUU, [id number], UA, CBC #### [place] [address] [place] #### ESTRADIOL, LH #### [facility] , Glucose Ql (U) Normal Normal Normal [facility] Comment on above: Order Comment: Reaso n for Exam Microscopic hematuria Name Collection Type:: Voided Performed By: #### T SH3, [id number], CMP, SHAMA, FE and TIBC, LIPID, FSH, T3F, CUU, [id number], UA, CBC #### [place] [address] [place] #### ESTRADIOL, LH #### [facility] , Hyaline Casts,Urine None Normal 0-8 [facility] Comment on above: Order Comment: Reaso n for Exam Microscopic hematuria Name Collection Type:: Voided Performed By: #### T SH3, [id number], CMP, SHAMA, FE and TIBC, LIPID, FSH, T3F, CUU, [id number], UA, CBC #### [place] [address] [place] #### ESTRADIOL, LH #### [facility] , Ketones Ql (U) Negative Normal Negative [facility] Comment on above: Order Comment: Reaso n for Exam Microscopic hematuria Name Collection Type:: Voided Performed By: #### T SH3, [id number], CMP, SHAMA, FE and TIBC, LIPID, FSH, T3F, CUU, [id number], UA, CBC #### [place] [address] [place] #### ESTRADIOL, LH #### [facility] , Leukocyte esterase Test strip Ql (U) 2+ High Negative [facility] Comment on above: Order Comment: Reaso n for Exam Microscopic hematuria Name Collection Type:: Voided Performed By: #### T SH3, [id number], CMP, SHAMA, FE and TIBC, LIPID, FSH, T3F, CUU, [id number], UA, CBC #### [place] [address] [place] #### ESTRADIOL, LH #### [facility] , Mucus,Urine 2+ Critically abnormal [facility] Comment on above: Order Comment: Reaso n for Exam Microscopic hematuria Name Collection Type:: Voided Result Comment: PERF ORMED BY: [place] [address] PATHOLOGIST BOTTLE CAPPING MACHINE OPERATOR ОЛЬГА HULL M.D. Performed By: #### T SH3, [id number], CMP, SHAMA, FE and TIBC, LIPID, FSH, T3F, CUU, [id number], UA, CBC #### [address] #### ESTRADIOL, LH #### [facility] , Nitrite,Urine Negative Normal Negative [facility] Comment on above: Order Comment: Reaso n for Exam Microscopic hematuria Name Collection Type:: Voided Performed By: #### T SH3, [id number], CMP, SHAMA, FE and TIBC, LIPID, FSH, T3F, CUU, [id number], UA, CBC #### [address] #### ESTRADIOL, LH #### [facility] , Occult Blood,Urine Trace High Negative [facility] Comment on above: Order Comment: Reaso n for Exam Microscopic hematuria Name Collection Type:: Voided Result Comment: PERF ORMED BY: [place] [address] PATHOLOGIST BOTTLE CAPPING MACHINE OPERATOR ОЛЬГА HULL M.D. Performed By: #### T SH3, [id number], CMP, SHAMA, FE and TIBC, LIPID, FSH, T3F, CUU, [id number], UA, CBC #### [place] [address] [place] #### ESTRADIOL, LH #### [facility] , pH (U) 6.0 [pH] Normal 5.0-9.0 [facility] Comment on above: Order Comment: Reaso n for Exam Microscopic hematuria Name Collection Type:: Voided Performed By: #### T SH3, [id number], CMP, SHAMA, FE and TIBC, LIPID, FSH, T3F, CUU, [id number], UA, CBC #### [place] [address] [place] #### ESTRADIOL, LH #### [facility] , Protein,Urine Negative Normal Negative [facility] Comment on above: Order Comment: Reaso n for Exam Microscopic hematuria Name Collection Type:: Voided Performed By: #### T SH3, [id number], CMP, SHAMA, FE and TIBC, LIPID, FSH, T3F, CUU, [id number], UA, CBC #### [place] [address] [place] #### ESTRADIOL, LH #### [facility] , RBC,Urine 1 [HPF] Normal 0-4 [facility] Comment on above: Order Comment: Reaso n for Exam Microscopic hematuria Name Collection Type:: Voided Performed By: #### T SH3, [id number], CMP, SHAMA, FE and TIBC, LIPID, FSH, T3F, CUU, [id number], UA, CBC #### [place] [address] [place] #### ESTRADIOL, LH #### [facility] , Specificy Lipan,Urine 1.020 Normal 1.001-1.030 [facility] Comment on above: Order Comment: Reaso n for Exam Microscopic hematuria Name Collection Type:: Voided Performed By: #### T SH3, [id number], CMP, SHAMA, FE and TIBC, LIPID, FSH, T3F, CUU, [id number], UA, CBC #### [place] [address] [place] #### ESTRADIOL, LH #### [facility] , Squamous Epithelial Cell,Urine 3 [HPF] High 0-2 [facility] Comment on above: Order Comment: Reaso n for Exam Microscopic hematuria Name Collection Type:: Voided Performed By: #### T SH3, [id number], CMP, SHAMA, FE and TIBC, LIPID, FSH, T3F, CUU, [id number], UA, CBC #### [facility] [address] [place] [address] [place] #### ESTRADIOL, LH #### [facility] , Urobilinogen,Urine Normal Normal Normal [facility] Comment on above: Order Comment: Reaso n for Exam Microscopic hematuria Name Collection Type:: Voided Performed By: #### T SH3, [id number], CMP, SHAMA, FE and TIBC, LIPID, FSH, T3F, CUU, [id number], UA, CBC #### [place] [address] [place] #### ESTRADIOL, LH #### [facility] , WBC,Urine 3 [HPF] Normal 0-4 [facility] Comment on above: Order Comment: Reaso n for Exam Microscopic hematuria Name Collection Type:: Voided Performed By: #### T SH3, [id number], CMP, SHAMA, FE and TIBC, LIPID, FSH, T3F, CUU, [id number], UA, CBC #### [place] [address] [place] #### ESTRADIOL, LH #### [facility] , Free T4 (Free Thyroxine)on 05-28-2023 Free T4 [Mass/Vol] 0.82 ng/dL Normal 0.61-1.12 [facility] Comment on above: Order Comment: Reaso n for Exam Hot flashes Performed By: #### T SH3, [id number], CMP, SHAMA, FE and TIBC, LIPID, FSH, T3F, CUU, [id number], UA, CBC #### [address] [address] [place] #### ESTRADIOL, LH #### [facility] , Letter (Out)on 03-27-2024 Letter (Out) [id number] RafaIseal Butts 1970 F Date Provider Department Center 03/27/2024 [facility] SURG [place] Family History Problem Relation Age of Onset Coronary artery disease Mother Hypertension Mother Other Father Hypertension Father Other Daughter Comments: 05/2023 drug overdose Family Status - Relation Status Age at Mother Father Daughter Normal [facility] Lipid Panelon 03-27-2024 Cholesterol [Mass/Vol] 141 mg/dL Normal 140-200 Th e [facility] Comment on above: Order Comment: Reaso n for Exam Hot flashes Result Comment: Chol less than 200 mg/dl low risk Chol 201-239 mg/dl borderline risk Chol 240 mg/dl and greater high risk Performed By: #### T SH3, [id number], CMP, SHAMA, FE and TIBC, LIPID, FSH, T3F, CUU, [id number], UA, CBC #### [facility] [address] [place] [address] [place] #### ESTRADIOL, LH #### [facility] , Cholesterol in HDL [Mass/Vol] 36 mg/dL Normal 23-92 [facility] Comment on above: Order Comment: Reaso n for Exam Hot flashes Result Comment: HDL CHOL ATP-III CLASSIFICATION Cardiovascular Risk HDL > or equal to 60 mg/dL LOW HDL < 40 mg/dL HIGH Performed By: #### T SH3, [id number], CMP, SHAMA, FE and TIBC, LIPID, FSH, T3F, CUU, [id number], UA, CBC #### [facility] [address] [place] [address] [place] #### ESTRADIOL, LH #### [facility] , Cholesterol.total/Adela sterol in HDL [Mass ratio] 3.9 {ratio} Normal <5.0 [facility] Comment on above: Order Comment: Reaso n for Exam Hot flashes Performed By: #### T SH3, [id number], CMP, SHAMA, FE and TIBC, LIPID, FSH, T3F, CUU, [id number], UA, CBC #### [place] [address] [place] #### ESTRADIOL, LH #### [facility] , LDL Cholesterol,Calculated 78 mg/dL Normal 0-100 [facility] Comment on above: Order Comment: Reaso n for Exam Hot flashes Result Comment: LDL ATP III CLASSIFICATION LDL less than 100 mg/dL Optimal LDL 100-129 mg/dL Near or above optimal LDL 130-159 mg/dL Borderline high LDL 160-189 mg/dL High LDL greater than 189 mg/dL Very high Performed By: #### T SH3, [id number], CMP, SHAMA, FE and TIBC, LIPID, FSH, T3F, CUU, [id number], UA, CBC #### [address] #### ESTRADIOL, LH #### [facility] , Triglyceride w/Reflex 136 mg/dL Normal 0-149 [facility] Comment on above: Order Comment: Reaso n for Exam Hot flashes Result Comment: TRIG ATP III CLASSIFICATION TRIG less than 150 mg/dL Normal TRIG 150-199 mg/dL Borderline high TRIG 200-500 mg/dL High TRIG greater than 500 mg/dL Very high Standard traceable to the Center for Disease Conrtrol and Prevention (CDC) test method. Performed By: #### T SH3, [id number], CMP, SHAMA, FE and TIBC, LIPID, FSH, T3F, CUU, [id number], UA, CBC #### [place] [address] [place] #### ESTRADIOL, LH #### [facility] , VLDL CHOLESTEROL 27 mg/dL Normal [facility] Comment on above: Order Comment: Reaso n for Exam Hot flashes Performed By: #### T SH3, [id number], CMP, SHAMA, FE and TIBC, LIPID, FSH, T3F, CUU, [id number], UA, CBC #### [place] [id number] [place] #### ESTRADIOL, LH #### [facility] , MicroAlb Creat Ratio,Uon Albumin DL <= 20 mg/L (U) [Mass/Vol] 0.8 mg/dL Normal 0.0-1.8 [facility] Comment on above: Order Comment: Reaso n for Exam Microscopic hematuria Name Collection Type:: Voided Performed By: #### T SH3, [id number], CMP, SHAMA, FE and TIBC, LIPID, FSH, T3F, CUU, [id number], UA, CBC #### [address] #### ESTRADIOL, LH #### [facility] , Creatinine, Urine (Random) 177.00 mg/dL Normal [facility] Comment on above: Order Comment: Reaso n for Exam Microscopic hematuria Name Collection Type:: Voided Result Comment: No r eference range established Performed By: #### T SH3, [id number], CMP, SHAMA, FE and TIBC, LIPID, FSH, T3F, CUU, [id number], UA, CBC #### [address] #### ESTRADIOL, LH #### [facility] , Microalbumin/Creatinine Ratio 4.5 mg/g Normal 0.0-30.0 [facility] Comment on above: Order Comment: Reaso n for Exam Microscopic hematuria Name Collection Type:: Voided Result Comment: 30-3 00 mg/g indicates an increased risk for diabetic nephropathy. Greater than 300 mg/g is consistent with clinical nephropathy. (Am. J. Kidney Disease 1995, 25:107) PERFORMED BY: [place] [address] PATHOLOGIST BOTTLE CAPPING MACHINE OPERATOR ОЛЬГА HULL M.D. Performed By: #### T SH3, [id number], CMP, SHAMA, FE and TIBC, LIPID, FSH, T3F, CUU, [id number], UA, CBC #### [place] [id number] [facility] #### ESTRADIOL, LH #### [facility] , Orders Onlyon 03-27-2024 Orders Only [id number] Isela Craig 1970 F Date Provider Department Center 03/27/2024 [facility] SURG Second Fl Family History Problem Relation Age of Onset Coronary artery disease Mother Hypertension Mother Other Father Hypertension Father Other Daughter Comments: 05/2023 drug overdose Family Status - Relation Status Age at Mother Father Daughter Normal [facility] Thyroid Stimulating Hormoneo n 03-27-2024 TSH Qn 0.78 m[IU]/L Normal 0.45-5.33 [facility] Comment on above: Order Comment: Reaso n for Exam Hot flashes Performed By: #### T SH3, [id number], CMP, SHAMA, FE and TIBC, LIPID, FSH, T3F, CUU, [id number], UA, CBC #### [address] #### ESTRADIOL, LH #### [facility] , Triiodothyronine (T3) Freeon 03-27-2024 Triiodothyronine (T3) Free 3.27 pg/mL Normal 2.50-3.90 [facility] Comment on above: Order Comment: Reaso n for Exam Hot flashes Result Comment: PERF ORMED BY: [place] [address] PATHOLOGIST BOTTLE CAPPING MACHINE OPERATOR ОЛЬГА HULL M.D. Performed By: #### T SH3, [id number], CMP, SHAMA, FE and TIBC, LIPID, FSH, T3F, CUU, [id number], UA, CBC #### [place] [address] [place] #### ESTRADIOL, LH #### [facility] , Urine Cultureon 03-27-2024 Bacteria identified Cx Nom (U) Reason for Exam Urinary frequency Urine No Growth 2 Days PERFORMED BY: [address] [place] [address] PATHOLOGIST BOTTLE CAPPING MACHINE OPERATOR ОЛЬГА HULL M.D. Normal [facility] Comment on above: Performed By: #### T SH3, [id number], CMP, SHAMA, FE and TIBC, LIPID, FSH, T3F, CUU, [id number], UA, CBC #### [address] #### ESTRADIOL, LH #### [facility] , Vitamin D 25 Hydroxy Totalon 03-27-2024 Vitamin D 25 Hydroxy Total 30.0 ng/mL Normal 30-100 [facility] Comment on above: Order Comment: Reaso n for Exam Hot flashes Result Comment: IDRIS MIN D STATUS 25(OH)VITAMIN D RANGE (ng/mL) Deficient <20 Insufficient 20 to <30 Sufficient 30 to 100 Reference: Baron MF,Suze NC, Abdiel MAXWELL, et al. Evaluation,treatment, and prevention of vitamin D deficiency; an Endocrine Society clinical practice guideline. JCEM. 2010; 96(7):1911-30. PERFORMED BY: [place] [address] PATHOLOGIST BOTTLE CAPPING MACHINE OPERATOR ОЛЬГА HULL M.D. Performed By: #### T SH3, [id number], CMP, SHAMA, FE and TIBC, LIPID, FSH, T3F, CUU, [id number], UA, CBC #### [place] [address] [place] #### ESTRADIOL, LH #### [facility] , Office Visiton 03-23-2024 Follow-up visit [id number] Isela Craig 1970 F Date Provider Department Center 03/23/2024 [facility] SURG Second Fl Family History Problem Relation Age of Onset Coronary artery disease Mother Hypertension Mother Other Father Hypertension Father Other Daughter Comments: 05/2023 drug overdose Family Status - Relation Status Age at Mother Father Daughter Level of Service:09657 [place] POSTOP FOLLOW UP VISIT RELATED TO ORIGINAL PX Reason for Visit and Comments: Post-op [483] - Patient is here today for a post op appt Removal of hardware L4-S1--screws and rods Normal [facility] Orders Onlyon 03-17-2024 Orders Only [id number] Isela Craig 1970 F Date Provider Department Center 03/17/2024 [facility] [place] Family History Problem Relation Age of Onset Coronary artery disease Mother Hypertension Mother Other Father Hypertension Father Other Daughter Comments: 05/2023 drug overdose Family Status - Relation Status Age at Mother Father Daughter Normal [facility] Refillon 03-16-2024 Refill [id number] Isela Craig 1970 F Date Provider Department Center 03/16/2024 [facility] 6AB None Family History Problem Relation Age of Onset Coronary artery disease Mother Hypertension Mother Other Father Hypertension Father Other Daughter Comments: 05/2023 drug overdose Family Status - Relation Status Age at Mother Father Daughter Reason for Visit and Comments: Med Refill [[id number]] [facility] 30on 03-10-2024 30 Face to face for shower chair and raised toilet seat: Needs shower chair and raised toilet seat due to safety deficits with mobility related activities of daily living. Deficits can be safely resolved with use of this durable medical equipment. Prescriptions were provided. Length of need: 99 months. Height: 165.1 cm. Weight: 70.7 kg. Normal [facility] BASIC METABOLIC PANELon 12-0 Anion gap [Moles/Vol] 10 mmol/L Normal 7-20 [facility] Comment on above: Performed By: #### L [id number] ####[facility] [place] [address] Calcium [Mass/Vol] 8.6 mg/dL Normal 8.6-10.3 [facility] Comment on above: Performed By: #### L [id number] ####[facility] [place] [address] Chloride [Moles/Vol] 108 mmol/L High 98-107 [facility] Comment on above: Performed By: #### L [id number] ####[facility] ([facility])[address] [place] [address] CO2 [Moles/Vol] 27 mmol/L Normal 21-31 [facility] Comment on above: Performed By: #### L [id number] ####[facility] ([facility])[address] [place] [address] Creatinine [Mass/Vol] 0.81 mg/dL Normal 0.60-1.20 [facility] Comment on above: Performed By: #### L [id number] ####[facility] ([facility])[address] [place] [address] GLOMERULAR FILTRATION RATE ML/MIN/1.73 SQ M.PREDICTED 87.3 mL/min/1.73m*2 Normal >60.0 [facility] Comment on above: Result Comment: [facility]???s estimated glomerular filtration rate (eGFR) will no [...] of individuals. Performed By: #### L [id number] ####[facility] ([facility])[address] [place] [address] Glucose [Mass/Vol] 103 mg/dL High 70-100 [facility] Comment on above: Performed By: #### L [id number] ####[facility] ([facility])[address] [place] [address] Potassium [Moles/Vol] 3.8 mmol/L Normal 3.5-5.1 [facility] Comment on above: Performed By: #### L [id number] ####[facility] ([facility])[address] [place] [address] Sodium [Moles/Vol] 141 mmol/L Normal 136-145 [facility] Comment on above: Performed By: #### L [id number] ####[facility] ([facility])[address] [place] [address] Urea nitrogen [Mass/Vol] 8 mg/dL Normal 7-25 [facility] Comment on above: Performed By: #### L [id number] ####[facility] ([facility])[address] [place] [address] UREA NITROGEN/CREATININE (MASS RATIO) IN SER/PLAS 9.9 Normal [facility] Comment on above: Performed By: #### L [id number] ####[facility] ([facility])[address] [place] [address] CBC WITH AUTO DIFFERENTIALon 03-10-2024 Basophils (Bld) [#/Vol] 0.01 10*3/uL Normal 0.00-0.20 [facility] Comment on above: Performed By: #### L [id number] #### [facility] ([facility]) [address] [place] [address] Basophils/100 WBC (Bld) 0.1 % Normal 0.0-1.0 [facility] Comment on above: Performed By: #### L [id number] #### [facility] ([facility]) [address] [place] [address] Eosinophils (Bld) [#/Vol] 0.21 10*3/uL Normal 0.00-0.50 [facility] Comment on above: Performed By: #### L [id number] #### [facility] ([facility]) [address] [place] [address] Eosinophils/100 WBC (Bld) 2.9 % Normal 0.0-6.0 [facility] Comment on above: Performed By: #### L [id number] #### [facility] ([facility]) [address] [place] [address] Erythrocyte distribution width (RBC) [Ratio] 13.7 % Normal 11.5-15.0 [facility] Comment on above: Performed By: #### L [id number] #### [facility] ([facility]) [address] [place] [address] ERYTHROCYTE MEAN CORPUSCULAR HEMOGLOBIN CONCENTRATION (G/DL) BY AUTOMATED 33.3 g/dL Normal 32.0-35.0 [facility] Comment on above: Performed By: #### L [id number] #### [facility] ([facility]) [address] [place] [address] Hematocrit (Bld) [Volume fraction] 35.7 % Low 36.0-48.0 [facility] Comment on above: Performed By: #### L [id number] #### [facility] ([facility]) [address] [place] [address] Hemoglobin (Bld) [Mass/Vol] 11.9 g/dL Low 12.0-15.0 [facility] Comment on above: Performed By: #### L [id number] #### [facility] ([facility]) [address] [place] [address] Immature granulocytes (Bld) [#/Vol] 0.02 10*3/uL Normal 0.00-0.20 [facility] Comment on above: Performed By: #### L [id number] #### [facility] ([facility]) [address] [place] [address] Immature granulocytes/100 WBC (Bld) 0.3 % Normal 0.0-1.0 [facility] Comment on above: Performed By: #### L [id number] #### [facility] [address] [place] [address] Lymphocytes (Bld) [#/Vol] 0.74 10*3/uL Low 1.20-4.00 [facility] Comment on above: Performed By: #### L [id number] #### [facility] [address] [place] [address] Lymphocytes/100 WBC (Bld) 10.3 % Low 20.0-45.0 [facility] Comment on above: Performed By: #### L [id number] #### [facility] ([facility]) [address] [place] [address] MCH (RBC) [Entitic mass] 30.7 pg Normal 27.0-33.0 [facility] Comment on above: Performed By: #### L [id number] #### [facility] ([facility]) [address] [place] [address] MCV (RBC) [Entitic vol] 92.2 fL Normal 82.0-98.0 [facility] Comment on above: Performed By: #### L [id number] #### [facility] ([facility]) [address] [place] [address] Monocytes (Bld) [#/Vol] 1.01 10*3/uL High 0.10-1.00 [facility] Comment on above: Performed By: #### L [id number] #### [facility] ([facility]) [address] [place] [address] Monocytes/100 WBC (Bld) 14.0 % High 5.0-12.0 [facility] Comment on above: Performed By: #### L [id number] #### [facility] ([facility]) [address] [place] [address] Neutrophils (Bld) [#/Vol] 5.22 10*3/uL Normal 1.60-7.60 [facility] Comment on above: Performed By: #### L [id number] #### [facility] ([facility]) [address] [place] [address] Neutrophils/100 WBC (Bld) 72.4 % High 40.0-72.0 [facility] Comment on above: Performed By: #### L [id number] #### [facility] ([facility]) [address] [place] [address] NRBC (PER 100 WBCS) BY AUTOMATED COUNT 0.0 % Normal 0 [facility] Comment on above: Performed By: #### L [id number] #### [facility] [address] [place] [address] PLATELETS (10*3/UL) IN BLOOD AUTOMATED COUNT 228 10*3/uL Normal 150-400 [facility] Comment on above: Performed By: #### L [id number] #### [facility] ([facility]) [address] [place] [address] RBC (Bld) [#/Vol] 3.87 10*6/uL Normal 3.80-5.00 [facility] Comment on above: Performed By: #### L [id number] #### [facility] ([facility]) [address] [place] [address] WBC (Bld) [#/Vol] 7.21 10*3/uL Normal 4.00-10.60 [facility] Comment on above: Performed By: #### L [id number] #### [facility] ([facility]) [address] [place] [address] DSon 03-10-2024 DS Admission Admitted 03/09/2024 for Loosening of hardware in spine. Discharge Diagnosis Loos[facility] hardware in spine ([facility]) Discharge Disposition Home or Self Care (01) [...] propylene glycol 99.5 % (not less than, [facility]) liquid external solution STOP taking these medications chlorhexidine 4 % external liquid Commonly known as: Hibiclens diazePAM 5 mg tablet Commonly known as: Valium traMADol 50 mg tablet Commonly known as: Ultram Where to Get Your Medications These medications were sent to [facility] - [address] [place] [address] [address] [facility] [place] [address], [facility] [address] docusate sodium 100 mg capsule ketorolac 10 [...] Codeine Hospital Course Admitted electively by Dr. Chavez 03/09/2024 for planned removal of L4-S1 hardware [...] Results L (more content not included)... Normal [facility] HPon 03-09-2024 HP H&P reviewed. The patient was examined and there are no changes to the H&P. Normal [facility] OPNOTEon 03-09-2024 OPNOTE Date: 03/09/2024 Location: [facility] OR Name: Isela Craig, : 1970, Diagnosis Pre-op Diagnosis * Loosening of hardware in spine ([facility]) [T84.498A] Post-op Diagnosis * Loosening of hardware in spine ([facility]) [T84.498A] Procedures * L4-S1 Removal of Hardware(Screws and Rods) [place] REMOVAL POSTERIOR SEGMENTAL INSTRUMENTATION [68283] Surgeons Primary: León Chavez MD Procedure Summary Anesthesia: General ASA: II Estimated Blood Loss: Minimal Drains: * None in log * Staff: Box Sealing Inspector: Tulio Peace RN Scrub Person: Pamela Rodriguez CST Analysis Director: Fatmata Don RN; Dashawn Lezama CSA Indications: [...] Attending Attestation: I performed the procedure. León Chavez [facility] OPNOTE L4-S1 Removal of Hardware(Screws and Rods) Operative Note Date: 03/09/2024 Location: [facility] OR Name: Isela Craig, : 1970, Diagnosis Pre-op Diagnosis * Loosening of hardware in spine (CMS/HCC) [T84.498A] Post-op Diagnosis * Loosening of hardware in spine (CMS/HCC) [T84.498A] Procedures * L4-S1 Removal of Hardware(Screws and Rods) [place] REMOVAL POSTERIOR SEGMENTAL INSTRUMENTATION [04830] Surgeons Primary: León Chavez MD Procedure Summary Anesthesia: General ASA: II Estimated Blood Loss: 100 cc Drains: * None in log * Staff: Box Sealing Inspector: Tulio Peace RN Scrub Person: Pamela Rodriguez CST Analysis Director: Fatmata Don RN; Dashawn Lezama CSA Indications: Isela Craig is an 53 y.o. female who is having surgery for Loosening of hardware in spine (CMS/HCC) [T84.498A]. She had undergone a L4-S1 posterior [...] rods were mobilized with a [employer] needle otr company driver and removed. The heads of each [...] reversed a (more content not included)... Normal [facility] POCT GLUCOSE METER UNSOLICIT ED RESULTSon 03-09-2024 Glucose [Mass/Vol] 95 mg/dL Normal 70-105 [facility] Comment on above: Order Comment: Waive d Testing in the ED is performed under the ED CLIA certificate #[id number]. Result Comment: syan ez Performed By: #### L [id number] #### [facility] [address] [place] [address] Glucose [Mass/Vol] 88 mg/dL Normal 70-105 [facility] Comment on above: Order Comment: Waive d Testing in the ED is performed under the ED CLIA certificate #[id number]. Result Comment: acle ment Performed By: #### L [id number] #### [facility] [address] [place] [address] Patient Letter FTon 2023 Patient Letter [facility] Patient Letter [facility] March 06, 2024 ISELA CRAIG [address] [place] [id number] : 1970 Dear Isela, You missed your [...] any future cancellations. Sincerely, [facility] [address], [place] [address] [facility] 36on 03-01-2024 36 Pt will not need new EKG, had one in [place] 1 year. [facility] 36on 02-28-2024 36 Called pt to discuss MSSA results. Pt states that she had her EKG done at [facility]. I called and spoke with Lawrence Cochran HIM. Pt had EKG done on 02/16/24, however, is not signed. Will call daily until signed and obtain EKG. Lawrence Cochran HIM: [phone]. [facility] 36 Discussed with pt. P t verbalized understanding. [facility] 36 CHG wash sent to pharmacy. LVM with pt to discuss. [facility] 36on 02-25-2024 36 +MSSA. I ordered the nasal povidone iodine for preop. She will need 5 days of chlorhexidine prior to OR. OR 03/09. Thank you. [facility] 36 Patient had voiced i n yesterday's pre op appointment that she had a recent EKG done at [facility]. Hose Inspector And Patcher reached out to [facility], they stated that the last one she had completed was on 12/14. Hose Inspector And Patcher called patient to notify her that she needs to get a new EKG completed and patient then said she had a recent one done at [facility]. Sending request to [phone] [facility] Prep for Procedureon 024 Prep for Procedure [id number] Isela Craig 1970 F Date Provider Department Center 02/25/2024 148-LIN [facility] SURG [place] Fl Family History Problem Relation Age of Onset Coronary artery disease Mother Hypertension Mother Other Father Hypertension Father Other Daughter Comments: 05/2023 drug overdose Family Status - Relation Status Age at Mother Father Daughter Normal [facility] Telephoneon 02-25-2024 Telephone [id number] RafaIsela Benjamín 1970 F Date Provider Department Center 02/25/2024 RICK VIRAMONTES [facility] SURG Second Fl Family History Problem Relation Age of Onset Coronary artery disease Mother Hypertension Mother Other Father Hypertension Father Other Daughter Comments: 05/2023 drug overdose Family Status - Relation Status Age at Mother Father Daughter [facility] Telephone [phone] Isela Craig 1970 Date Provider Department Center 02/25/2024 148-OVCHIKIS [facility] SURG Second Fl Family History Problem Relation Age of Onset Coronary artery disease Mother Hypertension Mother Other Father Hypertension Father Other Daughter Comments: 05/2023 drug overdose Family Status - Relation Status Age at Mother Father Daughter [facility] APTTon 02-24-2024 ACTIVATED PARTIAL THROMBOPLASTIN TIME IN PPP BY COAGULATION ASSAY 27.5 Seconds Normal 25.0-35.0 [facility] Comment on above: Result Comment: Clin ical significance of the APTT is questionable in the presence of heparin. Performed By: #### L [id number] #### [facility] ([facility]) [address] [place] [address] BASIC METABOLIC PANELon 02-04 Anion gap [Moles/Vol] 12 mmol/L Normal 7-20 [facility] Comment on above: Performed By: #### L [id number] #### [facility] ([facility]) [address] [place] [address] Calcium [Mass/Vol] 9.6 mg/dL Normal 8.6-10.3 [facility] Comment on above: Performed By: #### L [id number] #### [facility] [address] [place] [address] Chloride [Moles/Vol] 104 mmol/L Normal 98-107 [facility] Comment on above: Performed By: #### L [id number] #### [facility] ([facility]) [address] [place] [address] CO2 [Moles/Vol] 27 mmol/L Normal 21-31 [facility] Comment on above: Performed By: #### L [id number] #### [facility] ([facility]) [address] [place] [address] Creatinine [Mass/Vol] 0.77 mg/dL Normal 0.60-1.20 [facility] Comment on above: Performed By: #### L [id number] #### [facility] ([facility]) [address] [place] [address] GLOMERULAR FILTRATION RATE ML/MIN/1.73 SQ M.PREDICTED 92.8 mL/min/1.73m*2 Normal >60.0 [facility] Comment on above: Result Comment: [facility]???s estimated glomerular filtration rate (eGFR) will no [...] individuals. Performed By: #### L [id number] #### [facility] [address] [place] [address] Glucose [Mass/Vol] 83 mg/dL Normal 70-100 [facility] Comment on above: Performed By: #### L [id number] #### [facility] ([facility]) [address] [place] [address] Potassium [Moles/Vol] 3.6 mmol/L Normal 3.5-5.1 [facility] Comment on above: Performed By: #### L [id number] #### [facility] ([facility]) [address] [place] [address] Sodium [Moles/Vol] 139 mmol/L Normal 136-145 [facility] Comment on above: Performed By: #### L [id number] #### [facility] ([facility]) [address] [place] [address] Urea nitrogen [Mass/Vol] 12 mg/dL Normal 7-25 [facility] Comment on above: Performed By: #### L [id number] #### [facility] ([facility]) [address] [place] [address] UREA NITROGEN/CREATININE (MASS RATIO) IN SER/PLAS 15.6 Normal [facility] Comment on above: Performed By: #### L [id number] #### [facility] ([facility]) [address] [place] [address] CBC WITH AUTO DIFFERENTIALon 02-24-2024 Basophils (Bld) [#/Vol] 0.07 10*3/uL Normal 0.00-0.20 [facility] Comment on above: Performed By: #### L [id number] #### [facility] ([facility]) [address] [place] [address] Basophils/100 WBC (Bld) 0.8 % Normal 0.0-1.0 [facility] Comment on above: Performed By: #### L [id number] #### [facility] ([facility]) [address] [place] [address] Eosinophils (Bld) [#/Vol] 0.12 10*3/uL Normal 0.00-0.50 [facility] Comment on above: Performed By: #### L [id number] #### [facility] ([facility]) [address] [place] [address] Eosinophils/100 WBC (Bld) 1.4 % Normal 0.0-6.0 [facility] Comment on above: Performed By: #### L [id number] #### [facility] ([facility]) [address] [place] [address] Erythrocyte distribution width (RBC) [Ratio] 14.0 % Normal 11.5-15.0 [facility] Comment on above: Performed By: #### L [id number] #### [facility] ([facility]) [address] [place] [address] ERYTHROCYTE MEAN CORPUSCULAR HEMOGLOBIN CONCENTRATION (G/DL) BY AUTOMATED 33.0 g/dL Normal 32.0-35.0 [facility] Comment on above: Performed By: #### L [id number] #### [facility] ([facility]) [address] [place] [address] Hematocrit (Bld) [Volume fraction] 41.2 % Normal 36.0-48.0 [facility] Comment on above: Performed By: #### L [id number] #### [facility] ([facility]) [address] [address] Hemoglobin (Bld) [Mass/Vol] 13.6 g/dL Normal 12.0-15.0 [facility] Comment on above: Performed By: #### L [id number] #### [facility] ([facility]) [address] [address] Immature granulocytes (Bld) [#/Vol] 0.02 10*3/uL Normal 0.00-0.20 [facility] Comment on above: Performed By: #### L [id number] #### [facility]) [address] [address] Immature granulocytes/100 WBC (Bld) 0.2 % Normal 0.0-1.0 [facility] Comment on above: Performed By: #### L [id number] #### [facility]) [address] [address] Lymphocytes (Bld) [#/Vol] 2.59 10*3/uL Normal 1.20-4.00 [facility] Comment on above: Performed By: #### L [id number] #### [facility] [address] [place] [address] Lymphocytes/100 WBC (Bld) 29.7 % Normal 20.0-45.0 [facility] Comment on above: Performed By: #### L [id number] #### [facility] ([facility]) [address] [place] [address] MCH (RBC) [Entitic mass] 31.1 pg Normal 27.0-33.0 [facility] Comment on above: Performed By: #### L [id number] #### [facility] ([facility]) [address] [place] [address] MCV (RBC) [Entitic vol] 94.1 fL Normal 82.0-98.0 [facility] Comment on above: Performed By: #### L [id number] #### [facility] ([facility]) [address] [place] [address] Monocytes (Bld) [#/Vol] 0.99 10*3/uL Normal 0.10-1.00 [facility] Comment on above: Performed By: #### L [id number] #### [facility] ([facility]) [address] [place] [address] Monocytes/100 WBC (Bld) 11.4 % Normal 5.0-12.0 [facility] Comment on above: Performed By: #### L [id number] #### [facility] ([facility]) [address] [place] [address] Neutrophils (Bld) [#/Vol] 4.93 10*3/uL Normal 1.60-7.60 [facility] Comment on above: Performed By: #### L [id number] #### [facility] ([facility]) [address] [place] [address] Neutrophils/100 WBC (Bld) 56.5 % Normal 40.0-72.0 [facility] Comment on above: Performed By: #### L [id number] #### [facility] ([facility]) [address] [place] [address] NRBC (PER 100 WBCS) BY AUTOMATED COUNT 0.0 % Normal 0 [facility] Comment on above: Performed By: #### L [id number] #### [facility] ([facility]) [address] [place] [address] PLATELETS (10*3/UL) IN BLOOD AUTOMATED COUNT 388 10*3/uL Normal 150-400 [facility] Comment on above: Performed By: #### L [id number] #### [facility] ([facility]) [address] [place] [address] RBC (Bld) [#/Vol] 4.38 10*6/uL Normal 3.80-5.00 [facility] Comment on above: Performed By: #### L [id number] #### [facility] ([facility]) [address] [place] [address] WBC (Bld) [#/Vol] 8.72 10*3/uL Normal 4.00-10.60 [facility] Comment on above: Performed By: #### L [id number] #### [facility] ([facility]) [address] [place] [address] Consulton 02-24-2024 Consult [id number] Isela Craig 1970 F Date Provider Department Center 02/24/2024 CHLOE TOMLIN [facility] SURG Second Fl Family History Problem Relation Age of Onset Coronary artery disease Mother Hypertension Mother Other Father Hypertension Father Other Daughter Comments: 05/2023 drug overdose Family Status - Relation Status Age at Mother Father Daughter Level of Service:[id number] [place] OFFICE/OUTPATIENT NEW MODERATE MDM 45 MINUTES Reason for Visit and Comments: Pre-op Exam [018380] Normal [facility] HPon 02-24-2024 HP SUBJECTIVE: Chief complaint: Preoperative visit for removal of L4-S1 hardware scheduled for 03/09/[address] Chavez. History of present illness: Patient had a [...] Diagnosis Date Alcohol abuse Anxiety Bipolar disorder ([facility]) Chronic sinusitis Cocaine use 05/2023 COPD (chronic obstructive pulmonary disease) ([facility]) Coronary vasospasm ([facility]) Diverticulosis per CT 08/2023 Dyslipidemia Endometriosis Hypertension [...] propylene glycol 99.5 % (not less than, MCC) liquid external (more content not included)... Normal [facility] Labon 02-24-2024 Lab [id number] Isela Craig Benjamín 1970 F Date Provider Department Center 02/24/2024 2245-[facility] OPD LAB RESOURCE [facility] OPD [facility] Family History Problem Relation Age of Onset Coronary artery disease Mother Hypertension Mother Other Father Hypertension Father Other Daughter Comments: 05/2023 drug overdose Family Status - Relation Status Age at Mother Father Daughter Normal [facility] MRSA/MSSA DNA NASALon 2023 MRSA DNA Negative Normal Negative [facility] Comment on above: Order Comment: Testi ng [...] preclude nasal colonization. Performed By: #### L [id number] ####[facility] ([facility]ER)[address] [place] [address] MSSA DNA Positive Abnormal Negative [facility] Comment on above: Order Comment: Testi ng [...] preclude nasal colonization. Performed By: #### L [id number] ####[facility] ([facility])[address] [place] [address] PROTIME-INRon 02-24-2024 INR IN PPP BY COAGULATION ASSAY 1.02 Normal 0.90-1.10 [facility] Comment on above: Result Comment: ACCC P [...] 1995;108:231S-246S. Performed By: #### L [id number] #### [facility] ([facility]) [address] [place] [address] PROTHROMBIN TIME (PT) IN PPP BY COAGULATION ASSAY 13.4 Seconds Normal 12.3-14.8 [facility] Comment on above: Performed By: #### L [id number] #### [facility] ([facility]) [address] [place] [address] TYPE AND SCREENon 02-24-2024 AB SCREEN Negative Normal [facility] Comment on above: Performed By: #### L [id number] ####[facility] BLOOD BANK, ABO group Nom (Bld) A Normal [facility] Comment on above: Performed By: #### L [id number] ####[facility]OD [facility], RH TYPE IN BLOOD Positive Normal [facility] Comment on above: Performed By: #### L [id number] ####[facility], Event Monitoron 02-21-2024 Event Monitor [...] BY: Julien Cho MD ca Dictated: 02/19/2024 [id number] Transcribed: 02/20/2024 cc:Roosevelt Sotelo PA-C [facility] Comment on above: Result Comment: Elec tronically Signed By: Marquis PATRICK, Julien Clinton\.br\Date and Time Signed: 02/21/24 14:07 EST 36on 02-16-2024 36 Clearances are in media Normal [facility] Heart and Vascular Office/Cl inic Noteon 02-16-2024 [...] chest pain, shortness of breath, heart palpitations, dizziness/lightheaded ness, and swelling in lower legs. NOTE FROM [...] did not s (more content not included)... Normal [facility] Comment on above: Result Comment: Elec tronically Signed By: Deepak MOSES, Roosevelt Remy\mundo\Date and Time Signed: 11/13/24 10:06 EST 36on 02-11-2024 36 Spoke with PCP's office for status update on clearance. Message sent to PCP. [facility] 36 Called and spoke wit h PCP office to verify if they have received clearance request. The salon receptionist stated that she will send a message to the provider for status update. Verified fax number is correct. I provided my call back number if they need request to be refaxed. [facility] 36on 02-04-2024 36 Pt called and was scheduled. Aspirin hold clearance request faxed to PCP. [facility] 36 LVM for pt to call back to discuss who prescribes aspirin and to schedule surgery. [facility] 36on 02-02-2024 36 Discussed with patient that I had reviewed her imaging with Dr. Chavez. Note broken S1 screw. However, appears to [...] the hardware removed. Will work on arranging. [facility] Telephoneon 02-02-2024 Telephone [id number] Isela Craig 1970 Date Provider Department Center 02/02/2024 CHLOE TOMLIN [facility] SURG [facility] Family History Problem Relation Age of Onset Coronary artery disease Mother Hypertension Mother Other Father Hypertension Father Other Daughter Comments: 05/2023 drug overdose Family Status - Relation Status Age at Mother Father Daughter [facility] 36on 02-01-2024 36 Left message for patient to call back to discuss plan for her back. [facility] Telephoneon 02-01-2024 Telephone [id number] Isela Craig 1970 Date Provider Department [place] [facility]/20[facility] [place] Family History Problem Relation Age of Onset Coronary artery disease Mother Hypertension Mother Other Father Hypertension Father Other Daughter Comments: 05/2023 drug overdose Family Status - Relation Status Age at Mother Father Daughter Normal [facility] Follow-Upon 01-27-2024 Follow-Up [id number] Isela Craig 1970 F Date Provider Department Center 01/27/2024 148-LIN, [facility] SURG Second Fl Family History Problem Relation Age of Onset Coronary artery disease Mother Hypertension Mother Other Father Hypertension Father Other Daughter Comments: 05/2023 drug overdose Family Status - Relation Status Age at Mother Father Daughter Level of Service:61833 [place] OFFICE/OUTPATIENT ESTABLISHED MOD MDM 30 MIN Reason for Visit and Comments: Follow-up [700452] - Patient is here today for a follow up for back pain and reviewing her recent imaging Normal [facility] 36on 01-25-2024 36 H[employer] And Patcher saw that patient had no showed to todays imaging for CT and MRI. H[employer] Inspector And Patcher called patient to see if that was completed. She voiced that she got the imaging done at [facility] a couple weeks ago. Called [facility], they are pushing over imaging and sending over the reports. Normal [facility] US Carotid Duplex Bilateralo n 01-12-2024 US [...] Carotid Diagnostic Criteria Committee. Vascular Medicine 2020; https://journals.stacy pub.com/doi/full/10.1 177/4637176A751259710 Ordering Provider: Roosevelt Sotelo FINAL REPORT Dictated: 01/12/2024 1:18 pm Tulio Delgado DO Signed (Electronic Signature): 01/12/2024 1:18 pm Signed by: Tulio Delgado DO Transcribed by: CASEY Technologist: JENAE Technical Comments Velocities Right Vert. Antegrade Yes Technical Comments Velocities Left Vert. Antegrade Yes Normal [facility] 36on 01-06-2024 36 LVM for pt to notify. Normal [facility] Orders Onlyon 01-06-2024 Orders Only [id number] Isela Craig 1970 F Date Provider Department Center 01/06/2024 148-OVITT, CHLOE [facility] SURG Second Fl Family History Problem Relation Age of Onset Coronary artery disease Mother Hypertension Mother Other Father Hypertension Father Other Daughter Comments: 05/2023 drug overdose Family Status - Relation Status Age at Mother Father Daughter Normal [facility] 36on 01-05-2024 36 Pt called back stating that she had taken the medication prior to her original MRI that was scheduled. Per pt, Libia had a scheduling mix up. Pt was rescheduled for today. Pt states that she was going to try to do MRI without medication, but could not. Pt did say she had her CT done. Normal [facility] Orders Onlyon 01-05-2024 Orders Only [id number] Isela Craig 1970 F Date Provider Department Center 01/05/2024 CHLOE TOMLIN [facility] SURG Second Fl Family History Problem Relation Age of Onset Coronary artery disease Mother Hypertension Mother Other Father Hypertension Father Other Daughter Comments: 05/2023 drug overdose Family Status - Relation Status Age at Mother Father Daughter [facility] 36on 12-22-2023 36 Pt called and LVM requesting CT and MRI orders be faxed to [facility]. Pt has existing CT and MRI scheduled here at [facility]. I called and LVM with pt to notify of orders faxed to [facility], that she will need to bring disc of imaging to her follow up visit with Chloe Castillo CNP and to call [facility] radiology to cancel appointments. Follow up visit date and time and radiology scheduling number provided in VM. [facility] Consulton 12-14-2023 Consult [id number] Isela Craig 1970 F Date Provider Department Center 12/14/2023 CHLOE TOMLIN [facility] SURG Second Fl Family History Problem Relation Age of Onset Coronary artery disease Mother Hypertension Mother Other Father Hypertension Father Other Daughter Comments: 05/2023 drug overdose Family Status - Relation Status Age at Mother Father Daughter Level of Service:04663 [place] OFFICE/OUTPATIENT NEW MODERATE MDM 45 MINUTES Reason for Visit and Comments: Consult [484] - broken screw from past surgery. Pt will bring disc of Xr and MRI with her. [facility] MR lumbar spine wo conon MR lumbar spine wo con [facility] [place] [address] [place] [address] MRI Report Signed Patient: Isela Craig MR#: [id number] 851 : 1970 Acct:[id number] Age/Sex: 53 / F ADM Date: 12/02/23 [facility] [address] Attending Dr: Jes Cruz MAILING CLERK-C Copies to: Jes Cruz Ordering Provider: Jes [...] Bjorn Rdz M.D.12/02/2023 3:22 PM Dictation Location: [place] [address] Transcribed By: [facility] 12/02/23 1522 Dictated By: Bjorn Rdz II, MD 12/02/23 1512 Signed By: 12/02/23 1522 Normal [facility] Alanine aminotransferase [En zymatic activity/volume] in Serum or PlasmaOrdered By: Jes Cruz on 11-01-2023 ALT [Catalytic activity/Vol] 17 U/L Normal 7-52 [facility] Comment on above: Order Comment: Reaso n for Exam Primary hypertension Reason for Exam Low iron Reason for Exam Primary hypertension;Hypertriglyceridemia Reason for Exam Hot flashes Reason for Exam Vitamin D deficiency Performed By: #### T SH3, [id number], CMP, SHAMA, FE and TIBC, LIPID, FSH, T3F, CUU, [id number], UA, CBC #### [facility] [address] [place] [address] [place] #### ESTRADIOL, LH #### [facility] , Albumin [Mass/volume] in Ser um or Plasma by Bromocresol green (BCG) dye binding methoOrdered By: Jes Cruz on 11-01-2023 Albumin BCG dye [Mass/Vol] 4.3 g/dL 3.5-5.7 [facility] Alkaline phosphatase [Enzyma tic activity/volume] in Serum or PlasmaOrdered By: Jes Cruz on 11-01-2023 ALP [Catalytic activity/Vol] 87 U/L Normal 34-104 [facility] Comment on above: Order Comment: Reaso n for Exam Primary hypertension Reason for Exam Low iron Reason for Exam Primary hypertension;Hypertriglyceridemia Reason for Exam Hot flashes Reason for Exam Vitamin D deficiency Performed By: #### T SH3, [id number], CMP, SHAMA, FE and TIBC, LIPID, FSH, T3F, CUU, [id number], UA, CBC #### [facility] [address] [place] [address] [place] #### ESTRADIOL, LH #### [facility] , Aspartate aminotransferase [ Enzymatic activity/volume] in Serum or PlasmaOrdered By: Jes Cruz on 11-01-2023 AST [Catalytic activity/Vol] 13 U/L Normal 13-39 [facility] Comment on above: Order Comment: Reaso n for Exam Primary hypertension Reason for Exam Low iron Reason for Exam Primary hypertension;Hypertriglyceridemia Reason for Exam Hot flashes Reason for Exam Vitamin D deficiency Performed By: #### T SH3, [id number], CMP, SHAMA, FE and TIBC, LIPID, FSH, T3F, CUU, [id number], UA, CBC #### [facility] [address] [place] [address] [place] #### ESTRADIOL, LH #### [facility] , Automated basophil %Ordered By: Jes Anthony on 11-01-2023 Basophils/100 WBC (Bld) 1.1 % Normal . [facility] Comment on above: Order Comment: Reaso n for Exam Primary hypertension Performed By: #### T SH3, [id number], CMP, SHAMA, FE and TIBC, LIPID, FSH, T3F, CUU, [id number], UA, CBC #### [address] #### ESTRADIOL, LH #### [facility] , Automated basophil countOrde red By: Jes Cruz on 11-01-2023 Basophils (Bld) [#/Vol] 0.1 10*3/uL Normal 0.0-0.2 [facility] Comment on above: Order Comment: Reaso n for Exam Primary hypertension Result Comment: PERF ORMED BY: [place] [address] PATHOLOGIST BOTTLE CAPPING MACHINE OPERATOR PALOMO WESLEY M.D. Performed By: #### T SH3, [id number], CMP, SHAMA, FE and TIBC, LIPID, FSH, T3F, CUU, [id number], UA, CBC #### [address] #### ESTRADIOL, LH #### [facility] , Automated blood monocyte cou ntOrdered By: Jes Cruz on 11-01-2023 Monocytes (Bld) [#/Vol] 0.8 10*3/uL Normal 0.0-0.8 [facility] Comment on above: Order Comment: Reaso n for Exam Primary hypertension Performed By: #### T SH3, [id number], CMP, SHAMA, FE and TIBC, LIPID, FSH, T3F, CUU, [id number], UA, CBC #### [address] #### ESTRADIOL, LH #### [facility] , Automated eosinophil %Ordere d By: Jes Cruz on 11-01-2023 Eosinophils/100 WBC (Bld) 1.5 % Normal . [facility] Comment on above: Order Comment: Reaso n for Exam Primary hypertension Performed By: #### T SH3, [id number], CMP, SHAMA, FE and TIBC, LIPID, FSH, T3F, CUU, [id number], UA, CBC #### [facility] [address] [place] [address] [place] #### ESTRADIOL, LH #### [facility] , Automated eosinophil countOr dered By: Jes Cruz on 11-01-2023 Eosinophils (Bld) [#/Vol] 0.1 10*3/uL Normal 0.0-0.45 [facility] Comment on above: Order Comment: Reaso n for Exam Primary hypertension Performed By: #### T SH3, [id number], CMP, SHAMA, FE and TIBC, LIPID, FSH, T3F, CUU, [id number], UA, CBC #### [address] #### ESTRADIOL, LH #### [facility] , Automated monocyte %Ordered By: Jes Cruz on 11-01-2023 Monocytes/100 WBC (Bld) 10.8 % Normal . [facility] Comment on above: Order Comment: Reaso n for Exam Primary hypertension Performed By: #### T SH3, [id number], CMP, SHAMA, FE and TIBC, LIPID, FSH, T3F, CUU, [id number], UA, CBC #### [place] [address] [place] #### ESTRADIOL, LH #### [facility] , Automated neutrophil %Ordere d By: Jes Cruz on 11-01-2023 Neutrophils/100 WBC (Bld) 58.6 % Normal . [facility] Comment on above: Order Comment: Reaso n for Exam Primary hypertension Performed By: #### T SH3, [id number], CMP, SHAMA, FE and TIBC, LIPID, FSH, T3F, CUU, [id number], UA, CBC #### [facility] [address] [place] [address] #### ESTRADIOL, LH #### [facility] , Bilirubin Test strip Ql (U)O rdered By: Jes Cruz on 11-01-2023 Bilirubin Ql (U) Negative Negative [facility] Bilirubin.total [Mass/volume ] in Serum or PlasmaOrdered By: Jes Anthony on 11-01-2023 Bilirubin [Mass/Vol] 0.4 mg/dL Normal 0.3-1.0 [facility] Comment on above: Order Comment: Reaso n for Exam Primary hypertension Reason for Exam Low iron Reason for Exam Primary hypertension;Hypertriglyceridemia Reason for Exam Hot flashes Reason for Exam Vitamin D deficiency Performed By: #### T SH3, [id number], CMP, SHAMA, FE and TIBC, LIPID, FSH, T3F, CUU, [id number], UA, CBC #### [facility] [address] [place] [address] [place] #### ESTRADIOL, LH #### [facility] , Calcium [Mass/volume] in Ser um or PlasmaOrdered By: Jes Anthony on 11-01-2023 Calcium [Mass/Vol] 9.4 mg/dL Normal 8.6-10.3 [facility] Comment on above: Order Comment: Reaso n for Exam Primary hypertension Reason for Exam Low iron Reason for Exam Primary hypertension;Hypertriglyceridemia Reason for Exam Hot flashes Reason for Exam Vitamin D deficiency Performed By: #### T SH3, [id number], CMP, SHAMA, FE and TIBC, LIPID, FSH, T3F, CUU, [id number], UA, CBC #### [facility] [address] [place] [address] [place] #### ESTRADIOL, LH #### [facility] , Carbon dioxide, total [Moles /volume] in Serum or PlasmaOrdered By: Jesshama Tamezson on 11-01-2023 CO2 [Moles/Vol] 28.5 mmol/L Normal 21.0-31.0 [facility] Comment on above: Order Comment: Reaso n for Exam Primary hypertension Reason for Exam Low iron Reason for Exam Primary hypertension;Hypertriglyceridemia Reason for Exam Hot flashes Reason for Exam Vitamin D deficiency Performed By: #### T SH3, [id number], CMP, SHAMA, FE and TIBC, LIPID, FSH, T3F, CUU, [id number], UA, CBC #### [facility] [address] [place] [address] [place] #### ESTRADIOL, LH #### [facility] , Chloride [Moles/volume] in S shanna or PlasmaOrdered By: Jes Cruz on 11-01-2023 Chloride [Moles/Vol] 105 mmol/L Normal 98-107 [facility] Comment on above: Order Comment: Reaso n for Exam Primary hypertension Reason for Exam Low iron Reason for Exam Primary hypertension;Hypertriglyceridemia Reason for Exam Hot flashes Reason for Exam Vitamin D deficiency Performed By: #### T SH3, [id number], CMP, SHAMA, FE and TIBC, LIPID, FSH, T3F, CUU, [id number], UA, CBC #### [facility] [address] [place] [address] [place] #### ESTRADIOL, LH #### [facility] , Cholesterol [Mass/volume] in Serum or PlasmaOrdered By: Jes Cruz on 11-01-2023 Cholesterol [Mass/Vol] 285 mg/dL High 140-200 [facility] Comment on above: Chol less than 200 [...] greater high risk Performed By: #### T SH3, [id number], CMP, SHAMA, FE and TIBC, LIPID, FSH, T3F, CUU, [id number], UA, CBC #### [facility] [address] [place] [address] [place] #### ESTRADIOL, LH #### [facility] , Cholesterol in LDL Calc [Mas s/Vol]Ordered By: Jes Cruz on 11-01-2023 Cholesterol in LDL [Mass/Vol] 198 mg/dL High 0-100 [facility] Comment on above: LDL ATP III CLASSIFI CATIONLDL less than 100 mg/dL OptimalLDL 100-129 mg/dL Near or above optimalLDL 130-159 mg/dL Borderline highLDL 160-189 mg/dL HighLDL greater than 189 mg/dL Very high Cholesterol in VLDL Calc [Ma ss/Vol]Ordered By: Jes Cruz on 11-01-2023 Cholesterol in VLDL [Mass/Vol] 29 mg/dL [facility] Color of Urine by AutoOrdere d By: Jes Cruz on 11-01-2023 Color (U) Light-yellow Normal Yellow [facility] Comment on above: Order Comment: Reaso n for Exam Microscopic hematuria Name Collection Type:: Voided Performed By: #### T SH3, [id number], CMP, SHAMA, FE and TIBC, LIPID, FSH, T3F, CUU, [id number], UA, CBC #### [facility] [address] [place] [address] [place] #### ESTRADIOL, LH #### [facility] , Complete Blood Count Auto Di ffon 11-01-2023 Mean Corpuscular HGB Conc 33.6 g/dL Normal 32.0-35.0 [facility] Comment on above: Order Comment: Reaso n for Exam Primary hypertension Performed By: #### T SH3, [id number], CMP, SHAMA, FE and TIBC, LIPID, FSH, T3F, CUU, [id number], UA, CBC #### [place] [address] [place] #### ESTRADIOL, LH #### [facility] , NRBC% 0.1 /100{WBC} Normal 0-0.5 [facility] Comment on above: Order Comment: Reaso n for Exam Primary hypertension Performed By: #### T SH3, [id number], CMP, SHAMA, FE and TIBC, LIPID, FSH, T3F, CUU, [id number], UA, CBC #### [facility] [address] [place] [address] [place] #### ESTRADIOL, LH #### [facility] , Comprehensive Metabolic Pane hema 11-01-2023 Albumin [Mass/Vol] 4.3 g/dL Normal 3.5-5.7 [facility] Comment on above: Order Comment: Reaso n for Exam Primary hypertension Reason for Exam Low iron Reason for Exam Primary hypertension;Hypertriglyceridemia Reason for Exam Hot flashes Reason for Exam Vitamin D deficiency Performed By: #### T SH3, [id number], CMP, SHAMA, FE and TIBC, LIPID, FSH, T3F, CUU, [id number], UA, CBC #### [facility] [address] [place] [address] [place] #### ESTRADIOL, LH #### [facility] , GFR/1.73 sq M.predicted MDRD (S/P/Bld) [Vol rate/Area] mL/min/{1.73_m2} Normal [facility] Comment on above: Order Comment: Reaso n for Exam Primary hypertension Reason for Exam Low iron Reason for Exam Primary hypertension;Hypertriglyceridemia Reason for Exam Hot flashes Reason for Exam Vitamin D deficiency Performed By: #### T SH3, [id number], CMP, SHAMA, FE and TIBC, LIPID, FSH, T3F, CUU, [id number], UA, CBC #### [facility] [address] [place] [address] [place] #### ESTRADIOL, LH #### [facility] , Creatinine [Mass/volume] in Serum or PlasmaOrdered By: Jes Cruz on 11-01-2023 Creatinine [Mass/Vol] 0.75 mg/dL Normal 0.60-1.20 [facility] Comment on above: Order Comment: Reaso n for Exam Primary hypertension Reason for Exam Low iron Reason for Exam Primary hypertension;Hypertriglyceridemia Reason for Exam Hot flashes Reason for Exam Vitamin D deficiency Performed By: #### T SH3, [id number], CMP, SHAMA, FE and TIBC, LIPID, FSH, T3F, CUU, [id number], UA, CBC #### [facility] [address] [place] [address] [place] #### ESTRADIOL, LH #### [facility] , Erythrocyte distribution wid th [Ratio] by Automated countOrdered By: Jes Cruz on 11-01-2023 Erythrocyte distribution width (RBC) [Ratio] 13.1 % Normal 11.9-15.3 [facility] Comment on above: Order Comment: Reaso n for Exam Primary hypertension Performed By: #### T SH3, [id number], CMP, SHAMA, FE and TIBC, LIPID, FSH, T3F, CUU, [id number], UA, CBC #### [facility] [address] [place] [address] #### ESTRADIOL, LH #### [facility] , Erythrocytes [#/volume] in B lood by Automated countOrdered By: Jes Cruz on 11-01-2023 RBC (Bld) [#/Vol] 4.13 10*6/uL Normal 3.60-5.00 [facility] Comment on above: Order Comment: Reaso n for Exam Primary hypertension Performed By: #### T SH3, [id number], CMP, SHAMA, FE and TIBC, LIPID, FSH, T3F, CUU, [id number], UA, CBC #### [facility] [address] [place] [address] #### ESTRADIOL, LH #### [facility] , Estradiolon 11-01-2023 Estradiol <5.0 Normal . [facility] Comment on above: Order Comment: Reaso n for Exam Microscopic hematuria Name Collection Type:: Voided Result Comment: Adul t Female Range Follicular phase 12.5 - 166.0 Ovulation phase 85.8 - 498.0 Luteal phase 43.8 - 211.0 Postmenopausal <6.0 - 54.7 1st trimester 215.0 - >4300.0 Mp ECLIA methodology Performed at: [facility] [id number] Workers Compensation Defense Attorney: Kurtis Gallegos PhD, Phone: [phone] PERFORMED BY: [place] [address] PATHOLOGIST BOTTLE CAPPING MACHINE OPERATOR PALOMO WESLEY M.D. Performed By: #### T SH3, [id number], CMP, SHAMA, FE and TIBC, LIPID, FSH, T3F, CUU, [id number], UA, CBC #### [address] #### ESTRADIOL, LH #### [facility] , Ferritin [Mass/volume] in Se rum or PlasmaOrdered By: Jes Cruz on 11-01-2023 Ferritin [Mass/Vol] 42.8 ng/mL Normal 11.0-306.8 [facility] Comment on above: Order Comment: Reaso n for Exam Primary hypertension Reason for Exam Low iron Reason for Exam Primary hypertension;Hypertriglyceridemia Reason for Exam Hot flashes Reason for Exam Vitamin D deficiency Performed By: #### T SH3, [id number], CMP, SHAMA, FE and TIBC, LIPID, FSH, T3F, CUU, [id number], UA, CBC #### [facility] [address] [place] [address] [place] #### ESTRADIOL, LH #### [facility] , Folate [Mass/volume] in Seru m or PlasmaOrdered By: Jes Cruz on 11-01-2023 Folate [Mass/Vol] 10.3 ng/mL >5.9 [facility] Comment on above: Folate reference ran ge: >5.9 ng/mlThe WHO technical consultation on folate and vitamin [id number] has determined that folate concentrations lessthan 4 ng/ml are considered deficient. Follicle Stimulating Hormone on 11-01-2023 Follicle Stimulating Hormone 32.3 m[iU]/mL Normal [facility] Comment on above: Order Comment: [...] MALE NORMALS: 1.3-19.3 mIU/mL Performed By: #### T SH3, [id number], CMP, SHAMA, FE and TIBC, LIPID, FSH, T3F, CUU, [id number], UA, CBC #### [facility] [address] #### ESTRADIOL, LH #### [facility] , Follitropin [Units/volume] i n Serum or PlasmaOrdered By: Jes Cruz on 11-01-2023 Follitropin Qn 32.3 m[IU]/mL [facility] Comment on above: FEMALE NORMALS (KEVEN ENOPAUSE) MID-FOLLICULAR PHASE: 3.9-8.8 mIU/mL MID-CYCLE PEAK: 4.5-22.5 mIU/mL MID-LUTEAL PHASE: 1.8-5.1 mIU/mLFEMALE NORMALS (POSTMENOPAUSE): 16.7-113.6 mIU/mLMALE NORMALS: 1.3-19.3 mIU/mL Glucose [Mass/volume] in Ser um or PlasmaOrdered By: Jes Cruz on 11-01-2023 Glucose [Mass/Vol] 95 mg/dL Normal 70-100 [facility] Comment on above: ADA recommended refe [...] for Exam Vitamin D deficiency Result Comment: [place] om Glucose Reference Range is dependent on time and content of last meal. Glucose of more than 200 mg/dL in a nonstressed, ambulatory subject supports the diagnosis of Diabetes Mellitus. ADA recommended reference range Performed By: #### T SH3, [id number], CMP, SHAMA, FE and TIBC, LIPID, FSH, T3F, CUU, [id number], UA, CBC #### [address] #### ESTRADIOL, LH #### [facility] , Glucose [Mass/volume] in Uri ne by Test stripOrdered By: Jes Cruz on 11-01-2023 Glucose Test strip (U) [Mass/Vol] Normal mg/dL Normal [facility] Hematocrit [Volume Fraction] of Blood by Automated countOrdered By: Jes Cruz on 11-01-2023 Hematocrit (Bld) [Volume fraction] 39.6 % Normal 34.0-46.4 [facility] Comment on above: Order Comment: Reaso n for Exam Primary hypertension Performed By: #### T SH3, [id number], CMP, SHAMA, FE and TIBC, LIPID, FSH, T3F, CUU, [id number], UA, CBC #### [address] #### ESTRADIOL, LH #### [facility] , Hemoglobin Test strip Ql (U) Ordered By: Jes Cruz on 11-01-2023 Hemoglobin Ql (U) Negative Negative [facility] Hemoglobin [Mass/volume] in BloodOrdered By: Jes Cruz on 11-01-2023 Hemoglobin (Bld) [Mass/Vol] 13.3 g/dL Normal 11.8-15.4 [facility] Comment on above: Order Comment: Reaso n for Exam Primary hypertension Performed By: #### T SH3, [id number], CMP, SHAMA, FE and TIBC, LIPID, FSH, T3F, CUU, [id number], UA, CBC #### [place] [address] [place] #### ESTRADIOL, LH #### [facility] , Iron [Mass/volume] in Serum or PlasmaOrdered By: Jes Cruz on 11-01-2023 Iron [Mass/Vol] 106 ug/dL Normal 50-212 [facility] Comment on above: Order Comment: Reaso n for Exam Primary hypertension Reason for Exam Low iron Reason for Exam Primary hypertension;Hypertriglyceridemia Reason for Exam Hot flashes Reason for Exam Vitamin D deficiency Performed By: #### T SH3, [id number], CMP, SHAMA, FE and TIBC, LIPID, FSH, T3F, CUU, [id number], UA, CBC #### [facility] [address] [place] [address] [place] #### ESTRADIOL, LH #### [facility] , Iron and TIBC Profileon 10-04 % Iron Saturation 25.1 % Normal 20-50 [facility] Comment on above: Order Comment: Reaso n for Exam Primary hypertension Reason for Exam Low iron Reason for Exam Primary hypertension;Hypertriglyceridemia Reason for Exam Hot flashes Reason for Exam Vitamin D deficiency Performed By: #### T SH3, [id number], CMP, SHAMA, FE and TIBC, LIPID, FSH, T3F, CUU, [id number], UA, CBC #### [facility] [address] [place] [address] [place] #### ESTRADIOL, LH #### [facility] , Total Iron Binding Capacity 423 ug/dL Normal 255-450 [facility] Comment on above: Order Comment: Reaso n for Exam Primary hypertension Reason for Exam Low iron Reason for Exam Primary hypertension;Hypertriglyceridemia Reason for Exam Hot flashes Reason for Exam Vitamin D deficiency Performed By: #### T SH3, [id number], CMP, SHAMA, FE and TIBC, LIPID, FSH, T3F, CUU, [id number], UA, CBC #### [facility] [address] [place] [address] [place] #### ESTRADIOL, LH #### [facility] , Iron binding capacity [Mass/ volume] in Serum or PlasmaOrdered By: Jes Cruz on 11-01-2023 Iron binding capacity [Mass/Vol] 423 ug/dL 255-450 [facility] Iron saturation [Mass Fracti on] in Serum or PlasmaOrdered By: Jes Cruz on 11-01-2023 Iron saturation [Mass fraction] 25.1 % 20-50 [facility] Ketones [Presence] in Urine by Test stripOrdered By: Jes Cruz on 11-01-2023 Ketones Ql (U) Negative Normal Negative [facility] Comment on above: Order Comment: Reaso n for Exam Microscopic hematuria Name Collection Type:: Voided Performed By: #### T SH3, [id number], CMP, SHAMA, FE and TIBC, LIPID, FSH, T3F, CUU, [id number], UA, CBC #### [facility] [address] [place] [address] #### ESTRADIOL, LH #### [facility] , Leukocyte esterase [Presence ] in Urine by Test stripOrdered By: Jes Cruz on 11-01-2023 Leukocyte esterase Test strip Ql (U) Negative Normal Negative [facility] Comment on above: Order Comment: Reaso n for Exam Microscopic hematuria Name Collection Type:: Voided Performed By: #### T SH3, [id number], CMP, SHAMA, FE and TIBC, LIPID, FSH, T3F, CUU, [id number], UA, CBC #### [facility] [address] [place] [address] [place] #### ESTRADIOL, LH #### [facility] , Leukocytes [#/volume] correc ricardo for nucleated erythrocytes in Blood by Automated counOrdered By: Jes Cruz on 11-01-2023 WBC corrected for nucl RBC Auto (Bld) [#/Vol] 7.3 10*3/uL 3.8-11.6 [facility] Leukocytes [#/volume] in Blo od by Automated countOrdered By: Jes Cruz on 11-01-2023 WBC (Bld) [#/Vol] 7.3 10*3/uL Normal 3.8-11.6 [facility] Comment on above: Order Comment: Reaso n for Exam Primary hypertension Performed By: #### T SH3, [id number], CMP, SHAMA, FE and TIBC, LIPID, FSH, T3F, CUU, [id number], UA, CBC #### [facility] [address] [place] [address] [place] #### ESTRADIOL, LH #### [facility] , Lipid Panelon 11-01-2023 LDL Cholesterol,Calculated 198 mg/dL High 0-100 [facility] Comment on above: [...] mg/dL Very high Performed By: #### T SH3, [id number], CMP, SHAMA, FE and TIBC, LIPID, FSH, T3F, CUU, [id number], UA, CBC #### [facility] [address] #### ESTRADIOL, LH #### [facility] , Triglyceride w/Reflex 145 mg/dL Normal 0-149 [facility] Comment on above: Order Comment: [...] (CDC) test method. Performed By: #### T SH3, [id number], CMP, SHAMA, FE and TIBC, LIPID, FSH, T3F, CUU, [id number], UA, CBC #### [facility] [address] [place] [address] [place] #### ESTRADIOL, LH #### [facility] , VLDL CHOLESTEROL 29 mg/dL Normal [facility] Comment on above: Order Comment: Reaso n for Exam Primary hypertension Reason for Exam Low iron Reason for Exam Primary hypertension;Hypertriglyceridemia Reason for Exam Hot flashes Reason for Exam Vitamin D deficiency Performed By: #### T SH3, [id number], CMP, SHAMA, FE and TIBC, LIPID, FSH, T3F, CUU, [id number], UA, CBC #### [address] #### ESTRADIOL, LH #### [facility] , Luteinizing Hormoneon 2023 Luteinizing Hormone 20.7 m[iU]/mL Normal . [facility] Comment on above: Order Comment: Reaso n for Exam Microscopic hematuria Name Collection Type:: Voided Result Comment: Adul t Female Range Follicular phase 2.4 - 12.6 Ovulation phase 14.0 - 95.6 Luteal phase 1.0 - 11.4 Postmenopausal 7.7 - 58.5 Performed By: #### T SH3, [id number], CMP, SHAMA, FE and TIBC, LIPID, FSH, T3F, CUU, [id number], UA, CBC #### [address] #### ESTRADIOL, LH #### [facility] , Lymphocytes [#/volume] in Bl ood by Automated countOrdered By: Jes Cruz on 11-01-2023 Lymphocytes (Bld) [#/Vol] 2.0 10*3/uL Normal 1.00-4.8 [facility] Comment on above: Order Comment: Reaso n for Exam Primary hypertension Performed By: #### T SH3, [id number], CMP, SHAMA, FE and TIBC, LIPID, FSH, T3F, CUU, [id number], UA, CBC #### [facility] [address] [place] [address] [place] #### ESTRADIOL, LH #### [facility] , Lymphocytes/100 leukocytes i n Blood by Automated countOrdered By: Jes Cruz on 11-01-2023 Lymphocytes/100 WBC (Bld) 28.0 % Normal . [facility] Comment on above: Order Comment: Reaso n for Exam Primary hypertension Performed By: #### T SH3, [id number], CMP, SHAMA, FE and TIBC, LIPID, FSH, T3F, CUU, [id number], UA, CBC #### [facility] [address] [place] [address] #### ESTRADIOL, LH #### [facility] , MCH [Entitic mass] by Automa ricardo countOrdered By: Jes Cruz on 11-01-2023 MCH (RBC) [Entitic mass] 32.3 pg Normal 24.7-34.3 [facility] Comment on above: Order Comment: Reaso n for Exam Primary hypertension Performed By: #### T SH3, [id number], CMP, SHAMA, FE and TIBC, LIPID, FSH, T3F, CUU, [id number], UA, CBC #### [address] #### ESTRADIOL, LH #### [facility] , MCHC Auto (RBC) [Mass/Vol]Or dered By: Jes Cruz on 11-01-2023 MCHC (RBC) [Mass/Vol] 33.6 g/dL 32.0-35.0 [facility] MCV [Entitic volume] by Auto mated countOrdered By: Jes Cruz on 11-01-2023 MCV (RBC) [Entitic vol] 96.0 fL Normal 80-100 [facility] Comment on above: Order Comment: Reaso n for Exam Primary hypertension Performed By: #### T SH3, [id number], CMP, SHAMA, FE and TIBC, LIPID, FSH, T3F, CUU, [id number], UA, CBC #### [facility] [address] [place] [address] [place] #### ESTRADIOL, LH #### [facility] , Neutrophils [#/volume] in Bl ood by Automated countOrdered By: Jes Cruz on 11-01-2023 Neutrophils (Bld) [#/Vol] 4.3 10*3/uL Normal 1.8-7.7 [facility] Comment on above: Order Comment: Reaso n for Exam Primary hypertension Performed By: #### T SH3, [id number], CMP, SHAMA, FE and TIBC, LIPID, FSH, T3F, CUU, [id number], UA, CBC #### [facility] [address] [place] [address] #### ESTRADIOL, LH #### [facility] , Nitrite Test strip Ql (U)Ord ered By: Jes Cruz on 11-01-2023 Nitrite Ql (U) Negative Negative [facility] No Panel InformationOrdered By: Jes Cruz on 11-01-2023 Estimated GFR (CKD-EPI) > 60.0 mL/Min [facility] Creatinine Clearance (Chem N/A [facility] Nucleated erythrocytes [Pres ence] in Blood by Automated countOrdered By: Jes Cruz on 11-01-2023 Nucleated RBC Auto Ql (Bld) 0.1 /100{WBC} 0-0.5 [facility] Platelet mean volume [Entiti c volume] in Blood by Automated countOrdered By: Jes Cruz on 11-01-2023 Platelet mean volume (Bld) [Entitic vol] 8.3 fL Normal 6.3-10.7 [facility] Comment on above: Order Comment: Reaso n for Exam Primary hypertension Performed By: #### T SH3, [id number], CMP, SHAMA, FE and TIBC, LIPID, FSH, T3F, CUU, [id number], UA, CBC #### [facility] [address] [place] [address] #### ESTRADIOL, LH #### [facility] , Platelets [#/volume] in Bloo d by Automated countOrdered By: Jes Cruz on 11-01-2023 Platelets (Bld) [#/Vol] 384 10*3/uL Normal 150-450 [facility] Comment on above: Order Comment: Reaso n for Exam Primary hypertension Performed By: #### T SH3, [id number], CMP, SHAMA, FE and TIBC, LIPID, FSH, T3F, CUU, [id number], UA, CBC #### [facility] [address] [place] [address] #### ESTRADIOL, LH #### [facility] , Potassium [Moles/volume] in Serum or PlasmaOrdered By: Jes Cruz on 11-01-2023 Potassium [Moles/Vol] 4.3 mmol/L Normal 3.5-5.1 [facility] Comment on above: Order Comment: Reaso n for Exam Primary hypertension Reason for Exam Low iron Reason for Exam Primary hypertension;Hypertriglyceridemia Reason for Exam Hot flashes Reason for Exam Vitamin D deficiency Performed By: #### T SH3, [id number], CMP, SHAMA, FE and TIBC, LIPID, FSH, T3F, CUU, [id number], UA, CBC #### [facility] [address] [place] [address] [place] #### ESTRADIOL, LH #### [facility] , Protein Test strip (U) [Mass /Vol]Ordered By: Jes Cruz on 11-01-2023 Protein (U) [Mass/Vol] Negative Negative [facility] Protein [Mass/volume] in Ser um or PlasmaOrdered By: Jes Cruz on 11-01-2023 Protein [Mass/Vol] 6.9 g/dL Normal 6.4-8.9 [facility] Comment on above: Order Comment: Reaso n for Exam Primary hypertension Reason for Exam Low iron Reason for Exam Primary hypertension;Hypertriglyceridemia Reason for Exam Hot flashes Reason for Exam Vitamin D deficiency Performed By: #### T SH3, [id number], CMP, SHAMA, FE and TIBC, LIPID, FSH, T3F, CUU, [id number], UA, CBC #### [facility] [address] [place] [address] [place] #### ESTRADIOL, LH #### [facility] , Serum globulin measurement b y calculation (mass/volume)Ordered By: Jes Cruz on 11-01-2023 Globulin (S) [Mass/Vol] 2.6 g/dL Normal [facility] Comment on above: Order Comment: Reaso n for Exam Primary hypertension Reason for Exam Low iron Reason for Exam Primary hypertension;Hypertriglyceridemia Reason for Exam Hot flashes Reason for Exam Vitamin D deficiency Performed By: #### T SH3, [id number], CMP, SHAMA, FE and TIBC, LIPID, FSH, T3F, CUU, [id number], UA, CBC #### [facility] [facility] [address] [place] [address] #### ESTRADIOL, LH #### [facility] , Serum or plasma albumin/glob ulin mass ratioOrdered By: Jes Cruz on 11-01-2023 Albumin/Globulin [Mass ratio] 1.7 {ratio} [facility] Comment on above: Order Comment: Reaso n for Exam Primary hypertension Reason for Exam Low iron Reason for Exam Primary hypertension;Hypertriglyceridemia Reason for Exam Hot flashes Reason for Exam Vitamin D deficiency Performed By: #### T SH3, [id number], CMP, SHAMA, FE and TIBC, LIPID, FSH, T3F, CUU, [id number], UA, CBC #### [facility] [address] [place] [address] #### ESTRADIOL, LH #### [facility] , Serum or plasma anion gap de terminationOrdered By: Jes Cruz on 11-01-2023 Anion gap [Moles/Vol] 10.8 mmol/L Normal 6.0-15.0 [facility] Comment on above: Order Comment: Reaso n for Exam Primary hypertension Reason for Exam Low iron Reason for Exam Primary hypertension;Hypertriglyceridemia Reason for Exam Hot flashes Reason for Exam Vitamin D deficiency Performed By: #### T SH3, [id number], CMP, SHAMA, FE and TIBC, LIPID, FSH, T3F, CUU, [id number], UA, CBC #### [facility] [address] [place] [address] [place] #### ESTRADIOL, LH #### [facility] , Serum or plasma estradiol (E 2) measurement (mass/volume)Ordered By: Jes Cruz on 11-01-2023 E2 [Mass/Vol] pg/mL . [facility] Comment on above: Adult Female Range F ollicular phase 12.5 - 166.0 Ovulation phase 85.8 - 498.0 Luteal phase 43.8 - 211.0 Postmenopausal <6.0 - 54.7 1st trimester 215.0 - >4300.0Roche ECLIA methodologyPerformed at: [facility] [address] [id number] Director: Kutris Gallegos PhD, Phone: [phone] Serum or plasma high density lipoprotein (HDL) cholesterol measurementOrdered By: Jes Cruz on 11-01-2023 Cholesterol in HDL [Mass/Vol] 58 mg/dL Normal 23-92 [facility] Comment on above: HDL CHOL [...] 40 mg/dL HIGH Performed By: #### T SH3, [id number], CMP, SHAMA, FE and TIBC, LIPID, FSH, T3F, CUU, [id number], UA, CBC #### [facility] [address] [place] [address] #### ESTRADIOL, LH #### [facility] , Serum or plasma lutropin paramjit surement (units/volume)Ordered By: Jes Cruz on 11-01-2023 Lutropin Qn 20.7 m[IU]/mL . [facility] Comment on above: Adult Female Range F ollicular phase 2.4 - 12.6 Ovulation phase 14.0 - 95.6 Luteal phase 1.0 - 11.4 Postmenopausal 7.7 - 58.5 Serum or plasma total choles terol/high density lipoprotein (HDL) cholesterol mass ratOrdered By: Jes Cruz on 11-01-2023 Cholesterol.total/Adela sterol in HDL [Mass ratio] 4.9 {ratio} Normal <5.0 [facility] Comment on above: Order Comment: Reaso n for Exam Primary hypertension Reason for Exam Low iron Reason for Exam Primary hypertension;Hypertriglyceridemia Reason for Exam Hot flashes Reason for Exam Vitamin D deficiency Performed By: #### T SH3, [id number], CMP, SHAMA, FE and TIBC, LIPID, FSH, T3F, CUU, [id number], UA, CBC #### [facility] [address] #### ESTRADIOL, LH #### [facility] , Sodium [Moles/volume] in Ser um or PlasmaOrdered By: Jes Cruz on 11-01-2023 Sodium [Moles/Vol] 140 mmol/L Normal 136-145 [facility] Comment on above: Order Comment: Reaso n for Exam Primary hypertension Reason for Exam Low iron Reason for Exam Primary hypertension;Hypertriglyceridemia Reason for Exam Hot flashes Reason for Exam Vitamin D deficiency Performed By: #### T SH3, [id number], CMP, SHAMA, FE and TIBC, LIPID, FSH, T3F, CUU, [id number], UA, CBC #### [facility] [address] [place] [address] [place] #### ESTRADIOL, LH #### [facility] , Specific gravity Test strip (U) [Rel density]Ordered By: Jes Cruz on 11-01-2023 Specific gravity (U) [Rel density] 1.014 1.001-1.030 [facility] Thyrotropin [Units/volume] i n Serum or PlasmaOrdered By: Jes Cruz on 11-01-2023 TSH Qn 1.49 m[IU]/L Normal 0.45-5.33 [facility] Comment on above: Order Comment: Reaso n for Exam Primary hypertension Reason for Exam Low iron Reason for Exam Primary hypertension;Hypertriglyceridemia Reason for Exam Hot flashes Reason for Exam Vitamin D deficiency Performed By: #### T SH3, [id number], CMP, SHAMA, FE and TIBC, LIPID, FSH, T3F, CUU, [id number], UA, CBC #### [address] #### ESTRADIOL, LH #### [facility] , Transferrin [Mass/volume] in Serum or PlasmaOrdered By: Jes Anthony on 11-01-2023 Transferrin [Mass/Vol] 302 mg/dL Normal 203-362 [facility] Comment on above: Order Comment: Reaso n for Exam Primary hypertension Reason for Exam Low iron Reason for Exam Primary hypertension;Hypertriglyceridemia Reason for Exam Hot flashes Reason for Exam Vitamin D deficiency Performed By: #### T SH3, [id number], CMP, SHAMA, FE and TIBC, LIPID, FSH, T3F, CUU, [id number], UA, CBC #### [address] #### ESTRADIOL, LH #### [facility] , Triglyceride [Mass/volume] i n Serum or PlasmaOrdered By: Jes Cruz on 11-01-2023 Triglyceride [Mass/Vol] 145 mg/dL 0-149 [facility] Comment on above: TRIG ATP III CLASSIF ICATIONTRIG less than 150 mg/dL NormalTRIG 150-199 mg/dL Borderline highTRIG 200-500 mg/dL High TRIG greater than 500 mg/dL Very highStandard traceable to the Center for Disease Conrtrol and Prevention (CDC) test method. Triiodothyronine (T3) Freeon 11-01-2023 Triiodothyronine (T3) Free 2.86 pg/mL Normal 2.50-3.90 [facility] Comment on above: Order Comment: Reaso n for Exam Hot flashes Result Comment: PERF ORMED BY: [place] [address] PATHOLOGIST BOTTLE CAPPING MACHINE OPERATOR PALOMO WESLEY M.D. Performed By: #### T SH3, [id number], CMP, SHAMA, FE and TIBC, LIPID, FSH, T3F, CUU, [id number], UA, CBC #### [place] [address] [place] #### ESTRADIOL, LH #### [facility] , Triiodothyronine (T3) Free [ Mass/volume] in Serum or PlasmaOrdered By: Jes Anthony on 11-01-2023 Free T3 [Mass/Vol] 2.86 pg/mL 2.50-3.90 [facility] Urea nitrogen [Mass/volume] in Serum or PlasmaOrdered By: Jes Cruz on 11-01-2023 Urea nitrogen [Mass/Vol] 17 mg/dL Normal 7-25 [facility] Comment on above: Order Comment: Reaso n for Exam Primary hypertension Reason for Exam Low iron Reason for Exam Primary hypertension;Hypertriglyceridemia Reason for Exam Hot flashes Reason for Exam Vitamin D deficiency Performed By: #### T SH3, [id number], CMP, SHAMA, FE and TIBC, LIPID, FSH, T3F, CUU, [id number], UA, CBC #### [address] #### ESTRADIOL, LH #### [facility] , Urinalysison 11-01-2023 Bilirubin,Urine Negative Normal Negative [facility] Comment on above: Order Comment: Reaso n for Exam Microscopic hematuria Name Collection Type:: Voided Performed By: #### T SH3, [id number], CMP, SHAMA, FE and TIBC, LIPID, FSH, T3F, CUU, [id number], UA, CBC #### [place] [address] [place] #### ESTRADIOL, LH #### [facility] , Glucose Ql (U) Normal Normal Normal [facility] Comment on above: Order Comment: Reaso n for Exam Microscopic hematuria Name Collection Type:: Voided Performed By: #### T SH3, [id number], CMP, SHAMA, FE and TIBC, LIPID, FSH, T3F, CUU, [id number], UA, CBC #### [place] [address] [place] #### ESTRADIOL, LH #### [facility] , Nitrite,Urine Negative Normal Negative [facility] Comment on above: Order Comment: Reaso n for Exam Microscopic hematuria Name Collection Type:: Voided Performed By: #### T SH3, [id number], CMP, SHAMA, FE and TIBC, LIPID, FSH, T3F, CUU, [id number], UA, CBC #### [address] #### ESTRADIOL, LH #### [facility] , Occult Blood,Urine Negative Normal Negative [facility] Comment on above: Order Comment: Reaso n for Exam Microscopic hematuria Name Collection Type:: Voided Result Comment: PERF ORMED BY: [place] [address] PATHOLOGIST BOTTLE CAPPING MACHINE OPERATOR PALOMO WESLEY M.D. Performed By: #### T SH3, [id number], CMP, SHAMA, FE and TIBC, LIPID, FSH, T3F, CUU, [id number], UA, CBC #### [address] #### ESTRADIOL, LH #### [facility] , Protein,Urine Negative Normal Negative [facility] Comment on above: Order Comment: Reaso n for Exam Microscopic hematuria Name Collection Type:: Voided Performed By: #### T SH3, [id number], CMP, SHAMA, FE and TIBC, LIPID, FSH, T3F, CUU, [id number], UA, CBC #### [address] #### ESTRADIOL, LH #### [facility] , Specificy Lipan,Urine 1.014 Normal 1.001-1.030 [facility] Comment on above: Order Comment: Reaso n for Exam Microscopic hematuria Name Collection Type:: Voided Performed By: #### T SH3, [id number], CMP, SHAMA, FE and TIBC, LIPID, FSH, T3F, CUU, [id number], UA, CBC #### [place] [address] [place] #### ESTRADIOL, LH #### [facility] , Urobilinogen,Urine Normal Normal Normal [facility] Comment on above: Order Comment: Reaso n for Exam Microscopic hematuria Name Collection Type:: Voided Performed By: #### T SH3, [id number], CMP, SHAMA, FE and TIBC, LIPID, FSH, T3F, CUU, [id number], UA, CBC #### [facility] [address] [place] [address] [place] #### ESTRADIOL, LH #### [facility] , Urine Cultureon 11-01-2023 Bacteria identified Cx Nom (U) Reason for Exam Microscopic hematuria Urine Reason for Exam: Microscopic hematuria : Urine <9,000 colonies/ml mixed bacterial skin contaminants 2 Days PERFORMED BY: [place] [address] PATHOLOGIST BOTTLE CAPPING MACHINE OPERATOR PALOMO WESLEY M.D. Normal [facility] Comment on above: Performed By: #### T SH3, [id number], CMP, SHAMA, FE and TIBC, LIPID, FSH, T3F, CUU, [id number], UA, CBC #### [place] [address] [place] #### ESTRADIOL, LH #### [facility] , Urine appearanceOrdered By: Jes Cruz on 11-01-2023 Appearance (U) Clear Normal Clear [facility] Comment on above: Order Comment: Reaso n for Exam Microscopic hematuria Name Collection Type:: Voided Performed By: #### T SH3, [id number], CMP, SHAMA, FE and TIBC, LIPID, FSH, T3F, CUU, [id number], UA, CBC #### [facility] [address] [place] [address] [place] #### ESTRADIOL, LH #### [facility] , Urine culture routineOrdered By: Jes Cruz on 11-01-2023 Bacteria identified Cx Nom (U) 2 Days [facility] Urobilinogen Test strip (U) [Mass/Vol]Ordered By: Jes Cruz on 11-01-2023 Urobilinogen (U) [Mass/Vol] Normal mg/dL Normal [facility] Vit. B12/Folate Profileon Folate 10.3 ng/mL Normal >5.9 [facility] Comment on above: Order Comment: [...] ng/ml are considered deficient. Performed By: #### T SH3, [id number], CMP, SHAMA, FE and TIBC, LIPID, FSH, T3F, CUU, [id number], UA, CBC #### [facility] [address] [place] [address] #### ESTRADIOL, LH #### [facility] , Vitamin B12 ser/plasOrdered By: Jes Cruz on 11-01-2023 Cobalamin (Vitamin B12) [Mass/Vol] 208 pg/mL Normal 180-914 [facility] Comment on above: Order Comment: Reaso n for Exam Primary hypertension Reason for Exam Low iron Reason for Exam Primary hypertension;Hypertriglyceridemia Reason for Exam Hot flashes Reason for Exam Vitamin D deficiency Performed By: #### T SH3, [id number], CMP, SHAMA, FE and TIBC, LIPID, FSH, T3F, CUU, [id number], UA, CBC #### [facility] [address] [place] [address] [place] #### ESTRADIOL, LH #### [facility] , Vitamin D 25 Hydroxy Totalon 11-01-2023 Vitamin D 25 Hydroxy Total 34.2 ng/mL Normal 30-100 [facility] Comment on above: Order Comment: Reaso n for Exam Microscopic hematuria Name Collection Type:: Voided Result Comment: IDRIS MIN D STATUS 25(OH)VITAMIN D RANGE (ng/mL) Deficient <20 Insufficient 20 to <30 Sufficient 30 to 100 Reference: Baron MF,Suze DONOVAN, Abdiel MAXWELL, et al. Evaluation,treatment, and prevention of vitamin D deficiency; an Endocrine Society clinical practice guideline. JCEM. 2010; 96(7):1911-30. PERFORMED BY: [place] [address] PATHOLOGIST BOTTLE CAPPING MACHINE OPERATOR PALOMO WESLEY M.D. Performed By: #### T SH3, [id number], CMP, SHAMA, FE and TIBC, LIPID, FSH, T3F, CUU, [id number], UA, CBC #### [facility] [address] [place] [address] [place] #### ESTRADIOL, LH #### [facility] , Vitamin D+Metabolites [Mass/ volume] in Serum or PlasmaOrdered By: Jes Cruz on 11-01-2023 Vitamin D+Metabolites [Mass/Vol] 34.2 ng/mL 30-100 [facility] Comment on above: VITAMIN D STATUS 25( [place])VITAMIN D RANGE (ng/mL) Deficient <20 Insufficient 20 to <30Sufficient 30 to 100Reference: Baron MF,Suze NC, Khushi-Jeffy MAXWELL, et al. Evaluation,treatment, and prevention of vitamin D deficiency; an Endocrine Society clinical practice guideline. JCEM. 2010; 96(7):1911-30. pH of Urine by Test stripOrd ered By: Jes Cruz on 11-01-2023 pH (U) 6.5 [pH] Normal 5.0-9.0 [facility] Comment on above: Order Comment: Reaso n for Exam Microscopic hematuria Name Collection Type:: Voided Performed By: #### T SH3, [id number], CMP, SHAMA, FE and TIBC, LIPID, FSH, T3F, CUU, [id number], UA, CBC #### [facility] [address] [place] [address] [place] #### ESTRADIOL, LH #### [facility] , Ambulatory [...] you for choosing us for your care. [facility] Provider Letteron 10-14-2023 Provider Letter Provider Letter October 14, [address] [address] : 1970 To Whom It May Concern, Please excuse above patient from work. Date of Illness: From: 10/14/23 To: 10/14/23 May Return to Work On: Patient had an appointment on 10/14/23 with SHABNAM Bowens Restrictions: None Comments: Patient had an appointment with SHABNAM Bowens on 10/14/23 Sincerely, [facility] , option #3 [facility] Urology Office/Clinic Noteon 10-14-2023 Urology Office/Clinic [...] E&M of Est. Patient Moderate 30-39 Min 03036 2. History of kidney stones (Z87.442: Personal [...] Urnls Dip Stick Auto w/o Microscopy POC 11806 Follow-up With When Contact Information [facility] [place] [address] [place] [address] Business (1) Additional Instructions: for [...] disease: Mother. (more content not included)... Normal [facility] Comment on above: Result Comment: Elec tronically Signed By: JES ROLLE PA-C\.br\Date and Time Signed: 10/14/23 13:24 EDT Main OR Intraoperative Recor don 10-05-2023 Main OR Intraoperative Record Main OR Intraoperative Record IntraOp Document Type FTURO Summary Primary Physician: Alexandro PARTIDA MD Finalized Date/Time: 10/05/23 09:45:46 Pt. Name: ISELA CRAIG/Sex: 1970 Female Med Rec #: [id number] Physician: Alexandro PARTIDA MD Financial #: [id number] Pt. Type: O Room/Bed: / Admit/Disch: 10/05/23 [...] Kendall R Role Performed Surgeon - Primary Box Sealing Inspector - Primary Scrub - Primary Time In [...] 10/05/23 09:42 Estrella Aguirre 10/05/23 09:45 Normal [facility] Main OR Preoperative Recordo n 10-05-2023 Main OR Preoperative Record Main OR Preoperative Record Holding Area Document Type FTURO Summary Primary Physician: Alexandro PARTIDA MD Finalized Date/Time: 10/05/23 08:57:00 Pt. Name: ISELA CRAIG/Sex: 1970 Female Med Rec #: [id number] Physician: Alexandro PARTIDA MD Financial #: [id number] Pt. Type: O Room/Bed: / Admit/Disch: 10/05/23 08:22:58 - Institution: Case Times Holding FTURO Pre-Care Text: Verifies consent for planned procedure, identifies individual values and wishes concerning care, includes family members in perioperative teaching Secures patient's records' belongings, and valuables, maintains patient's dignity and privacy, and maintains patient confidentiality Entry 1 In Holding 10/05/23 08:50:00 Outcomes Met? Yes Last Modified By: Ej RN, Glendy ESTRADA 10/05/23 08:50:05 Post-Care Text: The [...] SEAN Pagan RN, Ruthann 10/05/23 08:57 Normal [facility] Operative Reporton Operative Report Operative Report [...] Type: Local. Procedure: Local Cystoscopy. Complications: None. Risks/Benefits/Inform ed Consent: Surgical risks, benefits, details of the [...] Kim Rolle in a month or 2.. [facility] Comment on above: Result Comment: Elec tronically Signed By: JAQUAN PATRICK, Alexandro Clark.guillermina\Date and Time Signed: 10/05/23 09:46 EDT Provider Letteron 10-05-2023 Provider Letter Provider Letter October 05, 2023 To Whom It May Concern, Please excuse above patient from work. Date of Illness: From: 10/05/2023 To: 10/05/2023 May Return On:10/05/2023 Sincerely, [facility] [address], [address] [place] [address] [facility] Insurance Correspondenceon 0 09-28-2023 Insurance Correspondence [id number]# [email or web address] [facility] Coding Summary.on 09-23-2023 Coding Summary. GGMUBotz17FUb3uFq+PG h lYWQ+RO6BZZIdZ68bdJBn nS1vQ1FBWTmWBfqvYLZPV NlXZhLcmwKgYQ7bkWJgRA Ju IC8+PM2lFDKzGveexIUak 5B7aQM9A42cwa0uYLgwnF D3GPCyWsTgylmbj8jxzTp 6IDcuNmluOyBt RXWxwS96CEV3yJ20Va19u LInzDHnm7dcqIp7CvEpKD TnOLP8sImjRQzfg0JwREM oZ00qdKBgf3Q3 LCPrxKhqbPQpGkRhcWP2d V9qEFhlbjbce0osqsupMs u9sk29hOGub7L3oFR2U4B zarK0GTHreVAs DeayjLLImN4jriyrp2ocw rqrOuGuZQNaJAc8NXk2NQ TvkOtpPdFpZT78RJW7NXN ceuIyM8MlCMFi bXbmPkB4j1H2Ol7KM8IWG jtsI4ESXMLCPZrgyVO+PC 84ju44T4KnOmuvOqo6XYO zNKK7xOB4hA4f XAXfDUfow8V5kNC5F8Byi lVvcz4ul7myFWFmBAmgY5 4wlYEvc0X4KYJihYI5HRF xjDmvZvKddN98 Oyc+VGSolOhok7SjVrqxg 6rle6jvdYs9OfkgTFEauz NrsBtuSVB1c7EbCd6rCUS ezBX3xZA1eN1g DvXeAkJ3ZRinT961UvDzo AUnNtvuP16cE1OxxLY+PH PwFpa8CKZypRrqUB0wF1P hZGRpbmctbGVm sSscLO6pBKHmrgxdYMQzq M9rKEZnZ5o4VoUcWiF8SL wdO8UvHNYzadvwOo01rE5 kYaRbIhL9EQeg V7VbeuW4ABBrnHJxBYykK HN3U89ps4A6OWQtEYYiPT T3iOT8xC2daChmikgcgOB mdDsgdmVydGlj PTvbPKjcJ230VQSctBiiQ kNvZGluZyBEYXRlOiAgMD YvMjAvMjAyNDwvdGQ+PHR cVSN4wWjoOEKm fQClQCmyVh7fgSzvvKyxK V6oDSHhhtzaAUMjfY5hDK BcfCWhbGtvAQ8jPWDqabu da822GqFySDA0 QVEwmQVkM1FqeP3oKoXaW HJhJOYvF1FsuNTfXFknU7 32JWfrBdU6INEdffHcS6K sLWFsaWduOiB0 p4Q8Fp9Eb3CziydjB4Tec EEnVuRhLshkUTf9Q5KhPg wvdHI+VJ60NNSoXT67ZLh 4XSX9gKanGMdm DOJyW0TmzV1uJfUpWGAzL GRkOyc+PHRhYmxlIHdpZH RoPScxMDAlJyBzdHlsZT0 gRx7mERDfMENt nYforXUuIwBkx6wrHURfR IbnHJ1iwAjhB9JwlSC3HW Heq9w2Ps92X28sL6QgjKY +BSJeqMP6zBL5 vC7vPpZjZiR0BZctZ602T xFczYFwQaxdy9ucy0invT q3BoV8PTSzvlKssNjzFYD 9o2TnIe61Z28h IHdpZHRoPSIxNSUiIHZhb Qeiig1iiG6uWr3+PGNvbC E5rSH3uS2xAvHpQbV3SXd uI834MhVebWEh Srlsj8omb7hpeOp7ZgCbV MGlwsEgkWtsXLH4g6YwEx 67Z4OmnRedp6EeTjx8wn9 8bGUgi6O1pFT8 I9BxVFPnreluaBKmrVvhI N1kURLtyiqpIGOpsG5fVJ ZbL4x3JePsTfA4ZZggJ2R jrnF2CZLefOXm AGEwmTKBaL7ioljyw6bim ohhKjVyJRJtWIm4XLm0ZT SryYitDaObSOF6IdD1OWL 0wYZvwP4vsMry modyrK7vFzc+YAO2sLYkl JZSYW3hUufknOA+PHRkIH Y4qLdyQWhbFGJhyC6pYVW dW4n5FuSnHxX5 TVsfI4NjpcZ0YFCysGLaH QStpGZBqL1snysdz3lhau jyTfIjPFZkNNu0WOx5IAC saWduOiBsZWZ0 EdK1XRM6hATwbO4jsOqdt bknxG8nIpi+QmlydGggRG A7MCe3Z3DfLki3QNGdbAr kEO1qeTYoJFpa Sh2pbJyfnXwmGS6nMJBim wcxk244TgPnn4weWKInrF PkTRnaENM9Z79tm0B0RHN vXTOkHHP8yLI9 nU8zpGnwshaphOWngXekl wCarBqaYJbwHLutM958IK OspVziVlAyXVq1E0JtQns 5KFHhiEhrSY1i bPOxYJpjUn7fvFyutZhwV A5lUVKpidbou104UwWrf6 tfBCKwyDDlVOtiVOW8L91 ur2A6TKPuSWXb TSD4kTK1gE7bgRgnsvedu GVmdDsgdmVydGljYWwtYW khK684HMYlzWhmWwDicGt 2T2BbHuw2HJWn uVbjSM8tdITnLTwkCd3dq DkryXxeOO6qSWKpayjti8 08FvQgj1frFZLoqSHaFOi bTVD5Z81dp6H0 LVBuWQXzWKM4jZA2vD6za GlnbjogbGVmdDsgdmVydG smBDzuYDrpA245ZWNoiOg nPlBhdGllbnQg CNskTAy4V2XsVvomdIZ+P C20LTFvQV79hHFfwOQox2 eqePp4KuVvGHPjKWH2sTp vEAvbi3NbQHQe K98czHIun8U9YJIrvXvft RPqXtXnmTZ4lD4aPPkymr sqb7robtxjJbqco6pgie3 3sP24V56pHDkx ZHRoPSIzMCUiIHZhbGlnb o0mfY6nYy5+SFPanNG8lE X9rD6wVJTvNbP1HXklE10 9InRvcCIvPjxj g5pfu0tlvEp3KdO3GTLey tXsjHlvEEA3c7LlKc71I3 9sIHdpZHRoPSIyMCUiIHZ keUowme5pcU2f Ii8+ANVdpWN9zUD4kD6hP rNmGmW8LBhjA746RvFrzY ZbNokiX89gE5FdpBE+PHR cTkc0HMZmhLfe FY6tvOWvEQrsSr1fMOP4F cRyVcWlDPyjI9HyEFJhxm wwjaxsgNZ8JUPqQARdvU8 4Fy7wdWvuNWIt tDUSdU2cntktm6lqmgkeW rVhDVEdLTl8VJr2APMedU zeFdZaSNW1YlL2BBU5tXH vjW8vlWgoiynz jV6vI1YqEEFufuaeUt26r G9iUzAqVmH5GUadTwr+Q0 9SQklOLCBDSEVOTkkgSzw vdGQ+PHRkIHN0 sQhgILysFHLifJ6sFIYeO 1h1ZiSeQhM4RYmpS6LjGG DcrcraOh19eZ1lGvAdYyB 7KOcjY8JpawW7 JUXytYXsPFicHLY9Q23aa 1B8QSIpEBOjBGL3gZW3iI 1hbGlnbjogbGVmdDsgdmV ydGljYWwtYWxp Y274DIBmlNmlZvUqVsHyO gS6ElF9L4QyPlx7LRFcfI xpZZ9jbIUgUIptOv0qhTu htXqgGB4nGEZh lpniQFSfbR4rGTBdyRVdw QpsUX3qPBFizzyjq880Jb OnVQG6ZPNknNRnM8DdeQ2 yOiAjMDAwMDAw T1BvlIEdPOccF843NPgkA vE0ZOHqhdOtH7XvUBGwbY zqHeM8z3Z3Ai17AvLVNUF yczwvdGQ+PHRk IYX5wJdfBTpuWAMseH1fS NEhZ0b2XuKqFhA9NEbbF4 TmEPKtwnuuKi21zX3lNlM yWqH1ISszE3Uo hzN6FQXhyJOsWDyvEQS1B 47gv5M1YKXbBDCyRZD2tM K1vW7mgDeuaknypGOtcFy gdmVydGljYWwt IUxkM294BVCnnImpDzTsn WFsZTwvdGQ+NOIkQKC4bW zuSLmwLFTjtH5cZRSlW3a 8DrGsTjB9BVqy I3AvXECremrrOf92uL8kW qXiOdB3VOfxP5HfpaI5DG DcoYEnEQltDDI3P53ep3S 3IYHtITRxSCL0 oKP6vE8zrAetawwqtBNbw DsgdmVydGljYWwtYWxpZ2 55OOKozJfcSn76jJSryVy sstR2M5OxSgmp dHI+LN22RFKxJE32yGYwa VOpe1vbyAn4ZfIhWISzSK X1wIpzZIwvo0JkHXRwT26 aeQNll7L7WBPn qMzgiOTbDvXuoMU4iL8bH Hszkwyrp8spgxuoEnqjh8 qdff78rT05O60hSYkhUKI oPSIzMCUiIHZh vDbmum5zrY9lCt9+PGNvb RA1jPZ7lM6uTzGmNrL7ZW hnC783QgMwlWFdInbue5x id7mziMk4OjAs NVZycqAxaEryIKB8n7BtG o92K88bTLvaEVKwZUJfGR ToCSLsrGcazi8ytQ1zSg0 +PD1dc5rmqm45 sO70iHD+AMYrBYJ2tIvyH PpwYPHlwA0jQUhwJiC0BU QcHuVvtA65hHOwZResIb6 wgQfukRawDS5n FZUumwbjk887VaKxm6sbL DBjkDJxUXofMBT1Q96if1 L7QORiWDDkPEF5uCK3dS6 hbGlnbjogbGVm dDsgdmVydGljYWwtYWxpZ 290GUXkyDieAqSquJWbS9 owxiMRXZ8cCpdpkIW+PHR dRZL2cDhgVYvv IKFeqB8rGTAfL6r8AgHpK uJ9RWfaM0IforQ9FGZekJ JiLCPvbASQkO2glizdw5v vcjogIzAwMDAw KWz8ZUz0DPAdmEsnOjKfV MV8SyR7NRE0kWIugS7rlE nwmjeojO3nFlx+RklOOjw vdGQ+PHRkIHN0 oLhkAMjfOMLhdX1qOOBpI 6x0PrQvUsD6QTsxL4Cllt V9MAXegPXzFZOitETSgI3 ahxgnv3mbopjf PoFfBCFsLTn2FRy1AWKlo YpmUpOaENZ1TmJ2NJH5cI ToyD0cqWnwdttkmU2xNok +TVJOOjwvdGQ+ IGRjIJZ8oZowFMrwCZOhy V9zESVyH9s1CxTzIcS7AE yvA2DdosP4JWZrqLRyUEK ruRAVqH1nxxlo y1xrzqksNrAeNQIgSAx1Q Rs6REAfkMjbPzFuHLX0Ob H5XBU4jEJygE1uzCptpji vmJ5xRfe+UGF5 LOL1UO41DK58W2DcTnfok GFibGU+PHRhYmxlIHdpZH RoPScxMDAlJyBzdHlsZT0 uIb6tUJXaXOYf bGxhcHNlOiBjb (more content not included)... Normal [facility] CBC AND AUTO DIFFon 09-18-19 24 ABSOLUTE BASOPHIL 0.0 X10E9/L Normal 0.0-0.2 [facility] Comment on above: Performed By: #### C BCA, CMP, 3039-3 #### [facility] ([id number]) [address] [place] [id number] ABSOLUTE NEUTROPHIL 3.2 X10E9/L Normal 1.5-6.6 [facility] Comment on above: Performed By: #### C BCA, CMP, 3039-3 #### [facility] ([id number]) [address] [place] [address] 75508 Basophils/100 WBC (Bld) 0.7 % Normal [facility] Comment on above: Performed By: #### Terrie KIRKPATRICK, CMP, 3 #### [facility] ([id number]) [address] [place] [address] [phone] Eosinophils (Bld) [#/Vol] 0.1 10*3/uL Normal 0.0-0.4 [facility] Comment on above: Performed By: #### Terrie BCA, CMP, 3 #### [facility] ([id number]) [address] [place] [address] [id number] Eosinophils/100 WBC (Bld) 2.4 % Normal [facility] Comment on above: Performed By: #### Terrie BCA, CMP, 3 #### [facility] ([id number]) [address] [place] [address] [id number] Erythrocyte distribution width (RBC) [Ratio] 13.6 % Normal 11.5-15.0 [facility] Comment on above: Performed By: #### Terrie BCA, CMP, 3 #### [facility] ([id number]) [address] [place] [address] 22379 Hematocrit (Bld) [Volume fraction] 34.5 % Low 35-47 [facility] Comment on above: Performed By: #### Terrie BCA, CMP, 3039-3 #### [facility] ([id number]) [address] [place] [address] [id number] Hemoglobin (Bld) [Mass/Vol] 11.6 g/dL Low 11.7-15.5 [facility] Comment on above: Performed By: #### Terrie KIRKPATRICK CMP, 3039-3 #### [facility] ([id number]) [address] [place] [address] 75276 Lymphocytes (Bld) [#/Vol] 1.9 10*3/uL Normal 1.0-3.5 [facility] Comment on above: Performed By: #### Terrie KIRKPATRICK CMP, 3039-06 #### [facility] [facility] ([id number]) [address] [place] [address] 81567 Lymphocytes/100 WBC (Bld) 30.9 % Normal [facility] Comment on above: Performed By: #### Terrie KIRKPATRICK [facility], 3 #### [facility] ([id number]) [address] [place] [address] 11683 MCH (RBC) [Entitic mass] 33.1 pg Normal 27-34 [facility] Comment on above: Performed By: #### Terrie KIRKPATRICK [facility], 3039-06 #### [facility] ([id number]) [address] [place] [address] 28537 MCHC (RBC) [Mass/Vol] 33.6 g/dL Normal 32-36 [facility] Comment on above: Performed By: #### Terrie KIRKPATRICK CMP, 3039-06 #### [facility] ([id number]) [address] [place] [address] 05732 MCV (RBC) [Entitic vol] 99 fL Normal 80-100 [facility] Comment on above: Performed By: #### Terrie KIRKPATRICK CMP, 3039-3 #### [facility] ([id number]) [address] [place] [address] 40411 Monocytes (Bld) [#/Vol] 0.9 10*3/uL Normal 0-0.9 [facility] Comment on above: Performed By: #### Terrie KIRKPATRICK CMP, 3040-3 #### [facility] ([id number]) [address] [place] [address] 57291 Monocytes/100 WBC (Bld) 13.8 % Normal [facility] Comment on above: Performed By: #### Terrie KIRKPATRICK CMP, 3039-3 #### [facility] ([id number]) [address] [place] [address] 96657 Neutrophils/100 WBC (Bld) 52.2 % Normal [facility] Comment on above: Performed By: #### Terrie KIRKPATRICK CMP, 3 #### [facility] ([id number]) [address] [place] [address] 61713 Platelet mean volume (Bld) [Entitic vol] 9.1 fL Normal 7-12 [facility] Comment on above: Performed By: #### Terrie KIRKPATRICK CMP, 3039-3 #### [facility] ([id number]) [address] [place] [address] 34867 Platelets (Bld) [#/Vol] 291 10*3/uL Normal 150-450 [facility] Comment on above: Performed By: #### Terrie KIRKPATRICK CMP, 3039-3 #### [facility] ([id number]) [address] [place] [address] 29453 RBC COUNT 3.50 X10E12/L Low 3.80-5.20 [facility] Comment on above: Performed By: #### Terrie KIRKPATRICK CMP, 3039-3 #### [facility] ([id number]) [address] [place] [address] 42614 WBC (Bld) [#/Vol] 6.2 10*3/uL Normal 4.0-11.0 [facility] Comment on above: Performed By: #### Terrie KIRKPATRICK CMP, 0-3 #### [facility] ([id number]) [address] [place] [address] 16408 COMPREHENSIVE METABOLIC PANE Hema 09-18-2023 Albumin [Mass/Vol] 3.8 g/dL Normal 3.2-5.3 [facility] Comment on above: Performed By: #### C BCA, CMP, 3039-3 #### [facility] ([id number]) [address] [place] [address] 02934 ALP [Catalytic activity/Vol] 64 U/L Normal 39-130 [facility] Comment on above: Performed By: #### C BCA, CMP, 3039-3 #### [facility] ([id number]) [address] [place] [address] 48424 ALT [Catalytic activity/Vol] 18 U/L Normal 0-31 [facility] Comment on above: Performed By: #### C BCA, CMP, 3039-3 #### [facility] ([id number]) [address] [place] [address] 19624 Anion gap [Moles/Vol] 7 mmol/L Normal 5-15 [facility] Comment on above: Performed By: #### C BCA, CMP, 3039-3 #### [facility] ([id number]) [address] [place] [address] 48345 AST [Catalytic activity/Vol] 19 U/L Normal 0-41 [facility] Comment on above: Performed By: #### C BCA, CMP, 3039-3 #### [facility] ([id number]) [address] [place] [address] 74223 Bilirubin [Mass/Vol] 0.6 mg/dL Normal 0.3-1.2 [facility] Comment on above: Performed By: #### C BCA, CMP, 0-3 #### [facility] ([id number]) [address] [place] [address] 08147 Calcium [Mass/Vol] 8.4 mg/dL Low 8.5-10.5 [facility] Comment on above: Performed By: #### C KEYSHAWN KIRKPATRICK, 0-3 #### [facility] ([id number]) [address] [place] [address] 65293 Chloride [Moles/Vol] 105 mmol/L Normal 98-109 [facility] Comment on above: Performed By: #### C KEYSHAWN KIRKPATRICK, 3039-3 #### [facility] ([id number]) [address] [place] [address] 92602 CO2 [Moles/Vol] 26 mmol/L Normal 22-32 [facility] Comment on above: Performed By: #### C KEYSHAWN KIRKPATRICK, 3 #### [facility] ([id number]) [address] [place] [address] 16782 Creatinine [Mass/Vol] 1.03 mg/dL High 0.40-1.00 [facility] Comment on above: Result Comment: METH OD TRACEABLE TO IDMS STANDARD Performed By: #### C KEYSHAWN KIRKPATRICK, 3 #### [facility] ([id number]) [address] [place] [address] 65098 GFR/1.73 sq M.predicted among non-blacks MDRD (S/P/Bld) [Vol rate/Area] 65 mL/min/{1.73_m2} Normal >59 [facility] Comment on above: Result Comment: Reported eGFR is based on the CKD-EPI 2020 equation that does not use a race coefficient. Performed By: #### C KEYSHAWN KIRKPATRICK, 3040-3 #### [facility] ([id number]) [address] [place] [address] 02661 Glucose [Mass/Vol] 99 mg/dL Normal 65-99 [facility] Comment on above: Performed By: #### C KEYSHAWN KIRKPATRICK, 3040-3 #### [facility] ([id number]) [address] [place] [address] 98890 Potassium [Moles/Vol] 3.4 mmol/L Low 3.5-5.0 [facility] Comment on above: Performed By: #### C KAYA [facility], 3040-3 #### [facility] ([id number]) [address] [place] [address] 13043 Protein [Mass/Vol] 6.9 g/dL Normal 6.0-8.0 [facility] Comment on above: Performed By: #### C KAYA [facility], 3040-3 #### [facility] ([id number]) [address] [place] [address] 45515 Sodium [Moles/Vol] 138 mmol/L Normal 134-146 [facility] Comment on above: Performed By: #### Terrie KIRKPATRICK [facility], 3040-3 #### [facility] ([id number]) [address] [place] [address] 76159 Urea nitrogen [Mass/Vol] 10 mg/dL Normal 5-23 [facility] Comment on above: Performed By: #### Terrie KIRKPATRICK [facility], 3040-3 #### [facility] ([id number]) [address] [place] [address] BRAIN WO CONTon 4 CT BRAIN [...] #### C BCA, CMP, 3040-3 #### [facility] ([id number]) [address] [place] [address] 02212 URN MACROSCOPIC NURon 2023 BILIRUBIN SHADY Negative Normal NEG [facility] Comment on above: Performed By: #### N UM #### [facility] ([id number]) [address] [place] [address] 76143 BLOOD/HGB SHADY Trace Abnormal NEG [facility] Comment on above: Performed By: #### N UM #### [facility] ([id number]) [address] [place] [address] 07934 GLUCOSE SHADY Negative Normal NEG [facility] Comment on above: Performed By: #### N UM #### [facility] ([id number]) [address] [place] [address] 05744 KETONES SHADY Negative Normal NEG [facility] Comment on above: Performed By: #### N UM #### [facility] ([id number]) [address] [place] [address] [place] [address] LEUKOCYTE ESTERASE SHADY Negative Normal NEG [facility] Comment on above: Performed By: #### N UM #### [facility] ([id number]) [address] [place] [address] 53622 NITRITE SHADY Negative Normal NEG [facility] Comment on above: Performed By: #### N UM #### [facility] ([id number]) [address] [place] [address] 21683 PH SHADY 6.0 Normal 5.0-8.5 [facility] Comment on above: Performed By: #### N UM #### [facility] ([id number]) [address] [place] [address] 38501 PROTEIN SHADY Negative Normal NEG [facility] Comment on above: Performed By: #### N UM #### [facility] ([id number]) [address] [place] [address] 02295 SPECIFIC GRAVITY SHADY 1.010 Normal 1.003-1.035 [facility] Comment on above: Performed By: #### N UM #### [facility] ([id number]) [address] [place] [address] 07567 UROBILINOGEN SHADY 0.2 eu/dL Normal <1.1 [facility] Comment on above: Performed By: #### N UM #### [facility] ([id number]) [address] [place] [address] 89207 Consent for Treatmenton 09-03 Consent for Treatment [id number]#1 .00TIFF Normal [facility] Heart [facility] Vascular Office/Cl in Noteon 09-13-2023 [...] with voice recognition artificial intelligence software, specifically [employer] and or [employer]. Substitutions may have occurred due to the [...] History Ca (more content not included)... Normal [facility] Comment on above: Result Comment: Elec tronically Signed By: Roosevelt Sotelo PA-C\.br\Date and Time Signed: 09/13/23 13:41 EDT Insurance Correspondenceon 0 09-13-2023 Insurance Correspondence [id number]#1 .00TIFF Normal [facility] Outside Labson 09-13-2023 Outside Labs [id number]# 1.00TIFF Normal [facility] Outside Recordson 09-13-2023 Outside Records [id number]# 1.00TIFF Normal [facility] Outside Records [id number]# 1.00TIFF Normal [facility] Physician Orderon 09-13-2023 Physician Order [id number]# 1.00TIFF Normal [facility] RAD - CT Reporton 08-31-2023 RAD - CT Report [id number]#1. 00TIFF Normal [facility] COVID Quick Testingon 2022 Result Negative [employer] Other Quick Strepon 12-15-2022 S. pyogenes Org specific cx Ql (Throat) Negative [employer] Other Quick Strep [employer] Other COVID + FLU Quick Testingon 10-14-2022 SARS-CoV-2 (COVID-19) RNA AISSATOU+probe Ql (Unsp spec) Negative [employer] Other COVID + FLU Quick Testing Negative [employer] Other Quick Strepon 10-14-2022 S. pyogenes Org specific cx Ql (Throat) Negative [employer] Other Quick Strep [facility] Other Office Visit (Cardiology)on 06-24-2022 Follow-up visit Diagnoses/Problems Assessed Costochondritis (733.6) (M94.0) Palpitations (785.1) (R00.2) For the most part brief and fleeting, seem most consistent with PVC. Coronary artery disease involving [place] coronary artery of [place] heart without angina pectoris (414.01) (I25.10) Mar [...] contact the office if new symptoms arise. 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 Last week she presented to [facility] due to chest pain and dizziness. [...] and fluttering . 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 Due to blood pressure and palpitations [...] Recorded: 24Jun2022 09:32AM Heart Rate88, R Radial Nxtigllk046, RUE, Si (more content not included)... Normal [facility] Tobacco Screening.on 023 Adult depression screening assessment No -[facility] [employer] 250 DO Work Phone: Tobacco use status CPHS a) Yes [facility] [employer] 250 DO Work Phone: Tobacco Screening. Yes [facility] 250 DO Work Phone: Alanine aminotransferase [En zymatic activity/volume] in Serum or PlasmaOrdered By: Jes Cruz on 06-19-2022 ALT [Catalytic activity/Vol] 11 U/L 7-52 [facility] Albumin [Mass/volume] in Ser um or Plasma by Bromocresol green (BCG) dye binding methoOrdered By: Jes Cruz on 06-19-2022 Albumin BCG dye [Mass/Vol] 4.0 g/dL 3.5-5.7 [facility] Alkaline phosphatase [Enzyma tic activity/volume] in Serum or PlasmaOrdered By: Jes Cruz on 06-19-2022 ALP [Catalytic activity/Vol] 70 U/L 34-104 [facility] Aspartate aminotransferase [ Enzymatic activity/volume] in Serum or PlasmaOrdered By: Jes Cruz on 06-19-2022 AST [Catalytic activity/Vol] 11 U/L 13-39 [facility] Basophils Auto (Bld) [#/Vol] Ordered By: Jes Cruz on 06-19-2022 Basophils (Bld) [#/Vol] 0.1 10*3/uL 0.0-0.2 [facility] Basophils/100 WBC Auto (Bld) Ordered By: Jes Cruz on 06-19-2022 Basophils/100 WBC (Bld) 1.2 % . [facility] Bilirubin.total [Mass/volume ] in Serum or PlasmaOrdered By: Jes Cruz on 06-19-2022 Bilirubin [Mass/Vol] 0.2 mg/dL 0.3-1.0 [facility] C reactive protein [Mass/vol ume] in Serum or Plasma by High sensitivity methodOrdered By: Jes Cruz on 06-19-2022 CRP High sensitivity method [Mass/Vol] 0.4 mg/L 0.0-0.9 [facility] Comment on above: Cardiovascular Risk [...] on 06-19-2022 Calcium [Mass/Vol] 9.1 mg/dL 8.6-10.3 [facility] Carbon dioxide, total [Moles /volume] in Serum or PlasmaOrdered By: Jes Cruz on 06-19-2022 CO2 [Moles/Vol] 24.4 mmol/L 21.0-31.0 [facility] Chloride [Moles/volume] in S shanna or PlasmaOrdered By: Jes Cruz on 06-19-2022 Chloride [Moles/Vol] 108 mmol/L 98-107 [facility] Cholesterol [Mass/volume] in Serum or PlasmaOrdered By: Jes Cruz on 06-19-2022 Cholesterol [Mass/Vol] 190 mg/dL 140-200 [facility] Comment on above: Chol less than 200 m g/dl low riskChol 201-239 mg/dl borderline riskChol 240 mg/dl and greater high risk Cholesterol in LDL Calc [Mas s/Vol]Ordered By: Jes Cruz on 06-19-2022 Cholesterol in LDL [Mass/Vol] 74 mg/dL 0-100 [facility] Comment on above: LDL ATP III CLASSIFI CATIONLDL less than 100 mg/dL OptimalLDL 100-129 mg/dL Near or above optimalLDL 130-159 mg/dL Borderline highLDL 160-189 mg/dL HighLDL greater than 189 mg/dL Very high Cholesterol in VLDL Calc [Ma ss/Vol]Ordered By: Jes Cruz on 06-19-2022 Cholesterol in VLDL [Mass/Vol] 48 mg/dL [facility] Creatine kinase [Enzymatic a ctivity/volume] in Serum or PlasmaOrdered By: Jes Cruz on 06-19-2022 CK [Catalytic activity/Vol] 35 U/L 30-223 [facility] Creatine kinase.MB [Mass/vol ume] in Serum or PlasmaOrdered By: Jes Cruz on 06-19-2022 CK.MB [Mass/Vol] 2.3 ng/mL 0.6-6.3 [facility] Creatinine [Mass/volume] in Serum or PlasmaOrdered By: Jes Cruz on 06-19-2022 Creatinine [Mass/Vol] 0.79 mg/dL 0.60-1.20 [facility] Eosinophils Auto (Bld) [#/Vo l]Ordered By: Jes Cruz on 06-19-2022 Eosinophils (Bld) [#/Vol] 0.2 10*3/uL 0.0-0.45 [facility] Eosinophils/100 WBC Auto (Bl d)Ordered By: Jes Cruz on 06-19-2022 Eosinophils/100 WBC (Bld) 2.5 % . [facility] Erythrocyte distribution wid th Auto (RBC) [Ratio]Ordered By: Jes Cruz on 06-19-2022 Erythrocyte distribution width (RBC) [Ratio] 13.2 % 11.9-15.3 [facility] Globulin Calc (S) [Mass/Vol] Ordered By: Jes Cruz on 06-19-2022 Globulin (S) [Mass/Vol] 2.3 g/dL [facility] Glucose [Mass/volume] in Ser um or PlasmaOrdered By: Jes Cruz on 06-19-2022 Glucose [Mass/Vol] 94 mg/dL 74-109 [facility] Comment on above: ADA recommended refe rence rangeRandom Glucose Reference Range is dependent on time and content of last meal. Glucose of more than 200 mg/dL in a nonstressed, ambulatory subject supports the diagnosis of Diabetes Mellitus. Hematocrit Auto (Bld) [Volum e fraction]Ordered By: Jes Cruz on 06-19-2022 Hematocrit (Bld) [Volume fraction] 39.3 % 34.0-46.4 [facility] Hemoglobin [Mass/volume] in BloodOrdered By: Jes Cruz on 06-19-2022 Hemoglobin (Bld) [Mass/Vol] 13.1 g/dL 11.8-15.4 [facility] Laboratory - Chemistry and C hemistry - challengeOrdered By: Jes Cruz on 06-19-2022 GFR/1.73 sq M.predicted MDRD (S/P/Bld) [Vol rate/Area] mL/min/{1.73_m2} [facility] Leukocytes [#/volume] correc ricardo for nucleated erythrocytes in Blood by Automated counOrdered By: Jes Cruz on 06-19-2022 WBC corrected for nucl RBC Auto (Bld) [#/Vol] 8.2 10*3/uL 3.8-11.6 [facility] Lymphocytes Auto (Bld) [#/Vo l]Ordered By: Jes Cruz on 06-19-2022 Lymphocytes (Bld) [#/Vol] 2.5 10*3/uL 1.00-4.8 [facility] Lymphocytes/100 WBC Auto (Bl d)Ordered By: Jes Cruz on 06-19-2022 Lymphocytes/100 WBC (Bld) 30.3 % . [facility] MCH Auto (RBC) [Entitic mass ]Ordered By: Jes Cruz on 06-19-2022 MCH (RBC) [Entitic mass] 33.2 pg 24.7-34.3 [facility] MCHC Auto (RBC) [Mass/Vol]Or dered By: Jes Cruz on 06-19-2022 MCHC (RBC) [Mass/Vol] 33.4 g/dL 32.0-35.0 [facility] MCV Auto (RBC) [Entitic vol] Ordered By: Jes Cruz on 06-19-2022 MCV (RBC) [Entitic vol] 99.5 fL 80-100 [facility] Monocytes Auto (Bld) [#/Vol] Ordered By: Jes Cruz on 06-19-2022 Monocytes (Bld) [#/Vol] 1.0 10*3/uL 0.0-0.8 [facility] Monocytes/100 WBC Auto (Bld) Ordered By: Jes Cruz on 06-19-2022 Monocytes/100 WBC (Bld) 11.6 % . [facility] Natriuretic peptide B [Mass/ Vol]Ordered By: Jes Cruz on 06-19-2022 Natriuretic peptide B (Bld) [Mass/Vol] 87.0 pg/mL 5-100 [facility] Neutrophils Auto (Bld) [#/Vo l]Ordered By: Jes Cruz on 06-19-2022 Neutrophils (Bld) [#/Vol] 4.5 10*3/uL 1.8-7.7 [facility] Neutrophils/100 WBC Auto (Bl d)Ordered By: Jes Cruz on 06-19-2022 Neutrophils/100 WBC (Bld) 54.4 % . [facility] No Panel InformationOrdered By: Jes Cruz on 06-19-2022 Pharmacy Creatinine Clearance (Chem N/A [facility] Nucleated erythrocytes [Pres ence] in Blood by Automated countOrdered By: Jes Cruz on 06-19-2022 Nucleated RBC Auto Ql (Bld) 0.2 /100{WBC} 0-0.5 [facility] Platelet mean volume Auto (B ld) [Entitic vol]Ordered By: Jes Cruz on 06-19-2022 Platelet mean volume (Bld) [Entitic vol] 10.2 fL 6.3-10.7 [facility] Platelets Auto (Bld) [#/Vol] Ordered By: Jes Cruz on 06-19-2022 Platelets (Bld) [#/Vol] 297 10*3/uL 150-450 [facility] Potassium [Moles/volume] in Serum or PlasmaOrdered By: Jes Cruz on 06-19-2022 Potassium [Moles/Vol] 4.3 mmol/L 3.5-5.1 [facility] Protein [Mass/volume] in Ser um or PlasmaOrdered By: Jes Cruz on 06-19-2022 Protein [Mass/Vol] 6.3 g/dL 6.4-8.9 [facility] RBC Auto (Bld) [#/Vol]Ordere d By: Jes Cruz on 06-19-2022 RBC (Bld) [#/Vol] 3.95 10*6/uL 3.60-5.00 [facility] Serum or plasma albumin/glob ulin mass ratioOrdered By: Jes Cruz on 06-19-2022 Albumin/Globulin [Mass ratio] 1.7 {ratio} [facility] Serum or plasma anion gap de terminationOrdered By: Jes Cruz on 06-19-2022 Anion gap [Moles/Vol] 10.9 mmol/L 6.0-15.0 [facility] Serum or plasma creatine kin ase MB (CKMB)/total creatine kinase (CK) ratio by calculaOrdered By: Jes Cruz on 06-19-2022 CK.MB Calc [Catalytic fraction] 6.5 % 0.00-2.50 [facility] Serum or plasma high density lipoprotein (HDL) cholesterol measurementOrdered By: Jes Cruz on 06-19-2022 Cholesterol in HDL [Mass/Vol] 68 mg/dL 35-85 [facility] Comment on above: HDL CHOL ATP-III CLA SSIFICATION Cardiovascular RiskHDL > or equal to 60 mg/dL LOWHDL < 40 mg/dL HIGH Serum or plasma total choles terol/high density lipoprotein (HDL) cholesterol mass ratOrdered By: Jes Cruz on 06-19-2022 Cholesterol.total/Adela sterol in HDL [Mass ratio] 2.8 {ratio} <5.0 [facility] Sodium [Moles/volume] in Ser um or PlasmaOrdered By: Jes Cruz on 06-19-2022 Sodium [Moles/Vol] 139 mmol/L 136-145 [facility] Thyrotropin [Units/volume] i n Serum or PlasmaOrdered By: Jes Cruz on 06-19-2022 TSH Qn 2.33 m[IU]/L 0.45-5.33 [facility] Thyroxine (T4) free [Mass/vo lume] in Serum or PlasmaOrdered By: Jes Cruz on 06-19-2022 Free T4 [Mass/Vol] 0.63 ng/dL 0.61-1.12 [facility] Triglyceride [Mass/volume] i n Serum or PlasmaOrdered By: Jes Cruz on 06-19-2022 Triglyceride [Mass/Vol] 241 mg/dL 0-149 [facility] Comment on above: TRIG ATP III CLASSIF ICATIONTRIG less than 150 mg/dL NormalTRIG 150-199 mg/dL Borderline highTRIG 200-500 mg/dL High TRIG greater than 500 mg/dL Very highStandard traceable to the Center for Disease Conrtrol and Prevention (CDC) test method. Urea nitrogen [Mass/volume] in Serum or PlasmaOrdered By: Jes Cruz on 06-19-2022 Urea nitrogen [Mass/Vol] 9 mg/dL 7- [facility] WBC Auto (Bld) [#/Vol]Ordere d By: Jes Cruz on 06-19-2022 WBC (Bld) [#/Vol] 8.2 10*3/uL 3.8-11.6 [facility] CARDIAC BJORN ADMITon 023 CK [Catalytic activity/Vol] 54 U/L Normal 26-192 [facility] Comment on above: Performed By: #### C JORDAN, CMP #### [facility] [address] [address] [address] Howard Guthrie CK.MB [Mass/Vol] 1.70 ng/mL Normal <=3.60 [facility] Comment on above: Performed By: #### C JORDAN, CMP #### [facility] [address] [address] [address] Howard Guthrie HSTROP <4.0 Normal 4.0-51.3 [facility] Comment on above: Result Comment: CUT- OFF POINTS HAVE BEEN ESTABLISHED BASED ON THE FOURTH UNIVERSAL DEFINITIONS OF MYOCARDIAL INFARCTION. THE UPPER REFERENCE LIMIT (URL) OF TROPONIN, DEFINED THE 99TH PERCENTILE OF cTnI DISTRIBUTION IN A REFERENCE POPULATION, HAS BEEN CONFIRMED THE DECISION THRESHOLD FOR LA DIAGNOSIS. Performed By: #### C MADM, CMP #### [facility] [address] [address] [address] Howard Guthrie NYA 23 ng/mL Normal 9-82 [facility] Comment on above: Performed By: #### C MADM, CMP #### [facility] [address] [address] [address] Howard Guthrie CBC AUTO DIFFon 06-17-2022 BASO # 0.1 103/ul Normal 0.0-0.1 [facility] Comment on above: Performed By: #### C BC #### [facility] [address] [place] [address] Dr. Howard Guthrie Basophils/100 WBC (Bld) 1.0 % Normal 0.2-2.0 [facility] Comment on above: Performed By: #### C BC #### [facility] [address] [place] [address] Dr. Howard Guthrie EO # 0.2 103/ul Normal 0.0-0.7 [facility] Comment on above: Performed By: #### C BC #### [facility] [address] [place] [address] Dr. Howard Guthrie Eosinophils/100 WBC (Bld) 2.9 % Normal 0.9-7.0 [facility] Comment on above: Performed By: #### C BC #### [facility] [address] [place] [address] Dr. Howard Guthrie Erythrocyte distribution width (RBC) [Ratio] 12.7 % Normal 11.0-15.0 [facility] Comment on above: Performed By: #### C BC #### [facility] [address] [place] [address] Dr. Howard Guthrie Hematocrit (Bld) [Volume fraction] 42.5 % Normal 36.0-48.0 [facility] Comment on above: Performed By: #### C BC #### [facility] [address] [place] [address] Dr. Howard Guthrie Hemoglobin (Bld) [Mass/Vol] 14.7 g/dL Normal 12.0-16.0 [facility] Comment on above: Performed By: #### C BC #### [facility] [address] [place] [address] Dr. Howard Guthrie IG # 0.02 10e3/ul Normal 0.00-0.03 [facility] Comment on above: Performed By: #### C BC #### [facility] [address] [place] [address] Dr. Howard Guthrie IG % 0.3 % Normal 0.0-0.5 [facility] Comment on above: Performed By: #### C BC #### [facility] [address] [address] [address] Howard Guthrie LYMPH # 2.1 103/ul Normal 1.2-3.8 [facility] Comment on above: Performed By: #### C BC #### [facility] [address] [address] [address] Howard Guthrie Lymphocytes/100 WBC (Bld) 28.4 % Normal 20.5-60.0 [facility] Comment on above: Performed By: #### C BC #### [facility] [address] [place] [address] Dr. Howard Guthrie MANUAL DIFF REQ NO Normal [facility] Comment on above: Performed By: #### C BC #### [facility] [address] [place] [address] Dr. Howard Guthrie MCH (RBC) [Entitic mass] 33.1 pg Normal 26.7-34.0 [facility] Comment on above: Performed By: #### C BC #### [facility] [address] [place] [address] Dr. Howard Guthrie MCHC (RBC) [Mass/Vol] 34.6 g/dL Normal 29.9-35.2 [facility] Comment on above: Performed By: #### C BC #### [facility] [address] [place] [address] Dr. Howard Guthrie MCV (RBC) [Entitic vol] 95.7 fL Normal 81.0-99.0 [facility] Comment on above: Performed By: #### C BC #### [facility] [address] [address] [address] Howard Guthrie MONO # 1.0 103/ul Critically high 0.3-0.8 [facility] Comment on above: Performed By: #### C BC #### [facility] [address] [place] [address] Dr. Howard Guthrie Monocytes/100 WBC (Bld) 13.1 % Critically high 1.7-12. 0 [facility] Comment on above: Performed By: #### C BC #### [facility] [address] [address] [address] Howard Guthrie NEUT # 4.0 103/ul Normal 1.4-6.5 [facility] Comment on above: Performed By: #### C BC #### [facility] [address] [address] [address] Howard Guthrie Neutrophils/100 WBC (Bld) 54.3 % Normal 43.0-75.0 [facility] Comment on above: Performed By: #### C BC #### [facility] [address] [address] [address] Howard Guthrie Platelet mean volume (Bld) [Entitic vol] 10.0 fL Normal 9.5-13.5 [facility] Comment on above: Performed By: #### C BC #### [facility] [address] [place] [address] Dr. Howard Guthrie PLT 343 103/ul Normal 150-450 [facility] Comment on above: Performed By: #### C BC #### [facility] [address] [place] [address] Dr. Howard Guthrie RBC 4.44 106/ul Normal 4.20-5.40 [facility] Comment on above: Performed By: #### C BC #### [facility] [address] [place] [address] Dr. Howard Guthrie WBC 7.4 103/ul Normal 4.0-11.0 [facility] Comment on above: Performed By: #### C BC #### [facility] [address] [place] [address] Dr. Howard Guthrie D-DIMERon 06-17-2022 D-DIMER 0.43 mg/L FEU Normal <=0.[address] [facility] Comment on above: Performed By: #### D DIM #### [facility] [address] [place] [address] Dr. Howard Guthrie D-DIMER COMMENTS SEE BELOW Normal The [facility] Comment on above: Result Comment: Incr eases [...] hospitalization. Performed By: #### D DIM #### [facility] [address] [place] [address] Dr. Howard Guthrie ER URINE PROFILEon 3 Bilirubin Ql (U) Negative Normal NEGATIVE [facility] Comment on above: Performed By: #### U MICRO, ERUR #### [facility] [address] [place] [address] Dr. Howard Guthrie Clarity (U) CLEAR Normal CLEAR [facility] Comment on above: Performed By: #### U MICRO, ERUR #### [facility] [address] [place] [address] Dr. Howard Guthrie Color (U) LT. YELLOW Normal YELLOW [facility] Comment on above: Performed By: #### U MICRO, ERUR #### [facility] [address] [place] [address] Dr. Howard MILLS A micrscopic examination will be performed if indicated. Normal [facility] Comment on above: Performed By: #### U MICRO, ERUR #### [facility] [address] [place] [address] Dr. Howard Guthrie Glucose Ql (U) Negative Normal NEGATIVE [facility] Comment on above: Performed By: #### U MICRO, ERUR #### [facility] [address] [place] [address] Dr. Howard Guthrie Hemoglobin Ql (U) SMALL Abnormal NEGATIVE [facility] Comment on above: Performed By: #### U MICRO, ERUR #### [facility] [address] [place] [address] Dr. Hwoard Guthrie Ketones Ql (U) Negative Normal NEGATIVE [facility] Comment on above: Performed By: #### U MICRO, ERUR #### [facility] [address] [place] [address] Dr. Howard Guthrie LEUKOCYTES Negative Normal NEGATIVE [facility] Comment on above: Performed By: #### U MICRO, ERUR #### [facility] [address] [place] [address] Dr. Howard Guthrie Nitrite Ql (U) Negative Normal NEGATIVE [facility] Comment on above: Performed By: #### U MICRO, ERUR #### [facility] [address] [address] [address] Howard Guthrie pH (U) 7.0 [pH] Normal 5-9 [facility] Comment on above: Performed By: #### U MICRO, ERUR #### [facility] [address] [place] [address] Dr. Howard Guthrie SPEC GRAVITY 1.015 Normal 1.005-<=1.0 25 [facility] Comment on above: Performed By: #### U MICRO, ERUR #### [facility] [address] [place] [address] Dr. Howard Guthrie UA PROTEIN Negative Normal NEGATIVE/ TRACE [facility] Comment on above: Performed By: #### U MICRO, ERUR #### [facility] [address] [place] [address] Dr. Howard Guthrie UR MICRO IND INDICATED Normal [facility] Comment on above: Performed By: #### U MICRO, ERUR #### [facility] [address] [place] [address] Dr. Howard Guthrie Urobilinogen Qn (U) 0.2 {Abdiaziz'U}/dL Normal 0.2 - 1. 0 [facility] Comment on above: Performed By: #### U MICRO, ERUR #### [facility] [address] [place] [address] Dr. Howard Guthrie PROF 14(COMP METB)on 023 Albumin [Mass/Vol] 3.8 g/dL Normal 3.4-5.0 [facility] Comment on above: Performed By: #### C MADM, CMP #### [facility] [address] [place] [address] Dr. Howard Guthrie Albumin/Globulin [Mass ratio] 1.1 {ratio} Normal [facility] Comment on above: Performed By: #### C JORDAN, CMP #### [facility] [address] [address] [address] Howard Guthrie ALP [Catalytic activity/Vol] 96 U/L Normal 46-116 [facility] Comment on above: Performed By: #### C JORDAN, CMP #### [facility] [address] [address] [address] Howard Guthrie ALT [Catalytic activity/Vol] 19 U/L Normal 14-59 [facility] Comment on above: Performed By: #### C JORDAN, CMP #### [facility] [address] [address] [address] Howard Guthrie Anion gap [Moles/Vol] 11.2 mmol/L Normal [facility] Comment on above: Performed By: #### C JORDAN, CMP #### [facility] [address] [address] [address] Howard Guthrie AST [Catalytic activity/Vol] 19 U/L Normal 15-37 [facility] Comment on above: Performed By: #### C JORDAN, CMP #### [facility] [address] [address] [address] Howard Guthrie Bilirubin [Mass/Vol] 0.5 mg/dL Normal 0.2-1.0 [facility] Comment on above: Performed By: #### C JORDAN, CMP #### [facility] [address] [address] [address] Howard Guthrie Calcium [Mass/Vol] 8.8 mg/dL Normal 8.5-10.1 [facility] Comment on above: Performed By: #### C JORDAN, CMP #### [facility] [address] [address] [address] Howard Guthrie Chloride [Moles/Vol] 104 mmol/L Normal 98-107 [facility] Comment on above: Performed By: #### C JORDAN, CMP #### [facility] [address] [address] [address] Howard Guthrie CO2 [Moles/Vol] 24.1 mmol/L Normal 21.0-32.0 [facility] Comment on above: Performed By: #### C JORDAN, CMP #### [facility] [address] [address] [address] Howard Guthrie Creatinine [Mass/Vol] 0.73 mg/dL Normal 0.55-1.02 [facility] Comment on above: Performed By: #### C JORDAN, CMP #### [facility] [address] [address] [address] Howard Guthrie EGFR-AF ETHIOPIAN >60 Normal >=60 [facility] Comment on above: Performed By: #### C JORDAN, CMP #### [facility] [address] [address] [address] Howard Guthrie EGFR-NON AF ETHIOPIAN >60 Normal >=60 [facility] Comment on above: Performed By: #### C JORDAN, CMP #### [facility] [address] [address] [address] Howard Guthrie Globulin (S) [Mass/Vol] 3.6 g/dL Normal [facility] Comment on above: Performed By: #### C JORDAN, CMP #### [facility] [address] [address] [address] Howard Guthrie Glucose [Mass/Vol] 112 mg/dL Critically high 74-106 [facility] Comment on above: Performed By: #### C JORDAN, CMP #### [facility] [address] [address] [address] Howard Guthrie Potassium [Moles/Vol] 3.3 mmol/L Critically low 3.5-5.1 [facility] Comment on above: Performed By: #### C JORDAN, CMP #### [facility] [address] [address] [address] Howard Guthrie Protein [Mass/Vol] 7.4 g/dL Normal 6.4-8.2 [facility] Comment on above: Performed By: #### C JORDAN, CMP #### [facility] [address] [address] [address] Howard Guthrie Sodium [Moles/Vol] 136 mmol/L Normal 136-[address] [facility] Comment on above: Performed By: #### C JORDAN, CMP #### [facility] [address] [place] [address] Dr. Howard Guthrie Urea nitrogen [Mass/Vol] 6.0 mg/dL Critically low 7.0-18.0 [facility] Comment on above: Performed By: #### C JORDAN, CMP #### [facility] [address] [place] [address] Dr. Howard Guthrie Urea nitrogen/Creatinine [Mass ratio] 8.2 mg/mg Normal [facility] Comment on above: Performed By: #### C JORDAN, CMP #### [facility] [address] [place] [address] Dr. Howard Guthrie TROPONIN, HIGH SENSITIVITYon 06-17-2022 HSTROP 4.6 pg/mL Normal 4.0-51.3 [facility] Comment on above: Result Comment: CUT- OFF POINTS HAVE BEEN ESTABLISHED BASED ON THE FOURTH UNIVERSAL DEFINITIONS OF MYOCARDIAL INFARCTION. THE UPPER REFERENCE LIMIT (URL) OF TROPONIN, DEFINED THE 99TH PERCENTILE OF cTnI DISTRIBUTION IN A REFERENCE POPULATION, HAS BEEN CONFIRMED THE DECISION THRESHOLD FOR LA DIAGNOSIS. Performed By: #### H STROPN #### [facility] [address] [place] [address] Dr. Howard Guthrie URINE MICROSCOPIC ONLYon BACTERIA TRACE Abnormal NONE SEEN [facility] Comment on above: Performed By: #### U MICRO, ERUR #### [facility] [address] [place] [address] Dr. Howard Guthrie Bacteria identified Cx Nom (U) NOT INDICATED Normal [facility] Comment on above: Performed By: #### U MICRO, ERUR #### [facility] [address] [place] [address] Dr. Howard Guthrie CAST NONE SEEN Normal NONE SEEN [facility] Comment on above: Performed By: #### U MICRO, ERUR #### [facility] [address] [place] [address] Dr. Howard Guthrie Crystals LM Nom (Urine sed) NONE SEEN Normal NONE SEEN [facility] Comment on above: Performed By: #### U MICRO, ERUR #### [facility] [address] [address] [address] Howard Guthrie Epithelial cells LM Ql (Urine sed) FEW Abnormal NONE SEEN /RARE [facility] Comment on above: Performed By: #### U MICRO, ERUR #### [facility] [address] [address] [address] Howard Guthrie MUCOUS TRACE Abnormal NONE SEEN [facility] Comment on above: Performed By: #### U MICRO, ERUR #### [facility] [address] [address] [address] Howard Guthrie RBC 2-5 Abnormal 0-2 [facility] Comment on above: Performed By: #### U MICRO, ERUR #### [facility] [address] [place] [address] Dr. Howard Guthrie WBC NONE SEEN Normal NONE SEEN [facility] Comment on above: Performed By: #### U MICRO, ERUR #### [facility] [address] [place] [address] Dr. Howard Guthrie XR CHEST 1 Von [...] NICK MARIE Date: 2022-06-17 12:26 Normal [facility] Tobacco Screening.on 022 Adult depression screening assessment No [facility] DO Work Phone: Tobacco use status CPHS a) Yes M [facility] 250 DO Work Phone: Tobacco Screening. Yes [facility] 250 DO Work Phone: Vital Signs Date Time Vital Sign Value Performing Clinician Tonja figueroa 08-24-2024 12:42-0400 Body height 165.1 cm Jes Cruz MAILING CLERK-C Work Phone: [facility] 08-24-2024 12:42-0400 Body mass index (BMI) [Ratio] 23.5 kg/m2 Jes Cruz MAILING CLERK-C Work Phone: [facility] 08-24-2024 12:42-0400 Body temperature 98.5 [degF] Jes Cruz MAILING CLERK-C Work Phone: [facility] 08-24-2024 12:42-0400 Body weight 64.06 kg Jes Cruz MAILING CLERK-C Work Phone: [facility] 08-24-2024 12:42-0400 Diastolic blood pressure 79 mm[Hg] Jes Cruz MAILING CLERK-C Work Phone: [facility] 08-24-2024 12:42-0400 Heart rate 78 /min Jes Cruz MAILING CLERK-C Work Phone: [facility] 08-24-2024 12:42-0400 Respiratory rate 14 /min Jes Cruz MAILING CLERK-C Work Phone: [facility] 08-24-2024 12:42-0400 SaO2% (BldA) [Mass fraction] 98 % Jes Cruz MAILING CLERK-C Work Phone: [facility] 08-24-2024 12:42-0400 Systolic blood pressure 122 mm[Hg] Jes Cruz MAILING CLERK-C Work Phone: [facility] 08-15-2024 09:44-0400 Blood Pressure Location Roosevelt Sotelo [facility] 08-15-2024 09:44-0400 Diastolic blood pressure 79 mm[Hg] Roosevelt Sotelo [facility] 08-15-2024 09:44-0400 Heart rate 71 /min Roosevelt Sotelo [facility] 08-15-2024 09:44-0400 Respiratory rate 18 /min Roosevelt Sotelo [facility] 08-15-2024 09:44-0400 SaO2% (BldA) [Mass fraction] 98 % Roosevelt Sotelo [facility] 08-15-2024 09:44-0400 Systolic blood pressure 116 mm[Hg] Roosevelt Sotelo [facility] 02-16-2024 09:35-0500 Blood Pressure Location Roosevelt Sotelo [facility] 02-16-2024 09:35-0500 Diastolic blood pressure 80 mm[Hg] Roosevelt Sotelo [facility] 02-16-2024 09:35-0500 Heart rate 76 /min Roosevelt Sotelo [facility] 02-16-2024 09:35-0500 Respiratory rate 18 /min Roosevelt Sotelo [facility] 02-16-2024 09:35-0500 SaO2% (BldA) [Mass fraction] 100 % Roosevelt Sotelo [facility] 02-16-2024 09:35-0500 Systolic blood pressure 130 mm[Hg] Roosevelt Sotelo [facility] 09-13-2023 13:06-0400 Blood Pressure Location Roosevelt Sotelo [facility] 09-13-2023 13:06-0400 Diastolic blood pressure 85 mm[Hg] Roosevelt Sotelo [facility] 09-13-2023 13:06-0400 Heart rate 90 /min Roosevelt Sotelo [facility] 09-13-2023 13:06-0400 SaO2% (BldA) [Mass fraction] 99 % Roosevelt Sotelo [facility] 09-13-2023 13:06-0400 Systolic blood pressure 125 mm[Hg] Roosevelt Sotelo [facility] 08-10-2023 09:19-0400 Blood Pressure Location JES ROLLE [facility] 08-10-2023 09:19-0400 Body temperature 98.24 [degF] JES ELSA [facility] 08-10-2023 09:19-0400 Diastolic blood pressure 78 mm[Hg] JES ELSA [facility] 08-10-2023 09:19-0400 Heart rate 80 /min JES ELSA [facility] 08-10-2023 09:19-0400 Respiratory rate 19 /min JES ELSA [facility] 08-10-2023 09:19-0400 Systolic blood pressure 136 mm[Hg] JES ELSA [facility] 03-22-2023 13:16-0500 Blood Pressure Location Ramone Garcia [facility] 03-22-2023 13:16-0500 Diastolic blood pressure 85 mm[Hg] Ramone Garcia [facility] 03-22-2023 13:16-0500 Heart rate 90 /min Ramone Garcia [facility] 03-22-2023 13:16-0500 SaO2% (BldA) [Mass fraction] 99 % Ramone Garcia [facility] 03-22-2023 13:16-0500 Systolic blood pressure 126 mm[Hg] Ramone Garcia [facility] 12-15-2022 13:20-0400 Body height 165.1 cm Loretta Javier Other [facility] Other 12-15-2022 13:20-0400 Body mass index (BMI) [Ratio] 23.13 kg/m2 Loretta Javier Other [facility] Other 12-15-2022 13:20-0400 Body temperature 98.1 [degF] Loretta Javier Other [facility] Other 12-15-2022 13:20-0400 Body weight 63.05 kg Loretta Javier Other [facility] Other 12-15-2022 13:20-0400 Diastolic blood pressure 76 mm[Hg] Loretta Javier Other [facility] Other 12-15-2022 13:20-0400 Respiratory rate 18 /min Loretta Javier Other [facility] Other 12-15-2022 13:20-0400 SaO2% (BldA) [Mass fraction] 98 % Loretta Javier Other [facility] Other 12-15-2022 13:20-0400 Systolic blood pressure 128 mm[Hg] Loretta Javier Other [facility] Other 10-14-2022 11:10-0400 Body height 165.1 cm Tanya Glover Other [facility] Other 10-14-2022 11:10-0400 Body mass index (BMI) [Ratio] 23.39 kg/m2 Tanya Glover Other [facility] Other 10-14-2022 11:10-0400 Body temperature 97.8 [degF] Tanya Glover Other [facility] Other 10-14-2022 11:10-0400 Body weight 63.78 kg Tanya Glover Other [facility] Other 10-14-2022 11:10-0400 Diastolic blood pressure 85 mm[Hg] Tanya Glover Other [facility] Other 10-14-2022 11:10-0400 Respiratory rate 18 /min Tanya Glover Other [facility] Other 10-14-2022 11:10-0400 SaO2% (BldA) [Mass fraction] 99 % Tanya Glover Other [facility] Other 10-14-2022 11:10-0400 Systolic blood pressure 143 mm[Hg] Tanya Glover Other [facility] Other 06-24-2022 09:32-0400 Body height 165.1 cm No PCP None -[facility] 250 DO Work Phone: 06-24-2022 09:32-0400 Body mass index (BMI) [Ratio] 24.63 kg/m2 No PCP None -[facility] DO Work Phone: 06-24-2022 09:32-0400 Body surface area Derived from formula 1.74 m2 No PCP None [facility] 250 DO Work Phone: 06-24-2022 09:32-0400 Body weight 67.13 kg No PCP None [facility] 250 DO Work Phone: 06-24-2022 09:32-0400 Diastolic blood pressure 82 mm[Hg] No PCP None [facility] 250 DO Work Phone: 06-24-2022 09:32-0400 Heart rate 88 /min No PCP None [facility] 250 DO Work Phone: 06-24-2022 09:32-0400 Systolic blood pressure 124 mm[Hg] No PCP None [facility] 250 DO Work Phone: 06-02-2021 15:09-0500 Diastolic blood pressure 98 mm[Hg] No PCP None [facility] 250 DO Work Phone: 06-02-2021 15:09-0500 Systolic blood pressure 142 mm[Hg] No PCP None [facility] 250 DO Work Phone: 06-02-2021 15:03-0500 Body height 165.1 cm No PCP None [facility] 250 DO Work Phone: 06-02-2021 15:03-0500 Body mass index (BMI) [Ratio] 28.29 kg/m2 No PCP None [facility] 250 DO Work Phone: 06-02-2021 15:03-0500 Body surface area Derived from formula 1.85 m2 No PCP None [facility] 250 DO Work Phone: 06-02-2021 15:03-0500 Body weight 77.11 kg No PCP None [facility] 250 DO Work Phone: 06-02-2021 15:03-0500 Diastolic blood pressure 90 mm[Hg] No PCP None [facility] 250 DO Work Phone: 06-02-2021 15:03-0500 Heart rate 92 /min No PCP None [facility] DO Work Phone: 06-02-2021 15:03-0500 Systolic blood pressure 142 mm[Hg] No PCP None [facility] 250 DO Work Phone: Encounters Encounter Date Encounter Type Care Provider Facility Start: 09-27-2024 End: 09-28-2024 Pre-admission assessment Roosevelt Sotelo [facility] Start: 08-24-2024 End: 08-24-2024 ambulatory Jes Cruz MAILING CLERK-C Work Phone: [facility] Work Phone: Start: 08-24-2024 End: 08-24-2024 Patient encounter procedure Jes Cruz MAILING CLERK-C Work Phone: [facility] Work Phone: Start: 08-15-2024 End: 08-15-2024 ambulatory PA-C Roosevelt Sotelo Facility:[facility] Start: 08-15-2024 End: 08-15-2024 Patient encounter procedure Roosevelt Sotelo [facility] Start: 05-24-2024 End: 05-24-2024 ambulatory CHLOE CHIKIS [facility] Start: 04-10-2024 End: 04-10-2024 ambulatory JES ROLLE Facility:[facility] Start: 04-10-2024 End: 04-10-2024 Patient encounter procedure JES ROLLE [facility] Start: 03-27-2024 End: 03-27-2024 ambulatory Alexandro PARTIDA Facility:[facility] Start: 03-27-2024 End: 03-27-2024 Patient encounter procedure Alexandro PARTIDA [facility] [place] Start: 03-23-2024 End: 03-23-2024 ambulatory [facility] Start: 03-09-2024 End: 03-09-2024 Evaluation and management of inpatient [facility] Start: 03-09-2024 End: 03-10-2024 Evaluation and management of inpatient [facility] Start: 03-06-2024 End: 03-06-2024 ambulatory Alexandro PARTIDA Facility:[facility] Start: 03-06-2024 End: 03-06-2024 Patient encounter procedure [facility] PARTIDA [facility] Start: 02-24-2024 End: 02-24-2024 ambulatory [facility] Start: 02-24-2024 End: 02-24-2024 ambulatory [facility] Start: 02-18-2024 End: 02-18-2024 ambulatory Alexandro PARTIDA Facility:[facility] Start: 02-18-2024 End: 02-18-2024 Patient encounter procedure Alexandro PARTIDA [facility] Start: 02-16-2024 End: 02-17-2024 ambulatory Alexandro PARTIDA Facility:[id number] Start: 02-16-2024 End: 02-16-2024 Patient encounter procedure Roosevelt Sotelo [facility] Start: 02-16-2024 End: 02-16-2024 Preprocedural examination done Roosevelt Sotelo [facility] Start: 02-04-2024 End: 02-15-2024 Pre-admission assessment Roosevelt Sotelo [facility] Start: 01-27-2024 End: 01-27-2024 ambulatory [facility] Start: 01-25-2024 End: 01-25-2024 ambulatory [facility] Start: 01-25-2024 End: 01-25-2024 ambulatory [facility] Start: 01-07-2024 End: 01-07-2024 ambulatory PA-C Roosevelt Sotelo Facility:[facility] Start: 01-07-2024 End: 01-07-2024 Patient encounter procedure Roosevelt Sotelo [facility] Start: 12-17-2023 End: 12-17-2023 ambulatory [facility] Start: 12-14-2023 End: 12-14-2023 ambulatory [facility] Start: 12-02-2023 End: 12-02-2023 Patient encounter procedure MAILING CLERK-C Jes Cruz Work Phone: [facility] [address] Work Phone: Start: 12-02-2023 End: 12-02-2023 ambulatory MAILING CLERK-C Jes Cruz Work Phone: [facility] Work Phone: Start: 11-26-2023 ambulatory Alexandro PARTIDA Facili ty:[facility] Start: 11-25-2023 End: 11-25-2023 ambulatory Alexandro PARTIDA Facility:[id number] Start: 11-01-2023 End: 11-01-2023 Patient encounter procedure MAILING CLERK-Terrie Cruz Work Phone: [facility] [address] [place] Work Phone: Start: 11-01-2023 End: 11-01-2023 ambulatory MAILING CLERK-C Jes Cruz Work Phone: [facility] Work Phone: Start: 10-14-2023 End: 10-14-2023 ambulatory JES ROLLE Facility:[facility] Start: 10-14-2023 End: 10-14-2023 Patient encounter procedure JES ROLLE [facility] Start: 10-12-2023 Non-patient / Non-visit MAILING CLERK-C Tayla Cruz Work Phone: [facility] Work Phone: Start: 10-05-2023 End: 10-05-2023 ambulatory Alexandro PARTIDA Facility:[facility] Start: 10-05-2023 End: 10-05-2023 Patient encounter procedure Alexandro PARTIDA [facility] Start: 09-18-2023 End: 09-19-2023 Emergency department patient visit [facility] Start: 09-13-2023 End: 09-13-2023 ambulatory XXXX NONE Facility:[facility] Start: 09-13-2023 End: 09-13-2023 Patient encounter procedure Roosevelt Sotelo [facility] Start: 09-11-2023 Non-patient / Non-visit MAILING CLERK-C Tayla Cruz Work Phone: [facility] ER Work Phone: Start: 08-10-2023 End: 08-10-2023 Lab Drop off JES ROLLE [facility] Start: 08-10-2023 End: 08-10-2023 Patient encounter procedure JES ROLLE [facility] Start: 04-16-2023 End: 04-16-2023 Patient encounter procedure Ramone Garcia [facility] Start: 03-22-2023 End: 03-22-2023 Patient encounter procedure Ramone Garcia [facility] Start: 12-15-2022 End: 12-15-2022 ambulatory Loretta Javier Other [facility] Other Start: 12-15-2022 Office outpatient vi sit 25 minutes Loretta Javier [facility] Start: 10-14-2022 End: 10-14-2022 ambulatory Tanya Belen Other [facility] Other Start: 10-14-2022 Office outpatient vi sit 15 minutes Tanya Belen [facility] Start: 08-14-2022 ambulatory Ms. Jes Cruz Facility: Start: 08-14-2022 FUV, Provider: Nadia Franks, Status: Pen, Time: 1:00 PM No PCP None [facility] 250 DO Work Phone: Start: 08-06-2022 Rx Renewal No PCP None [facility] 250 DO Work Phone: Start: 06-24-2022 Office outpatient vi sit 15 minutes No PCP None [facility] 250 DO Work Phone: Start: 06-24-2022 ambulatory Ms. Zuniga Tanvi Peter Facility: Start: 06-19-2022 End: 06-19-2022 ambulatory PHYSICIAN NO [facility] Work Phone: Start: 06-19-2022 End: 06-19-2022 Departed Referred PHYSICIAN NO [facility] Start: 06-17-2022 End: 06-17-2022 ambulatory RIVER MARTE . Facility: Start: 11-10-2021 ambulatory Ms. Nadia Peter Facility: Start: 10-27-2021 Rx Renewal No PCP None [facility] 250 DO Work Phone: Start: 06-02-2021 Office outpatient vi sit 25 minutes No PCP None [facility] 250 DO Work Phone: Procedures Date Procedure Procedure Detail Performing Clinician Start: 08-24-2024 X-ray of right foot Kim GARCIAC Work Phone: Start: 02-17-2024 Insertion of single incision mid-urethral mini-sling Alexandro PARTIDA Start: 12-02-2023 MR lumbar spine wo con MAILING CLERK-C Jes Cruz Work Phone: Start: 11-01-2023 Urine culture MAILING CLERK-C Andree Cruz Work Phone: Start: 10-05-2023 Cystourethroscopy wi th dilation of urethral stricture JES ROLLE Cardiac catheter (ph ysical object) Ramone Garcia Cardiac catheterization No P CP None Colonoscopy Ramone sanchez ft (qualifier value) Roosevelt Sotelo Comment on above: Foot surgery; [facility] Hysterectomy Ramone sanchez Operative procedure on foot No PCP None Procedure on back No PCP Non e Procedure on back Ramone salomon Plan of Treatment Date Care Activity Detail Author Start: 11-01-2023 Bacteria identified in Urine by Culture [facility] Start: 08-14-2022 FUV, Provider: Nadia Franks, Status: Pen, Time: 1:00 PM FUV, Provider: Nadia Franks, Status: Pen, Time: 1:00 PM [facility] 250 DO Work Phone: Start: 11-10-2021 FUV, Provider: Nadia Franks, Status: Pen, Time: 3:00 PM FUV, Provider: Nadia Franks, Status: Pen, Time: 3:00 PM [facility] 250 DO Work Phone: Start: 06-30-2021 FUV, Provider: Nadia Franks, Status: Pen, Time: 8:00 AM [facility]UV, Provider: Nadia Franks, Status: Pen, Time: 8:00 AM [facility] 250 DO Work Phone: Estradiol (E2) [Mass/volume] in Serum or Plasma [facility] Lutropin [Units/volu me] in Serum or Plasma [facility] XR Foot - right GE 3 Views [facility] Immunizations Immunization Date Immunization Notes Care Provider Jennifer lacy 03-25-2021 influenza, injectabl e, quadrivalent, preservative free No PCP None [facility] 01-05-2020 influenza, injectabl e, quadrivalent, preservative free No PCP None [facility] 250 DO Work Phone: 01-06-2019 influenza, injectabl e, quadrivalent, preservative free [facility] Payers Date Payer Category Payer Medicaid [id number] 2023 Self-pay [id number] 1971 Unknown [id number] .16.840.1.092742.3.579.2. 593 1971 Unknown [id number] 2.16.840.1.067187.3.579.2. 356 1971 Unknown [id number] 2.16.840.1.250313.3.579.2. 356 1971 Unknown [id number] 2.16.840.1.033031.3.579.2. 356 1971 Unknown [id number] 2.16.840.1.697321.3.579.2. 1285 1971 Unknown [id number] 2.16.840.1.814053.3.579.2. 1285 1971 Unknown [id number] 2.840.1.559019.3.579.2 1971 Unknown [id number] 2.840.1.480367.3.579.2 1971 Unknown [id number] 2.840.1.084516.3.579.2 1971 Unknown [id number] 2.16840.1.940490.3.579.2 1971 Unknown [id number] 2.840.1.288449.3.579.2 1971 Unknown [id number] 2.840.1.817058.3.579.2 1971 Unknown [id number] 2.840.1.545377.3.579.2 1971 Unknown [id number] 2.16.840.1.729009.3.579.2 1971 Unknown [id number] 2.16.840.1.777137.3.579.2 1971 Unknown [id number] 2.16.840.1.474685.3.579.2 1971 Unknown [id number] 2.16840.1.677286.3.579.2 1971 Unknown [id number] 2.16.840.1.082700.3.579.2. 727 1971 Unknown [id number] 2.16.840.1.029037.3.579.2. 727 1971 Unknown [id number] 2.16.840.1.275316.3.579.2. 727 1959 Medicaid [id number] Private Health Insurance [id number] Unknown [id number] Unknown [facility] PLAN Unknown [id number] Unknown [id number] 2.16.840.1.277817.3.579.2. 531 Unknown [id number] 2.16.840.1.422922.3.579.2. 531 Unknown [id number] 2.16.840.1.071874.3.579.2. 531 Unknown [id number] 2.16.840.1.991361.3.579.2. 531 Social History Date Type Detail Facility Tobacco smoking stat [facility] Unknown if ever smoked [facility] Start: 1970 Sex Assigned At Female F [facility] Illicit drug use Illicit drug use [facility] 250 DO Work Phone: Comment on above: 1 pack per daily.; Start: 05-26-2021 [facility] Sex Assigned At [facility] Start: 03-22-2023 End: 08-15-2024 Tobacco smoking status Light tobacco smoker (finding) [facility] Tobacco smoking status Never [facility] Sexual Orientation [facility] Start: 06-23-2018 End: 08-25-2024 Sex Female (finding) [facility] Start: 08-24-2024 Tobacco smoking stat us [facility]IS Smoker (finding) [facility] Medical Equipment Procedure Code Equipment Code Equipment Origin al Text Equipment Identifier Dates Thoracotomy Staple line-reinforcement strip ()[id number] FDA Start: 03-26-2021 Thoracotomy Surgical adhesive/sealant, human-derived ()[id number] FDA Start: 03-26-2021 Goals Date Patient Goal Desired Activity /State Functional Status Date Assessment Result Facility 08-15-2024 Functional Status N/A [facility] 02-16-2024 Functional Status N/A [facility] 10-14-2023 Functional Status N/A [facility] 09-13-2023 Functional Status No [facility] 08-10-2023 Functional Status N/A [facility] 03-22-2023 Functional Status No [facility] Clinical Notes 10-14-2022 to 08-24-2024 Note Date & Type Note Facility 08-24-2024 Evaluation note Diagnosis Onset Date Resolution Right foot strain noneactive August 12:38pm [facility] Work Phone: 1([phone]) 615-816205-13-2025 Evaluation + Plan note Future Scheduled Tests Radiology* NM Myocardial Spect Rest/Stress 1 Day 08/15/24 [facility] 02-19-2025 NoteSUBJECTIVE: Chief complaint: Postoperative visit for removal of L4-S1 hardware on 03/09/[address] Chavez. History of present illness: She reports that [...] spine completed today. 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 Review of systems: As in HPI. Past Medical History: Diagnosis Date Alcohol abuse Anxiety Bipolar disorder ([facility]) Chronic sinusitis Cocaine use 05/2023 COPD (chronic obstructive pulmonary disease) ([facility]) Coronary vasospasm Diverticulosis per CT 08/2023 Dyslipidemia Endometriosis Hypertension Spontaneous pneumothorax Vitamin D deficiency Past Surgical History: Procedure Laterality Date CARDIAC CATHETERIZATION 2020 COLONOSCOPY 2019 FOOT SURGERY Right 2022 HYSTERECTOMY endometriosis, partial hysterectomy LUMBAR FUSION LUMBAR SPINE HARDWARE REMOVAL 03/09/2024 Dr. Chavez THORACOSCOPY W/ TALC PLEURODESIS for spontaneous pneumothorax [...] 10 mg by m (more content not included)...[facility]01-09-2025 [facility] NoteSUBJECTIVE: Chief complaint: Postoperative visit for removal of L4-S1 hardware on 03/09/[address] Chavez. History of present illness: Reports that she [...] requesting to return to work as a shank faker. She states that her employer is able to work within her restrictions. Review of systems: As in HPI. Past Medical History: Diagnosis Date Alcohol abuse Anxiety Bipolar disorder ([facility]) Chronic sinusitis Cocaine use 05/2023 COPD (chronic obstructive pulmonary disease) ([facility]) Coronary vasospasm ([facility]) Diverticulosis per CT 08/2023 Dyslipidemia Endometriosis Hypertension Spontaneous pneumothorax Vitamin D deficiency Past Surgical History: Procedure Laterality Date CARDIAC CATHETERIZATION 2020 COLONOSCOPY 2019 FOOT SURGERY Right 2022 HYSTERECTOMY endometriosis, partial hysterectomy LUMBAR FUSION LUMBAR SPINE HARDWARE REMOVAL 03/09/2024 Dr. Chavez THORACOSCOPY W/ TALC PLEURODESIS for spontaneous pneumothorax [...] propylene glycol 99.5 % (not less than, MCC) liquid external solution, , Disp: , Rfl: oxyCODONE (Roxicodone) 10 mg immediate release tablet, Take 1 tablet (10 mg) by mouth if needed (more content not included)...[facility]12-13-2024 Hospital Discharge instructions Follow Up Care 03/17/2024 10:42:00 With:JAQUAN PATRICK, Alexandro Hernandez, URL Address: [facility] [address], [place] [address]- [phone] When: Unknown [facility] 12-06-2024 NoteAdvised by therapy pt requesting DME raised toilet seat and shower chair. Pt requested to use [facility] in [place] but they were out of network. Called around and found [employer] [facility] in [place] able to fulfill. Sent scripts/face to face and clinicals by fax and advised pt they will call when ready for pickup.[facility]12-06-2024 NoteOccupational Therapy Occupational Therapy Evaluation Patient Name: Isela [...] Primary hypertension Loosening of hardware in spine ([facility]) Back pain, lumbosacral Past Medical History: Diagnosis Date Alcohol abuse Anxiety Bipolar disorder ([facility]) Chronic sinusitis Cocaine use 05/2023 COPD (chronic obstructive pulmonary disease) ([facility]) Coronary vasospasm ([facility]) Diverticulosis per CT 08/2023 Dyslipidemia Endometriosis Hypertension Spontaneous pneumothorax Vitamin D deficiency Past Surgical History: Procedure Laterality Date CARDIAC CATHETERIZATION 2020 COLONOSCOPY 2019 FOOT SURGERY Right 2022 HYSTERECTOMY endometriosis, partial hysterectomy LUMBAR FUSION LUMBAR SPINE HARDWARE REMOVAL 03/09/2024 Dr. 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 [...] Independent Objective General Assess (more content not included)...[facility] 03-10-2024 Note03/10/24 1143 Admission Assessment Questions Verify insurance with patient Yes Do you understand medical disease or what brought you into the hospital? Yes Who is your current PCP? MAILING CLERK Jes Cruz Can I schedule a follow up appointment for you at the time of discharge? Yes Do you understand why you are taking your current medications? Yes Are you taking your medications as prescribed? Yes Did patient provide teach back? No Pharmacy Bedside Delivery Status Interested Does the patient have a rehabilitation case coordinator assigned to them through their insurance? No [...] able to send link and activate MyChart? [facility]Un[facility]12-06-2024 NoteClinical Therapist Brief Intervention Note Substance Intervention: Raise the Subject: [...] performing a brief intervention. Assessment completed by: MARI [facility]12-05-2024 NotePatient: Isela Craig Procedure Summary Date: 03/09/24 Room / Location: [facility] OPERATING ROOM 03 / [facility] Operating Room Anesthesia Start: 1237 Anesthesia Stop: 1454 Procedure: L4-S1 Removal of Hardware(Screws and Rods) Diagnosis: Loosening of hardware in spine (CMS/HCC) (Loosening of hardware in spine (CMS/HCC) [T84.498A]) Surgeons: León Chavez MD Responsible Provider: Marjorie Ravi MD Anesthesia [...] PACU per anesthesia protocol. No notable events documented.[facility]12-05-2024 Note Airway Date/Time: 03/09/2024 12:42 PM Urgency: elective General Information and Staff Patient location during procedure: OR Anesthesiologist: Marjorie Ravi MD Performed: resident/KNOCKUP WORKER/CAA Indications and Patient Condition Indications for airway [...] approach: 1 Number of other approaches attempted: 0UnMer[facility] 03-09-2024 NotePatient: Isela Craig Procedure Information Date/Time: 03/09/24 1200 Procedure: L4-S1 Removal of Hardware(Screws and Rods) - C-Arm, Open Ulisses Table, OBSERVATION, [employer] NOTIFIED 02/24 TaylaK Location: [facility] OPERATING ROOM 03 / [facility] Operating Room Surgeons: León Chavez MD Relevant Problems Cardio (+) Primary hypertension [...] (chronic obstructive pulmonary disease) (CMS/HCC) Coronary vasospasm ([facility]/HCC) Hypertension Spontaneous pneumothorax HYSTERECTOMY LUMBAR FUSION THORACOSCOPY [...] discussed with attending and resident. Additional Equipment RequestsCincinnati [facility] Center11-21-2024 Note SUBJECTIVE: Chief complaint: Preoperative visit for removal of L4-S1 hardware scheduled for 03/09/[address] Chavez. History of present illness: Patient had a [...] propylene glycol 99.5 % (not less than, MCC) liquid external (more content not included)...[facility]10-30-2024 NoteDr. Kathy case. Dx: spinal hardware complication. Procedure: Removal of hardware L4-S1--screws and rods. Time: 1.5-2 hours. Position: Prone on open Ulisses. Need: C arm. Is on aspirin--not sure who prescribes this for her, but would need clearance to stop.[facility]10-24-2024 NoteSUBJECTIVE: Chief complaint: Broken lumbar hardware. History of [...] or substantial relief. No longer on on tokia.lt for history of alcohol dependence. She does [...] mg by mouth in (more content not included)...[facility]10-23-2024 Hospital Discharge instructions Follow Up Care 01/26/2024 14:28:39 With:JAQUAN PATRICK, Alexandro Hernandez, URL Address: [facility] [address], [place] [address] [phone] When: Unknown [facility] 09-10-2024 NoteSUBJECTIVE: Chief complaint: Broken lumbar hardware. History of [...] AT BEDTIME, Disp: , (more content not included)...[facility] 10-14-2023 Hospital Discharge instructions Patient Education 10/14/2023 13:20:32 Urethral Vaginal Sling Urethral Vaginal Sling A urethral vaginal sling procedure is surgery to correct urinary incontinence. Urinary incontinenceis passing urine without one's control. It is [...] including vitamins, herbs, eye drops, creams, and luyv-zar-jviyfru medicines. Any problems you or family members [...] provider tells you to take them. Taking wucd-gtu-ziobbuf medicines, vitamins, herbs, and supplements. Surgery safety [...] for at least 4 weeks before the procedure.These products include cigarettes, chewing tobacco, and vaping [...] neck and stitched (sutured) to the muscles tohold the urethra in its normal position. The incisions will then be closed with sutures. The procedure may vary among health care providers and hospitals. What happens after the procedure? Your blood pressure, heart rate, breathing rate, and blood oxygen level will be monitored until youleave the hospital or clinic. You will have a catheter in place to drain your bladder. This will stay in place until your bladderis working properly on its own. You may [...] provider. Document Revised: 10/25/2020 Document Reviewed: 10/25/2020 [employer] Patient Education 2022 [employer] Follow Up Care 10/05/2023 10:22:18 With:[facility] Address: [facility] [place] [address] Business (1) When: Unknown Comments:for procedure as scheduled [facility] 07-11-2024 NotePatient Education Obstetrics and Gynecology Urethral Vaginal Sling A urethral vaginal sling procedure is surgery to correct urinary incontinence. Urinary incontinenceis passing urine without one's control. It is [...] including vitamins, herbs, eye drops, creams, and kbzb-fgz-ficbqoz medicines. ? Any problems you or family [...] provider about the options you have for slingmaterial and the risks associated with each material. [...] tells you to take them. ? Taking pqjx-kuz-jfspgpy medicines, vitamins, herbs, and supplements. Surgery safety [...] place until your bladder works properly on itsown again. This information is not intended to replace (more content not included)...[facility]05-07-2024 Evaluation + Plan note Diagnostic Tests Pending * Urine Cytology ([facility]) 08/10/23 [facility]05-07-2024 Hospital Discharge instructions Patient Education 08/10/2023 10:50:02 [...] health care provider if you have any questionsor concerns. How do I get ready to [...] require a prescription. You can also purchase bzjv-hjb-pmdrxnl medicines. Medicines may have nicotine in them [...] and encouragement. Call telephone quitlines, such as 0-186-TBWJ-NOW, reach out to support groups, or work [...] provider. Document Revised: 03/13/2022 Document Reviewed: 03/13/2022 [employer] Patient Education 2022 [employer] 08/10/2023 10:11:31 Cystoscopy Cystoscopy Cystoscopy is [...] including vitamins, herbs, eye drops, creams, and anla-lif-wkvlbqs medicines. Any problems you or family members [...] provider tells you to take them. Taking akpb-qhl-hohjnkm medicines, vitamins, herbs, and supplements. Tests You [...] Follow these instructions at home: Medicines Take qeyp-drq-bmzyhrh and prescription medicines only as told by your health care provider. If you were prescribed an antibiotic medicine, take it as told by your health care provider. Do notstop taking the antibiotic even if you start [...] blood in your urine increases, call your healthcare provider. Follow instructions from your health care provider about eating or drinking restrictions. If a tissue sample was removed for testing (biopsy) during your procedure, it is up to you to get your test results. Ask your health care provider, or the department that is doing the test, when yourresults will be ready. Drink enough fluid to [...] blood in your urine increases, call your healthcare provider. If you were prescribed an antibiotic medicine, take it as told by your health care provider. Do notstop taking the antibiotic even if you start to feel better. This information is not intended to replace advice given to you by your health care provider. Make sure you discuss any questions you have with your health care provider. Document Revised: 12/03/2021 Document Reviewed: 11/01/2020 [employer] Patient Education 2022 [employer]. Follow Up Care 04/30/2023 12:48:57 With:ELSA MOSES, JES Akhtar, URL Address: [address] [place] [address] [phone] When: Unknown [facility] 09-12-2023 Evaluation note* Encounter Date Diagnosis Assessment Notes Treatment Notes Treatment Clinical Notes Dec, Sore throat (ICD-10 - J02.9) [...] fluids and rest, Tylenol as directed for discomfort/fever, warm moist compress over sinuses several times a day, cool mist humidification, nasal saline spray as directed. Symptoms should improve in the next 3 days, if symptoms persist follow up with PCP. Immediate eval for warning s/sx as discussed. Patient verbalizes understanding and is agreeable to treatment plan [facility] Other 07-12-2023 Evaluation note* Encounter Date Diagnosis [...] - Z20.822) Oct, Bronchitis (ICD-10 - J40) [facility] Other Evaluation + Plan note Future Appointments Appointment Date:05/13/2023 03:45:00 PM Scheduled Provider:Ramone Garcia MD [facility] Type:Cardiology Follow Up (FT) Future Scheduled Tests Radiology* NM Myocardial Spect Rest/Stress 1 Day 03/22/23 * Echo Transthoracic Complete [facility]23 [facility] Future Appointments Appointment Date:05/13/2023 03:45:00 PM Scheduled Provider:Ramone Garcia MD [facility] Type:Cardiology Follow Up ([facility]) [facility] Future Appointments Appointment Date:09/27/2023 09:30:00 AM Scheduled Provider: Location:[facility] Appointment Type:Urology CALL PAT FT Appointment Date:10/05/2023 09:00:00 AM Scheduled Provider: Location:[facility] Appointment Type:Urology FT Appointment Date:12/13/2023 01:00:00 PM Scheduled Provider:Roosevelt Sotelo PA-C [facility] Type:Cardiology Follow Up (FT) Future Scheduled Tests Radiology* US Carotid Duplex Bilateral 09/14/23 [facility] Future Appointments Appointment Date:10/14/2023 12:40:00 PM Scheduled Provider:JES ROLLE PA-C Location:[facility] Appointment Type:URO Complex Office Visit Appointment Date:12/13/2023 01:00:00 PM Scheduled Provider:Roosevelt Sotelo PA-C Location:[facility].Cardiology Clinic Appointment Type:Cardiology Follow Up (FT) Future Scheduled Tests Radiology* US Carotid Duplex Bilateral 09/14/23 [facility] Future Appointments Appointment Date:11/26/2023 09:30:00 AM Scheduled Provider: Location:[facility] Appointment Type:URO Nurse Visit Appointment Date:12/13/2023 01:00:00 PM Scheduled Provider:Roosevelt Sotelo PA-C Location:[facility].Cardiology Clinic Appointment Type:Cardiology Follow Up (FT) Appointment Date:12/13/2023 01:45:00 PM Scheduled Provider:Alexandro PARTIDA MD Location:[facility] Appointment Type:URO Office Visit Future Scheduled Tests Radiology* US Carotid Duplex Bilateral 09/14/23 [facility] evaluation + Plan note Future Appointments Appointment Date:02/21/2024 02:30:00 PM Scheduled Provider:Roosevelt Sotelo PA-C Location:[facility] Appointment Type:Cardiology Follow Up (FT) [facility] evaluation + Plan note Future Appointments Appointment Date:02/16/2024 09:30:00 AM Scheduled Provider:Roosevelt Sotelo PA-C Location:[facility] Appointment Type:Cardiology Follow Up (FT) Appointment Date:02/18/2024 08:30:00 AM Scheduled Provider: Location:[facility] Appointment Type:URO Nurse Visit Appointment Date:03/06/2024 09:00:00 AM Scheduled Provider:Alexandro PARTIDA MD Location:[facility] Appointment Type:URO Office Visit [facility] evaluation + Plan note Future Appointments Appointment Date:02/18/2024 08:30:00 AM Scheduled Provider: Location:[facility] Appointment Type:URO Nurse Visit Appointment Date:03/06/2024 09:00:00 AM Scheduled Provider:Alexandro PARTIDA MD Location:[facility] Appointment Type:URO Office Visit Appointment Date:08/15/2024 09:30:00 AM Scheduled Provider:Roosevelt Sotelo PA-C Location:[facility] Appointment Type:Cardiology Follow Up (FT) [facility] Evaluation + Plan note Future Appointments Appointment Date:03/06/2024 09:00:00 AM Scheduled Provider:Alexandro PARTIDA MD Location:[facility] Appointment Type:URO Office Visit Appointment Date:08/15/2024 09:30:00 AM Scheduled Provider:Roosevelt Sotelo PA-C Location:[facility] Appointment Type:Cardiology Follow Up (FT) [facility] evaluation + Plan note Future Appointments Appointment Date:08/15/2024 09:30:00 AM Scheduled Provider:Roosevelt Sotelo PA-C Location:[facility] Appointment Type:Cardiology Follow Up (FT) [facility] evaluation + Plan note Future Appointments Appointment Date:04/10/2024 10:00:00 AM Scheduled Provider:JES ROLLE PA-C Location:[facility] Appointment Type:URO Office Visit Appointment Date:08/15/2024 09:30:00 AM Scheduled Provider:Roosevelt Sotelo PA-C Location:[facility] Appointment Type:Cardiology Follow Up (FT) [facility] evaluation + Plan note Future Appointments Appointment Date:09/27/2024 09:30:00 AM Scheduled Provider:Roosevelt Sotelo PA-C Location:[facility] Appointment Type:Cardiology Follow Up (FT) Future Scheduled Tests Radiology* NM Myocardial Spect Rest/Stress 1 Day 08/15/24 [facility] Evaluation noteNo assessment information available [facility] Work Phone: History general Narrative - Reported* Type Description Date Surgical History hysterectomy Surgical History lumbar TiVUS Other History of Present illness Narrative* The [...] medication regimen. She denies medication side effects. [facility] [address] DO Work Phone: Hospital course Narrative No data available for this section [facility] No data available for this section [facility] No data available for this section [facility] Assessments No Assessments Information Available [...] dyspnea. * Patient was recently hospitalized at [facility]. The patient was seen in Cardiology consult with subsequent cardiovascular management by [facility]. Hospitalization records have been reviewed. * Reason for Cardiology Consultation: chest pain (presented with spontaneous PTX) * Consulting Telephone Order Supervisor: Dr. Lopez * Cardiovascular testing: cardiac [...] evaluation. * Last week she presented to [facility] due to chest pain and dizziness. [...] and fluttering . 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 Due to blood pressure and palpitations will resume prior dose of diltiazem, symptoms have been quiescent with that treatment. She is in agreement to proceed with treatment plan as outlined. Chief Complaint and Reason for Visit Chief Complaint Other chest pain Oth er chest pain;Primary hyperten Chief Complaint R23.2-pass Chief Complaint R23.2-pass G62.9 M54.50 T84.216A M47.816 Chief Complaint Admit Date Right foot injury, tripped and fell last week August 24, 2024 12:38pm Reason for Visit Admit Date Right foot strain August 24, 2024 12:38 pm Advance Directives Advance Directive Response Recorded Date/ Time Advance Directives No January 05, 2019 3:54pm Summary Purpose Additional Source Comments Care Teams (unrecognized sec tion and content) Personnel Name: JES CRUZ CNP Address: [address] [place] [id number] Telecom: Team Status: Active Member Role Status Dates PHYSICIAN NO FAMILY Primary Care Provider Active Team Status: Inactive Member Role Status Dates PHYSICIAN NO FAMILY Primary Care Provider Active Jes Cruz MAILING CLERK-C Attending Provide r Active Team Status: Active Member Role Status Dates Jes Cruz NP-C Primary Care Prov ider Active Team Status: Inactive Member Role Status Dates Jes Cruz NP-C Primary Care Provider, Attending Provider Active Start: November 01, 2023 End: November 01, 2023 Team Status: Active Member Role Status Dates Jes worrell MAILING CLERK-C Primary Care Provider Active Start: September 10 Ronaldo Ty DO Attending Provider Active Sta rt: September 11, 2023 Team Status: Active Member Role Status Dates Jes worrell MAILING CLERK-C Primary Care Provider Active Start: October 11 024 Ronaldo Ty DO Attending Provider Active Sta rt: October 12, 2023 Team Status: Inactive Member Role Status Dates Jes Cruz NP-C Primary Care Provider, Attending Provider Active Start: December 02, 2023 End: December 02, 2023 Team Status: Inactive Member Role Status Dates Jes worrell MAILING CLERK-C Primary Care Provider Active Start: August 24, End: August 24, 2024 Loretta Javier APRN Attending Provider Active Start: August 24, 2024 End: August 24, 2024 Team Status: Active Member Role Status Dates Jes Natasha Richardso n , MAILING CLERK-C Primary Care Provider Active Start: August 24 Loretta Javier APRN Attending Provider Active Start: August 24, 2024 Goals (unrecognized section and content) Goals may [...] CREATED AUTHOR AUTHOR'S ORGANIZ ATION 07/29/2022 [facility] DATE CREATED AUTHOR AUTHOR'S ORGANIZ ATION 08/16/2022 [facility] DATE CREATED AUTHOR AUTHOR'S ORGANIZ ATION 09/19/2023 [facility] DATE CREATED AUTHOR AUTHOR'S ORGANIZ ATION 10/21/2023 [facility] DATE CREATED AUTHOR AUTHOR'S ORGANIZ ATION 05/29/2024 [facility] DATE CREATED AUTHOR AUTHOR'S ORGANIZ ATION 08/17/2024 [facility] DATE CREATED AUTHOR AUTHOR'S ORGANIZ ATION 09/07/2024 [facility] REASON FOR VISIT (unrecogniz ed section and [...] BE BASED ON THE PRIMARY CLINICAL RECORDS. [employer] [facility] [facility]. provides no warranty or guarantee of the accuracy or completeness of information in this document.
--- NOTE | 2024-12-13 19:22 | ECG_ITS ---
[facility] Test Date: 2024-12-13 Pat Name: MEGHANA KEY Department: Room: - Gender: Female Cat Tender: : 1970 Requested By: Demetrio Chris Order Number: [id number] Reading MD: MAXIME CHEN Measurements Intervals [place] Rate: 70 P: 54 PA: 182 QRS: 59 QRSD: 76 T: 67 QT: 398 QTc: 419 Interpretive Statements 1100 Sinus rhythm 9110 normal ECG Compared to ECG 12/15/2023 13:05:18 Sinus bradycardia no longer present Electronically Signed On 12-14-2024 14:06:19 EDT by MAXIME CHEN
--- NOTE | 2024-12-13 20:24 | XR_ITS ---
The [address] [address] Patient Name: MEGHANA KEY MRN: [id number] date: 1970 Sex: F Assigned Patient Location: ER Current Patient Location: Accession/Order Number: [id number] Exam Date: 12/13/2024 20:26 Report Date: 12/13/2024 21:25 At the request of: JANELLE CASE Procedure: XR chest 2V PA AND LATERAL CHEST: CLINICAL HISTORY: left chest pain COMPARISON: 10/12/2023 FINDINGS: Unremarkable cardiomediastinal. Lungs clear. No effusion or pneumothorax. Chronic areas scarring right upper lung. XR/XR chest 2V IMPRESSION: NO ACUTE CARDIOPULMONARY ABNORMALITY. Impression dictated by: Derrick Torres M.D. 12/13/2024 9:25 PM Dictation Location: [place] [address] Electronically authenticated by: [id number] Y Date: 12/13/2024 21:25
--- NOTE | 2024-12-13 20:49 | PC.NURSE ---
this patient complains of left side neck pain and swelling onset 3 days ago. plus complains of on and off chest pain which started while at work 3 hours ago. at this time this patient denies any chest pain. this patient voices no other complains, and shows no signs of distress
--- NOTE | 2024-12-13 20:57 | ED.CHESTPAI1 ---
HPI - Chest Pain General Chief Complaint: Chest Pain Stated Complaint: CHEST PAINS, PAIN IN JAW AND NECK Time Seen by Provider: 12/13/24 19:10 Source: patient Mode of arrival: walk-in Limitations: no limitations History of Present Illness HPI narrative: cc - left lower neck lymph node and left sided chest pain About 3 days ago the patient noted prominent and tender lymph node at the lateral aspect of her lower neck on the left. On questioning she admitted that she has also had nasal congestion and runny nose. She denied any ear pain or sore throat. No fever. No cough. She says that the pain does not really respond to Tylenol or ibuprofen. She was concerned about what this might be. She also told me that she has been having transient -maybe lasting 1 or 2 seconds -pain in the anterior left chest just below the left clavicle. She has prior history of right sided pneumothorax -I actually saw her for that -and continues to see a infusion rn locally after she had her chest tube removed following hospitalization. She also had a negative heart catheterization at that time -she told me there was no blockage and no stents were placed. She denied any recent injury to that part of the chest. She denied any increased activity associate with that part of the chest. She is a smoker. She does admit to increased number of hours of work per week -60-70 hrs per week -and asked me if I thought it might be stress related. The left chest pain is worse with deep breaths and movement of the upper extremities and torso. An EKG was performed by the triage nurse and it is normal. See below. Related Data Home Medications ?Medication ?Instructions ?Recorded ?Confirmed isosorbide mononitrate 30 mg 30 mg PO DAILY 04/28/23 05/04/24 tablet,extended release 24 hr sertraline 100 mg tablet 150 mg PO DAILY 04/28/23 05/04/24 aripiprazole 10 mg tablet 10 mg PO DAILY 02/09/24 05/04/24 atorvastatin 40 mg tablet 40 mg PO DAILY 02/09/24 05/04/24 gabapentin 600 mg tablet 600 mg PO BID 02/09/24 05/04/24 melatonin 10 mg tablet 10 mg PO DAILY 02/09/24 05/04/24 naloxone 4 mg/actuation nasal spray 4 mg intranasal Q3M PRN opioid 11/06/24 01/30/25 overdose omeprazole 20 mg capsule,delayed 20 mg PO DAILY 02/09/24 05/04/24 release prazosin 2 mg capsule 2 mg PO QPM 02/09/24 05/04/24 propranolol 10 mg tablet 10 mg PO Q12H 02/09/24 05/04/24 Previous Rx's ?Medication ?Instructions ?Recorded aspirin 81 mg tablet,delayed 81 mg PO BID 30 days #60 tabs 05/03/23 release (Adult Low Dose Aspirin) cholecalciferol (vitamin D3) 125 125 mcg PO DAILY 90 days #90 caps 05/03/23 mcg (5,000 unit) capsule cephalexin 500 mg capsule 500 mg PO BID 7 days #14 caps 02/17/24 cephalexin 500 mg capsule 500 mg PO Q8H 7 days #21 caps 04/30/24 diclofenac sodium 75 mg 75 mg PO BID PRN pain #14 tabs 04/30/24 tablet,delayed release hydrocodone 5 mg-acetaminophen 325 1 tab PO Q6H PRN pain 3 days #12 05/04/24 mg tablet tabs methocarbamol 750 mg tablet 750 mg PO TID PRN pain #20 tabs 05/04/24 methylprednisolone 4 mg tablets in See Rx Instructions .Route 05/04/24 a dose pack (Medrol ([place])) .COMPLEX #21 ea prednisone 20 mg tablet 40 mg (2 x 20 mg) PO DAILY #7 tabs 06/18/24 methocarbamol 750 mg tablet 750 mg PO Q6H PRN pain #30 tabs 12/13/24 Allergies Allergy/AdvReac Type Severity Reaction Status Date / Time codeine Allergy Hives Verified 12/13/24 19:11 [facility] Medical History (Updated 12/13/24 @ 21:05 by Demetrio Chris) History of blood transfusion (2020) ?Z92.89 - Personal history of other medical treatment (ICD-10) Stress incontinence ?N39.3 - Stress incontinence (female) (male) (ICD-10) Constipation ?K59.00 - Constipation, unspecified (ICD-10) Arthritis ?M19.90 - Unspecified osteoarthritis, unspecified site (ICD-10) Back pain ?M54.9 - Dorsalgia, unspecified (ICD-10) Anemia ?D64.9 - Anemia, unspecified (ICD-10) Depression ?F32.A - Depression, unspecified (ICD-10) Anxiety ?F41.9 - Anxiety disorder, unspecified (ICD-10) COVID-19 ?U07.1 - COVID-19 (ICD-10) Electronic cigarette use ?Z78.9 - Other specified health status (ICD-10) Chronic obstructive pulmonary disease ?J44.9 - Chronic obstructive pulmonary disease, unspecified (ICD-10) GERD (gastroesophageal reflux disease) ?K21.9 - Gastro-esophageal reflux disease without esophagitis (ICD-10) Dyspnea on exertion ?R06.09 - Other forms of dyspnea (ICD-10) Irregular heart beat ?I49.9 - Cardiac arrhythmia, unspecified (ICD-10) Coronary artery disease ?I25.10 - Atherosclerotic heart disease of resighini coronary artery without angina pectoris (ICD-10) Hypertension ?I10 - Essential (primary) hypertension (ICD-10) Hallux rigidus ?M20.20 - Hallux rigidus, unspecified foot (ICD-10) Hallux valgus ?M20.10 - Hallux valgus (acquired), unspecified foot (ICD-10) Palpitation ?R00.2 - Palpitations (ICD-10) Costochondritis ?M94.0 - Chondrocostal junction syndrome [[place]ze] (ICD-10) Coronary vasospasm ?I20.1 - Angina pectoris with documented spasm (ICD-10) Spontaneous pneumothorax (03/2021) ?J93.83 - Other pneumothorax (ICD-10) Admission for pleural drainage tube placement ?Z46.82 - Encounter for fitting and adjustment of non-vascular catheter (ICD-10) Surgical History (Updated 11/12/23 @ 08:54 by Harleen Holden NP) H/O foot surgery (05/03/23) ?Z98.890 - Other specified postprocedural states (ICD-10) History of cardiac catheterization ?Z98.890 - Other specified postprocedural states (ICD-10) History of foot surgery ?Z98.890 - Other specified postprocedural states (ICD-10) History of spinal surgery ?Z98.890 - Other specified postprocedural states (ICD-10) History of hysterectomy ?Z90.710 - Acquired absence of both cervix and uterus (ICD-10) Family History (Updated 03/05/23 @ 13:50 by Harleen Holden NP) Other Family history of DVT Family history of hypertension Family history of liver cancer Family history of myocardial infarction Family history of stroke Social History Within the past year, how often did you have a drink containing alcohol: never Score interpretation: A score less than 3 is consistent with normal alcohol consumption. 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 afebrile General: Well-appearing and in no apparent distress. Skin: Warm, dry, no pallor noted. No rash. Head: Normocephalic, atraumatic. Neck: Supple, no meningismus. Focal single tender lymph node at the inferior portion of the neck on the left side anterior to the trapezius. No associated erythema, warmth or other skin changes Eye: Pupils are equal, round and EOMI. No scleral icterus. Ears, Nose, Mouth, and Throat: Oral mucosa is moist Cardiovascular: Regular Rate and Rhythm without murmur, gallop or rub. Respiratory: No accessory muscle use or respiratory distress. Lungs are clear to auscultation, no wheezing, rales or rhonchi Chest Wall: Mild chest wall tenderness on the left just inferior to the clavicle. This does not fully reproduce the patient's symptoms, which are pleuritic. Musculoskeletal: normal ROM, no calf or popliteal tenderness, no lower extremity edema/swelling Neurological: A&O x4. No cranial nerve dysfunction observed. No truncal ataxia. Moves all extremities. Sensation intact. Psychiatric: Cooperative and interactive. Normal mood and affect. Constitutional Vital Signs, click to edit/add: Last Vital Signs Temp 98.2 F 12/13/24 19:13 Pulse 80 12/13/24 19:13 Resp 16 12/13/24 19:13 BP 141/68 09/10/25 19:13 Pulse Ox 99 12/13/24 19:13 O2 Del Method Room Air 12/13/24 19:13 Course Vital Signs Vital signs: Vital Signs Temperature 98.2 F 12/13/24 19:13 Pulse Rate 80 12/13/24 19:13 Respiratory Rate 16 12/13/24 19:13 Blood Pressure 141/68 12/13/24 19:13 Pulse Oximetry 99 12/13/24 19:13 Oxygen Delivery Method Room Air 12/13/24 19:13 Temperature 98.2 F 12/13/24 19:13 Pulse Rate 80 12/13/24 19:13 Respiratory Rate 16 12/13/24 19:13 Blood Pressure 141/68 12/13/24 19:13 Pulse Oximetry 99 12/13/24 19:13 Oxygen Delivery Method Room Air 12/13/24 19:13 MDM - Chest Pain MDM Narrative Medical decision making narrative: EKG was obtained by the triage nurse and is normal. Please see below. 2 view chest x-ray was also obtained and is unremarkable. Patient declined offer for blood testing. She was more concerned about the lymph node than the chest pains. We discussed the exam finding and her recent URI symptoms -I informed her that this appears to be lymphadenopathy associated with her mild URI. However, I told her, it should be monitored because of her smoking history and she was encouraged to see her primary care physician if this did not resolve within a week or 2. She already has an appoint with her infusion rn tomorrow. Her pain appears to be pleuritic in nature. We discussed the use of ibuprofen for this pain. She declined offer for blood testing but will keep her appointment with the infusion rn and if they decide to send her back for additional tests, she told me that she would comply. Patient discharged home and reasons to return were discussed. Heart score could not be determined the patient refused blood draw Imaging Data Chest x-ray: My impression: No pneumothorax, infiltrate, effusion or consolidation were noted. No acute cardiopulmonary disease. There is some scarring noted in the right pleural cavity. ECG Data Attestation: I personally reviewed and interpreted this ECG as follows: Interpretation: EKG interpretation: Emergency Department physician interpretation. Normal sinus rhythm at 70bpm. Normal axis, normal intervals and no ST segment elevation or depression. Normal EKG. Heart Score History: Slightly/Non-Suspicious ECG: Normal Age: >45-<65 years Risk Factors: 1 or 2 Risk Factors Discharge Plan Discharge Chief Complaint: Chest Pain Clinical Impression: Cervical lymphadenopathy, Pleurisy Patient Disposition: Home, Self-Care Time of Disposition Decision: 21:05 Prescriptions / Home Meds: New methocarbamol 750 mg tablet 750 mg PO Q6H PRN (Reason: pain) Qty: 30 0RF No Action cephalexin 500 mg capsule 500 mg PO Q8H 7 Days Qty: 21 0RF diclofenac sodium 75 mg tablet,delayed release (DR/EC) 75 mg PO BID PRN (Reason: pain) Qty: 14 0RF prednisone 20 mg tablet 40 mg PO DAILY Qty: 7 0RF isosorbide mononitrate 30 mg tablet extended release 24 hr 30 mg PO DAILY sertraline 100 mg tablet 150 mg PO DAILY aspirin [Adult Low Dose Aspirin] 81 mg tablet,delayed release (DR/EC) 81 mg PO BID 30 Days Qty: 60 0RF cholecalciferol (vitamin D3) 125 mcg (5,000 unit) capsule 125 mcg PO DAILY 90 Days Qty: 90 0RF aripiprazole 10 mg tablet 10 mg PO DAILY atorvastatin 40 mg tablet 40 mg PO DAILY gabapentin 600 mg tablet 600 mg PO BID melatonin 10 mg tablet 10 mg PO DAILY naloxone 4 mg/actuation spray,non-aerosol 4 mg INTRANASAL Q3M PRN (Reason: opioid overdose) omeprazole 20 mg capsule,delayed release(DR/EC) 20 mg PO DAILY prazosin 2 mg capsule 2 mg PO QPM propranolol 10 mg tablet 10 mg PO Q12H cephalexin 500 mg capsule 500 mg PO BID 7 Days Qty: 14 0RF hydrocodone-acetaminophen 5-325 mg tablet 1 tab PO Q6H PRN (Reason: pain) 3 Days Qty: 12 0RF Rx Instructions: DX: M54.5 methocarbamol 750 mg tablet 750 mg PO TID PRN (Reason: pain) Qty: 20 0RF methylprednisolone [Medrol ([place])] 4 mg tablets,dose pack See Rx Instructions .ROUTE .COMPLEX Qty: 21 0RF Rx Instructions: Taper as directed Print Language: Kuwaiti Instructions: Pleurisy (ED), Lymphadenopathy (ED) Referrals: Jes Cruz HATCHERY HELPER [Primary Care Provider] - 1 week
[2024-12-13 21:14] VITALS: BP 108/68; PULSE 65; TEMP 36.7; O2SAT 98
--- NOTE | 2024-12-13 21:18 | PC.NURSE ---
i gave this patient verbal and written discharge orders along with 1 e-script and this patient voices yes to understanding these. at time of discharge this patient voices no concerns, needs and shows no signs of distress
== END 2024-12-13 21:17 | disposition home or self-care (01) ==
PROVIDERS: Emergency Provider Emergency Medicine; PCP Nurse Practitioner Family
DX: R09.1 Pleurisy (principal); R59.1 Generalized enlarged lymph nodes; F17.210 Nicotine dependence, cigarettes, uncomplicated
CPT/HCPCS: 71046; 93005; 99283